=== PATIENT | male | born 1960 | race Caucasian/White ===

== ENCOUNTER 2022-07-26 19:44 | Inpatient (IN) | payer BC, SELFPAY ==
[2022-07-26 19:58] VITALS: BP 134/86; PULSE 89; RESP 22; TEMP 36.6; O2SAT 95; BMI 26.0
--- NOTE | 2022-07-26 20:28 | XR_ITS ---
The [address] [address] Patient Name: BOBBY GRAJEDA MRN: [id number] date: 1960 Sex: M Assigned Patient Location: ER Current Patient Location: ER Accession/Order Number: [id number] Exam Date: 07/26/2022 20:29 Report Date: 07/26/2022 21:38 At the request of: BRENNON MOBLEY Procedure: XR chest 1V EXAM: XR chest 1V HISTORY: Altered mental status COMPARISON: 06/19/2021 TECHNIQUE: Frontal view of the chest. FINDINGS: There is a left upper lobe opacity measuring approximately 2.6 cm. This appears larger since the prior study where it measured approximately 1.8 cm. No pleural effusions. Cardiac mediastinal silhouette is unremarkable. Visualized osseous structures are unremarkable. IMPRESSION: Left upper lobe opacity which has increased in size since the prior study and may represent a pulmonary mass. Further evaluation with chest CT is recommended. Electronically authenticated by: ABEL LUU Date: 07/26/2022 21:38
--- NOTE | 2022-07-26 20:28 | ECG_ITS ---
The [facility] Test Date: 2022-07-26 Pat Name: BOBBY GRAJEDA Department: Room: - Gender: Male [place]: : 1960 Requested By: BELINDA JONES Order Number: [id number] Reading MD: NAYA COYLE Measurements Intervals [place] Rate: 90 P: 245 MT: 120 QRS: 67 QRSD: 92 T: -80 QT: 350 QTc: 398 Interpretive Statements 1002 Marked rhythm irregularity, possible non-conducted PAC, SA block, AV block, or sinus pause 1220 Rapid atrial rhythm 1570 with occasional ventricular premature complexes [address] depression 4564 Twave abnormality, possible lateral ischemia 4664 Twave abnormality, possible inferior ischemia 9150 abnormal ECG No previous ECG available for comparison Electronically Signed On 07-26-2022 22:54:19 EDT by NAYA COYLE
--- NOTE | 2022-07-26 20:28 | CT_ITS ---
The [address] [address] Patient Name: BOBBY GRAJEDA MRN: [id number] date: 1960 Sex: M Assigned Patient Location: ER Current Patient Location: ER Accession/Order Number: [id number] Exam Date: 07/26/2022 20:29 Report Date: 07/26/2022 21:45 At the request of: BRENNON MOBLEY Procedure: CT stroke head/brain wo con EXAMINATION: CT stroke head/brain wo con, 07/26/2022 8:29 PM EDT HISTORY: slurred speech COMPARISON: CT brain 06/19/2021. TECHNIQUE: CT scan of the head was performed without IV contrast. CT dose reduction technique was used, including Automated Exposure Control. FINDINGS: BRAIN PARENCHYMA/CSF SPACES: The ventricles and sulci appear moderately to severely prominent consistent with atrophy which appears advanced for age. There is no hemorrhage, mass effect or midline shift. Moderate atherosclerotic carotid artery calcification. Mild low-attenuation in the white matter consistent with chronic microvascular ischemia. Small hypodensities in bilateral basal ganglia suggestive of dilated perivascular spaces and/or chronic lacunar infarcts, stable. PARANASAL SINUSES: Mild fluid in the right ethmoid air cells consistent with sinusitis. SKULL BASE AND CALVARIUM: Normal. EXTRACRANIAL SOFT TISSUES: Normal. IMPRESSION: 1. No acute intracranial abnormality. 2. Moderate to severe age advanced atrophy. 3. Atherosclerotic calcification and chronic microvascular ischemia. 4. Stable small bilateral basal ganglia dilated perivascular spaces and/or chronic lacunar infarcts. 5. Mild ethmoid sinusitis. Electronically authenticated by: LEIGH CHAMPION Date: 07/26/2022 21:45
--- NOTE | 2022-07-26 20:30 | ED.WEAKNESS1 ---
HPI - Weakness General Chief complaint: Weakness Stated complaint: weakness, not eating Time Seen by Provider: 07/26/22 20:03 Source: patient and family Mode of arrival: walk-in Limitations: no limitations History of Present Illness HPI Narrative: Patient is a 62-year-old male who presents to the emergency department for the evaluation of generalized weakness over the last several weeks with decreasing oral intake, and slurred speech noted by family in the last several days. Patient has a history of daily alcohol consumption. He denies any falls or injuries. He denies any chest pain, shortness breath, fevers, chills, congestion. He has had decreased oral intake and states nothing tastes good . He has also had a film in the roof of his mouth for some time. He denies any urinary symptoms although family reports he does not eat or drink well. He denies headache, visual changes. Patient does not believe that his speech is slurred. He has had no unilateral weakness but states his extremities feel generally weak and he is having trouble walking, family states he is unsteady. Related Data Home Medications Medication Instructions Recorded Confirmed metoprolol succinate 50 mg 50 mg PO BID 07/26/22 07/26/22 tablet,extended release 24 hr Allergies Allergy/AdvReac Type Severity Reaction Status Date / Time No Known Drug Allergies Allergy Verified 07/26/22 20:07 Review of Systems ROS Constitutional Denies: fever or chills Eyes Denies: change in vision Ears, nose, mouth, and throat Reports: dry mouth and bad breath Cardiovascular Denies: chest pain Respiratory Reports: cough; Denies: shortness of breath Gastrointestinal Denies: abdominal pain, nausea or vomiting Genitourinary Reports: decreased urine ouput Integumentary/Breast Reports: rash Neurological Denies: headache PFSH PFSH Social History Smoking status: Current every day smoker Exam Narrative Exam Narrative: Gen.: Awake, alert, in no distress Head: Normocephalic, atraumatic ENT: Moist mucous membranes Respiratory: No respiratory distress, lungs clear bilaterally Cardio: Regular rate and rhythm Gastrointestinal: Abdomen is soft, nondistended and nontender to palpation Extremities: Moves extremities equally, no injuries noted Psych: Normal mood and affect Neuro: No focal neuro deficit, generally weak but no pronator drift noted. Left eyelid drooping noted that is chronic for the patient and not new or worse Skin: Warm, dry, intact Constitutional Vital Signs - 24 hr 07/26/22 19:58 07/26/22 21:04 Temperature 97.8 F Pulse Rate [Monitor] 89 78 Respiratory Rate 22 22 Blood Pressure [Left Arm] 134/86 H 135/80 H Pulse Oximetry 95 94 L Oxygen Delivery Method Room Air Room Air Course Vital Signs Vital signs: Vital Signs Temperature 97.8 F 07/26/22 19:58 Pulse Rate 89 07/26/22 19:58 Respiratory Rate 22 07/26/22 19:58 Blood Pressure 134/86 H 07/26/22 19:58 Pulse Oximetry 95 07/26/22 19:58 Oxygen Delivery Method Room Air 07/26/22 19:58 Temperature 97.9 F 07/26/22 23:59 Pulse Rate 92 H 07/27/22 00:00 Respiratory Rate 14 07/26/22 23:59 Blood Pressure 129/82 H 07/26/22 23:59 Pulse Oximetry 92 L 07/26/22 23:59 Oxygen Delivery Method Room Air 07/26/22 23:59 MDM - Weakness MDM Narrative Medical decision making narrative: Patient was treated with IV fluids in the Emergency Room, he was ordered to have a CT of the brain, chest x-ray as well as lab and urine studies. EKG shows artifact with no obvious acute process. As labs were resulting, patient was noted to have several significant electrolyte abnormalities with a potassium of 1.3, calcium 5.7 and chloride eighty-one. The potassium was repeated to verify and is accurate. Patient was treated with oral potassium, K-Lyte. He was also given IV potassium, IV calcium and IV magnesium. CT of the brain is unremarkable, chest x-ray shows an opacity in the left upper lobe of the lung consistent with a possible malignancy which is increased from previous imaging. This will require additional CT imaging. Patient is resting comfortably in the Emergency Room with stable vital signs. He will be admitted for electrolyte abnormalities, we are awaiting the hospitalist for admission. Case is turned over to attending physician for admission. Medical Records Attestation: I reviewed the patient's medical records. Lab Data Attestation: I reviewed the patient's lab results. Labs: Lab Results 06/19/23 06/19/23 06/19/23 Range/Units 20:20 21:20 21:24 WBC 14.2 H (4.0-11.0) 10^3/uL RBC 3.10 L (4.70-6.10) 10^6/uL Hgb 10.0 L (14.0-18.0) g/dL Hct 27.9 L (42.0-54.0) % MCV 90.0 (80.0-94.0) fL MCH 32.3 (25.9-34.0) pg MCHC 35.8 H (29.9-35.2) g/dL RDW 13.9 (11.0-15.0) % Plt Count 475 H (150-450) 10^3/uL MPV 9.6 (9.5-13.5) fL Neut % (Auto) 89.0 H (43.0-75.0) % Lymph % (Auto) 4.9 L (20.5-60.0) % [place] % (Auto) 4.2 (1.7-12.0) % Eos % (Auto) 0.4 L (0.9-7.0) % Baso % (Auto) 0.3 (0.2-2.0) % Neut # (Auto) 12.7 H (1.4-6.5) 10^3/uL Lymph # (Auto) 0.7 L (1.2-3.8) 10^3/uL [place] # (Auto) 0.6 (0.3-0.8) 10^3/uL Eos # (Auto) 0.1 (0.0-0.7) 10^3/uL Baso # (Auto) 0.0 (0.0-0.1) 10^3/uL Abs Immat Gran (auto) 0.17 H (0.00-0.03) 10^3/uL Imm/Tot Granulo (auto) 1.2 H (0.0-0.5) % Sodium 128 L (136-145) mmol/L Potassium 1.3 L* 1.3 L* (3.5-5.1) mmol/L Chloride 81 L* (98-107) mmol/L Carbon Dioxide 32.9 H (21.0-32.0) mmol/L Anion Gap 15.4 BUN 24.0 H (7.0-18.0) mg/dL Creatinine 1.34 H (0.70-1.30) mg/dL Est GFR ( Amer) >60 (>=60) Est GFR (Non-Af Amer) 54 L (>=60) BUN/Creatinine Ratio 17.9 Glucose 122 H (74-106) mg/dL Lactate 2.8 H* (0.4-2.0) mmol/L Calcium 5.7 L* (8.5-10.1) mg/dL Magnesium 0.5 L* (1.8-2.4) mg/dL Total Bilirubin 2.0 H (0.2-1.0) mg/dL AST 154 H (15-37) U/L ALT 85 H (16-63) U/L Alkaline Phosphatase 75 (46-116) U/L Ammonia 31 (11-32) umol/L Troponin I High Sens 51.7 (4.0-76.1) pg/mL Total Protein 6.7 (6.4-8.2) g/dL Albumin 2.3 L (3.4-5.0) g/dL Globulin 4.4 g/dL Albumin/Globulin Ratio 0.5 TSH 0.788 (0.358-3.740) uIU/mL Ethanol Quant <3 mg/dL Imaging Data CT scan - head: Radiologist's impression: [place] [address] CT Scan Report Draft Patient: BOBBY GRAJEDA MR#: [id number] : 1960 Acct:[id number] Age/Sex: 62 / M ADM Date: 07/26/22 Loc: ER Attending Dr: Ordering Physician: Lisa Mobley Date of Service: 07/26/22 Procedure(s): CT stroke head/brain wo con Accession Number(s): [id number] cc: ~ ? The [facility] ?? ? [address] [place] [address] ?? ? [place] [address] ? Patient Name: BOBBY GRAJEDA ? MRN: [id number]? ? date: 1960? ? Sex: M Assigned Patient Location: ER Current Patient Location: ER Accession/Order Number: [id number] Exam Date: 07/26/2022? 20:29? ? Report Date: 07/26/2022? 21:33 ? At the request of: NATALIIA MOBLEY? ? Procedure:? CT stroke head/brain wo con ? Initial impression only. ? IMPRESSION: ? 1. No acute intracranial abnormality. 2. Moderate to severe age advanced atrophy. 3. Atherosclerotic calcification and chronic microvascular ischemia. 4. Stable small bilateral basal ganglia dilated perivascular spaces and/or chronic lacunar infarcts. 5. Mild ethmoid sinusitis. ? ? Electronically authenticated by: YAN CHAMPION ? Date: 07/26/2022? 21:33 ? Chest x-ray: Attestation: I have reviewed the pertinent imaging results. Radiologist's impression: Procedure: XR chest 1V EXAM: XR chest 1V HISTORY: Altered mental status COMPARISON: 06/19/2021 TECHNIQUE: Frontal view of the chest. FINDINGS: There is a left upper lobe opacity measuring approximately 2.6 cm. This appears larger since the prior study where it measured approximately 1.8 cm. No pleural effusions. Cardiac mediastinal silhouette is unremarkable. Visualized osseous structures are unremarkable. IMPRESSION: Left upper lobe opacity which has increased in size since the prior study and may represent a pulmonary mass. Further evaluation with chest CT is recommended. Electronically authenticated by: ABEL LUU Date: 07/26/2022 21:38 ECG Data Attestation: ?I have reviewed the pertinent ECG results. (Normal sinus rhythm at a rate of ninety, artifact noted with no acute ST elevation. Occasional PVC. First-degree AV block noted. EKG reviewed by attending physician.) ECG interpretation date: 07/26/22 ECG interpretation time: 21:37 Discharge Plan Discharge Chief Complaint: Weakness Clinical Impression: Generalized weakness, Lung mass, Acute hypokalemia, Hypomagnesemia, Hypocalcemia Patient Disposition: Admitted As Inpatient Time of Disposition Decision: 22:10 Condition: Serious Discharge Date/Time: 07/26/22 23:00
[2022-07-26 20:37] LABS: Basophils Percent Auto 0.3 % (0.2-2.0); Eosinophils Absolute Auto 0.1 10^3/uL (0.0-0.7); Eosinophils Percent Auto 0.4 % (0.9-7.0); Hematocrit 27.9 % (42.0-54.0); Immature Granulocytes Abs Auto 0.17 10^3/uL (0.00-0.03); Immature Granulocytes Pct Auto 1.2 % (0.0-0.5); Lymphocytes Absolute Auto 0.7 10^3/uL (1.2-3.8); Lymphocytes Percent Auto 4.9 % (20.5-60.0); Mean Corpuscular HGB Conc 35.8 g/dL (29.9-35.2); Mean Corpuscular Hemoglobin 32.3 pg (25.9-34.0); Mean Platelet Volume 9.6 fL (9.5-13.5); Monocytes Absolute Auto 0.6 10^3/uL (0.3-0.8); Monocytes Percent Auto 4.2 % (1.7-12.0); Neutrophils Absolute Auto 12.7 10^3/uL (1.4-6.5); Platelet Count 475 10^3/uL (150-450); Red Cell Distribution Width 13.9 % (11.0-15.0); White Blood Count 14.2 10^3/uL (4.0-11.0)
[2022-07-26 20:50] LABS: Ammonia 31 umol/L (11-32)
[2022-07-26] MEDS: 0.9 % SODIUM CHLORIDE 1,000 ML 999 ML IV (21:00)
[2022-07-26 21:03] LABS: Alanine Aminotransferase 85 U/L (16-63); Albumin Globulin Ratio 0.5; Albumin Level 2.3 g/dL (3.4-5.0); Alkaline Phosphatase 75 U/L (46-116); Anion Gap 15.4; Aspartate Amino Transferase 154 U/L (15-37); BUN Creatinine Ratio 17.9; Carbon Dioxide 32.9 mmol/L (21.0-32.0); Estimated GFR (African America >60 (>=60); Estimated GFR (Non-African Ame 54 (>=60); Ethanol <3 mg/dL; Globulin 4.4 g/dL; Glucose 122 mg/dL (74-106); Sodium 128 mmol/L (136-145); Thyroid Stimulating Hormone 0.788 uIU/mL (0.358-3.740); Total Protein 6.7 g/dL (6.4-8.2); Troponin I High Sensitivity 51.7 pg/mL (4.0-76.1)
[2022-07-26 21:04] VITALS: BP 135/80; PULSE 78; RESP 22; O2SAT 94
[2022-07-26 21:05] LABS: Calcium 5.7 mg/dL (8.5-10.1); Chloride 81 mmol/L (98-107); Lactate/Lactic Acid 2.8 mmol/L (0.4-2.0); Potassium 1.3 mmol/L (3.5-5.1)
[2022-07-26 21:42] LABS: Potassium 1.3 mmol/L (3.5-5.1)
[2022-07-26 22:01] LABS: Magnesium 0.5 mg/dL (1.8-2.4)
[2022-07-26] MEDS: POTASSIUM BICARBONATE/CIT 25 MEQ TABLET EFF 50 MEQ PO (22:07)
[2022-07-26] MEDS: POTASSIUM CHLORIDE IN 0.9%NACL 1,000 ML 250 MEQ IV (22:07)
[2022-07-26] MEDS: CALCIUM GLUC IN NACL ISO OSM IV (22:09)
[2022-07-26] MEDS: MAGNESIUM SULFATE IN WATER 50 ML IV (22:45)
[2022-07-26 23:59] VITALS: BP 129/82; PULSE 84; RESP 14; TEMP 36.6; O2SAT 92; BMI 21.1
[2022-07-27] VITALS (25 sets, daily range): BP systolic 147–170; BP diastolic 75–95; PULSE 72–96; RESP 16–18; TEMP 36.3–36.9; O2SAT 77–95; BMI 22.8
--- NOTE | 2022-07-27 01:52 | P.PN_ITS ---
Progress Note: Subjective Subjective Interval history: weakness, difficulty walking HPI:this is a 62-year-old male who presents to the emergency department for the evaluation of generalized weakness over the last several weeks. Patient endorses decreasing oral intake. Additionally slurred speech noted by family in the last several days. Patient has a history of daily alcohol consumption. He denies any falls or injuries. He denies any chest pain, shortness breath, fevers, chills, congestion. He has had decreased oral intake and states nothing tastes good . He has also had a film in the roof of his mouth for some time. He denies any urinary symptoms although family reports he does not eat or drink well. He denies headache, visual changes. Patient does not believe that his speech is slurred. He has had no unilateral weakness but states his extremities feel generally weak and he is having trouble walking, family states he is unsteady. Evaluation in ED significant for profound electrolite derangements as well as presence of the TRISTEN mass (chronic). Exam Constitutional Vital Signs - 24 hr 07/26/22 19:58 07/26/22 21:04 07/26/22 23:59 Temperature 97.8 F 97.9 F Pulse Rate 84 Pulse Rate [Monitor] 89 78 Respiratory Rate 22 22 14 Blood Pressure [Left Arm] 134/86 H 135/80 H Blood Pressure [Right Arm] 129/82 H Pulse Oximetry 95 94 L 92 L Oxygen Delivery Method Room Air Room Air 07/27/22 00:00 07/26/22 23:59 07/26/22 23:59 Temperature Pulse Rate 92 H Pulse Rate [Monitor] Respiratory Rate 14 14 Blood Pressure [Left Arm] Blood Pressure [Right Arm] Pulse Oximetry 92 L Oxygen Delivery Method Room Air Common normals: no apparent distress, oriented x3 and healthy appearing (thin stature, frail) General appearance: cooperative, comfortable, frail appearing and appears older than stated age Nutritional appearance: thin Orientation/consciousness: Yes awake, Yes oriented to person and Yes oriented to place [facility] Common normals: normocephalic and head/scalp atraumatic Head and scalp: normal to inspection and normocephalic Face and sinus: normal facial exam Nose: external nose normal External ear: external ears normal Tympanic membrane: TMs normal bilaterally Mouth: oral and palatal mucosa normal (whitish/graish film, possibly trush) and tongue normal Neck & C-Spine Common normals: full ROM and no lymphadenopathy Chest Common normals: inspection of chest normal Respiratory Common normals: normal respiratory effort and no retractions Effort & inspection: able to speak in complete sentences Cardio Common normals: no JVD, regular rate and regular rhythm GI Common normals: Normal to inspection, nondistended, normoactive bowel sounds present Inspection: visible pulsation Auscultation: normoactive bowel sounds Extremity Common normals: normal to inspection, full ROM and no pedal edema (b/l ++ edema) Progress Note: Objective Labs Labs: Short CBC 07/26/22 Range/Units 20:20 WBC 14.2 H (4.0-11.0) 10^3/uL Hgb 10.0 L (14.0-18.0) g/dL Hct 27.9 L (42.0-54.0) % Plt Count 475 H (150-450) 10^3/uL BMP 07/26/22 07/26/22 20:20 21:24 Sodium 128 L Potassium 1.3 L* 1.3 L* Chloride 81 L* Carbon Dioxide 32.9 H BUN 24.0 H Creatinine 1.34 H Glucose 122 H Calcium 5.7 L* Liver Function 07/26/22 Range/Units 20:20 Total Bilirubin 2.0 H (0.2-1.0) mg/dL AST 154 H (15-37) U/L ALT 85 H (16-63) U/L Alkaline Phosphatase 75 (46-116) U/L Albumin 2.3 L (3.4-5.0) g/dL Progress Note: A&P Assessment and Plan (1) Adult failure to thrive: Assessment and Plan: multifactorial - treat underlying causes (2) Generalized weakness: Assessment and Plan: as above, malnutrition due to ETOHism, 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 No EKG changes. Replaece, monitor on tele (5) Hypomagnesemia: Assessment and Plan: as above, replacing (6) Hypocalcemia: Assessment and Plan: as above, calculated based on ALbumin/Ptrotein levels Plan ETOHism with impending WD - started o WA protocol utilizing Lorazepam administration based on scoring Telemedicine Attestation Telemedicine Attestation I conducted this encounter from [[place]] via secure live, [id number] video conference with the patient, CHARGE TEST-CHARGES located at [facility] with [Hyponatremia]. Prior to the interview, the risks and benefits of telemedicine were discussed with the patient and verbal consent was obtained.
[2022-07-27 02:03] LABS: C Reactive Protein 11.6 mg/dL (<=1.0)
[2022-07-27 02:04] LABS: Triglycerides 126 mg/dL (<=150)
[2022-07-27] MEDS: POTASSIUM CHLORIDE IN 0.9%NACL 1,000 ML 250 MEQ IV ×2 (02:33→06:21)
[2022-07-27] MEDS: NYSTATIN 500,000 UNIT/5 ML ORAL.SUSP 500000 UNIT PO ×4 (06:11→21:24)
[2022-07-27 07:12] LABS: Alanine Aminotransferase 62 U/L (16-63); Albumin Globulin Ratio 0.5; Albumin Level 1.8 g/dL (3.4-5.0); Alkaline Phosphatase 62 U/L (46-116); Anion Gap 14.5; Aspartate Amino Transferase 105 U/L (15-37); BUN Creatinine Ratio 20.9; Bilirubin Total 1.3 mg/dL (0.2-1.0); Carbon Dioxide 30.1 mmol/L (21.0-32.0); Chloride 90 mmol/L (98-107); Estimated GFR (African America >60 (>=60); Estimated GFR (Non-African Ame >60 (>=60); Globulin 3.8 g/dL; Glucose 96 mg/dL (74-106); Sodium 133 mmol/L (136-145); Total Protein 5.6 g/dL (6.4-8.2)
[2022-07-27 07:14] LABS: Basophils Percent Auto 0.2 % (0.2-2.0); Eosinophils Absolute Auto 0.1 10^3/uL (0.0-0.7); Eosinophils Percent Auto 0.4 % (0.9-7.0); Hemoglobin 8.3 g/dL (14.0-18.0); Immature Granulocytes Abs Auto 0.08 10^3/uL (0.00-0.03); Immature Granulocytes Pct Auto 0.7 % (0.0-0.5); Lymphocytes Absolute Auto 0.9 10^3/uL (1.2-3.8); Lymphocytes Percent Auto 7.5 % (20.5-60.0); Mean Corpuscular HGB Conc 35.6 g/dL (29.9-35.2); Mean Corpuscular Hemoglobin 32.7 pg (25.9-34.0); Mean Corpuscular Volume 91.7 fL (80.0-94.0); Mean Platelet Volume 9.7 fL (9.5-13.5); Monocytes Absolute Auto 0.6 10^3/uL (0.3-0.8); Monocytes Percent Auto 4.9 % (1.7-12.0); Neutrophils Absolute Auto 10.2 10^3/uL (1.4-6.5); Neutrophils Percent Auto 86.3 % (43.0-75.0); Platelet Count 368 10^3/uL (150-450); Red Blood Count 2.54 10^6/uL (4.70-6.10); White Blood Count 11.8 10^3/uL (4.0-11.0)
[2022-07-27 07:15] LABS: Lactate/Lactic Acid 1.1 mmol/L (0.4-2.0)
[2022-07-27 07:19] LABS: Calcium 5.4 mg/dL (8.5-10.1); Potassium 1.6 mmol/L (3.5-5.1)
[2022-07-27 07:23] LABS: Hematocrit 23.3 % (42.0-54.0)
--- NOTE | 2022-07-27 08:42 | CT_ITS ---
[address] [address] Patient Name: BOBBY GRAJEDA MRN: [id number] date: 1960 Sex: M Assigned Patient Location: MS Current Patient Location: MS Accession/Order Number: [id number] Exam Date: 07/27/2022 09:58 Report Date: 07/27/2022 14:18 At the request of: ERIKA MAYER Procedure: CT chest wo con EXAMINATION: CT chest wo con HISTORY: TRISTEN mass seen on chest x-ray COMPARISON: XR chest 07/26/2022 TECHNIQUE: Multi-planar CT images were obtained without and/or with IV contrast as indicated by examination type. Axial, Coronal, and Sagittal images. Dose reduction techniques were achieved by using automated exposure control and/or adjustment of mA and/or kV according to patient size and/or use of iterative reconstruction technique. FINDINGS: LUNGS: Within lateral left lung apex is a 3.1 x 2.1 x 2.6 cm partially cavitary spiculated mass. Multiple blebs and bulla within lung apices. Mild atelectasis or infiltrates within lateral left lung base. PLEURA: No mass, effusion, or pneumothorax. VASCULATURE: No abnormality. KIRA: No mass or adenopathy. MEDIASTINUM: No mass or adenopathy. CARDIAC: No enlargement, pericardial thickening, or significant calcification. AORTA: Slight aneurysmal dilation of the distal arch/proximal ascending aorta, 3.9 cm in diameter. CHEST WALL: No mass or axillary adenopathy. BONES: Slight vertebral body height reduction of T4 compared to T3 and T5 without fracture or increased trabecular density. LIMITED ABDOMEN: Fatty infiltration of the liver. Limited images of the upper abdomen. OTHER: Negative. IMPRESSION: 1. Spiculated 3.1 cm mass within left lung apex is 4 malignancy. No additional mass/nodules or lymphadenopathy. 2. Mild aneurysmal dilation of the distal aortic arch and proximal ascending aorta, 3.9 cm. 3. T4 vertebral body is shorter than adjacent segments; remote compression fracture versus developmental. 4. Fatty infiltration of liver. Electronically authenticated by: LEIGH PUCKETT Date: 07/27/2022 14:18
--- NOTE | 2022-07-27 08:45 | PM.HP ---
H&P: HPI History of Present Illness Chief complaint: weakness, not eating, hypokalemia Narrative: patient is a 62-year-old gentleman who presented to the Emergency Room last night after family specifically daughter was concerned about patient's decline. Patient has become very weak, poor appetite has been having a cough and states that's been going on for about a year has experienced some weight loss and cachexia, and poor appetite. He said he has been experiencing some night sweats as well. His ex- who lived with him recently within the last month and she also helps care for him. He currently lives alone with two dogs and reports that he has been a daily drinker for several years he admits to six or more beers a day or more than a 5th of vodka a day. He has never tried to quit in the past but denies having any history of delirium tremens or seizure alcohol withdrawal history. He does admit to drinking prior to admission last night. A blood alcohol level was less than three. on Chest x-ray there was a finding of a left upper lung mass patient reports he doesn't follow much with any doctors he has seen Dr. Crowder in the past. He has also been a smoker for many years. He has been experiencing some sore throat and mouth irritation to the point where he has picked off some discharge in his throat. He denies having any liver cirrhosis, any bleeding from vomiting or stool. He was also found to be severely hypokalemic hypo-magnesium at and hypocalcemia. Low albumin that shows significant cachexia and failure to thrive. He also denies any previous history of hepatitis or HIV. Denies any history of IV drug use Review of Systems ROS Narrative ROS: a complete review of systems were reviewed with patient and are positive as below or listed in History of Chief Complaint. General: no fever, chills,but yes night sweats Head: no headache, trauma, visual changes, nausea or vomiting Skin: no reported rashes, itching or sores Eyes: no blurriness of vision Ears: no reported hearing loss, vertigo, earache, or tinnitus Throat: sore throat with some hoarseness, no swelling of neck, but some tongue pain Heart: no chest pain Lungs: no shortness of breath but cough x 1 year GI: no diarrhea or vomiting/nausea Urinary: no urinary urgency, frequency or pain Neuro: no numbness or tingling HEM: no bleeding issues or bruising ENDO: no thyroid problems Psych: no anxiety or depression PFSH PFSH Social History Smoking status: Current every day smoker Meds Home Medications and Allergies Home Medications Medication Instructions Recorded Confirmed Type metoprolol succinate 50 mg 50 mg PO BID 07/26/22 07/26/22 History tablet,extended release 24 hr Allergies Allergy/AdvReac Type Severity Reaction Status Date / Time No Known Drug Allergies Allergy Verified 07/26/22 20:07 Exam Narrative Exam Narrative: General: Patient is alert, and oriented to person, place and time with severe cachexia Skin: skin pallor Head: atraumatic, acephalic Eyes: PERRLA, no nystagmus present, conjunctiva clear, no scleral icterus Ears: normal gross auditory acuity Nose: symmetric, no discharge, no maxillary or frontal sinus tenderness Mouth/Throat: diffuse erythema, with white exudate Neck: no masses palpated, normal thyroid, no JVD or audible carotid bruits Heart: Normal rate and rhythm, no murmurs/rubs/gallops Lungs: no audible wheezes, crackles and normal breath sounds all lung hi Abdomen: Normal audible bowel sounds, no distension, No palpable masses, no organomegaly, no rebound/guarding/ or rigidity Musculoskeletal: muscle atrophy noted, no swelling bilateral lower extremities Neuro: CN II-X grossly intact, normal sensation upper and lower extremities Constitutional Vital Signs - 24 hr 07/26/22 19:58 07/26/22 21:04 07/26/22 23:59 Temperature 97.8 F 97.9 F Pulse Rate 84 Pulse Rate [Monitor] 89 78 Respiratory Rate 22 22 14 Blood Pressure Blood Pressure [Left Arm] 134/86 H 135/80 H Blood Pressure [Right Arm] 129/82 H Pulse Oximetry 95 94 L 92 L Oxygen Delivery Method Room Air Room Air 07/27/22 00:00 07/26/22 23:59 07/26/22 23:59 Temperature Pulse Rate 92 H Pulse Rate [Monitor] Respiratory Rate 14 14 Blood Pressure Blood Pressure [Left Arm] Blood Pressure [Right Arm] Pulse Oximetry 92 L Oxygen Delivery Method Room Air 07/27/22 02:00 07/27/22 04:00 07/27/22 05:41 Temperature 97.4 F L Pulse Rate 76 72 77 Pulse Rate [Monitor] Respiratory Rate 18 Blood Pressure Blood Pressure [Left Arm] Blood Pressure [Right Arm] 151/87 H Pulse Oximetry 95 Oxygen Delivery Method Room Air 07/27/22 06:00 07/27/22 06:08 07/27/22 07:35 Temperature Pulse Rate 77 Pulse Rate [Monitor] 81 Respiratory Rate 16 Blood Pressure 168/85 H Blood Pressure [Left Arm] Blood Pressure [Right Arm] Pulse Oximetry Oxygen Delivery Method 07/27/22 07:35 07/27/22 07:41 07/27/22 08:10 Temperature 97.7 F Pulse Rate 81 77 Pulse Rate [Monitor] Respiratory Rate 16 Blood Pressure 158/85 H Blood Pressure [Left Arm] Blood Pressure [Right Arm] 158/85 H Pulse Oximetry 92 L Oxygen Delivery Method Room Air 07/27/22 08:12 Temperature Pulse Rate Pulse Rate [Monitor] Respiratory Rate 16 Blood Pressure Blood Pressure [Left Arm] Blood Pressure [Right Arm] Pulse Oximetry Oxygen Delivery Method Results Labs Labs: Short CBC 07/26/22 07/27/22 Range/Units 20:20 06:45 WBC 14.2 H 11.8 H (4.0-11.0) 10^3/uL Hgb 10.0 L 8.3 L (14.0-18.0) g/dL Hct 27.9 L 23.3 L* (42.0-54.0) % Plt Count 475 H 368 (150-450) 10^3/uL BMP 07/26/22 07/26/22 07/27/22 20:20 21:24 06:45 Sodium 128 L 133 L Potassium 1.3 L* 1.3 L* 1.6 L* Chloride 81 L* 90 L Carbon Dioxide 32.9 H 30.1 BUN 24.0 H 18.0 Creatinine 1.34 H 0.86 Glucose 122 H 96 Calcium 5.7 L* 5.4 L* Liver Function 07/26/22 07/27/22 Range/Units 20:20 06:45 Total Bilirubin 2.0 H 1.3 H (0.2-1.0) mg/dL AST 154 H 105 H (15-37) U/L ALT 85 H 62 (16-63) U/L Alkaline Phosphatase 75 62 (46-116) U/L Albumin 2.3 L 1.8 L (3.4-5.0) g/dL Assessment and Plan Assessment and Plan (1) Adult failure to thrive: Assessment and Plan: patient with a low albumin, signifying significant malnourishment as well as several electrolyte abnormalities, will get a dietary nutrition consult. Could be from possible lung cancer or significant history of alcoholism (2) Generalized weakness: Assessment and Plan: related to his malnourishment and multiple vitamin deficiencies (3) Mass of upper lobe of left lung: Assessment and Plan: CT scan is concerning for malignancy, will consult oncology for further plan of care (4) Acute hypokalemia: Assessment and Plan: and tinea to replace IV and oral potassium, recheck potassium level every six hours (5) Hypomagnesemia: Assessment and Plan: continue to replace IV and oral magnesium (6) Hypocalcemia: Assessment and Plan: continue to replace IV and oral calcium (7) Alcoholic: Assessment and Plan: wanted her for any signs of withdrawal or seizure activity. Patient has no prior history of DTs or seizures. Plan patient is a full code Patient will be admitted to inpatient status and is expected to stay more than to midnight will be placed on Protonix for gastrointestinal prophylaxis
[2022-07-27] MEDS: PANTOPRAZOLE SODIUM 40 MG VIAL IV (09:27)
[2022-07-27] MEDS: MULTIVITAMIN TABLET 400 TAB PO (09:28)
[2022-07-27] MEDS: MAGNESIUM OXIDE 400 MG TABLET PO ×2 (09:28→21:25)
[2022-07-27] MEDS: FOLIC ACID 1 MG TABLET PO (09:28)
[2022-07-27] MEDS: THIAMINE MONONITRATE (VIT B1) 100 MG TABLET PO (09:28)
[2022-07-27] MEDS: METOPROLOL SUCCINATE 50 MG TAB.ER.24H PO ×2 (09:28→21:25)
[2022-07-27 12:33] LABS: HIV Antigen NON-REACTIVE (NONREACTIVE)
[2022-07-27] MEDS: POTASSIUM CHLORIDE 40 MEQ in 0.9 % SODIUM CHLORIDE 1,000 ML 250 MEQ IV ×3 (12:39→21:54)
--- NOTE | 2022-07-27 12:39 | CM.NOTE ---
Rounds made with Dr. Mari. Dr. Mari explained tests results and further tests to be ordered. Mr. Velazco verbalizes understanding.
--- NOTE | 2022-07-27 13:03 | NUTR.NU ---
Spoke with Vic to verify Potassium IV dose. Ordered 250ml /hr that runs 100MEQ/hr per pump. She stated there is only 40MEQ per bag and it needs to be ran at 250ml/hr. Vic advised that the pump should read 10meq per hour not 100. Infusion is running at 250ml/hr of potassium 40meq in 1000ml bag.
--- NOTE | 2022-07-27 14:04 | SWNOTE1 ---
SW met with pt to discuss dc needs. Pt lives at home by himself. His daughter does come check on him at times, she is the one who made him go to the hospital, according to patient. Pt had a cane beside him in the chair, SW asked if he used his cane at home? Pt stated he does not always use it, it was his 's who . Pt then spoke about his passing away and then hurting his back, he stated just had a rough few months. SW then spoke with pt about therapy working with him here and him possibly needing HH. SW explained to pt what Home health was, pt then stated he does not feel he needs that and also stated he has dogs in the home as well. SW encouraged pt to try HH as it would help get him stronger and once he met his goals then HH services would be done. At this time pt is refusing Home Health and does not feel he will need it. LANDON then addressed pt's drinking at home. Pt stated he is not sure how much he drinks daily, but he knows he has been drinking more and that he needs to cut back. LANDON asked again about his support system and he stated his daughter. LANDON asked if daughter was aware he drinks and he stated yes that is also why she made him come to hospital. LANDON asked if pt would like to go to any kind of rehab for alcohol, at this time pt is refusing. LANDON asked if pt would like to any information/resources for AA meetings or outpt counseling. At this time pt is refusing. LANDON let pt know SW will be back tomorrow to see if he would like any resources or HH. At this time pt is refusing home health, alcohol rehab, and alcohol resources,
[2022-07-27] MEDS: POTASSIUM CHLORIDE 10 MEQ ER TABLET 20 MEQ PO ×2 (14:09→21:25)
--- NOTE | 2022-07-27 16:26 | PM.CN ---
Consult Note: HPI Data of Consult Requesting Physician: Olivia Mari DO Primary Care Provider: BELINDA JONES Consult Narrative cc:: CC: Olivia Mari DO PFSH PFSH Social History Smoking status: Current every day smoker Meds Home Medications and Allergies Home Medications Medication Instructions Recorded Confirmed Type metoprolol succinate 50 mg 50 mg PO BID 07/26/22 07/26/22 History tablet,extended release 24 hr Allergies Allergy/AdvReac Type Severity Reaction Status Date / Time No Known Drug Allergies Allergy Verified 07/26/22 20:07 Exam Constitutional Vital Signs - 24 hr 07/26/22 19:58 07/26/22 21:04 07/26/22 23:59 Temperature 97.8 F 97.9 F Pulse Rate 84 Pulse Rate [Monitor] 89 78 Respiratory Rate 22 22 14 Blood Pressure Blood Pressure [Left Arm] 134/86 H 135/80 H Blood Pressure [Right Arm] 129/82 H Pulse Oximetry 95 94 L 92 L Oxygen Delivery Method Room Air Room Air 07/27/22 00:00 07/26/22 23:59 07/26/22 23:59 Temperature Pulse Rate 92 H Pulse Rate [Monitor] Respiratory Rate 14 14 Blood Pressure Blood Pressure [Left Arm] Blood Pressure [Right Arm] Pulse Oximetry 92 L Oxygen Delivery Method Room Air 07/27/22 02:00 07/27/22 04:00 07/27/22 05:41 Temperature 97.4 F L Pulse Rate 76 72 77 Pulse Rate [Monitor] Respiratory Rate 18 Blood Pressure Blood Pressure [Left Arm] Blood Pressure [Right Arm] 151/87 H Pulse Oximetry 95 Oxygen Delivery Method Room Air 07/27/22 06:00 07/27/22 06:08 07/27/22 07:35 Temperature Pulse Rate 77 Pulse Rate [Monitor] 81 Respiratory Rate 16 Blood Pressure 168/85 H Blood Pressure [Left Arm] Blood Pressure [Right Arm] Pulse Oximetry Oxygen Delivery Method 07/27/22 07:35 07/27/22 07:41 07/27/22 08:10 Temperature 97.7 F Pulse Rate 81 77 Pulse Rate [Monitor] Respiratory Rate 16 Blood Pressure 158/85 H Blood Pressure [Left Arm] Blood Pressure [Right Arm] 158/85 H Pulse Oximetry 92 L Oxygen Delivery Method Room Air 07/27/22 08:12 06/20/23 09:38 07/27/22 09:57 Temperature Pulse Rate 81 81 Pulse Rate [Monitor] Respiratory Rate 16 Blood Pressure Blood Pressure [Left Arm] Blood Pressure [Right Arm] 154/80 H Pulse Oximetry 90 L Oxygen Delivery Method Room Air 07/27/22 11:05 07/27/22 12:15 07/27/22 13:42 Temperature 98.4 F Pulse Rate 78 85 79 Pulse Rate [Monitor] Respiratory Rate 18 Blood Pressure Blood Pressure [Left Arm] Blood Pressure [Right Arm] 160/75 H Pulse Oximetry 90 L Oxygen Delivery Method Room Air 07/27/22 13:54 07/27/22 15:30 07/27/22 15:56 Temperature Pulse Rate 88 80 Pulse Rate [Monitor] Respiratory Rate Blood Pressure 158/85 H Blood Pressure [Left Arm] Blood Pressure [Right Arm] Pulse Oximetry Oxygen Delivery Method Results Labs Labs: Short CBC 07/26/22 07/27/22 Range/Units 20:20 06:45 WBC 14.2 H 11.8 H (4.0-11.0) 10^3/uL Hgb 10.0 L 8.3 L (14.0-18.0) g/dL Hct 27.9 L 23.3 L* (42.0-54.0) % Plt Count 475 H 368 (150-450) 10^3/uL BMP 07/26/22 07/26/22 07/27/22 20:20 21:24 06:45 Sodium 128 L 133 L Potassium 1.3 L* 1.3 L* 1.6 L* Chloride 81 L* 90 L Carbon Dioxide 32.9 H 30.1 BUN 24.0 H 18.0 Creatinine 1.34 H 0.86 Glucose 122 H 96 Calcium 5.7 L* 5.4 L* Liver Function 07/26/22 07/27/22 Range/Units 20:20 06:45 Total Bilirubin 2.0 H 1.3 H (0.2-1.0) mg/dL AST 154 H 105 H (15-37) U/L ALT 85 H 62 (16-63) U/L Alkaline Phosphatase 75 62 (46-116) U/L Albumin 2.3 L 1.8 L (3.4-5.0) g/dL Assessment and Plan Assessment and Plan (1) Adult failure to thrive: Assessment and Plan: patient with a low albumin, signifying significant malnourishment as well as several electrolyte abnormalities, will get a dietary nutrition consult. Could be from possible lung cancer or significant history of alcoholism (2) Generalized weakness: Assessment and Plan: related to his malnourishment and multiple vitamin deficiencies (3) Mass of upper lobe of left lung: Assessment and Plan: CT scan is concerning for malignancy, will consult oncology for further plan of care (4) Acute hypokalemia: Assessment and Plan: and tinea to replace IV and oral potassium, recheck potassium level every six hours (5) Hypomagnesemia: Assessment and Plan: continue to replace IV and oral magnesium (6) Hypocalcemia: Assessment and Plan: continue to replace IV and oral calcium (7) Alcoholic: Assessment and Plan: wanted her for any signs of withdrawal or seizure activity. Patient has no prior history of DTs or seizures. Plan patient is a full code Patient will be admitted to inpatient status and is expected to stay more than to midnight will be placed on Protonix for gastrointestinal prophylaxis
--- NOTE | 2022-07-27 16:28 | DIETREC ---
Add Ensure High Protein, starting with once/day. Will follow up and reassess intake of advanced diet and adjust supplementation as needed
[2022-07-27 16:32] LABS: Alanine Aminotransferase 62 U/L (16-63); Albumin Globulin Ratio 0.5; Albumin Level 1.9 g/dL (3.4-5.0); Alkaline Phosphatase 61 U/L (46-116); Anion Gap 9.7; Aspartate Amino Transferase 95 U/L (15-37); BUN Creatinine Ratio 16.9; Bilirubin Total 1.1 mg/dL (0.2-1.0); Carbon Dioxide 32.2 mmol/L (21.0-32.0); Chloride 94 mmol/L (98-107); Estimated GFR (African America >60 (>=60); Estimated GFR (Non-African Ame >60 (>=60); Globulin 3.8 g/dL; Glucose 93 mg/dL (74-106); Sodium 134 mmol/L (136-145); Total Protein 5.7 g/dL (6.4-8.2)
[2022-07-27 16:40] LABS: Calcium 5.6 mg/dL (8.5-10.1); Magnesium 0.8 mg/dL (1.8-2.4); Potassium 1.9 mmol/L (3.5-5.1)
--- NOTE | 2022-07-27 18:46 | PM.CN ---
Consult Note: HPI Data of Consult Patient: new to practice (Jaret Velazco) Consult date: 07/27/22 Requesting Physician: Olivia Mari DO Primary Care Provider: BELINDA JONES Consult Narrative Reason for consult: R lung mass Narrative: 62 y/o male with hx of tobacco use and ETOH use, admitted with failure to thrive. He has had considerable cachexia and multiple vitamin deficiencies detected on blood work. As above, he has +tobacco history for several years, with associated cough x years, and weight loss. He has also reported night sweats, low appetite, and was noted to have oropharyngeal thrush on exam. He has no known cirrhosis. He had imaging, and subsequent CT chest noting a 3 cm spiculated mass in the RUL. Importantly, he has no overt hilar or mediastinal adenopathy. CT also raises concern / question of thoracic compression fracture. He has daughter who lives nearby and is very involved in his care. He notes some depression at home, after passing of his ex-. Otherwise, he has not required supplemental oxygen while admitted. We are consulted for further diagnostic work-up and management of spiculated RUL lung mass. ECOG PS 2. cc:: CC: Olivia Mari DO Review of Systems ROS Status of ROS 10 or more systems reviewed and unremarkable except as noted in history and below PFSH PFSH Social History Smoking status: Current every day smoker Meds Home Medications and Allergies Home Medications Medication Instructions Recorded Confirmed Type metoprolol succinate 50 mg 50 mg PO BID 07/26/22 07/26/22 History tablet,extended release 24 hr Allergies Allergy/AdvReac Type Severity Reaction Status Date / Time No Known Drug Allergies Allergy Verified 07/26/22 20:07 Exam Narrative Exam Narrative: General - mildly disheveled, with somewhat poor oropharyngeal hygiene. Thin male, mild cachexia. Respiratory - scatted rhonchi bilaterally Constitutional Vital Signs - 24 hr 07/26/22 19:58 07/26/22 21:04 07/26/22 23:59 Temperature 97.8 F 97.9 F Pulse Rate 84 Pulse Rate [Monitor] 89 78 Respiratory Rate 22 22 14 Blood Pressure Blood Pressure [Left Arm] 134/86 H 135/80 H Blood Pressure [Right Arm] 129/82 H Pulse Oximetry 95 94 L 92 L Oxygen Delivery Method Room Air Room Air 07/27/22 00:00 07/26/22 23:59 07/26/22 23:59 Temperature Pulse Rate 92 H Pulse Rate [Monitor] Respiratory Rate 14 14 Blood Pressure Blood Pressure [Left Arm] Blood Pressure [Right Arm] Pulse Oximetry 92 L Oxygen Delivery Method Room Air 07/27/22 02:00 07/27/22 04:00 07/27/22 05:41 Temperature 97.4 F L Pulse Rate 76 72 77 Pulse Rate [Monitor] Respiratory Rate 18 Blood Pressure Blood Pressure [Left Arm] Blood Pressure [Right Arm] 151/87 H Pulse Oximetry 95 Oxygen Delivery Method Room Air 07/27/22 06:00 07/27/22 06:08 07/27/22 07:35 Temperature Pulse Rate 77 Pulse Rate [Monitor] 81 Respiratory Rate 16 Blood Pressure 168/85 H Blood Pressure [Left Arm] Blood Pressure [Right Arm] Pulse Oximetry Oxygen Delivery Method 07/27/22 07:35 07/27/22 07:41 07/27/22 08:10 Temperature 97.7 F Pulse Rate 81 77 Pulse Rate [Monitor] Respiratory Rate 16 Blood Pressure 158/85 H Blood Pressure [Left Arm] Blood Pressure [Right Arm] 158/85 H Pulse Oximetry 92 L Oxygen Delivery Method Room Air 07/27/22 08:12 07/27/22 09:38 07/27/22 09:57 Temperature Pulse Rate 81 81 Pulse Rate [Monitor] Respiratory Rate 16 Blood Pressure Blood Pressure [Left Arm] Blood Pressure [Right Arm] 154/80 H Pulse Oximetry 90 L Oxygen Delivery Method Room Air 07/27/22 11:05 07/27/22 12:15 07/27/22 13:42 Temperature 98.4 F Pulse Rate 78 85 79 Pulse Rate [Monitor] Respiratory Rate 18 Blood Pressure Blood Pressure [Left Arm] Blood Pressure [Right Arm] 160/75 H Pulse Oximetry 90 L Oxygen Delivery Method Room Air 07/27/22 13:54 07/27/22 15:30 07/27/22 15:56 Temperature Pulse Rate 88 80 Pulse Rate [Monitor] Respiratory Rate Blood Pressure 158/85 H Blood Pressure [Left Arm] Blood Pressure [Right Arm] Pulse Oximetry Oxygen Delivery Method 07/27/22 18:09 Temperature Pulse Rate 96 H Pulse Rate [Monitor] Respiratory Rate Blood Pressure Blood Pressure [Left Arm] Blood Pressure [Right Arm] Pulse Oximetry Oxygen Delivery Method Results Labs Labs: Short CBC 07/26/22 07/27/22 Range/Units 20:20 06:45 WBC 14.2 H 11.8 H (4.0-11.0) 10^3/uL Hgb 10.0 L 8.3 L (14.0-18.0) g/dL Hct 27.9 L 23.3 L* (42.0-54.0) % Plt Count 475 H 368 (150-450) 10^3/uL BMP 07/26/22 07/26/22 07/27/22 20:20 21:24 06:45 Sodium 128 L 133 L Potassium 1.3 L* 1.3 L* 1.6 L* Chloride 81 L* 90 L Carbon Dioxide 32.9 H 30.1 BUN 24.0 H 18.0 Creatinine 1.34 H 0.86 Glucose 122 H 96 Calcium 5.7 L* 5.4 L* 07/27/22 16:00 Sodium 134 L Potassium 1.9 L* Chloride 94 L Carbon Dioxide 32.2 H BUN 12.0 Creatinine 0.71 Glucose 93 Calcium 5.6 L* Liver Function 07/26/22 07/27/22 07/27/22 Range/Units 20:20 06:45 16:00 Total Bilirubin 2.0 H 1.3 H 1.1 H (0.2-1.0) mg/dL AST 154 H 105 H 95 H (15-37) U/L ALT 85 H 62 62 (16-63) U/L Alkaline Phosphatase 75 62 61 (46-116) U/L Albumin 2.3 L 1.8 L 1.9 L (3.4-5.0) g/dL Assessment and Plan Assessment and Plan (1) Adult failure to thrive: Assessment and Plan: patient with a low albumin, signifying significant malnourishment as well as several electrolyte abnormalities, will get a dietary nutrition consult. Could be from possible lung cancer or significant history of alcoholism (2) Generalized weakness: Assessment and Plan: related to his malnourishment and multiple vitamin deficiencies (3) Mass of upper lobe of left lung: Assessment and Plan: CT scan is concerning for malignancy, will consult oncology for further plan of care (4) Acute hypokalemia: Assessment and Plan: and tinea to replace IV and oral potassium, recheck potassium level every six hours (5) Hypomagnesemia: Assessment and Plan: continue to replace IV and oral magnesium (6) Hypocalcemia: Assessment and Plan: continue to replace IV and oral calcium (7) Alcoholic: Assessment and Plan: wanted her for any signs of withdrawal or seizure activity. Patient has no prior history of DTs or seizures. Plan 62 y/o male with tobacco and ETOH history admitted with failure to thrive, weakness, and severe electrolyte abnormalities. His work-up has revealed a spiculated 3 cm RUL lung mass, suspicious for primary lung malignancy. Impression: 1. Spiculated RUL lung mass, 3 cm, suspicious for malignancy. Importantly, no overt hilar or mediastinal disease. As such, he may have early lung cancer. 2. Tobacco use 3. ETOH use 4. Probable COPD / emphysema, per review of CT chest 5. Severe hypokalemia 6. Leukocytosis, suspect reactive 7. Anemia 8. Thrombocytosis 9. EMIL, improved 10. Elevated bilirubin, improved 11. Elevated LFTs 12. Protein calorie malnutrition and low albumin PLAN: - I had an extensive discussion with pt, and daughter Marleni, re: patient's CT scan and potential implications - I discussed my high suspicion for malignancy, per my review of his images. Fortunately, he may have early lung cancer, based on our current images, as he does not have overt hilar or mediastinal disease - I discussed that a biopsy would be recommended for definitive diagnosis. Based on location of this mass, I suspect IR lung biopsy would be more likely to obtain tissue diagnosis than bronchoscopy. However, IR biopsy would have fairly high risk of pneumothorax. I will need to discuss case with Dr Mcclure / Dr Ness from radiology, to see if they are comfortable with IR biopsy. If pursued, we would need Dr Brink on standby for likely chest tube placement, given high risk of PTX. - Pt and daughter are comfortable with procedure, if the IR team is willing and able to perform biopsy. If biopsy unable to be performed due to excess risk, then we would coordinate with alternate facility such as [facility]. - Of note, pt notes some concern re: his insurance / approval for tests as an outpatient. I would recommend that he and daughter Marleni work with Social work, to help with these concerns. - I did provide list of high calorie shakes and protein supplements that patient can try for weight gain. I would recommend trial of CBD gummies for appetite, as an outpatient. - I discussed importance of tobacco and ETOH cessation. He is at the contemplative stage for quitting. - Hospitalist team is already skillfully managing his other medical issues, including severe hypokalemia. - As an outpt, he will likely benefit from full evaluation of his lung function, including PFTs, optimal inhaler therapy, etc. We can have him see Dr Davis as inpatient or outpatient. - He may also benefit from liver US / evaluation for cirrhosis. I defer this to hospitalist team. - I suspect his elevated WBC and platelets to be reactive. Please add anemia work-up consisting of iron, TIBC, ferritin, B12, folic acid if not yet done, to see if there is a reversible cause of his anemia. I will follow along. We will need to follow-up on risks / benefits of inpatient biopsy tomorrow. Thank you for the consult. Jennifer Garber MD Hematology Oncology
--- NOTE | 2022-07-27 20:21 | P.CN_ITS ---
Consult Note: HPI Data of Consult Patient: new to practice (Jaret Velazco) Requesting Physician: Olivia Mari DO Primary Care Provider: BELINDA JONES Consult Narrative Reason for consult: R lung mass Narrative: 62 y/o male with hx of tobacco use and ETOH use, admitted with failure to thrive. He has had considerable cachexia and multiple vitamin deficiencies detected on blood work. As above, he has +tobacco history for several years, with associated cough x years, and weight loss. He has also reported night sweats, low appetite, and was noted to have oropharyngeal thrush on exam. He has no known cirrhosis. He had imaging, and subsequent CT chest noting a 3 cm spiculated mass in the RUL. Importantly, he has no overt hilar or mediastinal adenopathy. CT also raises concern / question of thoracic compression fracture. He has daughter who lives nearby and is very involved in his care. He notes some depression at home, after passing of his ex-. Otherwise, he has not required supplemental oxygen while admitted. We are consulted for further diagnostic work-up and management of spiculated RUL lung mass. ECOG PS 2. cc:: CC: Olivia Mari DO Review of Systems ROS Status of ROS 10 or more systems reviewed and unremarkable except as noted in history and below PFSH PFS Social History Smoking status: Current every day smoker Meds Home Medications and Allergies Home Medications Medication Instructions Recorded Confirmed Type metoprolol succinate 50 mg 50 mg PO BID 07/26/22 07/26/22 History tablet,extended release 24 hr Allergies Allergy/AdvReac Type Severity Reaction Status Date / Time No Known Drug Allergies Allergy Verified 07/26/22 20:07 Exam Narrative Exam Narrative: General - thin, cachectic male HEENT - poor oropharyngeal hygiene Respiratory - rhonchi bilaterally Extremities - no edema Constitutional Vital Signs - 24 hr 07/26/22 21:04 07/26/22 23:59 07/27/22 00:00 Temperature 97.9 F Pulse Rate 84 92 H Pulse Rate [Monitor] 78 Respiratory Rate 22 14 Blood Pressure Blood Pressure [Left Arm] 135/80 H Blood Pressure [Right Arm] 129/82 H Pulse Oximetry 94 L 92 L Oxygen Delivery Method Room Air 07/26/22 23:59 07/26/22 23:59 07/27/22 02:00 Temperature Pulse Rate 76 Pulse Rate [Monitor] Respiratory Rate 14 14 Blood Pressure Blood Pressure [Left Arm] Blood Pressure [Right Arm] Pulse Oximetry 92 L Oxygen Delivery Method Room Air 07/27/22 04:00 07/27/22 05:41 07/27/22 06:00 Temperature 97.4 F L Pulse Rate 72 77 77 Pulse Rate [Monitor] Respiratory Rate 18 Blood Pressure Blood Pressure [Left Arm] Blood Pressure [Right Arm] 151/87 H Pulse Oximetry 95 Oxygen Delivery Method Room Air 07/27/22 06:08 07/27/22 07:35 07/27/22 07:35 Temperature Pulse Rate Pulse Rate [Monitor] 81 Respiratory Rate 16 Blood Pressure 168/85 H 158/85 H Blood Pressure [Left Arm] Blood Pressure [Right Arm] Pulse Oximetry Oxygen Delivery Method 07/27/22 07:41 07/27/22 08:10 07/27/22 08:12 Temperature 97.7 F Pulse Rate 81 77 Pulse Rate [Monitor] Respiratory Rate 16 16 Blood Pressure Blood Pressure [Left Arm] Blood Pressure [Right Arm] 158/85 H Pulse Oximetry 92 L Oxygen Delivery Method Room Air 07/27/22 09:38 07/27/22 09:57 07/27/22 11:05 Temperature Pulse Rate 81 81 78 Pulse Rate [Monitor] Respiratory Rate Blood Pressure Blood Pressure [Left Arm] Blood Pressure [Right Arm] 154/80 H Pulse Oximetry 90 L Oxygen Delivery Method Room Air 07/27/22 12:15 07/27/22 13:42 07/27/22 13:54 Temperature 98.4 F Pulse Rate 85 79 88 Pulse Rate [Monitor] Respiratory Rate 18 Blood Pressure Blood Pressure [Left Arm] Blood Pressure [Right Arm] 160/75 H Pulse Oximetry 90 L Oxygen Delivery Method Room Air 07/27/22 15:30 07/27/22 15:56 07/27/22 18:09 Temperature Pulse Rate 80 96 H Pulse Rate [Monitor] Respiratory Rate Blood Pressure 158/85 H Blood Pressure [Left Arm] Blood Pressure [Right Arm] Pulse Oximetry Oxygen Delivery Method 07/27/22 19:00 07/27/22 20:20 Temperature Pulse Rate 89 Pulse Rate [Monitor] Respiratory Rate Blood Pressure 170/92 H Blood Pressure [Left Arm] Blood Pressure [Right Arm] Pulse Oximetry Oxygen Delivery Method Results Labs Labs: Short CBC 07/26/22 07/27/22 Range/Units 20:20 06:45 WBC 14.2 H 11.8 H (4.0-11.0) 10^3/uL Hgb 10.0 L 8.3 L (14.0-18.0) g/dL Hct 27.9 L 23.3 L* (42.0-54.0) % Plt Count 475 H 368 (150-450) 10^3/uL BMP 07/26/22 07/26/22 07/27/22 20:20 21:24 06:45 Sodium 128 L 133 L Potassium 1.3 L* 1.3 L* 1.6 L* Chloride 81 L* 90 L Carbon Dioxide 32.9 H 30.1 BUN 24.0 H 18.0 Creatinine 1.34 H 0.86 Glucose 122 H 96 Calcium 5.7 L* 5.4 L* 07/27/22 16:00 Sodium 134 L Potassium 1.9 L* Chloride 94 L Carbon Dioxide 32.2 H BUN 12.0 Creatinine 0.71 Glucose 93 Calcium 5.6 L* Liver Function 07/26/22 07/27/22 07/27/22 Range/Units 20:20 06:45 16:00 Total Bilirubin 2.0 H 1.3 H 1.1 H (0.2-1.0) mg/dL AST 154 H 105 H 95 H (15-37) U/L ALT 85 H 62 62 (16-63) U/L Alkaline Phosphatase 75 62 61 (46-116) U/L Albumin 2.3 L 1.8 L 1.9 L (3.4-5.0) g/dL Imaging CT scan - chest: My impression: Images personally reviewed and shows a 3 cm spiculated mass, RUL Assessment and Plan Assessment and Plan (1) Adult failure to thrive: Assessment and Plan: patient with a low albumin, signifying significant malnourishment as well as several electrolyte abnormalities, will get a dietary nutrition consult. Could be from possible lung cancer or significant history of alcoholism (2) Generalized weakness: Assessment and Plan: related to his malnourishment and multiple vitamin deficiencies (3) Mass of upper lobe of left lung: Assessment and Plan: CT scan is concerning for malignancy, will consult oncology for further plan of care (4) Acute hypokalemia: Assessment and Plan: and tinea to replace IV and oral potassium, recheck potassium level every six hours (5) Hypomagnesemia: Assessment and Plan: continue to replace IV and oral magnesium (6) Hypocalcemia: Assessment and Plan: continue to replace IV and oral calcium (7) Alcoholic: Assessment and Plan: wanted her for any signs of withdrawal or seizure activity. Patient has no prior history of DTs or seizures. Plan 62 y/o male with tobacco and ETOH history admitted with failure to thrive, weakness, and severe electrolyte abnormalities. His work-up has revealed a spiculated 3 cm RUL lung mass, suspicious for primary lung malignancy. Impression: 1. Spiculated RUL lung mass, 3 cm, suspicious for malignancy. Importantly, no overt hilar or mediastinal disease. As such, he may have early lung cancer. 2. Tobacco use 3. ETOH use 4. Probable COPD / emphysema, per review of CT chest 5. Severe hypokalemia 6. Leukocytosis, suspect reactive 7. Anemia 8. Thrombocytosis 9. EMIL, improved 10. Elevated bilirubin, improved 11. Elevated LFTs 12. Protein calorie malnutrition and low albumin PLAN: - I had an extensive discussion with pt, and daughter Marleni, re: patient's CT scan and potential implications - I discussed my high suspicion for malignancy, per my review of his images. Fortunately, he may have early lung cancer, based on our current images, as he does not have overt hilar or mediastinal disease - I discussed that a biopsy would be recommended for definitive diagnosis. Based on location of this mass, I suspect IR lung biopsy would be more likely to obtain tissue diagnosis than bronchoscopy. However, IR biopsy would have fairly high risk of pneumothorax. I will need to discuss case with Dr Mcclure / Dr Ness from radiology, to see if they are comfortable with IR biopsy. If pursued, we would need Dr Brink on standby for likely chest tube placement, given high risk of PTX. - Pt and daughter are comfortable with procedure, if the IR team is willing and able to perform biopsy. If biopsy unable to be performed due to excess risk, then we would coordinate with alternate facility such as [facility]. - Of note, pt notes some concern re: his insurance / approval for tests as an outpatient. I would recommend that he and daughter Marleni work with Social work, to help with these concerns. - I did provide list of high calorie shakes and protein supplements that patient can try for weight gain. I would recommend trial of CBD gummies for appetite, as an outpatient. - I discussed importance of tobacco and ETOH cessation. He is at the contemplative stage for quitting. - Hospitalist team is already skillfully managing his other medical issues, including severe hypokalemia. - As an outpt, he will likely benefit from full evaluation of his lung function, including PFTs, optimal inhaler therapy, etc. We can have him see Dr Davis as inpatient or outpatient. - He may also benefit from liver US / evaluation for cirrhosis. I defer this to hospitalist team. - I suspect his elevated WBC and platelets to be reactive. Please add anemia work-up consisting of iron, TIBC, ferritin, B12, folic acid if not yet done, to see if there is a reversible cause of his anemia. I will follow along. We will need to follow-up on risks / benefits of inpatient biopsy tomorrow. Thank you for the consult. Jennifer Garber MD Hematology Oncology
[2022-07-27 22:25] LABS: Alanine Aminotransferase 59 U/L (16-63); Albumin Globulin Ratio 0.5; Albumin Level 1.9 g/dL (3.4-5.0); Alkaline Phosphatase 59 U/L (46-116); Anion Gap 9.7; Aspartate Amino Transferase 88 U/L (15-37); BUN Creatinine Ratio 13.5; Bilirubin Total 0.9 mg/dL (0.2-1.0); Carbon Dioxide 31.3 mmol/L (21.0-32.0); Chloride 93 mmol/L (98-107); Estimated GFR (African America >60 (>=60); Estimated GFR (Non-African Ame >60 (>=60); Globulin 3.7 g/dL; Glucose 105 mg/dL (74-106); Sodium 132 mmol/L (136-145); Total Protein 5.6 g/dL (6.4-8.2)
[2022-07-27 22:29] LABS: Calcium 5.4 mg/dL (8.5-10.1); Magnesium 0.7 mg/dL (1.8-2.4)
[2022-07-28] VITALS (24 sets, daily range): BP systolic 126–159; BP diastolic 79–91; PULSE 71–102; RESP 14–18; TEMP 36.4–36.8; O2SAT 71–102
[2022-07-28] MEDS: POTASSIUM CHLORIDE 40 MEQ in 0.9 % SODIUM CHLORIDE 1,000 ML 250 MEQ IV (01:56)
[2022-07-28] MEDS: NYSTATIN 500,000 UNIT/5 ML ORAL.SUSP 500000 UNIT PO ×4 (05:01→21:13)
[2022-07-28] MEDS: POTASSIUM CHLORIDE 10 MEQ ER TABLET 20 MEQ PO (05:01)
[2022-07-28 05:07] LABS: HBsAg Screen Negative (Negative); HCV Ab Non Reactive (Non Reactive); Hep A Ab, IgM Negative (Negative); Hep B Core Ab, IgM Negative (Negative)
[2022-07-28 05:20] LABS: Alanine Aminotransferase 54 U/L (16-63); Albumin Globulin Ratio 0.5; Albumin Level 1.8 g/dL (3.4-5.0); Alkaline Phosphatase 54 U/L (46-116); Anion Gap 7.9; Aspartate Amino Transferase 76 U/L (15-37); BUN Creatinine Ratio 9.2; Bilirubin Total 0.8 mg/dL (0.2-1.0); Carbon Dioxide 32.2 mmol/L (21.0-32.0); Chloride 95 mmol/L (98-107); Estimated GFR (African America >60 (>=60); Estimated GFR (Non-African Ame >60 (>=60); Globulin 3.6 g/dL; Glucose 96 mg/dL (74-106); Sodium 133 mmol/L (136-145); Total Protein 5.4 g/dL (6.4-8.2)
[2022-07-28 05:36] LABS: Calcium 5.5 mg/dL (8.5-10.1); Potassium 2.1 mmol/L (3.5-5.1)
[2022-07-28 05:37] LABS: Magnesium 0.7 mg/dL (1.8-2.4)
[2022-07-28] MEDS: FUROSEMIDE 40 MG/4 ML VIAL IVP (06:18)
--- NOTE | 2022-07-28 06:44 | PC.NURSE ---
Patient's O2 fell off while doing IVP. Double Corner Cutter placed patient on POX to see results. Patient was at 82-87% advertising copywriter placed patient back on the O2 at 2L patient is now holding 94%
[2022-07-28] MEDS: MAGNESIUM OXIDE 400 MG TABLET 800 MG PO ×2 (09:34→20:19)
[2022-07-28] MEDS: THIAMINE MONONITRATE (VIT B1) 100 MG TABLET PO (09:34)
[2022-07-28] MEDS: ENSURE HP 237 ML LIQUID PO ×2 (09:35→20:19)
[2022-07-28] MEDS: FOLIC ACID 1 MG TABLET PO (09:35)
[2022-07-28] MEDS: PANTOPRAZOLE SODIUM 40 MG VIAL IV (09:35)
[2022-07-28] MEDS: MULTIVITAMIN TABLET 400 TAB PO (09:35)
[2022-07-28] MEDS: METOPROLOL SUCCINATE 50 MG TAB.ER.24H PO ×2 (09:35→20:19)
[2022-07-28] MEDS: POTASSIUM CHLORIDE 10 MEQ ER TABLET 40 MEQ PO ×2 (09:35→16:59)
[2022-07-28 10:00] LABS: Basophils Percent Auto 0.3 % (0.2-2.0); Eosinophils Absolute Auto 0.2 10^3/uL (0.0-0.7); Eosinophils Percent Auto 1.5 % (0.9-7.0); Hematocrit 25.2 % (42.0-54.0); Immature Granulocytes Pct Auto 0.9 % (0.0-0.5); Lymphocytes Absolute Auto 1.1 10^3/uL (1.2-3.8); Lymphocytes Percent Auto 9.6 % (20.5-60.0); Mean Corpuscular HGB Conc 35.7 g/dL (29.9-35.2); Mean Corpuscular Hemoglobin 32.4 pg (25.9-34.0); Mean Corpuscular Volume 90.6 fL (80.0-94.0); Mean Platelet Volume 9.5 fL (9.5-13.5); Monocytes Absolute Auto 0.7 10^3/uL (0.3-0.8); Monocytes Percent Auto 5.8 % (1.7-12.0); Neutrophils Absolute Auto 9.4 10^3/uL (1.4-6.5); Neutrophils Percent Auto 81.9 % (43.0-75.0); Platelet Count 409 10^3/uL (150-450); Red Blood Count 2.78 10^6/uL (4.70-6.10); White Blood Count 11.5 10^3/uL (4.0-11.0)
[2022-07-28] MEDS: CALCIUM GLUC IN NACL ISO OSM IV (10:00)
--- NOTE | 2022-07-28 10:33 | CM.NOTE ---
Rounding with Dr. Mari, pt. will not be discharging today. Pt. refuses meals on wheels. States I cook my own food or my daughter brings in food for me. Continue to monitor for needs. Dr. Mari and RN aware pt. refused home health and any ETOH resources.
[2022-07-28 10:42] LABS: Alanine Aminotransferase 62 U/L (16-63); Albumin Globulin Ratio 0.5; Albumin Level 2.1 g/dL (3.4-5.0); Alkaline Phosphatase 62 U/L (46-116); Anion Gap 7.9; Aspartate Amino Transferase 91 U/L (15-37); BUN Creatinine Ratio 8.1; Bilirubin Total 0.9 mg/dL (0.2-1.0); Carbon Dioxide 34.4 mmol/L (21.0-32.0); Chloride 94 mmol/L (98-107); Estimated GFR (African America >60 (>=60); Estimated GFR (Non-African Ame >60 (>=60); Globulin 4.2 g/dL; Glucose 111 mg/dL (74-106); Sodium 134 mmol/L (136-145); Total Protein 6.3 g/dL (6.4-8.2)
[2022-07-28 10:45] LABS: Potassium 2.3 mmol/L (3.5-5.1)
[2022-07-28 10:46] LABS: Magnesium 0.7 mg/dL (1.8-2.4)
--- NOTE | 2022-07-28 10:49 | SWNOTE1 ---
SW stopped in to talk with pt about any concerns with insurance. Pt did let SW know that he has not worked in awhile as they have not had any work. He was worried his insurance would be ending in the next month or so. SW talked with him about medicaid and about medicare. SW taking him medicaid application and also medicare booklet. Pt's daughter is coming in later today, SW to stop back in then.
[2022-07-28] MEDS: MAGNESIUM SULFATE IN WATER 4 GM/100 ML PIGGYBACK IV (11:11)
[2022-07-28] MEDS: 0.9 % SODIUM CHLORIDE 250 ML 100 ML IV (11:11)
--- NOTE | 2022-07-28 11:33 | REH.PTDLY ---
Physical Therapy Daily Note PT Daily Note/Assess Start: 07/28/22 11:28 Freq: Status: Active Protocol: Document 07/28/22 11:28 SHAKILAAYDEE (Rec: 07/28/22 11:33 [id number] Physical Therapy Daily Note/Assessment Time In 10:12 Time Out 10:36 Subjective Pt agreeable to therapy, sitting up in chair. Therapeutic Exercise Minutes (minutes) 12 Therapeutic Exercise Units 1 Therapeutic Exercise Treatment Instructed in seated exs 10x ea for improved strength with cues and demo. Instructed in standing exs at sink 10x ea with B LE. Standing program handout used and left in room for pt to be able to take home at [place]. SpO2 at 91-92% post standing exs. Therapeutic Activity Minutes (minutes) 11 Therapeutic Activity Units 1 Chair Transfer Ability Standby Assistance Therapeutic Activity Comments Pt performs sit to stand transfers 3x throughout rx SBA . Gait training 20 feet x2 SBA with no AD. Gait training another 100 feet SBA/CGA for safety with no AD, pt taking 1 standing rest break for 30 seconds. Pt ambulates at safe pace. SpO2 at 91% after gait with no O2 on. Total Therapy Minutes 23 Total Physical Therapy Units 2 Daily Note Summary Progressed exs with pt denying any complaints of pain or discomfort. Some fatigue/ tightness in Rich calf muscles, pt reports this has been ongoing. Progressed gait distance today with some SOB noted, but no drop in O2 sats.
--- NOTE | 2022-07-28 11:38 | REH.PTDLY ---
Physical Therapy Daily Note PT Daily Note/Assess Start: 07/28/22 11:28 Freq: Status: Active Protocol: Document 07/28/22 11:28 SHAKILAAYDEE (Rec: 07/28/22 11:33 [id number] Physical Therapy Daily Note/Assessment Time In 10:12 Time Out 10:36 Subjective Pt agreeable to therapy, sitting up in chair. Therapeutic Exercise Minutes (minutes) 12 Therapeutic Exercise Units 1 Therapeutic Exercise Treatment Instructed in seated exs 10x ea for improved strength with cues and demo. Instructed in standing exs at sink 10x ea with B LE. Standing program handout used and left in room for pt to be able to take home at [place]. SpO2 at 91-92% post standing exs. Therapeutic Activity Minutes (minutes) 11 Therapeutic Activity Units 1 Chair Transfer Ability Standby Assistance Therapeutic Activity Comments Pt performs sit to stand transfers 3x throughout rx SBA . Gait training 20 feet x2 SBA with no AD. Gait training another 100 feet SBA/CGA for safety with no AD, pt taking 1 standing rest break for 30 seconds. Pt ambulates at safe pace. SpO2 at 91% after gait with no O2 on. Total Therapy Minutes 23 Total Physical Therapy Units 2 Daily Note Summary Progressed exs with pt denying any complaints of pain or discomfort. Some fatigue/ tightness in Rich calf muscles, pt reports this has been ongoing. Progressed gait distance today with some SOB noted, but no drop in O2 sats.
[2022-07-28] MEDS: POTASSIUM CHLORIDE 40 MEQ in 0.9 % SODIUM CHLORIDE 250 ML 67.5 MEQ IV (12:17)
--- NOTE | 2022-07-28 12:49 | CA_ITS ---
Patient: BOBBY GRAJEDA Exam Date: 07/28/2022 : 1960 Gender:M Ordering : ERIKA MAYER . Admission #: [id number] Family : Order #: [id number] CLICK HERE TO VIEW EXAM ECHOCARDIOGRAM REPORT PROCEDURE: CA ECHO DOPPLER COMPLETE INDICATIONS: elevated proBNP, new onset CHF COMPARISON: None. DESCRIPTION: COMPLETE ECHOCARDIOGRAM Real-time transthoracic echocardiography with 2D, M-mode, spectral and color flow Doppler performed. QUALITY: Technical quality was good. LEFT VENTRICLE: Normal chamber size. Thickened septal wall. LV EF: Normal left ventricular ejection fraction, (>55%). Unable to assess regional wall motion abnormalities. DIASTOLIC: Unable to assess diastolic function. ATRIAL SEPTUM: Visually appears intact. LEFT ATRIUM: Normal chamber size. RIGHT ATRIUM: Normal chamber size. RIGHT VENTRICLE: Normal chamber size. Normal right ventricular systolic function. TRICUSPID VALVE: Normal mobility and thickness. No stenosis with no regurgitation. Unable to assess right-sided pressures due to lack of measurable tricuspid regurgitation. MITRAL VALVE: Mildly thickened with normal mobility. No evidence of mitral valve stenosis. Mild mitral annular calcification. No mitral regurgitation. AORTIC VALVE: Normal trileaflet appearance. Thickened aortic valve. Normal leaflet mobility. No evidence of aortic valve stenosis. No aortic regurgitation. AORTIC ROOT: Normal diameter and appearance. PULMONIC VALVE: Not well visualized. No stenosis. No regurgitation. PERICARDIUM: Anterior free space; trivial effusion versus fat pad. IVC: Collapses with inspirations. CONCLUSION: Global left ventricular systolic function is difficult to assess but appears preserved; visually estimated ejection fraction is 55 to 60%. Unable to assess diastolic function. The right ventricle is normal in size and systolic function. The valves are poorly seen; no significant valvular abnormalities. Anterior free space; trivial effusion versus fat pad. Adult Echocardiography Procedure Report Left Ventricle LVEDD (3.7 - 5.6 cm): 4.97 cm, 4.49 cm LVESD (2.2 - 4.0 cm): 3.35 cm, 3.20 cm LVIVS thickness (0.6 - 1.2 cm): 1.24 cm LVPW thickness (0.5 - 1.0 cm): 0.78 cm e': 0.09 m/s E - e': 7.94 LVOT Max Gradient: 3.35 mm[Hg] LVOT Area (cm2): 0.91 m/s Peak Velocity (LVOT): 0.91 m/s LVOT Diameter 2.24 cm Left Atrium LA Volume Index (2D A2C): 34.75 ml/m2 Left Atrium Systolic Dimension: 2.73 cm Mitral Valve MV E to A Ratio: 0.56 Mitral Valve A-Wave Peak Velocity: 1.26 m/s Mitral Valve E-Wave Peak Velocity: 0.71 m/s Right Ventricle Aorta AO Root Diam: 3.30 cm Aortic Valve AoV Area (Peak Ronn): 2.96 cm2, 2.96 cm2 Peak Velocity(Antegrade Flow): 1.21 m/s Peak Gradient(Antegrade Flow): 5.90 mm[Hg] Tricuspid Valve Pulmonic Valve Peak Velocity: 0.87 m/s Peak Gradient: 3.27 mm[Hg], 2.77 mm[Hg] Right Atrium Right Atrium Systolic Pressure: 29.20 ml, 29.20 ml Dictated by: Adele Smith M.D. on 07/28/2022 at 17:00 Approved by: Adele Smith M.D. on 07/28/2022 at 17:03
--- NOTE | 2022-07-28 12:52 | PM.PN ---
Progress Note: Subjective Subjective Interval history: patient is a 62-year-old gentleman who presented to the Emergency Room last night after family specifically daughter was concerned about patient's decline. Patient has become very weak, poor appetite has been having a cough and states that's been going on for about a year has experienced some weight loss and cachexia, and poor appetite. He said he has been experiencing some night sweats as well. His ex- who lived with him recently within the last month and she also helps care for him. He currently lives alone with two dogs and reports that he has been a daily drinker for several years he admits to six or more beers a day or more than a 5th of vodka a day. He has never tried to quit in the past but denies having any history of delirium tremens or seizure alcohol withdrawal history. He does admit to drinking prior to admission last night. A blood alcohol level was less than three. on Chest x-ray there was a finding of a left upper lung mass patient reports he doesn't follow much with any doctors he has seen Dr. Freeman in the past. He has also been a smoker for many years. He has been experiencing some sore throat and mouth irritation to the point where he has picked off some discharge in his throat. He denies having any liver cirrhosis, any bleeding from vomiting or stool. He was also found to be severely hypokalemic hypo-magnesium at and hypocalcemia. Low albumin that shows significant cachexia and failure to thrive. He also denies any previous history of hepatitis or HIV. Denies any history of IV drug use. this morning patient notes overnight developed a really productive cough. He denies any fevers or chills, due to the finding of high suspicion for malignancy on the left upper lobe of the lung oncology did come and speak with patient yesterday about further plan of care. Overnight physician reported hypoxia so fluids were stopped and a dose of Lasix 40 mg IV times once was given. Exam Narrative Exam Narrative: General: Patient is alert, and oriented to person, place and time with severe cachexia Skin: skin pallor Head: atraumatic, acephalic Eyes: PERRLA, no nystagmus present, conjunctiva clear, no scleral icterus Ears: normal gross auditory acuity Nose: symmetric, no discharge, no maxillary or frontal sinus tenderness Mouth/Throat: diffuse erythema, with white exudate Neck: no masses palpated, normal thyroid, no JVD or audible carotid bruits Heart: Normal rate and rhythm, no murmurs/rubs/gallops Lungs: no audible wheezes, crackles and normal breath sounds all lung hi Abdomen: Normal audible bowel sounds, no distension, No palpable masses, no organomegaly, no rebound/guarding/ or rigidity Musculoskeletal: muscle atrophy noted, no swelling bilateral lower extremities Neuro: CN II-X grossly intact, normal sensation upper and lower extremities Constitutional Vital Signs - 24 hr 07/27/22 13:42 07/27/22 13:54 07/27/22 15:30 Temperature 98.4 F Pulse Rate 79 88 Pulse Rate [Monitor] Respiratory Rate 18 Blood Pressure 158/85 H Blood Pressure [Left Arm] Blood Pressure [Right Arm] 160/75 H Pulse Oximetry 90 L Oxygen Delivery Method Room Air Oxygen Delivery Flow Rate 07/27/22 15:56 07/27/22 18:09 07/27/22 19:00 Temperature Pulse Rate 80 96 H Pulse Rate [Monitor] Respiratory Rate Blood Pressure 170/92 H Blood Pressure [Left Arm] Blood Pressure [Right Arm] Pulse Oximetry Oxygen Delivery Method Oxygen Delivery Flow Rate 07/27/22 20:00 07/27/22 20:20 07/27/22 21:14 Temperature 98.2 F Pulse Rate 89 81 Pulse Rate [Monitor] 85 Respiratory Rate 18 18 Blood Pressure Blood Pressure [Left Arm] 167/95 H Blood Pressure [Right Arm] Pulse Oximetry 90 L Oxygen Delivery Method Room Air Oxygen Delivery Flow Rate 07/27/22 22:23 07/27/22 23:00 07/28/22 00:00 Temperature Pulse Rate 86 92 H Pulse Rate [Monitor] Respiratory Rate Blood Pressure Blood Pressure [Left Arm] 147/75 H Blood Pressure [Right Arm] Pulse Oximetry Oxygen Delivery Method Oxygen Delivery Flow Rate 07/27/22 23:00 07/28/22 02:00 07/28/22 04:01 Temperature Pulse Rate 82 Pulse Rate [Monitor] Respiratory Rate 18 Blood Pressure 162/88 H Blood Pressure [Left Arm] Blood Pressure [Right Arm] Pulse Oximetry Oxygen Delivery Method Oxygen Delivery Flow Rate 07/28/22 04:00 07/28/22 03:00 07/28/22 03:55 Temperature 97.5 F L Pulse Rate 78 71 Pulse Rate [Monitor] Respiratory Rate 14 Blood Pressure 159/79 H Blood Pressure [Left Arm] 159/79 H Blood Pressure [Right Arm] Pulse Oximetry 87 L Oxygen Delivery Method Room Air Oxygen Delivery Flow Rate 07/28/22 05:27 07/28/22 06:00 07/28/22 06:18 Temperature 97.6 F Pulse Rate 91 H 94 H Pulse Rate [Monitor] Respiratory Rate 18 Blood Pressure 146/90 H Blood Pressure [Left Arm] 148/85 H Blood Pressure [Right Arm] Pulse Oximetry 97 Oxygen Delivery Method Nasal Cannula Oxygen Delivery Flow Rate 2 07/28/22 08:05 07/28/22 10:04 07/28/22 11:55 Temperature Pulse Rate 102 H 101 H 99 H Pulse Rate [Monitor] Respiratory Rate Blood Pressure Blood Pressure [Left Arm] Blood Pressure [Right Arm] Pulse Oximetry Oxygen Delivery Method Oxygen Delivery Flow Rate 07/28/22 11:58 Temperature Pulse Rate Pulse Rate [Monitor] Respiratory Rate Blood Pressure Blood Pressure [Left Arm] Blood Pressure [Right Arm] Pulse Oximetry 91 L Oxygen Delivery Method Room Air Oxygen Delivery Flow Rate Progress Note: Objective Labs Labs: Short CBC 07/28/22 Range/Units 09:52 WBC 11.5 H (4.0-11.0) 10^3/uL Hgb 9.0 L (14.0-18.0) g/dL Hct 25.2 L (42.0-54.0) % Plt Count 409 (150-450) 10^3/uL BMP 07/27/22 07/27/22 07/28/22 16:00 21:56 04:27 Sodium 134 L 132 L 133 L Potassium 1.9 L* 2.0 L* 2.1 L* Chloride 94 L 93 L 95 L Carbon Dioxide 32.2 H 31.3 32.2 H BUN 12.0 10.0 7.0 Creatinine 0.71 0.74 0.76 Glucose 93 105 96 Calcium 5.6 L* 5.4 L* 5.5 L* 07/28/22 09:52 Sodium 134 L Potassium 2.3 L* Chloride 94 L Carbon Dioxide 34.4 H BUN 6.0 L Creatinine 0.74 Glucose 111 H Calcium 6.0 L Liver Function 07/27/22 07/27/22 07/28/22 Range/Units 16:00 21:56 04:27 Total Bilirubin 1.1 H 0.9 0.8 (0.2-1.0) mg/dL AST 95 H 88 H 76 H (15-37) U/L ALT 62 59 54 (16-63) U/L Alkaline Phosphatase 61 59 54 (46-116) U/L Albumin 1.9 L 1.9 L 1.8 L (3.4-5.0) g/dL // Range/Units 09:52 Total Bilirubin 0.9 (0.2-1.0) mg/dL AST 91 H (15-37) U/L ALT 62 (16-63) U/L Alkaline Phosphatase 62 (46-116) U/L Albumin 2.1 L (3.4-5.0) g/dL Progress Note: A&P Assessment and Plan (1) Adult failure to thrive: Assessment and Plan: patient with a low albumin, signifying significant malnourishment as well as several electrolyte abnormalities, will get a dietary nutrition consult who added ensure, Could be from possible lung cancer or significant history of alcoholism (2) New onset of congestive heart failure: Assessment and Plan: hypoxia noted last night and fluids were stopped, patient was given a dose of IV Lasix 40 mg once. This morning elevated proBNP at sixteen thousand ,get an echocardiogram, given this is new onset and new diagnosis for patient will also get a cardiology consult. Given patient's extreme electrolyte abnormalities diuresis is very risky. (3) Generalized weakness: Assessment and Plan: related to his malnourishment and multiple vitamin deficiencies, pt/ot (4) Mass of upper lobe of left lung: Assessment and Plan: CT scan is concerning for malignancy, will consult oncology for further plan of care; possible IR biopsy vs not, I will also check interferon gold for possible TB (5) Acute hypokalemia: Assessment and Plan: replace IV and oral potassium, recheck potassium level every six hours (6) Hypomagnesemia: Assessment and Plan: continue to replace IV and oral magnesium (7) Hypocalcemia: Assessment and Plan: continue to replace IV and oral calcium (8) Alcoholic: Assessment and Plan: wanted her for any signs of withdrawal or seizure activity. Patient has no prior history of DTs or seizures. elevated AST compared to a LT, will check a right upper quadrant abdominal ultrasound to see if we can characterize his liver disease as fatty liver, fibrosis, or cirrhosis. (9) Oral pharyngeal candidiasis: Assessment and Plan: continue oral nystatin (10) Anemia: Assessment and Plan: Will check iron studies and vitamin B12 Plan patient is a full code patient is an inpatient status and is expected stay more than two midnights
[2022-07-28 13:57] LABS: Percent Iron Saturation 102.9 %
--- NOTE | 2022-07-28 14:24 | P.CN_ITS ---
Discussed with [employer] Brian Teixeira, I agree with the assessment and plan. Consult Note: HPI Data of Consult Requesting Physician: Olivia Mari DO Primary Care Provider: BELINDA JONES Consult Narrative Narrative: [facility] Consult Note CC: Acute Heart failure, elevated BNP, Shortness of breath HPI- 62 yo male presented to ED with his daughter for increased shortness of b reath and weakness yesterday. Was noted to have lung mass on CT chest, electrolyte abnormalities- hyponatremia, hypokalemia, hypomagnesemia; BLE edema. Admits increased weight, leg swelling, shortness of breath with minimal exertion, + orthopnea, diarrhea without N/V. Denied chest pain, palpitations, bleeding tendencies or blood in his stools. Denied recent illness, fever, or chills. Admits increased weakness, fatigue, poor appetite. States this last week he has needed to sleep in a recliner r/t shortness of breath. Admits to smoking 1 ppd for at least 30 years, drinking at least of 6 pack of beer/day, and vodka- states he buys a new bottle every 3-4 days. Denied personal h/o heart disease, cardiac cath or stents, heart failure. States family h/o of cancer is quite prevalent but no early cardiac disease/NE or sudden . Denied any h/o heart surgery or procedures. cc:: CC: Olivia Mari DO Review of Systems ROS Status of ROS 10 or more systems reviewed and unremarkable except as noted in history and below Constitutional Reports: fatigue and malaise Cardiovascular Reports: edema, swelling of feet/ankles, shortness of breath with exertion and shortness of breath when lying down; Denies: chest pain, palpitations or lightheadedness Respiratory Reports: shortness of breath Musculoskeletal Reports: extremity swelling Neurological Reports: weakness in extremities Psychiatric Denies: irritability, visual hallucinations, auditory hallucin ations, tactile hallucinations, suicidal ideation or homicidal ideation PFSH PFSH Social History Smoking status: Current every day smoker Meds Home Medications and Allergies Home Medications Medication Instructions Recorded Confirmed Type metoprolol succinate 50 mg 50 mg PO BID 07/26/22 07/26/22 History tablet,extended release 24 hr Allergies Allergy/AdvReac Type Severity Reaction Status Date / Time No Known Drug Allergies Allergy Verified 07/26/22 20:07 Exam Constitutional Vital Signs - 24 hr 07/27/22 15:30 07/27/22 15:56 07/27/22 18:09 Temperature Pulse Rate 80 96 H Pulse Rate [Monitor] Respiratory Rate Blood Pressure 158/85 H Blood Pressure [Left Arm] Pulse Oximetry Oxygen Delivery Method Oxygen Delivery Flow Rate 07/27/22 19:00 07/27/22 20:00 07/27/22 20:20 Temperature Pulse Rate 89 Pulse Rate [Monitor] 85 Respiratory Rate 18 Blood Pressure 170/92 H Blood Pressure [Left Arm] Pulse Oximetry Oxygen Delivery Method Oxygen Delivery Flow Rate 07/27/22 21:14 07/27/22 22:23 07/27/22 23:00 Temperature 98.2 F Pulse Rate 81 86 Pulse Rate [Monitor] Respiratory Rate 18 Blood Pressure Blood Pressure [Left Arm] 167/95 H 147/75 H Pulse Oximetry 90 L Oxygen Delivery Method Room Air Oxygen Delivery Flow Rate 07/28/22 00:00 07/27/22 23:00 07/28/22 02:00 Temperature Pulse Rate 92 H 82 Pulse Rate [Monitor] Respiratory Rate Blood Pressure 162/88 H Blood Pressure [Left Arm] Pulse Oximetry Oxygen Delivery Method Oxygen Delivery Flow Rate 07/28/22 04:01 07/28/22 04:00 07/28/22 03:00 Temperature Pulse Rate 78 Pulse Rate [Monitor] Respiratory Rate 18 Blood Pressure 159/79 H Blood Pressure [Left Arm] Pulse Oximetry Oxygen Delivery Method Oxygen Delivery Flow Rate 07/28/22 03:55 07/28/22 05:27 07/28/22 06:00 Temperature 97.5 F L 97.6 F Pulse Rate 71 91 H 94 H Pulse Rate [Monitor] Respiratory Rate 14 18 Blood Pressure Blood Pressure [Left Arm] 159/79 H 148/85 H Pulse Oximetry 87 L 97 Oxygen Delivery Method Room Air Nasal Cannula Oxygen Delivery Flow Rate 2 07/28/22 06:18 07/28/22 08:05 07/28/22 10:04 Temperature Pulse Rate 102 H 101 H Pulse Rate [Monitor] Respiratory Rate Blood Pressure 146/90 H Blood Pressure [Left Arm] Pulse Oximetry Oxygen Delivery Method Oxygen Delivery Flow Rate 07/28/22 11:55 07/28/22 11:58 07/28/22 13:05 Temperature Pulse Rate 99 H Pulse Rate [Monitor] Respiratory Rate Blood Pressure 126/85 H Blood Pressure [Left Arm] Pulse Oximetry 91 L Oxygen Delivery Method Room Air Oxygen Delivery Flow Rate 07/28/22 13:06 07/28/22 14:06 Temperature 97.6 F Pulse Rate 102 H 98 H Pulse Rate [Monitor] Respiratory Rate 18 Blood Pressure Blood Pressure [Left Arm] 126/85 H Pulse Oximetry 90 L Oxygen Delivery Method Room Air Oxygen Delivery Flow Rate HENMT Mouth: oral and palatal mucosa normal Neck & C-Spine General: normal visual inspection and JVD Respiratory Effort & inspection: able to speak in complete sentences and symmetric chest movement; non tachypneic and no respiratory distress Auscultation: diminished lung sounds (B/L diminished bases) bilateral Cardio Common normals: regular rate, regular rhythm, S1 normal heart sound, S2 normal heart sound, no gallops, no murmurs, no rub and peripheral pulses 2+ throughout Jugular venous distention: JVD (+ JVD) Palpation: normal PMI Rate: regular rate Rhythm: regular rhythm Heart sounds: S1 normal and S2 normal; no gallops and no rubs GI Common normals: Normal to inspection, nondistended, normoactive bowel sounds present and soft to palpation Extremity Common normals: clubbing, cyanosis or edema Other: BLE 2= pitting edema Neuro Common normals: oriented x3, CN's II-XII intact bilaterally, moves all extremities and no focal motor deficits Psych Common normals: mental status grossly normal, thought process normal, cooperative and affect normal Results Labs Labs: Short CBC 07/28/22 Range/Units 09:52 WBC 11.5 H (4.0-11.0) 10^3/uL Hgb 9.0 L (14.0-18.0) g/dL Hct 25.2 L (42.0-54.0) % Plt Count 409 (150-450) 10^3/uL BMP 07/27/22 07/27/22 07/28/22 16:00 21:56 04:27 Sodium 134 L 132 L 133 L Potassium 1.9 L* 2.0 L* 2.1 L* Chloride 94 L 93 L 95 L Carbon Dioxide 32.2 H 31.3 32.2 H BUN 12.0 10.0 7.0 Creatinine 0.71 0.74 0.76 Glucose 93 105 96 Calcium 5.6 L* 5.4 L* 5.5 L* 07/28/22 09:52 Sodium 134 L Potassium 2.3 L* Chloride 94 L Carbon Dioxide 34.4 H BUN 6.0 L Creatinine 0.74 Glucose 111 H Calcium 6.0 L Liver Function 07/27/22 07/27/22 07/28/22 Range/Units 16:00 21:56 04:27 Total Bilirubin 1.1 H 0.9 0.8 (0.2-1.0) mg/dL AST 95 H 88 H 76 H (15-37) U/L ALT 62 59 54 (16-63) U/L Alkaline Phosphatase 61 59 54 (46-116) U/L Albumin 1.9 L 1.9 L 1.8 L (3.4-5.0) g/dL 07/28/22 Range/Units 09:52 Total Bilirubin 0.9 (0.2-1.0) mg/dL AST 91 H (15-37) U/L ALT 62 (16-63) U/L Alkaline Phosphatase 62 (46-116) U/L Albumin 2.1 L (3.4-5.0) g/dL ECG Interpretation: Telemetry- remains in sinus rhythm with PVCs Additional Findings Additional findings: Echocardiogram just completed and d/w data technical lead- preliminary results states normal LVSF, EF and RV function, normal rt sided pressures Assessment and Plan Assessment and Plan (1) Adult failure to thrive: Assessment and Plan: As per primary service (2) New onset of congestive heart failure: Assessment and Plan: [facility] III- Most likely Acute on chronic Diastolic heart failure. Currently appears fluid overloaded with elevated BNP, normal renal function, multiple electrolyte abnormalities- being replaced per primary service. Awaiting echocardiogram final results to determine if Systolic dysfunction is present, but most likely is Diastolic heart failure. Continue diuresis with lasix IV and replace electrolytes to maintain K+>4 and Mag> 2. Fluid restriction 1.5-2L/day, daily weights, monitor renal function and electrolytes daily. Currently Alcoholism is likely component to acute heart failure, electrolyte imbalance. May need nephrology referral for electrolyte imbalance. (3) Generalized weakness: Assessment and Plan: as per primary service (4) Mass of upper lobe of left lung: Assessment and Plan: as per primary service and Oncology- possible biopsy of lung mass pending (5) Acute hypokalemia: Assessment and Plan: Primary service is replacing electrolytes IV and PO (6) Hypomagnesemia: Assessment and Plan: primary service is replacing with IVPB and oral may be r/t diarrhea pt admits to today (7) Hypocalcemia: Assessment and Plan: as per primary service (8) Alcoholic: Assessment and Plan: as per primary service- CHF may be Alcohol related, electrolyte imbalance and diarrhea are most likely r/t ETOH abuse. (9) Oral pharyngeal candidiasis: Assessment and Plan: as per primary service (10) Anemia: Assessment and Plan: as per primary service Plan continue diuresis, electrolyte replacement Pending echocardiogoram results Oncology managing lung mass Brian Teixeira NP [facility] Reviewed with Dr Lemosn for further recommendations
[2022-07-29] VITALS (17 sets, daily range): BP systolic 133–148; BP diastolic 81–86; PULSE 68–180; RESP 18–20; TEMP 36.2–36.8; O2SAT 70–95
[2022-07-29 05:00] LABS: Basophils Percent Auto 0.3 % (0.2-2.0); Eosinophils Absolute Auto 0.1 10^3/uL (0.0-0.7); Eosinophils Percent Auto 1.4 % (0.9-7.0); Hemoglobin 7.5 g/dL (14.0-18.0); Immature Granulocytes Abs Auto 0.13 10^3/uL (0.00-0.03); Immature Granulocytes Pct Auto 1.3 % (0.0-0.5); Lymphocytes Absolute Auto 1.8 10^3/uL (1.2-3.8); Lymphocytes Percent Auto 18.6 % (20.5-60.0); Mean Corpuscular HGB Conc 36.4 g/dL (29.9-35.2); Mean Corpuscular Hemoglobin 32.9 pg (25.9-34.0); Mean Corpuscular Volume 90.4 fL (80.0-94.0); Mean Platelet Volume 10.1 fL (9.5-13.5); Monocytes Absolute Auto 0.7 10^3/uL (0.3-0.8); Monocytes Percent Auto 7.1 % (1.7-12.0); Neutrophils Absolute Auto 7.1 10^3/uL (1.4-6.5); Neutrophils Percent Auto 71.3 % (43.0-75.0); Platelet Count 379 10^3/uL (150-450); Red Blood Count 2.28 10^6/uL (4.70-6.10); Red Cell Distribution Width 14.3 % (11.0-15.0); White Blood Count 9.9 10^3/uL (4.0-11.0)
[2022-07-29] MEDS: NYSTATIN 500,000 UNIT/5 ML ORAL.SUSP 500000 UNIT PO ×4 (05:19→20:30)
[2022-07-29 05:21] LABS: Hematocrit 20.6 % (42.0-54.0)
[2022-07-29 05:36] LABS: Alanine Aminotransferase 53 U/L (16-63); Albumin Globulin Ratio 0.5; Albumin Level 1.8 g/dL (3.4-5.0); Alkaline Phosphatase 55 U/L (46-116); Aspartate Amino Transferase 75 U/L (15-37); BUN Creatinine Ratio 9.6; Bilirubin Total 0.7 mg/dL (0.2-1.0); Calcium 6.5 mg/dL (8.5-10.1); Carbon Dioxide 31.6 mmol/L (21.0-32.0); Chloride 93 mmol/L (98-107); Estimated GFR (African America >60 (>=60); Estimated GFR (Non-African Ame >60 (>=60); Globulin 3.6 g/dL; Glucose 94 mg/dL (74-106); Magnesium 1.2 mg/dL (1.8-2.4); Sodium 131 mmol/L (136-145); Total Protein 5.4 g/dL (6.4-8.2)
[2022-07-29 06:21] LABS: Potassium 2.6 mmol/L (3.5-5.1)
--- NOTE | 2022-07-29 07:00 | US_ITS ---
The [address] [address] Patient Name: BOBBY GRAJEDA MRN: [id number] date: 1960 Sex: M Assigned Patient Location: [place] Current Patient Location: [place] Accession/Order Number: [id number] Exam Date: 07/29/2022 07:40 Report Date: 07/29/2022 10:31 At the request of: ERIKA MAYER Procedure: US right upper quadrant EXAMINATION: US right upper quadrant HISTORY: fatty liver seen on CT, alcoholism, transaminitis COMPARISON: CT chest 07/27/2022, CT abdomen pelvis 06/26/2019 TECHNIQUE: Transabdominal evaluation of the right upper quadrant. FINDINGS: LIVER: Geographic shaped 1.6 cm hypoechoic area within inferior right hepatic lobe, nonspecific. Generalized increased echogenicity throughout the liver compatible with fatty infiltration. PORTAL VEIN: Duplex Doppler demonstrates normal hepatopetal flow pattern with flow velocity averaging 27 cm/s. GALLBLADDER: Completely contracted, likely accounting for the thickened escobar, 3.6 mm. No stones or free fluid. Negative sonographic Gomez's sign. BILIARY: No abnormal dilation or stones. Common bile duct diameter is within normal limits. PANCREASE: No visible mass, abnormal atrophy, or duct dilation. KIDNEY: No hydronephrosis. No visible mass or stones. Size: 12.0 x 7.4 x 7.7 cm IMPRESSION: 1. Increased hepatic echotexture suggestive of fatty infiltration. 2. Nonspecific geographic shaped hypoechoic lesion within inferior right hepatic lobe; suspect focal fatty sparing. This area was not included on the recent CT chest study. CT abdomen with IV contrast using multiphasic liver protocol could be performed if there is strong clinical concern for malignancy. Electronically authenticated by: LEIGH PUCKETT Date: 07/29/2022 10:31
[2022-07-29] MEDS: FOLIC ACID 1 MG TABLET PO (08:50)
[2022-07-29] MEDS: POTASSIUM CHLORIDE 10 MEQ ER TABLET 40 MEQ PO ×2 (08:50→17:37)
[2022-07-29] MEDS: MAGNESIUM OXIDE 400 MG TABLET 800 MG PO ×2 (08:50→20:29)
[2022-07-29] MEDS: THIAMINE MONONITRATE (VIT B1) 100 MG TABLET PO (08:50)
[2022-07-29] MEDS: MULTIVITAMIN TABLET 400 TAB PO (08:50)
[2022-07-29] MEDS: METOPROLOL SUCCINATE 50 MG TAB.ER.24H PO ×2 (08:50→20:29)
[2022-07-29] MEDS: SPIRONOLACTONE 25 MG TABLET PO (10:19)
--- NOTE | 2022-07-29 10:21 | REH.PTDLY ---
Physical Therapy Daily Note PT Daily Note/Assess Start: 07/28/22 11:28 Freq: Status: Active Protocol: Document 07/29/22 10:17 MARIOLA (Rec: 07/29/22 10:21 MARIOLA [id number]) Physical Therapy Daily Note/Assessment Time In 09:43 Time Out 09:58 Pain Level 0 Subjective Pt reports feeling better, but they want me to stay another day. Therapeutic Exercise Minutes (minutes) 9 Therapeutic Exercise Units 1 Therapeutic Exercise Treatment Instructed pt in B LE standing exs 10x ea with pt using HEP handout to perform exs, minimal cues needed from therapist as to how to perform the exercise. Pt uses 1-2 hand support on counter Therapeutic Activity Minutes (minutes) 6 Therapeutic Activity Units 1 Chair Transfer Ability Independent Therapeutic Activity Comments Gait training with SC 120 feet with fatigue in B LEs SBA. Denies any SOB. Total Therapy Minutes 15 Total Physical Therapy Units 2 Daily Note Summary Progressed gait distance today with pt using SC. Good mobility noted and safety. Pt fatigues in calf muscles with gait. Able to perform all standing exs asked of him as well. Pt will be safe to return home at [place] from PT stand point
--- NOTE | 2022-07-29 10:51 | CM.NOTE ---
Rounds made with Dr. Mari, no discharge for today. Discussed with pt about guided CT for lung mass biopsy tomorrow. Pt agrees to procedure.
[2022-07-29 10:59] LABS: INR 0.97; Prothrombin Time 10.3 sec (9.0-11.6)
[2022-07-29 11:00] LABS: Occult Blood Negative
[2022-07-29 11:02] LABS: Partial Thromboplastin Time 25.9 sec (22.3-36.2)
[2022-07-29] MEDS: FUROSEMIDE 20 MG/2 ML VIAL IVP (12:15)
[2022-07-29] MEDS: PANTOPRAZOLE SODIUM 40 MG VIAL IV (12:15)
--- NOTE | 2022-07-29 12:54 | PM.PN ---
Progress Note: Subjective Subjective Interval history: patient is a 62-year-old gentleman who presented to the Emergency Room after family specifically daughter was concerned about patient's decline. Patient has become very weak, poor appetite has been having a cough and states that's been going on for about a year has experienced some weight loss and cachexia, and poor appetite. He said he has been experiencing some night sweats as well. His ex- who lived with him recently within the last month and she also helps care for him. He currently lives alone with two dogs and reports that he has been a daily drinker for several years he admits to six or more beers a day or more than a 5th of vodka a day. He has never tried to quit in the past but denies having any history of delirium tremens or seizure alcohol withdrawal history. He does admit to drinking prior to admission last night. A blood alcohol level was less than three. on Chest x-ray there was a finding of a left upper lung mass patient reports he doesn't follow much with any doctors he has seen Dr. Freeman in the past. He has also been a smoker for many years. He has been experiencing some sore throat and mouth irritation to the point where he has picked off some discharge in his throat. He denies having any liver cirrhosis, any bleeding from vomiting or stool. He was also found to be severely hypokalemic hypo-magnesium at and hypocalcemia. Low albumin that shows significant malnourishment and failure to thrive. He also denies any previous history of hepatitis or HIV. Denies any history of IV drug use. this morning patient notes overnight developed a really productive cough. He denies any fevers or chills, due to the finding of high suspicion for malignancy on the left upper lobe of the lung oncology did come and speak with patient about further plan of care and possible IR biopsy. cardiology was also consulted for new onset heart failure. decrease in hemoglobin this morning this morning patient reports he is feeling much better and is wanting to go home. Exam Narrative Exam Narrative: General: Patient is alert, and oriented to person, place and time with severe cachexia Skin: skin pallor Head: atraumatic, acephalic Eyes: PERRLA, no nystagmus present, conjunctiva clear, no scleral icterus Ears: normal gross auditory acuity Nose: symmetric, no discharge, no maxillary or frontal sinus tenderness Mouth/Throat: diffuse erythema, with white exudate Neck: no masses palpated, normal thyroid, no JVD or audible carotid bruits Heart: Normal rate and rhythm, no murmurs/rubs/gallops Lungs: no audible wheezes, crackles and normal breath sounds all lung hi Abdomen: Normal audible bowel sounds, no distension, No palpable masses, no organomegaly, no rebound/guarding/ or rigidity Musculoskeletal: muscle atrophy noted, +1 swelling bilateral lower extremities Neuro: CN II-X grossly intact, normal sensation upper and lower extremities Constitutional Vital Signs - 24 hr 07/28/22 13:05 07/28/22 13:06 07/28/22 14:06 Temperature 97.6 F Pulse Rate 102 H 98 H Respiratory Rate 18 Blood Pressure 126/85 H Blood Pressure [Left Arm] 126/85 H Blood Pressure [Right Arm] Pulse Oximetry 90 L Oxygen Delivery Method Room Air Oxygen Delivery Flow Rate Fraction of Inspired Oxygen 07/28/22 15:57 07/28/22 18:22 07/28/22 21:00 Temperature Pulse Rate 94 H 96 H Respiratory Rate Blood Pressure 159/91 H Blood Pressure [Left Arm] Blood Pressure [Right Arm] Pulse Oximetry Oxygen Delivery Method Oxygen Delivery Flow Rate Fraction of Inspired Oxygen 07/28/22 22:00 07/28/22 19:37 07/28/22 20:34 Temperature 98.2 F Pulse Rate 87 84 Respiratory Rate 15 Blood Pressure Blood Pressure [Left Arm] Blood Pressure [Right Arm] 159/91 H Pulse Oximetry 95 98 Oxygen Delivery Method Nasal Cannula Room Air Oxygen Delivery Flow Rate 2 2 Fraction of Inspired Oxygen 07/28/22 21:37 07/28/22 23:33 07/29/22 01:25 Temperature Pulse Rate 82 76 76 Respiratory Rate Blood Pressure Blood Pressure [Left Arm] Blood Pressure [Right Arm] Pulse Oximetry Oxygen Delivery Method Oxygen Delivery Flow Rate Fraction of Inspired Oxygen 07/29/22 03:25 07/29/22 04:17 07/29/22 05:14 Temperature 98.2 F Pulse Rate 79 68 Respiratory Rate 20 Blood Pressure Blood Pressure [Left Arm] Blood Pressure [Right Arm] 148/81 H Pulse Oximetry 93 L 94 L Oxygen Delivery Method Room Air Room Air Oxygen Delivery Flow Rate Fraction of Inspired Oxygen 07/29/22 05:52 07/29/22 08:03 07/29/22 09:49 Temperature Pulse Rate 70 78 Respiratory Rate Blood Pressure Blood Pressure [Left Arm] Blood Pressure [Right Arm] Pulse Oximetry Oxygen Delivery Method Room Air Oxygen Delivery Flow Rate Fraction of Inspired Oxygen 93 07/29/22 10:10 07/29/22 12:03 Temperature Pulse Rate 90 86 Respiratory Rate Blood Pressure Blood Pressure [Left Arm] Blood Pressure [Right Arm] Pulse Oximetry Oxygen Delivery Method Oxygen Delivery Flow Rate Fraction of Inspired Oxygen Progress Note: Objective Labs Labs: Short CBC 07/29/22 Range/Units 04:35 WBC 9.9 (4.0-11.0) 10^3/uL Hgb 7.5 L (14.0-18.0) g/dL Hct 20.6 L* (42.0-54.0) % Plt Count 379 (150-450) 10^3/uL BMP 07/29/22 04:35 Sodium 131 L Potassium 2.6 L* Chloride 93 L Carbon Dioxide 31.6 BUN 7.0 Creatinine 0.73 Glucose 94 Calcium 6.5 L Liver Function 07/29/22 Range/Units 04:35 Total Bilirubin 0.7 (0.2-1.0) mg/dL AST 75 H (15-37) U/L ALT 53 (16-63) U/L Alkaline Phosphatase 55 (46-116) U/L Albumin 1.8 L (3.4-5.0) g/dL Progress Note: A&P Assessment and Plan (1) Acute hypokalemia: Assessment and Plan: replace IV and oral potassium (2) Hypomagnesemia: Assessment and Plan: continue to replace IV and oral magnesium (3) Hypocalcemia: Assessment and Plan: continue to replace IV and oral calcium (4) New onset of congestive heart failure: Assessment and Plan: hypoxia noted fluids were stopped, patient was given a dose of IV Lasix 40 mg once. This morning elevated proBNP? at sixteen thousand ,get an echocardiogram showed diastolic dysfunction with preserved EF, given this is new onset and new diagnosis for patient will also get a cardiology consult. Given patient's extreme electrolyte abnormalities diuresis is very risky and this is what cards recommended. I will place on lasix 20mg IV daily and spironolactone 25mg daily to spar some potassium. (5) Mass of upper lobe of left lung: Assessment and Plan: CT scan is concerning for malignancy, will consult oncology for further plan of care; possible IR biopsy tomorrow, I will also check interferon gold for possible TB, results pendingl; risks and benefits of biopsy discussed with patient he would like to precede with biopsy (6) Adult failure to thrive: Assessment and Plan: patient with a low albumin, signifying significant malnourishment as well as several electrolyte abnormalities, will get a dietary nutrition consult who added ensure, Could be from possible lung cancer or significant history of alcoholism (7) Generalized weakness: Assessment and Plan: related to his malnourishment and multiple vitamin deficiencies, pt/ot (8) Alcoholic: Assessment and Plan: watch for any signs of withdrawal or seizure activity. Patient has no prior history of DTs or seizures. elevated AST compared to a LT, right upper quadrant abdominal ultrasound showed fatty liver but hyodensity of the right lobe concerning recommended CT which we will get (9) Oral pharyngeal candidiasis: Assessment and Plan: continue oral nystatin (10) Anemia: Assessment and Plan: b12 level normal, iron normal, stool occult negative, type and screen today (11) Liver mass: Assessment and Plan: seen on ultrasound, check CT Plan patient is a full code patient is an inpatient status and is expected stay more than two midnights
--- NOTE | 2022-07-29 13:11 | CT_ITS ---
[address] [address] Patient Name: BOBBY GRAJEDA MRN: [id number] date: 1960 Sex: M Assigned Patient Location: [place] Current Patient Location: Accession/Order Number: [id number] Exam Date: 07/29/2022 15:55 Report Date: 07/29/2022 18:50 At the request of: ERIKA MAYER Procedure: CT abdomen wo/w con EXAM: CT abdomen wo/w con HISTORY: mass in liver seen on ultrasound, tri phasic Liver protocol COMPARISON: None. TECHNIQUE: Axial CT imaging was performed with and without contrast through the abdomen . Multiplanar reformats were performed. Dose reduction techniques were achieved by using automated exposure control and/or adjustment of mA and/or kV according to patient size and/or use of iterative reconstruction technique. FINDINGS: Lung bases: Small left pleural effusion with left basilar linear atelectasis and/or scarring. GI upper: Small hiatal hernia. Liver: Hepatic steatosis. Normal size and contour. There is a 1.3 cm lesion in segment 6 (series 10, image 44 and series 11, image 46) with discontinuous peripheral nodular enhancement and centripetal filling on subsequent phases, representing hemangioma. The lesion is also seen on the prior study from 06/26/2019 and is unchanged in size. Gallbladder: No significant abnormality. No cholelithiasis. Biliary system: No intra or extrahepatic biliary ductal dilatation. Spleen: Normal size. Pancreas: Unremarkable. Adrenal glands: Normal adrenal glands. Kidneys/ureters: There is bilateral perirenal fat stranding. Finding is nonspecific and can be due to infection/inflammation. Correlation with urinalysis is recommended. Normal contours. No hydronephrosis. No nephrolithiasis or ureterolithiasis. Vessels: No aneurysm. Lymph Nodes: No lymphadenopathy. Lower GI: Unremarkable Peritoneal cavity: No free fluid or pneumoperitoneum. Bones: No acute bony abnormality. Soft tissues: No acute finding. Additional findings: None. IMPRESSION: Hepatic steatosis. 1.3 cm segment 6 hemangioma, stable since 06/26/2019. Bilateral perirenal fat stranding. Finding is nonspecific and can be due to infection/inflammation. Correlation with urinalysis is recommended. Electronically authenticated by: MACIE GONZALES Date: 07/29/2022 18:50
[2022-07-29 21:40] LABS: Bilirubin Urine NEGATIVE (NEGATIVE); Blood Urine TRACE-I (NEGATIVE); Clarity Urine CLEAR (CLEAR); Color Urine LT. YELLOW (YELLOW); Glucose Urine UA NEGATIVE (NEGATIVE); Ketones Urine NEGATIVE (NEGATIVE); Leukocyte Esterase Urine NEGATIVE (NEGATIVE); Nitrite Urine NEGATIVE (NEGATIVE); Protein Urine NEGATIVE (NEG/TRACE); Specific Gravity Urine <=1.005 (1.005-1.025); Urobilinogen Urine 0.2 EU/dL (0.2-1.0)
[2022-07-29 21:41] LABS: Urine Microscopic Indicated NO
[2022-07-29 21:52] LABS: Amphetamine Screen Urine NEGATIVE (NEGATIVE); Cannabinoid Screen Urine NEGATIVE (NEGATIVE); Cocaine Screen Urine NEGATIVE (NEGATIVE); Methamphetamines Screen Urine NEGATIVE (NEGATIVE); Opiate Screen Urine NEGATIVE (NEGATIVE); Phencyclidine Screen Urine NEGATIVE (NEGATIVE)
[2022-07-29 21:53] LABS: Barbiturates Screen Urine NEGATIVE (NEGATIVE); Benzodiazepines Screen Urine NEGATIVE (NEGATIVE); Buprenorphine Screen Urine NEGATIVE (NEGATIVE); Methadone Screen Urine NEGATIVE (NEGATIVE); Oxycodone Screen Urine NEGATIVE (NEGATIVE); Tricyclic Antidepressant Urine NEGATIVE (NEGATIVE)
[2022-07-30] VITALS (25 sets, daily range): BP systolic 102–150; BP diastolic 62–83; PULSE 71–97; RESP 16–19; TEMP 36.3–36.8; O2SAT 79–97
[2022-07-30] MEDS: NYSTATIN 500,000 UNIT/5 ML ORAL.SUSP 500000 UNIT PO ×4 (05:00→21:36)
[2022-07-30 05:05] LABS: Basophils Percent Auto 0.3 % (0.2-2.0); Eosinophils Absolute Auto 0.1 10^3/uL (0.0-0.7); Immature Granulocytes Abs Auto 0.11 10^3/uL (0.00-0.03); Immature Granulocytes Pct Auto 1.1 % (0.0-0.5); Lymphocytes Absolute Auto 1.9 10^3/uL (1.2-3.8); Lymphocytes Percent Auto 18.3 % (20.5-60.0); Mean Corpuscular HGB Conc 36.6 g/dL (29.9-35.2); Mean Corpuscular Hemoglobin 33.2 pg (25.9-34.0); Mean Corpuscular Volume 90.5 fL (80.0-94.0); Mean Platelet Volume 9.5 fL (9.5-13.5); Monocytes Absolute Auto 0.8 10^3/uL (0.3-0.8); Monocytes Percent Auto 7.8 % (1.7-12.0); Neutrophils Absolute Auto 7.3 10^3/uL (1.4-6.5); Neutrophils Percent Auto 71.5 % (43.0-75.0); Platelet Count 387 10^3/uL (150-450); Red Blood Count 2.11 10^6/uL (4.70-6.10); White Blood Count 10.1 10^3/uL (4.0-11.0)
[2022-07-30 05:11] LABS: Hematocrit 19.1 % (42.0-54.0)
[2022-07-30 05:20] LABS: Alanine Aminotransferase 52 U/L (16-63); Albumin Globulin Ratio 0.5; Albumin Level 1.7 g/dL (3.4-5.0); Alkaline Phosphatase 54 U/L (46-116); Anion Gap 5.9; Aspartate Amino Transferase 75 U/L (15-37); BUN Creatinine Ratio 10.5; Bilirubin Total 0.4 mg/dL (0.2-1.0); Calcium 6.3 mg/dL (8.5-10.1); Carbon Dioxide 34.6 mmol/L (21.0-32.0); Chloride 95 mmol/L (98-107); Estimated GFR (African America >60 (>=60); Estimated GFR (Non-African Ame >60 (>=60); Globulin 3.5 g/dL; Glucose 102 mg/dL (74-106); Sodium 133 mmol/L (136-145); Total Protein 5.2 g/dL (6.4-8.2)
[2022-07-30 05:53] LABS: Magnesium 0.9 mg/dL (1.8-2.4); Potassium 2.5 mmol/L (3.5-5.1)
[2022-07-30] MEDS: PANTOPRAZOLE SODIUM 40 MG VIAL IV (08:57)
[2022-07-30] MEDS: POTASSIUM CHLORIDE 40 MEQ in 0.9 % SODIUM CHLORIDE 250 ML 67.5 MEQ IV (08:57)
[2022-07-30] MEDS: FUROSEMIDE 20 MG/2 ML VIAL IVP (08:57)
[2022-07-30] MEDS: FOLIC ACID 1 MG TABLET PO (08:58)
[2022-07-30] MEDS: SPIRONOLACTONE 25 MG TABLET PO (08:58)
[2022-07-30] MEDS: THIAMINE MONONITRATE (VIT B1) 100 MG TABLET PO (08:58)
[2022-07-30] MEDS: MULTIVITAMIN TABLET 400 TAB PO (08:58)
[2022-07-30] MEDS: POTASSIUM CHLORIDE 10 MEQ ER TABLET 40 MEQ PO ×2 (08:58→17:01)
[2022-07-30] MEDS: METOPROLOL SUCCINATE 50 MG TAB.ER.24H PO ×2 (08:58→21:35)
[2022-07-30] MEDS: MAGNESIUM OXIDE 400 MG TABLET 800 MG PO ×2 (08:58→21:34)
--- NOTE | 2022-07-30 11:50 | CM.NOTE ---
Rounds made with Dr. Mari, no discharge for today. Discussed with pt about blood transfusion today, labs and ultrasound results.
--- NOTE | 2022-07-30 11:55 | PT.DAILY ---
Physical Therapy Daily Note PT Daily Note/Assess Start: 07/28/22 11:28 Freq: Status: Active Protocol: Document 07/30/22 10:30 INESSA (Rec: 07/30/22 11:55 INESSA [id number]) Physical Therapy Daily Note/Assessment Time In/Time Out Time In 10:30 Time Out 10:49 Pain In Pain N/A Pain Out Pain N/A Subjective Subjective Pt sitting in BS chair upon arrival. Agrees to PT. Denies pain currently just stiffness from sitting around. Therapeutic Exercise Time Therapeutic Exercise Minutes (minutes) 5 Therapeutic Exercise Units 0 Therapeutic Exercise Treatment Therapeutic Exercise Treatment Reviewed standing HEP with pt. Pt performs 8x standing ex 10x ea to improve strength and endurance with activity. No rest breaks needed today. Therapeutic Activity Time Therapeutic Activity Minutes (minutes) 10 Therapeutic Activity Units 1 Therapeutic Activity Treatment Chair Transfer Ability Modified Independent Therapeutic Activity Comments Sit>stand from BS chair Mod I with IV pole. Pt amb 200' with IV pole with decreased sammi which in return increased time with gait. Total Physical Therapy Time Total Therapy Minutes 15 Total Physical Therapy Units 1 Summary Daily Note Summary IMproved gait duration/ distance today using IV pole vs SC. NO pain. reduced stiffness post rx.
--- NOTE | 2022-07-30 12:23 | CM.NOTE ---
Important Message From Medicare discussed with pt, pt verbalizes understanding and signs paper. Original given to pt and copy placed on pt's chart.
--- NOTE | 2022-07-30 12:58 | P.PN_ITS ---
Progress Note: Subjective Subjective Interval history: patient is a 62-year-old gentleman who presented to the Emergency Room after family specifically daughter was concerned about patient's decline. Patient has become very weak, poor appetite has been having a cough and states that's been going on for about a year has experienced some weight loss and cachexia, and poor appetite. He said he has been experiencing some night sweats as well. His ex- who lived with him recently within the last month and she also helps care for him. He currently lives alone with two dogs and reports that he has been a daily drinker for several years he admits to six or more beers a day or more than a 5th of vodka a day. He has never tried to quit in the past but denies having any history of delirium tremens or seizure alcohol withdrawal history. He does admit to drinking prior to admission last night. A blood alcohol level was less than three. on Chest x-ray there was a finding of a left upper lung mass patient reports he doesn't follow much with any doctors he has seen Dr. Freeman in the past. He has also been a smoker for many years. He has been experiencing some sore throat and mouth irritation to the point where he has picked off some discharge in his throat. He denies having any liver cirrhosis, any bleeding from vomiting or stool. He was also found to be severely hypokalemic hypo-magnesium at and hypocalcemia. Low albumin that shows significant malnourishment and failure to thrive. He also denies any previous history of hepatitis or HIV. Denies any history of IV drug use. this morning patient notes overnight developed a really productive cough. He denies any fevers or chills, due to the finding of high suspicion for malignancy on the left upper lobe of the lung oncology did come and speak with patient about further plan of care and possible IR biopsy. cardiology was also consulted for new onset heart failure. decrease in hemoglobin caused patient to not get his IR guided lung biopsy but he is amendable to doing this outpatient, will transfuse 2 units today, continue to replace electrolytes. Urinating frequently due to lasix, breathing improved today. Patient asks everyday if he can go home. Exam Narrative Exam Narrative: General: Patient is alert, and oriented to person, place and time with severe cachexia Skin: skin pallor Head: atraumatic, acephalic Eyes: PERRLA, no nystagmus present, conjunctiva clear, no scleral icterus Ears: normal gross auditory acuity Nose: symmetric, no discharge, no maxillary or frontal sinus tenderness Mouth/Throat: diffuse erythema, with white exudate Neck: no masses palpated, normal thyroid, no JVD or audible carotid bruits Heart: Normal rate and rhythm, no murmurs/rubs/gallops Lungs: no audible wheezes, crackles and normal breath sounds all lung hi Abdomen: Normal audible bowel sounds, no distension, No palpable masses, no organomegaly, no rebound/guarding/ or rigidity Musculoskeletal: muscle atrophy noted, +1 swelling bilateral lower extremities Neuro: CN II-X grossly intact, normal sensation upper and lower extremities Constitutional Vital Signs - 24 hr 07/29/22 14:10 07/29/22 14:10 07/29/22 14:26 Temperature 97.1 F L Pulse Rate 70 102 H Respiratory Rate 18 Blood Pressure 137/86 H Blood Pressure [Left Arm] 137/86 H Pulse Oximetry 92 L Oxygen Delivery Method Room Air 07/29/22 16:31 07/29/22 19:31 07/29/22 19:47 Temperature Pulse Rate 89 Respiratory Rate 18 Blood Pressure Blood Pressure [Left Arm] Pulse Oximetry 95 Oxygen Delivery Method Room Air 07/29/22 19:54 07/29/22 21:25 07/29/22 21:53 Temperature 97.7 F Pulse Rate 81 180 H 77 Respiratory Rate 18 Blood Pressure Blood Pressure [Left Arm] 133/84 H Pulse Oximetry 91 L Oxygen Delivery Method Room Air 07/29/22 23:50 07/30/22 02:51 07/30/22 04:28 Temperature Pulse Rate 83 73 Respiratory Rate Blood Pressure Blood Pressure [Left Arm] Pulse Oximetry 95 Oxygen Delivery Method Room Air 07/30/22 04:39 07/30/22 04:59 07/30/22 06:10 Temperature 97.9 F Pulse Rate 72 71 79 Respiratory Rate 18 Blood Pressure Blood Pressure [Left Arm] 123/75 H Pulse Oximetry 90 L Oxygen Delivery Method Room Air 07/30/22 08:31 07/30/22 10:39 07/30/22 10:39 Temperature Pulse Rate 97 H 82 Respiratory Rate Blood Pressure Blood Pressure [Left Arm] Pulse Oximetry 96 Oxygen Delivery Method Room Air 07/30/22 12:09 Temperature Pulse Rate 84 Respiratory Rate Blood Pressure Blood Pressure [Left Arm] Pulse Oximetry Oxygen Delivery Method Progress Note: Objective Labs Labs: Short CBC 07/30/22 Range/Units 04:37 WBC 10.1 (4.0-11.0) 10^3/uL Hgb 7.0 L (14.0-18.0) g/dL Hct 19.1 L* (42.0-54.0) % Plt Count 387 (150-450) 10^3/uL BMP 07/30/22 04:37 Sodium 133 L Potassium 2.5 L* Chloride 95 L Carbon Dioxide 34.6 H BUN 9.0 Creatinine 0.86 Glucose 102 Calcium 6.3 L Liver Function 07/30/22 Range/Units 04:37 Total Bilirubin 0.4 (0.2-1.0) mg/dL AST 75 H (15-37) U/L ALT 52 (16-63) U/L Alkaline Phosphatase 54 (46-116) U/L Albumin 1.7 L (3.4-5.0) g/dL Urine 07/29/22 Range/Units 18:40 Urine Color Lt. yellow (YELLOW) Urine Clarity Clear (CLEAR) Urine pH 6.0 (5.0-9.0) Ur Specific [place] <=1.005 A (1.005-1.025) Urine Protein Negative (NEG/TRACE) mg/dL Urine Glucose (UA) Negative (NEGATIVE) mg/dL Progress Note: A&P Assessment and Plan (1) Acute hypokalemia: Assessment and Plan: replace IV and oral potassium (2) Hypomagnesemia: Assessment and Plan: continue to replace IV and oral magnesium (3) Hypocalcemia: Assessment and Plan: continue to replace IV and oral calcium (4) New onset of congestive heart failure: Assessment and Plan: hypoxia noted fluids were stopped, patient was given a dose of IV Lasix 40 mg once. elevated proBNP? at sixteen thousand ,get an echocardiogram showed diastolic dysfunction with preserved EF, given this is new onset and new diagnosis for patient will also get a cardiology consult. Given patient's extreme electrolyte abnormalities diuresis is very risky and this is what cards recommended. I will place on lasix 20mg IV daily and spironolactone 25mg daily to help with sparing potassium. edema improved today and symptoms. (5) Mass of upper lobe of left lung: Assessment and Plan: CT scan is concerning for malignancy, will consult oncology for further plan of care; possible IR biopsy as outpatient, I will also check interferon gold for possible TB, results pending (6) Adult failure to thrive: Assessment and Plan: patient with a low albumin, signifying significant malnourishment as well as several electrolyte abnormalities, will get a dietary nutrition consult who added ensure, Could be from possible lung cancer or significant history of alcoholism (7) Generalized weakness: Assessment and Plan: related to his malnourishment and multiple vitamin deficiencies, pt/ot (8) Alcoholic: Assessment and Plan: watch for any signs of withdrawal or seizure activity. Patient has no prior history of DTs or seizures. elevated AST compared to a ALT,? right upper quadrant abdominal ultrasound showed fatty liver but hyodensity of the right lobe concerning recommended CT which then showed a stable hemangioma; patient has no desire to quit once he is discharged and does plan to drink (9) Oral pharyngeal candidiasis: Assessment and Plan: continue oral nystatin (10) Anemia: Assessment and Plan: b12 level normal, iron normal, stool occult negative, type and screen today and transfuse 2 units (11) Liver mass: Assessment and Plan: hemangioma findings discussed with patient Plan patient is a full code patient is an inpatient status and is expected stay more than two midnights
[2022-07-30] MEDS: 0.9 % SODIUM CHLORIDE 250 ML IV (19:40)
[2022-07-30] MEDS: ENSURE HP 237 ML LIQUID PO (21:34)
[2022-07-31] VITALS (18 sets, daily range): BP systolic 136–150; BP diastolic 82–84; PULSE 67–82; RESP 16–18; TEMP 36.7–36.8; O2SAT 91–95
[2022-07-31 05:16] LABS: Basophils Percent Auto 0.4 % (0.2-2.0); Eosinophils Absolute Auto 0.1 10^3/uL (0.0-0.7); Eosinophils Percent Auto 0.8 % (0.9-7.0); Hematocrit 24.6 % (42.0-54.0); Hemoglobin 8.8 g/dL (14.0-18.0); Immature Granulocytes Abs Auto 0.22 10^3/uL (0.00-0.03); Immature Granulocytes Pct Auto 2.1 % (0.0-0.5); Lymphocytes Absolute Auto 1.8 10^3/uL (1.2-3.8); Lymphocytes Percent Auto 16.9 % (20.5-60.0); Mean Corpuscular HGB Conc 35.8 g/dL (29.9-35.2); Mean Corpuscular Hemoglobin 32.4 pg (25.9-34.0); Mean Corpuscular Volume 90.4 fL (80.0-94.0); Mean Platelet Volume 9.9 fL (9.5-13.5); Monocytes Absolute Auto 0.8 10^3/uL (0.3-0.8); Monocytes Percent Auto 7.6 % (1.7-12.0); Neutrophils Absolute Auto 7.7 10^3/uL (1.4-6.5); Neutrophils Percent Auto 72.2 % (43.0-75.0); Platelet Count 375 10^3/uL (150-450); Red Blood Count 2.72 10^6/uL (4.70-6.10); Red Cell Distribution Width 14.6 % (11.0-15.0); White Blood Count 10.7 10^3/uL (4.0-11.0)
[2022-07-31 05:22] LABS: C Reactive Protein 4.7 mg/dL (<=1.0); Lactate Dehydrogenase 321 U/L (85-227)
[2022-07-31 05:25] LABS: Alanine Aminotransferase 57 U/L (16-63); Albumin Globulin Ratio 0.5; Albumin Level 1.8 g/dL (3.4-5.0); Alkaline Phosphatase 59 U/L (46-116); Anion Gap 5.5; Aspartate Amino Transferase 85 U/L (15-37); BUN Creatinine Ratio 17.2; Bilirubin Total 0.6 mg/dL (0.2-1.0); Calcium 6.6 mg/dL (8.5-10.1); Carbon Dioxide 29.6 mmol/L (21.0-32.0); Chloride 96 mmol/L (98-107); Estimated GFR (African America >60 (>=60); Estimated GFR (Non-African Ame >60 (>=60); Globulin 3.7 g/dL; Glucose 99 mg/dL (74-106); Magnesium 1.2 mg/dL (1.8-2.4); Potassium 3.1 mmol/L (3.5-5.1); Sodium 128 mmol/L (136-145); Total Protein 5.5 g/dL (6.4-8.2)
[2022-07-31 05:26] LABS: Erythrocyte Sedimentation Rate 40 mm/hr (<=20)
--- NOTE | 2022-07-31 09:12 | REH.PTDLY ---
Physical Therapy Daily Note PT Daily Note/Assess Start: 07/28/22 11:28 Freq: Status: Complete Protocol: Document 07/31/22 09:04 ELHAM (Rec: 07/31/22 09:08 ELHAM [id number]) Physical Therapy Daily Note/Assessment Time In 08:28 Time Out 08:46 Pain Level 0 Pain Level 0 Subjective Pt. up in chair and ready for PT. I just want to go home so I can get some more exercise and get my legs stronger. Therapeutic Exercise Minutes (minutes) 8 Therapeutic Exercise Units 0 Therapeutic Exercise Treatment Pt. instructed in jake LE standing ther ex this date with an increase in reps to 15 x ea. Pt. conts to use 1-2 UE support to complete all exercises. Therapeutic Activity Minutes (minutes) 10 Therapeutic Activity Units 1 Chair Transfer Ability Independent Therapeutic Activity Comments Pt. ind with sit to stand transfers. Amb 200 feet with sc, SBA. VC to use sc vs. trying to carry it with him when hand rail was available. Total Therapy Minutes 18 Total Physical Therapy Units 1 Daily Note Summary Able to progress reps this date without any complaints of pain or fatigue.
[2022-07-31] MEDS: POTASSIUM CHLORIDE 10 MEQ ER TABLET 40 MEQ PO ×2 (09:56→14:03)
[2022-07-31] MEDS: FUROSEMIDE 20 MG/2 ML VIAL IVP (09:56)
[2022-07-31] MEDS: PANTOPRAZOLE SODIUM 40 MG VIAL IV (09:56)
[2022-07-31] MEDS: MULTIVITAMIN TABLET 400 TAB PO (09:57)
[2022-07-31] MEDS: FOLIC ACID 1 MG TABLET PO (09:57)
[2022-07-31] MEDS: THIAMINE MONONITRATE (VIT B1) 100 MG TABLET PO (09:57)
[2022-07-31] MEDS: MAGNESIUM OXIDE 400 MG TABLET 800 MG PO ×2 (09:57→21:05)
[2022-07-31] MEDS: METOPROLOL SUCCINATE 50 MG TAB.ER.24H PO ×2 (09:57→21:05)
[2022-07-31] MEDS: SPIRONOLACTONE 25 MG TABLET PO (09:57)
[2022-07-31] MEDS: NYSTATIN 500,000 UNIT/5 ML ORAL.SUSP 500000 UNIT PO ×3 (13:54→21:05)
[2022-07-31] MEDS: POTASSIUM CHLORIDE 40 MEQ in 0.9 % SODIUM CHLORIDE 250 ML 67.5 MEQ IV (13:54)
--- NOTE | 2022-07-31 15:08 | PM.IMPN1 ---
Progress Note: A&P Assessment and Plan (1) Adult failure to thrive: Assessment and Plan: Likely from chronic Alcoholism and possibly Lung Cancer too. On Ensure. Vp Care Management on board. (2) New onset of congestive heart failure: Assessment and Plan: ECHO - shows normal EF. Diastolic function could not be assessed. Patient has sig LE edema but I suspect this is from severe hypoproteinemia and not from Congestive HF. On clue towards this his normal IVC that collapses with inspiration on ECHO suggesting there is no intravascular volume overload. Cardiology had recommended IV Lasix for Volume overload but an ECHO had not been performed by that time. Receive IV lasix in am. On aldactone. D/c IV lasix for now. Might still need for third spacing. C/w aldactone for now. (3) Generalized weakness: Assessment and Plan: Related to malnourishment, chronic alcoholism. PT/OT on board. (4) Mass of upper lobe of left lung: Assessment and Plan: CT concerning and highly suspicious for Lung cancer. Oncology consulted. Appears to be localized. Was scheduled for IR guided biopsy but it was canceled due to anemia requiring transfusion. Will need outpatient f/u (5) Acute hypokalemia: Assessment and Plan: replace with IV and oral potassium (6) Hypomagnesemia: Assessment and Plan: continue to replace IV and oral magnesium (7) Hypocalcemia: Assessment and Plan: Check PTH and ionized calcium. Calcium is normal when corrected for albumin (8) Alcoholic: Assessment and Plan: Not in withdrawal. Monitor. No prior hx of DT, seizures. (9) Oral pharyngeal candidiasis: Assessment and Plan: continue oral nystatin (10) Anemia: Assessment and Plan: Likely anemia of chronic disease. Hb stable after transfusion. (11) Liver mass: Assessment and Plan: hemangioma findings discussed with patient Internal Medicine - PN: Subj Subjective Interval history: Seen and examined. No overnight events. Reports mild KILLIAN but comfortable at rest. Exam Constitutional Vital Signs - 24 hr 07/30/22 15:09 07/30/22 16:12 07/30/22 16:26 Temperature 97.9 F 97.7 F Pulse Rate 88 80 79 Respiratory Rate 19 18 Blood Pressure 118/68 124/80 H Blood Pressure [Left Arm] Blood Pressure [Right Arm] Pulse Oximetry 95 Oxygen Delivery Method Nasal Cannula Oxygen Delivery Flow Rate 2 07/30/22 16:31 07/30/22 16:34 07/30/22 17:31 Temperature 97.9 F 97.9 F 97.8 F Pulse Rate 82 82 88 Respiratory Rate 19 18 18 Blood Pressure 118/75 118/75 127/70 H Blood Pressure [Left Arm] Blood Pressure [Right Arm] Pulse Oximetry 97 97 96 Oxygen Delivery Method Room Air Room Air Oxygen Delivery Flow Rate 07/30/22 18:31 07/30/22 19:23 07/30/22 20:20 Temperature 98.2 F Pulse Rate 88 Respiratory Rate 18 16 Blood Pressure 125/62 H Blood Pressure [Left Arm] Blood Pressure [Right Arm] Pulse Oximetry 95 95 Oxygen Delivery Method Room Air Room Air Oxygen Delivery Flow Rate 07/30/22 20:00 07/30/22 20:00 07/30/22 22:00 Temperature 98.3 F Pulse Rate 82 82 78 Respiratory Rate 16 Blood Pressure Blood Pressure [Left Arm] 150/83 H Blood Pressure [Right Arm] Pulse Oximetry 94 L Oxygen Delivery Method Room Air Oxygen Delivery Flow Rate 07/31/22 00:00 07/31/22 02:00 07/31/22 04:00 Temperature Pulse Rate 67 77 70 Respiratory Rate Blood Pressure Blood Pressure [Left Arm] Blood Pressure [Right Arm] Pulse Oximetry Oxygen Delivery Method Oxygen Delivery Flow Rate 07/31/22 04:11 07/31/22 05:25 07/31/22 06:00 Temperature 98.0 F Pulse Rate 75 79 Respiratory Rate 16 Blood Pressure Blood Pressure [Left Arm] 150/82 H Blood Pressure [Right Arm] Pulse Oximetry 95 91 L Oxygen Delivery Method Room Air Room Air Oxygen Delivery Flow Rate 07/31/22 08:00 07/31/22 10:00 07/31/22 11:35 Temperature Pulse Rate 74 81 Respiratory Rate Blood Pressure Blood Pressure [Left Arm] Blood Pressure [Right Arm] Pulse Oximetry 95 Oxygen Delivery Method Room Air Oxygen Delivery Flow Rate 07/31/22 12:00 07/31/22 13:35 07/31/22 14:20 Temperature 98.0 F Pulse Rate 79 74 82 Respiratory Rate 18 Blood Pressure Blood Pressure [Left Arm] Blood Pressure [Right Arm] 136/82 H Pulse Oximetry 95 Oxygen Delivery Method Room Air Oxygen Delivery Flow Rate Documenting provider has reviewed patient's vital signs: yes Common normals: oriented x3 Exam limitations: altered mental status General appearance: cooperative HENMT Common normals: normocephalic and head/scalp atraumatic Respiratory Common normals: normal respiratory effort, no use of accessory muscles and clear to auscultation bilaterally Cardio Common normals: regular rate, regular rhythm, S1 normal heart sound and S2 normal heart sound GI Common normals: Normal to inspection, nondistended, normoactive bowel sounds present, soft to palpation, non-tender and no hepatosplenomegaly Extremity Common normals: normal to inspection and full ROM General: edema (+3 b/l LE) Neuro Common normals: oriented x3, moves all extremities and no focal motor deficits Psych Common normals: mental status grossly normal, thought process normal, denies homicidal ideation and denies suicidal ideation Internal Medicine - PN: Obj Da Labs Labs: Laboratory Results - last 24 hr 07/29/22 07/31/22 09:18 04:00 WBC 10.7 RBC 2.72 L Hgb 8.8 L Hct 24.6 L MCV 90.4 MCH 32.4 MCHC 35.8 H RDW 14.6 Plt Count 375 MPV 9.9 Neut % (Auto) 72.2 Lymph % (Auto) 16.9 L [place] % (Auto) 7.6 Eos % (Auto) 0.8 L Baso % (Auto) 0.4 Neut # (Auto) 7.7 H Lymph # (Auto) 1.8 [place] # (Auto) 0.8 Eos # (Auto) 0.1 Baso # (Auto) 0.0 Abs Immat Gran (auto) 0.22 H Imm/Tot Granulo (auto) 2.1 H ESR 40 H Retic Count 0.03 L Sodium 128 L Potassium 3.1 L Chloride 96 L Carbon Dioxide 29.6 Anion Gap 5.5 BUN 15.0 Creatinine 0.87 Est GFR ( Amer) >60 Est GFR (Non-Af Amer) >60 BUN/Creatinine Ratio 17.2 Glucose 99 Calcium 6.6 L Magnesium 1.2 L Total Bilirubin 0.6 AST 85 H ALT 57 Alkaline Phosphatase 59 Lactate Dehydrogenase 321 H C-Reactive Protein 4.7 H Total Protein 5.5 L Albumin 1.8 L Globulin 3.7 Albumin/Globulin Ratio 0.5 Folate 7.00 L Blood Type A Positive Antibody Screen Negative Crossmatch See Detail
[2022-07-31 20:11] LABS: Anion Gap 7.6; BUN Creatinine Ratio 15.4; Calcium 6.6 mg/dL (8.5-10.1); Carbon Dioxide 28.6 mmol/L (21.0-32.0); Chloride 97 mmol/L (98-107); Estimated GFR (African America >60 (>=60); Estimated GFR (Non-African Ame >60 (>=60); Glucose 122 mg/dL (74-106); Magnesium 1.4 mg/dL (1.8-2.4); Potassium 4.2 mmol/L (3.5-5.1); Sodium 129 mmol/L (136-145)
[2022-07-31] MEDS: ENSURE HP 237 ML LIQUID PO (21:04)
[2022-08-01] VITALS (8 sets, daily range): BP systolic 150–154; BP diastolic 84–85; PULSE 70–85; RESP 18–20; TEMP 36.5–36.6; O2SAT 93–95
[2022-08-01 04:48] LABS: Basophils Percent Auto 0.3 % (0.2-2.0); Eosinophils Absolute Auto 0.1 10^3/uL (0.0-0.7); Eosinophils Percent Auto 0.6 % (0.9-7.0); Hematocrit 25.5 % (42.0-54.0); Immature Granulocytes Abs Auto 0.09 10^3/uL (0.00-0.03); Immature Granulocytes Pct Auto 0.8 % (0.0-0.5); Lymphocytes Absolute Auto 1.4 10^3/uL (1.2-3.8); Lymphocytes Percent Auto 12.2 % (20.5-60.0); Mean Corpuscular HGB Conc 35.3 g/dL (29.9-35.2); Mean Corpuscular Hemoglobin 31.8 pg (25.9-34.0); Mean Corpuscular Volume 90.1 fL (80.0-94.0); Mean Platelet Volume 9.5 fL (9.5-13.5); Monocytes Absolute Auto 0.6 10^3/uL (0.3-0.8); Monocytes Percent Auto 5.2 % (1.7-12.0); Neutrophils Absolute Auto 9.3 10^3/uL (1.4-6.5); Neutrophils Percent Auto 80.9 % (43.0-75.0); Platelet Count 375 10^3/uL (150-450); Red Blood Count 2.83 10^6/uL (4.70-6.10); Red Cell Distribution Width 14.6 % (11.0-15.0); White Blood Count 11.4 10^3/uL (4.0-11.0)
[2022-08-01 05:07] LABS: Alanine Aminotransferase 55 U/L (16-63); Albumin Globulin Ratio 0.5; Albumin Level 1.9 g/dL (3.4-5.0); Alkaline Phosphatase 62 U/L (46-116); Anion Gap 9.1; Aspartate Amino Transferase 71 U/L (15-37); BUN Creatinine Ratio 15.4; Bilirubin Total 0.6 mg/dL (0.2-1.0); Calcium 6.9 mg/dL (8.5-10.1); Carbon Dioxide 27.9 mmol/L (21.0-32.0); Chloride 95 mmol/L (98-107); Estimated GFR (African America >60 (>=60); Estimated GFR (Non-African Ame >60 (>=60); Globulin 3.9 g/dL; Glucose 95 mg/dL (74-106); Sodium 128 mmol/L (136-145); Total Protein 5.8 g/dL (6.4-8.2)
[2022-08-01] MEDS: NYSTATIN 500,000 UNIT/5 ML ORAL.SUSP 500000 UNIT PO ×2 (05:16→11:02)
[2022-08-01] MEDS: ENSURE HP 237 ML LIQUID PO (08:00)
[2022-08-01] MEDS: MAGNESIUM OXIDE 400 MG TABLET 800 MG PO (08:00)
[2022-08-01] MEDS: SPIRONOLACTONE 25 MG TABLET PO (08:01)
[2022-08-01] MEDS: THIAMINE MONONITRATE (VIT B1) 100 MG TABLET PO (08:01)
[2022-08-01] MEDS: FOLIC ACID 1 MG TABLET PO (08:01)
[2022-08-01] MEDS: MULTIVITAMIN TABLET 400 TAB PO (08:01)
[2022-08-01] MEDS: METOPROLOL SUCCINATE 50 MG TAB.ER.24H PO (08:01)
--- NOTE | 2022-08-01 11:45 | P.DS_ITS ---
DS: Providers Provider Date of admission: 07/26/22 23:00 Primary care physician: BELINDA JONES Consults: 07/27/22 Consult to Dietitian Routine Reason For Exam: 07/27/22 01:37 Consult to Dietitian Routine Reason For Exam: Consult to Pharmacy District Manager Routine 07/27/22 08:44 Occupational Therapy Eval and Treat Routine Physical Therapy Eval and Treat Routine 07/27/22 15:51 Consult to Oncology Routine Consulting Provider: Jennifer Garber 07/28/22 12:50 Consult to Cardiology Routine Consulting Provider: Jase 07/31/22 12:53 Occupational Therapy Eval and Treat Routine Physical Therapy Eval and Treat Routine Attending physician on discharge: Shaikh Ja Discharging clinician: Shaikh Ja Anticipated date of discharge: 08/01/22 DS: Diagnosis Discharge Diagnosis (1) Adult failure to thrive: Assessment and plan: From chronic alcoholism. Patient claims that he will stay sober and will not go back to drinking. (2) New onset of congestive heart failure: Assessment and plan: 2D ECHO no sig WMA, normal valvular structure. Not entirely sure if he truly has CHF - will need to f/u with Cardiology as outpatient. (3) Generalized weakness: Assessment and plan: From alcoholism. (4) Mass of upper lobe of left lung: Assessment and plan: Will need IR guided biopsy. Patient scheduled as outpatien with [facility] (5) Acute hypokalemia: Assessment and plan: resolved (6) Hypomagnesemia: Assessment and plan: C/w oral magnesium (7) Hypocalcemia: Assessment and plan: Normal calcium when corrected for albumin (8) Alcoholic: Assessment and plan: Not in withdrawal. Educated on alcohol use. (9) Oral pharyngeal candidiasis: Assessment and plan: Resolved (10) Anemia: Assessment and plan: Likely anemia of chronic disease. Outpatient EGD/Colonoscopy if deemed necessary by PCP (11) Liver mass: Assessment and plan: Likely hemangioma. Will follow [facility] as outpatient (12) Hyponatremia: Assessment and plan: Stable. Suspect due to hypervolemia. Will be going home on oral lasix and aldactone. Will need outpatient BMP in one week DS: Summary Hospital Course Hospital Course: Patient brought in for generalized weakness, chronic cough, cachexia and was admitted for failure to thrive, multiple electrolyte abnormalities and was found to have RUL mass highly suspicious for lung malignancy. Patient was hydration, his electrolytes repleted while in patient. He also required transfusion for anemia - w/u anemia concerning anemia of chronic disease. No overt signs of bleeding. Patient also was evaluated for possible Congestive HF - due to LE edema, elevated BNP but 2D ECHO shows normal EF, no sig cardiac structural abnormality. He was evaluated by Cardiolgoy who recommended diuresis but this was prior to him getting his ECHO - I suspect his Edema is likely from third spacing/extravascular volume expansion from hypoproteinemia and diuresing him might adversely affect his renal function and electrolytes. He denies PND,orthopnea and SOB and is comfortable and denies active complaints to offer except for mild chronic cough. While inpatient, he was also closely monitored for alcohol withdrawal symptoms and with his last drink over 6-7 days now, he is safe from that pov. Will need outpatient f/u with Cardiology. Patient already has an appt with [facility] as outpatient. He will need IR guided biopsy for his lung mass. Will also need BMP in one week Time spent discussing smoking cessation with patient: 3 to 10 minutes Status at Discharge Functional status at discharge: independent ambulation Overall status at discharge: patient is back to baseline Time Spent with Patient Time attestation: Total time spent providing and/or coordinating discharge services: Time spent: greater than 30 minutes Exam Constitutional Vital Signs - 24 hr 07/31/22 12:00 07/31/22 13:35 07/31/22 14:20 Temperature 98.0 F Pulse Rate 79 74 82 Respiratory Rate 18 Blood Pressure [Left Arm] Blood Pressure [Right Arm] 136/82 H Pulse Oximetry 95 Oxygen Delivery Method Room Air 07/31/22 15:46 07/31/22 17:52 07/31/22 19:00 Temperature Pulse Rate 75 74 Respiratory Rate 18 Blood Pressure [Left Arm] Blood Pressure [Right Arm] Pulse Oximetry Oxygen Delivery Method 07/31/22 20:03 07/31/22 20:05 07/31/22 21:02 Temperature 98.3 F Pulse Rate 81 77 Respiratory Rate 18 Blood Pressure [Left Arm] 150/84 H Blood Pressure [Right Arm] Pulse Oximetry 94 L 95 Oxygen Delivery Method Room Air Room Air 08/01/22 00:00 08/01/22 02:00 08/01/22 04:26 Temperature 97.8 F Pulse Rate 74 72 73 Respiratory Rate 18 Blood Pressure [Left Arm] 150/84 H Blood Pressure [Right Arm] Pulse Oximetry 93 L Oxygen Delivery Method Room Air 08/01/22 04:25 08/01/22 06:03 08/01/22 07:36 Temperature 97.7 F Pulse Rate 71 72 70 Respiratory Rate 20 Blood Pressure [Left Arm] Blood Pressure [Right Arm] 154/85 H Pulse Oximetry 95 Oxygen Delivery Method Room Air 08/01/22 08:24 08/01/22 10:07 Temperature Pulse Rate 85 77 Respiratory Rate Blood Pressure [Left Arm] Blood Pressure [Right Arm] Pulse Oximetry Oxygen Delivery Method Documenting provider has reviewed patient's vital signs: yes Common normals: oriented x3 Exam limitations: altered mental status General appearance: cooperative HENMT Common normals: normocephalic and head/scalp atraumatic Respiratory Common normals: normal respiratory effort and no use of accessory muscles Auscultation: other (Coarse breath sounds. No rales, crackles. ) Cardio Common normals: regular rate, regular rhythm, S1 normal heart sound and S2 normal heart sound GI Common normals: Normal to inspection, nondistended, normoactive bowel sounds present, soft to palpation, non-tender and no hepatosplenomegaly Extremity Common normals: normal to inspection and full ROM General: edema (+3 b/l LE) Neuro Common normals: oriented x3, moves all extremities and no focal motor deficits Psych Common normals: mental status grossly normal, thought process normal, denies homicidal ideation and denies suicidal ideation DS: Data Data Completed and Pending Labs on day of discharge: Labs from last 24 hours 08/01/22 07/31/22 04:20 19:53 WBC 11.4 H RBC 2.83 L Hgb 9.0 L Hct 25.5 L MCV 90.1 MCH 31.8 MCHC 35.3 H RDW 14.6 Plt Count 375 MPV 9.5 Neut % (Auto) 80.9 H Lymph % (Auto) 12.2 L [place] % (Auto) 5.2 Eos % (Auto) 0.6 L Baso % (Auto) 0.3 Neut # (Auto) 9.3 H Lymph # (Auto) 1.4 [place] # (Auto) 0.6 Eos # (Auto) 0.1 Baso # (Auto) 0.0 Abs Immat Gran (auto) 0.09 H Imm/Tot Granulo (auto) 0.8 H Sodium 128 L 129 L Potassium 4.0 4.2 Chloride 95 L 97 L Carbon Dioxide 27.9 28.6 Anion Gap 9.1 7.6 BUN 14.0 16.0 Creatinine 0.91 1.04 Est GFR ( Amer) >60 >60 Est GFR (Non-Af Amer) >60 >60 BUN/Creatinine Ratio 15.4 15.4 Glucose 95 122 H Calcium 6.9 L 6.6 L Magnesium 1.4 L Total Bilirubin 0.6 AST 71 H ALT 55 Alkaline Phosphatase 62 Total Protein 5.8 L Albumin 1.9 L Globulin 3.9 Albumin/Globulin Ratio 0.5 Discharge Plan Discharge Disposition: Home, Self-Care Condition: Serious Discharge Medications: New folic acid 1 mg tablet 1 mg PO DAILY Qty: 30 0RF spironolactone [Aldactone] 50 mg tablet 50 mg PO DAILY Qty: 30 0RF furosemide [Lasix] 40 mg tablet 40 mg PO DAILY Qty: 30 0RF potassium chloride 20 mEq tablet extended release 20 meq PO DAILY Qty: 30 0RF magnesium oxide 400 mg magnesium tablet 400 mg PO BID Qty: 60 0RF Continued metoprolol succinate 50 mg tablet extended release 24 hr 50 mg PO BID Activity: increase activity as tolerated Patient Instructions: Heart Failure (DC), Failure to Thrive (DC), Hypocalcemia (GEN), Hypomagnesemia (DC) Forms: Portal Instructions Follow Up Appointments: Dr. Garber (oncology) Thursday 08/03 1pm-bring all meds in original bottles. ext [phone], please choose a primary care physician and schedule a follow up within one week. A list of PCPs has been provided that are affiliated with [facility]. You are able to choose any PCP of your preference though. Dr. Jones (PCP) call for follow up
--- NOTE | 2022-08-02 15:35 | CM.DCFOLLOWU ---
Person spoke with: Jaret How are you feeling? Much better How is your pain? No pain Did you understand your discharge instructions? yes Do you have any questions about your discharge instructions? no Were you given any prescriptions at discharge? yes Were you able to get your prescriptions filled? yes Do you understand how to take your medications as ordered? yes Do you have any questions about your follow up appointment and do you plan to keep your follow up appointment? No I see oncology tomorrow Is there anything else that you would like to discuss? No Questions/Comments/Concerns/Other:
[2022-08-03 11:08] LABS: PTH, Intact 81 pg/mL (15-65)
[2022-08-03 15:11] LABS: Calcium, Ionized, Serum 4.2 mg/dL (4.5-5.6)
[2022-12-16 14:58] LABS: QuantiFERON-TB Gold Plus NEGATIVE
== END 2022-08-01 12:55 | disposition home or self-care (01) | DRG 896 ==
LOC: ER 22:50 → MS 23:24
PROVIDERS: Family Medicine; Physician Assistant; Admitting Provider Internal Medicine; Emergency Provider Emergency Medicine; PCP Family Medicine; Visit Provider Internal Medicine
DX: F10.20 Alcohol dependence, uncomplicated (principal); I50.33 Acute on chronic diastolic (congestive) heart failure; E46 Unspecified protein-calorie malnutrition; B37.0 Candidal stomatitis; N17.9 Acute kidney failure, unspecified; R62.7 Adult failure to thrive; E87.6 Hypokalemia; E83.42 Hypomagnesemia; E83.51 Hypocalcemia; R53.1 Weakness; R91.8 Other nonspecific abnormal finding of lung field; D63.8 Anemia in other chronic diseases classified elsewhere; D18.09 Hemangioma of other sites; D72.829 Elevated white blood cell count, unspecified; D75.839 Thrombocytosis, unspecified; R79.89 Other specified abnormal findings of blood chemistry; E88.09 Other disorders of plasma-protein metabolism, not elsewhere classified; Z79.899 Other long term (current) drug therapy; E80.7 Disorder of bilirubin metabolism, unspecified; Z68.26 Body mass index [BMI] 26.0-26.9, adult; F17.210 Nicotine dependence, cigarettes, uncomplicated
CPT/HCPCS: 36415; 36430; 36592; 70450; 71045; 71250; 74170; 76705; 80048; 80053; 80074; 80307; 80320; 81003; 82140; 82330; 82607; 82728; 82746; 83540; 83550; 83605; 83615; 83735; 83880; 83970; 84132; 84134; 84443; 84478; 84484; 85025; 85045; 85610; 85652; 85730; 86140; 86480; 86850; 86900; 86901; 87045; 87389; 93005; 93306; 94667; 94668; 94761; 96365; 96366; 96367; 96368; 96375; 96376; 97110; 97161; 97165; 97530; 97535; 99285; C1887; G0328; J3480; P9016; Q3014; Q9967

== ENCOUNTER 2022-08-03 07:43 | Outpatient (OUT) | payer BC, SELFPAY | END 2022-08-03 07:44 | disposition home or self-care (01) | LOC: INF 07:43 | PROVIDERS: PCP Family Medicine; Visit Provider Internal Medicine Hematology & Oncology | DX: C34.12 Malignant neoplasm of upper lobe, left bronchus or lung (principal); F17.210 Nicotine dependence, cigarettes, uncomplicated; F10.90 Alcohol use, unspecified, uncomplicated; E46 Unspecified protein-calorie malnutrition; E83.51 Hypocalcemia; E83.42 Hypomagnesemia; E87.6 Hypokalemia; D18.03 Hemangioma of intra-abdominal structures; G31.89 Other specified degenerative diseases of nervous system; D64.9 Anemia, unspecified; E88.09 Other disorders of plasma-protein metabolism, not elsewhere classified | CPT/HCPCS: G0463 ==

== ENCOUNTER 2022-08-03 14:23 | Day surgery (SDC) | payer BC, SELFPAY ==
[2022-08-03] VITALS (11 sets, daily range): BP systolic 153–178; BP diastolic 84–111; PULSE 70–89; RESP 18; TEMP 36.4; O2SAT 92–99
[2022-08-03 11:15] LABS: Basophils Absolute Auto 0.1 10^3/uL (0.0-0.1); Basophils Percent Auto 0.5 % (0.2-2.0); Eosinophils Absolute Auto 0.1 10^3/uL (0.0-0.7); Eosinophils Percent Auto 0.9 % (0.9-7.0); Hematocrit 29.1 % (42.0-54.0); Hemoglobin 9.9 g/dL (14.0-18.0); Immature Granulocytes Abs Auto 0.05 10^3/uL (0.00-0.03); Immature Granulocytes Pct Auto 0.5 % (0.0-0.5); Lymphocytes Absolute Auto 1.6 10^3/uL (1.2-3.8); Lymphocytes Percent Auto 15.3 % (20.5-60.0); Mean Corpuscular Hemoglobin 31.5 pg (25.9-34.0); Mean Corpuscular Volume 92.7 fL (80.0-94.0); Mean Platelet Volume 8.9 fL (9.5-13.5); Monocytes Absolute Auto 0.7 10^3/uL (0.3-0.8); Monocytes Percent Auto 7.1 % (1.7-12.0); Neutrophils Absolute Auto 7.8 10^3/uL (1.4-6.5); Neutrophils Percent Auto 75.7 % (43.0-75.0); Platelet Count 450 10^3/uL (150-450); Red Blood Count 3.14 10^6/uL (4.70-6.10); Red Cell Distribution Width 14.6 % (11.0-15.0); White Blood Count 10.3 10^3/uL (4.0-11.0)
[2022-08-03] MEDS: LIDOCAINE HCL 10 ML, SODIUM BICARBONATE 1 MEQ INJ (13:02)
--- NOTE | 2022-08-03 13:20 | CT_ITS ---
[address] [address] Patient Name: BOBBY GRAJEDA MRN: [id number] date: 1960 Sex: M Assigned Patient Location: CT Current Patient Location: CT Accession/Order Number: [id number] Exam Date: 08/03/2022 12:40 Report Date: 08/03/2022 14:13 At the request of: ROZINA PONCE Procedure: CT biopsy lung EXAMINATION: CT biopsy lung HISTORY: Solitary pulmonary nodule COMPARISON: No relevant comparison available. MODERATE SEDATION TIME: TECHNIQUE: After obtaining informed consent, a CT-guided aspiration was performed in the usual sterile manner. Dose reduction techniques were achieved by using automated exposure control and/or adjustment of mA and/or kV according to patient size and/or use of iterative reconstruction technique. FINDINGS: IMAGING: CT guided biopsy of left upper lobe pulmonary mass. BIOPSY NEEDLE: 10 cm 18-gauge Temno guide, a 15 cm 20-gauge Temno spring loaded biopsy needle SPECIMEN TYPE, #, LOCATION: 3 core samples, left upper lobe mass MEDICATION: 6 cc 1% buffered lidocaine for local anesthesia. COMPLICATIONS: None. LABORATORY: Pathology results are pending. OTHER: No postprocedure pneumothorax observed by CT. IMPRESSION: 1. Technically successful CT-guided lung biopsy as described above. 2. Pathology results are pending. The patient was instructed to obtain follow up care and biopsy results from the referring physician. Electronically authenticated by: ANNE GUADALUPE Date: 08/03/2022 14:13
--- NOTE | 2022-08-03 14:16 | XR_ITS ---
The [address] [address] Patient Name: BOBBY GRAJEDA MRN: [id number] date: 1960 Sex: M Assigned Patient Location: CT Current Patient Location: CT Accession/Order Number: [id number] Exam Date: 08/03/2022 14:13 Report Date: 08/03/2022 14:50 At the request of: ROZINA PONCE Procedure: XR chest insp exp EXAMINATION: XR chest insp exp HISTORY: Left lung mass COMPARISON: No relevant comparison available. TECHNIQUE: Inspiration and expiration FINDINGS: LUNGS: Left apical density/mass, slightly increased likely related to lung biopsy. Minimal left basilar infiltrate on expiration, atelectasis. VASCULATURE: No increased pulmonary vasculature. PLEURA: No pneumothorax, effusion, or pleural thickening. CARDIAC: No cardiomegaly or cardiac silhouette abnormality. MEDIASTINUM: No visible mass or adenopathy. BONES: No fracture or visible bone lesion. OTHER: Negative. IMPRESSION: No pneumothorax Electronically authenticated by: ANNE GUADALUPE Date: 08/03/2022 14:50
--- NOTE | 2022-08-03 15:49 | PC.NURSE ---
Noted bilateral arms with mottling from fingers to upper arms. Pt gait steady and able to walk alone but it is slow and deliberate.
--- NOTE | 2022-08-03 15:56 | PC.NURSE ---
1318 vaseline gauze and large tegaderm placed over biopsy site. 1323 Pt transferred to cart with assist and taken to holding area. Pt alert oriented skin warm, dusky pink, arms remain mottled. Skin color unchanged from pre procedure assessment. Pt denies any c/o chest pain or SOB. Dressing dry and intact. SR up x 2. Call light in reach. 1335 No complaints voiced Dressing dry and intact. 1345 Dr owen in to visit with pt in department. Pt denies any chest pain or problems. Pt assisted up to chair. 1410 for CXR by w/c. Pt up to bathroom to void with CGA 1450 Dr Ness approved of d/c to home after viewing CXR. 1510 Pt taken out by w/c to hospital exit. Dtr to drive pt home.
== END 2022-08-03 16:06 | disposition home or self-care (01) ==
LOC: CT 14:24
PROVIDERS: Radiology Diagnostic Radiology; PCP Internal Medicine Hematology & Oncology; Visit Provider Internal Medicine Hematology & Oncology
DX: C34.12 Malignant neoplasm of upper lobe, left bronchus or lung (principal); F17.210 Nicotine dependence, cigarettes, uncomplicated; F10.90 Alcohol use, unspecified, uncomplicated; E46 Unspecified protein-calorie malnutrition; E83.51 Hypocalcemia; E83.42 Hypomagnesemia; E87.6 Hypokalemia; D18.03 Hemangioma of intra-abdominal structures; G31.89 Other specified degenerative diseases of nervous system; D64.9 Anemia, unspecified; E88.09 Other disorders of plasma-protein metabolism, not elsewhere classified
CPT/HCPCS: 32408; 36415; 71046; 85025; 88305; 88341; 88342; G0463

== ENCOUNTER 2022-08-17 07:32 | Outpatient (OUT) | payer BC, SELFPAY | END 2022-08-17 07:33 | disposition home or self-care (01) | LOC: INF 07:32 | PROVIDERS: PCP Internal Medicine Hematology & Oncology; Visit Provider Internal Medicine Hematology & Oncology | DX: C34.12 Malignant neoplasm of upper lobe, left bronchus or lung (principal); D64.9 Anemia, unspecified | CPT/HCPCS: G0463 ==

== ENCOUNTER 2022-08-24 10:02 | Outpatient (OUT) | payer BC, SELFPAY ==
[2022-08-24 11:35] LABS: Basophils Absolute Auto 0.1 10^3/uL (0.0-0.1); Basophils Percent Auto 0.6 % (0.2-2.0); Eosinophils Percent Auto 0.5 % (0.9-7.0); Hematocrit 35.8 % (42.0-54.0); Immature Granulocytes Abs Auto 0.03 10^3/uL (0.00-0.03); Immature Granulocytes Pct Auto 0.4 % (0.0-0.5); Lymphocytes Absolute Auto 2.1 10^3/uL (1.2-3.8); Lymphocytes Percent Auto 24.3 % (20.5-60.0); Mean Corpuscular HGB Conc 33.5 g/dL (29.9-35.2); Mean Corpuscular Hemoglobin 31.9 pg (25.9-34.0); Mean Corpuscular Volume 95.2 fL (80.0-94.0); Mean Platelet Volume 8.8 fL (9.5-13.5); Monocytes Absolute Auto 0.7 10^3/uL (0.3-0.8); Monocytes Percent Auto 8.7 % (1.7-12.0); Neutrophils Absolute Auto 5.5 10^3/uL (1.4-6.5); Neutrophils Percent Auto 65.5 % (43.0-75.0); Platelet Count 449 10^3/uL (150-450); Red Blood Count 3.76 10^6/uL (4.70-6.10); Red Cell Distribution Width 14.7 % (11.0-15.0); White Blood Count 8.4 10^3/uL (4.0-11.0)
[2022-08-24 11:51] LABS: Alanine Aminotransferase 36 U/L (16-63); Albumin Globulin Ratio 0.8; Albumin Level 3.5 g/dL (3.4-5.0); Alkaline Phosphatase 88 U/L (46-116); Anion Gap 14.4; Aspartate Amino Transferase 31 U/L (15-37); BUN Creatinine Ratio 12.9; Bilirubin Total 0.4 mg/dL (0.2-1.0); Calcium 9.8 mg/dL (8.5-10.1); Carbon Dioxide 28.8 mmol/L (21.0-32.0); Chloride 96 mmol/L (98-107); Estimated GFR (African America >60 (>=60); Estimated GFR (Non-African Ame 55 (>=60); Globulin 4.4 g/dL; Glucose 117 mg/dL (74-106); Lactate Dehydrogenase 164 U/L (85-227); Potassium 5.2 mmol/L (3.5-5.1); Sodium 134 mmol/L (136-145); Total Protein 7.9 g/dL (6.4-8.2)
[2022-08-24 11:54] LABS: C Reactive Protein <0.2 mg/dL (<=1.0)
[2022-08-24 12:09] LABS: Erythrocyte Sedimentation Rate 89 mm/hr (<=20)
[2022-08-24 12:52] LABS: Percent Iron Saturation 49.7 %
[2023-03-28 13:24] LABS: Reticulocyte Count 2.93 % (0.60-3.10)
== END 2022-08-24 10:03 | disposition home or self-care (01) ==
LOC: HEMC 10:13
PROVIDERS: PCP Internal Medicine Hematology & Oncology; Visit Provider Internal Medicine Hematology & Oncology
DX: C34.90 Malignant neoplasm of unspecified part of unspecified bronchus or lung (principal); C34.12 Malignant neoplasm of upper lobe, left bronchus or lung; D75.839 Thrombocytosis, unspecified; R91.1 Solitary pulmonary nodule; D64.9 Anemia, unspecified
CPT/HCPCS: 36415; 80053; 82728; 83540; 83550; 83615; 85025; 85045; 85652; 86140; G0463

== ENCOUNTER 2022-08-27 14:27 | Outpatient (OUT) | payer BC, SELFPAY ==
--- NOTE | 2022-08-27 14:29 | PE_ITS ---
[address] [address] Patient Name: BOBBY GRAJEDA MRN: [id number] date: 1960 Sex: M Assigned Patient Location: PETCT Current Patient Location: PETCT Accession/Order Number: [id number] Exam Date: 08/27/2022 15:00 Report Date: 09/01/2022 13:30 At the request of: ROZINA PONCE Procedure: PET skull to mid thigh EXAMINATION: PET skull to mid thigh HISTORY: Solitary pulmonary nodule R91.1, Malignant neoplasm C34.90 COMPARISON: 08/03/22, 07/29/22. TECHNIQUE: After obtaining the patient's consent, 11.88 mCi F-18 FDG was administered intravenously. Whole body PET/CT imaging was performed of the entire body, skull to feet, with multi-planar imaging without oral or intravenous contrast material, using a dedicated integrated PET/CT scanner. FINDINGS: HEAD/NECK: Normal. No pathological FDG activity. LUNGS: 2.8 x 2.2 cm left upper lobe mass on ct with markedly elevated FDG activity, SUV measuring up to 16.8. MEDIASTINUM/KIRA: Normal. No pathological FDG activity. CHEST WALL/AXILLA: Normal. No pathological FDG activity. ABDOMEN: Normal. No pathological FDG activity. PELVIS: Normal. No pathological FDG activity. BONES: Two areas of increased FDG activity left anterior 9th and 10th ribs with SUV values of 5.4 and 5.5 with corresponding bone formation on CT exam. Area of increased FDG activity left L4-L5 facet joint with SUV value of 4.4 with associated facet osteoarthropathy on ct LOWER EXTREMITIES: Normal. No pathological FDG activity. No suspicious lesions on CT imaging. OTHER: Negative. PET/PET skull to mid thigh IMPRESSION: Increased activity left upper lobe 2.8 cm mass, consistent with biopsy proven malignancy Increased activity left anterior 9th and 10th ribs with sclerosis. Subacute rib fractures favored over metastatic disease Increased activity left L4-L5 facet, degenerative changes favored Electronically authenticated by: ANNE GUADALUPE Date: 09/01/2022 13:30
== END 2022-08-27 14:28 | disposition home or self-care (01) ==
LOC: PETCT 14:27
PROVIDERS: PCP Internal Medicine Hematology & Oncology; Visit Provider Internal Medicine Hematology & Oncology
DX: R91.1 Solitary pulmonary nodule (principal); D64.9 Anemia, unspecified; C34.90 Malignant neoplasm of unspecified part of unspecified bronchus or lung; C34.12 Malignant neoplasm of upper lobe, left bronchus or lung
CPT/HCPCS: 78815; A9552

== ENCOUNTER 2022-09-02 14:35 | Outpatient (OUT) | payer BC, SELFPAY ==
--- NOTE | 2022-08-26 | RT_ITS ---
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 Findings were considered accurate and reproducible. No bronchodilator or lung volumes were ordered. No prior studies available for comparison. Spirometry: -FEV1/FVC: Reduced @ 68% -FEV1: Moderately reduced @ 68% -FVC: Normal @ 80% Diffusion capacity: -DLCO: Moderate reduction @ 57% when corrected for Hb 12g/dL Flow-volume loop: -Moderate obstructive pattern Impressions: -Moderate obstruction on spirometry with moderate diffusion impairment. This could represent COPD or other obstructive process - bronchodilator would be helpful to differentiate. Clinical correlation required. Electronically Signed On 08-30-2022 12:44:59 EDT by Nacho Davis
== END 2022-09-02 14:36 | disposition home or self-care (01) ==
LOC: CARD 14:35
PROVIDERS: PCP Internal Medicine Hematology & Oncology; Visit Provider Internal Medicine Hematology & Oncology
DX: C34.90 Malignant neoplasm of unspecified part of unspecified bronchus or lung (principal); R94.2 Abnormal results of pulmonary function studies
CPT/HCPCS: 94010; 94729; 99406

== ENCOUNTER 2022-09-21 10:47 | Outpatient (OUT) | payer BC, SELFPAY | END 2022-09-21 10:48 | disposition home or self-care (01) | LOC: INF 10:47 | PROVIDERS: PCP Internal Medicine Hematology & Oncology; Visit Provider Internal Medicine Hematology & Oncology | DX: C34.12 Malignant neoplasm of upper lobe, left bronchus or lung (principal); D75.839 Thrombocytosis, unspecified; F17.210 Nicotine dependence, cigarettes, uncomplicated | CPT/HCPCS: G0463 ==

== ENCOUNTER 2022-12-01 12:33 | Observation (INO) | payer BC, SELFPAY ==
[2022-12-01] VITALS (40 sets, daily range): BP systolic 109–141; BP diastolic 67–100; PULSE 60–108; RESP 14–27; TEMP 34.9–36.8; O2SAT 60–100; BMI 24.1; BMI 21.9
[2022-12-01 12:52] LABS: Glucometer 131 mg/dL (74-106)
--- NOTE | 2022-12-01 13:05 | XR_ITS ---
The [place] [id number] Patient Name: BOBBY GRAJEDA MRN: [id number] date: 1960 Sex: M Assigned Patient Location: ER Current Patient Location: ER Accession/Order Number: [id number] Exam Date: 12/01/2022 13:05 Report Date: 12/01/2022 14:06 At the request of: MANOJ SIEGEL Procedure: XR chest 1V TITLE: XR chest 1V COMPARISON: July 2022 chest x-ray CLINICAL HISTORY: weakness TECHNIQUE: One view. FINDINGS: There is a normal cardiac and mediastinal contour. The pulmonary vascular pattern is normal. Stable 3 cm nodular airspace density left lung apex. There is no pleural effusion. There are no significant skeletal abnormalities. XR/XR chest 1V IMPRESSION: STABLE 3 CM NODULAR DENSITY LEFT UPPER LUNG NO ACUTE RADIOGRAPHIC FINDINGS Electronically authenticated by: BELLA HAMPTON Date: 12/01/2022 14:06
--- NOTE | 2022-12-01 13:07 | ED_ITS ---
HPI - General Adult General Chief complaint: Weakness Stated complaint: GENERAL WEAKNESS Time Seen by Provider: 12/01/22 13:01 Source: patient Mode of arrival: walk-in History of Present Illness HPI narrative: 62 year old male presents to the ED for generalized weakness, fatigue. Onset was 2-3 days ago. Reports a cough, SOB that is chronic, unchanged. Denies fever, chills, MCD[place], dizziness. Denies CP, abd pain, N/V/D. Denies urinary sx. Denies recent fall. He has hx COPD, lung CA. He is a smoker. He was a daily alcohol drinker until one week ago. He has hx anemia, electrolyte abnormalities which he has been admitted to the hospital for in the past. He has not been to oncology since September,; he does have an appointment next week per his daughter. He is not receiving any treatment at this time for his lung CA. Rates his pain 10 due to body aches. Related Data Home Medications Medication Instructions Recorded Confirmed metoprolol succinate 50 mg 50 mg PO BID 07/26/22 12/01/22 tablet,extended release 24 hr Previous Rx's Medication Instructions Recorded folic acid 1 mg tablet 1 mg PO DAILY #30 tabs 08/01/22 furosemide 40 mg tablet (Lasix) 40 mg PO DAILY #30 tabs 08/01/22 magnesium oxide 400 mg PO BID #60 tabs 08/01/22 potassium chloride 20 mEq 20 meq PO DAILY #30 tabs 08/01/22 tablet,extended release spironolactone 50 mg tablet 50 mg PO DAILY #30 tabs 08/01/22 (Aldactone) Allergies Allergy/AdvReac Type Severity Reaction Status Date / Time No Known Drug Allergies Allergy Verified 12/01/22 12:45 Review of Systems ROS Constitutional Reports: fatigue; Denies: fever or chills Ears, nose, mouth, and throat Denies: throat pain or neck pain Cardiovascular Denies: chest pain, edema or lightheadedness Respiratory Reports: shortness of breath and cough Gastrointestinal Denies: abdominal pain, nausea, vomiting or diarrhea Genitourinary Denies: painful urination, urinary frequency or urinary urgency Musculoskeletal Reports: joint pain (Bilateral hips); Denies: back pain or neck pain Integumentary/Breast Denies: rash Neurological Denies: headache, numbness in extremities, weakness in extremities, lack of coordination, dizziness, confusion or slurred speech PFSH PFS Medical History (Updated 12/01/22 @ 15:39 by Benita Fontana) Adult failure to thrive ?R62.7 - Adult failure to thrive (ICD-10) Alcoholic ?F10.20 - Alcohol dependence, uncomplicated (ICD-10) Anemia ?D64.9 - Anemia, unspecified (ICD-10) Generalized weakness ?R53.1 - Weakness (ICD-10) Liver mass ?R16.0 - Hepatomegaly, not elsewhere classified (ICD-10) Lung mass ?R91.8 - Other nonspecific abnormal finding of lung field (ICD-10) Mass of upper lobe of left lung ?R91.8 - Other nonspecific abnormal finding of lung field (ICD-10) New onset of congestive heart failure ?I50.9 - Heart failure, unspecified (ICD-10) Surgical History (Updated 08/03/22 @ 15:40 by Kayli Licea) History of appendectomy ?Z90.49 - Acquired absence of other specified parts of digestive tract (ICD- 10) History of tonsillectomy ?Z90.89 - Acquired absence of other organs (ICD-10) Social History Smoking status: Current every day smoker Exam Constitutional Vital Signs, click to edit/add: Last Vital Signs Temp 94.8 F L 12/01/22 12:39 Pulse 62 12/01/22 15:10 Resp 18 12/01/22 15:52 BP 118/69 12/01/22 15:00 Pulse Ox 99 12/01/22 15:10 O2 Del Method Room Air 12/01/22 12:39 Common normals: no apparent distress and oriented x3 Exam limitations: no altered mental status General appearance: cooperative Nutritional appearance: underweight Orientation/consciousness: Yes awake HENMT Common normals: normocephalic Nose: external nose normal External ear: external ears normal Mouth: other (MM dry. Tongue midline); no drooling Throat: posterior oropharynx normal, tonsils normal and uvula midline Eye Common normals: PERRL, EOMs intact bilaterally, conjunctivae normal and no scleral icterus Neck & C-Spine Common normals: supple Chest Common normals: inspection of chest normal Chest: symmetrical chest wall rise Respiratory Common normals: normal respiratory effort Effort & inspection: able to speak in complete sentences and symmetric chest movement Auscultation: diminished lung sounds Cardio Common normals: regular rate GI Common normals: soft to palpation and non-tender Inspection: normal to inspection Back & Pelvis Thoracic spine/upper back: normal to inspection Extremity Common normals: normal to inspection and normal capillary refill Neuro Common normals: oriented x3, CN's II-XII intact bilaterally and moves all extremities Sensorium/orientation: awake and alert Coordination/balance: other (Generalized weakness) Speech: speech normal Motor exam: no pronator drift Course Vital Signs Vital signs: Vital Signs Temperature 94.8 F L 12/01/22 12:39 Pulse Rate 94 H 12/01/22 12:39 Respiratory Rate 18 12/01/22 12:39 Blood Pressure 136/100 H 12/01/22 12:39 Pulse Oximetry 98 12/01/22 12:39 Oxygen Delivery Method Room Air 12/01/22 12:39 Temperature 94.8 F L 12/01/22 12:39 Pulse Rate 62 12/01/22 15:10 Respiratory Rate 18 12/01/22 15:52 Blood Pressure 118/69 12/01/22 15:00 Pulse Oximetry 99 12/01/22 15:10 Oxygen Delivery Method Room Air 12/01/22 12:39 Medical Decision Making MDM Narrative Medical decision making narrative: The patient presented for generalized weakness, fatigue that has been increasing over the past few days. His sodium level was 125, magnesium 1.1, and potassium 2.0. Hgb was 9.2; he has hx anemia. BNP was 1860. Potassium and magnesium replacements were ordered. Findings were discussed with the patient. The patient will be admitted for further evaluation and treatment. I spoke with Dr. De Leon who accepted the patient for admission. Medical Records Medical records reviewed: Yes I reviewed the patient's medical records Lab Data Lab results reviewed: Yes I reviewed the patient's lab results Labs: Lab Results 12/01/22 12/01/22 12/01/22 Range/Units 12:50 12:52 13:15 WBC 11.2 H (4.0-11.0) 10^3/uL RBC 2.85 L (4.70-6.10) 10^6/uL Hgb 9.2 L (14.0-18.0) g/dL Hct 26.2 L (42.0-54.0) % MCV 91.9 (80.0-94.0) fL MCH 32.3 (25.9-34.0) pg MCHC 35.1 (29.9-35.2) g/dL RDW 13.3 (11.0-15.0) % Plt Count 264 (150-450) 10^3/uL MPV 9.7 (9.5-13.5) fL Neut % (Auto) 80.4 H (43.0-75.0) % Lymph % (Auto) 12.1 L (20.5-60.0) % [place] % (Auto) 6.3 (1.7-12.0) % Eos % (Auto) 0.1 L (0.9-7.0) % Baso % (Auto) 0.4 (0.2-2.0) % Neut # (Auto) 9.0 H (1.4-6.5) 10^3/uL Lymph # (Auto) 1.4 (1.2-3.8) 10^3/uL [place] # (Auto) 0.7 (0.3-0.8) 10^3/uL Eos # (Auto) 0.0 (0.0-0.7) 10^3/uL Baso # (Auto) 0.0 (0.0-0.1) 10^3/uL Abs Immat Gran (auto) 0.08 H (0.00-0.03) 10^3/uL Imm/Tot Granulo (auto) 0.7 H (0.0-0.5) % Sodium 125 L (136-145) mmol/L Potassium 2.0 L* (3.5-5.1) mmol/L Chloride 83 L* (98-107) mmol/L Carbon Dioxide 27.7 (21.0-32.0) mmol/L Anion Gap 16.3 BUN 12.0 (7.0-18.0) mg/dL Creatinine 1.11 (0.70-1.30) mg/dL Est GFR ( Amer) >60 (>=60) Est GFR (Non-Af Amer) >60 (>=60) BUN/Creatinine Ratio 10.8 Glucose 120 H (74-106) mg/dL Calcium 7.7 L (8.5-10.1) mg/dL Magnesium 1.1 L (1.8-2.4) mg/dL Total Bilirubin 1.4 H (0.2-1.0) mg/dL AST 82 H (15-37) U/L ALT 53 (16-63) U/L Alkaline Phosphatase 77 (46-116) U/L Total Creatine Kinase 76 (39-308) U/L Troponin I High Sens 14.6 (4.0-76.1) pg/mL NT-Pro-B Natriuret Pep 1860.0 H* (<=900.0) pg/mL Total Protein 7.0 (6.4-8.2) g/dL Albumin 2.8 L (3.4-5.0) g/dL Globulin 4.2 g/dL Albumin/Globulin Ratio 0.7 Urine Color Dk. orange (YELLOW) Urine Clarity Clear (CLEAR) Urine pH 6.5 (5.0-9.0) Ur Specific [place] 1.020 (1.005-1.025) Urine Protein 100 A (NEG/TRACE) mg/dL Urine Glucose (UA) Negative (NEGATIVE) mg/dL Urine Ketones >=80 A (NEGATIVE) mg/dL Urine Occult Blood Negative (NEGATIVE) Urine Nitrite Negative (NEGATIVE) Urine Bilirubin Large A (NEGATIVE) Urine Urobilinogen >=8.0 (0.2-1.0) EU/dL Ur Leukocyte Esterase Negative (NEGATIVE) Urine RBC 0-2 (0-2) #/HPF Urine WBC 2-5 A (NONE SEEN) #/HPF Ur Squamous Epith Cells Few A (NONE/RARE) #/LPF Urine Crystals None seen (None Seen) #/HPF Urine Bacteria Trace A (NONE SEEN) #/HPF Urine Casts Seen A (NONE SEEN) #/LPF Hyaline Casts Few Urine Mucus Trace A (NONE SEEN) Ur Culture Indicated? No POC Glucose 131 H (74-106) mg/dL Imaging Data Chest x-ray: Attestation: I have reviewed the pertinent imaging results. Radiologist's impression: XR chest 1V COMPARISON: July 2022 chest x-ray CLINICAL HISTORY: weakness TECHNIQUE: One view. FINDINGS: There is a normal cardiac and mediastinal contour. The pulmonary vascular pattern is normal. Stable 3 cm nodular airspace density left lung apex. There is no pleural effusion. There are no significant skeletal abnormalities. XR/XR chest 1V IMPRESSION: STABLE 3 CM NODULAR DENSITY LEFT UPPER LUNG NO ACUTE RADIOGRAPHIC FINDINGS Electronically authenticated by: BELLA HAMPTON Date: 12/01/2022 14:06 ECG Data Attestation: ?I have reviewed the pertinent ECG results. (EKG was reviewed by the attending physician. It showed sinus rhythm at a rate of 69 bpm. Long QTc interval at 469 ms.) Interpretation: Measurements Intervals [place] Rate: 69 P: 64 TX: 146 QRS: 55 QRSD: 106 T: 56 QT: 450 QTc: 469 Interpretive Statements 1100 Sinus rhythm [address] depression 8304 Long QTc interval 9150 abnormal ECG No previous ECG available for comparison Discharge Plan Discharge Chief Complaint: Weakness Clinical Impression: Generalized weakness, Hyponatremia, Hypokalemia, Hypomagnesemia Patient Disposition: Admitted as Observation Time of Disposition Decision: 15:55 Condition: Good Additional Instructions: Admitted to Dr. [facility] with telemetry
[2022-12-01 13:13] LABS: Basophils Percent Auto 0.4 % (0.2-2.0); Eosinophils Percent Auto 0.1 % (0.9-7.0); Hematocrit 26.2 % (42.0-54.0); Hemoglobin 9.2 g/dL (14.0-18.0); Immature Granulocytes Abs Auto 0.08 10^3/uL (0.00-0.03); Immature Granulocytes Pct Auto 0.7 % (0.0-0.5); Lymphocytes Absolute Auto 1.4 10^3/uL (1.2-3.8); Lymphocytes Percent Auto 12.1 % (20.5-60.0); Mean Corpuscular HGB Conc 35.1 g/dL (29.9-35.2); Mean Corpuscular Hemoglobin 32.3 pg (25.9-34.0); Mean Corpuscular Volume 91.9 fL (80.0-94.0); Mean Platelet Volume 9.7 fL (9.5-13.5); Monocytes Absolute Auto 0.7 10^3/uL (0.3-0.8); Monocytes Percent Auto 6.3 % (1.7-12.0); Neutrophils Percent Auto 80.4 % (43.0-75.0); Platelet Count 264 10^3/uL (150-450); Red Blood Count 2.85 10^6/uL (4.70-6.10); Red Cell Distribution Width 13.3 % (11.0-15.0); White Blood Count 11.2 10^3/uL (4.0-11.0)
[2022-12-01 13:36] LABS: Alanine Aminotransferase 53 U/L (16-63); Albumin Globulin Ratio 0.7; Albumin Level 2.8 g/dL (3.4-5.0); Alkaline Phosphatase 77 U/L (46-116); Anion Gap 16.3; Aspartate Amino Transferase 82 U/L (15-37); BUN Creatinine Ratio 10.8; Bilirubin Total 1.4 mg/dL (0.2-1.0); Calcium 7.7 mg/dL (8.5-10.1); Carbon Dioxide 27.7 mmol/L (21.0-32.0); Creatine Kinase 76 U/L (39-308); Estimated GFR (African America >60 (>=60); Estimated GFR (Non-African Ame >60 (>=60); Globulin 4.2 g/dL; Glucose 120 mg/dL (74-106); Sodium 125 mmol/L (136-145); Troponin I High Sensitivity 14.6 pg/mL (4.0-76.1)
[2022-12-01 13:49] LABS: Chloride 83 mmol/L (98-107)
[2022-12-01 14:01] LABS: Bilirubin Urine LARGE (NEGATIVE); Blood Urine NEGATIVE (NEGATIVE); Clarity Urine CLEAR (CLEAR); Color Urine DK. ORANGE (YELLOW); Glucose Urine UA NEGATIVE (NEGATIVE); Ketones Urine >=80 mg/dL (NEGATIVE); Leukocyte Esterase Urine NEGATIVE (NEGATIVE); Nitrite Urine NEGATIVE (NEGATIVE); Protein Urine 100 mg/dL (NEG/TRACE); Urobilinogen Urine >=8.0 EU/dL (0.2-1.0); pH Urine 6.5 (5.0-9.0)
[2022-12-01 14:05] LABS: Magnesium 1.1 mg/dL (1.8-2.4)
[2022-12-01 14:06] LABS: Urine Microscopic Indicated YES
[2022-12-01 14:15] LABS: Mucus Urine TRACE (NONE SEEN); RBC Urine 0-2 #/HPF (0-2); Squamous Epithelial Cell Urine FEW #/LPF (NONE/RARE)
[2022-12-01 14:16] LABS: Bacteria Urine TRACE #/HPF (NONE SEEN); Cast Seen? SEEN #/LPF (NONE SEEN); Crystals Seen? None Seen #/HPF (None Seen); Hyaline Casts Urine FEW; Urine Culture Indicated NO
--- NOTE | 2022-12-01 14:33 | ECG_ITS ---
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
[2022-12-01] MEDS: POTASSIUM CHLORIDE 10 MEQ ER TABLET 40 MEQ PO ×2 (14:57→18:29)
[2022-12-01] MEDS: MAGNESIUM SULFATE/D5W 1 GM/100 ML PIGGYBACK IV (14:57)
[2022-12-01] MEDS: POTASSIUM CHLORIDE IN 0.9%NACL 1,000 ML 200 MEQ IV (14:58)
--- NOTE | 2022-12-01 17:16 | P.HP_ITS ---
Pt seen and evaluated on 12/01 0710 Agree with inoput and dx provided by [facility]ATER No change in assessment Hypokalemia complicated by the sever hyomagnesemia, that correction will aid Hyopkalemia Hypocalcemia - Supplement Baseline for anemia - but pt does appear dry - getting fluids back to baseline likely drop in Hgb H&P: HPI History of Present Illness Chief complaint: Severe Weakness Narrative: Date/time of exam: 12/01/22 1630 This is a 62-year-old male patient with a complicated past medical history as outlined below including hypertension, CHF with recent admission for CHF exacerbation, COPD, left upper lobe lung cancer currently following with [facility] oncology, extensive tobacco abuse and EtOH abuse history; who presented to the ED complaining of increasing weakness over the last 5 days, worse in the last 2 days. When the patient felt that he was just too weak to continue managing at home he presented to the ED for further evaluation. He denies any CP, SOB (beyond his baseline), dizziness, palpitations, N/V/D, or abdominal pain. He reports a long history of daily EtOH intake but reports complete alcohol cessation one week ago. He also admits to a 47 PYH of smoking and is attempting to achieve complete tobacco cessation in setting of newly diagnosed lung CA. He follows with [facility] and has an appointment next week to discuss the future plan of care. Work-up in the ED revealed significant electrolyte disturbances (potassium 2.0, magnesium 1.1, sodium 125), and anemia (9.2 g/dL) which is at the pt's baseline. An EKG was sinus rhythm with moderate ST depression and long QTc interval. Chest x-ray was unremarkable with no acute cardiopulmonary disease but stable at 3 cm nodular density in the TRISTEN. He is being admitted to the hospitalist service in observation for electrolyte repletion and cardiac monitoring. Review of Systems ROS Status of ROS 10 or more systems reviewed and unremarkable except as noted in history and below [facility] Medical History (Updated 12/02/22 @ 12:23 by Sophie Mcclure NP) (HFpEF) heart failure with preserved ejection fraction ?I50.30 - Unspecified diastolic (congestive) heart failure (ICD-10) Adult failure to thrive ?R62.7 - Adult failure to thrive (ICD-10) Alcohol abuse ?F10.10 - Alcohol abuse, uncomplicated (ICD-10) Alcoholic ?F10.20 - Alcohol dependence, uncomplicated (ICD-10) Anemia ?D64.9 - Anemia, unspecified (ICD-10) COPD (chronic obstructive pulmonary disease) ?J44.9 - Chronic obstructive pulmonary disease, unspecified (ICD-10) Generalized weakness ?R53.1 - Weakness (ICD-10) Liver mass ?R16.0 - Hepatomegaly, not elsewhere classified (ICD-10) Lung mass ?R91.8 - Other nonspecific abnormal finding of lung field (ICD-10) Mass of upper lobe of left lung ?R91.8 - Other nonspecific abnormal finding of lung field (ICD-10) New onset of congestive heart failure ?I50.9 - Heart failure, unspecified (ICD-10) Tobacco dependence ?F17.200 - Nicotine dependence, unspecified, uncomplicated (ICD-10) Surgical History (Updated 08/03/22 @ 15:40 by Kayli Licea) History of appendectomy ?Z90.49 - Acquired absence of other specified parts of digestive tract (ICD- 10) History of tonsillectomy ?Z90.89 - Acquired absence of other organs (ICD-10) Social History Smoking status: Current every day smoker Gender Identity: male Meds Home Medications and Allergies Home Medications Medication Instructions Recorded Confirmed Type metoprolol succinate 50 mg 50 mg PO BID 07/26/22 12/01/22 History tablet,extended release 24 hr folic acid 1 mg tablet 1 mg PO DAILY #30 tabs 08/01/22 12/01/22 Rx furosemide 40 mg tablet (Lasix) 40 mg PO DAILY #30 tabs 08/01/22 12/01/22 Rx magnesium oxide 400 mg PO BID #60 tabs 08/01/22 12/01/22 Rx potassium chloride 20 mEq 20 meq PO DAILY #30 tabs 08/01/22 12/01/22 Rx tablet,extended release spironolactone 50 mg tablet 50 mg PO DAILY #30 tabs 08/01/22 12/01/22 Rx (Aldactone) Allergies Allergy/AdvReac Type Severity Reaction Status Date / Time No Known Drug Allergies Allergy Verified 12/01/22 12:45 Exam Constitutional Vital Signs, click to edit/add: Last Vital Signs Temp 98.0 F 12/01/22 16:54 Pulse 64 12/01/22 16:54 Resp 18 12/01/22 16:54 BP 117/75 12/01/22 16:54 Pulse Ox 97 12/01/22 16:54 O2 Del Method Room Air 12/01/22 16:54 Common normals: no apparent distress, oriented x3 and alert General appearance: cooperative Nutritional appearance: underweight Orientation/consciousness: Yes awake HENMT Common normals: normocephalic, head/scalp atraumatic, hearing grossly normal bilaterally, external ears normal, external nose normal and moist oral mucous membranes Head and scalp: normocephalic and atraumatic Face and sinus: normal facial exam Nose: external nose normal External ear: external ears normal Eye Common normals: PERRL, EOMs intact bilaterally, conjunctivae normal and no scleral icterus General eye: normal appearance of both eyes Alignment: alignment normal Conjunctiva: conjunctiva(e) normal Pupil: PERRL Neck & C-Spine Common normals: full ROM, supple and no JVD Chest Common normals: inspection of chest normal Chest: symmetrical chest wall rise Respiratory Common normals: normal respiratory effort, no retractions and no use of accessory muscles Effort & inspection: able to speak in complete sentences Auscultation: rhonchi (BLL, R>L) and wheezes (Faint anterior TRISTEN) Cardio Common normals: no JVD, regular rate, regular rhythm, S1 normal heart sound, S2 normal heart sound, no gallops, no clicks, no murmurs, no rub and peripheral pulses 2+ throughout Rate: regular rate Rhythm: regular rhythm Heart sounds: S1 normal and S2 normal Peripheral pulses: pulses 2+ throughout GI Common normals: Normal to inspection, nondistended, normoactive bowel sounds present, soft to palpation, non-tender, no hepatosplenomegaly, no masses and no bruits Palpation: soft and no hepatosplenomegaly Bladder/kidney exam: bladder normal to palpation Back & Pelvis Common normals: thoracic and lumbar spine normal to inspection Extremity Common normals: normal capillary refill and no pedal edema General: normal exam except as noted; no clubbing and no cyanosis Neuro [place] Coma Scale: GCS not evaluated Common normals: oriented x3, CN's II-XII intact bilaterally, moves all extremities, no focal motor deficits and no sensory deficits noted Sensorium/orientation: awake and alert Speech: speech normal Motor exam: strength 5/5 throughout Psych Common normals: mental status grossly normal, thought process normal, affect normal and activity/motor behavior normal Thought process: normal thought process Results Labs Labs: Short CBC 12/01/22 Range/Units 12:52 WBC 11.2 H (4.0-11.0) 10^3/uL Hgb 9.2 L (14.0-18.0) g/dL Hct 26.2 L (42.0-54.0) % Plt Count 264 (150-450) 10^3/uL BMP 12/01/22 12:52 Sodium 125 L Potassium 2.0 L* Chloride 83 L* Carbon Dioxide 27.7 BUN 12.0 Creatinine 1.11 Glucose 120 H Calcium 7.7 L Cardiac Enzymes 12/01/22 Range/Units 12:52 Total Creatine Kinase 76 (39-308) U/L Liver Function 12/01/22 Range/Units 12:52 Total Bilirubin 1.4 H (0.2-1.0) mg/dL AST 82 H (15-37) U/L ALT 53 (16-63) U/L Alkaline Phosphatase 77 (46-116) U/L Albumin 2.8 L (3.4-5.0) g/dL Urine 12/01/22 Range/Units 13:15 Urine Color Dk. orange (YELLOW) Urine Clarity Clear (CLEAR) Urine pH 6.5 (5.0-9.0) Ur Specific [place] 1.020 (1.005-1.025) Urine Protein 100 A (NEG/TRACE) mg/dL Urine Glucose (UA) Negative (NEGATIVE) mg/dL Pulse Oximetry Attestation: I have reviewed the pertinent pulse oximetry results. ECG Attestation: ?I have reviewed the pertinent ECG results. Interpretation: Interpretive Statements 1100 Sinus rhythm [address] depression 8304 Long QTc interval 9150 abnormal ECG No previous ECG available for comparison Imaging Chest x-ray: Attestation: I have reviewed the pertinent imaging results. Radiologist's impression: FINDINGS: There is a normal cardiac and mediastinal contour. The pulmonary vascular pattern is normal. Stable 3 cm nodular airspace density left lung apex. There is no pleural effusion. There are no significant skeletal abnormalities. Assessment and Plan Assessment and Plan (1) Disorder of electrolytes: Assessment and Plan: ACUTE Laboratory Tests 12/01/22 12:52 Sodium 125 L Potassium 2.0 L* Magnesium 1.1 L * Adm observation * Tele monitoring * Multifactorial etiology - Lung CA, EtOH abuse, diuretics, poor PO intake * EKG w/o significant abnormalities - repeat in AM * Moderate hyponatremia - acute on chronic * Chronic baseline 128-134 * Suspect dehydration despite elevated BNP - pt appears dry * Lung CA and EtOH abuse likely contributing to hyponatremia * Gentle IVF for slow correction to avoid ODS sequelae - Goal 4-6 mEq/L/w24h. NS at 75/hr to avoid rapid correction and recurrent CHF exacerbation * Severe hypomagnesemia * 1 gm mag sulfate given in ED * Give additional 4 gm mag sulfate IVPB now per facility protocol * Severe hypokalemia * 40 mEq KCL PO given in ED plus IVF w/ KCL initiated in ED at rapid rate * D/C IVF (avoid sodium over correction) * Give additional 40 MEQ IVPB rider q6h x 2 * Give additional 40 MEQ PO at 1900 * Total repletion 160 mEq * Add Phosphorus and replete if indicated * Repeat CMP, Mag, PHos in AM (2) Generalized weakness: Assessment and Plan: ACUTE * 2/2 significant electrolyte disturbances and overall depleted state in setting of lung CA * See electrolytes above * PT consult for strengthening * General diet - encourage PO Intake (3) Mass of upper lobe of left lung: Assessment and Plan: CHRONIC * Follow outpatient with Dr Garber, Oncologist * Defer to outpatient management (4) Anemia: Assessment and Plan: CHRONIC * No evidence of active bleeding * Stable at baseline * Repeat CBC in am * Transfuse PRBCs if Hgb < 7 (5) Tobacco dependence: Assessment and Plan: CHRONIC * Encourage complete tobacco cessation * 21 mg Nicoderm patch daily (6) Alcohol abuse: Assessment and Plan: CHRONIC * Pt admits significant daily EtOH abuse history but reports not Etoh intake x 1 week * CIWA protocol * PRN Ativan * Continued complete cessation advised (7) COPD (chronic obstructive pulmonary disease): Assessment and Plan: CHRONIC * PRN albuterol HFA inhaler for SOB or wheezing (8) (HFpEF) heart failure with preserved ejection fraction: Assessment and Plan: CHRONIC * Admitted in July for CHF exacerbation * 2D echo w/ preserved LVEF and indeterminate diastolic dysfunction * Pt appears clinically dry despite elevated Pro BNP * repeat BNP in AM * Daily weight, strict I&O * Gentle IVF to prevent fluid overload - low threshold to d/c IVF and add diuretic therapy. Home lasix & spironolactone on hold for now
[2022-12-01] MEDS: NICOTINE 21 MG PATCH TD (18:28)
[2022-12-01 19:48] LABS: Anion Gap 17.5; BUN Creatinine Ratio 12.2; Calcium 7.2 mg/dL (8.5-10.1); Carbon Dioxide 23.9 mmol/L (21.0-32.0); Chloride 87 mmol/L (98-107); Estimated GFR (African America >60 (>=60); Estimated GFR (Non-African Ame >60 (>=60); Glucose 107 mg/dL (74-106); Sodium 126 mmol/L (136-145)
[2022-12-01 19:50] LABS: Potassium 2.4 mmol/L (3.5-5.1)
[2022-12-01] MEDS: METOPROLOL SUCCINATE 50 MG TAB.ER.24H PO (20:46)
[2022-12-01] MEDS: ENOXAPARIN SODIUM 40 MG/0.4 ML SYRINGE SUBQ (20:46)
[2022-12-01] MEDS: 0.9 % SODIUM CHLORIDE 1,000 ML 75 ML IV (20:52)
[2022-12-01] MEDS: MAGNESIUM SULFATE IN WATER 4 GM/100 ML PIGGYBACK IV (20:52)
--- NOTE | 2022-12-01 20:57 | RESP.RT ---
Patient states that he does not take this medication any more. States he does not take any respiratory medications
[2022-12-02] VITALS (19 sets, daily range): BP systolic 119–154; BP diastolic 61–90; PULSE 65–90; RESP 18–20; TEMP 36.3–37; O2SAT 90–99
[2022-12-02 00:57] LABS: Anion Gap 11.7; BUN Creatinine Ratio 13.3; Calcium 7.3 mg/dL (8.5-10.1); Carbon Dioxide 27.7 mmol/L (21.0-32.0); Chloride 91 mmol/L (98-107); Estimated GFR (African America >60 (>=60); Estimated GFR (Non-African Ame >60 (>=60); Glucose 102 mg/dL (74-106); Sodium 128 mmol/L (136-145)
[2022-12-02 01:03] LABS: Potassium 2.4 mmol/L (3.5-5.1)
[2022-12-02] MEDS: POTASSIUM CHLORIDE 10 MEQ ER TABLET 40 MEQ PO (01:48)
--- NOTE | 2022-12-02 05:00 | ECG_ITS ---
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
[2022-12-02 05:27] LABS: Basophils Absolute Auto 0.1 10^3/uL (0.0-0.1); Basophils Percent Auto 0.5 % (0.2-2.0); Eosinophils Percent Auto 0.3 % (0.9-7.0); Hemoglobin 7.1 g/dL (14.0-18.0); Immature Granulocytes Abs Auto 0.09 10^3/uL (0.00-0.03); Immature Granulocytes Pct Auto 0.9 % (0.0-0.5); Lymphocytes Absolute Auto 1.3 10^3/uL (1.2-3.8); Lymphocytes Percent Auto 13.5 % (20.5-60.0); Mean Corpuscular HGB Conc 35.3 g/dL (29.9-35.2); Mean Corpuscular Hemoglobin 32.1 pg (25.9-34.0); Mean Platelet Volume 9.9 fL (9.5-13.5); Monocytes Absolute Auto 0.6 10^3/uL (0.3-0.8); Monocytes Percent Auto 5.9 % (1.7-12.0); Neutrophils Absolute Auto 7.6 10^3/uL (1.4-6.5); Neutrophils Percent Auto 78.9 % (43.0-75.0); Platelet Count 187 10^3/uL (150-450); Red Blood Count 2.21 10^6/uL (4.70-6.10); Red Cell Distribution Width 13.3 % (11.0-15.0); White Blood Count 9.6 10^3/uL (4.0-11.0)
[2022-12-02 05:42] LABS: Hematocrit 20.1 % (42.0-54.0)
[2022-12-02 05:55] LABS: Alanine Aminotransferase 39 U/L (16-63); Albumin Globulin Ratio 0.7; Albumin Level 2.2 g/dL (3.4-5.0); Alkaline Phosphatase 62 U/L (46-116); Anion Gap 11.5; Aspartate Amino Transferase 58 U/L (15-37); BUN Creatinine Ratio 13.5; Bilirubin Total 0.8 mg/dL (0.2-1.0); Calcium 7.5 mg/dL (8.5-10.1); Carbon Dioxide 27.2 mmol/L (21.0-32.0); Chloride 91 mmol/L (98-107); Estimated GFR (African America >60 (>=60); Estimated GFR (Non-African Ame >60 (>=60); Globulin 3.3 g/dL; Glucose 100 mg/dL (74-106); Magnesium 2.2 mg/dL (1.8-2.4); Phosphorus 1.7 mg/dL (2.6-4.7); Sodium 127 mmol/L (136-145); Total Protein 5.5 g/dL (6.4-8.2)
[2022-12-02 05:57] LABS: Potassium 2.7 mmol/L (3.5-5.1)
[2022-12-02] MEDS: POTASSIUM CHLORIDE 10 MEQ IN WATER 100 ML PIGGYBACK IV (06:46)
[2022-12-02] MEDS: METOPROLOL SUCCINATE 50 MG TAB.ER.24H PO ×2 (08:07→21:35)
[2022-12-02] MEDS: POTASSIUM PHOS,M-BASIC-D-BASIC 30 MMOL in 0.9 % SODIUM CHLORIDE 250 ML 43.333 MMOL IV (08:07)
[2022-12-02] MEDS: FOLIC ACID 1 MG TABLET PO (08:07)
--- NOTE | 2022-12-02 08:23 | CM.NOTE ---
Rounding with Dr. De Leon. Dr. De Leon discussed potassium level with patient and continued to encourage patient to stop smoking. Discussed Hgb of 7.1 and that the Nurse Practitioner would evaluate him as well. PT eval pending. Continue to follow for any anticipated discharge needs.
--- NOTE | 2022-12-02 10:53 | P.PN_ITS ---
Pt seen at 0700 Feels some better - but not moving sig Agree with input and plan from [employer]IL[employer] PROFESSOR Progress Note: Subjective Subjective Interval history: Date/Time of exam: 12/02/22 0840 The patient is resting in bed watching television at the time of my exam. He is awake and alert and oriented x3. He denies any chest pain, abdominal pain, N/V/D, or worsening shortness of breath beyond his baseline. He continues to feel weak but states he feels slightly better than on admission. His electrolyte dyscrasias persist and we will continue repletion and monitor his labs closely. We will also pursue further work-up for his chronic hyponatremia. Exam Constitutional Vital Signs, click to edit/add: Last Vital Signs Temp 97.7 F 12/02/22 05:15 Pulse 71 12/02/22 10:27 Resp 18 12/02/22 05:15 BP 154/84 H 12/02/22 05:15 Pulse Ox 93 L 12/02/22 05:15 O2 Del Method Room Air 12/02/22 05:15 Common normals: no apparent distress, oriented x3 and alert Exam limitations: no altered mental status Nutritional appearance: underweight Orientation/consciousness: Yes awake HENMA Common normals: normocephalic, head/scalp atraumatic, hearing grossly normal bilaterally, external ears normal and external nose normal Head and scalp: normocephalic and atraumatic Face and sinus: normal facial exam Nose: external nose normal External ear: external ears normal Mouth: other (MM dry. Tongue midline); no drooling Throat: posterior oropharynx normal, tonsils normal and uvula midline Eye Common normals: PERRL, EOMs intact bilaterally, conjunctivae normal and no scleral icterus General eye: normal appearance of both eyes Alignment: alignment normal Eyelid: eyelid abnormal left upper eyelid (ptosis) Conjunctiva: conjunctiva(e) normal Pupil: PERRL Chest Common normals: inspection of chest normal Chest: symmetrical chest wall rise Respiratory Common normals: normal respiratory effort, no retractions and no use of accessory muscles Effort & inspection: able to speak in complete sentences and symmetric chest movement Auscultation: wheezes (I/E BLL, TRISTEN) Cardio Common normals: no JVD, regular rate, regular rhythm, S1 normal heart sound, S2 normal heart sound, no gallops, no clicks, no murmurs, no rub and peripheral pulses 2+ throughout Rate: regular rate Rhythm: regular rhythm Heart sounds: S1 normal and S2 normal Peripheral pulses: pulses 2+ throughout GI Common normals: Normal to inspection, nondistended, normoactive bowel sounds present, soft to palpation, non-tender, no hepatosplenomegaly, no masses and no bruits Palpation: soft and no hepatosplenomegaly Bladder/kidney exam: bladder normal to palpation Back & Pelvis Common normals: thoracic and lumbar spine normal to inspection Thoracic spine/upper back: normal to inspection Extremity Common normals: normal to inspection, normal capillary refill and no pedal edema General: normal exam except as noted; no clubbing and no cyanosis Neuro [place] Coma Scale: GCS not evaluated Common normals: oriented x3, CN's II-XII intact bilaterally, moves all extremities, no focal motor deficits and no sensory deficits noted Sensorium/orientation: awake and alert Speech: speech normal Motor exam: strength 5/5 throughout and no pronator drift Psych Common normals: mental status grossly normal, thought process normal, affect normal and activity/motor behavior normal Thought process: normal thought process Progress Note: Objective Labs Labs: Short CBC 12/01/22 12/02/22 Range/Units 12:52 04:18 WBC 11.2 H 9.6 (4.0-11.0) 10^3/uL Hgb 9.2 L 7.1 L (14.0-18.0) g/dL Hct 26.2 L 20.1 L* (42.0-54.0) % Plt Count 264 187 (150-450) 10^3/uL BMP 12/01/22 12/01/22 12/02/22 12:52 19:25 00:28 Sodium 125 L 126 L 128 L Potassium 2.0 L* 2.4 L* 2.4 L* Chloride 83 L* 87 L 91 L Carbon Dioxide 27.7 23.9 27.7 BUN 12.0 11.0 11.0 Creatinine 1.11 0.90 0.83 Glucose 120 H 107 H 102 Calcium 7.7 L 7.2 L 7.3 L 12/02/22 04:18 Sodium 127 L Potassium 2.7 L* Chloride 91 L Carbon Dioxide 27.2 BUN 10.0 Creatinine 0.74 Glucose 100 Calcium 7.5 L Cardiac Enzymes 12/01/22 Range/Units 12:52 Total Creatine Kinase 76 (39-308) U/L Liver Function 12/01/22 12/02/22 Range/Units 12:52 04:18 Total Bilirubin 1.4 H 0.8 (0.2-1.0) mg/dL AST 82 H 58 H (15-37) U/L ALT 53 39 (16-63) U/L Alkaline Phosphatase 77 62 (46-116) U/L Albumin 2.8 L 2.2 L (3.4-5.0) g/dL Urine 12/01/22 Range/Units 13:15 Urine Color Dk. orange (YELLOW) Urine Clarity Clear (CLEAR) Urine pH 6.5 (5.0-9.0) Ur Specific [place] 1.020 (1.005-1.025) Urine Protein 100 A (NEG/TRACE) mg/dL Urine Glucose (UA) Negative (NEGATIVE) mg/dL Progress Note: A&P Assessment and Plan (1) Disorder of electrolytes: Assessment and Plan: ACUTE Laboratory Tests 12/01/22 12/01/22 12/01/22 12:52 12:52 12:52 Sodium 125 L Potassium Calcium 7.7 L Phosphorus Magnesium 1.1 L 12/01/22 12/01/22 12/01/22 12:52 13:10 19:25 Sodium 126 L Potassium 2.0 L* Calcium Phosphorus 3.0 Magnesium 12/02/22 12/02/22 12/02/22 00:28 00:28 04:18 Sodium 127 L Potassium 2.4 L* 2.7 L* Calcium 7.3 L 7.5 L Phosphorus Magnesium 12/02/22 12/02/22 04:18 04:18 Sodium Potassium Calcium Phosphorus 1.7 L Magnesium 2.2 * Electrolyte dyscrasias persist but improving * Continue Tele monitoring * Multifactorial etiology - Lung CA, EtOH abuse, poor PO intake. * Pt reports not taking diuretics or KCL supplementation since August when his prescriptions ran out. Unlikely contributor to electrolyte disturbances * Moderate hyponatremia (acute on chronic) - Improving * Na 127 today - Chronic baseline 128-134 * Suspect dehydration despite elevated BNP - pt appears dry * Lung CA and EtOH abuse likely contributing to hyponatremia * Continue gentle IVF for slow correction to avoid ODS sequelae - Goal 4-6 mEq/L/w24h. NS at 75/hr to avoid rapid correction and recurrent CHF exacerbation * Add Random Ur Na, serum and urine osmolality to further evaluate source of hyponatremia * Severe hypomagnesemia - resolved * Mag 2.2 today * Recheck in AM * Severe hypokalemia - Improving but persistent * K+ 2.7 today * KCL 10 mEq given IVPB this AM - hold remaining portion of 40 mEq order * Give K-Phos now (44 mEq) * repeat K+ level this afternoon and give further repletion w/ 40 mEq PO * Moderate hypophosphatemia * Phos 1.7 today * Give 30 mmol K-phos IVPB * Recheck phos in AM * Hypocalcemia * 7.5, but 8.94 when corrected for hypoalbuminemia * Tums ordered * Repeat CMP, Mag, PHos in AM (2) Generalized weakness: Assessment and Plan: ACUTE * 2/2 significant electrolyte disturbances and overall depleted state in setting of lung CA * See electrolytes above * PT consult for strengthening * General diet - encourage PO Intake * see protein calorie malnutrition (3) Mass of upper lobe of left lung: Assessment and Plan: CHRONIC * Follow outpatient with Dr Garber, Oncologist * Defer to outpatient management (4) Anemia: Assessment and Plan: ACUTE ON CHRONIC Laboratory Tests 12/01/22 12/02/22 12:52 04:18 Hgb 9.2 L 7.1 L * Acute 2gm drop in hgb overnight * No evidence of active bleeding - denies hematochezia/melena * May reflect hemodilution after IVF administration, but acute bleeding should be ruled out * Obtain FOB guaiac sample * Repeat HH at 1430 * Low threshold to transfuse PRBCs if Hgb remains near 7 * Start PPI IVP daily for gastric protection * Repeat CBC in am (5) Tobacco dependence: Assessment and Plan: CHRONIC * Encourage complete tobacco cessation * 21 mg Nicoderm patch daily (6) Alcohol abuse: Assessment and Plan: CHRONIC * Pt admits significant daily EtOH abuse history but reports not Etoh intake x 1 week * CIWA protocol * PRN Ativan * Continued complete cessation advised (7) COPD (chronic obstructive pulmonary disease): Assessment and Plan: CHRONIC * PRN albuterol HFA inhaler for SOB or wheezing (8) (HFpEF) heart failure with preserved ejection fraction: Assessment and Plan: CHRONIC Laboratory Tests 12/01/22 12/02/22 12:52 04:18 NT-Pro-B Natriuret Pep 1860.0 H* 1598.0 H* * Improved BNP overnight despite IVF administration * Admitted in July for CHF exacerbation * 2D echo w/ preserved LVEF and indeterminate diastolic dysfunction in July * Pt appears clinically dry despite elevated Pro BNP - improving dehydration * Pt admits NOT TAKING furosemide, KCL, spironolactone, Mag oxide since August when discharge prescriptions ran out * repeat Pro BNP in AM * Daily weight, strict I&O * Gentle IVF to prevent fluid overload - low threshold to d/c IVF and add diuretic therapy. Home lasix & spironolactone on hold for now (9) Protein-calorie malnutrition, moderate: Assessment and Plan: CHRONIC * Likely 2/2 chronic EtOH abuse and now lung CA * Encourage PO Intake * Consult airport guide
[2022-12-02] MEDS: 0.9 % SODIUM CHLORIDE 1,000 ML 75 ML IV (11:26)
[2022-12-02] MEDS: PANTOPRAZOLE SODIUM 40 MG VIAL IV (11:33)
--- NOTE | 2022-12-02 13:11 | SWNOTE1 ---
SW met with pt to discuss dc needs. Pt does live at home by himself. His daughter is about 5 mintues away and assists as needed. Pt does have walker and canes at home, but does not always use them. Pt did work with therapy earlier and he stated it went well. SW did review therapy note and they recommended home health. SW spoke with pt about HH services coming in. Pt does not feel he needs this at this time. Pt stated once he is feeling better he will look in to outpt therapy or getting a membership at the facility across the street. SW asked pt about his drinking. Pt stated he has been sober for 8 days and he is feeling good, no withdrawals. Pt stated he was ready to quit and in the right mindset. Pt refused any alcohol resources at this time and refused HH. SW to check on pt tomorrow.
[2022-12-02] MEDS: POTASSIUM CHLORIDE 10 MEQ ER TABLET PO ×2 (13:25→21:35)
[2022-12-02] MEDS: NICOTINE 21 MG PATCH TD (13:25)
[2022-12-02 14:37] LABS: Hemoglobin 7.4 g/dL (14.0-18.0)
[2022-12-02 14:40] LABS: Sodium Urine Random 8 mmol/L (30-90)
[2022-12-02 14:57] LABS: Potassium 3.2 mmol/L (3.5-5.1)
[2022-12-02] MEDS: POTASSIUM CHLORIDE 40 MEQ in 0.9 % SODIUM CHLORIDE 250 ML 67.5 MEQ IV (15:21)
[2022-12-02] MEDS: CALCIUM CARBONATE 500 MG (200MG ELEMENTAL) TAB CHEW 1000 MG PO (15:30)
[2022-12-02] MEDS: ACETAMINOPHEN 500 MG TABLET 1000 MG PO (17:32)
[2022-12-02 18:56] LABS: Occult Blood Negative
[2022-12-02] MEDS: LACTOSE -REDUCED (ENSURE ORIGINAL 237 ML LIQUID) PO (21:35)
[2022-12-03] VITALS (15 sets, daily range): BP systolic 131–158; BP diastolic 78–88; PULSE 67–94; RESP 18–20; TEMP 36.6–36.7; O2SAT 90–97; BMI 22.2
[2022-12-03] MEDS: POTASSIUM CHLORIDE 10 MEQ ER TABLET PO ×3 (05:02→21:08)
[2022-12-03] MEDS: 0.9 % SODIUM CHLORIDE 1,000 ML 75 ML IV (05:03)
[2022-12-03 05:14] LABS: Hemoglobin 8.4 g/dL (14.0-18.0); Mean Corpuscular Hemoglobin 32.1 pg (25.9-34.0); Mean Corpuscular Volume 91.6 fL (80.0-94.0); Mean Platelet Volume 9.3 fL (9.5-13.5); Platelet Count 178 10^3/uL (150-450); Red Blood Count 2.62 10^6/uL (4.70-6.10); White Blood Count 9.3 10^3/uL (4.0-11.0)
[2022-12-03 05:42] LABS: Alanine Aminotransferase 36 U/L (16-63); Albumin Globulin Ratio 0.7; Albumin Level 2.2 g/dL (3.4-5.0); Alkaline Phosphatase 58 U/L (46-116); Anion Gap 8.7; Aspartate Amino Transferase 52 U/L (15-37); BUN Creatinine Ratio 11.8; Bilirubin Total 0.8 mg/dL (0.2-1.0); Calcium 7.5 mg/dL (8.5-10.1); Carbon Dioxide 27.3 mmol/L (21.0-32.0); Chloride 97 mmol/L (98-107); Estimated GFR (African America >60 (>=60); Estimated GFR (Non-African Ame >60 (>=60); Globulin 3.1 g/dL; Glucose 94 mg/dL (74-106); Magnesium 1.4 mg/dL (1.8-2.4); Phosphorus 2.1 mg/dL (2.6-4.7); Sodium 130 mmol/L (136-145); Total Protein 5.3 g/dL (6.4-8.2)
[2022-12-03] MEDS: POTASSIUM CHLORIDE 40 MEQ in 0.9 % SODIUM CHLORIDE 250 ML 67.5 MEQ IV (07:47)
[2022-12-03 08:35] LABS: Red Cell Distribution Width 13.1 % (11.0-15.0)
--- NOTE | 2022-12-03 08:43 | CM.NOTE ---
Rounds made with Dr. De Leon, possible discharge today awaiting morning labs. Pt up ad nagi in room. No discharge needs identified.
[2022-12-03] MEDS: PANTOPRAZOLE SODIUM 40 MG VIAL IV (09:52)
[2022-12-03] MEDS: CALCIUM CARBONATE 500 MG (200MG ELEMENTAL) TAB CHEW 1000 MG PO ×3 (09:52→18:39)
[2022-12-03] MEDS: MAGNESIUM OXIDE 400 MG TABLET PO ×2 (09:52→20:50)
[2022-12-03] MEDS: LACTOSE -REDUCED (ENSURE ORIGINAL 237 ML LIQUID) PO ×2 (09:52→20:51)
[2022-12-03] MEDS: METOPROLOL SUCCINATE 50 MG TAB.ER.24H PO ×2 (09:52→20:50)
[2022-12-03] MEDS: FUROSEMIDE 40 MG/4 ML VIAL IVP (09:52)
[2022-12-03] MEDS: FOLIC ACID 1 MG TABLET PO (09:52)
[2022-12-03 10:55] LABS: Band Neutrophils Absolute 0.2 10^3/uL (0.0-0.3); Lymphocytes Absolute Manual 1.76 10^3/uL (1.20-3.80); Monocytes Absolute Manual 0.55 10^3/uL (0.30-0.80); Segmented Neut Absolute Manual 6.78 10^3/uL (1.4-6.5)
--- NOTE | 2022-12-03 11:30 | PT.DAILY ---
Physical Therapy Daily Note PT Daily Note/Assess Start: 12/03/22 11:26 Freq: Status: Active Protocol: Document 12/03/22 11:27 INESSA (Rec: 12/03/22 11:30 INESSA [id number]) Physical Therapy Daily Note/Assessment Time In/Time Out Time In 11:10 Time Out 11:25 Pain In Pain N/A Pain Out Pain N/A Subjective Subjective Pt sitting EOB upon arrival. Agrees to PT. Denies pain currently. Has been up to restroom himself multiple times as he was given Lasix. Therapeutic Exercise Time Therapeutic Exercise Minutes (minutes) 5 Therapeutic Exercise Units 0 Therapeutic Exercise Treatment Therapeutic Exercise Treatment Standing ex complete at sink with 1-2 UE support to maintain balance. Pt instructed to complete HR, marches, HS curls, hip flexion and hip abduction 10x bilat. Minimal fatigue with this. Therapeutic Activity Time Therapeutic Activity Minutes (minutes) 8 Therapeutic Activity Units 1 Therapeutic Activity Treatment Chair Transfer Ability Modified Independent Therapeutic Activity Comments Pt sit>stand from EOB Wilma due to IV lines. Pt amb in almazan with IV pole SUP only for 150' without LOB. Pt has even step length and good sammi noticed. Pt returned to room for standing ex as noted and returned to sitting at EOB with call light in reach and needs met. Total Physical Therapy Time Total Therapy Minutes 13 Total Physical Therapy Units 1 Summary Daily Note Summary Improved gait endurance with IV pole. Very minimal fatigue upon completion. No complaints of pain.
[2022-12-03] MEDS: POTASSIUM PHOSPHATE,MONOBASIC 500 MG TABLET 1000 MG PO ×2 (11:34→18:39)
--- NOTE | 2022-12-03 12:31 | CM.NOTE ---
Discussed with pt about COPD, chronic conditions and preventative care. Information given to pt regarding Pulmonary Rehab, pt does also have lung CA but would like to discuss with physician if it would be beneficial.
--- NOTE | 2022-12-03 13:13 | P.PN_ITS ---
Patient seen and evaluated on 12/03/2022 at 0710 in the AM Charting and documentation from nurse practitioner reviewed and agree with input and assessments as outlined above Physical examination is unchanged from what she has documented. Progress Note: Subjective Subjective Interval history: Date/Time of exam: 12/03/22 1045 The patient is resting in bed watching television at the time of my exam. He is awake and alert and oriented x3. He denies any chest pain, abdominal pain, N/V/D, or worsening shortness of breath beyond his baseline. He reports improved generalized strength since admission and has worked well w/ PT. He was initiated on BID Boost to increase his calorie and protein intake. His electrolyte dyscrasias persist but are improving. Chronic hyponatremia likely beer potomania. Likely d/c in the next 24 hrs pending clinical course Exam Constitutional Vital Signs, click to edit/add: Last Vital Signs Temp 97.8 F 12/03/22 05:46 Pulse 80 12/03/22 11:59 Resp 18 12/03/22 05:46 BP 158/88 H 12/03/22 05:46 Pulse Ox 90 L 12/03/22 05:46 O2 Del Method Room Air 12/03/22 05:46 Common normals: no apparent distress, oriented x3 and alert Exam limitations: no altered mental status Nutritional appearance: underweight Orientation/consciousness: Yes awake HENMD Common normals: normocephalic, head/scalp atraumatic, hearing grossly normal bilaterally, external ears normal and external nose normal Head and scalp: normocephalic and atraumatic Face and sinus: normal facial exam Nose: external nose normal External ear: external ears normal Eye Common normals: PERRL, EOMs intact bilaterally, conjunctivae normal and no scleral icterus General eye: normal appearance of both eyes Alignment: alignment normal Eyelid: eyelid abnormal left upper eyelid (ptosis) Conjunctiva: conjunctiva(e) normal Pupil: PERRL Chest Common normals: inspection of chest normal Chest: symmetrical chest wall rise Respiratory Common normals: normal respiratory effort, no retractions and no use of accessory muscles Effort & inspection: able to speak in complete sentences and symmetric chest movement Auscultation: wheezes (I/E BLL, TRISTEN) Cardio Common normals: no JVD, regular rate, regular rhythm, S1 normal heart sound, S2 normal heart sound, no gallops, no clicks, no murmurs, no rub and peripheral pulses 2+ throughout Rate: regular rate Rhythm: regular rhythm Heart sounds: S1 normal and S2 normal Peripheral pulses: pulses 2+ throughout GI Common normals: Normal to inspection, nondistended, normoactive bowel sounds present, soft to palpation, non-tender, no hepatosplenomegaly, no masses and no bruits Palpation: soft and no hepatosplenomegaly Bladder/kidney exam: bladder normal to palpation Back & Pelvis Common normals: thoracic and lumbar spine normal to inspection Thoracic spine/upper back: normal to inspection Extremity Common normals: normal to inspection, normal capillary refill and no pedal edema General: normal exam except as noted; no clubbing and no cyanosis Neuro [place] Coma Scale: GCS not evaluated Common normals: oriented x3, CN's II-XII intact bilaterally, moves all extremities, no focal motor deficits and no sensory deficits noted Sensorium/orientation: awake and alert Speech: speech normal Motor exam: strength 5/5 throughout and no pronator drift Psych Common normals: mental status grossly normal, thought process normal, affect normal and activity/motor behavior normal Thought process: normal thought process Progress Note: Objective Labs Labs: Short CBC 12/02/22 12/03/22 Range/Units 14:28 03:50 WBC 9.3 (4.0-11.0) 10^3/uL Hgb 7.4 L 8.4 L (14.0-18.0) g/dL Hct 21.0 L* 24.0 L (42.0-54.0) % Plt Count 178 (150-450) 10^3/uL BMP 12/02/22 12/03/22 14:28 03:50 Sodium 130 L Potassium 3.2 L 3.0 L Chloride 97 L Carbon Dioxide 27.3 BUN 8.0 Creatinine 0.68 L Glucose 94 Calcium 7.5 L Liver Function 12/03/22 Range/Units 03:50 Total Bilirubin 0.8 (0.2-1.0) mg/dL AST 52 H (15-37) U/L ALT 36 (16-63) U/L Alkaline Phosphatase 58 (46-116) U/L Albumin 2.2 L (3.4-5.0) g/dL Laboratory Tests 12/03/22 03:50 Phosphorus 2.1 L Magnesium 1.4 L Progress Note: A&P Assessment and Plan (1) Disorder of electrolytes: Assessment and Plan: ACUTE * Pt intended to be inpatient from 12/02/22 d/t persistent, severe electrolyte disturbances * Electrolyte dyscrasias persist but improving * Continue Tele monitoring * Multifactorial etiology - Lung CA, EtOH abuse, poor PO intake. * Pt reports not taking diuretics or KCL supplementation since August when his prescriptions ran out. Unlikely contributor to electrolyte disturbances * Moderate hyponatremia (acute on chronic) - Resolving * Na 130 today - Chronic baseline 128-134 * Suspect hypovolemic hyponatremia vs beer potomania. Random Ur Na low. Serum/urine osmolality still pending * Lung CA and EtOH abuse likely contributing to hyponatremia * IVF saline locked today - Concern for fluid overload w/ elevated BNP today * Severe hypomagnesemia - recurrent today, may reflect hemodilution in setting of fluid overload * Mag 1.4 today * Mag oxide initiated today * Recheck in AM * Severe hypokalemia - Improving but persistent * K+ 3.0 today * KCL 10 mEq PO TID scheduled started yesterday * Give K-Phos neutral PO 2 tabs AC x 3 doses today (22 mEq additional KCL today) * repeat CMP in AM * Moderate hypophosphatemia * Phos 2.0 today despite k-phos IVPB doses yesterday * Give K-Phos neutral PO 2 tabs AC x 3 doses today, 684 mg of phosphorus total * Recheck phos in AM * Hypocalcemia * Normal when corrected for hypoalbuminemia * Tums ordered * Repeat CMP, Mag, PHos in AM (2) Generalized weakness: Assessment and Plan: ACUTE * Resolving * 2/2 significant electrolyte disturbances and overall depleted state in setting of lung CA * See electrolytes above * PT consult for strengthening * General diet - encourage PO Intake * see protein calorie malnutrition (3) Mass of upper lobe of left lung: Assessment and Plan: CHRONIC * Follow outpatient with Dr Garber, Oncologist * Defer to outpatient management (4) Anemia: Assessment and Plan: ACUTE ON CHRONIC * Hgb stable (8.4) after 1 un PRBCs transfused yesterday afternoon * No evidence of active bleeding - denies hematochezia/melena. * FOB neg * Continue PPI IVP daily for gastric protection * Repeat CBC in am (5) Tobacco dependence: Assessment and Plan: CHRONIC * Encourage complete tobacco cessation * 21 mg Nicoderm patch daily (6) Alcohol abuse: Assessment and Plan: CHRONIC * Pt admits significant daily EtOH abuse history but reports not Etoh intake x 1 week * CIWA protocol * PRN Ativan * Continued complete cessation advised (7) COPD (chronic obstructive pulmonary disease): Assessment and Plan: CHRONIC * PRN albuterol HFA inhaler for SOB or wheezing (8) (HFpEF) heart failure with preserved ejection fraction: Assessment and Plan: CHRONIC Laboratory Tests 12/01/22 12/02/22 12/03/22 12:52 04:18 03:50 NT-Pro-B Natriuret Pep 1860.0 H* 1598.0 H* 3265.0 H* * Worsened BNP overnight indicating likely fluid overload * No hypoxia, peripheral edema, increased SOB * Admitted in July for CHF exacerbation * 2D echo w/ preserved LVEF and indeterminate diastolic dysfunction in July * Pt appears euvolemic but borderline hypervolemic * Saline lock IVF now * Give one dose IVP Lasix 40 mg * Resume previously prescribed PO lasix dose in AM * repeat Pro BNP in AM * Daily weight, strict I&O (9) Protein-calorie malnutrition, moderate: Assessment and Plan: CHRONIC * Likely 2/2 chronic EtOH abuse and now lung CA * Encourage PO Intake * Consult venetian blind assembler - BID boost recommended and ordered
--- NOTE | 2022-12-03 13:13 | PM.PN ---
Progress Note: Subjective Subjective Interval history: Date/Time of exam: 12/03/22 1045 The patient is resting in bed watching television at the time of my exam. He is awake and alert and oriented x3. He denies any chest pain, abdominal pain, N/V/D, or worsening shortness of breath beyond his baseline. He reports improved generalized strength since admission and has worked well w/ PT. He was initiated on BID Boost to increase his calorie and protein intake. His electrolyte dyscrasias persist but are improving. Chronic hyponatremia likely beer potomania. Likely d/c in the next 24 hrs pending clinical course Exam Constitutional Vital Signs, click to edit/add: Last Vital Signs Temp 97.8 F 12/03/22 05:46 Pulse 80 12/03/22 11:59 Resp 18 12/03/22 05:46 BP 158/88 H 12/03/22 05:46 Pulse Ox 90 L 12/03/22 05:46 O2 Del Method Room Air 12/03/22 05:46 Common normals: no apparent distress, oriented x3 and alert Exam limitations: no altered mental status Nutritional appearance: underweight Orientation/consciousness: Yes awake HENIA Common normals: normocephalic, head/scalp atraumatic, hearing grossly normal bilaterally, external ears normal and external nose normal Head and scalp: normocephalic and atraumatic Face and sinus: normal facial exam Nose: external nose normal External ear: external ears normal Eye Common normals: PERRL, EOMs intact bilaterally, conjunctivae normal and no scleral icterus General eye: normal appearance of both eyes Alignment: alignment normal Eyelid: eyelid abnormal left upper eyelid (ptosis) Conjunctiva: conjunctiva(e) normal Pupil: PERRL Chest Common normals: inspection of chest normal Chest: symmetrical chest wall rise Respiratory Common normals: normal respiratory effort, no retractions and no use of accessory muscles Effort & inspection: able to speak in complete sentences and symmetric chest movement Auscultation: wheezes (I/E BLL, TRISTEN) Cardio Common normals: no JVD, regular rate, regular rhythm, S1 normal heart sound, S2 normal heart sound, no gallops, no clicks, no murmurs, no rub and peripheral pulses 2+ throughout Rate: regular rate Rhythm: regular rhythm Heart sounds: S1 normal and S2 normal Peripheral pulses: pulses 2+ throughout GI Common normals: Normal to inspection, nondistended, normoactive bowel sounds present, soft to palpation, non-tender, no hepatosplenomegaly, no masses and no bruits Palpation: soft and no hepatosplenomegaly Bladder/kidney exam: bladder normal to palpation Back & Pelvis Common normals: thoracic and lumbar spine normal to inspection Thoracic spine/upper back: normal to inspection Extremity Common normals: normal to inspection, normal capillary refill and no pedal edema General: normal exam except as noted; no clubbing and no cyanosis Neuro [place] Coma Scale: GCS not evaluated Common normals: oriented x3, CN's II-XII intact bilaterally, moves all extremities, no focal motor deficits and no sensory deficits noted Sensorium/orientation: awake and alert Speech: speech normal Motor exam: strength 5/5 throughout and no pronator drift Psych Common normals: mental status grossly normal, thought process normal, affect normal and activity/motor behavior normal Thought process: normal thought process Progress Note: Objective Labs Labs: Short CBC 12/02/22 12/03/22 Range/Units 14:28 03:50 WBC 9.3 (4.0-11.0) 10^3/uL Hgb 7.4 L 8.4 L (14.0-18.0) g/dL Hct 21.0 L* 24.0 L (42.0-54.0) % Plt Count 178 (150-450) 10^3/uL BMP 12/02/22 12/03/22 14:28 03:50 Sodium 130 L Potassium 3.2 L 3.0 L Chloride 97 L Carbon Dioxide 27.3 BUN 8.0 Creatinine 0.68 L Glucose 94 Calcium 7.5 L Liver Function 12/03/22 Range/Units 03:50 Total Bilirubin 0.8 (0.2-1.0) mg/dL AST 52 H (15-37) U/L ALT 36 (16-63) U/L Alkaline Phosphatase 58 (46-116) U/L Albumin 2.2 L (3.4-5.0) g/dL Laboratory Tests 12/03/22 03:50 Phosphorus 2.1 L Magnesium 1.4 L Progress Note: A&P Assessment and Plan (1) Disorder of electrolytes: Assessment and Plan: ACUTE Pt intended to be inpatient from 12/02/22 d/t persistent, severe electrolyte disturbances Electrolyte dyscrasias persist but improving Continue Tele monitoring Multifactorial etiology - Lung CA, EtOH abuse, poor PO intake. Pt reports not taking diuretics or KCL supplementation since August when his prescriptions ran out. Unlikely contributor to electrolyte disturbances Moderate hyponatremia (acute on chronic) - Resolving Na 130 today - Chronic baseline 128-134 Suspect hypovolemic hyponatremia vs beer potomania. Random Ur Na low. Serum/urine osmolality still pending Lung CA and EtOH abuse likely contributing to hyponatremia IVF saline locked today - Concern for fluid overload w/ elevated BNP today Severe hypomagnesemia - recurrent today, may reflect hemodilution in setting of fluid overload Mag 1.4 today Mag oxide initiated today Recheck in AM Severe hypokalemia - Improving but persistent K+ 3.0 today KCL 10 mEq PO TID scheduled started yesterday Give K-Phos neutral PO 2 tabs AC x 3 doses today (22 mEq additional KCL today) repeat CMP in AM Moderate hypophosphatemia Phos 2.0 today despite k-phos IVPB doses yesterday Give K-Phos neutral PO 2 tabs AC x 3 doses today, 684 mg of phosphorus total Recheck phos in AM Hypocalcemia Normal when corrected for hypoalbuminemia Tums ordered Repeat CMP, Mag, PHos in AM (2) Generalized weakness: Assessment and Plan: ACUTE Resolving 2/2 significant electrolyte disturbances and overall depleted state in setting of lung CA See electrolytes above PT consult for strengthening General diet - encourage PO Intake see protein calorie malnutrition (3) Mass of upper lobe of left lung: Assessment and Plan: CHRONIC Follow outpatient with Dr Garber, Oncologist Defer to outpatient management (4) Anemia: Assessment and Plan: ACUTE ON CHRONIC Hgb stable (8.4) after 1 un PRBCs transfused yesterday afternoon No evidence of active bleeding - denies hematochezia/melena. FOB neg Continue PPI IVP daily for gastric protection Repeat CBC in am (5) Tobacco dependence: Assessment and Plan: CHRONIC Encourage complete tobacco cessation 21 mg Nicoderm patch daily (6) Alcohol abuse: Assessment and Plan: CHRONIC Pt admits significant daily EtOH abuse history but reports not Etoh intake x 1 week CIWA protocol PRN Ativan Continued complete cessation advised (7) COPD (chronic obstructive pulmonary disease): Assessment and Plan: CHRONIC PRN albuterol HFA inhaler for SOB or wheezing (8) (HFpEF) heart failure with preserved ejection fraction: Assessment and Plan: CHRONIC Laboratory Tests 12/01/22 12/02/22 12/03/22 12:52 04:18 03:50 NT-Pro-B Natriuret Pep 1860.0 H* 1598.0 H* 3265.0 H* Worsened BNP overnight indicating likely fluid overload No hypoxia, peripheral edema, increased SOB Admitted in July for CHF exacerbation 2D echo w/ preserved LVEF and indeterminate diastolic dysfunction in July Pt appears euvolemic but borderline hypervolemic Saline lock IVF now Give one dose IVP Lasix 40 mg Resume previously prescribed PO lasix dose in AM repeat Pro BNP in AM Daily weight, strict I&O (9) Protein-calorie malnutrition, moderate: Assessment and Plan: CHRONIC Likely 2/2 chronic EtOH abuse and now lung CA Encourage PO Intake Consult mounter saxophones - BID boost recommended and ordered
--- NOTE | 2022-12-03 13:49 | CM.NOTE ---
Pt given list of primary care physicians accepting new pt's at this time, pt would like to f/u with Brittany Jackson. Information given to litigation secretary (Serenity) on Med-surg and she will make f/u appt for pt.
[2022-12-04] VITALS (9 sets, daily range): BP systolic 120–136; BP diastolic 78–79; PULSE 74–93; RESP 18; TEMP 36.7; O2SAT 95
[2022-12-04 05:27] LABS: Basophils Absolute Auto 0.1 10^3/uL (0.0-0.1); Basophils Percent Auto 0.5 % (0.2-2.0); Eosinophils Percent Auto 0.4 % (0.9-7.0); Hemoglobin 7.7 g/dL (14.0-18.0); Immature Granulocytes Abs Auto 0.09 10^3/uL (0.00-0.03); Immature Granulocytes Pct Auto 0.8 % (0.0-0.5); Lymphocytes Absolute Auto 2.2 10^3/uL (1.2-3.8); Lymphocytes Percent Auto 20.2 % (20.5-60.0); Mean Corpuscular HGB Conc 35.3 g/dL (29.9-35.2); Mean Corpuscular Hemoglobin 33.2 pg (25.9-34.0); Mean Platelet Volume 9.9 fL (9.5-13.5); Monocytes Absolute Auto 0.6 10^3/uL (0.3-0.8); Monocytes Percent Auto 5.3 % (1.7-12.0); Neutrophils Absolute Auto 8.1 10^3/uL (1.4-6.5); Neutrophils Percent Auto 72.8 % (43.0-75.0); Platelet Count 204 10^3/uL (150-450); Red Blood Count 2.32 10^6/uL (4.70-6.10); White Blood Count 11.1 10^3/uL (4.0-11.0)
[2022-12-04 05:42] LABS: Hematocrit 21.8 % (42.0-54.0)
[2022-12-04 05:55] LABS: Alanine Aminotransferase 37 U/L (16-63); Albumin Globulin Ratio 0.7; Albumin Level 2.1 g/dL (3.4-5.0); Alkaline Phosphatase 56 U/L (46-116); Anion Gap 8.6; Aspartate Amino Transferase 45 U/L (15-37); BUN Creatinine Ratio 12.3; Bilirubin Total 0.5 mg/dL (0.2-1.0); Calcium 7.8 mg/dL (8.5-10.1); Carbon Dioxide 28.3 mmol/L (21.0-32.0); Chloride 94 mmol/L (98-107); Estimated GFR (African America >60 (>=60); Estimated GFR (Non-African Ame >60 (>=60); Globulin 3.2 g/dL; Glucose 98 mg/dL (74-106); Magnesium 1.1 mg/dL (1.8-2.4); Phosphorus 2.5 mg/dL (2.6-4.7); Potassium 3.9 mmol/L (3.5-5.1); Sodium 127 mmol/L (136-145); Total Protein 5.3 g/dL (6.4-8.2)
[2022-12-04] MEDS: POTASSIUM CHLORIDE 10 MEQ ER TABLET PO (06:16)
[2022-12-04] MEDS: CALCIUM CARBONATE 500 MG (200MG ELEMENTAL) TAB CHEW 1000 MG PO (07:55)
[2022-12-04] MEDS: LACTOSE -REDUCED (ENSURE ORIGINAL 237 ML LIQUID) PO (10:07)
[2022-12-04] MEDS: MAGNESIUM OXIDE 400 MG TABLET PO (10:07)
[2022-12-04] MEDS: PANTOPRAZOLE SODIUM 40 MG VIAL IV (10:07)
[2022-12-04] MEDS: FOLIC ACID 1 MG TABLET PO (10:08)
[2022-12-04] MEDS: METOPROLOL SUCCINATE 50 MG TAB.ER.24H PO (10:08)
[2022-12-04] MEDS: FUROSEMIDE 40 MG TABLET PO (10:08)
--- NOTE | 2022-12-04 11:02 | PT.DAILY ---
Physical Therapy Daily Note PT Daily Note/Assess Start: 12/03/22 11:26 Freq: Status: Active Protocol: Document 12/04/22 11:00 VIGNESH (Rec: 12/04/22 11:02 VIGNESH [id number]) Visit Not Completed Visit Not Completed Visit Not Completed Due to: Other Other Reason Visit Not Completed Patient declined, being DC in 45 minutes waiting for ride. Denies needs. Reports was up walking halls all day yesterday, and feels that PT is not necessary. Physical Therapy Daily Note/Assessment Time In/Time Out Time In 10:55 Time Out 11:00 GG. Functional Abilities and Goals-Complete for Swing Bed Patients Only [id number]. Self-Care [id number]. Mobility
--- NOTE | 2022-12-04 11:12 | PM.DS1 ---
DS: Providers Provider Date of admission: 12/02/22 13:19 Primary care physician: Jennifer Garber MD Consults: 12/01/22 Consult to Dietitian Routine Reason For Exam: weight loss Reason for consultation: no appetitite/ weight loss Has provider been notified: No 12/01/22 17:36 Physical Therapy Eval and Treat Routine Reason for consultation: Generalized weakness 12/02/22 12:22 Consult to Dietitian Routine Reason For Exam: Malnutrition Reason for consultation: malnutrition in setting of lung CA Has provider been notified: No DS: Diagnosis Discharge Diagnosis (1) Disorder of electrolytes: (2) Generalized weakness: (3) Mass of upper lobe of left lung: (4) Anemia: (5) Tobacco dependence: (6) Alcohol abuse: (7) COPD (chronic obstructive pulmonary disease): (8) (HFpEF) heart failure with preserved ejection fraction: (9) Protein-calorie malnutrition, moderate: DS: Summary Hospital Course Hospital Course: Patient presented to the emergency with increasing weakness. Found to have significant hypomagnesemia, hyponatremia, hypokalemia, Hypocalcemia. Patient was initially supplemented in the emergency room but unable to improve his overall weakness. Patient was admitted for work-up and treatment of same. Also found to have significant anemia. This anemia deteriorated throughout the hospital stay. Patient was given multiple supplements IV and orally to improve all of the above electrolyte disturbances. His magnesium is still somewhat low but much improved. His potassium is improved to normal. He is still iron deficiency anemia. This can be followed up as an outpatient. Hyponatremia down somewhat today as well. But overall patient feels improved to the point that he can ambulate safely. Will be discharged home in improving condition. Medications see list. Follow-up with PCP within the next week. Status at Discharge Overall status at discharge: patient is not back to baseline Time Spent with Patient Time attestation: Total time spent providing and/or coordinating discharge services: Exam Constitutional Vital Signs, click to edit/add: Last Vital Signs Temp 98.0 F 12/04/22 04:22 Pulse 74 12/04/22 10:24 Resp 18 12/04/22 04:22 BP 120/79 12/04/22 10:17 Pulse Ox 95 12/04/22 04:22 O2 Del Method Room Air 12/04/22 04:22 Common normals: no apparent distress, oriented x3 and alert Exam limitations: no altered mental status Nutritional appearance: underweight Orientation/consciousness: Yes awake HENMT Common normals: normocephalic, head/scalp atraumatic, hearing grossly normal bilaterally, external ears normal and external nose normal Head and scalp: normocephalic and atraumatic Face and sinus: normal facial exam Nose: external nose normal External ear: external ears normal Eye Common normals: PERRL, EOMs intact bilaterally, conjunctivae normal and no scleral icterus General eye: normal appearance of both eyes Alignment: alignment normal Eyelid: eyelid abnormal left upper eyelid (ptosis) Conjunctiva: conjunctiva(e) normal Pupil: PERRL Chest Common normals: inspection of chest normal Chest: symmetrical chest wall rise Respiratory Common normals: normal respiratory effort, no retractions and no use of accessory muscles Effort & inspection: able to speak in complete sentences and symmetric chest movement Auscultation: wheezes (I/E BLL, TRISTEN) Cardio Common normals: no JVD, regular rate, regular rhythm, S1 normal heart sound, S2 normal heart sound, no gallops, no clicks, no murmurs, no rub and peripheral pulses 2+ throughout Rate: regular rate Rhythm: regular rhythm Heart sounds: S1 normal and S2 normal Peripheral pulses: pulses 2+ throughout GI Common normals: Normal to inspection, nondistended, normoactive bowel sounds present, soft to palpation, non-tender, no hepatosplenomegaly, no masses and no bruits Palpation: soft and no hepatosplenomegaly Bladder/kidney exam: bladder normal to palpation Back & Pelvis Common normals: thoracic and lumbar spine normal to inspection Thoracic spine/upper back: normal to inspection Extremity Common normals: normal to inspection, normal capillary refill and no pedal edema General: normal exam except as noted; no clubbing and no cyanosis Neuro [place] Coma Scale: GCS not evaluated Common normals: oriented x3, CN's II-XII intact bilaterally, moves all extremities, no focal motor deficits and no sensory deficits noted Sensorium/orientation: awake and alert Speech: speech normal Motor exam: strength 5/5 throughout and no pronator drift Psych Common normals: mental status grossly normal, thought process normal, affect normal and activity/motor behavior normal Thought process: normal thought process DS: Data Data Completed and Pending Labs on day of discharge: Labs from last 24 hours 12/04/22 04:28 WBC 11.1 H RBC 2.32 L Hgb 7.7 L Hct 21.8 L* MCV 94.0 MCH 33.2 MCHC 35.3 H RDW 14.0 Plt Count 204 MPV 9.9 Neut % (Auto) 72.8 Lymph % (Auto) 20.2 L [place] % (Auto) 5.3 Eos % (Auto) 0.4 L Baso % (Auto) 0.5 Neut # (Auto) 8.1 H Lymph # (Auto) 2.2 [place] # (Auto) 0.6 Eos # (Auto) 0.0 Baso # (Auto) 0.1 Abs Immat Gran (auto) 0.09 H Imm/Tot Granulo (auto) 0.8 H Sodium 127 L Potassium 3.9 Chloride 94 L Carbon Dioxide 28.3 Anion Gap 8.6 BUN 9.0 Creatinine 0.73 Est GFR ( Amer) >60 Est GFR (Non-Af Amer) >60 BUN/Creatinine Ratio 12.3 Glucose 98 Calcium 7.8 L Phosphorus 2.5 L Magnesium 1.1 L Total Bilirubin 0.5 AST 45 H ALT 37 Alkaline Phosphatase 56 NT-Pro-B Natriuret Pep 4867.0 H* Total Protein 5.3 L Albumin 2.1 L Globulin 3.2 Albumin/Globulin Ratio 0.7 Discharge Plan Discharge Disposition: Home, Self-Care Condition: Good Discharge Medications: New calcium carbonate 200 mg calcium (500 mg) Tablet,Chewable 600 mg PO AC Qty: 180 11RF potassium chloride [Klor-Con M10] 10 mEq Tablet,Er Particles/Crystals 10 meq PO TID Qty: 90 11RF pantoprazole [Protonix] 40 mg tablet,delayed release (DR/EC) 40 mg PO DAILY 28 Days Qty: 28 0RF magnesium oxide 400 mg magnesium capsule 400 mg PO TID Qty: 90 11RF Continued metoprolol succinate 50 mg tablet extended release 24 hr 50 mg PO BID folic acid 1 mg tablet 1 mg PO DAILY Qty: 30 0RF spironolactone [Aldactone] 50 mg tablet 50 mg PO DAILY Qty: 30 0RF furosemide [Lasix] 40 mg tablet 40 mg PO DAILY Qty: 30 0RF Discontinued potassium chloride 20 mEq tablet extended release 20 meq PO DAILY Qty: 30 0RF magnesium oxide 400 mg magnesium tablet 400 mg PO BID Qty: 60 0RF Activity: resume usual activities as tolerated Diet: advance to your usual diet Patient Instructions: Potassium Chloride (By mouth), Antacid, Calcium Containing (By mouth), Pantoprazole (By mouth), Magnesium (By mouth), Weakness (DC) Forms: Portal Instructions Follow Up Appointments: Follow up appt. with Faye Modi NP on Dec.09 @ 8:30am Office #: [phone] Discharge Date/Time: 12/04/22 12:15
--- NOTE | 2022-12-06 13:49 | CM.DCFOLLOWU ---
Person spoke with: Jaret How are you feeling? Much better How is your pain? No pain Did you understand your discharge instructions? Yes Do you have any questions about your discharge instructions? No Were you given any prescriptions at discharge? Yes Were you able to get your prescriptions filled? Yes Do you understand how to take your medications as ordered? Yes Do you have any questions about your follow up appointment and do you plan to keep your follow up appointment? I rescheduled appt today Is there anything else that you would like to discuss? No Questions/Comments/Concerns/Other:
== END 2022-12-04 12:15 | disposition home or self-care (01) ==
LOC: ER 15:56 → MS 17:25
PROVIDERS: Nurse Practitioner Family; Admitting Provider Family Medicine; Emergency Provider Emergency Medicine; PCP Internal Medicine Hematology & Oncology; Visit Provider Nurse Practitioner
DX: E83.42 Hypomagnesemia (principal); E87.6 Hypokalemia; E87.1 Hypo-osmolality and hyponatremia; E83.51 Hypocalcemia; E83.39 Other disorders of phosphorus metabolism; R53.1 Weakness; F10.20 Alcohol dependence, uncomplicated; D64.9 Anemia, unspecified; E44.0 Moderate protein-calorie malnutrition; C34.90 Malignant neoplasm of unspecified part of unspecified bronchus or lung; J44.9 Chronic obstructive pulmonary disease, unspecified; I50.32 Chronic diastolic (congestive) heart failure; Z68.22 Body mass index [BMI] 22.0-22.9, adult; F17.210 Nicotine dependence, cigarettes, uncomplicated; Z79.899 Other long term (current) drug therapy; Z90.49 Acquired absence of other specified parts of digestive tract; Z90.89 Acquired absence of other organs
CPT/HCPCS: 36415; 71045; 80048; 80053; 81001; 82550; 82948; 83735; 83880; 83930; 83935; 84100; 84132; 84300; 84484; 85014; 85018; 85025; 85027; 86850; 86900; 86901; 87086; 93005; 96365; 96366; 96367; 96368; 96372; 96375; 96376; 97161; 97530; 99285; G0328; G0378; J3480; P9016

== ENCOUNTER 2023-01-04 07:41 | Outpatient (RCR) | payer BC, SELFPAY | END 2023-01-06 23:59 | disposition home or self-care (01) | LOC: INF 07:41 | PROVIDERS: PCP Internal Medicine Hematology & Oncology; Visit Provider Internal Medicine Hematology & Oncology | DX: C34.90 Malignant neoplasm of unspecified part of unspecified bronchus or lung (principal); D64.9 Anemia, unspecified; R91.1 Solitary pulmonary nodule; C34.12 Malignant neoplasm of upper lobe, left bronchus or lung; D75.839 Thrombocytosis, unspecified; D72.829 Elevated white blood cell count, unspecified; F17.210 Nicotine dependence, cigarettes, uncomplicated | CPT/HCPCS: G0463 ==

== ENCOUNTER 2023-01-25 07:33 | Outpatient (RCR) | payer BC, SELFPAY ==
[2023-01-25 12:13] LABS: Basophils Absolute Auto 0.1 10^3/uL (0.0-0.1); Basophils Percent Auto 0.7 % (0.2-2.0); Eosinophils Percent Auto 0.3 % (0.9-7.0); Hematocrit 39.3 % (42.0-54.0); Immature Granulocytes Abs Auto 0.03 10^3/uL (0.00-0.03); Immature Granulocytes Pct Auto 0.4 % (0.0-0.5); Lymphocytes Absolute Auto 1.6 10^3/uL (1.2-3.8); Lymphocytes Percent Auto 21.3 % (20.5-60.0); Mean Corpuscular HGB Conc 33.1 g/dL (29.9-35.2); Mean Corpuscular Hemoglobin 32.4 pg (25.9-34.0); Mean Platelet Volume 9.1 fL (9.5-13.5); Monocytes Absolute Auto 0.5 10^3/uL (0.3-0.8); Monocytes Percent Auto 7.4 % (1.7-12.0); Neutrophils Absolute Auto 5.1 10^3/uL (1.4-6.5); Neutrophils Percent Auto 69.9 % (43.0-75.0); Platelet Count 179 10^3/uL (150-450); Red Blood Count 4.01 10^6/uL (4.70-6.10); Red Cell Distribution Width 15.9 % (11.0-15.0); White Blood Count 7.3 10^3/uL (4.0-11.0)
[2023-01-25 12:15] LABS: Erythrocyte Sedimentation Rate 44 mm/hr (<=20)
[2023-01-25 12:30] LABS: Alanine Aminotransferase 35 U/L (16-63); Albumin Globulin Ratio 0.8; Albumin Level 3.5 g/dL (3.4-5.0); Alkaline Phosphatase 146 U/L (46-116); Anion Gap 15.7; Aspartate Amino Transferase 90 U/L (15-37); BUN Creatinine Ratio 7.8; Bilirubin Total 0.6 mg/dL (0.2-1.0); Calcium 9.5 mg/dL (8.5-10.1); Carbon Dioxide 26.9 mmol/L (21.0-32.0); Chloride 93 mmol/L (98-107); Estimated GFR (African America >60 (>=60); Estimated GFR (Non-African Ame >60 (>=60); Globulin 4.6 g/dL; Glucose 109 mg/dL (74-106); Potassium 4.6 mmol/L (3.5-5.1); Sodium 131 mmol/L (136-145); Total Protein 8.1 g/dL (6.4-8.2)
[2023-01-25 12:31] LABS: C Reactive Protein <0.50 mg/dL (<=0.50)
[2023-01-25 12:39] LABS: Percent Iron Saturation 65.3 %
== END 2023-01-25 13:00 | disposition home or self-care (01) ==
LOC: INF 07:33
PROVIDERS: PCP Internal Medicine Hematology & Oncology; Visit Provider Internal Medicine Hematology & Oncology
DX: R91.1 Solitary pulmonary nodule (principal); D64.9 Anemia, unspecified; C34.12 Malignant neoplasm of upper lobe, left bronchus or lung; D75.839 Thrombocytosis, unspecified; D72.829 Elevated white blood cell count, unspecified; F17.210 Nicotine dependence, cigarettes, uncomplicated
CPT/HCPCS: 36415; 80053; 82607; 82728; 82746; 83540; 83550; 85025; 85652; 86140; G0463

== ENCOUNTER 2023-07-18 16:16 | Inpatient (IN) | payer MEDICARE, OTHER, SELFPAY ==
[2023-07-18] VITALS (55 sets, daily range): BP systolic 83–149; BP diastolic 52–108; PULSE 77–151; TEMP 35.9–36.1; O2SAT 86–100; BMI 22.2; BMI 22.7
--- OUTSIDE RECORDS SUMMARY | 2023-07-18 16:33 | XMS_ITS | CCD ---
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 Name Role Phone EDWIN ., SEN Attending Unavailable EDWIN ., SEN Admitting Unavailable KAREN, DR TREVINO Primary Care Unavailable COLLINS, DR ANNE Cornejo Consulting Unavailable YAMILA HUNTER Consulting Unavailable EDWIN ., SEN Consulting Unavailable CECILIO ., NICHOLE Attending Unavailable CECILIO ., NICHOLE Admitting Unavailable KAREN, DR TREVINO Primary Care Unavailable COLLINS, DR ANNE Cornejo Consulting Unavailable CECILIO ., NICHOLE Consulting Unavailable KAREN, DR TREVINO Attending Unavailable HOUSE, DR WADE Vivaritting Unavailable HOUSE, DR TREVINO Primary Care Unavailable HOUSE, DR TREVINO Primary Care Unavailable HOUSE, DR TREVINO Consulting Unavailable HOUSE, DR TREVINO Attending Unavailable HOUSE, DR TREVINO Admitting Unavailable WEST, DR ANNE Cornejo Consulting Unavailable HOUSE, DR TREVINO Primary Care Unavailable HARSH, LAISHA Otto Attending Unavailable HARSH, LAISHA Otto Admitting Unavailable HIGHLANDER, LAISHA Otto Consulting Unavailable HIGHLANDER, LAISHA Otto Admitting Unavailable HOUSE, DR TREVINO Primary Care Unavailable HIGHLANDER, LAISHA Otto Attending Unavailable ITALO, DR LEIGH Mitchell Consulting Unavailable HARSH, LAISHA Otto Consulting Unavailable CASIEANDER, LAISHA Otto Admitting Unavailable ZIEBER, DR LEIGH Mitchell Consulting Unavailable HOUSE, DR TREVINO Primary Care Unavailable HIGHLANDER, LAISHA Otto Attending Unavailable HIGHLANDER, LAISHA Otto Consulting Unavailable MARLENI GARBER Referring Unavailable CHINYERE CANDELARIA Attending Unavailable CHARLIE RODARTE Referring Unavaila ble CAYDEN, CAHRLIE Referring Unavaila ble CHINYERE CANDELARIA Referring Unavailable CHINYERE CANDELARIA Attending Unavailable CHIYNERE CANDELARIA Referring Unavailable House , Wade Wolf Primary Care Provider Chinyere Candelaria Unavailable Jennifer Garber MD Unavailable Chinyere Candelaria MD Unavailable MARTIN, SUDISH Referring Unavailable HOUSE SR, WADE WOLF Primary Care Unavai lable MARTIN, SUDISH Referring Unavailable HOUSE SR, WADE WOLF Primary Care Unavai lable HOUSE SR, WADE WOLF Primary Care Unavai lable MARTIN, SUDISH Referring Unavailable House Sr., Wade BULL Primary Care Prov ider House Sr., Wade BULL Primary Care Provider MARTIN, SUDISH Referring Unavailable MARTIN, SUDISH Attending Unavailable HOUSE SR, WADE P Primary Care Unavailable ROBERTO, DON Referring Unavailable HOUSE SR, WADE P Primary Care Unavailable ROBERTO, DON Referring Unavailable HOUSE SR, WADE P Primary Care Unavailable HOUSE SR, WADE P Primary Care Unavailable ROBERTO, DON Attending Unavailable HOUSE SR, WADE P Primary Care Unavailable ROBERTO, DON Attending Unavailable HOUSE SR, WADE P Primary Care Unavailable ROBERTO, DON Attending Unavailable ROBERTO, DON Referring Unavailable HOUSE SR, WADE P Primary Care Unavailable ROBERTO, DON Attending Unavailable HOUSE SR, WADE P Primary Care Unavailable HOUSE SR, WADE P Primary Care Unavailable HOUSE SR, WADE P Primary Care Unavailable ROBERTO, DON Referring Unavailable ROBERTO, DON Attending Unavailable ROSARIO, JENNIFER Referring Unavailable HOUSE SR, WADE P Primary Care Unavailable MARTIN, SUDISH Referring Unavailable HOUSE SR, WADE P Primary Care Unavailable MARTIN, SUDISH Attending Unavailable HOUSE SR, WADE P Primary Care Unavailable HOUSE SR, WADE P Referring Unavailable MARTIN, SUDISH Referring Unavailable HOUSE SR, WADE P Primary Care Unavailable ROBERTO, DON Attending Unavailable SELF Referring Unavailable HOUSE SR, WADE P Primary Care Unavailable HOUSE SR, WADE P Primary Care Unavailable ROBERTO, DON Referring Unavailable HOUSE SR, WADE P Primary Care Unavailable HOUSE SR, WADE P Primary Care Unavailable ROBERTO, DON Attending Unavailable HOUSE SR, WADE P Primary Care Unavailable ROBERTO, DON Referring Unavailable HOUSE SR, WADE P Primary Care Unavailable ROBERTO, DON Attending Unavailable HOUSE SR, WADE P Primary Care Unavailable Allergies Allergy Classification Reported Allergen(s) Allergy Type Date of Onset Reaction(s) Facility (1 source) ALLERGIES NOT ON FILE; Translations: [ALLERGIES NOT ON FILE] Propensity to adverse reactions (disorder) [facility] Repository Medications Current Medications Medication Drug Class(es) Dates Sig (Normalized) Sig (Original) Calcium Carbonate (2 sources) calcium carbonat e (CALCIUM 500 ORAL) Take by mouth. 0 Active Comment on above: Take by mouth. folic acid 1 mg oral tablet (2 sources) Start: 08-01-2022 take 1 tablet by mouth once daily folic acid 1 mg tablet Take 1 mg by mouth once daily. 0 08/01/2022 Active Comment on above: Take 1 mg by mouth o nce daily. magnesium oxide 400 mg oral tablet (2 sources) Start: 01-01-2023 take 1 tablet by mouth three times daily magnesium oxide (MAG-OX) 400 mg (241.3 mg magnesium) tablet Take 1 tablet by mouth three times a day. 0 01/01/2023 Active Comment on above: Take 1 tablet by haresh th three times a day. 24 hr metoprolol succinate 50 mg extended release oral tablet (16 sources) beta-Adrenergic Cesar Start: 09-04-2022 take 1 tablet by mouth every twelve hours metoprolol succinate ER (TOPROL XL) 50 mg 24 hr tablet Take 1 tablet by mouth every 12 hours. 0 09/04/2022 Active Comment on above: Take 1 tablet by haresh th every 12 hours. 24 hr nicotine 0.875 mg/hr transdermal system (2 sources) Cholinergic Nicotinic Agonist Start: 02-23-2023 nicotine (NICODERM) 21 mg/24 hr pantoprazole 40 mg delayed release oral tablet (2 sources) Proton Pump Inhibitor Start: 12-04-2022 take 1 tablet by mouth once daily pantoprazole DR (PROTONIX) 40 mg tablet Take 40 mg by mouth once daily. 0 12/04/2022 Active Comment on above: Take 40 mg by mouth once daily. potassium chloride 10 meq oral tablet (2 sources) Start: 12-04-2022 take 10 mEq by mouth once daily potassium chloride (KLOR-CON M10 ORAL) Take 10 mEq by mouth once daily. 0 12/04/2022 Active Comment on above: Take 10 mEq by mouth once daily. THIAMINE HCL, VITAMIN B1, ORAL (2 sources) Start: 05-24-2019 THIAMINE HCL, VITAMIN B1, ORAL Daily 0 05/24/2019 Active Comment on above: Daily Completed/Discontinued Medications Medication Drug Class(es) Dates Sig (Normalized) Sig (Original) B-complex with vitamin C (VITAMIN B COMPLEX-C ORAL) (1 source) End: 04-18-2023 B-complex with vitamin C (VITAMIN B COMPLEX-C ORAL) Take by mouth. 0 04/18/2023 Discontinued (Other) Comment on above: Take by mouth. iv contrast (will be provided with radiology test) (2 sources) Start: 03-11-2023 End: 03-12-2023 iv contrast (will be provided with radiology test) Indications: Neoplasm of lung CT Chest W -Inject, intravenously, once for 1 dose.No IV access, insert saline lock prior to the beginning of sedation, infusion, injection of imaging exam. Discontinue saline lock post exam. If Pt. has a central line or IVAD, may access for administration according to line specific nursing protocol. Once exam is complete flush line and de-access according to line specific nursing protocol in the CT contrast administration guidelines link. 1 Each 0 03/11/2023 03/12/2023 Start: 01-05-2023 End: 01-06-2023 iv contrast (will be provide d with radiology test) CT Chest W -Inject, intravenously, once for 1 dose.No IV access, insert saline lock prior to the beginning of sedation, infusion, injection of imaging exam. Discontinue saline lock post exam. If Pt. has a central line or IVAD, may access for administration according to line specific nursing protocol. Once exam is complete flush line and de-access according to line specific nursing protocol in the CT contrast administration guidelines link. 1 Each 0 01/05/2023 01/06/2023 Active Comment on above: CT Chest W -Inject, intravenously, once for 1 dose.No IV access, insert saline lock prior to the beginning of sedation, infusion, injection of imaging exam. Discontinue saline lock post exam. If Pt. has a central line or IVAD, may access for administration according to line specific nursing protocol. Once exam is complete flush line and de-access according to line specific nursing protocol in the CT contrast administration guidelines link. Problems Active Problems Problem Classification Problem Date Documented Da te Episodic/Chronic Alcohol-related disorders (1 source) Alcohol dependence, uncomplicated; Translations: [ALCOHOL DEPENDENCE UNCOMPLICATED] Onset: 06-23-2021 Chronic Cancer of bronchus; lung (10 sources) Malignant neoplasm of unspecified part of left bronchus or lung; Translations: [Malignant tumor of lung] Onset: 08-19-2022 Chronic Cancer of bronchus; lung (1 source) History of malignant neoplasm of thoracic cavity structure; Translations: [Personal history of other malignant neoplasm of bronchus and lung] 12-23-2022 Episodic E Codes: Natural/environment (1 source) Other and unspecified overexertion or strenuous movements or postures, initial encounter; Translations: [OTH AND UNS OVREXRT/STRN MVMT/POS INT] Onset: 03-24-2022 Episodic Essential hypertension (4 sources) Essential (primary) hypertension; Translations: [ESSENTIAL PRIMARY HYPERTENSION] Onset: 06-18-2021 Chronic Fracture of lower limb (8 sources) Displaced fracture of second metatarsal bone, right foot, subsequent encounter for fracture with routine healing; Translations: [Displaced fracture of third metatarsal bone, right foot, subsequent encounter for fracture with routine healing] Onset: 03-24-2022 Episodic Neoplasms of unspecified nature or uncertain behavior (1 source) Neoplasm of lung ; Translations: [Neoplasm of unspecified behavior of respiratory system] 03-11-2023 Episodic Other aftercare (1 source) Other intermodal customer service (current) drug therapy; Translations: [OTH AMUSEMENT [employer] ENTERTAINER CURRENT DRUG THERAPY] Onset: 03-24-2022 Episodic Other connective tissue disease (4 sources) Pain in right foot; Translations: [PAIN IN RIGHT FOOT] Onset: 05-26-2022 Episodic Other lower respiratory disease (2 sources) Solitary pulmonary nodule; Translations: [Solitary pulmonary nodule] Onset: 08-18-2022 Episodic Residual codes; unclassified (2 sources) Tobacco use; Translations: [Tobacco use] Onset: 08-19-2022 Episodic Substance-related disorders (1 source) Nicotine dependence, cigarettes, uncomplicated; Translations: [NICOTINE DEPEND CIGARETTES UNCOMP] Onset: 03-24-2022 Chronic Past or Other Problems Problem Classification Problem Date Documented Da te Episodic/Chronic Fluid and electrolyte disorders (1 source) Hypo-osmolality and hyponatremia; Translations: [HYPO-OSMOLALITY AND HYPONATREMIA] Onset: 06-23-2021 Episodic Malaise and fatigue (3 sources) Weakness; Translations: [WEAKNESS] Onset: 06-19-2021 Episodic Other lower respiratory disease (1 source) Shortness of breath; Translations: [SOB (shortness of breath)] Onset: 12-09-2022 Episodic Other nervous system disorders (1 source) Tremor, unspecified; Translations: [TREMOR UNSPECIFIED] Onset: 06-23-2021 Episodic Results Test Name Value Interpretation Reference Range Facility [facility] 06-16-2023 CNPN Telephone (RADTSA) JARET GRAJEDA ([id number]) 1960 M Date Time Provider Department 06/16/23 DON MEJIA During your visit today, we recorded the following information about you: Cathy Jovel RN 06/16/2023 11:48 AM Signed Call placed to patient due to him cancelling CT that was to be done prior to follow up for Tuesday. CAlled to check status and LM requesting pt CB to reschedule all appts. CE Charles Tiffany 06/17/2023 9:53 AM Signed I also called patient no answer to check on appointments. Purnima Hayes 06/20/2023 8:27 AM Signed Patient is r/s for both appts Allergies As of Date: 06/16/2023 (Not on File) Date Reviewed: 02/28/2023 Reviewed by: Cathy Jovel RN - Fully Assessed Reason for Visit: Future Appointment [256] Prescriptions as of 06/23/2023 - calcium carbonate (CALCIUM 500 ORAL) Take by mouth. - pantoprazole DR (PROTONIX) 40 mg tablet Take 40 mg by mouth once daily. - potassium chloride (KLOR-CON M10 ORAL) Take 10 mEq by mouth once daily. - THIAMINE HCL, VITAMIN B1, ORAL Daily - folic acid 1 mg tablet Take 1 mg by mouth once daily. - magnesium oxide (MAG-OX) 400 mg (241.3 mg magnesium) tablet Take 1 tablet by mouth three times a day. - nicotine (NICODERM) 21 mg/24 hr - metoprolol succinate ER (TOPROL XL) 50 mg 24 hr tablet Take 1 tablet by mouth every 12 hours. Problem List As Of Date: 06/16/2023 (None) Encounter Status:Closed by CATHY JOVEL on 06/23/23 Normal [facility] CNOVon 04-08-2023 CNOV Office Visit (RADTSA ) JARET GRAJEDA ([id number]) 1960 M Date Time Provider Department 04/08/23 10:30 AM DON MEJIA During your visit today, we recorded the following information about you: Temperature Pulse Respiration Blood pressure 97.2 degrees 69/minute 18/minute 164/93 Weight 71.8 kg Don Mejia MD 04/19/2023 6:01 AM Addendum Radiation Oncology - Follow Up Note PATIENT NAME: Jaret Grajeda PATIENT DIAGNOSIS/PATIENT IDENTIFICATION: Mr. Grajeda is a 62-year-old gentleman diagnosed with a Stage IB, [id number], non-small cell lung cancer (adenocarcinoma) arising from the left upper lobe of the lung status post biopsy on 08/03/2022 and under the care of Dr. Garber. Staging work-up has included PET/CT from 08/27/2022 confirming hypermetabolic activity in the left upper lobe lung mass with no other concerns for regional or distant disease. He also had pathologic staging of the mediastinum on 09/06/2022 which was negative at stations 2L and 7. He was initially seen in consultation on 09/27/2022 to discuss SBRT as definitive nonoperative management of his early stage lung cancer but was then lost to follow-up after meeting with thoracic surgery and being worked up for potential surgical resection. He returned to the radiation medicine clinic wishing to pursue SBRT for his early stage lung cancer. Repeat PET/CT from 01/24/2023 confirms hypermetabolic activity in the 3.1 cm left upper lobe lung mass with no other definite evidence of regional or distant disease. He completed a course of SBRT to the left upper lobe lung lesion on 03/07/2023 (5000 cGy delivered in 4 fractions). Mr. Grajeda returns to clinic today for routine follow-up approximately one month after the completion of his radiation treatments. In the interim, he reports no significant changes in his breathing as he continues to note dyspnea on exertion which is unchanged and feels that his cough is improved. Denies any hemoptysis or chest pain or difficulty swallowing or skin irritation of the treatment area. He has started using nicotine patches which she feels is helping him reduce his tobacco use where he is now down to half a pack per day. He does endorse fatigue which is stable with good appetite and hydration and stable weight. Mr. Grajeda is stable clinically approximately month out from the completion of his SBRT treatments to the left chest with no significant toxicity at this time. I will plan to see him back after his initial posttreatment imaging with CT chest in approximately 2 months. He will follow with Dr. Garber as scheduled. The patient is aware to contact the clinic in the interim should any questions or concerns arise. Thank you for allowing us to participate in the care of this patient. Signed by: Don Mejia MD This document has been created with the use of voice recognition technology. It may contain inaccuracies, misspellings, inaccurate syntax or inappropriate word context that are a result of the inadequacies/shortcom ings of said technology/software. Referring Provider: SELF [[id number]] Allergies As of Date: 04/08/2023 (Not on File) Date Reviewed: 02/28/2023 Reviewed by: Cathy Jovel RN - Fully Assessed Reason for Visit: Lung Cancer [562] Primary Visit Diagnosis: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) [C34.12] Prescriptions as of 04/19/2023 - calcium carbonate (CALCIUM 500 ORAL) Take by mouth. - pantoprazole DR (PROTONIX) 40 mg tablet Take 40 mg by mouth once daily. - potassium chloride (KLOR-CON M10 ORAL) Take 10 mEq by mouth once daily. - THIAMINE HCL, VITAMIN B1, ORAL Daily - folic acid 1 mg tablet Take 1 mg by mouth once daily. - magnesium oxide (MAG-OX) 400 mg (241.3 mg magnesium) tablet Take 1 tablet by mouth three times a day. - nicotine (NICODERM) 21 mg/24 hr - metoprolol succinate ER (TOPROL XL) 50 mg 24 hr tablet Take 1 tablet by mouth every 12 hours. Problem List As Of Date: 04/08/2023 (None) Medications Discontinued During This Encounter Prescriptions - B-complex with vitamin C (VITAMIN B COMPLEX-C ORAL) (Discontinued) Reported on 04/08/2023 Encounter Status:Closed by DON MEJIA on 04/18/23 [facility] JARET GRAJEDA ([id number]) 1960 M Date Time Provider Department 03/24/23 DON MEJIA During your visit today, we recorded the following information about you: Cathy Jovel RN 03/24/2023 10:40 AM Signed Call placed to pt to check status. He states he is doing very well. His breathing has maintained it's baseline and he denies any new issues. His energy levels are at his normal. Pt is scheduled for follow up on 04/[address]/FU in June. Cathy Jovel RN Allergies As of Date: 03/24/2023 (No Known Allergies) Date Reviewed: 02/28/2023 Reviewed by: Cathy Jovel RN - Fully Assessed Reason for Visit: Patient Update [1234] Cmt: Post Radiation Treatment Nurse Call Prescriptions as of 03/28/2023 - metoprolol succinate ER (TOPROL XL) 50 mg 24 hr tablet Take 1 tablet by mouth every 12 hours. Problem List As Of Date: 03/24/2023 (None) Encounter Status:Closed by CATHY JOVEL on 03/28/23 [facility] 03-11-2023 [facility] Telephone ([employer]) JARET GRAJEDA ([id number]) 1960 M Date Time Provider Department 03/11/23 ROBERTODON During your visit today, we recorded the following information about you: Lili Martinez LPN 03/11/2023 9:[address] chest due in 3 months is pending your approval. CE Gao Tiffany 03/14/2023 7:45 AM Signed Patient is scheduled Allergies As of Date: 03/11/2023 (No Known Allergies) Date Reviewed: 02/28/2023 Reviewed by: Cathy Jovel RN - Fully Assessed Reason for Visit: Orders [681] Primary Visit Diagnosis:Neoplasm of lung [D49.1] Order(s):CT CHEST W IVCON [[id number]] Order #: [id number] FUTURE [] iv contrast (will be provided with radiology test)CT Chest W -Inject, intravenously, once for 1 dose.No IV access, insert saline lock prior to the beginning of sedation, infusion, injection of imaging exam. Discontinue saline lock post exam. If Pt. has a central line or IVAD, may access for administration according to line specific nursing protocol. Once exam is complete flush line and de-access according to line specific nursing protocol in the CT contrast administration guidelines link.Disp: 1 EachRfl: 0 CREATININE BLD [SQCRET] Order #: [id number] FUTURE Prescriptions as of 03/14/2023 - metoprolol succinate ER (TOPROL XL) 50 mg 24 hr tablet Take 1 tablet by mouth every 12 hours. Problem List As Of Date: 03/11/2023 (None) Prescriptions ordered this encounter Disp Refills Start End IV CONTRAST (RADIOLOGY PROCEDURE) 1 Ea* 0 03/11/2023 03/12/2023 Class: In Office Sig: CT Chest W -Inject, intravenously, once for 1 dose.No IV access, insert saline lock prior to the beginning of sedation, infusion, injection of imaging exam. Discontinue saline lock post exam. If Pt. has a central line or IVAD, may access for administration according to line specific nursing protocol. Once exam is complete flush line and de-access according to line specific nursing protocol in the CT contrast administration guidelines link. Encounter Status:Closed by LILI MARTINEZ on 03/14/23 [facility] CNOVon 02-28-2023 CNOV Office Visit (RADTSA ) JARET GRAJEDA ([id number]) 1960 M Date Time Provider Department 02/28/23 2:15 PM DON MEJIA During your visit today, we recorded the following information about you: Temperature Pulse Respiration Blood pressure 97.7 degrees 61/minute 22/minute 175/97 Weight 75.5 kg Don Mejia MD 03/03/2023 6:54 AM Signed Radiation Oncology - On Treatment Review (OTR) Note PATIENT NAME: Jaret Grajeda PATIENT DIAGNOSIS: Mr. Grajeda is a 62-year-old gentleman diagnosed with a Stage IB, [id number], non-small cell lung cancer (adenocarcinoma) arising from the left upper lobe of the lung status post biopsy on 08/03/2022 and under the care of Dr. Garber. Staging work-up has included PET/CT from 08/27/2022 confirming hypermetabolic activity in the left upper lobe lung mass with no other concerns for regional or distant disease. He also had pathologic staging of the mediastinum on 09/06/2022 which was negative at stations 2L and 7. He was initially seen in consultation on 09/27/2022 to discuss SBRT as definitive nonoperative management of his early stage lung cancer but was then lost to follow-up after meeting with thoracic surgery and being worked up for potential surgical resection. He returned to the radiation medicine clinic wishing to pursue SBRT for his early stage lung cancer. Repeat PET/CT from 01/24/2023 confirms hypermetabolic activity in the 3.1 cm left upper lobe lung mass with no other definite evidence of of regional or distant disease. PROTOCOL: no COURSE: definitive Current dose: 1250 cGy in 1 fx Planned dose: 5000 cGy in 4 fx SUBJECTIVE: Tolerated first fraction of XRT well and reports no significant changes in the time of simulation. He continues to have shortness of breath related to his COPD with cough which is unchanged. PHYSICAL EXAM: Area Assessed: Chest KPS: 70 General Appearance: Alert and oriented. No acute distress. Chest: No respiratory distress. IMAGING/LAB RESULTS: None TOXICITY ASSESSMENT (CTC v4.0): Fatigue: grade 1 - Fatigue relieved by rest Weight loss: grade 0 - No weight loss Nausea:Grade 0 - No Symptoms Radiation Dermatitis:grade 0 - No symptoms Dysphagia: grade 0 - No symptoms Esophageal Pain: Grade 0 - No symptoms Dyspnea: grade 1 (Shortness of breath with moderate exertion) Treatment chart checked: Yes Patient treatment site reviewed and verified:Yes Port films reviewed and current:Yes Medications started: None ASSESSMENT/PLAN: Clinically stable. No signs of toxicity. Continue radiation treatment as planned. We reviewed general precautions/instructi ons during SBRT treatment to the chest as well as the potential acute toxicities during treatment and their time course. Discussed the importance of a well-balanced diet, hydration, and exercise/activity as tolerated through the course of treatment. Don Mejia MD Allergies As of Date: 02/28/2023 (No Known Allergies) Date Reviewed: 02/28/2023 Reviewed by: Cathy Jovel, CE - Fully Assessed Reason for Visit: Radiotherapy On-treatment Visit [1722] Primary Visit Diagnosis: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) [C34.12] Prescriptions as of 03/03/2023 - metoprolol succinate ER (TOPROL XL) 50 mg 24 hr tablet Take 1 tablet by mouth every 12 hours. Problem List As Of Date: 02/28/2023 (None) Encounter Status:Closed by DON MEJIA on 03/03/23 [facility] CNOVon 02-11-2023 CNOV Office Visit (RADTSA ) JARET GRAJEDA ([id number]) 1960 M Date Time Provider Department 02/11/23 11:30 AM DON MEJIA During your visit today, we recorded the following information about you: Don Meija MD 02/22/2023 4:26 AM Addendum Radiation Oncology - Follow Up Note PATIENT NAME: Jaret Grajeda PATIENT DIAGNOSIS/PATIENT IDENTIFICATION: Mr. Grajeda is a 62-year-old gentleman diagnosed with Stage IB, [id number], non-small cell lung cancer (adenocarcinoma) arising from the left upper lobe of the lung status post biopsy on 08/03/2022 and under the care of Dr. Garber. Staging work-up has included PET/CT from 08/27/2022 confirming hypermetabolic activity in the left upper lobe lung mass with no other concerns for regional or distant disease. He also had pathologic staging of the mediastinum on 09/06/2022 which was negative at stations 2L and 7. He was referred to the radiation medicine clinic to have a discussion regarding the potential role of stereotactic body radiation therapy in the definitive and nonoperative management of his early stage lung cancer. INTERVAL HISTORY: Mr. Grajeda returns to clinic today for approximately four months after his consultation on 09/27/2022. At that time, he was to be thoracic surgery due to discusses surgical options prior to making a decision on definitive treatment for his lung cancer. He met with Dr. Blue at [facility] and was recommended a cardiac workup which he has been pursuing over the past few months and ultimately decided against surgery. He now returns to the radiation medicine clinic wishing to pursue stereotactic body radiation therapy. PET/CT was repeated on 01/24/2023 which again showed the FDG avid left upper lobe lung mass now measuring 3.1 cm with no apparent hilar or mediastinal hypermetabolic lymphadenopathy. A subcentimeter spiculated nodule was noted in the right apex. No signs of distant disease were identified. The patient continues to smoke and notes dyspnea on exertion with cough and is not currently using supplemental oxygen. ALLERGIES ALLERGIES No Known Allergies MEDICATIONS: Current Outpatient Medications: metoprolol succinate ER (TOPROL XL) 50 mg 24 hr tablet PHYSICAL EXAM: GENERAL: middle-aged gentleman sitting in chair in no acute distress. KPS: 70 HEENT: NC/AT, anicteric sclera HEART: S1S2 LUNGS: non-labored breathing ABDOMEN: soft MUSCULOSKELETAL: no peripheral edema, moves all extremities. NEURO: no focal deficit; AANDO X3. RADIOLOGIC DATA: PET/CT (01/24/2023) IMPRESSION: 1. HEAD and NECK: No evidence of focal uptake to suggest FDG avid neoplastic process.. 2. CHEST: Left upper lobe FDG avid lung mass decreased in metabolic activity as compared to prior outside PET/CT. Spiculated nodule in the right apex with mild activity slightly increased in size. 3. ABDOMEN/PELVIS: No evidence of focal uptake to suggest FDG avid neoplastic process.. 4. EXTREMITIES/SKELETON: No evidence of focal uptake to suggest FDG avid neoplastic process.. Chest: Left upper lobe FDG avid mass has slightly decreased in uptake as compared to prior outside PET now measuring 3.1 x 3.0 cm with SUV max 7.1 previously 3.2 x 2.4 cm with SUV max 16.9. Spiculated nodule in the right apex 0.7 cm with SUV max 1.1 previously 0.9 cm with SUV max 1.2 Coronary artery and major vessel atherosclerotic calcifications noted. No significant anatomical abnormality to the limits of low dose noncontrast CT scan IMPRESSION: Mr. Grajeda is a 62-year-old gentleman diagnosed with a Stage IB, [id number], non-small cell lung cancer (adenocarcinoma) arising from the left upper lobe of the lung status post biopsy on 08/03/2022 and under the care of Dr. Garber. Staging work-up has included PET/CT from 08/27/2022 confirming hypermetabolic activity in the left upper lobe lung mass with no other concerns for regional or distant disease. He also had pathologic staging of the mediastinum on 09/06/2022 which was negative at stations 2L and 7. He was initially seen in consultation on 09/27/2022 to discuss SBRT as definitive nonoperative management of his early stage lung cancer but was then lost to follow-up after meeting with thoracic surgery and being worked up for potential surgical resection. He now returns today to the radiation medicine clinic wishing to pursue SBRT for his early stage lung cancer. Repeat PET/CT from 01/24/2023 confirms hypermetabolic activity in the 3.1 cm left upper lobe lung mass with no other definite evidence of of regional or distant disease. I spent time with the patient in decision making and discussion regarding the indications for, logistics of, and toxicity of SBRT in this definitive setting. Multiple questions were answered as they arose including a discussion of the mechanism of action of radiation therapy as well as potent (more content not included)... Normal [facility] 01-25-2023 [facility] JARET GRAJEDA ([id number]) 1960 Date Time Provider Department 01/25/23 DON MEJIA During your visit today, we recorded the following information about you: Allergies As of Date: 01/25/2023 (No Known Allergies) Date Reviewed: 12/09/2022 Reviewed by: Shilpa Pop, Conference Services Manager - Fully Assessed Prescriptions as of 01/26/2023 - metoprolol succinate ER (TOPROL XL) 50 mg 24 hr tablet Take 1 tablet by mouth every 12 hours. Problem List As Of Date: 01/25/2023 (None) Encounter Status:Closed by PURNIMA HAYES on 01/26/23 [facility] JAR[facility] GRAJED[facility] ([id number]) 1960 Date Time Provider Department 01/25/23 ROBERTO, DON NCCAP During your visit today, we recorded the following information about you: Angela Hayesfany 01/25/2023 12:17 PM Signed Patient is called and scheduled for Followup and SIM next week, I told him I would also send him a reminder as he has a tough time keeping appointments, thank you. Allergies As of Date: 01/25/2023 (No Known Allergies) Date Reviewed: 12/09/2022 Reviewed by: Shilpa Pop, Conference Services Manager - Fully Assessed Reason for Visit: Appointment Confirmation [[id number]] Prescriptions as of 01/26/2023 - metoprolol succinate ER (TOPROL XL) 50 mg 24 hr tablet Take 1 tablet by mouth every 12 hours. Problem List As Of Date: 01/25/2023 (None) Encounter Status:Closed by PURNIMA HAYES on 01/26/23 Normal [facility] CREATININE BLDon 01-24-2023 Creatinine [Mass/Vol] 0.84 mg/dL Normal 0.73-1.22 [facility] Comment on above: Order Comment: Wesley starr Type: BLOOD SPECIMENOrdering Facility: [facility] Address: [address] [place] [address] Performed By: #### C RET1 ####[facility] LABIA [id number] [place] [address] Creatinine and Glomerular filtration rate.predicted panel (S/P/Bld) 97 mL/min/1.73m??? Normal >=60 [facility] Comment on above: Order Comment: Wesley starr Type: BLOOD SPECIMENOrdering Facility: [facility] Address: [address] [place] [address] Result Comment: Racquel mated Glomerular Filtration Rate (eGFR) is calculated using the 2020 CKD-EPI creatinine equation. This equation utilizes serum creatinine, sex, and age as parameters. The creatinine assay has traceable calibration to isotope dilution-mass spectrometry. Refer to KDIGO guidelines for clinical interpretation. In patients with unstable renal function, e.g. those with acute kidney injury, the eGFR may not accurately reflect actual GFR. Performed By: #### C RET1 ####[facility] LABCLIA [id number] [place] [address] CT CHEST W IVCONon 3 CT CHEST W IVCON * * *Final Report* * * DATE OF EXAM: Jan 24 2023 1:35PM [facility] 0539 - CT CHEST W IVCON / PROCEDURE REASON: 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) * * * * Physician Interpretation * * * * RESULT: EXAMINATION: CHEST CT WITH CONTRAST CLINICAL HISTORY: Malignant neoplasm of left upper lobe Technique: Spiral CT acquisition of the chest from the thoracic inlet to the upper abdomen following IV contrast. MQ: [id number]_6 Contrast: 50 mL Omnipaque [address] Radiation dose: Integrated Dose-length product (DLP) for this visit = 439 mGy*cm CT Dose Reduction Employed: Automated exposure control (AEC) Comparison: PET/CT performed 08/27/2022 RESULT: Limitations: None. Lines, tubes, and devices: None. Lung parenchyma and airways: There is mild to moderate centrilobular and paraseptal emphysema, most prominent in the upper lobes. A spiculated left upper lobe mass is again visualized (5:52) now measuring approximately 3.2 x 2.7 cm, previously approximately 2.8 x 2.4 cm. Areas of cavitation are noted inferiorly within the mass. There is also a spiculated right upper lobe nodule (5:33) measuring up to 0.8 cm, previously 0.6-0.7 cm. A stable 0.3 cm nodule is also noted along the periphery of the right middle lobe (5:113). No additional nodular opacities are seen. The central airways are widely patent. Pleural space: No pleural effusion. No pleural thickening. Lower neck, lymph nodes, and mediastinum: The imaged thyroid gland is normal. No lymphadenopathy in the supraclavicular, axillary, mediastinal, or hilar regions. Heart, pericardium, and thoracic vessels: There is ectasia of the descending thoracic aorta measuring up to 3.7 cm. The main pulmonary artery is normal in caliber. The cardiac chambers are normal in size. Coronary artery atherosclerotic calcification is noted. No pericardial effusion or thickening. Bones and soft tissues: No destructive osseous lesions are seen. Superficial soft tissues are unremarkable. Upper abdomen: The liver is diffusely decreased in attenuation, compatible with hepatic steatosis. There is a peripherally enhancing 1.1 cm lesion in the inferior right hepatic lobe (4:232) which is incompletely visualized on the current study. The upper abdomen is otherwise unremarkable. Banquet Supervisor (topogram) images: No additional findings. IMPRESSION: 1. Left upper lobe mass which has slightly increased in size when compared to prior study. 2. Additional spiculated right upper lobe nodule which has also slightly increased in size. 3. No evidence of bulky intrathoracic adenopathy. 4. Incompletely characterized 1.1 cm peripherally enhancing lesion in the inferior right hepatic lobe. Transcribe Date/Time: Jan 25 2023 11:30A Dictated by: NOE BARTLETT MD This examination was interpreted and the report reviewed and electronically signed by: NOE BARTLETT MD on Jan 25 2023 11:55AM EST Thank you for allowing us to participate in the care of your patient. Should there be any questions regarding this interpretation, please call [phone]. If you are unable to reach us at the number above, please feel free to contact [facility]iology at [phone]. [id number] N Normal [facility] NM PET/CT SKULL-THIGH SUBQon 01-24-2023 NM PET/CT SKULL-THIGH SUBQ * * *Final Report* * * DATE OF EXAM: Jan 24 2023 1:37PM NRN 0063 - NM PET/CT SKULL-THIGH SUBQ / PROCEDURE REASON: 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) * * * * Physician Interpretation * * * * RESULT: [REGIONAL] BODY PET-CT SCAN CLINICAL HISTORY: 62 years old Male with 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) . INDICATION: Initial treatment strategy. TECHNIQUE: PET-CT scan: Approximately 60 minutes following the IV administration of 9.0mCi of F-18 FDG), PET and non contrast CT images were acquired from the skull base through proximal thigh. PET images were reconstructed with and without attenuation correction using attenuation coefficients. The blood glucose level before FDG injection is 188 mg/dL CT Radiation dose: Integrated Dose-length product (DLP) for this visit = 439 mGy*cm. CT Dose Reduction Employed: Automatic exposure control used (AED) COMPARISON: FDG PET-CT: 08/27/2022 outside CORRELATION: CT chest 01/24/2023 RESULTS: Liver SUV max 3.7 Mediastinal blood pool SUV max 2.7 Topogram review: Unremarkable, no acute findings. No retained foreign body. Head and Neck: No evidence of focal uptake to suggest FDG avid neoplastic process in the limited scanned region. No FDG avid cervical lymphadenopathy.. No significant anatomical abnormality to the limits of low dose noncontrast CT scan. Chest: Left upper lobe FDG avid mass has slightly decreased in uptake as compared to prior outside PET now measuring 3.1 x 3.0 cm with SUV max 7.1 previously 3.2 x 2.4 cm with SUV max 16.9. Spiculated nodule in the right apex 0.7 cm with SUV max 1.1 previously 0.9 cm with SUV max 1.2 Coronary artery and major vessel atherosclerotic calcifications noted. No significant anatomical abnormality to the limits of low dose noncontrast CT scan. Abdomen and Pelvis: No evidence of focal uptake to suggest FDG avid neoplastic process. No FDG avid mesenteric, retroperitoneal, pelvic, or inguinal lymphadenopathy. No significant anatomical abnormality to the limits of low dose noncontrast CT scan. Extremities/Skeleton: No evidence of focal uptake to suggest FDG avid neoplastic process. No FDG avid osseous lesions. No significant anatomical abnormality to the limits of low dose noncontrast CT scan. IMPRESSION: 1. HEAD and NECK: No evidence of focal uptake to suggest FDG avid neoplastic process.. 2. CHEST: Left upper lobe FDG avid lung mass decreased in metabolic activity as compared to prior outside PET/CT. Spiculated nodule in the right apex with mild activity slightly increased in size. 3. ABDOMEN/PELVIS: No evidence of focal uptake to suggest FDG avid neoplastic process.. 4. EXTREMITIES/SKELETON: No evidence of focal uptake to suggest FDG avid neoplastic process.. Transcribe Date/Time: Jan 25 2023 2:05P Dictated by: SAFIA ALFRED MD This examination was interpreted and the report reviewed and electronically signed by: SAFIA LAFRED MD on Jan 25 2023 2:16PM EST Thank you for allowing us to participate in the care of your patient. Should there be any questions regarding this interpretation, please call [phone]. If you are unable to reach us at the number above, please feel free to contact [facility] at [phone]. [id number] N [facility] 01-13-2023 CNPN Telephone (THORMN) JARET GRAJEDA ([id number]) 1960 M Date Time Provider Department 01/13/23 DELFINA BLUE PARAMJIT During your visit today, we recorded the following information about you: Jeremiah Gibbs 01/13/2023 3:37 PM Signed Received OSH Hem/Onc office notes 01/04/23 fron [facility] Record scanned in Epic Jeremiah Gibbs, warehouse administrator Socrates Pastor RN 01/14/2023 2:29 PM Addendum pt to follow with rad onc, Dr Roberto cruz, see note from local oncology dr GARBER Allergies As of Date: 01/13/2023 (No Known Allergies) Date Reviewed: 12/09/2022 Reviewed by: Shilpa Pop, Conference Services Manager - Fully Assessed Reason for Visit: Received Outside Medical Records [[id number]] Prescriptions as of 01/14/2023 - metoprolol succinate ER (TOPROL XL) 50 mg 24 hr tablet Take 1 tablet by mouth every 12 hours. Problem List As Of Date: 01/13/2023 (None) Encounter Status:Closed by JEREMIAH GIBBS on 01/13/23 [facility] 01-05-2023 CNPN Telephone (NCCAP) JAERT GRAJEDA ([id number]) 1960 M Date Time Provider Department 01/05/23 DON MEJIA During your visit today, we recorded the following information about you: Purnima Hayes 01/05/2023 2:12 PM Signed Called patient to let him know about PET and CT and he also needs a followup with Dr Mejia, no answer left message for him to call me back Purnima Hayes 01/06/2023 10:11 AM Signed Called patient again left message to call me back with appt dates and times Purnima Hayes 01/06/2023 11:48 AM Signed Patient called back is aware of appt date and times Allergies As of Date: 01/05/2023 (No Known Allergies) Date Reviewed: 12/09/2022 Reviewed by: Shilpa Pop, Conference Services Manager - Fully Assessed Reason for Visit: Appointment Confirmation [[id number]] Prescriptions as of 01/06/2023 - iv contrast (will be provided with radiology test) CT Chest W -Inject, intravenously, once for 1 dose.No IV access, insert saline lock prior to the beginning of sedation, infusion, injection of imaging exam. Discontinue saline lock post exam. If Pt. has a central line or IVAD, may access for administration according to line specific nursing protocol. Once exam is complete flush line and de-access according to line specific nursing protocol in the CT contrast administration guidelines link. - metoprolol succinate ER (TOPROL XL) 50 mg 24 hr tablet Take 1 tablet by mouth every 12 hours. Problem List As Of Date: 01/05/2023 (None) Encounter Status:Closed by CATHY JOVEL on 01/06/23 [facility] 12-09-2022 DEYSIN Telephone (PARAMJIT) JARET GRAJEDA ([id number]) 1960 M Date Time Provider Department 12/09/22 DELFINA BLUE During your visit today, we recorded the following information about you: Soledad Dumont 12/09/2022 1:03 PM Signed Confirmed rescheduled date and time of apt w/ patient via phone. Sent via mail. PF Rescheduled from 12/09/2022 in person to 12/23/2022 Provider Phone Call w/ Dr. Blue at the patient's request. Allergies As of Date: 12/09/2022 (No Known Allergies) Date Reviewed: 12/09/2022 Reviewed by: Shilpa Pop, Conference Services Manager - Fully Assessed Reason for Visit: Appointment Rescheduled [1024] Prescriptions as of 12/09/2022 - metoprolol succinate ER (TOPROL XL) 50 mg 24 hr tablet Take 1 tablet by mouth every 12 hours. Problem List As Of Date: 12/09/2022 (None) Encounter Status:Closed by SOLEDAD DUMONT on 12/09/22 Normal [facility] CARDIAC PERF STRESS/PHARM on 12-09-2022 NM CARDIAC PERF STRESS/PHARM * * *Final Report* * * DATE OF EXAM: Dec 09 2022 11:57AM [facility] 0006 - [place] CARDIAC PERF STRESS/PHARM / PROCEDURE REASON: multiple diagnoses * * * * Physician Interpretation * * * * Stress Technical Service Engineer Report: [facility]- Date of service: 12/09/2022 10:08:36 AM Supervising physician: Eagle Patel MD PATIENT: Name: MR. JARET GRAJEDA Age: 62 years Gender: M The supervising physician was in the department and immediately available. * * * Final * * * -------- PATIENT: Name: MR. JARET GRAJEDA Age: 62 years Gender: M CONCLUSIONS: 1. SPECT Perfusion Study: Normal. 2. There is no scintigraphic evidence for inducible ischemia. 3. No evidence of scarred myocardium. 4. Left ventricle is normal in size. The left ventricle systolic function is normal. 5. Right ventricle is normal in size. The right ventricle systolic function is normal. 6. This is a low risk scan. Gated Stress FBP Gated Rest FBP LVEF % 58 52 Prior Study Comparison No prior nuclear cardiology exam available for comparison. Nuclear Med Report:1-Day Gated SPECT Myocardial Perfusion with Regadenoson Stress: Myocardial perfusion imaging was performed at rest 30 minutes following the IV injection of the radiotracer. The patient received 0.4 mg of regadenoson, via rapid IV push, immediately followed by radiotracer IV. Gated post stress tomographic imaging was performed 30 to 60 minutes later. See administered radiotracer and doses below. [place] Date of service: 12/09/2022 10:08:36 AM Ordering Physician: DELFINA BLUE. Requesting Physician: DELFINA BLUE Indication: Preop eval for noncard surg with high risk, poor exercise tolerance Interpreting physician: Eagle Patel MD Height: 173.00 cm BSA: 1.86 m? Weight: 71.67 kg BMI: 23.9 kg/m? Imaging Protocol Limitation Reason G.I. uptake. CT Dose-Length Product(DLP): 20.0 mGy * cm. CT Dose Reduction Employed: Yes. Exam Type: Rest Stress Radiopharm: Tc-99m Tetrofosmin Tc-99m Tetrofosmin Dosage(mCi): 13 31.8 Atten Correction: not performed performed Stress Agent: Regadenoson 0.4mg Supply provided from [facility] Resting Blood Press: 166/98 mmHg Image Quality The overall study imaging quality was deemed to be fair. The following technical issues were noted: G.I. uptake. FINDINGS: Left Ventricle Wall Motion: Stress IR:3D - All segments are normal. Rest IR:3D:SC - Gated Stress FBP - Reversibility - Gated Rest FBP - Stress IR:3D Gated Stress FBP Gated Rest FBP LVEF: 58 % 52 % ED Volume: 119 ml 111 ml ES Volume: 50 ml 53 ml Perfusion Findings Stress IR:3D - Summed Score=0 All segments demonstrate normal perfusion. Rest IR:3D:SC - Summed Score=0 All segments demonstrate normal perfusion. Stress IR:3D Rest IR:3D:SC Summed Score=0 Summed Score=0 LEFT VENTRICLE The left ventricle is normal in size. Left ventricular systolic function is normal. Right Ventricle The right ventricle is normal in size. Right ventricle systolic function is normal. Stress Test Findings: There is no scintigraphic evidence for inducible ischemia. There is no evidence of scarring. * * * Final * * * -------- NM CTAC Report: [facility] Date of service: 12/09/2022 10:08:36 AM CTAC interpreting physician: Eagle Patel MD PATIENT: Name: MR. JARET GRAJEDA Age: 62 years Gender: M 1. Incidental Findings from limited non-diagnostic CTAC: - Coronary calcifications visualized. * * * Final * * * -------- Stress ECG Report: [place] [id number] Date of service: 12/09/2022 10:08:36 AM Ordering physician: DELFINA BLUE funding specialist: Shilpa Pop Supervisor Feed House: Elida Mckeon Interpreting physician: Eagle Patel MD Patient name: MR. JARET GRAJEDA Age: 62 years Gender: M Height: 173.00 cm BSA: 1.86 m? Weight: 71.67 kg BMI: 23.9 kg/m? Indication: Dyspnea on exertion and Encounter for screening for cardiovascular disorders Stress ECG Conclusion: Conclusion: Normal Stress ECG Summary: The patient's resting heart rate was 63 bpm and blood pressure was 166/98 mmHg. The test was terminated due to end of protocol. No symptoms provoked during stress. The maximum heart rate was 78 bpm, which is 50% of the predicted heart rate for age. Peak blood pressure was 148/86 mmHg. The double product achieved was [address]. Medications: Last Used METOPROLOL 7 Hours Resting ECG: Normal Sinus Rhythm Symptoms at rest: No symptoms Pharamco (more content not included)... Normal [facility] CNPNon 10-18-2022 CNPN Telephone (RADTSA) JARET GRAJEDA ([id number]) 1960 M Date Time Provider Department 10/18/22 ODN MEJIA During your visit today, we recorded the following information about you: Cathy Jovel RN 10/18/2022 12:39 PM Signed Spoke to pt and he is waiting for appts to be set up locally for cardiac clearance by Dr Blue's office. Tiff- Sim can be cancelled for today. We will keep an eye on surgical plan and reschedule SIM when we know plan. Pt is aware and in agreement with waiting to reschedule. CE Charles Saju, MD 10/18/2022 12:40 PM Signed Thanks! Purnima García 10/18/2022 12:57 PM Signed Cxed appointment let me know when I need to r/s thanks Cathy Jovel RN 10/25/2022 1:50 PM Signed Call placed to pt to verify status. He states that stress test has not been scheduled yet. He needs to contact his Dr office to get this arranged. Pt states he plans to call tomorrow to get this scheduled. CE Charles Angela, CE 11/01/2022 2:46 PM Signed Call again placed to pt to get update. Voicemail was left requesting pt to call with update. Dr Blue/Team- is there any update from your team regarding the scheduling of patient's stress test/cardiac clearance? Thank you! CE Charles Angela, CE 11/24/2022 1:33 PM Signed Update- pt rescheduled stress test and is now scheduled for this and appt with Dr Blue on 12/09. CE Charles Saju, MD 11/24/2022 5:45 PM Signed Thanks for the update - please let Dr. Garber's office know as well. Don Allergies As of Date: 10/18/2022 (No Known Allergies) Date Reviewed: 10/14/2022 Reviewed by: Armando Fam MA - Fully Assessed Reason for Visit: Future Appointment [256] Prescriptions as of 12/28/2022 - metoprolol succinate ER (TOPROL XL) 50 mg 24 hr tablet Take 1 tablet by mouth every 12 hours. Problem List As Of Date: 10/18/2022 (None) Encounter Status:Closed by CATHY JOVEL on 12/28/22 Normal [facility] CNOVon 10-14-2022 CNOV Office Visit (THORMN ) JARET GRAJEDA ([id number]) 1960 M Date Time Provider Department 10/14/22 3:40 PM DELFINA BLUE During your visit today, we recorded the following information about you: Temperature Pulse Respiration Blood pressure 97.5 degrees 117/minute 14/minute 180/110 Weight Height 73.5 kg 1.73 m Delfina Blue MD, PhD 10/15/2022 8:39 AM Unsigned [employer] [place] [id number] [place] DEPARTMENT OF THORACIC AND CARDIOVASCULAR SURGERY NAME: NICCI, JARET CLINIC #: [id number] DATE: 10/14/2022 AGE: 62 PHYSICIAN: Delfina Blue M.D., Ph.D. I had the sincere pleasure of seeing the patient in my Thoracic Surgery Clinic. This very engaging 61-year-old man was seen today for an opinion regarding a newly diagnosed left upper lobe non-small cell lung cancer. He is still an active smoker, has an extensive tobacco use history, which is in excess of 50 pack year. The patient was recently hospitalized for dehydration and depression after family member . During this time, the patient recovered from this process, but a CT scan was performed and an incidental left upper lobe lesion was identified. Subsequent workup suggests non-small cell lung cancer. The patient has been referred to me for my thoughts regarding treatment options. The patient has also seen the Radiation Oncology team. The patient because of his long-time smoking status is fairly debilitated. He has a shuffling gait. When seen, he seems somewhat anxious. He walked only 850 feet at 1.6 miles an hour and had mild dyspnea. He did not desaturate. The patient had pulmonary function, which suggest mild obstructive physiology and moderately depressed gas exchange. The patient does have a tremor that is evident. The lesion itself is spiculated and a PET scan, which I have independently reviewed demonstrates profound FDG avidity within the lesion. The lesion is quite peripheral and up against the chest wall and what I suspect is rib 3 on the left side. It is in the upper division of the left upper lobe. IMPRESSION: Fairly good size lesion in the upper division of the left upper lobe, which is quite peripheral and housed within the upper division. There is no evidence of mediastinal spread and the lesion is on the border of being a clinical stage IA versus 1B as this may be a T1c or T2a primary lesion based on size and if there would be visceral pleural involvement. The patient is a marginal surgical candidate. He will try to separate from tobacco and I will move to a provocative heart study. Once these tasks are complete, I will have a better sense whether surgery could be offered and if so, then I would give the option to the patient of surgery or stereotactic radiation therapy. I could support both and the patient understands the risks and benefits of either. I look forward to participating in this gentleman's care and organizing a treatment plan for him in the very near future. Delfina Blue M.D., Ph.D. :[id number] /[id number] Fernando Noel MD 10/15/2022 4:54 PM Signed [facility] THORAC[facility] SURGERY OUTPATIENT CONSULT NOTE Jaret Grajeda [id number] Requesting Provider: Wade Jones Thoracic Physician: Delfina Blue MD Chief Complaint: lung cancer Impression: Jaret Grajeda is a 62 yoM current heavy 45PYS with newly diagnosed [id number] TRISTEN adenoCA. EBUS with negative level 7 and nonDx level 2 nodes. Saw rad onc who indicated that radiotherapy is an option; here for discussion of surgical options. PFTs likely adequate for lobectomy but 6 min walk test significantly less than predicted and functional limitations with KILLIAN. Plan: - Obtain stress echo - Surgery vs radiation pending results of echo and pt preference HPI: Jaret Grajeda is a 62 year old White male current heavy 45PYS with PMH HTN here for an opinion regarding management of newly diagnosed TRISTEN adenoCA. Presented to hospital with dehydration and found on imaging to have a TRISTEN nodule, PET-avid to SUV 17, measuring between 2.8 and 3.1cm without mediastinal LAD. Underwent EBUS, primary +adenoCA with negative level 7 and nonDx level 2 nodes. Saw rad onc who indicated that radiotherapy is an option; here for discussion of surgical options. Function testing today showing FEV1 72 DLCO (uncorr) 68. 6 min walk 850ft without desat, but does note only being able to walk 1 block without stopping to catch his breath. Continues to smoke 1 ppd. ECOG Score: 1 Living arrangement: Lives with family/friend Functional status: Independent Unintentional weight loss over last 3 months: No PAST MEDICAL HISTORY: PAST MEDICAL HISTORY Diagnosis Date HTN (hypertension) PAST SURGICAL HISTORY: PAST SURGICAL HISTORY Procedure Laterality Date A (more content not included)... Normal [facility] SIX MINUTE WALKon 10-14-2022 [facility] CNOVon 09-27-2022 CNOV Office Visit (RADTSA ) JARET GRAJEDA ([id number]) 1960 M Date Time Provider Department 09/27/22 9:00 AM DON MEJIA RADTSA During your visit today, we recorded the following information about you: Temperature Pulse Respiration Blood pressure 97.4 degrees 78/minute 18/minute 194/118 Weight Height 74.2 kg 1.753 m Don Mejia MD 10/06/2022 6:08 AM Addendum Radiation Oncology - New Patient/Consult Note PATIENT NAME: Jaret Grajeda PATIENT REQUESTING PHYSICIAN: Jennifer Garber MD DIAGNOSIS: Stage IB, [id number], non-small cell lung cancer (adenocarcinoma) arising from the left upper lobe of the lung. PATIENT IDENTIFICATION: This patient was seen in the Department of Radiation Oncology at the [facility] with Don Mejia MD. He was accompanied today by his family. Final recommendations will be communicated back to the requesting physician by way of the shared medical record, or letter to requesting physician via US mail. HISTORY OF PRESENT ILLNESS: Mr. Grajeda is a 62-year-old gentleman from [place], [place] and heavy tobacco user who was recently admitted at the hospital with generalized weakness and failure to thrive. Chest x-ray noted a left upper lobe lung mass and subsequent CT of the chest from 07/27/2022 described a 3.1 cm mass within the left upper lobe of the lung concerning for malignancy with no additional nodules or mediastinal/hilar lymphadenopathy appreciated. Was discharged and underwent an IR guided biopsy of the left upper lobe lung mass on 08/03/2022 which was consistent with moderately differentiated invasive adenocarcinoma consistent with lung primary. He met with Dr. Garber for further evaluation and treatment recommendations. This included PET/CT from 08/27/2022 which confirmed hypermetabolic activity in the left upper lobe lung mass with no FDG avidity in the mediastinum/hilum or distantly concerning for metastatic disease. He also underwent a bronchoscopy/EBUS on 09/06/2022 for pathologic staging of the mediastinum which was negative at station 2L and 7. He is referred today to the radiation medicine clinic to have a discussion regarding the potential role of stereotactic body radiation therapy in the definitive and nonoperative management of his early stage lung cancer. He is also scheduled to meet with Dr. Blue on 10/14/2022 to discuss his surgical treatment options. INTERVAL/HISTORY/REVI EW OF SYSTEMS: Patient denies any previous diagnosis of COPD or emphysema and reports dyspnea on exertion which has slightly worsened recently with a persistent cough which is unchanged. He denies any substantial change in his breathing recently. He denies any hemoptysis or chest pain or difficulty swallowing. He does note substantial weight loss and poor appetite over the past several months but feels that this has leveled off at this point. He continues to smoke 1 pack/day. He is chronic joint pains but otherwise denies any recent fevers/chills, new headaches, difficulty with speech/swallowing, chest pain/palpitations, abdominal pain, nausea/vomiting, change in bowel/urinary function, difficulty with gait/balance. The remainder of the review of systems was performed and was otherwise non-contributory except as described above. PAST MEDICAL HISTORY: PAST MEDICAL HISTORY Diagnosis Date HTN (hypertension) PAST SURGICAL HISTORY: PAST SURGICAL HISTORY Procedure Laterality Date APPENDECTOMY TONSILLECTOMY AND ADENOIDECTOMY FAMILY HISTORY: FAMILY HISTORY Problem Relation Age of Onset Breast Cancer Mother SOCIAL HISTORY: Mr. Grajeda is , has 1 child, and lives in the [place], [place] area. 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 He reports an approximate 82-[id number]-[id number] history of smoking and currently smokes a pack per day. He also reports consuming 5-6 beers a day. RADIATION HISTORY: The patient denies any history of therapeutic radiation. ALLERGIES: ALLERGIES No Known Allergies MEDICATIONS: Current Outpatient Medications: metoprolol succinate ER (TOPROL XL) 50 mg 24 hr tablet PHYSICAL EXAMINATION: GENERAL: Middle-aged gentleman sitting in chair, in no acute distress. VITALS: BP 194/118[repeat 197/108[ Pulse 78 Temp 97.4 Resp 18 Ht 5' 9 (1.75m) Wt 163 lb 9.6 oz (74.2kg) SpO2 98% BMI 24.15 kg/(m2). KPS: 80 HEENT: NC/AT, anicteric sclera HEART: S1S2 LUNGS: non-labored breathing ABDOMEN: soft MUSCULOSKELETAL: no peripheral edema, moves all extremities. NEURO: no focal deficit; AANDO X3. DIAGNOSTIC DATA: PFTs (08/26/2022) PATHOLOGIC DATA: 09/06/2022 Final Diagnosis A. Lymph node, 2L, fine needle aspiration: - Non-diagnostic due to scant cellularity - No cellular evidence of lymph node B. Lymph node, station 7, fine needle aspiration: - Negative for malignanc (more content not included)... [facility] 09-27-2022 CNPN Telephone (NCCAP) JARET GRAJEDA ([id number]) 1960 M Date Time Provider Department 09/27/22 [facility] During your visit today, we recorded the following information about you: Purnima Hayes 09/27/2022 12:30 PM Signed Philipp Villegas an appointment with Dr Blue on 10/05 he will not take appointment he stated that he has someone taking him on the and discussed with him daughter they would like to keep appt as scheduled. Don Mejia MD 09/27/2022 12:42 PM Signed Thanks for tristen - Don Allergies As of Date: 09/27/2022 (No Known Allergies) Date Reviewed: 09/27/2022 Reviewed by: Lili Martinez LPN - Fully Assessed Reason for Visit: FYI-No Action Needed [265] Prescriptions as of 09/27/2022 - metoprolol succinate ER (TOPROL XL) 50 mg 24 hr tablet Take 1 tablet by mouth every 12 hours. Problem List As Of Date: 09/27/2022 (None) Encounter Status:Closed by PURNIMA HAYES on 09/27/22 [facility] 09-17-2022 CNPN Telephone (RADTSA) JARET GRAJEDA ([id number]) 1960 M Date Time Provider Department 09/17/22 DON MEJIA During your visit today, we recorded the following information about you: Lili Martinez LPN 09/17/2022 9:29 AM Signed I attempted to call Jaret regarding his missed appt for consult today but there was no answer. Today is the / time he has no showed for his consult with Dr. Mejia. I notified Shilpa with Dr. Garber's office of the above. I also notified her that Jaret is scheduled for PFT's and a consult with Dr. Blue on 10/14/22 but I'm not sure who made the referral. The appt was scheduled 09/16/22. She said she attempted to call him the last time we notified her of his missed appt but there was no answer. She said Jaret has an appt with Dr. Garber next week. MAURI Gao Saju, MD 09/17/2022 9:35 AM Signed Referral was made by Dr. Garber and is important to keep. According to the chart he was also supposed to follow-up with Dr. Candelaria in [place] for bronchoscopy/EBUS for pathologic staging of his mediastinum which will be important for treatment decision-making. Thanks! Lili Brady LPN 09/17/2022 1:28 PM Signed 09/06/22 EBUS results are available in Care Everywhere. Thanks MAURI Gao Tiffany 09/21/2022 3:00 PM Signed Called patient again to schedule tiffany no answer Purnima Hayes 09/21/2022 3:12 PM Signed Patient called back he is scheduled for Tuesday per his request. Allergies As of Date: 09/17/2022 (Not on File) Date Reviewed: Never Reviewed Reason for Visit: Appointment [186] Problem List As Of Date: 09/17/2022 (None) Encounter Status:Closed by LILI MARTINEZ on 09/23/22 [facility]isa 09-16-2022 DEYSIN Telephone ([facility]) JARET GRAJEDA ([id number]) 1960 M Date Time Provider Department 09/16/22 DELFINA BLUE During your visit today, we recorded the following information about you: Soledad Dumont 09/16/2022 2:18 PM Signed Left date and time of apt for patient. Sent via [employer] - [id number]. Th, 10/14/2022 at [place] [facility] at 12:30pm/1pm/1:15pm Th, 10/14/2022 at [facility] Consult w/ Dr. Blue at 3:40pm Allergies As of Date: 09/16/2022 (Not on File) Date Reviewed: Never Reviewed Reason for Visit: Appointment Confirmation [[id number]] Problem List As Of Date: 09/16/2022 (None) Encounter Status:Closed by SOLEDAD DUMONT on 09/16/22 [facility] 09-09-2022 CNPN Telephone (RADTSA) JARET GRAJEDA ([id number]) 1960 M Date Time Provider Department 09/09/22 DON MEJIA During your visit today, we recorded the following information about you: Lili Martinez LPN 09/09/2022 9:51 AM Signed I left a message for Jaret to call the office conner regarding his missed appointment for consult with Dr. Mejia today. This is twice that he's no showed to the scheduled consult. I notified Shilpa with Dr. Garber's office of the above as well. Lili Martinez LPN Allergies As of Date: 09/09/2022 (Not on File) Date Reviewed: Never Reviewed Reason for Visit: Appointment [186] Problem List As Of Date: 09/09/2022 (None) Encounter Status:Closed by LILI MARTINEZ on 09/13/22 Normal [facility] HPon 09-06-2022 HP - Attestation signed by Chinyere Candelaria MD at 09/06/2022 12:24 PM Re-explained the procedure to the patient along with the associated risk of pneumothorax, bleeding, hypoxia, and respiratory failure. Patient is agreeable and will proceed with the scheduled bronchoscopy and EBUS TBNA Chinyere Candelaria MD Interventional Pulmonary Medicine Pulmonary and Critical Care Medicine [facility] H&P reviewed. The patient was examined and there are no changes to the H&P. Plan for EBUS-TBNA today. Risks and benefits of procedure explained to patient including bleeding, infection, pneumothorax, respiratory failure, etc. 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 - CELLULAR EXAMon 07-31-2023 LAB AP CASE REPORT Normal [facility] Comment on above: Result Comment: Non- gynecologic Cytology Case: [id number] Authorizing Provider: Chinyere Candelaria MD Collected: 09/06/2022 1316 Ordering Location: [facility] Main Operating Room Received: 09/06/2022 1355 Pathologist: Sari Coyne MD Specimens: A) - Lymph Node Station 2L, 2L B) - Lymph Node Station 7, station 7 Performed By: #### L AB13 #### [facility] (BEAKER) [address] [place] [address] LAB AP CLINICAL INFORMATION Order Diagnoses Normal [facility] Comment on above: Result Comment: C34. 92 - Primary adenocarcinoma of left lung (CMS/HCC) [ICD-10-CM] Performed By: #### L AB13 #### [facility] (BEAKER) [address] [place] [address] LAB AP GROSS DESCRIPTION [facility] Comment on above: Result Comment: A) 3 air-dried slides, 3 alcohol-fixed slides, 30 mL CytoLyt with clear colorless fluid B) 2 air-dried slides, 2 alcohol-fixed slides, 30 mL CytoLyt with pink cloudy fluid Performed By: #### L AB13 #### [facility] ([facility]) [address] [place] [address] LAB AP INTRAOPERATIVE CONSULTATION [facility] Comment on above: Result Comment: A. L ymph Node Station 2L. Rapid on-site evaluation was performed by Du Barkley MD; The material examined during rapid on-site evaluation was deemed Inadequate for diagnosis. Pass #1: Inadequate Pass #2: Inadequate Pass #3: Inadequate *Only select material is examined during the on-site evaluation. Final diagnosis is pending the review of all material submitted.* B. Lymph Node Station 7. Rapid on-site evaluation was performed by Du Barkley MD The material examined during rapid on-site evaluation was deemed Adequate for diagnosis. Pass #1: Adequate Pass #2: Adequate Pass #3: Defer to CB Pass #4: Defer to CB *Only select material is examined during the on-site evaluation. Final diagnosis is pending the review of all material submitted.* Performed By: #### L AB13 #### [facility] ([facility]) [address] [place] [address] LAB AP REPORT FINAL DIAGNOSIS NARRATIVE Normal [facility] Comment on above: Result Comment: A. L ymph node, 2L, fine needle aspiration: - Non-diagnostic due to scant cellularity - No cellular evidence of lymph node B. Lymph node, station 7, fine needle aspiration: - Negative for malignancy - Cellular evidence of lymph node Performed By: #### L AB13 #### [facility] ([facility]AK[facility]) [address] [place] [address] POCT GLUCOSE METER UNSOLICIT ED RESULTSon 09-06-2022 Glucose [Mass/Vol] 133 mg/dL High 70-105 [facility] Comment on above: Order Comment: Waive d Testing in the ED is performed under the ED CLIA certificate #[id number]. Result Comment: [email or web address] Performed By: #### L [id number] #### [facility] ([facility]AKER) [address] [place] [address] [id number] 08-30-2022 [id number] Nothing to Eat or Drink, including Candy, Gum, Mints, and Tobacco after Midnight the night before surgery. Take METOPROLOL with a sip of water the day of surgery. Hold all other meds the morning of surgery. IF YOU ARE GOING HOME AFTER YOUR SURGERY OR PROCEDURE, FOR YOUR SAFETY, YOUR SURGERY WILL BE CANCELLED IF BOTH OF THE FOLLOWING ARE NOT AVAILABLE: An adult trash truck driver over the age of 18, that can receive information about your care after surgery, and drive you home. A responsible adult to stay with you for 24 hours in case of an emergency. Can be same as above. The highest risk of complications is within the first 24 hours after sedation/anesthesia. Nothing to eat or drink after midnight the night before surgery. This includes gum, candy, mints, and lozenges. No alcohol, marijuana, or tobacco products including vaping for 24 hours. Please brush your teeth; don't swallow the toothpaste or water. If you use dentures, wear them but do not use paste. Please leave any other removable dental hardware at home. Do not put in contact lenses. Do not wear perfume, make-up, nail marshallese, or lotions on the day of your surgery or procedure. Follow skin-prep/wipe instructions as below if required. Bring with you: *Insurance card *Photo ID *Medication list *Co-pay for visit/prescriptions If applicable: *Rescue inhalers *Green bracelet from lab *CPAP or BiPAP machine, if staying overnight *Any braces, splints, or equipment ordered preoperatively *Remote controls for implanted devices Leave at home: *Purse/Wallet/Clemente- unless needed for co-pay *Cell phone (can leave with family/friend or place in locker if needed) *Jewelry (including piercings and wedding bands) *If not possible, ask the person who is waiting with you to keep them Children under the age of 12 will not be allowed into patient care areas. We will call you between 3pm and 4pm the day before your surgery to give you an arrival time. If you do not receive this call, have any questions, or need to make any changes, please call [phone]. Notify your surgeon if you develop any illness such as a cold, cough, fever, sore throat or vomiting between now and your surgery. Thank you for entrusting us with your care. [facility] Surgical Services Team Normal [facility] Prep for Procedureon 023 Prep for Procedure [id number] Brigette Grajeda 1960 M Date Provider Department Center 08/30/2022 CHINYERE AGUIRRE [facility] Family History Family history unknown: Yes Normal [facility]isa 08-26-2022 NOLVIA Telephone (PARAMJIT) JARET GRAJEDA ([id number]) 1960 M Date Time Provider Department 08/26/22 DELFINA BLUE During your visit today, we recorded the following information about you: Sai Jeremiah 09/01/2022 10:10 AM Addendum LOCAL PATIENT Received Fax from Dr. Wade Jones Jaret Grajeda is being referred to Delfina Blue MD, PhD or Zbigniew Wilkinson M.D. by Wade Jones Sr, MD [address] [facility] [address] Patient diagnosis/Reason for consult: Lung Cancer Referral triage process explained: Yes Patient will receive a call from Thoracic NPM after triage review with surgeon to discuss any additional testing and/or consults that will be scheduled. Pt will then receive a call from our scheduling office for scheduling. Please call pt at [phone]. Patient was informed consultation could be at [place] or [facility]: No Patient Registration: Registration complete/updated: Yes Insurance card(s) scanned in [facility] with in the past year: Yes: Date: 08/26/22 Pt's [employer] is Pending. Ok to communicate to pt via [employer] not asked Medical Records: Records in [facility] (internal CC records): No Imaging in [facility] (internal CC records): No Care Everywhere - queried yes, downloaded Yes Linked Outside Organizations (list):[facility] Records Requested: yes Date: August 26, 2022 Outside Hospital(s) requested records from: Dr. Wade Jones, Dr. Garber Received: Yes Uploaded: Yes. Waiting on additional records: No. Missing (list): n/a OS Pathology Slides Requested: no Date: N/A Outside Hospital(s) slides requested from: n/a OS Radiology Imaging Requested: yes Date: August 26, 2022 Outside Hospital(s) requested imaging from: [facility]. Imaging will be received via Electronic Transfer Received: Yes Imaging uploaded: Yes Waiting on additional: No. Missing (list): n/a Additional providers added to Care Teams: Yes Additional Notes/Comments: n/a Enct routed to: Thoracic NPM for Triage Jeremiah Gibbs, warehouse administrator Socrates Pastor RN 09/09/2022 3:55 PM Signed Thoracic Surgery Consultation - review of records for appointment scheduling Received medical records from the office of Wade Jones Sr, MD [address] [place] [address] Patient is being referred to Unspecified/First Available by Wade Jones Sr. for Lung Cancer Outside hospital records scanned /Care Everywhere Pathology: 09/06 ebus Final Diagnosis A. Lymph node, 2L, fine needle aspiration: - Non-diagnostic due to scant cellularity - No cellular evidence of lymph node B. Lymph node, station 7, fine needle aspiration: - Negative for malignancy - Cellular evidence of lymph node Procedures: 09/06 [facility] 08/13/22 ct guided bx Imaging . PET/CT: 08/27/22 CT (chest) 07/27/22 Cardiopulmonary Testing . PFT's/Six: Cardiac: 07/28/22 echo Office Notes/Consults 08/19 hem onc Assessment and Plan: Diagnoses and all orders for this visit: Primary adenocarcinoma of left lung (CMS/HCC) Tobacco use Plan: - Plan for EBUS, for staging based on mass size. Tentatively next week. - Follow up with oncology for NSCLC treatment. - Patient will need PFT to assess lung function once Bx is done. History of: No family history on file. No past medical history on file. No past surgical history on file. Request consult with dr blue pft/dlco/ six min walk Socrates Pastor RN Referring Provider: WADE JONES SR [[id number]] Allergies As of Date: 08/26/2022 (Not on File) Date Reviewed: Never Reviewed Reason for Visit: External Referrals/resources [909] Consult [173] Primary Visit Diagnosis:Malignant neoplasm of left lung, unspecified part of lung (HCC) [C34.92] Order(s):SPIROMETRY BASELINE ONLY [1727111] Order #: [id number]: 1 FUTURE LUNG DIFFUSION CAPACITY (DLCO) [7007731] Order #: [id number]: 1 FUTURE SIX MINUTE WALK [0546080] Order #: [id number]: 1 FUTURE Problem List As Of Date: 08/26/2022 (None) Encounter Status:Closed by SOCRATES PASTOR on 09/09/22 [facility] 08-25-2022 CNPN Telephone (NCCAP) JARET GRAJEDA ([id number]) 1960 M Date Time Provider Department 08/25/22 DON MEJIA During your visit today, we recorded the following information about you: Purnima Hayes 08/25/2022 8:24 AM Signed Called patient X 2 to schedule appointments for here, left messages both days Allergies As of Date: 08/25/2022 (Not on File) Date Reviewed: Never Reviewed Reason for Visit: Appointment Confirmation [[id number]] Problem List As Of Date: 08/25/2022 (None) Encounter Status:Closed by PURNIMA HAYES on 08/25/22 [facility] HPon 08-19-2022 - Attestation signed by Chinyere Candelaria MD at 08/20/2022 4:20 PM Total time spent on day of encounter: 25 minutes Attending attestation: GC: I personally spoke with this patient via telephone on the day of the encounter, performed the rosado portion(s) of the service and participated in the management and confirm the fellow's documentation. Physical examination was not performed and may limit some portions of the clinical encounter. Please note there may be an additional personal documentation from me. Pulmonary Clinic Telemedicine Visit Patient: Jaret Grajeda Age: 62 y.o. : 1960 Account No.: [id number] Referring physician: Chief complaint: Lung mass, newly diagnosed NSCLC HPI Jaret Grajeda is a 62 y.o. male with medical Hx of alcohol use disorder, tobacco use, recently admitted for generalized weakness, found to have left upper lobe mass, s/p IR guided Bx, which confirmed NSCLC, adenocarcinoma, genetic profile unavailable. He was referred to the clinic for EBUS staging. He reports chronic cough, occasional sputum production, clear/green in color. He has been having Wt loss and poor appetite. Patient has been long standing smoker, for years. No family Hx of Ca. CT scan showing 3 cm left upper lobe mass. No significant lymphadenopathy. Past Medical History: Diagnosis Date Anemia, unspecified Cancer of upper lobe of left lung (CMS/HCC) Past Surgical History: Procedure Laterality Date LUNG BIOPSY 07/2022 Allergies: Patient has no allergy information on record. Prior to Admission medications Medication Sig Start Date End Date Taking? Authorizing Provider folic acid (Folvite) 1 mg tablet Take 1,000 mcg by mouth in the morning. 08/01/22 Historical Provider, furosemide (Lasix) 40 mg tablet Take 40 mg by mouth in the morning. 08/01/22 Historical Provider, magnesium oxide (Mag-Ox) 400 mg (241.3 mg magnesium) tablet Take 1 tablet by mouth in the morning and at bedtime. 08/01/22 Historical Provider, metoprolol succinate XL (Toprol-XL) 50 mg 24 hr tablet Take 50 mg by mouth in the morning and at bedtime. 05/27/22 Historical Provider, potassium chloride CR (K-Tab) 20 mEq ER tablet Take 20 mEq by mouth in the morning. 08/01/22 Historical Provider, spironolactone (Aldactone) 50 mg tablet Take 50 mg by mouth in the morning. 08/01/22 Historical Provider, Vitamin B-1, mononitrate, 100 mg tablet Take 1 tablet by mouth in the morning. 09/22/21 Historical Provider, Social history: reports that he has been smoking cigarettes. He has a 40.00 pack-year smoking history. He does not have any smokeless tobacco history on file. He reports current alcohol use of about 42.0 standard drinks of alcohol per week. Drug use questions deferred to the physician. Family History Family history unknown: Yes Review of Systems: CONSTITUTIONAL: no weight loss, no fever, no chills HEENT: no vision changes, no ear pain, no runny nose, no sore throat RESPIRATORY: no dyspnea, no cough, no wheeze, no sputum production CV: no chest pain, no palpitations, no syncope GI: no abdominal pain, no nausea, no vomiting, no diarrhea. MSK: no myalgia, no joint pain. SKIN: no rash, no pruritus. NEUROLOGICAL: no weakness, no paresthesias PSYCHIATRIC: No mood changes. No anxiety, no depression. Physical examination: Vitals: There were no vitals taken for this visit. No exam, tele visit Labs Results: No results found for: HGB, HCT, WBC, BUN, BUN, CREATININE, CREATININE, NA, K, BICARB, CO2, CO2, PH, PH, PHART, PHVEN, QDQ5XRY, VXL8CKU, IRS1SXX, PO2POC, PO2ART, PO2VEN, DWI6NJI, YBA3LOO Radiology: No Chest X-ray results found for the past [address] results found for the past 12 months Assessment and Plan: Diagnoses and all orders for this visit: Primary adenocarcinoma of left lung (CMS/HCC) Tobacco use Plan: - Plan for EBUS, for staging based on mass size. Tentatively next week. - Follow up with oncology for NSCLC treatment. - Patient will need PFT to assess lung function once Bx is done. Total time spent was 25 minutes. The visit was initiated by the patient and conducted oin-uvlu-op-face with use of audio-only real time telephone communication between patient and provider for a virtual visit. Verbal consent to provide and bill for this service was obtained No signature was obtained due to the COVID-19 pandemic. 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 CT of chest done 07-27-22. Films in EPIC Normal [facility] Orders Onlyon 08-18-2022 Orders Only [id number] Brigette Grajeda 1960 M Date Provider Department Center 08/18/2022 [facility] ONC DCC Family History Family history unknown: Yes Normal [facility] CARDIAC ARIANE ADMITon 022 CK [Catalytic activity/Vol] 140 U/L Normal 39-308 [facility] Comment on above: Performed By: #### E TH, CMP, CMADM ####[facility] [address] [address]Dr. Dalton Uribe CK.MB [Mass/Vol] 2.29 ng/mL Normal <=3.60 [facility] Comment on above: Performed By: #### E TH, CMP, CMADM ####[facility] [address] [address]Dr. Dalton Uribe HSTROP 9.7 pg/mL Normal 4.0-76.1 [facility] Comment on above: Result Comment: CUT- OFF POINTS HAVE BEEN ESTABLISHED BASED ON THE FOURTH UNIVERSAL DEFINITIONS OF MYOCARDIAL INFARCTION. THE UPPER REFERENCE LIMIT (URL) OF TROPONIN, DEFINED THE 99TH PERCENTILE OF cTnI DISTRIBUTION IN A REFERENCE POPULATION, HAS BEEN CONFIRMED THE DECISION THRESHOLD FOR CO DIAGNOSIS. Performed By: #### E TH, CMP, CMADM ####[facility] [address] [place] [address] [id number]. Dalton Uribe ARASH 43 ng/mL Normal 16-96 [facility] Comment on above: Performed By: #### E TH, CMP, CMADM ####[facility] [address] [address]Dr. Dalton Uribe CBC AUTO DIFFon 06-19-2021 BASO # 0.0 103/ul Normal 0.0-0.1 [facility] Comment on above: Performed By: #### C BC #### [facility] [address] [place] [address] Dr. Dalton Uribe Basophils/100 WBC (Bld) 0.3 % Normal 0.2-2.0 [facility] Comment on above: Performed By: #### C BC #### [facility] [address] [place] [address] Dr. Dalton Uribe EO # 0.0 103/ul Normal 0.0-0.7 [facility] Comment on above: Performed By: #### C BC #### [facility] [address] [place] [address] Dr. Dalton Uribe Eosinophils/100 WBC (Bld) 0.1 % Critically low 0.9-7.0 [facility] Comment on above: Performed By: #### C BC #### [facility] [address] [place] [address] Dr. Dalton Uribe Erythrocyte distribution width (RBC) [Ratio] 12.5 % Normal 11.0-15.0 [facility] Comment on above: Performed By: #### C BC #### [facility] [address] [place] [address] Dr. Dalton Uribe Hematocrit (Bld) [Volume fraction] 39.5 % Critically low 42.0-54.0 [facility] Comment on above: Performed By: #### C BC #### [facility] [address] [place] [address] Dr. Dalton Uribe Hemoglobin (Bld) [Mass/Vol] 13.9 g/dL Critically low 14.0-18.0 [facility] Comment on above: Performed By: #### C BC #### [facility] [address] [place] [address] Dr. Dalton Uribe IG # 0.03 10e3/ul Normal 0.00-0.03 [facility] Comment on above: Performed By: #### C BC #### [facility] [address] [place] [address] Dr. Dalton Uribe IG % 0.3 % Normal 0.0-0.5 [facility] Comment on above: Performed By: #### C BC #### [facility] [address] [address] [address] Dalton Uribe LYMPH # 1.1 103/ul Critically low 1.2-3.8 [facility] Comment on above: Performed By: #### C BC #### [facility] [address] [address] [address] Dalton Uribe Lymphocytes/100 WBC (Bld) 10.1 % Critically low 20.5-60.0 [facility] Comment on above: Performed By: #### C BC #### [facility] [address] [address] [address] Dalton Uribe MANUAL DIFF REQ NO Normal [facility] Comment on above: Performed By: #### C BC #### [facility] [address] [place] [address] Dr. Dalton Uribe MCH (RBC) [Entitic mass] 33.3 pg Normal 25.9-34.0 [facility] Comment on above: Performed By: #### C BC #### [facility] [address] [place] [address] Dr. Dalton Uribe MCHC (RBC) [Mass/Vol] 35.2 g/dL Normal 29.9-35.2 [facility] Comment on above: Performed By: #### C BC #### [facility] [address] [place] [address] Dr. Dalton Uribe MCV (RBC) [Entitic vol] 94.7 fL Critically high 80.0-94.0 [facility] Comment on above: Performed By: #### C BC #### [facility] [address] [place] [address] Dr. Dalton Uribe MONO # 1.0 103/ul Critically high 0.3-0.8 [facility] Comment on above: Performed By: #### C BC #### [facility] [address] [place] [address] Dr. Dalton Uribe Monocytes/100 WBC (Bld) 9.1 % Normal 1.7-12.0 [facility] Comment on above: Performed By: #### C BC #### [facility] [address] [address] [address] Dalton Uribe NEUT # 8.7 103/ul Critically high 1.4-6.5 [facility] Comment on above: Performed By: #### C BC #### [facility] [address] [place] [address] Dr. Dalton Uribe Neutrophils/100 WBC (Bld) 80.1 % Critically high 43.0-75.0 [facility] Comment on above: Performed By: #### C BC #### [facility] [address] [place] [address] Dr. Dalton Uribe Platelet mean volume (Bld) [Entitic vol] 10.0 fL Normal 9.5-13.5 [facility] Comment on above: Performed By: #### C BC #### [facility] [address] [place] [address] Dr. Dalton Uribe PLT 133 103/ul Critically low 150-450 [facility] Comment on above: Result Comment: few giant plts and large plts seen Performed By: #### C BC #### [facility] [address] [place] [address] Dr. Dalton Uribe RBC 4.17 106/ul Critically low 4.70-6.10 [facility] Comment on above: Performed By: #### C BC #### [facility] [address] [place] [address] Dr. Dalton Uribe WBC 10.9 103/ul Normal 4.0-11.0 [facility] Comment on above: Performed By: #### C BC #### [facility] [address] [place] [address] HEAD WO CONon 06-19-2021 CT HEAD WO CON EXAMINATION: CT HEAD WO CON HISTORY: Asthenia shaky feeling, worsening COMPARISON: None. TECHNIQUE: CT examination of the head without IV contrast. Dose reduction techniques were achieved by using automated exposure control and/or adjustment of mA and/or kV according to patient size and/or use of iterative reconstruction technique. FINDINGS: Diffuse ventricular and sulcal prominence consistent with age-related involutional change. No herniation or hydrocephalus. The olsen matter/white matter differentiation is maintained throughout. No CT evidence of contemporary infarction. Periventricular and deep white matter foci of decreased attenuation. No acute intracranial hemorrhage or parenchymal mass. The calvarium and skull base are intact. Debris within the external auditory canals likely cerumen. The pneumatized portions of the skull are clear. IMPRESSION: 1. No acute intracranial abnormality. 2. Mild chronic microvascular ischemic white matter disease. Electronically authenticated by: HUBER STACY Date: 2021-06-19 12:16 Normal [facility] ETHANOL (BLD ALC)on 06-20-19 22 ALC NOTE NOTE: 80 mg/dl is th e legal limit for a blood alcohol level Normal [facility] Comment on above: Performed By: #### E THDEREK CMADM ####[facility] [address] [address]Dr. Dalton Uribe Ethanol [Mass/Vol] mg/dL Normal [facility] Comment on above: Performed By: #### E THDEREK CMADM ####[facility] [address] [place] [address]Dr. Dalton Uribe PROF 14(COMP METB)on 022 Albumin [Mass/Vol] 3.8 g/dL Normal 3.4-5.0 [facility] Comment on above: Performed By: #### E THDEREK, ORION ####[facility] [address] [address]Dr. Dalton Uribe Albumin/Globulin [Mass ratio] 1.0 {ratio} Normal [facility] Comment on above: Performed By: #### E TH, DEREK, CMADEEPTHI ####[facility] [address] [address]Dr. Dalton Uribe ALP [Catalytic activity/Vol] 88 U/L Normal 46-116 [facility] Comment on above: Performed By: #### E TH, DEREK, ORION ####[facility] [address] [place] [address]Dr. Dalton Uribe ALT [Catalytic activity/Vol] 64 U/L Critically high 16-63 [facility] Comment on above: Performed By: #### E TH, DEREK, CMADEEPTHI ####[facility] [address] [place] [address]Dr. Dalton Uribe Anion gap [Moles/Vol] 16.0 mmol/L Normal [facility] Comment on above: Performed By: #### E TH, CMP, CMADM ####[facility] [address] [address]Dr. Dalton Uribe AST [Catalytic activity/Vol] 65 U/L Critically high 15-37 [facility] Comment on above: Performed By: #### E TH, CMP, CMADM ####[facility] [address] [place] [address]Dr. Dalton Uribe Bilirubin [Mass/Vol] 1.3 mg/dL Critically high 0.2-1.0 [facility] Comment on above: Performed By: #### E , CMP, CMADM ####[facility] [address] [place], [place] [address]Dr. Dalton Uribe Calcium [Mass/Vol] 9.1 mg/dL Normal 8.5-10.1 [facility] Comment on above: Performed By: #### E , CMP, CMADM ####[facility] [address] [place], [place] [address]Dr. Dalton Uribe Chloride [Moles/Vol] 92 mmol/L Critically low 98-107 [facility] Comment on above: Performed By: #### E , CMP, CMADM ####[facility] [address] [place] [address]Dr. Dalton Uribe CO2 [Moles/Vol] 25.4 mmol/L Normal 21.0-32.0 [facility] Comment on above: Performed By: #### E , CMP, CMADM ####[facility] [address] [place] [address]Dr. Dalton Uribe Creatinine [Mass/Vol] 0.85 mg/dL Normal 0.70-1.30 [facility] Comment on above: Performed By: #### E TH, CMP, CMADM ####[facility] [address] [place] [address]Dr. Dalton Uribe EGFR-AF GEORGIAN >60 Normal >=60 [facility] Comment on above: Performed By: #### E , CMP, CMADM ####[facility] [address] [place] [address]Dr. Dalton Uribe EGFR-NON AF GEORGIAN >60 Normal >=60 [facility] Comment on above: Performed By: #### E , CMP, CMADM ####[facility] [address] [place] [id number]. Dalton Uribe Globulin (S) [Mass/Vol] 3.7 g/dL Normal [facility] Comment on above: Performed By: #### E , CMP, CMADM ####[facility] [address] [place] [address]Dr. Dalton Uribe Glucose [Mass/Vol] 106 mg/dL Normal 74-106 [facility] Comment on above: Performed By: #### E , CMP, CMADM ####[facility] [address] [place] [address]Dr. Dalton Uribe Potassium [Moles/Vol] 3.4 mmol/L Critically low 3.5-5.1 [facility] Comment on above: Performed By: #### E , CMP, CMADM ####[facility] [address] [place] [address]Dr. Dalton Uribe Protein [Mass/Vol] 7.5 g/dL Normal 6.4-8.2 [facility] Comment on above: Performed By: #### E , CMP, CMADM ####[facility] [address] [place] [address]Dr. Dalton Uribe Sodium [Moles/Vol] 130 mmol/L Critically low 136-[address] [facility] Comment on above: Performed By: #### E , CMP, CMADM ####[facility] [address] [place] [address]Dr. Dalton Uribe Urea nitrogen [Mass/Vol] 10.0 mg/dL Normal 7.0-18.0 [facility] Comment on above: Performed By: #### E TH, CMP, CMADM ####[facility] [address] [place] [id number]. Dalton Uribe Urea nitrogen/Creatinine [Mass ratio] 11.8 mg/mg Normal [facility] Comment on above: Performed By: #### E TH, CMP, CMADM ####[facility] [address] [place] [id number]. Dalton Uribe XR CHEST 1 Von 06-19-2021 XR CHEST 1 V EXAMINATION: XR CHES T 1 V HISTORY: Asthenia COMPARISON: No relevant comparison available. TECHNIQUE: AP portable erect FINDINGS: LUNGS: Ill-defined 2.6 cm density in the left upper lung zone. Right basilar nodule possibly a nipple shadow VASCULATURE: No increased pulmonary vasculature. PLEURA: No pneumothorax, effusion, or pleural thickening. CARDIAC: No cardiomegaly or cardiac silhouette abnormality. MEDIASTINUM: No visible mass or adenopathy. BONES: No fracture or visible bone lesion. OTHER: Negative. IMPRESSION: Left upper lobe ill-defined density, consider CT scan to exclude a mass Electronically authenticated by: ANNE GUADALUPE Date: 2021-06-19 12:27 Normal [facility] CBC AUTO DIFFon 06-18-2021 BASO # 0.0 103/ul Normal 0.0-0.1 [facility] Comment on above: Performed By: #### C BC ####[facility] [address] [place] [address]Dr. Dalton Uribe Basophils/100 WBC (Bld) 0.3 % Normal 0.2-2.0 [facility] Comment on above: Performed By: #### C BC ####[facility] [address] [place] [address]Dr. Dalton Uribe EO # 0.0 103/ul Normal 0.0-0.7 [facility] Comment on above: Performed By: #### C BC ####[facility] [address] [place] [address]Dr. Dalton Uribe Eosinophils/100 WBC (Bld) 0.1 % Critically low 0.9-7.0 [facility] Comment on above: Performed By: #### C BC ####[facility] [address] [place] [address]Dr. Dalton Uribe Erythrocyte distribution width (RBC) [Ratio] 12.7 % Normal 11.0-15.0 [facility] Comment on above: Performed By: #### C BC ####[facility] [address] [place] [id number]. Dalton Uribe Hematocrit (Bld) [Volume fraction] 42.5 % Normal 42.0-54.0 [facility] Comment on above: Performed By: #### C BC ####[facility] [address] [place] [id number]. Dalton Uribe Hemoglobin (Bld) [Mass/Vol] 14.6 g/dL Normal 14.0-18.0 [facility] Comment on above: Performed By: #### C BC ####[facility] [address] [place], [place] [address]Dr. Dalton Uribe IG # 0.04 10e3/ul Critically high 0.00-0.03 [facility] Comment on above: Performed By: #### C BC ####[facility] [address] [place], [place] [address]Dr. Dalton Rony IG % 0.4 % Normal 0.0-0.5 [facility] Comment on above: Performed By: #### C BC ####[facility] [address] [place] [id number]. Dalton Uribe LYMPH # 1.1 103/ul Critically low 1.2-3.8 [facility] Comment on above: Performed By: #### C BC ####[facility] [address] [place] [id number]. Emmamarbella Uribe Lymphocytes/100 WBC (Bld) 10.6 % Critically low 20.5-60.0 [facility] Comment on above: Performed By: #### C BC ####[facility] [address] [place] [address]Dr. Emmamarbella Uribe MANUAL DIFF REQ NO Normal [facility] Comment on above: Performed By: #### C BC ####[facility] [address] [place] [address]. Dalton Uribe MCH (RBC) [Entitic mass] 32.7 pg Normal 25.9-34.0 [facility] Comment on above: Performed By: #### C BC ####[facility] [address] [place] [address]Dr. Dalton Uribe MCHC (RBC) [Mass/Vol] 34.4 g/dL Normal 29.9-35.2 [facility] Comment on above: Performed By: #### C BC ####[facility] [address] [place], [place] [address]Dr. Dalton Uribe MCV (RBC) [Entitic vol] 95.3 fL Critically high 80.0-94.0 [facility] Comment on above: Performed By: #### C BC ####[facility] [address] [place], [place] [address]Dr. Dalton Uribe MONO # 1.0 103/ul Critically high 0.3-0.8 [facility] Comment on above: Performed By: #### C BC ####[facility] [address] [place], [place] [address]Dr. Dalton Uribe Monocytes/100 WBC (Bld) 9.9 % Normal 1.7-12.0 [facility] Comment on above: Performed By: #### C BC ####[facility] [address] [place], [place] [address]Dr. Dalton Uribe NEUT # 8.1 103/ul Critically high 1.4-6.5 [facility] Comment on above: Performed By: #### C BC ####[facility] [address] [place], [place] [address]Dr. Dalton Uribe Neutrophils/100 WBC (Bld) 78.7 % Critically high 43.0-75.0 [facility] Comment on above: Performed By: #### C BC ####[facility] [address] [place], [place] [address]Dr. Dalton Uribe Platelet mean volume (Bld) [Entitic vol] 9.6 fL Normal 9.5-13.5 [facility] Comment on above: Performed By: #### C BC ####[facility] [address] [place], [place] [address]Nq. Dalton Uribe PLT 152 103/ul Normal 150-450 [facility] Comment on above: Performed By: #### C BC ####[facility] [address] [place], [place] [address]Po. Dalton Uribe RBC 4.46 106/ul Critically low 4.70-6.10 [facility] Comment on above: Performed By: #### C BC ####[facility] [address] [place], [place] [address]Kb. Dalton Uribe WBC 10.2 103/ul Normal 4.0-11.0 [facility] Comment on above: Performed By: #### C BC ####[facility] [facility] [id number] [place], [place] [address]NmKeshawn Uribe PROF 14(COMP METB)on 022 Albumin [Mass/Vol] 4.0 g/dL Normal 3.4-5.0 [facility] Comment on above: Performed By: #### T SH, T4, CMP #### [facility] [address] [address] [address] Dalton Uribe Albumin/Globulin [Mass ratio] 1.1 {ratio} [facility] Comment on above: Performed By: #### T SH, T4, CMP #### [facility] [address] [address] [address] Dalton Uribe ALP [Catalytic activity/Vol] 88 U/L Normal 46-116 [facility] Comment on above: Performed By: #### T SH, T4, CMP #### [facility] [address] [address] [address] Dalton Uribe ALT [Catalytic activity/Vol] 74 U/L Critically high 16-63 [facility] Comment on above: Performed By: #### T SH, T4, CMP #### [facility] [address] [address] [address] Dalton Uribe Anion gap [Moles/Vol] 17.1 mmol/L Normal [facility] Comment on above: Performed By: #### T SH, T4, CMP #### [facility] [address] [place] [address] Dr. Dalton Uribe AST [Catalytic activity/Vol] 73 U/L Critically high 15-37 [facility] Comment on above: Performed By: #### T SH, T4, CMP #### [facility] [address] [place] [address] Dr. Dalton Uribe Bilirubin [Mass/Vol] 1.8 mg/dL Critically high 0.2-1.0 [facility] Comment on above: Performed By: #### T SH, T4, CMP #### [facility] [address] [place] [address] Dr. Dalton Uribe Calcium [Mass/Vol] 9.1 mg/dL Normal 8.5-10.1 [facility] Comment on above: Performed By: #### T SH, T4, CMP #### [facility] [address] [place] [address] Dr. Dalton Uribe Chloride [Moles/Vol] 95 mmol/L Critically low 98-107 [facility] Comment on above: Performed By: #### T SH, T4, CMP #### [facility] [address] [place] [address] Dr. Dalton Uribe CO2 [Moles/Vol] 26.5 mmol/L Normal 21.0-32.0 [facility] Comment on above: Performed By: #### T SH, T4, CMP #### [facility] [address] [place] [address] Dr. Dalton Uribe Creatinine [Mass/Vol] 0.88 mg/dL Normal 0.70-1.30 [facility] Comment on above: Performed By: #### T SH, T4, CMP #### [facility] [address] [place] [address] Dr. Dalton Uribe EGFR-AF GEORGIAN >60 Normal >=60 [facility] Comment on above: Performed By: #### T SH, T4, CMP #### [facility] [address] [place] [address] Dr. Dalton Uribe EGFR-NON AF GEORGIAN >60 Normal >=60 [facility] Comment on above: Performed By: #### T SH, T4, CMP #### [facility] [address] [address] [address] Dalton Uribe Globulin (S) [Mass/Vol] 3.8 g/dL Normal [facility] Comment on above: Performed By: #### T SH, T4, CMP #### [facility] [address] [address] [address] Dalton Uribe Glucose [Mass/Vol] 115 mg/dL Critically high 74-106 [facility] Comment on above: Performed By: #### T SH, T4, CMP #### [facility] [address] [place] [address] Dr. Dalton Uribe Potassium [Moles/Vol] 3.6 mmol/L Normal 3.5-5.1 [facility] Comment on above: Performed By: #### T SH, T4, CMP #### [facility] [address] [place] [address] Dr. Dalton Uribe Protein [Mass/Vol] 7.8 g/dL Normal 6.4-8.2 [facility] Comment on above: Performed By: #### T SH, T4, CMP #### [facility] [address] [place] [address] Dr. Dalton Uribe Sodium [Moles/Vol] 135 mmol/L Critically low 136-[address] [facility] Comment on above: Performed By: #### T SH, T4, CMP #### [facility] [address] [place] [address] Dr. Dalton Uribe Urea nitrogen [Mass/Vol] 8.0 mg/dL Normal 7.0-18.0 [facility] Comment on above: Performed By: #### T SH, T4, CMP #### [facility] [address] [place] [address] Dr. Dalton Uribe Urea nitrogen/Creatinine [Mass ratio] 9.1 mg/mg Normal [facility] Comment on above: Performed By: #### T SH, T4, CMP #### [facility] [address] [place] [address] Dr. Dalton Uribe T4on 06-18-2021 T4 [Mass/Vol] 8.10 ug/dL Normal 4.50-12.10 [facility] Comment on above: Performed By: #### T SH, T4, CMP #### [facility] [address] [place] [address] Dr. Dalton Uribe TSHon 06-18-2021 TSH 1.856 uIU/mL Normal 0.358-3.740 [facility] Comment on above: Performed By: #### T SH, T4, CMP #### [facility] [address] [address] [address] Dalton Uribe TSH RANGE SEE BELOW Normal [facility] Comment on above: Result Comment: <0.3 4 UIU/ml HYPERTHYROID 0.34-5.60 UIU/ml EUTHYROID >5.60 UIU/ml HYPOTHYROID Performed By: #### T SH, T4, CMP #### [facility] [address] [place] [address] Dr. Dalton Uribe Vital Signs Date Time Vital Sign Value Performing Clinician Faci lity 04-08-2023 10:28-0500 Body temperature 97.2 [degF] Don Mejia MD Work Phone: [facility] 04-08-2023 10:28-0500 Body weight 71.8 kg Don Mejia MD Work Phone: [facility] 04-08-2023 10:28-0500 Diastolic blood pressure 93 mm[Hg] Don Mejia MD Work Phone: [facility] 04-08-2023 10:28-0500 Heart rate 69 /min Don Mejia MD Work Phone: [facility] 04-08-2023 10:28-0500 Respiratory rate 18 /min Don Mejia MD Work Phone: [facility] 04-08-2023 10:28-0500 SaO2% (BldA) [Mass fraction] 99 % Don Mejia MD Work Phone: [facility] 04-08-2023 10:28-0500 Systolic blood pressure 164 mm[Hg] Don Mejia MD Work Phone: [facility] 10-14-2022 12:00-0400 Body height 173 cm [facility] [place] Work Phone: [facility] 10-14-2022 12:00-0400 Body weight 73.48 kg [facility] [place] Work Phone: [facility] 09-27-2022 09:00-0400 Body height 175.3 cm Don Mejia MD Work Phone: [facility] 09-27-2022 09:00-0400 Body temperature 97.39 [degF] Don Mejia MD Work Phone: [facility] 09-27-2022 09:00-0400 Body weight 74.21 kg Don Mejia MD Work Phone: [facility] 09-27-2022 09:00-0400 Diastolic blood pressure 118 mm[Hg] Don Mejia MD Work Phone: [facility] 09-27-2022 09:00-0400 Heart rate 78 /min Don Mejia MD Work Phone: [facility] 09-27-2022 09:00-0400 Respiratory rate 18 /min Don Mejia MD Work Phone: [facility] 09-27-2022 09:00-0400 SaO2% (BldA) [Mass fraction] 98 % Don Mejia MD Work Phone: [facility] 09-27-2022 09:00-0400 Systolic blood pressure 194 mm[Hg] Don Mejia MD Work Phone: [facility] Encounters Encounter Date Encounter Type Care Provider Facility Start: 06-29-2023 End: 06-29-2023 ambulatory WADE JONES SR Facility:[facility] Start: 06-16-2023 Telephone encounter Don Mejia MD Work Phone: Radiation Oncology Comment on above: Future Appointment Start: 04-08-2023 End: 04-08-2023 ambulatory DON MEJIA Facility:[facility] Start: 04-08-2023 End: 04-08-2023 Patient encounter procedure Don Mejia MD Work Phone: Radiation Oncology Comment on above: Malignant neoplasm o f upper lobe of left lung (HCC) (Primary Dx) Start: 03-31-2023 End: 03-31-2023 ambulatory WADE P HOUSE SR Facility:[facility] Start: 03-24-2023 Telephone encounter Don Mejia MD Work Phone: Radiation Oncology Comment on above: Patient Update (Post Radiation Treatment Nurse Call ) Start: 03-11-2023 Telephone encounter Don Mejia MD Work Phone: Radiation Oncology Comment on above: Orders Start: 03-07-2023 End: 03-07-2023 ambulatory AWDE P HOUSE SR Facility:[facility] Start: 03-07-2023 Patient encounter procedure Don Mejia MD Work Phone: [employer] Start: 03-07-2023 Radiation Oncology Note Don carter MD Work Phone: Radiation Oncology Comment on above: Completion Note Start: 03-04-2023 End: 03-04-2023 ambulatory DONTANNER MEJIA Facility:[facility] Start: 03-02-2023 End: 03-02-2023 ambulatory DON ROBERTO Facility:[facility] Start: 02-28-2023 End: 02-28-2023 ambulatory DON ROBERTO Facility:[facility] Start: 02-11-2023 Patient encounter procedure Don Mejia MD Work Phone: [employer] Start: 02-11-2023 Radiation Oncology Note Don carter MD Work Phone: Radiation Oncology Comment on above: Treatment Planning Start: 02-11-2023 End: 02-11-2023 ambulatory DON MEJIA Facility:[facility] Start: 01-24-2023 End: 01-24-2023 ambulatory WADE P HOUSE SR Facility:[facility] Start: 01-13-2023 Telephone encounter Delfina koehler MD, PhD Work Phone: [facility] Comment on above: Received Outside Med ical Records Start: 01-05-2023 Telephone encounter Don Mejia MD Work Phone: [facility] Comment on above: Appointment Confirma tion Start: 12-23-2022 End: 12-23-2022 ambulatory Delfina Blue MD, PhD Work Phone: [facility] Comment on above: Personal history of malignant neoplasm of bronchus and lung (Primary Dx) Start: 12-23-2022 End: 12-23-2022 Telemedicine consultation with patient Delfina Blue MD, PhD Work Phone: [facility] Start: 12-09-2022 End: 12-09-2022 ambulatory DELFINA BLUE Facility:[facility] Start: 12-09-2022 Encounter for other preprocedural examination DELFINA BLUE [facility] Start: 10-18-2022 Telephone encounter Don Mejia MD Work Phone: Radiation Oncology Comment on above: Future Appointment Start: 10-14-2022 End: 10-14-2022 ambulatory [facility] Pul[facility] Comment on above: Spirometry Start: 10-14-2022 End: 10-14-2022 Patient encounter procedure [facility] [place] Work Phone: [facility] Start: 09-27-2022 End: 09-27-2022 ambulatory Lili Martinez [facility] Comment on above: Patient Education Start: 09-27-2022 Telephone encounter Don Mejia MD Work Phone: [facility] Comment on above: FYI-No Action Needed Start: 09-27-2022 End: 09-27-2022 Patient encounter procedure Don Mejia MD Work Phone: Radiation Oncology Comment on above: Malignant neoplasm o f upper lobe of left lung (HCC) (Primary Dx) Start: 09-17-2022 Telephone encounter Don Mejia MD Work Phone: Radiation Oncology Comment on above: Appointment Start: 09-16-2022 Telephone encounter Delfina koehler MD, PhD Work Phone: [facility] Comment on above: Appointment Confirma tion Start: 09-09-2022 Telephone encounter Don Mejia MD Work Phone: Radiation Oncology Comment on above: Appointment Start: 09-06-2022 End: 09-07-2022 ambulatory [facility] Start: 09-03-2022 End: 09-04-2022 [facility] Start: 08-26-2022 Telephone encounter Delfina koehler MD, PhD Work Phone: [facility] Comment on above: External Referrals/r esources; Consult Start: 08-19-2022 ambulatory [facility] Start: 08-18-2022 End: 08-19-2022 ambulatory [facility] Start: 08-17-2022 End: 08-18-2022 ambulatory [facility] Start: 05-26-2022 End: 05-27-[address] ANNE GUADALUPE Facility:[facility] Start: 04-13-2022 End: 04-14-2022 ambulatory LAISHA HOUSE Facility:[facility] Start: 03-30-2022 End: 03-31-2022 [facility] Start: 03-23-2022 End: 03-23-2022 ambulatory NICHOLE HERNANDES . Facility:[facility] Start: 01-19-[address] WADE JONES Facili ty:[facility] Start: 06-19-2021 End: 06-19-2021 ambulatory SEN PINEDA . Facility:[facility] Start: 06-18-2021 End: 06-19-[address] WADE JONES Facility:[facility] Procedures Date Procedure Procedure Detail Performing Clinician Start: 10-14-2022 End: 10-14-2022 Co diffusing capacity Delfina Blue MD, PhD Work Phone: Plan of Treatment Date Care Activity Detail Author Start: 10-09-2023 Influenza vaccination Influenz a Vaccine (Season Ended) [facility] Start: 07-11-2023 End: 07-11-2023 Patient encounter procedure 07/11/2023 2:00 PM EDT Office Visit Radiation Oncology [address] [place] [address] Don Mejia MD [address] [place] [address] [facility] Comment on above: Followup after ct Start: 07-05-2023 End: 07-05-2023 Patient encounter procedure 07/05/2023 9:15 AM EDT Appointment Radiology [facility] [address] [place] [address] CT [address] [facility] [facility] Comment on above: CT chest Start: 06-09-2023 End: 09-08-2023 CREATININE BLD CREATININE BLD Lab Routine Neoplasm of lung Expected: 06/09/2023, Expires: 09/08/2023 [facility] Work Phone: Comment on above: Expected: 06/09/2023 , Expires: 09/08/2023 Start: 06-09-2023 End: 04-09-2024 CT CHEST W IVCON CT CHEST W IVCON Radiology Routine Neoplasm of lung Expected: 06/09/2023, Expires: 04/09/2024 [facility] Work Phone: Comment on above: Expected: 06/09/2023 , Expires: 04/09/2024 Start: 02-07-2023 Behavioral Health Screening Behavioral Health Screening [facility] Start: 02-07-2023 Depression Assessment Depression Ass essment [facility] Start: 10-08-2022 Covid-19 Vaccine ( season) Covid-19 Vaccine ( season) [facility] Start: 10-08-2022 Influenza vaccination [facility] Start: 02-07-2022 DEPRESSION ASSESSMENT DEPRESSION ASS ESSMENT [facility] Start: 12-22-2020 COVID-19 VACCINE (3 - Pfizer series) COVID-19 VACCINE (3 - Pfizer series) [facility] Start: 2018 RSV Vaccine (1 - 1-d ose 60+ series) RSV Vaccine (1 - 1-dose 60+ series) [facility] Start: 2013 PROSTATE CANCER SCREENING DISCUSSION PROSTATE CANCER SCREENING DISCUSSION [facility] Start: 2013 Prostate specific antigen measurement Prostate Cancer Screening Discussion [facility] Start: 2008 SHINGRIX VACCINE (1 of 2) SHINGRIX VACCINE (1 of 2) [facility] Start: 07-22-2003 COLOGUARD (FIT-DNA) COLOGUARD (FIT-D NA) [facility] Start: 07-22-2003 Colonoscopy COLONOSCOPY [facility] Start: 07-22-2003 COLORECTAL CANCER SCREENING COLORECTAL CANCER SCREENING [facility] Start: 07-22-[address] COLONOGRAPHY [facility] Start: 07-22-2003 DIABETES SCREEN DIABETES SCREEN [facility] Start: 07-22-2003 Diabetes Screening Diabetes Screenin g [facility] Start: 07-22-2003 FECAL OCCULT BLOOD FECAL OCCULT BLOO D [facility] Start: 07-22-2003 Screening for malign ant neoplasm of colon [facility] Start: 07-22-2003 SIGMOIDOSCOPY SIGMOIDOSCOPY [facility] Start: 1993 Lipid 1996 panel - S carol or Plasma Lipid Screening [facility] Start: 1993 Lipid panel Lipid Screening [facility] Start: 1993 LIPID SCREEN LIPID SCREEN [facility] Start: 1977 Urine microalbumin profile [facility] Start: 1976 HEPATITIS C SCREENING HEPATITIS C [facility] Start: 1976 Hepatitis C screening Hepatitis C [facility] Start: 1976 HIV SCREENING HIV SCREENING [facility] Start: 1976 HIV screening HIV Screening [facility] Start: 1964 PNEUMOCOCCAL (1 - PCV) PNEUMOCOCCAL (1 - PCV) [facility] Start: 1964 Pneumococcal vaccination [facility] Start: 01-20-1959 COVID-19 VACCINE (#1) COVID-19 VACCI NE (#1) [facility] End: 10-09-2023 LUNG DIFFUSION CAPACITY (DLCO) LUNG DIFFUSION CAPACITY (DLCO) PFT Routine Malignant neoplasm of left lung, unspecified part of lung (HCC) 1 Occurrences starting 09/09/2022 until 10/09/2023 [facility] Work Phone: Comment on above: 1 Occurrences starti ng 09/09/2022 until 10/09/2023 LUNG DIFFUSION CAPAC ITY (DLCO) LUNG DIFFUSION CAPACITY (DLCO) PFT Routine Malignant neoplasm of left lung, unspecified part of lung (HCC) 10/14/2022 12:37 PM EDT [facility] Work Phone: End: 10-09-2023 SIX MINUTE WALK SIX MINUTE WALK PFT Routine Malignant neoplasm of left lung, unspecified part of lung (HCC) 1 Occurrences starting 09/09/2022 until 10/09/2023 [facility] Work Phone: Comment on above: 1 Occurrences starti ng 09/09/2022 until 10/09/2023 End: 10-09-2023 SPIROMETRY BASELINE ONLY SPIROMETRY BASELINE ONLY PFT Routine Malignant neoplasm of left lung, unspecified part of lung (HCC) 1 Occurrences starting 09/09/2022 until 10/09/2023 [facility] Work Phone: Comment on above: 1 Occurrences starti ng 09/09/2022 until 10/09/2023 SPIROMETRY BASELINE ONLY SPIROME TRY BASELINE ONLY PFT Routine Malignant neoplasm of left lung, unspecified part of lung (HCC) 10/14/2022 12:37 PM EDT [facility] Work Phone: [facility] Payers Date Payer Category Payer Unknown [employer] [id number] 2022-Present [phone] [address] [place] [address] PPO [id number] 1959 Self-pay 1959 Unknown [id number] 1958 Unknown [id number] 1958 Unknown [id number] 1958 Unknown [id number] 1958 Unknown [id number] 1958 Unknown [id number] 1958 Unknown [id number] 1958 Unknown [id number] Social History Date Type Detail Facility Tobacco smoking stat [facility] Tobacco smoking consumption unknown [facility] Start: 1960 Sex Assigned At Not on file [facility] Start: 09-09-2022 End: 10-14-2022 Gender identity Not on file [facility] Start: 09-09-2022 End: 10-14-2022 History of Social function [facility] National Score (1-10 0), lower number is lower risk 59 [facility] Start: 09-27-2022 Tobacco smoking stat [facility] Smokes tobacco daily [facility] History of tobacco use Cigarette Smoker [facility] Start: 09-27-2022 Tobacco use and exposure Smokeless t obacco non-user [facility] Start: 09-27-2022 End: 04-08-2023 Alcohol intake Current drinker of alcohol (finding) [facility] Start: 09-27-2022 Alcohol Comment socially [facility] Clinical Notes 03-23-2022 to 06-20-2023 Telephone Encounter - Purnima Hayes - 06/20/2023 8:27 AM EDTTelephone Encounter - Purnima Hayes - 06/20/2023 8:27 AM EDTTelephone Encounter - Cathy Jovel RN - 06/16/2023 11:47 AM EDT Note Date & Type Note Facility 06-20-2023 Telephone encounter Note Patient is r/s for both appts [facility] 06-20-2023 Miscellaneous Notes Patient is r/s for both appts I also called patient no answer to check on appointments. Call placed to patient due to him cancelling CT that was to be done prior to follow up for Tuesday. CAlled to check status and LM requesting pt CB to reschedule all appts. Cathy Jovel RN documented in this encounter [facility] 06-17-2023 Telephone encounter Note I also called patient no answer to check on appointments. [facility] 06-16-2023 Telephone encounter Note Call placed to patient due to him cancelling CT that was to be done prior to follow up for Tuesday. CAlled to check status and LM requesting pt CB to reschedule all appts. Cathy Jovel RN [facility] 04-09-2023 Note HNO ID: [id number] Author: DON MEJIA MD Service: ? Author Type: Physician Type: Progress Notes Filed: 04/19/2023 06:01 Note Text: Radiation Oncology - Follow Up Note PATIENT NAME: Jaret Grajeda PATIENT DIAGNOSIS/PATIENT IDENTIFICATION: Mr. Grajeda is a 62-year-old gentleman diagnosed with a Stage IB, [id number], non-small cell lung cancer (adenocarcinoma) arising from the left upper lobe of the lung status post biopsy on 08/03/2022 and under the care of Dr. Garber. Staging work-up has included PET/CT from 08/27/2022 confirming hypermetabolic activity in the left upper lobe lung mass with no other concerns for regional or distant disease. He also had pathologic staging of the mediastinum on 09/06/2022 which was negative at stations 2L and 7. He was initially seen in consultation on 09/27/2022 to discuss SBRT as definitive nonoperative management of his early stage lung cancer but was then lost to follow-up after meeting with thoracic surgery and being worked up for potentialsurgical resection. He returned to the radiation medicine clinic wishing to pursue SBRT for his early stage lung cancer. Repeat PET/CT from 01/24/2023 confirms hypermetabolic activity in the 3.1 cm left upper lobe lung mass with no other definite evidence of regional or distant disease. He completed a course of SBRT to the left upper lobe lung lesion on 03/07/2023 (5000 cGy delivered in 4 fractions). Mr. Grajeda returns to clinic today for routine follow-up approximately one month after the completion of his radiation treatments. In the interim, he reports no significant changes in his breathing as he continues to note dyspnea on exertion which is unchanged and feels that his cough is improved. Denies any hemoptysis or chest pain or difficulty swallowing or skin irritation of the treatment area. He has started using nicotine patches which she feels is helping him reduce his tobacco use where he is now down to half a pack per day. He does endorse fatigue which is stable with good appetite and hydration and stable weight. Mr. Grajeda is stable clinically approximately month out from the completion of his SBRT treatments to the left chest with no significant toxicity at this time. I will plan to see him back after his initial posttreatment imaging with CT chest in approximately 2 months. He will follow with Dr. Garber as scheduled. The patient is aware to contact the clinic in the interim should any questions or concerns arise. Thank you for allowing us to participate in the care of this patient. Signed by: Don Mejia MD This document has been created with the use of voice recognition technology. It may contain inaccuracies, misspellings, inaccurate syntax or inappropriate word context that are a result of the inadequacies/shortcomings of said technology/software. [facility] 04-08-2023 History of Present illness Narrative Radiation Oncology - Follow Up Note PATIENT NAME: Jaret Grajeda PATIENT Signed by: Don Mejia MD This document has been created with the use of voice recognition technology. It may contain inaccuracies, misspellings, inaccurate syntax or inappropriate word context that are a result of the inadequacies/shortcomings of said technology/software. documented in this encounter [facility] 03-24-2023 Miscellaneous Notes Call placed to pt to check status. He states he is doing very well. His breathing has maintained it's baseline and he denies any new issues. His energy levels are at his normal. Pt is scheduled for follow up on 04/[address]/FU in June. Cathy Jovel RN documented in this encounter [facility] 03-14-2023 Miscellaneous Notes Patient is scheduled CT chest due in 3 months is pending your approval. Lili Martinez RN documented in this encounter [facility] 03-07-2023 Note HNO ID: [id number] Author: DON MEJIA MD Service: ? Author Type: Physician Type: Progress Notes Filed: 03/17/2023 04:27 Note Text: [facility] Radiation Oncology Department RADIATION ONCOLOGY - SBRT COMPLETION NOTE PATIENT: JADA GRAJEDAOB: 1960 DATES OF TREATMENT: 02/28/23-03/07/23 DIAGNOSIS: Mr. Grajeda is a 62-year-old gentleman diagnosed with a Stage IB, [id number], non-small cell lung cancer (adenocarcinoma) arising from the left upper lobe of the lung status post biopsy on 08/03/2022 and under the care of Dr. Garber. Staging work-up has included PET/CT from 08/27/2022 confirming hypermetabolic activity in the left upper lobe lung mass with no other concerns for regional or distant disease. He also had pathologic staging of the mediastinum on 09/06/2022 which was negative at stations 2L and 7. He was initially seen in consultation on 09/27/2022 to discuss SBRT as definitive nonoperative management of his early stage lung cancer but was then lost to follow-up after meeting with thoracic surgery and being worked up for potential surgical resection. He returned to the radiation medicine clinic wishing to pursue SBRT for his early stage lung cancer. Repeat PET/CT from 01/24/2023 confirms hypermetabolic activity in the 3.1 cm left upper lobe lung mass with no other definite evidence of regional or distant disease. AREA TREATED: Left upper lobe of lung DELIVERED DOSE: 5,000 cGy in 4 fractions, 2 Arcs, SBRT, 6FFF with daily CBCTAND triggered imaging TOTAL: 5,000 cGy in 4 fractions ELAPSED TIME: 7 days. CLINICAL SUMMARY: The patient tolerated course of SBRT to the left chest well with no significant issues. The patient was able to complete treatment as intended without break interruption or modification of prescription plan. The patient will be evaluated in 3-4 weeks for post-radiation follow-up with plans for initial post- treatment imaging with CT chest in approximately three months to assess treatment response. He will follow with Dr. Garber as scheduled. Staff Physician Don Mejia M.D. / KG 44:27 AM Electronically Signed cc: Jennifer Garber MD [address] [facility] [address] [address] [facility], [address] [facility] [address] [address] [facility] 03-07-2023 History of Present illness Narrative [facility] Radiation Oncology Department RADIATION ONCOLOGY - SBRT COMPLETION NOTE PATIENT: JADA GRAJEDAOB: 1960 DATES OF TREATMENT: 02/28/23-03/07/23 DIAGNOSIS: Mr. Grajeda is a 62-year-old gentleman diagnosed with a Stage IB, [id number], non-small cell lung cancer (adenocarcinoma) arising from the left upper lobe of the lung status post biopsy on 08/03/2022 and under the care of Dr. Garber. Staging work-up has included PET/CT from 08/27/2022 confirming hypermetabolic activity in the left upper lobe lung mass with no other concerns for regional or distant disease. He also had pathologic staging of the mediastinum on 09/06/2022 which was negative at stations 2L and 7. He was initially seen in consultation on 09/27/2022 to discuss SBRT as definitive nonoperative management of his early stage lung cancer but was then lost to follow-up after meeting with thoracic surgery and being worked up for potential surgical resection. He returned to the radiation medicine clinic wishing to pursue SBRT for his early stage lung cancer. Repeat PET/CT from 01/24/2023 confirms hypermetabolic activity in the 3.1 cm left upper lobe lung mass with no other definite evidence of regional or distant disease. AREA TREATED: Left upper lobe of lung DELIVERED DOSE: 5,000 cGy in 4 fractions, 2 Arcs, SBRT, 6FFF with daily CBCT& triggered imaging TOTAL: 5,000 cGy in 4 fractions ELAPSED TIME: 7 days. CLINICAL SUMMARY: The patient tolerated course of SBRT to the left chest well with no significant issues. The patient was able to complete treatment as intended without break interruption or modification of prescription plan. The patient will be evaluated in 3-4 weeks for post-radiation follow-up with plans for initial post- treatment imaging with CT chest in approximately three months to assess treatment response. He will follow with Dr. Garber as scheduled. Staff Physician Don Mejia M.D. / KG 44:27 AM Electronically Signed cc: Jennifer Garber MD [address] [facility] [address] [address] [facility], [address] [facility] [address] Via documented in this encounter [facility] 02-28-2023 Note HNO ID: [id number] Author: DON MEJIA MD Service: ? Author Type: Physician Type: Progress Notes Filed: 03/03/2023 06:54 Note Text: Radiation Oncology - On Treatment Review (OTR) Note PATIENT NAME: Jaret Grajeda PATIENT DIAGNOSIS: Mr. Grajeda is a 62-year-old gentleman diagnosed with a Stage IB, [id number], non-small cell lung cancer (adenocarcinoma) arising from the left upper lobe of the lung status post biopsy on 08/03/2022 and under the care of Dr. Garbre. Staging work-up has included PET/CT from 08/27/2022 confirming hypermetabolic activity in the left upper lobe lung mass with no other concerns for regional or distant disease. He also had pathologic staging of the mediastinum on 09/06/2022 which was negative at stations 2L and 7. He was initially seen in consultation on 09/27/2022 to discuss SBRT as definitive nonoperative management of his early stage lung cancer but was then lost to follow-up after meeting with thoracic surgery and being worked up for potential surgical resection. He returned to the radiation medicine clinic wishing to pursue SBRT for his early stage lung cancer. Repeat PET/CT from 01/24/2023 confirms hypermetabolic activity in the 3.1 cm left upper lobe lung mass with no other definite evidence of of regional or distant disease. PROTOCOL: no COURSE: definitive Current dose: 1250 cGy in 1 fx Planned dose: 5000 cGy in 4 fx SUBJECTIVE: Tolerated first fraction of XRT well and reports no significant changes in the time of simulation. He continues to have shortness of breath related to his COPD with cough which is unchanged. PHYSICAL EXAM: Area Assessed: Chest KPS: 70 General Appearance: Alert and oriented. No acute distress. Chest: No respiratory distress. IMAGING/LAB RESULTS: None TOXICITY ASSESSMENT (CTC v4.0): Fatigue: grade 1 - Fatigue relieved by rest Weight loss: grade 0 - No weight loss Nausea:Grade 0 - No Symptoms Radiation Dermatitis:grade 0 - No symptoms Dysphagia: grade 0 - No symptoms Esophageal Pain: Grade 0 - No symptoms Dyspnea: grade 1 (Shortness of breath with moderate exertion) Treatment chart checked: Yes Patient treatment site reviewed and verified:Yes Port films reviewed and current:Yes Medications started: None ASSESSMENT/PLAN: Clinically stable. No signs of toxicity. Continue radiation treatment as planned. We reviewed general precautions/instructions during SBRT treatment to the chest as well as the potential acute toxicities during treatment and their time course. Discussed the importance of a well-balanced diet, hydration, and exercise/activity as tolerated through the course of treatment. Don Mejia MD [facility] 02-12-2023 Note HNO ID: [id number] Author: DON MEJIA MD Service: ? Author Type: Physician Type: Progress Notes Filed: 02/22/2023 04:26 Note Text: Radiation Oncology - Follow Up Note PATIENT NAME: Jaret Grajeda PATIENT DIAGNOSIS/PATIENT IDENTIFICATION: Mr. Grajeda is a 62-year-old gentleman diagnosed with Stage IB, [id number], non-small cell lung cancer (adenocarcinoma) arising from the left upper lobe of the lung status post biopsy on 08/03/2022 and under the care of Dr. Garber. Staging work-up has included PET/CT from 08/27/2022 confirming hypermetabolic activity in the left upper lobe lung mass with no other concerns for regional or distant disease. He also had pathologic staging of the mediastinum on 09/06/2022 which was negative at stations 2L and 7. He was referred to the radiation medicine clinic to have a discussion regarding the potential role of stereotactic body radiation therapy in the definitive and nonoperative management of his early stage lung cancer. INTERVAL HISTORY: Mr. Grajeda returns to clinic today for approximately four months after his consultation on 09/27/2022. At that time, he was to be thoracic surgery due to discusses surgical options prior to making a decision on definitive treatment for his lung cancer. He met with Dr. Blue at [facility] and was recommended a cardiac workup which he has been pursuing over the past few months and ultimately decided against surgery. He now returns to the radiation medicine clinic wishing to pursue stereotactic body radiation therapy. PET/CT was repeated on 01/24/2023 which again showed the FDG avid left upper lobe lung mass now measuring 3.1 cm with no apparent hilar or mediastinal hypermetabolic lymphadenopathy. A subcentimeter spiculated nodule was noted in the right apex. No signs of distant disease were identified. The patient continues to smoke and notes dyspnea on exertion with cough and is not currently using supplemental oxygen. ALLERGIES ALLERGIES No Known Allergies MEDICATIONS: Current Outpatient Medications: metoprolol succinate ER (TOPROL XL) 50 mg 24 hr tablet PHYSICAL EXAM: GENERAL: middle-aged gentleman sitting in chair in no acute distress. KPS: 70 HEENT: NC/AT, anicteric sclera HEART: S1S2 LUNGS: non-labored breathing ABDOMEN: soft MUSCULOSKELETAL: no peripheral edema, moves all extremities. NEURO: no focal deficit; AANDO X3. RADIOLOGIC DATA: PET/CT (01/24/2023) IMPRESSION: 1. HEAD and NECK: No evidence of focal uptake to suggest FDG avid neoplastic process.. 2. CHEST: Left upper lobe FDG avid lung mass decreased in metabolic activity as compared to prior outside PET/CT. Spiculated nodule in the right apex with mild activity slightly increased in size. 3. ABDOMEN/PELVIS: No evidence of focal uptake to suggest FDG avid neoplastic process.. 4. EXTREMITIES/SKELETON: No evidence of focal uptake to suggest FDG avid neoplastic process.. Chest: Left upper lobe FDG avid mass has slightly decreased in uptake as compared to prior outside PET now measuring 3.1 x 3.0 cm with SUV max 7.1 previously 3.2 x 2.4 cm with SUV max 16.9. Spiculated nodule in the right apex 0.7 cm with SUV max 1.1 previously 0.9 cm with SUV max 1.2 Coronary artery and major vessel atherosclerotic calcifications noted. No significant anatomical abnormality to the limits of low dose noncontrast CT scan IMPRESSION: Mr. Grajeda is a 62-year-old gentleman diagnosed with a Stage IB, [id number], non-small cell lung cancer (adenocarcinoma) arising from the left upper lobe of the lung status post biopsy on 08/03/2022 and under the care of Dr. Garber. Staging work-up has included PET/CT from 08/27/2022 confirming hypermetabolic activity in the left upper lobe lung mass with no other concerns for regional or distant disease. He also had pathologic staging of the mediastinum on 09/06/2022 which was negative at stations 2L and 7. He was initially seen in consultation on 09/27/2022 to discuss SBRT as definitive nonoperative management of his early stage lung cancer but was then lost to follow-up after meeting with thoracic surgery and being worked up for potential surgical resection. He now returns today to the radiation medicine clinic wishing to pursue SBRT for his early stage lung cancer. Repeat PET/CT from 01/24/2023 confirms hypermetabolic activity in the 3.1 cm left upper lobe lung mass with no other definite evidence of of regional or distant disease. I spent time with the patient in decision making and discussion regarding the indications for, logistics of, and toxicity of SBRT in this definitive setting. Multiple questions were answered as they arose including a discussion of the mechanism of action of radiation therapy as well as potential causes for normal tissue toxicity. Based upon this discussion, informed consent was obtained, and we agreed to the following: RECOMMENDATIONS: 1. I would recommend a course of (more content not included)... [facility] 02-11-2023 Note HNO ID: [id number] Author: DON MEJIA MD Service: ? Author Type: Physician Type: Progress Notes Filed: 02/27/2023 15:22 Note Text: JARET GRAJEDA [id number] 02/11/2023 [facility] Department of Radiation Oncology Treatment Planning Note For reasons stated in the consult note, Jaret Grajeda is a candidate for radiation therapy. Based on review and interpretation of the relevant diagnostic studies together with the exam findings, Jaret Grajeda was simulated on 02/11/2023 at which time the target volume and/or requisite hi were delineated, as indicated in the simulation note, to be treated according to the prescription. An ITV was created from all the phases of respiratory motion captured by the 4DCT image sets. Motion management allowed for design of patient specific planning target volume and reduced the radiation exposure to normal tissues. The treatment target and organs at risk were contoured on the simulation scan using the fused PET. Special consideration to these and other structures was given in light of the potential for increased toxicities of stereotactic body radiation therapy (SBRT). Pulmonary function testing was reviewed. After reviewing multiple treatment plans with dosimetry, the best plan was approved to deliver the prescribed course of radiation to the target area using inverse planning to allow for the best isodose distribution, treating to the 70.1% isodose line with 6FFF MV and 2 hi. Custom MLC asym jaws for IMRT were the treatment devices used to shape/modify the beams. Limiting dose to normal tissue was confirmed upon review of the calculated dose volume histogram. IMRT planning was used because it best met the dose/volume constraints for the organs at risk for this patient, better than what could be achieved using conventional or 3D planning. The specific dose requirements for the PTV, organs at risk and dose-volume histograms are contained in this treatment plan and/or elsewhere in the medical record. A completed summary of this plan dated 02/25/2023 incorporated herein by reference includes dose, beam arrangements, energy, blocking, isodose distribution, and/or ports and DVH. Electronically Signed Don Mejia M.D. 43:22 PM [facility] 02-11-2023 Note HNO ID: [id number] Author: DON MEJIA MD Service: ? Author Type: Physician Type: Progress Notes Filed: 02/14/2023 22:39 Note Text: JRAET GRAJEDA [id number] 02/11/2023 [facility] Department of Radiation Oncology SBRT CT Simulation Diagnosis/Disease:Malignant neoplasm of upper lobe, left bronchus or lungC34.12 Therapist: Mouna Yeboah Consent: Yes Area: LUNG Procedure: A time-out was conducted and recorded by the therapist. Patient simulated at [facility] for SBRT. Compression device in place, and a 4D CT was conducted. Position: SUPINE Thigh Positioner: 0 With Riser 1 Without Riser 1 Abdominal Cuff: SecureVac Cushion Index to Base @ 58 0 T-Vac Cushion Rt. Side Adjust 221 Tri-Vac Cushion Lt. side Adjust 160 [id number] Pump 160 [id number] Wingboard: Head Pad (B or F) :F Index to Base @ (A-F):C Vertical Height (A-E):E Superior to Inferior: 6 Additional Notes: HANDS HOLDING BASE Immobilization: In order to achieve accurate and reproducible treatments, the patient is to be immobilized with a custom created full body Vacbag device. Contrast: IV Patient marked. Planning: PET CT fusion for target delineation and normal tissue avoidance. (change notes to document fusions as requested by the physician) Assessment/Plan: Patient tolerated simulation procedure well. Treatments will be initiated after treatment planning. Electronically Signed ODN MEJIA M.D. 0:39 PM [facility] 02-11-2023 History of Present illness Narrative JARET GRAJEDA [id number] 02/11/2023 [facility] Department of Radiation Oncology Treatment Planning Note For reasons stated in the consult note, Jaret Grajeda is a candidate for radiation therapy. Based on review and interpretation of the relevant diagnostic studies together with the exam findings, Jaret Grajeda was simulated on 02/11/2023 at which time the target volume and/or requisite hi were delineated, as indicated in the simulation note, to be treated according to the prescription. An ITV was created from all the phases of respiratory motion captured by the 4DCT image sets. Motion management allowed for design of patient specific planning target volume and reduced the radiation exposure to normal tissues. The treatment target and organs at risk were contoured on the simulation scan using the fused PET. Special consideration to these and other structures was given in light of the potential for increased toxicities of stereotactic body radiation therapy (SBRT). Pulmonary function testing was reviewed. After reviewing multiple treatment plans with dosimetry, the best plan was approved to deliver the prescribed course of radiation to the target area using inverse planning to allow for the best isodose distribution, treating to the 70.1% isodose line with 6FFF MV and 2 hi. Custom MLC asym jaws for IMRT were the treatment devices used to shape/modify the beams. Limiting dose to normal tissue was confirmed upon review of the calculated dose volume histogram. IMRT planning was used because it best met the dose/volume constraints for the organs at risk for this patient, better than what could be achieved using conventional or 3D planning. The specific dose requirements for the PTV, organs at risk and dose-volume histograms are contained in this treatment plan and/or elsewhere in the medical record. A completed summary of this plan dated 02/25/2023 incorporated herein by reference includes dose, beam arrangements, energy, blocking, isodose distribution, and/or ports and DVH. Electronically Signed Don Mejia M.D. 43:22 PM documented in this encounter [facility] 01-24-2023 Note HNO ID: [id number] Author: Socrates Mills, RT(R) Service: ? Author Type: Technologist Type: Progress Notes Filed: 01/24/2023 2:35 PM Note Text: Radiology Service Progress Note PATIENT NAME: Jaret Grajeda DATE OF SERVICE: January 24, 2023 TIME: 2:35 PM PATIENT IDENTITY VERIFICATION COMPLETED USING TWO (2) IDENTIFIERS: Name and Date of confirmed by patient verbally. FALL SCREENING: Has the patient had 2 falls in the last year or 1 fall with injury or currently using an Ambulatory Assistive Device (Walker, Cane, Wheelchair, Crutches, etc.)? No PATIENT GENDER DATA: Male PATIENT RELEVANT IMPLANT DATA REVIEWED: Not Applicable RADIOLOGY DEPARTMENT: CT; Exam(s) Completed: Chest PERIPHERAL IV DATA: Site assessment: Clean,Dry and Intact, Site disposition Discontinued SIGNED BY: RT Sharita(R) January 24, 2023 2:35 PM [facility] 01-24-2023 Note HNO ID: [id number] Author: Socrates Mills RT(Stephen) Service: ? Author Type: Technologist Type: Progress Notes Filed: 01/24/2023 2:35 PM Note Text: RADIOLOGY SERVICE PROGRESS NOTE SERVICE DATE: 01/24/2023 SERVICE TIME: 2:34 PM PATIENT IDENTITY VERIFICATION COMPLETED USING TWO (2) STANDARD IDENTIFIERS: Name and Date of confirmed by patient verbally POST EXAM PIV STATUS: Discontinued PROCEDURE TYPE: NM INJECT: PET/CT BODY SCAN. 9.0 mCi F18 FDG. No other medications given.. ADMINISTRATION TIME: 1035 PATIENT DISCHARGED TO: Ambulatory patient, left SD department area. A Diagnostic radioactive procedure has taken place, with no further precautions necessary other than routine body substance precautions. More information regarding radiation safety can be found using this link: [email or web address] SIGNATURE: RT Sharita(R) PATIENT NAME: Jaret Grajeda DATE: January 24, 2023 TIME: 2:34 PM PAGER/CONTACT #: [facility] 01-24-2023 Note HNO ID: [id number] Author: Aide Levy RN Service: ? Author Type: Registered Nurse Type: Progress Notes Filed: 01/24/2023 10:38 AM Note Text: Radiology Service Progress Note DATE OF SERVICE: January 24, 2023 TIME: 10:38 AM PATIENT IDENTITY VERIFICATION COMPLETED USING TWO (2) STANDARD IDENTIFIERS: Name and Date of confirmed by patient verbally. FALL SCREENING: Has the patient had 2 falls in the last year or 1 fall with injury or currently using an Ambulatory Assistive Device (Walker, Cane, Wheelchair, Crutches, etc.)? No EXAM: CT -CONTRAST INDUCED NEPHROPATHY RISK FACTORS: Not applicable CREATININE: No results found for: CREAT , EGFROTH , EGFRAA P.O.C.T. RESULTS: N/A January 24, 2023 TREATMENT: N/A IV SITE: Ambulatory: A peripheral IV was started in the Right antecubital site with a Angio cath: 20 gauge. IV SITE APPEARANCE: Clean,Dry and Intact SIGNATURE: Aide Levy RN PATIENT NAME: Jaret Grajeda DATE: January 24, 2023 TIME: 10:38 AM [facility] 01-13-2023 Miscellaneous Notes Received [facility] Hem[facility]Onc office notes 01/04/23 fron The [facility] Cancer [facility] Record scanned in alycia Zayas asst documented in this encounter [facility] 01-06-2023 Miscellaneous Notes Patient called back is aware of appt date and times Called patient again left message to call me back with appt dates and times Called patient to let him know about PET and CT and he also needs a followup with nicol Blackburn answer left message for him to call me back documented in this encounter [facility] 12-23-2022 Note HNO ID: [id number] Author: Delfina Blue MD, PhD Service: Thoracic Surgery Author Type: Physician Type: Progress Notes Filed: 12/29/2022 12:03 PM Note Text: [place] [id number] [place] [facility] NOTE NAME: JARET GRAJEDA [facility] #: [id number] DATE: 12/23/2022 AGE: 62 PHYSICIAN: Delfina Blue M.D., Ph.D. I attempted to reach out to the patient today through our telemedicine platform. He was recently admitted to the hospital for electrolyte imbalances. I saw him quite sometime ago and he was scheduled to see Radiation Oncology. I have some concern that his suspected left upper lobe tumor is largely going unchecked. He was scheduled for potential simulation in [place] with Dr. Mejia, but somehow has not kept those appointments in check. He did not answer my direct phone call today. It is possible he is being treated out of system for what I suspect it was a stage IB non-small cell lung cancer, but I find no record of that in our system. He does have a progress note from [facility], where he was seen after his recovery from his hospitalization and I think that given that he was compromised recently, radiotherapy should be his treatment. I will attempt to call Dr. Garber and let him know of my thoughts. Delfina Blue M.D., Ph.D. SM:[id number] / [facility] 12-23-2022 Note HNO ID: [id number] Author: Delfina Blue MD, PhD Service: ? Author Type: Physician Type: Progress Notes Filed: 12/23/2022 10:56 AM Note Text: I have read and reviewed the documentation and agree. I wish to add the following findings which have been dictated and will be communicated back to the requesting physician. Delfina Blue MD, PhD [facility] 12-23-2022 Note HNO ID: [id number] Author: Delfina Blue MD, PhD Service: ? Author Type: Physician Type: Progress Notes Filed: 12/23/2022 10:56 AM Note Text: Heart, Vascular AND Thoracic [place] Department of Thoracic Surgery TELEPHONE VISIT (audio only) PROGRESS NOTE This is a telephone encounter initiated for an established patient. The patient, parent or guardian is not originating from a related Evaluation AND Management service provided within the previous 7 days nor leading to an Evaluation AND Management service or procedure within the next 24 hours or soonest available appointment. I have communicated my name and active licensure. The patient's identity and physical location were verified at the time of this visit. Either the patient or their legal employer relations representative has been informed of the risks and benefits of -- and alternatives to -- treatment through a remote evaluation and consents to proceed with the evaluation remotely. Jaret Grajeda has consented to this telephone encounter. 10/14/2022 Office visit - Dr.Sudish Blue IMPRESSION: Fairly good size lesion in the upper division of the left upper lobe, which is quite peripheral and housed within the upper division. There is no evidence of mediastinal spread and the lesion is on the border of being a clinical stage IA versus 1B as this may be a T1c or T2a primary lesion based on size and if there would be visceral pleural involvement. The patient is a marginal surgical candidate. He will try to separate from tobacco and I will move to a provocative heart study. Once these tasks are complete, I will have a better sense whether surgery could be offered and if so, then I would give the option to the patient of surgery or stereotactic radiation therapy. I could support both and the patient understands the risks and benefits of either. I look forward to participating in this gentleman's care and organizing a treatment plan for him in the very near future 12/09/2022 Stress test CONCLUSIONS: 1. SPECT Perfusion Study: Normal. 2. There is no scintigraphic evidence for inducible ischemia. 3. No evidence of scarred myocardium. 4. Left ventricle is normal in size. The left ventricle systolic function is normal. 5. Right ventricle is normal in size. The right ventricle systolic function is normal. 6. This is a low risk scan. Gated Stress FBP Gated Rest FBP LVEF % 58 52 Patient NO SHOW I have reached out to Dr Garber directly and updated him. His office will manage going forward Delfina Blue MD, PhD [facility] 12-23-2022 History of Present illness Narrative I have read and reviewed the documentation and agree. I wish to add the following findings which have been dictated and will be communicated back to the requesting physician. Delfina Blue MD, PhD Heart, Vascular & Thoracic [place] Department of Thoracic Surgery TELEPHONE VISIT (audio only) PROGRESS NOTE This is a telephone encounter initiated for an established patient. The patient, parent or guardian is not originating from a related Evaluation & Management service provided within the previous 7 days nor leading to an Evaluation & Management service or procedure within the next 24 hours or soonest available appointment. I have communicated my name and active licensure. The patient's identity and physical location were verified at the time of this visit. Either the patient or their legal employer relations representative has been informed of the risks and benefits of -- and alternatives to -- treatment through a remote evaluation and consents to proceed with the evaluation remotely. Jaret Grajeda has consented to this telephone encounter. 10/14/2022 Office visit - Dr.Sudish Blue IMPRESSION: Fairly good size lesion in the upper division of the left upper lobe, which is quite peripheral and housed within the upper division. There is no evidence of mediastinal spread and the lesion is on the border of being a clinical stage IA versus 1B as this may be a T1c or T2a primary lesion based on size and if there would be visceral pleural involvement. The patient is a marginal surgical candidate. He will try to separate from tobacco and I will move to a provocative heart study. Once these tasks are complete, I will have a better sense whether surgery could be offered and if so, then I would give the option to the patient of surgery or stereotactic radiation therapy. I could support both and the patient understands the risks and benefits of either. I look forward to participating in this gentleman's care and organizing a treatment plan for him in the very near future 12/09/2022 Stress test CONCLUSIONS: 1. SPECT Perfusion Study: Normal. 2. There is no scintigraphic evidence for inducible ischemia. 3. No evidence of scarred myocardium. 4. Left ventricle is normal in size. The left ventricle systolic function is normal. 5. Right ventricle is normal in size. The right ventricle systolic function is normal. 6. This is a low risk scan. Gated Stress FBP Gated Rest FBP LVEF % 58 52 Patient NO SHOW I have reached out to Dr Garber directly and updated him. His office will manage going forward Delfina Blue MD, PhD documented in this encounter [facility] 12-09-2022 Note HNO ID: [id number] Author: Britany Lynch RN Service: Radiology Author Type: Registered Nurse Type: Progress Notes Filed: 12/09/2022 11:08 AM Note Text: RADIOLOGY SERVICE PROGRESS NOTE SERVICE DATE: 12/09/2022 SERVICE TIME: 10:51 AM PATIENT IDENTITY VERIFICATION COMPLETED USING TWO (2) STANDARD IDENTIFIERS: Name and Date of confirmed by patient verbally and Name and Date of confirmed by identification band PATIENT GENDER DATA: male ALLERGIES: Reviewed and unchanged MEDICATIONS REVIEWED BY: Conference Services Manager and Britany Lynch RN PROCEDURE TYPE: NM STRESS: 0.4 mg of Lexiscan was administered IV at 1106 by Britany Lynch RN. Reversal agent used: None. Expiration date: 06/2024 Lot#: [id number] IV SITE: Ambulatory: A Saline lock was inserted per protocol POST EXAM PIV STATUS: Discontinued PATIENT DISCHARGED TO: Ambulatory patient, left [place] department area. A Diagnostic radioactive procedure has taken place, with no further precautions necessary other than routine body substance precautions. More information regarding radiation safety can be found using this link: [email or web address]%[email or web address] [email or web address] SIGNATURE: Britany Lynch RN PATIENT NAME: Jaret Grajeda DATE: December 09, 2022 TIME: 10:51 AM PAGER/CONTACT #: [facility] 12-09-2022 Note HNO ID: [id number] Author: Demetrice Sumner RT(R) Service: Nuclear Medicine Author Type: Technologist Type: Progress Notes Filed: 12/09/2022 11:07 AM Note Text: RADIOLOGY SERVICE PROGRESS NOTE SERVICE DATE: 12/09/2022 SERVICE TIME: 9:57 AM PATIENT IDENTITY VERIFICATION COMPLETED USING TWO (2) STANDARD IDENTIFIERS: Name and Date of confirmed by patient verbally FALL SCREENING: Has the patient had 2 falls in the last year or 1 fall with injury or currently using an Ambulatory Assistive Device (Walker, Cane, Wheelchair, Crutches, etc.)? Yes, Patient High Risk for Falls What interventions were put in place to prevent falls during this visit? [place] Risk Wristband Applied, Instructed Patient to Call for Help if Needed, Offered Assistance with Transfers/Clothing, Instructed Patient to Remain Seated (Not on Exam Table) Until Exam, and Escorted to/from Restroom PATIENT GENDER DATA: .male ALLERGIES: Reviewed and unchanged MEDICATIONS REVIEWED: Yes PATIENT RELEVANT IMPLANT DATA REVIEWED: Not Applicable CREATININE: No results found for: CREAT , EGFROTH , EGFRAA P.O.C.T. RESULTS: N/A December 09, [address] PERFORMED: No IV SITE: Ambulatory: A peripheral IV was started in the Right wrist with a Angio cath: 22 gauge. POST EXAM PIV STATUS: Discontinued PROCEDURE TYPE: SD Stress: 13.0mCi Fs50h-Wvievvg was administered IV for Rest Imaging at 0955 by RT Stanislav(R). 31.8 mCi Zn27z-Kulefbn was administered IV for Stress Imaging at 1106 by demetrice sumner [facility]. ADMINISTRATION TIME: PATIENT DISCHARGED TO: Ambulatory patient, left [place] department area. A Diagnostic radioactive procedure has taken place, with no further precautions necessary other than routine body substance precautions. More information regarding radiation safety can be found using this link: [email or web address]%20Med [email or web address] SIGNATURE: RT Stanislav(R) PATIENT NAME: Jaret Grajeda DATE: December 09, 2022 TIME: 9:57 AM PAGER/CONTACT #: [facility] 11-24-2022 Miscellaneous Notes Thanks for the update - please let Dr. Garber's office know as well. Don Update- pt rescheduled stress test and is now scheduled for this and appt with Dr Blue on 12/09. Cathy Jovel RN Call again placed to pt to get update. Voicemail was left requesting pt to call with update. Dr Blue/Team- is there any update from your team regarding the scheduling of patient's stress test/cardiac clearance? Thank you! Cathy Jovel RN Call placed to pt to verify status. He states that stress test has not been scheduled yet. He needs to contact his Dr office to get this arranged. Pt states he plans to call tomorrow to get this scheduled. Cathy Jovel RN Cxed appointment let me know when I need to r/s thanks Thanks! Don Spoke to pt and he is waiting for appts to be set up locally for cardiac clearance by Dr Blue's office. Tiff- Sim can be cancelled for today. We will keep an eye on surgical plan and reschedule SIM when we know plan. Pt is aware and in agreement with waiting to reschedule. Cathy Jovel RN documented in this encounter [facility] 10-15-2022 Note HNO ID: [id number] Author: Delfina Blue MD, PhD Service: ? Author Type: Physician Type: Progress Notes Filed: 10/15/2022 4:54 PM Note Text: [facility] STAFF PHYSICIAN NOTE OF PERSONAL INVOLVEMENT IN CARE I have reviewed the documentation obtained and documented by the Resident and I have personally performed a face to face assessment of the patient and have personally participated in the rosado components of the visit which includes medical decision making.. I have discussed the case and management of the patient's care. I wish to add the following findings which have been dictated and will be communicated back to the requesting physician. STAFF PHYSICIAN: Delfina Blue MD, PhD DATE OF SERVICE: October 14, 2022 [facility] 10-14-2022 Note HNO ID: [id number] Author: Fernando Noel MD Service: ? Author Type: Fellow Type: Progress Notes Filed: 10/15/2022 4:54 PM Note Text: [facility] THORACIC SURGERY OUTPATIENT CONSULT NOTE Jaret Grajeda [id number] Requesting Provider: [facility] [place] Thoracic Physician: Delfina Blue MD Chief Complaint: lung cancer Impression: Jaret Grajeda is a 62 yoM current heavy 45PYS with newly diagnosed [id number] TRISTEN adenoCA. EBUS with negative level 7 and nonDx level 2 nodes. Saw rad onc who indicated that radiotherapy is an option; here for discussion of surgical options. PFTs likely adequate for lobectomy but 6 min walk test significantly less than predicted and functional limitations with KILLIAN. Plan: - Obtain stress echo - Surgery vs radiation pending results of echo and pt preference HPI: Jaret Grajeda is a 62 year old White male current heavy 45PYS with PMH HTN here for an opinion regarding management of newly diagnosed TRISTEN adenoCA. Presented to hospital with dehydration and found on imaging to have a TRISTEN nodule, PET-avid to SUV 17, measuring between 2.8 and 3.1cm without mediastinal LAD. Underwent EBUS, primary +adenoCA with negative level 7 and nonDx level 2 nodes. Saw rad onc who indicated that radiotherapy is an option; here for discussion of surgical options. Function testing today showing FEV1 72 DLCO (uncorr) 68. 6 min walk 850ft without desat, but does note only being able to walk 1 block without stopping to catch his breath. Continues to smoke 1 ppd. ECOG Score: 1 Living arrangement: Lives with family/friend Functional status: Independent Unintentional weight loss over last 3 months: No PAST MEDICAL HISTORY: PAST MEDICAL HISTORY Diagnosis Date HTN (hypertension) PAST SURGICAL HISTORY: PAST SURGICAL HISTORY Procedure Laterality Date APPENDECTOMY TONSILLECTOMY AND ADENOIDECTOMY FAMILY HISTORY: FAMILY HISTORY Problem Relation Age of Onset Breast Cancer Mother SOCIAL HISTORY: Social History Tobacco Use Smoking status: Every Day Packs/day: 1.00 Years: 47.00 Additional pack years: 0.00 Total pack years: 47.00 Types: Cigarettes Smokeless tobacco: Never Substance Use Topics Alcohol use: Yes Comment: socially Drug use: Not Currently MEDICATIONS: Prior to Admission Medications: metoprolol succinate ER (TOPROL XL) 50 mg 24 hr tablet Take 1 tablet by mouth every 12 hours. ALLERGIES: ALLERGIES No Known Allergies Chemical Exposure: No Asbestos Exposure No COMPLETE REVIEW OF SYSTEMS Constitutional: No weight loss, malaise or fevers. HEENT: Negative for frequent or significant headaches Resp: Positive for shortness of breath on exertion Cardiovascular: Negative for chest pain, leg swelling or palpitations GI: Negative for abdominal discomfort, blood in stools or black stools or change in bowel habits : No history of dysuria, frequency, or incontinence Endo: Negative for cold or heat intolerance, polyuria, polydipsia and goiter Heme/Lymph: Negative for prolonged bleeding, bruising easily or swollen nodes Neurologic: No history or headaches, syncope, paralysis, seizures or tremors Integumentary: Negative for lesions, rash, and itching. Additional systems reviewed: No additional systems reviewed PHYSICAL EXAM BP 180/110[pt is not symptomatic; manual bp[ Pulse 117[manual[ Temp (Src) 97.5 (Oral) Resp 14 Ht 5' 8.114 (1.73m) Wt 162 lb (73.5kg) SpO2 96% BMI 24.55 kg/(m2). Constitutional: Thin HEENT: EOM's intact Resp: Clear Cardiovascular: Regular rate AND rhythm GI: Soft Integumentary: Warm Musculoskeletal: No deformities Neurological/Psychiatric: Oriented to time, place AND person Additional systems reviewed: No additional systems reviewed DATA: Radiology: see scanned images I have personally reviewed the following images/data: CT scan, Pathology, and PFT/screening alisha Outside Paper Medical Records Review personally performed by: Martin Noel SIGNATURE: Fernando Noel MD DATE of SERVICE: 10/14/2022 TIME of SERVICE: 3:57 PM [facility] 10-14-2022 Note HNO ID: [id number] Author: Ana Steward RRT Service: ? Author Type: Registered Resp Therapist Type: Procedures Filed: 10/14/2022 1:26 PM Note Text: Attestation signed by Neel Moseley MD at 10/14/2022 9:29 PM The patient completed the six minute walk test with 3 stops. Total Duration Of The Stops (seconds): 13. The patient required Room Air to complete the test. The distance the patient walked in six minutes is extremely reduced. This is the first time patient takes the six minute walk test. The patient perceived their dyspnea during the six minute walk test to be 3-Moderate on the modified Moustapha scale. The patient perceived their fatigue during the six minute walk test to be 3-Moderate on the modified Moustapha scale. I have reviewed the findings and made appropriate revisions as needed. SIGNATURE: Neel Moseley MD PATIENT NAME: Jaret Grajeda DATE: October 14, 2022 TIME: 9:29 PM RESPIRATORY THERAPY SIX MINUTE WALK TEST OXIMETRY REPORT Six Minute Walk Test for This Encounter Oxygen Device Liters FIO2 SpO2% HR Activity Feet Speed (MPH) Flag R/A 98 98 Resting R/A 99 118 Six Minute Walk 850 1.6 R/A 99 103 Recovery 1 minute post R/A 99 99 Recovery 2 minute post R/A 98 96 Recovery 3 minute post General Information Height Weight Smoking Status Pulse Oximetry Site Oximeter Pre Blood Pressure Post Blood Pressure Total Time Spent (min) 173 cm (5' 8.11 ) 73.5 kg (162 lb) Current Smoker Forehead Jennyimo 180/98 208/112 30 _ Distance Walked (meters) Distance Walked (feet) Male Predicted Walk Distance (feet) Male Lower Limit of Normal (feet) Male % Predicted Total Duration Of The Stops (seconds) 259.08 850 1804.46 1302.46 47.1 13 _ Lowest SpO2 During 6 Minute Walk Pre-Moustapha Dyspnea Rating Pre-Moustapha Fatigue Rating Post Moustapha Dyspnea Rating Post Moustapha Fatigue Rating O2 Supply Carrier Walking Assistance/Device 98 % 2 2 3 3 -- None Six Minute Walk Trend (Previous Encounters) None SIGNATURE: Ana Steward RRT PATIENT NAME: Jaret Grajeda DATE: October 14, 2022 TIME: 1:26 PM _ Comments: B/P 5min post 185/98 [facility] 10-14-2022 Note HNO ID: [id number] Author: Delfina Blue MD, PhD Service: Thoracic Surgery Author Type: Physician Type: Progress Notes Filed: 10/18/2022 7:56 PM Note Text: [place] [address] [place] DEPARTMENT OF THORACIC AND CARDIOVASCULAR SURGERY NAME: JARET GRAJEDA [facility] #: [id number] DATE: 10/14/2022 AGE: 62 PHYSICIAN: Delfina Blue M.D., Ph.D. I had the sincere pleasure of seeing the patient in my Thoracic Surgery Clinic. This very engaging 61-year-old man was seen today for an opinion regarding a newly diagnosed left upper lobe non-small cell lung cancer. He is still an active smoker, has an extensive tobacco use history, which is in excess of 50 pack year. The patient was recently hospitalized for dehydration and depression after family member . During this time, the patient recovered from this process, but a CT scan was performed and an incidental left upper lobe lesion was identified. Subsequent workup suggests non-small cell lung cancer. The patient has been referred to me for my thoughts regarding treatment options. The patient has also seen the Radiation Oncology team. The patient because of his long-time smoking status is fairly debilitated. He has a shuffling gait. When seen, he seems somewhat anxious. He walked only 850 feet at 1.6 miles an hour and had mild dyspnea. He did not desaturate. The patient had pulmonary function, which suggest mild obstructive physiology and moderately depressed gas exchange. The patient does have a tremor that is evident. The lesion itself is spiculated and a PET scan, which I have independently reviewed demonstrates profound FDG avidity within the lesion. The lesion is quite peripheral and up against the chest wall and what I suspect is rib 3 on the left side. It is in the upper division of the left upper lobe. IMPRESSION: Fairly good size lesion in the upper division of the left upper lobe, which is quite peripheral and housed within the upper division. There is no evidence of mediastinal spread and the lesion is on the border of being a clinical stage IA versus 1B as this may be a T1c or T2a primary lesion based on size and if there would be visceral pleural involvement. The patient is a marginal surgical candidate. He will try to separate from tobacco and I will move to a provocative heart study. Once these tasks are complete, I will have a better sense whether surgery could be offered and if so, then I would give the option to the patient of surgery or stereotactic radiation therapy. I could support both and the patient understands the risks and benefits of either. I look forward to participating in this gentleman's care and organizing a treatment plan for him in the very near future. Delfina Blue M.D., Ph.D. :[id number] /[id number] [facility] 10-14-2022 Procedure note Associated Ord er(s): SIX MINUTE WALK RESPIRATORY THERAPY SIX MINUTE WALK TEST OXIMETRY REPORT Six Minute Walk Test for This Encounter Oxygen Device Liters FIO2 SpO2% HR Activity Feet Speed (MPH) Flag R/A 98 98 Resting R/A 99 118 Six Minute Walk 850 1.6 R/A 99 103 Recovery 1 minute post R/A 99 99 Recovery 2 minute post R/A 98 96 Recovery 3 minute post General Information Height Weight Smoking Status Pulse Oximetry Site Oximeter Pre Blood Pressure Post Blood Pressure Total Time Spent (min) 173 cm (5' 8.11 ) 73.5 kg (162 lb) Current Smoker Forehead Masimo 180/98 208/112 30 _ Distance Walked (meters) Distance Walked (feet) Male Predicted Walk Distance (feet) Male Lower Limit of Normal (feet) Male % Predicted Total Duration Of The Stops (seconds) 259.08 850 1804.46 1302.46 47.1 13 _ Lowest SpO2 During 6 Minute Walk Pre-Moustapha Dyspnea Rating Pre-Moustapha Fatigue Rating Post Moustapha Dyspnea Rating Post Moustapha Fatigue Rating O2 Supply Carrier Walking Assistance/Device 98 % 2 2 3 3 -- None Six Minute Walk Trend (Previous Encounters) None SIGNATURE: Ana Steward RRT PATIENT NAME: Jaret Grajeda DATE: October 14, 2022 TIME: 1:26 PM _ Comments: B/P 5min post 185/98 Associated attestation - Neel Moseley MD - 10/14/2022 9:29 PM EDT The patient completed the six minute walk test with 3 stops. Total Duration Of The Stops (seconds): 13. The patient required Room Air to complete the test. The distance the patient walked in six minutes is extremely reduced. This is the first time patient takes the six minute walk test. The patient perceived their dyspnea during the six minute walk test to be 3-Moderate on the modified Moustapha scale. The patient perceived their fatigue during the six minute walk test to be 3-Moderate on the modified Moustapha scale. I have reviewed the findings and made appropriate revisions as needed. SIGNATURE: Neel Moseley MD PATIENT NAME: Jaret Grajeda DATE: October 14, 2022 TIME: 9:29 PM documented in this encounter [facility] 09-28-2022 Note HNO ID: [id number] Author: Don Mejia MD Service: ? Author Type: Physician Type: Progress Notes Filed: 10/06/2022 6:08 AM Note Text: Radiation Oncology - New Patient/Consult Note PATIENT NAME: Jaret Grajeda PATIENT REQUESTING PHYSICIAN: Jennifer Garber MD DIAGNOSIS: Stage IB, [id number], non-small cell lung cancer (adenocarcinoma) arising from the left upper lobe of the lung. PATIENT IDENTIFICATION: This patient was seen in the Department of Radiation Oncology at the [facility] with Dno Mejia MD. He was accompanied today by his family. Final recommendations will be communicated back to the requesting physician by way of the shared medical record, or letter to requesting physician via [place] mail. HISTORY OF PRESENT ILLNESS: Mr. Grajeda is a 62-year-old gentleman from [place], [place] and heavy tobacco user who was recently admitted at the hospital with generalized weakness and failure to thrive. Chest x-ray noted a left upper lobe lung mass and subsequent CT of the chest from 07/27/2022 described a 3.1 cm mass within the left upper lobe of the lung concerning for malignancy with no additional nodules or mediastinal/hilar lymphadenopathy appreciated. Was discharged and underwent an IR guided biopsy of the left upper lobe lung mass on 08/03/2022 which was consistent with moderately differentiated invasive adenocarcinoma consistent with lung primary. He met with Dr. Garber for further evaluation and treatment recommendations. This included PET/CT from 08/27/2022 which confirmed hypermetabolic activity in the left upper lobe lung mass with no FDG avidity in the mediastinum/hilum or distantly concerning for metastatic disease. He also underwent a bronchoscopy/EBUS on 09/06/2022 for pathologic staging of the mediastinum which was negative at station 2L and 7. He is referred today to the radiation medicine clinic to have a discussion regarding the potential role of stereotactic body radiation therapy in the definitive and nonoperative management of his early stage lung cancer. He is also scheduled to meet with Dr. Blue on 10/14/2022 to discuss his surgical treatment options. INTERVAL/HISTORY/REVIEW OF SYSTEMS: Patient denies any previous diagnosis of COPD or emphysema and reports dyspnea on exertion which has slightly worsened recently with a persistent cough which is unchanged. He denies any substantial change in his breathing recently. He denies any hemoptysis or chest pain or difficulty swallowing. He does note substantial weight loss and poor appetite over the past several months but feels that this has leveled off at this point. He continues to smoke 1 pack/day. He is chronic joint pains but otherwise denies any recent fevers/chills, new headaches, difficulty with speech/swallowing, chest pain/palpitations, abdominal pain, nausea/vomiting, change in bowel/urinary function, difficulty with gait/balance. The remainder of the review of systems was performed and was otherwise non-contributory except as described above. PAST MEDICAL HISTORY: PAST MEDICAL HISTORY Diagnosis Date HTN (hypertension) PAST SURGICAL HISTORY: PAST SURGICAL HISTORY Procedure Laterality Date APPENDECTOMY TONSILLECTOMY AND ADENOIDECTOMY FAMILY HISTORY: FAMILY HISTORY Problem Relation Age of Onset Breast Cancer Mother SOCIAL HISTORY: Mr. Grajeda is , has 1 child, and lives in the [place], [place] area. 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 He reports an approximate [id number] history of smoking and currently smokes a pack per day. He also reports consuming 5-6 beers a day. RADIATION HISTORY: The patient denies any history of therapeutic radiation. ALLERGIES: ALLERGIES No Known Allergies MEDICATIONS: Current Outpatient Medications: metoprolol succinate ER (TOPROL XL) 50 mg 24 hr tablet PHYSICAL EXAMINATION: GENERAL: Middle-aged gentleman sitting in chair, in no acute distress. VITALS: BP 194/118[repeat 197/108[ Pulse 78 Temp 97.4 Resp 18 Ht 5' 9 (1.75m) Wt 163 lb 9.6 oz (74.2kg) SpO2 98% BMI 24.15 kg/(m2). KPS: 80 HEENT: NC/AT, anicteric sclera HEART: S1S2 LUNGS: non-labored breathing ABDOMEN: soft MUSCULOSKELETAL: no peripheral edema, moves all extremities. NEURO: no focal deficit; AANDO X3. DIAGNOSTIC DATA: PFTs (08/26/2022) PATHOLOGIC DATA: 09/06/2022 Final Diagnosis A. Lymph node, 2L, fine needle aspiration: - Non-diagnostic due to scant cellularity - No cellular evidence of lymph node B. Lymph node, station 7, fine needle aspiration: - Negative for malignancy - Cellular evidence of lymph node 08/03/2022 RADIOLOGIC DATA: CT Chest (07/27/2022) PET/CT (08/27/2022) IMPRESSION: Mr. Grajeda is a 62-year-old gentleman recently diagnosed with Stage IB, [id number], non-small cell lung cancer (adenocarcinoma) arising from the left upper lobe of the jelena (more content not included)... [facility] 09-27-2022 History of Present illness Narrative Images from the original note were not included. Radiation Oncology - New Patient/Consult Note PATIENT NAME: Jaret Grajeda PATIENT Signed: Don Mejia MD I spent a total of 60 minutes on the date of the service which included preparing to see the patient, [id number] patient care, and counseling and educating the patient/family/caregiver. This document has been created with the use of voice recognition technology. It may contain inaccuracies, misspellings, inaccurate syntax or inappropriate word context that are a result of the inadequacies/shortcomings of said technology/software. documented in this encounter [facility] 09-27-2022 Note Education (DARRYL) JARET GRAJEDA ([id number]) 1960 M Date Time Provider Department 09/27/22 LIIL MARTINEZ Reason for Visit: Patient Education [91] Visit Notes: >> Lili Martinez LPN Mon Sep 27, 2022 12:26 PM Status: Signed Radiation Therapy - Patient Education Note PATIENT NAME: Jaret Grajeda PATIENT September 27, 2022 [facility] FACILITY/LOCATION: [facility] READINESS TO LEARN Cognitive Ability: Alert and oriented Motivation to learn: Interested Family Support: High - Very involved in pt care Instruction provide to: Patient and Daughter Patient learns best by: Multiple Methods Factors effecting learning: None Physical limitations effecting learning: None LEARNING RESPONSE Diagnosis: Pt scheduled for simulation for radiation therapy to left lung. Education Topic/Teaching Points: Radiation therapy, Side effects, and OTV: Method of instruction: Verbal instruction Patient /Family response: Patient and family verbalized understanding of radiation treatments, side effects, OTV, and transportation. Follow-up plan: Recommend - Recommend continued instruction and follow up as directed Supplemental material: Informational handouts on discussion on SBRT to the lung. Referral (recommendation): None, Pt denied need for social work, van service, and polarity tester. Was approved? No Signed by: Lili Martinez LPN During your visit today, we recorded the following information about you: Allergies As of Date: 09/27/2022 (No Known Allergies) Date Reviewed: 09/27/2022 Reviewed by: Lili Martinez LPN - Fully Assessed Prescriptions as of 09/27/2022 - metoprolol succinate ER (TOPROL XL) 50 mg 24 hr tablet Take 1 tablet by mouth every 12 hours. Encounter Status:Closed by LILI MARTINEZ on 09/27/22 [facility] 09-27-2022 Miscellaneous Notes Thanks for tristen Ochoa Offered Bakari an appointment with Dr Blue on 10/05 he will not take appointment he stated that he has someone taking him on the and discussed with him daughter they would like to keep appt as scheduled. documented in this encounter [facility] 09-27-2022 Nurse Note Radiation Therapy - Patient Education Note PATIENT NAME: Jaret Grajeda PATIENT September 27, 2022 [facility] FACILITY/LOCATION: [facility] READINESS TO LEARN Cognitive Ability: Alert and oriented Motivation to learn: Interested Family Support: High - Very involved in pt care Instruction provide to: Patient and Daughter Patient learns best by: Multiple Methods Factors effecting learning: None Physical limitations effecting learning: None LEARNING RESPONSE Diagnosis: Pt scheduled for simulation for radiation therapy to left lung. Education Topic/Teaching Points: Radiation therapy, Side effects, and OTV: Method of instruction: Verbal instruction Patient /Family response: Patient and family verbalized understanding of radiation treatments, side effects, OTV, and transportation. Follow-up plan: Recommend - Recommend continued instruction and follow up as directed Supplemental material: Informational handouts on discussion on SBRT to the lung. Referral (recommendation): None, Pt denied need for social work, van service, and polarity tester. Was approved? No Signed by: Lili Martinez LPN documented in this encounter [facility] 09-21-2022 Miscellaneous Notes Patient called back he is scheduled for Tuesday per his request. Called patient again to schedule tiffany no answer 09/06/22 EBUS results are available in Care Everywhere. Thanks Lili Martinez LPN Referral was made by Dr. Garber and is important to keep. According to the chart he was also supposed to follow-up with Dr. Candelaria in [place] for bronchoscopy/EBUS for pathologic staging of his mediastinum which will be important for treatment decision-making. Thanks! Don I attempted to call Jaret regarding his missed appt for consult today but there was no answer. Today is the /4th time he has no showed for his consult with Dr. Mejia. I notified Shilpa with Dr. Garber's office of the above. I also notified her that Jaret is scheduled for PFT's and a consult with Dr. Blue on 10/14/22 but I'm not sure who made the referral. The appt was scheduled 09/16/22. She said she attempted to call him the last time we notified her of his missed appt but there was no answer. She said Jaret has an appt with Dr. Garber next week. Lili Martinez LPN documented in this encounter [facility] 09-16-2022 Miscellaneous Notes Left date and time of apt for patient. Sent via [employer] - [id number]. Th, 10/14/2022 at [place] PFTs at 12:30pm/1pm/1:15pm Th, 10/14/2022 at [facility] Consult w/ Dr. Blue at 3:40pm documented in this encounter [facility] 09-09-2022 Miscellaneous Notes Images from the original note were not included. Thoracic Surgery Consultation - review of records for appointment scheduling Received medical records from the office of Wade Jones Sr, MD [address] [facility] [address] Patient is being referred to Unspecified/First Available by Wade Jones Sr. for Lung Cancer Outside hospital records scanned /Care Everywhere Pathology: 09/06 ebus Final Diagnosis A. Lymph node, 2L, fine needle aspiration: - Non-diagnostic due to scant cellularity - No cellular evidence of lymph node B. Lymph node, station 7, fine needle aspiration: - Negative for malignancy - Cellular evidence of lymph node Procedures: 09/06 [facility] 08/13/22 ct guided bx Imaging . PET/CT: 08/27/22 CT (chest) 07/27/22 Cardiopulmonary Testing . PFT's/Six: Cardiac: 07/28/22 echo Office Notes/Consults 08/19 hem onc Assessment and Plan: Diagnoses and all orders for this visit: Primary adenocarcinoma of left lung (CMS/HCC) Tobacco use Plan: - Plan for EBUS, for staging based on mass size. Tentatively next week. - Follow up with oncology for NSCLC treatment. - Patient will need PFT to assess lung function once Bx is done. History of: No family history on file. No past medical history on file. No past surgical history on file. Request consult with dr blue pft/dlco/ six min walk Socrates Pastor, RN LOCAL PATIENT Received Fax from Dr. Wade Jones Jaret Grajeda is being referred to Delfina Blue MD, PhD or Zbigniew Wilkinson M.D. by Wade Jones Sr, MD [address] [place] [place] [address] Patient diagnosis/Reason for consult: Lung Cancer Referral triage process explained: Yes Patient will receive a call from Thoracic NPM after triage review with surgeon to discuss any additional testing and/or consults that will be scheduled. Pt will then receive a call from our scheduling office for scheduling. Please call pt at [phone]. Patient was informed consultation could be at [place] or [facility] [place]: No Patient Registration: Registration complete/updated: Yes Insurance card(s) scanned in [facility] with in the past year: Yes: Date: 08/26/22 Pt's MyChart is Pending. Ok to communicate to pt via [employer] not asked Medical Records: Records in [facility] (internal CC records): No Imaging in [facility] (internal CC records): No Care Everywhere - queried yes, downloaded Yes Linked Outside Organizations (list):[facility] Records Requested: yes Date: August 26, 2022 Outside Hospital(s) requested records from: Dr. Wade Jones, Dr. Garber Received: Yes Uploaded: Yes. Waiting on additional records: No. Missing (list): n/a OS Pathology Slides Requested: no Date: N/A Outside Hospital(s) slides requested from: n/a OS Radiology Imaging Requested: yes Date: August 26, 2022 Outside Hospital(s) requested imaging from: [facility]. Imaging will be received via Electronic Transfer Received: Yes Imaging uploaded: Yes Waiting on additional: No. Missing (list): n/a Additional providers added to Care Teams: Yes Additional Notes/Comments: n/a Enct routed to: Thoracic NPM for Triage Jeremiah Gibbs, warehouse administrator documented in this encounter [facility] 09-09-2022 Miscellaneous Notes I left a message for Jaret to call the office conner regarding his missed appointment for consult with Dr. Mejia today. This is twice that he's no showed to the scheduled consult. I notified Shilpa with Dr. Garber's office of the above as well. Lili Martinez LPN documented in this encounter [facility] 09-06-2022 Note Patient: Jaret Grajeda Procedure Summary Date: 09/06/22 Room / Location: [facility] Main Operating Room Anesthesia Start: 1244 Anesthesia Stop: 1357 Procedure: BRONCHOSCOPY Diagnosis: Primary adenocarcinoma of left lung (CMS/HCC) Scheduled Providers: Chinyere Candelaria MD; James Johnson MD; ARETHA Yang Responsible Provider: James Johnson MD Anesthesia Type: general ASA Status: 3 Anesthesia Type: general Vitals Value Taken Time BP 152/91 09/06/22 1440 Temp 36.5 ???C (97.7 ???F) 09/06/22 1355 Pulse 61 09/06/22 1441 Resp 16 09/06/22 1440 SpO2 86 % 09/06/22 1441 Vitals shown include unvalidated device data. Anesthesia Post Evaluation Patient location during evaluation: PACU Patient participation: complete - patient participated Level of consciousness: awake and alert Pain score: 0 Pain management: adequate Airway patency: patent Cardiovascular status: hemodynamically stable Respiratory status: room air and nonlabored ventilation Hydration status: euvolemic Patient is hemodynamically stable and is able to be discharged from PACU per anesthesia protocol. There were no known notable events for this encounter. [facility] 09-06-2022 Note Airway Date/Time: 09/06/2022 12:57 PM Urgency: elective General Information and Staff Patient location during procedure: OR Anesthesiologist: James Johnson MD Performed: anesthesiologist Indications and Patient Condition Indications for airway management: anesthesia Spontaneous Ventilation: absent Sedation level: deep Preoxygenated: yes Mask difficulty assessment: 1 - vent by mask Final Airway Details Final airway type: endotracheal airway Successful airway: ETT Cuffed: yes Successful intubation technique: video laryngoscopy Facilitating devices/methods: intubating stylet Endotracheal tube insertion site: oral Blade: [place] Blade size: #3 ETT size (mm): 8.0 Cormack-Lehane Classification: grade I - full view of glottis Placement verified by: chest auscultation and capnometry Measured from: lips ETT to lips (cm): 22 Number of attempts at approach: 1 Number of other approaches attempted: 0 [facility] 09-06-2022 Note Patient: Jaret Grajeda Procedure Summary Date: 09/06/22 Room / Location: [facility] Main Operating Room Anesthesia Start: 1244 Anesthesia Stop: Procedure: BRONCHOSCOPY Diagnosis: Primary adenocarcinoma of left lung (CMS/HCC) Scheduled Providers: Chinyere Candelaria MD; James Johnson MD; ARETHA Yang Responsible Provider: James Johnson MD Anesthesia Type: general ASA Status: 3 Anesthesia Post Transport Note Transport to: PACU O2 Route: nasal cannula Oxygen Flow (L/min): 3 Patient Monitor: direct observation Transport: uneventful Patient condition is: stable [facility] 09-06-2022 Note Patient: Jaret Grajeda Procedure Information Date/Time: 09/06/22 1200 Scheduled providers: Chinyere Candelaria MD; James Johnson MD; ARETHA Yang Procedure: BRONCHOSCOPY Location: [facility] Main Operating Room Relevant Problems No relevant active problems Clinical information reviewed: Tobacco Allergies Meds Problems Med Hx Surg Hx Fam Hx Physical Exam Airway Mallampati: II TM distance: >3 FB Neck ROM: full Cardiovascular - normal exam Dental - normal exam Pulmonary Abdominal - normal exam Other findings: Current smoker; outside echo EF 55-60%, diastolic function not evaluated. Anesthesia Plan ASA 3 general The patient is a current smoker. Patient was previously instructed to abstain from smoking on day of procedure. Patient did not smoke on day of procedure. intravenous induction Anesthetic plan and risks discussed with patient. Plan discussed with 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 Additional Equipment Requests [facility] 08-19-2022 Note Attestation signed by Chinyere Candelaria MD at 08/20/2022 4:20 PM Total time spent on day of encounter: 25 minutes Attending attestation: GC: I personally spoke with this patient via telephone on the day of the encounter, performed the rosado portion(s) of the service and participated in the management and confirm the fellow's documentation. Physical examination was not performed and may limit some portions of the clinical encounter. Please note there may be an additional personal documentation from me. Pulmonary Clinic Telemedicine Visit Patient: Jaret Grajeda Age: 62 y.o. : 1960 Account No.: [id number] Referring physician: Chief complaint: Lung mass, newly diagnosed NSCLC HPI Jaret Grajeda is a 62 y.o. male with medical Hx of alcohol use disorder, tobacco use, recently admitted for generalized weakness, found to have left upper lobe mass, s/p IR guided Bx, which confirmed NSCLC, adenocarcinoma, genetic profile unavailable. He was referred to the clinic for EBUS staging. He reports chronic cough, occasional sputum production, clear/green in color. He has been having Wt loss and poor appetite. Patient has been long standing smoker, for years. No family Hx of Ca. CT scan showing 3 cm left upper lobe mass. No significant lymphadenopathy. Past Medical History: Diagnosis Date Anemia, unspecified Cancer of upper lobe of left lung (CMS/HCC) Past Surgical History: Procedure Laterality Date LUNG BIOPSY 07/2022 Allergies: Patient has no allergy information on record. Prior to Admission medications Medication Sig Start Date End Date Taking? Authorizing Provider folic acid (Folvite) 1 mg tablet Take 1,000 mcg by mouth in the morning. 08/01/22 Historical Provider, furosemide (Lasix) 40 mg tablet Take 40 mg by mouth in the morning. 08/01/22 Historical Provider, magnesium oxide (Mag-Ox) 400 mg (241.3 mg magnesium) tablet Take 1 tablet by mouth in the morning and at bedtime. 08/01/22 Historical Provider, metoprolol succinate XL (Toprol-XL) 50 mg 24 hr tablet Take 50 mg by mouth in the morning and at bedtime. 05/27/22 Historical Provider, potassium chloride CR (K-Tab) 20 mEq ER tablet Take 20 mEq by mouth in the morning. 08/01/22 Historical Provider, spironolactone (Aldactone) 50 mg tablet Take 50 mg by mouth in the morning. 08/01/22 Historical Provider, Vitamin B-1, mononitrate, 100 mg tablet Take 1 tablet by mouth in the morning. 09/22/21 Historical Provider, Social history: reports that he has been smoking cigarettes. He has a 40.00 pack-year smoking history. He does not have any smokeless tobacco history on file. He reports current alcohol use of about 42.0 standard drinks of alcohol per week. Drug use questions deferred to the physician. Family History Family history unknown: Yes Review of Systems: CONSTITUTIONAL: no weight loss, no fever, no chills HEENT: no vision changes, no ear pain, no runny nose, no sore throat RESPIRATORY: no dyspnea, no cough, no wheeze, no sputum production CV: no chest pain, no palpitations, no syncope GI: no abdominal pain, no nausea, no vomiting, no diarrhea. MSK: no myalgia, no joint pain. SKIN: no rash, no pruritus. NEUROLOGICAL: no weakness, no paresthesias PSYCHIATRIC: No mood changes. No anxiety, no depression. Physical examination: Vitals: There were no vitals taken for this visit. No exam, tele visit Labs Results: No results found for: HGB, HCT, WBC, BUN, BUN, CREATININE, CREATININE, NA, K, BICARB, CO2, CO2, PH, PH, PHART, PHVEN, EEM6NLX, LEJ6LAD, DGP3AFH, PO2POC, PO2ART, PO2VEN, APR0ITX, CGY3EGU Radiology: No Chest X-ray results found for the past [address] results found for the past 12 months Assessment and Plan: Diagnoses and all orders for this visit: Primary adenocarcinoma of left lung (CMS/HCC) Tobacco use Plan: - Plan for EBUS, for staging based on mass size. Tentatively next week. - Follow up with oncology for NSCLC treatment. - Patient will need PFT to assess lung function once Bx is done. Total time spent was 25 minutes. The visit was initiated by the patient and conducted [id number] with use of audio-only real time telephone communication between patient and provider for a virtual visit. Verbal consent to provide and bill for this service was obtained No signature was obtained due to the COVID-19 pandemic. Micheal Feliz MD PCCM Fellow [facility] 08-18-2022 Note . [facility] 05-26-2022 Note PROCEDURE: XR FOOT R T MIN 3 VIEWS COMPARISON: 04/13/2022 HISTORY: Pain in right foot FINDINGS: BONES:Stable healing fractures head of the second, third, fourth and fifth metatarsals. No new fracture. No dislocation. Mild stable degenerative changes. SOFT TISSUES:Negative. No visible soft tissue swelling. EFFUSION:None visible. OTHER: Negative. IMPRESSION: Stable healing fractures head of the second through fifth metatarsals Electronically authenticated by: ANNE GUADALUPE Date: 2022-05-26 19:40 [facility] 04-14-2022 Note PROCEDURE: XR FOOT R T MIN 3 VIEWS HISTORY: Pain in right foot COMPARISON: XR foot right 03/30/2022 FINDINGS: BONES:Stable, slightly abnormal alignment with ongoing bone healing of the distal metatarsal neck fractures of the second through fifth metatarsals. Increasing callus formation along the margins. Mild degenerative changes the first metatarsophalangeal joint. SOFT TISSUES:No visible soft tissue swelling. EFFUSION:None visible. OTHER: Negative. IMPRESSION: 1. Stable alignment and ongoing bone healing of the second through fifth metatarsal fractures. Electronically authenticated by: LEIGH PUCKETT Date: 2022-04-14 09:05 [facility] 03-31-2022 Note PROCEDURE: XR FOOT R T MIN 3 VIEWS HISTORY: Pain in right foot COMPARISON: XR foot right 03/23/2022 FINDINGS: BONES:Transverse, slightly comminuted fracture involving the neck of the second through fifth metatarsals with mild displacement. SOFT TISSUES:Distal dorsal soft tissue swelling. EFFUSION:None visible. OTHER: Negative. IMPRESSION: 1. Mildly displaced fractures involving the neck of the second through fifth metatarsals without appreciable intra-articular extension. Orthopedic consultation recommended. Electronically authenticated by: LEIGH PUCKETT Date: 2022-03-31 08:08 [facility] 03-23-2022 Note PROCEDURE: XR FOOT R T MIN 3 VIEWS COMPARISON: None. HISTORY: C/O: a pain FINDINGS: BONES:Acute complex fractures involving the neck of the second, third, fourth and fifth metatarsals with bony overlap. Degenerative changes most significant at the first metatarsal-phalangeal joint. Mild enthesopathic spurring plantar calcaneus SOFT TISSUES:Negative. No visible soft tissue swelling. EFFUSION:None visible. OTHER: Negative. IMPRESSION: Acute complex fractures head of the second through fifth metatarsals Electronically authenticated by: ANNE GUADALUPE Date: 2022-03-23 12:49 [facility] Evaluation note Diagnosis Malignant neoplasm of left lung, unspecified part of lung (HCC)- [facility] Diagnosis 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)- Primary [facility] Diagnosis Malignant neoplasm of left lung, unspecified part of lung (HCC) [facility] Diagnosis Malignant neoplasm of left lung, unspecified part of lung (HCC) [facility] Diagnosis Personal history of malignant neoplasm of bronchus and lung- Primary [facility] Diagnosis Neoplasm of lung- Primary Neoplasm of unspecified nature of respiratory system [facility] Diagnosis 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)- Primary documented in this encounter [facility] for referral (narrative)* Outpatient Procedure (Routine) - Pending Review Specialty Diagnoses / Procedures Referred By Javy singer Referred To Contact [facility] Diagnoses Malignant neoplasm of left lung, unspecified part of lung (HCC) Procedures SIX MINUTE WALK CARDIOPULMONARY EXERCISE STRESS Delfina Blue MD, PhD [id number] [place] [address] [facility] [place] [address] Referral ID Status Reason Start Date Expiration Date Visits Requested Visits Authorized [id number] Pending Review Auto-Generat ed Referral 09/09/2022 10/09/2023 1 1 * Outpatient Procedure (Routine) - Pending Review Specialty Diagnoses / Procedures Referred By Contac t Referred To Contact [facility] [place] Diagnoses Malignant neoplasm of left lung, unspecified part of lung (HCC) Procedures LUNG DIFFUSION CAPACITY (DLCO) DIFFUSING CAPACITY Delfina Blue MD, PhD [id number] [facility] [address] [place], [place] [address] [place] [address] Referral ID Status Reason Start Date Expiration Date Visits Requested Visits Authorized [id number] Pending Review Auto-Generat ed Referral 09/09/2022 10/09/2023 1 1 * Outpatient Procedure (Routine) - Pending Review Specialty Diagnoses / Procedures Referred By Contac t Referred To Contact [facility] [place] Diagnoses Malignant neoplasm of left lung, unspecified part of lung (HCC) Procedures SPIROMETRY BASELINE ONLY SPMTRY W/VC EXPIRATORY RU W/WO MXML VOL VNTJ Delfina Blue MD, PhD [address]ST[address] [facility] [place] [id number] [place] [address] [address] [place] [id number] Referral ID Status Reason Start Date Expiration Date Visits Requested Visits Authorized [id number] Pending Review Auto-Generat ed Referral 09/09/2022 10/09/2023 1 1 [facility] Summary Purpose Family History No Family History Records FoundNo Family History Records FoundNo Family History Records FoundNo Family History Records Found Advance Directives No Advanced Directives Records FoundNo Advanced Directives Records FoundNo Advanced Directives Records FoundNo Advanced Directives Records Found Reason for Referral Specialty Diagnoses / Procedures Referred By Contac t Referred To Contact CT IMAGING Diagnoses Neoplasm of lung Procedures CT CHEST W IVCON DIAGNOSTIC COMPUTED TOMOGRAPHY THORAX W/CONTRAST Don Mejia MD [address] [place] [address] [place] [address] [facility] [place] [address] Referral ID Status Reason Start Date Expiration Date Visits Requested Visits Authorized [id number] Authorized Auto-Generat ed Referral 06/09/2023 04/09/2024 1 1 Additional Source Comments (unrecognized sect ion and content) No Status Records FoundNo Status Records FoundNo Status Records FoundNo Status Records Found INFORMATION SOURCE (unrecogn ized section and content) DATE CREATED AUTHOR 05/30/2022 [facility] DATE CREATED AUTHOR AUTHOR'S ORGANIZ ATION 09/09/2022 [facility] DATE CREATED AUTHOR AUTHOR'S ORGANIZ ATION 10/15/2022 [facility] DATE CREATED AUTHOR AUTHOR'S ORGANIZ ATION 07/01/2023 [facility] Source Comments (unrecognize d section and content) In the event this informatio n is protected by the Federal Confidentiality of Alcohol and Drug Abuse Patient Records regulations: The Federal rules restrict any use of the information to criminally investigate or prosecute any alcohol or drug abuse patient.[facility] the event this information is protected by the Federal Confidentiality of Alcohol and Drug Abuse Patient Records regulations: The Federal rules restrict any use of the information to criminally investigate or prosecute any alcohol or drug abuse patient.[facility] the event this information is protected by the Federal Confidentiality of Alcohol and Drug Abuse Patient Records regulations: The Federal rules restrict any use of the information to criminally investigate or prosecute any alcohol or drug abuse patient.[facility] the event this information is protected by the Federal Confidentiality of Alcohol and Drug Abuse Patient Records regulations: The Federal rules restrict any use of the information to criminally investigate or prosecute any alcohol or drug abuse patient.[facility] the event this information is protected by the Federal Confidentiality of Alcohol and Drug Abuse Patient Records regulations: The Federal rules restrict any use of the information to criminally investigate or prosecute any alcohol or drug abuse patient.[facility] the event this information is protected by the Federal Confidentiality of Alcohol and Drug Abuse Patient Records regulations: The Federal rules restrict any use of the information to criminally investigate or prosecute any alcohol or drug abuse patient.[facility] the event this information is protected by the Federal Confidentiality of Alcohol and Drug Abuse Patient Records regulations: The Federal rules restrict any use of the information to criminally investigate or prosecute any alcohol or drug abuse patient.[facility] Campus[facility] the event this information is protected by the Federal Confidentiality of Alcohol and Drug Abuse Patient Records regulations: The Federal rules restrict any use of the information to criminally investigate or prosecute any alcohol or drug abuse patient.[facility] Campus[facility] the event this information is protected by the Federal Confidentiality of Alcohol and Drug Abuse Patient Records regulations: The Federal rules restrict any use of the information to criminally investigate or prosecute any alcohol or drug abuse patient.[facility] the event this information is protected by the Federal Confidentiality of Alcohol and Drug Abuse Patient Records regulations: The Federal rules restrict any use of the information to criminally investigate or prosecute any alcohol or drug abuse patient.[facility] the event this information is protected by the Federal Confidentiality of Alcohol and Drug Abuse Patient Records regulations: The Federal rules restrict any use of the information to criminally investigate or prosecute any alcohol or drug abuse patient.[facility] Campus[facility] the event this information is protected by the Federal Confidentiality of Alcohol and Drug Abuse Patient Records regulations: The Federal rules restrict any use of the information to criminally investigate or prosecute any alcohol or drug abuse patient.[facility] Campus[facility] the event this information is protected by the Federal Confidentiality of Alcohol and Drug Abuse Patient Records regulations: The Federal rules restrict any use of the information to criminally investigate or prosecute any alcohol or drug abuse patient.[facility] Campus[facility] the event this information is protected by the Federal Confidentiality of Alcohol and Drug Abuse Patient Records regulations: The Federal rules restrict any use of the information to criminally investigate or prosecute any alcohol or drug abuse patient.[facility] Campus[facility] the event this information is protected by the Federal Confidentiality of Alcohol and Drug Abuse Patient Records regulations: The Federal rules restrict any use of the information to criminally investigate or prosecute any alcohol or drug abuse patient.[facility] Campus[facility] the event this information is protected by the Federal Confidentiality of Alcohol and Drug Abuse Patient Records regulations: The Federal rules restrict any use of the information to criminally investigate or prosecute any alcohol or drug abuse patient.[facility] Campus[facility] the event this information is protected by the Federal Confidentiality of Alcohol and Drug Abuse Patient Records regulations: The Federal rules restrict any use of the information to criminally investigate or prosecute any alcohol or drug abuse patient.[facility] CampusIn the event this information is protected by the Federal Confidentiality of Alcohol and Drug Abuse Patient Records regulations: The Federal rules restrict any use of the information to criminally investigate or prosecute any alcohol or drug abuse patient.[facility] Campus[facility] the event this information is protected by the Federal Confidentiality of Alcohol and Drug Abuse Patient Records regulations: The Federal rules restrict any use of the information to criminally investigate or prosecute any alcohol or drug abuse patient.[facility] CampusIn the event this information is protected by the Federal Confidentiality of Alcohol and Drug Abuse Patient Records regulations: The Federal rules restrict any use of the information to criminally investigate or prosecute any alcohol or drug abuse patient.[facility] Reason for Visit (unrecogniz ed section and content) Reason Comments External Referrals/resources Consult Reason Comments Appointment Reason Comments Appointment Confirmation Reason Comments Patient Education Reason Comments FYI-No Action Needed Reason Comments Consult Reason Comments Spirometry Specialty Diagnoses / Procedures Referred By Contac t Referred To Contact [facility] Diagnoses Malignant neoplasm of left lung, unspecified part of lung (HCC) Procedures LUNG DIFFUSION CAPACITY (DLCO) DIFFUSING CAPACITY Delfina Blue MD, PhD [address] [place] [address] [facility] [place] [address] [place] [address] Referral ID Status Reason Start Date Expiration Date V isits Requested Visits Authorized [id number] Closed Auto-Generate d Referral 09/09/2022 10/09/2023 1 1 Specialty Diagnoses / Procedures Referred By Contac t Referred To [facility] [place] Diagnoses Malignant neoplasm of left lung, unspecified part of lung (HCC) Procedures SPIROMETRY BASELINE ONLY SPMTRY W/VC EXPIRATORY RU W/WO MXML VOL VNTJ Delfina Blue MD, PhD [address] [place] [address] [facility] [place] [address] [place] [address] Referral ID Status Reason Start Date Expiration Date V isits Requested Visits Authorized [id number] Closed Auto-Generate d Referral 09/09/2022 10/09/2023 1 1 Specialty Diagnoses / Procedures Referred By Contac t Referred To Contact [facility] Diagnoses Malignant neoplasm of left lung, unspecified part of lung (HCC) Procedures SIX MINUTE WALK CARDIOPULMONARY EXERCISE STRESS PULMONARY STRESS TESTING Delfina Blue MD, PhD [address] [facility] [address] [place] [address] [facility] [place] [address] [place] [id number] Referral ID Status Reason Start Date Expiration Date V isits Requested Visits Authorized [id number] Closed Auto-Generate d Referral 10/01/2022 02/06/2023 1 1 Reason Comments Mass Reason Comments Future Appointment Reason Comments Received Outside Medical Records Reason Comments Orders Reason Comments Patient Update Post Radiation Treat ment Nurse Call Reason Comments Lung Cancer Specialty Diagnoses / Procedures Referred By Contac t Referred To Contact [facility] Diagnoses . Procedures . Self [facility] [place] [address] Referral ID Status Reason Start Date Expiration Date Visits Requested Visits Authorized [id number] Authorized Financial Clearance Required - Self Pay Patient Cleared - Qualified HCAP/501/FA 03/31/2023 06/29/2023 99 99 Care Teams (unrecognized sec tion and content) Zinc Plate Grainer Relationship Specialty Start Date End Date Wade Jones Sr. [address] [place] [address] PCP - General Family Medicine 08/26/22 Chinyere Candelaria [address] [place] [address] Critical Care 08/26/22 Jennifer Garber MD [address] [place] [address] Hematology/Oncology 08/26/22 [employer]inc Plate Grainer Relationship Specialty Start Date End Date Wade Jones Sr. [address] [place] [address] PCP - General Family Medicine 08/26/22 Chinyere Candelaria [address] [place] [address] Critical Care 08/26/22 Jennifer Garber MD [address] [place] [address] Hematology/Oncology 08/26/22 Zinc Plate Grainer Relationship Specialty Start Date End Date Wade Jones Sr. [address] [place] [address] PCP - General Family Medicine 08/26/22 Chinyere Candelaria [address] [place] [address] Critical Care 08/26/22 Jennifer Garber MD [address] [place] [address] Hematology/Oncology 08/26/22 Zinc Plate Grainer Relationship Specialty Start Date End Date Wade Jones Sr. [address] [place] [address] PCP - General Family Medicine 08/26/22 Chinyere Candelaria [address] [place] [address] Critical Care 08/26/22 Jennifer Garber MD [address] [place] [facility] [place] [address] Hematology/Oncology 08/26/22 Zinc Plate Grainer Relationship Specialty Start Date End Date Wade Jones Sr. [address] [place] [facility] [place] [address] PCP - General Family Medicine 08/26/22 Chinyere Candelaria [address] [facility] [place] [address] Critical Care 08/26/22 Jennifer Garber MD [address] [place] [facility] [place] [address] Hematology/Oncology 08/26/22 Zinc Plate Grainer Relationship Specialty Start Date End Date Wade Jones Sr. [address] [place] [facility] [place] [address] PCP - General Family Medicine 08/26/22 Chinyere Candelaria [address] [place] [address] Critical Care 08/26/22 Jenniefr Garber MD [address] [place] [facility] [place] [place] [address] Hematology/Oncology 08/26/22 Zinc Plate Grainer Relationship Specialty Start Date End Date Wade Jones Sr. [address] [place] [facility] [place] [address] PCP - General Family Medicine 08/26/22 Chinyere Candelaria [address] [place] [address] Critical Care 08/26/22 Jennifer Garber MD [address] [place] [address] Hematology/Oncology 08/26/22 Zinc Plate Grainer Relationship Specialty Start Date End Date Wade Jones Sr. [address] [place] [address] PCP - General Family Medicine 08/26/22 Chinyere Candelaria MD [address] [place] [address] Critical Care 08/26/22 Jennifer Garber MD [address] [place] [address] Hematology/Oncology 08/26/22 Zinc Plate Grainer Relationship Specialty Start Date End Date Wade Jones Sr. [address] [place] [address] PCP - General Family Medicine 08/26/22 Chinyere Candelaria MD [address] [facility] [place] [address] Critical Care 08/26/22 Jennifer Garber MD [address] [place] [facility] [place] [address] Hematology/Oncology 08/26/22 Zinc Plate Grainer Relationship Specialty Start Date End Date Wade Jones Sr., [address] [place] [address] PCP - General Family Medicine 08/26/22 Chinyere Candelaria MD [address] [place] [address] Critical Care 08/26/22 Jennifer Garber MD [address] [place] [address] Hematology/Oncology 08/26/22 Zinc Plate Grainer Relationship Specialty Start Date End Date Wade Jones Sr., DO [address] [place] [address] PCP - General Family Medicine 08/26/22 Chinyere Candelaria MD [address] [place] [address] Critical Care 08/26/22 Jennifer Garber MD [facility] [place] [address] Hematology/Oncology 08/26/22 Zinc Plate Grainer Relationship Specialty Start Date End Date Wade Jones Sr., DO [address] [place] [address] PCP - General Family Medicine 08/26/22 Chinyere Candelaria MD [address] [place] [address] Critical Care 08/26/22 Jennifer Garber MD [address] [place] [address] Hematology/Oncology 08/26/22 Zinc Plate Grainer Relationship Specialty Start Date End Date Wade Jones Sr., DO [address] [place] [address] PCP - General Family Medicine 08/26/22 Chinyere Candelaria MD [address] [place] [address] Critical Care 08/26/22 Jennifer Garber MD [address] [place] [address] Hematology/Oncology 08/26/22 Zinc Plate Grainer Relationship Specialty Start Date End Date Wade Jones Sr., DO [address] [place] [address] PCP - General Family Medicine 08/26/22 Chinyere Candelaria MD [address] [place] [address] Critical Care 08/26/22 Jennifer Garber MD [address] [place] [address] Hematology/Oncology 08/26/22 Zinc Plate Grainer Relationship Specialty Start Date End Date Wade Jones Sr., DO [address] [place] [address] PCP - General Family Medicine 08/26/22 Chinyere Candelaria MD [address] [place] [address] Critical Care 08/26/22 Jennifer Garber MD [address] [place] [address] Hematology/Oncology 08/26/22 Zinc Plate Grainer Relationship Specialty Start Date End Date Wade Jones Sr., DO [address] [place] [address] PCP - General Family Medicine 08/26/22 Chinyere Candelaria MD [address] [place] [address] Critical Care 08/26/22 Jennifer Garber MD [address] [place] [address] Hematology/Oncology 08/26/22 Zinc Plate Grainer Relationship Specialty Start Date End Date Wade Jones Sr., DO [address] [place] [address] PCP - General Family Medicine 08/26/22 Chinyere Candelaria MD [address] [place] [address] Critical Care 08/26/22 Jennifer Garber MD [address] [place] [address] Hematology/Oncology 08/26/22 Zinc Plate Grainer Relationship Specialty Start Date End Date Wade Jones Sr., DO PCP - General Family Medicine 08/26/22 Chinyere Candelaria MD [address] [place] [facility] [place] [address] Critical Care 08/26/22 Jennifer Garber MD [address] [place] [address] Hematology/Oncology 08/26/22 FOR RECORDS PERTAINING TO PATIENTS WHO ARE OR HAVE BEEN ENROLLED IN A CHEMICAL DEPENDENCY/SUBSTANCEABUSE PROGRAM, SOME INFORMATION MAY BE OMITTED. This clinical summary was aggregated from multiple sources. Caution should be exercised in using it in the provision of clinical care. This summary normalizes information from multiple sources, and as a consequence, information in this document may materially change the coding, format and clinical context of patient data. In addition, data may be omitted in some cases. CLINICAL DECISIONS SHOULD BE BASED ON THE PRIMARY CLINICAL RECORDS. [facility]. provides no warranty or guarantee of the accuracy or completeness of information in this document.
--- NOTE | 2023-07-18 16:45 | ECG_ITS ---
The [facility] Test Date: 2023-07-18 Pat Name: BOBBY GRAJEDA Department: Room: - Gender: Male Crisis Counselor: : 1960 Requested By: Jennifer Garber Order Number: [id number] Reading MD: NAYA COYLE Measurements Intervals Alfred Rate: 79 P: 90 DC: 162 QRS: 68 QRSD: 90 T: 76 QT: 402 QTc: 436 Interpretive Statements 1100 Sinus rhythm [address] depression 9130 borderline ECG Electronically Signed On 07-18-2023 22:54:02 EDT by NAYA COYLE
--- NOTE | 2023-07-18 16:45 | XR_ITS ---
The [address] [address] Patient Name: BOBBY GRAJEDA MRN: [id number] date: 1960 Sex: M Assigned Patient Location: ER Current Patient Location: ED.MAIN Accession/Order Number: [id number] Exam Date: 07/18/2023 17:40 Report Date: 07/18/2023 18:14 At the request of: MANOJ SIEGEL Procedure: XR chest 1V EXAM: XR chest 1V at 1738 hours HISTORY: SOB, edema COMPARISON: 12/01/2022 TECHNIQUE: AP upright portable chest x-ray FINDINGS: A small amount of pleural and parenchymal scarring is seen at the apices. There is an oval nodular structure is seen in the left upper lung laterally, which is larger than seen in the prior study. No acute infiltrate, effusion or pneumothorax is identified. Nipple shadows are noted. The heart is not enlarged and the vasculature is not distended. XR/XR chest 1V IMPRESSION: No apparent acute infiltrate or evidence of cardiac decompensation. Some chronic changes are seen at the apices. Interval increase in the size of the nodular structure at the left apex laterally. A follow-up CT scan of the chest may be helpful. Electronically authenticated by: LAISHA WINTERS Date: 07/18/2023 18:14
--- NOTE | 2023-07-18 16:47 | ED_ITS ---
Documented by User: Benita Fontana 07/18/23 22:02 HPI HPI - General Adult General Chief complaint: Weakness Stated complaint: diff breathing, diff ambulating, back pain Time Seen by Provider: 07/18/23 16:39 Source: patient Mode of arrival: Wheelchair Limitations: no limitations History of Present Illness HPI narrative: 62 year old male presents to the ED for SOB, generalized weakness. Onset was one week ago. His dyspnea is worse with exertion. Denies fever, N/V. Denies dizziness, CP, Abd pain. Reports diarrhea. He has a chronic cough that is unchanged. He is a smoker. He has hx lung CA, COPD, CHF. He is a heavy daily alcohol drinker. Related Data Home Medications ?Medication ?Instructions ?Recorded ?Confirmed metoprolol succinate 50 mg 50 mg PO DAILY 07/26/22 07/19/23 tablet,extended release 24 hr calcium carbonate 600 mg PO .TIDAC 07/19/23 07/19/23 magnesium oxide 400 mg (241.3 mg 400 mg PO TID 07/19/23 07/19/23 magnesium) tablet Previous Rx's ?Medication ?Instructions ?Recorded pantoprazole 40 mg tablet,delayed 40 mg PO DAILY 4 weeks #28 tabs 12/04/22 release (Protonix) potassium chloride 10 mEq 10 meq PO TID #90 tabs 12/04/22 tablet,extended release(part/cryst) (Klor-Con M) Allergies Allergy/AdvReac Type Severity Reaction Status Date / Time No Known Drug Allergies Allergy Verified 07/18/23 16:34 Opioid HPI Opioid Management Most Recent Opioid Data: Last Pain Scale 3 07/19/23 00:00 Last Pain Intensity 0 12/02/22 10:31 Last Pain Assessment 07/19/23 18:00 Last ORT Total Score 3 07/18/23 23:25 Last ORT Risk Category Low Risk 07/18/23 23:25 Ur Phencyclidine Scrn Negative (NEGATIVE) 07/29/22 18:40 Review of Systems ROS Constitutional Reports: chills; Denies: fever Ears, nose, mouth, and throat Denies: throat pain or neck pain Cardiovascular Reports: edema and swelling of feet/ankles; Denies: chest pain or lightheadedness Respiratory Reports: shortness of breath and cough Gastrointestinal Reports: diarrhea; Denies: abdominal pain, nausea or vomiting Genitourinary Denies: painful urination or urinary frequency Musculoskeletal Denies: back pain or neck pain Integumentary/Breast Denies: rash Neurological Denies: headache or dizziness [facility] Medical History (Updated 07/19/23 @ 11:44 by Shankar Ruiz MD) Sepsis ?A41.9 - Sepsis, unspecified organism (ICD-10) Dyspnea ?R06.00 - Dyspnea, unspecified (ICD-10) Disorder of electrolytes ?E87.8 - Other disorders of electrolyte and fluid balance, not elsewhere classified (ICD-10) Generalized weakness ?R53.1 - Weakness (ICD-10) Hypokalemia ?E87.6 - Hypokalemia (ICD-10) Elevated brain natriuretic peptide (BNP) level ?R79.89 - Other specified abnormal findings of blood chemistry (ICD-10) (HFpEF) heart failure with preserved ejection fraction ?I50.30 - Unspecified diastolic (congestive) heart failure (ICD-10) Generalized weakness ?R53.1 - Weakness (ICD-10) Liver mass ?R16.0 - Hepatomegaly, not elsewhere classified (ICD-10) Anemia ?D64.9 - Anemia, unspecified (ICD-10) New onset of congestive heart failure ?I50.9 - Heart failure, unspecified (ICD-10) Alcoholic ?F10.20 - Alcohol dependence, uncomplicated (ICD-10) Mass of upper lobe of left lung ?R91.8 - Other nonspecific abnormal finding of lung field (ICD-10) Adult failure to thrive ?R62.7 - Adult failure to thrive (ICD-10) Lung mass ?R91.8 - Other nonspecific abnormal finding of lung field (ICD-10) Generalized weakness ?R53.1 - Weakness (ICD-10) Surgical History (Updated 08/03/22 @ 15:40 by Kayli Licea) History of tonsillectomy ?Z90.89 - Acquired absence of other organs (ICD-10) History of appendectomy ?Z90.49 - Acquired absence of other specified parts of digestive tract (ICD- 10) Social History Smoking status: Current every day smoker Highest level of school completed/degree received: 9th grade Gender Identity: male Exam Constitutional Vital Signs, click to edit/add: Last Vital Signs Temp 96.8 F L 07/19/23 15:55 Pulse 82 07/19/23 18:00 Resp 23 H 07/19/23 16:01 BP 90/72 07/19/23 16:01 Pulse Ox 97 07/19/23 12:00 O2 Del Method Room Air 07/18/23 23:25 Common normals: no apparent distress and oriented x3 General appearance: cooperative and ill appearing Other: Skin mottled, cool to touch. HENMT Common normals: external ears normal; oral mucous membranes not moist Nose: external nose normal Mouth: oral and palatal mucosa normal and lip normal Eye Common normals: conjunctivae normal and no scleral icterus Neck & C-Spine Common normals: supple Chest Chest: symmetrical chest wall rise Respiratory Auscultation: diminished lung sounds Cardio Common normals: regular rate and regular rhythm GI Common normals: Normal to inspection, nondistended, normoactive bowel sounds present, soft to palpation and non-tender Extremity Other: 2+ edema bilateral feet/ankles. Course Vital Signs Vital signs: Vital Signs Pulse Rate 77 07/18/23 16:28 Respiratory Rate 22 H 07/18/23 16:28 Blood Pressure 135/94 H 07/18/23 16:28 Pulse Oximetry 98 07/18/23 16:28 Oxygen Delivery Method Room Air 07/18/23 16:28 Temperature 96.8 F L 07/19/23 15:55 Pulse Rate 82 07/19/23 18:00 Respiratory Rate 23 H 07/19/23 16:01 Blood Pressure 90/72 07/19/23 16:01 Pulse Oximetry 97 07/19/23 12:00 Oxygen Delivery Method Room Air 07/18/23 23:25 Medical Decision Making MDM Narrative Medical decision making narrative: WBC count was 17.4, lactic acid 8.7, BNP 5215, potassium 5.7. The potassium was treated. The patient was started on IV antibiotics due to concerns for sepsis. He was initially reluctant to be admitted to the hospital. CT scan of the chest was pending. I did speak with Rosy JO for admission; awaiting CT scan of the chest for acceptance. Care was resumed to Dr. Canchola. See his dictation fo further evaluation and treatment. The patient has hx lung CA, CHF, COPD. He reported he is scheduled for an outpatient CT scan of his chest in [address] LE NOTES BELOW: Patient was given a prescription for a walker/rollader with seat to have at home if needed if patient cannot get a walker from the [facility]. I evaluated patient's back and buttocks with Carol ENCINAS as a witness. Patient has mild tenderness palpation to the bilateral Parathoracic soft tissue; No midline pain. Patient has no pilonidal cyst, no signs of any type of perianal or rectal abscess. Patient does have excoriation to the inner buttocks secondary to chronic diarrhea which could be secondary to alcoholism. Patient states his buttocks has been sore for weeks. No break through the skin, no signs of stage II ulceration. Daughter was at bedside during examination as well. Patient's lactic acid was 8, patient was given a second liter of fluid of lactated Ringer's. Patient will need to be admitted to the hospital for evaluation. I, Dr Le, have reviewed the above progress note and course of action in the ER; agree with the above. I have personally seen and evaluated this patient, gone over history and physical, and discussed disposition and treatment plan with the patient. Medical Records Medical records reviewed: Yes I reviewed the patient's medical records Lab Data Lab results reviewed: Yes I reviewed the patient's lab results Labs: Lab Results 07/18/23 07/18/23 07/18/23 Range/Units 17:17 18:38 19:15 WBC 17.4 H (4.0-11.0) 10^3/uL RBC 2.85 L (4.70-6.10) 10^6/uL Hgb 9.7 L (14.0-18.0) g/dL Hct 28.3 L (42.0-54.0) % MCV 99.3 H (80.0-94.0) fL MCH 34.0 (25.9-34.0) pg MCHC 34.3 (29.9-35.2) g/dL RDW 13.0 (11.0-15.0) % Plt Count 185 (150-450) 10^3/uL MPV 10.2 (9.5-13.5) fL Seg Neuts % (Manual) 94.0 Band Neutrophils % 1.0 (0-5) % Lymphocytes % (Manual) 1.0 L (20.5-60.0) % Monocytes % (Manual) 4.0 (1.7-12.0) % Eosinophils % (Manual) 0.0 L (0.9-7.0) % Basophils % (Manual) 0.0 L (0.2-2.0) % Neutrophils # (Manual) 16.35 H (1.4-6.5) 10^3/uL Band Neutrophils # 0.2 (0.0-0.3) 10^3/uL Lymphocytes # (Manual) 0.17 L (1.20-3.80) 10^3/uL Monocytes # (Manual) 0.69 (0.30-0.80) 10^3/uL Eosinophils # (Manual) 0.00 (0.00-0.70) 10^3/uL Basophils # (Manual) 0.00 (0.00-0.10) 10^3/uL PT 10.6 (9.0-11.6) sec INR 1.00 Sodium 124 L* (136-145) mmol/L Potassium 5.7 H (3.5-5.1) mmol/L Chloride 94 L (98-107) mmol/L Carbon Dioxide 19.1 L (21.0-32.0) mmol/L Anion Gap 16.6 BUN 9.0 (7.0-18.0) mg/dL Creatinine 1.47 H (0.70-1.30) mg/dL Est GFR ( Amer) 59 L (>=60) Est GFR (Non-Af Amer) 48 L (>=60) BUN/Creatinine Ratio 6.1 Glucose 132 H (74-106) mg/dL Lactate 8.7 H* (0.4-2.0) mmol/L Calcium 7.7 L (8.5-10.1) mg/dL Magnesium 1.8 (1.8-2.4) mg/dL Total Bilirubin 0.8 (0.2-1.0) mg/dL AST 82 H (15-37) U/L ALT 62 (16-63) U/L Alkaline Phosphatase 219 H (46-116) U/L Total Creatine Kinase 33 L (39-308) U/L CK-MB (CK-2) 1.76 (<=3.60) ng/mL Myoglobin 47 (16-96) ng/mL Troponin I High Sens 8.7 (4.0-76.1) pg/mL NT-Pro-B Natriuret Pep 5215.0 H* (<=900.0) pg/mL Total Protein 5.4 L (6.4-8.2) g/dL Albumin 1.9 L (3.4-5.0) g/dL Globulin 3.5 g/dL Albumin/Globulin Ratio 0.5 Prealbumin (20.9-45.5) mg/dL Procalcitonin (0.00-0.50) ng/mL Ethanol Quant 13 mg/dL 07/18/23 Range/Units 20:42 WBC (4.0-11.0) 10^3/uL RBC (4.70-6.10) 10^6/uL Hgb (14.0-18.0) g/dL Hct (42.0-54.0) % MCV (80.0-94.0) fL MCH (25.9-34.0) pg MCHC (29.9-35.2) g/dL RDW (11.0-15.0) % Plt Count (150-450) 10^3/uL MPV (9.5-13.5) fL Seg Neuts % (Manual) Band Neutrophils % (0-5) % Lymphocytes % (Manual) (20.5-60.0) % Monocytes % (Manual) (1.7-12.0) % Eosinophils % (Manual) (0.9-7.0) % Basophils % (Manual) (0.2-2.0) % Neutrophils # (Manual) (1.4-6.5) 10^3/uL Band Neutrophils # (0.0-0.3) 10^3/uL Lymphocytes # (Manual) (1.20-3.80) 10^3/uL Monocytes # (Manual) (0.30-0.80) 10^3/uL Eosinophils # (Manual) (0.00-0.70) 10^3/uL Basophils # (Manual) (0.00-0.10) 10^3/uL PT (9.0-11.6) sec INR Sodium (136-145) mmol/L Potassium (3.5-5.1) mmol/L Chloride (98-107) mmol/L Carbon Dioxide (21.0-32.0) mmol/L Anion Gap BUN (7.0-18.0) mg/dL Creatinine (0.70-1.30) mg/dL Est GFR ( Amer) (>=60) Est GFR (Non-Af Amer) (>=60) BUN/Creatinine Ratio Glucose (74-106) mg/dL Lactate 5.3 H* (0.4-2.0) mmol/L Calcium (8.5-10.1) mg/dL Magnesium (1.8-2.4) mg/dL Total Bilirubin (0.2-1.0) mg/dL AST (15-37) U/L ALT (16-63) U/L Alkaline Phosphatase (46-116) U/L Total Creatine Kinase (39-308) U/L CK-MB (CK-2) (<=3.60) ng/mL Myoglobin (16-96) ng/mL Troponin I High Sens (4.0-76.1) pg/mL NT-Pro-B Natriuret Pep (<=900.0) pg/mL Total Protein (6.4-8.2) g/dL Albumin (3.4-5.0) g/dL Globulin g/dL Albumin/Globulin Ratio Prealbumin 15.4 L (20.9-45.5) mg/dL Procalcitonin 0.16 (0.00-0.50) ng/mL Ethanol Quant mg/dL Imaging Data Chest x-ray: Attestation: I have reviewed the pertinent imaging results. Radiologist's impression: ITS Impressions Chest X-Ray 07/18/23 16:45 IMPRESSION: No apparent acute infiltrate or evidence of cardiac decompensation. Some chronic changes are seen at the apices. Interval increase in the size of the nodular structure at the left apex laterally. A follow-up CT scan of the chest may be helpful. Electronically authenticated by: LAISHA WINTERS Date: 07/18/2023 18:14 Chest CTA 07/18/23 20:39 IMPRESSION: 1. No evidence of pulmonary thromboembolism. 2. Aneurysmal proximal descending thoracic aorta measuring 4 cm. Aneurysmal proximal left subclavian artery measuring 3 cm. 3. Left upper lobe lung 2.5 cm mass, decreased in size compared to prior scan. 4. Moderate COPD. Electronically authenticated by: ELIUD KHOURY Date: 07/18/2023 22:03 Discharge Plan Discharge Chief Complaint: Weakness Clinical Impression: Generalized weakness, Dyspnea, Acute hyperkalemia, Elevated brain natriuretic peptide (BNP) level Patient Disposition: Admitted As Inpatient Time of Disposition Decision: 22:22 Condition: Fair Discharge Date/Time: 07/18/23 22:56 Documented by User: Jack Le MD 07/19/23 19:37 HPI HPI - General Adult General Chief complaint: Weakness Stated complaint: diff breathing, diff ambulating, back pain Time Seen by Provider: 07/18/23 16:39 Related Data Home Medications ?Medication ?Instructions ?Recorded ?Confirmed metoprolol succinate 50 mg 50 mg PO DAILY 07/26/22 07/19/23 tablet,extended release 24 hr calcium carbonate 600 mg PO .TIDAC 07/19/23 07/19/23 magnesium oxide 400 mg (241.3 mg 400 mg PO TID 07/19/23 07/19/23 magnesium) tablet Previous Rx's ?Medication ?Instructions ?Recorded pantoprazole 40 mg tablet,delayed 40 mg PO DAILY 4 weeks #28 tabs 12/04/22 release (Protonix) potassium chloride 10 mEq 10 meq PO TID #90 tabs 12/04/22 tablet,extended release(part/cryst) (Klor-Con M) Allergies Allergy/AdvReac Type Severity Reaction Status Date / Time No Known Drug Allergies Allergy Verified 07/18/23 16:34 Opioid HPI Opioid Management Most Recent Opioid Data: Last Pain Scale 3 07/19/23 00:00 Last Pain Intensity 0 12/02/22 10:31 Last Pain Assessment 07/19/23 18:00 Last ORT Total Score 3 07/18/23 23:25 Last ORT Risk Category Low Risk 07/18/23 23:25 Ur Phencyclidine Scrn Negative (NEGATIVE) 07/29/22 18:40 PFSH PFSH Medical History (Updated 07/19/23 @ 11:44 by Shankar Ruiz MD) Sepsis ?A41.9 - Sepsis, unspecified organism (ICD-10) Dyspnea ?R06.00 - Dyspnea, unspecified (ICD-10) Disorder of electrolytes ?E87.8 - Other disorders of electrolyte and fluid balance, not elsewhere classified (ICD-10) Generalized weakness ?R53.1 - Weakness (ICD-10) Hypokalemia ?E87.6 - Hypokalemia (ICD-10) Elevated brain natriuretic peptide (BNP) level ?R79.89 - Other specified abnormal findings of blood chemistry (ICD-10) (HFpEF) heart failure with preserved ejection fraction ?I50.30 - Unspecified diastolic (congestive) heart failure (ICD-10) Generalized weakness ?R53.1 - Weakness (ICD-10) Liver mass ?R16.0 - Hepatomegaly, not elsewhere classified (ICD-10) Anemia ?D64.9 - Anemia, unspecified (ICD-10) New onset of congestive heart failure ?I50.9 - Heart failure, unspecified (ICD-10) Alcoholic ?F10.20 - Alcohol dependence, uncomplicated (ICD-10) Mass of upper lobe of left lung ?R91.8 - Other nonspecific abnormal finding of lung field (ICD-10) Adult failure to thrive ?R62.7 - Adult failure to thrive (ICD-10) Lung mass ?R91.8 - Other nonspecific abnormal finding of lung field (ICD-10) Generalized weakness ?R53.1 - Weakness (ICD-10) Surgical History (Updated 08/03/22 @ 15:40 by Kayli Licea) History of tonsillectomy ?Z90.89 - Acquired absence of other organs (ICD-10) History of appendectomy ?Z90.49 - Acquired absence of other specified parts of digestive tract (ICD- 10) Social History Smoking status: Current every day smoker Highest level of school completed/degree received: 9th grade Gender Identity: male Exam Constitutional Vital Signs, click to edit/add: Last Vital Signs Temp 96.8 F L 07/19/23 15:55 Pulse 82 07/19/23 18:00 Resp 23 H 07/19/23 16:01 BP 90/72 07/19/23 16:01 Pulse Ox 97 07/19/23 12:00 O2 Del Method Room Air 07/18/23 23:25 Course Vital Signs Vital signs: Vital Signs Pulse Rate 77 07/18/23 16:28 Respiratory Rate 22 H 07/18/23 16:28 Blood Pressure 135/94 H 07/18/23 16:28 Pulse Oximetry 98 07/18/23 16:28 Oxygen Delivery Method Room Air 07/18/23 16:28 Temperature 96.8 F L 07/19/23 15:55 Pulse Rate 82 07/19/23 18:00 Respiratory Rate 23 H 07/19/23 16:01 Blood Pressure 90/72 07/19/23 16:01 Pulse Oximetry 97 07/19/23 12:00 Oxygen Delivery Method Room Air 07/18/23 23:25 Medical Decision Making MDM Narrative Medical decision making narrative: DR LE NOTES BELOW: Patient was given a prescription for a walker/rollader with seat to have at home if needed if patient cannot get a walker from the [facility]. I evaluated patient's back and buttocks with Carol RN as a witness. Patient has mild tenderness palpation to the bilateral Parathoracic soft tissue; No midline pain. Patient has no pilonidal cyst, no signs of any type of perianal or rectal abscess. Patient does have excoriation to the inner buttocks secondary to chronic diarrhea which could be secondary to alcoholism. Patient states his buttocks has been sore for weeks. No break through the skin, no signs of stage II ulceration. Daughter was at bedside during examination as well. Patient's lactic acid was 8, patient was given a second liter of fluid of lactated Ringer's. Patient will need to be admitted to the hospital for evaluation. I, Dr Le, have reviewed the above progress note and course of action in the ER; agree with the above. I have personally seen and evaluated this patient, gone over history and physical, and discussed disposition and treatment plan with the patient. Lab Data Labs: Lab Results 07/18/23 07/18/23 07/18/23 Range/Units 17:17 18:38 19:15 WBC 17.4 H (4.0-11.0) 10^3/uL RBC 2.85 L (4.70-6.10) 10^6/uL Hgb 9.7 L (14.0-18.0) g/dL Hct 28.3 L (42.0-54.0) % MCV 99.3 H (80.0-94.0) fL MCH 34.0 (25.9-34.0) pg MCHC 34.3 (29.9-35.2) g/dL RDW 13.0 (11.0-15.0) % Plt Count 185 (150-450) 10^3/uL MPV 10.2 (9.5-13.5) fL Seg Neuts % (Manual) 94.0 Band Neutrophils % 1.0 (0-5) % Lymphocytes % (Manual) 1.0 L (20.5-60.0) % Monocytes % (Manual) 4.0 (1.7-12.0) % Eosinophils % (Manual) 0.0 L (0.9-7.0) % Basophils % (Manual) 0.0 L (0.2-2.0) % Neutrophils # (Manual) 16.35 H (1.4-6.5) 10^3/uL Band Neutrophils # 0.2 (0.0-0.3) 10^3/uL Lymphocytes # (Manual) 0.17 L (1.20-3.80) 10^3/uL Monocytes # (Manual) 0.69 (0.30-0.80) 10^3/uL Eosinophils # (Manual) 0.00 (0.00-0.70) 10^3/uL Basophils # (Manual) 0.00 (0.00-0.10) 10^3/uL PT 10.6 (9.0-11.6) sec INR 1.00 Sodium 124 L* (136-145) mmol/L Potassium 5.7 H (3.5-5.1) mmol/L Chloride 94 L (98-107) mmol/L Carbon Dioxide 19.1 L (21.0-32.0) mmol/L Anion Gap 16.6 BUN 9.0 (7.0-18.0) mg/dL Creatinine 1.47 H (0.70-1.30) mg/dL Est GFR ( Amer) 59 L (>=60) Est GFR (Non-Af Amer) 48 L (>=60) BUN/Creatinine Ratio 6.1 Glucose 132 H (74-106) mg/dL Lactate 8.7 H* (0.4-2.0) mmol/L Calcium 7.7 L (8.5-10.1) mg/dL Magnesium 1.8 (1.8-2.4) mg/dL Total Bilirubin 0.8 (0.2-1.0) mg/dL AST 82 H (15-37) U/L ALT 62 (16-63) U/L Alkaline Phosphatase 219 H (46-116) U/L Total Creatine Kinase 33 L (39-308) U/L CK-MB (CK-2) 1.76 (<=3.60) ng/mL Myoglobin 47 (16-96) ng/mL Troponin I High Sens 8.7 (4.0-76.1) pg/mL NT-Pro-B Natriuret Pep 5215.0 H* (<=900.0) pg/mL Total Protein 5.4 L (6.4-8.2) g/dL Albumin 1.9 L (3.4-5.0) g/dL Globulin 3.5 g/dL Albumin/Globulin Ratio 0.5 Prealbumin (20.9-45.5) mg/dL Procalcitonin (0.00-0.50) ng/mL Ethanol Quant 13 mg/dL 07/18/23 Range/Units 20:42 WBC (4.0-11.0) 10^3/uL RBC (4.70-6.10) 10^6/uL Hgb (14.0-18.0) g/dL Hct (42.0-54.0) % MCV (80.0-94.0) fL MCH (25.9-34.0) pg MCHC (29.9-35.2) g/dL RDW (11.0-15.0) % Plt Count (150-450) 10^3/uL MPV (9.5-13.5) fL Seg Neuts % (Manual) Band Neutrophils % (0-5) % Lymphocytes % (Manual) (20.5-60.0) % Monocytes % (Manual) (1.7-12.0) % Eosinophils % (Manual) (0.9-7.0) % Basophils % (Manual) (0.2-2.0) % Neutrophils # (Manual) (1.4-6.5) 10^3/uL Band Neutrophils # (0.0-0.3) 10^3/uL Lymphocytes # (Manual) (1.20-3.80) 10^3/uL Monocytes # (Manual) (0.30-0.80) 10^3/uL Eosinophils # (Manual) (0.00-0.70) 10^3/uL Basophils # (Manual) (0.00-0.10) 10^3/uL PT (9.0-11.6) sec INR Sodium (136-145) mmol/L Potassium (3.5-5.1) mmol/L Chloride (98-107) mmol/L Carbon Dioxide (21.0-32.0) mmol/L Anion Gap BUN (7.0-18.0) mg/dL Creatinine (0.70-1.30) mg/dL Est GFR ( Amer) (>=60) Est GFR (Non-Af Amer) (>=60) BUN/Creatinine Ratio Glucose (74-106) mg/dL Lactate 5.3 H* (0.4-2.0) mmol/L Calcium (8.5-10.1) mg/dL Magnesium (1.8-2.4) mg/dL Total Bilirubin (0.2-1.0) mg/dL AST (15-37) U/L ALT (16-63) U/L Alkaline Phosphatase (46-116) U/L Total Creatine Kinase (39-308) U/L CK-MB (CK-2) (<=3.60) ng/mL Myoglobin (16-96) ng/mL Troponin I High Sens (4.0-76.1) pg/mL NT-Pro-B Natriuret Pep (<=900.0) pg/mL Total Protein (6.4-8.2) g/dL Albumin (3.4-5.0) g/dL Globulin g/dL Albumin/Globulin Ratio Prealbumin 15.4 L (20.9-45.5) mg/dL Procalcitonin 0.16 (0.00-0.50) ng/mL Ethanol Quant mg/dL Imaging Data Chest x-ray: Radiologist's impression: ITS Impressions Chest X-Ray 07/18/23 16:45 IMPRESSION: No apparent acute infiltrate or evidence of cardiac decompensation. Some chronic changes are seen at the apices. Interval increase in the size of the nodular structure at the left apex laterally. A follow-up CT scan of the chest may be helpful. Electronically authenticated by: LAISHA WINTERS Date: 07/18/2023 18:14 Chest CTA 07/18/23 20:39 IMPRESSION: 1. No evidence of pulmonary thromboembolism. 2. Aneurysmal proximal descending thoracic aorta measuring 4 cm. Aneurysmal proximal left subclavian artery measuring 3 cm. 3. Left upper lobe lung 2.5 cm mass, decreased in size compared to prior scan. 4. Moderate COPD. Electronically authenticated by: ELIUD KHOURY Date: 07/18/2023 22:03 Discharge Plan Discharge Chief Complaint: Weakness Clinical Impression: Generalized weakness, Dyspnea, Acute hyperkalemia, Elevated brain natriuretic peptide (BNP) level Patient Disposition: Admitted As Inpatient Time of Disposition Decision: :22 Condition: Fair Discharge Date/Time: 07/18/23 22:56
--- NOTE | 2023-07-18 17:15 | PC.NURSE ---
patient here with increased weakness and shortness of breath. patient noted to be mottled from head to toe and is trembling. patient's rectal temperature checked and noted to be 97.0f. patient's visitor endorses patient drinks a half gallon of vodka every day. patient smells strongly of alcohol. patient states he has only had one drink today and can not remember the last time he ate. Patient known to have lung cancer but has not had any treatment in a while.
[2023-07-18] MEDS: PIPERACILLIN SODIUM/TAZOBACTAM 4.5 GM in 0.9 % SODIUM CHLORIDE 50 ML IV (17:25)
[2023-07-18 17:52] LABS: Ethanol 13 mg/dL
[2023-07-18] MEDS: FOLIC ACID 50 MG/10 ML VIAL IVP (17:59)
[2023-07-18] MEDS: THIAMINE HCL 200 MG/2 ML VIAL 100 MG IVP (18:00)
[2023-07-18] MEDS: 0.9 % SODIUM CHLORIDE 250 ML IV (18:06)
[2023-07-18 18:23] LABS: Creatine Kinase 33 U/L (39-308); Creatine Kinase MB 1.76 ng/mL (<=3.60); Myoglobin 47 ng/mL (16-96); Troponin I High Sensitivity 8.7 pg/mL (4.0-76.1)
[2023-07-18 18:45] LABS: Lactate/Lactic Acid 8.7 mmol/L (0.4-2.0)
[2023-07-18 18:49] LABS: Hematocrit 28.3 % (42.0-54.0); Hemoglobin 9.7 g/dL (14.0-18.0); Mean Corpuscular HGB Conc 34.3 g/dL (29.9-35.2); Mean Corpuscular Volume 99.3 fL (80.0-94.0); Mean Platelet Volume 10.2 fL (9.5-13.5); Platelet Count 185 10^3/uL (150-450); Red Blood Count 2.85 10^6/uL (4.70-6.10); White Blood Count 17.4 10^3/uL (4.0-11.0)
[2023-07-18 19:02] LABS: Prothrombin Time 10.6 sec (9.0-11.6)
[2023-07-18 19:22] LABS: Band Neutrophils Absolute 0.2 10^3/uL (0.0-0.3); Lymphocytes Absolute Manual 0.17 10^3/uL (1.20-3.80); Monocytes Absolute Manual 0.69 10^3/uL (0.30-0.80); Segmented Neut Absolute Manual 16.35 10^3/uL (1.4-6.5)
[2023-07-18] MEDS: LACTATED RINGER'S SOLUTION 1,000 ML 1000 ML IV (19:36)
[2023-07-18 19:43] LABS: Alanine Aminotransferase 62 U/L (16-63); Albumin Globulin Ratio 0.5; Albumin Level 1.9 g/dL (3.4-5.0); Alkaline Phosphatase 219 U/L (46-116); Anion Gap 16.6; Aspartate Amino Transferase 82 U/L (15-37); BUN Creatinine Ratio 6.1; Bilirubin Total 0.8 mg/dL (0.2-1.0); Calcium 7.7 mg/dL (8.5-10.1); Carbon Dioxide 19.1 mmol/L (21.0-32.0); Chloride 94 mmol/L (98-107); Estimated GFR (African America 59 (>=60); Estimated GFR (Non-African Ame 48 (>=60); Globulin 3.5 g/dL; Glucose 132 mg/dL (74-106); Magnesium 1.8 mg/dL (1.8-2.4); Potassium 5.7 mmol/L (3.5-5.1); Total Protein 5.4 g/dL (6.4-8.2)
[2023-07-18 19:45] LABS: Sodium 124 mmol/L (136-145)
--- NOTE | 2023-07-18 20:39 | CT_ITS ---
[address] [address] Patient Name: BOBBY GRAJEDA MRN: [id number] date: 1960 Sex: M Assigned Patient Location: ER Current Patient Location: Accession/Order Number: [id number] Exam Date: 07/18/2023 20:45 Report Date: 07/18/2023 22:03 At the request of: MANOJ SIEGEL Procedure: CT angio chest EXAM: CT angio chest , 07/18/2023 HISTORY: Shortness of breath COMPARISON: Prior CT scan from 01/24/2023 TECHNIQUE: CT scan of the chest performed following 98 mL of Omnipaque 350 intravenous iodine contrast with angiogram protocol. Coronal, sagittal and 3-D reconstructions were performed. Dose reduction techniques were achieved by using automated exposure control and/or adjustment of mA and/or kV according to patient size and/or use of iterative reconstruction technique. FINDINGS: The main pulmonary artery, right and left pulmonary arteries, lobar and segmental pulmonary arteries are patent and show no filling defect to suggest pulmonary thromboembolism. The lung windows redemonstrate a left upper lobe mass persists decrease in size compared to the prior scan. There is underlying moderate COPD with apical cystic changes. Mild scarring in the right lung apex. No acute infiltrate or focal consolidation. Minimal scarring in the lingula and right middle lobe. Central tracheobronchial airways are patent. The mediastinal windows demonstrate mild atherosclerotic calcific of the thoracic aorta. Aneurysmal origin of the left subclavian artery measuring 3 cm. Aneurysmal proximal descending thoracic aorta measuring 4 cm. No mediastinal or hilar lymph node enlargement. No pleural or pericardial effusion. The esophagus is nondilated. Unremarkable adrenal glands. The bone windows demonstrate mild osteopenia and dextroscoliosis spine. No focal aggressive bone lesion. Scans through the upper abdomen show mild hepatic steatosis. CT/CT angio chest IMPRESSION: 1. No evidence of pulmonary thromboembolism. 2. Aneurysmal proximal descending thoracic aorta measuring 4 cm. Aneurysmal proximal left subclavian artery measuring 3 cm. 3. Left upper lobe lung 2.5 cm mass, decreased in size compared to prior scan. 4. Moderate COPD. Electronically authenticated by: ELIUD KHOURY Date: 07/18/2023 22:03
[2023-07-18] MEDS: INSULIN REGULAR 300 UNITS/3 ML 10 UNIT IV (20:56)
[2023-07-18 21:07] LABS: Lactate/Lactic Acid 5.3 mmol/L (0.4-2.0)
[2023-07-18] MEDS: DEXTROSE 50 %-WATER 25 GM/50 ML SYRINGE IV (21:09)
[2023-07-18] MEDS: VANCOMYCIN HCL 1,500 MG in 0.9 % SODIUM CHLORIDE 500 ML 250 MG IV (21:53)
[2023-07-18 22:49] LABS: PROCALCITONIN 0.16 ng/mL (0.00-0.50)
[2023-07-18 22:57] LABS: Prealbumin 15.4 mg/dL (20.9-45.5)
[2023-07-19] VITALS (52 sets, daily range): BP systolic 67–106; BP diastolic 37–72; PULSE 79–120; TEMP 36–36.5; O2SAT 63–100
[2023-07-19] MEDS: PANTOPRAZOLE SODIUM 40 MG VIAL IV (00:58)
[2023-07-19 02:29] LABS: Lactate/Lactic Acid 2.8 mmol/L (0.4-2.0)
[2023-07-19] MEDS: 0.9 % SODIUM CHLORIDE 1,000 ML 100 ML IV ×3 (02:57→23:33)
[2023-07-19] MEDS: PIPERACILLIN SODIUM/TAZOBACTAM 3.375 GM in 0.9 % SODIUM CHLORIDE 50 ML IV ×3 (02:58→20:06)
[2023-07-19 04:47] LABS: Basophils Percent Auto 0.1 % (0.2-2.0); Eosinophils Percent Auto 0.1 % (0.9-7.0); Hematocrit 25.7 % (42.0-54.0); Hemoglobin 8.7 g/dL (14.0-18.0); Immature Granulocytes Pct Auto 0.6 % (0.0-0.5); Lymphocytes Absolute Auto 0.9 10^3/uL (1.2-3.8); Mean Corpuscular HGB Conc 33.9 g/dL (29.9-35.2); Mean Corpuscular Hemoglobin 34.7 pg (25.9-34.0); Mean Corpuscular Volume 102.4 fL (80.0-94.0); Mean Platelet Volume 9.9 fL (9.5-13.5); Monocytes Absolute Auto 0.9 10^3/uL (0.3-0.8); Monocytes Percent Auto 5.7 % (1.7-12.0); Neutrophils Absolute Auto 13.6 10^3/uL (1.4-6.5); Neutrophils Percent Auto 87.5 % (43.0-75.0); Platelet Count 179 10^3/uL (150-450); Red Blood Count 2.51 10^6/uL (4.70-6.10); Red Cell Distribution Width 13.2 % (11.0-15.0); White Blood Count 15.6 10^3/uL (4.0-11.0)
[2023-07-19 05:30] LABS: Alanine Aminotransferase 47 U/L (16-63); Albumin Globulin Ratio 0.5; Albumin Level 1.4 g/dL (3.4-5.0); Alkaline Phosphatase 170 U/L (46-116); Anion Gap 15.4; Aspartate Amino Transferase 60 U/L (15-37); Calcium 6.9 mg/dL (8.5-10.1); Carbon Dioxide 17.8 mmol/L (21.0-32.0); Chloride 97 mmol/L (98-107); Estimated GFR (African America >60 (>=60); Estimated GFR (Non-African Ame 58 (>=60); Glucose 83 mg/dL (74-106); Magnesium 1.6 mg/dL (1.8-2.4); Phosphorus 3.3 mg/dL (2.6-4.7); Potassium 4.2 mmol/L (3.5-5.1); Sodium 126 mmol/L (136-145); Total Protein 4.4 g/dL (6.4-8.2); Troponin I High Sensitivity 16.7 pg/mL (4.0-76.1)
--- NOTE | 2023-07-19 06:48 | PC.NURSE ---
0125 No distress noted while sleeping, easily arousable. Hypotension monitored.
[2023-07-19] MEDS: VANCOMYCIN HCL 1,000 MG in 0.9 % SODIUM CHLORIDE 250 ML 250 MG IV (09:42)
[2023-07-19] MEDS: METOPROLOL SUCCINATE 50 MG TAB.ER.24H PO (09:43)
[2023-07-19] MEDS: MULTIVITAMIN TABLET 1 TAB PO (09:43)
[2023-07-19] MEDS: THIAMINE MONONITRATE (VIT B1) 100 MG TABLET PO (09:43)
[2023-07-19] MEDS: FOLIC ACID 1 MG TABLET PO (09:43)
[2023-07-19] MEDS: ENOXAPARIN SODIUM 40 MG/0.4 ML SYRINGE SUBQ (09:43)
[2023-07-19] MEDS: MAGNESIUM SULFATE IN WATER 2 GM/50 ML PREMIX IV (10:23)
[2023-07-19] MEDS: CALCIUM GLUCONATE 2,000 MG in 0.9 % SODIUM CHLORIDE 100 ML 120 MG IV (10:23)
--- NOTE | 2023-07-19 11:30 | CM.NOTE ---
Rounds made with Dr. Ruiz. No plan for discharge today.
--- NOTE | 2023-07-19 11:44 | P.HP_ITS ---
HPI H&P: HPI History of Present Illness Chief complaint: Generalized Weakness, Dyspnea, Acute Hyperkalemia Narrative: 62 y/o male to ER with weakness and SOB. History of COPD and lung cancer treated with radiation. Drinks alcohol daily and reported to be a heavy drinker. C/o increased weakness and SOB with exertion. To ER and afebrile. Noted to have low BP and WBC elevated. Lactate elevated at 8 and BNP elevated. Chest x-ray without acute change. No source of infection but concerned of sepsis and started antibiotics. Admitted for treatment. Continues to c/o weakness. Reports recent diarrhea and several BM daily over past few days. Decreased oral intake. Denies every Opioid HPI Opioid Management Most Recent Opioid Data: Last Pain Scale 3 07/19/23 00:00 Last Pain Intensity 0 12/02/22 10:31 Last Pain Assessment 07/19/23 11:00 Last ORT Total Score 3 07/18/23 23:25 Last ORT Risk Category Low Risk 07/18/23 23:25 Ur Phencyclidine Scrn Negative (NEGATIVE) 07/29/22 18:40 PFSH PFS Medical History (Updated 07/19/23 @ 11:44 by Shankar Ruiz MD) Sepsis ?A41.9 - Sepsis, unspecified organism (ICD-10) Dyspnea ?R06.00 - Dyspnea, unspecified (ICD-10) Disorder of electrolytes ?E87.8 - Other disorders of electrolyte and fluid balance, not elsewhere classified (ICD-10) Generalized weakness ?R53.1 - Weakness (ICD-10) Hypokalemia ?E87.6 - Hypokalemia (ICD-10) Elevated brain natriuretic peptide (BNP) level ?R79.89 - Other specified abnormal findings of blood chemistry (ICD-10) (HFpEF) heart failure with preserved ejection fraction ?I50.30 - Unspecified diastolic (congestive) heart failure (ICD-10) Generalized weakness ?R53.1 - Weakness (ICD-10) Liver mass ?R16.0 - Hepatomegaly, not elsewhere classified (ICD-10) Anemia ?D64.9 - Anemia, unspecified (ICD-10) New onset of congestive heart failure ?I50.9 - Heart failure, unspecified (ICD-10) Alcoholic ?F10.20 - Alcohol dependence, uncomplicated (ICD-10) Mass of upper lobe of left lung ?R91.8 - Other nonspecific abnormal finding of lung field (ICD-10) Adult failure to thrive ?R62.7 - Adult failure to thrive (ICD-10) Lung mass ?R91.8 - Other nonspecific abnormal finding of lung field (ICD-10) Generalized weakness ?R53.1 - Weakness (ICD-10) Surgical History (Updated 08/03/22 @ 15:40 by Kayli Licea) History of tonsillectomy ?Z90.89 - Acquired absence of other organs (ICD-10) History of appendectomy ?Z90.49 - Acquired absence of other specified parts of digestive tract (ICD- 10) Social History Smoking status: Current every day smoker Highest level of school completed/degree received: 9th grade Gender Identity: male Meds Home Medications and Allergies Home Medications ?Medication ?Instructions ?Recorded ?Confirmed ?Type metoprolol succinate 50 mg 50 mg PO DAILY 07/26/22 07/19/23 History tablet,extended release 24 hr pantoprazole 40 mg tablet,delayed 40 mg PO DAILY 4 weeks #28 tabs 12/04/22 0 07/19/23 Rx release (Protonix) potassium chloride 10 mEq 10 meq PO TID #90 tabs 12/04/22 07/19/23 Rx tablet,extended release(part/cryst) (Klor-Con M) calcium carbonate 600 mg PO .TIDAC 07/19/23 07/19/23 History magnesium oxide 400 mg (241.3 mg 400 mg PO TID 07/19/23 07/19/23 History magnesium) tablet Allergies Allergy/AdvReac Type Severity Reaction Status Date / Time No Known Drug Allergies Allergy Verified 07/18/23 16:34 Exam Constitutional Vital Signs, click to edit/add: Last Vital Signs Temp 96.7 F L 07/18/23 23:18 Pulse 86 07/19/23 10:00 Resp 15 07/19/23 06:00 BP 71/53 L 07/19/23 04:00 Pulse Ox 97 07/19/23 02:30 O2 Del Method Room Air 07/18/23 23:25 Results Labs Labs: Short CBC 07/18/23 07/19/23 Range/Units 18:38 04:36 WBC 17.4 H 15.6 H (4.0-11.0) 10^3/uL Hgb 9.7 L 8.7 L (14.0-18.0) g/dL Hct 28.3 L 25.7 L (42.0-54.0) % Plt Count 185 179 (150-450) 10^3/uL BMP 07/18/23 07/19/23 19:15 04:36 Sodium 124 L* 126 L Potassium 5.7 H 4.2 Chloride 94 L 97 L Carbon Dioxide 19.1 L 17.8 L BUN 9.0 10.0 Creatinine 1.47 H 1.25 Glucose 132 H 83 Calcium 7.7 L 6.9 L Cardiac Enzymes 07/18/23 Range/Units 17:17 Total Creatine Kinase 33 L (39-308) U/L CK-MB (CK-2) 1.76 (<=3.60) ng/mL Liver Function 07/18/23 07/19/23 Range/Units 19:15 04:36 Total Bilirubin 0.8 1.0 (0.2-1.0) mg/dL AST 82 H 60 H (15-37) U/L ALT 62 47 (16-63) U/L Alkaline Phosphatase 219 H 170 H (46-116) U/L Albumin 1.9 L 1.4 L (3.4-5.0) g/dL
[2023-07-19 12:05] LABS: Bilirubin Urine NEGATIVE (NEGATIVE); Blood Urine NEGATIVE (NEGATIVE); Clarity Urine CLEAR (CLEAR); Color Urine YELLOW (YELLOW); Glucose Urine UA NEGATIVE (NEGATIVE); Ketones Urine NEGATIVE (NEGATIVE); Leukocyte Esterase Urine NEGATIVE (NEGATIVE); Nitrite Urine NEGATIVE (NEGATIVE); Protein Urine NEGATIVE (NEG/TRACE); Specific Gravity Urine 1.015 (1.005-1.025); Urobilinogen Urine 0.2 EU/dL (0.2-1.0); pH Urine 5.5 (5.0-9.0)
--- NOTE | 2023-07-19 12:05 | P.HP_ITS ---
HPI H&P: HPI History of Present Illness Chief complaint: Generalized Weakness, Dyspnea, Acute Hyperkalemia Narrative: 62 y/o male to ER with weakness and SOB. History of COPD and lung cancer treated with radiation. Drinks alcohol daily and reported to be a heavy drinker. C/o increased weakness and SOB with exertion. To ER and afebrile. Noted to have low BP and WBC elevated. Lactate elevated at 8 and BNP elevated. Chest x-ray without acute change. No source of infection but concerned of sepsis and started antibiotics. Admitted for treatment. Continues to c/o weakness. Reports recent diarrhea and several BM daily over past few days. Decreased oral intake. Denies every having withdrawal for alcohol. Opioid HPI Opioid Management Most Recent Opioid Data: Last Pain Scale 3 07/19/23 00:00 Last Pain Intensity 0 12/02/22 10:31 Last Pain Assessment 07/19/23 11:00 Last ORT Total Score 3 07/18/23 23:25 Last ORT Risk Category Low Risk 07/18/23 23:25 Ur Phencyclidine Scrn Negative (NEGATIVE) 07/29/22 18:40 Review of Systems ROS Constitutional Denies: fever, chills or fatigue Cardiovascular Denies: chest pain, palpitations or edema Respiratory Reports: shortness of breath; Denies: cough or wheezing Gastrointestinal Reports: diarrhea; Denies: abdominal pain, nausea or vomiting Genitourinary Denies: painful urination [facility] Medical History (Updated 07/19/23 @ 11:44 by Shankar Ruiz MD) Sepsis ?A41.9 - Sepsis, unspecified organism (ICD-10) Dyspnea ?R06.00 - Dyspnea, unspecified (ICD-10) Disorder of electrolytes ?E87.8 - Other disorders of electrolyte and fluid balance, not elsewhere classified (ICD-10) Generalized weakness ?R53.1 - Weakness (ICD-10) Hypokalemia ?E87.6 - Hypokalemia (ICD-10) Elevated brain natriuretic peptide (BNP) level ?R79.89 - Other specified abnormal findings of blood chemistry (ICD-10) (HFpEF) heart failure with preserved ejection fraction ?I50.30 - Unspecified diastolic (congestive) heart failure (ICD-10) Generalized weakness ?R53.1 - Weakness (ICD-10) Liver mass ?R16.0 - Hepatomegaly, not elsewhere classified (ICD-10) Anemia ?D64.9 - Anemia, unspecified (ICD-10) New onset of congestive heart failure ?I50.9 - Heart failure, unspecified (ICD-10) Alcoholic ?F10.20 - Alcohol dependence, uncomplicated (ICD-10) Mass of upper lobe of left lung ?R91.8 - Other nonspecific abnormal finding of lung field (ICD-10) Adult failure to thrive ?R62.7 - Adult failure to thrive (ICD-10) Lung mass ?R91.8 - Other nonspecific abnormal finding of lung field (ICD-10) Generalized weakness ?R53.1 - Weakness (ICD-10) Surgical History (Updated 08/03/22 @ 15:40 by Kayli Licea) History of tonsillectomy ?Z90.89 - Acquired absence of other organs (ICD-10) History of appendectomy ?Z90.49 - Acquired absence of other specified parts of digestive tract (ICD- 10) Social History Smoking status: Current every day smoker Highest level of school completed/degree received: 9th grade Gender Identity: male Meds Home Medications and Allergies Home Medications ?Medication ?Instructions ?Recorded ?Confirmed ?Type metoprolol succinate 50 mg 50 mg PO DAILY 07/26/22 07/19/23 History tablet,extended release 24 hr pantoprazole 40 mg tablet,delayed 40 mg PO DAILY 4 weeks #28 tabs 12/04/22 07/19/23 Rx release (Protonix) potassium chloride 10 mEq 10 meq PO TID #90 tabs 12/04/22 07/19/23 Rx tablet,extended release(part/cryst) (Klor-Con M) calcium carbonate 600 mg PO .TIDAC 07/19/23 07/19/23 History magnesium oxide 400 mg (241.3 mg 400 mg PO TID 07/19/23 07/19/23 History magnesium) tablet Allergies Allergy/AdvReac Type Severity Reaction Status Date / Time No Known Drug Allergies Allergy Verified 07/18/23 16:34 Exam Constitutional Vital Signs, click to edit/add: Last Vital Signs Temp 96.7 F L 07/18/23 23:18 Pulse 86 07/19/23 10:00 Resp 15 07/19/23 06:00 BP 71/53 L 07/19/23 04:00 Pulse Ox 97 07/19/23 02:30 O2 Del Method Room Air 07/18/23 23:25 Documenting provider has reviewed patient's vital signs: yes Common normals: no apparent distress and oriented x3 HENMT Common normals: normocephalic Eye Common normals: PERRL and EOMs intact bilaterally Respiratory Common normals: normal respiratory effort and clear to auscultation bilaterally Cardio Common normals: regular rate, regular rhythm, no gallops, no murmurs and no rub GI Common normals: Normal to inspection, nondistended, normoactive bowel sounds present and non-tender Extremity Common normals: no pedal edema Results Labs Labs: Short CBC 07/18/23 07/19/23 Range/Units 18:38 04:36 WBC 17.4 H 15.6 H (4.0-11.0) 10^3/uL Hgb 9.7 L 8.7 L (14.0-18.0) g/dL Hct 28.3 L 25.7 L (42.0-54.0) % Plt Count 185 179 (150-450) 10^3/uL BMP 07/18/23 07/19/23 19:15 04:36 Sodium 124 L* 126 L Potassium 5.7 H 4.2 Chloride 94 L 97 L Carbon Dioxide 19.1 L 17.8 L BUN 9.0 10.0 Creatinine 1.47 H 1.25 Glucose 132 H 83 Calcium 7.7 L 6.9 L Cardiac Enzymes 07/18/23 Range/Units 17:17 Total Creatine Kinase 33 L (39-308) U/L CK-MB (CK-2) 1.76 (<=3.60) ng/mL Liver Function 07/18/23 07/19/23 Range/Units 19:15 04:36 Total Bilirubin 0.8 1.0 (0.2-1.0) mg/dL AST 82 H 60 H (15-37) U/L ALT 62 47 (16-63) U/L Alkaline Phosphatase 219 H 170 H (46-116) U/L Albumin 1.9 L 1.4 L (3.4-5.0) g/dL Assessment and Plan Assessment and Plan (1) Dehydration: (2) Diarrhea: (3) Alcohol abuse: (4) Leukocytosis: (5) Adenocarcinoma of left lung: (6) Chronic heart failure with preserved ejection fraction (HFpEF): (7) COPD (chronic obstructive pulmonary disease): (8) Hyponatremia: (9) Hypomagnesemia: (10) Hypocalcemia: (11) Acute hyperkalemia: (12) Tobacco dependence: (13) Protein-calorie malnutrition, moderate: Plan Presented with weakness and SOB due to dehydration. Lactate elevated and BP low due to diarrhea. Sepsis ruled out. On antibiotics and will continue for now but likely no infection. Check urine. Continue IV fluids and will monitor vitals and fluid status. Replace electrolytes. Monitor labs. Monitor for signs of alcohol withdrawal. Start PT/OT for weakness. Plan at least 2 midnights for inpatient medically necessary services.
[2023-07-19 12:06] LABS: Urine Microscopic Indicated NO
[2023-07-19] MEDS: MAGNESIUM OXIDE 400 MG TABLET PO ×2 (13:23→22:21)
[2023-07-19] MEDS: LORAZEPAM 1 MG TABLET PO (15:49)
[2023-07-19] MEDS: CALCIUM CARBONATE 600 MG TABLET PO (15:50)
--- NOTE | 2023-07-19 17:02 | PM.CN ---
Consult Note: HPI Data of Consult Requesting Physician: Shankar Ruiz MD Primary Care Provider: Jennifer Garber MD Consult Narrative Reason for consult: lung cancer, treated with radiation Narrative: 62?y/o?male?with?extensive?tobacco?and?ETOH?history,?whom I initially met when he wad admitted with?weakness,?poor?appetite,?failure?to?thrive.? At that time, he?had?wt?loss and?cachexia?for?over?the?past?year.?His?ex?-?who?lived?with?him?had recently?passed?away.? He?noted?that?his?daughter?does?live across?the?street,?and?checks?up?on?him.?He?has?been?a?daily?drinker?for?several?years.?He?admitted?to?6+?beers?per?day.? On?admission,?he?had?CXR?noting?left?upper?lung?mass.?CT?imaging?noted?spiculated?mass,?left?lung?apex,?approx?3?cm?in?size. There?was?no?obvious?hilar?or?mediastinal?adenopathy.?He?has?been?a?smoker?for?many?years.? He?had?CT?abdomen?showing?hepatic steatosis,?liver?hemangioma?stable.? He?had?echo?showing?normal?appearing?LVEF?55?-60%.?CT?brain?without?contrast?showed?no acute?process.?He?did?have?moderate?to?severe?age?advanced?atrophy.? He?was?found?to?be?severely?hypokalemic,?with?low?Mg?and?low?calcium.? He?had?low?albumin?1.7,?significant?malnourishment.? He?was?noted?to?be?anemic?with?Hgb?decline?to?7?g/dL.?He?received?PRBC?while?admitted.?Iron?studies?showed?ferritin?2215,?iron?sat?102.9%.? Bilirubin?noted?to?be?0.4.?Ammonia?level?wnl.?B12?and?TSH?normal. Stool?occult?blood?negative.? He?underwent?core?biopsy?on?08/03/2022.? Path?confirmed?moderately?differentiated?NSCLC?/?adenocarcinoma. He?underwent?EBUS?with?[facility],?negative?for?malignancy. He?was?subsequently?lost?to?follow?up?and?missed?several?appts. He?re?established?care.?He?met?with?[facility]?and?was?not?a?candidate?for?surgery. He?continues?smoking,?1?ppd. He ultimately underwent?SBRT?with Dr Ortiz at [facility]. There?is?a?non?specific?nodule,?R?apex,?0.7?cm,?SUV?1.1?1.2,?which?is?being?monitored. He is now admitted with weakness, dyspnea, acute hyperkalemia. He presented with weakness and SOB. He has hx of COPD, lung cancer treated with RT as above. Continues to drink ETOH daily, states it's less than before. He was noted to have low BP and wbc elevated. Lactate was 8 and BNP elevated. Due to SIRS / concern for sepsis, Abx were started. He has also had diarrhea and several BM over past few days. Notes reduced oral intake. Denies ETOH withdrawal in past. Labs show leukocytosis with left shift (likely reactive), macrocytic anemia, normal plt count. His CTA chest shows no PE, left upper lobe mass 2.5 cm (reduced after SBRT), no new or enlarging masses, no LN. I discussed ongoing care for sepsis / SIRS, per hospitalist team. I would recommend addition of liver US given his wt loss and chronic ETOH use. I will add work-up for anemia, including nutritional levels. He will continue CT chest surveillance q3-4 months. He does not require additional therapy at this time for responding lung cancer. ECOG PS 3. cc:: CC: Shankar Ruiz MD Review of Systems ROS Narrative A comprehensive 12 point review of systems was conducted and is negative other than that reported in the history of present illness. [facility] Medical History (Updated 07/19/23 @ 11:44 by Shankar Ruiz MD) Sepsis ?A41.9 - Sepsis, unspecified organism (ICD-10) Dyspnea ?R06.00 - Dyspnea, unspecified (ICD-10) Disorder of electrolytes ?E87.8 - Other disorders of electrolyte and fluid balance, not elsewhere classified (ICD-10) Generalized weakness ?R53.1 - Weakness (ICD-10) Hypokalemia ?E87.6 - Hypokalemia (ICD-10) Elevated brain natriuretic peptide (BNP) level ?R79.89 - Other specified abnormal findings of blood chemistry (ICD-10) (HFpEF) heart failure with preserved ejection fraction ?I50.30 - Unspecified diastolic (congestive) heart failure (ICD-10) Generalized weakness ?R53.1 - Weakness (ICD-10) Liver mass ?R16.0 - Hepatomegaly, not elsewhere classified (ICD-10) Anemia ?D64.9 - Anemia, unspecified (ICD-10) New onset of congestive heart failure ?I50.9 - Heart failure, unspecified (ICD-10) Alcoholic ?F10.20 - Alcohol dependence, uncomplicated (ICD-10) Mass of upper lobe of left lung ?R91.8 - Other nonspecific abnormal finding of lung field (ICD-10) Adult failure to thrive ?R62.7 - Adult failure to thrive (ICD-10) Lung mass ?R91.8 - Other nonspecific abnormal finding of lung field (ICD-10) Generalized weakness ?R53.1 - Weakness (ICD-10) Surgical History (Updated 08/03/22 @ 15:40 by Kayli Licea) History of tonsillectomy ?Z90.89 - Acquired absence of other organs (ICD-10) History of appendectomy ?Z90.49 - Acquired absence of other specified parts of digestive tract (ICD-10) Social History Smoking status: Current every day smoker Highest level of school completed/degree received: 9th grade Gender Identity: male Meds Home Medications and Allergies Home Medications ?Medication ?Instructions ?Recorded ?Confirmed ?Type metoprolol succinate 50 mg 50 mg PO DAILY 07/26/22 07/19/23 History tablet,extended release 24 hr pantoprazole 40 mg tablet,delayed 40 mg PO DAILY 4 weeks #28 tabs 12/04/22 07/19/23 Rx release (Protonix) potassium chloride 10 mEq 10 meq PO TID #90 tabs 12/04/22 07/19/23 Rx tablet,extended release(part/cryst) (Klor-Con M) calcium carbonate 600 mg PO .TIDAC 07/19/23 07/19/23 History magnesium oxide 400 mg (241.3 mg 400 mg PO TID 07/19/23 07/19/23 History magnesium) tablet Allergies Allergy/AdvReac Type Severity Reaction Status Date / Time No Known Drug Allergies Allergy Verified 07/18/23 16:34 Exam Narrative Exam Narrative: Documenting provider has reviewed patient's vital signs: yes Common normals: no apparent distress and oriented x3 HENMT Common normals: normocephalic Eye Common normals: PERRL and EOMs intact bilaterally Respiratory Common normals: normal respiratory effort and clear to auscultation bilaterally Cardio Common normals: regular rate, regular rhythm, no gallops, no murmurs and no rub GI Common normals: Normal to inspection, nondistended, normoactive bowel sounds present and non-tender Extremity Common normals: no pedal edema Constitutional Vital Signs, click to edit/add: Last Vital Signs Temp 96.8 F L 07/19/23 15:55 Pulse 106 H 07/19/23 16:01 Resp 23 H 07/19/23 16:01 BP 90/72 07/19/23 16:01 Pulse Ox 97 07/19/23 12:00 O2 Del Method Room Air 07/18/23 23:25 Results Labs Labs: Short CBC 07/18/23 07/19/23 Range/Units 18:38 04:36 WBC 17.4 H 15.6 H (4.0-11.0) 10^3/uL Hgb 9.7 L 8.7 L (14.0-18.0) g/dL Hct 28.3 L 25.7 L (42.0-54.0) % Plt Count 185 179 (150-450) 10^3/uL BMP 07/18/23 07/19/23 19:15 04:36 Sodium 124 L* 126 L Potassium 5.7 H 4.2 Chloride 94 L 97 L Carbon Dioxide 19.1 L 17.8 L BUN 9.0 10.0 Creatinine 1.47 H 1.25 Glucose 132 H 83 Calcium 7.7 L 6.9 L Cardiac Enzymes 07/18/23 Range/Units 17:17 Total Creatine Kinase 33 L (39-308) U/L CK-MB (CK-2) 1.76 (<=3.60) ng/mL Liver Function 07/18/23 07/19/23 Range/Units 19:15 04:36 Total Bilirubin 0.8 1.0 (0.2-1.0) mg/dL AST 82 H 60 H (15-37) U/L ALT 62 47 (16-63) U/L Alkaline Phosphatase 219 H 170 H (46-116) U/L Albumin 1.9 L 1.4 L (3.4-5.0) g/dL Urine 07/19/23 Range/Units 10:55 Urine Color Yellow (YELLOW) Urine Clarity Clear (CLEAR) Urine pH 5.5 (5.0-9.0) Ur Specific [place] 1.015 (1.005-1.025) Urine Protein Negative (NEG/TRACE) mg/dL Urine Glucose (UA) Negative (NEGATIVE) mg/dL Additional Findings Additional findings: 07/18/2023 CT/CT angio chest IMPRESSION: 1. No evidence of pulmonary thromboembolism. 2. Aneurysmal proximal descending thoracic aorta measuring 4 cm. Aneurysmal proximal left subclavian artery measuring 3 cm. 3. Left upper lobe lung 2.5 cm mass, decreased in size compared to prior scan. 4. Moderate COPD. Electronically authenticated by: ELIUD KHOURY Date: 07/18/2023 22:03 Assessment and Plan Assessment and Plan (1) Dehydration: (2) Diarrhea: (3) Alcohol abuse: (4) Leukocytosis: (5) Adenocarcinoma of left lung: (6) Chronic heart failure with preserved ejection fraction (HFpEF): (7) COPD (chronic obstructive pulmonary disease): (8) Hyponatremia: (9) Hypomagnesemia: (10) Hypocalcemia: (11) Acute hyperkalemia: (12) Tobacco dependence: (13) Protein-calorie malnutrition, moderate: Plan Impression: # Early stage left sided lung cancer / adenocarcinoma treated with SBRT # Extensive tobacco use # Extensive ETOH history # Weakness, poor appetite, low albumin # Hx of hepatic steatosis and liver hemangioma # Hx of non-specific R lung nodule, 0.7 cm, being monitored # SIRS / sepsis # Acute hyperkalemia # SOB / COPD # Macrocytic anemia # Leukocytosis with left shift PLAN: - would recommend iron studies, b12, folic acid - would recommend liver US given his poor appetite, wt loss, low albumin, ongoing ETOH - reviewed CTA chest this admission. Lung cancer is responding to recent SBRT. He has no new or enlarging masses. No enlarged LN. No signs of relapsing disease. - continue care for SIRS / sepsis - he will need repeat CT chest for lung cancer surveillance in 3-4 months. This can be coordinated from our [place] [facility] and [facility]. - he does not require additional therapy for his lung cancer at this time Jennifer Garber MD Hematology Oncology
[2023-07-19] MEDS: ALBUMIN HUMAN 25 GM/100 ML PREMIX IV ×2 (17:09→18:19)
--- NOTE | 2023-07-19 22:35 | PC.NURSE ---
Patient asymptomatic, Sleeping soundly and aroused with verbal stimuli.
[2023-07-20] VITALS (54 sets, daily range): BP systolic 105–151; BP diastolic 70–95; PULSE 76–124; TEMP 36.4–36.9; O2SAT 91–101; BMI 23.3
[2023-07-20] MEDS: VANCOMYCIN HCL 1,000 MG in 0.9 % SODIUM CHLORIDE 250 ML 250 MG IV ×2 (00:39→08:33)
[2023-07-20] MEDS: PIPERACILLIN SODIUM/TAZOBACTAM 3.375 GM in 0.9 % SODIUM CHLORIDE 50 ML IV ×3 (01:51→17:00)
--- NOTE | 2023-07-20 02:15 | PC.NURSE ---
Large loose brown stool noted when up to bedside commode.
[2023-07-20 04:12] LABS: Basophils Percent Auto 0.3 % (0.2-2.0); Eosinophils Absolute Auto 0.1 10^3/uL (0.0-0.7); Eosinophils Percent Auto 0.8 % (0.9-7.0); Immature Granulocytes Abs Auto 0.04 10^3/uL (0.00-0.03); Immature Granulocytes Pct Auto 0.4 % (0.0-0.5); Lymphocytes Percent Auto 9.8 % (20.5-60.0); Mean Corpuscular HGB Conc 33.8 g/dL (29.9-35.2); Mean Corpuscular Hemoglobin 33.7 pg (25.9-34.0); Mean Corpuscular Volume 99.5 fL (80.0-94.0); Mean Platelet Volume 9.8 fL (9.5-13.5); Monocytes Absolute Auto 0.6 10^3/uL (0.3-0.8); Monocytes Percent Auto 6.1 % (1.7-12.0); Neutrophils Absolute Auto 8.3 10^3/uL (1.4-6.5); Neutrophils Percent Auto 82.6 % (43.0-75.0); Platelet Count 155 10^3/uL (150-450); Red Blood Count 1.96 10^6/uL (4.70-6.10); Red Cell Distribution Width 13.2 % (11.0-15.0); White Blood Count 10.1 10^3/uL (4.0-11.0)
[2023-07-20 04:25] LABS: Ammonia 14 umol/L (11-32)
[2023-07-20 04:29] LABS: Alanine Aminotransferase 31 U/L (16-63); Albumin Globulin Ratio 0.9; Albumin Level 2.1 g/dL (3.4-5.0); Alkaline Phosphatase 113 U/L (46-116); Anion Gap 12.7; Aspartate Amino Transferase 32 U/L (15-37); BUN Creatinine Ratio 8.5; Bilirubin Total 0.9 mg/dL (0.2-1.0); Calcium 7.5 mg/dL (8.5-10.1); Carbon Dioxide 18.4 mmol/L (21.0-32.0); Chloride 102 mmol/L (98-107); Estimated GFR (African America >60 (>=60); Estimated GFR (Non-African Ame >60 (>=60); Globulin 2.3 g/dL; Glucose 89 mg/dL (74-106); Magnesium 1.8 mg/dL (1.8-2.4); Potassium 3.1 mmol/L (3.5-5.1); Sodium 130 mmol/L (136-145); Total Protein 4.4 g/dL (6.4-8.2)
[2023-07-20 04:42] LABS: Hematocrit 19.5 % (42.0-54.0); Hemoglobin 6.6 g/dL (14.0-18.0)
--- NOTE | 2023-07-20 07:00 | US_ITS ---
The [address] [address] Patient Name: BOBBY GRAJEDA MRN: [id number] date: 1960 Sex: M Assigned Patient Location: ICU Current Patient Location: ICU Accession/Order Number: [id number] Exam Date: 07/20/2023 07:20 Report Date: 07/20/2023 08:12 At the request of: ALVIN JASSO Procedure: US right upper quadrant EXAM: US right upper quadrant HISTORY: Alcohol abuse, elevated LFTs COMPARISON: 07/29/2022 TECHNIQUE: Grayscale, color and Doppler FINDINGS: The liver is normal in size and contour. Diffuse increase in hepatic echotexture with no focal mass. Normal hepatopedal flow in the main portal vein with velocity of 25 cm/s. The gallbladder wall is mildly thickened measuring 3.1 mm. No pericholecystic fluid. No cholelithiasis. The common bile duct measures 5.4 mm. The pancreas is poorly visualized due to bowel gas. The right kidney is normal measuring 10.9 x 5.3 x 5.4 cm US/US right upper quadrant IMPRESSION: Gallbladder wall thickening, cholecystitis versus nondistention Echogenic liver suggesting hepatic steatosis Electronically authenticated by: ANNE GUADALUPE Date: 07/20/2023 08:12
[2023-07-20] MEDS: MULTIVITAMIN TABLET 1 TAB PO (08:03)
[2023-07-20] MEDS: CALCIUM CARBONATE 600 MG TABLET PO ×3 (08:03→16:57)
[2023-07-20] MEDS: OMEPRAZOLE 40 MG CAPSULE.DR PO (08:03)
[2023-07-20] MEDS: ENOXAPARIN SODIUM 40 MG/0.4 ML SYRINGE SUBQ (08:03)
[2023-07-20] MEDS: METOPROLOL SUCCINATE 50 MG TAB.ER.24H PO ×2 (08:03→20:58)
[2023-07-20] MEDS: FOLIC ACID 1 MG TABLET PO (08:03)
[2023-07-20] MEDS: MAGNESIUM OXIDE 400 MG TABLET PO ×3 (08:03→20:58)
[2023-07-20] MEDS: THIAMINE MONONITRATE (VIT B1) 100 MG TABLET PO (08:03)
[2023-07-20] MEDS: CALCIUM GLUCONATE 2,000 MG in 0.9 % SODIUM CHLORIDE 100 ML 120 MG IV (10:17)
[2023-07-20] MEDS: 0.9 % SODIUM CHLORIDE 1,000 ML 100 ML IV ×2 (10:17→20:58)
--- NOTE | 2023-07-20 10:46 | REH.PTDLY ---
Physical Therapy Daily Note PT Daily Note/Assess Start: 07/20/23 10:44 Freq: Status: Active Protocol: Document 07/20/23 10:44 MARIOLA (Rec: 07/20/23 10:46 MARIOLA [id number]) Visit Not Completed Visit Not Completed Due to: Other Other Reason Visit Not Completed Pt receiving PICC line this morning, unavailable at this time. Physical Therapy Daily Note/Assessment Time In 10:30 Time Out 10:32
--- NOTE | 2023-07-20 11:29 | SWNOTE1 ---
SW met with pt to discuss dc needs. Pt lives at home by himself. His daughter lives about 5 minutes away if he needs anything. He does still drive. His daughter helps with grocery shopping at times. Pt does have a walker and cane at home. His walker is his ex-'s. He voiced therapy recommended to use a walker, he will use it for a short time until stronger. LANDON advised pt that home health is recommended. LANDON explained to pt what HH is. Pt voiced he has a big dog at home and his home is not the most clean. SW let pt know that home health is there to get him stronger and he can put dog outside or in a separate room. At this time pt is refusing home health. LANDON advised pt to think about it for his own safety and SW will check back tomorrow.
--- NOTE | 2023-07-20 11:31 | PM.PN ---
Progress Note: Subjective Subjective Interval history: Patient feels better this am. Less SOB and not as fatigued. No abdominal pain or discomfort. BP improved. Denies feeling shaky or jittery. Continues to have diarrhea and frequent loose stools. Labs improved this am. WBC normal and afebrile. UA normal. RUQ US showed fatty liver and questionable GB wall thickness but no pain. Hgb decreased overnight. Exam Constitutional Vital Signs, click to edit/add: Last Vital Signs Temp 97.6 F 07/20/23 11:28 Pulse 91 H 07/20/23 11:28 Resp 20 07/20/23 11:28 BP 111/75 07/20/23 11:28 Pulse Ox 99 07/20/23 11:28 O2 Del Method Room Air 07/20/23 11:28 Documenting provider has reviewed patient's vital signs: yes Common normals: no apparent distress, oriented x3 and alert HENMT Common normals: normocephalic Eye Common normals: PERRL and EOMs intact bilaterally Respiratory Common normals: normal respiratory effort and clear to auscultation bilaterally Cardio Common normals: regular rate, regular rhythm, no gallops, no murmurs and no rub GI Common normals: Normal to inspection, nondistended, normoactive bowel sounds present and non-tender Palpation: no guarding Extremity Common normals: no pedal edema Progress Note: Objective Labs Labs: Short CBC 07/20/23 Range/Units 04:01 WBC 10.1 (4.0-11.0) 10^3/uL Hgb 6.6 L* D (14.0-18.0) g/dL Hct 19.5 L* (42.0-54.0) % Plt Count 155 (150-450) 10^3/uL BMP 07/20/23 04:01 Sodium 130 L Potassium 3.1 L Chloride 102 Carbon Dioxide 18.4 L BUN 9.0 Creatinine 1.06 Glucose 89 Calcium 7.5 L Liver Function 07/20/23 Range/Units 04:01 Total Bilirubin 0.9 (0.2-1.0) mg/dL AST 32 (15-37) U/L ALT 31 (16-63) U/L Alkaline Phosphatase 113 (46-116) U/L Albumin 2.1 L (3.4-5.0) g/dL Urine 07/19/23 Range/Units 10:55 Urine Color Yellow (YELLOW) Urine Clarity Clear (CLEAR) Urine pH 5.5 (5.0-9.0) Ur Specific [place] 1.015 (1.005-1.025) Urine Protein Negative (NEG/TRACE) mg/dL Urine Glucose (UA) Negative (NEGATIVE) mg/dL Progress Note: A&P Assessment and Plan (1) Dehydration: (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 Developed worsening anemia and give PRBC. Continued diarrhea and check GI panel. WBC normal and no evidence of infection. Stop zosyn. Await cultures. Replace calcium and monitor labs. Continue PT/OT for weakness. Continue to monitor for alcohol withdrawal.
--- NOTE | 2023-07-20 11:43 | CM.NOTE ---
Rounds made with Dr. Ruiz. Dr. Ruiz reviews potential need for PRBCs today due to low H/H. Dr. Ruiz also discusses other labs and testing. Mr. Velazco verbalizes understanding.
--- NOTE | 2023-07-20 12:10 | PT.DAILY ---
Physical Therapy Daily Note PT Daily Note/Assess Start: 07/20/23 10:44 Freq: Status: Active Protocol: Document 07/20/23 12:02 BEKAHSHELLIEESPERANZA (Rec: 07/20/23 12:10 [facility] [id number][facility] Physical Therapy Daily Note/Assessment Time In/Time Out Time In 11:40 Time Out 11:53 Pain In Pain N/A Pain Out Pain N/A Subjective Subjective Pt supine upon arrival. Receiving blood but nursing OK 'd session. Therapeutic Exercise Time Therapeutic Exercise Minutes (minutes) 8 Therapeutic Exercise Units 1 Therapeutic Exercise Treatment Therapeutic Exercise Treatment Seated unsupported at EOB Ap, LAQ, marches and abd step outs 10x ea. Standing at RW HR, marches, hip flexion and hip abd 10xea with close SBA. Therapeutic Activity Time Therapeutic Activity Minutes (minutes) 5 Therapeutic Activity Units 0 Therapeutic Activity Treatment Bed Mobility Ability Standby Assistance Chair Transfer Ability Standby Assistance Therapeutic Activity Comments Supine>sit SBA with increased time needed. Sits EOB unsupported 5 min without LOB. Sit>stand SBA. Standing ex complete at RW with bilat UE support and close SBA. Pt then amb in room 60' total with RW , SBA with assist for IV pole. Denies wanting in chair for lunch. Sit>supine SBA. remains supine with call light in reach and needs met. Nursing notified he was offered chair but pt declines. Total Physical Therapy Time Total Therapy Minutes 13 Total Physical Therapy Units 1 Summary Daily Note Summary Improved gait endurance. Min fatigue. Fair standing balance with ex - needing UE support on RW to maintain balance.
[2023-07-20 14:45] LABS: Basophils Percent Auto 0.2 % (0.2-2.0); Eosinophils Absolute Auto 0.1 10^3/uL (0.0-0.7); Eosinophils Percent Auto 0.7 % (0.9-7.0); Hemoglobin 7.7 g/dL (14.0-18.0); Immature Granulocytes Abs Auto 0.05 10^3/uL (0.00-0.03); Immature Granulocytes Pct Auto 0.5 % (0.0-0.5); Lymphocytes Absolute Auto 0.9 10^3/uL (1.2-3.8); Mean Corpuscular HGB Conc 34.8 g/dL (29.9-35.2); Mean Corpuscular Hemoglobin 33.8 pg (25.9-34.0); Mean Corpuscular Volume 96.9 fL (80.0-94.0); Mean Platelet Volume 9.7 fL (9.5-13.5); Monocytes Absolute Auto 0.6 10^3/uL (0.3-0.8); Monocytes Percent Auto 5.7 % (1.7-12.0); Neutrophils Absolute Auto 8.6 10^3/uL (1.4-6.5); Neutrophils Percent Auto 83.9 % (43.0-75.0); Platelet Count 144 10^3/uL (150-450); Red Blood Count 2.28 10^6/uL (4.70-6.10); Red Cell Distribution Width 13.9 % (11.0-15.0); White Blood Count 10.3 10^3/uL (4.0-11.0)
[2023-07-20 14:47] LABS: Hematocrit 22.1 % (42.0-54.0)
[2023-07-20 16:11] LABS: Calcium, Ionized, Serum 4.8 mg/dL (4.5-5.6)
--- NOTE | 2023-07-20 16:19 | DIETREC ---
Recommend 237 mL Ensure Clear BID, 30 mL PRO-stat BID, MVI w/minerals 1x daily. [place] Text to Dr. Ruiz.
[2023-07-20 19:07] LABS: Basophils Percent Auto 0.2 % (0.2-2.0); Eosinophils Percent Auto 0.3 % (0.9-7.0); Hematocrit 24.4 % (42.0-54.0); Hemoglobin 8.6 g/dL (14.0-18.0); Immature Granulocytes Abs Auto 0.05 10^3/uL (0.00-0.03); Immature Granulocytes Pct Auto 0.5 % (0.0-0.5); Lymphocytes Absolute Auto 0.8 10^3/uL (1.2-3.8); Lymphocytes Percent Auto 8.5 % (20.5-60.0); Mean Corpuscular HGB Conc 35.2 g/dL (29.9-35.2); Mean Corpuscular Hemoglobin 33.3 pg (25.9-34.0); Mean Corpuscular Volume 94.6 fL (80.0-94.0); Mean Platelet Volume 9.6 fL (9.5-13.5); Monocytes Absolute Auto 0.6 10^3/uL (0.3-0.8); Monocytes Percent Auto 6.4 % (1.7-12.0); Neutrophils Absolute Auto 7.8 10^3/uL (1.4-6.5); Neutrophils Percent Auto 84.1 % (43.0-75.0); Platelet Count 132 10^3/uL (150-450); Red Blood Count 2.58 10^6/uL (4.70-6.10); Red Cell Distribution Width 14.4 % (11.0-15.0); White Blood Count 9.3 10^3/uL (4.0-11.0)
[2023-07-21] VITALS (28 sets, daily range): BP systolic 126–157; BP diastolic 78–110; PULSE 74–208; TEMP 36.8–36.9; O2SAT 91–99
[2023-07-21] MEDS: PIPERACILLIN SODIUM/TAZOBACTAM 3.375 GM in 0.9 % SODIUM CHLORIDE 50 ML IV (01:38)
[2023-07-21] MEDS: LORAZEPAM 1 MG TABLET PO (01:38)
[2023-07-21 04:01] LABS: Basophils Percent Auto 0.3 % (0.2-2.0); Eosinophils Absolute Auto 0.1 10^3/uL (0.0-0.7); Eosinophils Percent Auto 0.7 % (0.9-7.0); Hematocrit 26.9 % (42.0-54.0); Hemoglobin 9.4 g/dL (14.0-18.0); Immature Granulocytes Abs Auto 0.06 10^3/uL (0.00-0.03); Immature Granulocytes Pct Auto 0.6 % (0.0-0.5); Lymphocytes Absolute Auto 1.1 10^3/uL (1.2-3.8); Lymphocytes Percent Auto 10.8 % (20.5-60.0); Mean Corpuscular HGB Conc 34.9 g/dL (29.9-35.2); Mean Corpuscular Hemoglobin 32.6 pg (25.9-34.0); Mean Corpuscular Volume 93.4 fL (80.0-94.0); Mean Platelet Volume 9.4 fL (9.5-13.5); Monocytes Absolute Auto 0.8 10^3/uL (0.3-0.8); Monocytes Percent Auto 7.4 % (1.7-12.0); Neutrophils Absolute Auto 8.5 10^3/uL (1.4-6.5); Neutrophils Percent Auto 80.2 % (43.0-75.0); Platelet Count 149 10^3/uL (150-450); Red Blood Count 2.88 10^6/uL (4.70-6.10); White Blood Count 10.6 10^3/uL (4.0-11.0)
[2023-07-21 04:18] LABS: Ammonia 23 umol/L (11-32)
[2023-07-21 04:19] LABS: Alanine Aminotransferase 30 U/L (16-63); Albumin Globulin Ratio 0.8; Albumin Level 2.1 g/dL (3.4-5.0); Alkaline Phosphatase 107 U/L (46-116); Aspartate Amino Transferase 30 U/L (15-37); Bilirubin Total 1.8 mg/dL (0.2-1.0); Calcium 7.6 mg/dL (8.5-10.1); Carbon Dioxide 19.8 mmol/L (21.0-32.0); Chloride 104 mmol/L (98-107); Estimated GFR (African America >60 (>=60); Estimated GFR (Non-African Ame >60 (>=60); Globulin 2.5 g/dL; Glucose 84 mg/dL (74-106); Magnesium 1.4 mg/dL (1.8-2.4); Sodium 131 mmol/L (136-145); Total Protein 4.6 g/dL (6.4-8.2)
[2023-07-21] MEDS: NICOTINE 14 MG PATCH.TD24 TD (04:26)
[2023-07-21] MEDS: MAGNESIUM OXIDE 400 MG TABLET PO ×2 (04:27→13:11)
[2023-07-21 04:43] LABS: Potassium 2.8 mmol/L (3.5-5.1)
[2023-07-21] MEDS: POTASSIUM CHLORIDE 10 MEQ ER TABLET 40 MEQ PO ×2 (08:28→13:11)
[2023-07-21] MEDS: CALCIUM CARBONATE 600 MG TABLET PO ×2 (08:28→13:12)
[2023-07-21] MEDS: MULTIVITAMIN TABLET 1 TAB PO (08:28)
[2023-07-21] MEDS: OMEPRAZOLE 40 MG CAPSULE.DR PO (08:28)
[2023-07-21] MEDS: MAGNESIUM SULFATE IN WATER 2 GM/50 ML PREMIX IV (08:29)
[2023-07-21] MEDS: FOLIC ACID 1 MG TABLET PO (08:29)
[2023-07-21] MEDS: METOPROLOL SUCCINATE 50 MG TAB.ER.24H PO (08:29)
[2023-07-21] MEDS: THIAMINE MONONITRATE (VIT B1) 100 MG TABLET PO (08:29)
[2023-07-21] MEDS: ENOXAPARIN SODIUM 40 MG/0.4 ML SYRINGE SUBQ (08:30)
--- NOTE | 2023-07-21 10:22 | REH.PTDLY ---
Physical Therapy Daily Note PT Daily Note/Assess Start: 07/20/23 10:44 Freq: Status: Active Protocol: Document 07/21/23 10:17 MARIOLA (Rec: 07/21/23 10:22 MARIOLA [id number]) Physical Therapy Daily Note/Assessment Time In 09:58 Time Out 10:08 Subjective Pt reports he thinks he gets to leave today. No other complaints currently. Therapeutic Exercise Minutes (minutes) 6 Therapeutic Exercise Units 1 Therapeutic Exercise Treatment Instructed in B LE seated exs 15x ea for improved strength with demo given. Exs included HR, LAQ, hip abd, hip add squeeze and marching Therapeutic Activity Minutes (minutes) 4 Therapeutic Activity Units 0 Therapeutic Activity Comments Sit to stand transfers CGA. Gait training with RW 50 feet SBA for safety. Pt fatigues with gait in legs. Cues for pt to reach back for chair upon sitting and to feel it behind both legs. Pt attempts to sit too soon. Total Therapy Minutes 10 Total Physical Therapy Units 1 Daily Note Summary Progressed gait distance today and reps with exs. Pt has jake LE fatigue post rx. Pt requires SBA for safety. Pt would benefit from rehab stay to gain strength prior to returning home.
--- NOTE | 2023-07-21 11:29 | PM.PN ---
Progress Note: Subjective Subjective Interval history: Patient continues to improve. Received 2 units PRBC yesterday and strength improved. Still overall weakness and problems ambulating. Mild SOB and cough. No sputum. Afebrile. No abdominal pain or discomfort. BP normal. Denies feeling shaky or jittery. Continues to have diarrhea and frequent loose stools. Labs improved this am. WBC normal and afebrile. No chest pain or palpitations. Exam Constitutional Vital Signs, click to edit/add: Last Vital Signs Temp 98.5 F 07/21/23 04:39 Pulse 90 07/21/23 11:00 Resp 18 07/21/23 11:00 BP 126/84 07/21/23 04:39 Pulse Ox 95 07/21/23 04:39 O2 Del Method Room Air 07/21/23 04:39 Documenting provider has reviewed patient's vital signs: yes Common normals: no apparent distress, oriented x3 and alert HENMT Common normals: normocephalic Eye Common normals: PERRL and EOMs intact bilaterally Respiratory Common normals: normal respiratory effort and clear to auscultation bilaterally Cardio Common normals: regular rate, regular rhythm, no gallops, no murmurs and no rub GI Common normals: Normal to inspection, nondistended, normoactive bowel sounds present and non-tender Extremity Common normals: no pedal edema Progress Note: Objective Labs Labs: Short CBC 07/20/23 07/20/23 07/21/23 Range/Units 14:38 19:00 03:50 WBC 10.3 9.3 10.6 (4.0-11.0) 10^3/uL Hgb 7.7 L 8.6 L 9.4 L (14.0-18.0) g/dL Hct 22.1 L* 24.4 L 26.9 L (42.0-54.0) % Plt Count 144 L 132 L 149 L (150-450) 10^3/uL BMP 07/21/23 03:50 Sodium 131 L Potassium 2.8 L* Chloride 104 Carbon Dioxide 19.8 L BUN 7.0 Creatinine 0.88 Glucose 84 Calcium 7.6 L Liver Function 07/21/23 Range/Units 03:50 Total Bilirubin 1.8 H (0.2-1.0) mg/dL AST 30 (15-37) U/L ALT 30 (16-63) U/L Alkaline Phosphatase 107 (46-116) U/L Albumin 2.1 L (3.4-5.0) g/dL Progress Note: A&P Assessment and Plan (1) Dehydration: (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 Hgb improved after 2 units and strength improved. PT notes weakness and recommends SNF. Afebrile. Stop zosyn and no evidence of infection. Give potassium and magnseium. Monitor labs and vitals. Will sent information to SNF for placement.
--- NOTE | 2023-07-21 11:31 | CM.NOTE ---
Rounds made with Dr. Ruiz. Dr. Ruiz reviews abnormal labs and plan of care. Mr. Velazco is now agreeable to SNF at either facility in [place].
--- NOTE | 2023-07-21 12:03 | SWNOTE1 ---
SW spoke to case management and pt is now agreeable to go to SNF for rehab. He would like [facility] as first choice and [facility] as second. Referral sent to [facility]. Referral included face sheet, ED note, H&P, provider notes, case management report, wound consult, nursing notes, diagnostic imaging, med list, and PT/OT notes.
[2023-07-21] MEDS: PROSTAT 15 GM PROTEIN/100 CAL 30 ML LIQUID PACKET PO (13:11)
--- NOTE | 2023-07-21 15:39 | SWNOTE1 ---
[facility] is able to accept today. LANDON sent over dc med to Kylie at [facility]. LANDON spoke to daughter and [facility] is not able to take him and the other option is ambulance. Daughter voiced she will transport. Pt is going to [facility] skilled. LANDON notified [facility] of time. LANDON completed HENS.
--- NOTE | 2023-07-21 21:02 | P.DS_ITS ---
DS: Providers Provider Date of admission: 07/18/23 22:56 Primary care physician: Jennifer Garber MD Consults: 07/18/23 Consult to Dietitian Routine Reason for consultation: unintentional weight loss, cancer patient Consult to Shirt Maker Routine Reason for consult:: Advanced Directives 07/19/23 Occupational Therapy Eval and Treat Routine Reason for consultation: Weakness Physical Therapy Eval and Treat Routine Reason for consultation: Weakness Has provider been notified: Yes DS: Diagnosis Discharge Diagnosis (1) Dehydration: (2) Megaloblastic anemia due to alcoholism: (3) Alcohol abuse: (4) Alcoholic fatty liver: (5) Diarrhea: (6) Leukocytosis: (7) Adenocarcinoma of left lung: (8) Chronic heart failure with preserved ejection fraction (HFpEF): (9) COPD (chronic obstructive pulmonary disease): (10) Hyponatremia: (11) Hypomagnesemia: (12) Hypocalcemia: (13) Acute hyperkalemia: (14) Tobacco dependence: (15) Severe protein-calorie malnutrition: DS: Summary Hospital Course Hospital Course: Reason for admission: See ER note and H&P for details. 62 y/o male to ER with weakness and SOB. History of COPD and lung cancer treated with radiation. Drinks alcohol daily and reported to be a heavy drinker. C/o increased weakness and SOB with exertion. To ER and afebrile. Noted to have low BP and WBC elevated. Lactate elevated at 8 and BNP elevated. Chest x-ray without acute change. No source of infection but concerned of sepsis and started antibiotics. Admitted for treatment. Hospital course: Started zosyn and vancomycin for possible sepsis. Continued to c/o weakness. Reports recent diarrhea and several BM daily over past few days. Decreased oral intake. Denies every having withdrawal for alcohol. Found to have severe dehydration and given IV fluids. BP improved with treatment. Replaced electrolytes. Labs improved. Afebrile. Urine negative. Stopped vancomycin. PT evaluated and severe weakness. RUQ US performed and showed fatty liver. Oncology evaluated patient. Hgb decreased and gave 2 units PRBC. [place] better and strength improved. Cultures negative. Vitals stable and WBC normal. Afebrile. Continued to replace electrolytes. Dietary noted severe PCM and started prostat. PT recommended SNF for strengthening. Information sent to SNF and accepted. Transferred to SNF in stable condition for rehab. Continue medication as directed. Time Spent with Patient Time attestation: Total time spent providing and/or coordinating discharge services: Time spent: greater than 30 minutes Exam Constitutional Vital Signs, click to edit/add: Last Vital Signs Temp 98.5 F 07/21/23 04:39 Pulse 129 H 07/21/23 15:44 Resp 24 H 07/21/23 15:44 BP 133/78 07/21/23 15:44 Pulse Ox 99 07/21/23 07:25 O2 Del Method Room Air 07/21/23 04:39 Documenting provider has reviewed patient's vital signs: yes Common normals: no apparent distress, oriented x3 and alert HENMT Common normals: normocephalic Eye Common normals: PERRL and EOMs intact bilaterally Respiratory Common normals: normal respiratory effort and clear to auscultation bilaterally Cardio Common normals: regular rate, regular rhythm, no gallops, no murmurs and no rub GI Common normals: Normal to inspection, nondistended, normoactive bowel sounds present and non-tender Extremity Common normals: no pedal edema DS: Data Data Completed and Pending Labs on day of discharge: Labs from last 24 hours 07/21/23 03:50 WBC 10.6 RBC 2.88 L Hgb 9.4 L Hct 26.9 L MCV 93.4 MCH 32.6 MCHC 34.9 RDW 15.0 Plt Count 149 L MPV 9.4 L Neut % (Auto) 80.2 H Lymph % (Auto) 10.8 L [place] % (Auto) 7.4 Eos % (Auto) 0.7 L Baso % (Auto) 0.3 Neut # (Auto) 8.5 H Lymph # (Auto) 1.1 L [place] # (Auto) 0.8 Eos # (Auto) 0.1 Baso # (Auto) 0.0 Abs Immat Gran (auto) 0.06 H Imm/Tot Granulo (auto) 0.6 H Sodium 131 L Potassium 2.8 L* Chloride 104 Carbon Dioxide 19.8 L Anion Gap 10.0 BUN 7.0 Creatinine 0.88 Est GFR ( Amer) >60 Est GFR (Non-Af Amer) >60 BUN/Creatinine Ratio 8.0 Glucose 84 Calcium 7.6 L Magnesium 1.4 L Total Bilirubin 1.8 H AST 30 ALT 30 Alkaline Phosphatase 107 Ammonia 23 Total Protein 4.6 L Albumin 2.1 L Globulin 2.5 Albumin/Globulin Ratio 0.8 Preliminary micro results at discharge 07/18/23 17:29 - Preliminary Blood NO GROWTH AT 36-48 HOURS. FINAL TO FOLLOW. 07/18/23 17:17 Blood Culture Result 1 - Preliminary Blood NO GROWTH AT 36-48 HOURS. FINAL TO FOLLOW. Discharge Plan Discharge Disposition: Xfer SNF Condition: Fair Discharge Medications: New folic acid 1 mg Tablet 1 mg PO QD Qty: 1 0RF thiamine mononitrate (vit B1) 100 mg Tablet 100 mg PO QD Qty: 1 0RF Continued calcium carbonate 600 mg calcium (1,500 mg) tablet 600 mg PO .TIDAC magnesium oxide 400 mg (241.3 mg magnesium) tablet 400 mg PO TID metoprolol succinate 50 mg tablet extended release 24 hr 50 mg PO DAILY potassium chloride [Klor-Con M10] 10 mEq Tablet,Er Particles/Crystals 10 meq PO TID Qty: 90 11RF pantoprazole [Protonix] 40 mg tablet,delayed release (DR/EC) 40 mg PO DAILY 28 Days Qty: 28 0RF Print Language: [place] 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
[2023-07-25 00:08] LABS: Vitamin B1 (Thiamine), Blood 94.5 nmol/L (66.5-200.0)
== END 2023-07-21 16:20 | DRG 640 ==
LOC: ER 22:23 → ICU 23:00
PROVIDERS: Nurse Practitioner Family; Registered Nurse; Admitting Provider Family Medicine; Emergency Provider Emergency Medicine; PCP Internal Medicine Hematology & Oncology; Visit Provider Family Medicine
DX: E86.0 Dehydration (principal); E43 Unspecified severe protein-calorie malnutrition; I50.32 Chronic diastolic (congestive) heart failure; R19.7 Diarrhea, unspecified; D72.829 Elevated white blood cell count, unspecified; J44.9 Chronic obstructive pulmonary disease, unspecified; E87.1 Hypo-osmolality and hyponatremia; E83.42 Hypomagnesemia; E83.51 Hypocalcemia; E87.5 Hyperkalemia; D53.1 Other megaloblastic anemias, not elsewhere classified; F10.20 Alcohol dependence, uncomplicated; R06.00 Dyspnea, unspecified; F17.200 Nicotine dependence, unspecified, uncomplicated; R53.1 Weakness; K70.0 Alcoholic fatty liver; Z85.118 Personal history of other malignant neoplasm of bronchus and lung; Z90.89 Acquired absence of other organs; Z90.49 Acquired absence of other specified parts of digestive tract; Z79.899 Other long term (current) drug therapy; Z68.23 Body mass index [BMI] 23.0-23.9, adult
CPT/HCPCS: 36415; 36430; 36569; 36592; 71045; 71275; 76705; 80053; 80320; 81003; 82140; 82330; 82550; 82553; 82607; 82746; 83605; 83735; 83874; 83880; 84100; 84134; 84145; 84425; 84484; 85007; 85025; 85027; 85610; 86850; 86900; 86901; 87040; 87081; 87507; 93005; 96361; 96365; 96366; 96367; 96368; 96372; 96375; 97110; 97162; 97165; 97535; 99285; C1887; J0612; J1650; J2543; J3370; J3411; J3475; P9016; P9046; Q9967

== ENCOUNTER 2023-07-27 02:14 | Outpatient (REF) | payer MEDICARE, OTHER, SELFPAY ==
--- OUTSIDE RECORDS SUMMARY | 2023-07-27 02:29 | XMS_ITS | CCD ---
Author Organization [facility] Care Team Providers Care Technical Support Analyst Name Role Phone EDWIN Liao, SEN Attending Unavailable EDWIN ., SEN Admitting [...] Unavailable WEST, DR ANNE Cornejo Consulting Unavailable KAREN, DR TREVINO Primary Care Unavailable HARSH, LAISHA Otto Attending Unavailable HARSH, LAISHA Otto Admitting Unavailable HIGHLANDER, LAISHA Otto Consulting Unavailable HIGHLANDER, LAISHA Otto Admitting Unavailable HOUSE, DR TREVINO Primary Care Unavailable HIGHLANDER, LAISHA Otto Attending Unavailable ITALO, DR LEIGH Mitchell Consulting Unavailable HARSH, LAISHA Otto Consulting Unavailable HARSH, LAISHA Otto Admitting Unavailable ZIEBER, DR LEIGH Mitchell Consulting Unavailable HOUSE, DR TREVINO Primary Care Unavailable HIGHLANDER, LAISHA Otto Attending Unavailable HIGHLANDER, LAISHA Otto Consulting Unavailable MARLENI GARBER Referring Unavailable CHINYERE CANDELARIA Attending Unavailable CHARLIE RODARTE Referring Unavaila ble CAYDEN, CHARLIE Referring Unavaila CHINYERE Carey Referring Unavailable CHINYERE CANDELARIA Attending Unavailable CHINYERE CANDELARIA Referring Unavailable House , Wade Wolf Primary Care Provider Chinyere Candelaria Unavailable Jennifer Garber MD Unavailable [phone] Chinyere Candelaria MD Unavailable [phone] MARTIN, SUDISH Referring Unavailable HOUSE SR, WADE [...] Unavailable ROBERTO, DON Referring Unavailable HOUSE SR, WDAE P Primary Care Unavailable ROBERTO, DON Attending [...] ON FILE] Propensity to adverse reactions (disorder) [facility] Repository Medications Current Medications Medication Drug Class(es) [...] 03-11-2023 Episodic Other aftercare (1 source) 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; Translations: [OTH SKILLED NURSING CURRENT DRUG THERAPY] Onset: 03-24-2022 Episodic Other [...] Test Name Value Interpretation Reference Range Facility [facility] 06-16-2023 CNPN Telephone (RADTSA) JARET GRAJEDA ([id number]) 1960 M Date Time Provider Department 06/16/23 [...] Status:Closed by CATHY JOVEL on 06/23/23 Normal [facility] CNOVon 04-08-2023 CNOV Office Visit (RADTSA ) JARET GRAJEDA ([id number]) 1960 M Date Time Provider Department 04/08/23 [...] 62-year-old gentleman diagnosed with a Stage IB, qO4H6A3, non-small cell lung cancer (adenocarcinoma) arising from [...] Encounter Status:Closed by DON MEJIA on 04/18/23 [facility]Mir[facility] JAR[facility] GRA[facility] ([id number]) 1960 M Date Time Provider Department 03/24/23 [...] Encounter Status:Closed by CATHY JOVEL on 03/28/23 [facility] 03[facility]11-2023 [facility] ([employer]) JARET GRAJEDA ([id number]) 1960 M Date Time Provider Department 03/11/23 [...] of lung [D49.1] Order(s):CT CHEST W IVCON [1095810] Order #: [id number] FUTURE [] iv contrast (will be provided [...] EachRfl: 0 CREATININE BLD [SQCRET] Order #: [id number] FUTURE Prescriptions as of 03/14/2023 - metoprolol [...] Encounter Status:Closed by LILI MARTINEZ on 03/14/23 Normal [facility] CNOVon 02-28-2023 CNOV Office Visit (RADTSA ) JARET GRAJEDA ([id number]) 1960 M Date Time Provider Department 02/28/23 [...] 62-year-old gentleman diagnosed with a Stage IB, yR9X0E3, non-small cell lung cancer (adenocarcinoma) arising from [...] Encounter Status:Closed by DON MEJIA on 03/03/23 Normal [facility] CNOVon 02-11-2023 CNOV Office Visit (RADTSA ) JARET GRAJEDA ([id number]) 1960 M Date Time Provider Department 02/11/23 11:30 AM DON MEJIA During your visit today, we recorded the following information about you: Don Mejia MD 02/22/2023 4:26 AM Addendum Radiation Oncology - Follow Up Note PATIENT NAME: Jaret Grajeda PATIENT DIAGNOSIS/PATIENT IDENTIFICATION: Mr. Grajeda is a 62-year-old gentleman diagnosed with Stage IB, hP5O9Z1, non-small cell lung cancer (adenocarcinoma) arising from [...] cancer. He met with Dr. Blue at [facility] and was recommended a cardiac workup [...] 62-year-old gentleman diagnosed with a Stage IB, xC6K3W7, non-small cell lung cancer (adenocarcinoma) arising from [...] as potent (more content not included)... Normal [facility] 01-25-2023 [facility] JARET GRAJEDA ([id number]) 1960 Date Time Provider Department 01/25/23 DON MEJIA During your visit today, we recorded the following information about you: Allergies As of Date: 01/25/2023 (No Known Allergies) Date Reviewed: 12/09/2022 Reviewed by: Shilpa Pop, Food Safety Specialist - Fully Assessed Prescriptions as of 01/26/2023 - metoprolol succinate ER (TOPROL XL) 50 mg 24 hr tablet Take 1 tablet by mouth every 12 hours. Problem List As Of Date: 01/25/2023 (None) Encounter Status:Closed by PURNIMA HAYES on 01/26/23 [facility] JARET GRAJEDA ([id number]) 1960 Date Time Provider Department 01/25/23 ROBERTO, [...] Date Reviewed: 12/09/2022 Reviewed by: Shilpa Pop, Food Safety Specialist - Fully Assessed Reason for Visit: Appointment Confirmation [3505] Prescriptions as of 01/26/2023 - metoprolol succinate ER (TOPROL XL) 50 mg 24 hr tablet Take 1 tablet by mouth every 12 hours. Problem List As Of Date: 01/25/2023 (None) Encounter Status:Closed by PURNIMA HAYES on 01/26/23 Normal [facility] CREATININE BLDon 01-24-2023 Creatinine [Mass/Vol] 0.84 mg/dL Normal 0.73-1.22 [facility] Comment on above: Order Comment: Wesley starr Type: BLOOD SPECIMENOrdering Facility: [facility] Address: [address] [place] [address] Performed By: #### C RET1 ####[facility] LABIA [id number] [place] [address] Creatinine and Glomerular filtration rate.predicted panel (S/P/Bld) 97 mL/min/1.73m??? Normal >=60 [facility] Comment on above: Order Comment: Wesley starr Type: BLOOD SPECIMENOrdering Facility: [facility] Address: [address] [place] [address] Result Comment: Racquel mated Glomerular Filtration Rate [...] actual GFR. Performed By: #### C RET1 ####[facility] LABCLIA [id number] [place] [address] CT CHEST W IVCONon 3 CT CHEST W IVCON * * *Final Report* * * DATE OF EXAM: Jan 24 2023 1:35PM [facility] 0539 - CT CHEST W IVCON / [...] study. The upper abdomen is otherwise unremarkable. Antenna Installer (topogram) images: No additional findings. IMPRESSION: 1. [...] Jan 25 2023 11:30A Dictated by: NOE BATRLETT MD This examination was interpreted and the report reviewed and electronically signed by: NOE BARTLETT MD on Jan 25 2023 11:55AM EST Thank you for allowing us to participate in the care of your patient. Should there be any questions regarding this interpretation, please call [phone]. If you are unable to reach us at the number above, please feel free to contact [facility] eRadiology at [phone]. [id number] N Normal [facility] NM PET/CT SKULL-THIGH SUBQon 01-24-2023 NM [...] report reviewed and electronically signed by: SAFIA ALFRED MD on Jan 25 2023 2:16PM EST Thank you for allowing us to participate in the care of your patient. Should there be any questions regarding this interpretation, please call [phone]. If you are unable to reach us at the number above, please feel free to contact [facility] at [phone]. [id number] N [facility] 01-13-2023 CNPN Telephone (THORMN) JARET GRAJEDA ([id number]) 1960 M Date Time Provider Department 01/13/23 DELFINA BLUE PARAMJIT During your visit today, we recorded the following information about you: Jeremiah Gibbs 01/13/2023 3:37 PM Signed Received OSH Hem/Onc office notes 01/04/23 fron [facility] Record scanned in Epic Jeremiah Gibbs, administrative assistant data entry Socrates Pastor RN 01/14/2023 2:29 PM Addendum pt to follow with rad onc, Dr Mejia [facility], see note from local oncology dr GARBER Allergies As of Date: 01/13/2023 (No Known Allergies) Date Reviewed: 12/09/2022 Reviewed by: Shilpa Pop, Food Safety Specialist - Fully Assessed Reason for Visit: Received Outside Medical Records [3576] Prescriptions as of 01/14/2023 - metoprolol succinate ER (TOPROL XL) 50 mg 24 hr tablet Take 1 tablet by mouth every 12 hours. Problem List As Of Date: 01/13/2023 (None) Encounter Status:Closed by JEREMIAH GIBBS on 01/13/23 [facility] 01-05-2023 CNPN Telephone (NCCAP) JARET GRAJEDA ([id number]) 1960 M Date Time Provider Department 01/05/23 [...] Date Reviewed: 12/09/2022 Reviewed by: Shilpa Pop, Food Safety Specialist - Fully Assessed Reason for Visit: Appointment Confirmation [2566] Prescriptions as of 01/06/2023 - iv contrast [...] Encounter Status:Closed by CATHY JOVEL on 01/06/23 [facility] 12-09-2022 [facility] Telephone (PARAMJIT) JARET GRAJEDA ([id number]) 1960 M Date Time Provider Department 12/09/22 MARTIN, SUDISH THORMN During your visit today, we recorded the [...] Date Reviewed: 12/09/2022 Reviewed by: Shilpa Pop, Food Safety Specialist - Fully Assessed Reason for Visit: Appointment Rescheduled [1024] Prescriptions as of 12/09/2022 - metoprolol succinate ER (TOPROL XL) 50 mg 24 hr tablet Take 1 tablet by mouth every 12 hours. Problem List As Of Date: 12/09/2022 (None) Encounter Status:Closed by SOLEDAD DUMONT on 12/09/[address] [facility] CARDIAC PERF STRESS/PHARM on 12-09-2022 NM CARDIAC PERF STRESS/PHARM * * *Final Report* * * DATE OF EXAM: Dec 09 2022 11:57AM [facility] 0006 - [place] CARDIAC PERF STRESS/PHARM / PROCEDURE REASON: multiple diagnoses * * * * Physician Interpretation * * * * Stress News Videographer Report: [facility] Date of service: 12/09/2022 10:08:36 AM Supervising [...] See administered radiotracer and doses below. Main [place] Date of service: 12/09/2022 10:08:36 AM Ordering [...] * * * -------- NM CTAC Report: [facility] Date of service: 12/09/2022 10:08:36 AM CTAC interpreting physician: Eagle Patel MD PATIENT: Name: MR. JARET GRAJEDA Age: 62 years Gender: M 1. Incidental Findings from limited non-diagnostic CTAC: - Coronary calcifications visualized. * * * Final * * * -------- Stress ECG Report: [place] [address] Date of service: 12/09/2022 10:08:36 AM Ordering physician: DELFINA BLUE medical insurance claims specialist: Shilpa Pop Principal Embedded Software Engineer: Elida Mckeon Interpreting physician: Eagle Patel MD [...] 148/86 mmHg. The double product achieved was [address]. Medications: Last Used METOPROLOL 7 Hours Resting ECG: Normal Sinus Rhythm Symptoms at rest: No symptoms Pharamco (more content not included)... Normal [facility] CNPNon 10-18-2022 CNPN Telephone (RADTSA) JARET GRAJEDA ([id number]) 1960 M Date Time Provider Department 10/18/22 DON MEJIA During your visit today, we [...] Of Date: 10/18/2022 (None) Encounter Status:Closed by ACTHY JOVEL on 12/28/22 Normal [facility] CNOVon 10-14-2022 CNOV Office Visit (THORMN ) JARET GRAJEDA ([id number]) 1960 M Date Time Provider Department 10/14/22 3:40 PM DELFINA BLUE During your visit today, we recorded the following information about you: Temperature Pulse Respiration Blood pressure 97.5 degrees 117/minute 14/minute 180/110 Weight Height 73.5 kg 1.73 m Delfina Blue MD, PhD 10/15/2022 8:39 AM Unsigned Pension Administrator [place] [address] [place] DEPARTMENT OF THORACIC AND CARDIOVASCULAR SURGERY NAME: NICCI, JARET CLINIC #: [id number] DATE: 10/14/2022 AGE: 62 PHYSICIAN: Delfina Blue [...] very near future. Delfina Blue M.D., Ph.D. :[id number] /[id number] Fernando Noel MD 10/15/2022 4:54 PM Signed [facility] THORACIC SURGERY OUTPATIENT CONSULT NOTE Jaret Grajeda [id number] Requesting Provider: Wade Jones Thoracic Physician: Delfina Blue MD Chief Complaint: lung cancer Impression: Jaret Grajeda is a 62 yoM current heavy 45PYS with newly diagnosed mO4dR7U9 TRISTEN adenoCA. EBUS with negative level 7 [...] Date A (more content not included)... Normal [facility] SIX MINUTE WALKon 10-14-2022 [facility] CNOVon 09-27-2022 CNOV Office Visit (RADTSA ) JARET GRAJEDA ([id number]) 1960 M Date Time Provider Department 09/27/22 [...] PHYSICIAN: Jennifer Garber MD DIAGNOSIS: Stage IB, [id number], non-small cell lung cancer (adenocarcinoma) arising from the left upper lobe of the lung. PATIENT IDENTIFICATION: This patient was seen in the Department of Radiation Oncology at the [facility] with Don Mejia MD. He was accompanied today by his family. Final recommendations will be communicated back to the requesting physician by way of the shared medical record, or letter to requesting physician via US mail. HISTORY OF PRESENT ILLNESS: Mr. Grajeda is a 62-year-old gentleman from [place], [place] and heavy tobacco user who was [...] has 1 child, and lives in the [place], [place] area. 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 He reports an approximate 49-msek-sjso history of smoking and currently smokes a [...] Negative for malignanc (more content not included)... [facility] 09-27-2022 CNPN Telephone (NCCAP) JARET GRAJEDA ([id number]) 1960 M Date Time Provider Department 09/27/22 [facility] your visit today, we recorded the [...] 09/27/2022 12:42 PM Signed Thanks for tristen Ochoa Allergies As of Date: 09/27/2022 (No Known Allergies) Date Reviewed: 09/27/2022 Reviewed by: Lili Maritnez LPN - Fully Assessed Reason for Visit: FYI-No Action Needed [265] Prescriptions as of 09/27/2022 - metoprolol succinate ER (TOPROL XL) 50 mg 24 hr tablet Take 1 tablet by mouth every 12 hours. Problem List As Of Date: 09/27/2022 (None) Encounter Status:Closed by PURNIMA HAYES on 09/27/22 [facility]RAD[facility]SA[facility] JARET GRAJEDA ([id number]) 1960 M Date Time Provider Department 09/17/22 [...] supposed to follow-up with Dr. Candelaria in [place] for bronchoscopy/EBUS for pathologic staging of his [...] Of Date: 09/17/2022 (None) Encounter Status:Closed by LIIL MARTINEZ on 09/23/22 [facility] 09-16-2022 CNPN Telephone ([facility]) JARET GRAJEDA ([id number]) 1960 M Date Time Provider Department 09/16/22 DELFINA BLUE During your visit today, we recorded the following information about you: Soledad Dumont 09/16/2022 2:18 PM Signed Left date and time of apt for patient. Sent via DigitalMR - [id number]. Th, 10/14/2022 at [employer] [facility] at 12:30pm/1pm/1:15pm Th, 10/14/2022 at [facility] Consult w/ Dr. Blue at 3:40pm Allergies As of Date: 09/16/2022 (Not on File) Date Reviewed: Never Reviewed Reason for Visit: Appointment Confirmation [9523] Problem List As Of Date: 09/16/2022 (None) Encounter Status:Closed by SOLEDAD DUMONT on 09/16/22 [facility] 09-09-2022 CNPN Telephone (RADTSA) JARET GRAJEDA ([id number]) 1960 M Date Time Provider Department 09/09/22 [...] Status:Closed by LILI MARTINEZ on 09/13/22 Normal [facility] HPon 09-06-2022 HP - Attestation signed by Chinyere Candelaria MD at 09/06/2022 12:24 PM Re-explained the procedure to the patient along with the associated risk of pneumothorax, bleeding, hypoxia, and respiratory failure. Patient is agreeable and will proceed with the scheduled bronchoscopy and EBUS TBNA Chinyere Candelaria MD Interventional Pulmonary Medicine Pulmonary and Critical Care Medicine [facility] H&P reviewed. The patient was examined [...] deficits Skin: Warm, dry, no rashes Normal [facility] NON-WAISTBAND SETTER CYTOLOGY - CELLULAR EXAMon 09-06-2022 LAB AP CASE REPORT Normal [facility] Comment on above: Result Comment: Non- gynecologic Cytology Case: [id number] Authorizing Provider: Chinyere Candelaria MD Collected: 09/06/2022 1316 Ordering Location: [facility] Main Operating Room Received: 09/06/2022 135 Pathologist: Sari Coyne MD Specimens: A) - Lymph Node Station 2L, 2L B) - Lymph Node Station 7, station 7 Performed By: #### L AB13 #### [facility] (BEAKER) [address] [place] [address] LAB AP CLINICAL INFORMATION Order Diagnoses Normal [facility] Comment on above: Result Comment: C34. 92 - Primary adenocarcinoma of left lung (CMS/HCC) [ICD-10-CM] Performed By: #### L AB13 #### [facility] ([facility]) [address] [place] [address] LAB AP GROSS DESCRIPTION [facility] Comment on above: Result Comment: A) 3 air-dried slides, 3 alcohol-fixed slides, 30 mL CytoLyt with clear colorless fluid B) 2 air-dried slides, 2 alcohol-fixed slides, 30 mL CytoLyt with pink cloudy fluid Performed By: #### L AB13 #### [facility] ([facility]) [address] [place] [address] LAB AP INTRAOPERATIVE CONSULTATION [facility] Comment on above: Result Comment: A. L [...] submitted.* Performed By: #### L AB13 #### [facility] ([facility]) [address] [place] [address] LAB AP REPORT FINAL DIAGNOSIS NARRATIVE Normal [facility] Comment on above: Result Comment: A. L ymph node, 2L, fine needle aspiration: - Non-diagnostic due to scant cellularity - No cellular evidence of lymph node B. Lymph node, station 7, fine needle aspiration: - Negative for malignancy - Cellular evidence of lymph node Performed By: #### L AB13 #### [facility] ([facility]) [address] [place] [address] POCT GLUCOSE METER UNSOLICIT ED RESULTSon 09-06-2022 Glucose [Mass/Vol] 133 mg/dL High 70-105 [facility] Comment on above: Order Comment: Waive d Testing in the ED is performed under the ED CLIA certificate #[id number]. Result Comment: [email or web address] [id number] Performed By: #### L [id number] #### [facility] ([facility]) [address] [place] [address] [id number] 08-30-2022 [id number] Nothing to Eat or Drink, including Candy, [...] THE FOLLOWING ARE NOT AVAILABLE: An adult regional driver over the age of 18, that [...] lenses. Do not wear perfume, make-up, nail cuban, or lotions on the day of your [...] need to make any changes, please call [phone]. Notify your surgeon if you develop any illness such as a cold, cough, fever, sore throat or vomiting between now and your surgery. Thank you for entrusting us with your care. [facility] Surgical Services Team Normal [facility] Prep for Procedureon 023 Prep for Procedure [id number] Brigette Grajeda 1960 M Date Provider Department Center 08/30/2022 [facility] Family History Family history unknown: Yes Normal [facility] Annalisa 08-26-2022 [facility] Telephone (PARAMJIT) JARET GRAJEDA ([id number]) 1960 M Date Time Provider Department 08/26/22 DELFINA BLUE During your visit today, we recorded the following information about you: Sai Jeremiah 09/01/2022 10:10 AM Addendum LOCAL PATIENT Received Fax from Dr. Wade Jones Jaret Grajeda is being referred to Delfina Blue MD, PhD or Zbigniew Wilkinson M.D. by Wade Jones Sr, MD [address] [facility] [address] Patient diagnosis/Reason for consult: Lung Cancer Referral triage process explained: Yes Patient will receive a call from Thoracic NPM after triage review with surgeon to discuss any additional testing and/or consults that will be scheduled. Pt will then receive a call from our scheduling office for scheduling. Please call pt at [phone]. Patient was informed consultation could be at [place] or [facility]: No Patient Registration: Registration complete/updated: Yes Insurance card(s) scanned in [facility] with in the past year: Yes: Date: 08/26/22 Pt's [employer] is Pending. Ok to communicate to pt via [employer] not asked Medical Records: Records in [facility] (internal CC records): No Imaging in [facility] (internal CC records): No Care Everywhere [...] 26, 2022 Outside Hospital(s) requested imaging from: [facility]. Imaging will be received via Electronic Transfer Received: Yes Imaging uploaded: Yes Waiting on additional: No. Missing (list): n/a Additional providers added to Care Teams: Yes Additional Notes/Comments: n/a Enct routed to: Thoracic NPM for Triage Jeremiah Gibbs, administrative assistant data entry Socrates Pastor RN 09/09/2022 3:55 PM Signed Thoracic Surgery Consultation - review of records for appointment scheduling Received medical records from the office of Wade Jones Sr, MD [address] [place] [address] Patient is being referred to Unspecified/First Available [...] Cellular evidence of lymph node Procedures: 09/06 [facility] 08/13/22 ct guided bx Imaging . [...] Pastor RN Referring Provider: WADE JONES SR [[id number]] Allergies As of Date: 08/26/2022 (Not on File) Date Reviewed: Never Reviewed Reason for Visit: External Referrals/resources [909] Consult [173] Primary Visit Diagnosis:Malignant neoplasm of left lung, unspecified part of lung (HCC) [C34.92] Order(s):SPIROMETRY BASELINE ONLY [6992611] Order #: [id number]: 1 FUTURE LUNG DIFFUSION CAPACITY (DLCO) [7588905] Order #: [id number]: 1 FUTURE SIX MINUTE WALK [1697778] Order #: [id number]: 1 FUTURE Problem List As Of Date: 08/26/2022 (None) Encounter Status:Closed by SOCRATES PASTOR on 09/09/[address] [facility] C[facility]N Telephone (NCCAP) JARET GRAJEDA ([id number]) 1960 M Date Time Provider Department 08/25/22 DON MEJIA During your visit today, we recorded the following information about you: Purnima Hayes 08/25/2022 8:24 AM Signed Called patient X 2 to schedule appointments for here, left messages both days Allergies As of Date: 08/25/2022 (Not on File) Date Reviewed: Never Reviewed Reason for Visit: Appointment Confirmation [4833] Problem List As Of Date: 08/25/2022 (None) Encounter Status:Closed by PURNIMA HAYES on 08/25/22 [facility] HPon 08-19-2022 - Attestation signed by Chinyere [...] Age: 62 y.o. : 1960 Account No.: [id number] Referring physician: Chief complaint: Lung mass, newly [...] BICARB, CO2, CO2, PH, PH, PHART, PHVEN, AJB1EZD, TQC0JBZ, TDZ1NPY, PO2POC, PO2ART, PO2VEN, EVZ9JDF, PPS1OAZ Radiology: No Chest X-ray results found for [...] was initiated by the patient and conducted kjw-vcnm-ro-face with use of audio-only real time telephone communication between patient and provider for a virtual visit. Verbal consent to provide and bill for this service was obtained No signature was obtained due to the COVID-19 pandemic. 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 CT of chest done 07-27-22. Films in EPIC Normal [facility] Orders Onlyon 08-18-2022 Orders Only [id number] Brigette Grajeda 1960 M Date Provider Department Center 08/18/2022 [facility] ONC DCC Family History Family history unknown: Yes Normal [facility] CARDIAC ARIANE ADMITon 022 CK [Catalytic activity/Vol] 140 U/L Normal 39-308 [facility] Comment on above: Performed By: #### E TH, CMP, CMADM ####[facility] [id number] [place] [address]Dr. Dalton Uribe CK.MB [Mass/Vol] 2.29 ng/mL Normal <=3.60 [facility] Comment on above: Performed By: #### E TH, CMP, CMADM ####[facility] [id number] [place] [id number]. Dalton Uribe HSTROP 9.7 pg/mL Normal 4.0-76.1 [facility] Comment on above: Result Comment: CUT- OFF POINTS HAVE BEEN ESTABLISHED BASED ON THE FOURTH UNIVERSAL DEFINITIONS OF MYOCARDIAL INFARCTION. THE UPPER REFERENCE LIMIT (URL) OF TROPONIN, DEFINED THE 99TH PERCENTILE OF cTnI DISTRIBUTION IN A REFERENCE POPULATION, HAS BEEN CONFIRMED THE DECISION THRESHOLD FOR IA DIAGNOSIS. Performed By: #### E TH, CMP, CMADM ####[facility] [address] [id number]. Dalton Uribe ARASH 43 ng/mL Normal 16-96 [facility] Comment on above: Performed By: #### E TH, CMP, CMADM ####[facility] [address] [id number]. Dalton Uribe CBC AUTO DIFFon 06-19-2021 BASO # 0.0 103/ul Normal 0.0-0.1 [facility] Comment on above: Performed By: #### C BC #### [facility] [address] [place] [address] Dr. Dalton Uribe Basophils/100 WBC (Bld) 0.3 % Normal 0.2-2.0 [facility] Comment on above: Performed By: #### C BC #### [facility] [address] [place] [address] Dr. Dalton Uribe EO # 0.0 103/ul Normal 0.0-0.7 [facility] Comment on above: Performed By: #### C BC #### [facility] [address] [place] [address] Dr. Dalton Uribe Eosinophils/100 WBC (Bld) 0.1 % Critically low 0.9-7.0 [facility] Comment on above: Performed By: #### C BC #### [facility] [address] [place] [address] Dr. Dalton Uribe Erythrocyte distribution width (RBC) [Ratio] 12.5 % Normal 11.0-15.0 [facility] Comment on above: Performed By: #### C BC #### [facility] [address] [place] [address] Dr. Dalton Uribe Hematocrit (Bld) [Volume fraction] 39.5 % Critically low 42.0-54.0 [facility] Comment on above: Performed By: #### C BC #### [facility] [address] [place] [address] Dr. Dalton Uribe Hemoglobin (Bld) [Mass/Vol] 13.9 g/dL Critically low 14.0-18.0 [facility] Comment on above: Performed By: #### C BC #### [facility] [address] [place] [address] Dr. Dalton Uribe IG # 0.03 10e3/ul Normal 0.00-0.03 [facility] Comment on above: Performed By: #### C BC #### [facility] [address] [place] [address] Dr. Dalton Uribe IG % 0.3 % Normal 0.0-0.5 [facility] Comment on above: Performed By: #### C BC #### [facility] [address] [address] [address] Dalton Uribe LYMPH # 1.1 103/ul Critically low 1.2-3.8 [facility] Comment on above: Performed By: #### C BC #### [facility] [address] [address] [address] Dalton Uribe Lymphocytes/100 WBC (Bld) 10.1 % Critically low 20.5-60.0 [facility] Comment on above: Performed By: #### C BC #### [facility] [address] [place] [address] Dr. Dalton Uribe MANUAL DIFF REQ NO Normal [facility] Comment on above: Performed By: #### C BC #### [facility] [address] [place] [address] Dr. Dalton Uribe MCH (RBC) [Entitic mass] 33.3 pg Normal 25.9-34.0 [facility] Comment on above: Performed By: #### C BC #### [facility] [address] [place] [address] Dr. Dalton Uribe MCHC (RBC) [Mass/Vol] 35.2 g/dL Normal 29.9-35.2 [facility] Comment on above: Performed By: #### C BC #### [facility] [address] [place] [address] Dr. Dalton Uribe MCV (RBC) [Entitic vol] 94.7 fL Critically high 80.0-94.0 [facility] Comment on above: Performed By: #### C BC #### [facility] [address] [place] [address] Dr. Dalton Uribe MONO # 1.0 103/ul Critically high 0.3-0.8 [facility] Comment on above: Performed By: #### C BC #### [facility] [address] [place] [address] Dr. Dalton Uribe Monocytes/100 WBC (Bld) 9.1 % Normal 1.7-12.0 [facility] Comment on above: Performed By: #### C BC #### [facility] [address] [address] [address] Dalton Uribe NEUT # 8.7 103/ul Critically high 1.4-6.5 [facility] Comment on above: Performed By: #### C BC #### [facility] [address] [address] [address] Dalton Uribe Neutrophils/100 WBC (Bld) 80.1 % Critically high 43.0-75.0 [facility] Comment on above: Performed By: #### C BC #### [facility] [address] [place] [address] Dr. Dalton Uribe Platelet mean volume (Bld) [Entitic vol] 10.0 fL Normal 9.5-13.5 [facility] Comment on above: Performed By: #### C BC #### [facility] [address] [place] [address] Dr. Dalton Uribe PLT 133 103/ul Critically low 150-450 [facility] Comment on above: Result Comment: few giant plts and large plts seen Performed By: #### C BC #### [facility] [address] [place] [address] Dr. Dalton Uribe RBC 4.17 106/ul Critically low 4.70-6.10 [facility] Comment on above: Performed By: #### C BC #### [facility] [address] [place] [address] Dr. Dalton Uribe WBC 10.9 103/ul Normal 4.0-11.0 [facility] Comment on above: Performed By: #### C BC #### [facility] [address] [place] [address] HEAD WO CONon [...] HUBER STACY Date: 2021-06-19 12:16 Normal [facility] ETHANOL (BLD ALC)on 06-20-19 22 ALC NOTE NOTE: 80 mg/dl is th e legal limit for a blood alcohol level Normal [facility] Comment on above: Performed By: #### E THDEREK CMADM ####[facility] [address] [address]Dr. Dalton Uribe Ethanol [Mass/Vol] mg/dL Normal [facility] Comment on above: Performed By: #### E THDEREK CMADM ####[facility] [address] [address]Dr. Dalton Uribe PROF 14(COMP METB)on 022 Albumin [Mass/Vol] 3.8 g/dL Normal 3.4-5.0 [facility] Comment on above: Performed By: #### E THDEREK, ORION ####[facility] [address] [address]Dr. Dalton Uribe Albumin/Globulin [Mass ratio] 1.0 {ratio} Normal [facility] Comment on above: Performed By: #### E TH, DEREK, CMADM ####[facility] [address] [address]Dr. Dalton Uribe ALP [Catalytic activity/Vol] 88 U/L Normal 46-116 [facility] Comment on above: Performed By: #### E TH, DEREK, CARENDM ####[facility] [address] [address]Dr. Dalton Uribe ALT [Catalytic activity/Vol] 64 U/L Critically high 16-63 [facility] Comment on above: Performed By: #### E TH, DEREK, CMADM ####[facility] [address] [address]Dr. Dalton Uribe Anion gap [Moles/Vol] 16.0 mmol/L Normal [facility] Comment on above: Performed By: #### E , CMP, CMADM ####[facility] [address] [address]Dr. Dalton Uribe AST [Catalytic activity/Vol] 65 U/L Critically high 15-37 [facility] Comment on above: Performed By: #### E , CMP, CMADM ####[facility] [address] [address]Dr. Dalton Uribe Bilirubin [Mass/Vol] 1.3 mg/dL Critically high 0.2-1.0 [facility] Comment on above: Performed By: #### E , CMP, CMADM ####[facility] [address] [place], [place] [address]Dr. Dalton Uribe Calcium [Mass/Vol] 9.1 mg/dL Normal 8.5-10.1 [facility] Comment on above: Performed By: #### E , CMP, CMADM ####[facility] [address] [place], [place] [address]Dr. Emmamarbella Uribe Chloride [Moles/Vol] 92 mmol/L Critically low 98-107 [facility] Comment on above: Performed By: #### E , CMP, CMADM ####[facility] [address] [place], [place] [address]Dr. Dalton Uribe CO2 [Moles/Vol] 25.4 mmol/L Normal 21.0-32.0 [facility] Comment on above: Performed By: #### E , CMP, CMADM ####[facility] [address] [place], [place] [address]Dr. Dalton Uribe Creatinine [Mass/Vol] 0.85 mg/dL Normal 0.70-1.30 [facility] Comment on above: Performed By: #### E , CMP, CMADM ####[facility] [address] [place], [place] [address]Dr. Dalton Uribe EGFR-AF UGANDAN >60 Normal >=60 [facility] Comment on above: Performed By: #### E , CMP, CMADM ####[facility] [address] [id number]. Dalton Uribe EGFR-NON AF UGANDAN >60 Normal >=60 [facility] Comment on above: Performed By: #### E , CMP, CMADM ####[facility] [address] [id number]. Dalton Uribe Globulin (S) [Mass/Vol] 3.7 g/dL Normal [facility] Comment on above: Performed By: #### E , CMP, CMADM ####[facility] [address] [address]Dr. Dalton Uribe Glucose [Mass/Vol] 106 mg/dL Normal 74-106 [facility] Comment on above: Performed By: #### E , CMP, CMADM ####[facility] [address] [address]Dr. Dalton Uribe Potassium [Moles/Vol] 3.4 mmol/L Critically low 3.5-5.1 [facility] Comment on above: Performed By: #### E , CMP, CMADM ####[facility] [address] [place], [place] [address]Dr. Dalton Uribe Protein [Mass/Vol] 7.5 g/dL Normal 6.4-8.2 [facility] Comment on above: Performed By: #### E , CMP, CMADM ####[facility] [address] [address]Dr. Dalton Uribe Sodium [Moles/Vol] 130 mmol/L Critically low 136-145 [facility] Comment on above: Performed By: #### E , CMP, CMADM ####[facility] [address] [place], [place] [address]Dr. Dalton Uribe Urea nitrogen [Mass/Vol] 10.0 mg/dL Normal 7.0-18.0 [facility] Comment on above: Performed By: #### E , CMP, CMADM ####[facility] [address] [id number]. Dalton Uribe Urea nitrogen/Creatinine [Mass ratio] 11.8 mg/mg Normal [facility] Comment on above: Performed By: #### E TH, CMP, CMADM ####[facility] [address] [id number]. Dalotn Uribe XR CHEST 1 Von 06-19-2021 XR [...] ANNE GUADALUPE Date: 2021-06-19 12:27 Normal [facility] CBC AUTO DIFFon 06-18-2021 BASO # 0.0 103/ul Normal 0.0-0.1 [facility] Comment on above: Performed By: #### C BC ####[facility] [address] [address]Dr. Dalton Uribe Basophils/100 WBC (Bld) 0.3 % Normal 0.2-2.0 [facility] Comment on above: Performed By: #### C BC ####[facility] [address] [address]Dr. Dalton Uribe EO # 0.0 103/ul Normal 0.0-0.7 [facility] Comment on above: Performed By: #### C BC ####[facility] [address] [address]Dr. Dalton Uribe Eosinophils/100 WBC (Bld) 0.1 % Critically low 0.9-7.0 [facility] Comment on above: Performed By: #### C BC ####[facility] [address] [address]Dr. Dalton Uribe Erythrocyte distribution width (RBC) [Ratio] 12.7 % Normal 11.0-15.0 [facility] Comment on above: Performed By: #### C BC ####[facility] [address] [id number]. Dalton Uribe Hematocrit (Bld) [Volume fraction] 42.5 % Normal 42.0-54.0 [facility] Comment on above: Performed By: #### C BC ####[facility] [address] [address]Dr. Dalton Uribe Hemoglobin (Bld) [Mass/Vol] 14.6 g/dL Normal 14.0-18.0 [facility] Comment on above: Performed By: #### C BC ####[facility] [address] [place], [place] [address]Dr. Dalton Uribe IG # 0.04 10e3/ul Critically high 0.00-0.03 [facility] Comment on above: Performed By: #### C BC ####[facility] [address] [place], [place] [address]Dr. Dalton Rony IG % 0.4 % Normal 0.0-0.5 [facility] Comment on above: Performed By: #### C BC ####[facility] [address] [address]Dr. Dalton Rony LYMPH # 1.1 103/ul Critically low 1.2-3.8 [facility] Comment on above: Performed By: #### C BC ####[facility] [address] [id number]. Dalton Rony Lymphocytes/100 WBC (Bld) 10.6 % Critically low 20.5-60.0 [facility] Comment on above: Performed By: #### C BC ####[facility] [address] [address]Dr. Emmamarbella Uribe MANUAL DIFF REQ NO Normal [facility] Comment on above: Performed By: #### C BC ####[facility] [address] [place], [place] [address]Dr. Dalton Uribe MCH (RBC) [Entitic mass] 32.7 pg Normal 25.9-34.0 [facility] Comment on above: Performed By: #### C BC ####[facility] [address] [id number]. Dalton Uribe MCHC (RBC) [Mass/Vol] 34.4 g/dL Normal 29.9-35.2 [facility] Comment on above: Performed By: #### C BC ####[facility] [address] [address]Dr. Dalton Uribe MCV (RBC) [Entitic vol] 95.3 fL Critically high 80.0-94.0 [facility] Comment on above: Performed By: #### C BC ####[facility] [address] [place], [place] [address]Dr. Dalton Uribe MONO # 1.0 103/ul Critically high 0.3-0.8 [facility] Comment on above: Performed By: #### C BC ####[facility] [address] [place], [place] [address]Dr. Dalton Uribe Monocytes/100 WBC (Bld) 9.9 % Normal 1.7-12.0 [facility] Comment on above: Performed By: #### C BC ####[facility] [address] [id number]. Dalton Uribe NEUT # 8.1 103/ul Critically high 1.4-6.5 [facility] Comment on above: Performed By: #### C BC ####[facility] [address] [place], [place] [address]Dr. Dalton Uribe Neutrophils/100 WBC (Bld) 78.7 % Critically high 43.0-75.0 [facility] Comment on above: Performed By: #### C BC ####[facility] [address] [place], [place] [address]Dr. Dalton Uribe Platelet mean volume (Bld) [Entitic vol] 9.6 fL Normal 9.5-13.5 [facility] Comment on above: Performed By: #### C BC ####[facility] [address] [place], [place] [address]Tw. Dalton Uribe PLT 152 103/ul Normal 150-450 [facility] Comment on above: Performed By: #### C BC ####[facility] [address] [place], [place] [address]Fz. Dalton Uribe RBC 4.46 106/ul Critically low 4.70-6.10 [facility] Comment on above: Performed By: #### C BC ####[facility] [address] [place], [place] [address]Og. Dalton Uribe WBC 10.2 103/ul Normal 4.0-11.0 [facility] Comment on above: Performed By: #### C BC ####[facility] [address] [place], [place] [address]KtKeshawn Uribe PROF 14(COMP METB)on 022 Albumin [Mass/Vol] 4.0 g/dL Normal 3.4-5.0 [facility] Comment on above: Performed By: #### T SH, T4, CMP #### [facility] [address] [address] [address] Dalton Uribe Albumin/Globulin [Mass ratio] 1.1 {ratio} Normal [facility] Comment on above: Performed By: #### T SH, T4, CMP #### [facility] [address] [address] [address] Dalton Uribe ALP [Catalytic activity/Vol] 88 U/L Normal 46-116 [facility] Comment on above: Performed By: #### T SH, T4, CMP #### [facility] [address] [address] [address] Dalton Uribe ALT [Catalytic activity/Vol] 74 U/L Critically high 16-63 [facility] Comment on above: Performed By: #### T SH, T4, CMP #### [facility] [address] [address] [address] Dalton Uribe Anion gap [Moles/Vol] 17.1 mmol/L Normal [facility] Comment on above: Performed By: #### T SH, T4, CMP #### [facility] [address] [address] [address] Dalton Uribe AST [Catalytic activity/Vol] 73 U/L Critically high 15-37 [facility] Comment on above: Performed By: #### T SH, T4, CMP #### [facility] [address] [place] [address] Dr. Dalton Uribe Bilirubin [Mass/Vol] 1.8 mg/dL Critically high 0.2-1.0 [facility] Comment on above: Performed By: #### T SH, T4, CMP #### [facility] [address] [place] [address] Dr. Dalton Uribe Calcium [Mass/Vol] 9.1 mg/dL Normal 8.5-10.1 [facility] Comment on above: Performed By: #### T SH, T4, CMP #### [facility] [address] [place] [address] Dr. Dalton Uribe Chloride [Moles/Vol] 95 mmol/L Critically low 98-107 [facility] Comment on above: Performed By: #### T SH, T4, CMP #### [facility] [address] [place] [address] Dr. Dalton Uribe CO2 [Moles/Vol] 26.5 mmol/L Normal 21.0-32.0 [facility] Comment on above: Performed By: #### T SH, T4, CMP #### [facility] [address] [place] [address] Dr. Dalton Uribe Creatinine [Mass/Vol] 0.88 mg/dL Normal 0.70-1.30 [facility] Comment on above: Performed By: #### T SH, T4, CMP #### [facility] [address] [place] [address] Dr. Dalton Uribe EGFR-AF UGANDAN >60 Normal >=60 [facility] Comment on above: Performed By: #### T SH, T4, CMP #### [facility] [address] [place] [address] Dr. Dalton Uribe EGFR-NON AF UGANDAN >60 Normal >=60 [facility] Comment on above: Performed By: #### T SH, T4, CMP #### [facility] [address] [address] [address] Dalton Uribe Globulin (S) [Mass/Vol] 3.8 g/dL Normal [facility] Comment on above: Performed By: #### T SH, T4, CMP #### [facility] [address] [address] [address] Dalton Uribe Glucose [Mass/Vol] 115 mg/dL Critically high 74-106 [facility] Comment on above: Performed By: #### T SH, T4, CMP #### [facility] [address] [place] [address] Dr. Dalton Uribe Potassium [Moles/Vol] 3.6 mmol/L Normal 3.5-5.1 [facility] Comment on above: Performed By: #### T SH, T4, CMP #### [facility] [address] [place] [address] Dr. Dalton Uribe Protein [Mass/Vol] 7.8 g/dL Normal 6.4-8.2 [facility] Comment on above: Performed By: #### T SH, T4, CMP #### [facility] [address] [place] [address] Dr. Dalton Uribe Sodium [Moles/Vol] 135 mmol/L Critically low 136-145 [facility] Comment on above: Performed By: #### T SH, T4, CMP #### [facility] [address] [place] [address] Dr. Dalton Uribe Urea nitrogen [Mass/Vol] 8.0 mg/dL Normal 7.0-18.0 [facility] Comment on above: Performed By: #### T SH, T4, CMP #### [facility] [address] [place] [address] Dr. Dalton Uribe Urea nitrogen/Creatinine [Mass ratio] 9.1 mg/mg Normal [facility] Comment on above: Performed By: #### T SH, T4, CMP #### [facility] [address] [place] [address] Dr. Dalton Uribe T4on 06-18-2021 T4 [Mass/Vol] 8.10 ug/dL Normal 4.50-12.10 [facility] Comment on above: Performed By: #### T SH, T4, CMP #### [facility] [address] [place] [address] Dalton Uribe TSHon 06-18-2021 TSH 1.856 uIU/mL Normal 0.358-3.740 [facility] Comment on above: Performed By: #### T SH, T4, CMP #### [facility] [address] [place], [place] [address] Dr. Dalton Uribe TSH RANGE SEE BELOW Normal [facility] Comment on above: Result Comment: <0.3 4 UIU/ml HYPERTHYROID 0.34-5.60 UIU/ml EUTHYROID >5.60 UIU/ml HYPOTHYROID Performed By: #### T SH, T4, CMP #### [facility] [address] [place] [address] [address] Dalton Uribe Vital Signs Date Time Vital Sign Value Performing Clinician Faci lity 04-08-2023 10:28-0500 Body temperature 97.2 [degF] Don Mejia MD Work Phone: [facility] 04-08-2023 10:28-0500 Body weight 71.8 kg Don Mejia MD Work Phone: [facility] 04-08-2023 10:28-0500 Diastolic blood pressure 93 mm[Hg] Don Mejia MD Work Phone: [facility] 04-08-2023 10:28-0500 Heart rate 69 /min Don Mejia MD Work Phone: [facility] 04-08-2023 10:28-0500 Respiratory rate 18 /min Don Mejia MD Work Phone: [facility] 04-08-2023 10:28-0500 SaO2% (BldA) [Mass fraction] 99 % Don Mejia MD Work Phone: [facility] 04-08-2023 10:28-0500 Systolic blood pressure 164 mm[Hg] Don Mejia MD Work Phone: [facility] 10-14-2022 12:00-0400 Body height 173 cm [employer] Work Phone: [facility] 10-14-2022 12:00-0400 Body weight 73.48 kg [employer] Work Phone: [facility] 09-27-2022 09:00-0400 Body height 175.3 cm Don Mejia MD Work Phone: [facility] 09-27-2022 09:00-0400 Body temperature 97.39 [degF] Don Mejia MD Work Phone: [facility] 09-27-2022 09:00-0400 Body weight 74.21 kg Don Mejia MD Work Phone: [facility] 09-27-2022 09:00-0400 Diastolic blood pressure 118 mm[Hg] Don Mejia MD Work Phone: [facility] 09-27-2022 09:00-0400 Heart rate 78 /min Don Mejia MD Work Phone: [facility] 09-27-2022 09:00-0400 Respiratory rate 18 /min Don Mejia MD Work Phone: [facility] 09-27-2022 09:00-0400 SaO2% (BldA) [Mass fraction] 98 % Don Mejia MD Work Phone: [facility] 09-27-2022 09:00-0400 Systolic blood pressure 194 mm[Hg] Don Mejia MD Work Phone: [facility] Encounters Encounter Date Encounter Type Care Provider Facility Start: 06-29-2023 End: 06-29-2023 ambulatory WADE JONES SR Facility:[facility] Start: 06-16-2023 Telephone encounter Don Mejia MD Work Phone: [facility] Comment on above: Future Appointment Start: 04-08-2023 End: 04-08-2023 ambulatory DON MEJIA Facility:[facility] Start: 04-08-2023 End: 04-08-2023 Patient encounter procedure Don Mejia MD Work Phone: [facility] Comment on above: Malignant neoplasm o f upper lobe of left lung (HCC) (Primary Dx) Start: 03-31-2023 End: 03-31-2023 ambulatory WADE P HOUSE SR Facility:[facility] Start: 03-24-2023 Telephone encounter Don Mejia MD Work Phone: [facility]cology Comment on above: Patient Update (Post Radiation Treatment Nurse Call ) Start: 03-11-2023 Telephone encounter Don Mejia MD Work Phone: [facility]iation Oncology Comment on above: Orders Start: 03-07-2023 End: 03-07-2023 ambulatory WADE P HOUSE SR Facility:[facility] Start: 03-07-2023 Patient encounter procedure Don Mejia MD Work Phone: [facility] Start: 03-07-2023 Radiation Oncology Note Don carter MD Work Phone: [facility] Comment on above: Completion Note Start: 03-04-2023 End: 03-04-2023 ambulatory DONTANNER MEJIA Facility:[facility] Start: 03-02-2023 End: 03-02-2023 ambulatory DON ROBERTO Facility:[facility] Start: 02-28-2023 End: 02-28-2023 ambulatory DON ROBERTO Facility:[facility] Start: 02-11-2023 Patient encounter procedure Don Mejia MD Work Phone: [facility] Start: 02-11-2023 Radiation Oncology Note Don carter MD Work Phone: Radiation Oncology Comment on above: Treatment Planning Start: 02-11-2023 End: 02-11-2023 ambulatory DON MEJIA Facility:[facility] Start: 01-24-2023 End: 01-24-2023 ambulatory WADE P HOUSE SR Facility:[facility] Start: 01-13-2023 Telephone encounter Delfina koehler MD, PhD Work Phone: Thoracic [facility] Comment on above: Received Outside Med ical Records Start: 01-05-2023 Telephone encounter Don Mejia MD Work Phone: Cancer [facility] Comment on above: Appointment Confirma tion Start: 12-23-2022 End: 12-23-2022 ambulatory Delfina Blue MD, PhD Work Phone: Thoracic Clinic Comment on above: Personal history of malignant neoplasm of bronchus and lung (Primary Dx) Start: 12-23-2022 End: 12-23-2022 Telemedicine consultation with patient Delfina Blue MD, PhD Work Phone: [facility] Start: 12-09-2022 End: 12-09-2022 ambulatory DELFINA BLUE Facility:[facility] Start: 12-09-2022 Encounter for other preprocedural examination DELFINA BLUE [facility] Start: 10-18-2022 Telephone encounter Don Mejia MD Work Phone: Radiation Oncology Comment on above: Future Appointment Start: 10-14-2022 End: 10-14-2022 ambulatory [facility] Pulmonology Comment on above: Spirometry Start: 10-14-2022 End: 10-14-2022 Patient encounter procedure Pulm [facility] [employer] Work Phone: [facility] Start: 09-27-2022 End: 09-27-2022 ambulatory Lili Martinez [employer]PECT[employer] Radiation Oncology Comment on above: Patient Education Start: 09-27-2022 Telephone encounter Don Mejia MD Work Phone: Cancer [facility] Comment on above: FYI-No Action Needed Start: [...] above: Appointment Start: 09-06-2022 End: 09-07-2022 ambulatory [facility] Start: 09-03-2022 End: 09-04-2022 ambulatory [facility] Start: 08-26-2022 Telephone encounter Delfina koehler MD, PhD Work Phone: Thoracic Clinic Comment on above: External Referrals/r esources; Consult Start: 08-19-[address] [facility] Start: 08-18-2022 End: 08-19-2022 ambulatory [facility] Start: 08-17-2022 End: 08-18-2022 ambulatory [facility] Start: 05-26-2022 End: 05-27-[address] ANNE GUADALUPE Facility:[facility] Start: 04-13-2022 End: 04-14-2022 ambulatory LAISHA HOUSE Facility:[facility] Start: 03-30-2022 End: 03-31-2022 ambulatory LAISHA HOUSE Facility:[facility] Start: 03-23-2022 End: 03-23-2022 ambulatory NICHOLE HERNANDES . Facility:[facility] Start: 01-19-[address] WADE JONES Facili ty:[facility] Start: 06-19-2021 End: 06-19-2021 ambulatory SEN PINEDA . Facility:[facility] Start: 06-18-2021 End: 06-19-[address] WAED JONES Facility:[facility] Procedures Date Procedure Procedure Detail Performing Clinician Start: 10-14-2022 End: 10-14-2022 Co diffusing capacity Delfina Blue MD, PhD Work Phone: Plan of Treatment Date Care Activity Detail Author Start: 10-09-2023 Influenza vaccination Influenz a Vaccine (Season Ended) [facility] Start: 07-11-2023 End: 07-11-2023 Patient encounter procedure 07/11/2023 2:00 PM EDT Office Visit Radiation Oncology [address] [place] [address] Don Mejia MD [address] [place] [address] Radiation Oncology Comment on above: Followup after ct Start: 07-05-2023 End: 07-05-2023 Patient encounter procedure 07/05/2023 9:15 AM EDT Appointment Radiology Pet CT [address] [place] [address] [address] Comment on above: CT chest Start: 06-09-2023 End: 09-08-2023 CREATININE BLD CREATININE BLD Lab Routine Neoplasm of lung Expected: 06/09/2023, Expires: 09/08/2023 [facility] Work Phone: Comment on above: Expected: 06/09/2023 , Expires: 09/08/2023 Start: 06-09-2023 End: 04-09-2024 CT CHEST W IVCON CT CHEST W IVCON Radiology Routine Neoplasm of lung Expected: 06/09/2023, Expires: 04/09/2024 [facility] Work Phone: Comment on above: Expected: 06/09/2023 , Expires: 04/09/2024 Start: 02-07-2023 Behavioral Health Screening Behavioral Health Screening [facility] Start: 02-07-2023 Depression Assessment Depression Ass essment [facility] Start: 10-08-2022 Covid-19 Vaccine ( season) Covid-19 Vaccine ( season) [facility] Start: 10-08-2022 Influenza vaccination [facility] Start: 02-07-2022 DEPRESSION ASSESSMENT DEPRESSION ASS ESSMENT [facility] Start: 12-22-2020 COVID-19 VACCINE (3 - Pfizer series) COVID-19 VACCINE (3 - Pfizer series) [facility] Start: 2018 RSV Vaccine (1 - 1-d ose 60+ series) RSV Vaccine (1 - 1-dose 60+ series) [facility] Start: 2013 PROSTATE CANCER SCREENING DISCUSSION PROSTATE CANCER SCREENING DISCUSSION [facility] Start: 2013 Prostate specific antigen measurement Prostate Cancer Screening Discussion [facility] Start: 2008 SHINGRIX VACCINE (1 of 2) SHINGRIX VACCINE (1 of 2) [facility] Start: 07-22-2003 COLOGUARD (FIT-DNA) COLOGUARD (FIT-D NA) [facility] Start: 07-22-[address] [facility] Start: 07-22-2003 COLORECTAL CANCER SCREENING COLORECTAL CANCER SCREENING [facility] Start: 07-22-[address] COLONOGRAPHY [facility] Start: 07-22-2003 DIABETES SCREEN DIABETES SCREEN [facility] Start: 07-22-2003 Diabetes Screening Diabetes Screenin g [facility] Start: 07-22-2003 FECAL OCCULT BLOOD FECAL OCCULT BLOO D [facility] Start: 07-22-2003 Screening for malign ant neoplasm of colon [facility] Start: 07-22-2003 SIGMOIDOSCOPY SIGMOIDOSCOPY [facility] Start: 1993 Lipid 1996 panel - S carol or Plasma Lipid Screening [facility] Start: 1993 Lipid panel Lipid Screening [facility] Start: 1993 LIPID SCREEN LIPID SCREEN [facility] Start: [address] [facility] Start: 1976 HEPATITIS C SCREENING HEPATITIS C [facility] Start: 1976 Hepatitis C screening Hepatitis C [facility] Start: 1976 HIV SCREENING HIV SCREENING [facility] Start: 1976 HIV screening HIV Screening [facility] Start: 1964 PNEUMOCOCCAL (1 - PCV) PNEUMOCOCCAL (1 - PCV) [facility] Start: [address] [facility] Start: 01-20-1959 COVID-19 VACCINE (#1) COVID-19 VACCI NE (#1) [facility] End: 10-09-2023 LUNG DIFFUSION CAPACITY (DLCO) LUNG DIFFUSION CAPACITY (DLCO) PFT Routine Malignant neoplasm of left lung, unspecified part of lung (HCC) 1 Occurrences starting 09/09/2022 until 10/09/2023 [facility] Work Phone: Comment on above: 1 Occurrences starti ng 09/09/2022 until 10/09/2023 LUNG DIFFUSION CAPAC ITY (DLCO) LUNG DIFFUSION CAPACITY (DLCO) PFT Routine Malignant neoplasm of left lung, unspecified part of lung (HCC) 10/14/2022 12:37 PM EDT [facility] Work Phone: End: 10-09-2023 SIX MINUTE WALK SIX MINUTE WALK PFT Routine Malignant neoplasm of left lung, unspecified part of lung (HCC) 1 Occurrences starting 09/09/2022 until 10/09/2023 [facility] Work Phone: Comment on above: 1 Occurrences starti ng 09/09/2022 until 10/09/2023 End: 10-09-2023 SPIROMETRY BASELINE ONLY SPIROMETRY BASELINE ONLY PFT Routine Malignant neoplasm of left lung, unspecified part of lung (HCC) 1 Occurrences starting 09/09/2022 until 10/09/2023 [facility] Work Phone: Comment on above: 1 Occurrences starti ng 09/09/2022 until 10/09/2023 SPIROMETRY BASELINE ONLY SPIROME TRY BASELINE ONLY PFT Routine Malignant neoplasm of left lung, unspecified part of lung (HCC) 10/14/2022 12:37 PM EDT [facility] Work Phone: [facility] Payers Date Payer Category Payer Unknown [employer] P[employer] [id number] 2022-Present [phone] [address] [place] [address] PPO [id number] 1959 Self-pay 1959 Unknown [id number] 1958 Unknown [id number] 1958 Unknown [id number] 1958 Unknown [id number] 1958 Unknown [id number] 1958 Unknown [id number] 1958 Unknown [id number] 1958 Unknown [id number] Social History Date Type Detail Facility Tobacco smoking stat [facility] Tobacco smoking consumption unknown [facility] Start: 1960 Sex Assigned At Not on file [facility] Start: 09-09-2022 End: 10-14-2022 Gender identity Not on file [facility] Start: 09-09-2022 End: 10-14-2022 History of [address] [facility] National Score (1-10 0), lower number is lower risk 57 [facility] Start: 09-27-2022 Tobacco smoking stat [facility] Smokes tobacco daily [facility] History of tobacco use Cigarette Smoker [facility] Start: 09-27-2022 Tobacco use and exposure Smokeless t obacco non-user [facility] Start: 09-27-2022 End: 04-08-2023 Alcohol intake Current drinker of alcohol (finding) [facility] Start: 09-27-2022 Alcohol Comment socially [facility] Clinical Notes 03-23-2022 to 06-20-2023 Telephone Encounter - Purnima Hayes - 06/20/2023 8:27 AM EDTTelephone Encounter - Purnima Hayes - 06/20/2023 8:27 AM EDTTelephone Encounter - Cathy Jovel RN - 06/16/2023 11:47 AM EDT Note Date & Type Note Facility 06-20-2023 Telephone encounter Note Patient is r/s for both appts [facility] 06-20-2023 Miscellaneous Notes Patient is r/s for both appts I also called patient no answer to check on appointments. Call placed to patient due to him cancelling CT that was to be done prior to follow up for Tuesday. CAlled to check status and LM requesting pt CB to reschedule all appts. Cathy Jovel RN documented in this encounter [facility] 06-17-2023 Telephone encounter Note I also called patient no answer to check on appointments. [facility] 06-16-2023 Telephone encounter Note Call placed to patient due to him cancelling CT that was to be done prior to follow up for Tuesday. CAlled to check status and LM requesting pt CB to reschedule all appts. Cathy Jovel RN [facility] 04-09-2023 Note HNO ID: [id number] Author: DON MEJIA MD Service: ? Author Type: Physician Type: Progress Notes Filed: 04/19/2023 06:01 Note Text: Radiation Oncology - Follow Up Note PATIENT NAME: Jaret Grajeda PATIENT DIAGNOSIS/PATIENT IDENTIFICATION: Mr. Grajeda is a 62-year-old gentleman diagnosed with a Stage IB, [id number], non-small cell lung cancer (adenocarcinoma) arising from [...] result of the inadequacies/shortcomings of said technology/software. [facility] 04-08-2023 History of Present illness Narrative Radiation Oncology - Follow Up Note PATIENT NAME: Jaret Grajeda PATIENT Signed by: Don Mejia MD This document has been created with the use of voice recognition technology. It may contain inaccuracies, misspellings, inaccurate syntax or inappropriate word context that are a result of the inadequacies/shortcomings of said technology/software. documented in this encounter [facility] 03-24-2023 Miscellaneous Notes Call placed to pt to check status. He states he is doing very well. His breathing has maintained it's baseline and he denies any new issues. His energy levels are at his normal. Pt is scheduled for follow up on 04/[address]/FU in June. Cathy Jovel RN documented in this encounter [facility] 03-14-2023 Miscellaneous Notes Patient is scheduled CT chest due in 3 months is pending your approval. Lili Martinez RN documented in this encounter [facility] 03-07-2023 Note HNO ID: [id number] Author: DON MEJIA MD Service: ? Author Type: Physician Type: Progress Notes Filed: 03/17/2023 04:27 Note Text: [facility] Radiation Oncology Department RADIATION ONCOLOGY - SBRT COMPLETION NOTE PATIENT: JADA GRAJEDAOB: 1960 DATES OF TREATMENT: 02/28/23-03/07/23 DIAGNOSIS: Mr. Grajeda is a 62-year-old gentleman diagnosed with a Stage IB, [id number], non-small cell lung cancer (adenocarcinoma) arising from [...] cc: Jennifer Garber MD [address] [facility] [address] [address] [facility], [address] [facility] [address] [address] [facility] 03-07-2023 History of Present illness Narrative [facility] Radiation Oncology Department RADIATION ONCOLOGY - SBRT COMPLETION NOTE PATIENT: JADA GRAJEDAOB: 1960 DATES OF TREATMENT: 02/28/23-03/07/23 DIAGNOSIS: Mr. Grajeda is a 62-year-old gentleman diagnosed with a Stage IB, qV6V9T7, non-small cell lung cancer (adenocarcinoma) arising from [...] Signed cc: Jennifer Garber MD [address] [facility] [place] [address] [address] [facility], [address] [facility] [address] Via documented in this encounter [facility] 02-28-2023 Note HNO ID: [id number] Author: DON MEJIA MD Service: ? Author Type: Physician Type: Progress Notes Filed: 03/03/2023 06:54 Note Text: Radiation Oncology - On Treatment Review (OTR) Note PATIENT NAME: Jaret Grajeda PATIENT DIAGNOSIS: Mr. Grajeda is a 62-year-old gentleman diagnosed with a Stage IB, qB2W6T2, non-small cell lung cancer (adenocarcinoma) arising from [...] the course of treatment. Don Mejia MD [facility] 02-12-2023 Note HNO ID: [id number] Author: DON MEJIA MD Service: ? Author Type: Physician Type: Progress Notes Filed: 02/22/2023 04:26 Note Text: Radiation Oncology - Follow Up Note PATIENT NAME: Jaret Grajeda PATIENT DIAGNOSIS/PATIENT IDENTIFICATION: Mr. Grajeda is a 62-year-old gentleman diagnosed with Stage IB, rS2W1D6, non-small cell lung cancer (adenocarcinoma) arising from [...] cancer. He met with Dr. Blue at [facility] and was recommended a cardiac workup [...] 62-year-old gentleman diagnosed with a Stage IB, sD8R4G3, non-small cell lung cancer (adenocarcinoma) arising from [...] a course of (more content not included)... [facility] 02-11-2023 Note HNO ID: [id number] Author: DON MEJIA MD Service: ? Author Type: Physician Type: Progress Notes Filed: 02/27/2023 15:22 Note Text: JARET GRAJEDA [id number] 02/11/2023 [facility] Department of Radiation Oncology Treatment Planning Note [...] Electronically Signed Don Mejia M.D. 43:22 PM [facility] 02-11-2023 Note HNO ID: [id number] Author: DON MEJIA MD Service: ? Author Type: Physician Type: Progress Notes Filed: 02/14/2023 22:39 Note Text: JARET GRAJEDA [id number] 02/11/2023 [facility] Department of Radiation Oncology SBRT CT Simulation Diagnosis/Disease:Malignant neoplasm of upper lobe, left bronchus or lungC34.12 Therapist: Mouna Yeboah Consent: Yes Area: LUNG Procedure: A time-out was conducted and recorded by the therapist. Patient simulated at [facility] for SBRT. Compression device in place, and a 4D CT was conducted. Position: SUPINE Thigh Positioner: 0 With Riser 1 Without Riser 1 Abdominal Cuff: SecureVac Cushion Index to Base @ 58 0 T-Vac Cushion Rt. Side Adjust 221 Tri-Vac Cushion Lt. side Adjust 160 [id number] Pump 160 [id number] Wingboard: Head Pad (B or F) :F [...] be initiated after treatment planning. Electronically Signed DON MEJIA M.D. 0:39 PM [facility] 02-11-2023 History of Present illness Narrative JARET GRAJEDA [id number] 02/11/2023 [facility] Department of Radiation Oncology Treatment Planning Note [...] M.D. 43:22 PM documented in this encounter [facility] 01-24-2023 Note HNO ID: [id number] Author: Socrates Mills, RT(R) Service: ? Author [...] RT Sharita(R) January 24, 2023 2:35 PM [facility] 01-24-2023 Note HNO ID: [id number] Author: Socrates Mills RT(R) Service: ? Author Type: Technologist Type: [...] 1035 PATIENT DISCHARGED TO: Ambulatory patient, left [place] department area. A Diagnostic radioactive procedure has taken place, with no further precautions necessary other than routine body substance precautions. More information regarding radiation safety can be found using this link: [email or web address]%20Nuclear%20Med [email or web address] SIGNATURE: RT Sharita(R) PATIENT NAME: Jaret Grajeda DATE: January 24, 2023 TIME: 2:34 PM PAGER/CONTACT #: [facility] 01-24-2023 Note HNO ID: [id number] Author: Aide Levy RN Service: ? Author [...] DATE: January 24, 2023 TIME: 10:38 AM [facility] 01-13-2023 Miscellaneous Notes Received [facility] Hem/Onc office notes 01/04/23 fron [facility] Cancer [facility] Record scanned in alycia Zayas asst documented in this encounter [facility] 01-06-2023 Miscellaneous Notes Patient called back is aware of appt date and times Called patient again left message to call me back with appt dates and times Called patient to let him know about PET and CT and he also needs a followup with nicol Blackburn answer left message for him to call me back documented in this encounter [facility] 12-23-2022 Note HNO ID: [id number] Author: Delfina Blue MD, PhD Service: Thoracic Surgery Author Type: Physician Type: Progress Notes Filed: 12/29/2022 12:03 PM Note Text: [place] [address] [place] [facility] NOTE NAME: JARET GRAJEDA [facility] #: [id number] DATE: 12/23/2022 AGE: 62 PHYSICIAN: Delfina Blue [...] He was scheduled for potential simulation in [place] with Dr. Mejia, but somehow has not kept those appointments in check. He did not answer my direct phone call today. It is possible he is being treated out of system for what I suspect it was a stage IB non-small cell lung cancer, but I find no record of that in our system. He does have a progress note from [facility], where he was seen after his recovery from his hospitalization and I think that given that he was compromised recently, radiotherapy should be his treatment. I will attempt to call Dr. Garber and let him know of my thoughts. Delfina Blue M.D., Ph.D. SM:[id number] / [facility] 12-23-2022 Note HNO ID: [id number] Author: Delfina Blue MD, PhD Service: ? Author Type: Physician Type: Progress Notes Filed: 12/23/2022 10:56 AM Note Text: I have read and reviewed the documentation and agree. I wish to add the following findings which have been dictated and will be communicated back to the requesting physician. Delfina Blue MD, PhD [facility] 12-23-2022 Note HNO ID: [id number] Author: Delfina Blue MD, PhD Service: ? Author Type: Physician Type: Progress Notes Filed: 12/23/2022 10:56 AM Note Text: Heart, Vascular AND Thoracic [place] Department of Thoracic Surgery TELEPHONE VISIT (audio [...] visit. Either the patient or their legal surgical device sales representative has been informed of the risks [...] manage going forward Delfina Blue MD, PhD [facility] 12-23-2022 History of Present illness Narrative I have read and reviewed the documentation and agree. I wish to add the following findings which have been dictated and will be communicated back to the requesting physician. Delfina Blue MD, PhD Heart, Vascular & Thoracic [place] Department of Thoracic Surgery TELEPHONE VISIT (audio [...] visit. Either the patient or their legal surgical device sales representative has been informed of the risks [...] Blue MD, PhD documented in this encounter [facility] 12-09-2022 Note HNO ID: [id number] Author: Britany Lynch RN Service: Radiology Author [...] ALLERGIES: Reviewed and unchanged MEDICATIONS REVIEWED BY: Food Safety Specialist and Britany Lynch RN PROCEDURE TYPE: [place] STRESS: 0.4 mg of Lexiscan was administered IV at 1106 by Britany Lynch RN. Reversal agent used: None. Expiration date: 06/2024 Lot#: [id number] IV SITE: Ambulatory: A Saline lock was [...] 09, 2022 TIME: 10:51 AM PAGER/CONTACT #: [facility] 12-09-2022 Note HNO ID: [id number] Author: Demetrice Sumner RT(R) Service: Nuclear Medicine [...] POST EXAM PIV STATUS: Discontinued PROCEDURE TYPE: [place] Stress: 13.0mCi [id number] was administered IV for Rest Imaging at 0955 by RT Stanislav(R). 31.8 mCi Ni91r-Wrssggj was administered IV for Stress Imaging at 1106 by demetrice sumner [facility]. ADMINISTRATION TIME: PATIENT DISCHARGED TO: Ambulatory patient, left [place] department area. A Diagnostic radioactive procedure has taken place, with no further precautions necessary other than routine body substance precautions. More information regarding radiation safety can be found using this link: [email or web address]%20Med [email or web address] SIGNATURE: RT Stanislav(R) PATIENT NAME: Jaret Grajeda DATE: December 09, 2022 TIME: 9:57 AM PAGER/CONTACT #: [facility] 11-24-2022 Miscellaneous Notes Thanks for the [...] Cathy Jovel RN documented in this encounter [facility] 10-15-2022 Note HNO ID: [id number] Author: Delfina Blue MD, PhD Service: ? Author Type: Physician Type: Progress Notes Filed: 10/15/2022 4:54 PM Note Text: [facility] STAFF PHYSICIAN NOTE OF PERSONAL [...] PhD DATE OF SERVICE: October 14, 2022 [facility] 10-14-2022 Note HNO ID: [id number] Author: Fernando Noel MD Service: ? Author Type: Fellow Type: Progress Notes Filed: 10/15/2022 4:54 PM Note Text: [facility] THORACIC SURGERY OUTPATIENT CONSULT NOTE Jaret Grajeda [id number] Requesting Provider: Wade Jones Thoracic Physician: Delfina Blue MD Chief Complaint: lung cancer Impression: Jaret Grajeda is a 62 yoM current heavy 45PYS with newly diagnosed [id number] TRISTEN adenoCA. EBUS with negative level 7 [...] SERVICE: 10/14/2022 TIME of SERVICE: 3:57 PM [facility] 10-14-2022 Note HNO ID: [id number] Author: Ana Steward RRT Service: ? Author [...] 73.5 kg (162 lb) Current Smoker Forehead Bennyo 180/98 208/112 30 _ Distance Walked (meters) [...] PM _ Comments: B/P 5min post 185/98 [facility] 10-14-2022 Note HNO ID: [id number] Author: Delfina Blue MD, PhD Service: Thoracic Surgery Author Type: Physician Type: Progress Notes Filed: 10/18/2022 7:56 PM Note Text: [place] [address] [place] DEPARTMENT OF THORACIC AND CARDIOVASCULAR SURGERY NAME: JARET GRAJEDA [facility] #: [id number] DATE: 10/14/2022 AGE: 62 PHYSICIAN: Delfina Blue [...] very near future. Delfina Blue M.D., Ph.D. :[id number] [facility] 10-14-2022 Procedure note Associated Ord er(s): [...] TIME: 9:29 PM documented in this encounter [facility] 09-28-2022 Note HNO ID: [id number] Author: Don Mejia MD Service: ? Author Type: Physician Type: Progress Notes Filed: 10/06/2022 6:08 AM Note Text: Radiation Oncology - New Patient/Consult Note PATIENT NAME: Jaret Grajeda PATIENT REQUESTING PHYSICIAN: Jennifer Garber MD DIAGNOSIS: Stage IB, eP7N3C0, non-small cell lung cancer (adenocarcinoma) arising from the left upper lobe of the lung. PATIENT IDENTIFICATION: This patient was seen in the Department of Radiation Oncology at the [facility] with Don Mejia MD. He was accompanied today by his family. Final recommendations will be communicated back to the requesting physician by way of the shared medical record, or letter to requesting physician via US mail. HISTORY OF PRESENT ILLNESS: Mr. Grajeda is a 62-year-old gentleman from [place], [place] and heavy tobacco user who was [...] has 1 child, and lives in the [place], [place] area. 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 He reports an approximate 86-qzja-yeln history of smoking and currently smokes a [...] 62-year-old gentleman recently diagnosed with Stage IB, [id number], non-small cell lung cancer (adenocarcinoma) arising from the left upper lobe of the jelena (more content not included)... [facility] 09-27-2022 History of Present illness Narrative Images from the original note were not included. Radiation Oncology - New Patient/Consult Note PATIENT NAME: Jaret Grajeda PATIENT Signed: Don Mejia MD I spent a total of 60 minutes on the date of the service which included preparing to see the patient, wqfu-hp-ytes patient care, and counseling and educating the patient/family/caregiver. This document has been created with the use of voice recognition technology. It may contain inaccuracies, misspellings, inaccurate syntax or inappropriate word context that are a result of the inadequacies/shortcomings of said technology/software. documented in this encounter [facility] 09-27-2022 Note Education (DARRYL) JARET GRAJEDA ([id number]) 1960 M Date Time Provider Department 09/27/22 LILI MARTINEZ Reason for Visit: Patient Education [91] Visit Notes: >> Lili Martinez LPN Mon Sep 27, 2022 12:26 PM Status: Signed Radiation Therapy - Patient Education Note PATIENT NAME: Jaret Grajeda PATIENT September 27, 2022 [facility] FACILITY/LOCATION: [facility] READINESS TO LEARN Cognitive Ability: Alert and [...] need for social work, van service, and retail zone specialist. Was approved? No Signed by: Lili Martinez [...] Encounter Status:Closed by LILI MARTINEZ on 09/27/22 [facility] 09-27-2022 Miscellaneous Notes Thanks for tristen Ochoa Offered Bakari an appointment with Dr Blue on 10/05 he will not take appointment he stated that he has someone taking him on the and discussed with him daughter they would like to keep appt as scheduled. documented in this encounter [facility] 09-27-2022 Nurse Note Radiation Therapy - Patient Education Note PATIENT NAME: Jaret Grajeda PATIENT September 27, 2022 [facility] FACILITY/LOCATION: [facility] READINESS TO LEARN Cognitive Ability: Alert and [...] need for social work, van service, and retail zone specialist. Was approved? No Signed by: Lili Martinez LPN documented in this encounter [facility] 09-21-2022 Miscellaneous Notes Patient called back he is scheduled for Tuesday per his request. Called patient again to schedule tiffany no answer 09/06/22 EBUS results are available in Care Everywhere. Thanks Lili Martinez LPN Referral was made by Dr. Garber and is important to keep. According to the chart he was also supposed to follow-up with Dr. Candelaria in [place] for bronchoscopy/EBUS for pathologic staging of his [...] Lili Martinez LPN documented in this encounter [facility] 09-16-2022 Miscellaneous Notes Left date and time of apt for patient. Sent via DigitalMR - [id number]. Th, 10/14/2022 at [employer] PFTs at 12:30pm/1pm/1:15pm Th, 10/14/2022 at [facility] Consult w/ Dr. Blue at 3:40pm documented in this encounter [facility] 09-09-2022 Miscellaneous Notes Images from the original note were not included. Thoracic Surgery Consultation - review of records for appointment scheduling Received medical records from the office of Wade Jones Sr, MD [address] [facility] [address] Patient is being referred to Unspecified/First Available [...] Cellular evidence of lymph node Procedures: 09/06 [facility] 08/13/22 ct guided bx Imaging . [...] blue pft/dlco/ six min walk Socrates Pastor, CE LOCAL PATIENT Received Fax from Dr. Wade Jones Jaret Grjaeda is being referred to Delfina Blue MD, PhD or Zbigniew Wilkinson M.D. by Wade Jones Sr, MD [address] [place] [address] Patient diagnosis/Reason for consult: Lung Cancer Referral triage process explained: Yes Patient will receive a call from Thoracic NPM after triage review with surgeon to discuss any additional testing and/or consults that will be scheduled. Pt will then receive a call from our scheduling office for scheduling. Please call pt at [phone]. Patient was informed consultation could be at [place] or Main [place]: No Patient Registration: Registration complete/updated: Yes Insurance card(s) scanned in [facility] with in the past year: Yes: Date: 08/26/22 Pt's MyChart is Pending. Ok to communicate to pt via [employer] not asked Medical Records: Records in [facility] (internal CC records): No Imaging in [facility] (internal CC records): No Care Everywhere [...] 26, 2022 Outside Hospital(s) requested imaging from: [facility]. Imaging will be received via Electronic Transfer Received: Yes Imaging uploaded: Yes Waiting on additional: No. Missing (list): n/a Additional providers added to Care Teams: Yes Additional Notes/Comments: n/a Enct routed to: Thoracic NPM for Triage Jeremiah Gibbs, administrative assistant data entry documented in this encounter [facility] 09-09-2022 Miscellaneous Notes I left a message for Jaret to call the office conner regarding his missed appointment for consult with Dr. Mejia today. This is twice that he's no showed to the scheduled consult. I notified Shilpa with Dr. Garber's office of the above as well. Lili Martinez LPN documented in this encounter [facility] 09-06-2022 Note Patient: Jaret Grajeda Procedure Summary Date: 09/06/22 Room / Location: [facility] Main Operating Room Anesthesia Start: 1244 Anesthesia [...] no known notable events for this encounter. [facility] 09-06-2022 Note Airway Date/Time: 09/06/2022 12:57 PM [...] 1 Number of other approaches attempted: 0 [facility] 09-06-2022 Note Patient: Jaret Grajeda Procedure Summary Date: 09/06/22 Room / Location: [facility] Main Operating Room Anesthesia Start: 1244 Anesthesia Stop: Procedure: BRONCHOSCOPY Diagnosis: Primary adenocarcinoma of left lung (CMS/HCC) Scheduled Providers: Chinyere Candelaria MD; James Johnson MD; ARETHA Yang Responsible Provider: James Johnson MD Anesthesia Type: general ASA Status: 3 Anesthesia Post Transport Note Transport to: PACU O2 Route: nasal cannula Oxygen Flow (L/min): 3 Patient Monitor: direct observation Transport: uneventful Patient condition is: stable [facility] 09-06-2022 Note Patient: Jaret Grajeda Procedure Information Date/Time: 09/06/22 1200 Scheduled providers: Chinyere Candelaria MD; James Johnson MD; ARETHA Yang Procedure: BRONCHOSCOPY Location: [facility] Main Operating Room Relevant Problems No relevant [...] 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 Additional Equipment Requests [facility] 08-19-2022 Note Attestation signed by Chinyere Candelaria [...] Age: 62 y.o. : 1960 Account No.: [id number] Referring physician: Chief complaint: Lung mass, newly [...] BICARB, CO2, CO2, PH, PH, PHART, PHVEN, BSZ3KGL, BPB6COD, XYF2MXE, PO2POC, PO2ART, PO2VEN, RAE1MQY, BEP2IXG Radiology: No Chest X-ray results found for [...] was initiated by the patient and conducted sno-sfmf-zm-face with use of audio-only real time telephone communication between patient and provider for a virtual visit. Verbal consent to provide and bill for this service was obtained No signature was obtained due to the COVID-19 pandemic. Micheal Feliz MD PCCM Fellow [facility] 08-18-2022 Note . [facility] 05-26-2022 Note PROCEDURE: XR FOOT R T [...] authenticated by: ANNE GUADALUPE Date: 2022-05-26 19:40 [facility] 04-14-2022 Note PROCEDURE: XR FOOT R T [...] authenticated by: LEIGH PUCKETT Date: 2022-04-14 09:05 [facility] 03-31-2022 Note PROCEDURE: XR FOOT R T [...] authenticated by: LEIGH PUCKETT Date: 2022-03-31 08:08 [facility] 03-23-2022 Note PROCEDURE: XR FOOT R T [...] authenticated by: ANNE GUADALUPE Date: 2022-03-23 12:49 [facility] Evaluation note Diagnosis Malignant neoplasm of left lung, unspecified part of lung (HCC)- [facility] Diagnosis 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)- Primary [facility] Diagnosis Malignant neoplasm of left lung, unspecified part of lung (HCC) [facility] Diagnosis Malignant neoplasm of left lung, unspecified part of lung (HCC) documented in this encounter [facility] note* Diagnosis Personal history of malignant neoplasm of bronchus and lung- Primary [facility] Diagnosis Neoplasm of lung- Primary Neoplasm of unspecified nature of respiratory system [facility] Diagnosis 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)- Primary documented in this encounter [facility] for referral (narrative)* Outpatient Procedure (Routine) - Pending Review Specialty Diagnoses / Procedures Referred By Javy t Referred To Contact [facility] Diagnoses Malignant neoplasm of left lung, unspecified part of lung (HCC) Procedures SIX MINUTE WALK CARDIOPULMONARY EXERCISE STRESS Delfina Blue MD, PhD [address] [place] [address] Res[facility] [place] [facility] [place] [address] Referral ID Status Reason Start Date Expiration Date Visits Requested Visits Authorized [id number] Pending Review Auto-Generat ed Referral 09/09/2022 10/09/2023 1 1 * Outpatient Procedure (Routine) - Pending Review Specialty Diagnoses / Procedures Referred By Contac t Referred To Contact [facility] Diagnoses Malignant neoplasm of left lung, unspecified part of lung (HCC) Procedures LUNG DIFFUSION CAPACITY (DLCO) DIFFUSING CAPACITY Delfina Blue MD, PhD [address] [facility] [address] [place] [address] [place] [address] Referral ID Status Reason Start Date Expiration Date Visits Requested Visits Authorized [id number] Pending Review Auto-Generat ed Referral 09/09/2022 10/09/2023 1 1 * Outpatient Procedure (Routine) - Pending Review Specialty Diagnoses / Procedures Referred By Contac t Referred To Contact [facility] Diagnoses Malignant neoplasm of left lung, unspecified part of lung (HCC) Procedures SPIROMETRY BASELINE ONLY SPMTRY W/VC EXPIRATORY RU W/WO MXML VOL VNTJ Delfina Blue MD, PhD [address] [facility] [address] [place] [id number] [place] [address] [address] [id number] Referral ID Status Reason Start Date Expiration Date Visits Requested Visits Authorized [id number] Pending Review Auto-Generat ed Referral 09/09/2022 10/09/[address] [facility] Summary Purpose Family History No Family History [...] COMPUTED TOMOGRAPHY THORAX W/CONTRAST Don Mejia MD [address] [place] [address] [place] [address] Ct [address] [place] [address] Referral ID Status Reason Start Date Expiration Date Visits Requested Visits Authorized [id number] Authorized Auto-Generat ed Referral 06/09/2023 04/09/2024 1 1 Additional Source Comments (unrecognized sect ion and content) No Status Records FoundNo Status Records FoundNo Status Records FoundNo Status Records Found INFORMATION SOURCE (unrecogn ized section and content) DATE CREATED AUTHOR 05/30/2022 [facility] DATE CREATED AUTHOR AUTHOR'S ORGANIZ ATION 09/09/2022 [facility] DATE CREATED AUTHOR AUTHOR'S ORGANIZ ATION 10/15/2022 [facility] DATE CREATED AUTHOR AUTHOR'S ORGANIZ ATION 07/01/2023 [facility] Source Comments (unrecognize d section and content) In the event this informatio n is protected by the Federal Confidentiality of Alcohol and Drug Abuse Patient Records regulations: The Federal rules restrict any use of the information to criminally investigate or prosecute any alcohol or drug abuse patient.[facility] the event this information is protected by the Federal Confidentiality of Alcohol and Drug Abuse Patient Records regulations: The Federal rules restrict any use of the information to criminally investigate or prosecute any alcohol or drug abuse patient.[facility] the event this information is protected by the Federal Confidentiality of Alcohol and Drug Abuse Patient Records regulations: The Federal rules restrict any use of the information to criminally investigate or prosecute any alcohol or drug abuse patient.[facility] the event this information is protected by the Federal Confidentiality of Alcohol and Drug Abuse Patient Records regulations: The Federal rules restrict any use of the information to criminally investigate or prosecute any alcohol or drug abuse patient.[facility] the event this information is protected by the Federal Confidentiality of Alcohol and Drug Abuse Patient Records regulations: The Federal rules restrict any use of the information to criminally investigate or prosecute any alcohol or drug abuse patient.[facility] the event this information is protected by the Federal Confidentiality of Alcohol and Drug Abuse Patient Records regulations: The Federal rules restrict any use of the information to criminally investigate or prosecute any alcohol or drug abuse patient.[facility] the event this information is protected by the Federal Confidentiality of Alcohol and Drug Abuse Patient Records regulations: The Federal rules restrict any use of the information to criminally investigate or prosecute any alcohol or drug abuse patient.[facility] the event this information is protected by the Federal Confidentiality of Alcohol and Drug Abuse Patient Records regulations: The Federal rules restrict any use of the information to criminally investigate or prosecute any alcohol or drug abuse patient.[facility] the event this information is protected by the Federal Confidentiality of Alcohol and Drug Abuse Patient Records regulations: The Federal rules restrict any use of the information to criminally investigate or prosecute any alcohol or drug abuse patient.[facility] the event this information is protected by the Federal Confidentiality of Alcohol and Drug Abuse Patient Records regulations: The Federal rules restrict any use of the information to criminally investigate or prosecute any alcohol or drug abuse patient.[facility] the event this information is protected by the Federal Confidentiality of Alcohol and Drug Abuse Patient Records regulations: The Federal rules restrict any use of the information to criminally investigate or prosecute any alcohol or drug abuse patient.[facility] the event this information is protected by the Federal Confidentiality of Alcohol and Drug Abuse Patient Records regulations: The Federal rules restrict any use of the information to criminally investigate or prosecute any alcohol or drug abuse patient.[facility] the event this information is protected by the Federal Confidentiality of Alcohol and Drug Abuse Patient Records regulations: The Federal rules restrict any use of the information to criminally investigate or prosecute any alcohol or drug abuse patient.[facility] the event this information is protected by the Federal Confidentiality of Alcohol and Drug Abuse Patient Records regulations: The Federal rules restrict any use of the information to criminally investigate or prosecute any alcohol or drug abuse patient.[facility] the event this information is protected by the Federal Confidentiality of Alcohol and Drug Abuse Patient Records regulations: The Federal rules restrict any use of the information to criminally investigate or prosecute any alcohol or drug abuse patient.[facility] the event this information is protected by the Federal Confidentiality of Alcohol and Drug Abuse Patient Records regulations: The Federal rules restrict any use of the information to criminally investigate or prosecute any alcohol or drug abuse patient.[facility] the event this information is protected by the Federal Confidentiality of Alcohol and Drug Abuse Patient Records regulations: The Federal rules restrict any use of the information to criminally investigate or prosecute any alcohol or drug abuse patient.[facility] the event this information is protected by the Federal Confidentiality of Alcohol and Drug Abuse Patient Records regulations: The Federal rules restrict any use of the information to criminally investigate or prosecute any alcohol or drug abuse patient.[facility] the event this information is protected by the Federal Confidentiality of Alcohol and Drug Abuse Patient Records regulations: The Federal rules restrict any use of the information to criminally investigate or prosecute any alcohol or drug abuse patient.[facility] the event this information is protected by the Federal Confidentiality of Alcohol and Drug Abuse Patient Records regulations: The Federal rules restrict any use of the information to criminally investigate or prosecute any alcohol or drug abuse patient.[facility] Reason for Visit (unrecogniz ed section and [...] (DLCO) DIFFUSING CAPACITY Delfina Blue MD, PhD [address] LibraryThingCarrie [address]annaBuild [address] [place] [address] Respiratory [place] [address] [place] [address] Referral ID Status Reason Start Date Expiration Date V isits Requested Visits Authorized [id number] Closed Auto-Generate d Referral 09/09/2022 10/09/2023 1 1 Specialty Diagnoses / Procedures Referred By Contac t Referred To [facility] Diagnoses Malignant neoplasm of left lung, unspecified part of lung (HCC) Procedures SPIROMETRY BASELINE ONLY SPMTRY W/VC EXPIRATORY RU W/WO MXML VOL VNTJ Delfina Blue MD, PhD [address] digitalboxHENRY MAYO NEWHALL MEMORIAL HOSPITALRobert [address] [place] [address] Respiratory [place] [address] [place] [address] Referral ID Status Reason Start Date Expiration Date V isits Requested Visits Authorized [id number] Closed Auto-Generate d Referral 09/09/2022 10/09/2023 1 1 Specialty Diagnoses / Procedures Referred By Contac t Referred To Contact [facility] Diagnoses Malignant neoplasm of left lung, unspecified part of lung (HCC) Procedures SIX MINUTE WALK CARDIOPULMONARY EXERCISE STRESS PULMONARY STRESS TESTING Delfina Blue MD, PhD [address] [facility] [address] [place] [address] Respiratory [place] [address] [place] [address] Referral ID Status Reason Start Date Expiration Date V isits Requested Visits Authorized [id number] Closed Auto-Generate d Referral 10/01/2022 02/06/2023 1 1 Reason Comments Mass Reason Comments Future Appointment Reason Comments Received Outside Medical Records Reason Comments Orders Reason Comments Patient Update Post Radiation Treat ment Nurse Call Reason Comments Lung Cancer Specialty Diagnoses / Procedures Referred By Contac t Referred To Contact [facility] Diagnoses . Procedures . [place] [address] Referral ID Status Reason Start Date Expiration Date Visits Requested Visits Authorized [id number] Authorized Financial Clearance Required - Self Pay Patient Cleared - Qualified HCAP/501/FA 03/31/2023 06/29/2023 99 99 Care Teams (unrecognized sec tion and content) Technical Support Analyst Relationship Specialty Start Date End Date Wade Jones Sr. [address] [place] [address] PCP - General Family Medicine 08/26/22 Chinyere Candelaria [address] [place] [phone] Critical Care 08/26/22 Jennifer Garber MD [address] [place] [address] Hematology/Oncology 08/26/22 Technical Support Analyst Relationship Specialty Start Date End Date Wade Jones Sr. [address] [place] [address] PCP - General Family Medicine 08/26/22 Chinyere Candelaria [address] [place] [phone] Critical Care 08/26/22 Jennifer Garber MD [address] [place] [address] Hematology/Oncology 08/26/22 Technical Support Analyst Relationship Specialty Start Date End Date Wade Jones Sr. [address] [place] [address] PCP - General Family Medicine 08/26/22 Chinyere Candelaria [address] [place] [phone] Critical Care 08/26/22 Jennifer Garber MD [address] [place] [address] Hematology/Oncology 08/26/22 Technical Support Analyst Relationship Specialty Start Date End Date Wade Jones Sr. [address] [place] [address] PCP - General Family Medicine 08/26/22 Chinyere Candelaria [address] [place] [phone] Critical Care 08/26/22 Jennifer Garber MD [address] [facility] [place] [address] Hematology/Oncology 08/26/22 Technical Support Analyst Relationship Specialty Start Date End Date Wade Jones Sr. [address] [facility] [place] [place] [address] PCP - General Family Medicine 08/26/22 Chinyere Candelaria [address] [place] [phone] Critical Care 08/26/22 Jennifer Garber MD [address] [facility] [place] [address] Hematology/Oncology 08/26/22 Technical Support Analyst Relationship Specialty Start Date End Date Wade Jones Sr. [address] [facility] [place] [place] [address] PCP - General Family Medicine 08/26/22 Chinyere Candelaria [address] [place] [phone] Critical Care 08/26/22 Jennifer Garber MD [address] [facility] [place] [address] Hematology/Oncology 08/26/22 Technical Support Analyst Relationship Specialty Start Date End Date Wade Jones Sr. [address] [facility] [place] [address] PCP - General Family Medicine 08/26/22 Chinyere Candelaria [address] [facility] [phone] Critical Care 08/26/22 Jennifer Garber MD [address] [facility] [place] [address] Hematology/Oncology 08/26/22 Technical Support Analyst Relationship Specialty Start Date End Date Wade Jones Sr. [address] [facility] [place] [place] [address] PCP - General Family Medicine 08/26/22 Chinyere Candelaria MD [address] [facility] [place] [phone] Critical Care 08/26/22 Jennifer Garber MD [address] [facility] [place] [address] Hematology/Oncology 08/26/22 Technical Support Analyst Relationship Specialty Start Date End Date Wade Jones Sr. [address] [place] [address] PCP - General Family Medicine 08/26/22 Chinyere Candelaria MD [address] [facility] [place] [phone] Critical Care 08/26/22 Jennifer Garber MD [address] [facility] [place] [address] Hematology/Oncology 08/26/22 Technical Support Analyst Relationship Specialty Start Date End Date Wade Jones Sr., [address] [place] [address] PCP - General Family Medicine 08/26/22 Chinyere Candelaria MD [address] [place] [address] Critical Care 08/26/22 Jennifer Garber MD [address] [place] [address] Hematology/Oncology 08/26/22 Technical Support Analyst Relationship Specialty Start Date End Date Wade Jones Sr., DO [address] [place] [address] PCP - General Family Medicine 08/26/22 Chinyere Candelaria MD [address] [place] [phone] Critical Care 08/26/22 Jennifer Garber MD [facility] [place] [address] Hematology/Oncology 08/26/22 Technical Support Analyst Relationship Specialty Start Date End Date Wade Jones Sr., DO [address] [place] [address] PCP - General Family Medicine 08/26/22 Chinyere Candelaria MD [address] [place] [id number] Critical Care 08/26/22 Jennifer Garber MD [address] [place] [address] Hematology/Oncology 08/26/22 Technical Support Analyst Relationship Specialty Start Date End Date Wade Jones Sr., DO [address] [place] [address] PCP - General Family Medicine 08/26/22 Chinyere Candelaria MD [address] [place] [phone] Critical Care 08/26/22 Jennifer Garber MD [address] [place] [address] Hematology/Oncology 08/26/22 Technical Support Analyst Relationship Specialty Start Date End Date Wade Jones Sr., DO [address] [place] [address] PCP - General Family Medicine 08/26/22 Chinyere Candelaria MD [address] [place] [phone] Critical Care 08/26/22 Jennifer Garber MD [address] [place] [address] Hematology/Oncology 08/26/22 Technical Support Analyst Relationship Specialty Start Date End Date Wade Jones Sr., DO [address] [place] [address] PCP - General Family Medicine 08/26/22 Chinyere Candelaria MD [address] [place] [phone] Critical Care 08/26/22 Jennifer Garber MD [address] [place] [address] Hematology/Oncology 08/26/22 Technical Support Analyst Relationship Specialty Start Date End Date Wade Jones Sr., DO [address] [place] [address] PCP - General Family Medicine 08/26/22 Chinyere Candelaria MD [address] [place] [phone] Critical Care 08/26/22 Jennifer Garber MD [address] [place] [address] Hematology/Oncology 08/26/22 Technical Support Analyst Relationship Specialty Start Date End Date Wade Jones Sr., DO [address] [place] [address] PCP - General Family Medicine 08/26/22 Chinyere Candelaria MD [address] [facility] [address] Critical Care 08/26/22 Jennifer Garber MD [address] [place] [address] Hematology/Oncology 08/26/22 Technical Support Analyst Relationship Specialty Start Date End Date Wade Jones Sr., DO PCP - General Family Medicine 08/26/22 Chinyere Candelaria MD [address] [place] [address] Critical Care 08/26/22 Jennifer Garber MD [address] [place] [address] Hematology/Oncology 08/26/22 FOR RECORDS PERTAINING TO PATIENTS [...] BE BASED ON THE PRIMARY CLINICAL RECORDS. [employer] [facility] provides no warranty or guarantee of the accuracy or completeness of information in this document.
[2023-07-27 09:29] LABS: Anion Gap 11.5; BUN Creatinine Ratio 10.6; Calcium 8.2 mg/dL (8.5-10.1); Carbon Dioxide 26.3 mmol/L (21.0-32.0); Chloride 98 mmol/L (98-107); Estimated GFR (African America >60 (>=60); Estimated GFR (Non-African Ame >60 (>=60); Glucose 92 mg/dL (74-106); Potassium 3.8 mmol/L (3.5-5.1); Sodium 132 mmol/L (136-145)
== END 2023-07-27 02:15 | disposition home or self-care (01) ==
LOC: LAB 02:14
PROVIDERS: PCP Internal Medicine Hematology & Oncology; Visit Provider Family Medicine
DX: R60.9 Edema, unspecified (principal)
CPT/HCPCS: 36415; 80048; 83880

== ENCOUNTER 2023-07-29 02:59 | Outpatient (REF) | payer MEDICARE, OTHER, SELFPAY ==
--- OUTSIDE RECORDS SUMMARY | 2023-07-29 03:01 | XMS_ITS ---
Patient Summarization (C-CDA 2.1 CCD) Created on: July 29, 2023 MR. 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 Name Role Phone EDWIN ., SEN Attending Unavailable EDWIN ., SEN Admitting Unavailable KAREN, DR TREVINO Primary Care Unavailable COLLINS, DR ANNE Cornejo Consulting Unavailable DALE, YAMILA Consulting Unavailable EDWIN ., SEN Consulting Unavailable CECILIO ., NICHOLE Attending Unavailable CECILIO ., NICHOLE Admitting Unavailable HOUSE, DR TREVINO Primary Care Unavailable WEST, DR ANNE Cornejo Consulting Unavailable CECILIO ., NICHOLE Consulting Unavailable HOUSE, DR TREVINO Attending Unavailable HOUSE, DR TREVINO Admitting Unavailable HOUSE, DR TREVINO Primary Care Unavailable HOUSE, DR TREVINO Primary Care Unavailable HOUSE, DR TREVINO Consulting Unavailable HOUSE, DR TREVINO Attending Unavailable HOUSE, DR TREVINO Admitting Unavailable WEST, DR ANNE Cornejo Consulting Unavailable HOUSE, DR TREVINO Primary Care Unavailable HIGHLANDER, LAISHA Otto Attending Unavailable HIGHLANDER, LAISHA Otto Admitting Unavailable HIGHLANDER, LAISHA Otto Consulting Unavailable HIGHLANDER, LAISHA Otto Admitting Unavailable HOUSE, DR TREVINO Primary Care Unavailable HIGHLANDER, LAISHA Otto Attending Unavailable ZIEBER, DR LEIGH Mitchell Consulting Unavailable HIGHLANDER, LAISHA Otto Consulting Unavailable HIGHLANDER, LAISHA Otto Admitting Unavailable ZIEBER, DR LEIGH Mitchell Consulting Unavailable HOUSE, DR TREVINO Primary Care Unavailable HIGHLANDER, LAISHA Otto Attending Unavailable HIGHLANDER, LAISHA Otto Consulting Unavailable MARLENI GARBER Referring Unavailable CHINYERE CANDELARIA Attending Unavailable HADZIKENMETSERGIO, CHARLIE Referring Unavaila ble HADZIAHMETSERGIO, MERSJUAN FA Referring Unavaila ble CHINYERE CANDEALRIA Referring Unavailable CHINYERE CANDELARIA Attending Unavailable CHINYERE CANDELARIA Referring Unavailable House .Wade Primary Care Provider Chinyere Candelaria Unavailable [phone] Jennifer Garber MD Unavailable [phone] Chinyere Candelaria MD Unavailable [phone] MARTIN, SUDISH Referring Unavailable HOUSE SR, WADE WOLF Primary Care Unavai lable MARTIN, SUDISH Referring Unavailable HOUSE SR, WADE WOLF Primary Care Unavai lable HOUSE SR, WADE WOLF Primary Care Unavai lable MARTIN, SUDISH Referring Unavailable House Sr., DO, Wade Luciano Primary Care [facility] ider House Sr., Wade BULL Primary Care [...] ON FILE] Propensity to adverse reactions (disorder) [facility] Repository Encounters Encounter Date Encounter Type Care Provider Facility Start: 06-29-2023 End: 06-29-2023 ambulatory WADE P HOUSE SR Facility:[facility] Start: 06-16-2023 Telephone encounter Don Mejia MD Work Phone: Radiation Oncology Comment on above: Future Appointment Start: 04-08-2023 End: 04-08-2023 ambulatory DON MEJIA Facility:[facility] Start: 04-08-2023 End: 04-08-2023 Patient encounter procedure Don Mejia MD Work Phone: Radiation Oncology Comment on above: Malignant neoplasm o f upper lobe of left lung (HCC) (Primary Dx) Start: 03-31-2023 End: 03-31-2023 ambulatory WADE JONES Facility:[facility] Start: 03-24-2023 Telephone encounter Don Mejia MD Work Phone: Radiation Oncology Comment on above: Patient Update (Post Radiation Treatment Nurse Call ) Start: 03-11-2023 Telephone encounter Don Mejia MD Work Phone: Radiation Oncology Comment on above: Orders Start: 03-07-2023 End: 03-07-2023 ambulatory WADE Cole [facility] Facility:[facility] Start: 03-07-2023 Patient encounter procedure Don Mejia MD Work Phone: [employer] Start: 03-07-2023 Radiation Oncology Note Don carter MD Work Phone: Radiation Oncology Comment on above: Completion Note Start: 03-04-2023 End: 03-04-2023 ambulatory DON MEJIA Facility:[facility] Start: 03-02-2023 End: 03-02-2023 ambulatory DON MEJIA Facility:[facility] Start: 02-28-2023 End: 02-28-2023 ambulatory DON MEJIA Facility:[facility] Start: 02-11-2023 Patient encounter procedure Don Mejia MD Work Phone: [employer] Start: 02-11-2023 Radiation Oncology Note Don carter MD Work Phone: Radiation Oncology Comment on above: Treatment Planning Start: 02-11-2023 End: 02-11-2023 ambulatory DON MEJIA Facility:[facility] Start: 01-24-2023 End: 01-24-2023 ambulatory WADE JONES SR Facility:[facility] Start: 01-13-2023 Telephone encounter Delfina koehler MD, PhD Work Phone: [facility] Comment on above: Received Outside Med ical Records Start: 01-05-2023 Telephone encounter Don Mejia MD [facility] Comment on above: Appointment Confirma tion Start: 12-23-2022 End: 12-23-2022 ambulatory Delfina Blue MD, PhD Work Phone: [facility] Comment on above: Personal history of malignant neoplasm of bronchus and lung (Primary Dx) Start: 12-23-2022 End: 12-23-2022 Telemedicine consultation with patient Delfina Blue MD, PhD Work Phone: [facility] Start: 12-09-2022 End: 12-09-2022 ambulatory DELFINA BLUE Facility:[facility] Start: 12-09-2022 Encounter for other preprocedural examination DELFINA BLUE [facility] Start: 10-18-2022 Telephone encounter Don Mejia MD Work Phone: Radiation Oncology Comment on above: Future Appointment Start: 10-14-2022 End: 10-14-2022 ambulatory WADE JONES SR Pulmonology Comment on above: Spirometry Start: 10-14-2022 End: 10-14-2022 Patient encounter procedure [facility] [place] Work Phone: [facility] Start: 09-27-2022 End: 09-27-2022 ambulatory Lili Martinez LPN Radiation Oncology Comment on above: Patient Education Start: 09-27-2022 Telephone encounter Don Mejia MD Work Phone: [facility] Comment on above: FYI-No Action [...] above: Appointment Start: 09-06-2022 End: 09-07-2022 ambulatory [facility] Start: 09-03-2022 End: 09-04-2022 ambulatory [facility] Start: 08-26-2022 Telephone encounter Delfina koehler MD, PhD Work Phone: Thoracic Clinic Comment on above: External Referrals/r esources; Consult Start: 08-19-2022 ambulatory [facility] Start: 08-18-2022 End: 08-19-2022 ambulatory [facility] Start: 08-17-2022 End: 08-18-[facility] Start: 05-26-2022 End: 05-27-[address] ANNE GUADALUPE Facility:[facility] Start: 04-13-2022 End: 04-14-2022 ambulatory LAISHA HOUSE Facility:[facility] Start: 03-30-2022 End: 03-31-2022 ambulatory LAISHA HOUSE Facility:[facility] Start: 03-23-2022 End: 03-23-2022 ambulatory NICHOLE HERNANDES . Facility:[facility] Start: 01-19-[address] WADE JONES Facili ty:[facility] Start: 06-19-2021 End: 06-19-2021 ambulatory SEN PINEDA . Facility:[facility] Start: 06-18-2021 End: 06-19-[address] WADE JONES Facility:[facility] Medications Current Medications Medication Drug Class(es) Dates [...] in the CT contrast administration guidelines link. Payers Date Payer Category Payer Unknown MURTAZA LOPEZ PPO [id number] 2022-Present [phone] [address] [place] [address] PPO [id number] 1961 Self-pay 1961 Unknown [id number] 1960 Unknown [id number] 1960 Unknown [id number] 1960 Unknown [id number] 1960 Unknown [id number] 1960 Unknown [id number] 1960 Unknown [id number] 1960 Unknown [id number] Plan of Treatment Date Care Activity Detail Author Start: 10-09-2023 Influenza vaccination Influenz a Vaccine (Season Ended) [facility] Start: 07-11-2023 End: 07-11-2023 Patient encounter procedure 07/11/2023 2:00 PM EDT Office Visit Radiation Oncology [address] [address] Don Mejia MD [address] [place] [address] Radiation Oncology Comment on above: Followup after ct Start: 07-05-2023 End: 07-05-2023 Patient encounter procedure 07/05/2023 9:15 AM EDT Appointment Radiology [facility] [address] [place] [place] [address] CT [address] Comment on above: CT chest Start: 06-09-2023 End: 09-08-2023 CREATININE BLD CREATININE BLD Lab Routine Neoplasm of lung Expected: 06/09/2023, Expires: 09/08/2023 [facility] Work Phone: Comment on above: Expected: 06/09/2023 , Expires: 09/08/2023 Start: 06-09-2023 End: 04-09-2024 CT CHEST W IVCON CT CHEST W IVCON Radiology Routine Neoplasm of lung Expected: 06/09/2023, Expires: 04/09/2024 [facility] Work Phone: Comment on above: Expected: 06/09/2023 , Expires: 04/09/2024 Start: 02-07-2023 Behavioral Health Screening Behavioral Health Screening [facility] Start: 02-07-[address] [facility] Start: 10-08-2022 Covid-19 Vaccine () Covid-19 Vaccine () [facility] Start: 10-08-2022 Influenza vaccination [facility] Start: 02-07-2022 [facility] Start: 12-22-2020 COVID-19 VACCINE (3 - Pfizer series) COVID-19 VACCINE (3 - Pfizer series) [facility] Start: 2018 RSV Vaccine (1 - 1-d ose 60+ series) RSV Vaccine (1 - 1-dose 60+ series) [facility] Start: 2013 PROSTATE CANCER SCREENING DISCUSSION PROSTATE CANCER SCREENING DISCUSSION [facility] Start: 2013 Prostate specific antigen measurement Prostate Cancer Screening Discussion [facility] Start: 2008 SHINGRIX VACCINE (1 of 2) SHINGRIX VACCINE (1 of 2) [facility] Start: 07-22-2003 COLOGUARD (FIT-DNA) COLOGUARD (FIT-D NA) [facility] Start: 07-22-2003 Colonoscopy COLONOSCOPY [facility] Start: 07-22-2003 COLORECTAL CANCER SCREENING COLORECTAL CANCER SCREENING [facility] Start: 07-22-[address] COLONOGRAPHY [facility] Start: 07-22-2003 DIABETES SCREEN DIABETES SCREEN [facility] Start: 07-22-2003 Diabetes Screening Diabetes Screenin g [facility] Start: 07-22-2003 FECAL OCCULT BLOOD FECAL OCCULT BLOO D [facility] Start: 07-22-2003 Screening for malign ant neoplasm of colon [facility] Start: 07-22-2003 [facility] Start: 1993 Lipid 1996 panel - S carol or Plasma Lipid Screening [facility] Start: 1993 Lipid panel Lipid Screening [facility] Start: 1993 LIPID SCREEN LIPID SCREEN [facility] Start: 1977 Urine microalbumin profile [facility] Start: 1976 HEPATITIS C SCREENING HEPATITIS C [facility] Start: 1976 Hepatitis C screening Hepatitis C [facility] Start: 1976 HIV SCREENING HIV SCREENING [facility] Start: 1976 HIV screening HIV Screening [facility] Start: 1964 PNEUMOCOCCAL (1 - PCV) PNEUMOCOCCAL (1 - PCV) [facility] Start: 1964 Pneumococcal vaccination [facility] Start: 01-20-1959 COVID-19 VACCINE (#1) COVID-19 VACCI NE (#1) [facility] End: 10-09-2023 LUNG DIFFUSION CAPACITY (DLCO) LUNG DIFFUSION CAPACITY (DLCO) PFT Routine Malignant neoplasm of left lung, unspecified part of lung (HCC) 1 Occurrences starting 09/09/2022 until 10/09/2023 [facility] Work Phone: Comment on above: 1 Occurrences starti ng 09/09/2022 until 10/09/2023 LUNG DIFFUSION CAPAC ITY (DLCO) LUNG DIFFUSION CAPACITY (DLCO) PFT Routine Malignant neoplasm of left lung, unspecified part of lung (HCC) 10/14/2022 12:37 PM EDT [facility] Work Phone: End: 10-09-2023 SIX MINUTE WALK SIX MINUTE WALK PFT Routine Malignant neoplasm of left lung, unspecified part of lung (HCC) 1 Occurrences starting 09/09/2022 until 10/09/2023 [facility] Work Phone: Comment on above: 1 Occurrences starti ng 09/09/2022 until 10/09/2023 End: 10-09-2023 SPIROMETRY BASELINE ONLY SPIROMETRY BASELINE ONLY PFT Routine Malignant neoplasm of left lung, unspecified part of lung (HCC) 1 Occurrences starting 09/09/2022 until 10/09/2023 [facility] Work Phone: Comment on above: 1 Occurrences starti ng 09/09/2022 until 10/09/2023 SPIROMETRY BASELINE ONLY SPIROME TRY BASELINE ONLY PFT Routine Malignant neoplasm of left lung, unspecified part of lung (HCC) 10/14/2022 12:37 PM EDT [facility] Work Phone: [facility] Problems Active Problems Problem Classification Problem Date [...] 03-11-2023 Episodic Other aftercare (1 source) Other emt intermediate (current) drug therapy; Translations: [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 Angela Hayesfany 06/20/2023 8:27 AM Signed Patient is r/s [...] Encounter Status:Closed by CATHY JOVEL on 06/23/23 [facility] 04-08-2023 CNOV Office Visit (RADTSA ) JARET GRAJEDA ([id number]) 1960 M Date Time Provider Department 04/08/23 [...] 62-year-old gentleman diagnosed with a Stage IB, [id number], non-small cell lung cancer (adenocarcinoma) arising from [...] Encounter Status:Closed by DON MEJIA on 04/18/23 [facility] 03-24-2023 [facility] (RODDYA) JARET GRAJEDA ([id number]) 1960 M Date Time Provider Department 03/24/23 [...] Encounter Status:Closed by CATHY JOVEL on 03/28/23 [facility] 03-11-2023 CNPN Telephone (RADTSA) JARET GRAJEDA ([id number]) 1960 M Date Time Provider Department 03/11/23 DON MEJIA During your visit today, we [...] of lung [D49.1] Order(s):CT CHEST W IVCON [[id number]] Order #: [id number] FUTURE [] iv contrast (will be provided [...] EachRfl: 0 CREATININE BLD [SQCRET] Order #: [id number] FUTURE Prescriptions as of 03/14/2023 - metoprolol [...] Encounter Status:Closed by LILI MARTINEZ on 03/14/23 [facility] 02-28-2023 CNOV Office Visit (RADTSA ) JARET GRAJEDA ([id number]) 1960 M Date Time Provider Department 02/28/23 [...] 62-year-old gentleman diagnosed with a Stage IB, [id number], non-small cell lung cancer (adenocarcinoma) arising from [...] Date Reviewed: 02/28/2023 Reviewed by: Cathy Jovel, RN - Fully Assessed Reason for Visit: Radiotherapy On-treatment Visit [1722] Primary Visit Diagnosis: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) [C34.12] Prescriptions as of 03/03/2023 - metoprolol succinate ER (TOPROL XL) 50 mg 24 hr tablet Take 1 tablet by mouth every 12 hours. Problem List As Of Date: 02/28/2023 (None) Encounter Status:Closed by DON MEJIA on 03/03/23 [facility]OV[facility] 02-11-2023 CNOV Office Visit (RADTSA ) JARET GRAJEDA ([id number]) 1960 M Date Time Provider Department 02/11/23 11:30 AM DON MEJIA During your visit today, we recorded the following information about you: Don Mejia MD 02/22/2023 4:26 AM Addendum Radiation Oncology - Follow Up Note PATIENT NAME: Jaret Grajeda PATIENT DIAGNOSIS/PATIENT IDENTIFICATION: Mr. Grajeda is a 62-year-old gentleman diagnosed with Stage IB, [id number], non-small cell lung cancer (adenocarcinoma) arising from [...] cancer. He met with Dr. Blue at [facility] and was recommended a cardiac workup which [...] 62-year-old gentleman diagnosed with a Stage IB, [id number], non-small cell lung cancer (adenocarcinoma) arising from [...] as potent (more content not included)... Normal [facility] Annalisa 01-25-2023 [facility] Tele[facility] (NCCAP) JARET GRAJEDA ([id number]) 1960 Date Time Provider Department 01/25/23 DON MEJIA During your visit today, we recorded the following information about you: Allergies As of Date: 01/25/2023 (No Known Allergies) Date Reviewed: 12/09/2022 Reviewed by: Shilpa Pop Ethyl Blender - Fully Assessed Prescriptions as of 01/26/2023 - metoprolol succinate ER (TOPROL XL) 50 mg 24 hr tablet Take 1 tablet by mouth every 12 hours. Problem List As Of Date: 01/25/2023 (None) Encounter Status:Closed by PURNIMA HAYES on 01/26/23 Normal [facility] CNPN Telephone (NCCAP) JARET GRAJEDA ([id number]) 1960 M Date Time Provider Department 01/25/23 DON MEJIA NCCAP During your visit today, we recorded the following information about you: Purnima Hayes 01/25/2023 12:17 PM Signed Patient is called and scheduled for Followup and SIM next week, I told him I would also send him a reminder as he has a tough time keeping appointments, thank you. Allergies As of Date: 01/25/2023 (No Known Allergies) Date Reviewed: 12/09/2022 Reviewed by: Shilpa Pop Ethyl Blender - Fully Assessed Reason for Visit: Appointment Confirmation [[id number]] Prescriptions as of 01/26/2023 - metoprolol succinate ER (TOPROL XL) 50 mg 24 hr tablet Take 1 tablet by mouth every 12 hours. Problem List As Of Date: 01/25/2023 (None) Encounter Status:Closed by PURNIMA HAYES on 01/26/23 Normal [facility] CREATININE BLDon 01-24-2023 Creatinine [Mass/Vol] 0.84 mg/dL Normal 0.73-1.22 [facility] Comment on above: Order Comment: Speci men Type: BLOOD SPECIMENOrdering Facility: [facility] Address: [address] [place], [place] [id number] Performed By: #### C RET1 ####[facility] LABCLIA [id number] [place] [address] Creatinine and Glomerular filtration rate.predicted panel (S/P/Bld) 97 mL/min/1.73m??? Normal >=60 [facility] Comment on above: Order Comment: Speci men Type: BLOOD SPECIMENOrdering Facility: [facility] Address: [place] [id number] Result Comment: Racquel mated Glomerular Filtration Rate [...] actual GFR. Performed By: #### C RET1 ####[facility] LABCLIA [id number] [place] [address] CT CHEST W IVCONon 3 CT CHEST W IVCON * * *Final Report* * * DATE OF EXAM: Jan 24 2023 1:35PM [facility] 0539 - CT CHEST W IVCON [...] study. The upper abdomen is otherwise unremarkable. Batch Operator (topogram) images: No additional findings. IMPRESSION: 1. [...] any questions regarding this interpretation, please call [phone]. If you are unable to reach us at the number above, please feel free to contact [facility] at [phone]. [id number] N Normal [facility] PET/CT SKULL-THIGH SUBQon 01-24-2023 NM PET/CT SKULL-THIGH [...] any questions regarding this interpretation, please call [phone]. If you are unable to reach us at the number above, please feel free to contact [facility] eRadiology at [phone]. [id number] N Normal [facility] CNPNon 01-13-2023 CNPN Telephone (THORMN) JARET GRAJEDA ([id number]) 1960 M Date Time Provider Department 01/13/23 DELFINA BLUE During your visit today, we recorded the following information about you: Jeremiah Gibbs 01/13/2023 3:37 PM Signed Received OSH Hem/Onc office notes 01/04/23 fron [facility] Cancer [facility] Record scanned in Epic Jeremiah Gibbs, citrix administrator Socrates Pastor, CE 01/14/2023 2:29 PM Addendum pt to follow with rad onc, Dr Roberto cruz, see note from local oncology dr ROSARIO Mckay As of Date: 01/13/2023 (No Known Allergies) Date Reviewed: 12/09/2022 Reviewed by: Shilpa Pop Ethyl Blender - Fully Assessed Reason for Visit: Received Outside Medical Records [[id number]] Prescriptions as of 01/14/2023 - metoprolol succinate ER (TOPROL XL) 50 mg 24 hr tablet Take 1 tablet by mouth every 12 hours. Problem List As Of Date: 01/13/2023 (None) Encounter Status:Closed by JEREMIAH GIBBS [facility]23 [facility] Tele[facility] (NCCAP) JARET GRAJEDA ([id number]) 1960 M Date Time Provider Department 01/05/23 DON MEJIA NCCJANE During your visit today, we recorded the [...] Allergies) Date Reviewed: 12/09/2022 Reviewed by: Shilpa Pop Ethyl Blender - Fully Assessed Reason for Visit: Appointment Confirmation [[id number]] Prescriptions as of 01/06/2023 - iv contrast [...] Encounter Status:Closed by CATHY JOVEL on 01/06/23 [facility] Annalisa 12-09-2022 CNPN Telephone (THORMN) JARET GRAJEDA ([id number]) 1960 M Date Time Provider Department 12/09/22 [...] Date Reviewed: 12/09/2022 Reviewed by: Shilpa Pop, Ethyl Blender - Fully Assessed Reason for Visit: Appointment Rescheduled [1024] Prescriptions as of 12/09/2022 - metoprolol succinate ER (TOPROL XL) 50 mg 24 hr tablet Take 1 tablet by mouth every 12 hours. Problem List As Of Date: 12/09/2022 (None) Encounter Status:Closed by SOLEDAD DUMONT on 12/09/22 [facility] NM CARDIAC PERF STRESS/PHARM on 12-09-2022 NM CARDIAC PERF STRESS/PHARM * * *Final Report* * * DATE OF EXAM: Dec 09 2022 11:57AM Vashti 0006 - NM CARDIAC PERF STRESS/PHARM / PROCEDURE REASON: multiple diagnoses * * * * Physician Interpretation * * * * Stress Loan Officer Report: [facility] ALEXANDRO-2 Date of service: 12/09/2022 10:08:36 AM Supervising [...] later. See administered radiotracer and doses below. [facility] Date of service: 12/09/2022 10:08:36 AM Ordering [...] * * Final * * * -------- DC CTAC Report: [facility] Date of service: 12/09/2022 10:08:36 AM CTAC interpreting physician: Eagle Patel MD PATIENT: Name: MR. JARET GRAJEDA Age: 62 years Gender: M 1. Incidental Findings from limited non-diagnostic CTAC: - Coronary calcifications visualized. * * * Final * * * -------- Stress ECG Report: [facility] Date of service: 12/09/2022 10:08:36 AM Ordering physician: DELFINA BLUE cardiology clinical nurse specialist: Shilpa Pop Bisque Grader: Elida Mckeon Interpreting physician: Eagle Patel MD [...] 148/86 mmHg. The double product achieved was [id number]. Medications: Last Used METOPROLOL 7 Hours Resting ECG: Normal Sinus Rhythm Symptoms at rest: No symptoms Pharamco (more content not included)... Normal [facility] CNPNon 10-18-2022 CNPN Telephone (RADTSA) JARET GRAJEDA ([id number]) 1960 M Date Time Provider Department 10/18/22 DON MEJIA RADTSA During your visit today, [...] agreement with waiting to reschedule. CE Charles Saju MD 10/18/2022 12:40 PM Signed Thanks! Don Ferguson Purnima Orellana 10/18/2022 12:57 PM Signed Cxed appointment let [...] to get this scheduled. CE Charles Angela, RN 11/01/2022 2:46 PM Signed Call again placed to pt to get update. Voicemail was left requesting pt to call with update. Dr Blue/Team- is there any update from your team regarding the scheduling of patient's stress test/cardiac clearance? Thank you! 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 DEPARTMENT OF THORACIC AND CARDIOVASCULAR SURGERY NAME: JARET GRAJEDA CLINIC #: [id number] DATE: 10/14/2022 AGE: 62 PHYSICIAN: Delfina Blue [...] very near future. Delfina Blue M.D., Ph.D. SM:[id number] /[id number] Fernando Noel MD 10/15/2022 4:54 PM Signed [facility] THORAC[facility] SURGERY OUTPATIENT CONSULT NOTE Jaret Grajeda [id number] Requesting Provider: Wade Jones Thoracic Physician: Delfina Blue MD Chief Complaint: lung cancer Impression: Jaret Grajeda is a 62 yoM current heavy 45PYS with newly diagnosed [id number] TRISTEN adenoCA. EBUS with negative level 7 [...] Date A (more content not included)... Normal [facility] SIX MINUTE WALKon 10-14-2022 [facility] CNOVon 09-27-2022 CNOV Office Visit (RADTSA ) JARET GRAJEDA ([id number]) 1960 M Date Time Provider Department 09/27/22 9:00 AM DON MEJIA During your visit today, we recorded the following information about you: Temperature Pulse Respiration Blood pressure 97.4 degrees 78/minute 18/minute 194/118 Weight Height 74.2 kg 1.753 m Don Mejia MD 10/06/2022 6:08 AM Addendum Radiation Oncology - New Patient/Consult Note PATIENT NAME: Jaret Grajeda PATIENT REQUESTING PHYSICIAN: Jennifer Garber MD DIAGNOSIS: Stage IB, [id number], non-small cell lung cancer (adenocarcinoma) arising from the left upper lobe of the lung. PATIENT IDENTIFICATION: This patient was seen in the Department of Radiation Oncology at the [facility] with Don Mejia MD. He was accompanied today by his family. Final recommendations will be communicated back to the requesting physician by way of the shared medical record, or letter to requesting physician via US mail. HISTORY OF PRESENT ILLNESS: Mr. Grajeda is a 62-year-old gentleman from [place], [place] and heavy tobacco user who was [...] has 1 child, and lives in the [place], [place] area. 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 He reports an approximate 83-ktuz-vady history of smoking and currently smokes a [...] Negative for malignanc (more content not included)... Normal [facility] CNPNon 09-27-2022 CNPN Telephone (NCCAP) JARET GRAJEDA ([id number]) 1960 M Date Time Provider Department 09/27/22 [facility] During your visit today, we recorded the [...] Encounter Status:Closed by PURNIMA HAYES on 09/27/22 [facility] CNPN Telephone (RADTSA) JARET GRAJEDA ([id number]) 1960 Date Time Provider Department 09/17/22 DON MEJIA [...] supposed to follow-up with Dr. Candelaria in [place] for bronchoscopy/EBUS for pathologic staging of his mediastinum which will be important for treatment decision-making. Thanks! Lili Brady LPN 09/17/2022 1:28 PM Signed 09/06/22 EBUS results are available in Care Everywhere. Thanks MAURI Gao Tiffany 09/21/2022 3:00 PM Signed Called patient again to schedule tiffany no answer Fergusonaixa Orellana Purnima 09/21/2022 3:12 PM Signed Patient called back he is scheduled for Tuesday per his request. Allergies As of Date: 09/17/2022 (Not on File) Date Reviewed: Never Reviewed Reason for Visit: Appointment [186] Problem List As Of Date: 09/17/2022 (None) Encounter Status:Closed by LILI MARTINEZ on 09/23/22 [facility] JAR[facility]RA[facility] ([id number]) 1960 M Date Time Provider Department 09/16/22 DELFINA BLUE During your visit today, we recorded the following information about you: Soledad Dumont 09/16/2022 2:18 PM Signed Left date and time of apt for patient. Sent via [employer] - [phone]. Th, 10/14/2022 at [place] PF at 12:30pm/1pm/1:15pm , 10/14/2022 at [facility] Consult w/ Dr. Blue at 3:40pm Allergies As of Date: 09/16/2022 (Not on File) Date Reviewed: Never Reviewed Reason for Visit: Appointment Confirmation [[id number]] Problem List As Of Date: 09/16/2022 (None) Encounter Status:Closed by SOLEDAD DUMONT on 09/16/22 [facility] 09-09-2022 CNPN Telephone (RADCarevature Medical North AmericaA) JARET GRAJEDA ([id number]) 1960 M Date Time Provider Department 09/09/22 [...] Encounter Status:Closed by LILI MARTINEZ on 09/13/22 [facility] Attestation signed by Chinyere Candelaria MD at 09/06/2022 12:24 PM Re-explained the procedure to the patient along with the associated risk of pneumothorax, bleeding, hypoxia, and respiratory failure. Patient is agreeable and will proceed with the scheduled bronchoscopy and EBUS TBNA Chinyere Candelaria MD Interventional Pulmonary Medicine Pulmonary and Critical Care Medicine [facility] Physicians H&P reviewed. The patient was [...] deficits Skin: Warm, dry, no rashes Normal [facility] NON-BAR TACKER CYTOLOGY - CELLULAR EXAMon 09-06-2022 LAB AP CASE REPORT Normal [facility] Comment on above: Result Comment: Non- gynecologic Cytology Case: [id number] Authorizing Provider: Chinyere Candelaria MD Collected: 09/06/2022 1316 Ordering Location: [facility] Main Operating Room Received: 09/06/2022 1358 Pathologist: Sari Coyne MD Specimens: A) - Lymph Node Station 2L, 2L B) - Lymph Node Station 7, station 7 Performed By: #### L AB13 #### [facility] ([facility]) [address] [place] [address] LAB AP CLINICAL INFORMATION Order Diagnoses Normal [facility] Comment on above: Result Comment: C34. 92 - Primary adenocarcinoma of left lung (CMS/HCC) [ICD-10-CM] Performed By: #### L AB13 #### [facility] ([facility]) [address] [place] [address] LAB AP GROSS DESCRIPTION [facility] Comment on above: Result Comment: A) 3 air-dried slides, 3 alcohol-fixed slides, 30 mL CytoLyt with clear colorless fluid B) 2 air-dried slides, 2 alcohol-fixed slides, 30 mL CytoLyt with pink cloudy fluid Performed By: #### L AB13 #### [facility] ([facility]) [address] [place] [address] LAB AP INTRAOPERATIVE CONSULTATION [facility] Comment on above: Result Comment: A. [...] #### [facility] ([facility]) [address] [place] [address] LAB AP REPORT FINAL DIAGNOSIS NARRATIVE Normal [facility] Comment on above: Result Comment: A. L ymph node, 2L, fine needle aspiration: - Non-diagnostic due to scant cellularity - No cellular evidence of lymph node B. Lymph node, station 7, fine needle aspiration: - Negative for malignancy - Cellular evidence of lymph node Performed By: #### L AB13 #### [facility] ([facility]) [address] [place] [address] POCT GLUCOSE METER UNSOLICIT ED RESULTSon 09-06-2022 Glucose [Mass/Vol] 133 mg/dL High 70-105 [facility] Comment on above: Order Comment: Waive d Testing in the ED is performed under the ED CLIA certificate #[id number]. Result Comment: [email or web address] Performed By: #### L [id number] #### [facility] ([facility]) [address] [facility] [place] [address] [id number] 08-30-2022 [id number] Nothing to Eat or Drink, including Candy, [...] THE FOLLOWING ARE NOT AVAILABLE: An adult wheelchair driver over the age of 18, that [...] lenses. Do not wear perfume, make-up, nail taiwanese, or lotions on the day of your [...] need to make any changes, please call [phone]. Notify your surgeon if you develop any illness such as a cold, cough, fever, sore throat or vomiting between now and your surgery. Thank you for entrusting us with your care. [facility] Surgical Services Team Normal [facility] Prep for Procedureon 023 Prep for Procedure [id number] Brigette Grajeda 1960 M Date Provider Department Center 08/30/2022 CHINYERE AGUIRRE [facility] GEORGEStephani Family History Family history unknown: Yes Normal [facility] CNPNon 08-26-2022 CNPN Telephone (THORMN) NICCIJARET ([id number]) 1960 M Date Time Provider Department 08/26/22 DELFINA BLUE During your visit today, we recorded the following information about you: Jeremiah Gibbs 09/01/2022 10:10 AM Addendum LOCAL PATIENT Received Fax from Dr. Wade Raygoza Nicci is being referred to Delfina Blue MD, PhD or Zbigniew Wilkinson M.D. by Wade Jones Sr, MD [facility] [address] Patient diagnosis/Reason for consult: Lung Cancer Referral triage process explained: Yes Patient will receive a call from Thoracic NPM after triage review with surgeon to discuss any additional testing and/or consults that will be scheduled. Pt will then receive a call from our scheduling office for scheduling. Please call pt at [phone]. Patient was informed consultation could be at [place] or Main [place]: No Patient Registration: Registration complete/updated: Yes Insurance card(s) scanned in [facility] with in the past year: Yes: Date: 08/26/22 Pt's MyChart is Pending. Ok to communicate to pt via Conversocialhart not asked Medical Records: Records in [facility] (internal CC records): No Imaging in Epic (internal CC records): No Care Everywhere - queried yes, downloaded Yes Linked Outside Organizations (list):[facility] Records Requested: yes Date: August 26, 2022 Outside Hospital(s) requested records from: Dr. Wade Jones, Dr. Garber Received: Yes Uploaded: Yes. Waiting on additional records: No. Missing (list): n/a OSH Pathology Slides Requested: no Date: N/A Outside Hospital(s) slides requested from: n/a OS Radiology Imaging Requested: yes Date: August 26, 2022 Outside Hospital(s) requested imaging from: [facility]. Imaging will be received via Electronic Transfer Received: Yes Imaging uploaded: Yes Waiting on additional: No. Missing (list): n/a Additional providers added to Care Teams: Yes Additional Notes/Comments: n/a Enct routed to: Thoracic NPM for Triage Jeremiah Gibbs, citrix administrator Socrates Pastor RN 09/09/2022 3:55 PM Signed Thoracic Surgery Consultation - review of records for appointment scheduling Received medical records from the office of Wade Jones Sr, MD [address] [facility] [address] Patient is being referred to Unspecified/First Available [...] Cellular evidence of lymph node Procedures: 09/06 [facility] 08/13/22 ct guided bx Imaging . PET/CT: [...] min walk Socrates Pastor RN Referring Provider: OCCOQUAN , WADE WOLF [[id number]] Allergies As of Date: 08/26/2022 (Not on File) Date Reviewed: Never Reviewed Reason for Visit: External Referrals/resources [909] Consult [173] Primary Visit Diagnosis:Malignant neoplasm of left lung, unspecified part of lung (HCC) [C34.92] Order(s):SPIROMETRY BASELINE ONLY [9322169] Order #: [id number]: 1 FUTURE LUNG DIFFUSION CAPACITY (DLCO) [2135128] Order #: [id number]: 1 FUTURE SIX MINUTE WALK [5435212] Order #: [id number]: 1 FUTURE Problem List As Of Date: 08/26/2022 (None) Encounter Status:Closed by SOCRATES PASTOR on 09/09/22 [facility] CNPPatti 08-25-2022 CNPN Telephone (NCCAP) JARET GRAJEDA ([id number]) 1960 M Date Time Provider Department 08/25/22 DON MEJIA NCCAP During your visit today, we recorded the following information about you: Purnima Hayes 08/25/2022 8:24 AM Signed Called patient X 2 to schedule appointments for here, left messages both days Allergies As of Date: 08/25/2022 (Not on File) Date Reviewed: Never Reviewed Reason for Visit: Appointment Confirmation [[id number]] Problem List As Of Date: 08/25/2022 (None) Encounter Status:Closed by PURNIMA HAYES on 08/25/22 [facility] HPon 08-19-2022 HP - Attestation signed by Chinyere Candelaria [...] Age: 62 y.o. : 1960 Account No.: [id number] Referring physician: Chief complaint: Lung mass, newly [...] by mouth in the morning. 08/01/22 Historical ProviderMD magnesium oxide (Mag-Ox) 400 mg (241.3 mg [...] by mouth in the morning. 09/22/21 Historical ProviderMD Social history: reports that he has been [...] BICARB, CO2, CO2, PH, PH, PHART, PHVEN, TMO9HNX, ERB1EDP, RKT3EVV, PO2POC, PO2ART, PO2VEN, KRT4MIJ, QQO8TTT Radiology: No Chest X-ray results found for [...] was initiated by the patient and conducted hqi-[id number]-face with use of audio-only real time telephone communication between patient and provider for a virtual visit. Verbal consent to provide and bill for this service was obtained No signature was obtained due to the COVID-19 pandemic. Micheal Feliz MD PCCM Fellow [facility] Office Visiton 08-19-2022 Follow-up visit [id number] Brigette Grajeda 1960 M [facility] Provider Department Center 08/19/2022 383-CHINYERE CANDELARIA ONC 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 CT of chest done 07-27-22. Films in EPIC Normal [facility] Orders Onlyon 08-18-2022 Orders Only [id number] Erma Grajedapatrick alcazar 1960 Date Provider Department Center 08/18/2022 Britany1-FRANCA STONE ONC [facility] Family History Family history unknown: Yes [facility] CARDIAC ARIANE ADMITon 022 CK [Catalytic activity/Vol] 140 U/L Normal 39-308 [facility] Comment on above: Performed By: #### E TH, CMP, CMADM ####[facility] [address] [place], [place] [address]ZzKeshawn Uribe CK.MB [Mass/Vol] 2.29 ng/mL Normal <=3.60 [facility] Comment on above: Performed By: #### E TH, CMP, CMADM ####[facility] [address] [place] [address]DrKeshawn Uribe HSTROP 9.7 pg/mL Normal 4.0-76.1 [facility] Comment on above: Result Comment: CUT- OFF POINTS HAVE BEEN ESTABLISHED BASED ON THE FOURTH UNIVERSAL DEFINITIONS OF MYOCARDIAL INFARCTION. THE UPPER REFERENCE LIMIT (URL) OF TROPONIN, DEFINED THE 99TH PERCENTILE OF cTnI DISTRIBUTION IN A REFERENCE POPULATION, HAS BEEN CONFIRMED THE DECISION THRESHOLD FOR VA DIAGNOSIS. Performed By: #### E TH, CMP, CMADM ####[facility] [address] [place] [address]Dr. Dalton Uribe ARASH 43 ng/mL Normal 16-96 [facility] Comment on above: Performed By: #### E TH, CMP, CMADM ####[facility] [address] [place] [address]Dr. Dalton Uribe CBC AUTO DIFFon 06-19-2021 BASO # 0.0 103/ul Normal 0.0-0.1 [facility] Comment on above: Performed By: #### C BC #### [facility] Laboratory [address] [place] [address] Dr. Dalton Uribe Basophils/100 WBC (Bld) 0.3 % Normal 0.2-2.0 [facility] Comment on above: Performed By: #### C BC #### [facility] [address] [place] [address] Dr. Dalton Uribe EO # 0.0 103/ul Normal 0.0-0.7 [facility] Comment on above: Performed By: #### C BC #### [facility] [address] [place] [address] [address] Dalton Uribe Eosinophils/100 WBC (Bld) 0.1 % Critically low 0.9-7.0 [facility] Comment on above: Performed By: #### C BC #### [facility] [address] [place] [address] Dr. Dalton Uribe Erythrocyte distribution width (RBC) [Ratio] 12.5 % Normal 11.0-15.0 [facility] Comment on above: Performed By: #### C BC #### [facility] [address] [place] [address] Dr. Dalton Uribe Hematocrit (Bld) [Volume fraction] 39.5 % Critically low 42.0-54.0 [facility] Comment on above: Performed By: #### C BC #### [facility] [address] [place] [address] Dr. Dalton Uribe Hemoglobin (Bld) [Mass/Vol] 13.9 g/dL Critically low 14.0-18.0 [facility] Comment on above: Performed By: #### C BC #### [facility] [address] [place] [address] Dr. Dalton Uribe IG # 0.03 10e3/ul Normal 0.00-0.03 [facility] Comment on above: Performed By: #### C BC #### [facility] [address] [place] [address] Dr. Dalton Uribe IG % 0.3 % Normal 0.0-0.5 [facility] Comment on above: Performed By: #### C BC #### [facility] [address] [place] [address] Dr. Dalton Uribe LYMPH # 1.1 103/ul Critically low 1.2-3.8 [facility] Comment on above: Performed By: #### C BC #### [facility] [address] [place] [address] Dr. Dalton Uribe Lymphocytes/100 WBC (Bld) 10.1 % Critically low 20.5-60.0 [facility] Comment on above: Performed By: #### C BC #### [facility] [address] [place] [address] Dr. Dalton Uribe MANUAL DIFF REQ NO Normal [facility] Comment on above: Performed By: #### C BC #### [facility] [address] [place] [address] Dr. Dalton Uribe MCH (RBC) [Entitic mass] 33.3 pg Normal 25.9-34.0 [facility] Comment on above: Performed By: #### C BC #### [facility] [address] [place] [address] Dr. Dalton Uribe MCHC (RBC) [Mass/Vol] 35.2 g/dL Normal 29.9-35.2 [facility] Comment on above: Performed By: #### C BC #### [facility] [address] [place] [address] [address] Dalton Uribe MCV (RBC) [Entitic vol] 94.7 fL Critically high 80.0-94.0 [facility] Comment on above: Performed By: #### C BC #### [facility] [address] [place] [address] [address] Dalton Uribe MONO # 1.0 103/ul Critically high 0.3-0.8 [facility] Comment on above: Performed By: #### C BC #### [facility] [address] [place] [address] [address] Dalton Uribe Monocytes/100 WBC (Bld) 9.1 % Normal 1.7-12.0 [facility] Comment on above: Performed By: #### C BC #### [facility] [address] [place] [address] [address] Dalton Uribe NEUT # 8.7 103/ul Critically high 1.4-6.5 [facility] Comment on above: Performed By: #### C BC #### [facility] [address] [place] [address] Dr. Dalton Uribe Neutrophils/100 WBC (Bld) 80.1 % Critically high 43.0-75.0 [facility] Comment on above: Performed By: #### C BC #### [facility] [address] [place] [address] [address] Dalton Uribe Platelet mean volume (Bld) [Entitic vol] 10.0 fL Normal 9.5-13.5 [facility] Comment on above: Performed By: #### C BC #### [facility] [address] [place] [address] [address] Dalton Uribe PLT 133 103/ul Critically low 150-[address] [facility] Comment on above: Result Comment: few giant plts and large plts seen Performed By: #### C BC #### [facility] [address] [place], [place] [address] Dr. Dalton Uribe RBC 4.17 106/ul Critically low 4.70-6.10 [facility] Comment on above: Performed By: #### C BC #### [facility] [address] [place], [place] [address] Dr. Dalton Uribe WBC 10.9 103/ul Normal 4.0-11.0 [facility] Comment on above: Performed By: #### C BC #### [facility] [address] [place], [place] [address] HEAD WO CONon [...] HUBER STACY Date: 2021-06-19 12:16 Normal [facility] ETHANOL (BLD ALC)on 06-20-19 22 ALC NOTE NOTE: 80 mg/dl is th e legal limit for a blood alcohol level Normal [facility] Comment on above: Performed By: #### E TH, DEREK, CARENDM ####[facility] [address] [place] [address]Dr. Dalton Uribe Ethanol [Mass/Vol] mg/dL Normal [facility] Comment on above: Performed By: #### E TH, CMP, CMADM ####[facility] [address] [place], [place] [address]Dr. Dalton Uribe PROF 14(COMP METB)on 022 Albumin [Mass/Vol] 3.8 g/dL Normal 3.4-5.0 [facility] Comment on above: Performed By: #### E TH, CMP, CMADM ####[facility] [address] [place] [address]Dr. Dalton Uribe Albumin/Globulin [Mass ratio] 1.0 {ratio} Normal [facility] Comment on above: Performed By: #### E TH, CMP, CMADM ####[facility] [address] [place] [address]Dr. Dalton Uribe ALP [Catalytic activity/Vol] 88 U/L Normal 46-116 [facility] Comment on above: Performed By: #### E TH, CMP, CMADM ####[facility] [address] [place] [address]Dr. Dalton Uribe ALT [Catalytic activity/Vol] 64 U/L Critically high 16-63 [facility] Comment on above: Performed By: #### E TH, CMP, CMADM ####[facility] [address] [place] [address]Dr. Dalton Uribe Anion gap [Moles/Vol] 16.0 mmol/L Normal [facility] Comment on above: Performed By: #### E TH, CMP, CMADM ####[facility] [address] [place] [address]Dr. Dalton Uribe AST [Catalytic activity/Vol] 65 U/L Critically high 15-37 [facility] Comment on above: Performed By: #### E TH, CMP, CMADM ####[facility] [address] [place] [address]Dr. Dalton Uribe Bilirubin [Mass/Vol] 1.3 mg/dL Critically high 0.2-1.0 The [facility] Comment on above: Performed By: #### E TH, CMP, CMADM ####[facility] [address] [place] [address]Dr. Dalton Uribe Calcium [Mass/Vol] 9.1 mg/dL Normal 8.5-10.1 [facility] Comment on above: Performed By: #### E TH, CMP, CMADM ####[facility] [address] [place] [address]Dr. Dalton Uribe Chloride [Moles/Vol] 92 mmol/L Critically low 98-107 [facility] Comment on above: Performed By: #### E TH, CMP, CMADM ####[facility] [address] [place] [address]Dr. Dalton Uribe CO2 [Moles/Vol] 25.4 mmol/L Normal 21.0-32.0 [facility] Comment on above: Performed By: #### E , CMP, CMADM ####[facility] [address] [place] [address]Dr. Dalton Uribe Creatinine [Mass/Vol] 0.85 mg/dL Normal 0.70-1.30 [facility] Comment on above: Performed By: #### E , CMP, CMADM ####[facility] [address] [place], [place] [address]Dr. Dalton Uribe EGFR-AF ECUADOREAN >60 Normal >=60 [facility] Comment on above: Performed By: #### E , CMP, CMADM ####[facility] [address] [place], [place] [address]Dr. Dalton Uribe EGFR-NON AF ECUADOREAN >60 Normal >=60 [facility] Comment on above: Performed By: #### E , CMP, CMADM ####[facility] [address] [place] [address]Dr. Dalton Uribe Globulin (S) [Mass/Vol] 3.7 g/dL Normal [facility] Comment on above: Performed By: #### E , CMP, CMADM ####[facility] [address] [place] [address]Dr. Dalton Uribe Glucose [Mass/Vol] 106 mg/dL Normal 74-106 [facility] Comment on above: Performed By: #### E TH, CMP, CMADM ####[facility] [address] [place] [id number]. Dalton Uribe Potassium [Moles/Vol] 3.4 mmol/L Critically low 3.5-5.1 [facility] Comment on above: Performed By: #### E TH, CMP, CMADM ####[facility] [address] [place] [address]Dr. Dalton Uribe Protein [Mass/Vol] 7.5 g/dL Normal 6.4-8.2 [facility] Comment on above: Performed By: #### E TH, CMP, CMADM ####[facility] [address] [place] [address]Dr. Dalton Uribe Sodium [Moles/Vol] 130 mmol/L Critically low 136-145 [facility] Comment on above: Performed By: #### E TH, CMP, CMADM ####[facility] [address]up[address] [place] [address]Dr. Dalton Uribe Urea nitrogen [Mass/Vol] 10.0 mg/dL Normal 7.0-18.0 [facility] Comment on above: Performed By: #### E TH, CMP, CMADM ####[facility] [address] [place] [address]Dr. Dalton Uribe Urea nitrogen/Creatinine [Mass ratio] 11.8 mg/mg Normal [facility] Comment on above: Performed By: #### E TH, CMP, CMADM ####[facility] [address] [place] [address]Dr. Dalton Uribe XR CHEST 1 Von 06-19-2021 [...] by: ANNE GUADALUPE Date: 2021-06-19 12:27 Normal [facility] CBC AUTO DIFFon 06-18-2021 BASO # 0.0 103/ul Normal 0.0-0.1 [facility] Comment on above: Performed By: #### C BC ####[facility] [address]qbx[address] [place] [address]Dr. Dalton Uribe Basophils/100 WBC (Bld) 0.3 % Normal 0.2-2.0 [facility] Comment on above: Performed By: #### C BC ####[facility] [address] [place], [place] [address]Dr. Dalton Uribe EO # 0.0 103/ul Normal 0.0-0.7 [facility] Comment on above: Performed By: #### C BC ####[facility] [address] [place], [place] [address]Dr. Dalton Uribe Eosinophils/100 WBC (Bld) 0.1 % Critically low 0.9-7.0 The [facility] Comment on above: Performed By: #### C BC ####[facility] [address] [place], [place] [address]Dr. Dalton Uribe Erythrocyte distribution width (RBC) [Ratio] 12.7 % Normal 11.0-15.0 [facility] Comment on above: Performed By: #### C BC ####[facility] [address] [place], [place] [address]Dr. Dalton Uribe Hematocrit (Bld) [Volume fraction] 42.5 % Normal 42.0-54.0 [facility] Comment on above: Performed By: #### C BC ####[facility] Y[address] [place], [place] [address]Dr. Dalton Uribe Hemoglobin (Bld) [Mass/Vol] 14.6 g/dL Normal 14.0-18.0 [facility] Comment on above: Performed By: #### C BC ####[facility] [address] [place], [place] [address]Dr. Dalton Uribe IG # 0.04 10e3/ul Critically high 0.00-0.03 [facility] Comment on above: Performed By: #### C BC ####[facility] [address] [place] [address]Dr. Dalton Uribe IG % 0.4 % Normal 0.0-0.5 [facility] Comment on above: Performed By: #### C BC ####[facility] [address]ufcxomx[address] [place] [address]Dr. Dalton Uribe LYMPH # 1.1 103/ul Critically low 1.2-3.[address] [facility] Comment on above: Performed By: #### C BC ####[facility] [address]qcwt[address] [place] [address]Dr. Dalton Uribe Lymphocytes/100 WBC (Bld) 10.6 % Critically low 20.5-60.0 [facility] Comment on above: Performed By: #### C BC ####[facility] [address] [place] [address]Dr. Dalton Uribe MANUAL DIFF REQ NO Normal [facility] Comment on above: Performed By: #### C BC ####[facility] [address] [place] [address]Dr. Dalton Uribe MCH (RBC) [Entitic mass] 32.7 pg Normal 25.9-34.0 [facility] Comment on above: Performed By: #### C BC ####[facility] [address] [place], [place] [address]Dr. Dalton Uribe MCHC (RBC) [Mass/Vol] 34.4 g/dL Normal 29.9-35.2 [facility] Comment on above: Performed By: #### C BC ####[facility] [address] [place] [address]Dr. Dalton Urbie MCV (RBC) [Entitic vol] 95.3 fL Critically high 80.0-94.0 [facility] Comment on above: Performed By: #### C BC ####[facility] [address]cp[address] [place], [place] [address]Dr. Dalton Uribe MONO # 1.0 103/ul Critically high 0.3-0.8 [facility] Comment on above: Performed By: #### C BC ####[facility] [address] [place], [place] [address]Dr. Dalton Uribe Monocytes/100 WBC (Bld) 9.9 % Normal 1.7-12.0 [facility] Comment on above: Performed By: #### C BC ####[facility] [address] [place] [address]Dr. Dalton Uribe NEUT # 8.1 103/ul Critically high 1.4-6.5 [facility] Comment on above: Performed By: #### C BC ####[facility] [address] [place] [address]Dr. Dalton Uribe Neutrophils/100 WBC (Bld) 78.7 % Critically high 43.0-75.0 [facility] Comment on above: Performed By: #### C BC ####[facility] [address]up[address] [place] [address]Dr. Dalton Uribe Platelet mean volume (Bld) [Entitic vol] 9.6 fL Normal 9.5-13.5 [facility] Comment on above: Performed By: #### C BC ####[facility] [address] [place] [address]Dr. Dalton Uribe PLT 152 103/ul Normal 150-450 [facility] Comment on above: Performed By: #### C BC ####[facility] Gjt[address]xzw[address] [place] [address]Dr. Dalton Uribe RBC 4.46 106/ul Critically low 4.70-6.10 [facility] Comment on above: Performed By: #### C BC ####[facility] [address] [place] [address]Dr. Dalton Uribe WBC 10.2 103/ul Normal 4.0-11.0 [facility] Comment on above: Performed By: #### C BC ####[facility] H[address]qkm[address]uc[address] [place], [place] [address]Dr. Dalton Rony PROF 14(COMP METB)on 022 Albumin [Mass/Vol] 4.0 g/dL Normal 3.4-5.0 [facility] Comment on above: Performed By: #### T SH, T4, CMP #### [facility] [address] [address] [address] Dalton Uribe Albumin/Globulin [Mass ratio] 1.1 {ratio} Normal [facility] Comment on above: Performed By: #### T SH, T4, CMP #### [facility] [address] [address] [address] Dalton Uribe ALP [Catalytic activity/Vol] 88 U/L Normal 46-116 [facility] Comment on above: Performed By: #### T SH, T4, CMP #### [facility] [address] [address] [address] Dalton Uribe ALT [Catalytic activity/Vol] 74 U/L Critically high 16-63 [facility] Comment on above: Performed By: #### T SH, T4, CMP #### [facility] [address] [address] [address] Dalton Uribe Anion gap [Moles/Vol] 17.1 mmol/L Normal [facility] Comment on above: Performed By: #### T SH, T4, CMP #### [facility] [address] [address] [address] Dalton Uribe AST [Catalytic activity/Vol] 73 U/L Critically high 15-37 [facility] Comment on above: Performed By: #### T SH, T4, CMP #### [facility] [address] [address] [address] Dalton Uribe Bilirubin [Mass/Vol] 1.8 mg/dL Critically high 0.2-1.0 [facility] Comment on above: Performed By: #### T SH, T4, CMP #### [facility] [address] [address] [address] Dalton Uribe Calcium [Mass/Vol] 9.1 mg/dL Normal 8.5-10.1 [facility] Comment on above: Performed By: #### T SH, T4, CMP #### [facility] [address] [address] [address] Dalton Uribe Chloride [Moles/Vol] 95 mmol/L Critically low 98-107 [facility] Comment on above: Performed By: #### T SH, T4, CMP #### [facility] [address] [address] [address] Dalton Uribe CO2 [Moles/Vol] 26.5 mmol/L Normal 21.0-32.0 [facility] Comment on above: Performed By: #### T SH, T4, CMP #### [facility] [address] [address] [address] Dalton Uribe Creatinine [Mass/Vol] 0.88 mg/dL Normal 0.70-1.30 [facility] Comment on above: Performed By: #### T SH, T4, CMP #### [facility] [address] [address] [address] Dalton Uribe EGFR-AF ECUADOREAN >60 Normal >=60 [facility] Comment on above: Performed By: #### T SH, T4, CMP #### [facility] [address] [address] [address] Dalton Uribe EGFR-NON AF ECUADOREAN >60 Normal >=60 [facility] Comment on above: Performed By: #### T SH, T4, CMP #### [facility] [address] [address] [address] Dalton Uribe Globulin (S) [Mass/Vol] 3.8 g/dL Normal [facility] Comment on above: Performed By: #### T SH, T4, CMP #### [facility] [address] [address] [address] Dalton Uribe Glucose [Mass/Vol] 115 mg/dL Critically high 74-106 [facility] Comment on above: Performed By: #### T SH, T4, CMP #### [facility] [address] [address] [address] Dalton Uribe Potassium [Moles/Vol] 3.6 mmol/L Normal 3.5-5.1 [facility] Comment on above: Performed By: #### T SH, T4, CMP #### [facility] [address] [address] [address] Dalton Uribe Protein [Mass/Vol] 7.8 g/dL Normal 6.4-8.2 [facility] Comment on above: Performed By: #### T SH, T4, CMP #### [facility] [address] [address] [address] Dalton Uribe Sodium [Moles/Vol] 135 mmol/L Critically low 136-145 [facility] Comment on above: Performed By: #### T SH, T4, CMP #### [facility] [address] [address] [address] Dalton Uribe Urea nitrogen [Mass/Vol] 8.0 mg/dL Normal 7.0-18.0 [facility] Comment on above: Performed By: #### T SH, T4, CMP #### [facility] [address] [place] [address] Dr. Dalton Uribe Urea nitrogen/Creatinine [Mass ratio] 9.1 mg/mg Normal [facility] Comment on above: Performed By: #### T SH, T4, CMP #### [facility] [address] [place] [address] Dr. Dalton Uribe T4on 06-18-2021 T4 [Mass/Vol] 8.10 ug/dL Normal 4.50-12.10 [facility] Comment on above: Performed By: #### T SH, T4, CMP #### [facility] [address] [place] [address] Dr. Dalton Uribe TSHon 06-18-2021 TSH 1.856 uIU/mL Normal 0.358-3.740 [facility] Comment on above: Performed By: #### T SH, T4, CMP #### [facility] [address] [place] [address] Dr. Dalton Uribe TSH RANGE SEE BELOW Normal [facility] Comment on above: Result Comment: <0.3 4 UIU/ml HYPERTHYROID 0.34-5.60 UIU/ml EUTHYROID >5.60 UIU/ml HYPOTHYROID Performed By: #### T SH, T4, CMP #### [facility] [address] [place] [address] Dr. Dalton Uribe Social History Date Type Detail Facility Start: 09-27-2022 Tobacco smoking stat us [facility] Smokes tobacco daily [facility] Start: 09-27-2022 Tobacco use and exposure Smokeless t obacco non-user [facility] Start: 09-27-2022 End: 04-08-2023 Alcohol intake Current drinker of alcohol (finding) [facility] Start: 09-27-2022 Alcohol Comment socially [facility] Start: 09-09-2022 End: 10-14-2022 Gender identity Not on file [facility] Start: 09-09-2022 End: 10-14-2022 History of Social function [facility] Start: 1960 Sex Assigned At Not on file [facility] Tobacco smoking stat [facility] Tobacco smoking consumption unknown [facility] National Score (1-10 0), lower number is lower risk 59 [facility] History of tobacco use Cigarette Smoker [facility] Vital Signs Date Time Vital Sign Value Performing Clinician Faci lity 04-08-2023 10:28-0500 Body temperature 97.2 [degF] Don Mejia MD Work Phone: [facility] 04-08-2023 10:28-0500 Body weight 71.8 kg Don Mjeia MD Work Phone: [facility] 04-08-2023 10:28-0500 Diastolic blood pressure 93 mm[Hg] Don Mejia MD Work Phone: [facility] 04-08-2023 10:28-0500 Heart rate 69 /min Don Mejia MD Work Phone: [facility] 04-08-2023 10:28-0500 Respiratory rate 18 /min Don Mejia MD Work Phone: [facility] 04-08-2023 10:28-0500 SaO2% (BldA) [Mass fraction] 99 % Don Mejia MD Work Phone: [facility] 04-08-2023 10:28-0500 Systolic blood pressure 164 mm[Hg] Don Mejia MD Work Phone: [facility] 10-14-2022 12:00-0400 Body height 173 cm [facility] Work Phone: [facility] 10-14-2022 12:00-0400 Body weight 73.48 kg Pultremayne Scott Work Phone: [facility] 09-27-2022 09:00-0400 Body height 175.3 cm Don Mejia MD Work Phone: [facility] 09-27-2022 09:00-0400 Body temperature 97.39 [degF] Don Mejia MD Work Phone: [facility] 09-27-2022 09:00-0400 Body weight 74.21 kg Don Mejia MD Work Phone: [facility] 09-27-2022 09:00-0400 Diastolic blood pressure 118 mm[Hg] Don Mejia MD Work Phone: [facility] 09-27-2022 09:00-0400 Heart rate 78 /min Don Mejia MD Work Phone: [facility] 09-27-2022 09:00-0400 Respiratory rate 18 /min Don Mejia MD Work Phone: [facility] 09-27-2022 09:00-0400 SaO2% (BldA) [Mass fraction] 98 % Don Mejia MD Work Phone: [facility] 09-27-2022 09:00-0400 Systolic blood pressure 194 mm[Hg] Don Mejia MD Work Phone: [facility] Clinical Notes 03-23-2022 to 06-20-2023 Telephone Encounter - Purnima Hayes - 06/20/2023 8:27 AM EDTTelephone Encounter - Purnima Hayes - 06/20/2023 8:27 AM EDTTelephone Encounter - Cathy Jovel RN - 06/16/2023 11:47 AM EDT Note Date & Type Note Facility 06-20-2023 Telephone encounter Note Patient is r/s for both appts [facility] 06-20-2023 Miscellaneous Notes Patient is r/s for both appts I also called patient no answer to check on appointments. Call placed to patient due to him cancelling CT that was to be done prior to follow up for Tuesday. CAlled to check status and LM requesting pt CB to reschedule all appts. Cathy Jovel RN documented in this encounter [facility] 06-17-2023 Telephone encounter Note I also called patient no answer to check on appointments. [facility] 06-16-2023 Telephone encounter Note Call placed to patient due to him cancelling CT that was to be done prior to follow up for Tuesday. CAlled to check status and LM requesting pt CB to reschedule all appts. Cathy Jovel RN [facility] 04-09-2023 Note HNO ID: [id number] Author: DON MEJIA MD Service: ? Author Type: Physician Type: Progress Notes Filed: 04/19/2023 06:01 Note Text: Radiation Oncology - Follow Up Note PATIENT NAME: Jaret Grajeda PATIENT DIAGNOSIS/PATIENT IDENTIFICATION: Mr. Grajeda is a 62-year-old gentleman diagnosed with a Stage IB, [id number], non-small cell lung cancer (adenocarcinoma) arising from [...] result of the inadequacies/shortcomings of said technology/software. [facility] 04-08-2023 History of Present illness Narrative Radiation Oncology - Follow Up Note PATIENT NAME: Jaret Grajeda PATIENT Signed by: Don Mejia MD This document has been created with the use of voice recognition technology. It may contain inaccuracies, misspellings, inaccurate syntax or inappropriate word context that are a result of the inadequacies/shortcomings of said technology/software. documented in this encounter [facility] 03-24-2023 Miscellaneous Notes Call placed to pt to check status. He states he is doing very well. His breathing has maintained it's baseline and he denies any new issues. His energy levels are at his normal. Pt is scheduled for follow up on 04/[address]/FU in June. Cathy Jovel RN documented in this encounter [facility] 03-14-2023 Miscellaneous Notes Patient is scheduled CT chest due in 3 months is pending your approval. Lili Martinez RN documented in this encounter [facility] 03-07-2023 Note HNO ID: [id number] Author: DON MEJIA MD Service: ? Author Type: Physician Type: Progress Notes Filed: 03/17/2023 04:27 Note Text: [facility] Radiation Oncology Department RADIATION ONCOLOGY - SBRT COMPLETION NOTE PATIENT: JADA GRAJEDAOB: 1960 DATES OF TREATMENT: 02/28/23-03/07/23 DIAGNOSIS: Mr. Grajeda is a 62-year-old gentleman diagnosed with a Stage IB, [id number], non-small cell lung cancer (adenocarcinoma) arising from [...] Signed cc: Jennifer Garber MD [address] [address] [address] [facility], [address] [address] [address] [facility] 03-07-2023 History of Present illness Narrative [facility] Radiation Oncology Department RADIATION ONCOLOGY - SBRT COMPLETION NOTE PATIENT: JADA GRAJEDAOB: 1960 DATES OF TREATMENT: 02/28/23-03/07/23 DIAGNOSIS: Mr. Grajeda is a 62-year-old gentleman diagnosed with a Stage IB, [id number], non-small cell lung cancer (adenocarcinoma) arising from [...] Signed cc: Jennifer Garber MD [address] [address] [address] [facility], [address] [address] [address] documented in this encounter [facility] 02-28-2023 Note HNO ID: [id number] Author: DON MEJIA MD Service: ? Author Type: Physician Type: Progress Notes Filed: 03/03/2023 06:54 Note Text: Radiation Oncology - On Treatment Review (OTR) Note PATIENT NAME: Jaret Grajeda PATIENT DIAGNOSIS: Mr. Grajeda is a 62-year-old gentleman diagnosed with a Stage IB, [id number], non-small cell lung cancer (adenocarcinoma) arising from [...] the course of treatment. Don Mejia MD [facility] 02-12-2023 Note HNO ID: [id number] Author: DON MEJIA MD Service: ? Author Type: Physician Type: Progress Notes Filed: 02/22/2023 04:26 Note Text: Radiation Oncology - Follow Up Note PATIENT NAME: Jaret Grajeda PATIENT DIAGNOSIS/PATIENT IDENTIFICATION: Mr. Grajeda is a 62-year-old gentleman diagnosed with Stage IB, [id number], non-small cell lung cancer (adenocarcinoma) arising from [...] cancer. He met with Dr. Blue at [facility] and was recommended a cardiac workup which [...] 62-year-old gentleman diagnosed with a Stage IB, [id number], non-small cell lung cancer (adenocarcinoma) arising from [...] a course of (more content not included)... [facility] 02-11-2023 Note HNO ID: [id number] Author: DON MEJIA MD Service: ? Author Type: Physician Type: Progress Notes Filed: 02/27/2023 15:22 Note Text: JARET GRAJEDA [id number] 02/11/2023 [facility] Department of Radiation Oncology Treatment Planning [...] Electronically Signed Don Mejia M.D. 43:22 PM [facility] 02-11-2023 Note HNO ID: [id number] Author: DON MEJIA MD Service: ? Author Type: Physician Type: Progress Notes Filed: 02/14/2023 22:39 Note Text: JARET GRAJEDA [id number] 02/11/2023 [facility] Department of Radiation Oncology SBRT CT Simulation Diagnosis/Disease:Malignant neoplasm of upper lobe, left bronchus or lungC34.12 Therapist: Mouna Yeboah Consent: Yes Area: LUNG Procedure: A time-out was conducted and recorded by the therapist. Patient simulated at [facility] for SBRT. Compression device in place, and a 4D CT was conducted. Position: SUPINE Thigh Positioner: 0 With Riser 1 Without Riser 1 Abdominal Cuff: SecureVac Cushion Index to Base @ 58 0 T-Vac Cushion Rt. Side Adjust 221 Tri-Vac Cushion Lt. side Adjust 160 [id number] Pump 160 [id number] Wingboard: Head Pad (B or F) :F [...] Electronically Signed DON MEJIA M.D. 0:39 PM [facility] 02-11-2023 History of Present illness Narrative JARET GRAJEDA [id number] 02/11/2023 [facility] Department of Radiation Oncology Treatment Planning [...] M.D. 43:22 PM documented in this encounter [facility] 01-24-2023 Note HNO ID: [id number] Author: Socrates Mills, RT(R) Service: ? Author [...] Intact, Site disposition Discontinued SIGNED BY: RT Sharita(Stephen) January 24, 2023 2:35 PM [facility] 01-24-2023 Note HNO ID: [id number] Author: Socrates Mills RT(R) Service: ? Author [...] 1035 PATIENT DISCHARGED TO: Ambulatory patient, left DC department area. A Diagnostic radioactive procedure has taken place, with no further precautions necessary other than routine body substance precautions. More information regarding radiation safety can be found using this link: [email or web address] SIGNATURE: RT Sharita(R) PATIENT NAME: Jaret Grajeda DATE: January 24, 2023 TIME: 2:34 PM PAGER/CONTACT #: [facility] 01-24-2023 Note HNO ID: [id number] Author: Aide Levy RN Service: ? Author [...] DATE: January 24, 2023 TIME: 10:38 AM [facility] 01-13-2023 Miscellaneous Notes Received OS Hem/Onc office notes 01/04/23 fron [facility] Record scanned in alycia Zayas asst documented in this encounter [facility] 01-06-2023 Miscellaneous Notes Patient called back is aware of appt date and times Called patient again left message to call me back with appt dates and times Called patient to let him know about PET and CT and he also needs a followup with Dr Mejia, nicol answer left message for him to call me back documented in this encounter [facility] 12-23-2022 Note HNO ID: [id number] Author: Delfina Blue MD, PhD Service: Thoracic Surgery Author Type: Physician Type: Progress Notes Filed: 12/29/2022 12:03 PM Note Text: [place] [id number] [place] [facility] NOTE NAME: JARET GRAJEDA [facility] #: [id number] DATE: 12/23/2022 AGE: 62 PHYSICIAN: Delfina Blue [...] He was scheduled for potential simulation in [place] with Dr. Mejia, but somehow has not kept those appointments in check. He did not answer my direct phone call today. It is possible he is being treated out of system for what I suspect it was a stage IB non-small cell lung cancer, but I find no record of that in our system. He does have a progress note from [facility], where he was seen after his recovery from his hospitalization and I think that given that he was compromised recently, radiotherapy should be his treatment. I will attempt to call Dr. Garber and let him know of my thoughts. Delfina Blue M.D., Ph.D. [id number] / [facility] 12-23-2022 Note HNO ID: [id number] Author: Delfina Blue MD, PhD Service: ? Author Type: Physician Type: Progress Notes Filed: 12/23/2022 10:56 AM Note Text: I have read and reviewed the documentation and agree. I wish to add the following findings which have been dictated and will be communicated back to the requesting physician. Delfina Blue MD, PhD [facility] 12-23-2022 Note HNO ID: [id number] Author: Delfina Blue MD, PhD Service: ? Author Type: Physician Type: Progress Notes Filed: 12/23/2022 10:56 AM Note Text: Heart, Vascular AND Thoracic [place] Department of Thoracic Surgery TELEPHONE VISIT (audio [...] visit. Either the patient or their legal technical sales representative has been informed of the [...] manage going forward Delfina Blue MD, PhD [facility] 12-23-2022 History of Present illness Narrative I have read and reviewed the documentation and agree. I wish to add the following findings which have been dictated and will be communicated back to the requesting physician. Delfina Blue MD, PhD Heart, Vascular & Thoracic [place] Department of Thoracic Surgery TELEPHONE VISIT (audio [...] visit. Either the patient or their legal technical sales representative has been informed of the [...] Blue MD, PhD documented in this encounter [facility] 12-09-2022 Note HNO ID: [id number] Author: Britany Lynch RN Service: Radiology Author [...] ALLERGIES: Reviewed and unchanged MEDICATIONS REVIEWED BY: Ethyl Blender and Britany Lynch RN PROCEDURE TYPE: NM STRESS: 0.4 mg of Lexiscan was administered IV at 1106 by Britany Lynch RN. Reversal agent used: None. Expiration date: 06/2024 Lot#: [id number] IV SITE: Ambulatory: A Saline lock was [...] 09, 2022 TIME: 10:51 AM PAGER/CONTACT #: [facility] 12-09-2022 Note HNO ID: [id number] Author: Demetrice Sumner, RT(R) Service: Nuclear Medicine Author Type: Technologist [...] POST EXAM PIV STATUS: Discontinued PROCEDURE TYPE: DC Stress: 13.0mCi Oy88y-Fzpmxch was administered IV for Rest Imaging at 0955 by RT Stanislav(R). 31.8 mCi Ps78q-Cjhwucg was administered IV for Stress Imaging at 1106 by demetrice sumner [facility]. ADMINISTRATION TIME: PATIENT DISCHARGED TO: Ambulatory patient, left [place] department area. A Diagnostic radioactive procedure has taken place, with no further precautions necessary other than routine body substance precautions. More information regarding radiation safety can be found using this link: [email or web address] [email or web address] SIGNATURE: RT Stanislav(R) PATIENT NAME: Jaret Grajeda DATE: December 09, 2022 TIME: 9:57 AM PAGER/CONTACT #: [facility] 11-24-2022 Miscellaneous Notes Thanks for the update [...] Cathy Jovel RN documented in this encounter [facility] 10-15-2022 Note HNO ID: [id number] Author: Delfina Blue MD, PhD Service: ? Author Type: Physician Type: Progress Notes Filed: 10/15/2022 4:54 PM Note Text: [facility] STAFF PHYSICIAN NOTE OF PERSONAL INVOLVEMENT IN [...] PhD DATE OF SERVICE: October 14, 2022 [facility] 10-14-2022 Note HNO ID: [id number] Author: Fernando Noel MD Service: ? Author Type: Fellow Type: Progress Notes Filed: 10/15/2022 4:54 PM Note Text: [facility] THORACIC SURGERY OUTPATIENT CONSULT NOTE Jaret Grajeda [id number] Requesting Provider: Wade Jones Thoracic Physician: Delfina Blue MD Chief Complaint: lung cancer Impression: Jaret Grajeda is a 62 yoM current heavy 45PYS with newly diagnosed [id number] TRISTEN adenoCA. EBUS with negative level 7 [...] SERVICE: 10/14/2022 TIME of SERVICE: 3:57 PM [facility] 10-14-2022 Note HNO ID: [id number] Author: Ana Steward RRT Service: ? Author [...] PM _ Comments: B/P 5min post 185/98 [facility] 10-14-2022 Note HNO ID: [id number] Author: Delfina Blue MD, PhD Service: Thoracic Surgery Author Type: Physician Type: Progress Notes Filed: 10/18/2022 7:56 PM Note Text: [place] [address] [place] DEPARTMENT OF THORACIC AND CARDIOVASCULAR SURGERY NAME: JARET GRAJEDA [facility] #: [id number] DATE: 10/14/2022 AGE: 62 PHYSICIAN: Delfina Blue [...] very near future. Delfina Blue M.D., Ph.D. :[id number] [facility] 10-14-2022 Procedure note Associated Ord er(s): SIX [...] TIME: 9:29 PM documented in this encounter [facility] 09-28-2022 Note HNO ID: [id number] Author: Don Mejia MD Service: ? Author Type: Physician Type: Progress Notes Filed: 10/06/2022 6:08 AM Note Text: Radiation Oncology - New Patient/Consult Note PATIENT NAME: Jaret Grajeda PATIENT REQUESTING PHYSICIAN: Jennifer Garber MD DIAGNOSIS: Stage IB, uO5V1B0, non-small cell lung cancer (adenocarcinoma) arising from the left upper lobe of the lung. PATIENT IDENTIFICATION: This patient was seen in the Department of Radiation Oncology at the [facility] with Don Mejia MD. He was accompanied today by his family. Final recommendations will be communicated back to the requesting physician by way of the shared medical record, or letter to requesting physician via US mail. HISTORY OF PRESENT ILLNESS: Mr. Grajeda is a 62-year-old gentleman from [place], [place] and heavy tobacco user who was [...] has 1 child, and lives in the [place], [place] area. 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 He reports an approximate 66-ozni-gnyt history of smoking and currently smokes a [...] 62-year-old gentleman recently diagnosed with Stage IB, [id number], non-small cell lung cancer (adenocarcinoma) arising from the left upper lobe of the jelena (more content not included)... [facility] 09-27-2022 History of Present illness Narrative Images from the original note were not included. Radiation Oncology - New Patient/Consult Note PATIENT NAME: Jaret Grajeda PATIENT Signed: Don Mejia MD I spent a total of 60 minutes on the date of the service which included preparing to see the patient, dzvy-fg-[id number] patient care, and counseling and educating the patient/family/caregiver. This document has been created with the use of voice recognition technology. It may contain inaccuracies, misspellings, inaccurate syntax or inappropriate word context that are a result of the inadequacies/shortcomings of said technology/software. 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 Was approved? No Signed by: Lili Martinez [...] Encounter Status:Closed by LILI MARTINEZ on 09/27/22 [facility] 09-27-2022 Miscellaneous Notes Thanks for tristen Ochoa Offered Bakari an appointment with Dr Blue on 10/05 he will not take appointment he stated that he has someone taking him on the and discussed with him daughter they would like to keep appt as scheduled. documented in this encounter [facility] 09-27-2022 Nurse Note Radiation Therapy - Patient Education Note PATIENT NAME: Jaret Grajeda PATIENT September 27, 2022 [facility] FACILITY/LOCATION: [place] [facility] Cognitive Ability: Alert and [...] need for social work, van service, and fleet sales manager. Was approved? No Signed by: Lili Martinez LPN documented in this encounter [facility] 09-21-2022 Miscellaneous Notes Patient called back he is scheduled for Tuesday per his request. Called patient again to schedule tiffany no answer 09/06/22 EBUS results are available in Care Everywhere. Thanks Lili Martinez LPN Referral was made by Dr. Garber and is important to keep. According to the chart he was also supposed to follow-up with Dr. Candelaria in [place] for bronchoscopy/EBUS for pathologic staging of his mediastinum which will be important for treatment decision-making. Thanks! Don I attempted to call Jaret regarding his missed appt for consult today but there was no answer. Today is the 3rd/4th time he has no showed for his [...] Lili Martinez LPN documented in this encounter [facility] 08-10-2023 Miscellaneous Notes Left date and time of apt for patient. Sent via [employer] - [id number]. Th, 10/14/2022 at [place] PFTs at 12:30pm/1pm/1:15pm Th, 10/14/2022 at [facility] Consult w/ Dr. Blue at 3:40pm documented in this encounter [facility] 09-09-2022 Miscellaneous Notes Images from the original note were not included. Thoracic Surgery Consultation - review of records for appointment scheduling Received medical records from the office of Wade Jones Sr, MD [address] [facility] [address] Patient is being referred to Unspecified/First Available [...] Cellular evidence of lymph node Procedures: 09/06 [facility] 08/13/22 ct guided bx Imaging . PET/CT: [...] by Wade Jones Sr, MD [address] [facility] [address] Patient diagnosis/Reason for consult: Lung Cancer Referral triage process explained: Yes Patient will receive a call from Thoracic NPM after triage review with surgeon to discuss any additional testing and/or consults that will be scheduled. Pt will then receive a call from our scheduling office for scheduling. Please call pt at [phone]. Patient was informed consultation could be at [place] or [facility]: No Patient Registration: Registration complete/updated: Yes Insurance card(s) scanned in [facility] with in the past year: Yes: Date: 08/26/22 Pt's MyChart is Pending. Ok to communicate to pt via Conversocialhart not asked Medical Records: Records in [facility] (internal [facility] records): No Imaging in [facility] (internal [facility] records): No Care Everywhere - queried yes, downloaded Yes Linked Outside Organizations (list):[facility] Records Requested: yes Date: August 26, 2022 Outside Hospital(s) requested records from: Dr. Wade Jones, Dr. Garber Received: Yes Uploaded: Yes. Waiting on additional records: No. Missing (list): n/a OS Pathology Slides Requested: no Date: N/A Outside Hospital(s) slides requested from: n/a OS Radiology Imaging Requested: yes Date: August 26, 2022 Outside Hospital(s) requested imaging from: [facility]. Imaging will be received via Electronic Transfer Received: Yes Imaging uploaded: Yes Waiting on additional: No. Missing (list): n/a Additional providers added to Care Teams: Yes Additional Notes/Comments: n/a Enct routed to: Thoracic NPM for Triage Jeremiah Gibbs, [employer] administrator documented in this encounter [facility] 09-09-2022 Miscellaneous Notes I left a message for Jaret to call the office conner regarding his missed appointment for consult with Dr. Mejia today. This is twice that he's no showed to the scheduled consult. I notified Shilpa with Dr. Garber's office of the above as well. Lili Martinez LPN documented in this encounter [facility] 09-06-2022 Note Patient: Jaret Grajeda Procedure Summary Date: 09/06/22 Room / Location: [facility] Main Operating Room Anesthesia Start: 1244 Anesthesia Stop: 1357 Procedure: BRONCHOSCOPY Diagnosis: Primary adenocarcinoma of left lung (CMS/HCC) Scheduled Providers: Chinyere Candelaria MD; James Johnson MD; ARETHA Yagn Responsible Provider: James Johnson MD Anesthesia Type: [...] no known notable events for this encounter. [facility] 09-06-2022 Note Airway Date/Time: 09/06/2022 12:57 [...] 1 Number of other approaches attempted: 0 [facility] 09-06-2022 Note Patient: Jaret Grajeda Procedure Summary Date: 09/06/22 Room / Location: [facility] Main Operating Room Anesthesia Start: 1244 [...] observation Transport: uneventful Patient condition is: stable [facility] 09-06-2022 Note Patient: Jaret Grajeda Procedure Information Date/Time: 09/06/22 1200 Scheduled providers: Chinyere Candelaria MD; James Johnson MD; ARETHA Yang Procedure: BRONCHOSCOPY Location: [facility] Main Operating Room Relevant Problems No [...] 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 Additional Equipment Requests [facility] 08-19-2022 Note Attestation signed by Chinyere [...] Age: 62 y.o. : 1960 Account No.: [id number] Referring physician: Chief complaint: Lung mass, newly [...] BICARB, CO2, CO2, PH, PH, PHART, PHVEN, SCJ0DAA, VLX2OEC, [id number], PO2POC, PO2ART, PO2VEN, WBQ3TRD, EON1YLN Radiology: No Chest X-ray results found for [...] was initiated by the patient and conducted vki-wkyi-pz-face with use of audio-only real time telephone communication between patient and provider for a virtual visit. Verbal consent to provide and bill for this service was obtained No signature was obtained due to the COVID-19 pandemic. Micheal Feliz MD PCCM Fellow [facility] 08-18-2022 Note . [facility] 05-26-2022 Note PROCEDURE: XR FOOT R T [...] authenticated by: ANNE GUADALUPE Date: 2022-05-26 19:40 [facility] 04-14-2022 Note PROCEDURE: XR FOOT R [...] authenticated by: LEIGH PUCKETT Date: 2022-04-14 09:05 [facility] 03-31-2022 Note PROCEDURE: XR FOOT R [...] authenticated by: LEIGH PUCKETT Date: 2022-03-31 08:08 [facility] 03-23-2022 Note PROCEDURE: XR FOOT R [...] authenticated by: ANNE GUADALUPE Date: 2022-03-23 12:49 [facility] Evaluation note Diagnosis Malignant neoplasm of left lung, unspecified part of lung (HCC)- Primary [facility] Diagnosis 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)- Primary [facility] Diagnosis Malignant neoplasm of left lung, unspecified part of lung (HCC) [facility] Diagnosis Malignant neoplasm of left lung, unspecified part of lung (HCC) [facility] Diagnosis Personal history of malignant neoplasm of bronchus and lung- Primary [facility] Diagnosis Neoplasm of lung- Primary Neoplasm of unspecified nature of respiratory system [facility] Diagnosis 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)- Primary documented in this encounter [facility] for referral (narrative)* Outpatient Procedure (Routine) - Pending Review Specialty Diagnoses / Procedures Referred By Javy singer Referred To [facility] Diagnoses Malignant neoplasm of left lung, unspecified part of lung (HCC) Procedures SIX MINUTE WALK CARDIOPULMONARY EXERCISE STRESS Delfina Blue MD, PhD [address] [place] [address] [facility] [place] [facility] [address] [address] Referral ID Status Reason Start Date Expiration Date Visits Requested Visits Authorized [id number] Pending Review Auto-Generat ed Referral 09/09/2022 10/09/2023 1 1 * Outpatient Procedure (Routine) - Pending Review Specialty Diagnoses / Procedures Referred By Javy singer Referred To Contact [facility] [place] Diagnoses Malignant neoplasm of left lung, unspecified part of lung (HCC) Procedures LUNG DIFFUSION CAPACITY (DLCO) DIFFUSING CAPACITY Delfina Blue MD, PhD [address] [place] [address] [place] [address] [place] [address] Referral ID Status Reason Start Date Expiration Date Visits Requested Visits Authorized [id number] Pending Review Auto-Generat ed Referral 09/09/2022 10/09/2023 1 1 * Outpatient Procedure (Routine) - Pending Review Specialty Diagnoses / Procedures Referred By Contac t Referred To Contact [facility] [place] Diagnoses Malignant neoplasm of left lung, unspecified part of lung (HCC) Procedures SPIROMETRY BASELINE ONLY SPMTRY W/VC EXPIRATORY RU W/WO MXML VOL VNTJ Delfina Blue MD, PhD [address] [place] [address] [facility] [address] [place] [address] Referral ID Status Reason Start Date Expiration Date Visits Requested Visits Authorized [id number] Pending Review Auto-Generat ed Referral 09/09/2022 10/09/2023 1 1 [facility] Summary Purpose Family History No Family History [...] COMPUTED TOMOGRAPHY THORAX W/CONTRAST Don Mejia MD [address] [place] [address] [place] [address] Ct Imaging [facility] Referral ID Status Reason Start Date Expiration Date Visits Requested Visits Authorized [id number] Authorized Auto-Generat ed Referral 06/09/2023 04/09/2024 1 1 Additional Source Comments (unrecognized sect ion and content) No Status Records FoundNo Status Records FoundNo Status Records FoundNo Status Records Found INFORMATION SOURCE (unrecogn ized section and content) DATE CREATED AUTHOR 05/30/2022 [facility] DATE CREATED AUTHOR AUTHOR'S ORGANIZ ATION 09/09/2022 [facility] DATE CREATED AUTHOR AUTHOR'S ORGANIZ ATION 10/15/2022 [facility] DATE CREATED AUTHOR AUTHOR'S ORGANIZ ATION 07/01/2023 [facility] Source Comments (unrecognize d section and content) In the event this informatio n is protected by the Federal Confidentiality of Alcohol and Drug Abuse Patient Records regulations: The Federal rules restrict any use of the information to criminally investigate or prosecute any alcohol or drug abuse patient.[facility] the event this information is protected by the Federal Confidentiality of Alcohol and Drug Abuse Patient Records regulations: The Federal rules restrict any use of the information to criminally investigate or prosecute any alcohol or drug abuse patient.[facility] the event this information is protected by the Federal Confidentiality of Alcohol and Drug Abuse Patient Records regulations: The Federal rules restrict any use of the information to criminally investigate or prosecute any alcohol or drug abuse patient.[facility] the event this information is protected by the Federal Confidentiality of Alcohol and Drug Abuse Patient Records regulations: The Federal rules restrict any use of the information to criminally investigate or prosecute any alcohol or drug abuse patient.[facility] the event this information is protected by the Federal Confidentiality of Alcohol and Drug Abuse Patient Records regulations: The Federal rules restrict any use of the information to criminally investigate or prosecute any alcohol or drug abuse patient.[facility] the event this information is protected by the Federal Confidentiality of Alcohol and Drug Abuse Patient Records regulations: The Federal rules restrict any use of the information to criminally investigate or prosecute any alcohol or drug abuse patient.[facility] the event this information is protected by the Federal Confidentiality of Alcohol and Drug Abuse Patient Records regulations: The Federal rules restrict any use of the information to criminally investigate or prosecute any alcohol or drug abuse patient.[facility] the event this information is protected by the Federal Confidentiality of Alcohol and Drug Abuse Patient Records regulations: The Federal rules restrict any use of the information to criminally investigate or prosecute any alcohol or drug abuse patient.[facility] the event this information is protected by the Federal Confidentiality of Alcohol and Drug Abuse Patient Records regulations: The Federal rules restrict any use of the information to criminally investigate or prosecute any alcohol or drug abuse patient.[facility] the event this information is protected by the Federal Confidentiality of Alcohol and Drug Abuse Patient Records regulations: The Federal rules restrict any use of the information to criminally investigate or prosecute any alcohol or drug abuse patient.[facility] the event this information is protected by the Federal Confidentiality of Alcohol and Drug Abuse Patient Records regulations: The Federal rules restrict any use of the information to criminally investigate or prosecute any alcohol or drug abuse patient.[facility] the event this information is protected by the Federal Confidentiality of Alcohol and Drug Abuse Patient Records regulations: The Federal rules restrict any use of the information to criminally investigate or prosecute any alcohol or drug abuse patient.[facility] the event this information is protected by the Federal Confidentiality of Alcohol and Drug Abuse Patient Records regulations: The Federal rules restrict any use of the information to criminally investigate or prosecute any alcohol or drug abuse patient.[facility] the event this information is protected by the Federal Confidentiality of Alcohol and Drug Abuse Patient Records regulations: The Federal rules restrict any use of the information to criminally investigate or prosecute any alcohol or drug abuse patient.[facility] the event this information is protected by the Federal Confidentiality of Alcohol and Drug Abuse Patient Records regulations: The Federal rules restrict any use of the information to criminally investigate or prosecute any alcohol or drug abuse patient.[facility] the event this information is protected by the Federal Confidentiality of Alcohol and Drug Abuse Patient Records regulations: The Federal rules restrict any use of the information to criminally investigate or prosecute any alcohol or drug abuse patient.[facility] the event this information is protected by the Federal Confidentiality of Alcohol and Drug Abuse Patient Records regulations: The Federal rules restrict any use of the information to criminally investigate or prosecute any alcohol or drug abuse patient.[facility] the event this information is protected by the Federal Confidentiality of Alcohol and Drug Abuse Patient Records regulations: The Federal rules restrict any use of the information to criminally investigate or prosecute any alcohol or drug abuse patient.[facility] the event this information is protected by the Federal Confidentiality of Alcohol and Drug Abuse Patient Records regulations: The Federal rules restrict any use of the information to criminally investigate or prosecute any alcohol or drug abuse patient.[facility] the event this information is protected by the Federal Confidentiality of Alcohol and Drug Abuse Patient Records regulations: The Federal rules restrict any use of the information to criminally investigate or prosecute any alcohol or drug abuse patient.[facility] Reason for Visit (unrecogniz ed section and content) Reason Comments External Referrals/resources Consult Reason Comments Appointment Reason Comments Appointment Confirmation Reason Comments Patient Education Reason Comments FYI-No Action Needed Reason Comments Consult Reason Comments Spirometry Specialty Diagnoses / Procedures Referred By Javy t Referred To [facility] [place] Diagnoses Malignant neoplasm of left lung, unspecified part of lung (HCC) Procedures LUNG DIFFUSION CAPACITY (DLCO) DIFFUSING CAPACITY Delfina Blue MD, PhD [address] [place] [address] Respiratory [place] [address] [place] [id number] Referral ID Status Reason Start Date Expiration Date V isits Requested Visits Authorized [id number] Closed Auto-Generate d Referral 09/09/2022 10/09/2023 1 1 Specialty Diagnoses / Procedures Referred By Javy t Referred To [facility] [place] Diagnoses Malignant neoplasm of left lung, unspecified part of lung (HCC) Procedures SPIROMETRY BASELINE ONLY SPMTRY W/VC EXPIRATORY RU W/WO MXML VOL VNTJ Delfina Blue MD, PhD [address] [place] [address] Respiratory [place] [address] [place] [address] Referral ID Status Reason Start Date Expiration Date V isits Requested Visits Authorized [id number] Closed Auto-Generate d Referral 09/09/2022 10/09/2023 1 1 Specialty Diagnoses / Procedures Referred By Contac t Referred To Contact [facility] Diagnoses Malignant neoplasm of left lung, unspecified part of lung (HCC) Procedures SIX MINUTE WALK CARDIOPULMONARY EXERCISE STRESS PULMONARY STRESS TESTING Delfina Blue MD, PhD [address] [facility] [address] [place] [address] Respiratory [place] [address] [place] [address] Referral ID Status Reason Start Date Expiration Date V isits Requested Visits Authorized [id number] Closed Auto-Generate d Referral 10/01/2022 02/06/2023 1 1 Reason Comments Mass Reason Comments Future Appointment Reason Comments Received Outside Medical Records Reason Comments Orders Reason Comments Patient Update Post Radiation Treat ment Nurse Call Reason Comments Lung Cancer Specialty Diagnoses / Procedures Referred By Contac t Referred To Contact [facility] DEPARTMENT Diagnoses . Procedures . 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 [address] [facility] [place] [address] PCP - General Family Medicine 08/26/22 Chinyere Candelaria [address] [place] [address] Critical Care 08/26/22 Jennifer Garber MD [address] [place] [address] Hematology/Oncology 08/26/22 Coal Miner Relationship Specialty Start Date End Date Wade Jones Sr. 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 Miner Relationship Specialty Start Date End Date Wade Jones Sr., [address] [place] [address] PCP - General Family Medicine 08/26/22 Chinyere Candelaria MD [address] [place] [address] Critical Care 08/26/22 Jennifer Garber MD [address] [place] [address] Hematology/Oncology 08/26/22 Coal Miner Relationship Specialty Start Date End Date Wade Jones Sr., DO [address] [place] [address] PCP - General Family Medicine 08/26/22 Chinyere Candelaria MD [address] [place] [address] Critical Care 08/26/22 Jennifer Garber MD [address] [place] [address] Hematology/Oncology 08/26/22 Coal 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 Relationship Specialty Start Date End Date Wade Jones Sr., DO [address] [place] [address] PCP - General Family Medicine 08/26/22 Chinyere Candelaria MD [address] [place] [address] Critical Care 08/26/22 Jennifer Garber MD [address] [place] [address] Hematology/Oncology 08/26/22 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 Relationship Specialty Start Date End Date Wade Jones Sr., DO [address] [place] [address] PCP - General Family Medicine 08/26/22 Chinyere Candelaria MD [address] [place] [address] Critical Care 08/26/22 Jennifer Garber MD [address] [place] [address] Hematology/Oncology 08/26/22 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 Miner Relationship Specialty Start Date End Date Wade Jones Sr., DO [address] [place] [address] PCP - General Family Medicine 08/26/22 Chinyere Candelaria MD [address] [place] [address] Critical Care 08/26/22 Jennifer Graber MD [address] [place] [address] Hematology/Oncology 08/26/22 Coal 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 Relationship Specialty Start Date End Date Wade Jones Sr., DO [address] [place] [address] PCP - General Family Medicine 08/26/22 Chinyere Candelaria MD [address] [place] [address] Critical Care 08/26/22 Jennifer Garber MD [address] [place] [address] Hematology/Oncology 08/26/22 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 Relationship Specialty Start Date End Date Wade Jones Sr., DO [address] [place] [address] PCP - General Family Medicine 08/26/22 Chinyere Candelaria MD [address] [place] [address] Critical Care 08/26/22 Jennifer Garber MD [address] [place] [address] Hematology/Oncology 08/26/22 Coal Miner Relationship Specialty Start Date End Date Wade Jones Sr., DO [address] [place] [address] PCP - General Family Medicine 08/26/22 Chinyere Candelaria MD [address] [place] [address] Critical Care 08/26/22 Jennifer Garber MD [address] [place] [address] Hematology/Oncology 08/26/22 Coal Miner Relationship Specialty Start Date End Date Wade Jones Sr., DO PCP - General Family Medicine 08/26/22 Chinyere Candelaria MD [address] [place] [address] Critical Care 08/26/22 Jennifer Garber MD [address] [place] [address] Hematology/Oncology 08/26/22 FOR RECORDS PERTAINING TO PATIENTS [...] BE BASED ON THE PRIMARY CLINICAL RECORDS. [employer] provides no warranty or guarantee of the accuracy or completeness of information in this document.
[2023-07-29 08:46] LABS: Alanine Aminotransferase 18 U/L (16-63); Albumin Globulin Ratio 0.5; Albumin Level 1.9 g/dL (3.4-5.0); Alkaline Phosphatase 90 U/L (46-116); Anion Gap 10.4; Aspartate Amino Transferase 22 U/L (15-37); BUN Creatinine Ratio 9.3; Bilirubin Total 0.7 mg/dL (0.2-1.0); Calcium 8.1 mg/dL (8.5-10.1); Chloride 99 mmol/L (98-107); Estimated GFR (African America >60 (>=60); Estimated GFR (Non-African Ame >60 (>=60); Globulin 3.5 g/dL; Glucose 93 mg/dL (74-106); Potassium 3.4 mmol/L (3.5-5.1); Sodium 134 mmol/L (136-145); Total Protein 5.4 g/dL (6.4-8.2)
== END 2023-07-29 03:00 | disposition home or self-care (01) ==
LOC: LAB 02:59
PROVIDERS: PCP Internal Medicine Hematology & Oncology; Visit Provider Family Medicine
DX: I50.32 Chronic diastolic (congestive) heart failure (principal); E83.42 Hypomagnesemia; E86.0 Dehydration; R19.7 Diarrhea, unspecified; E87.5 Hyperkalemia; R62.7 Adult failure to thrive
CPT/HCPCS: 36415; 80053; 83880

== ENCOUNTER 2024-03-12 17:31 | Inpatient (IN) | payer MEDICARE, OTHER, SELFPAY ==
[2024-03-12] VITALS (34 sets, daily range): BP systolic 85–141; BP diastolic 55–95; PULSE 82–120; TEMP 35.4–36.6; O2SAT 92–100; BMI 26.4; BMI 20.1
--- NOTE | 2024-03-12 17:35 | PC.NURSE ---
warming blanket applied
--- NOTE | 2024-03-12 17:39 | XR_ITS ---
The [address] [address] Patient Name: BOBBY GRAJEDA MRN: [id number] date: 1960 Sex: M Assigned Patient Location: ER Current Patient Location: ER Accession/Order Number: [id number] Exam Date: 03/12/2024 17:30 Report Date: 03/12/2024 20:12 At the request of: MARILYN RIVERO Procedure: XR chest 1V Portable chest x-ray, 03/12/2004. HISTORY: Weakness. Chest pain. COMPARISON: Chest x-ray, 07/18/2023. FINDINGS: Single view of the chest was obtained. Heart size and mediastinal contours are normal. No pleural effusion. No pneumothorax. There is some chronic scarring at the left lung apex which is stable. There is some new airspace opacification at the left lung base. Right lung is clear. No pulmonary edema. XR/XR chest 1V IMPRESSION: 1. There is new airspace opacification at the left lung base which could be infectious or inflammatory pneumonia. 2. There is some chronic scarring at the left lung apex that is stable. 3. Right lung is clear. Electronically authenticated by: JOSE J SHEPARD Date: 03/12/2024 20:12
--- NOTE | 2024-03-12 17:39 | CT_ITS ---
The [address] [address] Patient Name: BOBBY GRAJEDA MRN: [id number] date: 1960 Sex: M Assigned Patient Location: ER Current Patient Location: Accession/Order Number: [id number] Exam Date: 03/12/2024 18:30 Report Date: 03/12/2024 20:38 At the request of: MARILYN RIVERO Procedure: CT angio chest EXAM: CT angiogram of the chest, abdomen and pelvis using 100 mL of IV iodinated contrast. 3D images were generated on an independent workstation for better evaluation of the vasculature. Dose reduction technique used: Automated exposure control and/or adjustment of the mA and/or kV according to patient size and/or use of iterative reconstruction technique. REASON FOR EXAM: Rule out PE, history of lung mass COMPARISON: CT scan dated 07/18/2023 FINDINGS: CHEST: Small burden of acute predominantly left-sided pulmonary emboli including multiple left segmental and subsegmental pulmonary artery branches. No definite CT evidence right heart strain. Small amount of airspace opacities scattered in both lungs, most evident in the left lower lobe and right upper lobe. No aortic dissection, penetrating atheromatous ulcer or intramural hematoma. No pneumothorax. No acute airspace opacities. No acute fractures. No concerning pulmonary nodules. No lymphadenopathy in the chest. Fusiform aneurysmal dilation at the origin of the left subclavian artery measuring up to 3.0 cm. Mild ectasia of the proximal descending thoracic aorta measuring up to 3.8 cm. Small bilateral pleural effusions. Centrilobular emphysema in both lungs. Left apical scarring is not substantially changed. Right apical groundglass pulmonary nodule is less evident than on the prior exam. Coronary atherosclerotic calcifications are present. Bilateral gynecomastia. Chronic T4 compression fracture with mild height loss. ABDOMEN/PELVIS: No aortic dissection, aneurysm, penetrating atheromatous ulcer or intramural hematoma. Mild ectasia at the bifurcation of the right renal artery near the right renal hilum. Celiac, superior mesenteric and bilateral renal arteries are patent without significant stenosis. Inferior mesenteric artery may have stenosis at its origin but is otherwise patent. Moderate densely calcified stenosis at the origin and proximal segment of the left common iliac artery. Moderate calcified stenosis of the left common femoral artery. Moderate to severe densely calcified stenosis at the origin of the right common iliac artery. Mild to moderate right extrarenal iliac artery stenosis. Moderate to severe right common femoral artery stenosis distally. Left adrenal mass measures 5.4 x 4.1 cm, this is new compared to 01/24/2023. Diaz catheter in the bladder. Chronic L1 compression fracture with mild height loss. Mild lumbar scoliosis. Trace free fluid in the pelvis. No evidence of appendicitis. No free intraperitoneal air. No dilated or thickened loops of small bowel or colon. No hydronephrosis or obstructing renal or ureteral calculi. Liver, pancreas, spleen, bilateral kidneys, and bilateral adrenal glands are otherwise unremarkable. Remainder unremarkable. CT/CT angio chest IMPRESSION: 1. Small burden of acute predominantly left-sided pulmonary emboli. 2. Small amount of airspace opacities in the right upper and left lower lobes that could represent developing pulmonary infarct, hemorrhage or infection/inflammation, correlate clinically. 3. New 5.4 cm left adrenal mass compatible with malignancy. 4. Moderate to severe right common iliac and right common femoral artery stenoses. 5. Moderate left common iliac and left common femoral artery stenoses. 6. 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 Electronically authenticated by: BRAEDEN MOE Date: 03/12/2024 20:38
--- NOTE | 2024-03-12 17:39 | ECG_ITS ---
The [facility] Test Date: 2024-03-12 Pat Name: BOBBY GRAJEDA Department: Room: - Gender: Male [employer]ooter: : 1960 Requested By: Jennifer Garber Order Number: [id number] Reading MD: NAYA COYLE Measurements Intervals Sunset Rate: 104 P: 72 NE: 152 QRS: 61 QRSD: 96 T: 270 QT: 386 QTc: 447 Interpretive Statements 1120 Sinus tachycardia 1570 with occasional ventricular premature complexes [address] & [place] abnormality 9150 abnormal ECG Electronically Signed On 03-12-2024 20:50:49 EST by NAYA COYLE
--- NOTE | 2024-03-12 17:39 | CT_ITS ---
[address] [address] Patient Name: BOBBY GRAJEDA MRN: [id number] date: 1960 Sex: M Assigned Patient Location: ER Current Patient Location: Accession/Order Number: [id number] Exam Date: 03/12/2024 18:30 Report Date: 03/12/2024 20:38 At the request of: MARILYN RIVERO Procedure: CT angio abdomen pelvis EXAM: CT angiogram of the chest, abdomen and pelvis using 100 mL of IV iodinated contrast. 3D images were generated on an independent workstation for better evaluation of the vasculature. Dose reduction technique used: Automated exposure control and/or adjustment of the mA and/or kV according to patient size and/or use of iterative reconstruction technique. REASON FOR EXAM: Rule out PE, history of lung mass COMPARISON: CT scan dated 07/18/2023 FINDINGS: CHEST: Small burden of acute predominantly left-sided pulmonary emboli including multiple left segmental and subsegmental pulmonary artery branches. No definite CT evidence right heart strain. Small amount of airspace opacities scattered in both lungs, most evident in the left lower lobe and right upper lobe. No aortic dissection, penetrating atheromatous ulcer or intramural hematoma. No pneumothorax. No acute airspace opacities. No acute fractures. No concerning pulmonary nodules. No lymphadenopathy in the chest. Fusiform aneurysmal dilation at the origin of the left subclavian artery measuring up to 3.0 cm. Mild ectasia of the proximal descending thoracic aorta measuring up to 3.8 cm. Small bilateral pleural effusions. Centrilobular emphysema in both lungs. Left apical scarring is not substantially changed. Right apical groundglass pulmonary nodule is less evident than on the prior exam. Coronary atherosclerotic calcifications are present. Bilateral gynecomastia. Chronic T4 compression fracture with mild height loss. ABDOMEN/PELVIS: No aortic dissection, aneurysm, penetrating atheromatous ulcer or intramural hematoma. Mild ectasia at the bifurcation of the right renal artery near the right renal hilum. Celiac, superior mesenteric and bilateral renal arteries are patent without significant stenosis. Inferior mesenteric artery may have stenosis at its origin but is otherwise patent. Moderate densely calcified stenosis at the origin and proximal segment of the left common iliac artery. Moderate calcified stenosis of the left common femoral artery. Moderate to severe densely calcified stenosis at the origin of the right common iliac artery. Mild to moderate right extrarenal iliac artery stenosis. Moderate to severe right common femoral artery stenosis distally. Left adrenal mass measures 5.4 x 4.1 cm, this is new compared to 01/24/2023. Diaz catheter in the bladder. Chronic L1 compression fracture with mild height loss. Mild lumbar scoliosis. Trace free fluid in the pelvis. No evidence of appendicitis. No free intraperitoneal air. No dilated or thickened loops of small bowel or colon. No hydronephrosis or obstructing renal or ureteral calculi. Liver, pancreas, spleen, bilateral kidneys, and bilateral adrenal glands are otherwise unremarkable. Remainder unremarkable. CT/CT angio abdomen pelvis IMPRESSION: 1. Small burden of acute predominantly left-sided pulmonary emboli. 2. Small amount of airspace opacities in the right upper and left lower lobes that could represent developing pulmonary infarct, hemorrhage or infection/inflammation, correlate clinically. 3. New 5.4 cm left adrenal mass compatible with malignancy. 4. Moderate to severe right common iliac and right common femoral artery stenoses. 5. Moderate left common iliac and left common femoral artery stenoses. 6. 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 Electronically authenticated by: BRAEDEN MOE Date: 03/12/2024 20:38
--- OUTSIDE RECORDS SUMMARY | 2024-03-12 17:40 | XMS_ITS | CCD ---
Author Organization [facility] Care Team Providers Care Instructional Aide Name Role Phone EDWIN Liao, SEN Attending Unavailable EDWIN ., SEN Admitting Unavailable KAREN, DR TREVINO Primary Care Unavailable COLLINS, DR ANNE Cornejo Consulting Unavailable YAMILA HUNTER Consulting Unavailable EDWIN ., SEN Consulting Unavailable CECILIO ., NICHOLE Attending Unavailable CECILIO ., NICHOLE Admitting Unavailable HOUSE, DR TREVINO Primary Care Unavailable COLLINS, DR ANNE Cornejo Consulting Unavailable CECILIO ., NICHOLE Consulting Unavailable KAREN, DR TREVINO Attending Unavailable HOUSE, DR TREVINO [...] CANDELARIA Attending Unavailable CHINYERE CANDELARIA Referring Unavailable Karen Hannon, Wade Wolf Primary Care Provider Chinyere Candelaria Unavailable Jennifer Garber MD Unavailable [phone] Chinyere Candelaria MD Unavailable [phone] MARTIN, SUDISH Referring Unavailable HOUSE SR, WADE [...] Attending Unavailable SELF Referring Unavailable HOUSE SR, AWDE P Primary Care Unavailable HOUSE SR, WADE P Primary Care Unavailable ROBERTO, DON Referring Unavailable HOUSE SR, WADE P Primary Care Unavailable HOUSE SR, WADE P Primary Care Unavailable ROBERTO, DON Attending Unavailable HOUSE SR, WADE P Primary Care Unavailable ROBERTO, DON Referring Unavailable HOUSE SR, WADE P Primary Care Unavailable ROBERTO, DON Attending Unavailable HOUSE SR, WADE P Primary Care Unavailable KOSTAS MORALES Attending Unavailable Allergies Allergy Classification Reported Allergen(s) Allergy Type Date of Onset Reaction(s) Facility (1 source) ALLERGIES NOT ON FILE; Translations: [ALLERGIES NOT ON FILE] Propensity to adverse reactions (disorder) [facility] Repository Medications Current Medications Medication Drug [...] succinate 50 mg extended release oral tablet (19 sources) beta-Adrenergic Cesar Start: 09-04-2022 take 1 tablet by mouth every twelve hours metoprolol succinate ER (TOPROL XL) 50 mg 24 hr tablet Take 1 tablet by mouth every 12 hours. 09/04/2022 Active Comment on above: Take 1 [...] Onset: 06-23-2021 Chronic Cancer of bronchus; lung (12 sources) Malignant neoplasm of unspecified part of [...] 03-11-2023 Episodic Other aftercare (1 source) Other residential (current) drug therapy; Translations: [OTH PRISON CURRENT DRUG THERAPY] Onset: 03-24-2022 Episodic Other [...] Test Name Value Interpretation Reference Range Facility Annalisa 06-16-2023 CNPN Telephone (RADTSA) JARET GRAJEDA ([id number]) 1960 M Date Time Provider Department 06/16/23 [...] Status:Closed by CATHY JOVEL on 06/23/23 Normal [facility] CNOVon 04-08-2023 CNOV Office Visit (RADTSA ) JARET GRAJEDA ([id number]) 1960 M Date Time Provider Department 04/08/23 [...] 62-year-old gentleman diagnosed with a Stage IB, [id number], non-small cell lung cancer (adenocarcinoma) arising from [...] Encounter Status:Closed by DON MEJIA on 04/18/23 [facility] 03-24-2023 [facility] Telephone (Zebtab) JARET GRAJEDA ([id number]) 1960 M Date Time Provider Department 03/24/23 DON MEJIA [facility] During your visit today, we recorded the [...] Encounter Status:Closed by CATHY JOVEL on 03/28/23 [facility] 03-11-2023 [facility] Telephone (Zebtab) JARET GRAJEDA ([id number]) 1960 M Date Time Provider Department 03/11/23 ROBERTO DON ANDREWS During your visit today, we recorded the [...] of lung [D49.1] Order(s):CT CHEST W IVCON [[id number]] Order #: [id number] FUTURE [] iv contrast (will be provided [...] EachRfl: 0 CREATININE BLD [SQCRET] Order #: [id number] FUTURE Prescriptions as of 03/14/2023 - metoprolol [...] Encounter Status:Closed by LILI MARTINEZ on 03/14/23 [facility] CNOVon 02-28-2023 CNOV Office Visit (RADTSA ) JARET GRAJEDA ([id number]) 1960 M Date Time Provider Department 02/28/23 2:15 PM DON MEJIA RADTSA During your visit today, we recorded the following information about you: Temperature Pulse Respiration Blood pressure 97.7 degrees 61/minute 22/minute 175/97 Weight 75.5 kg Don Mejia MD 03/03/2023 6:54 AM Signed Radiation Oncology - On Treatment Review (OTR) Note PATIENT NAME: Jaret Grajeda PATIENT DIAGNOSIS: Mr. Grajeda is a 62-year-old gentleman diagnosed with a Stage IB, [id number], non-small cell lung cancer (adenocarcinoma) arising from [...] Encounter Status:Closed by DON MEJIA on 03/03/23 [facility] CNOVon 02-11-2023 CNOV Office Visit (RADTSA ) JARET GRAJEDA ([id number]) 1960 M Date Time Provider Department 02/11/23 11:30 AM DON MEJIA During your visit today, we recorded the following information about you: Don Mejia MD 02/22/2023 4:26 AM Addendum Radiation Oncology - Follow Up Note PATIENT NAME: Jaret Grajeda PATIENT DIAGNOSIS/PATIENT IDENTIFICATION: Mr. Grajeda is a 62-year-old gentleman diagnosed with Stage IB, [id number], non-small cell lung cancer (adenocarcinoma) arising from [...] cancer. He met with Dr. Blue at [facility] and was recommended a cardiac workup [...] 62-year-old gentleman diagnosed with a Stage IB, [id number], non-small cell lung cancer (adenocarcinoma) arising from [...] as potent (more content not included)... Normal [facility]AR[facility] GRAJED[facility] ([id number]) 1960 Date Time Provider Department 01/25/23 DON MEJIA During your visit today, we recorded the following information about you: Allergies As of Date: 01/25/2023 (No Known Allergies) Date Reviewed: 12/09/2022 Reviewed by: Shilpa Pop, Signal Tower Operator - Fully Assessed Prescriptions as of 01/26/2023 - metoprolol succinate ER (TOPROL XL) 50 mg 24 hr tablet Take 1 tablet by mouth every 12 hours. Problem List As Of Date: 01/25/2023 (None) Encounter Status:Closed by PURNIMA HAYES on [facility] JARET GRAJEDA ([id number]) 1960 Date Time Provider Department 01/25/23 DON MEJIA During your visit today, we recorded the following information about you: Zackary Hayesy 01/25/2023 12:17 PM Signed Patient is called and scheduled for Followup and SIM next week, I told him I would also send him a reminder as he has a tough time keeping appointments, thank you. Allergies As of Date: 01/25/2023 (No Known Allergies) Date Reviewed: 12/09/2022 Reviewed by: Shilpa Pop, Signal Tower Operator - Fully Assessed Reason for Visit: Appointment Confirmation [[id number]] Prescriptions as of 01/26/2023 - metoprolol succinate ER (TOPROL XL) 50 mg 24 hr tablet Take 1 tablet by mouth every 12 hours. Problem List As Of Date: 01/25/2023 (None) Encounter Status:Closed by PURNIMA HAYES on 01/26/23 Normal [facility] CT Chest W contrast Maci IMPRESSION: 1. Left upper lobe mass which [...] any questions regarding this interpretation, please call [phone]. If you are unable to reach us at the number above, please feel free to contact [facility] eRadiology at [phone]. DIVISION OF RADIOLOGY * * *Final Report* * * DATE OF EXAM: Jan 24 2023 1:35PM [facility] 0539 - CT CHEST W [...] study. The upper abdomen is otherwise unremarkable. Network Contract Manager (topogram) images: No additional findings. DIVISION OF RADIOLOGY Provider, [facility] - 01/25/2023 * * *Final Report* * * DATE OF EXAM: Jan 24 2023 1:35PM [facility] 0539 - CT CHEST W [...] study. The upper abdomen is otherwise unremarkable. Network Contract Manager (topogram) images: No additional findings. IMPRESSION IMPRESSION: 1. Left upper lobe mass which [...] any questions regarding this interpretation, please call [phone]. If you are unable to reach us at the number above, please feel free to contact [facility] eRadiology at [phone]. [facility] CT Chest W contrast IVOrdere d By: Ccf Provider on 01-25-2023 [facility] PET+CT Guidance for localiza tion of tumor of Skull base to mid-thigh-- W 18F-FDG Maci 01-25-2023 IMPRESSION: 1. HEAD and NECK: No evidence [...] any questions regarding this interpretation, please call [phone]. If you are unable to reach us at the number above, please feel free to contact [facility] eRadiology at [phone]. DIVISION OF RADIOLOGY * * *Final Report* * * DATE [...] limits of low dose noncontrast CT scan. DIVISION OF RADIOLOGY Provider, [facility] - 01/25/2023 * * *Final Report* * * DATE [...] limits of low dose noncontrast CT scan. IMPRESSION IMPRESSION: 1. HEAD and NECK: No evidence [...] any questions regarding this interpretation, please call [phone]. If you are unable to reach us at the number above, please feel free to contact [facility] eRadiology at [phone]. [facility] PET+CT Guidance for localiza tion of tumor of Skull base to mid-thigh-- W 18F-FDG IVOrdered By: Ccf Provider on 01-25-2023 [facility] CREATININE BLDon 01-24-2023 Creatinine [Mass/Vol] 0.84 mg/dL Normal 0.73-1.22 [facility] Comment on above: Order Comment: Wesley starr Type: BLOOD SPECIMENOrdering Facility: [facility] Address: [address] [id number] Performed By: #### C RET1 ####[facility] LABCLIA [id number] [place] [address] Creatinine and Glomerular filtration rate.predicted panel (S/P/Bld) 97 mL/min/1.73m??? Normal >=60 [facility] Comment on above: Order Comment: Wesley starr Type: BLOOD SPECIMENOrdering Facility: [facility] Address: [address] [place], [place] [id number] Result Comment: Racquel mated Glomerular Filtration Rate [...] actual GFR. Performed By: #### C RET1 ####[facility] LABCLIA [id number] [place] [address] CREATININE BLDOrdered By: Arabella Willard on 01-24-2023 Creatinine [Mass/Vol] 0.84 mg/dL 0.73 - 1.22 mg/dL [facility] GFR/1.73 sq M.predicted among non-blacks MDRD (S/P/Bld) [Vol rate/Area] 97 mL/min/{1.73_m2} - PINF [facility] Comment on above: Estimated Glomerular Filtration Rate (eGFR) is calculated using the 2020 CKD-EPI creatinine equation. This equation utilizes serum creatinine, sex, and age as parameters. The creatinine assay has traceable calibration to isotope dilution-mass spectrometry. Refer to KDIGO guidelines for clinical interpretation. In patients with unstable renal function, e.g. those with acute kidney injury, the eGFR may not accurately reflect actual GFR. Interpretation and review of laboratory results Normal [facility] CT CHEST W IVCONon 3 CT CHEST W IVCON * * *Final Report* * * DATE OF EXAM: Jan 24 2023 1:35PM [facility] 0539 - CT CHEST W [...] study. The upper abdomen is otherwise unremarkable. Network Contract Manager (topogram) images: No additional findings. IMPRESSION: 1. [...] any questions regarding this interpretation, please call [phone]. If you are unable to reach us at the number above, please feel free to contact [facility] eRadiology at [phone]. [id number] N Normal [facility] GLUCOSE, BLOOD (POC)on 01-24 Glucose [Mass/Vol] 188 mg/dL Abnormal 74 - 99 mg/dL [facility] Comment on above: Location:[facility], [address] [place] [address] , [place], [place], [address] The Accu-Chek Inform II glucose meter has not been approved for testing on patients receiving intensive medical intervention or therapy and results from this point of care glucose test should not be used for patient management decisions in these cases. Inaccurate results may also occur from other interfering factors, such as N-acetylcysteine (blood concentrations of greater than 5mg/dL), galactose, extremes of hematocrit (<10 or >65), or high doses of ascorbic acid (vitamin C) greater than 3mg/dL. Consider alternate testing mechanisms (e.g. core lab, blood gas instrument) in the above situations. Interpretation and review of laboratory results Abnormal [facility] NM PET/CT SKULL-THIGH SUBQon 01-24-2023 NM PET/CT SKULL-THIGH SUBQ * * *Final Report* * * DATE OF EXAM: Jan 24 2023 1:37PM NRN 0063 - [place] PET/CT SKULL-THIGH SUBQ / PROCEDURE REASON: Malignant [...] any questions regarding this interpretation, please call [phone]. If you are unable to reach us at the number above, please feel free to contact [facility] eRadiology at [phone]. [id number] N Normal [facility] No Panel Informationon 01-24 Radiology Study observation (narrative) [facility] Annalisa 01-13-2023 CNPN Telephone (THORMN) JARET GRAJEDA ([id number]) 1960 M Date Time Provider Department 01/13/23 DELFINA BLUE During your visit today, we recorded the following information about you: Jeremiah Gibbs 01/13/2023 3:37 PM Signed Received OSH Hem/Onc office notes 01/04/23 fron [facility] Record scanned in Epic Jeremiah Gibbs, credit administration officerSocrates Walton RN 01/14/2023 2:29 PM Addendum pt to follow with rad onc, Dr Roberto cruz, see note from local oncology dr GARBER Allergies As of Date: 01/13/2023 (No Known Allergies) Date Reviewed: 12/09/2022 Reviewed by: Shilpa Pop, Signal Tower Operator - Fully Assessed Reason for Visit: Received Outside Medical Records [[id number]] Prescriptions as of 01/14/2023 - metoprolol succinate ER (TOPROL XL) 50 mg 24 hr tablet Take 1 tablet by mouth every 12 hours. Problem List As Of Date: 01/13/2023 (None) Encounter Status:Closed by JEREMIAH GIBBS on 01/13/23 [facility] (NCCAP) JARET GRAJEDA ([id number]) 1960 M Date Time Provider Department 01/05/23 [...] Date Reviewed: 12/09/2022 Reviewed by: Shilpa Pop, Signal Tower Operator - Fully Assessed Reason for Visit: Appointment Confirmation [[id number]] Prescriptions as of 01/06/2023 - iv contrast [...] Encounter Status:Closed by CATHY JOVEL on 01/06/23 [facility] Annalisa 12-09-2022 NOL[facility]IA Telephone (PARAMJIT) JARET GRAJEDA ([id number]) 1960 M Date Time Provider Department 12/09/22 [...] Date Reviewed: 12/09/2022 Reviewed by: Shilpa Pop, Signal Tower Operator - Fully Assessed Reason for Visit: Appointment Rescheduled [1024] Prescriptions as of 12/09/2022 - metoprolol succinate ER (TOPROL XL) 50 mg 24 hr tablet Take 1 tablet by mouth every 12 hours. Problem List As Of Date: 12/09/2022 (None) Encounter Status:Closed by SOLEDAD DUMONT on 12/09/22 [facility] CARDIAC PERF STRESS/PHARM on 12-09-2022 NM CARDIAC PERF STRESS/PHARM * * *Final Report* * * DATE OF EXAM: Dec 09 2022 11:57AM [facility] 0006 - [place] CARDIAC PERF STRESS/PHARM / PROCEDURE REASON: multiple diagnoses * * * * Physician Interpretation * * * * Stress Mutuel Cashier Report: [facility] ALEXANDRO-2 Date of service: 12/09/2022 10:08:36 AM [...] See administered radiotracer and doses below. Main [place] Date of service: 12/09/2022 10:08:36 AM Ordering [...] * * * -------- NM CTAC Report: [facility] Date of service: 12/09/2022 10:08:36 AM CTAC interpreting physician: Eagle Patel MD PATIENT: Name: MR. JARET GRAJEDA Age: 62 years Gender: M 1. Incidental Findings from limited non-diagnostic CTAC: - Coronary calcifications visualized. * * * Final * * * -------- Stress ECG Report: [address] [address] Date of service: 12/09/2022 10:08:36 AM Ordering physician: DELFINA BLUE biologics specialist: Shilpa Pop Insurance Sales Professional: Elida Mckeon Interpreting physician: Eagle Patel MD [...] 148/86 mmHg. The double product achieved was [address]. Medications: Last Used METOPROLOL 7 Hours Resting ECG: Normal Sinus Rhythm Symptoms at rest: No symptoms Pharamco (more content not included)... [facility] Telephone (HyperQuestA) JARET GRAJEDA ([id number]) 1960 M Date Time Provider Department 10/18/22 DON MEJIA During your visit today, we recorded the following information about you: Cathy Jovel, CE 10/18/2022 12:39 PM Signed Spoke to pt [...] Status:Closed by CATHY JOVEL on 12/28/22 Normal [facility] CNOVon 10-14-2022 CNOV Office Visit (THORMN ) NICCI,JARET ([id number]) 1960 Date Time Provider Department 10/14/22 3:40 PM DELFINA BLUE During your visit today, we recorded the following information about you: Temperature Pulse Respiration Blood pressure 97.5 degrees 117/minute 14/minute 180/110 Weight Height 73.5 kg 1.73 m Delfina Blue MD, PhD 10/15/2022 8:39 AM Unsigned Rail Car Unloader [address] [address] [place] DEPARTMENT OF THORACIC AND CARDIOVASCULAR SURGERY NAME: JARET GRAJEDA [facility] #: [id number] DATE: 10/14/2022 AGE: 62 PHYSICIAN: Delfina Blue [...] very near future. Delfina Blue M.D., Ph.D. :[id number] /[id number] Fernando Noel MD 10/15/2022 4:54 PM Signed [facility] THORACIC SURGERY OUTPATIENT CONSULT NOTE Jaret Grajeda [id number] Requesting Provider: Wade Jones Thoracic Physician: Delfina Blue MD Chief Complaint: lung cancer Impression: Jaret Grajeda is a 62 yoM current heavy 45PYS with newly diagnosed [id number] TRISTEN adenoCA. EBUS with negative level 7 [...] Date A (more content not included)... Normal [facility] SIX MINUTE WALKon 10-14-2022 [facility] CNOVon 09-27-2022 CNOV Office Visit (RADTSA ) JARET GRAJEDA ([id number]) 1960 M Date Time Provider Department 09/27/22 [...] PHYSICIAN: Jennifer Garber MD DIAGNOSIS: Stage IB, [id number], non-small cell lung cancer (adenocarcinoma) arising from the left upper lobe of the lung. PATIENT IDENTIFICATION: This patient was seen in the Department of Radiation Oncology at the [facility] with Don Mejia MD. He was accompanied today by his family. Final recommendations will be communicated back to the requesting physician by way of the shared medical record, or letter to requesting physician via US mail. HISTORY OF PRESENT ILLNESS: Mr. Grajeda is a 62-year-old gentleman from [place], [place] and heavy tobacco user who was [...] has 1 child, and lives in the [place], [place] area. 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 He reports an approximate 03-lvjg-uffs history of smoking and currently smokes a [...] for malignanc (more content not included)... Normal [facility] CNPPatti 09-27-2022 [facility] Telephone ([facility]) JARET GRAJEDA ([id number]) 1960 M Date Time Provider Department 09/27/22 DON MEJIA During your visit today, we recorded the following information about you: Purnima Hayes 09/27/2022 12:30 PM Signed Offered Bakari an appointment with Dr Blue on 10/05 he will not take appointment he stated that he has someone taking him on the and discussed with him daughter they would like to keep appt as scheduled. Don Mejia MD 09/27/2022 12:42 PM Signed Thanks for trying - Don Allergies As of Date: 09/27/2022 [...] Encounter Status:Closed by PURNIMA HAYES on 09/27/22 [facility] (RODDYA) JARET GRAJEDA ([id number]) 1960 M Date Time Provider Department 09/17/22 [...] supposed to follow-up with Dr. Candelaria in [place] for bronchoscopy/EBUS for pathologic staging of his [...] Encounter Status:Closed by LILI MARTINEZ on 09/23/22 [facility] Annalisa 09-16-2022 [facility] Telephone (ALFREDOLA) JARET GRAJEDA ([id number]) 1960 M Date Time Provider Department 09/16/22 DELFINA BLUE During your visit today, we recorded the following information about you: DumontSoledad 09/16/2022 2:18 PM Signed Left date and time of apt for patient. Sent via [employer] - [phone]. 10/14/2022 at [facility] at 12:30pm/1pm/1:15pm Th, 10/14/2022 at [facility] Consult w/ Dr. Blue at 3:40pm Allergies As of Date: 09/16/2022 (Not on File) Date Reviewed: Never Reviewed Reason for Visit: Appointment Confirmation [3505] Problem List As Of Date: 09/16/2022 (None) Encounter Status:Closed by DUMONTSOLEDAD on 09/16/22 [facility] CNPNon 09-09-2022 CNPN Telephone (RADTSA) JARET GRAJEDA ([id number]) 1960 M Date Time Provider Department 09/09/22 [...] Status:Closed by LILI MARTINEZ on 09/13/22 Normal [facility] HPon 09-06-2022 HP - Attestation signed by Chinyere Candelaria MD at 09/06/2022 12:24 PM Re-explained the procedure to the patient along with the associated risk of pneumothorax, bleeding, hypoxia, and respiratory failure. Patient is agreeable and will proceed with the scheduled bronchoscopy and EBUS TBNA Chinyere Candelaria MD Interventional Pulmonary Medicine Pulmonary and Critical Care Medicine [facility] Physicians H&P reviewed. The patient was [...] deficits Skin: Warm, dry, no rashes Normal [facility] NON-ELECTRO PLATER CYTOLOGY - CELLULAR EXAMon 09-06-2022 LAB AP CASE REPORT Normal [facility] Comment on above: Result Comment: Non- gynecologic Cytology Case: [id number] Authorizing Provider: Chinyere Candelaria MD Collected: 09/06/2022 1316 Ordering Location: [facility] Main Operating Room Received: 09/06/2022 1352 Pathologist: Sari Coyne MD Specimens: A) - Lymph Node Station 2L, 2L B) - Lymph Node Station 7, station 7 Performed By: #### L AB13 #### [facility] [address] [place] [place] [address] LAB AP CLINICAL INFORMATION Order Diagnoses [facility] Comment on above: Result Comment: C34. 92 - Primary adenocarcinoma of left lung (CMS/HCC) [ICD-10-CM] Performed By: #### L AB13 #### [facility] [address] [place] [address] LAB AP GROSS DESCRIPTION [facility] Comment on above: Result Comment: A) 3 air-dried slides, 3 alcohol-fixed slides, 30 mL CytoLyt with clear colorless fluid B) 2 air-dried slides, 2 alcohol-fixed slides, 30 mL CytoLyt with pink cloudy fluid Performed By: #### L AB13 #### [facility] [address] [place] [place] [address] LAB AP INTRAOPERATIVE CONSULTATION [facility] Comment on above: Result Comment: [...] submitted.* Performed By: #### L AB13 #### [facility] [address] [place] [address] LAB AP REPORT FINAL DIAGNOSIS NARRATIVE [facility] Comment on above: Result Comment: A. L ymph node, 2L, fine needle aspiration: - Non-diagnostic due to scant cellularity - No cellular evidence of lymph node B. Lymph node, station 7, fine needle aspiration: - Negative for malignancy - Cellular evidence of lymph node Performed By: #### L AB13 #### [facility] [address] [place] [address] POCT GLUCOSE METER UNSOLICIT ED RESULTSon 09-06-2022 Glucose [Mass/Vol] 133 mg/dL High 70-105 [facility] Comment on above: Order Comment: Waive d Testing in the ED is performed under the ED CLIA certificate #[id number]. Result Comment: [email or web address] Performed By: #### L [id number] #### [facility]) [address] [place] [address] [id number] 08-30-2022 [id number] Nothing to Eat or Drink, including Candy, [...] THE FOLLOWING ARE NOT AVAILABLE: An adult dedicated driver over the age of 18, that [...] lenses. Do not wear perfume, make-up, nail somali, or lotions on the day of your [...] need to make any changes, please call [phone]. Notify your surgeon if you develop any illness such as a cold, cough, fever, sore throat or vomiting between now and your surgery. Thank you for entrusting us with your care. [facility] Surgical Services Team Normal [facility] Prep for Procedureon 023 Prep for Procedure [id number] Brigette Grajeda 1960 M Date Provider Department Center 08/30/2022 [facility]INYERE [facility] Family History Family history unknown: Yes Normal [facility] Annalisa 08-26-2022 NOLVIA Telephone (PARAMJIT) JARET GRAJEDA ([id number]) 1960 M Date Time Provider Department 08/26/22 DELFINA BLUE During your visit today, we recorded the following information about you: Jeremiah Gibbs 09/01/2022 10:10 AM Addendum LOCAL PATIENT Received Fax from Dr. Wade Grajeda is being referred to Delfina Blue MD, PhD or Zbigniew Wilkinson M.D. by Wade Jones Sr, MD [address] [facility] [place] [address] Patient diagnosis/Reason for consult: Lung Cancer Referral triage process explained: Yes Patient will receive a call from Thoracic NPM after triage review with surgeon to discuss any additional testing and/or consults that will be scheduled. Pt will then receive a call from our scheduling office for scheduling. Please call pt at [phone]. Patient was informed consultation could be at [place] or [facility] [place]: No Patient Registration: Registration complete/updated: Yes Insurance card(s) scanned in [facility] with in the past year: Yes: Date: 08/26/22 Pt's MyChart is Pending. Ok to communicate to pt via Syn[employer] Oy not asked Medical Records: Records in [facility] (internal CC records): No Imaging in [facility] (internal CC records): No Care Everywhere - queried yes, downloaded Yes Linked Outside Organizations (list):[facility] Records Requested: yes Date: August 26, 2022 Outside Hospital(s) requested records from: Dr. Wade Jones, Dr. Garber Received: Yes Uploaded: Yes. Waiting on additional records: No. Missing (list): n/a OS Pathology Slides Requested: no Date: N/A Outside Hospital(s) slides requested from: n/a OS Radiology Imaging Requested: yes Date: August 26, 2022 Outside Hospital(s) requested imaging from: [facility]. Imaging will be received via Electronic Transfer Received: Yes Imaging uploaded: Yes Waiting on additional: No. Missing (list): n/a Additional providers added to Care Teams: Yes Additional Notes/Comments: n/a Enct routed to: Thoracic NPM for Triage Jeremiah Gibbs, credit administration officer Socrates Pastor RN 09/09/2022 3:55 PM Signed Thoracic Surgery Consultation - review of records for appointment scheduling Received medical records from the office of Wade Jones Sr, MD [address] [facility] [place] [address] Patient is being referred to Unspecified/First Available by Wade Luciano House Sr. for Lung Cancer Outside hospital records scanned /Care Everywhere Pathology: 09/06 ebus Final Diagnosis A. Lymph node, 2L, fine needle aspiration: - Non-diagnostic due to scant cellularity - No cellular evidence of lymph node B. Lymph node, station 7, fine needle aspiration: - Negative for malignancy - Cellular evidence of lymph node Procedures: 09/06 [facility] 08/13/22 ct guided bx Imaging . PET/CT: [...] min walk Socrates Pastor RN Referring Provider: KAREN CHUNG, WADE WOLF [[id number]] Allergies As of Date: 08/26/2022 (Not on File) Date Reviewed: Never Reviewed Reason for Visit: External Referrals/resources [909] Consult [173] Primary Visit Diagnosis:Malignant neoplasm of left lung, unspecified part of lung (HCC) [C34.92] Order(s):SPIROMETRY BASELINE ONLY [7127797] Order #: [id number]: 1 FUTURE LUNG DIFFUSION CAPACITY (DLCO) [[id number]] Order #: [id number]: 1 FUTURE SIX MINUTE WALK [[id number]] Order #: [id number]: 1 FUTURE Problem List As Of Date: 08/26/2022 (None) Encounter Status:Closed by SOCRATES PASTOR on 09/09/22 [facility] Annalisa 08-25-2022 CNPN Telephone (NCCAP) JARET GRAJEDA ([id number]) 1960 M Date Time Provider Department 08/25/22 DON MEJIA During your visit today, we recorded the following information about you: Purnima Hayes 08/25/2022 8:24 AM Signed Called patient X 2 to schedule appointments for here, left messages both days Allergies As of Date: 08/25/2022 (Not on File) Date Reviewed: Never Reviewed Reason for Visit: Appointment Confirmation [[id number]] Problem List As Of Date: 08/25/2022 (None) Encounter Status:Closed by PURNIMA HAYES on 08/25/22 [facility] HPon 08-19-2022 HP - Attestation signed by [...] Age: 62 y.o. : 1960 Account No.: [id number] Referring physician: Chief complaint: Lung mass, newly [...] BICARB, CO2, CO2, PH, PH, PHART, PHVEN, ULV9OEO, FLI8DEN, PNY6SXE, PO2POC, PO2ART, PO2VEN, RDS5XFN, XMF9SNC Radiology: No Chest X-ray results found for [...] was initiated by the patient and conducted ico-ijsj-ut-face with use of audio-only real time telephone communication between patient and provider for a virtual visit. Verbal consent to provide and bill for this service was obtained No signature was obtained due to the COVID-19 pandemic. 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 CT of chest done 07-27-22. Films in EPIC Normal [facility] Orders Onlyon 08-18-2022 Orders Only [id number] Brigette Grajeda 1960 M Date Provider Department Center 08/18/2022 FRANCA HOWARD [facility] ONC DCC Family History Family history unknown: Yes Normal [facility] CARDIAC ARIANE ADMITon 022 CK [Catalytic activity/Vol] 140 U/L Normal 39-308 [facility] Comment on above: Performed By: #### E TH, CMP, CMADM ####[facility] [address] [place], [place] [address]RsKeshawn Uribe CK.MB [Mass/Vol] 2.29 ng/mL Normal <=3.60 [facility] Comment on above: Performed By: #### E TH, CMP, CMADM ####[facility] [address] [place], [place] [address]KaDr. Dalton Uribe HSTROP 9.7 pg/mL Normal 4.0-76.1 [facility] Comment on above: Result Comment: CUT- OFF POINTS HAVE BEEN ESTABLISHED BASED ON THE FOURTH UNIVERSAL DEFINITIONS OF MYOCARDIAL INFARCTION. THE UPPER REFERENCE LIMIT (URL) OF TROPONIN, DEFINED THE 99TH PERCENTILE OF cTnI DISTRIBUTION IN A REFERENCE POPULATION, HAS BEEN CONFIRMED THE DECISION THRESHOLD FOR RI DIAGNOSIS. Performed By: #### E TH, CMP, CMADM ####[facility] [address] [place], [place] [address]HpKeshawn Uribe ARASH 43 ng/mL Normal 16-96 [facility] Comment on above: Performed By: #### E TH, CMP, CMADM ####[facility] [address] [place], [place] [address]RlDr. Dalton Uribe CBC AUTO DIFFon 06-19-2021 BASO # 0.0 103/ul Normal 0.0-0.1 [facility] Comment on above: Performed By: #### C BC #### [facility] [address] [place], [place] [address] Dr. Dalton Uribe Basophils/100 WBC (Bld) 0.3 % Normal 0.2-2.0 [facility] Comment on above: Performed By: #### C BC #### [facility] [address] [place] [address] Dr. Dalton Uribe EO # 0.0 103/ul Normal 0.0-0.7 [facility] Comment on above: Performed By: #### C BC #### [facility] [address] [place] [address] Dr. Dalton Uribe Eosinophils/100 WBC (Bld) 0.1 % Critically low 0.9-7.0 [facility] Comment on above: Performed By: #### C BC #### [facility] [address] [place] [address] Dr. Dalton Uribe Erythrocyte distribution width (RBC) [Ratio] 12.5 % Normal 11.0-15.0 [facility] Comment on above: Performed By: #### C BC #### [facility] [address] [place] [address] Dr. Dalton Uribe Hematocrit (Bld) [Volume fraction] 39.5 % Critically low 42.0-54.0 [facility] Comment on above: Performed By: #### C BC #### [facility] [address] [place] [address] Dr. Dalton Uribe Hemoglobin (Bld) [Mass/Vol] 13.9 g/dL Critically low 14.0-18.0 [facility] Comment on above: Performed By: #### C BC #### [facility] [address] [place] [address] Dr. Dalton Uribe IG # 0.03 10e3/ul Normal 0.00-0.03 [facility] Comment on above: Performed By: #### C BC #### [facility] [address] [place] [address] Dr. Dalton Uribe IG % 0.3 % Normal 0.0-0.5 [facility] Comment on above: Performed By: #### C BC #### [facility] [address] [place] [address] Dr. Dalton Uribe LYMPH # 1.1 103/ul Critically low 1.2-3.8 [facility] Comment on above: Performed By: #### C BC #### [facility] [address] [place] [address] [address] Dalton Uribe Lymphocytes/100 WBC (Bld) 10.1 % Critically low 20.5-60.0 [facility] Comment on above: Performed By: #### C BC #### [facility] [address] [place] [address] [address] Dalton Uribe MANUAL DIFF REQ NO Normal [facility] Comment on above: Performed By: #### C BC #### [facility] [address] [place] [address] [address] Dalton Uribe MCH (RBC) [Entitic mass] 33.3 pg Normal 25.9-34.0 [facility] Comment on above: Performed By: #### C BC #### [facility] [address] [place] [address] Dr. Dalton Uribe MCHC (RBC) [Mass/Vol] 35.2 g/dL Normal 29.9-35.2 [facility] Comment on above: Performed By: #### C BC #### [facility] [address] [place] [address] Dr. Dalton Uribe MCV (RBC) [Entitic vol] 94.7 fL Critically high 80.0-94.0 [facility] Comment on above: Performed By: #### C BC #### [facility] [address] [place] [address] Dr. Dalton Uribe MONO # 1.0 103/ul Critically high 0.3-0.8 [facility] Comment on above: Performed By: #### C BC #### [facility] [address] [place] [address] Dr. Dalton Uribe Monocytes/100 WBC (Bld) 9.1 % Normal 1.7-12.0 [facility] Comment on above: Performed By: #### C BC #### [facility] [address] [place] [address] Dr. Dalton Uribe NEUT # 8.7 103/ul Critically high 1.4-6.5 [facility] Comment on above: Performed By: #### C BC #### [facility] [address] [place] [address] [address] Dalton Uribe Neutrophils/100 WBC (Bld) 80.1 % Critically high 43.0-75.0 [facility] Comment on above: Performed By: #### C BC #### [facility] [address] [place] [address] [address] Dalton Uribe Platelet mean volume (Bld) [Entitic vol] 10.0 fL Normal 9.5-13.5 [facility] Comment on above: Performed By: #### C BC #### [facility] [address] [place] [address] [address] Dalton Uribe PLT 133 103/ul Critically low 150-450 [facility] Comment on above: Result Comment: few giant plts and large plts seen Performed By: #### C BC #### [facility] [address] [place] [address] Dr. Dalton Uribe RBC 4.17 106/ul Critically low 4.70-6.10 [facility] Comment on above: Performed By: #### C BC #### [facility] [address] [place] [address] [address] Dalton Uribe WBC 10.9 103/ul Normal 4.0-11.0 [facility] Comment on above: Performed By: #### C BC #### [facility] [address] [place] [address] HEAD WO CONon [...] HUBER STACY Date: 2021-06-19 12:16 Normal [facility] ETHANOL (BLD ALC)on 06-20-19 22 ALC NOTE NOTE: 80 mg/dl is th e legal limit for a blood alcohol level Normal [facility] Comment on above: Performed By: #### E TH, CMP, CMADM ####[facility] [address] [place] [address]Dr. Dalton Uribe Ethanol [Mass/Vol] mg/dL Normal [facility] Comment on above: Performed By: #### E TH, DEREK, CMADM ####[facility] [address] [place] [address]Dr. Dalton Uribe PROF 14(COMP METB)on 022 Albumin [Mass/Vol] 3.8 g/dL Normal 3.4-5.0 [facility] Comment on above: Performed By: #### E TH, DEREK, CMADM ####[facility] [address] [place] [address]Dr. Dalton Uribe Albumin/Globulin [Mass ratio] 1.0 {ratio} Normal [facility] Comment on above: Performed By: #### E TH, CMP, CMADM ####[facility] [address] [place] [address]Dr. Dalton Uribe ALP [Catalytic activity/Vol] 88 U/L Normal 46-116 [facility] Comment on above: Performed By: #### E TH, CMP, CMADM ####[facility] [address] [place] [address]Dr. Dalton Uribe ALT [Catalytic activity/Vol] 64 U/L Critically high 16-63 [facility] Comment on above: Performed By: #### E TH, CMP, CMADM ####[facility] [address] [place] [address]Dr. Dalton Uribe Anion gap [Moles/Vol] 16.0 mmol/L Normal [facility] Comment on above: Performed By: #### E , CMP, CMADM ####[facility] [address] [place] [address]Dr. Dalton Uribe AST [Catalytic activity/Vol] 65 U/L Critically high 15-37 [facility] Comment on above: Performed By: #### E TH, CMP, CMADM ####[facility] [address] [place] [address]Dr. Dalton Uribe Bilirubin [Mass/Vol] 1.3 mg/dL Critically high 0.2-1.0 [facility] Comment on above: Performed By: #### E , CMP, CMADM ####[facility] [address] [place], [place] [address]Dr. Dalton Uribe Calcium [Mass/Vol] 9.1 mg/dL Normal 8.5-10.1 [facility] Comment on above: Performed By: #### E , CMP, CMADM ####[facility] [address] [place], [place] [address]Dr. Dalton Uribe Chloride [Moles/Vol] 92 mmol/L Critically low 98-107 [facility] Comment on above: Performed By: #### E , CMP, CMADM ####[facility] [address] [place], [place] [address]Dr. Dalton Uribe CO2 [Moles/Vol] 25.4 mmol/L Normal 21.0-32.0 [facility] Comment on above: Performed By: #### E , CMP, CMADM ####[facility] [address] [place], [place] [address]Dr. Dalton Uribe Creatinine [Mass/Vol] 0.85 mg/dL Normal 0.70-1.30 [facility] Comment on above: Performed By: #### E , CMP, CMADM ####[facility] [address] [place], [place] [address]Dr. Dalton Uribe EGFR-AF FIJIAN >60 Normal >=60 [facility] Comment on above: Performed By: #### E , CMP, CMADM ####[facility] [address] [place] [address]Dr. Dalton Uribe EGFR-NON AF FIJIAN >60 Normal >=60 [facility] Comment on above: Performed By: #### E , CMP, CMADM ####[facility] [address] [place] [address]Dr. Dalton Uribe Globulin (S) [Mass/Vol] 3.7 g/dL Normal [facility] Comment on above: Performed By: #### E , CMP, CMADM ####[facility] [address] [place] [address]Dr. Dalton Uribe Glucose [Mass/Vol] 106 mg/dL Normal 74-106 [facility] Comment on above: Performed By: #### E , CMP, CMADM ####[facility] [address] [place] [address]Dr. Emmamarbella Uribe Potassium [Moles/Vol] 3.4 mmol/L Critically low 3.5-5.1 [facility] Comment on above: Performed By: #### E , CMP, CMADM ####[facility] [address] [place] [address]Dr. Dalton Uribe Protein [Mass/Vol] 7.5 g/dL Normal 6.4-8.2 [facility] Comment on above: Performed By: #### E , CMP, CMADM ####[facility] [address] [place] [address]Dr. Dalton Uribe Sodium [Moles/Vol] 130 mmol/L Critically low 136-145 [facility] Comment on above: Performed By: #### E , CMP, CMADM ####[facility] [address] [place] [address]Dr. Dalton Uribe Urea nitrogen [Mass/Vol] 10.0 mg/dL Normal 7.0-18.0 [facility] Comment on above: Performed By: #### E , CMP, CMADM ####[facility] [address] [place] [address]Dr. Dalton Uribe Urea nitrogen/Creatinine [Mass ratio] 11.8 mg/mg Normal [facility] Comment on above: Performed By: #### E TH, CMP, CMADM ####[facility] [address] [place] [id number]. Dalton Uribe XR CHEST 1 Von 06-19-2021 [...] exclude a mass Electronically authenticated by: ANNE GAUDALUPE Date: 2021-06-19 12:27 Normal [facility] CBC AUTO DIFFon 06-18-2021 BASO # 0.0 103/ul Normal 0.0-0.1 [facility] Comment on above: Performed By: #### C BC ####[facility] [address] [place] [address]Dr. Dalton Uribe Basophils/100 WBC (Bld) 0.3 % Normal 0.2-2.0 [facility] Comment on above: Performed By: #### C BC ####[facility] [address] [place] [address]Dr. Dalton Uribe EO # 0.0 103/ul Normal 0.0-0.7 [facility] Comment on above: Performed By: #### C BC ####[facility] [address] [place] [address]Dr. Dalton Uribe Eosinophils/100 WBC (Bld) 0.1 % Critically low 0.9-7.0 [facility] Comment on above: Performed By: #### C BC ####[facility] [address] [place] [address]Dr. Dalton Uribe Erythrocyte distribution width (RBC) [Ratio] 12.7 % Normal 11.0-15.0 [facility] Comment on above: Performed By: #### C BC ####[facility] [address] [place] [address]Dr. Dalton Uribe Hematocrit (Bld) [Volume fraction] 42.5 % Normal 42.0-54.0 [facility] Comment on above: Performed By: #### C BC ####[facility] [address] [place] [address]Dr. Dalton Rony Hemoglobin (Bld) [Mass/Vol] 14.6 g/dL Normal 14.0-18.0 [facility] Comment on above: Performed By: #### C BC ####[facility] [address] [place] [address]DrKeshawn Dalton Rony IG # 0.04 10e3/ul Critically high 0.00-0.03 [facility] Comment on above: Performed By: #### C BC ####[facility] [address] [place], [place] [address]Dr. Dalton Uribe IG % 0.4 % Normal 0.0-0.5 [facility] Comment on above: Performed By: #### C BC ####[facility] [address] [place] [address]DrKeshawn Dalton Rony LYMPH # 1.1 103/ul Critically low 1.2-3.8 [facility] Comment on above: Performed By: #### C BC ####[facility] [address] [place] [address]DrKeshawn Uribe Lymphocytes/100 WBC (Bld) 10.6 % Critically low 20.5-60.0 [facility] Comment on above: Performed By: #### C BC ####[facility] [address] [place] [address]DrKeshawn Emmamarbella Uribe MANUAL DIFF REQ NO Normal [facility] Comment on above: Performed By: #### C BC ####[facility] [address] [place] [address]DrKeshawn Uribe MCH (RBC) [Entitic mass] 32.7 pg Normal 25.9-34.0 [facility] Comment on above: Performed By: #### C BC ####[facility] [address] [place] [id number]. Dalton Rony MCHC (RBC) [Mass/Vol] 34.4 g/dL Normal 29.9-35.2 [facility] Comment on above: Performed By: #### C BC ####[facility] [address] [place] [address]Dr. Dalton Uribe MCV (RBC) [Entitic vol] 95.3 fL Critically high 80.0-94.0 [facility] Comment on above: Performed By: #### C BC ####[facility] [address] [place] [address]Dr. Dalton Uribe MONO # 1.0 103/ul Critically high 0.3-0.8 [facility] Comment on above: Performed By: #### C BC ####[facility] [address] [place], [place] [address]Dr. Dalton Uribe Monocytes/100 WBC (Bld) 9.9 % Normal 1.7-12.0 [facility] Comment on above: Performed By: #### C BC ####[facility] [address] [place], [place] [address]Dr. Dalton Uribe NEUT # 8.1 103/ul Critically high 1.4-6.5 [facility] Comment on above: Performed By: #### C BC ####[facility] [address] [place], [place] [address]Dr. Dalton Uribe Neutrophils/100 WBC (Bld) 78.7 % Critically high 43.0-75.0 [facility] Comment on above: Performed By: #### C BC ####[facility] [address] [place] [address]DrKeshawn Uribe Platelet mean volume (Bld) [Entitic vol] 9.6 fL Normal 9.5-13.5 [facility] Comment on above: Performed By: #### C BC ####[facility] [address] [place] [address]DrKeshawn Uribe PLT 152 103/ul Normal 150-450 [facility] Comment on above: Performed By: #### C BC ####[facility] [address] [place], [place] [address]HaDr. Dalton Uribe RBC 4.46 106/ul Critically low 4.70-6.10 [facility] Comment on above: Performed By: #### C BC ####[facility] [address] [place], [place] [address]JfDr. Dalton Uribe WBC 10.2 103/ul Normal 4.0-11.0 [facility] Comment on above: Performed By: #### C BC ####[facility] [address] [place], [place] [address]ZrDr. Dalton Uribe PROF 14(COMP METB)on 022 Albumin [Mass/Vol] 4.0 g/dL Normal 3.4-5.0 [facility] Comment on above: Performed By: #### T SH, T4, CMP #### [facility] [address] [place] [address] [address] Dalton Uribe Albumin/Globulin [Mass ratio] 1.1 {ratio} Normal [facility] Comment on above: Performed By: #### T SH, T4, CMP #### [facility] [address] [place] [address] [address] Dalton Uribe ALP [Catalytic activity/Vol] 88 U/L Normal 46-116 [facility] Comment on above: Performed By: #### T SH, T4, CMP #### [facility] [address] [place] [address] [address] Dalton Uribe ALT [Catalytic activity/Vol] 74 U/L Critically high 16-63 [facility] Comment on above: Performed By: #### T SH, T4, CMP #### [facility] [address] [place] [address] [address] Dalton Uribe Anion gap [Moles/Vol] 17.1 mmol/L Normal [facility] Comment on above: Performed By: #### T SH, T4, CMP #### [facility] [address] [place] [address] [address] Dalton Uribe AST [Catalytic activity/Vol] 73 U/L Critically high 15-37 [facility] Comment on above: Performed By: #### T SH, T4, CMP #### [facility] [address] [place] [address] Dr. Dalton Uribe Bilirubin [Mass/Vol] 1.8 mg/dL Critically high 0.2-1.0 [facility] Comment on above: Performed By: #### T SH, T4, CMP #### [facility] [address] [place] [address] Dr. Dalton Uribe Calcium [Mass/Vol] 9.1 mg/dL Normal 8.5-10.1 [facility] Comment on above: Performed By: #### T SH, T4, CMP #### [facility] [address] [place] [address] Dr. Dalton Uribe Chloride [Moles/Vol] 95 mmol/L Critically low 98-107 [facility] Comment on above: Performed By: #### T SH, T4, CMP #### [facility] [address] [place] [address] Dr. Dalton Uribe CO2 [Moles/Vol] 26.5 mmol/L Normal 21.0-32.0 [facility] [place] [facility] Comment on above: Performed By: #### T SH, T4, CMP #### [facility] [address] [place] [address] Dr. Dalton Uribe Creatinine [Mass/Vol] 0.88 mg/dL Normal 0.70-1.30 [facility] Comment on above: Performed By: #### T SH, T4, CMP #### [facility] [address] [place] [address] Dr. Dalton Uribe EGFR-AF FIJIAN >60 Normal >=60 [facility] Comment on above: Performed By: #### T SH, T4, CMP #### [facility] [address] [place] [address] Dr. Dalton Uribe EGFR-NON AF FIJIAN >60 Normal >=60 [facility] Comment on above: Performed By: #### T SH, T4, CMP #### [facility] [address] [place] [address] Dr. Dalton Uribe Globulin (S) [Mass/Vol] 3.8 g/dL Normal [facility] Comment on above: Performed By: #### T SH, T4, CMP #### [facility] [address] [place] [address] Dr. Dalton Uribe Glucose [Mass/Vol] 115 mg/dL Critically high 74-106 [facility] Comment on above: Performed By: #### T SH, T4, CMP #### [facility] [address] [place] [address] Dr. Dalton Uribe Potassium [Moles/Vol] 3.6 mmol/L Normal 3.5-5.1 [facility] Comment on above: Performed By: #### T SH, T4, CMP #### [facility] [address] [place] [address] Dr. Daltno Uribe Protein [Mass/Vol] 7.8 g/dL Normal 6.4-8.2 [facility] Comment on above: Performed By: #### T SH, T4, CMP #### [facility] [address] [place] [address] Dr. Dalton Uribe Sodium [Moles/Vol] 135 mmol/L Critically low 136-145 [facility] Comment on above: Performed By: #### T SH, T4, CMP #### [facility] [address] [place] [address] Dr. Dalton Uribe Urea nitrogen [Mass/Vol] 8.0 mg/dL Normal 7.0-18.0 [facility] Comment on above: Performed By: #### T SH, T4, CMP #### [facility] [address] [place] [address] Dr. Dalton Uribe Urea nitrogen/Creatinine [Mass ratio] 9.1 mg/mg Normal [facility] Comment on above: Performed By: #### T SH, T4, CMP #### [facility] [address] [place] [address] Dr. Dalton Uribe T4on 06-18-2021 T4 [Mass/Vol] 8.10 ug/dL Normal 4.50-12.[address] [facility] Comment on above: Performed By: #### T SH, T4, CMP #### [facility] [address] [address] [address] Dalton Uribe TSHon 06-18-2021 TSH 1.856 uIU/mL Normal 0.358-3.[address] [facility] Comment on above: Performed By: #### T SH, T4, CMP #### [facility] [address] [address] [address] Dalton Uribe TSH RANGE SEE BELOW Normal [facility] Comment on above: Result Comment: <0.3 4 UIU/ml HYPERTHYROID 0.34-5.60 UIU/ml EUTHYROID >5.60 UIU/ml HYPOTHYROID Performed By: #### T SH, T4, CMP #### [facility] [address] [place] [address] Dr. Dalton Uribe Vital Signs Date Time Vital Sign Value Performing Clinician Faci lity 04-08-2023 10:28-0500 Body temperature 97.2 [degF] Don Mejia MD Work Phone: [facility] 04-08-2023 10:28-0500 Body weight 71.8 kg Don Mejia MD Work Phone: [facility] 04-08-2023 10:28-0500 Diastolic blood pressure 93 mm[Hg] Don Mejia MD Work Phone: [facility] 04-08-2023 10:28-0500 Heart rate 69 /min Don Mejia MD Work Phone: [facility] 04-08-2023 10:28-0500 Respiratory rate 18 /min Don Mejia MD Work Phone: [facility] 04-08-2023 10:28-0500 SaO2% (BldA) [Mass fraction] 99 % Don Mejia MD Work Phone: [facility] 04-08-2023 10:28-0500 Systolic blood pressure 164 mm[Hg] Don Mejia MD Work Phone: [facility] 10-14-2022 12:00-0400 Body height 173 cm Pultremayne Scott Work Phone: [facility] 10-14-2022 12:00-0400 Body weight 73.48 kg Pultremayne Scott Work Phone: [facility] 09-27-2022 09:00-0400 Body height 175.3 cm Don Mejia MD Work Phone: [facility] 09-27-2022 09:00-0400 Body temperature 97.39 [degF] Don Mejia MD Work Phone: [facility] 09-27-2022 09:00-0400 Body weight 74.21 kg Don Mejia MD Work Phone: [facility] 09-27-2022 09:00-0400 Diastolic blood pressure 118 mm[Hg] Don Mejia MD Work Phone: [facility] 09-27-2022 09:00-0400 Heart rate 78 /min Don Mejia MD Work Phone: [facility] 09-27-2022 09:00-0400 Respiratory rate 18 /min Don Mejia MD Work Phone: [facility] 09-27-2022 09:00-0400 SaO2% (BldA) [Mass fraction] 98 % Don Mejia MD Work Phone: [facility] 09-27-2022 09:00-0400 Systolic blood pressure 194 mm[Hg] Don Mejia MD Work Phone: [facility] Encounters Encounter Date Encounter Type Care Provider Facility Start: 08-18-2023 End: 08-18-2023 ambulatory KOSTAS MORALES Not Available Start: 06-29-2023 End: 06-29-2023 ambulatory WADE JONES SR Facility:[facility] Start: 06-16-2023 Telephone encounter Don Mejia MD Work Phone: Radiation Oncology Comment on above: Future Appointment Start: 04-08-2023 End: 04-08-2023 ambulatory DON MEJIA Facility:[facility] Start: 04-08-2023 End: 04-08-2023 Patient encounter procedure Don Mejia MD Work Phone: Radiation Oncology Comment on above: Malignant neoplasm o f upper lobe of left lung (HCC) (Primary Dx) Start: 03-31-2023 End: 03-31-2023 ambulatory WADE JONES SR Facility:[facility] Start: 03-24-2023 Telephone encounter Don Mejia MD Work Phone: Radiation Oncology Comment on above: Patient Update (Post Radiation Treatment Nurse Call ) Start: 03-11-2023 Telephone encounter Don Mejia MD Work Phone: Radiation Oncology Comment on above: Orders Start: 03-07-2023 End: 03-07-2023 ambulatory WADE JONES SR Facility:[facility] Start: 03-07-2023 Patient encounter procedure Don Mejia MD Work Phone: [facility] Start: 03-07-2023 Radiation Oncology Note Don carter MD Work Phone: Radiation Oncology Comment on above: Completion Note Start: 03-04-2023 End: 03-04-2023 ambulatory DON MEJIA Facility:[facility] Start: 03-02-2023 End: 03-02-2023 ambulatory DON MEJIA Facility:[facility] Start: 02-28-2023 End: 02-28-2023 ambulatory DON MEJIA Facility:[facility] Start: 02-11-2023 Patient encounter procedure Don Mejia MD Work Phone: [employer] Start: 02-11-2023 Radiation Oncology Note Don carter MD Work Phone: Radiation Oncology Comment on above: Treatment Planning Start: 02-11-2023 End: 02-11-2023 ambulatory DON MEJIA Facility:[facility] Start: 02-11-2023 End: 02-11-2023 Subsequent hospital visit by physician Don Mejia MD Work Phone: Radiology [facility] Start: 01-24-2023 End: 01-24-2023 ambulatory WADE JONES SR Facility:[facility] Start: 01-24-2023 End: 01-24-2023 Subsequent hospital visit by physician Arrival Time Radiology Work Phone: Radiology [facility] CT Comment on above: Malignant neoplasm o f upper lobe of left lung (HCC) [C34.12] Start: 01-13-2023 Telephone encounter Delfina koehler MD, PhD Work Phone: [facility] Comment on above: Received Outside Med ical Records Start: 01-05-2023 Telephone encounter [facility] Comment on above: Appointment Confirma tion Start: 12-23-2022 End: 12-23-2022 ambulatory Delfina Blue MD, PhD Work Phone: [facility] Comment on above: Personal history of malignant neoplasm of bronchus and lung (Primary Dx) Start: 12-23-2022 End: 12-23-2022 Telemedicine consultation with patient Delfina Blue MD, PhD Work Phone: [facility] Start: 12-09-2022 End: 12-09-2022 ambulatory DELFINA BLUE Facility:[facility] Start: 12-09-2022 Encounter for other preprocedural examination DELFINA BLUE [facility] Start: 10-18-2022 Telephone encounter Don Mejia MD Work Phone: Radiation Oncology Comment on above: Future Appointment Start: 10-14-2022 End: 10-14-2022 ambulatory WADE JONES Pulmonology Comment on above: Spirometry Start: 10-14-2022 End: 10-14-2022 Patient encounter procedure [facility] Work Phone: [facility] Start: 09-27-2022 End: 09-27-2022 ambulatory Lili Martinez LPN Radiation Oncology Comment on above: Patient Education Start: 09-27-2022 Telephone encounter Don Mejia MD [facility] Comment on above: FYI-No Action [...] above: Appointment Start: 09-06-2022 End: 09-07-2022 ambulatory [facility] Start: 09-03-2022 End: 09-04-2022 ambulatory [facility] Start: 08-26-2022 Telephone encounter Delfina koehler MD, PhD Work Phone: [facility] Comment on above: External Referrals/r esources; Consult Start: 08-19-2022 ambulatory [facility] Start: 08-18-2022 End: 08-19-2022 ambulatory [facility] Start: 08-17-2022 End: 08-18-2022 ambulatory [facility] Start: 05-26-2022 End: 05-27-[address] ANNE GUADALUPE Facility:[facility] Start: 04-13-2022 End: 04-14-2022 ambulatory LAISHA HOUSE Facility:[facility] Start: 03-30-2022 End: 03-31-2022 ambulatory LAISHA HOUSE Facility:[facility] Start: 03-23-2022 End: 03-23-2022 ambulatory NICHOLE HERNANDES . Facility:[facility] Start: 01-19-[address] WADE JONES Facili ty:[facility] Start: 06-19-2021 End: 06-19-2021 ambulatory SEN PINEDA . Facility:[facility] Start: 06-18-2021 End: 06-19-[address] AWDE JONES Facility:[facility] Procedures Date Procedure Procedure Detail Performing Clinician Start: 01-24-[address] atten uation skull base mid-thigh Don Mejia MD Work Phone: Start: 01-24-2023 Ct thorax w/contrast material Don Mejia MD Work Phone: Start: 01-24-2023 Gluc bld gluc mntr d ev cleared fda spec home use [facility] Provider Start: 01-24-2023 CREATININE BLD Don segovia MD Work Phone: Start: 10-14-2022 End: 10-14-2022 Co diffusing capacity Delfina Blue MD, PhD Work Phone: Plan of Treatment Date Care Activity Detail Author Start: 10-09-2023 Covid-19 Vaccine () Covid-19 Vaccine () [facility] Start: 10-09-2023 Influenza vaccination C [facility] Start: 07-22-2023 Advance Directive Discussion Advance Directive Discussion [facility] Start: 07-11-2023 End: 07-11-2023 Patient encounter procedure 07/11/2023 2:00 PM EDT Office Visit Radiation Oncology [address] [place] [address] Don Mejia MD [address] [place] [address] [facility] Comment on above: Followup after ct Start: 07-05-2023 End: 07-05-2023 Patient encounter procedure 07/05/2023 9:15 AM EDT Appointment [facility]iology [facility] [address] [place] [address] [address] Comment on above: CT chest Start: 06-09-2023 End: 09-08-2023 CREATININE BLD CREATININE BLD Lab Routine Neoplasm of lung Expected: 06/09/2023, Expires: 09/08/2023 [facility] Work Phone: Comment on above: Expected: 06/09/2023 , Expires: 09/08/2023 Start: 06-09-2023 End: 04-09-2024 CT CHEST W IVCON CT CHEST W IVCON Radiology Routine Neoplasm of lung Expected: 06/09/2023, Expires: 04/09/2024 [facility] Work Phone: Comment on above: Expected: 06/09/2023 , Expires: 04/09/2024 Start: 02-07-2023 Behavioral Health Screening Behavioral Health Screening [facility] Start: 02-07-2023 Depression Assessment [facility] Start: 10-08-2022 Covid-19 Vaccine () Covid-19 Vaccine () [facility] Start: 10-08-2022 Influenza vaccination C [facility] Start: 02-07-2022 [facility] Start: 12-22-2020 COVID-19 VACCINE (3 - Pfizer series) COVID-19 VACCINE (3 - Pfizer series) [facility] Start: 2018 RSV Vaccine (1 - 1-d ose 60+ series) RSV Vaccine (1 - 1-dose 60+ series) [facility] Start: 2013 PROSTATE CANCER SCREENING DISCUSSION PROSTATE CANCER SCREENING DISCUSSION [facility] Start: 2013 Prostate specific antigen measurement Prostate Cancer Screening Discussion [facility] Start: 2008 SHINGRIX VACCINE (1 of 2) SHINGRIX VACCINE (1 of 2) [facility] Start: 07-22-2003 COLOGUARD (FIT-DNA) COLOGUARD (FIT-D NA) [facility] Start: 07-22-2003 Colonoscopy COLONOSCOPY [facility] Start: 07-22-2003 COLORECTAL CANCER SCREENING COLORECTAL CANCER SCREENING [facility] Start: 07-22-[address] COLONOGRAPHY [facility] Start: 07-22-2003 DIABETES SCREEN DIABETES SCREEN [facility] Start: 07-22-2003 Diabetes Screening Diabetes Screenin g [facility] Start: 07-22-2003 FECAL OCCULT BLOOD FECAL OCCULT BLOO D [facility] Start: 07-22-2003 Screening for malign ant neoplasm of colon [facility] Start: 07-22-2003 [facility] Start: 1993 Lipid 1996 panel - S carol or Plasma Lipid Screening [facility] Start: 1993 Lipid panel Lipid Screening [facility] Start: 1993 LIPID SCREEN LIPID SCREEN [facility] Start: 1977 Urine microalbumin profile [facility] Start: 1976 Anxiety Screening Anxiety Screening [facility] Start: 1976 Depression Screening Depression Scre ening [facility] Start: 1976 HEPATITIS C SCREENING HEPATITIS C [facility] Start: 1976 Hepatitis C screening Hepatitis C [facility] Start: 1976 HIV SCREENING HIV SCREENING [facility] Start: 1976 HIV screening HIV Screening [facility] Start: 1964 PNEUMOCOCCAL (1 - PCV) PNEUMOCOCCAL (1 - PCV) [facility] Start: 1964 Pneumococcal vaccination [facility] Start: 1964 Pneumococcal Vaccine : 65+ (1 of 2 - PCV) Pneumococcal Vaccine: 65+ (1 of 2 - PCV) [facility] Start: 01-20-1959 COVID-19 VACCINE (#1) COVID-19 VACCI NE (#1) [facility] Start: 1958 Abdominal aortic aneurysm screening Abdominal Aortic Aneurysm Screening [facility] End: 10-09-2023 LUNG DIFFUSION CAPACITY (DLCO) LUNG DIFFUSION CAPACITY (DLCO) PFT Routine Malignant neoplasm of left lung, unspecified part of lung (HCC) 1 Occurrences starting 09/09/2022 until 10/09/2023 [facility] Work Phone: Comment on above: 1 Occurrences starti ng 09/09/2022 until 10/09/2023 LUNG DIFFUSION CAPAC ITY (DLCO) LUNG DIFFUSION CAPACITY (DLCO) PFT Routine Malignant neoplasm of left lung, unspecified part of lung (HCC) 10/14/2022 12:37 PM EDT [facility] Work Phone: End: 10-09-2023 SIX MINUTE WALK SIX MINUTE WALK PFT Routine Malignant neoplasm of left lung, unspecified part of lung (HCC) 1 Occurrences starting 09/09/2022 until 10/09/2023 [facility] Work Phone: Comment on above: 1 Occurrences starti ng 09/09/2022 until 10/09/2023 End: 10-09-2023 SPIROMETRY BASELINE ONLY SPIROMETRY BASELINE ONLY PFT Routine Malignant neoplasm of left lung, unspecified part of lung (HCC) 1 Occurrences starting 09/09/2022 until 10/09/2023 [facility] Work Phone: Comment on above: 1 Occurrences starti ng 09/09/2022 until 10/09/2023 SPIROMETRY BASELINE ONLY SPIROME TRY BASELINE ONLY PFT Routine Malignant neoplasm of left lung, unspecified part of lung (HCC) 10/14/2022 12:37 PM EDT [facility] Work Phone: [facility] Payers Date Payer Category Payer Medicare [id number] 2023 Unknown [id number] 2022 Unknown [id number] 1959 Self-pay 1959 Unknown [id number] 1958 Unknown [id number] 2.16.84 [id number] 1958 Unknown [id number] 2.16.84 [id number] 1958 Unknown [id number] 2.16.84 [id number] 1958 Unknown [id number] 2.16.84 [id number] 1958 Unknown [id number] 2.16.84 [id number] 1958 Unknown [id number] 2.16.84 [id number] 1958 Unknown [id number] 2.16.84 [id number] 1958 Unknown [id number] 2.16.84 [id number] Social History Date Type Detail Facility Tobacco smoking stat [facility] Tobacco smoking consumption unknown [facility] Start: 1960 Sex Assigned At Not on file C [facility] Start: 09-09-2022 End: 10-14-2022 Gender identity Not on file [facility] Start: 09-09-2022 End: 10-14-2022 History of Social function [facility] National Score (1-10 0), lower number is lower risk 59 [facility] Start: 09-27-2022 Tobacco smoking stat [facility] Smokes tobacco daily [facility] History of tobacco use Cigarette Smoker C [facility] Start: 09-27-2022 Tobacco use and exposure Smokeless t obacco non-user [facility] Start: 09-27-2022 End: 10-14-2022 Alcohol intake Current drinker of alcohol (finding) [facility] Start: 09-27-2022 Alcohol Comment [facility] Clinical Notes 03-23-2022 to 06-20-2023 Telephone Encounter - Purnima Hayes - 06/20/2023 8:27 AM EDTTelephone Encounter - Purnima Hayes - 06/20/2023 8:27 AM EDTTelephone Encounter - Cathy Jovel RN - 06/16/2023 11:47 AM EDT Note Date & Type Note Facility 06-20-2023 Telephone encounter Note Patient is r/s for both appts [facility] 06-20-2023 Miscellaneous Notes Patient is r/s for both appts I also called patient no answer to check on appointments. Call placed to patient due to him cancelling CT that was to be done prior to follow up for Tuesday. CAlled to check status and LM requesting pt CB to reschedule all appts. Cathy Jovel RN documented in this encounter [facility] 06-17-2023 Telephone encounter Note I also called patient no answer to check on appointments. [facility] 06-16-2023 Telephone encounter Note Call placed to patient due to him cancelling CT that was to be done prior to follow up for Tuesday. CAlled to check status and LM requesting pt CB to reschedule all appts. Cathy Jovel RN [facility] 04-09-2023 Note HNO ID: [id number] Author: DON MEJIA MD Service: ? Author Type: Physician Type: Progress Notes Filed: 04/19/2023 06:01 Note Text: Radiation Oncology - Follow Up Note PATIENT NAME: Jaret Grajeda PATIENT DIAGNOSIS/PATIENT IDENTIFICATION: Mr. Grajeda is a 62-year-old gentleman diagnosed with a Stage IB, [id number], non-small cell lung cancer (adenocarcinoma) arising from [...] result of the inadequacies/shortcomings of said technology/software. [facility] 04-08-2023 History of Present illness Narrative Radiation Oncology - Follow Up Note PATIENT NAME: Jaret Grajeda PATIENT Signed by: Don Mejia MD This document has been created with the use of voice recognition technology. It may contain inaccuracies, misspellings, inaccurate syntax or inappropriate word context that are a result of the inadequacies/shortcomings of said technology/software. documented in this encounter [facility] 03-24-2023 Miscellaneous Notes Call placed to pt to check status. He states he is doing very well. His breathing has maintained it's baseline and he denies any new issues. His energy levels are at his normal. Pt is scheduled for follow up on 04/[address]/FU in June. Cathy Jovel RN documented in this encounter [facility] 03-14-2023 Miscellaneous Notes Patient is scheduled CT chest due in 3 months is pending your approval. Lili Martinez RN documented in this encounter [facility] 03-07-2023 Note HNO ID: [id number] Author: DON MEJIA MD Service: ? Author Type: Physician Type: Progress Notes Filed: 03/17/2023 04:27 Note Text: [facility] Radiation Oncology Department RADIATION ONCOLOGY - SBRT COMPLETION NOTE PATIENT: JADA GRAJEDAOB: 1960 DATES OF TREATMENT: 02/28/23-03/07/23 DIAGNOSIS: Mr. Grajeda is a 62-year-old gentleman diagnosed with a Stage IB, [id number], non-small cell lung cancer (adenocarcinoma) arising from [...] scheduled. Staff Physician Don Mejia M.D. / DAI 44:27 AM Electronically Signed cc: Jennifer Garber MD [address] [facility] [place] [address] [address] [facility], DO [address] [facility] [address] [address] [facility] 03-07-2023 History of Present illness Narrative [facility] Radiation Oncology Department RADIATION ONCOLOGY - SBRT COMPLETION NOTE PATIENT: JADA GRAJEDAOB: 1960 DATES OF TREATMENT: 02/28/23-03/07/23 DIAGNOSIS: Mr. Grajeda is a 62-year-old gentleman diagnosed with a Stage IB, [id number], non-small cell lung cancer (adenocarcinoma) arising from [...] scheduled. Staff Physician Don Mejia M.D. / 44:27 AM Electronically Signed cc: Jennifer Garber MD [address] [facility] [address] [address] [facility], DO [address] [facility] [address] Via documented in this encounter [facility] 02-28-2023 Note HNO ID: [id number] Author: DON MEJIA MD Service: ? Author Type: Physician Type: Progress Notes Filed: 03/03/2023 06:54 Note Text: Radiation Oncology - On Treatment Review (OTR) Note PATIENT NAME: Jaret Grajeda PATIENT DIAGNOSIS: Mr. Grajeda is a 62-year-old gentleman diagnosed with a Stage IB, [id number], non-small cell lung cancer (adenocarcinoma) arising from [...] the course of treatment. Don Mejia MD [facility] 02-12-2023 Note HNO ID: [id number] Author: DON MEJIA MD Service: ? Author Type: Physician Type: Progress Notes Filed: 02/22/2023 04:26 Note Text: Radiation Oncology - Follow Up Note PATIENT NAME: Jaret Grajeda PATIENT DIAGNOSIS/PATIENT IDENTIFICATION: Mr. Grajeda is a 62-year-old gentleman diagnosed with Stage IB, [id number], non-small cell lung cancer (adenocarcinoma) arising from [...] cancer. He met with Dr. Blue at [facility] and was recommended a cardiac workup [...] low dose noncontrast CT scan IMPRESSION: Mr. Grajdea is a 62-year-old gentleman diagnosed with a Stage IB, [id number], non-small cell lung cancer (adenocarcinoma) arising from [...] a course of (more content not included)... [facility] 02-11-2023 Note HNO ID: [id number] Author: DON MEJIA MD Service: ? Author Type: Physician Type: Progress Notes Filed: 02/27/2023 15:22 Note Text: JARET GRAJEDA [id number] 02/11/2023 [facility] Department of Radiation Oncology Treatment Planning Note [...] Electronically Signed Don Mejia M.D. 43:22 PM [facility] 02-11-2023 Note HNO ID: [id number] Author: DON MEJIA MD Service: ? Author Type: Physician Type: Progress Notes Filed: 02/14/2023 22:39 Note Text: JARET GRAJEDA [id number] 02/11/2023 [facility] Department of Radiation Oncology SBRT CT Simulation Diagnosis/Disease:Malignant neoplasm of upper lobe, left bronchus or lungC34.12 Therapist: Mouna Yeboah Consent: Yes Area: LUNG Procedure: A time-out was conducted and recorded by the therapist. Patient simulated at [facility] for SBRT. Compression device in place, and a 4D CT was conducted. Position: SUPINE Thigh Positioner: 0 With Riser 1 Without Riser 1 Abdominal Cuff: SecureVac Cushion Index to Base @ 58 0 T-Vac Cushion Rt. Side Adjust 221 Tri-Vac Cushion Lt. side Adjust 160 [id number] Pump 160 [id number] Wingboard: Head Pad (B or F) :F [...] treatment planning. Electronically Signed DON MEJIA M.D. 410:39 PM [facility] 02-11-2023 History of Present illness Narrative JARET GRAJEDA [id number] 02/11/2023 [facility] Department of Radiation Oncology Treatment Planning Note [...] M.D. 43:22 PM documented in this encounter [facility] 01-24-2023 Note HNO ID: [id number] Author: Socrates Mills RT(R) Service: ? Author [...] RT Sharita(R) January 24, 2023 2:35 PM [facility] 01-24-2023 Note HNO ID: [id number] Author: Socrates Mills RT(R) Service: ? Author [...] 1035 PATIENT DISCHARGED TO: Ambulatory patient, left [place] department area. A Diagnostic radioactive procedure has taken place, with no further precautions necessary other than routine body substance precautions. More information regarding radiation safety can be found using this link: [email or web address] SIGNATURE: RT Sharita(R) PATIENT NAME: Jaret Grajeda DATE: January 24, 2023 TIME: 2:34 PM PAGER/CONTACT #: [facility] 01-24-2023 Note HNO ID: [id number] Author: Aide Levy RN Service: ? Author [...] DATE: January 24, 2023 TIME: 10:38 AM [place] [facility] 01-24-2023 History of Present illness Narrative Radiology Service Progress Note PATIENT NAME: Jaret [...] RT Sharita(R) January 24, 2023 2:35 PM documented in this encounter [facility] 01-24-2023 History of Present illness Narrative Radiology Service Progress Note DATE OF SERVICE: [...] DATE: January 24, 2023 TIME: 10:38 AM RADIOLOGY SERVICE PROGRESS NOTE SERVICE DATE: 01/24/2023 SERVICE TIME: 2:34 PM PATIENT IDENTITY VERIFICATION COMPLETED USING TWO (2) STANDARD IDENTIFIERS: Name and Date of confirmed by patient verbally POST EXAM PIV STATUS: Discontinued PROCEDURE TYPE: NM INJECT: PET/CT BODY SCAN. 9.0 mCi F18 FDG. No other medications given.. ADMINISTRATION TIME: 1035 PATIENT DISCHARGED TO: Ambulatory patient, left NM department area. A Diagnostic radioactive procedure has taken place, with no further precautions necessary other than routine body substance precautions. More information regarding radiation safety can be found using this link: [email or web address] [email or web address]-%20Diagnostic%20Nucl ear%20Medicine%20Procedures.pdf SIGNATURE: RT Sharita(R) PATIENT NAME: Jaret Grajeda DATE: January 24, 2023 TIME: 2:34 PM PAGER/CONTACT #: documented in this encounter [facility] 01-13-2023 Miscellaneous Notes Received [facility] Hem/Onc office notes 01/04/23 fron [facility] Record scanned in Epic alycia Byrd asst documented in this encounter [facility] 01-06-2023 Miscellaneous Notes Patient called back is aware of appt date and times Called patient again left message to call me back with appt dates and times Called patient to let him know about PET and CT and he also needs a followup with Dr Mejia, no answer left message for him to call me back documented in this encounter [facility] 12-23-2022 Note HNO ID: [id number] Author: Delfina Blue MD, PhD Service: Thoracic Surgery Author Type: Physician Type: Progress Notes Filed: 12/29/2022 12:03 PM Note Text: [place] [address] [place] CLINIC NOTE NAME: JARET GRAJEDA [facility] #: [id number] DATE: 12/23/2022 AGE: 62 PHYSICIAN: Delfina Blue [...] He was scheduled for potential simulation in [place] with Dr. Mejia, but somehow has not kept those appointments in check. He did not answer my direct phone call today. It is possible he is being treated out of system for what I suspect it was a stage IB non-small cell lung cancer, but I find no record of that in our system. He does have a progress note from [facility], where he was seen after his recovery from his hospitalization and I think that given that he was compromised recently, radiotherapy should be his treatment. I will attempt to call Dr. Garber and let him know of my thoughts. Delfina Blue M.D., Ph.D. SM:[id number] / [facility] 12-23-2022 Note HNO ID: [id number] Author: Delfina Blue MD, PhD Service: ? Author Type: Physician Type: Progress Notes Filed: 12/23/2022 10:56 AM Note Text: I have read and reviewed the documentation and agree. I wish to add the following findings which have been dictated and will be communicated back to the requesting physician. Delfina Blue MD, PhD [facility] 12-23-2022 Note HNO ID: [id number] Author: Delfina Blue MD, PhD Service: ? Author Type: Physician Type: Progress Notes Filed: 12/23/2022 10:56 AM Note Text: Heart, Vascular AND Thoracic [place] Department of Thoracic Surgery TELEPHONE VISIT (audio [...] visit. Either the patient or their legal sales representative raw fibers has been informed of the risks and [...] manage going forward Delfina Blue MD, PhD [facility] 12-23-2022 History of Present illness Narrative I have read and reviewed the documentation and agree. I wish to add the following findings which have been dictated and will be communicated back to the requesting physician. Delfina Blue MD, PhD Heart, Vascular & Thoracic [place] Department of Thoracic Surgery TELEPHONE VISIT (audio [...] visit. Either the patient or their legal sales representative raw fibers has been informed of the risks and [...] Blue MD, PhD documented in this encounter [facility] 12-09-2022 Note HNO ID: [id number] Author: Britany Lynch RN Service: Radiology Author [...] ALLERGIES: Reviewed and unchanged MEDICATIONS REVIEWED BY: Signal Tower Operator and Britany Lynch RN PROCEDURE TYPE: NM STRESS: 0.4 mg of Lexiscan was administered IV at 1106 by Britany Lynch RN. Reversal agent used: None. Expiration date: 06/2024 Lot#: [id number] IV SITE: Ambulatory: A Saline lock was inserted per protocol POST EXAM PIV STATUS: Discontinued PATIENT DISCHARGED TO: Ambulatory patient, left NM department area. A Diagnostic radioactive procedure has taken place, with no further precautions necessary other than routine body substance precautions. More information regarding radiation safety can be found using this link: [email or web address] rotection %20-%20Diagnostic%20Nuclear%20Med icine%20Procedures.pdf SIGNATURE: Britany Lynch RN PATIENT NAME: Jaret Grajeda DATE: December 09, 2022 TIME: 10:51 AM PAGER/CONTACT #: [facility] 12-09-2022 Note HNO ID: [id number] Author: Demetrice Sumner RT(Stephen) Service: Nuclear Medicine Author Type: Technologist Type: [...] EXAM PIV STATUS: Discontinued PROCEDURE TYPE: NM Stress: 13.0mCi Na48u-Ydsnizf was administered IV for Rest Imaging at 0955 by RULA [place]). 31.8 mCi Zj26r-Slomomb was administered IV for Stress Imaging at 1106 by demetrice sumner [facility]. ADMINISTRATION TIME: PATIENT DISCHARGED TO: Ambulatory patient, left NM department area. A Diagnostic radioactive procedure has taken place, with no further precautions necessary other than routine body substance precautions. More information regarding radiation safety can be found using this link: [email or web address] rotection %20-%20Diagnostic%20Nuclear%20Med icine%20Procedures.pdf SIGNATURE: RT Stanislav(R) PATIENT NAME: Jaret Grajeda DATE: December 09, 2022 TIME: 9:57 AM PAGER/CONTACT #: [facility] 11-24-2022 Miscellaneous Notes Thanks for the update [...] patient's stress test/cardiac clearance? Thank you! Cathy Jovel, RN Call placed to pt to verify status. He states that stress test has not been scheduled yet. He needs to contact his Dr office to get this arranged. Pt states he plans to call tomorrow to get this scheduled. Cathy Jovel, RN Cxed appointment let me know when I need to r/s adonay Thanks! Don Spoke to pt and he is waiting for appts to be set up locally for cardiac clearance by Dr Blue's office. Tiff- Sim can be cancelled for today. We will keep an eye on surgical plan and reschedule SIM when we know plan. Pt is aware and in agreement with waiting to reschedule. Cathy Jovel, RN documented in this encounter [facility] 10-15-2022 Note HNO ID: [id number] Author: Delfina Blue MD, PhD Service: ? Author Type: Physician Type: Progress Notes Filed: 10/15/2022 4:54 PM Note Text: [facility] STAFF PHYSICIAN NOTE OF PERSONAL INVOLVEMENT IN [...] PhD DATE OF SERVICE: October 14, 2022 [facility] 10-14-2022 Note HNO ID: [id number] Author: Fernando Noel MD Service: ? Author Type: Fellow Type: Progress Notes Filed: 10/15/2022 4:54 PM Note Text: [facility] THORACIC SURGERY OUTPATIENT CONSULT NOTE Jaret Grajeda [id number] Requesting Provider: Wade Jones Thoracic Physician: Delfina Blue MD Chief Complaint: lung cancer Impression: Jaret Grajeda is a 62 yoM current heavy 45PYS with newly diagnosed [id number] TRISTEN adenoCA. EBUS with negative level 7 [...] SERVICE: 10/14/2022 TIME of SERVICE: 3:57 PM [facility] 10-14-2022 Note HNO ID: [id number] Author: Ana Steward RRT Service: ? Author [...] PM _ Comments: B/P 5min post 185/98 [facility] 10-14-2022 Note HNO ID: [id number] Author: Delfina Blue MD, PhD Service: Thoracic Surgery Author Type: Physician Type: Progress Notes Filed: 10/18/2022 7:56 PM Note Text: [place] [address] [place] DEPARTMENT OF THORACIC AND CARDIOVASCULAR SURGERY NAME: JARET GRAJEDA [facility] #: [id number] DATE: 10/14/2022 AGE: 62 PHYSICIAN: Delfina Blue [...] very near future. Delfina Blue M.D., Ph.D. :[id number] /[id number] [facility] 10-14-2022 Procedure note Associated Ord er(s): SIX [...] TIME: 9:29 PM documented in this encounter [facility] 09-28-2022 Note HNO ID: [id number] Author: Don Mejia MD Service: ? Author Type: Physician Type: Progress Notes Filed: 10/06/2022 6:08 AM Note Text: Radiation Oncology - New Patient/Consult Note PATIENT NAME: Jaret Grajeda PATIENT REQUESTING PHYSICIAN: Jennifer Garber MD DIAGNOSIS: Stage IB, [id number], non-small cell lung cancer (adenocarcinoma) arising from the left upper lobe of the lung. PATIENT IDENTIFICATION: This patient was seen in the Department of Radiation Oncology at the [facility] with Don Mejia MD. He was accompanied today by his family. Final recommendations will be communicated back to the requesting physician by way of the shared medical record, or letter to requesting physician via US mail. HISTORY OF PRESENT ILLNESS: Mr. Grajeda is a 62-year-old gentleman from [place], [place] and heavy tobacco user who was [...] has 1 child, and lives in the [place], [place] area. 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 He reports an approximate 37-rodc-qusn history of smoking and currently smokes a [...] 62-year-old gentleman recently diagnosed with Stage IB, [id number], non-small cell lung cancer (adenocarcinoma) arising from the left upper lobe of the jelena (more content not included)... [facility] 09-27-2022 History of Present illness Narrative Images from the original note were not included. Radiation Oncology - New Patient/Consult Note PATIENT NAME: Jaret Grajeda PATIENT Signed: Don Mejia MD I spent a total of 60 minutes on the date of the service which included preparing to see the patient, ymnf-dn-efto patient care, and counseling and educating the patient/family/caregiver. This document has been created with the use of voice recognition technology. It may contain inaccuracies, misspellings, inaccurate syntax or inappropriate word context that are a result of the inadequacies/shortcomings of said technology/software. documented in this encounter [facility] 09-27-2022 Note Education (RODDYA) JARET GRAJEDA ([id number]) 1960 M Date Time Provider Department 09/27/22 LILI MARTINEZ Reason for Visit: Patient Education [91] Visit Notes: >> Lili Martinez LPN Mon Sep 27, 2022 12:26 PM Status: Signed Radiation Therapy - Patient Education Note PATIENT NAME: Jaret Grajeda PATIENT September 27, 2022 [facility] FACILITY/LOCATION: [email or web address] READINESS TO LEARN Cognitive Ability: Alert and [...] need for social work, van service, and buoy tender. Was approved? No Signed by: Lili Martinez [...] Encounter Status:Closed by LILI MARTINEZ on 09/27/22 [facility] 09-27-2022 Miscellaneous Notes Thanks for tristen Ochoa Offered Bakari an appointment with Dr Blue on 10/05 he will not take appointment he stated that he has someone taking him on the and discussed with him daughter they would like to keep appt as scheduled. documented in this encounter [facility] 09-27-2022 Nurse Note Radiation Therapy - Patient Education Note PATIENT NAME: Jaret Grajeda PATIENT September 27, 2022 [facility] FACILITY/LOCATION: [facility] [[email or web address]] READINESS TO LEARN Cognitive Ability: Alert and [...] need for social work, van service, and buoy tender. Was approved? No Signed by: Lili Martinez LPN documented in this encounter [facility] 09-21-2022 Miscellaneous Notes Patient called back he is scheduled for Tuesday per his request. Called patient again to schedule tiffany no answer 09/06/22 EBUS results are available in Care Everywhere. Thanks Lili Martinez LPN Referral was made by Dr. Garber and is important to keep. According to the chart he was also supposed to follow-up with Dr. Candelaria in [place] for bronchoscopy/EBUS for pathologic staging of his [...] made the referral. The appt was scheduled 8/10/23. She said she attempted to call him the last time we notified her of his missed appt but there was no answer. She said Jaret has an appt with Dr. Garber next week. Lili Martinez LPN documented in this encounter [facility] 09-16-2022 Miscellaneous Notes Left date and time of apt for patient. Sent via [employer] - [id number]. Th, 10/14/2022 at [facility]FT[facility] at 12:30pm/1pm/1:15pm , 10/14/2022 at [facility] Consult w/ Dr. Blue at 3:40pm documented in this encounter [facility] 09-09-2022 Miscellaneous Notes Images from the original note were not included. Thoracic Surgery Consultation - review of records for appointment scheduling Received medical records from the office of Wade Jones Sr, MD [address] [place] [address] Patient is being referred to Unspecified/First Available [...] evidence of lymph node Procedures: 09/06 [facility] 08/13/22 ct guided bx Imaging . PET/CT: [...] pft/dlco/ six min walk Socrates Pastor RN LOCAL PATIENT Received Fax from Dr. Wade Jones Jaret Grajeda is being referred to Delfina Blue MD, PhD or Zbigniew Wilkinson M.D. by Wade Jones Sr, MD [address] [facility] [address] Patient diagnosis/Reason for consult: Lung Cancer Referral triage process explained: Yes Patient will receive a call from Thoracic NPM after triage review with surgeon to discuss any additional testing and/or consults that will be scheduled. Pt will then receive a call from our scheduling office for scheduling. Please call pt at [phone]. Patient was informed consultation could be at [place] or [facility]: No Patient Registration: Registration complete/updated: Yes Insurance card(s) scanned in [facility] with in the past year: Yes: Date: 08/26/22 Pt's [employer] is Pending. Ok to communicate to pt via [employer] O[employer] not asked Medical Records: Records in [facility] (internal CC records): No Imaging in [facility] (internal CC records): No Care Everywhere - queried yes, downloaded Yes Linked Outside Organizations (list):[facility] Records Requested: yes Date: August 26, 2022 Outside Hospital(s) requested records from: Dr. Wade Jones, Dr. Garber Received: Yes Uploaded: Yes. Waiting on additional records: No. Missing (list): n/a OSH Pathology Slides Requested: no Date: N/A Outside Hospital(s) slides requested from: n/a OSH Radiology Imaging Requested: yes Date: August 26, 2022 Outside Hospital(s) requested imaging from: [facility]. Imaging will be received via Electronic Transfer Received: Yes Imaging uploaded: Yes Waiting on additional: No. Missing (list): n/a Additional providers added to Care Teams: Yes Additional Notes/Comments: n/a Enct routed to: Thoracic NPM for Triage Jeremiah Gibbs, credit administration officer documented in this encounter [facility] 09-09-2022 Miscellaneous Notes I left a message for Jaret to call the office conner regarding his missed appointment for consult with Dr. Mejia today. This is twice that he's no showed to the scheduled consult. I notified Shilpa with Dr. Garber's office of the above as well. Lili Martinez LPN documented in this encounter [facility] 09-06-2022 Note Patient: Jaret Grajeda Procedure [...] no known notable events for this encounter. [facility] 09-06-2022 Note Airway Date/Time: 09/06/2022 12:57 [...] 1 Number of other approaches attempted: 0 [facility] 09-06-2022 Note Patient: Jaret Grajeda Procedure [...] observation Transport: uneventful Patient condition is: stable [facility] 09-06-2022 Note Patient: Jaret Grajeda Procedure [...] risks discussed with patient. Plan discussed with 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 Additional Equipment Requests [facility] 08-19-2022 Note Attestation signed by Chinyere [...] Age: 62 y.o. : 1960 Account No.: [id number] Referring physician: Chief complaint: Lung mass, newly [...] BICARB, CO2, CO2, PH, PH, PHART, PHVEN, [id number], [id number], REO4QTL, PO2POC, PO2ART, PO2VEN, SNE0KQI, VIB0FYG Radiology: No Chest X-ray results found for [...] was initiated by the patient and conducted qqt-bhpr-sv-face with use of audio-only real time telephone communication between patient and provider for a virtual visit. Verbal consent to provide and bill for this service was obtained No signature was obtained due to the COVID-19 pandemic. Micheal Feliz MD PCCM Fellow [facility] 08-18-[address] [facility] 05-26-2022 Note PROCEDURE: XR FOOT R [...] authenticated by: ANNE GUADALUPE Date: 2022-05-26 19:40 [facility] 04-14-2022 Note PROCEDURE: XR FOOT R [...] authenticated by: LEIGH PUCKETT Date: 2022-04-14 09:05 [facility] 03-31-2022 Note PROCEDURE: XR FOOT R [...] authenticated by: LEIGH PUCKETT Date: 2022-03-31 08:08 [facility] 03-23-2022 Note PROCEDURE: XR FOOT R [...] authenticated by: ANNE GUADALUPE Date: 2022-03-23 12:49 [facility] Evaluation note Diagnosis Malignant neoplasm of left lung, unspecified part of lung (HCC)- Primary [facility] Diagnosis 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)- Primary documented in this encounter [facility]* Diagnosis Malignant neoplasm of left lung, unspecified part of lung (HCC) [facility] Malignant neoplasm of left lung, unspecified part of lung (HCC) documented [facility] Diagnosis Personal history of malignant neoplasm of bronchus and lung- Primary documented [facility] Diagnosis Neoplasm of lung- Primary Neoplasm of unspecified nature of respiratory system documented [facility] Diagnosis 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)- Primary [facility] Diagnosis 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) documented [facility] Diagnosis 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) [facility] Outpatient Procedure (Routine) - Pending Review Specialty Diagnoses / Procedures Referred By Javy singer Referred To [facility] Diagnoses Malignant neoplasm of left lung, unspecified part of lung (HCC) Procedures SIX MINUTE WALK CARDIOPULMONARY EXERCISE STRESS Delfina Blue MD, PhD [address] [facility] [address] [place] [address] [facility] [address] [place] [address] Referral ID Status Reason Start Date Expiration Date Visits Requested Visits Authorized [id number] Pending Review Auto-Generat ed Referral 09/09/2022 10/09/2023 1 1 * Outpatient Procedure (Routine) - Pending Review Specialty Diagnoses / Procedures Referred By Contac t Referred To [facility] Diagnoses Malignant neoplasm of left lung, unspecified part of lung (HCC) Procedures LUNG DIFFUSION CAPACITY (DLCO) DIFFUSING CAPACITY Delfina Blue MD, PhD [address] [facility] [place] [address] [address] Referral ID Status Reason Start Date Expiration Date Visits Requested Visits Authorized [id number] Pending Review Auto-Generat ed Referral 09/09/2022 10/09/2023 1 1 * Outpatient Procedure (Routine) - Pending Review Specialty Diagnoses / Procedures Referred By Contac t Referred To [facility] Diagnoses Malignant neoplasm of left lung, unspecified part of lung (HCC) Procedures SPIROMETRY BASELINE ONLY SPMTRY W/VC EXPIRATORY RU W/WO MXML VOL VNTJ Delfina Blue MD, PhD [address] [facility] [address] [place] [address] [facility] [address] [place] [address] Referral ID Status Reason Start Date Expiration Date Visits Requested Visits Authorized [id number] Pending Review Auto-Generat ed Referral 09/09/2022 10/09/2023 1 1 [facility] (narrative)* Diagnostic Procedure Only (Routine) - Closed Specialty Diagnoses / Procedures Referred By [facility] Referred To Contact MOLECULAR & FUNCTIONAL IMAGING Diagnoses 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) Procedures NM PET/CT SKULL-THIGH SUBSEQUENT PET IMAGING CT ATTENUATION SKULL BASE MID-THIGH Don Mejia MD [address] [place] [address] [place] [address] Molecular & Functional Imaging [address] [place] [address] Referral ID Status Reason Start Date Expiration Date V isits Requested Visits Authorized [id number] Closed Auto-Generate d Referral 01/10/2023 02/08/2023 1 1 [facility] Summary Purpose Family History No Family History Records FoundNo Family History Records FoundNo Family History Records FoundNo Family History Records FoundNo Family History Records Found Advance Directives No Advanced Directives Records FoundNo Advanced Directives Records FoundNo Advanced Directives Records FoundNo Advanced Directives Records FoundNo Advanced Directives Records Found Reason for Referral Specialty Diagnoses / Procedures Referred By [facility] Referred To Contact CT IMAGING Diagnoses Neoplasm of lung Procedures CT CHEST W IVCON DIAGNOSTIC COMPUTED TOMOGRAPHY THORAX W/CONTRAST Don Mejia MD [address] [place] [address] [place] [address] Ct Imaging [id number] Referral ID Status Reason Start Date Expiration Date Visits Requested Visits Authorized [id number] Authorized Auto-Generat ed Referral 06/09/2023 04/09/2024 1 1 Specialty Diagnoses / Procedures Referred By [facility] Referred To Contact CT IMAGING Diagnoses 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) Procedures CT CHEST W IVCON DIAGNOSTIC COMPUTED TOMOGRAPHY THORAX W/CONTRAST Don Mejia MD [address] [place] [address] [place] [address] [place] [address] Referral ID Status Reason Start Date Expiration Date V isits Requested Visits Authorized [id number] Closed Auto-Generate d Referral 01/05/2023 02/04/2024 1 1 Additional Source Comments (unrecognized sect ion and content) No Status Records FoundNo Status Records FoundNo Status Records FoundNo Status Records FoundNo Status Records Found INFORMATION SOURCE (unrecogn ized section and content) DATE CREATED AUTHOR 05/30/2022 [facility] DATE CREATED AUTHOR AUTHOR'S ORGANIZ ATION 09/09/2022 [facility] DATE CREATED AUTHOR AUTHOR'S ORGANIZ ATION 10/15/2022 [facility] DATE CREATED AUTHOR AUTHOR'S ORGANIZ ATION 07/01/2023 [facility] DATE CREATED AUTHOR AUTHOR'S ORGANIZ ATION 08/24/2023 [facility] dical Specialists EPIC Source Comments (unrecognize d section and content) In the event this informatio n is protected by the Federal Confidentiality of Alcohol and Drug Abuse Patient Records regulations: The Federal rules restrict any use of the information to criminally investigate or prosecute any alcohol or drug abuse patient.[facility] HospitalIn the event this information is protected by the Federal Confidentiality of Alcohol and Drug Abuse Patient Records regulations: The Federal rules restrict any use of the information to criminally investigate or prosecute any alcohol or drug abuse patient.[facility] HospitalIn the event this information is protected by the Federal Confidentiality of Alcohol and Drug Abuse Patient Records regulations: The Federal rules restrict any use of the information to criminally investigate or prosecute any alcohol or drug abuse patient.[facility] HospitalIn the event this information is protected by the Federal Confidentiality of Alcohol and Drug Abuse Patient Records regulations: The Federal rules restrict any use of the information to criminally investigate or prosecute any alcohol or drug abuse patient.[facility] HospitalIn the event this information is protected by the Federal Confidentiality of Alcohol and Drug Abuse Patient Records regulations: The Federal rules restrict any use of the information to criminally investigate or prosecute any alcohol or drug abuse patient.[facility] HospitalIn the event this information is protected by the Federal Confidentiality of Alcohol and Drug Abuse Patient Records regulations: The Federal rules restrict any use of the information to criminally investigate or prosecute any alcohol or drug abuse patient.[facility] HospitalIn the event this information is protected by the Federal Confidentiality of Alcohol and Drug Abuse Patient Records regulations: The Federal rules restrict any use of the information to criminally investigate or prosecute any alcohol or drug abuse patient.[facility] HospitalIn the event this information is protected by the Federal Confidentiality of Alcohol and Drug Abuse Patient Records regulations: The Federal rules restrict any use of the information to criminally investigate or prosecute any alcohol or drug abuse patient.[facility] HospitalIn the event this information is protected by the Federal Confidentiality of Alcohol and Drug Abuse Patient Records regulations: The Federal rules restrict any use of the information to criminally investigate or prosecute any alcohol or drug abuse patient.[facility] HospitalIn the event this information is protected by the Federal Confidentiality of Alcohol and Drug Abuse Patient Records regulations: The Federal rules restrict any use of the information to criminally investigate or prosecute any alcohol or drug abuse patient.[facility] HospitalIn the event this information is protected by the Federal Confidentiality of Alcohol and Drug Abuse Patient Records regulations: The Federal rules restrict any use of the information to criminally investigate or prosecute any alcohol or drug abuse patient.[facility] HospitalIn the event this information is protected by the Federal Confidentiality of Alcohol and Drug Abuse Patient Records regulations: The Federal rules restrict any use of the information to criminally investigate or prosecute any alcohol or drug abuse patient.[facility] HospitalIn the event this information is protected by the Federal Confidentiality of Alcohol and Drug Abuse Patient Records regulations: The Federal rules restrict any use of the information to criminally investigate or prosecute any alcohol or drug abuse patient.[facility] HospitalIn the event this information is protected by the Federal Confidentiality of Alcohol and Drug Abuse Patient Records regulations: The Federal rules restrict any use of the information to criminally investigate or prosecute any alcohol or drug abuse patient.[facility] HospitalIn the event this information is protected by the Federal Confidentiality of Alcohol and Drug Abuse Patient Records regulations: The Federal rules restrict any use of the information to criminally investigate or prosecute any alcohol or drug abuse patient.[facility] HospitalIn the event this information is protected by the Federal Confidentiality of Alcohol and Drug Abuse Patient Records regulations: The Federal rules restrict any use of the information to criminally investigate or prosecute any alcohol or drug abuse patient.[facility] HospitalIn the event this information is protected by the Federal Confidentiality of Alcohol and Drug Abuse Patient Records regulations: The Federal rules restrict any use of the information to criminally investigate or prosecute any alcohol or drug abuse patient.[facility] HospitalIn the event this information is protected by the Federal Confidentiality of Alcohol and Drug Abuse Patient Records regulations: The Federal rules restrict any use of the information to criminally investigate or prosecute any alcohol or drug abuse patient.[facility] HospitalIn the event this information is protected by the Federal Confidentiality of Alcohol and Drug Abuse Patient Records regulations: The Federal rules restrict any use of the information to criminally investigate or prosecute any alcohol or drug abuse patient.[facility] HospitalIn the event this information is protected by the Federal Confidentiality of Alcohol and Drug Abuse Patient Records regulations: The Federal rules restrict any use of the information to criminally investigate or prosecute any alcohol or drug abuse patient.[facility] HospitalIn the event this information is protected by the Federal Confidentiality of Alcohol and Drug Abuse Patient Records regulations: The Federal rules restrict any use of the information to criminally investigate or prosecute any alcohol or drug abuse patient.[facility] HospitalIn the event this information is protected by the Federal Confidentiality of Alcohol and Drug Abuse Patient Records regulations: The Federal rules restrict any use of the information to criminally investigate or prosecute any alcohol or drug abuse patient.[facility] HospitalIn the event this information is protected by the Federal Confidentiality of Alcohol and Drug Abuse Patient Records regulations: The Federal rules restrict any use of the information to criminally investigate or prosecute any alcohol or drug abuse patient.[facility] Reason for Visit (unrecogniz ed section and content) Reason Comments External Referrals/resources Consult Reason Comments Appointment Reason Comments Appointment Confirmation Reason Comments Patient Education Reason Comments FYI-No Action Needed Reason Comments Consult Reason Comments Spirometry Specialty Diagnoses / Procedures Referred By Contac t Referred To [facility] Diagnoses Malignant neoplasm of left lung, unspecified part of lung (HCC) Procedures LUNG DIFFUSION CAPACITY (DLCO) DIFFUSING CAPACITY Delfina Blue MD, PhD [address] [place] [id number] [place] [id number] [place] [address] Referral ID Status Reason Start Date Expiration Date V isits Requested Visits Authorized [id number] Closed Auto-Generate d Referral 09/09/2022 10/09/2023 1 1 Specialty Diagnoses / Procedures Referred By Contac t Referred To [facility] Diagnoses Malignant neoplasm of left lung, unspecified part of lung (HCC) Procedures SPIROMETRY BASELINE ONLY SPMTRY W/VC EXPIRATORY RU W/WO MXML VOL VNTJ Delfina Blue MD, PhD [address] [place] [address] [place] [phone] [place] [address] Referral ID Status Reason Start Date Expiration Date V isits Requested Visits Authorized [id number] Closed Auto-Generate d Referral 09/09/2022 10/09/2023 1 1 Specialty Diagnoses / Procedures Referred By Contac t Referred To [facility] Diagnoses Malignant neoplasm of left lung, unspecified part of lung (HCC) Procedures SIX MINUTE WALK CARDIOPULMONARY EXERCISE STRESS PULMONARY STRESS TESTING Delfina Blue MD, PhD [address] [place] [address] [facility] [place] [address] [place] [address] Referral ID Status Reason Start Date Expiration Date V isits Requested Visits Authorized [id number] Closed Auto-Generate d Referral 10/01/2022 02/06/2023 1 1 Reason Comments Mass Reason Comments Future Appointment Reason Comments Received Outside Medical Records Reason Comments Orders Reason Comments Patient Update Post Radiation Treat ment Nurse Call Reason Comments Lung Cancer Specialty Diagnoses / Procedures Referred By Contac t Referred To Contact [facility]PARTMENT Diagnoses . Procedures . [place] [facility] [place] [address] Referral ID Status Reason Start Date Expiration Date Visits Requested Visits Authorized [id number] Authorized Financial Clearance Required - Self Pay Patient Cleared - Qualified [id number]/[id number] 03/31/2023 06/29/2023 99 99 Specialty Diagnoses / Procedures Referred By Contac t Referred To Contact Radiation Oncology / RADIATION ONCOLOGY Diagnoses Malignant neoplasm of upper lobe, left bronchus or lung Followup and SIM treating lung? SBRT 4FX PLUS SIM Procedures SIMULATION [place] SBRT 4FX PLUS SIM Don Mejia MD [address] [place] [address] Don Mejia MD [address] [place] [address] [place] [address] Referral ID Status Reason Start Date Expiration Date Visits Re quested Visits Authorized [id number] Closed 02/04/2023 05/04/2023 5 5 Reason Comments Radiology NM Specialty Diagnoses / Procedures Referred By Contac t Referred To Contact MOLECULAR & FUNCTIONAL IMAGING Diagnoses 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) Procedures NM PET/CT SKULL-THIGH SUBSEQUENT PET IMAGING CT ATTENUATION SKULL BASE MID-THIGH Don Mejia MD [address] [place] [address] Molecular & Functional Imaging [address] [phone] Referral ID Status Reason Start Date Expiration Date V isits Requested Visits Authorized [id number] Closed Auto-Generate d Referral 01/10/2023 02/08/2023 [address] Specialty Diagnoses / Procedures Referred By Contac t Referred To Contact CT IMAGING Diagnoses 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) Procedures CT CHEST W IVCON DIAGNOSTIC COMPUTED TOMOGRAPHY THORAX W/CONTRAST Don Mejia MD [address] [place] [address] [place] [address] [place] [address] Referral ID Status Reason Start Date Expiration Date V isits Requested Visits Authorized [id number] Closed Auto-Generate d Referral 01/05/2023 02/04/2024 1 1 Care Teams (unrecognized sec tion and content) Instructional Aide Relationship Specialty Start Date End Date Wade Jones Sr. [address] [place] [address] PCP - General Family Medicine 08/26/22 Chinyere Candelaria [address] [place] [phone] Critical Care 08/26/22 Jennifer Garber MD [address] [place] [address] Hematology/Oncology 08/26/22 Instructional Aide Relationship Specialty Start Date End Date Wade Jones Sr. [address] [place] [address] PCP - General Family Medicine 08/26/22 Chinyere Candelaria [address] [place] [address] Critical Care 08/26/22 Jennifer Garber MD [address] [place] [address] Hematology/Oncology 08/26/22 Instructional Aide Relationship Specialty Start Date End Date Wade Jones Sr. [address] [place] [address] PCP - General Family Medicine 08/26/22 Chinyere Candelaria [address] [place] [address] Critical Care 08/26/22 Jennifer Garber MD [address] [place] [address] Hematology/Oncology 08/26/22 Instructional Aide Relationship Specialty Start Date End Date Wade Jones Sr. [address] [place] [address] PCP - General Family Medicine 08/26/22 Chinyere Candelaria [address] [place] [phone] Critical Care 08/26/22 Jennifer Garber MD [address] [place] [address] Hematology/Oncology 08/26/22 Instructional Aide Relationship Specialty Start Date End Date Wade Jones Sr. [address] [place], [place] [id number] PCP - General Family Medicine 08/26/22 Chinyere Candelaria [address] [place] [address] Critical Care 08/26/22 Jennifer Garber MD [address] [place] [facility] [place] [address] Hematology/Oncology 08/26/22 Instructional Aide Relationship Specialty Start Date End Date Wade Jones Sr. [address] [facility] [place] [address] PCP - General Family Medicine 08/26/22 Chinyere Candelaria [address] [place] [phone] Critical Care 08/26/22 Jennifer Garber MD [address] [place] [facility] [place] [address] Hematology/Oncology 08/26/22 Instructional Aide Relationship Specialty Start Date End Date Wade Jones Sr. [address] [facility] [place] [address] PCP - General Family Medicine 08/26/22 Chinyere Candelaria [address] [place] [address] Critical Care 08/26/22 Jennifer Garber MD [address] [place] [facility] [place] [place] [address] Hematology/Oncology 08/26/22 Instructional Aide Relationship Specialty Start Date End Date Wade Jones Sr. [address] [facility] [place] [address] PCP - General Family Medicine 08/26/22 Chinyere Candelaria MD [address] [place] [address] Critical Care 08/26/22 Jennifer Garber MD [address] [place] [address] Hematology/Oncology 08/26/22 Instructional Aide Relationship Specialty Start Date End Date Wade Jones Sr. [address] [place] [address] PCP - General Family Medicine 08/26/22 Chinyere Candelaria MD [address] [place] [address] Critical Care 08/26/22 Jennifer Garber MD [address] [place] [address] Hematology/Oncology 08/26/22 Instructional Aide Relationship Specialty Start Date End Date Wade Jones Sr., DO [address] [place] [address] PCP - General Family Medicine 08/26/22 Chinyere Candelaria MD [address] [place] [address] Critical Care 08/26/22 Jennifer Garber MD [address] [place] [address] Hematology/Oncology 08/26/22 Instructional Aide Relationship Specialty Start Date End Date Wade Jones Sr., DO [address] [place] [address] PCP - General Family Medicine 08/26/22 Chinyere Candelaria MD [address] [place] [address] Critical Care 08/26/22 Jennifer Garber MD [address] [place] [address] Hematology/Oncology 08/26/22 Instructional Aide Relationship Specialty Start Date End Date Wade Jones Sr., DO [address] [place] [address] PCP - General Family Medicine 08/26/22 Chinyere Candelaria MD [address] [place] [address] Critical Care 08/26/22 Jennifer Garber MD [address] [place] [address] Hematology/Oncology 08/26/22 Instructional Aide Relationship Specialty Start Date End Date Wade Jones Sr., DO [address] [place] [address] PCP - General Family Medicine 08/26/22 Chinyere Candelaria MD [address] [place] [address] Critical Care 08/26/22 Jennifer Garber MD [address] [place] [address] Hematology/Oncology 08/26/22 Instructional Aide Relationship Specialty Start Date End Date Wade Jones Sr., DO [address] [place] [address] PCP - General Family Medicine 08/26/22 Chinyere Candelaria MD [address] [place] [address] Critical Care 08/26/22 Jennifer Garber MD [address] [place] [address] Hematology/Oncology 08/26/22 Instructional Aide Relationship Specialty Start Date End Date Wade Jones Sr., DO [address] [place] [address] PCP - General Family Medicine 08/26/22 Chinyere Candelaria MD [address] [place] [address] Critical Care 08/26/22 Jennifer Garber MD [address] [place] [address] Hematology/Oncology 08/26/22 Instructional Aide Relationship Specialty Start Date End Date Wade Jones Sr., DO [address] [place] [address] PCP - General Family Medicine 08/26/22 Chinyere Candelaria MD [address] [place] [phone] Critical Care 08/26/22 Jennifer Garber MD [address] [place] [address] Hematology/Oncology 08/26/22 Instructional Aide Relationship Specialty Start Date End Date Wade Jones Sr., DO [address] [place] [address] PCP - General Family Medicine 08/26/22 Chinyere Candelaria MD [address] [place] [phone] Critical Care 08/26/22 Jennifer Garber MD [address] [place] [address] Hematology/Oncology 08/26/22 Instructional Aide Relationship Specialty Start Date End Date Wade Jones Sr., DO PCP - General Family Medicine 08/26/22 Chinyere Candelaria MD [address] [place] [phone] Critical Care 08/26/22 Jennifer Garber MD [address] [place] [address] Hematology/Oncology 08/26/22 Instructional Aide Relationship Specialty Start Date End Date Wade Jones Sr., DO PCP - General Family Medicine 08/26/22 Chinyere Candelaria MD [address] [place] [address] Critical Care 08/26/22 Jennifer Garber MD [address] [place] [address] Hematology/Oncology 08/26/22 Instructional Aide Relationship Specialty Start Date End Date Wade Jones Sr., DO PCP - General Family Medicine 08/26/22 Chinyere Candelaria MD [address] [place] [phone] Critical Care 08/26/22 Jennifer Garber MD [address] [place] [address] Hematology/Oncology 08/26/22 Instructional Aide Relationship Specialty Start Date End Date Wade Jones Sr., DO PCP - General Family Medicine 08/26/22 Chinyere Candelaria MD [address] [place] [address] Critical Care 08/26/22 Jennifer Garber MD [address] [place] [address] Hematology/Oncology 08/26/22 FOR RECORDS PERTAINING TO PATIENTS [...] BE BASED ON THE PRIMARY CLINICAL RECORDS. [facility] [employer] [facility]. provides no warranty or guarantee of the accuracy or completeness of information in this document.
--- NOTE | 2024-03-12 17:45 | PC.NURSE ---
danyell area cleansed, he was covered in stool
[2024-03-12 17:47] LABS: Hematocrit 29.8 % (42.0-54.0); Hemoglobin 8.9 g/dL (14.0-18.0); Mean Corpuscular HGB Conc 29.9 g/dL (29.9-35.2); Mean Corpuscular Hemoglobin 29.8 pg (25.9-34.0); Mean Corpuscular Volume 99.7 fL (80.0-94.0); Mean Platelet Volume 9.9 fL (9.5-13.5); Platelet Count 331 10^3/uL (150-450); Red Blood Count 2.99 10^6/uL (4.70-6.10); Red Cell Distribution Width 18.7 % (11.0-15.0); White Blood Count 11.5 10^3/uL (4.0-11.0)
[2024-03-12 17:53] LABS: Internal Control Within Normal Limits; Occult Blood Negative
--- NOTE | 2024-03-12 18:02 | ED_ITS ---
HPI HPI - General Adult General Chief complaint: Fall Stated complaint: fall Time Seen by Provider: 03/12/24 17:38 Source: other Source information: ems Mode of arrival: ambulance History of Present Illness HPI narrative: 63-year-old male presents by squad for back pain and weakness. He tells me his back has been hurting for the last week or so and there was no injury. He was at a store and was trying to get back into his truck and he was feeling weak and he could not make it and he ended up going down onto the ground and laid there for just a few minutes. He did not sustain any sort of the fall, he was just too weak to get himself up. Paramedics arrived and he seemed to be having trouble breathing but he does not complain of chest pain or shortness of breath now. He has a history of CHF but he denies history of COPD. He does not complain of abdominal pain but complains of lower back pain and it seems to get worse in certain positions. Last year he was treated for a lung mass with radiation and he tells me that he does not need any more radiation. He did not receive surgery other than the biopsy and did not receive chemotherapy. Related Data Home Medications ?Medication ?Instructions ?Recorded ?Confirmed metoprolol succinate 50 mg 50 mg PO DAILY 07/26/22 03/12/24 tablet,extended release 24 hr calcium carbonate 600 mg PO .TIDAC 07/19/23 03/12/24 magnesium oxide 400 mg (241.3 mg 400 mg PO TID 07/19/23 03/12/24 magnesium) tablet ibuprofen 200 mg tablet 200 mg PO Q8H PRN pain 03/12/24 03/12/24 omeprazole 20 mg capsule,delayed 20 mg PO .acb 03/12/24 03/12/24 release spironolactone 25 mg tablet 25 mg PO DAILY 03/12/24 03/12/24 Previous Rx's ?Medication ?Instructions ?Recorded potassium chloride 10 mEq 10 meq PO TID #90 tabs 12/04/22 tablet,extended release(part/cryst) (Klor-Con M) Allergies Allergy/AdvReac Type Severity Reaction Status Date / Time No Known Drug Allergies Allergy Verified 03/12/24 18:01 Opioid HPI Opioid Management Most Recent Opioid Data: Last Pain Scale 3 07/19/23 00:00 07/19/23 Last Pain Intensity 0 12/02/22 10:31 12/02/22 Last Pain Assessment 03/13/24 20:00 Last ORT Total Score 9 03/12/24 23:30 03/12/24 Last ORT Risk Category High Risk 03/12/24 23:30 03/12/24 Ur Phencyclidine Scrn Negative (NEGATIVE) 07/29/22 18:40 07/09 04/01 Review of Systems ROS Narrative A ten point review of systems is negative except as noted above. [facility] Medical History (Updated 03/14/24 @ 03:34 by Ruma Levine MD) Severe protein-calorie malnutrition ?E43 - Unspecified severe protein-calorie malnutrition (ICD-10) Megaloblastic anemia due to alcoholism ?D53.1 - Other megaloblastic anemias, not elsewhere classified (ICD-10) Alcoholic fatty liver ?K70.0 - Alcoholic fatty liver (ICD-10) Adenocarcinoma of left lung ?C34.92 - Malignant neoplasm of unspecified part of left bronchus or lung (ICD-10) Chronic heart failure with preserved ejection fraction (HFpEF) ?I50.32 - Chronic diastolic (congestive) heart failure (ICD-10) COPD (chronic obstructive pulmonary disease) ?J44.9 - Chronic obstructive pulmonary disease, unspecified (ICD-10) Alcohol abuse ?F10.10 - Alcohol abuse, uncomplicated (ICD-10) Tobacco dependence ?F17.200 - Nicotine dependence, unspecified, uncomplicated (ICD-10) Protein-calorie malnutrition, moderate ?E44.0 - Moderate protein-calorie malnutrition (ICD-10) Sepsis ?A41.9 - Sepsis, unspecified organism (ICD-10) Dyspnea ?R06.00 - Dyspnea, unspecified (ICD-10) Disorder of electrolytes ?E87.8 - Other disorders of electrolyte and fluid balance, not elsewhere classified (ICD-10) Generalized weakness ?R53.1 - Weakness (ICD-10) Elevated brain natriuretic peptide (BNP) level ?R79.89 - Other specified abnormal findings of blood chemistry (ICD-10) (HFpEF) heart failure with preserved ejection fraction ?I50.30 - Unspecified diastolic (congestive) heart failure (ICD-10) Generalized weakness ?R53.1 - Weakness (ICD-10) Liver mass ?R16.0 - Hepatomegaly, not elsewhere classified (ICD-10) Anemia ?D64.9 - Anemia, unspecified (ICD-10) New onset of congestive heart failure ?I50.9 - Heart failure, unspecified (ICD-10) Alcoholic ?F10.20 - Alcohol dependence, uncomplicated (ICD-10) Mass of upper lobe of left lung ?R91.8 - Other nonspecific abnormal finding of lung field (ICD-10) Adult failure to thrive ?R62.7 - Adult failure to thrive (ICD-10) Lung mass ?R91.8 - Other nonspecific abnormal finding of lung field (ICD-10) Generalized weakness ?R53.1 - Weakness (ICD-10) Surgical History History of tonsillectomy ?Z90.89 - Acquired absence of other organs (ICD-10) History of appendectomy ?Z90.49 - Acquired absence of other specified parts of digestive tract (ICD- 10) Family History Mother Family history of cancer Family history of diabetes mellitus Father Family history of diabetes mellitus Social History Smoking status: Current every day smoker Highest level of school completed/degree received: 9th grade Little interest or pleasure in doing things: not at all Feeling down, depressed, or hopeless: not at all Gender Identity: male Exam Narrative Exam Narrative: Nurses note and vital signs reviewed and patient is not hypoxic. General: The patient appears uncomfortable and his skin is mottled. Skin: Cool and mottled. Head: Normocephalic, atraumatic Eye: Normal conjunctiva, no drainage Ears, Nose, Mouth, and Throat: oral mucosa is somewhat dry. Nares patent. Cardiovascular: Regular Rate and Rhythm, borderline tachycardic Respiratory: Patient is in no distress, no accessory muscle use, lungs are clear to auscultation, no wheezing, rales or rhonchi Back: No bruise or deformity GI: Soft and no masses. No distention Musculoskeletal: No tenderness to his extremities. His skin is mottled in his extremities and his abdomen Neurological: A&O x4, normal speech Psychiatric: Cooperative Constitutional Vital Signs, click to edit/add: Last Vital Signs Temp 98.1 F 03/13/24 20:00 Pulse 88 03/13/24 20:00 Resp 16 03/13/24 16:00 BP 132/80 03/13/24 20:00 Pulse Ox 94 L 03/13/24 20:00 O2 Del Method Room Air 03/13/24 20:00 O2 Flow Rate 4 03/12/24 17:31 Course Course Hospital Course: Patient remained on Heparin drip, Vancomycin and Zosyn. Vitals at the time of discharge are stable. He will be transferred to [facility] for higher level of Care under care of Dr. Arroyo as accepting physician. Vital Signs Vital signs: Vital Signs Temperature 95.7 F L 03/12/24 17:31 Pulse Rate 120 H 03/12/24 17:31 Respiratory Rate 32 H 03/12/24 17:31 Blood Pressure 136/93 H 03/12/24 17:31 Pulse Oximetry 100 03/12/24 17:31 Oxygen Delivery Method Nasal Cannula 03/12/24 17:31 Oxygen Delivery Flow Rate 4 03/12/24 17:31 Temperature 98.1 F 03/13/24 20:00 Pulse Rate 88 03/13/24 20:00 Respiratory Rate 16 03/13/24 16:00 Blood Pressure 132/80 03/13/24 20:00 Pulse Oximetry 94 L 03/13/24 20:00 Oxygen Delivery Method Room Air 03/13/24 20:00 Oxygen Delivery Flow Rate 4 03/12/24 17:31 Medical Decision Making MDM Narrative Medical decision making narrative: The patient was hypothermic upon arrival and Yuli hugger was applied. Blood work is nonspecific though his ABG shows a pH of 7.21. Stool was negative for occult blood. CT of chest and CT of the abdomen and pelvis is ordered and the patient is signed out to Dr. Levine at change of shift. He has shown progressive improvement here in the emergency department particularly while being warmed. Differential Diagnosis Differential Diagnosis: Sepsis, PE, AAA, UTI, COVID, influenza, dehydration, anemia Lab Data Lab results reviewed: Yes I reviewed the patient's lab results Labs: Lab Results 03/12/24 03/12/24 03/12/24 Range/Units 17:20 17:30 17:35 WBC 11.5 H (4.0-11.0) 10^3/uL RBC 2.99 L (4.70-6.10) 10^6/uL Hgb 8.9 L (14.0-18.0) g/dL Hct 29.8 L (42.0-54.0) % MCV 99.7 H (80.0-94.0) fL MCH 29.8 (25.9-34.0) pg MCHC 29.9 (29.9-35.2) g/dL RDW 18.7 H (11.0-15.0) % Plt Count 331 (150-450) 10^3/uL MPV 9.9 (9.5-13.5) fL Seg Neuts % (Manual) 32.0 L (43.0-75.0) Band Neutrophils % 1.0 (0-5) % Lymphocytes % (Manual) 66.0 H (20.5-60.0) % Monocytes % (Manual) 1.0 L (1.7-12.0) % Eosinophils % (Manual) 0.0 L (0.9-7.0) % Basophils % (Manual) 0.0 L (0.2-2.0) % Neutrophils # (Manual) 3.68 (1.4-6.5) 10^3/uL Band Neutrophils # 0.1 (0.0-0.3) 10^3/uL Lymphocytes # (Manual) 7.59 H (1.20-3.80) 10^3/uL Monocytes # (Manual) 0.11 L (0.30-0.80) 10^3/uL Eosinophils # (Manual) 0.00 (0.00-0.70) 10^3/uL Basophils # (Manual) 0.00 (0.00-0.10) 10^3/uL Plt Clumps, EDTA Rare Anisocytosis 2+ Macrocytosis 1+ PT 10.5 (9.0-11.6) sec INR 0.99 APTT 26.0 (22.3-36.2) sec Puncture Site R rad ABG pH 7.212 L* (7.350-7.450) ABG pCO2 15.6 L (35.0-45.0) mmHg ABG pO2 282.0 H (80.0-100.0) mmHg ABG HCO3 6.3 L (22.0-26.0) mmol/L ABG O2 Saturation >100.0 % ABG Base Excess -21.6 L (-2.0-2.0) mmol/L Juan Test Positive (POSITIVE) Sodium 134 L (136-145) mmol/L Potassium 3.5 (3.5-5.1) mmol/L Chloride 96 L (98-107) mmol/L Carbon Dioxide 12.5 L (21.0-32.0) mmol/L Anion Gap 29.0 BUN 8.0 (7.0-18.0) mg/dL Creatinine 1.56 H (0.70-1.30) mg/dL Est GFR ( Amer) 54 L (>=60 mL/min/1.73m^2) Est GFR (Non-Af Amer) 45 L (>=60 mL/min/1.73m^2) BUN/Creatinine Ratio 5.1 Glucose 158 H (74-106) mg/dL Lactate 19.7 H* (0.4-2.0) mmol/L Calcium 9.1 (8.5-10.1) mg/dL Total Bilirubin 0.8 (0.2-1.0) mg/dL Direct Bilirubin 0.5 H (0.0-0.2) mg/dL AST 66 H (15-37) U/L ALT 36 (16-63) U/L Alkaline Phosphatase 140 H (46-116) U/L Troponin I High Sens 10.1 (4.0-76.1) pg/mL Total Protein 7.2 (6.4-8.2) g/dL Albumin 2.2 L (3.4-5.0) g/dL Globulin 5.0 g/dL Albumin/Globulin Ratio 0.4 Amylase 52 (25-115) U/L Lipase 59.0 (16.0-77.0) U/L Urine Color (YELLOW) Urine Clarity (CLEAR) Urine pH (5.0-9.0) Ur Specific [place] (1.005-1.025) Urine Protein (NEG/TRACE) mg/dL Urine Glucose (UA) (NEGATIVE) mg/dL Urine Ketones (NEGATIVE) mg/dL Urine Occult Blood (NEGATIVE) Urine Nitrite (NEGATIVE) Urine Bilirubin (NEGATIVE) Urine Urobilinogen (0.2-1.0) EU/dL Ur Leukocyte Esterase (NEGATIVE) Urine RBC (0-2) #/HPF Urine WBC (NONE SEEN) #/HPF Ur Squamous Epith Cells (NONE/RARE) #/LPF Urine Crystals (None Seen) #/HPF Urine Bacteria (NONE SEEN) #/HPF Urine Casts (NONE SEEN) #/LPF Fine Granular Casts WBC Casts Urine Mucus (NONE SEEN) Ur Culture Indicated? Stool Occult Blood Negative Ethanol Quant <3 mg/dL Influenza Type A Ag Influenza Type B Ag SARS-CoV-2 Ag (CV2AG) (NEGATIVE) 03/12/24 03/12/24 03/12/24 Range/Units 17:55 19:14 20:26 WBC (4.0-11.0) 10^3/uL RBC (4.70-6.10) 10^6/uL Hgb (14.0-18.0) g/dL Hct (42.0-54.0) % MCV (80.0-94.0) fL MCH (25.9-34.0) pg MCHC (29.9-35.2) g/dL RDW (11.0-15.0) % Plt Count (150-450) 10^3/uL MPV (9.5-13.5) fL Seg Neuts % (Manual) (43.0-75.0) Band Neutrophils % (0-5) % Lymphocytes % (Manual) (20.5-60.0) % Monocytes % (Manual) (1.7-12.0) % Eosinophils % (Manual) (0.9-7.0) % Basophils % (Manual) (0.2-2.0) % Neutrophils # (Manual) (1.4-6.5) 10^3/uL Band Neutrophils # (0.0-0.3) 10^3/uL Lymphocytes # (Manual) (1.20-3.80) 10^3/uL Monocytes # (Manual) (0.30-0.80) 10^3/uL Eosinophils # (Manual) (0.00-0.70) 10^3/uL Basophils # (Manual) (0.00-0.10) 10^3/uL Plt Clumps, EDTA Anisocytosis Macrocytosis PT (9.0-11.6) sec INR APTT (22.3-36.2) sec Puncture Site ABG pH (7.350-7.450) ABG pCO2 (35.0-45.0) mmHg ABG pO2 (80.0-100.0) mmHg ABG HCO3 (22.0-26.0) mmol/L ABG O2 Saturation % ABG Base Excess (-2.0-2.0) mmol/L Juan Test (POSITIVE) Sodium (136-145) mmol/L Potassium (3.5-5.1) mmol/L Chloride (98-107) mmol/L Carbon Dioxide (21.0-32.0) mmol/L Anion Gap BUN (7.0-18.0) mg/dL Creatinine (0.70-1.30) mg/dL Est GFR ( Amer) (>=60 mL/min/1.73m^2) Est GFR (Non-Af Amer) (>=60 mL/min/1.73m^2) BUN/Creatinine Ratio Glucose (74-106) mg/dL Lactate 3.7 H* (0.4-2.0) mmol/L Calcium (8.5-10.1) mg/dL Total Bilirubin (0.2-1.0) mg/dL Direct Bilirubin (0.0-0.2) mg/dL AST (15-37) U/L ALT (16-63) U/L Alkaline Phosphatase (46-116) U/L Troponin I High Sens (4.0-76.1) pg/mL Total Protein (6.4-8.2) g/dL Albumin (3.4-5.0) g/dL Globulin g/dL Albumin/Globulin Ratio Amylase (25-115) U/L Lipase (16.0-77.0) U/L Urine Color Yellow (YELLOW) Urine Clarity Clear (CLEAR) Urine pH 6.0 (5.0-9.0) Ur Specific [place] 1.015 (1.005-1.025) Urine Protein 100 A (NEG/TRACE) mg/dL Urine Glucose (UA) 100 A (NEGATIVE) mg/dL Urine Ketones Trace A (NEGATIVE) mg/dL Urine Occult Blood Small A (NEGATIVE) Urine Nitrite Negative (NEGATIVE) Urine Bilirubin Negative (NEGATIVE) Urine Urobilinogen 0.2 (0.2-1.0) EU/dL Ur Leukocyte Esterase Negative (NEGATIVE) Urine RBC 0-2 (0-2) #/HPF Urine WBC 5-10 A (NONE SEEN) #/HPF Ur Squamous Epith Cells Rare (NONE/RARE) #/LPF Urine Crystals None seen (None Seen) #/HPF Urine Bacteria Small A (NONE SEEN) #/HPF Urine Casts Seen A (NONE SEEN) #/LPF Fine Granular Casts Few WBC Casts Rare Urine Mucus None seen (NONE SEEN) Ur Culture Indicated? Yes Stool Occult Blood Ethanol Quant mg/dL Influenza Type A Ag Negative Influenza Type B Ag Negative SARS-CoV-2 Ag (CV2AG) Negative (NEGATIVE) ECG Data Attestation: I personally reviewed and interpreted this ECG as follows: (EKG my interpretation shows sinus tachycardia with rate of 114 and a great deal of artifact.) Discharge Plan Discharge Chief Complaint: Fall Clinical Impression: General weakness, Pulmonary embolism, Primary lung cancer Patient Disposition: Admitted As Inpatient Discharge Date/Time: 03/12/24 23:06
[2024-03-12 18:05] LABS: INR 0.99; Prothrombin Time 10.5 sec (9.0-11.6)
[2024-03-12 18:06] LABS: Anisocytosis 2+; Band Neutrophils Absolute 0.1 10^3/uL (0.0-0.3); Lymphocytes Absolute Manual 7.59 10^3/uL (1.20-3.80); Macrocytosis 1+; Monocytes Absolute Manual 0.11 10^3/uL (0.30-0.80); Platelet Clumps RARE; Segmented Neut Absolute Manual 3.68 10^3/uL (1.4-6.5)
[2024-03-12 18:10] LABS: ABG PCO2 15.6 mmHg (35.0-45.0); Base Excess ABG -21.6 mmol/L (-2.0-2.0); HCO3 ABG 6.3 mmol/L (22.0-26.0)
[2024-03-12 18:11] LABS: Allen Test POSITIVE (POSITIVE); Oxygen Saturation ABG >100.0 %
[2024-03-12 18:11] LABS: Alanine Aminotransferase 36 U/L (16-63); Albumin Globulin Ratio 0.4; Albumin Level 2.2 g/dL (3.4-5.0); Alkaline Phosphatase 140 U/L (46-116); Amylase 52 U/L (25-115); Aspartate Amino Transferase 66 U/L (15-37); BUN Creatinine Ratio 5.1; Bilirubin Direct 0.5 mg/dL (0.0-0.2); Bilirubin Total 0.8 mg/dL (0.2-1.0); Calcium 9.1 mg/dL (8.5-10.1); Carbon Dioxide 12.5 mmol/L (21.0-32.0); Chloride 96 mmol/L (98-107); Estimated GFR (African America 54 (>=60 mL/min/1.73m^2); Estimated GFR (Non-African Ame 45 (>=60 mL/min/1.73m^2); Ethanol <3 mg/dL; Glucose 158 mg/dL (74-106); Potassium 3.5 mmol/L (3.5-5.1); Sodium 134 mmol/L (136-145); Total Protein 7.2 g/dL (6.4-8.2); Troponin I High Sensitivity 10.1 pg/mL (4.0-76.1)
[2024-03-12 18:18] LABS: Puncture Site R RAD; pH ABG 7.212 (7.350-7.450)
[2024-03-12 18:20] LABS: O2 Mode NRB
[2024-03-12 18:31] LABS: Lactate/Lactic Acid 19.7 mmol/L (0.4-2.0)
[2024-03-12 18:34] LABS: Influenza Virus A Antigen Negative; Influenza Virus B Antigen Negative; Internal Control Within Normal Limits; SARS-CoV-2 Ag NEGATIVE (NEGATIVE)
--- NOTE | 2024-03-12 18:52 | PC.NURSE ---
spoke with pt daughter, she will be here as soon as she can.
[2024-03-12 19:21] LABS: Bilirubin Urine NEGATIVE (NEGATIVE); Blood Urine SMALL (NEGATIVE); Clarity Urine CLEAR (CLEAR); Color Urine YELLOW (YELLOW); Glucose Urine UA 100 mg/dL (NEGATIVE); Ketones Urine TRACE mg/dL (NEGATIVE); Leukocyte Esterase Urine NEGATIVE (NEGATIVE); Nitrite Urine NEGATIVE (NEGATIVE); Protein Urine 100 mg/dL (NEG/TRACE); Specific Gravity Urine 1.015 (1.005-1.025); Urobilinogen Urine 0.2 EU/dL (0.2-1.0)
[2024-03-12 19:30] LABS: Bacteria Urine SMALL #/HPF (NONE SEEN); Cast Seen? SEEN #/LPF (NONE SEEN); Crystals Seen? None Seen #/HPF (None Seen); Mucus Urine NONE SEEN (NONE SEEN); RBC Urine 0-2 #/HPF (0-2); Squamous Epithelial Cell Urine RARE #/LPF (NONE/RARE)
[2024-03-12 19:31] LABS: Fine Granular Casts Urine FEW; Urine Culture Indicated YES; White Blood Cell Casts Urine RARE
--- NOTE | 2024-03-12 20:09 | ED_ITS ---
HPI HPI - General Adult General Chief complaint: Fall Stated complaint: fall Time Seen by Provider: 03/12/24 17:38 Source: other Source information: ems Mode of arrival: ambulance History of Present Illness HPI narrative: This 63-year-old male who was recently treated for lung cancer was signed out to me at shift change. The patient presents via EMS for generalized weakness. According to Jesika he was extremely mottled upon arrival and hypothermic. An IV was placed and he was placed on a Yuli hugger. Reviewed his EKG which is a sinus tachycardia at 104 bpm with a normal axis. Labs are reviewed. He does have a elevated white count at 11 with a stable but mildly low hemoglobin 8.9. Lactic acid was markedly elevated at 19.4. Creatinine was elevated compared to his baseline at 1.56. Troponin is normal. Urine is positive for mild infection and chest x-ray was read by radiology with findings concerning for an infiltrate. He was given IV Zosyn and additional liter of IV fluid. The patient was evaluated. He states he has been becoming more and more weak over the course of the past several days and today just could not get his leg up to get into his truck. He denies that he has been having any vomiting or diarrhea. He states his appetite has not been good for the past several days. He denies any chest pain or shortness of breath at this time. He denies any abdominal pain. A Diaz catheter was placed upon arrival and he has had very little urine output. I ordered IV Zosyn for the questionable pneumonia on his chest x-ray and additional liter of normal saline. At this time I am waiting for CT scans of the chest abdomen and pelvis. He denies any need for any pain medication at this time. Related Data Home Medications ?Medication ?Instructions ?Recorded ?Confirmed metoprolol succinate 50 mg 50 mg PO DAILY 07/26/22 03/12/24 tablet,extended release 24 hr calcium carbonate 600 mg PO .TIDAC 07/19/23 03/12/24 magnesium oxide 400 mg (241.3 mg 400 mg PO TID 07/19/23 03/12/24 magnesium) tablet ibuprofen 200 mg tablet 200 mg PO Q8H PRN pain 03/12/24 03/12/24 omeprazole 20 mg capsule,delayed 20 mg PO .acb 03/12/24 03/12/24 release spironolactone 25 mg tablet 25 mg PO DAILY 03/12/24 03/12/24 Previous Rx's ?Medication ?Instructions ?Recorded potassium chloride 10 mEq 10 meq PO TID #90 tabs 12/04/22 tablet,extended release(part/cryst) (Klor-Con M) Allergies Allergy/AdvReac Type Severity Reaction Status Date / Time No Known Drug Allergies Allergy Verified 03/12/24 18:01 Opioid HPI Opioid Management Most Recent Opioid Data: Last Pain Scale 3 07/19/23 00:00 07/19/23 Last Pain Intensity 0 12/02/22 10:31 12/02/22 Last Pain Assessment 03/13/24 20:00 Last ORT Total Score 9 03/12/24 23:30 03/12/24 Last ORT Risk Category High Risk 03/12/24 23:30 03/12/24 Ur Phencyclidine Scrn Negative (NEGATIVE) 07/29/22 18:40 0604/01 [facility] Medical History (Updated 03/14/24 @ 03:34 by Ruma Levine MD) Severe protein-calorie malnutrition ?E43 - Unspecified severe protein-calorie malnutrition (ICD-10) Megaloblastic anemia due to alcoholism ?D53.1 - Other megaloblastic anemias, not elsewhere classified (ICD-10) Alcoholic fatty liver ?K70.0 - Alcoholic fatty liver (ICD-10) Adenocarcinoma of left lung ?C34.92 - Malignant neoplasm of unspecified part of left bronchus or lung (ICD-10) Chronic heart failure with preserved ejection fraction (HFpEF) ?I50.32 - Chronic diastolic (congestive) heart failure (ICD-10) COPD (chronic obstructive pulmonary disease) ?J44.9 - Chronic obstructive pulmonary disease, unspecified (ICD-10) Alcohol abuse ?F10.10 - Alcohol abuse, uncomplicated (ICD-10) Tobacco dependence ?F17.200 - Nicotine dependence, unspecified, uncomplicated (ICD-10) Protein-calorie malnutrition, moderate ?E44.0 - Moderate protein-calorie malnutrition (ICD-10) Sepsis ?A41.9 - Sepsis, unspecified organism (ICD-10) Dyspnea ?R06.00 - Dyspnea, unspecified (ICD-10) Disorder of electrolytes ?E87.8 - Other disorders of electrolyte and fluid balance, not elsewhere classified (ICD-10) Generalized weakness ?R53.1 - Weakness (ICD-10) Elevated brain natriuretic peptide (BNP) level ?R79.89 - Other specified abnormal findings of blood chemistry (ICD-10) (HFpEF) heart failure with preserved ejection fraction ?I50.30 - Unspecified diastolic (congestive) heart failure (ICD-10) Generalized weakness ?R53.1 - Weakness (ICD-10) Liver mass ?R16.0 - Hepatomegaly, not elsewhere classified (ICD-10) Anemia ?D64.9 - Anemia, unspecified (ICD-10) New onset of congestive heart failure ?I50.9 - Heart failure, unspecified (ICD-10) Alcoholic ?F10.20 - Alcohol dependence, uncomplicated (ICD-10) Mass of upper lobe of left lung ?R91.8 - Other nonspecific abnormal finding of lung field (ICD-10) Adult failure to thrive ?R62.7 - Adult failure to thrive (ICD-10) Lung mass ?R91.8 - Other nonspecific abnormal finding of lung field (ICD-10) Generalized weakness ?R53.1 - Weakness (ICD-10) Surgical History History of tonsillectomy ?Z90.89 - Acquired absence of other organs (ICD-10) History of appendectomy ?Z90.49 - Acquired absence of other specified parts of digestive tract (ICD- 10) Family History Mother Family history of cancer Family history of diabetes mellitus Father Family history of diabetes mellitus Social History Smoking status: Current every day smoker Highest level of school completed/degree received: 9th grade Little interest or pleasure in doing things: not at all Feeling down, depressed, or hopeless: not at all Gender Identity: male Exam Constitutional Vital Signs, click to edit/add: Last Vital Signs Temp 98.1 F 03/13/24 20:00 Pulse 88 03/13/24 20:00 Resp 16 03/13/24 16:00 BP 132/80 03/13/24 20:00 Pulse Ox 94 L 03/13/24 20:00 O2 Del Method Room Air 03/13/24 20:00 O2 Flow Rate 4 03/12/24 17:31 Course Course Hospital Course: Patient remained on Heparin drip, Vancomycin and Zosyn. Vitals at the time of discharge are stable. He will be transferred to [facility] for higher level of Care under care of Dr. Arroyo as accepting physician. Vital Signs Vital signs: Vital Signs Temperature 95.7 F L 03/12/24 17:31 Pulse Rate 120 H 03/12/24 17:31 Respiratory Rate 32 H 03/12/24 17:31 Blood Pressure 136/93 H 03/12/24 17:31 Pulse Oximetry 100 03/12/24 17:31 Oxygen Delivery Method Nasal Cannula 03/12/24 17:31 Oxygen Delivery Flow Rate 4 03/12/24 17:31 Temperature 98.1 F 03/13/24 20:00 Pulse Rate 88 03/13/24 20:00 Respiratory Rate 16 03/13/24 16:00 Blood Pressure 132/80 03/13/24 20:00 Pulse Oximetry 94 L 03/13/24 20:00 Oxygen Delivery Method Room Air 03/13/24 20:00 Oxygen Delivery Flow Rate 4 03/12/24 17:31 Medical Decision Making Lab Data Labs: Lab Results 03/12/24 03/12/24 03/12/24 Range/Units 17:20 17:30 17:35 WBC 11.5 H (4.0-11.0) 10^3/uL RBC 2.99 L (4.70-6.10) 10^6/uL Hgb 8.9 L (14.0-18.0) g/dL Hct 29.8 L (42.0-54.0) % MCV 99.7 H (80.0-94.0) fL MCH 29.8 (25.9-34.0) pg MCHC 29.9 (29.9-35.2) g/dL RDW 18.7 H (11.0-15.0) % Plt Count 331 (150-450) 10^3/uL MPV 9.9 (9.5-13.5) fL Seg Neuts % (Manual) 32.0 L (43.0-75.0) Band Neutrophils % 1.0 (0-5) % Lymphocytes % (Manual) 66.0 H (20.5-60.0) % Monocytes % (Manual) 1.0 L (1.7-12.0) % Eosinophils % (Manual) 0.0 L (0.9-7.0) % Basophils % (Manual) 0.0 L (0.2-2.0) % Neutrophils # (Manual) 3.68 (1.4-6.5) 10^3/uL Band Neutrophils # 0.1 (0.0-0.3) 10^3/uL Lymphocytes # (Manual) 7.59 H (1.20-3.80) 10^3/uL Monocytes # (Manual) 0.11 L (0.30-0.80) 10^3/uL Eosinophils # (Manual) 0.00 (0.00-0.70) 10^3/uL Basophils # (Manual) 0.00 (0.00-0.10) 10^3/uL Plt Clumps, EDTA Rare Anisocytosis 2+ Macrocytosis 1+ PT 10.5 (9.0-11.6) sec INR 0.99 APTT 26.0 (22.3-36.2) sec Puncture Site R rad ABG pH 7.212 L* (7.350-7.450) ABG pCO2 15.6 L (35.0-45.0) mmHg ABG pO2 282.0 H (80.0-100.0) mmHg ABG HCO3 6.3 L (22.0-26.0) mmol/L ABG O2 Saturation >100.0 % ABG Base Excess -21.6 L (-2.0-2.0) mmol/L Juan Test Positive (POSITIVE) Sodium 134 L (136-145) mmol/L Potassium 3.5 (3.5-5.1) mmol/L Chloride 96 L (98-107) mmol/L Carbon Dioxide 12.5 L (21.0-32.0) mmol/L Anion Gap 29.0 BUN 8.0 (7.0-18.0) mg/dL Creatinine 1.56 H (0.70-1.30) mg/dL Est GFR ( Amer) 54 L (>=60 mL/min/1.73m^2) Est GFR (Non-Af Amer) 45 L (>=60 mL/min/1.73m^2) BUN/Creatinine Ratio 5.1 Glucose 158 H (74-106) mg/dL Lactate 19.7 H* (0.4-2.0) mmol/L Calcium 9.1 (8.5-10.1) mg/dL Total Bilirubin 0.8 (0.2-1.0) mg/dL Direct Bilirubin 0.5 H (0.0-0.2) mg/dL AST 66 H (15-37) U/L ALT 36 (16-63) U/L Alkaline Phosphatase 140 H (46-116) U/L Troponin I High Sens 10.1 (4.0-76.1) pg/mL Total Protein 7.2 (6.4-8.2) g/dL Albumin 2.2 L (3.4-5.0) g/dL Globulin 5.0 g/dL Albumin/Globulin Ratio 0.4 Amylase 52 (25-115) U/L Lipase 59.0 (16.0-77.0) U/L Urine Color (YELLOW) Urine Clarity (CLEAR) Urine pH (5.0-9.0) Ur Specific [place] (1.005-1.025) Urine Protein (NEG/TRACE) mg/dL Urine Glucose (UA) (NEGATIVE) mg/dL Urine Ketones (NEGATIVE) mg/dL Urine Occult Blood (NEGATIVE) Urine Nitrite (NEGATIVE) Urine Bilirubin (NEGATIVE) Urine Urobilinogen (0.2-1.0) EU/dL Ur Leukocyte Esterase (NEGATIVE) Urine RBC (0-2) #/HPF Urine WBC (NONE SEEN) #/HPF Ur Squamous Epith Cells (NONE/RARE) #/LPF Urine Crystals (None Seen) #/HPF Urine Bacteria (NONE SEEN) #/HPF Urine Casts (NONE SEEN) #/LPF Fine Granular Casts WBC Casts Urine Mucus (NONE SEEN) Ur Culture Indicated? Stool Occult Blood Negative Ethanol Quant <3 mg/dL Influenza Type A Ag Influenza Type B Ag SARS-CoV-2 Ag (CV2AG) (NEGATIVE) 03/12/24 03/12/24 03/12/24 Range/Units 17:55 19:14 20:26 WBC (4.0-11.0) 10^3/uL RBC (4.70-6.10) 10^6/uL Hgb (14.0-18.0) g/dL Hct (42.0-54.0) % MCV (80.0-94.0) fL MCH (25.9-34.0) pg MCHC (29.9-35.2) g/dL RDW (11.0-15.0) % Plt Count (150-450) 10^3/uL MPV (9.5-13.5) fL Seg Neuts % (Manual) (43.0-75.0) Band Neutrophils % (0-5) % Lymphocytes % (Manual) (20.5-60.0) % Monocytes % (Manual) (1.7-12.0) % Eosinophils % (Manual) (0.9-7.0) % Basophils % (Manual) (0.2-2.0) % Neutrophils # (Manual) (1.4-6.5) 10^3/uL Band Neutrophils # (0.0-0.3) 10^3/uL Lymphocytes # (Manual) (1.20-3.80) 10^3/uL Monocytes # (Manual) (0.30-0.80) 10^3/uL Eosinophils # (Manual) (0.00-0.70) 10^3/uL Basophils # (Manual) (0.00-0.10) 10^3/uL Plt Clumps, EDTA Anisocytosis Macrocytosis PT (9.0-11.6) sec INR APTT (22.3-36.2) sec Puncture Site ABG pH (7.350-7.450) ABG pCO2 (35.0-45.0) mmHg ABG pO2 (80.0-100.0) mmHg ABG HCO3 (22.0-26.0) mmol/L ABG O2 Saturation % ABG Base Excess (-2.0-2.0) mmol/L Juan Test (POSITIVE) Sodium (136-145) mmol/L Potassium (3.5-5.1) mmol/L Chloride (98-107) mmol/L Carbon Dioxide (21.0-32.0) mmol/L Anion Gap BUN (7.0-18.0) mg/dL Creatinine (0.70-1.30) mg/dL Est GFR ( Amer) (>=60 mL/min/1.73m^2) Est GFR (Non-Af Amer) (>=60 mL/min/1.73m^2) BUN/Creatinine Ratio Glucose (74-106) mg/dL Lactate 3.7 H* (0.4-2.0) mmol/L Calcium (8.5-10.1) mg/dL Total Bilirubin (0.2-1.0) mg/dL Direct Bilirubin (0.0-0.2) mg/dL AST (15-37) U/L ALT (16-63) U/L Alkaline Phosphatase (46-116) U/L Troponin I High Sens (4.0-76.1) pg/mL Total Protein (6.4-8.2) g/dL Albumin (3.4-5.0) g/dL Globulin g/dL Albumin/Globulin Ratio Amylase (25-115) U/L Lipase (16.0-77.0) U/L Urine Color Yellow (YELLOW) Urine Clarity Clear (CLEAR) Urine pH 6.0 (5.0-9.0) Ur Specific [place] 1.015 (1.005-1.025) Urine Protein 100 A (NEG/TRACE) mg/dL Urine Glucose (UA) 100 A (NEGATIVE) mg/dL Urine Ketones Trace A (NEGATIVE) mg/dL Urine Occult Blood Small A (NEGATIVE) Urine Nitrite Negative (NEGATIVE) Urine Bilirubin Negative (NEGATIVE) Urine Urobilinogen 0.2 (0.2-1.0) EU/dL Ur Leukocyte Esterase Negative (NEGATIVE) Urine RBC 0-2 (0-2) #/HPF Urine WBC 5-10 A (NONE SEEN) #/HPF Ur Squamous Epith Cells Rare (NONE/RARE) #/LPF Urine Crystals None seen (None Seen) #/HPF Urine Bacteria Small A (NONE SEEN) #/HPF Urine Casts Seen A (NONE SEEN) #/LPF Fine Granular Casts Few WBC Casts Rare Urine Mucus None seen (NONE SEEN) Ur Culture Indicated? Yes Stool Occult Blood Ethanol Quant mg/dL Influenza Type A Ag Negative Influenza Type B Ag Negative SARS-CoV-2 Ag (CV2AG) Negative (NEGATIVE) Discharge Plan Discharge Chief Complaint: Fall Clinical Impression: General weakness, Pulmonary embolism, Primary lung cancer Patient Disposition: Admitted As Inpatient Discharge Date/Time: 03/12/24 23:06
[2024-03-12] MEDS: 0.9 % SODIUM CHLORIDE 1,000 ML 1000 ML IV (20:19)
[2024-03-12] MEDS: PIPERACILLIN SODIUM/TAZOBACTAM 3.375 GM in 0.9 % SODIUM CHLORIDE 50 ML IV (20:19)
--- NOTE | 2024-03-12 20:50 | CT_ITS ---
The [address] [address] Patient Name: BOBBY GRAJEDA MRN: [id number] date: 1960 Sex: M Assigned Patient Location: ER Current Patient Location: ER Accession/Order Number: [id number] Exam Date: 03/12/2024 21:07 Report Date: 03/12/2024 21:42 At the request of: BRIAN MARKER Procedure: CT head/brain wo con EXAM: CT head/brain wo con HISTORY: AMS, weakness COMPARISON: CT brain 07/26/2022 TECHNIQUE: Axial CT scans through the head were obtained without IV contrast administration. Dose reduction techniques were achieved by using: automated exposure control and/or adjustment of mA and /or kV according to patient size and/or use of iterative reconstruction technique. FINDINGS: There is no evidence of acute intracranial hemorrhage or abnormal extra-axial fluid collection. No mass effect or midline shift is seen. There is no evidence of large acute territorial infarction. There is no hydrocephalus. There is age advanced moderate cerebral atrophy. Mild decreased attenuation of the supratentorial white matter, likely represents chronic microvascular ischemia. There are prominent perivascular spaces are remote lacunar infarcts in bilateral inferior basal ganglia. To the limit of CT, the posterior fossa appears unremarkable. There are atherosclerotic calcifications of cavernous segments of bilateral internal carotid arteries. No definite acute fracture is identified. Soft tissues are unremarkable. The visualized orbits show no abnormality. The visualized paranasal sinuses show no air-fluid level. Mastoid air cells are clear. CT/CT head/brain wo con IMPRESSION: No CT evidence of acute intracranial abnormality. If there is sufficient clinical concern for acute infarct, consider MRI for further evaluation. Stable chronic findings, as described above. Electronically authenticated by: GRAHAM UNLU Date: 03/12/2024 21:42
[2024-03-12 20:57] LABS: Lactate/Lactic Acid 3.7 mmol/L (0.4-2.0)
[2024-03-12] MEDS: HEPARIN SODIUM (PORCINE) 5,000 UNIT/ML VIAL 7300 UNIT IV (22:35)
[2024-03-12] MEDS: HEPARIN SODIUM,PORCINE/D5W 25,000 UNIT/500 ML IV.SOLN 32.658 UNIT IV (22:36)
--- OUTSIDE RECORDS SUMMARY | 2024-03-12 23:25 | XMS_ITS | CCD ---
Author Organization [facility] Care Team Providers Care Accounting Machine Operator Name Role Phone EDWIN Liao, SEN Attending Unavailable EDWIN ., SEN Admitting Unavailable KAREN, DR TREVINO Primary Care Unavailable COLLINS, DR ANNE Cornejo Consulting Unavailable YAMILA HUNTER Consulting Unavailable EDWIN ., SEN Consulting Unavailable CECILIO ., NICHOLE Attending Unavailable CECILIO ., NICHOEL Admitting Unavailable HOUSE, DR TREVINO Primary Care [...] Unavailable HARSH, LAISHA Otto Attending Unavailable HARSH, ALISHA Otto Admitting Unavailable HIGHLANDER, LAISHA Otto Consulting [...] ON FILE] Propensity to adverse reactions (disorder) [facility] Repository Medications Current Medications Medication Drug [...] 03-11-2023 Episodic Other aftercare (1 source) Other alf (current) drug therapy; Translations: [OTH CUSTODIAL CURRENT DRUG THERAPY] Onset: 03-24-2022 Episodic Other [...] Annalisa 06-16-2023 CNPN Telephone (RADTSA) JARET GRAJEDA ([id number]) 1960 M Date Time Provider Department 06/16/23 [...] Status:Closed by CATHY JOVEL on 06/23/23 Normal [facility] CNOVon 04-08-2023 CNOV Office Visit (RADTSA ) JARET GRAJEDA ([id number]) 1960 M Date Time Provider Department 04/08/23 [...] 62-year-old gentleman diagnosed with a Stage IB, [id number], non-small cell lung cancer (adenocarcinoma) arising from [...] Encounter Status:Closed by DON MEJIA on 04/18/23 [facility] 03-24-2023 [facility] Telephone (AiCuris) JARET GRAJEDA ([id number]) 1960 M Date Time Provider Department 03/24/23 DON MEJIA [employer] EntertainmentCHINMAY During your visit today, we recorded the [...] Encounter Status:Closed by CATHY JOVEL on 03/28/23 [facility] 03-11-2023 [facility] Telephone (AiCuris) JARET GRAJEDA ([id number]) 1960 M Date Time Provider Department 03/11/23 [...] of lung [D49.1] Order(s):CT CHEST W IVCON [[id number]] Order #: [id number] FUTURE [] iv contrast (will be provided [...] EachRfl: 0 CREATININE BLD [SQCRET] Order #: [id number] FUTURE Prescriptions as of 03/14/2023 - metoprolol [...] Encounter Status:Closed by LILI MARTINEZ on 03/14/23 [facility] CNOVon 02-28-2023 CNOV Office Visit (RADTSA ) JARET GRAJEDA ([id number]) 1960 M Date Time Provider Department 02/28/23 [...] 62-year-old gentleman diagnosed with a Stage IB, [id number], non-small cell lung cancer (adenocarcinoma) arising from [...] Encounter Status:Closed by DON MEJIA on 03/03/23 [facility] CNOVon 02-11-2023 CNOV Office Visit (RADTSA ) JARET GRAJEDA ([id number]) 1960 M Date Time Provider Department 02/11/23 11:30 AM DON MEJIA During your visit today, we recorded the following information about you: Don Mejia MD 02/22/2023 4:26 AM Addendum Radiation Oncology - Follow Up Note PATIENT NAME: Jaret Grajeda PATIENT DIAGNOSIS/PATIENT IDENTIFICATION: Mr. Grajeda is a 62-year-old gentleman diagnosed with Stage IB, [id number], non-small cell lung cancer (adenocarcinoma) arising from [...] cancer. [facility] a cardiac workup which [...] 62-year-old gentleman diagnosed with a Stage IB, [id number], non-small cell lung cancer (adenocarcinoma) arising from [...] as potent (more content not included)... Normal [facility]20[facility] JARET GRAJEDA ([id number]) 1960 Date Time Provider Department 01/25/23 DON MEJIA During your visit today, we recorded the following information about you: Allergies As of Date: 01/25/2023 (No Known Allergies) Date Reviewed: 12/09/2022 Reviewed by: Shilpa Pop, Optician - Fully Assessed Prescriptions as of 01/26/2023 - metoprolol succinate ER (TOPROL XL) 50 mg 24 hr tablet Take 1 tablet by mouth every 12 hours. Problem List As Of Date: 01/25/2023 (None) Encounter Status:Closed by PURNIMA HAYES on 01/26/23 [facility] JARET GRAJEDA ([id number]) 1960 Date Time Provider Department 01/25/23 DON [...] Date Reviewed: 12/09/2022 Reviewed by: Shilpa Pop, Optician - Fully Assessed Reason for Visit: Appointment Confirmation [3505] Prescriptions as of 01/26/2023 - metoprolol succinate ER (TOPROL XL) 50 mg 24 hr tablet Take 1 tablet by mouth every 12 hours. Problem List As Of Date: 01/25/2023 (None) Encounter Status:Closed by PURNIMA HAYES on 01/26/23 Normal [facility] CT Chest W contrast Maci IMPRESSION: 1. [...] any questions regarding this interpretation, please call [phone]. If you are unable to reach us at the number above, please feel free to contact [facility] eRadiology at [phone]. DIVISION OF RADIOLOGY * * *Final Report* * * DATE OF EXAM: Jan 24 2023 1:35PM [facility] 0539 - CT CHEST W [...] study. The upper abdomen is otherwise unremarkable. Squeak Rattle And Leak Repairer (topogram) images: No additional findings. DIVISION OF RADIOLOGY Provider, [facility] - 01/25/2023 * * *Final Report* * * DATE OF EXAM: Jan 24 2023 1:35PM [facility] 0539 - CT CHEST W [...] study. The upper abdomen is otherwise unremarkable. Squeak Rattle And Leak Repairer (topogram) images: No additional findings. IMPRESSION IMPRESSION: [...] any questions regarding this interpretation, please call [phone]. If you are unable to reach us at the number above, please feel free to contact [facility] eRadiology at [phone]. [facility] CT Chest W contrast IVOrdere d By: Ccf Provider on 01-25-2023 [facility] PET+CT Guidance for localiza tion of [...] any questions regarding this interpretation, please call [phone]. If you are unable to reach us at the number above, please feel free to contact [facility] eRadiology at [phone]. DIVISION OF RADIOLOGY * * *Final Report* [...] noncontrast CT scan. DIVISION OF RADIOLOGY Provider, [facility] - 01/25/2023 * * *Final Report* * [...] any questions regarding this interpretation, please call [phone]. If you are unable to reach us at the number above, please feel free to contact [facility]iology at [phone]. [facility] PET+CT Guidance for localiza tion of tumor of Skull base to mid-thigh-- W 18F-FDG IVOrdered By: Ccf Provider on 01-25-2023 [facility] CREATININE BLDon 01-24-2023 Creatinine [Mass/Vol] 0.84 mg/dL Normal 0.73-1.22 [facility] Comment on above: Order Comment: Wesley starr Type: BLOOD SPECIMENOrdering Facility: [facility] Address: [address] [id number] Performed By: #### C RET1 ####[facility] LABCLIA [id number] [place] [address] Creatinine and Glomerular filtration rate.predicted panel (S/P/Bld) 97 mL/min/1.73m??? Normal >=60 [facility] Comment on above: Order Comment: Wesley starr Type: BLOOD SPECIMENOrdering Facility: [facility] Address: [address] [place], [place] [id number] Result Comment: Racquel mated Glomerular Filtration Rate [...] GFR. Performed By: #### C RET1 ####[facility] LABCLIA [id number] [place] [address] CREATININE BLDOrdered By: Arabella Willard on 01-24-2023 Creatinine [Mass/Vol] 0.84 mg/dL 0.73 - 1.22 mg/dL [facility] GFR/1.73 sq M.predicted among non-blacks MDRD (S/P/Bld) [Vol rate/Area] 97 mL/min/{1.73_m2} - PINF [facility] Comment on above: Estimated Glomerular Filtration [...] Interpretation and review of laboratory results Normal [facility] CT CHEST W IVCONon 3 CT CHEST W IVCON * * *Final Report* * * DATE OF EXAM: Jan 24 2023 1:35PM [facility] 0539 - CT CHEST W [...] study. The upper abdomen is otherwise unremarkable. Squeak Rattle And Leak Repairer (topogram) images: No additional findings. IMPRESSION: 1. [...] any questions regarding this interpretation, please call [phone]. If you are unable to reach us at the number above, please feel free to contact [facility] eRadiology at [phone]. [id number] N Normal [facility] GLUCOSE, BLOOD (POC)on 01-24 Glucose [Mass/Vol] 188 mg/dL Abnormal 74 - 99 mg/dL [facility] Comment on above: Location:[facility], [address] [place] [address] , [place], [place], [address] The Accu-Chek Inform II glucose meter has [...] Interpretation and review of laboratory results Abnormal [facility] NM PET/CT SKULL-THIGH SUBQon 01-24-2023 NM PET/CT SKULL-THIGH SUBQ * * *Final Report* * * DATE OF EXAM: Jan 24 2023 1:37PM NRN 0063 - [place] PET/CT SKULL-THIGH SUBQ / PROCEDURE REASON: Malignant [...] any questions regarding this interpretation, please call [phone]. If you are unable to reach us at the number above, please feel free to contact [facility] eRadiology at [phone]. [id number] N Normal [facility] No Panel Informationon 01-24 Radiology Study observation (narrative) [facility] Annalisa 01-13-2023 CNPN Telephone (THORMN) JARET GRAJEDA ([id number]) 1960 M Date Time Provider Department 01/13/23 DELFINA BLUE During your visit today, we recorded the following information about you: Jeremiah Gibbs 01/13/2023 3:37 PM Signed Received OSH Hem/Onc office notes 01/04/23 fron [facility] Record scanned in Epic Jeremiah Gibbs, network adminSocrates Walton RN 01/14/2023 2:29 PM Addendum pt to follow with rad onc, Dr Roberto cruz, see note from local oncology dr GARBER Allergies As of Date: 01/13/2023 (No Known Allergies) Date Reviewed: 12/09/2022 Reviewed by: Shilpa Pop, Optician - Fully Assessed Reason for Visit: Received Outside Medical Records [3576] Prescriptions as of 01/14/2023 - metoprolol succinate ER (TOPROL XL) 50 mg 24 hr tablet Take 1 tablet by mouth every 12 hours. Problem List As Of Date: 01/13/2023 (None) Encounter Status:Closed by JEREMIAH GIBBS on 01/13/23 [facility] CNPN Telephone (NCCAP) JARET GRAJEDA ([id number]) 1960 M Date Time Provider Department 01/05/23 [...] Date Reviewed: 12/09/2022 Reviewed by: Shilpa Pop, Optician - Fully Assessed Reason for Visit: Appointment Confirmation [0483] Prescriptions as of 01/06/2023 - iv contrast [...] Encounter Status:Closed by CATHY JOVEL on 01/06/23 [facility] Annalisa 12-09-2022 [facility] Telephone (PARAMJIT) JARET GRAJEDA ([id number]) 1960 M Date Time Provider Department 12/09/22 [...] Date Reviewed: 12/09/2022 Reviewed by: Shilpa Pop, Optician - Fully Assessed Reason for Visit: Appointment Rescheduled [1024] Prescriptions as of 12/09/2022 - metoprolol succinate ER (TOPROL XL) 50 mg 24 hr tablet Take 1 tablet by mouth every 12 hours. Problem List As Of Date: 12/09/2022 (None) Encounter Status:Closed by SOLEDAD DUMONT on 12/09/22 Normal [facility] CARDIAC PERF STRESS/PHARM on 12-09-2022 NM CARDIAC PERF STRESS/PHARM * * *Final Report* * * DATE OF EXAM: Dec 09 2022 11:57AM [facility] 0006 - [place] CARDIAC PERF STRESS/PHARM / PROCEDURE REASON: multiple diagnoses * * * * Physician Interpretation * * * * Stress Laminating Machine Offbearer Report: [facility] ALEXANDRO-2 Date of service: 12/09/2022 [...] See administered radiotracer and doses below. [facility] [place] Date of service: 12/09/2022 10:08:36 AM Ordering [...] * * * -------- NM CTAC Report: [facility] Date of service: 12/09/2022 10:08:36 AM CTAC interpreting physician: Eagle Patel MD PATIENT: Name: MR. JARET GRAJEDA Age: 62 years Gender: M 1. Incidental Findings from limited non-diagnostic CTAC: - Coronary calcifications visualized. * * * Final * * * -------- Stress ECG Report: [place] [address] Date of service: 12/09/2022 10:08:36 AM Ordering physician: DELFINA BLUE tax services specialist: Shilpa Pop Pelt Inspector: Elida Mckeon Interpreting physician: Eagle Patel MD [...] 148/86 mmHg. The double product achieved was 05485. Medications: Last Used METOPROLOL 7 Hours Resting ECG: Normal Sinus Rhythm Symptoms at rest: No symptoms Pharamco (more content not included)... [facility] Telephone (Kevstel GroupA) JARET GRAJEDA ([id number]) 1960 M Date Time Provider Department 10/18/22 [...] Status:Closed by CATHY JOVEL on 12/28/22 Normal [facility] CNOVon 10-14-2022 CNOV Office Visit (THORMN ) NICCI,JARET ([id number]) 1960 Date Time Provider Department 10/14/22 3:40 PM DELFINA BLUE During your visit today, we recorded the following information about you: Temperature Pulse Respiration Blood pressure 97.5 degrees 117/minute 14/minute 180/110 Weight Height 73.5 kg 1.73 m Delfina Blue MD, PhD 10/15/2022 8:39 AM Unsigned Durable Medical Equipment Technician [place] [address] [place] DEPARTMENT OF THORACIC AND CARDIOVASCULAR SURGERY NAME: JARET GRAJEDA [facility] #: [id number] DATE: 10/14/2022 AGE: 62 PHYSICIAN: Delfina Blue [...] very near future. Delfina Blue M.D., Ph.D. :[id number] /[id number] Fernando Noel MD 10/15/2022 4:54 PM Signed [facility] THORACIC SURGERY OUTPATIENT CONSULT NOTE Jaret Grajeda [id number] Requesting Provider: Wade Jones Thoracic Physician: Delfina Blue MD Chief Complaint: lung cancer Impression: Jaret Grajeda is a 62 yoM current heavy 45PYS with newly diagnosed hS2wC3W8 TRISTEN adenoCA. EBUS with negative level 7 [...] Date A (more content not included)... Normal [facility] SIX MINUTE WALKon 10-14-2022 [facility] CNOVon 09-27-2022 CNOV Office Visit (RADTSA ) JARET GRAJEDA ([id number]) 1960 M Date Time Provider Department 09/27/22 [...] PHYSICIAN: Jennifer Garber MD DIAGNOSIS: Stage IB, [id number], non-small cell lung cancer (adenocarcinoma) arising from the left upper lobe of the lung. PATIENT IDENTIFICATION: This patient was seen in the Department of Radiation Oncology at the [facility] with Don Mejia MD. He was accompanied today by his family. Final recommendations will be communicated back to the requesting physician by way of the shared medical record, or letter to requesting physician via US mail. HISTORY OF PRESENT ILLNESS: Mr. Grajeda is a 62-year-old gentleman from [place], [place] and heavy tobacco user who was [...] has 1 child, and lives in the [place], [place] area. 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 He reports an approximate 40-kznk-ycji history of smoking and currently smokes a [...] for malignanc (more content not included)... Normal [facility] CNPPatti 09-27-2022 [facility] Telephone ([facility]) JARET GRAJEDA ([id number]) 1960 M Date Time Provider Department 09/27/22 [...] Encounter Status:Closed by PURNIMA HAYES on 09/27/22 [facility] CNPN Telephone (RODDYA) JARET GRAJEDA ([id number]) 1960 M Date Time Provider Department 09/17/22 [...] supposed to follow-up with Dr. Candelaria in [place] for bronchoscopy/EBUS for pathologic staging of his [...] Encounter Status:Closed by LILI MARTINEZ on 09/23/22 [facility] Annalisa 09-16-2022 [facility] Telephone (ALFREDOMS) JARET GRAJEDA ([id number]) 1960 M Date Time Provider Department 09/16/22 DELFINA BLUE During your visit today, we recorded the following information about you: DumontSoledad 09/16/2022 2:18 PM Signed Left date and time of apt for patient. Sent via [employer] - [id number]. 10/14/2022 at [facility] PFTs at 12:30pm/1pm/1:15pm Th, 10/14/2022 at [facility] Consult w/ Dr. Blue at 3:40pm Allergies As of Date: 09/16/2022 (Not on File) Date Reviewed: Never Reviewed Reason for Visit: Appointment Confirmation [3505] Problem List As Of Date: 09/16/2022 (None) Encounter Status:Closed by DUMONTSOLEDAD on 09/16/22 [facility] CNPNon 09-09-2022 CNPN Telephone (RADTSA) JARET GRAJEDA ([id number]) 1960 M Date Time Provider Department 09/09/22 [...] Status:Closed by LILI MARTINEZ on 09/13/22 Normal [facility] HPon 09-06-2022 HP - Attestation signed by Chinyere Candelaria MD at 09/06/2022 12:24 PM Re-explained the procedure to the patient along with the associated risk of pneumothorax, bleeding, hypoxia, and respiratory failure. Patient is agreeable and will proceed with the scheduled bronchoscopy and EBUS TBNA Chinyere Candelaria MD Interventional Pulmonary Medicine Pulmonary and Critical Care Medicine [facility] Physicians H&P reviewed. The patient was examined [...] deficits Skin: Warm, dry, no rashes Normal [facility] NON-TELEPHONER CYTOLOGY - CELLULAR EXAMon 09-06-2022 LAB AP CASE REPORT Normal [facility] Comment on above: Result Comment: Non- gynecologic Cytology Case: [id number] Authorizing Provider: Chinyere Candelaria MD Collected: 09/06/2022 1316 Ordering Location: [facility] Main Operating Room Received: 09/06/2022 1352 Pathologist: Sari Coyne MD Specimens: A) - Lymph Node Station 2L, 2L B) - Lymph Node Station 7, station 7 Performed By: #### L AB13 #### [facility] (BEAKER) [address] [place] [address] LAB AP CLINICAL INFORMATION Order Diagnoses [facility] Comment on above: Result Comment: C34. 92 - Primary adenocarcinoma of left lung (CMS/HCC) [ICD-10-CM] Performed By: #### L AB13 #### [facility] (BEAKER) [address] [place] [address] LAB AP GROSS DESCRIPTION [facility] Comment on above: Result Comment: A) 3 air-dried slides, 3 alcohol-fixed slides, 30 mL CytoLyt with clear colorless fluid B) 2 air-dried slides, 2 alcohol-fixed slides, 30 mL CytoLyt with pink cloudy fluid Performed By: #### L AB13 #### [facility] (BEAKER) [address] [place] [address] LAB AP INTRAOPERATIVE CONSULTATION [facility] Comment on above: Result Comment: A. L [...] submitted.* Performed By: #### L AB13 #### [facility] (BEAKER) [address] [place] [address] LAB AP REPORT FINAL DIAGNOSIS NARRATIVE [facility] Comment on above: Result Comment: A. L ymph node, 2L, fine needle aspiration: - Non-diagnostic due to scant cellularity - No cellular evidence of lymph node B. Lymph node, station 7, fine needle aspiration: - Negative for malignancy - Cellular evidence of lymph node Performed By: #### L AB13 #### [facility] (BEAKER) [address] [place] [address] POCT GLUCOSE METER UNSOLICIT ED RESULTSon 09-06-2022 Glucose [Mass/Vol] 133 mg/dL High 70-105 [facility] Comment on above: Order Comment: Waive d Testing in the ED is performed under the ED CLIA certificate #[id number]. Result Comment: [email or web address] Performed By: #### L [id number] #### [facility] (BEAKER) [address] [place] [address] [id number] 08-30-2022 [id number] Nothing to Eat or Drink, including Candy, [...] THE FOLLOWING ARE NOT AVAILABLE: An adult carrier driver over the age of 18, that [...] lenses. Do not wear perfume, make-up, nail guinean, or lotions on the day of your [...] need to make any changes, please call [phone]. Notify your surgeon if you develop any illness such as a cold, cough, fever, sore throat or vomiting between now and your surgery. Thank you for entrusting us with your care. [facility] Surgical Services Team Normal [facility] Prep for Procedureon 023 Prep for Procedure [id number] Brigette Grajeda 1960 M Date Provider Department Center 08/30/2022 CHINYERE AGUIRRE [facility] Family History Family history unknown: Yes Normal [facility] Annalisa 08-26-2022 [facility] Telephone (PARAMJIT) JARET GRAJEDA ([id number]) 1960 M Date Time Provider Department 08/26/22 DELFINA BLUE During your visit today, we recorded the following information about you: Jeremiah Gibbs 09/01/2022 10:10 AM Addendum LOCAL PATIENT Received Fax from Dr. Wade Grajeda is being referred to Delfina Blue MD, PhD or Zbigniew Wilkinson M.D. by Wade Jones Sr, MD [address] [place] [address] Patient diagnosis/Reason for consult: Lung Cancer Referral triage process explained: Yes Patient will receive a call from Thoracic NPM after triage review with surgeon to discuss any additional testing and/or consults that will be scheduled. Pt will then receive a call from our scheduling office for scheduling. Please call pt at [phone]. Patient was informed consultation could be at [place] or [facility] [place]: No Patient Registration: Registration complete/updated: Yes Insurance card(s) scanned in [facility] with in the past year: Yes: Date: 08/26/22 Pt's MyChart is Pending. Ok to communicate to pt via [employer] not asked Medical Records: Records in [facility] (internal CC records): No Imaging in [facility] (internal CC records): No Care Everywhere - queried yes, downloaded Yes Linked Outside Organizations (list):[facility] Records Requested: yes Date: August 26, 2022 Outside Hospital(s) requested records from: Dr. Wade Jones, Dr. Garber Received: Yes Uploaded: Yes. Waiting on additional records: No. Missing (list): n/a OS Pathology Slides Requested: no Date: N/A Outside Hospital(s) slides requested from: n/a OS Radiology Imaging Requested: yes Date: August 26, 2022 Outside Hospital(s) requested imaging from: [facility]. Imaging will be received via Electronic Transfer Received: Yes Imaging uploaded: Yes Waiting on additional: No. Missing (list): n/a Additional providers added to Care Teams: Yes Additional Notes/Comments: n/a Enct routed to: Thoracic NPM for Triage Jeremiah Gibbs, network admin Socrates Pastor RN 09/09/2022 3:55 PM Signed Thoracic Surgery Consultation - review of records for appointment scheduling Received medical records from the office of Wade Jones Sr, MD [address] [place] [address] Patient is being referred to Unspecified/First Available [...] Cellular evidence of lymph node Procedures: 09/06 [facility] 08/13/22 ct guided bx Imaging . [...] RN Referring Provider: KAREN CHUNG, WADE WOLF [[id number]] Allergies As of Date: 08/26/2022 (Not on File) Date Reviewed: Never Reviewed Reason for Visit: External Referrals/resources [909] Consult [173] Primary Visit Diagnosis:Malignant neoplasm of left lung, unspecified part of lung (HCC) [C34.92] Order(s):SPIROMETRY BASELINE ONLY [[id number]] Order #: [id number]: 1 FUTURE LUNG DIFFUSION CAPACITY (DLCO) [[id number]] Order #: [id number]: 1 FUTURE SIX MINUTE WALK [[id number]] Order #: [id number]: 1 FUTURE Problem List As Of Date: 08/26/2022 (None) Encounter Status:Closed by SOCRATES PASTOR on 09/09/22 [facility] Annalisa 08-25-2022 CNPN Telephone (NCCAP) JARET GRAJEDA ([id number]) 1960 M Date Time Provider Department 08/25/22 DON MEJIA During your visit today, we recorded the following information about you: Purnima Hayes 08/25/2022 8:24 AM Signed Called patient X 2 to schedule appointments for here, left messages both days Allergies As of Date: 08/25/2022 (Not on File) Date Reviewed: Never Reviewed Reason for Visit: Appointment Confirmation [9214] Problem List As Of Date: 08/25/2022 (None) Encounter Status:Closed by PURNIMA HAYES on 08/25/22 [facility] HPon 08-19-2022 HP - Attestation [...] Age: 62 y.o. : 1960 Account No.: [id number] Referring physician: Chief complaint: Lung mass, newly [...] BICARB, CO2, CO2, PH, PH, PHART, PHVEN, [id number], [id number], [id number], PO2POC, PO2ART, PO2VEN, [id number], [id number] Radiology: No Chest X-ray results found for [...] was initiated by the patient and conducted [id number] with use of audio-only real time telephone communication between patient and provider for a virtual visit. Verbal consent to provide and bill for this service was obtained No signature was obtained due to the COVID-19 pandemic. 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 CT of chest done 07-27-22. Films in EPIC Normal [facility] Orders Onlyon 08-18-2022 Orders Only [id number] Brigette Grajeda 1960 M Date Provider Department Center 08/18/2022 FRANCA HOWARD [facility] DCC Family History Family history unknown: Yes Normal [facility] CARDIAC ARIANE ADMITon 022 CK [Catalytic activity/Vol] 140 U/L Normal 39-308 [facility] Comment on above: Performed By: #### E TH, CMP, CMADM ####[facility] [address] [place], [place] [address]OjKeshawn Uribe CK.MB [Mass/Vol] 2.29 ng/mL Normal <=3.60 [facility] Comment on above: Performed By: #### E TH, CMP, CMADM ####[facility] [address] [place], [place] [address]AgDr. Dalton Uribe HSTROP 9.7 pg/mL Normal 4.0-76.1 [facility] Comment on above: Result Comment: CUT- OFF POINTS HAVE BEEN ESTABLISHED BASED ON THE FOURTH UNIVERSAL DEFINITIONS OF MYOCARDIAL INFARCTION. THE UPPER REFERENCE LIMIT (URL) OF TROPONIN, DEFINED THE 99TH PERCENTILE OF cTnI DISTRIBUTION IN A REFERENCE POPULATION, HAS BEEN CONFIRMED THE DECISION THRESHOLD FOR VT DIAGNOSIS. Performed By: #### E TH, CMP, CMADM ####[facility] [address] [place], [place] [address]HkKeshawn Uribe ARASH 43 ng/mL Normal 16-96 [facility] Comment on above: Performed By: #### E TH, CMP, CMADM ####[facility] [address] [place], [place] [address]NlDr. Dalton Uribe CBC AUTO DIFFon 06-19-2021 BASO # 0.0 103/ul Normal 0.0-0.1 [facility] Comment on above: Performed By: #### C BC #### [facility] [address] [place], [place] [address] Dr. Dalton Uribe Basophils/100 WBC (Bld) 0.3 % Normal 0.2-2.0 [facility] Comment on above: Performed By: #### C BC #### [facility] [address] [place] [address] Dr. Dalton Uribe EO # 0.0 103/ul Normal 0.0-0.7 [facility] Comment on above: Performed By: #### C BC #### [facility] [address] [place] [address] Dr. Dalton Uribe Eosinophils/100 WBC (Bld) 0.1 % Critically low 0.9-7.0 [facility] Comment on above: Performed By: #### C BC #### [facility] [address] [place] [address] Dr. Dalton Uribe Erythrocyte distribution width (RBC) [Ratio] 12.5 % Normal 11.0-15.0 [facility] Comment on above: Performed By: #### C BC #### [facility] [address] [place] [address] Dr. Dalton Uribe Hematocrit (Bld) [Volume fraction] 39.5 % Critically low 42.0-54.0 [facility] Comment on above: Performed By: #### C BC #### [facility] [address] [place] [address] Dr. Dalton Uribe Hemoglobin (Bld) [Mass/Vol] 13.9 g/dL Critically low 14.0-18.0 [facility] Comment on above: Performed By: #### C BC #### [facility] [address] [place] [address] Dr. Dalton Uribe IG # 0.03 10e3/ul Normal 0.00-0.03 [facility] Comment on above: Performed By: #### C BC #### [facility] [address] [place] [address] Dr. Dalton Uribe IG % 0.3 % Normal 0.0-0.5 [facility] Comment on above: Performed By: #### C BC #### [facility] [address] [place] [address] Dr. Dalton Uribe LYMPH # 1.1 103/ul Critically low 1.2-3.8 [facility] Comment on above: Performed By: #### C BC #### [facility] [address] [place] [address] [address] Dalton Uribe Lymphocytes/100 WBC (Bld) 10.1 % Critically low 20.5-60.0 [facility] Comment on above: Performed By: #### C BC #### [facility] [address] [place] [address] [address] Dalton Uribe MANUAL DIFF REQ NO Normal [facility] Comment on above: Performed By: #### C BC #### [facility] [address] [place] [address] [address] Dalton Uribe MCH (RBC) [Entitic mass] 33.3 pg Normal 25.9-34.0 [facility] Comment on above: Performed By: #### C BC #### [facility] [address] [place] [address] Dr. Dalton Uribe MCHC (RBC) [Mass/Vol] 35.2 g/dL Normal 29.9-35.2 [facility] Comment on above: Performed By: #### C BC #### [facility] [address] [place] [address] Dr. Dalton Uribe MCV (RBC) [Entitic vol] 94.7 fL Critically high 80.0-94.0 [facility] Comment on above: Performed By: #### C BC #### [facility] [address] [place] [address] Dr. Dalton Uribe MONO # 1.0 103/ul Critically high 0.3-0.8 [facility] Comment on above: Performed By: #### C BC #### [facility] [address] [place] [address] Dr. Dalton Uribe Monocytes/100 WBC (Bld) 9.1 % Normal 1.7-12.0 [facility] Comment on above: Performed By: #### C BC #### [facility] [address] [place] [address] Dr. Dalton Uribe NEUT # 8.7 103/ul Critically high 1.4-6.5 [facility] Comment on above: Performed By: #### C BC #### [facility] [address] [place] [address] [address] Dalton Uribe Neutrophils/100 WBC (Bld) 80.1 % Critically high 43.0-75.0 [facility] Comment on above: Performed By: #### C BC #### [facility] [address] [place] [address] [address] Dalton Uribe Platelet mean volume (Bld) [Entitic vol] 10.0 fL Normal 9.5-13.5 [facility] Comment on above: Performed By: #### C BC #### [facility] [address] [place] [address] [address] Dalton Uribe PLT 133 103/ul Critically low 150-450 [facility] Comment on above: Result Comment: few giant plts and large plts seen Performed By: #### C BC #### [facility] [address] [place] [address] Dr. Dalton Uribe RBC 4.17 106/ul Critically low 4.70-6.10 [facility] Comment on above: Performed By: #### C BC #### [facility] [address] [place] [address] [address] Dalton Uribe WBC 10.9 103/ul Normal 4.0-11.0 [facility] Comment on above: Performed By: #### C BC #### [facility] [address] [place] [address] HEAD WO CONon [...] white matter disease. Electronically authenticated by: HUBER TSACY Date: 2021-06-19 12:16 Normal [facility] ETHANOL (BLD ALC)on 06-20-19 22 ALC NOTE NOTE: 80 mg/dl is th e legal limit for a blood alcohol level Normal [facility] Comment on above: Performed By: #### E TH, CMP, CMADM ####[facility] [address] [place] [address]Dr. Dalton Uribe Ethanol [Mass/Vol] mg/dL Normal [facility] Comment on above: Performed By: #### E TH, DEREK, CMADM ####[facility] [address] [place] [address]Dr. Dalton Uribe PROF 14(COMP METB)on 022 Albumin [Mass/Vol] 3.8 g/dL Normal 3.4-5.0 [facility] Comment on above: Performed By: #### E TH, DEREK, CMADM ####[facility] [address] [place] [address]Dr. Dalton Uribe Albumin/Globulin [Mass ratio] 1.0 {ratio} Normal [facility] Comment on above: Performed By: #### E TH, CMP, CMADM ####[facility] [address] [place] [address]Dr. Dalton Uribe ALP [Catalytic activity/Vol] 88 U/L Normal 46-116 [facility] Comment on above: Performed By: #### E TH, CMP, CMADM ####[facility] [address] [place] [address]Dr. Dalton Uribe ALT [Catalytic activity/Vol] 64 U/L Critically high 16-63 [facility] Comment on above: Performed By: #### E TH, CMP, CMADM ####[facility] [address] [place] [address]Dr. Dalton Uribe Anion gap [Moles/Vol] 16.0 mmol/L Normal [facility] Comment on above: Performed By: #### E , CMP, CMADM ####[facility] [address] [place] [address]Dr. Dalton Uribe AST [Catalytic activity/Vol] 65 U/L Critically high 15-37 [facility] Comment on above: Performed By: #### E TH, CMP, CMADM ####[facility] [address] [place] [address]Dr. Dalton Uribe Bilirubin [Mass/Vol] 1.3 mg/dL Critically high 0.2-1.0 [facility] Comment on above: Performed By: #### E , CMP, CMADM ####[facility] [address] [place], [place] [address]Dr. Dalton Uribe Calcium [Mass/Vol] 9.1 mg/dL Normal 8.5-10.1 [facility] Comment on above: Performed By: #### E , CMP, CMADM ####[facility] [address] [place], [place] [address]Dr. Dalton Uribe Chloride [Moles/Vol] 92 mmol/L Critically low 98-107 [facility] Comment on above: Performed By: #### E , CMP, CMADM ####[facility] [address] [place], [place] [address]Dr. Dalton Uribe CO2 [Moles/Vol] 25.4 mmol/L Normal 21.0-32.0 [facility] Comment on above: Performed By: #### E , CMP, CMADM ####[facility] [address] [place], [place] [address]Dr. Dalton Uribe Creatinine [Mass/Vol] 0.85 mg/dL Normal 0.70-1.30 [facility] Comment on above: Performed By: #### E , CMP, CMADM ####[facility] [address] [place], [place] [address]Dr. Dalton Uribe EGFR-AF IVORIAN >60 Normal >=60 [facility] Comment on above: Performed By: #### E , CMP, CMADM ####[facility] [address] [place] [address]Dr. Dalton Uribe EGFR-NON AF IVORIAN >60 Normal >=60 [facility] Comment on above: Performed By: #### E , CMP, CMADM ####[facility] [address] [place] [address]Dr. Dalton Uribe Globulin (S) [Mass/Vol] 3.7 g/dL Normal [facility] Comment on above: Performed By: #### E , CMP, CMADM ####[facility] [address] [place] [address]Dr. Dalton Uribe Glucose [Mass/Vol] 106 mg/dL Normal 74-106 [facility] Comment on above: Performed By: #### E , CMP, CMADM ####[facility] [address] [place] [address]Dr. Emmamarbella Uribe Potassium [Moles/Vol] 3.4 mmol/L Critically low 3.5-5.1 [facility] Comment on above: Performed By: #### E , CMP, CMADM ####[facility] [address] [place] [address]Dr. Dalton Uribe Protein [Mass/Vol] 7.5 g/dL Normal 6.4-8.2 [facility] Comment on above: Performed By: #### E , CMP, CMADM ####[facility] [address] [place] [address]Dr. Dalton Uribe Sodium [Moles/Vol] 130 mmol/L Critically low 136-145 [facility] Comment on above: Performed By: #### E , CMP, CMADM ####[facility] [address] [place] [address]Dr. Dalton Uribe Urea nitrogen [Mass/Vol] 10.0 mg/dL Normal 7.0-18.0 [facility] Comment on above: Performed By: #### E , CMP, CMADM ####[facility] [address] [place] [address]Dr. Dalton Uribe Urea nitrogen/Creatinine [Mass ratio] 11.8 mg/mg Normal [facility] Comment on above: Performed By: #### E TH, CMP, CMADM ####[facility] [address] [place] [address]Dr. Dalton Uribe XR CHEST 1 Von 06-19-2021 [...] ANNE GUADALUPE Date: 2021-06-19 12:27 Normal [facility] CBC AUTO DIFFon 06-18-2021 BASO # 0.0 103/ul Normal 0.0-0.1 [facility] Comment on above: Performed By: #### C BC ####[facility] [address] [place] [address]Dr. Dalton Uribe Basophils/100 WBC (Bld) 0.3 % Normal 0.2-2.0 [facility] Comment on above: Performed By: #### C BC ####[facility] [address] [place] [address]Dr. Dalton Uribe EO # 0.0 103/ul Normal 0.0-0.7 [facility] Comment on above: Performed By: #### C BC ####[facility] [address] [place] [address]Dr. Dalton Uribe Eosinophils/100 WBC (Bld) 0.1 % Critically low 0.9-7.0 [facility] Comment on above: Performed By: #### C BC ####[facility] [address] [place] [address]Dr. Dalton Uribe Erythrocyte distribution width (RBC) [Ratio] 12.7 % Normal 11.0-15.0 [facility] Comment on above: Performed By: #### C BC ####[facility] [address] [place] [address]Dr. Dalton Uribe Hematocrit (Bld) [Volume fraction] 42.5 % Normal 42.0-54.0 [facility] Comment on above: Performed By: #### C BC ####[facility] [address] [place] [address]Dr. Dalton Rony Hemoglobin (Bld) [Mass/Vol] 14.6 g/dL Normal 14.0-18.0 [facility] Comment on above: Performed By: #### C BC ####[facility] [address] [place] [address]DrKeshawn Dalton Rony IG # 0.04 10e3/ul Critically high 0.00-0.03 [facility] Comment on above: Performed By: #### C BC ####[facility] [address] [place], [place] [address]Dr. Dalton Uribe IG % 0.4 % Normal 0.0-0.5 [facility] Comment on above: Performed By: #### C BC ####[facility] [address] [place] [address]DrKeshawn Dalton Rony LYMPH # 1.1 103/ul Critically low 1.2-3.8 [facility] Comment on above: Performed By: #### C BC ####[facility] [address] [place] [address]DrKeshawn Uribe Lymphocytes/100 WBC (Bld) 10.6 % Critically low 20.5-60.0 [facility] Comment on above: Performed By: #### C BC ####[facility] [address] [place] [address]DrKeshawn Emmamarbella Uribe MANUAL DIFF REQ NO Normal [facility] Comment on above: Performed By: #### C BC ####[facility] [address] [place] [address]DrKeshawn Uribe MCH (RBC) [Entitic mass] 32.7 pg Normal 25.9-34.0 [facility] Comment on above: Performed By: #### C BC ####[facility] [address] [place] [address]Dr. Dalton Rony MCHC (RBC) [Mass/Vol] 34.4 g/dL Normal 29.9-35.2 [facility] Comment on above: Performed By: #### C BC ####[facility] [address] [place] [address]Dr. Dalton Uribe MCV (RBC) [Entitic vol] 95.3 fL Critically high 80.0-94.0 [facility] Comment on above: Performed By: #### C BC ####[facility] [address] [place] [address]Dr. Dalton Uribe MONO # 1.0 103/ul Critically high 0.3-0.8 [facility] Comment on above: Performed By: #### C BC ####[facility] [address] [place], [place] [address]Dr. Dalton Uribe Monocytes/100 WBC (Bld) 9.9 % Normal 1.7-12.0 [facility] Comment on above: Performed By: #### C BC ####[facility] [address] [place], [place] [address]Dr. Dalton Uribe NEUT # 8.1 103/ul Critically high 1.4-6.5 [facility] Comment on above: Performed By: #### C BC ####[facility] [address] [place], [place] [address]Dr. Dalton Uribe Neutrophils/100 WBC (Bld) 78.7 % Critically high 43.0-75.0 [facility] Comment on above: Performed By: #### C BC ####[facility] [address] [place] [address]DrKeshawn Uribe Platelet mean volume (Bld) [Entitic vol] 9.6 fL Normal 9.5-13.5 [facility] Comment on above: Performed By: #### C BC ####[facility] [address] [place] [address]DrKeshawn Uribe PLT 152 103/ul Normal 150-450 [facility] Comment on above: Performed By: #### C BC ####[facility] [address] [place], [place] [address]XcDr. Dlaton Uribe RBC 4.46 106/ul Critically low 4.70-6.10 [facility] Comment on above: Performed By: #### C BC ####[facility] [address] [place], [place] [address]MdDr. Dalton Uribe WBC 10.2 103/ul Normal 4.0-11.0 [facility] Comment on above: Performed By: #### C BC ####[facility] [address] [place], [place] [address]MhDr. Dalton Uribe PROF 14(COMP METB)on 022 Albumin [Mass/Vol] 4.0 g/dL Normal 3.4-5.0 [facility] Comment on above: Performed By: #### T SH, T4, CMP #### [facility] [address] [place] [address] [address] Dalton Uribe Albumin/Globulin [Mass ratio] 1.1 {ratio} Normal [facility] Comment on above: Performed By: #### T SH, T4, CMP #### [facility] [address] [place] [address] [address] Dalton Uribe ALP [Catalytic activity/Vol] 88 U/L Normal 46-116 [facility] Comment on above: Performed By: #### T SH, T4, CMP #### [facility] [address] [place] [address] [address] Dalton Uribe ALT [Catalytic activity/Vol] 74 U/L Critically high 16-63 [facility] Comment on above: Performed By: #### T SH, T4, CMP #### [facility] [address] [place] [address] [address] Dalton Uribe Anion gap [Moles/Vol] 17.1 mmol/L Normal [facility] Comment on above: Performed By: #### T SH, T4, CMP #### [facility] [address] [place] [address] [address] Dalton Uribe AST [Catalytic activity/Vol] 73 U/L Critically high 15-37 [facility] Comment on above: Performed By: #### T SH, T4, CMP #### [facility] [address] [place] [address] Dr. Dalton Uribe Bilirubin [Mass/Vol] 1.8 mg/dL Critically high 0.2-1.0 [facility] Comment on above: Performed By: #### T SH, T4, CMP #### [facility] [address] [place] [address] Dr. Dalton Uribe Calcium [Mass/Vol] 9.1 mg/dL Normal 8.5-10.1 [facility] Comment on above: Performed By: #### T SH, T4, CMP #### [facility] [address] [place] [address] Dr. Dalton Uribe Chloride [Moles/Vol] 95 mmol/L Critically low 98-107 [facility] Comment on above: Performed By: #### T SH, T4, CMP #### [facility] [address] [place] [address] Dr. Dalton Uribe CO2 [Moles/Vol] 26.5 mmol/L Normal 21.0-32.0 [facility] Comment on above: Performed By: #### T SH, T4, CMP #### [facility] [address] [place] [address] Dr. Dalton Uribe Creatinine [Mass/Vol] 0.88 mg/dL Normal 0.70-1.30 [facility] Comment on above: Performed By: #### T SH, T4, CMP #### [facility] [address] [place] [address] Dr. Dalton Uribe EGFR-AF IVORIAN >60 Normal >=60 [facility] Comment on above: Performed By: #### T SH, T4, CMP #### [facility] [address] [place] [address] Dr. Dalton Uribe EGFR-NON AF IVORIAN >60 Normal >=60 [facility] Comment on above: Performed By: #### T SH, T4, CMP #### [facility] [address] [place] [address] Dr. Dalton Uribe Globulin (S) [Mass/Vol] 3.8 g/dL Normal [facility] Comment on above: Performed By: #### T SH, T4, CMP #### [facility] [address] [place] [address] Dr. Dalton Uribe Glucose [Mass/Vol] 115 mg/dL Critically high 74-106 [facility] Comment on above: Performed By: #### T SH, T4, CMP #### [facility] [address] [place] [address] Dr. Dalton Uribe Potassium [Moles/Vol] 3.6 mmol/L Normal 3.5-5.1 [facility] Comment on above: Performed By: #### T SH, T4, CMP #### [facility] [address] [place] [address] Dr. Dalton Uribe Protein [Mass/Vol] 7.8 g/dL Normal 6.4-8.2 [facility] Comment on above: Performed By: #### T SH, T4, CMP #### [facility] [address] [place] [address] Dr. Dalton Uribe Sodium [Moles/Vol] 135 mmol/L Critically low 136-145 [facility] Comment on above: Performed By: #### T SH, T4, CMP #### [facility] [address] [place] [address] Dr. Dalton Uribe Urea nitrogen [Mass/Vol] 8.0 mg/dL Normal 7.0-18.0 [facility] Comment on above: Performed By: #### T SH, T4, CMP #### [facility] [address] [place] [address] Dr. Dalton Uribe Urea nitrogen/Creatinine [Mass ratio] 9.1 mg/mg Normal [facility] Comment on above: Performed By: #### T SH, T4, CMP #### [facility] [address] [place] [address] Dr. Dalton Uribe T4on 06-18-2021 T4 [Mass/Vol] 8.10 ug/dL Normal 4.50-12.10 [facility] Comment on above: Performed By: #### T SH, T4, CMP #### [facility] [address] [place] [address] [address] Dalton Uribe TSHon 06-18-2021 TSH 1.856 uIU/mL Normal 0.358-3.740 [facility] Comment on above: Performed By: #### T SH, T4, CMP #### [facility] [address] [place] [address] [address] Dalton Uribe TSH RANGE SEE BELOW Normal [facility] Comment on above: Result Comment: <0.3 4 UIU/ml HYPERTHYROID 0.34-5.60 UIU/ml EUTHYROID >5.60 UIU/ml HYPOTHYROID Performed By: #### T SH, T4, CMP #### [facility] [address] [place] [address] Dr. Dalton Uribe Vital Signs Date Time Vital Sign Value Performing Clinician Faci lity 04-08-2023 10:28-0500 Body temperature 97.2 [degF] Don Mejia MD Work Phone: [facility] 04-08-2023 10:28-0500 Body weight 71.8 kg Don Mejia MD Work Phone: [facility] 04-08-2023 10:28-0500 Diastolic blood pressure 93 mm[Hg] Don Mejia MD Work Phone: [facility] 04-08-2023 10:28-0500 Heart rate 69 /min Don Mejia MD Work Phone: [facility] 04-08-2023 10:28-0500 Respiratory rate 18 /min Don Mejia MD Work Phone: [facility] 04-08-2023 10:28-0500 SaO2% (BldA) [Mass fraction] 99 % Don Mejia MD Work Phone: [facility] 04-08-2023 10:28-0500 Systolic blood pressure 164 mm[Hg] Don Mejia MD Work Phone: [facility] 10-14-2022 12:00-0400 Body height 173 cm Pultremayne Scott Work Phone: [facility] 10-14-2022 12:00-0400 Body weight 73.48 kg Pultremayne Scott Work Phone: [facility] 09-27-2022 09:00-0400 Body height 175.3 cm Don Mejia MD Work Phone: [facility] 09-27-2022 09:00-0400 Body temperature 97.39 [degF] Don Mejia MD Work Phone: [facility] 09-27-2022 09:00-0400 Body weight 74.21 kg Don Mejia MD Work Phone: [facility] 09-27-2022 09:00-0400 Diastolic blood pressure 118 mm[Hg] Don Mejia MD Work Phone: [facility] 09-27-2022 09:00-0400 Heart rate 78 /min Don Mejia MD Work Phone: [facility] 09-27-2022 09:00-0400 Respiratory rate 18 /min Don Mejia MD Work Phone: [facility] 09-27-2022 09:00-0400 SaO2% (BldA) [Mass fraction] 98 % Don Mejia MD Work Phone: [facility] 09-27-2022 09:00-0400 Systolic blood pressure 194 mm[Hg] Don Mejia MD Work Phone: [facility] Encounters Encounter Date Encounter Type Care Provider Facility Start: 08-18-2023 End: 08-18-2023 ambulatory KOSTAS MORALES Not Available Start: 06-29-2023 End: 06-29-2023 ambulatory WADE OJNES SR Facility:[facility] Start: 06-16-2023 Telephone encounter Don Mejia MD Work Phone: [facility] Comment on above: Future Appointment Start: 04-08-2023 End: 04-08-2023 ambulatory DON MEJIA Facility:[facility] Start: 04-08-2023 End: 04-08-2023 Patient encounter procedure Don Mejia MD Work Phone: [facility] Comment on above: Malignant neoplasm o f upper lobe of left lung (HCC) (Primary Dx) Start: 03-31-2023 End: 03-31-2023 ambulatory WADE JONES SR Facility:[facility] Start: 03-24-2023 Telephone encounter Don Mejia MD Work Phone: [facility] Comment on above: Patient Update (Post Radiation Treatment Nurse Call ) Start: 03-11-2023 Telephone encounter Don Mejia MD Work Phone: Radiation Oncology Comment on above: Orders Start: 03-07-2023 End: 03-07-2023 ambulatory WADE JONES SR Facility:[facility] Start: 03-07-2023 Patient encounter procedure Don Mejia MD Work Phone: [facility] Start: 03-07-2023 Radiation Oncology Note Don carter MD Work Phone: Radiation Oncology Comment on above: Completion Note Start: 03-04-2023 End: 03-04-2023 ambulatory DON MEJIA Facility:[facility] Start: 03-02-2023 End: 03-02-2023 ambulatory DON MEJIA Facility:[facility] Start: 02-28-2023 End: 02-28-2023 ambulatory DON MEJIA Facility:[facility] Start: 02-11-2023 Patient encounter procedure Don Mejia MD Work Phone: [facility] Start: 02-11-2023 Radiation Oncology Note Don carter MD Work Phone: Radiation Oncology Comment on above: Treatment Planning Start: 02-11-2023 End: 02-11-2023 ambulatory DON MEJIA Facility:[facility] Start: 02-11-2023 End: 02-11-2023 Subsequent hospital visit by physician Don Mejia MD Work Phone: Radiology Pet CT Start: 01-24-2023 End: 01-24-2023 ambulatory WADE JONES SR Facility:[facility] Start: 01-24-2023 End: 01-24-2023 Subsequent hospital visit by physician Arrival Time Radiology Work Phone: Radiology Pet CT Comment on above: Malignant neoplasm o f upper lobe of left lung (HCC) [C34.12] Start: 01-13-2023 Telephone encounter Delfina koehler MD, PhD Work Phone: Thoracic Clinic Comment on above: Received Outside Med ical Records Start: 01-05-2023 Telephone encounter [facility] Comment on above: Appointment Confirma tion Start: 12-23-2022 End: 12-23-2022 ambulatory Delfina Blue MD, PhD Work Phone: Thoracic Clinic Comment on above: Personal history of malignant neoplasm of bronchus and lung (Primary Dx) Start: 12-23-2022 End: 12-23-2022 Telemedicine consultation with patient Delfina Blue MD, PhD Work Phone: [facility] Start: 12-09-2022 End: 12-09-2022 ambulatory DELFINA BLUE Facility:[facility] Start: 12-09-2022 Encounter for other preprocedural examination DELFINA BLUE [facility] Start: 10-18-2022 Telephone encounter Don Mejia MD Work Phone: Radiation Oncology Comment on above: Future Appointment Start: 10-14-2022 End: 10-14-2022 ambulatory WADE JONES Pulmonology Comment on above: Spirometry Start: 10-14-2022 End: 10-14-2022 Patient encounter procedure [facility] Work Phone: [facility] Start: 09-27-2022 End: 09-27-2022 ambulatory Lili Martinez LPN Radiation Oncology Comment on above: Patient Education Start: 09-27-2022 Telephone encounter Don Mejia MD [facility] Comment on above: FYI-No Action [...] above: Appointment Start: 09-06-2022 End: 09-07-2022 ambulatory [facility] Start: 09-03-2022 End: 09-04-2022 ambulatory [facility] Start: 08-26-2022 Telephone encounter Delfina koehler MD, PhD Work Phone: Thoracic Clinic Comment on above: External Referrals/r esources; Consult Start: 08-19-2022 ambulatory [facility] Start: 08-18-2022 End: 08-19-2022 ambulatory [facility] Start: 08-17-2022 End: 08-18-2022 ambulatory [facility] Start: 05-26-2022 End: 05-27-2022 ambulatory [...] 10-09-2023 Covid-19 Vaccine () Covid-19 Vaccine () [facility] Start: 10-09-2023 Influenza vaccination [facility] Start: 07-22-2023 Advance Directive Discussion Advance Directive Discussion [facility] Start: 07-11-2023 End: 07-11-2023 Patient encounter procedure 07/11/2023 2:00 PM EDT Office Visit Radiation Oncology [address] [place] [address] Don Mejia MD [address] [place] [address] Radiation Oncology Comment on above: Followup after ct Start: 07-05-2023 End: 07-05-2023 Patient encounter procedure 07/05/2023 9:15 AM EDT Appointment Radiology Pet [facility] [address] [place] [address] CT chest [address]iology Pet CT Comment on above: CT chest Start: 06-09-2023 End: 09-08-2023 CREATININE BLD CREATININE BLD Lab Routine Neoplasm of lung Expected: 06/09/2023, Expires: 09/08/2023 [facility] Work Phone: Comment on above: Expected: 06/09/2023 , Expires: 09/08/2023 Start: 06-09-2023 End: 04-09-2024 CT CHEST W IVCON CT CHEST W IVCON Radiology Routine Neoplasm of lung Expected: 06/09/2023, Expires: 04/09/2024 [facility] Work Phone: Comment on above: Expected: 06/09/2023 , Expires: 04/09/2024 Start: 02-07-2023 Behavioral Health Screening Behavioral Health Screening [facility] Start: 02-07-2023 [facility] Start: 10-08-2022 Covid-19 Vaccine () Covid-19 Vaccine () [facility] Start: 10-08-2022 Influenza vaccination [facility] Start: 02-07-2022 [facility] Start: 12-22-2020 COVID-19 VACCINE (3 - Pfizer series) COVID-19 VACCINE (3 - Pfizer series) [facility] Start: 2018 RSV Vaccine (1 - 1-d ose 60+ series) RSV Vaccine (1 - 1-dose 60+ series) [facility] Start: 2013 PROSTATE CANCER SCREENING DISCUSSION PROSTATE CANCER SCREENING DISCUSSION [facility] Start: 2013 Prostate specific antigen measurement Prostate Cancer Screening Discussion [facility] Start: 2008 SHINGRIX VACCINE (1 of 2) SHINGRIX VACCINE (1 of 2) [facility] Start: 07-22-2003 COLOGUARD (FIT-DNA) COLOGUARD (FIT-D NA) [facility] Start: 07-22-2003 Colonoscopy COLONOSCOPY [facility] Start: 07-22-2003 COLORECTAL CANCER SCREENING COLORECTAL CANCER SCREENING [facility] Start: 07-22-[address] COLONOGRAPHY [facility] Start: 07-22-2003 DIABETES SCREEN DIABETES SCREEN [facility] Start: 07-22-2003 Diabetes Screening Diabetes Screenin g [facility] Start: 07-22-2003 FECAL OCCULT BLOOD FECAL OCCULT BLOO D [facility] Start: 07-22-2003 Screening for malign ant neoplasm of colon [facility] Start: 07-22-2003 [facility]OSCOPY [facility] Start: 1993 Lipid 1996 panel - S carol or Plasma Lipid Screening [facility] Start: 1993 Lipid panel Lipid Screening [facility] Start: 1993 LIPID SCREEN LIPID SCREEN [facility] Start: 1977 Urine microalbumin profile [facility] Start: 1976 Anxiety Screening Anxiety Screening [facility] Start: 1976 Depression Screening Depression Scre ening [facility] Start: 1976 HEPATITIS C SCREENING HEPATITIS C [facility] Start: 1976 Hepatitis C screening Hepatitis C [facility] Start: 1976 HIV SCREENING HIV SCREENING [facility] Start: 1976 HIV screening HIV Screening [facility] Start: 1964 PNEUMOCOCCAL (1 - PCV) PNEUMOCOCCAL (1 - PCV) [facility] Start: 1964 Pneumococcal vaccination [facility] Start: 1964 Pneumococcal Vaccine : 65+ (1 of 2 - PCV) Pneumococcal Vaccine: 65+ (1 of 2 - PCV) [facility] Start: 01-20-1959 COVID-19 VACCINE (#1) COVID-19 VACCI NE (#1) [facility] Start: 1958 Abdominal aortic aneurysm screening Abdominal Aortic Aneurysm Screening [facility] End: 10-09-2023 LUNG DIFFUSION CAPACITY (DLCO) LUNG DIFFUSION CAPACITY (DLCO) PFT Routine Malignant neoplasm of left lung, unspecified part of lung (HCC) 1 Occurrences starting 09/09/2022 until 10/09/2023 [facility] Work Phone: Comment on above: 1 Occurrences starti ng 09/09/2022 until 10/09/2023 LUNG DIFFUSION CAPAC ITY (DLCO) LUNG DIFFUSION CAPACITY (DLCO) PFT Routine Malignant neoplasm of left lung, unspecified part of lung (HCC) 10/14/2022 12:37 PM EDT [facility] Work Phone: End: 10-09-2023 SIX MINUTE WALK SIX MINUTE WALK PFT Routine Malignant neoplasm of left lung, unspecified part of lung (HCC) 1 Occurrences starting 09/09/2022 until 10/09/2023 [facility] Work Phone: Comment on above: 1 Occurrences starti ng 09/09/2022 until 10/09/2023 End: 10-09-2023 SPIROMETRY BASELINE ONLY SPIROMETRY BASELINE ONLY PFT Routine Malignant neoplasm of left lung, unspecified part of lung (HCC) 1 Occurrences starting 09/09/2022 until 10/09/2023 [facility] Work Phone: Comment on above: 1 Occurrences starti ng 09/09/2022 until 10/09/2023 SPIROMETRY BASELINE ONLY SPIROME TRY BASELINE ONLY PFT Routine Malignant neoplasm of left lung, unspecified part of lung (HCC) 10/14/2022 12:37 PM EDT [facility] Work Phone: [facility] Payers Date Payer Category Payer Medicare [id number] 2023 Unknown [id number] 2022 Unknown [id number] 1959 Self-pay 1959 Unknown [id number] 1958 Unknown [id number] 2.16.84 [id number] 1958 Unknown [id number] 2.16.84 [id number] 1958 Unknown [id number] 2.16.84 [id number] 1958 Unknown [id number] 2.16.84 [id number] 1958 Unknown [id number] 2.16.84 [id number] 1958 Unknown [id number] 2.16.84 [id number] 1958 Unknown [id number] 2.16.84 [id number] 1958 Unknown [id number] 2.16.84 [id number] Social History Date Type Detail Facility Tobacco smoking stat [facility] Tobacco smoking consumption unknown [facility] Start: 1960 Sex Assigned At Not on file [facility] Start: 09-09-2022 End: 10-14-2022 Gender identity Not on file [facility] Start: 09-09-2022 End: 10-14-2022 History of Social function [facility] National Score (1-10 0), lower number is lower risk 59 [facility] Start: 09-27-2022 Tobacco smoking stat [facility] Smokes tobacco daily [facility] History of tobacco use Cigarette Smoker [facility] Start: 09-27-2022 Tobacco use and exposure Smokeless t obacco non-user [facility] Start: 09-27-2022 End: 10-14-2022 Alcohol intake Current drinker of alcohol (finding) [facility] Start: 09-27-2022 Alcohol [facility] Clinical Notes 03-23-2022 to 06-20-2023 Telephone Encounter - Purnima Hayes - 06/20/2023 8:27 AM EDTTelephone Encounter - Purnima Hayes - 06/20/2023 8:27 AM EDTTelephone Encounter - Cathy Jovel RN - 06/16/2023 11:47 AM EDT Note Date & Type Note Facility 06-20-2023 Telephone encounter Note Patient is r/s for both appts [facility] 06-20-2023 Miscellaneous Notes Patient is r/s for both appts I also called patient no answer to check on appointments. Call placed to patient due to him cancelling CT that was to be done prior to follow up for Tuesday. CAlled to check status and LM requesting pt CB to reschedule all appts. Cathy Jovel RN documented in this encounter [facility] 06-17-2023 Telephone encounter Note I also called patient no answer to check on appointments. [facility] 06-16-2023 Telephone encounter Note Call placed to patient due to him cancelling CT that was to be done prior to follow up for Tuesday. CAlled to check status and LM requesting pt CB to reschedule all appts. Cathy Jovel RN [facility] 04-09-2023 Note HNO ID: [id number] Author: DON MEJIA MD Service: ? Author Type: Physician Type: Progress Notes Filed: 04/19/2023 06:01 Note Text: Radiation Oncology - Follow Up Note PATIENT NAME: Jaret Grajeda PATIENT DIAGNOSIS/PATIENT IDENTIFICATION: Mr. Grajeda is a 62-year-old gentleman diagnosed with a Stage IB, [id number], non-small cell lung cancer (adenocarcinoma) arising from [...] result of the inadequacies/shortcomings of said technology/software. [facility] 04-08-2023 History of Present illness Narrative Radiation Oncology - Follow Up Note PATIENT NAME: Jaret Grajeda PATIENT Signed by: Don Mejia MD This document has been created with the use of voice recognition technology. It may contain inaccuracies, misspellings, inaccurate syntax or inappropriate word context that are a result of the inadequacies/shortcomings of said technology/software. documented in this encounter [facility] 03-24-2023 Miscellaneous Notes Call placed to pt to check status. He states he is doing very well. His breathing has maintained it's baseline and he denies any new issues. His energy levels are at his normal. Pt is scheduled for follow up on 04/[address]/FU in June. Cathy Jovel RN documented in this encounter [facility] 03-14-2023 Miscellaneous Notes Patient is scheduled CT chest due in 3 months is pending your approval. Lili Martinez RN documented in this encounter [facility] 03-07-2023 Note HNO ID: [id number] Author: DON MEJIA MD Service: ? Author Type: Physician Type: Progress Notes Filed: 03/17/2023 04:27 Note Text: [facility] Radiation Oncology Department RADIATION ONCOLOGY - SBRT COMPLETION NOTE PATIENT: JADA GRAJEDAOB: 1960 DATES OF TREATMENT: 02/28/23-03/07/23 DIAGNOSIS: Mr. Grajeda is a 62-year-old gentleman diagnosed with a Stage IB, [id number], non-small cell lung cancer (adenocarcinoma) arising from [...] Dr. Garber as scheduled. Staff Physician Don Mjeia M.D. / DAI 44:27 AM Electronically Signed cc: Jennifer Garber MD [address], [place] [address] [address] [facility], DO [address] [address] [address] [facility] 03-07-2023 History of Present illness Narrative [facility] Radiation Oncology Department RADIATION ONCOLOGY - SBRT COMPLETION NOTE PATIENT: JADA GRAJEDAOB: 1960 DATES OF TREATMENT: 02/28/23-03/07/23 DIAGNOSIS: Mr. Grajeda is a 62-year-old gentleman diagnosed with a Stage IB, [id number], non-small cell lung cancer (adenocarcinoma) arising from [...] Signed cc: Jennifer Garber MD [address] [facility] [address] [address] [facility], DO [address] [facility] [address] [address] documented in this encounter [facility] 02-28-2023 Note HNO ID: [id number] Author: DON MEJIA MD Service: ? Author Type: Physician Type: Progress Notes Filed: 03/03/2023 06:54 Note Text: Radiation Oncology - On Treatment Review (OTR) Note PATIENT NAME: Jaret Grajeda PATIENT DIAGNOSIS: Mr. Grajeda is a 62-year-old gentleman diagnosed with a Stage IB, [id number], non-small cell lung cancer (adenocarcinoma) arising from [...] the course of treatment. Don Mejia MD [facility] 02-12-2023 Note HNO ID: [id number] Author: DON MEJIA MD Service: ? Author Type: Physician Type: Progress Notes Filed: 02/22/2023 04:26 Note Text: Radiation Oncology - Follow Up Note PATIENT NAME: Jaret Grajeda PATIENT DIAGNOSIS/PATIENT IDENTIFICATION: Mr. Grajeda is a 62-year-old gentleman diagnosed with Stage IB, dH3V7V2, non-small cell lung cancer (adenocarcinoma) arising from [...] cancer. [facility] and was recommended a cardiac workup which [...] 62-year-old gentleman diagnosed with a Stage IB, qS0C0A1, non-small cell lung cancer (adenocarcinoma) arising from [...] a course of (more content not included)... [facility] 02-11-2023 Note HNO ID: [id number] Author: DON MEJIA MD Service: ? Author Type: Physician Type: Progress Notes Filed: 02/27/2023 15:22 Note Text: JARET GRAJEDA [id number] 02/11/2023 [facility] Department of Radiation Oncology Treatment Planning [...] Electronically Signed Don Mejia M.D. 43:22 PM [facility] 02-11-2023 Note HNO ID: [id number] Author: DON MEJIA MD Service: ? Author Type: Physician Type: Progress Notes Filed: 02/14/2023 22:39 Note Text: JARET GRAJEDA [id number] 02/11/2023 [facility] Department of Radiation Oncology SBRT CT Simulation Diagnosis/Disease:Malignant neoplasm of upper lobe, left bronchus or lungC34.12 Therapist: Mouna Yeboah Consent: Yes Area: LUNG Procedure: A time-out was conducted and recorded by the therapist. Patient simulated at [facility] for SBRT. Compression device in place, and a 4D CT was conducted. Position: SUPINE Thigh Positioner: 0 With Riser 1 Without Riser 1 Abdominal Cuff: SecureVac Cushion Index to Base @ 58 0 T-Vac Cushion Rt. Side Adjust 221 Tri-Vac Cushion Lt. side Adjust 160 [id number] Pump 160 [id number] Wingboard: Head Pad (B or F) :F [...] Electronically Signed DON MEJIA M.D. 410:39 PM [facility] 02-11-2023 History of Present illness Narrative JARET GRAJEDA [id number] 02/11/2023 [facility] Department of Radiation Oncology Treatment Planning [...] M.D. 43:22 PM documented in this encounter [facility] 01-24-2023 Note HNO ID: [id number] Author: Socrates Mills RT(R) Service: ? Author [...] RT Sharita(R) January 24, 2023 2:35 PM [facility] 01-24-2023 Note HNO ID: [id number] Author: Socrates Mills RT(R) Service: ? Author [...] safety can be found using this link: [email or web address] rotection [email or web address]%20Nuclear%20Med icine%[email or web address] SIGNATURE: RT Sharita(R) PATIENT NAME: Jaret Grajeda DATE: January 24, 2023 TIME: 2:34 PM PAGER/CONTACT #: [facility] 01-24-2023 Note HNO ID: [id number] Author: Aide Levy RN Service: ? Author [...] DATE: January 24, 2023 TIME: 10:38 AM [facility] 01-24-2023 History of Present illness Narrative Radiology [...] 2023 2:35 PM documented in this encounter [facility] 01-24-2023 History of Present illness Narrative [...] safety can be found using this link: [email or web address] [email or web address] ear%[email or web address].[email or web address] SIGNATURE: RT hSarita(R) PATIENT NAME: Jaret Grajeda DATE: January 24, 2023 TIME: 2:34 PM PAGER/CONTACT #: documented in this encounter [facility] 01-13-2023 Miscellaneous Notes Received [facility] Hem/Onc office notes 01/04/23 fron [facility] Record scanned in Epic alycia Byrd asst documented in this encounter [facility] 01-06-2023 Miscellaneous Notes Patient called back is aware of appt date and times Called patient again left message to call me back with appt dates and times Called patient to let him know about PET and CT and he also needs a followup with Dr Mejia, no answer left message for him to call me back documented in this encounter [facility] 12-23-2022 Note HNO ID: [id number] Author: Delfina Blue MD, PhD Service: Thoracic Surgery Author Type: Physician Type: Progress Notes Filed: 12/29/2022 12:03 PM Note Text: [place] [id number] [place] CLINIC NOTE NAME: JARET GRAJEDA [facility] #: [id number] DATE: 12/23/2022 AGE: 62 PHYSICIAN: Delfina Blue [...] He was scheduled for potential simulation in [place] with Dr. Mejia, but somehow has not kept those appointments in check. He did not answer my direct phone call today. It is possible he is being treated out of system for what I suspect it was a stage IB non-small cell lung cancer, but I find no record of that in our system. He does have a progress note from [facility], where he was seen after his recovery from his hospitalization and I think that given that he was compromised recently, radiotherapy should be his treatment. I will attempt to call Dr. Garber and let him know of my thoughts. Delfina Blue M.D., Ph.D. SM:[id number] / [facility] 12-23-2022 Note HNO ID: [id number] Author: Delfina Blue MD, PhD Service: ? Author Type: Physician Type: Progress Notes Filed: 12/23/2022 10:56 AM Note Text: I have read and reviewed the documentation and agree. I wish to add the following findings which have been dictated and will be communicated back to the requesting physician. Delfina Blue MD, PhD [facility] 12-23-2022 Note HNO ID: [id number] Author: Delfina Blue MD, PhD Service: ? Author Type: Physician Type: Progress Notes Filed: 12/23/2022 10:56 AM Note Text: Heart, Vascular AND Thoracic [place] Department of Thoracic Surgery TELEPHONE VISIT (audio [...] visit. Either the patient or their legal community representative has been informed of the risks [...] manage going forward Delfina Blue MD, PhD [facility] 12-23-2022 History of Present illness Narrative I have read and reviewed the documentation and agree. I wish to add the following findings which have been dictated and will be communicated back to the requesting physician. Delfina Blue MD, PhD Heart, Vascular & Thoracic [place] Department of Thoracic Surgery TELEPHONE VISIT (audio [...] visit. Either the patient or their legal community representative has been informed of the risks [...] Blue MD, PhD documented in this encounter [facility] 12-09-2022 Note HNO ID: [id number] Author: Britany Lynch RN Service: Radiology Author [...] ALLERGIES: Reviewed and unchanged MEDICATIONS REVIEWED BY: Optician and Britany Lynch RN PROCEDURE TYPE: NM STRESS: 0.4 mg of Lexiscan was administered IV at 1106 by Britany Lynch RN. Reversal agent used: None. Expiration date: 06/2024 Lot#: [id number] IV SITE: Ambulatory: A Saline lock was [...] 09, 2022 TIME: 10:51 AM PAGER/CONTACT #: [facility] 12-09-2022 Note HNO ID: [id number] Author: Demetrice Sumner RT(Stephen) Service: Nuclear Medicine [...] STATUS: Discontinued PROCEDURE TYPE: NM Stress: 13.0mCi [id number] was administered IV for Rest Imaging at 0955 by RULA [place]). 31.8 mCi [id number] was administered IV for Stress Imaging at 1106 by demetrice sumner [place]. ADMINISTRATION TIME: PATIENT DISCHARGED TO: Ambulatory patient, left NM department area. A Diagnostic radioactive procedure has taken place, with no further precautions necessary other than routine body substance precautions. More information regarding radiation safety can be found using this link: [email or web address] [email or web address] [email or web address]%20Nuclear%20Med icine%[email or web address] SIGNATURE: RT Stanislav(R) PATIENT NAME: Jaret Grajeda DATE: December 09, 2022 TIME: 9:57 AM PAGER/CONTACT #: [facility] 11-24-2022 Miscellaneous Notes Thanks for the update [...] Cathy Jovel, RN documented in this encounter [facility] 10-15-2022 Note HNO ID: [id number] Author: Delfina Blue MD, PhD Service: ? Author Type: Physician Type: Progress Notes Filed: 10/15/2022 4:54 PM Note Text: [facility] STAFF PHYSICIAN NOTE OF PERSONAL INVOLVEMENT IN [...] PhD DATE OF SERVICE: October 14, 2022 [facility] 10-14-2022 Note HNO ID: [id number] Author: Fernando Noel MD Service: ? Author Type: Fellow Type: Progress Notes Filed: 10/15/2022 4:54 PM Note Text: [facility] THORACIC SURGERY OUTPATIENT CONSULT NOTE Jaret Grajeda [id number] Requesting Provider: Wade Jones Thoracic Physician: Delfina Blue MD Chief Complaint: lung cancer Impression: Jaret Grajeda is a 62 yoM current heavy 45PYS with newly diagnosed [id number] TRISTEN adenoCA. EBUS with negative level 7 [...] SERVICE: 10/14/2022 TIME of SERVICE: 3:57 PM [facility] 10-14-2022 Note HNO ID: [id number] Author: Ana Steward RRT Service: ? Author [...] PM _ Comments: B/P 5min post 185/98 [facility] 10-14-2022 Note HNO ID: [id number] Author: Delfina Blue MD, PhD Service: Thoracic Surgery Author Type: Physician Type: Progress Notes Filed: 10/18/2022 7:56 PM Note Text: [place] [id number] [place] DEPARTMENT OF THORACIC AND CARDIOVASCULAR SURGERY NAME: JARET GRAJEDA [facility] #: [id number] DATE: 10/14/2022 AGE: 62 PHYSICIAN: Delfina Blue [...] very near future. Delfina Blue M.D., Ph.D. :[id number] [facility] 10-14-2022 Procedure note Associated Ord er(s): SIX [...] TIME: 9:29 PM documented in this encounter [facility] 09-28-2022 Note HNO ID: [id number] Author: Don Mejia MD Service: ? Author Type: Physician Type: Progress Notes Filed: 10/06/2022 6:08 AM Note Text: Radiation Oncology - New Patient/Consult Note PATIENT NAME: Jaret Grajeda PATIENT REQUESTING PHYSICIAN: Jennifer Garber MD DIAGNOSIS: Stage IB, [id number], non-small cell lung cancer (adenocarcinoma) arising from the left upper lobe of the lung. PATIENT IDENTIFICATION: This patient was seen in the Department of Radiation Oncology at the [facility] with Don Mejia MD. He was accompanied today by his family. Final recommendations will be communicated back to the requesting physician by way of the shared medical record, or letter to requesting physician via US mail. HISTORY OF PRESENT ILLNESS: Mr. Grajeda is a 62-year-old gentleman from [place], [place] and heavy tobacco user who was [...] has 1 child, and lives in the [place], [place] area. 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 He reports an approximate 33-tykw-jhoi history of smoking and currently smokes a [...] 62-year-old gentleman recently diagnosed with Stage IB, [id number], non-small cell lung cancer (adenocarcinoma) arising from the left upper lobe of the jelena (more content not included)... [facility] 09-27-2022 History of Present illness Narrative Images from the original note were not included. Radiation Oncology - New Patient/Consult Note PATIENT NAME: Jaret Grajeda PATIENT Signed: Don Mejia MD I spent a total of 60 minutes on the date of the service which included preparing to see the patient, yanb-tk-jggd patient care, and counseling and educating the patient/family/caregiver. This document has been created with the use of voice recognition technology. It may contain inaccuracies, misspellings, inaccurate syntax or inappropriate word context that are a result of the inadequacies/shortcomings of said technology/software. documented in this encounter [facility] 09-27-2022 Note Education (RODDYA) JARET GRAJEDA ([id number]) 1960 M Date Time Provider Department 09/27/22 LILI MARTINEZ Reason for Visit: Patient Education [91] Visit Notes: >> Lili Martinez LPN Mon Sep 27, 2022 12:26 PM Status: Signed Radiation Therapy - Patient Education Note PATIENT NAME: Jaret Grajeda PATIENT September 27, 2022 [facility]/LOCATION: [facility] READINESS TO LEARN Cognitive Ability: Alert [...] need for social work, van service, and media strategist. Was approved? No Signed by: Lili Martinez [...] Encounter Status:Closed by LILI MARTINEZ on 09/27/22 [facility] 09-27-2022 Miscellaneous Notes Thanks for tristen Ochoa Offered Bakari an appointment with Dr Blue on 10/05 he will not take appointment he stated that he has someone taking him on the and discussed with him daughter they would like to keep appt as scheduled. documented in this encounter [facility] 09-27-2022 Nurse Note Radiation Therapy - Patient Education Note PATIENT NAME: Jaret Grajeda PATIENT September 27, 2022 [facility]/LOCATION: [facility] READINESS TO LEARN Cognitive Ability: Alert [...] need for social work, van service, and media strategist. Was approved? No Signed by: Lili Martinez LPN documented in this encounter [facility] 09-21-2022 Miscellaneous Notes Patient called back he is scheduled for Tuesday per his request. Called patient again to schedule tiffany no answer 09/06/22 EBUS results are available in Care Everywhere. Thanks Lili Martinez LPN Referral was made by Dr. Garber and is important to keep. According to the chart he was also supposed to follow-up with Dr. Candelaria in [place] for bronchoscopy/EBUS for pathologic staging of his [...] Lili Martinez LPN documented in this encounter [facility] 09-16-2022 Miscellaneous Notes Left date and time of apt for patient. Sent via [employer] - [id number]. Th, 10/14/2022 at [facility] at 12:30pm/1pm/1:15pm , 10/14/2022 at [facility] Consult w/ Dr. Blue at 3:40pm documented in this encounter [facility] 09-09-2022 Miscellaneous Notes Images from the original note were not included. Thoracic Surgery Consultation - review of records for appointment scheduling Received medical records from the office of Wade Jones Sr, MD [address] [address] Patient is being referred to Unspecified/First Available [...] Cellular evidence of lymph node Procedures: 09/06 [facility] 08/13/22 ct guided bx Imaging . [...] by Wade Jones Sr, MD [address] [facility] [address] Patient diagnosis/Reason for consult: Lung Cancer Referral triage process explained: Yes Patient will receive a call from Thoracic NPM after triage review with surgeon to discuss any additional testing and/or consults that will be scheduled. Pt will then receive a call from our scheduling office for scheduling. Please call pt at [phone]. Patient was informed consultation could be at [place] or [facility]: No Patient Registration: Registration complete/updated: Yes Insurance card(s) scanned in [facility] with in the past year: Yes: Date: 08/26/22 Pt's [employer] is Pending. Ok to communicate to pt via [employer] not asked Medical Records: Records in [facility] (internal CC records): No Imaging in [facility] (internal [facility] records): No Care Everywhere - queried yes, downloaded Yes Linked Outside Organizations (list):[facility] Records Requested: yes Date: August 26, 2022 Outside Hospital(s) requested records from: Dr. Wade Jones, Dr. Garber Received: Yes Uploaded: Yes. Waiting on additional records: No. Missing (list): n/a OSH Pathology Slides Requested: no Date: N/A Outside Hospital(s) slides requested from: n/a OSH Radiology Imaging Requested: yes Date: August 26, 2022 Outside Hospital(s) requested imaging from: [facility]. Imaging will be received via Electronic Transfer Received: Yes Imaging uploaded: Yes Waiting on additional: No. Missing (list): n/a Additional providers added to Care Teams: Yes Additional Notes/Comments: n/a Enct routed to: Thoracic NPM for Triage Jeremiah Gibbs, network admin documented in this encounter [facility] 09-09-2022 Miscellaneous Notes I left a message for Jaret to call the office conner regarding his missed appointment for consult with Dr. Mejia today. This is twice that he's no showed to the scheduled consult. I notified Shilpa with Dr. Garber's office of the above as well. Lili Martinez LPN documented in this encounter [facility] 09-06-2022 Note Patient: Jaret Grajeda Procedure Summary Date: 09/06/22 Room / Location: [facility] Main Operating Room Anesthesia Start: [...] no known notable events for this encounter. [facility] 09-06-2022 Note Airway Date/Time: 09/06/2022 12:57 [...] 1 Number of other approaches attempted: 0 [facility] 09-06-2022 Note Patient: Jaret Grajeda Procedure Summary Date: 09/06/22 Room / Location: [facility] Main Operating Room Anesthesia Start: [...] observation Transport: uneventful Patient condition is: stable [facility] 09-06-2022 Note Patient: Jaret Grajeda Procedure Information Date/Time: 09/06/22 1200 Scheduled providers: Chinyere Candelaria MD; James Johnson MD; ARETHA Yang Procedure: BRONCHOSCOPY Location: [facility] Main Operating Room Relevant Problems [...] 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 Additional Equipment Requests [facility] 08-19-2022 Note Attestation signed by Chinyere [...] Age: 62 y.o. : 1960 Account No.: [id number] Referring physician: Chief complaint: Lung mass, newly [...] BICARB, CO2, CO2, PH, PH, PHART, PHVEN, [id number], [id number], [id number], PO2POC, PO2ART, PO2VEN, QPY2DEL, [id number] Radiology: No Chest X-ray results found for [...] was initiated by the patient and conducted oum-hfdk-ia-face with use of audio-only real time telephone communication between patient and provider for a virtual visit. Verbal consent to provide and bill for this service was obtained No signature was obtained due to the COVID-19 pandemic. Micheal Feliz MD PCCM Fellow [facility] 08-18-2022 Note . [facility] 05-26-2022 Note PROCEDURE: XR FOOT R [...] authenticated by: ANNE GUADALUPE Date: 2022-05-26 19:40 [facility] 04-14-2022 Note PROCEDURE: XR FOOT [...] authenticated by: LEIGH PUCKETT Date: 2022-04-14 09:05 [facility] 03-31-2022 Note PROCEDURE: XR FOOT [...] authenticated by: LEIGH PUCKETT Date: 2022-03-31 08:08 [facility] 03-23-2022 Note PROCEDURE: XR FOOT [...] by: ANNE GUADALUPE Date: 2022-03-23 12:49 [facility] Evaluation note Diagnosis Malignant neoplasm of left lung, unspecified part of lung (HCC)- Primary documented in this encounter [facility] Diagnosis 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)- Primary documented in this encounter [facility]* Diagnosis Malignant neoplasm of left lung, unspecified part of lung (HCC) [facility] Malignant neoplasm of left [...] left lung (HCC) [facility] Outpatient Procedure (Routine) - Pending Review Specialty Diagnoses / Procedures Referred By Javy singer Referred To [facility] Diagnoses Malignant neoplasm of left lung, unspecified part of lung (HCC) Procedures SIX MINUTE WALK CARDIOPULMONARY EXERCISE STRESS Delfina Blue MD, PhD [address] [facility] [address] [place] [address] [facility] [address] [place] [address] Referral ID Status Reason Start Date Expiration Date Visits Requested Visits Authorized [id number] Pending Review Auto-Generat ed Referral 09/09/2022 10/09/2023 1 1 * Outpatient Procedure (Routine) - Pending Review Specialty Diagnoses / Procedures Referred By Contac t Referred To [facility] [place] Diagnoses Malignant neoplasm of left lung, unspecified part of lung (HCC) Procedures LUNG DIFFUSION CAPACITY (DLCO) DIFFUSING CAPACITY Delfina Blue MD, PhD [address] [facility] [place] [address] [address] Referral ID Status Reason Start Date Expiration Date Visits Requested Visits Authorized [id number] Pending Review Auto-Generat ed Referral 09/09/2022 10/09/2023 1 1 * Outpatient Procedure (Routine) - Pending Review Specialty Diagnoses / Procedures Referred By Contac t Referred To [facility] [place] Diagnoses Malignant neoplasm of left lung, unspecified part of lung (HCC) Procedures SPIROMETRY BASELINE ONLY SPMTRY W/VC EXPIRATORY RU W/WO MXML VOL VNTJ Delfina Blue MD, PhD [address] [facility] [address] [place] [address] [facility] [address] [place] [address] Referral ID Status Reason Start Date Expiration Date Visits Requested Visits Authorized [id number] Pending Review Auto-Generat ed Referral 09/09/2022 10/09/2023 1 1 Post ClinicReason for referral (narrative)* Diagnostic Procedure Only (Routine) - Closed Specialty Diagnoses / Procedures Referred By [facility] Referred To Contact MOLECULAR & FUNCTIONAL IMAGING Diagnoses 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) Procedures NM PET/CT SKULL-THIGH SUBSEQUENT PET IMAGING CT ATTENUATION SKULL BASE MID-THIGH Don Mejia MD [address] [place] [address] [place] [address] Molecular & Functional Imaging [address] [place] [address] Referral ID Status Reason Start Date Expiration Date V isits Requested Visits Authorized [id number] Closed Auto-Generate d Referral 01/10/2023 02/08/2023 [address] [facility] Summary Purpose Family History No Family History Records FoundNo Family History Records FoundNo Family History Records FoundNo Family History Records FoundNo Family History Records Found Advance Directives No Advanced Directives Records FoundNo Advanced Directives Records FoundNo Advanced Directives Records FoundNo Advanced Directives Records FoundNo Advanced Directives Records Found Reason for Referral Specialty Diagnoses / Procedures Referred By [facility] Referred To Contact CT IMAGING Diagnoses Neoplasm of lung Procedures CT CHEST W IVCON DIAGNOSTIC COMPUTED TOMOGRAPHY THORAX W/CONTRAST Don Mejia MD [address] [place] [address] [place] [address] Ct Imaging [facility] Referral ID Status Reason Start Date Expiration Date Visits Requested Visits Authorized [id number] Authorized Auto-Generat ed Referral 06/09/2023 04/09/2024 1 1 Specialty Diagnoses / Procedures Referred By [facility] Referred To Contact CT IMAGING Diagnoses 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) Procedures CT CHEST W IVCON DIAGNOSTIC COMPUTED TOMOGRAPHY THORAX W/CONTRAST Don Mejia MD [address] [place] [address] [place] [address] [place] [id number] Referral ID Status Reason Start Date Expiration Date V isits Requested Visits Authorized [id number] Closed Auto-Generate d Referral 01/05/2023 02/04/2024 1 1 Additional Source Comments (unrecognized sect ion and content) No Status Records FoundNo Status Records FoundNo Status Records FoundNo Status Records FoundNo Status Records Found INFORMATION SOURCE (unrecogn ized section and content) DATE CREATED AUTHOR 05/30/2022 [facility] DATE CREATED AUTHOR AUTHOR'S ORGANIZ ATION 09/09/2022 [facility] DATE CREATED AUTHOR AUTHOR'S ORGANIZ ATION 10/15/2022 [facility] DATE CREATED AUTHOR AUTHOR'S ORGANIZ ATION 07/01/2023 [facility] DATE CREATED AUTHOR AUTHOR'S ORGANIZ ATION 08/24/2023 [facility] EPIC Source Comments (unrecognize d section and content) In the event this informatio n is protected by the Federal Confidentiality of Alcohol and Drug Abuse Patient Records regulations: The Federal rules restrict any use of the information to criminally investigate or prosecute any alcohol or drug abuse patient.[facility] the event this information is protected by the Federal Confidentiality of Alcohol and Drug Abuse Patient Records regulations: The Federal rules restrict any use of the information to criminally investigate or prosecute any alcohol or drug abuse patient.[facility] Hospital[facility] the event this information is protected by the Federal Confidentiality of Alcohol and Drug Abuse Patient Records regulations: The Federal rules restrict any use of the information to criminally investigate or prosecute any alcohol or drug abuse patient.[facility] the event this information is protected by the Federal Confidentiality of Alcohol and Drug Abuse Patient Records regulations: The Federal rules restrict any use of the information to criminally investigate or prosecute any alcohol or drug abuse patient.[facility] the event this information is protected by the Federal Confidentiality of Alcohol and Drug Abuse Patient Records regulations: The Federal rules restrict any use of the information to criminally investigate or prosecute any alcohol or drug abuse patient.[facility] Hospital[facility] the event this information is protected by the Federal Confidentiality of Alcohol and Drug Abuse Patient Records regulations: The Federal rules restrict any use of the information to criminally investigate or prosecute any alcohol or drug abuse patient.[facility] Hospital[facility] the event this information is protected by the Federal Confidentiality of Alcohol and Drug Abuse Patient Records regulations: The Federal rules restrict any use of the information to criminally investigate or prosecute any alcohol or drug abuse patient.[facility] Hospital[facility] the event this information is protected by the Federal Confidentiality of Alcohol and Drug Abuse Patient Records regulations: The Federal rules restrict any use of the information to criminally investigate or prosecute any alcohol or drug abuse patient.[facility] Hospital[facility] the event this information is protected by the Federal Confidentiality of Alcohol and Drug Abuse Patient Records regulations: The Federal rules restrict any use of the information to criminally investigate or prosecute any alcohol or drug abuse patient.[facility] Hospital[facility] the event this information is protected by the Federal Confidentiality of Alcohol and Drug Abuse Patient Records regulations: The Federal rules restrict any use of the information to criminally investigate or prosecute any alcohol or drug abuse patient.[facility] Hospital[facility] the event this information is protected by the Federal Confidentiality of Alcohol and Drug Abuse Patient Records regulations: The Federal rules restrict any use of the information to criminally investigate or prosecute any alcohol or drug abuse patient.[facility] Hospital[facility] the event this information is protected by the Federal Confidentiality of Alcohol and Drug Abuse Patient Records regulations: The Federal rules restrict any use of the information to criminally investigate or prosecute any alcohol or drug abuse patient.[facility] HospitalIn the event this information is protected by the Federal Confidentiality of Alcohol and Drug Abuse Patient Records regulations: The Federal rules restrict any use of the information to criminally investigate or prosecute any alcohol or drug abuse patient.[facility] HospitalIn the event this information is protected by the Federal Confidentiality of Alcohol and Drug Abuse Patient Records regulations: The Federal rules restrict any use of the information to criminally investigate or prosecute any alcohol or drug abuse patient.[facility] HospitalIn the event this information is protected by the Federal Confidentiality of Alcohol and Drug Abuse Patient Records regulations: The Federal rules restrict any use of the information to criminally investigate or prosecute any alcohol or drug abuse patient.[facility] HospitalIn the event this information is protected by the Federal Confidentiality of Alcohol and Drug Abuse Patient Records regulations: The Federal rules restrict any use of the information to criminally investigate or prosecute any alcohol or drug abuse patient.[facility] HospitalIn the event this information is protected by the Federal Confidentiality of Alcohol and Drug Abuse Patient Records regulations: The Federal rules restrict any use of the information to criminally investigate or prosecute any alcohol or drug abuse patient.[facility] HospitalIn the event this information is protected by the Federal Confidentiality of Alcohol and Drug Abuse Patient Records regulations: The Federal rules restrict any use of the information to criminally investigate or prosecute any alcohol or drug abuse patient.[facility] HospitalIn the event this information is protected by the Federal Confidentiality of Alcohol and Drug Abuse Patient Records regulations: The Federal rules restrict any use of the information to criminally investigate or prosecute any alcohol or drug abuse patient.[facility] HospitalIn the event this information is protected by the Federal Confidentiality of Alcohol and Drug Abuse Patient Records regulations: The Federal rules restrict any use of the information to criminally investigate or prosecute any alcohol or drug abuse patient.[facility] HospitalIn the event this information is protected by the Federal Confidentiality of Alcohol and Drug Abuse Patient Records regulations: The Federal rules restrict any use of the information to criminally investigate or prosecute any alcohol or drug abuse patient.[facility] HospitalIn the event this information is protected by the Federal Confidentiality of Alcohol and Drug Abuse Patient Records regulations: The Federal rules restrict any use of the information to criminally investigate or prosecute any alcohol or drug abuse patient.[facility] HospitalIn the event this information is protected by the Federal Confidentiality of Alcohol and Drug Abuse Patient Records regulations: The Federal rules restrict any use of the information to criminally investigate or prosecute any alcohol or drug abuse patient.[facility] Reason for Visit (unrecogniz ed section and content) Reason Comments External Referrals/resources Consult Reason Comments Appointment Reason Comments Appointment Confirmation Reason Comments Patient Education Reason Comments FYI-No Action Needed Reason Comments Consult Reason Comments Spirometry Specialty Diagnoses / Procedures Referred By Contac t Referred To [facility] [place] Diagnoses Malignant neoplasm of left lung, unspecified part of lung (HCC) Procedures LUNG DIFFUSION CAPACITY (DLCO) DIFFUSING CAPACITY Delfina Blue MD, PhD [id number] [address] [place] [address] Referral ID Status Reason Start Date Expiration Date V isits Requested Visits Authorized [id number] Closed Auto-Generate d Referral 09/09/2022 10/09/2023 1 1 Specialty Diagnoses / Procedures Referred By Contac t Referred To [facility] Diagnoses Malignant neoplasm of left lung, unspecified part of lung (HCC) Procedures SPIROMETRY BASELINE ONLY SPMTRY W/VC EXPIRATORY RU W/WO MXML VOL VNTJ Delfina Blue MD, PhD [address] [place] [address] [address] [address] [place] [address] Referral ID Status Reason Start Date Expiration Date V isits Requested Visits Authorized [id number] Closed Auto-Generate d Referral 09/09/2022 10/09/2023 1 1 Specialty Diagnoses / Procedures Referred By Contac t Referred To [facility] [place] Diagnoses Malignant neoplasm of left lung, unspecified part of lung (HCC) Procedures SIX MINUTE WALK CARDIOPULMONARY EXERCISE STRESS PULMONARY STRESS TESTING Delfina Blue MD, PhD [address] [place] [address] [facility] [address] [place] [address] Referral ID Status Reason Start Date Expiration Date V isits Requested Visits Authorized [id number] Closed Auto-Generate d Referral 10/01/2022 02/06/2023 1 1 Reason Comments Mass Reason Comments Future Appointment Reason Comments Received Outside Medical Records Reason Comments Orders Reason Comments Patient Update Post Radiation Treat ment Nurse Call Reason Comments Lung Cancer Specialty Diagnoses / Procedures Referred By Contac t Referred To Contact [facility] DEPARTMENT Diagnoses . Procedures [place] [facility] [address] Referral ID Status Reason Start Date Expiration Date Visits Requested Visits Authorized [id number] Authorized Financial Clearance Required - Self Pay Patient Cleared - Qualified [id number] 03/31/2023 06/29/2023 99 99 Specialty Diagnoses / Procedures Referred By Contac t Referred To Contact Radiation Oncology / RADIATION ONCOLOGY Diagnoses Malignant neoplasm of upper lobe, left bronchus or lung Followup and SIM treating lung? SBRT 4FX PLUS SIM Procedures SIMULATION MARBLE SBRT 4FX PLUS SIM Don Mejia MD [address] [place] [address] Don Mejia MD [address] [place] [address] [place] [address] Referral ID Status Reason Start Date Expiration Date Visits Re quested Visits Authorized [id number] Closed 02/04/2023 05/04/2023 5 5 Reason Comments Radiology NM Specialty Diagnoses / Procedures Referred By Contac t Referred To Contact MOLECULAR & FUNCTIONAL IMAGING Diagnoses 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) Procedures NM PET/CT SKULL-THIGH SUBSEQUENT PET IMAGING CT ATTENUATION SKULL BASE MID-THIGH Don Mejia MD [address] [facility] [place] [address] Molecular & Functional Imaging [id number] Referral ID Status Reason Start Date Expiration Date V isits Requested Visits Authorized [id number] Closed Auto-Generate d Referral 01/10/2023 02/08/2023 [address] Specialty Diagnoses / Procedures Referred By Contac t Referred To Contact CT IMAGING Diagnoses 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) Procedures CT CHEST W IVCON DIAGNOSTIC COMPUTED TOMOGRAPHY THORAX W/CONTRAST Don Mejia MD [address] [place] [address] [place] [address] [place] [address] Referral ID Status Reason Start Date Expiration Date V isits Requested Visits Authorized [id number] Closed Auto-Generate d Referral 01/05/2023 02/04/2024 1 1 Care Teams (unrecognized sec tion and content) Accounting Machine Operator Relationship Specialty Start Date End Date Wade Jones Sr. [address] [place] [address] PCP - General Family Medicine 08/26/22 Chinyere Candelaria [address] [place] [phone] Critical Care 08/26/22 Jennifer Garber MD [address] [place] [address] Hematology/Oncology 08/26/22 Accounting Machine Operator Relationship Specialty Start Date End Date Wade Jones Sr. [address] [place] [address] PCP - General Family Medicine 08/26/22 Chinyere Candelaria [address] [place] [phone] Critical Care 08/26/22 Jennifer Garber MD [address] [place] [address] Hematology/Oncology 08/26/22 Accounting Machine Operator Relationship Specialty Start Date End Date Wade Jones Sr. 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 [address] [place] [address] PCP - General Family Medicine 08/26/22 Chinyere Candelaria [address] [place] [phone] Critical Care 08/26/22 Jennifer Garber MD [address] [place] [address] Hematology/Oncology 08/26/22 Accounting Machine Operator Relationship Specialty Start Date End Date Wade Jones Sr. 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 [address] [facility] [place] [address] PCP - General Family Medicine 08/26/22 Chinyere Candelaria MD [address] [place] [address] Critical Care 08/26/22 Jennifer Garber MD [address] [place] [address] Hematology/Oncology 08/26/22 Accounting Machine Operator Relationship Specialty Start Date End Date Wade Jones Sr. 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 Machine Operator Relationship Specialty Start Date End Date Wade Jones Sr., DO [address] [place] [address] PCP - General Family Medicine 08/26/22 Chinyere Candelaria MD [address] [place] [address] Critical Care 08/26/22 Jennifer Garber MD [address] [place] [address] Hematology/Oncology 08/26/22 Accounting Machine Operator Relationship Specialty Start Date End Date Wade Jones Sr., DO [address] [place] [address] PCP - General Family Medicine 08/26/22 Chinyere Candelaria MD [address] [place] [address] Critical Care 08/26/22 Jennifer Garber MD [address] [place] [address] Hematology/Oncology 08/26/22 Accounting Machine Operator Relationship Specialty Start Date End Date Wade Jones Sr., DO [address] [place] [address] PCP - General Family Medicine 08/26/22 Chinyere Candelaria MD [address] [place] [phone] Critical Care 08/26/22 Jennifer Garber MD [address] [place] [address] Hematology/Oncology 08/26/22 Accounting Machine Operator Relationship Specialty Start Date End Date Wade Jones Sr., DO [address] [place] [address] PCP - General Family Medicine 08/26/22 Chinyere Candelaria MD [address] [place] [phone] Critical Care 08/26/22 Jennifer Garber MD [address] [place] [address] Hematology/Oncology 08/26/22 Accounting Machine Operator Relationship Specialty Start Date End Date Wade Jones Sr., DO [address] [place] [address] PCP - General Family Medicine 08/26/22 Chinyere Candelaria MD [address] [place] [phone] Critical Care 08/26/22 Jennifer Garber MD [address] [place] [address] Hematology/Oncology 08/26/22 Accounting Machine Operator Relationship Specialty Start Date End Date Wade Jones Sr., DO [address] [place] [address] PCP - General Family Medicine 08/26/22 Chinyere Candelaria MD [address] [place] [phone] Critical Care 08/26/22 Jennifer Garber MD [address] [place] [address] Hematology/Oncology 08/26/22 Accounting Machine Operator Relationship Specialty Start Date End Date Wade Jones Sr., DO [address] [place] [address] PCP - General Family Medicine 08/26/22 Chinyere Candelaria MD [address] [place] [phone] Critical Care 08/26/22 Jennifer Garber MD [address] [place] [address] Hematology/Oncology 08/26/22 Accounting Machine Operator Relationship Specialty Start Date End Date Wade Jones Sr., DO [address] [place] [address] PCP - General Family Medicine 08/26/22 Chinyere Candelaria MD [address] [place] [phone] Critical Care 08/26/22 Jennifer Garber MD [address] [place] [address] Hematology/Oncology 08/26/22 Accounting Machine Operator Relationship Specialty Start Date End Date Wade Jones Sr., DO PCP - General Family Medicine 08/26/22 Chinyere Candelaria MD [address] [place] [phone] Critical Care 08/26/22 Jennifer Garber MD [address] [place] [address] Hematology/Oncology 08/26/22 Accounting Machine Operator Relationship Specialty Start Date End Date Wade Jones Sr., DO PCP - General Family Medicine 08/26/22 Chinyere Candelaria MD [address] [place] [phone] Critical Care 08/26/22 Jennifer Garber MD [address] [place] [address] Hematology/Oncology 08/26/22 Accounting Machine Operator Relationship Specialty Start Date End Date Wade Jones Sr., DO PCP - General Family Medicine 08/26/22 Chinyere Candelaria MD [address] [place] [phone] Critical Care 08/26/22 Jennifer Garber MD [address] [place] [address] Hematology/Oncology 08/26/22 Accounting Machine Operator Relationship Specialty Start Date End Date Wade Jones Sr., DO PCP - General Family Medicine 08/26/22 Chinyere Candelaria MD [address] [place] [phone] Critical Care 08/26/22 Jennifer Garber MD [address] [place] [address] Hematology/Oncology 08/26/22 FOR RECORDS PERTAINING TO PATIENTS [...] BE BASED ON THE PRIMARY CLINICAL RECORDS. [facility] [employer] [facility]. provides no warranty or guarantee of the accuracy or completeness of information in this document.
[2024-03-13] VITALS (17 sets, daily range): BP systolic 117–150; BP diastolic 72–89; PULSE 76–93; TEMP 36.6–36.7; O2SAT 93–97; BMI 20.5
[2024-03-13] MEDS: 0.9 % SODIUM CHLORIDE 1,000 ML 125 ML IV ×2 (00:33→05:55)
[2024-03-13 01:17] LABS: Basophils Percent Auto 0.4 % (0.2-2.0); Eosinophils Absolute Auto 0.1 10^3/uL (0.0-0.7); Eosinophils Percent Auto 0.6 % (0.9-7.0); Hemoglobin 7.4 g/dL (14.0-18.0); Immature Granulocytes Abs Auto 0.04 10^3/uL (0.00-0.03); Immature Granulocytes Pct Auto 0.4 % (0.0-0.5); Lymphocytes Absolute Auto 2.4 10^3/uL (1.2-3.8); Lymphocytes Percent Auto 26.3 % (20.5-60.0); Mean Corpuscular Hemoglobin 29.4 pg (25.9-34.0); Mean Corpuscular Volume 94.8 fL (80.0-94.0); Mean Platelet Volume 9.3 fL (9.5-13.5); Monocytes Absolute Auto 0.5 10^3/uL (0.3-0.8); Monocytes Percent Auto 5.5 % (1.7-12.0); Neutrophils Percent Auto 66.8 % (43.0-75.0); Platelet Count 189 10^3/uL (150-450); Red Blood Count 2.52 10^6/uL (4.70-6.10); Red Cell Distribution Width 18.6 % (11.0-15.0)
[2024-03-13 01:18] LABS: PCO2 VBG 27.5 mmHg (40.0-52.0); pH VBG 7.449 (7.330-7.430)
[2024-03-13 01:38] LABS: Lactate/Lactic Acid 1.7 mmol/L (0.4-2.0)
[2024-03-13 01:54] LABS: Anion Gap 16.9; Carbon Dioxide 18.1 mmol/L (21.0-32.0); Chloride 101 mmol/L (98-107); Glucose 98 mg/dL (74-106); Sodium 133 mmol/L (136-145)
[2024-03-13 01:55] LABS: Alanine Aminotransferase 28 U/L (16-63); Albumin Globulin Ratio 0.4; Albumin Level 1.6 g/dL (3.4-5.0); Alkaline Phosphatase 106 U/L (46-116); Aspartate Amino Transferase 58 U/L (15-37); BUN Creatinine Ratio 6.4; Bilirubin Total 0.6 mg/dL (0.2-1.0); Calcium 7.6 mg/dL (8.5-10.1); Estimated GFR (African America >60 (>=60 mL/min/1.73m^2); Estimated GFR (Non-African Ame >60 (>=60 mL/min/1.73m^2); Globulin 3.9 g/dL; Magnesium 1.6 mg/dL (1.8-2.4); Total Protein 5.5 g/dL (6.4-8.2); Troponin I High Sensitivity 29.3 pg/mL (4.0-76.1)
[2024-03-13 01:57] LABS: Hematocrit 23.9 % (42.0-54.0)
[2024-03-13] MEDS: PIPERACILLIN SODIUM/TAZOBACTAM 3.375 GM in 0.9 % SODIUM CHLORIDE 50 ML IV ×3 (02:40→18:44)
[2024-03-13 04:53] LABS: PTT Heparin Monitor >139.0 sec (43.5-61.5)
[2024-03-13] MEDS: MAGNESIUM OXIDE 400 MG TABLET PO ×2 (05:52→13:32)
[2024-03-13] MEDS: OMEPRAZOLE 20 MG CAPSULE.DR PO (05:55)
[2024-03-13] MEDS: METOPROLOL SUCCINATE 50 MG TAB.ER.24H PO (08:23)
[2024-03-13] MEDS: CALCIUM CARBONATE 600 MG TABLET PO ×3 (08:23→17:38)
--- NOTE | 2024-03-13 09:54 | CA_ITS ---
Patient Name: BOBBY GRAJEDA MR#: [id number] : 1960 Exam Date: 03/13/2024 Ordering Doctor: ERIKA MAYER . ECHOCARDIOGRAM REPORT PROCEDURE: CA ECHO DOPPLER COMPLETE INDICATIONS: acute PE COMPARISON: None. DESCRIPTION: COMPLETE ECHOCARDIOGRAM Real-time transthoracic echocardiography with 2D, M-mode, spectral and color flow Doppler performed. QUALITY: Technical quality was good. LEFT VENTRICLE: Normal chamber size. Mild concentric hypertrophy. Global left ventricular systolic function is normal. LV EF: Estimated left ventricular ejection fraction is 60%. DIASTOLIC: Grade I diastolic dysfunction. ATRIAL SEPTUM: LEFT ATRIUM: Normal chamber size. RIGHT ATRIUM: Mild dilatation. RIGHT VENTRICLE: Normal chamber size. Normal right ventricular systolic function. TRICUSPID VALVE: Normal mobility and thickness. No stenosis with mild regurgitation. Moderate pulmonary hypertension. RVSP 50 mmHg MITRAL VALVE: Normal mobility and thickness. No evidence of mitral valve stenosis. There is no mitral annular calcification. Trivial mitral regurgitation. AORTIC VALVE: The valve is likely trileaflet. Mildly calcified aortic valve. Normal leaflet mobility. No evidence of aortic valve stenosis. No aortic regurgitation. AORTIC ROOT: Normal diameter and appearance, measuring 3.5 cm. Normal size ascending aorta measuring 2.5 cm. PULMONIC VALVE: Normal thickness and mobility. No stenosis. No regurgitation. PERICARDIUM: No evidence of pericardial effusion. IVC: Collapses partially with inspirations. Normal size PLEURA: CONCLUSION: 1. Mild concentric left ventricular hypertrophy with normal systolic function. LVEF is estimated at 60%. 2. Normal right ventricular size and systolic function. 3. Grade 1 mild diastolic dysfunction. 4. Likely trileaflet aortic valve, calcified with no stenosis or regurgitation. 5. Mild tricuspid regurgitation. 6. Moderately elevated right-sided pressures. RVSP is 50 mmHg. Adult Echocardiography Procedure Report Left Ventricle LVEDD (3.7 - 5.6 cm): 4.00 cm LVESD (2.2 - 4.0 cm): 2.55 cm LVIVS thickness (0.6 - 1.2 cm): 1.27 cm LVPW thickness (0.5 - 1.0 cm): 1.14 cm e': 0.06 m/s E - e': 13.43 LVOT Max Gradient: 4.12 mm[Hg] LVOT Area (cm2): 1.01 m/s Peak Velocity (LVOT): 1.01 m/s Mean Velocity (LVOT): 0.56 m/s LVOT Diameter 2.25 cm Left Ventricular Ejection Fraction: 60 % Left Atrium LA Volume Index (2D A2C): 23.32 ml/m2 Left Atrium Systolic Dimension: 2.93 cm Mitral Valve MV E to A Ratio: 0.70 Mitral Valve A-Wave Peak Velocity: 1.06 m/s Mitral Valve E-Wave Peak Velocity: 0.74 m/s Right Ventricle RV Internal Diastolic Dimension: 3.72 cm Aorta AO Root Diam: 3.50 cm Ascending Ao Diam: 2.53 cm Aortic Valve AoV Area (Peak Ronn): 3.51 cm2, 3.51 cm2 AoV Area (VTI): 4.97 cm2, 4.97 cm2 Peak Velocity(Antegrade Flow): 1.15 m/s Peak Gradient(Antegrade Flow): 5.31 mm[Hg] Mean Velocity(Antegrade Flow): 0.69 m/s Mean Gradient(Antegrade Flow): 2.34 mm[Hg] Velocity Time Integral: 18.95 cm Tricuspid Valve Peak Velocity (Regurgitant Flow): 3.23 m/s, 2.92 m/s, 2.80 m/s Pulmonic Valve Mean Gradient: 1.42 mm[Hg], 1.71 mm[Hg], 1.74 mm[Hg] Mean Velocity: 0.56 m/s, 0.61 m/s, 0.65 m/s Peak Velocity: 0.80 m/s Peak Gradient: 2.43 mm[Hg], 2.90 mm[Hg], 2.43 mm[Hg] Right Atrium Right Atrium Systolic Pressure: 71.06 ml, 71.06 ml Dictated by: Andrzej Lemons M.D. on 03/13/2024 at 17:36 Approved by: Andrzej Lemons M.D. on 03/13/2024 at 17:41
[2024-03-13 10:48] LABS: Hemoglobin 6.4 g/dL (14.0-18.0)
[2024-03-13 10:49] LABS: Hematocrit 19.8 % (42.0-54.0)
--- NOTE | 2024-03-13 11:00 | CM.NOTE ---
Rounds made with Dr. Mari, discussed with pt findings scans and labs. Discussed with pt about his condition and need for higher level of care. Pt verbalizes understanding and in agreement to transfer to [facility]. Dr. Mari will reach out to [facility] for transfer.
[2024-03-13 11:05] LABS: PTT Heparin Monitor 27.9 sec (43.5-61.5)
--- NOTE | 2024-03-13 11:50 | P.HP_ITS ---
HPI H&P: HPI History of Present Illness Chief complaint: WEAKNESS,PE,LLL PNEUMONIA Narrative: Patient is a 63 y.o white male with past medical history of adenocarcinoma Lung cancer, alcoholism, smoker, GERD, HTN, and failure to thrive, alcoholic fatty liver who presented to the ER last night with weakness and hypothermia. Patient states he ran to the store to grab dryer sheets when he was not able to get into his truck. His legs became very weak and he dropped to the ground. He called 9-1-1. On arrival temp was 95.7, patient was placed in bear hugger in the ER. Lactate was 19.4, WBC's 11.5 Hb 8.9, Trop 29, Patient received Large fluid volume, warmed resuscitation. His temp was 97.2 and he was taken off the bear hugger. ER findings of CXR: LLL infiltrate, CTA of chest and abd/pelvis showed Left sided pulm emboli with opacities of the RUL and LLL possibly pulmonary infarct or infection. new 5.4 cm adrenal mass (probable metastatic), severe right and left common iliac stenosis, and a Left subclavian artery aneurysm. Patient was placed on a heparin drip. He has been having some lower back pain and leg weakness. He has not drank alcohol for 2 months. He still smokes. He has been following with Oncology in [facility] and just finished radiation. I have discussed all findings with him. I have discussed transferring him for higher level of care, to have cardiology team, Vascular team and oncology team. He is agreement to transfer to [facility], that was initiated at 11: 49am. Patient's Hb has dropped to 6.4. The heparin drip continues. Potassium was 3.0, that was replaced orally, Mag was 1.6, IV 4grams given. Echocardiogram pending. ProBNP elevated 2962. Patient denies chest pain, but some shortness of breath. Opioid HPI Opioid Management Most Recent Pain and Opioid Data: Last Pain Scale 3 07/19/23 00:00 07/19/23 Last Pain Intensity 0 12/02/22 10:31 12/02/22 Last Pain Assessment 03/13/24 08:00 Last ORT Total Score 9 03/12/24 23:30 03/12/24 Last ORT Risk Category High Risk 03/12/24 23:30 03/12/24 Ur Phencyclidine Scrn Negative (NEGATIVE) 07/29/22 18:40 07/09 04/01 Review of Systems ROS Narrative ROS: a complete review of systems were reviewed with patient and are positive as below or listed in History of Chief Complaint. General: no fever, chills, night sweats Head: no headache, trauma, visual changes, nausea or vomiting Skin: no reported rashes, itching or sores Eyes: no blurriness of vision Ears: no reported hearing loss, vertigo, earache, or tinnitus Throat: no sore throat, hoarseness, swelling of neck, or tongue pain Heart: no chest pain Lungs: shortness of breath no cough GI: no diarrhea or vomiting/nausea Urinary: no urinary urgency, frequency or pain Neuro: no numbness or tingling HEM: no bleeding issues or bruising ENDO: no thyroid problems Psych: no anxiety or depression [facility] Medical History (Updated 03/13/24 @ 12:16 by Olivia Mari DO) Severe protein-calorie malnutrition ?E43 - Unspecified severe protein-calorie malnutrition (ICD-10) Megaloblastic anemia due to alcoholism ?D53.1 - Other megaloblastic anemias, not elsewhere classified (ICD-10) Alcoholic fatty liver ?K70.0 - Alcoholic fatty liver (ICD-10) Adenocarcinoma of left lung ?C34.92 - Malignant neoplasm of unspecified part of left bronchus or lung (ICD-10) Chronic heart failure with preserved ejection fraction (HFpEF) ?I50.32 - Chronic diastolic (congestive) heart failure (ICD-10) COPD (chronic obstructive pulmonary disease) ?J44.9 - Chronic obstructive pulmonary disease, unspecified (ICD-10) Alcohol abuse ?F10.10 - Alcohol abuse, uncomplicated (ICD-10) Tobacco dependence ?F17.200 - Nicotine dependence, unspecified, uncomplicated (ICD-10) Protein-calorie malnutrition, moderate ?E44.0 - Moderate protein-calorie malnutrition (ICD-10) Sepsis ?A41.9 - Sepsis, unspecified organism (ICD-10) Dyspnea ?R06.00 - Dyspnea, unspecified (ICD-10) Disorder of electrolytes ?E87.8 - Other disorders of electrolyte and fluid balance, not elsewhere classified (ICD-10) Generalized weakness ?R53.1 - Weakness (ICD-10) Elevated brain natriuretic peptide (BNP) level ?R79.89 - Other specified abnormal findings of blood chemistry (ICD-10) (HFpEF) heart failure with preserved ejection fraction ?I50.30 - Unspecified diastolic (congestive) heart failure (ICD-10) Generalized weakness ?R53.1 - Weakness (ICD-10) Liver mass ?R16.0 - Hepatomegaly, not elsewhere classified (ICD-10) Anemia ?D64.9 - Anemia, unspecified (ICD-10) New onset of congestive heart failure ?I50.9 - Heart failure, unspecified (ICD-10) Alcoholic ?F10.20 - Alcohol dependence, uncomplicated (ICD-10) Mass of upper lobe of left lung ?R91.8 - Other nonspecific abnormal finding of lung field (ICD-10) Adult failure to thrive ?R62.7 - Adult failure to thrive (ICD-10) Lung mass ?R91.8 - Other nonspecific abnormal finding of lung field (ICD-10) Generalized weakness ?R53.1 - Weakness (ICD-10) Surgical History History of tonsillectomy ?Z90.89 - Acquired absence of other organs (ICD-10) History of appendectomy ?Z90.49 - Acquired absence of other specified parts of digestive tract (ICD- 10) Family History Mother Family history of cancer Family history of diabetes mellitus Father Family history of diabetes mellitus Social History Smoking status: Current every day smoker Highest level of school completed/degree received: 9th grade Little interest or pleasure in doing things: not at all Feeling down, depressed, or hopeless: not at all Gender Identity: male Meds Home Medications and Allergies Home Medications ?Medication ?Instructions ?Recorded ?Confirmed ?Type metoprolol succinate 50 mg 50 mg PO DAILY 07/26/22 03/12/24 History tablet,extended release 24 hr potassium chloride 10 mEq 10 meq PO TID #90 tabs 12/04/22 03/12/24 Rx tablet,extended release(part/cryst) (Klor-Con M) calcium carbonate 600 mg PO .TIDAC 07/19/23 03/12/24 History magnesium oxide 400 mg (241.3 mg 400 mg PO TID 07/19/23 03/12/24 History magnesium) tablet ibuprofen 200 mg tablet 200 mg PO Q8H PRN pain 03/12/24 03/12/24 History omeprazole 20 mg capsule,delayed 20 mg PO .acb 03/12/24 03/12/24 History release spironolactone 25 mg tablet 25 mg PO DAILY 03/12/24 03/12/24 History Allergies Allergy/AdvReac Type Severity Reaction Status Date / Time No Known Drug Allergies Allergy Verified 03/12/24 18:01 Exam Narrative Exam Narrative: General: Patient is alert, and oriented to person, place and time with normal affect, cachexia present Skin: no visible rashes, or ulcers Head: atraumatic, acephalic Eyes: PERRLA, no nystagmus present, conjunctiva clear, no scleral icterus Ears: normal gross auditory acuity Nose: symmetric, no discharge, no maxillary or frontal sinus tenderness Mouth/Throat: no erythema, exudate, or tonsillar enlargement, normal dentition Neck: no masses palpated, normal thyroid, no JVD or audible carotid bruits Heart: Normal rate and rhythm, no murmurs/rubs/gallops Lungs: no audible wheezes, crackles and normal breath sounds all lung hi Abdomen: Normal audible bowel sounds, no distension, No palpable masses, no organomegaly, no rebound/guarding/ or rigidity Musculoskeletal: no swelling bilateral lower extremities Neuro: CN II-X grossly intact Constitutional Vital Signs, click to edit/add: Last Vital Signs Temp 97.9 F 03/13/24 08:00 Pulse 84 03/13/24 11:43 Resp 18 03/13/24 08:00 BP 119/74 03/13/24 08:00 Pulse Ox 93 L 03/13/24 08:00 O2 Del Method Room Air 03/13/24 08:00 O2 Flow Rate 4 03/12/24 17:31 Results Labs Labs: Short CBC 03/12/24 03/13/24 03/13/24 Range/Units 17:20 01:11 10:33 WBC 11.5 H 9.0 (4.0-11.0) 10^3/uL Hgb 8.9 L 7.4 L 6.4 L* (14.0-18.0) g/dL Hct 29.8 L 23.9 L* 19.8 L* (42.0-54.0) % Plt Count 331 189 (150-450) 10^3/uL BMP 03/12/24 03/13/24 17:20 01:11 Sodium 134 L 133 L Potassium 3.5 3.0 L Chloride 96 L 101 Carbon Dioxide 12.5 L 18.1 L BUN 8.0 7.0 Creatinine 1.56 H 1.10 Glucose 158 H 98 Calcium 9.1 7.6 L Liver Function 03/12/24 03/13/24 Range/Units 17:20 01:11 Total Bilirubin 0.8 0.6 (0.2-1.0) mg/dL Direct Bilirubin 0.5 H (0.0-0.2) mg/dL AST 66 H 58 H (15-37) U/L ALT 36 28 (16-63) U/L Alkaline Phosphatase 140 H 106 (46-116) U/L Albumin 2.2 L 1.6 L (3.4-5.0) g/dL Urine 03/12/24 Range/Units 19:14 Urine Color Yellow (YELLOW) Urine Clarity Clear (CLEAR) Urine pH 6.0 (5.0-9.0) Ur Specific [place] 1.015 (1.005-1.025) Urine Protein 100 A (NEG/TRACE) mg/dL Urine Glucose (UA) 100 A (NEGATIVE) mg/dL ABG ABG results: 03/12/24 03/13/24 17:30 01:11 ABG pH 7.212 L* ABG pCO2 15.6 L ABG pO2 282.0 H ABG HCO3 6.3 L ABG O2 Saturation >100.0 ABG Base Excess -21.6 L VBG pH 7.449 H VBG pCO2 27.5 L Assessment and Plan Assessment and Plan (1) Severe sepsis: Assessment and Plan: presenting lactate was 19.4. Patient received IVF bolus. Was placed on Zosyn but I added Vancomycin today. Possible CAP vs UTI or both. Blood and urine culture pending. Lactate down to 1.7 this morning. (2) Hypothermia: Assessment and Plan: most likely from acute sepsis, recovered with bear hugger, now at 97.4. Qualifiers: Encounter type: initial encounter Qualified Code(s): T68.XXXA - Hypothermia, initial encounter (3) Left pulmonary embolus: Assessment and Plan: prior cancer history vs possibly adrenal metastasis. Monitor oxygen saturations closely for high risk of decompensation. Currently on a heparin drip. Echo pending. Hopeful transfer to higher level of care today for Pulmonary/vascular consults. (4) Community acquired bilateral lower lobe pneumonia: Assessment and Plan: As seen on CTA and CXR. Continue Zosyn and Vancomycin. (5) UTI (urinary tract infection): Assessment and Plan: Urine culture pending, continue zosyn Qualifiers: Urinary tract infection type: acute cystitis Hematuria presence: without hematuria Qualified Code(s): N30.00 - Acute cystitis without hematuria (6) Subclavian artery aneurysm: Assessment and Plan: 3.0 cm. New finding. Check Echo, transfer for Vascular surgery suggestions (7) Adrenal mass, left: Assessment and Plan: New finding per patient since adenocarcinoma of the lung treatment. Transfer for Oncology. (8) Acute blood loss anemia: Assessment and Plan: Patient has been type and screened. currently 6.4, no acute blood loss, possibly dilutional. Continue heparin drip, will consider stopping heparin, starting eliquis and giving blood transfusion if drops on recheck. (9) Hypomagnesemia: Assessment and Plan: 1.6, replace with 4grams IV x 1 (10) Acute on chronic heart failure: Assessment and Plan: Elevated proBNP possible heart strain from PE? vs Anemia? patient does not appear fluid overloaded. Echo pending Qualifiers: Heart failure type: unspecified Qualified Code(s): I50.9 - Heart failure, unspecified (11) Severe protein-calorie malnutrition: Assessment and Plan: continue ENsure (12) Adenocarcinoma of left lung: Assessment and Plan: Had radiation within the last year, per patient was in remission (13) Alcoholic fatty liver: Assessment and Plan: LFT s ok, Coags initial were normal. Plan Patient is a DNRCCA Patient is currenly on Heparin drip Patient is inpatient status and expected to stay 3-4 days, but hopeful transfer to [facility] today for higher level of care. Urinary Catheter Management Urinary Catheter Management Urethral: Cath placed during this visit: yes Urethral indwelling: Yes Reason for continuing: measure accurate output Insertion date: 03/12/24 Insertion time: 17:00
[2024-03-13] MEDS: HEPARIN SODIUM (PORCINE) 5,000 UNIT/ML VIAL 5000 UNIT IV (12:18)
[2024-03-13] MEDS: HEPARIN SODIUM,PORCINE/D5W 25,000 UNIT/500 ML IV.SOLN 22 UNIT IV (12:18)
[2024-03-13] MEDS: VANCOMYCIN HCL 1,000 MG in 0.9 % SODIUM CHLORIDE 250 ML 250 MG IV (13:32)
[2024-03-13] MEDS: MAGNESIUM SULFATE IN WATER 4 GM/100 ML PIGGYBACK IV (13:32)
--- NOTE | 2024-03-13 13:32 | SWNOTE1 ---
Pt likely being transferred to higher level of care.
--- NOTE | 2024-03-13 13:36 | CM.NOTE ---
Important Message From Medicare discussed with pt, pt verbalizes understanding and signs paper. Original given to pt and copy placed in pt's chart.
--- NOTE | 2024-03-13 16:40 | PM.DS1 ---
DS: Providers Provider Date of admission: 03/12/24 23:06 Primary care physician: Jennifer Garber MD Attending physician on admission: Olivia Mari Consults: 03/12/24 Consult to Dietitian Routine Reason for consultation: Poor appeptite Has provider been notified: No 03/13/24 07:00 Occupational Therapy Eval and Treat Routine Reason for consultation: Weakness Has provider been notified: No Physical Therapy Eval and Treat Routine Reason for consultation: Weakness Has provider been notified: No Discharging clinician: Olivia Mari DS: Diagnosis Discharge Diagnosis (1) Severe sepsis: (2) Hypothermia: Qualifiers: Encounter type: initial encounter Qualified Code(s): T68.XXXA - Hypothermia, initial encounter (3) Left pulmonary embolus: (4) Community acquired bilateral lower lobe pneumonia: (5) UTI (urinary tract infection): Qualifiers: Urinary tract infection type: acute cystitis Hematuria presence: without hematuria Qualified Code(s): N30.00 - Acute cystitis without hematuria (6) Subclavian artery aneurysm: (7) Adrenal mass, left: (8) Acute blood loss anemia: (9) Hypomagnesemia: (10) Acute on chronic heart failure: Qualifiers: Heart failure type: unspecified Qualified Code(s): I50.9 - Heart failure, unspecified (11) Severe protein-calorie malnutrition: (12) Adenocarcinoma of left lung: (13) Alcoholic fatty liver: DS: Summary Hospital Course Hospital Course: Patient remained on Heparin drip, Vancomycin and Zosyn. Vitals at the time of discharge are stable. He [facility] be [facility] for higher level [facility] Care under care of Dr. Arroyo as accepting physician. Status at Discharge Functional status at discharge: bed bound Overall status at discharge: patient is not back to baseline Time Spent with Patient Time attestation: Total time spent providing and/or coordinating discharge services: Time spent: greater than 30 minutes Exam Narrative Exam Narrative: no change at the time of transfer from admitting H&P Constitutional Vital Signs, click to edit/add: Last Vital Signs Temp 97.9 F 03/13/24 08:00 Pulse 80 03/13/24 15:43 Resp 18 03/13/24 08:00 BP 119/74 03/13/24 08:00 Pulse Ox 97 03/13/24 11:36 O2 Del Method Room Air 03/13/24 11:36 O2 Flow Rate 4 03/12/24 17:31 DS: Data Data Completed and Pending Labs on day of discharge: Labs from last 24 hours 03/13/24 03/13/24 03/13/24 10:33 05:57 04:00 WBC RBC Hgb 6.4 L* Hct 19.8 L* MCV MCH MCHC RDW Plt Count MPV Neut % (Auto) Lymph % (Auto) Terrell % (Auto) Eos % (Auto) Baso % (Auto) Neut # (Auto) Lymph # (Auto) Terrell # (Auto) Eos # (Auto) Baso # (Auto) Abs Immat Gran (auto) Seg Neuts % (Manual) Band Neutrophils % Lymphocytes % (Manual) Monocytes % (Manual) Eosinophils % (Manual) Basophils % (Manual) Imm/Tot Granulo (auto) Neutrophils # (Manual) Band Neutrophils # Lymphocytes # (Manual) Monocytes # (Manual) Eosinophils # (Manual) Basophils # (Manual) Plt Clumps, EDTA Anisocytosis Macrocytosis PT INR APTT PTT (Heparin Absorb) 27.9 L* >139.0 H* Puncture Site ABG pH ABG pCO2 ABG pO2 ABG HCO3 ABG O2 Saturation ABG Base Excess Juan Test VBG pH VBG pCO2 Sodium Potassium Chloride Carbon Dioxide Anion Gap BUN Creatinine Est GFR ( Amer) Est GFR (Non-Af Amer) BUN/Creatinine Ratio Glucose Lactate Calcium Magnesium Total Bilirubin Direct Bilirubin AST ALT Alkaline Phosphatase Troponin I High Sens NT-Pro-B Natriuret Pep Total Protein Albumin Globulin Albumin/Globulin Ratio Amylase Lipase Urine Color Urine Clarity Urine pH Ur Specific [place] Urine Protein Urine Glucose (UA) Urine Ketones Urine Occult Blood Urine Nitrite Urine Bilirubin Urine Urobilinogen Ur Leukocyte Esterase Urine RBC Urine WBC Ur Squamous Epith Cells Urine Crystals Urine Bacteria Urine Casts Fine Granular Casts WBC Casts Urine Mucus Ur Culture Indicated? Stool Occult Blood Ethanol Quant Influenza Type A Ag Influenza Type B Ag SARS-CoV-2 Ag (CV2AG) Blood Type A Positive Antibody Screen Negative 03/13/24 03/12/24 03/12/24 01:11 20:26 19:14 WBC 9.0 RBC 2.52 L Hgb 7.4 L Hct 23.9 L* MCV 94.8 H MCH 29.4 MCHC 31.0 RDW 18.6 H Plt Count 189 MPV 9.3 L Neut % (Auto) 66.8 Lymph % (Auto) 26.3 Terrell % (Auto) 5.5 Eos % (Auto) 0.6 L Baso % (Auto) 0.4 Neut # (Auto) 6.0 Lymph # (Auto) 2.4 Terrell # (Auto) 0.5 Eos # (Auto) 0.1 Baso # (Auto) 0.0 Abs Immat Gran (auto) 0.04 H Seg Neuts % (Manual) Band Neutrophils % Lymphocytes % (Manual) Monocytes % (Manual) Eosinophils % (Manual) Basophils % (Manual) Imm/Tot Granulo (auto) 0.4 Neutrophils # (Manual) Band Neutrophils # Lymphocytes # (Manual) Monocytes # (Manual) Eosinophils # (Manual) Basophils # (Manual) Plt Clumps, EDTA Anisocytosis Macrocytosis PT INR APTT PTT (Heparin Absorb) Puncture Site ABG pH ABG pCO2 ABG pO2 ABG HCO3 ABG O2 Saturation ABG Base Excess Juan Test VBG pH 7.449 H VBG pCO2 27.5 L Sodium 133 L Potassium 3.0 L Chloride 101 Carbon Dioxide 18.1 L Anion Gap 16.9 BUN 7.0 Creatinine 1.10 Est GFR ( Amer) >60 Est GFR (Non-Af Amer) >60 BUN/Creatinine Ratio 6.4 Glucose 98 Lactate 1.7 3.7 H* Calcium 7.6 L Magnesium 1.6 L Total Bilirubin 0.6 Direct Bilirubin AST 58 H ALT 28 Alkaline Phosphatase 106 Troponin I High Sens 29.3 NT-Pro-B Natriuret Pep 2962.0 H* Total Protein 5.5 L Albumin 1.6 L Globulin 3.9 Albumin/Globulin Ratio 0.4 Amylase Lipase Urine Color Yellow Urine Clarity Clear Urine pH 6.0 Ur Specific [place] 1.015 Urine Protein 100 A Urine Glucose (UA) 100 A Urine Ketones Trace A Urine Occult Blood Small A Urine Nitrite Negative Urine Bilirubin Negative Urine Urobilinogen 0.2 Ur Leukocyte Esterase Negative Urine RBC 0-2 Urine WBC 5-10 A Ur Squamous Epith Cells Rare Urine Crystals None seen Urine Bacteria Small A Urine Casts Seen A Fine Granular Casts Few WBC Casts Rare Urine Mucus None seen Ur Culture Indicated? Yes Stool Occult Blood Ethanol Quant Influenza Type A Ag Influenza Type B Ag SARS-CoV-2 Ag (CV2AG) Blood Type Antibody Screen 03/12/24 03/12/24 03/12/24 17:55 17:35 17:30 WBC RBC Hgb Hct MCV MCH MCHC RDW Plt Count MPV Neut % (Auto) Lymph % (Auto) Terrell % (Auto) Eos % (Auto) Baso % (Auto) Neut # (Auto) Lymph # (Auto) Terrell # (Auto) Eos # (Auto) Baso # (Auto) Abs Immat Gran (auto) Seg Neuts % (Manual) Band Neutrophils % Lymphocytes % (Manual) Monocytes % (Manual) Eosinophils % (Manual) Basophils % (Manual) Imm/Tot Granulo (auto) Neutrophils # (Manual) Band Neutrophils # Lymphocytes # (Manual) Monocytes # (Manual) Eosinophils # (Manual) Basophils # (Manual) Plt Clumps, EDTA Anisocytosis Macrocytosis PT INR APTT PTT (Heparin Absorb) Puncture Site R rad ABG pH 7.212 L* ABG pCO2 15.6 L ABG pO2 282.0 H ABG HCO3 6.3 L ABG O2 Saturation >100.0 ABG Base Excess -21.6 L Juan Test Positive VBG pH VBG pCO2 Sodium Potassium Chloride Carbon Dioxide Anion Gap BUN Creatinine Est GFR ( Amer) Est GFR (Non-Af Amer) BUN/Creatinine Ratio Glucose Lactate Calcium Magnesium Total Bilirubin Direct Bilirubin AST ALT Alkaline Phosphatase Troponin I High Sens NT-Pro-B Natriuret Pep Total Protein Albumin Globulin Albumin/Globulin Ratio Amylase Lipase Urine Color Urine Clarity Urine pH Ur Specific [place] Urine Protein Urine Glucose (UA) Urine Ketones Urine Occult Blood Urine Nitrite Urine Bilirubin Urine Urobilinogen Ur Leukocyte Esterase Urine RBC Urine WBC Ur Squamous Epith Cells Urine Crystals Urine Bacteria Urine Casts Fine Granular Casts WBC Casts Urine Mucus Ur Culture Indicated? Stool Occult Blood Negative Ethanol Quant Influenza Type A Ag Negative Influenza Type B Ag Negative SARS-CoV-2 Ag (CV2AG) Negative Blood Type Antibody Screen 03/12/24 17:20 WBC 11.5 H RBC 2.99 L Hgb 8.9 L Hct 29.8 L MCV 99.7 H MCH 29.8 MCHC 29.9 RDW 18.7 H Plt Count 331 MPV 9.9 Neut % (Auto) Lymph % (Auto) Terrell % (Auto) Eos % (Auto) Baso % (Auto) Neut # (Auto) Lymph # (Auto) Terrell # (Auto) Eos # (Auto) Baso # (Auto) Abs Immat Gran (auto) Seg Neuts % (Manual) 32.0 L Band Neutrophils % 1.0 Lymphocytes % (Manual) 66.0 H Monocytes % (Manual) 1.0 L Eosinophils % (Manual) 0.0 L Basophils % (Manual) 0.0 L Imm/Tot Granulo (auto) Neutrophils # (Manual) 3.68 Band Neutrophils # 0.1 Lymphocytes # (Manual) 7.59 H Monocytes # (Manual) 0.11 L Eosinophils # (Manual) 0.00 Basophils # (Manual) 0.00 Plt Clumps, EDTA Rare Anisocytosis 2+ Macrocytosis 1+ PT 10.5 INR 0.99 APTT 26.0 PTT (Heparin Absorb) Puncture Site ABG pH ABG pCO2 ABG pO2 ABG HCO3 ABG O2 Saturation ABG Base Excess Juan Test VBG pH VBG pCO2 Sodium 134 L Potassium 3.5 Chloride 96 L Carbon Dioxide 12.5 L Anion Gap 29.0 BUN 8.0 Creatinine 1.56 H Est GFR ( Amer) 54 L Est GFR (Non-Af Amer) 45 L BUN/Creatinine Ratio 5.1 Glucose 158 H Lactate 19.7 H* Calcium 9.1 Magnesium Total Bilirubin 0.8 Direct Bilirubin 0.5 H AST 66 H ALT 36 Alkaline Phosphatase 140 H Troponin I High Sens 10.1 NT-Pro-B Natriuret Pep Total Protein 7.2 Albumin 2.2 L Globulin 5.0 Albumin/Globulin Ratio 0.4 Amylase 52 Lipase 59.0 Urine Color Urine Clarity Urine pH Ur Specific [place] Urine Protein Urine Glucose (UA) Urine Ketones Urine Occult Blood Urine Nitrite Urine Bilirubin Urine Urobilinogen Ur Leukocyte Esterase Urine RBC Urine WBC Ur Squamous Epith Cells Urine Crystals Urine Bacteria Urine Casts Fine Granular Casts WBC Casts Urine Mucus Ur Culture Indicated? Stool Occult Blood Ethanol Quant <3 Influenza Type A Ag Influenza Type B Ag SARS-CoV-2 Ag (CV2AG) Blood Type Antibody Screen Discharge Plan Discharge Disposition: [facility] Discharge location: Transfer to [facility], Dr. Arroyo accepting physician
[2024-03-13] MEDS: POTASSIUM CHLORIDE 40 MEQ in 0.9 % SODIUM CHLORIDE 250 ML 67.5 MEQ IV (17:38)
[2024-03-13 19:08] LABS: PTT Heparin Monitor 114.8 sec (43.5-61.5)
--- NOTE | 2024-03-13 21:13 | PC.NURSE ---
Transport arrived at 2033. Report called to Reena ENCINAS at [facility] at 2058. Pt left at 2107 with transport.
== END 2024-03-13 21:15 | disposition short-term general hospital (02) | DRG 871 ==
LOC: ER 21:03 → MS 23:23
PROVIDERS: Emergency Medicine; Internal Medicine; Registered Nurse; Admitting Provider Family Medicine; Emergency Provider Emergency Medicine; PCP Internal Medicine Hematology & Oncology; Visit Provider Family Medicine
DX: A41.9 Sepsis, unspecified organism (principal); E43 Unspecified severe protein-calorie malnutrition; I26.99 Other pulmonary embolism without acute cor pulmonale; J18.9 Pneumonia, unspecified organism; I50.33 Acute on chronic diastolic (congestive) heart failure; C34.92 Malignant neoplasm of unspecified part of left bronchus or lung; R64 Cachexia; N39.0 Urinary tract infection, site not specified; D62 Acute posthemorrhagic anemia; R68.0 Hypothermia, not associated with low environmental temperature; R65.20 Severe sepsis without septic shock; F17.200 Nicotine dependence, unspecified, uncomplicated; K21.9 Gastro-esophageal reflux disease without esophagitis; I11.0 Hypertensive heart disease with heart failure; R62.7 Adult failure to thrive; K70.0 Alcoholic fatty liver; I72.8 Aneurysm of other specified arteries; M54.50 Low back pain, unspecified; Z90.49 Acquired absence of other specified parts of digestive tract; E27.8 Other specified disorders of adrenal gland; E83.42 Hypomagnesemia; Z66 Do not resuscitate; Z68.20 Body mass index [BMI] 20.0-20.9, adult; F10.20 Alcohol dependence, uncomplicated
CPT/HCPCS: 36415; 36600; 51702; 70450; 71045; 71275; 74174; 80048; 80053; 80076; 80320; 81001; 82150; 82800; 82805; 83605; 83690; 83735; 83880; 84484; 85007; 85014; 85018; 85025; 85027; 85610; 85730; 86850; 86900; 86901; 87086; 87804; 87811; 93005; 93306; 94761; 96365; 96375; 97165; 99285; G0328; J1644; J2543; J3370; J3475; J3480; Q9966

== ENCOUNTER 2024-03-20 15:43 | Outpatient (RCR) | payer MEDICARE, OTHER, SELFPAY | END 2024-04-06 10:52 | disposition home or self-care (01) | LOC: MM 15:43 | PROVIDERS: PCP Internal Medicine Hematology & Oncology; Visit Provider Internal Medicine | DX: Z51.81 Encounter for therapeutic drug level monitoring (principal); Z79.01 Long term (current) use of anticoagulants; I26.99 Other pulmonary embolism without acute cor pulmonale | CPT/HCPCS: 85610; G0463 ==

== ENCOUNTER 2024-04-03 07:38 | Outpatient (RCR) | payer MEDICARE, OTHER, SELFPAY ==
[2024-03-27 16:09] LABS: Basophils Absolute Auto 0.1 10^3/uL (0.0-0.1); Basophils Percent Auto 0.5 % (0.2-2.0); Eosinophils Absolute Auto 0.1 10^3/uL (0.0-0.7); Eosinophils Percent Auto 0.6 % (0.9-7.0); Hematocrit 31.8 % (42.0-54.0); Hemoglobin 10.5 g/dL (14.0-18.0); Immature Granulocytes Abs Auto 0.03 10^3/uL (0.00-0.03); Immature Granulocytes Pct Auto 0.3 % (0.0-0.5); Lymphocytes Absolute Auto 1.8 10^3/uL (1.2-3.8); Lymphocytes Percent Auto 19.7 % (20.5-60.0); Mean Corpuscular Hemoglobin 29.7 pg (25.9-34.0); Mean Corpuscular Volume 90.1 fL (80.0-94.0); Mean Platelet Volume 8.5 fL (9.5-13.5); Monocytes Absolute Auto 0.6 10^3/uL (0.3-0.8); Monocytes Percent Auto 5.9 % (1.7-12.0); Neutrophils Absolute Auto 6.8 10^3/uL (1.4-6.5); Platelet Count 324 10^3/uL (150-450); Red Blood Count 3.53 10^6/uL (4.70-6.10); Red Cell Distribution Width 16.6 % (11.0-15.0); White Blood Count 9.3 10^3/uL (4.0-11.0)
[2024-03-27 16:27] LABS: Erythrocyte Sedimentation Rate >130 mm/hr (<=20)
[2024-03-27 16:32] LABS: Carbon Dioxide 24.6 mmol/L (21.0-32.0); Chloride 98 mmol/L (98-107); Potassium 4.5 mmol/L (3.5-5.1); Sodium 129 mmol/L (136-145)
[2024-03-27 16:33] LABS: Alanine Aminotransferase 24 U/L (16-63); Albumin Globulin Ratio 0.4; Albumin Level 2.1 g/dL (3.4-5.0); Alkaline Phosphatase 157 U/L (46-116); Anion Gap 10.9; Aspartate Amino Transferase 41 U/L (15-37); BUN Creatinine Ratio 4.9; Bilirubin Total 0.5 mg/dL (0.2-1.0); C Reactive Protein 2.13 mg/dL (<=0.50); Calcium 8.8 mg/dL (8.5-10.1); Estimated GFR (African America >60 (>=60 mL/min/1.73m^2); Estimated GFR (Non-African Ame 59 (>=60 mL/min/1.73m^2); Globulin 5.3 g/dL; Glucose 108 mg/dL (74-106); Percent Iron Saturation 20.9 %; Total Protein 7.4 g/dL (6.4-8.2)
[2024-03-29 04:07] LABS: Vitamin B12 513 pg/mL (232-1245)
[2024-03-29 14:08] LABS: Erythropoietin (EPO), Serum 12.2 mIU/mL (2.6-18.5)
[2024-04-03 13:00] VITALS: BP 121/87; PULSE 84; TEMP 36.2; O2SAT 92
[2024-04-03 13:23] LABS: Basophils Absolute Auto 0.1 10^3/uL (0.0-0.1); Basophils Percent Auto 0.7 % (0.2-2.0); Eosinophils Absolute Auto 0.1 10^3/uL (0.0-0.7); Eosinophils Percent Auto 0.8 % (0.9-7.0); Hematocrit 38.9 % (42.0-54.0); Hemoglobin 12.4 g/dL (14.0-18.0); Immature Granulocytes Abs Auto 0.06 10^3/uL (0.00-0.03); Immature Granulocytes Pct Auto 0.5 % (0.0-0.5); Lymphocytes Absolute Auto 2.6 10^3/uL (1.2-3.8); Lymphocytes Percent Auto 23.8 % (20.5-60.0); Mean Corpuscular HGB Conc 31.9 g/dL (29.9-35.2); Mean Corpuscular Hemoglobin 28.9 pg (25.9-34.0); Mean Corpuscular Volume 90.7 fL (80.0-94.0); Monocytes Absolute Auto 0.8 10^3/uL (0.3-0.8); Monocytes Percent Auto 6.8 % (1.7-12.0); Neutrophils Absolute Auto 7.4 10^3/uL (1.4-6.5); Neutrophils Percent Auto 67.4 % (43.0-75.0); Platelet Count 474 10^3/uL (150-450); Red Blood Count 4.29 10^6/uL (4.70-6.10); Red Cell Distribution Width 15.8 % (11.0-15.0)
[2024-04-03 13:35] LABS: Percent Iron Saturation 28.8 %
[2024-04-03 13:38] LABS: Alanine Aminotransferase 23 U/L (16-63); Albumin Globulin Ratio 0.4; Albumin Level 2.5 g/dL (3.4-5.0); Alkaline Phosphatase 165 U/L (46-116); Anion Gap 16.9; Aspartate Amino Transferase 43 U/L (15-37); BUN Creatinine Ratio 6.9; Bilirubin Total 0.4 mg/dL (0.2-1.0); Calcium 9.7 mg/dL (8.5-10.1); Carbon Dioxide 23.6 mmol/L (21.0-32.0); Chloride 98 mmol/L (98-107); Estimated GFR (African America 59 (>=60 mL/min/1.73m^2); Estimated GFR (Non-African Ame 49 (>=60 mL/min/1.73m^2); Globulin 5.6 g/dL; Glucose 101 mg/dL (74-106); Potassium 4.5 mmol/L (3.5-5.1); Sodium 134 mmol/L (136-145); Total Protein 8.1 g/dL (6.4-8.2)
== END 2024-04-04 08:31 | disposition home or self-care (01) ==
LOC: HEMC 07:38
PROVIDERS: PCP Internal Medicine Hematology & Oncology; Visit Provider Internal Medicine Hematology & Oncology
DX: C34.12 Malignant neoplasm of upper lobe, left bronchus or lung (principal); Z51.81 Encounter for therapeutic drug level monitoring; Z79.01 Long term (current) use of anticoagulants; I26.99 Other pulmonary embolism without acute cor pulmonale; C74.02 Malignant neoplasm of cortex of left adrenal gland; R91.1 Solitary pulmonary nodule; D64.9 Anemia, unspecified; D75.839 Thrombocytosis, unspecified; D72.829 Elevated white blood cell count, unspecified; D63.8 Anemia in other chronic diseases classified elsewhere
CPT/HCPCS: 36415; 80053; 82607; 82668; 82728; 82746; 83540; 83550; 85025; 85045; 85610; 85652; 86140; G0463

== ENCOUNTER 2024-04-07 09:39 | Outpatient (RCR) | payer MEDICARE, OTHER, SELFPAY | END 2024-05-04 10:16 | disposition home or self-care (01) | LOC: MM 09:39 | PROVIDERS: PCP Internal Medicine Hematology & Oncology; Visit Provider Internal Medicine | DX: Z51.81 Encounter for therapeutic drug level monitoring (principal); Z79.01 Long term (current) use of anticoagulants; I26.99 Other pulmonary embolism without acute cor pulmonale | CPT/HCPCS: 85610; G0463 ==

== ENCOUNTER 2024-04-24 07:37 | Outpatient (RCR) | payer MEDICARE, OTHER, SELFPAY ==
[2024-04-17 13:14] LABS: Basophils Absolute Auto 0.1 10^3/uL (0.0-0.1); Basophils Percent Auto 0.9 % (0.2-2.0); Eosinophils Absolute Auto 0.3 10^3/uL (0.0-0.7); Eosinophils Percent Auto 2.6 % (0.9-7.0); Hematocrit 36.5 % (42.0-54.0); Hemoglobin 11.9 g/dL (14.0-18.0); Immature Granulocytes Abs Auto 0.04 10^3/uL (0.00-0.03); Immature Granulocytes Pct Auto 0.4 % (0.0-0.5); Lymphocytes Absolute Auto 2.8 10^3/uL (1.2-3.8); Lymphocytes Percent Auto 28.9 % (20.5-60.0); Mean Corpuscular HGB Conc 32.6 g/dL (29.9-35.2); Mean Corpuscular Hemoglobin 28.7 pg (25.9-34.0); Mean Platelet Volume 8.6 fL (9.5-13.5); Monocytes Absolute Auto 0.7 10^3/uL (0.3-0.8); Monocytes Percent Auto 6.8 % (1.7-12.0); Neutrophils Absolute Auto 5.7 10^3/uL (1.4-6.5); Neutrophils Percent Auto 60.4 % (43.0-75.0); Platelet Count 321 10^3/uL (150-450); Red Blood Count 4.15 10^6/uL (4.70-6.10); Red Cell Distribution Width 14.6 % (11.0-15.0); White Blood Count 9.5 10^3/uL (4.0-11.0)
[2024-04-24 13:00] VITALS: BP 102/71; PULSE 82; TEMP 37.1; O2SAT 95
--- NOTE | 2024-04-24 13:55 | PC.NURSE ---
1355: Dr. Garber to chairside to speak with pt.
[2024-04-24 14:00] LABS: Basophils Percent Auto 0.4 % (0.2-2.0); Eosinophils Absolute Auto 0.3 10^3/uL (0.0-0.7); Eosinophils Percent Auto 2.9 % (0.9-7.0); Hematocrit 36.3 % (42.0-54.0); Hemoglobin 11.7 g/dL (14.0-18.0); Immature Granulocytes Abs Auto 0.03 10^3/uL (0.00-0.03); Immature Granulocytes Pct Auto 0.3 % (0.0-0.5); Lymphocytes Absolute Auto 2.3 10^3/uL (1.2-3.8); Lymphocytes Percent Auto 23.8 % (20.5-60.0); Mean Corpuscular HGB Conc 32.2 g/dL (29.9-35.2); Mean Corpuscular Hemoglobin 28.6 pg (25.9-34.0); Mean Corpuscular Volume 88.8 fL (80.0-94.0); Mean Platelet Volume 9.1 fL (9.5-13.5); Monocytes Absolute Auto 0.8 10^3/uL (0.3-0.8); Monocytes Percent Auto 8.2 % (1.7-12.0); Neutrophils Absolute Auto 6.1 10^3/uL (1.4-6.5); Neutrophils Percent Auto 64.4 % (43.0-75.0); Platelet Count 310 10^3/uL (150-450); Red Blood Count 4.09 10^6/uL (4.70-6.10); Red Cell Distribution Width 14.5 % (11.0-15.0); White Blood Count 9.5 10^3/uL (4.0-11.0)
[2024-04-24 14:11] LABS: Alanine Aminotransferase 28 U/L (16-63); Albumin Globulin Ratio 0.6; Albumin Level 2.7 g/dL (3.4-5.0); Alkaline Phosphatase 169 U/L (46-116); Anion Gap 12.8; Aspartate Amino Transferase 39 U/L (15-37); BUN Creatinine Ratio 18.9; Bilirubin Total 0.3 mg/dL (0.2-1.0); Calcium 9.7 mg/dL (8.5-10.1); Carbon Dioxide 25.7 mmol/L (21.0-32.0); Chloride 99 mmol/L (98-107); Estimated GFR (African America >60 (>=60 mL/min/1.73m^2); Estimated GFR (Non-African Ame >60 (>=60 mL/min/1.73m^2); Globulin 4.6 g/dL; Glucose 120 mg/dL (74-106); Potassium 4.5 mmol/L (3.5-5.1); Sodium 133 mmol/L (136-145); Total Protein 7.3 g/dL (6.4-8.2)
[2024-04-24 14:15] LABS: Magnesium 1.6 mg/dL (1.8-2.4); TSH W/ REFLEX FT4 1.289 uIU/mL (0.358-3.740)
[2024-04-24] MEDS: 0.9 % SODIUM CHLORIDE 250 ML 10 ML IV (14:16)
[2024-04-24] MEDS: PEMBROLIZUMAB 200 MG in 0.9 % SODIUM CHLORIDE 100 ML 216 MG IV (14:37)
--- NOTE | 2024-04-24 15:02 | PC.NURSE ---
1437: IV Jesus initiated at this time. Pt. without c/o.
== END 2024-05-07 23:59 | disposition home or self-care (01) ==
LOC: HEMC 07:37
PROVIDERS: PCP Internal Medicine Hematology & Oncology; Visit Provider Internal Medicine Hematology & Oncology
DX: Z51.11 Encounter for antineoplastic chemotherapy (principal); C34.12 Malignant neoplasm of upper lobe, left bronchus or lung; C74.02 Malignant neoplasm of cortex of left adrenal gland; D63.8 Anemia in other chronic diseases classified elsewhere; D64.9 Anemia, unspecified; D75.839 Thrombocytosis, unspecified; I11.0 Hypertensive heart disease with heart failure; I50.20 Unspecified systolic (congestive) heart failure; Z79.01 Long term (current) use of anticoagulants; R91.1 Solitary pulmonary nodule; F17.210 Nicotine dependence, cigarettes, uncomplicated; Z86.711 Personal history of pulmonary embolism; F10.90 Alcohol use, unspecified, uncomplicated; D18.09 Hemangioma of other sites
CPT/HCPCS: 36415; 80053; 83735; 84443; 85025; 85610; 96413; 99211; G0463; J9271

== ENCOUNTER 2024-05-08 01:57 | Outpatient (RCR) | payer MEDICARE, OTHER, SELFPAY | END 2024-06-06 13:49 | disposition home or self-care (01) | LOC: MM 01:57 | PROVIDERS: PCP Internal Medicine Hematology & Oncology; Visit Provider Internal Medicine | DX: Z51.81 Encounter for therapeutic drug level monitoring (principal); Z79.01 Long term (current) use of anticoagulants; I26.99 Other pulmonary embolism without acute cor pulmonale | CPT/HCPCS: 85610; G0463 ==

== ENCOUNTER 2024-06-05 07:31 | Outpatient (RCR) | payer MEDICARE, OTHER, SELFPAY ==
[2024-05-15 10:00] VITALS: BP 115/80; PULSE 67; TEMP 36.4; O2SAT 93
[2024-05-15 10:32] LABS: Basophils Absolute Auto 0.1 10^3/uL (0.0-0.1); Basophils Percent Auto 0.7 % (0.2-2.0); Eosinophils Absolute Auto 0.2 10^3/uL (0.0-0.7); Eosinophils Percent Auto 1.8 % (0.9-7.0); Hematocrit 39.2 % (42.0-54.0); Immature Granulocytes Abs Auto 0.04 10^3/uL (0.00-0.03); Immature Granulocytes Pct Auto 0.4 % (0.0-0.5); Lymphocytes Percent Auto 27.2 % (20.5-60.0); Mean Corpuscular HGB Conc 33.2 g/dL (29.9-35.2); Mean Corpuscular Hemoglobin 28.5 pg (25.9-34.0); Mean Platelet Volume 8.7 fL (9.5-13.5); Monocytes Percent Auto 8.6 % (1.7-12.0); Neutrophils Absolute Auto 6.8 10^3/uL (1.4-6.5); Neutrophils Percent Auto 61.3 % (43.0-75.0); Platelet Count 440 10^3/uL (150-450); Red Blood Count 4.56 10^6/uL (4.70-6.10); Red Cell Distribution Width 13.7 % (11.0-15.0); White Blood Count 11.1 10^3/uL (4.0-11.0)
[2024-05-15 10:42] LABS: Erythrocyte Sedimentation Rate 115 mm/hr (<=20)
[2024-05-15 10:43] LABS: Percent Iron Saturation 29.9 %
[2024-05-15 10:48] LABS: Alanine Aminotransferase 41 U/L (16-63); Albumin Globulin Ratio 0.6; Albumin Level 2.9 g/dL (3.4-5.0); Alkaline Phosphatase 164 U/L (46-116); Anion Gap 11.1; Aspartate Amino Transferase 33 U/L (15-37); BUN Creatinine Ratio 15.3; Bilirubin Total 0.2 mg/dL (0.2-1.0); C Reactive Protein 1.41 mg/dL (<=0.50); Calcium 9.8 mg/dL (8.5-10.1); Carbon Dioxide 26.1 mmol/L (21.0-32.0); Chloride 98 mmol/L (98-107); Estimated GFR (African America >60 (>=60 mL/min/1.73m^2); Estimated GFR (Non-African Ame >60 (>=60 mL/min/1.73m^2); Glucose 101 mg/dL (74-106); Potassium 5.2 mmol/L (3.5-5.1); Sodium 130 mmol/L (136-145); Total Protein 7.9 g/dL (6.4-8.2)
--- NOTE | 2024-05-15 11:07 | PC.NURSE ---
1000:Pt. to [facility] amb accompanied by daughter. Weight obtained. Seated in recliner. VSS. IV initiated at this time without difficulty. Labs drawn as ordered. Pt. tolerates all without c/o. Assessment complete. Denies c/o pain, n/v or dyspnea at rest. Warm blanket provided.
[2024-05-15] MEDS: PEMBROLIZUMAB 200 MG in 0.9 % SODIUM CHLORIDE 100 ML 216 MG IV (11:44)
[2024-05-16 02:16] LABS: Vitamin B12 267 pg/mL (232-1245)
[2024-06-05 10:08] VITALS: BP 129/79; PULSE 81; TEMP 36.4; O2SAT 95
[2024-06-05 10:29] LABS: Basophils Absolute Auto 0.1 10^3/uL (0.0-0.1); Basophils Percent Auto 0.6 % (0.2-2.0); Eosinophils Absolute Auto 0.2 10^3/uL (0.0-0.7); Eosinophils Percent Auto 1.8 % (0.9-7.0); Hematocrit 39.6 % (42.0-54.0); Hemoglobin 13.4 g/dL (14.0-18.0); Immature Granulocytes Abs Auto 0.11 10^3/uL (0.00-0.03); Immature Granulocytes Pct Auto 0.9 % (0.0-0.5); Lymphocytes Absolute Auto 2.6 10^3/uL (1.2-3.8); Lymphocytes Percent Auto 20.8 % (20.5-60.0); Mean Corpuscular HGB Conc 33.8 g/dL (29.9-35.2); Mean Corpuscular Volume 82.7 fL (80.0-94.0); Mean Platelet Volume 8.7 fL (9.5-13.5); Monocytes Absolute Auto 1.4 10^3/uL (0.3-0.8); Monocytes Percent Auto 11.3 % (1.7-12.0); Neutrophils Absolute Auto 8.2 10^3/uL (1.4-6.5); Neutrophils Percent Auto 64.6 % (43.0-75.0); Platelet Count 408 10^3/uL (150-450); Red Blood Count 4.79 10^6/uL (4.70-6.10); Red Cell Distribution Width 13.9 % (11.0-15.0); White Blood Count 12.6 10^3/uL (4.0-11.0)
[2024-06-05 10:59] LABS: Alanine Aminotransferase 35 U/L (16-63); Albumin Globulin Ratio 0.6; Albumin Level 3.1 g/dL (3.4-5.0); Alkaline Phosphatase 153 U/L (46-116); Anion Gap 15.1; Aspartate Amino Transferase 33 U/L (15-37); BUN Creatinine Ratio 14.3; Bilirubin Total 0.3 mg/dL (0.2-1.0); Carbon Dioxide 24.7 mmol/L (21.0-32.0); Chloride 94 mmol/L (98-107); Estimated GFR (African America >60 (>=60 mL/min/1.73m^2); Estimated GFR (Non-African Ame 57 (>=60 mL/min/1.73m^2); Globulin 4.8 g/dL; Glucose 85 mg/dL (74-106); Magnesium 1.8 mg/dL (1.8-2.4); Potassium 4.8 mmol/L (3.5-5.1); Sodium 129 mmol/L (136-145); TSH W/ REFLEX FT4 1.583 uIU/mL (0.358-3.740); Total Protein 7.9 g/dL (6.4-8.2)
[2024-06-05] MEDS: 0.9 % SODIUM CHLORIDE 250 ML 10 ML IV (11:20)
[2024-06-05] MEDS: PEMBROLIZUMAB 200 MG in 0.9 % SODIUM CHLORIDE 100 ML 216 MG IV (11:25)
--- NOTE | 2024-06-05 11:51 | PC.NURSE ---
1125: IV Radhadon initiated at this time. Pt. without c/o. Denies needs.
--- NOTE | 2024-06-05 12:08 | PC.NURSE ---
1200: Keytruda infusion completed without s&s of adverse reaction. Pt. without c/o. IV d/c'd pressure to site. Pt. tolerated without c/o pain. Awaiting to speak with Dr. Garber.
== END 2024-06-06 23:59 | disposition home or self-care (01) ==
LOC: HEMC 07:31
PROVIDERS: PCP Internal Medicine Hematology & Oncology; Visit Provider Internal Medicine Hematology & Oncology
DX: Z51.11 Encounter for antineoplastic chemotherapy (principal); C34.12 Malignant neoplasm of upper lobe, left bronchus or lung; C79.72 Secondary malignant neoplasm of left adrenal gland; Z51.81 Encounter for therapeutic drug level monitoring; Z79.01 Long term (current) use of anticoagulants; I26.99 Other pulmonary embolism without acute cor pulmonale; F17.210 Nicotine dependence, cigarettes, uncomplicated; D75.839 Thrombocytosis, unspecified; D63.8 Anemia in other chronic diseases classified elsewhere; I11.0 Hypertensive heart disease with heart failure; I50.20 Unspecified systolic (congestive) heart failure; D64.9 Anemia, unspecified
CPT/HCPCS: 36415; 80053; 82607; 82728; 82746; 83540; 83550; 83735; 84443; 85025; 85610; 85652; 86140; 96413; G0463; J9271

== ENCOUNTER 2024-06-07 04:43 | Outpatient (RCR) | payer MEDICARE, OTHER, SELFPAY | END 2024-07-07 07:11 | disposition home or self-care (01) | LOC: MM 04:43 | PROVIDERS: PCP Internal Medicine Hematology & Oncology; Visit Provider Internal Medicine | DX: Z51.81 Encounter for therapeutic drug level monitoring (principal); Z79.01 Long term (current) use of anticoagulants; I26.99 Other pulmonary embolism without acute cor pulmonale | CPT/HCPCS: 85610; G0463 ==

== ENCOUNTER 2024-06-26 07:51 | Outpatient (RCR) | payer MEDICARE, OTHER, SELFPAY ==
[2024-06-19 13:10] VITALS: BP 107/72; PULSE 58; TEMP 36.1; O2SAT 98
[2024-06-19 13:27] LABS: Basophils Percent Auto 0.3 % (0.2-2.0); Eosinophils Absolute Auto 0.1 10^3/uL (0.0-0.7); Eosinophils Percent Auto 1.5 % (0.9-7.0); Hematocrit 37.8 % (42.0-54.0); Hemoglobin 12.8 g/dL (14.0-18.0); Immature Granulocytes Abs Auto 0.05 10^3/uL (0.00-0.03); Immature Granulocytes Pct Auto 0.5 % (0.0-0.5); Lymphocytes Absolute Auto 3.5 10^3/uL (1.2-3.8); Lymphocytes Percent Auto 37.6 % (20.5-60.0); Mean Corpuscular HGB Conc 33.9 g/dL (29.9-35.2); Mean Corpuscular Hemoglobin 27.8 pg (25.9-34.0); Mean Corpuscular Volume 82.2 fL (80.0-94.0); Mean Platelet Volume 8.7 fL (9.5-13.5); Monocytes Absolute Auto 1.2 10^3/uL (0.3-0.8); Monocytes Percent Auto 12.5 % (1.7-12.0); Neutrophils Absolute Auto 4.4 10^3/uL (1.4-6.5); Neutrophils Percent Auto 47.6 % (43.0-75.0); Platelet Count 319 10^3/uL (150-450); Red Cell Distribution Width 14.5 % (11.0-15.0); White Blood Count 9.3 10^3/uL (4.0-11.0)
[2024-06-26 11:30] VITALS: BP 102/66; PULSE 58; TEMP 36.2; O2SAT 96
[2024-06-26 12:00] LABS: Basophils Absolute Auto 0.1 10^3/uL (0.0-0.1); Basophils Percent Auto 0.7 % (0.2-2.0); Eosinophils Absolute Auto 0.3 10^3/uL (0.0-0.7); Eosinophils Percent Auto 2.1 % (0.9-7.0); Hematocrit 38.7 % (42.0-54.0); Hemoglobin 13.2 g/dL (14.0-18.0); Immature Granulocytes Abs Auto 0.07 10^3/uL (0.00-0.03); Immature Granulocytes Pct Auto 0.5 % (0.0-0.5); Lymphocytes Absolute Auto 2.9 10^3/uL (1.2-3.8); Lymphocytes Percent Auto 21.9 % (20.5-60.0); Mean Corpuscular HGB Conc 34.1 g/dL (29.9-35.2); Mean Corpuscular Hemoglobin 27.7 pg (25.9-34.0); Mean Corpuscular Volume 81.1 fL (80.0-94.0); Mean Platelet Volume 8.4 fL (9.5-13.5); Monocytes Absolute Auto 1.3 10^3/uL (0.3-0.8); Monocytes Percent Auto 9.6 % (1.7-12.0); Neutrophils Absolute Auto 8.7 10^3/uL (1.4-6.5); Neutrophils Percent Auto 65.2 % (43.0-75.0); Platelet Count 387 10^3/uL (150-450); Red Blood Count 4.77 10^6/uL (4.70-6.10); Red Cell Distribution Width 14.4 % (11.0-15.0); White Blood Count 13.3 10^3/uL (4.0-11.0)
[2024-06-26 12:30] LABS: Alanine Aminotransferase 41 U/L (16-63); Albumin Globulin Ratio 0.7; Alkaline Phosphatase 177 U/L (46-116); Anion Gap 12.9; Aspartate Amino Transferase 34 U/L (15-37); BUN Creatinine Ratio 16.7; Bilirubin Total 0.2 mg/dL (0.2-1.0); Calcium 9.5 mg/dL (8.5-10.1); Carbon Dioxide 26.4 mmol/L (21.0-32.0); Chloride 95 mmol/L (98-107); Estimated GFR (African America >60 (>=60 mL/min/1.73m^2); Estimated GFR (Non-African Ame >60 (>=60 mL/min/1.73m^2); Globulin 4.5 g/dL; Glucose 87 mg/dL (74-106); Magnesium 1.9 mg/dL (1.8-2.4); Potassium 5.3 mmol/L (3.5-5.1); Sodium 129 mmol/L (136-145); TSH W/ REFLEX FT4 2.371 uIU/mL (0.358-3.740); Total Protein 7.5 g/dL (6.4-8.2)
[2024-06-26] MEDS: PEMBROLIZUMAB 200 MG in 0.9 % SODIUM CHLORIDE 100 ML 216 MG IV (13:27)
--- NOTE | 2024-06-26 13:29 | PC.NURSE ---
IV Keytruda infusing at this time.
== END 2024-06-27 08:05 | disposition home or self-care (01) ==
LOC: HEMC 07:51
PROVIDERS: PCP Internal Medicine Hematology & Oncology; Visit Provider Internal Medicine Hematology & Oncology
DX: Z51.11 Encounter for antineoplastic chemotherapy (principal); C34.12 Malignant neoplasm of upper lobe, left bronchus or lung; C79.72 Secondary malignant neoplasm of left adrenal gland; R91.1 Solitary pulmonary nodule; D64.9 Anemia, unspecified; D75.839 Thrombocytosis, unspecified; D72.829 Elevated white blood cell count, unspecified; D63.8 Anemia in other chronic diseases classified elsewhere; Z79.01 Long term (current) use of anticoagulants; Z86.711 Personal history of pulmonary embolism; I11.0 Hypertensive heart disease with heart failure; I50.20 Unspecified systolic (congestive) heart failure; F17.210 Nicotine dependence, cigarettes, uncomplicated; I26.99 Other pulmonary embolism without acute cor pulmonale
CPT/HCPCS: 36415; 80053; 83735; 84443; 85025; 96413; G0463; J9271

== ENCOUNTER 2024-07-08 08:19 | Outpatient (RCR) | payer MEDICARE, OTHER, SELFPAY | END 2024-08-02 15:04 | disposition home or self-care (01) | LOC: MM 08:19 | PROVIDERS: PCP Internal Medicine Hematology & Oncology; Visit Provider Internal Medicine | DX: Z51.81 Encounter for therapeutic drug level monitoring (principal); Z79.01 Long term (current) use of anticoagulants; I26.99 Other pulmonary embolism without acute cor pulmonale | CPT/HCPCS: 85610; G0463 ==

== ENCOUNTER 2024-07-09 13:41 | Outpatient (OUT) | payer MEDICARE, OTHER, SELFPAY ==
--- OUTSIDE RECORDS SUMMARY | 2024-07-09 13:45 | XMS_ITS | Encounter Summary ---
Author Organization [facility] Address [address] [place] [address] Care Team Providers Care Sheet Writer Name Role Phone Tiny Steinberg MD Unavailable Encounter Details Date Type Department Care Team (Late st Contact Info) Description 09/12/2023 Abstract [facility] [address] [place] [address] Unallocated, [facility] Provider, [address] [place], [place] [id number] Social History Tobacco Use Types Packs/Day Years Used Date Smoking Tobacco: Every Day Cigarettes Started: 02/08/1976 Alcohol Use Standard Drinks/Week Comments Not Currently 0 (1 standard drink = 0.6 oz pur e alcohol) Sex and Gender Information Value Date Recorded Sex Assigned at Not on file Legal Sex Male 6:47 PM EDT Gender Identity Not on file Sexual Orientation Not on file documented as of this encounter Plan of Treatment Not on file documented as of this encounter Visit Diagnoses Not on filedocumented in this encounter Care Teams Sheet Writer Relationship Specialty Start Date End Date Tiny Steinberg MD [address] [place] [address] PCP - ACO Reach 03/16/24 documented as of this encounter
--- OUTSIDE RECORDS SUMMARY | 2024-07-09 13:45 | XMS_ITS | Referral Summary ---
Author Organization [facility] Address [address] [place] [address] Care Team Providers Care Transportation Inspector Name Role Phone Chinyere Carr MD Unavailable Rita Plunkett Unavailable Delfina Salazar MD Unavailable [phone] Jennifer Garber MD Unavailable [phone] Tiny Steinberg MD Primary Care Provider [phone] Encounters Date Type Department Care Team Description 04/09/2024 2:40 PM EST Office Visit [facility] [address] [place] [address] Brenda Skinner MD Chronic heart failure with preserved ejection fraction (CMS/HCC) (Primary Dx); Other chronic pulmonary embolism without acute cor pulmonale (CMS/HCC); Pulmonary hypertension (CMS/HCC); Hyperlipidemia, unspecified hyperlipidemia type; Malignant neoplasm of left lung, unspecified part of lung (CMS/HCC); Benign hypertensive heart disease without congestive heart failure; Tobacco abuse; Alcohol abuse from Last 3 Months Allergies No known active allergies Medications Medication Sig Dispensed Refills Start Date End Date Status metoprolol succinate XL (Toprol-XL) 50 mg 24 hr tablet Take 50 mg by mouth in the morning. 05/27/2022 Active Klor-Con M10 10 mEq ER tablet Take 10 mEq by mouth three times daily. Active omeprazole (PriLOSEC) [address] capsule Take 20 mg by mouth before breakfast. Active magnesium oxide (Mag-Ox) 400 mg (241.3 mg magnesium) tablet Take 400 mg by mouth three times daily. Active calcium carbonate 600 mg calcium (1,500 mg) tablet Take 600 mg by mouth before breakfast, before lunch, and before evening meal. Active spironolactone (Aldactone) 25 mg tabletIndications:Pulmo nary embolism without acute cor pulmonale, unspecified chronicity, unspecified pulmonary embolism type (CMS/HCC),Pneumonia of left lower lobe due to infectious organism,Adrenal mass,Alcohol abuse,Tobacco use,Primary adenocarcinoma of left lung (CMS/HCC) Take 0.5 tablets (12.5 mg) by mouth in the morning. 15 tablet 3 03/21/2024 Active amLODIPine (Norvasc) 5 mg tabletIndications:Prima ry hypertension Take 1 tablet (5 mg) by mouth in the morning. 30 tablet 3 03/21/2024 Active nicotine (Nicoderm CQ) 14 mg/24 hr patchIndications:Alcoho l abuse Place 1 patch on the skin if needed each day (smoking). 14 patch 2 03/21/2024 Active warfarin (Coumadin) 5 mg tabletIndications:Pulmo nary embolism without acute cor pulmonale, unspecified chronicity, unspecified pulmonary embolism type (CMS/HCC) 5mg by mouth once daily. 14 tablet 03/21/2024 Active Active Problems Problem Noted Date Diagnosed Date Adult failure to thrive syndrome 04/09/2024 Hypocalcemia 04/09/2024 Lung cancer 04/09/2024 Multiple closed fractures of metatarsal bone of right foot with routine healing 04/09/2024 Other disorders of electroly te and fluid balance, not elsewhere classified 04/09/2024 Right foot pain 04/09/2024 Subclavian artery aneurysm 04/09/2024 Systolic heart failure 04/09/2024 Chronic heart failure with preserved ejection fr action 04/09/2024 Pulmonary hypertension 04/09/2024 Hyperlipidemia 04/09/2024 Benign hypertensive heart di sease without congestive heart failure 04/09/2024 Chronic pulmonary embolism without acute cor pul monale 03/13/2024 Assessment & Plan (03/13/2024 11:57 PM EST): Will continue heparin drip. Echo was done at [facility] and results are pending. Pneumonia of left lower lobe due to infectious o rganism 03/13/2024 Assessment & Plan (03/13/2024 11:57 PM EST): Will start patient on IV Rocephin and azithromycin. DuoNeb as needed Mucinex as needed Adrenal mass 03/13/2024 Assessment & Plan (03/13/2024 11:57 PM EST): Will need follow-up and workup as an outpatient by oncology. Alcohol abuse 03/13/2024 Assessment & Plan (03/13/2024 11:57 PM EST): CIWA protocol Alcohol withdrawal syndrome 09/01/2023 Elevated liver enzymes 09/01/2023 Hyperosmolar hyponatremia 09/01/2023 Hypokalemia due to loss of potassium 09/01/2023 Syncope due to sick sinus syndrome 09/01/2023 Elevated blood pressure read ing in office with diagnosis of hypertension 09/01/2023 Metabolic acidosis in 09/01/2023 Primary adenocarcinoma of left lung 08/19/2022 Tobacco abuse 08/19/2022 Lung nodule 08/18/2022 Social History Tobacco Use Types Packs/Day Years Used Date Smoking Tobacco: Every Day Cigarettes 1 40 Smokeless Tobacco: Never Tobacco Cessation:Ready to Q uit: Not Asked; Counseling Given: Not Answered Alcohol Use Standard Drinks/Week Comments Not Currently 42 (1 standard drink = 0.6 oz pu re alcohol) [facility] Utilities Answer Date Recorded In the past 12 months has th e [employer], gas, oil, or water [employer] threatened to shut off services in your home? No 03/13/2024 Humiliation, Afraid, Rape, and Kick questionnair e Answer Date Recorded Within the last year, have y ou been afraid of your partner or ex-partner? No 03/13/2024 Emotionally Abused Not on file 03/13/2024 Physically Abused Not on file 03/13/2024 Sexually Abused Not on file 03/13/2024 Overall Financial Resource Strain (CARDIA) Answe r Date Recorded How hard is it for you to pa y for the very basics like food, housing, medical care, and heating? Not hard at all 03/13/2024 PHQ-2 Answer Date Recorded Patient Health Questionnaire-2 Score 0 08/19/2022 Transportation Answer Date Recorded In the past 12 months, has l ack of transportation kept you from medical appointments or from getting medications? No 03/13/2024 Lack of Transportation (Non-Medical) Not on file 03/13/2024 Housing Stability Vital Sign Answer Edwin e Recorded In the last 12 months, was t here a time when you were not able to pay the mortgage or rent on time? No 03/13/2024 In the past 12 months, how m any times have you moved where you were living? 0 03/13/2024 At any time in the [facility], were you homeless or living in a prison (including now)? No 03/13/2024 Hunger Vital Sign Answer Date Recorded Within the past 12 months, y ou worried that your food would run out before you got the money to buy more. Never true 03/13/19 25 Ran Out of Food in the Last Year Not on file 03/13/2024 Sex and Gender Information Value Date Recorded Sex Assigned at Male 09/06/2022 10:18 AM EDT Gender Identity Male 09/06/2022 10:18 AM EDT Sexual Orientation Heterosexual or Straight 08/09 10:18 AM EDT Last Filed Vital Signs Vital Sign Reading Time Taken Comments Blood Pressure 106/80 04/09/2024 2:58 PM EST Pulse 88 04/09/2024 2:58 PM EST Temperature 36.4 C (97.5 F) 03/21/2024 10:04 AM EST Respiratory Rate 19 03/21/2024 10:04 AM EST Oxygen Saturation 97% 04/09/2024 2:58 PM EST Inhaled Oxygen Concentration - - Weight 59 kg (130 lb) 04/09/2024 2:58 PM EST Height 175.3 cm (5' 9 ) 04/09/2024 2:58 PM EST Body Mass Index 19.2 04/09/2024 2:58 PM EST Plan of Treatment Upcoming Encounters Date Type Department Care Team (Late st Contact Info) Description 08/31/2024 10:00 AM EDT Office Visit [facility] [address] [place] [address] Brenda Skinner MD [address] [place] [address] Procedures Procedure Name Priority Date/Time Associated Diagnosis Comments OCCULT BLOOD X 1, STOOL Routine 03/16/2024 12:22 AM EST from Last 3 Months or Most Recently Relevant to Health Maintenance Results * Occult blood x 1, stool (03/16/2024 12:22 AM EST) Fecal Occult Bld Negative Negative, None Detected 03/16/2024 6:47 AM EST [facility] Stool Rectal contents / Unknown Non-blood Collection / Unknown 03/16/2024 12:22 AM EST 03/16/2024 12:37 AM EST Eduardo Cantu MD LAB BODY FLUIDS AND STOOLS ORDERABLES [facility] [address] [place] [address] from Last 3 Months or Most Recently Relevant to Health Maintenance Advance Directives * DNR CC-A (Latest Code Status on File) Date Activated Date Inactivated Comments 03/14/2024 4:17 AM 03/21/2024 6:00 PM Question Answer Comments Select If Any Apply: No Intubation * Full Code Date Activated Date Inactivated Comments 03/13/2024 11:12 PM 03/14/2024 4:17 AM Care Teams Transportation Inspector Relationship Specialty Start Date End Date Tiny Steinberg MD [address] [place] [address] PCP - General Internal Medicine 04/09/24 Chinyere Carr MD [address] [place] [address] Surgeon Pulmonary Disease 08/18/22 Rita Plunkett [address] [place] [address] Radiation Oncology 08/18/22 Dlefina Salazar MD [address] [facility] [address] [place] [address] Thoracic Diseases 08/31/22 Jennifer Garber MD [address] [place] [address] Oncology 03/21/24
--- OUTSIDE RECORDS SUMMARY | 2024-07-09 13:45 | XMS_ITS ---
Author Organization [facility] Address [address] [place] [address] Care Team Providers Care Formula Technician Name Role Phone Chinyere Carr MD Unavailable [phone] Rita Plunkett Unavailable Delfina Salazar MD Unavailable [phone] Jennifer Garber MD Unavailable [phone] Tiny Steinberg MD Primary Care Provider [phone] Active Problems Problem Noted Date Diagnosed Date [...] continue heparin drip. Echo was done at [facility] and results are pending. Pneumonia of [...] 08/19/2022 Tobacco abuse 08/19/2022 Lung nodule 08/18/2022 Current Oncology Plans No current plan information found. Past Plans No past plan information found. Radiation Treatments * No radiation treatments are documented for this patient in [facility]. Treatments may have been administered in another system. Lifetime Dose Tracking * Chemical Lifetime Dose Automatic Entry Manual Entr y Radiation 15.4 mSv 15.4 mSv 0 mSv
--- OUTSIDE RECORDS SUMMARY | 2024-07-09 13:45 | XMS_ITS | Encounter Summary ---
Author Organization [facility] Address [address] [place] [address] Care Team Providers Care Engine Tester Name Role Phone Tiny Steinberg MD Unavailable Encounter Details Date Type Department Care Team (Late st Contact Info) Description 05/24/2024 Abstract [facility] [address] [facility] [address] [place] [address] Unallocated, [facility] Provider, [address] [place], [place] [id number] Social History Tobacco Use Types Packs/Day Years Used Date Smoking Tobacco: Every Day Cigarettes Started: 02/08/1976 Alcohol Use Standard Drinks/Week Comments Not Currently 0 (1 standard drink = 0.6 oz pur e alcohol) PHQ-2 Answer Date Recorded Patient Health Questionnaire-2 Score 0 05/03/2024 Sex and Gender Information Value Date Recorded Sex Assigned at Not on file Legal Sex Male 6:47 PM EDT Gender Identity Not on file Sexual Orientation Not on file documented as of this encounter Plan of Treatment Not on file documented as of this encounter Visit Diagnoses Not on filedocumented in this encounter Care Teams Engine Tester Relationship Specialty Start Date End Date Tiny Steinberg MD [address] [facility] [address] [place] [address] PCP - ACO Reach 03/16/24 documented as of this encounter
--- OUTSIDE RECORDS SUMMARY | 2024-07-09 13:45 | XMS_ITS | Encounter Summary ---
Author Organization [facility] Address [address] [place] [address] Care Team Providers Care Last Code Striper Name Role Phone House Sr., Wade BULL Kelsey Primary Care Provider + Chinyere Carr MD Unavailable [phone] Jennifer Garber MD Unavailable [phone] Unavailable [phone] Source Comments In the event this information is protected by the Federal Confidentiality of Alcohol and Drug AbusePatient Records regulations: The Federal rules restrict any use of the information to criminally investigate or prosecute any alcohol or drug abuse patient.[facility] Encounter Details Date Type Department Care Team (Late st Contact Info) Description 04/12/2024 Lab Requisition [facility] [address] [place] [id number] Mary Quinn MD, PhD [address] [place] [address] Person encountering health services to consult on behalf of another person Social History Tobacco Use Types Packs/Day Years Used Date Smoking Tobacco: Every Day Cigarettes 1 47 Smokeless Tobacco: Never Alcohol Use Standard Drinks/Week Comments Yes 0 (1 standard drink = 0.6 oz pur e alcohol) socially Area Deprivation Index Answer Date Fransico rded National Score (1-100), lower number is lower ri sk 59 10/14/2022 State Score (1-10), lower number is lower risk 4 10/14/2022 Data from: https://www.neighborhoodatlas.[facility].edu/. Last address used for calculation [address] 10/14/2022 Sex and Gender Information Value Date Recorded Sex Assigned at Not on file Legal Sex Male 12:48 PM EDT Gender Identity Not on file Sexual Orientation Not on file documented as of this encounter Plan of Treatment Not on file documented as of this encounter Procedures Procedure Name Priority Date/Time Associated Diagnosis Comments SURGICAL PATHOLOGY REFERENCE LAB CONSULT Routine 04/12/2024 9:01 AM EST Person encountering health services to consult on behalf of another person documented in this encounter Results * SURGICAL PATHOLOGY REFERENCE LAB CONSULT (04/12/2024 9:01 AM EST) Case Report Surgical Pathology Report Case: [id number] Authorizing Provider: Mary Quinn MD, Collected: 04/12/2024 09:01 AM PhD Ordering Location: [facility] Received: 04/12/2024 09:00 AM [facility] Pathologist: Shante Ramos MD Specimen: Block(s) and/or Slide(s), 17 SLIDES / 2 BLOCKS [id number];4,5 04/16/2024 3:51 PM EDT [facility] FINAL DIAGNOSIS [facility], [place], [place] ([id number], 03/16/2024): A. Adrenal gland, biopsy: -SMARCA2 deficient carcinoma, consistent with patient's lung primary. 04/16/2024 3:51 PM EDT [facility] at 1551 EDT Diagnosis Comment Thank you very much for allowing me to review this adrenal gland biopsy in a 63-year-old man. 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 I entirely agree with the overall diagnostic impression of a poorly differentiated carcinoma. Histologic sections demonstrate a high-grade neoplasm with abundant nuclear atypia, mitoses, apoptoses and tumor cell necrosis. Additionally noted in association with the tumor is and admixed inflammatory infiltrate. Immunohistochemical stains provided by the contributing institution are reviewed here and demonstrates the following within the tumor: P40: Positive, focal Inhibin: Negative CK20: Negative Synaptophysin: Negative CK7: Positive P63: Rare positive Napsin A: Negative TTF-1: Negative Calretinin: Negative [place] 1: Negative PAX8: Negative GATA3 equivocal Given these morphologic features, additional immunohistochemical stains performed at the [facility] to aid in the classification of the tumor and demonstrates the following: SF1: Negative CAM5.2: Positive SMARCA2: Loss of expression SMARCA4: Retained expression INI1: Retained expression GATA3: Negative This immunophenotype, in conjunction with morphology and the patient's clinical history of lung adenocarcinoma, I would regard this tumor to be best classified as a SMARCA2 deficient carcinoma, consistent with the patient's lung primary. Due to the challenging nature of this case, this case was reviewed with my colleagues at the genitourinary pathology consensus conference and Drs. Roula Bhatt, Yumiko Varela, Jay Thorne, Roula Schwartz and Clover Carpenter agree with the above interpretation. Thank you for allowing me to provide an opinion on this case. 04/16/2024 3:51 PM EDT [facility] Clinical History CONSULT REQUSTED 04/16/2024 3:51 PM EDT [facility] Performing Lab Diagnostic interpretation performed at: [facility], [address] [place] [address] CLIA# [id number] Immunology Specialist: Jose Fung MD 04/16/2024 3:51 PM EDT [facility] Disclaimer Laboratory Developed Test (LDT) Disclaimer: Performance characteristics of immunohistochemical, immunofluorescent, and chromogenic in-situ hybridization tests have been determined by the performing laboratory within [facility] ([facility], [facility], [facility], [facility], [facility], [facility], or [facility]) in a manner consistent with CLIA requirements. One or more of these tests may not have been cleared or approved by the FDA. [facility] is regulated under CLIA as qualified to perform high-complexity testing. These tests are used for clinical purposes. These should not be regarded as investigational or for research. Positive and negative controls stain appropriately. 04/16/2024 3:51 PM EDT [facility] Blocks or Slides PARAFFIN EMBEDDED TISSUE BLOCK SPECIMEN / Unknown 04/12/2024 9:01 AM EST 04/12/2024 9:00 AM EST us Mary Quinn MD, PhD SURGICAL PATHOLOGY Fi nal Result [facility] [address] [facility] [address] [place] [address], documented in this encounter Visit Diagnoses Diagnosis Person encountering health services to consult on behalf of another person Other person consulting on behalf of another person documented in this encounter Care Teams Last Code Striper Relationship Specialty Start Date End Date Wade Fereman Sr., PCP - General Family Medicine 08/26/22 Chinyere Carr MD [address] [place] [address] Critical Care 08/26/22 Jennifer Garber MD [address] [place] [address] Hematology/Oncology 08/26/[address] [place] [address] [place] [address] Registered Dietitian Nutrition 04/18/24 documented as of this encounter
--- OUTSIDE RECORDS SUMMARY | 2024-07-09 13:45 | XMS_ITS | Encounter Summary ---
Author Organization [facility] Address [address] [place] [address] Care Team Providers Care Lacing String Cutter Name Role Phone Tiny Steinberg MD Unavailable Encounter Details Date Type Department Care Team (Late st Contact Info) Description 08/31/2023 Abstract [facility] [address] [place] [address] Unallocated, [facility]oms Provider, [address] [place], [place] [id number] Social History Tobacco Use Types Packs/Day Years [...] on filedocumented in this encounter Care Teams Lacing String Cutter Relationship Specialty Start Date End Date Tiny Steinberg MD [address] [place] [address] PCP - ACO Reach 03/16/24 documented as of this encounter
--- OUTSIDE RECORDS SUMMARY | 2024-07-09 13:45 | XMS_ITS | Encounter Summary ---
Author Organization [facility] Address [address] [place] [address] Care Team Providers Care Shirt Ironer Name Role Phone Tiny Steinberg MD Unavailable Reason for Visit * Reason Onset Date Comments Med Refill 07/03/2024 Encounter Details Date Type Department Care Team (Late st Contact Info) Description 07/03/2024 Refill [facility] [address] [facility] [address] [place] [id number] Diana German LPN [address] [place] [address] Vitamin D deficiency Social History Tobacco Use Types Packs/Day Years [...] documented as of this encounter Visit Diagnoses Diagnosis Vitamin D deficiency documented in this encounter Care Teams Shirt Ironer Relationship Specialty Start Date End Date Tiny Steinberg MD [address] [facility] [address] [place] [address] PCP - ACO Reach 03/16/24 documented as of this encounter
--- OUTSIDE RECORDS SUMMARY | 2024-07-09 13:45 | XMS_ITS | Encounter Summary ---
Author Organization [facility] Address [address] [place] [address] Care Team Providers Care Medical Center Director Name Role Phone Tiny Steinberg MD Unavailable Encounter Details Date Type Department Care Team (Late st Contact Info) Description 06/27/2024 Abstract [facility] [address] [facility] [address] [place] [address] Unallocated, [facility]oms Provider, [address] [place], [place] [id number] Social History Tobacco Use Types Packs/Day Years [...] on filedocumented in this encounter Care Teams Medical Center Director Relationship Specialty Start Date End Date Tiny Steinberg MD [address] [facility] [address] [place] [address] PCP - ACO Reach 03/16/24 documented as of this encounter
--- OUTSIDE RECORDS SUMMARY | 2024-07-09 13:45 | XMS_ITS | Encounter Summary ---
Author Organization [facility] Address [address] [place] [address] Care Team Providers Care Administrative Intern Name Role Phone Tiny Steinberg MD Unavailable Encounter Details Date Type Department Care Team (Late st Contact Info) Description 06/11/2024 Abstract [facility] [address] [facility] [address] [place] [address] Unallocated, [facility] Provider, [address] [place], [place] [id number] Social History Tobacco Use Types Packs/Day Years [...] on filedocumented in this encounter Care Teams Administrative Intern Relationship Specialty Start Date End Date Tiny Steinberg MD [address] [facility] [address] [place] [address] PCP - ACO Reach 03/16/24 documented as of this encounter
--- OUTSIDE RECORDS SUMMARY | 2024-07-09 13:45 | XMS_ITS | Encounter Summary ---
Author Organization [facility] Address [facility] [place] [address] Care Team Providers Care Ultrasound Tech Name Role Phone House Sr., Wade BULL Primary Care Provider + Chinyere Carr MD Unavailable [phone] Jennifer Garber MD Unavailable [phone] Unavailable [phone] Source Comments In the event this information is protected by the Federal Confidentiality of Alcohol and Drug AbusePatient Records regulations: The Federal rules restrict any use of the information to criminally investigate or prosecute any alcohol or drug abuse patient.[facility] Encounter Details Date Type Department Care Team (Latest Contact Info) Description 03/29/2024 H&P External-NonCCF Provider, External, JIGNESH Do not enter address information under generic External Provider. Social History Tobacco Use Types Packs/Day Years [...] is lower risk 4 10/14/2022 Data from: https://www.neighborhoodatlas.medicine.[facility].edu/. Last address used for calculation [address] 10/14/2022 Sex and Gender Information Value Date Recorded Sex Assigned at Not on file Legal Sex Male 12:48 PM EDT Gender Identity Not on file Sexual Orientation Not on file documented as of this encounter Plan of Treatment Not on file documented as of this encounter Visit Diagnoses Not on filedocumented in this encounter Care Teams Ultrasound Tech Relationship Specialty Start Date End Date Wade Freeman Sr., DO PCP - General Family Medicine 08/26/22 Chinyere Carr MD [address] [place] [address] Critical Care 08/26/22 Jennifer Garber MD [address] [place] [address] Hematology/Oncology 08/26/[address] [place] [address] [place] [address] Registered Dietitian Nutrition 04/18/24 documented as of this encounter
--- OUTSIDE RECORDS SUMMARY | 2024-07-09 13:45 | XMS_ITS | Clinical Summary ---
Author Organization [facility] Address [facility] [place] [address] Care Team Providers Care Furnace Door Tender Name Role Phone House Sr., Wade BULL Kelsey Primary Care Provider + Chinyere Carr MD Unavailable [phone] Jennifer Garber MD Unavailable [phone] Unavailable [phone] Allergies No known active allergies Medications metoprolol succinate ER (TOPROL XL) 50 mg 24 hr tablet Take 1 tablet by mouth every 12 hours. 09/04/2022 Active calcium carbonate (CALCIUM 500 ORAL) Take by mouth. Active potassium chloride (KLOR-CON M10 ORAL) Take 10 mEq by mouth once daily. 12/04/2022 Active magnesium oxide (MAG-OX) 400 mg (241.3 mg magnesium) tablet Take 1 tablet by mouth three times a day. 01/01/2023 Active nicotine (NICODERM) 21 mg/24 hr 02/23/2023 Active amLODIPine (NORVASC) 5 mg tablet Take 5 mg by mouth. 03/21/2024 Active omeprazole (PRILOSEC) 20 mg capsule Take 20 mg by mouth. 09/01/2023 Active spironolactone (ALDACTONE) 25 mg tablet Take 12.5 mg by mouth. 09/01/2023 Active warfarin (COUMADIN) 5 mg tablet 5mg by mouth once daily. 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) 04/19/2024 12:33 PM EDT - 04/19/2024 11:59 PM EDT Hospital Encounter Radiology Pet CT [address] [place] [address] 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) [C34.12] Discharge Disposition: Home 04/18/2024 12:45 PM EDT Education Nutrition Therapy [address] [place] [address] Nutrition Telephone 04/18/2024 Travel 04/12/2024 Lab Requisition [facility] [address] [place] [address] Mary Quinn MD, PhD Person encountering health services to consult on behalf of another person from Last 3 Months Family History Medical History Relation Comments Breast Cancer Mother Relation Status Comments Mother Social History Tobacco Use Types Packs/Day Years Used Date Smoking Tobacco: Every Day Cigarettes 1 47 Smokeless Tobacco: Never Tobacco Cessation:Ready to Q uit: Not Asked; Counseling Given: Not Answered Alcohol Use Standard Drinks/Week Comments Yes 0 (1 standard drink = 0.6 oz pur e alcohol) socially Area Deprivation Index Answer Date Fransico rded National Score (1-100), lowe r number is lower risk 60 04/18/2024 State Score (1-10), lower number is lower risk 4 04/18/2024 Data from: https://www.neighborhoodatlas.[facility].edu/. Last address used for calculation [address] [place] [address] [address] 04/18/2024 Sex and Gender Information Value Date Recorded Sex Assigned at Not on file Legal Sex Male 12:48 PM EDT Gender Identity Not on file Sexual Orientation Not on file Last Filed Vital Signs Vital Sign Reading Time Taken Comments Blood Pressure 117/77 04/26/2024 11:42 AM EDT Pulse 91 04/06/2024 1:04 PM EST Temperature 35.9 C (96.7 F) 04/26/2024 11:42 AM EDT Respiratory Rate 18 04/26/2024 11:42 AM EDT Oxygen Saturation 97% 04/26/2024 11:42 AM EDT Inhaled Oxygen Concentration - - Weight 60.9 kg (134 lb 4.2 oz) 04/26/2024 11:42 AM EDT Height 173 cm (5' 8.11 ) 10/14/2022 3:50 PM EDT Body Mass Index 20.35 10/14/2022 3:50 PM EDT Plan of Treatment Health Maintenance Due Date Last Done Comments Abdominal Aortic Aneurysm Screening 1960 Anxiety Screening 1976 Depression Screening 1976 HIV Screening 1976 Hepatitis C Screening 1976 DTaP,Tdap,Td Vaccine (1 - Tdap) 1977 Pneumococcal Vaccine: 50+ (1 of 2 - PCV) [address] Colonography 07/22/2003 Cologuard (FIT-DNA) 07/22/2003 Colonoscopy 07/22/2003 Prostate Cancer Screening Discussion 07/22/2003 Sigmoidoscopy 07/22/2003 Shingrix Vaccine (1 of 2) 2008 Covid-19 Vaccine (3 - 2023-2 5 season) 2023 10/27/2020, 09/24/2020 Advance Directive Discussion 02/08/2024 Influenza Vaccine (Season Ended) 2024 Colorectal Cancer Screening 03/16/2025 Fecal Occult Blood 03/16/2025 03/16/2024 Diabetes Screening 03/21/2027 03/21/2024, 0 03/20/2024, 03/19/2024, Additional history exists RSV Vaccine (1 - 1-dose 75+ series) 2033 Procedures Procedure Name Priority Date/Time Associated Diagnosis Comments NM PET/CT SKULL-THIGH SUBSEQUENT Routine 04/19/2024 2:44 PM EDT 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) Left adrenal mass (HCC) GLUCOSE, BLOOD (POC) Routine 04/19/2024 12:46 PM EDT SURGICAL PATHOLOGY REFERENCE LAB CONSULT Routine 04/12/2024 9:01 AM EST Person encountering health services to consult on behalf of another person from Last 3 Months Results * NM PET/CT SKULL-THIGH SUBSEQUENT (04/19/2024 2:44 PM EDT) Anatomical Region Laterality Modality Nuclear Medicine , Nuclear Medicine 04/19/2024 2:43 PM EDT Narrative 04/20/2024 9:28 AM EDT * * *Final Report* * * DATE OF EXAM: Apr 19 2024 2:43PM NRN [id number] - NM PET/CT SKULL-THIGH SUBQ / PROCEDURE REASON: multiple diagnoses * * * * Physician Interpretation * * * * RESULT: EXAMINATION: BODY FDG PET-CT CLINICAL HISTORY: 63-year-old male with history of left upper lobe lung cancer status post radiation therapy. EXAM CATEGORY: Subsequent treatment strategy. TECHNIQUE: Radiopharmaceutical was administered intravenously followed by PET imaging from the eyes to thighs. Free breathing, low dose CT of the same body region was acquired without IV contrast for attenuation correction and anatomic localization. Unenhanced imaging is limited for the evaluation of some pathology and the acquired CT was not designed to produce diagnostic CT scan quality. Physiologic/non-pathologic uptake in some body regions could confound or obscure some pathology. * CT Dose-Length Product (DLP): 158 mGy*cm * CT Dose Reduction Employed: Yes * Blood glucose: 95 mg/dL * Injection site: Left Forearm-Antecubital * Injected activity: 6.8 mCi * Uptake Time: 44 minutes * Radiopharmaceutical: T94-Nnfgeltcxqnpenouct (FDG) COMPARISON: 01/24/2023 CORRELATION: Outside CT scan 03/14/2024 RESULT: REFERENCES: FDG uptake is used as a surrogate marker for glucose metabolism. All reported standardized uptake values represent maximum SUV (SUVmax) per body weight, unless otherwise specified. SUV reference values, as follows: * Blood Pool (Descending Aorta): SUVmax 2.4 previously 2.5 * Background Liver: SUVmax 3.6 previously 3.7; SUVmean 2.5 previously 2.5 Localizer Images: No additional findings HEAD AND NECK: Head: No radiotracer avid lesion or mass effect in the imaged intracranial compartment. Aerodigestive Tract: No radiotracer avid lesion. Lymph Nodes: No radiotracer avid lymphadenopathy. Neck Soft Tissues: No radiotracer avid thyroid nodule. CHEST: Lungs & Pleura: Interval resolution of left upper lobe FDG avid mass seen on prior with posttreatment changes. Groundglass nodularity in the right apex 1.1 cm with SUV max 2.3 previously 1.1. New FDG avid left lower lobe perihilar nodule 0.6 cm with SUV max 6.0 (4:112). Airspace opacity in the lateral left lower lobe with mild uptake likely infectious/inflammatory. Lymph Nodes: No radiotracer avid lymphadenopathy. Mediastinum: No radiotracer avid mass. Cardiovascular: Blood pool activity. No pericardial effusion. Normal heart size. Coronary artery calcifications. Chest Wall: No radiotracer avid soft tissue lesion. ABDOMEN AND PELVIS: Hepatobiliary: No radiotracer avid lesion. No measurable mass. Spleen: No radiotracer avid lesion. No splenomegaly. Pancreas: No radiotracer avid lesion. Adrenals: Left adrenal FDG avid mass 4.5 x 6.2 cm with SUV max 22.9, new from prior PET/CT. Urinary Tract: Physiologic radiotracer excretion in the renal collecting systems and urinary bladder. No hydronephrosis. GI Tract: No radiotracer avid lesion. No bowel dilation. Peritoneum: No radiotracer avid lesion. No ascites. Lymph Nodes: No radiotracer avid lymphadenopathy. Vasculature: Blood pool activity. Pelvic Organs: FDG avid right pelvic sidewall mass 3.2 x 3.0 cm with SUV max 22.8. MUSCULOSKELETAL: Bones: No radiotracer avid lesion. No lytic or sclerotic lesion. Soft Tissues: No radiotracer avid lesion. IMPRESSION Since 01/24/2023, PRIMARY DISEASE SITE: * Interval resolution of left upper lobe FDG avid mass seen on prior with posttreatment changes. * New FDG avid left lower lobe perihilar nodule likely metastatic. * Mild uptake in waxing and waning right apical groundglass nodularity, favor infectious/inflammatory, for follow-up. KALIA DISEASE: * No metabolically active regional lymphadenopathy. METASTATIC DISEASE: * FDG avid right adrenal mass, new from prior PET/CT. * FDG avid right pelvic wall mass, new. Transcribe Date/Time: Apr 20 2024 9:04A Dictated by: SAFIA ALFRED MD This examination was interpreted and the report reviewed and electronically signed by: SAFIA ALFRED MD on Apr 20 2024 9:26AM EST Thank you for allowing us to participate in the care of your patient. Should there be any questions regarding this interpretation, please call [phone]. If you are unable to reach us at the number above, please feel free to contact [facility] at [phone]. Procedure Note Provider, [facility] [place] - 04/20/2024 * * *Final Report* * * DATE OF EXAM: Apr 19 2024 2:43PM NRN [id number] - NM PET/CT SKULL-THIGH SUBQ / PROCEDURE REASON: multiple diagnoses * * * * Physician Interpretation * * * * RESULT: EXAMINATION: BODY FDG PET-CT CLINICAL HISTORY: 63-year-old male with history of left upper lobe lung cancer status post radiation therapy. EXAM CATEGORY: Subsequent treatment strategy. TECHNIQUE: Radiopharmaceutical was administered intravenously followed by PET imaging from the eyes to thighs. Free breathing, low dose CT of the same body region was acquired without IV contrast for attenuation correction and anatomic localization. Unenhanced imaging is limited for the evaluation of some pathology and the acquired CT was not designed to produce diagnostic CT scan quality. Physiologic/non-pathologic uptake in some body regions could confound or obscure some pathology. * CT Dose-Length Product (DLP): 158 mGy*cm * CT Dose Reduction Employed: Yes * Blood glucose: 95 mg/dL * Injection site: Left Forearm-Antecubital * Injected activity: 6.8 mCi * Uptake Time: 44 minutes * Radiopharmaceutical: I31-Rukcjbaafxxdnzhbkq (FDG) COMPARISON: 01/24/2023 CORRELATION: Outside CT scan 03/14/2024 RESULT: REFERENCES: FDG uptake is used as a surrogate marker for glucose metabolism. All reported standardized uptake values represent maximum SUV (SUVmax) per body weight, unless otherwise specified. SUV reference values, as follows: * Blood Pool (Descending Aorta): SUVmax 2.4 previously 2.5 * Background Liver: SUVmax 3.6 previously 3.7; SUVmean 2.5 previously2.5 Localizer Images: No additional findings HEAD AND NECK: Head: No radiotracer avid lesion or mass effect in the imaged intracranial compartment. Aerodigestive Tract: No radiotracer avid lesion. Lymph Nodes: No radiotracer avid lymphadenopathy. Neck Soft Tissues: No radiotracer avid thyroid nodule. CHEST: Lungs & Pleura: Interval resolution of left upper lobe FDG avid mass seen on prior with posttreatment changes. Groundglass nodularity in the right apex 1.1 cm with SUV max 2.3 previously 1.1. New FDG avid left lower lobe perihilar nodule 0.6 cm with SUV max 6.0 (4:112). Airspace opacity in the lateral left lower lobe with mild uptake likely infectious/inflammatory. Lymph Nodes: No radiotracer avid lymphadenopathy. Mediastinum: No radiotracer avid mass. Cardiovascular: Blood pool activity. No pericardial effusion. Normal heart size. Coronary artery calcifications. Chest Wall: No radiotracer avid soft tissue lesion. ABDOMEN AND PELVIS: Hepatobiliary: No radiotracer avid lesion. No measurable mass. Spleen: No radiotracer avid lesion. No splenomegaly. Pancreas: No radiotracer avid lesion. Adrenals: Left adrenal FDG avid mass 4.5 x 6.2 cm with SUV max 22.9, new from prior PET/CT. Urinary Tract: Physiologic radiotracer excretion in the renal collecting systems and urinary bladder. No hydronephrosis. GI Tract: No radiotracer avid lesion. No bowel dilation. Peritoneum: No radiotracer avid lesion. No ascites. Lymph Nodes: No radiotracer avid lymphadenopathy. Vasculature: Blood pool activity. Pelvic Organs: FDG avid right pelvic sidewall mass 3.2 x 3.0 cm with SUV max 22.8. MUSCULOSKELETAL: Bones: No radiotracer avid lesion. No lytic or sclerotic lesion. Soft Tissues: No radiotracer avid lesion. IMPRESSION Since 01/24/2023, PRIMARY DISEASE SITE: * Interval resolution of left upper lobe FDG avid mass seen on prior with posttreatment changes. * New FDG avid left lower lobe perihilar nodule likely metastatic. * Mild uptake in waxing and waning right apical groundglass nodularity, favor infectious/inflammatory, for follow-up. KALIA DISEASE: * No metabolically active regional lymphadenopathy. METASTATIC DISEASE: * FDG avid right adrenal mass, new from prior PET/CT. * FDG avid right pelvic wall mass, new. Transcribe Date/Time: Apr 20 2024 9:04A Dictated by: SAFIA ALFRED MD This examination was interpreted and the report reviewed and electronically signed by: SAFIA ALFRED MD on Apr 20 2024 9:26AM EST Thank you for allowing us to participate in the care of your patient. Should there be any questions regarding this interpretation, please call [phone]. If you are unable to reach us at the number above, please feel free to contact [facility] at [phone]. Don Ortiz MD NM-PAMA Final Result * GLUCOSE, BLOOD (POC) (04/19/2024 12:46 PM EDT) Pathologist [facility] [place] Glucose, Point of Care 95 74 - 99 mg/dL [facility] Comment: Location:[facility], [address] [place] [address] , [place], [place], [address] The Accu-Chek Inform II glucose meter has [...] blood gas instrument) in the above situations. 04/19/2024 12:4 6 PM EDT [facility] Provider POC TESTING Final Result [facility] POINT OF CARE [address] [place], [place] * SURGICAL PATHOLOGY REFERENCE LAB CONSULT (04/12/2024 9:01 AM EST) Case Report Surgical Pathology Report Case: [id number] Authorizing Provider: Mary Quinn MD, Collected: 04/12/2024 09:01 AM PhD Ordering Location: [facility] Received: 04/12/2024 09:00 AM [facility] Pathologist: Shante Ramos MD Specimen: Block(s) and/or Slide(s), 17 SLIDES / 2 BLOCKS [id number];4,5 04/16/2024 3:51 PM EDT [facility] FINAL DIAGNOSIS [facility], [place], [place] ([id number], 03/16/2024): A. Adrenal gland, biopsy: -SMARCA2 deficient carcinoma, consistent with patient's lung primary. 04/16/2024 3:51 PM EDT [facility] at 1551 EDT Diagnosis Comment Thank [...] Napsin A: Negative TTF-1: Negative Calretinin: Negative Severance 1: Negative PAX8: Negative GATA3 equivocal Given these morphologic features, additional immunohistochemical stains performed at the [facility] to aid in the classification of the [...] at the genitourinary pathology consensus conference and Yumiko Garcia C. Kao, S. Williamson, Roula Schwartz and Clover Carpenter agree with the above interpretation. Thank you for allowing me to provide an opinion on this case. 04/16/2024 3:51 PM EDT [facility] Clinical History CONSULT REQUSTED 04/16/2024 3:51 PM EDT [facility] Performing Lab Diagnostic interpretation performed at: [facility], [address] [place] [address], [place] [address] CLIA# [id number] Internist: Jose Fung MD 04/16/2024 3:51 PM EDT [facility] Disclaimer Laboratory Developed Test (LDT) Disclaimer: Performance characteristics of immunohistochemical, immunofluorescent, and chromogenic in-situ hybridization tests have been determined by the performing laboratory within [facility]'s [facility] Pathology and Laboratory Medicine Department ([facility], [facility], [facility], [facility], [facility], [facility], or [facility]) in a manner consistent with CLIA requirements. One or more of these tests may not have been cleared or approved by the FDA. [facility] is regulated under CLIA as qualified to perform high-complexity testing. These tests are used for clinical purposes. These should not be regarded as investigational or for research. Positive and negative controls stain appropriately. 04/16/2024 3:51 PM EDT [facility] Blocks or Slides PARAFFIN EMBEDDED TISSUE BLOCK SPECIMEN / Unknown 04/12/2024 9:01 AM EST 04/12/2024 9:00 AM EST us Mary Quinn MD, PhD SURGICAL PATHOLOGY Fi nal Result [facility] [address] [address], from Last 3 Months Insurance MEDICARE Member Subscriber Plan / Payer (Ef fective 2023-Present) Name:Jaret Velazco Member ID:[id number] Relation to Subscriber:Self Name:Jaret Velazco Subscriber ID:[id number] Payer ID:Not on file Group ID:Not on file Type:Medicare Address: [facility] [address] Care Teams Furnace Door Tender Relationship Specialty Start Date End Date Wade Freeman Sr., DO PCP - General Family Medicine 08/26/22 Chinyere Carr MD [address] [place] [address] Critical Care 08/26/22 Jennifer Garber MD [address] [place] [address] Hematology/Oncology 08/26/[address] [place] [address] [place] [address] Registered Dietitian Nutrition 04/18/24
--- OUTSIDE RECORDS SUMMARY | 2024-07-09 13:45 | XMS_ITS | Encounter Summary ---
Author Organization [facility] Address [address] [place] [address] Care Team Providers Care Field Map Technician Name Role Phone Tiny Steinberg MD Unavailable Encounter Details Date Type Department Care Team (Late st Contact Info) Description 09/12/2023 Abstract [facility] [address] [place] [address] Unallocated, [facility] Provider, [address] [place], [place] [id number] Social History Tobacco Use Types Packs/Day Years [...] on filedocumented in this encounter Care Teams Field Map Technician Relationship Specialty Start Date End Date Tiny Steinberg MD [address] [place] [address] PCP - ACO Reach 03/16/24 documented as of this encounter
--- OUTSIDE RECORDS SUMMARY | 2024-07-09 13:45 | XMS_ITS | Encounter Summary ---
Author Organization [facility] Address [address] [place] [address] Care Team Providers Care Section Chief Name Role Phone Tiny Steinberg MD Unavailable Encounter Details Date Type Department Care Team (Late st Contact Info) Description 03/27/2024 Abstract [facility] [address] [place] [address] Unallocated, [facility] Provider, [address] [place], [place] [id number] Social History Tobacco Use Types Packs/Day Years [...] on filedocumented in this encounter Care Teams Section Chief Relationship Specialty Start Date End Date Tiny Steinberg MD [address] [place], [place] [id number] PCP - ACO Reach 03/16/24 documented as of this encounter
--- OUTSIDE RECORDS SUMMARY | 2024-07-09 13:45 | XMS_ITS | Encounter Summary ---
Author Organization [facility] Address [address] [place] [address] Care Team Providers Care Device Engineer Name Role Phone Tiny Steinberg MD Unavailable Encounter Details Date Type Department Care Team (Late st Contact Info) Description 08/31/2023 Abstract [facility] [address] [place] [address] Unallocated, [facility] Provider, [address] [place], [place] [id number] Social History Tobacco Use Types Packs/Day Years [...] on filedocumented in this encounter Care Teams Device Engineer Relationship Specialty Start Date End Date Tiny Steinberg MD [address] [place] [address] PCP - ACO Reach 03/16/24 documented as of this encounter
--- OUTSIDE RECORDS SUMMARY | 2024-07-09 13:45 | XMS_ITS | Clinical Summary ---
Author Organization [facility] Healthcare Address [address] [place] [address] Care Team Providers Care Sponge Press Operator Name Role Phone Tiny Steinberg MD Unavailable Allergies No known active allergies Medications metoprolol succinate XL (Toprol-XL) 50 MG 24 hr tablet Take 50 mg by mouth Daily Active spironolactone (Aldactone) 25 MG tabletIndication s:Lung nodule Take 1 tablet (25 mg) by mouth Daily 100 tablet 3 4 Active omeprazole (PriLOSEC) [address] capsuleIndicatio ns:Elevated liver enzymes Take 1 capsule (20 mg) by mouth Daily 100 capsule 3 4 Active furosemide (Lasix) 40 MG tabletIndication s:Hyperosmolar hyponatremia Take 1 tablet (40 mg) by mouth Daily 90 tablet 2 4 Active potassium chloride CR (Klor-Con M10) 10 MEQ ER tabletIndication s:Hypokalemia Take 1 tablet (10 mEq) by mouth in the morning and 1 tablet (10 mEq) in the evening and 1 tablet (10 mEq) before bedtime. Do not crush or chew.. 270 tablet 3 4 09/20/19 25 Active magnesium oxide (Mag-Ox) 400 (240 Mg) MG tabletIndication s:Heart failure, unspecified HF chronicity, unspecified heart failure type (CMS/HCC) Take 1 tablet (400 mg) by mouth in the morning and 1 tablet (400 mg) in the evening and 1 tablet (400 mg) before bedtime. 90 tablet 11 4 Active amLODIPine (Norvasc) 5 MG tablet Take 5 mg by mouth 5 Active warfarin (Coumadin) 5 MG tablet Take 5 mg by mouth 1 (one) time each day Take as directed per After Visit Summary. Active calcium carbonate ([facility]S Calcium) 600 MG tabletIndication s:Vitamin D deficiency Take 1 tablet (600 mg) by mouth in the morning and 1 tablet (600 mg) at noon and 1 tablet (600 mg) in the evening. Take with meals. 300 tablet 2 Active calcium carbonate (CVS Calcium) 600 MG tabletIndication s:Vitamin D deficiency Take 1 tablet (600 mg) by mouth in the morning and 1 tablet (600 mg) at noon and 1 tablet (600 mg) in the evening. Take with meals. 300 tablet 2 4 07/04/19 Discontinu ed(Reorder ) Active Problems Problem Noted Date Diagnosed Date Alcohol withdrawal syndrome 09/01/2023 Elevated blood pressure read ing in office with diagnosis of hypertension 09/01/2023 Elevated liver enzymes 09/01/2023 Hyperosmolar hyponatremia 09/01/2023 Hypokalemia due to loss of potassium 09/01/2023 Metabolic acidosis in 09/01/2023 Syncope due to sick sinus syndrome 09/01/2023 Primary adenocarcinoma of left lung 08/19/2022 Tobacco use 08/19/2022 Lung nodule 08/18/2022 Encounters Date Type Department Care Team Description 07/03/2024 Refill [facility] [address] [place] [address] Diana German LPN Vitamin D deficiency 06/27/2024 Abstract [facility] [address] [place] [address] Unallocated, [facility] MD Tunde 06/11/2024 Abstract [facility] [address] [place] [address] Unallocated, [facility] ProviderMD 05/24/2024 Abstract [facility] [address] [place] [address] Unallocated, N[facility] ProviderMD 05/10/2024 Telephone [facility] [address] [place] [address] Kylie Rogers, ASSEMBLYMAN OR WOMAN 05/10/2024 Telephone [facility] [address] [place] [address] Kylie Rogers NP 05/03/2024 11:30 AM EDT Office Visit [facility] [address] [facility] [address] [place] [id number] Kylie Rogers, JOAN Hypokalemia (Primary Dx); 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; Hypomagnesemia; Thyroid disorder screening; Emphysema, unspecified (CMS/HCC); Heart failure, unspecified (CMS/HCC) ; Alcohol use, unspecified with withdrawal, uncomplicated (CMS/HCC) 05/03/2024 Bamboo flowsheet [facility] [address] [facility] [address] [place] [id number] Kylie Rogers NP 05/03/2024 Travel from Last 3 Months Family History Medical History Relation Name Comments Diabetes Father Lung cancer Mother Relation Name Status Comments Father Mother Sister Alive Social History Tobacco Use Types Packs/Day Years Used Date Smoking Tobacco: Every Day Cigarettes Started: 02/08/1976 Tobacco Cessation:Ready to Q uit: No; Counseling Given: Yes Alcohol Use Standard Drinks/Week Comments Not Currently [...] Sign Reading Time Taken Comments Blood Pressure 126/82 05/03/2024 11:33 AM EDT Pulse 107 05/03/2024 11:33 AM EDT Temperature - - Respiratory Rate 17 05/03/2024 11:33 AM EDT Oxygen Saturation 95% 05/03/2024 11:33 AM EDT Inhaled Oxygen Concentration - - Weight 61.4 kg (135 lb 6.4 oz) 05/03/2024 11:33 AM EDT Height 175.3 cm (5' 9 ) 05/03/2024 11:33 AM EDT Body Mass Index 20 05/03/2024 11:33 AM EDT Plan of Treatment Health Maintenance Due Date Last Done Comments CT Colonography 1960 Colonoscopy 1960 FIT-DNA 1960 FIT 1960 Medicare Annual Wellness (AWV) 1960 Sigmoidoscopy 1960 Pneumococcal Vaccine: 65+ Years (1 of 2 - PCV) 978 Influenza Vaccine (Season Ended) 2024 Colorectal Cancer Screening 03/16/2025 FOBT 03/16/2025 03/16/2024 Procedures Procedure Name Priority Date/Time Associated Diagnosis Comments MAGNESIUM Routine 05/04/2024 10:12 AM EDT Hypomagnesemia COMPREHENSIVE METABOLIC PANEL Routine 05/04/2024 10:12 AM EDT Hypokalemia CBC Routine 05/04/2024 10:12 AM EDT 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 from Last 3 Months Results * (ABNORMAL) CBC (05/04/2024 10:12 AM EDT) WHITE BLOOD CELL COUNT 9.2 3.8 - 10.8 Thousand/u L [facility] RED BLOOD CELL COUNT 4.62 4.20 - 5.80 Million/uL [facility] HEMOGLOBIN 13.0(L) 13.2 - 17.1 g/dL [facility] HEMATOCRIT 40.1 38.5 - 50.0 % [facility] MCV 86.8 80.0 - 100.0 fL [facility] MCH 28.1 27.0 - 33.0 pg [facility] MCHC 32.4 32.0 - 36.0 g/dL [facility] Comment: For adults, a slight decrease in the calculated MCHC value (in the range of 30 to 32 g/dL) is most likely not clinically significant; however, it should be interpreted with caution in correlation with other red cell parameters and the patient's clinical condition. RDW 13.2 11.0 - 15.0 % [facility] PLATELET COUNT 484(H) 140 - 400 Thousand/u L [facility] MPV 9.5 7.5 - 12.5 fL [facility] Blood Venous blood specimen / Unknown 05/04/2024 10:12 AM EDT 05/04/2024 10:13 AM EDT Narrative [facility] - 05/05/2024 6:32 AM EDT FASTING:YES PRIOR AUTH REQUIRED, PATIENT ADVISED TO CONTACT PHYSICIAN. FASTING: YES Resulting Agency Comment Performing Organization Information Site ID: QPT Name: [facility] Address: [address] [place] [address], [address] [place] [phone] Director: Luis Gongora MD us Kylie Rogers NP LAB BLOOD ORDERABLES Final Resul t Performing Organization Address [facility] de Phone Number [facility] * Magnesium (05/04/2024 10:12 AM EDT) [facility] MAGNESIUM 1.9 1.5 - 2.5 mg/dL [facility] Blood Venous blood specimen / Unknown 05/04/2024 10:12 AM EDT 05/04/2024 10:13 AM EDT Narrative [facility] - 05/05/2024 6:32 AM EDT FASTING:YES PRIOR AUTH REQUIRED, PATIENT ADVISED TO CONTACT PHYSICIAN. FASTING: YES Resulting Agency Comment Performing Organization Information Site ID: QPT Name: [facility] Address: [address] [place] [address], [address] [place] [phone] Director: Luis Gongora MD us Kylie Rogers NP LAB BLOOD ORDERABLES Final Resul t Performing Organization Address [facility] de Phone Number [facility] * (ABNORMAL) Comprehensive metabolic panel (05/04/2024 10:12 AM EDT) Pathologist [facility] Glucose 105(H) 65 - 99 mg/dL [facility] Comment: Fasting reference interval For someone without known diabetes, a glucose value between 100 and 125 mg/dL is consistent with prediabetes and should be confirmed with a follow-up test. BUN 19 7 - 25 mg/dL [facility] Creatinine 1.08 0.70 - 1.35 mg/dL [facility] EGFR 76 > OR = 60 mL/min/1. 73m2 [facility] BUN/CREATININE RATIO SEE NOTE: 6 - 22 (calc) [facility] Comment: Not Reported: BUN and Creatinine are within reference range. Sodium 132(L) 135 - 146 mmol/L [facility] Potassium, Bld 5.4(H) 3.5 - 5.3 mmol/L [facility] Chloride 96(L) 98 - 110 mmol/L [facility] Carbon Dioxide 26 20 - 32 mmol/L [facility] Calcium 10.3 8.6 - 10.3 mg/dL [facility] PROTEIN, TOTAL 7.7 6.1 - 8.1 g/dL [facility] ALBUMIN 3.9 3.6 - 5.1 g/dL [facility] GLOBULIN 3.8(H) 1.9 - 3.7 g/dL (calc) [facility] ALBUMIN/GLOBULIN RATIO 1.0 1.0 - 2.5 (calc) [facility] BILIRUBIN, TOTAL 0.4 0.2 - 1.2 mg/dL [facility] ALKALINE PHOSPHATASE 141 35 - 144 U/L [facility] AST 28 10 - 35 U/L [facility] ALT 22 9 - 46 U/L [facility] Blood Venous blood specimen / Unknown 05/04/2024 10:12 AM EDT 05/04/2024 10:13 AM EDT Narrative [facility] - 05/05/2024 6:32 AM EDT FASTING:YES PRIOR AUTH REQUIRED, PATIENT ADVISED TO CONTACT PHYSICIAN. FASTING: YES Resulting Agency Comment Performing Organization Information Site ID: QPT Name: [facility] Address: [address] [place] [address], [address] [place] [phone] Director: Luis Gongora MD us Kylie Rogers NP LAB BLOOD ORDERABLES Final Resul t [facility] from Last 3 Months Insurance [facility] MEDICARE Care Teams Sponge Press Operator Relationship Specialty Start Date End Date Tiny Steinberg MD [address] [address] PCP - ACO Reach 03/16/24
--- OUTSIDE RECORDS SUMMARY | 2024-07-09 13:46 | XMS_ITS | Clinical Summary ---
Author Organization [facility] Address [address] [place] [address] Care Team Providers Care Hr Manager Name Role Phone Chinyere Carr MD Unavailable Rita Plunkett Unavailable [phone] Delfina Salazar MD Unavailable [phone] Jennifer Garber MD Unavailable [phone] Tiny Steinberg MD Primary Care Provider [phone] Allergies No known active allergies Medications Medication [...] continue heparin drip. Echo was done at [facility] and results are pending. Pneumonia of left [...] Assessment & Plan (03/13/2024 11:57 PM EST): [facility] protocol Alcohol withdrawal syndrome 09/01/2023 Elevated liver enzymes 09/01/2023 Hyperosmolar hyponatremia 09/01/2023 Hypokalemia due to loss of potassium 09/01/2023 Syncope due to sick sinus syndrome 09/01/2023 Elevated blood pressure read ing in office with diagnosis of hypertension 09/01/2023 Metabolic acidosis in 09/01/2023 Primary adenocarcinoma of left lung 08/19/2022 Tobacco abuse 08/19/2022 Lung nodule 08/18/2022 Encounters Date Type Department Care Team Description 04/09/2024 2:40 PM EST Office Visit [facility] [address] [place] [address] Brenda Skinner MD Chronic heart failure with preserved ejection fraction (CMS/HCC) (Primary Dx); Other chronic pulmonary embolism without acute cor pulmonale (CMS/HCC); Pulmonary hypertension (CMS/HCC); Hyperlipidemia, unspecified hyperlipidemia type; Malignant neoplasm of left lung, unspecified part of lung (CMS/HCC); Benign hypertensive heart disease without congestive heart failure; Tobacco abuse; Alcohol abuse from Last 3 Months Social History Tobacco Use Types Packs/Day Years Used Date Smoking Tobacco: Every Day Cigarettes 1 40 Smokeless Tobacco: Never Tobacco Cessation:Ready to Q uit: Not Asked; Counseling Given: Not Answered Alcohol Use Standard Drinks/Week Comments Not Currently 42 (1 standard drink = 0.6 oz pu re alcohol) [facility] Utilities Answer Date Recorded In the past 12 months has th e [employer], gas, oil, or water [employer] threatened to shut off services in your [...] any time in the past 12 m [facility], were you homeless or living in a custodial (including now)? No 03/13/2024 Hunger Vital Sign [...] Description 08/31/2024 10:00 AM EDT Office Visit [facility] [address] [place] [address] Brenda Skinner MD [address] [place] [address] Health Maintenance Due Date Last Done Comments CT Colonography 1960 Colonoscopy 1960 FIT-DNA 1960 FIT 1960 Medicare Annual Wellness (AWV) 1960 Sigmoidoscopy 1960 Pneumococcal Vaccine: 65+ Years (1 of 2 - PCV) 1964 Depression Screening 1970 Adult Tetanus 1980 Zoster Vaccines (1 of 2) 2008 COVID-19 Vaccine (3 - 2023-2 5 season) 2023 10/27/2020, 09/24/2020 Influenza Vaccine (Season Ended) 2024 Colorectal Cancer Screening 03/16/2025 FOBT 03/16/2025 03/16/2024 Fall Risk Screening 03/21/2025 03/21/2024 HIB Vaccines Aged Out No longer eligi ble based on patient's age to complete this topic HPV Vaccines Aged Out No longer eligi ble based on patient's age to complete this topic IPV Vaccines Aged Out No longer eligi ble based on patient's age to complete this topic Meningococcal B Vaccine Aged Out No l onger eligible based on patient's age to complete this topic Meningococcal Vaccine Aged Out No bessy karen eligible based on patient's age to complete this topic Rotavirus Vaccines Aged Out No longer eligible based on patient's age to complete this topic Procedures Procedure Name Priority Date/Time Associated Diagnosis Comments OCCULT BLOOD X 1, STOOL Routine 03/16/2024 12:22 AM EST from Last 3 Months or Most Recently Relevant to Health Maintenance Results * Occult blood x 1, stool (03/16/2024 12:22 AM EST) Fecal Occult Bld Negative Negative, None Detected 03/16/2024 6:47 AM EST [facility] ([facility]) Stool Rectal contents / Unknown Non-blood Collection / Unknown 03/16/2024 12:22 AM EST 03/16/2024 12:37 AM EST Eduardo Cantu MD LAB BODY FLUIDS AND STOOLS ORDERABLES [facility] ([facility]) [address] [place] [address] from Last 3 Months or Most Recently Relevant to Health Maintenance Advance Directives * DNR CC-A (Latest Code Status on File) Date Activated Date Inactivated Comments 03/14/2024 4:17 AM 03/21/2024 6:00 PM Question Answer Comments Select If Any Apply: No Intubation * Full Code Date Activated Date Inactivated Comments 03/13/2024 11:12 PM 03/14/2024 4:17 AM Care Teams Hr Manager Relationship Specialty Start Date End Date Tiny Steinberg MD [address] [facility] [address] [place] [address] PCP - General Internal Medicine 04/09/24 Chinyere Carr MD [address] [place] [address] Surgeon Pulmonary Disease 08/18/22 Rita Plunkett [address] [place] [address] Radiation Oncology 08/18/22 Delfina Salazar MD [address] [facility] [place] [address] Thoracic Diseases 08/31/22 Jennifer Garber MD [address] [place] [address] Oncology 03/21/24
--- OUTSIDE RECORDS SUMMARY | 2024-07-09 13:46 | XMS_ITS | Encounter Summary ---
Author Organization [facility] Address [address] [place] [address] Care Team Providers Care Medical Technician Assistant Name Role Phone Tiny Steinberg MD Unavailable Encounter Details Date Type Department Care Team (Late st Contact Info) Description 08/10/2023 Abstract [facility] [address] [facility] [address] [place] [address] Tiny Steinberg MD [address] [facility] [address] [place], [place] [id number] Social History Tobacco Use Types Packs/Day Years Used Date Smoking Tobacco: Never Assessed Sex and Gender Information Value Date Recorded Sex Assigned at Not on file Legal Sex Male 6:47 PM EDT Gender Identity Not on file Sexual Orientation Not on file documented as of this encounter Plan of Treatment Not on file documented as of this encounter Visit Diagnoses Not on filedocumented in this encounter Care Teams Medical Technician Assistant Relationship Specialty Start Date End Date Tiny Steinberg MD [address] [facility] [address] [place] [address] PCP - ACO Reach 03/16/24 documented as of this encounter
--- OUTSIDE RECORDS SUMMARY | 2024-07-09 13:46 | XMS_ITS | Encounter Summary ---
Author Organization [facility] Address [facility] [place] [address] Care Team Providers Care Alligator Trapper Name Role Phone House Sr., Wade BULL Primary Care Provider + Chinyere Carr MD Unavailable [phone] Jennifer Garber MD Unavailable [phone] Unavailable [phone] Source Comments In the event this information is protected by the Federal Confidentiality of Alcohol and Drug AbusePatient Records regulations: The Federal rules restrict any use of the information to criminally investigate or prosecute any alcohol or drug abuse patient.[facility] Encounter Details Date Type Department Care Team (Latest Contact Info) Description 01/05/2023 H&P External-NonCCF Provider, External, JIGNESH Do not [...] is lower risk 4 10/14/2022 Data from: https://www.neighborhoodatlas.medicine.[facility].edu/. Last address used for calculation [address] [facility] [address] 10/14/2022 Sex and Gender Information Value Date Recorded Sex Assigned at Not on file Legal Sex Male 12:48 PM EDT Gender Identity Not on file Sexual Orientation Not on file documented as of this encounter Plan of Treatment Not on file documented as of this encounter Visit Diagnoses Not on filedocumented in this encounter Care Teams Alligator Trapper Relationship Specialty Start Date End Date Wade Freeman Sr., DO PCP - General Family Medicine 08/26/22 Chinyere Carr MD [address] [place] [address] Critical Care 08/26/22 Jennifer Garber MD [address] [place] [address] Hematology/Oncology 08/26/[address] [place] [address] [place] [address] Registered Dietitian Nutrition 04/18/24 documented as of this encounter
--- OUTSIDE RECORDS SUMMARY | 2024-07-09 13:46 | XMS_ITS | Encounter Summary ---
Author Organization [facility] Address [address] [place] [address] Care Team Providers Care Head Scorer Name Role Phone Tiny Steinberg MD Unavailable Encounter Details Date Type Department Care Team (Late st Contact Info) Description 08/10/2023 Abstract [facility] [address] [email or web address] [address] [place] [address] Kylie Rogers, WAREHOUSE TRAFFIC SUPERVISOR [address] [facility] [address] [place] [address] Social History Tobacco Use Types Packs/Day Years [...] on filedocumented in this encounter Care Teams Head Scorer Relationship Specialty Start Date End Date Tiny Steinberg MD [address] [facility] [address] [place] [address] PCP - ACO Reach 03/16/24 documented as of this encounter
--- NOTE | 2024-07-09 16:32 | PE_ITS ---
The [address] [address] Patient Name: BOBBY GRAJEDA MRN: [id number] date: 1960 Sex: M Assigned Patient Location: PETCT Current Patient Location: Accession/Order Number: [id number] Exam Date: 07/10/2024 11:32 Report Date: 07/10/2024 12:02 At the request of: ROZINA PONCE MD Procedure: PET skull to mid thigh PET CT WITH FUSION COMPARISON: 04/19/2024 CLINICAL DATA: Follow-up of left upper lobe lung cancer Following the intravenous administration of 14.32 mCi of FDG, SPECT imaging in 3 planes was performed from the level the orbits through the brain. The patient's blood glucose level at the time of injection was 86 mg/dL. Spiral unenhanced CT was also performed for anatomic localization. The PET and CT images were fused. This CT exam was performed using one or more following dose reduction techniques: Automated exposure control, adjustment of the mA and/or kV according to patient size, or use of iterative reconstruction technique. NECK: No enlarged or hypermetabolic cervical lymph nodes are seen. There are still increased FDG uptake at the nose, undetermined etiology and significance. Carotid artery plaque is noted. CHEST: There is obstructive lung disease with scarring or atelectasis. Suspected scarring with associated calcifications at the left upper lobe is unchanged and not hypermetabolic. There is still a hypermetabolic left hilar focus that might be a lymph node with SUV of 16.2 increase in size in uptake since the prior. There is parenchymal change at the posterior lateral left lower lobe which has improved since the prior though there is no new more nodular 2.8 cm component extending into the costophrenic angle. This is not hypermetabolic. The thoracic aorta is ectatic, particularly the descending segment. There is coronary artery disease. Bilateral gynecomastia is seen, left greater than right. ABDOMEN/PELVIS: There are no hypermetabolic hepatic lesions. There is an enlarging, lobulated left adrenal mass with peripheral FDG uptake which appears slightly larger however the FDG uptake values have decreased. Current max SUV is between 12 and 13 and previously the highest measurement was 20. There is a mass with peripheral FDG uptake and maximum SUV of almost 18 at the iliac fossa on the right. Previous SUV measured just over 20. This has enlarged from 2.4 cm to 5.3 cm. The central portion may be necrotic. There are periportal lymph nodes which are slightly larger though not hypermetabolic. There is no other hypermetabolic adenopathy within the abdomen or pelvis. There is physiologic activity involving the urinary tract and bowel. Prominent atherosclerotic disease is noted. There is mild prostate hypertrophy. The urinary bladder is poorly distended and the wall appears thickened. PET/PET skull to mid thigh IMPRESSION: INCREASED SIZE AND FDG UPTAKE INVOLVING A SUSPECTED LEFT HILAR LYMPH NODE. LEFT-SIDED PARENCHYMAL CHANGES WHICH ARE NOT HYPERMETABOLIC. ENLARGING LEFT ADRENAL LESION WHICH SHOWS INTERVAL DECREASE IN FDG UPTAKE. ENLARGING RIGHT ILIAC FOSSA MASS/ADENOPATHY WITH CENTRAL NECROSIS, ALSO WITH SLIGHT DECREASE IN FDG UPTAKE. Impression dictated by: Kasie Hayes M.D. 07/10/2024 12:02 PM Dictation Location: [place] [address] Electronically authenticated by: [id number] Y Date: 07/10/2024 12:02
== END 2024-07-09 13:42 | disposition home or self-care (01) ==
LOC: PETCT 13:42
PROVIDERS: PCP Internal Medicine Hematology & Oncology; Visit Provider Internal Medicine Hematology & Oncology
DX: R91.1 Solitary pulmonary nodule (principal); D64.9 Anemia, unspecified; C34.12 Malignant neoplasm of upper lobe, left bronchus or lung; D75.839 Thrombocytosis, unspecified; D72.829 Elevated white blood cell count, unspecified; D63.8 Anemia in other chronic diseases classified elsewhere; Z79.01 Long term (current) use of anticoagulants; C79.72 Secondary malignant neoplasm of left adrenal gland; Z86.711 Personal history of pulmonary embolism; I50.20 Unspecified systolic (congestive) heart failure; I11.0 Hypertensive heart disease with heart failure
CPT/HCPCS: 78815; A9552

== ENCOUNTER 2024-07-17 09:16 | Outpatient (RCR) | payer MEDICARE, OTHER, SELFPAY ==
[2024-07-17 10:43] VITALS: BP 105/71; PULSE 96; TEMP 36.3; O2SAT 97
[2024-07-17 10:53] LABS: Basophils Absolute Auto 0.1 10^3/uL (0.0-0.1); Basophils Percent Auto 0.8 % (0.2-2.0); Eosinophils Absolute Auto 0.4 10^3/uL (0.0-0.7); Eosinophils Percent Auto 3.5 % (0.9-7.0); Hematocrit 36.1 % (42.0-54.0); Hemoglobin 12.5 g/dL (14.0-18.0); Immature Granulocytes Abs Auto 0.04 10^3/uL (0.00-0.03); Immature Granulocytes Pct Auto 0.3 % (0.0-0.5); Lymphocytes Absolute Auto 2.6 10^3/uL (1.2-3.8); Lymphocytes Percent Auto 20.7 % (20.5-60.0); Mean Corpuscular HGB Conc 34.6 g/dL (29.9-35.2); Mean Corpuscular Hemoglobin 28.4 pg (25.9-34.0); Monocytes Absolute Auto 1.2 10^3/uL (0.3-0.8); Monocytes Percent Auto 9.1 % (1.7-12.0); Neutrophils Absolute Auto 8.3 10^3/uL (1.4-6.5); Neutrophils Percent Auto 65.6 % (43.0-75.0); Platelet Count 391 10^3/uL (150-450); Red Cell Distribution Width 15.9 % (11.0-15.0); White Blood Count 12.7 10^3/uL (4.0-11.0)
[2024-07-17 11:09] LABS: Alanine Aminotransferase 29 U/L (16-63); Albumin Globulin Ratio 0.7; Albumin Level 3.1 g/dL (3.4-5.0); Alkaline Phosphatase 150 U/L (46-116); Anion Gap 15.8; Aspartate Amino Transferase 28 U/L (15-37); BUN Creatinine Ratio 24.5; Bilirubin Total 0.4 mg/dL (0.2-1.0); Calcium 9.8 mg/dL (8.5-10.1); Carbon Dioxide 23.8 mmol/L (21.0-32.0); Chloride 94 mmol/L (98-107); Estimated GFR (African America >60 (>=60 mL/min/1.73m^2); Estimated GFR (Non-African Ame >60 (>=60 mL/min/1.73m^2); Globulin 4.5 g/dL; Glucose 101 mg/dL (74-106); Potassium 4.6 mmol/L (3.5-5.1); Sodium 129 mmol/L (136-145); Total Protein 7.6 g/dL (6.4-8.2)
[2024-07-17 11:17] LABS: Magnesium 1.7 mg/dL (1.8-2.4); TSH W/ REFLEX FT4 1.725 uIU/mL (0.358-3.740)
[2024-07-17] MEDS: PEMBROLIZUMAB 200 MG in 0.9 % SODIUM CHLORIDE 100 ML IV (11:48)
== END 2024-07-18 08:09 | disposition home or self-care (01) ==
LOC: HEMC 09:16
PROVIDERS: PCP Internal Medicine Hematology & Oncology; Visit Provider Internal Medicine Hematology & Oncology
DX: Z51.11 Encounter for antineoplastic chemotherapy (principal); C34.12 Malignant neoplasm of upper lobe, left bronchus or lung; C79.72 Secondary malignant neoplasm of left adrenal gland; D75.839 Thrombocytosis, unspecified; D63.8 Anemia in other chronic diseases classified elsewhere; Z79.01 Long term (current) use of anticoagulants; I11.0 Hypertensive heart disease with heart failure; I50.20 Unspecified systolic (congestive) heart failure; Z86.711 Personal history of pulmonary embolism; F17.210 Nicotine dependence, cigarettes, uncomplicated; F10.90 Alcohol use, unspecified, uncomplicated; Z51.81 Encounter for therapeutic drug level monitoring; I26.99 Other pulmonary embolism without acute cor pulmonale
CPT/HCPCS: 36415; 80053; 83735; 84443; 85025; 85610; 96413; G0463; J9271

== ENCOUNTER 2024-08-07 02:34 | Outpatient (RCR) | payer MEDICARE, OTHER, SELFPAY | END 2024-09-06 16:43 | disposition home or self-care (01) | LOC: MM 02:34 | PROVIDERS: PCP Internal Medicine Hematology & Oncology; Visit Provider Internal Medicine | DX: Z51.81 Encounter for therapeutic drug level monitoring (principal); Z79.01 Long term (current) use of anticoagulants; I26.99 Other pulmonary embolism without acute cor pulmonale | CPT/HCPCS: 85610; G0463 ==

== ENCOUNTER 2024-08-09 07:47 | Outpatient (RCR) | payer MEDICARE, OTHER, SELFPAY ==
[2024-08-09 10:12] VITALS: BP 124/78; PULSE 94; TEMP 36.4; O2SAT 95
[2024-08-09 10:30] LABS: Hematocrit 37.5 % (42.0-54.0); Hemoglobin 12.8 g/dL (14.0-18.0); Immature Granulocytes Abs Auto 0.03 10^3/uL (0.00-0.03); Immature Granulocytes Pct Auto 0.3 % (0.0-0.5); Lymphocytes Absolute Auto 1.9 10^3/uL (1.2-3.8); Mean Corpuscular HGB Conc 34.1 g/dL (29.9-35.2); Mean Corpuscular Hemoglobin 28.3 pg (25.9-34.0); Mean Corpuscular Volume 83.0 fL (80.0-94.0); Platelet Count 379 10^3/uL (150-450); Red Blood Count 4.52 10^6/uL (4.70-6.10); White Blood Count 12.0 10^3/uL (4.0-11.0)
[2024-08-09 10:46] LABS: Anion Gap 14.8
[2024-08-09 10:54] LABS: Alanine Aminotransferase 24 U/L (16-63); Albumin Globulin Ratio 0.8; Albumin Level 3.3 g/dL (3.4-5.0); Alkaline Phosphatase 137 U/L (46-116); Aspartate Amino Transferase 34 U/L (15-37); Blood Urea Nitrogen 17.0 mg/dL (7.0-18.0); Calcium 9.5 mg/dL (8.5-10.1); Carbon Dioxide 26.5 mmol/L (21.0-32.0); Chloride 92 mmol/L (98-107); Estimated GFR (African America >60 (>=60 mL/min/1.73m^2); Estimated GFR (Non-African Ame >60 (>=60 mL/min/1.73m^2); Globulin 4.3 g/dL; Glucose 99 mg/dL (74-106); Magnesium 1.9 mg/dL (1.8-2.4); Potassium 5.3 mmol/L (3.5-5.1); Sodium 128 mmol/L (136-145); TSH W/ REFLEX FT4 2.667 uIU/mL (0.358-3.740); Total Protein 7.6 g/dL (6.4-8.2)
== END 2024-09-06 23:59 | disposition home or self-care (01) ==
LOC: HEMC 07:47
PROVIDERS: PCP Internal Medicine Hematology & Oncology; Visit Provider Internal Medicine Hematology & Oncology
DX: Z51.11 Encounter for antineoplastic chemotherapy (principal); C34.12 Malignant neoplasm of upper lobe, left bronchus or lung; C79.72 Secondary malignant neoplasm of left adrenal gland; D64.9 Anemia, unspecified; D75.839 Thrombocytosis, unspecified; D63.8 Anemia in other chronic diseases classified elsewhere; D72.829 Elevated white blood cell count, unspecified; Z79.01 Long term (current) use of anticoagulants; I11.0 Hypertensive heart disease with heart failure; I50.20 Unspecified systolic (congestive) heart failure; Z86.711 Personal history of pulmonary embolism
CPT/HCPCS: 36415; 80053; 83735; 84443; 85025; 96413; J9271

== ENCOUNTER 2024-09-07 00:18 | Outpatient (RCR) | payer MEDICARE, OTHER, SELFPAY | END 2024-10-04 12:59 | disposition home or self-care (01) | LOC: MM 00:18 | PROVIDERS: PCP Internal Medicine Hematology & Oncology; Visit Provider Internal Medicine | DX: Z51.81 Encounter for therapeutic drug level monitoring (principal); Z79.01 Long term (current) use of anticoagulants; I26.99 Other pulmonary embolism without acute cor pulmonale | CPT/HCPCS: 85610; G0463 ==

== ENCOUNTER 2024-09-07 12:22 | Outpatient (OUT) | payer MEDICARE, OTHER, SELFPAY ==
--- OUTSIDE RECORDS SUMMARY | 2024-08-07 06:45 | XMS_ITS ---
Author Organization [facility] [place] Address [address] [place] [address] Care Team Providers Care Assistant Accounting Manager Name Role Phone Tiny Steinberg MD Primary Care Provider Unavailabl Jennifer Walden Unavailable [phone] REASON FOR VISIT Pembrolizumab (Keytruda) Encounters Encounter Location Date Provider Diagnosis [facility] Oncology [address] [place] [phone] 08/07/2024 Jennifer Garber Plan Of Treatment Next Appt Details Provider Name:Jennifer Garber , 09/18/2024 10:30:00 AM, [address] [place] [address], [phone], Provider Name:Jennifer Garber , 09/18/2024 10:45:00 AM, [address] [place] [address], [phone], Progress Notes * Jaret VELAZCO CDOB:1960 (64 yo M)Acc No.[id number]:08/07/2024 UNLOCKED PROGRESS NOTE Progress Note Patient: Carrie Jaret CHATTERJEE Provider: Patrick Garber M.D. :1960 A ge:64 Y S ex:Male Date:08/07/2024 Address:[address] [place] [address] [address], [place], [place] Pcp:Tiny Steinberg MD Subjective: * Chief Complaints: * 1 . Pembrolizumab (Keytruda). * Medical History: Objective: * Vitals: Assessment: Plan: * Treatment: * * Electronic signature of Kayla Garber MD, [phone] on 09/07/2024 at 12:28 PM EDT Sign off status: Pending Visit Status: C ANC (Cancelled) * Provider: Patrick Garber M.D. Date: 08/07/2024 Generated for Papo villavicencio/Richy/Yoliitting on: 09/07/2024 12:28 PM EDT
--- OUTSIDE RECORDS SUMMARY | 2024-08-20 05:35 | XMS_ITS ---
Author Organization [facility] in [place] Address [address] [place] [address] Care Team Providers Care Catalyst Operator Name Role Phone Tiny Steinberg MD Primary Care Provider Nacho Espinosa [phone] REASON FOR VISIT Appointment/Letter Encounters Encounter Location Date Provider Diagnosis Pulmonary Medicine [place] [address] [place] [address] 08/20/2024 Nacho Davis Plan Of Treatment Next Appt Details Provider Name:Jennifer Garber , 09/18/2024 10:30:00 AM, [address] [place] [address], [phone], Provider Name:Jennifer Garber , 09/18/2024 10:45:00 AM, [address] [place] [address], [phone], Progress Notes * Jaret VELAZCO CDOB:1960 (64 yo M)Acc No.[id number]:08/20/2024 Patient: Carrie Jaret CHATTERJEE :1960 A ge:64 Y S ex:Male Address:[address], [place] [address] * true * Date: Generated for Printi ng/Faxing/eTransmitting on: 0 09/07/2024 12:28 PM EDT
--- OUTSIDE RECORDS SUMMARY | 2024-08-22 06:00 | XMS_ITS ---
Author Organization [facility] in [place] Address [address] [place] [address] Care Team Providers Care Electronic Field Service Engineer Name Role Phone Tiny Steinberg MD Primary Care Provider UnavailNacho Escobedo Unavailable [phone] REASON FOR VISIT 3m F/U - COPD Encounters Encounter Location Date Provider Diagnosis Pulmonary Medicine [place] [address] [place] [address] 08/22/2024 Nacho Davis Plan Of Treatment Next Appt Details Provider Name:Jennifer Garber , 09/18/2024 10:30:00 AM, [address] [place] [address], [phone], Provider Name:Jennifer Stacywla , 09/18/2024 10:45:00 AM, [address] [place] [address], [phone], Progress Notes * Jaret VELAZCO CDOB:1960 (64 yo M)Acc No.[id number]:08/22/2024 UNLOCKED PROGRESS NOTE Follow Up Patient: Carrie SEN Jaret Aguilar Provider: Vashti Davis DO :1960 A ge:64 Y S ex:Male Date:08/22/2024 Address:[address], [place] Pcp:Tiny Steinberg MD Subjective: * Chief Complaints: * 1 . 3m F/U - COPD. * Medical History: Objective: * Vitals: Assessment: Plan: * Treatment: * * Electronic signature of Danica Davis DO on 09/07/2024 at 12:27 PM EDT Sign off status: Pending Visit Status: C ANC (Cancelled) * Provider: Vashti Davis DO Date: 0 08/22/2024 Generated for Papo villavicencio/Richy/Araseli on: 0 09/07/2024 12:27 PM EDT
--- OUTSIDE RECORDS SUMMARY | 2024-08-29 13:00 | XMS_ITS | Encounter Summary ---
Author Organization [facility] Address [address] [place] [address] Care Team Providers Care House Carpenter Helper Name Role Phone Chinyere Carr MD Unavailable [phone] Jennifer Garber MD Unavailable [phone] Unavailable [phone] Tiny Steinberg MD Primary Care Provider [phone] Source Comments In the event this information is protected by the Federal Confidentiality of Alcohol and Drug AbusePatient Records regulations: The Federal rules restrict any use of the information to criminally investigate or prosecute any alcohol or drug abuse patient.[facility] Reason for Visit * Reason Comments Radiotherapy On-treatment Visit Encounter Details Date Type Department Care Team (Late st Contact Info) Description 08/29/2024 1:00 PM EDT Office Visit Radiation Oncology [address] [place] [address] Cande Villagomez MD [address] [place] [address] [place] [address] 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 Last address used for calculation [address] [place] [address] [address] 04/18/2024 Sex and Gender Information Value Date Recorded Sex Assigned at Not on file Legal Sex Male 12:48 PM EDT Gender Identity Not on file Sexual Orientation Not on file documented as of this encounter Last Filed Vital Signs Vital Sign Reading Time Taken Comments Blood Pressure 134/81 08/29/2024 1:33 PM EDT Pulse 94 08/29/2024 1:33 PM EDT Temperature 36.7 C (98 F) 08/29/2024 1:33 PM EDT Respiratory Rate 18 08/29/2024 1:33 PM EDT Oxygen Saturation 99% 08/29/2024 1:33 PM EDT Inhaled Oxygen Concentration - - Weight 62.6 kg (138 lb 0.1 oz) 08/29/2024 1:33 P M EDT Height - - Body Mass Index 20.91 10/14/2022 3:50 PM EDT documented in this encounter Progress Notes * Cande Villagomez MD - 08/29/2024 3:43 PM EDT Radiation Oncology - On Treatment Review (OTR) Note PATIENT NAME: Jaret Velazco PATIENT DIAGNOSIS: Stage IB, [id number], non-small cell lung cancer (adenocarcinoma) arising from the left upper lobe of the lung with recurrence of metastatic disease. COURSE: palliative AREA TREATED: Left Hilar Lung CURRENT DOSE: 1800 cGy in 6 fx PLANNED DOSE: 3000 cGy in 10 fx AREA TREATED: Left Adrenal CURRENT DOSE: 1800 cGy in 6 fx PLANNED DOSE: 3000 cGy in 10 fx AREA TREATED: Right Pelvic Mass CURRENT DOSE: 1800 cGy in 6 fx PLANNED DOSE: 3000 cGy in 10 fx SUBJECTIVE: Denies new problems. EXAM: 08/29/24 1333 BP: 134/81 Pulse: 94 Resp: 18 Temp: 36.7 ??C (98 ??F) SpO2: 99% Weight: 62.6 kg (138 lb 0.1 oz) KPS: 90 General Appearance: Alert and oriented. No acute distress. Radiation dermatitis: No IMAGING/LAB RESULTS: None Treatment chart checked: Yes Patient treatment site reviewed and verified:Yes Port films reviewed and current:Yes Medications started: None ASSESSMENT/PLAN: Patient doing well. Chart and imaging reviewed. Continue radiation as outlined. Cande Villagomez MD documented in this encounter Plan of Treatment Upcoming Encounters Date Type Department Care Team (Late st Contact Info) Description 10/01/2024 10:00 AM EDT Office Visit Radiation Oncology [address] [place] [address] Don Ortiz MD [address] [place] [address] Final radiation follow up documented as of this encounter Visit Diagnoses Diagnosis Secondary malignancy of left adrenal gland (HCC)- Primary documented in this encounter Care Teams House Carpenter Helper Relationship Specialty Start Date End Date Tiny Steinberg MD [address] [address] PCP - General Family Medicine 07/27/24 Chinyere Carr MD [address] [place] [id number] Critical Care 08/26/22 Jennifer Garber MD [address] [place] [address] Hematology/Oncology 08/26/[address] [place] [address] Registered Dietitian Nutrition 04/18/24 documented as of this encounter
--- OUTSIDE RECORDS SUMMARY | 2024-09-07 12:27 | XMS_ITS | Encounter Summary ---
Author Organization [facility] Address [address] [place] [address] Care Team Providers Care Mini Lab Operator Name Role Phone Tiny Steinberg MD Unavailable Encounter Details Date Type Department Care Team (Late st Contact Info) Description 07/23/2024 [facility] [address] [place] [address] Unallocated, Noms Provider, [address] [place] [address] Social History Tobacco Use Types Packs/Day Years [...] on filedocumented in this encounter Care Teams Mini Lab Operator Relationship Specialty Start Date End Date Tiny Steinberg MD [address] [place], [place] [id number] PCP - ACO Reach 03/16/24 documented as of this encounter
--- OUTSIDE RECORDS SUMMARY | 2024-09-07 12:28 | XMS_ITS | Encounter Summary ---
Author Organization [facility] Address [address] [place] [address] Care Team Providers Care Room Cleaner Name Role Phone Tiny Steinberg MD Unavailable Reason for Visit * Reason Comments Med Refill Encounter Details Date Type Department Care Team (Late st Contact Info) Description 09/02/2024 Refill [facility] [address] [place] [address] Kylie Rogers, POUCH MAKING MACHINE OPERATOR [address] [place] [address] Heart failure, unspecified HF chronicity, unspecified heart failure type (HCC) Social History Tobacco Use Types Packs/Day Years [...] as of this encounter Visit Diagnoses Diagnosis Heart failure, unspecified HF chronicity, unspecified heart failure type (HCC) documented in this encounter Care Teams Room Cleaner Relationship Specialty Start Date End Date Tiny Steinberg MD [address] [place] [address] PCP - ACO Reach 03/16/24 documented as of this encounter
--- OUTSIDE RECORDS SUMMARY | 2024-09-07 12:28 | XMS_ITS ---
Author Organization [facility] Address [address] [place] [address] Care Team Providers Care Reshipping Clerk Name Role Phone Chinyere Carr MD Unavailable [phone] Unavailable [phone] Delfina Salazar MD Unavailable [phone] Jennifer Garber MD Unavailable [phone] Tiny Steinberg MD Primary Care Provider [phone] Active Problems Problem Noted Date Diagnosed Date [...] continue heparin drip. Echo was done at [facility] and results are pending. Pneumonia [...] Tobacco abuse 08/19/2022 Lung nodule 08/18/2022 Current Treatment and Therapy Plans No current plan information found. Past Treatment and Therapy Plans No past plan information found. Lifetime Dose Tracking * Chemical Lifetime Dose Automatic Entry Manual Entr y Radiation 15.4 mSv 15.4 mSv 0 mSv
--- OUTSIDE RECORDS SUMMARY | 2024-09-07 12:28 | XMS_ITS | Encounter Summary ---
Author Organization [facility] Address [address] [place] [address] Care Team Providers Care Hvac Project Engineer Name Role Phone House Sr., Wade Cole Primary Care Provider + Chinyere Carr MD Unavailable [phone] Jennifer Garber MD Unavailable Sarah [address] RD Unavailable [phone] Tiny Steinberg MD Primary Care Provider [phone] Source Comments In the event this information is protected by the Federal Confidentiality of Alcohol and Drug AbusePatient Records regulations: The Federal rules restrict any use of the information to criminally investigate or prosecute any alcohol or drug abuse patient.[facility] Encounter Details Date Type Department Care Team (Late st Contact Info) Description 04/12/2024 Lab Requisition [facility] [address] [place] [address] Mary Quinn MD, PhD [address] [place] [address] [address] [place] [address] Person encountering health services to consult on behalf of another person Social History Tobacco Use Types Packs/Day Years Used Date Smoking Tobacco: Every Day Cigarettes 1 47 Smokeless Tobacco: Never Alcohol Use Standard Drinks/Week Comments Yes 0 (1 standard drink = 0.6 oz pur e alcohol) [facility] Area Deprivation Index Answer Date Fransico rded National Score (1-100), lower number is lower ri sk 59 10/14/2022 State Score (1-10), lower number is lower risk 4 10/14/2022 Data from: https://www.neighborhoodatlas.med[facility]/. Last address used for calculation [address] 10/14/2022 Sex and Gender Information Value Date Recorded Sex Assigned at Not on file Legal Sex Male 12:48 PM EDT Gender Identity Not on file Sexual Orientation Not on file documented as of this encounter Plan of Treatment Upcoming Encounters Date Type Department Care Team (Late st Contact Info) Description 10/01/2024 10:00 AM EDT Office Visit Radiation Oncology [address] [place] [address] Don Ortiz MD [address] [place] [address] Final radiation follow up documented as of this encounter Procedures Procedure Name Priority Date/Time Associated Diagnosis Comments SURGICAL PATHOLOGY REFERENCE LAB CONSULT Routine 04/12/2024 9:01 AM EST Person encountering health services to consult on behalf of another person documented in this encounter Results * SURGICAL PATHOLOGY REFERENCE LAB CONSULT (04/12/2024 9:01 AM EST) Case Report Surgical Pathology Report Case: [id number] Authorizing Provider: Mary Quinn MD, Collected: 04/12/2024 09:01 AM PhD Ordering Location: [facility] Received: 04/12/2024 09:00 AM [facility] Pathologist: Shante Ramos MD Specimen: Block(s) and/or Slide(s), 17 SLIDES / 2 BLOCKS [id number];4,5 04/16/2024 3:51 PM EDT [facility] FINAL DIAGNOSIS [facility], [place], [place] ([id number], 03/16/2024): A. Adrenal gland, biopsy: -SMARCA2 deficient carcinoma, consistent with patient's lung primary. 04/16/2024 3:51 PM EDT [facility] at 1551 EDT Diagnosis Comment Thank [...] Napsin A: Negative TTF-1: Negative Calretinin: Negative Murdo 1: Negative PAX8: Negative GATA3 equivocal Given these morphologic features, additional immunohistochemical stains performed at the [facility] to aid in the classification of the [...] the genitourinary pathology consensus conference and Yumiko Garcia, Jay Thorne, Roula Schwartz and Clover Carpenter agree with the above interpretation. Thank you for allowing me to provide an opinion on this case. 04/16/2024 3:51 PM EDT [facility] Clinical History CONSULT REQUSTED 04/16/2024 3:51 PM EDT [facility] Performing Lab Diagnostic interpretation performed at: [facility], [address] [place] [address], [place] [address] CLIA# [id number] Eyelet Riveter: Jose Fung MD 04/16/2024 3:51 PM EDT [facility] Disclaimer Laboratory Developed Test (LDT) Disclaimer: Performance characteristics of immunohistochemical, immunofluorescent, and chromogenic in-situ hybridization tests have been determined by the performing laboratory within [facility]'s Chad Cain Pathology and Laboratory Medicine Department ([facility], [facility], [facility], [facility], [facility], [facility], or [facility]) in a manner consistent with CLIA requirements. One or more of these tests may not have been cleared or approved by the FDA. [facility] is regulated under CLIA as qualified to perform high-complexity testing. These tests are used for clinical purposes. These should not be regarded as investigational or for research. Positive and negative controls stain appropriately. 04/16/2024 3:51 PM EDT [facility] Blocks or Slides PARAFFIN EMBEDDED TISSUE BLOCK SPECIMEN / Unknown 04/12/2024 9:01 AM EST 04/12/2024 9:00 AM EST us Mary Quinn MD, PhD SURGICAL PATHOLOGY Fi nal Result Performing Organization Address City/State/[facility] Co de Phone Number [facility] [address] [place] [address], documented in this encounter Visit Diagnoses Diagnosis Person encountering health services to consult on behalf of another person Other person consulting on behalf of another person documented in this encounter Care Teams Hvac Project Engineer Relationship Specialty Start Date End Date Wade Freeman Sr., DO PCP - General Family Medicine 08/26/22 07/26/24 Tiny Steinberg MD 112 [facility] [address] [place] [address] PCP - General Family Medicine 07/27/24 Chinyere Carr MD [address] [place] [id number] Critical Care 08/26/22 Jennifer Garber MD [address] [place] [address] Hematology/Oncology 08/26/[address] [place] [address] [place] [address] Registered Dietitian Nutrition 04/18/24 documented as of this encounter
--- OUTSIDE RECORDS SUMMARY | 2024-09-07 12:28 | XMS_ITS | Encounter Summary ---
Author Organization [facility] Address [address] [place] [address] Care Team Providers Care Investigator Narcotics Name Role Phone Tiny Steinberg MD Unavailable Encounter Details Date Type Department Care Team (Late st Contact Info) Description 03/27/2024 [facility] [address] [place] [address] Unallocated, Noms Provider, [address] [place] [address] Social History Tobacco Use Types Packs/Day Years [...] on filedocumented in this encounter Care Teams Investigator Narcotics Relationship Specialty Start Date End Date Tiny Steinberg MD [address] [place] [address] PCP - ACO Reach 03/16/24 documented as of this encounter
--- OUTSIDE RECORDS SUMMARY | 2024-09-07 12:28 | XMS_ITS | Encounter Summary ---
Author Organization [facility] Address [address] [place] [address] Care Team Providers Care Filter Operator Name Role Phone Tiny Steinberg MD Unavailable Encounter Details Date Type Department Care Team (Late st Contact Info) Description 09/12/2023 Abstract [facility] [address] [facility] [address] [place] [address] Unallocated, Noms Provider, [address] [place] [address] Social History Tobacco Use Types Packs/Day Years [...] on filedocumented in this encounter Care Teams Filter Operator Relationship Specialty Start Date End Date Tiny Steinberg MD [address] [facility] [address] [place] [address] PCP - ACO Reach 03/16/24 documented as of this encounter
--- OUTSIDE RECORDS SUMMARY | 2024-09-07 12:28 | XMS_ITS | Clinical Summary ---
Author Organization [facility] Address [address] [place] [address] Care Team Providers Care Technical Maintenance Technician Name Role Phone Chinyere Carr MD Unavailable Rita Plunkett Unavailable [phone] Delfina Salazar MD Unavailable [phone] Jennifer Garber MD Unavailable [phone] Tiny Steinberg MD Primary Care Provider [phone] Allergies No known active allergies Medications metoprolol succinate XL (Toprol-XL) 50 mg 24 hr tablet Take 50 mg by mouth in the morning. 3 Active Klor-Con M10 10 mEq ER tablet [...] evening meal. Active spironolactone (Aldactone) 25 mg tabletIndications:P ulmonary embolism without acute cor pulmonale, unspecified chronicity, unspecified pulmonary embolism type (CMS/HCC),Pneumonia of left lower lobe due to infectious organism,Adrenal mass,Alcohol abuse,Tobacco use,Primary adenocarcinoma of left lung (CMS/HCC) Take 0.5 tablets (12.5 mg) by mouth in the morning. 15 tablet 3 5 Active amLODIPine (Norvasc) 5 mg tabletIndications:P rimary hypertension Take 1 tablet (5 mg) by mouth in the morning. 30 tablet 3 5 Active nicotine (Nicoderm CQ) 14 mg/24 hr patchIndications:Al cohol abuse Place 1 patch on the skin if needed each day (smoking). 14 patch 2 5 Active warfarin (Coumadin) 5 mg tabletIndications:P ulmonary embolism without acute cor pulmonale, unspecified chronicity, unspecified pulmonary embolism type (CMS/HCC) 5mg by mouth once daily. 14 tablet 5 Active Active Problems Problem Noted Date Diagnosed [...] continue heparin drip. Echo was done at [facility] and results are pending. Pneumonia of left [...] Assessment & Plan (03/13/2024 11:57 PM EST): [facility] protocol Alcohol withdrawal syndrome 09/01/2023 Elevated liver enzymes 09/01/2023 Hyperosmolar hyponatremia 09/01/2023 Hypokalemia due to loss of potassium 09/01/2023 Syncope due to sick sinus syndrome 09/01/2023 Elevated blood pressure read ing in office with diagnosis of hypertension 09/01/2023 Metabolic acidosis in 09/01/2023 Primary adenocarcinoma of left lung 08/19/2022 Tobacco abuse 08/19/2022 Lung nodule 08/18/2022 Encounters Date Type Department Care Team Description 07/23/2024 Abstract [facility] [address] [place] [address] Chinyere Carr MD from Last 3 Months Social History Tobacco Use Types Packs/Day Years Used Date Smoking Tobacco: Every Day Cigarettes 1 40 Smokeless Tobacco: Never Tobacco Cessation:Ready to Q uit: Not Asked; Counseling Given: Not Answered Alcohol Use Standard Drinks/Week Comments Not Currently 42 (1 standard drink = 0.6 oz pu re alcohol) [facility] Utilities Answer Date Recorded In the past 12 months has th e [employer], gas, oil, or water [employer] threatened to shut off services in your [...] any time in the past [address] [facility], were you homeless or living in a halfway (including now)? No 03/13/2024 Hunger Vital Sign Answer Date Recorded Within the past 12 months, y ou worried that your food would run out before you got the money to buy more. Never true 03/13/19 25 Ran Out of Food in the Last Year Not on file 03/13/2024 Sex and Gender Information Value Date Recorded Sex Assigned at Male 09/06/2022 10:18 AM EDT Legal Sex Male 1:25 PM EDT Gender Identity Male 09/06/2022 10:18 AM [...] Care Team (Late st Contact Info) Description 09/07/2024 1:20 PM EDT Office Visit [facility] [address] [place] [address] Ollie Marcelo, CARD GRINDER HELPER [address] [place] [address] Health Maintenance Due Date Last Done Comments CT Colonography 1960 Colonoscopy 1960 FIT-DNA 1960 FIT 1960 Medicare Annual Wellness (AWV) 1960 Sigmoidoscopy 1960 Depression Screening 1970 Pneumococcal Vaccine: 50+ Years (1 of 2 - PCV) 1977 Adult Tetanus 1980 Zoster Vaccines (1 of 2) 2008 COVID-19 Vaccine (3 - 2023-2 5 season) 2023 10/27/2020, 09/24/2020 Influenza Vaccine (#1) 2024 Colorectal Cancer Screening 03/16/2025 FOBT 03/16/2025 [...] Negative, None Detected 03/16/2024 6:47 AM EST [facility] ([facility]) Stool Rectal contents / Unknown Non-blood Collection / Unknown 03/16/2024 12:22 AM EST 03/16/2024 12:37 AM EST us Eduardo Cantu MD LAB BODY FLUIDS AND STOOLS OR DERABLES Final Result [facility] ([facility]) [address] [place] [address] from Last 3 Months or Most Recently Relevant to Health Maintenance Insurance MEDICARE [employer] [facility] Advance Directives * DNR CC-A (Latest Code Status on File) Date Activated Date Inactivated Comments 03/14/2024 4:17 AM 03/21/2024 6:00 PM Question Answer Comments Select If Any Apply: No Intubation * Full Code Date Activated Date Inactivated Comments 03/13/2024 11:12 PM 03/14/2024 4:17 AM Care Teams Technical Maintenance Technician Relationship Specialty Start Date End Date Tiny Steinberg MD [address] [facility] [address] [place] [address] PCP - General Internal Medicine 04/09/24 Chinyere Carr MD [address] [place] [address] Surgeon Pulmonary Disease 08/18/22 Rita Plunkett [address] [place] [address] Radiation Oncology 08/18/22 Delfina Salazar MD [address] [facility] [place] [address] Thoracic Diseases 08/31/22 Jennifer Garber MD [address] [place] [address] Oncology 03/21/24
--- OUTSIDE RECORDS SUMMARY | 2024-09-07 12:28 | XMS_ITS | Clinical Summary ---
Author Organization [facility] Healthcare Address [address] [place] [address] Care Team Providers Care White Sugar Syrup Operator Name Role Phone Tiny Steinberg MD Unavailable Allergies No known active allergies Medications spironolactone (Aldactone) 25 MG tabletIndication s:Lung nodule Take 1 tablet (25 mg) by mouth Daily 100 tablet 3 09/01/19 24 Active omeprazole (PriLOSEC) [address] capsuleIndicatio ns:Elevated liver enzymes Take 1 capsule (20 mg) by mouth Daily 100 capsule 3 09/01/19 24 Active furosemide (Lasix) 40 MG tabletIndication s:Hyperosmolar hyponatremia Take 1 tablet (40 mg) by mouth Daily 90 tablet 2 09/07/19 24 Active potassium chloride CR (Klor-Con M10) 10 MEQ ER tabletIndication s:Hypokalemia Take 1 tablet (10 mEq) by mouth in the morning and 1 tablet (10 mEq) in the evening and 1 tablet (10 mEq) before bedtime. Do not crush or chew.. 270 tablet 3 09/20/19 24 025 Active warfarin (Coumadin) 5 MG tablet Take [...] evening. Take with meals. 300 tablet 2 07/04/19 25 Active magnesium oxide (Mag-Ox) 400 (240 Mg) MG tabletIndication s:Heart failure, unspecified HF chronicity, unspecified heart failure type (HCC) TAKE 1 TABLET BY MOUTH IN THE MORNING, EVENING, AND BEFORE BEDTIME 270 tablet 3 09/04/19 25 Active amLODIPine (Norvasc) 5 MG tabletIndication s:Heart failure, unspecified HF chronicity, unspecified heart failure type (HCC),Elevated blood pressure reading in office with diagnosis of hypertension Take 1 tablet (5 mg) by mouth Daily 100 tablet 3 09/08/19 25 Active metoprolol succinate XL (Toprol-XL) 50 MG 24 hr tabletIndication s:Heart failure, unspecified HF chronicity, unspecified heart failure type (HCC),Elevated blood pressure reading in office with diagnosis of hypertension Take 1 tablet (50 mg) by mouth Daily 100 tablet 3 09/08/19 25 Active metoprolol succinate XL (Toprol-XL) 50 MG 24 hr tablet Take 50 mg by mouth Daily 025 Discontinued(Re order) magnesium oxide (Mag-Ox) 400 (240 Mg) MG tabletIndication s:Heart failure, unspecified HF chronicity, unspecified heart failure type (HCC) Take 1 tablet (400 mg) by mouth in the morning and 1 tablet (400 mg) in the evening and 1 tablet (400 mg) before bedtime. 90 tablet 11 11/16/19 24 025 Discontinued amLODIPine (Norvasc) 5 MG tablet Take 5 mg by mouth 03/21/19 25 025 Discontinued(Re order) Active Problems Problem Noted Date Diagnosed Date [...] Encounters Date Type Department Care Team Description 09/07/2024 Refill [facility] [address] [place] [address] Kylie Rogers, SEISMOLOGY TECHNICAL OFFICER Heart failure, unspecified HF chronicity, unspecified heart failure type (HCC); Elevated blood pressure reading in office with diagnosis of hypertension 09/02/2024 Refill [facility] [address] [place] [address] Kylie Rogers, SEISMOLOGY TECHNICAL OFFICER Heart failure, unspecified HF chronicity, unspecified heart failure type (HCC) 07/30/2024 Telephone [facility] [address] [facility] 110 [place] [address] Unallocated, Amandas MD Tunde 07/23/2024 Abstract [facility] [address] [facility] [address] [place] [address] Unallocated, Noms ProviderMD 07/03/2024 Refill [facility] [address] [facility] [address] [place] [address] Diana Greman LPN Vitamin D deficiency 06/27/2024 Abstract [facility] [address] [facility] [address] [place] [address] Unallocated, Amandas MD Tunde 06/11/2024 Abstract [facility] [address] [facility] [address] [place] [address] Unallocated, Noms MD Tunde from Last 3 Months Family History Medical [...] of 2 - PCV) 978 Influenza Vaccine (#1) 2024 Colorectal Cancer Screening 03/16/2025 FOBT 03/16/2025 03/16/2024 Insurance [facility] MEDIC[facility] Care Teams White Sugar Syrup Operator Relationship Specialty Start Date End Date Tiny Steinberg MD [address] [facility] 110 [place] [address] PCP - ACO Reach 03/16/24
--- OUTSIDE RECORDS SUMMARY | 2024-09-07 12:28 | XMS_ITS | Encounter Summary ---
Author Organization [facility] Address [address] [facility] [place] [address] Care Team Providers Care Compensation Agent Name Role Phone Tiny Steinberg MD Unavailable Encounter Details Date Type Department Care Team (Late st Contact Info) Description 05/24/2024 Abstract [facility] [address] [place] [place] [address] Unallocated, Noms Provider, [address] [place] [address] Social History Tobacco Use Types Packs/Day Years [...] on filedocumented in this encounter Care Teams Compensation Agent Relationship Specialty Start Date End Date Tiny Steinberg MD [address] [place], [place] [id number] PCP - ACO Reach 03/16/24 documented as of this encounter
--- OUTSIDE RECORDS SUMMARY | 2024-09-07 12:28 | XMS_ITS | Encounter Summary ---
Author Organization [facility] Address [address] [place] [address] Care Team Providers Care Gas Leak Tester Name Role Phone Tiny Steinberg MD Unavailable Encounter Details Date Type Department Care Team (Late st Contact Info) Description 09/12/2023 Abstract [facility] [address] [facility] 110 [place] [address] Unallocated, Noms Provider, [address] [place] [address] Social History Tobacco Use Types Packs/Day Years [...] on filedocumented in this encounter Care Teams Gas Leak Tester Relationship Specialty Start Date End Date Tiny Steinberg MD [address] [facility] 110 [place] [address] PCP - ACO Reach 03/16/24 documented as of this encounter
--- OUTSIDE RECORDS SUMMARY | 2024-09-07 12:28 | XMS_ITS | Encounter Summary ---
Author Organization [facility] Address [address] [facility] [place] [address] Care Team Providers Care Recruitment Consultant Name Role Phone Tiny Steinberg MD Unavailable Encounter Details Date Type Department Care Team (Late st Contact Info) Description 06/27/2024 Abstract [facility] [address] [place] [address] Unallocated, Noms Provider, [address] [place] [address] Social History Tobacco Use Types Packs/Day Years [...] on filedocumented in this encounter Care Teams Recruitment Consultant Relationship Specialty Start Date End Date Tiny Steinberg MD [address] [place], [place] [id number] PCP - ACO Reach 03/16/24 documented as of this encounter
--- OUTSIDE RECORDS SUMMARY | 2024-09-07 12:28 | XMS_ITS | Encounter Summary ---
Author Organization [facility] Address [facility] [place] [address] Care Team Providers Care Paper Reeler Name Role Phone House Sr., Wade BULL Primary Care Provider + Chinyere Carr MD Unavailable [phone] Jennifer Garber MD Unavailable [phone] Unavailable [phone] Tiny Steinberg MD Primary Care Provider [phone] Source Comments In the event this information is protected by the Federal Confidentiality of Alcohol and Drug AbusePatient Records regulations: The Federal rules restrict any use of the information to criminally investigate or prosecute any alcohol or drug abuse patient.[facility] Encounter Details Date Type Department Care Team [...] risk 4 10/14/2022 Data from: https://www.neighborhoodatlas.[facility]/. Last address used for calculation [address] [facility] [address] 10/14/2022 Sex and Gender Information Value Date Recorded Sex Assigned at Not on file Legal Sex Male 12:48 PM EDT Gender Identity Not on file Sexual Orientation Not on file documented as of this encounter Plan of Treatment Upcoming Encounters Date Type Department Care Team (Late st Contact Info) Description 10/01/2024 10:00 AM EDT Office Visit Radiation Oncology [address] [facility] [place] [address] Don Ortiz MD [address] [place] [address] Final radiation follow up documented as of this encounter Visit Diagnoses Not on filedocumented in this encounter Care Teams Paper Reeler Relationship Specialty Start Date End Date Wade Freeman Sr., DO PCP - General Family Medicine 08/26/22 07/26/24 Tiny Steinberg MD [address] [facility] 110 [place] [address] PCP - General Family Medicine 07/27/24 Chinyere Carr MD [address] [place] [address] Critical Care 08/26/22 Jennifer Garber MD [address] [place] [address] Hematology/Oncology 08/26/[address] [facility] [place] [address] Registered Dietitian Nutrition 04/18/24 documented as of this encounter
--- OUTSIDE RECORDS SUMMARY | 2024-09-07 12:28 | XMS_ITS | Encounter Summary ---
Author Organization [facility] Address [address] [place] [address] Care Team Providers Care Customer Training Specialist Name Role Phone Tiny Steinberg MD Unavailable Encounter Details Date Type Department Care Team (Late st Contact Info) Description 08/31/2023 Abstract [facility] [address] [facility] 110 [place] [address] Unallocated, Noms Provider, [address] [place] [address] Social History Tobacco Use Types Packs/Day Years [...] on filedocumented in this encounter Care Teams Customer Training Specialist Relationship Specialty Start Date End Date Tiny Steinberg MD [address] [facility] 110 [place] [address] PCP - ACO Reach 03/16/24 documented as of this encounter
--- OUTSIDE RECORDS SUMMARY | 2024-09-07 12:28 | XMS_ITS | Encounter Summary ---
Author Organization [facility] Address [address] [place] [address] Care Team Providers Care Pipefitter Helper Name Role Phone Tiny Steinberg MD Unavailable Encounter Details Date Type Department Care Team (Late st Contact Info) Description 08/31/2023 Abstract [facility] [address] [facility] 110 [place] [address] Unallocated, Noms Provider, [address] [place] [address] Social History Tobacco Use Types Packs/Day Years [...] on filedocumented in this encounter Care Teams Pipefitter Helper Relationship Specialty Start Date End Date Tiny Steinberg MD [address] [facility] 110 [place] [address] PCP - ACO Reach 03/16/24 documented as of this encounter
--- OUTSIDE RECORDS SUMMARY | 2024-09-07 12:28 | XMS_ITS | Clinical Summary ---
Author Organization [facility] Address 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) 08/22/2024 11:00 AM EDT Office Visit Radiation Oncology [address] [facility] [place] [address] Cande Villagomez MD 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); 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) 08/22/2024 Travel 08/08/2024 Clinical [place] [address] Provider, Ccf 08/07/2024 10:45 AM EDT Nurse Visit Radiation Oncology [address] [facility] [place] [address] Nurse Antonia Radt 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); 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) 08/07/2024 Radiation Oncology Note Radiation Oncology [address] [facility] [place] [address] Cande Villagomez MD Treatment Planning 08/07/2024 Radiation Oncology Note Radiation Oncology [address] [place] [address] [place] [address] Don Ortiz MD Simulation Note 08/06/2024 Telephone Radiation Oncology [address] [place] [address] [place] [address] Don Ortiz MD Patient Update; Appointment 07/27/2024 1:00 PM EDT Office Visit Radiation Oncology [address] [place] [address] [place] [address] Don Ortiz MD 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); Neoplasm of lung; 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) 07/27/2024 Education Radiation Oncology [address] [place] [address] [place] [address] Cathy Cantu, CE Patient Education 07/27/2024 Telephone Radiation Oncology [address] [place] [address] [place] [address] Don Ortiz MD Future Appointment 07/27/2024 Travel 07/18/2024 Telephone Radiation Oncology [address] [place] [address] [place] [address] Don Ortiz MD Appointment from Last 3 Months Family History Medical [...] is lower risk 4 04/18/2024 Data from: https://www.neighborhoodatlas.medicine.[facility]/. Last address used for calculation [address] [place] [address] [address] 04/18/2024 Sex and Gender Information [...] oz) 08/29/2024 1:33 P M EDT Height 173 cm (5' 8.11 ) 10/14/2022 3:50 PM EDT Body Mass Index 20.91 10/14/2022 3:50 PM EDT Plan of Treatment Upcoming Encounters Date Type Department Care Team (Late st Contact Info) Description 10/01/2024 10:00 AM EDT Office Visit Radiation Oncology [address] [facility] [place] [address] Don Ortiz MD [address] [facility] [place] [address] Final radiation follow up Health Maintenance Due Date Last Done Comments Abdominal Aortic Aneurysm Screening 1958 Anxiety Screening 1976 Depression Screening 1976 Hepatitis C Screening 1976 DTaP,Tdap,Td Vaccine (1 - Tdap) 1977 Pneumococcal Vaccine: 50+ (1 of 2 - PCV) [address] Colonography 07/22/2003 Cologuard (FIT-DNA) 07/22/2003 Colonoscopy 07/22/2003 Prostate Cancer Screening Discussion 07/22/2003 Sigmoidoscopy 07/22/2003 Shingrix Vaccine (1 of 2) 2008 Medicare Annual Wellness Visit 07/09/2023 Advance Directive Discussion 02/08/2024 Influenza Vaccine (#1) 2024 Colorectal Cancer Screening 03/16/2025 Fecal Occult Blood 03/16/2025 03/16/2024 Diabetes Screening 03/21/2027 03/21/2024, 0 03/20/2024, 03/19/2024, Additional history exists RSV Vaccine (1 - 1-dose 75+ series) 2033 Procedures Procedure Name Priority Date/Time Associated Diagnosis Comments EXTERNAL IMAGING 07/17/2024 2:45 PM EDT EXTERNAL LAB 07/17/2024 2:45 PM EDT EXTERNAL LAB 07/17/2024 2:[address] OUTSIDE CD DICOM IMPORT 07/09/2024 from Last 3 Months Results * EXTERNAL IMAGING (07/17/2024 2:45 PM EDT) Anatomical Region Laterality Modality Other us External Provider PA-C RADIOLOGY Final Res ult * EXTERNAL LAB (07/17/2024 2:45 PM EDT) Only the most recent of2 resultswithin the time period is included. us External Provider PA-C LABORATORY Final Res ult * OT-PET SKULL TO MID THIGH IMPORT (07/09/2024) Anatomical Region Laterality Modality Other 07/09/2024 Narrative 07/18/2024 8:35 AM EDT Images were obtained outside of [facility] Procedure Note Provider, [facility] [place] - 06/11/2025 Images were obtained outside of [facility]cf Provider RADIOLOGY Final Result from Last 3 Months Insurance MEDICARE [facility] Care Teams Director Of Rooms Relationship Specialty Start Date End Date Tiny Steinberg MD [address] [facility] 110 [place] [address] PCP - General Family Medicine 07/27/24 Chinyere Carr MD [address] [place] [address] Critical Care 08/26/22 Jennifer Garber MD [address] [place] [address] Hematology/Oncology 08/26/[address] [place] [address] [place] [address] Registered Dietitian Nutrition 04/18/24
--- OUTSIDE RECORDS SUMMARY | 2024-09-07 12:28 | XMS_ITS | Encounter Summary ---
Author Organization [facility] Address [address] [facility] [place] [address] Care Team Providers Care Commercial Manager Name Role Phone Tiny Steinberg MD Unavailable Encounter Details Date Type Department Care Team (Late st Contact Info) Description 06/11/2024 Abstract [facility] [address] [place] [address] Unallocated, Noms Provider, [address] [place] [address] Social History Tobacco Use Types Packs/Day Years [...] on filedocumented in this encounter Care Teams Commercial Manager Relationship Specialty Start Date End Date Tiny Steinberg MD [address] [place], [place] [id number] PCP - ACO Reach 03/16/24 documented as of this encounter
--- OUTSIDE RECORDS SUMMARY | 2024-09-07 12:29 | XMS_ITS | Encounter Summary ---
Author Organization [facility] Address [address] [facility] [place] [address] Care Team Providers Care Supervisor Rice Milling Name Role Phone Tiny Steinberg MD Unavailable Encounter Details Date Type Department Care Team (Late st Contact Info) Description 08/10/2023 Abstract [facility] [address] [place] [address] Tiny Steinberg MD [address] [place], [place] [id number] Social History Tobacco Use Types Packs/Day Years [...] on filedocumented in this encounter Care Teams Supervisor Rice Milling Relationship Specialty Start Date End Date Tiny Steinberg MD [address] [facility] 110 [place] [address] PCP - ACO Reach 03/16/24 documented as of this encounter
--- OUTSIDE RECORDS SUMMARY | 2024-09-07 12:29 | XMS_ITS | Encounter Summary ---
Author Organization [facility] Address [facility] [place] [address] Care Team Providers Care Supervisor Color Making Name Role Phone House Sr., Wade BULL Primary Care Provider + Chinyere Carr MD Unavailable [phone] Jennifer Garber MD Unavailable [phone] Unavailable [phone] Tiny Steinberg MD Primary Care Provider [phone] Source Comments In the event this information is protected by the Federal Confidentiality of Alcohol and Drug AbusePatient Records regulations: The Federal rules restrict any use of the information to criminally investigate or prosecute any alcohol or drug abuse patient.[facility] Encounter Details Date Type Department Care [...] is lower risk 4 10/14/2022 Data from: https://www.neighborhoodatlas.[facility]/. Last address used for calculation [address] [facility] [address] 10/14/2022 Sex and Gender Information Value Date Recorded Sex Assigned at Not on file Legal Sex Male 12:48 PM EDT Gender Identity Not on file Sexual Orientation Not on file documented as of this encounter Plan of Treatment Upcoming Encounters Date Type Department Care Team (Late st Contact Info) Description 10/01/2024 10:00 AM EDT Office Visit Radiation Oncology [address] [place] [address] Don Ortzi MD [address] [facility] [place] [address] Final radiation follow up documented as of this encounter Visit Diagnoses Not on filedocumented in this encounter Care Teams Supervisor Color Making Relationship Specialty Start Date End Date Wade Freeman Sr., DO PCP - General Family Medicine 08/26/22 07/26/24 Tiny Steinberg MD [address] [facility] 110 [place] [address] PCP - General Family Medicine 07/27/24 Chinyere Carr MD [address] [place] [address] Critical Care 08/26/22 Jennifer Garber MD [address] [place] [address] Hematology/Oncology 08/26/[address] [facility] [place] [address] Registered Dietitian Nutrition 04/18/24 documented as of this encounter
--- OUTSIDE RECORDS SUMMARY | 2024-09-07 12:29 | XMS_ITS | Patient Health Record ---
Author Organization [facility] [place] Address [address] [place] [address] Care Team Providers Care Terrazzo Installer Name Role Phone Tiny Steinberg MD Primary Care Provider Rozina Munoz Unavailable [phone] Nacho Davis Unavailable [phone] Allergies No Known Allergies Results Component Value Reference Range Notes CRP (Not yet reviewed by pro vider) Interpretation: Performing Lab: Notes/Report: [facility] , C Reactive Protein 2.13 <=0.50 mg/dL Performing Lab: see note ML - [facility] LB IRON AND TIBC (Not yet revie wed by provider) Interpretation: Performing Lab: Notes/Report: [facility] , Iron 32.0 65.0-175.0 ug/dL Total Iron Binding Capacity 153.0 250.0-450.0 ug/dL Percent Iron Saturation 20.9 Performing Lab: see note ML - [facility] LB PROF 14(COMP METB) (Not yet reviewed by provider) Interpretation: Performing Lab: Notes/Report: [facility] , Sodium 129 136-145 mmol/L Potassium 4.5 3.5-5.1 mmol/L Chloride 98 98-107 mmol/L Carbon Dioxide 24.6 21.0-32.0 mmol/L Anion Gap 10.9 Glucose 108 74-106 mg/dL Blood Urea Nitrogen 6.0 7.0-18.0 mg/dL Creatinine 1.23 0.70-1.30 mg/dL Estimated GFR ( Agatha >60 >=60 mL/min/1.73m 2 Estimated GFR (Non- Carmen 59 >=60 mL/min/1.73m 2 BUN Creatinine Ratio 4.9 Calcium 8.8 8.5-10.1 mg/dL Bilirubin Total 0.5 0.2-1.0 mg/dL Aspartate Amino Transferase 41 15-37 U/L Alanine Aminotransferase 24 16-63 U/L Alkaline Phosphatase 157 46-116 U/L Total Protein 7.4 6.4-8.2 g/dL Albumin Level 2.1 3.4-5.0 g/dL Globulin 5.3 Albumin Globulin Ratio 0.4 Performing Lab: see note - [facility] LB Vitamin B12 (Not yet reviewe d by provider) Interpretation: Performing Lab: Notes/Report: [facility] , Vitamin B12 [phone] pg/mL Performed at: [facility] Hot Top Liner: Orlin Cunningham PhD, Phone: [phone] [address] [place], [place] [phone] Performing Lab: see note - [facility] LB CBC AUTO DIFF (Not yet revie wed by provider) Interpretation: Performing Lab: Notes/Report: [facility] , White Blood Count 11.0 4.0-11.0 10 3/uL Red Blood Count 4.29 4.70-6.10 10 6/uL Hemoglobin 12.4 14.0-18.0 g/dL Hematocrit 38.9 42.0-54.0 % Mean Corpuscular Volume 90.7 80.0-94.0 fL Mean Corpuscular Hemoglobin 28.9 25.9-34.0 pg Mean Corpuscular HGB Conc 31.9 29.9-35.2 g/dL Red Cell Distribution Width 15.8 11.0-15.0 % Platelet Count 474 150-450 10 3/uL Mean Platelet Volume 9.0 9.5-13.5 fL Neutrophils Percent Auto 67.4 43.0-75.0 % Lymphocytes Percent Auto 23.8 20.5-60.0 % Monocytes Percent Auto 6.8 1.7-12.0 % Eosinophils Percent Auto 0.8 0.9-7.0 % Basophils Percent Auto 0.7 0.2-2.0 % Immature Granulocytes Pct Auto 0.5 0.0-0.5 % Neutrophils Absolute Auto 7.4 1.4-6.5 10 3/uL Lymphocytes Absolute Auto 2.6 1.2-3.8 10 3/uL Monocytes Absolute Auto 0.8 0.3-0.8 10 3/uL Eosinophils Absolute Auto 0.1 0.0-0.7 10 3/uL Basophils Absolute Auto 0.1 0.0-0.1 10 3/uL Immature Granulocytes Abs Auto 0.06 0.00-0.03 10 3/uL Performing Lab: see note ML - [facility] LB IRON AND TIBC (Not yet revie wed by provider) Interpretation: Performing Lab: Notes/Report: [facility] , Iron 46.0 65.0-175.0 ug/dL Total Iron Binding Capacity 160.0 250.0-450.0 ug/dL Percent Iron Saturation 28.8 Performing Lab: see note ML - [facility] LB CBC AUTO DIFF (Not yet revie wed by provider) Interpretation: Performing Lab: Notes/Report: [facility] , White Blood Count 9.5 4.0-11.0 10 3/uL Red Blood Count 4.09 4.70-6.10 10 6/uL Hemoglobin 11.7 14.0-18.0 g/dL Hematocrit 36.3 42.0-54.0 % Mean Corpuscular Volume 88.8 80.0-94.0 fL Mean Corpuscular Hemoglobin 28.6 25.9-34.0 pg Mean Corpuscular HGB Conc 32.2 29.9-35.2 g/dL Red Cell Distribution Width 14.5 11.0-15.0 % Platelet Count 310 150-450 10 3/uL Mean Platelet Volume 9.1 9.5-13.5 fL Neutrophils Percent Auto 64.4 43.0-75.0 % Lymphocytes Percent Auto 23.8 20.5-60.0 % Monocytes Percent Auto 8.2 1.7-12.0 % Eosinophils Percent Auto 2.9 0.9-7.0 % Basophils Percent Auto 0.4 0.2-2.0 % Immature Granulocytes Pct Auto 0.3 0.0-0.5 % Neutrophils Absolute Auto 6.1 1.4-6.5 10 3/uL Lymphocytes Absolute Auto 2.3 1.2-3.8 10 3/uL Monocytes Absolute Auto 0.8 0.3-0.8 10 3/uL Eosinophils Absolute Auto 0.3 0.0-0.7 10 3/uL Basophils Absolute Auto 0.0 0.0-0.1 10 3/uL Immature Granulocytes Abs Auto 0.03 0.00-0.03 10 3/uL Performing Lab: see note ML - [facility] LB CRP (Not yet reviewed by pro vider) Interpretation: Performing Lab: Notes/Report: [facility] , C Reactive Protein 1.41 <=0.50 mg/dL Performing Lab: see note ML - [facility] LB CBC AUTO DIFF (Not yet revie wed by provider) Interpretation: Performing Lab: Notes/Report: [facility] , White Blood Count 12.6 4.0-11.0 10 3/uL Red Blood Count 4.79 4.70-6.10 10 6/uL Hemoglobin 13.4 14.0-18.0 g/dL Hematocrit 39.6 42.0-54.0 % Mean Corpuscular Volume 82.7 80.0-94.0 fL Mean Corpuscular Hemoglobin 28.0 25.9-34.0 pg Mean Corpuscular HGB Conc 33.8 29.9-35.2 g/dL Red Cell Distribution Width 13.9 11.0-15.0 % Platelet Count 408 150-450 10 3/uL Mean Platelet Volume 8.7 9.5-13.5 fL Neutrophils Percent Auto 64.6 43.0-75.0 % Lymphocytes Percent Auto 20.8 20.5-60.0 % Monocytes Percent Auto 11.3 1.7-12.0 % Eosinophils Percent Auto 1.8 0.9-7.0 % Basophils Percent Auto 0.6 0.2-2.0 % Immature Granulocytes Pct Auto 0.9 0.0-0.5 % Neutrophils Absolute Auto 8.2 1.4-6.5 10 3/uL Lymphocytes Absolute Auto 2.6 1.2-3.8 10 3/uL Monocytes Absolute Auto 1.4 0.3-0.8 10 3/uL Eosinophils Absolute Auto 0.2 0.0-0.7 10 3/uL Basophils Absolute Auto 0.1 0.0-0.1 10 3/uL Immature Granulocytes Abs Auto 0.11 0.00-0.03 10 3/uL Performing Lab: see note ML - [facility] LB MAGNESIUM (Not yet reviewed by provider) Interpretation: Performing Lab: Notes/Report: [facility] , Magnesium 1.8 1.8-2.4 mg/dL Performing Lab: see note ML - [facility] LB PROF 14(COMP METB) (Not yet reviewed by provider) Interpretation: Performing Lab: Notes/Report: [facility] , Sodium 129 136-145 mmol/L Potassium 4.8 3.5-5.1 mmol/L Chloride 94 98-107 mmol/L Carbon Dioxide 24.7 21.0-32.0 mmol/L Anion Gap 15.1 Glucose 85 74-106 mg/dL Blood Urea Nitrogen 18.0 7.0-18.0 mg/dL Creatinine 1.26 0.70-1.30 mg/dL Estimated GFR ( Agatha >60 >=60 mL/min/1.73m 2 Estimated GFR (Non- Carmen 57 >=60 mL/min/1.73m 2 BUN Creatinine Ratio 14.3 Calcium 10.0 8.5-10.1 mg/dL Bilirubin Total 0.3 0.2-1.0 mg/dL Aspartate Amino Transferase 33 15-37 U/L Alanine Aminotransferase 35 16-63 U/L Alkaline Phosphatase 153 46-116 U/L Total Protein 7.9 6.4-8.2 g/dL Albumin Level 3.1 3.4-5.0 g/dL Globulin 4.8 Albumin Globulin Ratio 0.6 Performing Lab: see note ML - [facility] LB TSH W/ REFLEX FT4 (Not yet r eviewed by provider) Interpretation: Performing Lab: Notes/Report: [facility] , TSH W/ REFLEX FT4 1.583 0.358-3.740 uIU/mL Performing Lab: see note ML - [facility] LB MAGNESIUM (Not yet reviewed by provider) Interpretation: Performing Lab: Notes/Report: [facility] , Magnesium 1.7 1.8-2.4 mg/dL Performing Lab: see note ML - [facility] LB PROF 14(COMP METB) (Not yet reviewed by provider) Interpretation: Performing Lab: Notes/Report: [facility] , Sodium 129 136-145 mmol/L Potassium 4.6 3.5-5.1 mmol/L Chloride 94 98-107 mmol/L Carbon Dioxide 23.8 21.0-32.0 mmol/L Anion Gap 15.8 Glucose 101 74-106 mg/dL Blood Urea Nitrogen 25.0 7.0-18.0 mg/dL Creatinine 1.02 0.70-1.30 mg/dL Estimated GFR ( Agatha >60 >=60 mL/min/1.73m 2 Estimated GFR (Non- Carmen >60 >=60 mL/min/1.73m 2 BUN Creatinine Ratio 24.5 Calcium 9.8 8.5-10.1 mg/dL Bilirubin Total 0.4 0.2-1.0 mg/dL Aspartate Amino Transferase 28 15-37 U/L Alanine Aminotransferase 29 16-63 U/L Alkaline Phosphatase 150 46-116 U/L Total Protein 7.6 6.4-8.2 g/dL Albumin Level 3.1 3.4-5.0 g/dL Globulin 4.5 Albumin Globulin Ratio 0.7 Performing Lab: see note ML - [facility] LB TSH W/ REFLEX FT4 (Not yet r eviewed by provider) Interpretation: Performing Lab: Notes/Report: [facility] , TSH W/ REFLEX FT4 1.725 0.358-3.740 uIU/mL Performing Lab: see note ML - [facility] LB CBC AUTO DIFF (Not yet revie wed by provider) Interpretation: Performing Lab: Notes/Report: [facility] , White Blood Count 12.0 4.0-11.0 10 3/uL Red Blood Count 4.52 4.70-6.10 10 6/uL Hemoglobin 12.8 14.0-18.0 g/dL Hematocrit 37.5 42.0-54.0 % Mean Corpuscular Volume 83.0 80.0-94.0 fL Mean Corpuscular Hemoglobin 28.3 25.9-34.0 pg Mean Corpuscular HGB Conc 34.1 29.9-35.2 g/dL Red Cell Distribution Width 16.5 11.0-15.0 % Platelet Count 379 150-450 10 3/uL Mean Platelet Volume 8.1 9.5-13.5 fL Neutrophils Percent Auto 72.0 43.0-75.0 % Lymphocytes Percent Auto 16.1 20.5-60.0 % Monocytes Percent Auto 9.4 1.7-12.0 % Eosinophils Percent Auto 1.8 0.9-7.0 % Basophils Percent Auto 0.4 0.2-2.0 % Immature Granulocytes Pct Auto 0.3 0.0-0.5 % Neutrophils Absolute Auto 8.6 1.4-6.5 10 3/uL Lymphocytes Absolute Auto 1.9 1.2-3.8 10 3/uL Monocytes Absolute Auto 1.1 0.3-0.8 10 3/uL Eosinophils Absolute Auto 0.2 0.0-0.7 10 3/uL Basophils Absolute Auto 0.1 0.0-0.1 10 3/uL Immature Granulocytes Abs Auto 0.03 0.00-0.03 10 3/uL Performing Lab: see note ML - [facility] LB PROF 14(COMP METB) (Not yet reviewed by provider) Interpretation: Performing Lab: Notes/Report: [facility] , Sodium 128 136-145 mmol/L Potassium 5.3 3.5-5.1 mmol/L Chloride 92 98-107 mmol/L Carbon Dioxide 26.5 21.0-32.0 mmol/L Anion Gap 14.8 Glucose 99 74-106 mg/dL Blood Urea Nitrogen 17.0 7.0-18.0 mg/dL Creatinine 1.12 0.70-1.30 mg/dL Estimated GFR ( Agatha >60 >=60 mL/min/1.73m 2 Estimated GFR (Non- Carmen >60 >=60 mL/min/1.73m 2 BUN Creatinine Ratio 15.2 Calcium 9.5 8.5-10.1 mg/dL Bilirubin Total 0.6 0.2-1.0 mg/dL Aspartate Amino Transferase 34 15-37 U/L Alanine Aminotransferase 24 16-63 U/L Alkaline Phosphatase 137 46-116 U/L Total Protein 7.6 6.4-8.2 g/dL Albumin Level 3.3 3.4-5.0 g/dL Globulin 4.3 Albumin Globulin Ratio 0.8 Performing Lab: see note ML - [facility] LB TSH W/ REFLEX FT4 (Not yet r eviewed by provider) Interpretation: Performing Lab: Notes/Report: [facility] , TSH W/ REFLEX FT4 2.667 0.358-3.740 uIU/mL Performing Lab: see note ML - [facility] LB MAGNESIUM (Not yet reviewed by provider) Interpretation: Performing Lab: Notes/Report: [facility] , Magnesium 1.9 1.8-2.4 mg/dL Performing Lab: see note ML - [facility] LB CBC AUTO DIFF (Not yet revie wed by provider) Interpretation: Performing Lab: Notes/Report: [facility] , White Blood Count 12.7 4.0-11.0 10 3/uL Red Blood Count 4.40 4.70-6.10 10 6/uL Hemoglobin 12.5 14.0-18.0 g/dL Hematocrit 36.1 42.0-54.0 % Mean Corpuscular Volume 82.0 80.0-94.0 fL Mean Corpuscular Hemoglobin 28.4 25.9-34.0 pg Mean Corpuscular HGB Conc 34.6 29.9-35.2 g/dL Red Cell Distribution Width 15.9 11.0-15.0 % Platelet Count 391 150-450 10 3/uL Mean Platelet Volume 8.0 9.5-13.5 fL Neutrophils Percent Auto 65.6 43.0-75.0 % Lymphocytes Percent Auto 20.7 20.5-60.0 % Monocytes Percent Auto 9.1 1.7-12.0 % Eosinophils Percent Auto 3.5 0.9-7.0 % Basophils Percent Auto 0.8 0.2-2.0 % Immature Granulocytes Pct Auto 0.3 0.0-0.5 % Neutrophils Absolute Auto 8.3 1.4-6.5 10 3/uL Lymphocytes Absolute Auto 2.6 1.2-3.8 10 3/uL Monocytes Absolute Auto 1.2 0.3-0.8 10 3/uL Eosinophils Absolute Auto 0.4 0.0-0.7 10 3/uL Basophils Absolute Auto 0.1 0.0-0.1 10 3/uL Immature Granulocytes Abs Auto 0.04 0.00-0.03 10 3/uL Performing Lab: see note ML - [facility] LB PET skull to mid thigh (Not yet reviewed by provider) Interpretation: Performing Lab: Notes/Report: Source Facility: [facility]-[address] [place] [address] [address] PET Report Signed Patient: BOBBY VELAZCO MR#: [id number] : 1960 Acct:[id number] Age/Sex: 63 / M ADM Date: 07/09/24 Loc: PETCT Attending Dr: Rozina Garber M.D. Ordering Physician: Rozina Garber M.D. Date of Service: 07/09/24 Procedure(s): PET skull to mid thigh Accession Number(s): [id number] cc: Rozina Garber M.D. [place] [id number] Patient Name: BOBBY VELAZCO MRN: [id number] date: 1960 Sex: M Assigned Patient Location: PETCT Current Patient Location: Accession/Order Number: [id number] Exam Date: 07/10/2024 11:32 Report Date: 07/10/2024 12:02 At the request of: ROZINA GARBER MD Procedure: PET skull to mid thigh PET CT WITH FUSION COMPARISON: 04/19/2024 CLINICAL DATA: Follow-up of left upper lobe lung cancer Following the intravenous administration of 14.32 mCi of FDG, SPECT imaging in 3 planes was performed from the level the orbits through the brain. The patient's blood glucose level at the time of injection was 86 mg/dL. Spiral unenhanced CT was also performed for anatomic localization. The PET and CT images were fused. This CT exam was performed using one or more following dose reduction techniques: Automated exposure control, adjustment of the mA and/or kV according to patient size, or use of iterative reconstruction technique. NECK: No enlarged or hypermetabolic cervical lymph nodes are seen. There are still increased FDG uptake at the nose, undetermined etiology and significance. Carotid artery plaque is noted. CHEST: There is obstructive lung disease with scarring or atelectasis. Suspected scarring with associated calcifications at the left upper lobe is unchanged and not hypermetabolic. There is still a hypermetabolic left hilar focus that might be a lymph node with SUV of 16.2 increase in size in uptake since the prior. There is parenchymal change at the posterior lateral left lower lobe which has improved since the prior though there is no new more nodular 2.8 cm component extending into the costophrenic angle. This is not hypermetabolic. The thoracic aorta is ectatic, particularly the descending segment. There is coronary artery disease. Bilateral gynecomastia is seen, left greater than right. ABDOMEN/PELVIS: There are no hypermetabolic hepatic lesions. There is an enlarging, lobulated left adrenal mass with peripheral FDG uptake which appears slightly larger however the FDG uptake values have decreased. Current max SUV is between 12 and 13 and previously the highest measurement was 20. There is a mass with peripheral FDG uptake and maximum SUV of almost 18 at the iliac fossa on the right. Previous SUV measured just over 20. This has enlarged from 2.4 cm to 5.3 cm. The central portion may be necrotic. There are periportal lymph nodes which are slightly larger though not hypermetabolic. There is no other hypermetabolic adenopathy within the abdomen or pelvis. There is physiologic activity involving the urinary tract and bowel. Prominent atherosclerotic disease is noted. There is mild prostate hypertrophy. The urinary bladder is poorly distended and the wall appears thickened. PET/PET skull to mid thigh IMPRESSION: INCREASED SIZE AND FDG UPTAKE INVOLVING A SUSPECTED LEFT HILAR LYMPH NODE. LEFT-SIDED PARENCHYMAL CHANGES WHICH ARE NOT HYPERMETABOLIC. ENLARGING LEFT ADRENAL LESION WHICH SHOWS INTERVAL DECREASE IN FDG UPTAKE. ENLARGING RIGHT ILIAC FOSSA MASS/ADENOPATHY WITH CENTRAL NECROSIS, ALSO WITH SLIGHT DECREASE IN FDG UPTAKE. Impression dictated by: Kasie Hayes M.D. 07/10/2024 12:02 PM Dictation Location: [place] [address] Electronically authenticated by: [id number] Y Date: 07/10/2024 12:02 Dictated By: Kasie Hayes M.D. Signed By: 07/10/24 1205 DD/ 1202 TD/TT: Design Agent: [place] [address] PET Report Signed Patient: BOBBY VELAZCO MR#: [id number] : 1960 Acct:[id number] Age/Sex: 63 / M ADM Date: 07/09/24 Loc: PETCT Attending Dr: Dano Garber M.D. Ordering Physician: Rozina Garber M.D. Date of Service: 07/09/24 Procedure(s): PET sk ull to mid thigh Accession Number(s): [id number] cc: Rozina Garber M.D. The [place] [id number] Patient Name: BOBBY VELAZCO MRN: [id number] date: 1960 Sex: M Assigned Patient Location: PETCT Current Patient Location: Accession/Order Numb er: [id number] Exam Date: 07/10/2024 11:32 Report Date: 07/10/2024 12:02 At the request of: ROZINA GARBER MD Procedure: PET skull to mid thigh PET CT WITH FUSION COMPARISON: 04/19/2024 CLINICAL DATA: Follo w-up of left upper lobe lung cancer Following the intravenous administration of 14.32 mCi of FDG, SPECT imaging in 3 planes was perform ed from the level the orbits through the brain. The patient's blood gluc ose level at the time of injection was 86 mg/dL. Spiral unenhanced CT was al so performed for anatomic localization. The PET and CT images were fused. T his CT exam was performed using one or more following dose reduction techniques: Automated exposure control, adjustment of the mA and/or kV according to patient size, or use of iterative reconstruction technique. NECK: No enlarged or hypermetabolic cervical lymph nodes are seen. There are still increased FDG uptake at the nose, undetermined etiology and significance. Caroti d artery plaque is noted. CHEST: There is obstructive lung disease with scarring or atelectasis. Suspected scarring w ith associated calcifications at the left upper lobe is unchanged and not hypermetabolic. There is still a hypermetabolic left hilar focus that might be a lymph node with SUV of 16.2 increase in size in uptake since the prior. The re is parenchymal change at the posterior lateral left lower lobe which has improved since the prior though there is no new more nodular 2.8 cm compo nent extending into the costophrenic angle. This is not hypermetabolic. The thoracic aorta is ectatic, particularly the descending segment. There is coronary artery disease. Bilateral gynecomastia is seen, left greater than right. ABDOMEN/PELVIS: Ther e are no hypermetabolic hepatic lesions. There is an enlarging, lobulated left adrenal mass with peripheral FDG uptake which appears slightly lar karen however the FDG uptake values have decreased. Current max SUV is between 1 2 and 13 and previously the highest measurement was 20. There is a mass with peripheral FDG uptake and maximum SUV of almost 18 at the iliac fossa on the right. Previous SUV measured just over 20. This has enlarged from 2.4 cm to 5.3 cm. The central portion may be necrotic. There are periportal lymph nodes which are slightly larger though not hypermetabolic. Ther e is no other hypermetabolic adenopathy within the abdomen or pelvis. T here is physiologic activity involving the urinary tract and bowel. Prominent atherosclerotic disease is noted. There is mild prostate hypertrophy . The urinary bladder is poorly distended and the wall appears thickened. PET/PET skull to mid thigh IMPRESSION: INCREASED SIZE AND F DG UPTAKE INVOLVING A SUSPECTED LEFT HILAR LYMPH NODE. LEFT-SIDED PARENCHYM AL CHANGES WHICH ARE NOT HYPERMETABOLIC. ENLARGING LEFT ADREN AL LESION WHICH SHOWS INTERVAL DECREASE IN FDG UPTAKE. ENLARGING RIGHT TIARRA C FOSSA MASS/ADENOPATHY WITH CENTRAL NECROSIS, ALSO WITH SLIGHT DECREASE IN F DG UPTAKE. Impression dictated by: Kasie Hayes M.D. 07/10/2024 12:02 PM Dictation Location: [place] [address] Electronically authenticated by: [id number] Y Date: 07/10/2024 12:02 Dictated By: Kasie Hayes M.D. Signed By: 07/10/24 1205 DD/ 1202 TD/TT: Design Agent: TSH W/ REFLEX FT4 (Not yet r eviewed by provider) Interpretation: Performing Lab: Notes/Report: [facility] , TSH W/ REFLEX FT4 2.371 0.358-3.740 uIU/mL Performing Lab: see note ML - [facility] LB PROF 14(COMP METB) (Not yet reviewed by provider) Interpretation: Performing Lab: Notes/Report: [facility] , Sodium 129 136-145 mmol/L Potassium 5.3 3.5-5.1 mmol/L Chloride 95 98-107 mmol/L Carbon Dioxide 26.4 21.0-32.0 mmol/L Anion Gap 12.9 Glucose 87 74-106 mg/dL Blood Urea Nitrogen 20.0 7.0-18.0 mg/dL Creatinine 1.20 0.70-1.30 mg/dL Estimated GFR ( Agatha >60 >=60 mL/min/1.73m 2 Estimated GFR (Non- Carmen >60 >=60 mL/min/1.73m 2 BUN Creatinine Ratio 16.7 Calcium 9.5 8.5-10.1 mg/dL Bilirubin Total 0.2 0.2-1.0 mg/dL Aspartate Amino Transferase 34 15-37 U/L Alanine Aminotransferase 41 16-63 U/L Alkaline Phosphatase 177 46-116 U/L Total Protein 7.5 6.4-8.2 g/dL Albumin Level 3.0 3.4-5.0 g/dL Globulin 4.5 Albumin Globulin Ratio 0.7 Performing Lab: see note ML - [facility] LB MAGNESIUM (Not yet reviewed by provider) Interpretation: Performing Lab: Notes/Report: [facility] , Magnesium 1.9 1.8-2.4 mg/dL Performing Lab: see note - [facility] LB CBC AUTO DIFF (Not yet revie wed by provider) Interpretation: Performing Lab: Notes/Report: [facility] , White Blood Count 13.3 4.0-11.0 10 3/uL Red Blood Count 4.77 4.70-6.10 10 6/uL Hemoglobin 13.2 14.0-18.0 g/dL Hematocrit 38.7 42.0-54.0 % Mean Corpuscular Volume 81.1 80.0-94.0 fL Mean Corpuscular Hemoglobin 27.7 25.9-34.0 pg Mean Corpuscular HGB Conc 34.1 29.9-35.2 g/dL Red Cell Distribution Width 14.4 11.0-15.0 % Platelet Count 387 150-450 10 3/uL Mean Platelet Volume 8.4 9.5-13.5 fL Neutrophils Percent Auto 65.2 43.0-75.0 % Lymphocytes Percent Auto 21.9 20.5-60.0 % Monocytes Percent Auto 9.6 1.7-12.0 % Eosinophils Percent Auto 2.1 0.9-7.0 % Basophils Percent Auto 0.7 0.2-2.0 % Immature Granulocytes Pct Auto 0.5 0.0-0.5 % Neutrophils Absolute Auto 8.7 1.4-6.5 10 3/uL Lymphocytes Absolute Auto 2.9 1.2-3.8 10 3/uL Monocytes Absolute Auto 1.3 0.3-0.8 10 3/uL Eosinophils Absolute Auto 0.3 0.0-0.7 10 3/uL Basophils Absolute Auto 0.1 0.0-0.1 10 3/uL Immature Granulocytes Abs Auto 0.07 0.00-0.03 10 3/uL Performing Lab: see note ML - [facility] LB CBC AUTO DIFF (Not yet revie wed by provider) Interpretation: Performing Lab: Notes/Report: [facility] , White Blood Count 9.3 4.0-11.0 10 3/uL Red Blood Count 4.60 4.70-6.10 10 6/uL Hemoglobin 12.8 14.0-18.0 g/dL Hematocrit 37.8 42.0-54.0 % Mean Corpuscular Volume 82.2 80.0-94.0 fL Mean Corpuscular Hemoglobin 27.8 25.9-34.0 pg Mean Corpuscular HGB Conc 33.9 29.9-35.2 g/dL Red Cell Distribution Width 14.5 11.0-15.0 % Platelet Count 319 150-450 10 3/uL Mean Platelet Volume 8.7 9.5-13.5 fL Neutrophils Percent Auto 47.6 43.0-75.0 % Lymphocytes Percent Auto 37.6 20.5-60.0 % Monocytes Percent Auto 12.5 1.7-12.0 % Eosinophils Percent Auto 1.5 0.9-7.0 % Basophils Percent Auto 0.3 0.2-2.0 % Immature Granulocytes Pct Auto 0.5 0.0-0.5 % Neutrophils Absolute Auto 4.4 1.4-6.5 10 3/uL Lymphocytes Absolute Auto 3.5 1.2-3.8 10 3/uL Monocytes Absolute Auto 1.2 0.3-0.8 10 3/uL Eosinophils Absolute Auto 0.1 0.0-0.7 10 3/uL Basophils Absolute Auto 0.0 0.0-0.1 10 3/uL Immature Granulocytes Abs Auto 0.05 0.00-0.03 10 3/uL Performing Lab: see note ML - [facility] LB Vitamin B12 (Not yet reviewe d by provider) Interpretation: Performing Lab: Notes/Report: [facility] , Vitamin B12 [phone] pg/mL Hot Top Liner: Orlin Cunningham PhD, Phone: [phone] [address] [place], [place] [id number] Performed at: - [facility] Performing Lab: see note LC - [facility] LB Erythrocyte Sedimentation Ra te (Not yet reviewed by provider) Interpretation: Performing Lab: Notes/Report: [facility] , Erythrocyte Sedimentation Rate 115 <=20 mm/hr Performing Lab: see note ML - [facility] LB PROF 14(COMP METB) (Not yet reviewed by provider) Interpretation: Performing Lab: Notes/Report: [facility] , Sodium 130 136-145 mmol/L Potassium 5.2 3.5-5.1 mmol/L Chloride 98 98-107 mmol/L Carbon Dioxide 26.1 21.0-32.0 mmol/L Anion Gap 11.1 Glucose 101 74-106 mg/dL Blood Urea Nitrogen 18.0 7.0-18.0 mg/dL Creatinine 1.18 0.70-1.30 mg/dL Estimated GFR ( Agatha >60 >=60 mL/min/1.73m 2 Estimated GFR (Non- Carmen >60 >=60 mL/min/1.73m 2 BUN Creatinine Ratio 15.3 Calcium 9.8 8.5-10.1 mg/dL Bilirubin Total 0.2 0.2-1.0 mg/dL Aspartate Amino Transferase 33 15-37 U/L Alanine Aminotransferase 41 16-63 U/L Alkaline Phosphatase 164 46-116 U/L Total Protein 7.9 6.4-8.2 g/dL Albumin Level 2.9 3.4-5.0 g/dL Globulin 5.0 Albumin Globulin Ratio 0.6 Performing Lab: see note ML - [facility] LB IRON AND TIBC (Not yet revie wed by provider) Interpretation: Performing Lab: Notes/Report: [facility] , Iron 50.0 65.0-175.0 ug/dL Total Iron Binding Capacity 167.0 250.0-450.0 ug/dL Percent Iron Saturation 29.9 Performing Lab: see note ML - [facility] LB FOLATE (Not yet reviewed by provider) Interpretation: Performing Lab: Notes/Report: [facility] , Folate 8.50 8.60-58.90 ng/mL Performing Lab: see note ML - [facility] LB FERRITIN (Not yet reviewed b y provider) Interpretation: Performing Lab: Notes/Report: [facility] , Ferritin 2046.0 26.0-388.0 ng/mL Performing Lab: see note ML - [facility] LB CBC AUTO DIFF (Not yet revie wed by provider) Interpretation: Performing Lab: Notes/Report: [facility] , White Blood Count 11.1 4.0-11.0 10 3/uL Red Blood Count 4.56 4.70-6.10 10 6/uL Hemoglobin 13.0 14.0-18.0 g/dL Hematocrit 39.2 42.0-54.0 % Mean Corpuscular Volume 86.0 80.0-94.0 fL Mean Corpuscular Hemoglobin 28.5 25.9-34.0 pg Mean Corpuscular HGB Conc 33.2 29.9-35.2 g/dL Red Cell Distribution Width 13.7 11.0-15.0 % Platelet Count 440 150-450 10 3/uL Mean Platelet Volume 8.7 9.5-13.5 fL Neutrophils Percent Auto 61.3 43.0-75.0 % Lymphocytes Percent Auto 27.2 20.5-60.0 % Monocytes Percent Auto 8.6 1.7-12.0 % Eosinophils Percent Auto 1.8 0.9-7.0 % Basophils Percent Auto 0.7 0.2-2.0 % Immature Granulocytes Pct Auto 0.4 0.0-0.5 % Neutrophils Absolute Auto 6.8 1.4-6.5 10 3/uL Lymphocytes Absolute Auto 3.0 1.2-3.8 10 3/uL Monocytes Absolute Auto 1.0 0.3-0.8 10 3/uL Eosinophils Absolute Auto 0.2 0.0-0.7 10 3/uL Basophils Absolute Auto 0.1 0.0-0.1 10 3/uL Immature Granulocytes Abs Auto 0.04 0.00-0.03 10 3/uL Performing Lab: see note ML - [facility] LB TSH W/ REFLEX FT4 (Not yet r eviewed by provider) Interpretation: Performing Lab: Notes/Report: [facility] , TSH W/ REFLEX FT4 1.289 0.358-3.740 uIU/mL Performing Lab: see note ML - [facility] LB PROF 14(COMP METB) (Not yet reviewed by provider) Interpretation: Performing Lab: Notes/Report: [facility] , Sodium 133 136-145 mmol/L Potassium 4.5 3.5-5.1 mmol/L Chloride 99 98-107 mmol/L Carbon Dioxide 25.7 21.0-32.0 mmol/L Anion Gap 12.8 Glucose 120 74-106 mg/dL Blood Urea Nitrogen 20.0 7.0-18.0 mg/dL Creatinine 1.06 0.70-1.30 mg/dL Estimated GFR ( Agatha >60 >=60 mL/min/1.73m 2 Estimated GFR (Non- Carmen >60 >=60 mL/min/1.73m 2 BUN Creatinine Ratio 18.9 Calcium 9.7 8.5-10.1 mg/dL Bilirubin Total 0.3 0.2-1.0 mg/dL Aspartate Amino Transferase 39 15-37 U/L Alanine Aminotransferase 28 16-63 U/L Alkaline Phosphatase 169 46-116 U/L Total Protein 7.3 6.4-8.2 g/dL Albumin Level 2.7 3.4-5.0 g/dL Globulin 4.6 Albumin Globulin Ratio 0.6 Performing Lab: see note ML - [facility] LB MAGNESIUM (Not yet reviewed by provider) Interpretation: Performing Lab: Notes/Report: [facility] , Magnesium 1.6 1.8-2.4 mg/dL Performing Lab: see note ML - [facility] LB CBC AUTO DIFF (Not yet revie wed by provider) Interpretation: Performing Lab: Notes/Report: [facility] , White Blood Count 9.5 4.0-11.0 10 3/uL Red Blood Count 4.15 4.70-6.10 10 6/uL Hemoglobin 11.9 14.0-18.0 g/dL Hematocrit 36.5 42.0-54.0 % Mean Corpuscular Volume 88.0 80.0-94.0 fL Mean Corpuscular Hemoglobin 28.7 25.9-34.0 pg Mean Corpuscular HGB Conc 32.6 29.9-35.2 g/dL Red Cell Distribution Width 14.6 11.0-15.0 % Platelet Count 321 150-450 10 3/uL Mean Platelet Volume 8.6 9.5-13.5 fL Neutrophils Percent Auto 60.4 43.0-75.0 % Lymphocytes Percent Auto 28.9 20.5-60.0 % Monocytes Percent Auto 6.8 1.7-12.0 % Eosinophils Percent Auto 2.6 0.9-7.0 % Basophils Percent Auto 0.9 0.2-2.0 % Immature Granulocytes Pct Auto 0.4 0.0-0.5 % Neutrophils Absolute Auto 5.7 1.4-6.5 10 3/uL Lymphocytes Absolute Auto 2.8 1.2-3.8 10 3/uL Monocytes Absolute Auto 0.7 0.3-0.8 10 3/uL Eosinophils Absolute Auto 0.3 0.0-0.7 10 3/uL Basophils Absolute Auto 0.1 0.0-0.1 10 3/uL Immature Granulocytes Abs Auto 0.04 0.00-0.03 10 3/uL Performing Lab: see note ML - [facility] LB PROF 14(COMP METB) (Not yet reviewed by provider) Interpretation: Performing Lab: Notes/Report: [facility] , Sodium 134 136-145 mmol/L Potassium 4.5 3.5-5.1 mmol/L Chloride 98 98-107 mmol/L Carbon Dioxide 23.6 21.0-32.0 mmol/L Anion Gap 16.9 Glucose 101 74-106 mg/dL Blood Urea Nitrogen 10.0 7.0-18.0 mg/dL Creatinine 1.45 0.70-1.30 mg/dL Estimated GFR ( Agatha 59 >=60 mL/min/1.73m 2 Estimated GFR (Non- Carmen 49 >=60 mL/min/1.73m 2 BUN Creatinine Ratio 6.9 Calcium 9.7 8.5-10.1 mg/dL Bilirubin Total 0.4 0.2-1.0 mg/dL Aspartate Amino Transferase 43 15-37 U/L Alanine Aminotransferase 23 16-63 U/L Alkaline Phosphatase 165 46-116 U/L Total Protein 8.1 6.4-8.2 g/dL Albumin Level 2.5 3.4-5.0 g/dL Globulin 5.6 Albumin Globulin Ratio 0.4 Performing Lab: see note ML - [facility] LB FERRITIN (Not yet reviewed b y provider) Interpretation: Performing Lab: Notes/Report: [facility] , Ferritin 2563.0 26.0-388.0 ng/mL Performing Lab: see note ML - [facility] LB Erythropoietin (EPO), Serum (Not yet reviewed by provider) Interpretation: Performing Lab: Notes/Report: [facility] , Erythropoietin (EPO), Serum 12.2 2.6-18.5 mIU/mL Values obtained with different assay methods or kits cannot [address] [place] [id number] Performed at: [facility]. absolute evidence of the presence or absence of malignant Hot Top Liner: Orlin Cunningham PhD, Phone: [phone] be used interchangeably. Results cannot be interpreted as [employer] DxI 800 Immunoassay System Performing Lab: see note - [facility] LB Reticulocyte Pct Auto (Not y et reviewed by provider) Interpretation: Performing Lab: Notes/Report: [facility] , Reticulocyte Pct Auto 1.60 0.60-3.10 % Performing Lab: see note ML - [facility] LB Erythrocyte Sedimentation Ra te (Not yet reviewed by provider) Interpretation: Performing Lab: Notes/Report: [facility] , Erythrocyte Sedimentation Rate >130 <=20 mm/hr Performing Lab: see note ML - [facility] LB FOLATE (Not yet reviewed by provider) Interpretation: Performing Lab: Notes/Report: [facility] , Folate 3.50 8.60-58.90 ng/mL Performing Lab: see note ML - [facility] LB FERRITIN (Not yet reviewed b y provider) Interpretation: Performing Lab: Notes/Report: [facility] , Ferritin 1797.0 26.0-388.0 ng/mL Performing Lab: see note ML - [facility] LB CBC AUTO DIFF (Not yet revie wed by provider) Interpretation: Performing Lab: Notes/Report: [facility] , White Blood Count 9.3 4.0-11.0 10 3/uL Red Blood Count 3.53 4.70-6.10 10 6/uL Hemoglobin 10.5 14.0-18.0 g/dL Hematocrit 31.8 42.0-54.0 % Mean Corpuscular Volume 90.1 80.0-94.0 fL Mean Corpuscular Hemoglobin 29.7 25.9-34.0 pg Mean Corpuscular HGB Conc 33.0 29.9-35.2 g/dL Red Cell Distribution Width 16.6 11.0-15.0 % Platelet Count 324 150-450 10 3/uL Mean Platelet Volume 8.5 9.5-13.5 fL Neutrophils Percent Auto 73.0 43.0-75.0 % Lymphocytes Percent Auto 19.7 20.5-60.0 % Monocytes Percent Auto 5.9 1.7-12.0 % Eosinophils Percent Auto 0.6 0.9-7.0 % Basophils Percent Auto 0.5 0.2-2.0 % Immature Granulocytes Pct Auto 0.3 0.0-0.5 % Neutrophils Absolute Auto 6.8 1.4-6.5 10 3/uL Lymphocytes Absolute Auto 1.8 1.2-3.8 10 3/uL Monocytes Absolute Auto 0.6 0.3-0.8 10 3/uL Eosinophils Absolute Auto 0.1 0.0-0.7 10 3/uL Basophils Absolute Auto 0.1 0.0-0.1 10 3/uL Immature Granulocytes Abs Auto 0.03 0.00-0.03 10 3/uL Performing Lab: see note ML - [facility] LB Reason For Referral No Information Medications Medication SIG (Take, Route, Frequency, Duration) Notes Start Date End Date Status Anoro Ellipta 62.5-25 MCG/ACT 1 puff Inhalation Once a day for 30 days 05/22/2024 Active Albuterol Sulfate HFA 108 (90 Base) MCG/ACT 2 puffs as needed for SOB Inhalation Q4H for 30 days 05/22/2024 Active buPROPion HCl ER (XL) 150 MG 1 tablet Orally Once a day for 30 days 05/22/2024 Active Omeprazole 20 MG Oral for 90 Days Active Spironolactone 25 MG Oral for 90 Days Active Magnesium 400 MG as directed Orally three times daily Active Metoprolol Succinate ER 50 MG TAKE 1 TABLET BY MOUTH EVERY DAY Oral for 90 Days Active Calcium Carbonate 1500 (600 Ca) MG TAKE 1 TABLET BY MOUTH IN THE MORNING,AT NOON,AND IN THE EVENING WITH MEALS Oral for 90 Days Active Klor-Con 10 10 MEQ 1 tablet with food Orally three times daily Active amLODIPine Besylate 5 MG Oral for 30 Days Active Keytruda 100 MG/4ML 8 mL Intravenous Active Warfarin Sodium 5 MG Oral for 90 Days Active Nicotine 14 MG/24HR APPLY 1 PATCH TOPICALLY EVERYDAY NEEDED (SMOKING) Transdermal for 14 Days Not-Taking Immunizations Vaccine Route Administration Date Status Comme nts SARS-COV-2 (COVID 19 Pfizer 30mcg/0.3mL) Unknown 10/27/2020 Administered Social History Tobacco Use: Social History Observation Description Date Details (start date - stop date) Current Smoker NA - NA Tobacco Control (Standard) Question Answer Notes Tobacco use: Current every day smoker Additional Findings: Tobacco user Moderate cigar ette smoker (10-19 cigs/day) Problems Problem Type SNOMED Code ICD Code Onset Dates Problem Status W/U Status Risk Notes Problem Centrilobular emphysema (22993400) Centrilobular emphysema (J43.2) Active confirmed Problem 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) Cigarette nicotine dependence with nicotine-induced disorder (F17.219) Active confirmed Problem Pulmonary embolism (62439910) Pulmonary emboli (I26.99) Active confirmed Problem Anemia of chronic disease (898229906) Anemia of chronic disease (D63.8) Active confirmed Problem Adenocarcinoma of left lung (6059894838297189 5) Adenocarcinoma of left lung (C34.92) Active confirmed Problem Secondary pulmonary hypertension (24305357) Other secondary pulmonary hypertension (I27.29) Active confirmed Problem Secondary malignant neoplastic disease (187290857) Metastatic adenocarcinoma to intra-abdominal site (C79.89) Active confirmed Problem Chronic diastolic heart failure (518693324) Chronic heart failure with preserved ejection fraction (HFpEF) (I50.32) Active confirmed Vital Signs Heart Rate 80 /min 05/22/2024 Temperature 96.6 degrees Fahrenheit 05/22/2024 Respiratory Rate 16 /min 05/22/2024 Oximetry 97 % 05/22/2024 Blood pressure diastolic 76 mm Hg 05/22/2024 Height 69 in 05/22/2024 Blood pressure systolic 107 mm Hg 05/22/2024 Weight 137.8 lbs 05/22/2024 BMI 20.35 kg/m2 05/22/2024 Procedures Procedure Date Ordered Date Performed Result Body Sit e Smoking/Tobacco Counseling 3 min up to 10-performed 05/22/2024 05/22/2024 N/A Inhaler Teaching/Aerosol-performed 05/22/2024 05/22/2024 N /A Encounters Encounter Location Date Provider Diagnosis [facility] [place] [address] [place] [facility] [address] 05/22/2024 Nacho Davis Centrilobular emphys cherelle J43.2 ; Cigarette nicotine dependence with nicotine-induced disorder F17.219 ; Pulmonary emboli I26.99 ; Adenocarcinoma of left lung C34.92 and Other secondary pulmonary hypertension I27.29 [facility] On[facility] [address] [place] [facility] [address] 06/05/2024 Rozina Jcarlos [facility] Oncology [address] [place] [facility] [address] 07/17/2024 Rozina Jcarlos [facility] Oncology [address] [place] [facility] [address] 04/24/2024 Rozina Jcarlos [facility] Oncology [address] [place] [facility] [address] 06/19/2024 Rozina Jcarlos [facility] Oncology [address] [place] [facility] [address] 06/26[facility]20[facility] [address] [place] [facility] [address] 06/26/2024 Rozina Jcarlos [facility] Oncology [address] [place] [facility] [address] 07/17/2024 [facility] [address] [place] [facility] [address] 04/24/2024 Rozina Jcarlos [facility] Oncology [address] [place] [facility] [place] [address] 06/05/2024 [facility] [address] [place] [facility] [address] 03/27/2024 Rozina Jcarlos [facility] Oncology [address] [place] [facility] [address] 04/17/2024 Rozina Jcarlos [facility] [address] [place] [facility] [address] 05/01/2024 Nacho Davis [facility] [address] [place] [address] 05/22/2024 [facility] [place] [address] [place] [address] 08/20/2024 [facility] Assessments Encounter Date Diagnosis (ICD Code) Assessment Notes Treatment Notes Treatment Clinical Notes Section Notes 05/22/2024 Centrilobular emphysema (ICD-10 - J43.2) Emphysematous findings on past chest CT imaging, long history of smoking, and moderate obstruction based on prior PFT with FEV1 68%. Patient originally dismissive of symptoms, but upon further discussion, he admits that he is short of breath with coughing and wheezing. He voiced he wants to quit smoking, which could help tremendously. Regarding treatment, I feel he would benefit most from a maintenance inhaler. Recommending starting with a LAMA/LABA. Appears that only Anoro is covered (Bevespi and Stiolto do not appear to be covered). Will start Anoro, 1 puff QD - Rx sent. Inhaler demonstration of the Ellipta device was performed with the patient. Appropriate technique was demonstrated. Proper timing for administration was reviewed. Discussed common adverse effects associated with LABA and LAMA medications. Additionally, sent in Rx for albuterol to use PRN SOB. Discussed repeating PFT in the future. F/U visit will be ~2 years since last done. Pulmonary rehabilitation may be an option for him. F/U 3 months, or sooner PRN. 05/22/2024 Cigarette nicotine dependence with nicotine-induced disorder (ICD-10 - F17.219) Discussed smoking cessation for 4 minutes. Patient was counseled on the benefits of smoking cessation including decreased risk of lung cancer and development of respiratory illnesses (e.g. COPD). He has tried the gum and did not like it. Patches do not seem to help. Discussed bupropion (Wellbutrin/Zyban) and varenicline (Chantix). After discussing benefits and risks of these two options, he voiced he wanted to try bupropion. He has no seizure/epilepsy history. Will start bupropion XL 150mg and reassess after 3 months. Depending on response and smoking cessation progress, can increase to 300mg if needed. 05/22/2024 Pulmonary emboli (ICD-10 - I26.99) Diagnosed 03/12/2024. Echocardiogram 03/13/2024 suggested eleveated RVSP @ 50mmHg, but no other evidence of right heart strain. Given underlying malignancy history[facility]. 05[facility]22[facility]24 Adenocarcinoma of left lung (ICD-10 - C34.92) Diagnosed 08/03/2022, TRISTEN. ? Metastatic to adrenal gland now? Only had radiation to left lung (no chemo, not a surgical candidate), currently on Keytruda. Deferring further chest CT monitoring to Dr. Garber. 05/22/2024 Other secondary pulmonary hypertension (ICD-10 - I27.29) Echocardiogram 03/13/2024 noted increased RVSP @ 50mmHg. Unclear if secondary to acute pulmonary emboli vs. other (group 2 associated with HFpEF +/- group 3 associated with COPD/hypoxia). No right heart strain was noted on echo. He follows with [facility] Cardiology. If patient remains dyspneic, may need to consider V/Q in the future to evaluate for chronic thromboembolic pulmonary hypertension (CTEPH - group 4 pulmonary hypertension). Plan Of Treatment Pending Test Test Name Order Date CBC AUTO DIFF 03/27/2024 CBC AUTO DIFF 04/03/2024 CBC AUTO DIFF 04/17/2024 CBC AUTO DIFF 04/24/2024 CBC AUTO DIFF 05/15/2024 CBC AUTO DIFF 06/05/2024 CBC AUTO DIFF 06/19/2024 CBC AUTO DIFF 06/26/2024 CBC AUTO DIFF 07/17/2024 CBC AUTO DIFF 08/09/2024 CRP 05/15/2024 CRP 03/27/2024 FERRITIN 03/27/2024 FERRITIN 05/15/2024 FERRITIN 04/03/2024 FOLATE 05/15/2024 FOLATE 03/27/2024 IRON AND TIBC 03/27/2024 IRON AND TIBC 04/03/2024 IRON AND TIBC 05/15/2024 MAGNESIUM 06/26/2024 MAGNESIUM 06/05/2024 MAGNESIUM 04/24/2024 MAGNESIUM 07/17/2024 MAGNESIUM 08/09/2024 PROF 14(COMP METB) 08/09/2024 PROF 14(COMP METB) 07/17/2024 PROF 14(COMP METB) 04/24/2024 PROF 14(COMP METB) 04/03/2024 PROF 14(COMP METB) 03/27/2024 PROF 14(COMP METB) 06/05/2024 PROF 14(COMP METB) 06/26/2024 PROF 14(COMP METB) 05/15/2024 Erythrocyte Sedimentation Rate Erythrocyte Sedimentation Rate PET skull to mid thigh 07/10/2024 TSH W/ REFLEX FT4 07/17/2024 TSH W/ REFLEX FT4 08/09/2024 TSH W/ REFLEX FT4 04/24/2024 TSH W/ REFLEX FT4 06/26/2024 TSH W/ REFLEX FT4 06/05/2024 Reticulocyte Pct Auto 03/27/2024 Erythropoietin (EPO), Serum 03/27/2024 Vitamin B12 03/27/2024 Vitamin B12 05/15/2024 CT biopsy lung 08/03/2022 Next Appt Details Provider Name:Rozina Garber , 09/18/2024 10:30:00 AM, [facility] [place], [address], Provider Name:Rozina Garber , 09/18/2024 10:45:00 AM, [address] [place], [address], Insurance Providers Payer Name Payer Address Payer Phone Subscriber Number Group Number Insured Name Patient Relationship to Insured Coverage Start Date Coverage End Date [place]IC[place] [address] [place] [address] [phone] [id number] Juan A Bobby Self - patient is the insured 4 [employer] [address] MEDICARE SUPP CLMS DEPT [place] [id number] Juan A Bobby Self - patient is the insured Medical (General) History Medical History History ICD Code Fracture of unspecified meta tarsal bone(s), right foot, initial encounter for closed fracture S92.301A 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 Metastatic adenocarcinoma to intra-abdom inal site C79.89 Adenocarcinoma of left lung C34.92 Pulmonary emboli I26.99 Centrilobular emphysema J43.2 Cigarette nicotine dependence with nicot ine-induced disorder F17.219 History of alcohol abuse Z87.898 Other secondary pulmonary hypertension I 27.29 Chronic heart failure with preserved eje ction fraction (HFpEF) I50.32 HTN (hypertension) I10 HLD (hyperlipidemia) E78.5 Anemia of chronic disease D63.8 Alcoholic fatty liver K70.0 Surgical History Surgery Date(Month/Year) Appendectomy Tonsillectomy [facility] 09/06/2022 adrenal biopsy Hospitalization History Reason Date(Month/Year) [facility] 11/2022
--- OUTSIDE RECORDS SUMMARY | 2024-09-07 12:29 | XMS_ITS | Encounter Summary ---
Author Organization [facility] Address [address] [place] [address] Care Team Providers Care Auto Research Engineer Name Role Phone Tiny Steinberg MD Unavailable Encounter Details Date Type Department Care Team (Late st Contact Info) Description 08/10/2023 Abstract [facility] [address] [place] [address] Kylie Rogers, DRAFTER CARTOGRAPHIC [address] [place], [place] [phone] Social History Tobacco Use Types Packs/Day Years [...] on filedocumented in this encounter Care Teams Auto Research Engineer Relationship Specialty Start Date End Date Tiny Steinberg MD [address] [facility] [address] [place], [place] [id number] PCP - [facility] 03/16/24 documented as of this encounter
[2024-09-07 12:55] LABS: Cholesterol 232 mg/dL (<=200); HDL Cholesterol 58 mg/dL (40-60); Triglycerides 63 mg/dL (<=150); VLDL CHOLESTEROL 12.6 mg/dL
== END 2024-09-07 12:23 | disposition home or self-care (01) ==
LOC: LAB 12:26
PROVIDERS: PCP Nurse Practitioner Family; Visit Provider Internal Medicine Cardiovascular Disease
DX: E78.5 Hyperlipidemia, unspecified (principal)
CPT/HCPCS: 36415; 80061

== ENCOUNTER 2024-09-25 07:05 | Outpatient (RCR) | payer MEDICARE, OTHER, SELFPAY ==
[2024-09-18 11:04] LABS: Hematocrit 33.7 % (42.0-54.0); Hemoglobin 11.7 g/dL (14.0-18.0); Mean Corpuscular HGB Conc 34.7 g/dL (29.9-35.2); Mean Corpuscular Hemoglobin 29.8 pg (25.9-34.0); Mean Corpuscular Volume 85.8 fL (80.0-94.0); Platelet Count 185 10^3/uL (150-450); Red Blood Count 3.93 10^6/uL (4.70-6.10); White Blood Count 5.5 10^3/uL (4.0-11.0)
[2024-09-18 11:28] LABS: Band Neutrophils Absolute 0.1 10^3/uL (0.0-0.3); Basophils Abs Manual 0.11 10^3/uL (0.00-0.10); Basophils Percent Manual 2.0 % (0.2-2.0); Eosinophils Absolute Manual 0.11 10^3/uL (0.00-0.70); Eosinophils Percent Manual 2.0 % (0.9-7.0); Lymphocytes Absolute Manual 0.49 10^3/uL (1.20-3.80); Lymphocytes Percent Manual 9.0 % (20.5-60.0); Monocytes Absolute Manual 0.71 10^3/uL (0.30-0.80); Monocytes Percent Manual 13.0 % (1.7-12.0); Segmented Neut Absolute Manual 4.01 10^3/uL (1.4-6.5); Segmented Neutrophils % Manual 73.0 (43.0-75.0)
[2024-09-18] MEDS: 0.9 % SODIUM CHLORIDE 250 ML 10 ML IV (11:30)
[2024-09-18 11:31] LABS: Alanine Aminotransferase 25 U/L (16-63); Albumin Globulin Ratio 0.8; Albumin Level 3.2 g/dL (3.4-5.0); Alkaline Phosphatase 130 U/L (46-116); Anion Gap 8.2; Aspartate Amino Transferase 25 U/L (15-37); Blood Urea Nitrogen 13.0 mg/dL (7.0-18.0); Calcium 9.0 mg/dL (8.5-10.1); Carbon Dioxide 25.9 mmol/L (21.0-32.0); Chloride 89 mmol/L (98-107); Estimated GFR (African America >60 (>=60 mL/min/1.73m^2); Estimated GFR (Non-African Ame >60 (>=60 mL/min/1.73m^2); Globulin 4.2 g/dL; Glucose 98 mg/dL (74-106); Magnesium 1.8 mg/dL (1.8-2.4); Potassium 5.1 mmol/L (3.5-5.1); TSH W/ REFLEX FT4 1.160 uIU/mL (0.358-3.740); Total Protein 7.4 g/dL (6.4-8.2)
[2024-09-18 11:35] LABS: Sodium 118 mmol/L (136-145)
[2024-09-18 13:01] VITALS: BP 103/66; PULSE 59; TEMP 36.8; O2SAT 98
--- NOTE | 2024-09-18 15:17 | PC.NURSE ---
[id number] Dr. Garber in and examines speaks with patient. Patient denies anyfood or drink at this time.
[2024-09-18 15:33] VITALS: BP 113/64; PULSE 63; TEMP 37.1; O2SAT 95
[2024-09-25 09:40] LABS: Hematocrit 34.0 % (42.0-54.0); Hemoglobin 12.0 g/dL (14.0-18.0); Immature Granulocytes Abs Auto 0.01 10^3/uL (0.00-0.03); Immature Granulocytes Pct Auto 0.2 % (0.0-0.5); Lymphocytes Absolute Auto 0.4 10^3/uL (1.2-3.8); Mean Corpuscular HGB Conc 35.3 g/dL (29.9-35.2); Mean Corpuscular Hemoglobin 30.7 pg (25.9-34.0); Mean Corpuscular Volume 87.0 fL (80.0-94.0); Platelet Count 177 10^3/uL (150-450); Red Blood Count 3.91 10^6/uL (4.70-6.10); White Blood Count 4.9 10^3/uL (4.0-11.0)
[2024-09-25 10:25] LABS: Anion Gap 15.2; Blood Urea Nitrogen 14.0 mg/dL (7.0-18.0); Calcium 9.2 mg/dL (8.5-10.1); Carbon Dioxide 21.9 mmol/L (21.0-32.0); Chloride 92 mmol/L (98-107); Estimated GFR (African America >60 (>=60 mL/min/1.73m^2); Estimated GFR (Non-African Ame >60 (>=60 mL/min/1.73m^2); Glucose 109 mg/dL (74-106); Potassium 5.1 mmol/L (3.5-5.1)
[2024-09-25 10:27] LABS: Sodium 124 mmol/L (136-145)
== END 2024-10-07 23:59 | disposition home or self-care (01) ==
LOC: HEMC 07:05
PROVIDERS: PCP Nurse Practitioner Family; Visit Provider Internal Medicine Hematology & Oncology
DX: Z51.12 Encounter for antineoplastic immunotherapy (principal); C34.12 Malignant neoplasm of upper lobe, left bronchus or lung; D64.9 Anemia, unspecified; D75.839 Thrombocytosis, unspecified; D72.829 Elevated white blood cell count, unspecified; D63.8 Anemia in other chronic diseases classified elsewhere; Z79.01 Long term (current) use of anticoagulants; C79.72 Secondary malignant neoplasm of left adrenal gland; I11.0 Hypertensive heart disease with heart failure; I50.20 Unspecified systolic (congestive) heart failure; Z86.711 Personal history of pulmonary embolism; F17.210 Nicotine dependence, cigarettes, uncomplicated; I26.99 Other pulmonary embolism without acute cor pulmonale; F10.90 Alcohol use, unspecified, uncomplicated; E87.8 Other disorders of electrolyte and fluid balance, not elsewhere classified; D18.09 Hemangioma of other sites
CPT/HCPCS: 36415; 80048; 80053; 82533; 83735; 84443; 85007; 85025; 85027; 96413; G0463; J9271

== ENCOUNTER 2024-10-08 00:44 | Outpatient (RCR) | payer MEDICARE, OTHER, SELFPAY | END 2024-11-06 15:44 | disposition home or self-care (01) | LOC: MM 00:44 | PROVIDERS: PCP Nurse Practitioner Family; Visit Provider Internal Medicine | DX: Z51.81 Encounter for therapeutic drug level monitoring (principal); Z79.01 Long term (current) use of anticoagulants; I26.99 Other pulmonary embolism without acute cor pulmonale ==

== ENCOUNTER 2024-10-15 14:25 | Outpatient (OUT) | payer MEDICARE, OTHER, SELFPAY ==
--- NOTE | 2024-10-15 15:30 | PE_ITS ---
The [address] [address] Patient Name: BOBBY GRAJEDA MRN: [id number] date: 1960 Sex: M Assigned Patient Location: PETCT Current Patient Location: Accession/Order Number: [id number] Exam Date: 10/15/2024 14:35 Report Date: 10/16/2024 09:23 At the request of: ROZINA PONCE MD Procedure: PET skull to mid thigh PET/CT WITH FUSION COMPARISON: 07/09/2024 CLINICAL DATA: Follow-up lung cancer Following the intravenous administration of 12.58 mCi of FDG, SPECT imaging in 3 planes was performed from the level the orbits through the brain. The patient's blood glucose level at the time of injection was 90 mg/dL. Spiral unenhanced CT was also performed for anatomic localization. The PET and CT images were fused. This CT exam was performed using one or more following dose reduction techniques: Automated exposure control, adjustment of the mA and/or kV according to patient size, or use of iterative reconstruction technique. NECK: No enlarged or hypermetabolic cervical lymph nodes are present. Paranasal sinus disease is noted. There is carotid artery plaque. CHEST: The hypermetabolic left hilar lymph node on the prior is no longer noted. No new enlarged or hypermetabolic mediastinal or hilar lymph nodes are currently visualized. There are some areas of mildly increased FDG uptake associated with the esophagus. Obstructive lung disease and scarring are noted at the lung apices. There is also a more masslike area with associated calcification at the left upper lobe. There is minor FDG uptake which is below threshold. There is still a 2.3 cm nodule at the posterior lateral left costophrenic angle which does not show associated increased FDG uptake. No developing nodularity or pulmonary hypermetabolism is noted. The thoracic aorta is ectatic. Bilateral gynecomastia is seen and there is slight increased FDG uptake associated with the nipples. ABDOMEN/PELVIS: No hypermetabolic hepatic lesions are identified. There is still a left adrenal mass measuring almost 5 cm in size, previously 7.6 cm. There is some residual patchy peripheral increased FDG uptake with maximum SUV 13.5. This is significantly improved. No enlarged or hypermetabolic abdominal lymph nodes are seen. There is still a mass or adenopathy at the right iliac fossa measuring approximately 5.2 cm in size. The thickened wall is decreasing in prominence and the central cystic/necrotic component is slightly larger. There is residual patchy peripheral increased FDG uptake which is improving since the comparison. Current residual maximum SUV is 15.7, previously 24.5. There is physiologic activity within urinary tract, stomach and bowel. There is prominent atherosclerotic disease. PET/PET skull to mid thigh IMPRESSION: RESOLUTION OF HYPERMETABOLIC LEFT HILAR LYMPH NODE. DECREASING SIZE AND FDG UPTAKE ASSOCIATED WITH A LEFT ADRENAL METASTASIS. IMPROVING HYPERMETABOLISM ASSOCIATED WITH A MASS AND/OR ADENOPATHY CANNOT THE RIGHT ILIAC FOSSA. Impression dictated by: Kasie Hayes M.D. 10/16/2024 9:23 AM Dictation Location: [place] [address] Electronically authenticated by: [id number] Y Date: 10/16/2024 09:23
--- OUTSIDE RECORDS SUMMARY | 2024-10-15 16:56 | XMS_ITS | CCD ---
Author Organization [facility] CliniSymd Care Team Providers Care Distribution Systems Superintendent Name Role Phone EDWIN ., SEN Attending Unavailable EDWIN ., SEN Admitting Unavailable KAREN, DR TREVINO Primary Care Unavailable COLLINS, DR ANNE Cornejo Consulting Unavailable YAMILA HUNTER Consulting Unavailable EDWIN ., SEN Consulting Unavailable CECILIO ., NICHOLE Attending Unavailable CECILIO ., NICHOLE Admana Unavailable HOUSE, DR TREVINO Primary Care Unavailable WEST, DR ANNE Cornejo Consulting Unavailable CECILIO ., NICHOLE Consulting Unavailable HOUSE, DR TREVINO Attending Unavailable HOUSE, DR WADE [...] Attending Unavailable HIGHLANDER, LAISHA Otto Consulting Unavailable House Sr., Wade Wolf Primary Care Provider Chinyere Candelaria Unavailable Jcarlos KISER, Jennifer Unavailable Chinyere Candelaria MD Unavailable ABBE, SUDISH Referring Unavailable HOUSE SR, WADE WOLF [facility] Unavai lable ABBE, SUDISH Referring Unavailable HOUSE SR, WADE WOLF [facility] Unavai lable HOUSE SR, WADE WOLF [facility] Care Unavai lable ABBE, SUDISH Referring Unavailable House Sr., Wade BULL Primary Care Prov ider House Sr., DO Wade P Primary Care Provider Jack Canchola DO Attending Provider Unavailab Jack Galvan Attending Unavailable Jack Canchola Admitting Unavailable Sarah Marte RD Unavailable [phone] Yadira Winslow MD Unavailable KOSTAS MORALES Attending Unavailable KOSTAS MORALES Attending Unavailable Nayla KISER, [facility]adira [facility] BENITEZ COLLADO Attending Unavailable MAURISIO MAX Attending Unavailable JOSE, EDUARDO T Referring Unavailable MEDINA SOLANO Referring Unavailabl e JOSE, EDUARDO T Referring Unavailable LEYLA OLIVIA Referring Unavailable ZORAIDA VIRAMONTESAR Admitting Unavailable QASIM VIRAMONTES Attending Unavailable JOSE, EDUARDO T Referring Unavailable JOSE, EDUARDO T Referring Unavailable JOSE, EDUARDO T Referring Unavailable JOSE, EDUARDO T Referring Unavailable DON MEJIA Attending Unavailable NAYLA, RUGEN MABALAY Primary Care Unavailable NAYLA, RUGEN MABALAY Primary Care Unavailable Cande SMITH Attending Unavailable Cande SMITH Referring Unavailable NAYLA, RUGEN MABALAY Primary Care Unavailable NAYLA, RUGEN MABALAY Primary Care Unavailable NAYLA, RUGEN MABALAY Primary Care Unavailable Cande SMITH Attending Unavailable NAYLA, RUGEN MABALAY Primary Care Unavailable DON MEJIA Attending Unavailable DON MEJIA Referring Unavailable HOUSE SR, WADE P Primary Care Unavailable NAYLA, RUGEN MABALAY Primary Care Unavailable Cande SMITH Attending Unavailable NAYLA, RUGEN MABALAY Primary Care Unavailable NAYLA, RUGEN MABALAY Primary Care Unavailable NAYLA, RUGEN MABALAY Primary Care Unavailable NAYLA, RUGEN MABALAY Primary Care Unavailable NAYLA, RUGEN MABALAY Primary Care Unavailable NAYLA, RUGEN MABALAY Primary Care Unavailable NAYLA, RUGEN MABALAY Primary Care Unavailable SARAH MARTE Attending Unavailabl e HOUSE SR, WADE P Primary Care Unavailable DON MEJIA Referring Unavailable HOUSE SR, WADE P Primary Care Unavailable DON MEJIA Attending Unavailable HOUSE SR, WADE P Primary Care Unavailable DON MEJIA Attending Unavailable DON MEJIA Referring Unavailable YADIRA WINSLOW Primary Care Unavailable DON MEJIA Attending Unavailable DON MEJIA Referring Unavailable YADIRA WINSLOW Primary Care Unavailable Medications Current Medications Medication Drug Class(es) Dates Sig (Normalized) Sig (Original) amLODIPine 5 mg oral tablet (19 sources) Dihydropyridine Calcium Channel Cesar Start: 03-21-2024 amLODIPine (NORVASC) 5 mg tablet Take 5 mg by mouth. 03/21/2024 Active calcium carbonate 600 mg oral capsule (20 sources) Start: 07-03-2024 calcium carbonate ([facility] Calcium) 600 MG tablet Indications: Vitamin D deficiency Take 1 tablet (600 mg) by mouth in the morning and 1 tablet (600 mg) at noon and 1 tablet (600 mg) in the evening. Take with meals. 300 tablet 2 07/03/2024 Active Start: 09-01-2023 calcium carbon ate ([facility] Calcium) 600 MG tablet Indications: Vitamin D deficiency Take 1 tablet (600 mg) by mouth in the morning and 1 tablet (600 mg) at noon and 1 tablet (600 mg) in the evening. Take with meals. 300 tablet 2 09/01/2023 Active calcium carbonat e (CALCIUM 500 ORAL) Take by mouth. Active calcium carbonat e (CALCIUM 500 ORAL) Take by mouth. 0 Active Comment on above: Take by mouth. dexamethasone 1 mg/ml / neomycin 3.5 mg/ml / polymyxin b 05600 unt/ml ophthalmic suspension (1 source) Aminoglycoside Antibacterial, Polymyxin-class Antibacterial, Corticosteroid Start: 07-31-19 25 End: 08-07-19 25 neomycin-polymyxin- dexAMETHasone (Maxitrol) 0.1 % ophthalmic suspension Indications: Hordeolum externum, unspecified laterality Administer 1 drop into both eyes in the morning and 1 drop at noon and 1 drop in the evening and 1 drop before bedtime. Do all this for 7 days. Apply to affected eye. 5 mL 07/30/2024 08/06/2024 Active furosemide 40 mg oral tablet (4 sources) Loop Diuretic Start: 09-07-19 24 take 1 tablet by mouth once daily furosemide (Lasix) 40 MG tablet Indications: Hyperosmolar hyponatremia Take 1 tablet (40 mg) by mouth Daily 90 tablet 2 09/07/2023 Active lisinopril 10 mg oral tablet (1 source) Angiotensin Converting Enzyme Inhibitor Start: 05-24-19 take 1 tablet by mouth once daily Lisinopril 10 mg Tablet Active 10 MG PO Daily May 23, 2019 11:00pm magnesium oxide 400 mg oral tablet (20 sources) Start: 11-16-19 take 1 tablet by mouth in the morning, then take 1 tablet by mouth in the evening, then take 1 tablet by mouth at bedtime magnesium oxide (Mag-Ox) 400 (240 Mg) MG tablet Indications: Heart failure, unspecified HF chronicity, unspecified heart failure type (HCC) Take 1 tablet (400 mg) by mouth in the morning and 1 tablet (400 mg) in the evening and 1 tablet (400 mg) before bedtime. 90 tablet 11 11/16/2023 Active Start: 01-01-2023 take 1 tablet by haresh th three times daily magnesium oxide (MAG-OX) 400 mg (241.3 mg magnesium) tablet Take 1 tablet by mouth three times a day. 01/01/2023 Active Comment on above: Take 1 tablet by haresh three times a day. 24 hr metoprolol succinate 50 mg extended release oral tablet (20 sources) beta-Adrenergic Cesar Start: 09-04-2022 take 1 tablet by mouth every twelve hours metoprolol succinate ER (TOPROL XL) 50 mg 24 hr tablet Take 1 tablet by mouth every 12 hours. 09/04/2022 Active take 1 tablet by mouth once floyd y metoprolol succinate XL (Toprol-XL) 50 MG 24 hr tablet Take 50 mg by mouth Daily Active Comment on above: Take 1 tablet by haresh every 12 hours. 24 hr nicotine 0.875 mg/hr transdermal system (19 sources) Cholinergic Nicotinic Agonist Start: 02-23-19 nicotine (NICODERM) 21 mg/24 hr 02/23/2023 Active omeprazole 20 mg delayed release oral capsule (20 sources) Proton Pump Inhibitor Start: 09-01-19 omeprazole (PRILOSEC) 20 mg capsule Take 20 mg by mouth. 09/01/2023 Active microencapsulated potassium chloride 10 meq extended release oral tablet (20 sources) Start: 09-20-19 End: 09-20-19 take 1 tablet by mouth in the morning, then take 1 tablet by mouth in the evening, then take 1 tablet by mouth at bedtime potassium chloride CR (Klor-Con M10) 10 MEQ ER tablet Indications: Hypokalemia Take 1 tablet (10 mEq) by mouth in the morning and 1 tablet (10 mEq) in the evening and 1 tablet (10 mEq) before bedtime. Do not crush or chew.. 270 tablet 3 09/20/2023 09/19/2024 Active Start: 12-04-2022 take 10 mEq by mouth once floyd y potassium chloride (KLOR-CON M10 ORAL) Take 10 mEq by mouth once daily. 12/04/2022 Active Comment on above: Take 10 mEq by mouth once daily. spironolactone 25 mg oral tablet (20 sources) Aldosterone Antagonist Start: 09-01-2023 spironolactone (ALDACTONE) 25 mg tablet Take 12.5 mg by mouth. 09/01/2023 Active Start: 09-01-2023 take 1 tablet by haresh th once daily spironolactone (Aldactone) 25 MG tablet Indications: Lung nodule Take 1 tablet (25 mg) by mouth Daily 100 tablet 3 09/01/2023 Active warfarin sodium 5 mg oral tablet (19 sources) Vitamin K Antagonist Start: 03-21-2024 take 1 tablet by mouth once daily warfarin (COUMADIN) 5 mg tablet 5mg by mouth once daily. 03/21/2024 Active Completed/Discontinued Medications Medication Drug Class(es) Dates Sig (Normalized) Sig (Original) B-complex with vitamin C (VITAMIN B COMPLEX-C ORAL) (1 source) End: 04-18-2023 B-complex with vitamin C (VITAMIN B COMPLEX-C ORAL) Take by mouth. 0 04/18/2023 Discontinued (Other) Comment on above: Take by mouth. folic acid 1 mg oral tablet (10 sources) Start: 08-01-2022 End: 05-03-2024 take 1 tablet by mouth once daily folic acid 1 mg tablet Take 1 mg by mouth once daily. 08/01/2022 04/30/2024 Discontinued (Discontinued by another Health Care Provider) Comment on above: Take 1 mg by mouth o nce daily. hydroCHLOROthiazide 25 mg / lisinopril 20 mg oral tablet (4 sources) Thiazide Diuretic, Angiotensin Converting Enzyme Inhibitor Start: 05-22-2019 End: 05-03-2024 take 1 tablet by mouth once daily Lisinopril-Hydroch lorothiazide 20-25 mg Tablet Discontinued 1 TAB PO Daily May 21, 2019 11:00pm May 24, 2019 1:43pm ibuprofen 200 mg oral tablet (3 sources) Nonsteroidal Anti-inflammatory Drug Start: 02-15-2024 End: 05-03-2024 take 1 tablet by mouth every eight hours for pain ibuprofen 200 MG tablet Indications: Primary adenocarcinoma of left lung (CMS/HCC) Take 1 tablet (200 mg) by mouth every 8 (eight) hours if needed for mild pain 300 tablet 3 02/15/2024 05/03/2024 Discontinued (Therapy completed) iv contrast (will be provided with radiology [...] in the CT contrast administration guidelines link. pantoprazole 40 mg delayed release oral tablet (7 sources) Proton Pump Inhibitor Start: 12-05-19 End: 05-01-19 take 1 tablet by mouth once daily pantoprazole DR (PROTONIX) 40 mg tablet Take 40 mg by mouth once daily. 12/04/2022 04/30/2024 Discontinued (Discontinued by Patient) Comment on above: Take 40 mg by mouth once daily. thiamine 100 mg oral tablet (4 sources) Start: 05-24-19 End: 05-04-19 take 1 tablet by mouth once daily thiamine (Vitamin B-1) 100 MG tablet Indications: Alcohol withdrawal syndrome without complication (CMS/HCC) Take 1 tablet (100 mg) by mouth Daily 90 tablet 3 09/08/2023 05/03/2024 Discontinued (Therapy completed) THIAMINE HCL, VITAMIN B1, ORAL (7 sources) Start: 05-24-19 End: 05-01-19 THIAMINE HCL, VITAMIN B1, ORAL Daily 05/24/2019 04/30/2024 Discontinued (Discontinued by Patient) Start: 05-24-2019 THIAMINE HCL, VITAMIN B1, ORAL Daily 05/24/2019 Active Start: 05-24-2019 THIAMINE HCL, VITAMIN B1, ORAL Daily 0 05/24/2019 Active Comment on above: Daily Problems Active Problems Problem Classification Problem Date Documented Da te Episodic/Chronic Alcohol-related disorders (10 sources) Alcohol dependence, uncomplicated; Translations: [Alcohol withdrawal syndrome] Onset: 06-23-2021 01-19-2023 Chronic Comment on above: Problem List clean-u p per request of Phys. EHR Cmte Cancer of bronchus; lung (20 sources) Malignant tumor of lung; Translations: [Malignant neoplasm of unspecified part of left bronchus or lung] Onset: 08-19-2022 09-09-2022 Chronic Cancer of bronchus; lung (1 source) History of malignant neoplasm of thoracic cavity structure; Translations: [Personal history of other malignant neoplasm of bronchus and lung] 12-23-2022 Episodic Chronic obstructive pulmonary disease and bronchiectasis (2 sources) Pulmonary emphysema; Translations: [Emphysema, unspecified] 05-03-2024 Chronic Congestive heart failure; nonhypertensive (4 sources) Heart failure; Translations: [Heart failure, unspecified] Onset: 04-09-2024 05-03-2024 Chronic Deficiency and other anemia (2 sources) 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; Translations: [Protein deficiency anemia] 05-03-2024 Episodic Disorders of lipid metabolism (4 sources) Mixed hyperlipidemia; Translations: [Hyperlipidemia, unspecified] Onset: 04-09-2024 Chronic E Codes: Natural/environment (1 source) Other and unspecified overexertion or strenuous movements or postures, initial encounter; Translations: [OTH AND UNS OVREXRT/STRN MVMT/POS INT] Onset: 03-24-2022 Episodic Essential hypertension (10 sources) Essential (primary) hypertension; Translations: [Elevated blood pressure] Onset: 06-18-2021 Chronic Fracture of lower limb (8 sources) Displaced fracture of second metatarsal bone, right foot, subsequent encounter for fracture with routine healing; Translations: [Displaced fracture of third metatarsal bone, right foot, subsequent encounter for fracture with routine healing] Onset: 03-24-2022 Episodic Hypertension with complications and secondary hypertension (2 sources) Hypertensive heart disease without heart failure; Translations: [Hypertensive heart disease without heart failure] Onset: 04-09-2024 Chronic Inflammation; infection of eye (except that caused by tuberculosis or sexually transmitteddisease) (1 source) External hordeolum; Translations: [Hordeolum externum unspecified eye, unspecified eyelid] 07-30-2024 Episodic Neoplasms of unspecified nature or uncertain behavior (3 sources) Neoplasm of lung ; Translations: [Neoplasm of unspecified behavior of respiratory system] Onset: 07-27-2024 03-11-2023 Episodic Other aftercare (1 source) Other [place] [facility] (current) drug therapy; Translations: [OTH 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 CURRENT DRUG THERAPY] Onset: 03-24-2022 Episodic Other connective tissue disease (4 sources) Pain in right foot; Translations: [PAIN IN RIGHT FOOT] Onset: 05-26-2022 Episodic Other endocrine disorders (1 source) Mass of left adrenal gland; Translations: [Other specified disorders of adrenal gland] 04-19-2024 Chronic Other endocrine disorders (3 sources) Other specified disorders of adrenal gland; Translations: [Other specified disorders of adrenal gland] Onset: 03-13-2024 Chronic Other nutritional; endocrine; and metabolic disorders (2 sources) Hypomagnesemia; Translations: [Hypomagnesemia] 05-03-2024 Chronic Other screening for suspected conditions (not mental disorders or infectious disease) (2 sources) Patient encounter status; Translations: [Encounter for screening for other suspected endocrine disorder] 05-03-2024 Episodic Pulmonary heart disease (4 sources) Chronic pulmonary embolism; Translations: [Pulmonary hypertension, unspecified] Onset: 04-09-2024 Chronic Pulmonary heart disease (4 sources) Personal history of pulmonary embolism; Translations: [Other pulmonary embolism without acute cor pulmonale] Onset: 03-13-2024 Episodic Secondary malignancies (8 sources) Secondary malignant neoplasm of left adrenal gland; Translations: [Secondary malignant neoplasm of adrenal gland] Onset: 08-07-2024 04-30-2024 Chronic Substance-related disorders (1 source) Nicotine dependence, cigarettes, uncomplicated; Translations: [NICOTINE DEPEND CIGARETTES UNCOMP] Onset: 03-24-2022 Chronic Unclassified (1 source) Secondary malignancy of left adrenal gland Onset: 08-22-2024 Past or Other Problems Problem Classification Problem Date Documented Da te Episodic/Chronic Fluid and electrolyte disorders (14 sources) Hypo-osmolality and hyponatremia; Translations: [Hyponatremia] Onset: 06-23-2021 01-19-2023 Episodic Comment on above: Problem List clean-u p per request of Phys. EHR Cmte Intrauterine hypoxia and asphyxia (4 sources) Metabolic acidosis; Translations: [Metabolic acidemia, unspecified] Onset: 09-01-2023 09-01-2023 Episodic Malaise and fatigue (3 sources) Weakness; Translations: [WEAKNESS] Onset: 06-19-2021 Episodic Other liver diseases (5 sources) Elevated liver enzymes level; Translations: [Abnormal levels of other serum enzymes] Onset: 09-01-2023 01-19-2023 Episodic Comment on above: Problem List clean-u p per request of Phys. EHR Cmte Other lower respiratory disease (4 sources) Nodule of lung; Translations: [Solitary pulmonary nodule] Onset: 08-18-2022 09-01-2023 Episodic Other lower respiratory disease (2 sources) Solitary pulmonary nodule; Translations: [Solitary pulmonary nodule] Onset: 08-18-2022 Episodic Other nervous system disorders (1 source) Tremor, unspecified; Translations: [TREMOR UNSPECIFIED] Onset: 06-23-2021 Episodic Pneumonia (except that caused by tuberculosis or sexually transmitted disease) (2 sources) Pneumonia, unspecified organism; Translations: [Pneumonia, unspecified organism] Onset: 03-13-2024 Episodic Residual codes; unclassified (5 sources) Tobacco use and exposure - finding; Translations: [Tobacco use] Onset: 08-19-2022 09-01-2023 Episodic Residual codes; unclassified (1 source) Tobacco use; Translations: [Tobacco use] Onset: 04-09-2024 Episodic Syncope (5 sources) Syncope; Translations: [Syncope and collapse] Onset: 09-01-2023 01-19-2023 Episodic Comment on above: Problem List clean-u p per request of Phys. EHR Cmte Results Test Name Value Interpretation Reference Range Facility Orders Onlyon 09-10-2024 Orders Only [id number] Brigette Grajeda 1960 M Date Provider Department Center 09/10/2024 [id number], KASIA Gibson Family History Family history unknown: Yes Normal [facility] Office Visiton 09-07-2024 Follow-up visit [id number] Brigette Grajeda 1960 M Date Provider Department Center 09/07/2024 [id number] Family History Family history unknown: Yes Level of Service:95983 [place] OFFICE/OUTPATIENT ESTABLISHED MOD MDM 30 MIN Reason for Visit and Comments: Follow-up [[id number]] [facility] CNOVon 08-29-2024 CNOV Office Visit (RADTSA ) -------- JARET GRAJEDA ([id number]) 1960 M Date Time Provider Department 08/29/24 1:00 PM Cande SMITH During your visit today, we recorded the following information about you: Temperature Pulse Respiration Blood pressure 98 degrees 94/minute 18/minute 134/81 Weight 62.6 kg Cande Smith MD 08/29/2024 3:45 PM Signed Radiation Oncology - On Treatment Review (OTR) Note PATIENT NAME: Jaret Grajeda PATIENT DIAGNOSIS: Stage IB, [id number], non-small cell lung cancer (adenocarcinoma) arising from [...] 134/81 Pulse: 94 Resp: 18 Temp: 36.7 ?C (98 ?F) SpO2: 99% Weight: 62.6 kg (138 lb 0.1 oz) KPS: 90 General Appearance: Alert and oriented. No acute distress. Radiation dermatitis: No IMAGING/LAB RESULTS: None Treatment chart checked: Yes Patient treatment site reviewed and verified:Yes Port films reviewed and current:Yes Medications started: None ASSESSMENT/PLAN: Patient doing well. Chart and imaging reviewed. Continue radiation as outlined. Cande Smith MD Allergies As of Date: 08/29/2024 (No Known Allergies) Date Reviewed: 08/29/2024 Reviewed by: Lili Martinez, RN - Fully Assessed Reason for Visit: Radiotherapy On-treatment Visit [1722] Primary Visit Diagnosis:Secondary malignancy of left adrenal gland (HCC) [C79.72] Prescriptions as of 08/29/2024 - amLODIPine (NORVASC) 5 mg tablet Take 5 mg by mouth. - omeprazole (PRILOSEC) 20 mg capsule Take 20 mg by mouth. - spironolactone (ALDACTONE) 25 mg tablet Take 12.5 mg by mouth. - warfarin (COUMADIN) 5 mg tablet 5mg by mouth once daily. - calcium carbonate (CALCIUM 500 ORAL) Take by mouth. - potassium chloride (KLOR-CON M10 ORAL) Take 10 mEq by mouth once daily. - magnesium oxide (MAG-OX) 400 mg (241.3 mg magnesium) tablet Take 1 tablet by mouth three times a day. - nicotine (NICODERM) 21 mg/24 hr - metoprolol succinate ER (TOPROL XL) 50 mg 24 hr tablet Take 1 tablet by mouth every 12 hours. Problem List As Of Date: 08/29/2024 (None) Encounter Status:Closed by Cande SMITH on 08/29/24 [facility] CNOVon 08-22-2024 CNOV Office Visit (RADTSA ) -------- JARET GRAJEDA ([id number]) 1960 M Date Time Provider Department 08/22/24 11:00 AM Cande SMITH RADCHINMAY During your visit today, we recorded the following information about you: Temperature Pulse Respiration Blood pressure 97.5 degrees 88/minute 16/minute 134/86 Cande Smith MD 08/22/2024 1:49 PM Signed Radiation Oncology - On Treatment Review (OTR) Note PATIENT NAME: Jaret Grajeda PATIENT DIAGNOSIS: Stage IB, [id number], non-small cell lung cancer (adenocarcinoma) arising from the left upper lobe of the lung with recurrence of metastatic disease. COURSE: palliative AREA TREATED: Left Hilar Lung CURRENT DOSE: 300 cGy in 1 fx PLANNED DOSE: 3000 cGy in 10 fx AREA TREATED: Left Adrenal CURRENT DOSE: 300 cGy in 1 fx PLANNED DOSE: 3000 cGy in 10 fx AREA TREATED: Right Pelvic Mass CURRENT DOSE: 300 cGy in 1 fx PLANNED DOSE: 3000 cGy in 10 fx SUBJECTIVE: No new issues, here to start radiation. EXAM: 08/22/24 1112 BP: 134/86 BP Site: Left Arm BP Position: Sitting BP Cuff Size: Regular Adult Pulse: 88 Resp: 16 Temp: 36.4 ?C (97.5 ?F) TempSrc: Temporal SpO2: 100% KPS: 90 General Appearance: Alert and oriented. No acute distress. Radiation dermatitis: No IMAGING/LAB RESULTS: None Treatment chart checked: Yes Patient treatment site reviewed and verified:Yes Port films reviewed and current:Yes Medications started: None ASSESSMENT/PLAN: Patient starting radiation today. Plan of care and expectations again reviewed. Plan, MU calculations and qa report reviewed for each treatment site. Initial imaging including cone beam ct and verification reviewed and approved for each treated site. First treatment given. Continue radiation as prescribed. 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 - omeprazole (PRILOSEC) 20 mg capsule Take 20 mg by mouth. - spironolactone (ALDACTONE) 25 mg tablet Take 12.5 mg by mouth. - warfarin (COUMADIN) 5 mg tablet 5mg by mouth once daily. - calcium carbonate (CALCIUM 500 ORAL) Take by mouth. - potassium chloride (KLOR-CON M10 ORAL) Take 10 mEq by mouth once daily. - magnesium oxide (MAG-OX) 400 mg (241.3 mg magnesium) tablet Take 1 tablet by mouth three times a day. - nicotine (NICODERM) 21 mg/24 hr - metoprolol succinate ER (TOPROL XL) 50 mg 24 hr tablet Take 1 tablet by mouth every 12 hours. Problem List As Of Date: 08/22/2024 (None) Encounter Status:Closed by Cande SMITH on 08/22/24 [facility] JARET GRAJEDA ([id number]) 1960 M Date Time Provider Department 08/07/24 10:45 AM NURSE DURAN ANDREWS During your visit today, we recorded the following information about you: Allergies As of Date: 08/07/2024 (No Known Allergies) Date Reviewed: 07/27/2024 Reviewed by: Cathy Jovel RN - Fully Assessed Primary Visit Diagnosis:Secondary malignancy of left adrenal gland (HCC) [C79.72] Other Visit Diagnosis: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) [C34.12] Prescriptions as of 08/07/2024 - amLODIPine (NORVASC) 5 mg tablet Take 5 mg by mouth. - omeprazole (PRILOSEC) 20 mg capsule Take 20 mg by mouth. - spironolactone (ALDACTONE) 25 mg tablet Take 12.5 mg by mouth. - warfarin (COUMADIN) 5 mg tablet 5mg by mouth once daily. - calcium carbonate (CALCIUM 500 ORAL) Take by mouth. - potassium chloride (KLOR-CON M10 ORAL) Take 10 mEq by mouth once daily. - magnesium oxide (MAG-OX) 400 mg (241.3 mg magnesium) tablet Take 1 tablet by mouth three times a day. - nicotine (NICODERM) 21 mg/24 hr - metoprolol succinate ER (TOPROL XL) 50 mg 24 hr tablet Take 1 tablet by mouth every 12 hours. Problem List As Of Date: 08/07/2024 (None) Encounter Status:Closed by LILI MARTINEZ on 08/07/24 [facility] Annalisa 08-06-2024 CNPN Telephone (RADTSA) -------- JARET GRAJEDA ([id number]) 1960 M Date Time Provider Department 08/06/24 DON MEJIA During your visit today, we recorded the following information about you: Lili Martinez RN 08/06/2024 12:19 PM Signed Erick with Dr. Garber's office called requesting Dr. Mejia's most recent office note. He also said Bakari is scheduled for Keytruda tomorrow. Bakari called as well stating he is scheduled for both SIM with Dr. Mejia and Keytruda at [facility] tomorrow. He states he is not doing both and would like to reschedule one or the other. I called and spoke with Erick at Dr. Garber's office and he will send a message to Dr. Garber asking when to reschedule Bakari's follow up and Keytruda. Bakari notified of the above and to keep his SIM appt 08/07/24 at 1045. He denies questions at this time. Lili Martinez RN Allergies As of Date: 08/06/2024 (No Known Allergies) Date Reviewed: 07/27/2024 Reviewed by: Cathy Jovel, CE - Fully Assessed Reason for Visit: Patient Update [1234] Appointment [186] Prescriptions as of 08/06/2024 - amLODIPine (NORVASC) 5 mg tablet Take 5 mg by mouth. - omeprazole (PRILOSEC) 20 mg capsule Take 20 mg by mouth. - spironolactone (ALDACTONE) 25 mg tablet Take 12.5 mg by mouth. - warfarin (COUMADIN) 5 mg tablet 5mg by mouth once daily. - calcium carbonate (CALCIUM 500 ORAL) Take by mouth. - potassium chloride (KLOR-CON M10 ORAL) Take 10 mEq by mouth once daily. - magnesium oxide (MAG-OX) 400 mg (241.3 mg magnesium) tablet Take 1 tablet by mouth three times a day. - nicotine (NICODERM) 21 mg/24 hr - metoprolol succinate ER (TOPROL XL) 50 mg 24 hr tablet Take 1 tablet by mouth every 12 hours. Problem List As Of Date: 08/06/2024 (None) Encounter Status:Closed by LILI MARTINEZ on 08/06/24 [facility] CNOVon 07-27-2024 CNOV Office Visit (RADTSA ) -------- JARET GRAJEDA ([id number]) 1960 M Date Time Provider Department 07/27/24 1:00 PM DON MEJIA During your visit today, we recorded the following information about you: Temperature Pulse Respiration Blood pressure 97.9 degrees 98/minute 16/minute 118/76 Weight 60.4 kg Don Mejia MD 08/13/2024 11:38 PM Signed Radiation Oncology - Follow Up Note PATIENT NAME: Jaret Grajeda PATIENT DIAGNOSIS/PATIENT IDENTIFICATION: Mr. Grajeda is a 64-year-old gentleman diagnosed with a Stage IB, [id number], non-small cell lung cancer (adenocarcinoma) arising from [...] negative at stations 2L and 7. He completed a course of SBRT to the left upper lobe lung lesion on 03/07/2023 (5000 cGy delivered in 4 fractions). Repeat PET/CT from 04/19/2024 noted uptake in a left adrenal mass as well as a right pelvic sidewall mass and he proceeded to immunotherapy (Keytruda) with Dr. Garber. INTERVAL HISTORY: Since his last visit, he had repeat imaging with PET/CT on 07/09/2024 which noted response in the left adrenal lesion however increased size of a suspected left hilar lymph node as well as a right pelvic sidewall mass and no new areas concerning for disease. He is referred back today to the radiation medicine clinic for consideration of additional radiation therapy to his areas of persistent disease. ALLERGIES ALLERGIES No Known Allergies MEDICATIONS: Current Outpatient Medications: amLODIPine (NORVASC) 5 mg tablet omeprazole (PRILOSEC) 20 mg capsule spironolactone (ALDACTONE) 25 mg tablet warfarin (COUMADIN) 5 mg tablet calcium carbonate (CALCIUM 500 ORAL) potassium chloride (KLOR-CON M10 ORAL) magnesium oxide (MAG-OX) 400 mg (241.3 mg magnesium) tablet nicotine (NICODERM) 21 mg/24 hr metoprolol succinate ER (TOPROL XL) 50 mg 24 hr tablet PHYSICAL EXAM: GENERAL: Middle-age gentleman sitting in chair in no acute distress. VITALS: BP 118/76 Pulse 98 Temp 97.9 Resp 16 Wt 133 lb 2.5 oz (60.4kg) SpO2 100% KPS: 80 HEENT: NC/AT, anicteric sclera HEART: S1S2 LUNGS: non-labored breathing ABDOMEN: soft MUSCULOSKELETAL: no peripheral edema, moves all extremities. NEURO: no focal deficit; AANDO X3. RADIOLOGIC DATA: PET/CT (07/09/2024) IMPRESSION: Mr. Grajeda is a 64-year-old gentleman diagnosed with a Stage IB, [id number], non-small cell lung cancer (adenocarcinoma) arising from [...] negative at stations 2L and 7. He completed a course of SBRT to the left upper lobe lung lesion on 03/07/2023 (5000 cGy delivered in 4 fractions). Repeat PET/CT from 04/19/2024 noted uptake in a left adrenal mass as well as a right pelvic sidewall mass and he proceeded to immunotherapy (Keytruda) with Dr. Garber. He has had mixed response on immunotherapy seen on updated PET/CT from 07/09/2024 showing persistent disease in the left hilum, left adrenal gland and right pelvic sidewall with no new areas of concern. The patient has declined chemotherapy wishes to remain on immunotherapy which she has been tolerating well. He is referred today to the radiation medicine clinic for consideration of radiation therapy to the areas of persistent disease for local control. I spent time with the patient and his family in decision making and discussion regarding the indications for, logistics of, and toxicity of radiation therapy in this oligometastatic setting. Multiple questions were answered as they arose including a discussion of the mechanism of action of radiation therapy as well as potential causes for normal tissue toxicity. Based upon this discussion, informed consent was obtained, and we agreed to the following: RECOMMENDATIONS: 1. Given the patient's wishes to remain on immunotherapy and the lack of new areas of disease, it would be reasonable to offer a course of palliative radiation therapy to the areas of persistent disease in the left chest, left adrenal gland, right pelvic sidewall for local control. 2. He will be scheduled to return to clinic for CT simulation to begin treatment planning. 3. He will follow-up with Dr. Garber as scheduled for continued evaluation and systemic therapy recommendations. The p (more content not included)... Normal [facility] 07-27-2024 CNPN Telephone (RADTSA) -------- JARET GRAJEDA ([id number]) 1960 M Date Time Provider Department 07/27/24 DNO MEJIA During your visit today, we recorded the following information about you: Cathy Jovel RN 07/27/2024 1:58 PM Addendum Please schedule for pt: Rad Ed Today Return for Sim Treating L Adrenal Gland Right Pelvis Left Chest Plan 10-15Fx IV Contrast and Pancrease Protocol Oral Contrast Consent is signed. Will need nurse visit for IV Start CE Charles Deidre 07/30/2024 12:59 PM Signed Rad Ed added for Tuesday. ALBA Gonzales Courtney, RT(R) 07/31/2024 2:04 PM Signed Sim scheduled for 08/07/24 at 11:00am PSS-please schedule nurse visit for 10:45 same day for IV start Notify patient of appointment and to arrive at 10:30 Feliciajazmin YeboahRT(R)(Ebony Luque 07/31/2024 2:24 PM Signed Nurse visit for IV start has been added. I called and spoke to Bakari and confirmed his SIM appt on 08/07/24 with an arrival of 10:30 AM Ebony Patrick PSS Allergies As of Date: 07/27/2024 (No Known Allergies) Date Reviewed: 07/27/2024 Reviewed by: Cathy Jovel, RN - Fully Assessed Reason for Visit: Future Appointment [256] Prescriptions as of 07/31/2024 - amLODIPine (NORVASC) 5 mg tablet Take 5 mg by mouth. - omeprazole (PRILOSEC) 20 mg capsule Take 20 mg by mouth. - spironolactone (ALDACTONE) 25 mg tablet Take 12.5 mg by mouth. - warfarin (COUMADIN) 5 mg tablet 5mg by mouth once daily. - calcium carbonate (CALCIUM 500 ORAL) Take by mouth. - potassium chloride (KLOR-CON M10 ORAL) Take 10 mEq by mouth once daily. - magnesium oxide (MAG-OX) 400 mg (241.3 mg magnesium) tablet Take 1 tablet by mouth three times a day. - nicotine (NICODERM) 21 mg/24 hr - metoprolol succinate ER (TOPROL XL) 50 mg 24 hr tablet Take 1 tablet by mouth every 12 hours. Problem List As Of Date: 07/27/2024 (None) Encounter Status:Closed by CATHY JOVEL on 07/31/24 [facility] Abstracton 07-23-2024 Abstract [id number] Brigette Grajeda 1960 Date Provider Department Center 07/23/2024 [facility] Family History Family history unknown: Yes Normal [facility] Annalisa 07-18-2024 DEYSIN Telephone (RADTSA) -------- NICCIJARET ([id number]) 1960 M Date Time Provider Department 07/18/24 DON MEJIA During your visit today, we recorded the following information about you: Lili Martinez RN 07/18/2024 11:05 AM Signed PSS: Please schedule est patient new problem appt with Dr. Mejia-metastatic lung cancer. thanks CE Martins Jodi 07/18/2024 12:54 PM Signed LM for patient to call back and schedule Jazlyn Moore 07/19/2024 3:17 PM Signed Spoke with Bakari, he is scheduled for Tuesday07/27/24. ALBA Gonzales Allergies As of Date: 07/18/2024 (No Known Allergies) Date Reviewed: 04/26/2024 Reviewed by: Cathy Jovel RN - Fully Assessed Reason for Visit: Appointment [186] Prescriptions as of 07/20/2024 - amLODIPine (NORVASC) 5 mg tablet Take 5 mg by mouth. - omeprazole (PRILOSEC) 20 mg capsule Take 20 mg by mouth. - spironolactone (ALDACTONE) 25 mg tablet Take 12.5 mg by mouth. - warfarin (COUMADIN) 5 mg tablet 5mg by mouth once daily. - calcium carbonate (CALCIUM 500 ORAL) Take by mouth. - potassium chloride (KLOR-CON M10 ORAL) Take 10 mEq by mouth once daily. - magnesium oxide (MAG-OX) 400 mg (241.3 mg magnesium) tablet Take 1 tablet by mouth three times a day. - nicotine (NICODERM) 21 mg/24 hr - metoprolol succinate ER (TOPROL XL) 50 mg 24 hr tablet Take 1 tablet by mouth every 12 hours. Problem List As Of Date: 07/18/2024 (None) Encounter Status:Closed by LILI MARTINEZ on 07/20/24 Normal [facility] CBC (H/H, RBC, INDICES, WBC, PLT)on 05-05-2024 Erythrocyte distribution width (RBC) [Ratio] 13.2 % Normal 11.0-15.0 [facility] Comment on above: Performed By: #### 6 62, 4043, 56093 #### [facility] of [address], [address] [place] [address] Dry Transfer Man: Luis Gongora MD Hematocrit (Bld) [Volume fraction] 40.1 % Normal 38.5-50.0 [facility] Comment on above: Performed By: #### 6 1758, 10970 #### [facility] of [address], [address] [place] [address] Dry Transfer Man: Luis Gongora MD Hemoglobin (Bld) [Mass/Vol] 13.0 g/dL Low 13.2-17.1 [facility] Comment on above: Performed By: #### 1758, #### [facility] of [place] [address] Dry Transfer Man: Luis Gongora MD MCH (RBC) [Entitic mass] 28.1 pg Normal 27.0-33.0 [facility] Comment on above: Performed By: #### 6 1758, #### [facility] of [address], [address] [place] [address] Dry Transfer Man: Luis Gongora MD MCHC (RBC) [Mass/Vol] 32.4 g/dL Normal 32.0-36.[address] [facility] Comment on above: Result Comment: For adults, a slight decrease in the calculated MCHC value (in the range of 30 to 32 g/dL) is most likely not clinically significant; however, it should be interpreted with caution in correlation with other red cell parameters and the patient's clinical condition. Performed By: #### 6 1758, 79050 #### [facility] of [address], [address] [place] [address] Dry Transfer Man: Luis Gongora MD MCV (RBC) [Entitic vol] 86.8 fL Normal 80.0-100.0 [facility] Comment on above: Performed By: #### 1758, 80972 #### [facility] [address], [address] [place] [address] Dry Transfer Man: Luis Gongora MD Platelet mean volume (Bld) [Entitic vol] 9.5 fL Normal 7.5-12.5 [facility] Comment on above: Performed By: #### 6 , 1758, 16268 #### [facility] of [address], [address] [place] [address] Dry Transfer Man: Luis Gongora MD Platelets (Bld) [#/Vol] 484 10*3/uL High 140-400 [facility] Comment on above: Performed By: #### 6 , 1758, 75200 #### [facility] of [address], [address] [place] [address] Dry Transfer Man: Luis Gongora MD RBC (Bld) [#/Vol] 4.62 10*6/uL Normal 4.20-5.80 [facility] Comment on above: Performed By: #### 6 , 1758, 60839 #### [facility] of [address], [address] [place] [address] Dry Transfer Man: Luis Gongora MD WBC (Bld) [#/Vol] 9.2 10*3/uL Normal 3.8-10.8 [facility] Comment on above: Performed By: #### 6 , 1758, 24646 #### [facility] of [place] [address] Dry Transfer Man: Luis Gongora MD [facility] 05-05-2024 Albumin [Mass/Vol] 3.9 g/dL Normal 3.6-5.1 [facility] Comment on above: Performed By: #### 6 , 1758, 86650 #### [facility] of [place] [address] Dry Transfer Man: Luis Gongora MD Albumin/Globulin [Mass ratio] 1.0 {ratio} Normal 1.0-2.5 [facility] Comment on above: Performed By: #### 6 , 1758, 42407 #### [facility] of [place] [address] Dry Transfer Man: Luis Gongora MD ALP [Catalytic activity/Vol] 141 U/L Normal 35-144 [facility] Comment on above: Performed By: #### 6 , 1758, 94213 #### [facility] [place] [address] Dry Transfer Man: Luis Gongora MD ALT [Catalytic activity/Vol] 22 U/L Normal 9-46 [facility] Comment on above: Performed By: #### 6 , 1758, 49303 #### [facility] of [address], [address] [place] [address] Dry Transfer Man: Luis Gongora MD AST [Catalytic activity/Vol] 28 U/L Normal 10-35 [facility] Comment on above: Performed By: #### 6 , 1758, 68971 #### [facility] [address], [address] [place] [address] Dry Transfer Man: Luis Gongora MD Bilirubin [Mass/Vol] 0.4 mg/dL Normal 0.2-1.2 [facility] Comment on above: Performed By: #### 6 , 1758, 58779 #### [facility] [place] [address] Dry Transfer Man: Luis Gongora MD BUN/CREATININE RATIO SEE NOTE: Normal 6-22 [facility] Comment on above: Result Comment: Not Reported: BUN and Creatinine are within reference range. Performed By: #### 6 , 1758, 33274 #### [facility] [address], [address] [place] [address] Dry Transfer Man: Luis Gongora MD Calcium [Mass/Vol] 10.3 mg/dL Normal 8.6-10.3 [facility] Comment on above: Performed By: #### 6 , 1758, 23786 #### [facility] [place] [address] Dry Transfer Man: Luis Gongora MD Chloride [Moles/Vol] 96 mmol/L Low 98-110 [facility] Comment on above: Performed By: #### 6 , 1758, 32126 #### [facility] [address], [address] [place] [address] Dry Transfer Man: Luis Gongora MD CO2 [Moles/Vol] 26 mmol/L Normal 20-32 [facility] Comment on above: Performed By: #### 6 , 1758, 70340 #### [facility] [address], [address] [place] [address] Dry Transfer Man: Luis Gongora MD Creatinine [Mass/Vol] 1.08 mg/dL Normal 0.70-1.[address] [facility] Comment on above: Performed By: #### 6 , 1758, 43845 #### [facility] [place] [address] Dry Transfer Man: Luis Gongora MD GFR/1.73 sq M.predicted among non-blacks MDRD (S/P/Bld) [Vol rate/Area] 76 mL/min/{1.73_m2} Normal > OR = 60 [facility] Comment on above: Performed By: #### 6 , 1758, 00810 #### [facility] [place] [address] Dry Transfer Man: Luis Gongora MD Globulin (S) [Mass/Vol] 3.8 g/dL High 1.9-3.7 [facility] Comment on above: Performed By: #### 6 , 1758, 18439 #### [facility] [place] [address] Dry Transfer Man: Luis Gongora MD Glucose [Mass/Vol] 105 mg/dL High 65-99 [facility] Comment on above: Result Comment: Fasting reference interval For someone without known diabetes, a glucose value between 100 and 125 mg/dL is consistent with prediabetes and should be confirmed with a follow-up test. Performed By: #### 6 , 1758, 33850 #### [facility] [place] [address] Dry Transfer Man: Luis Gongora MD Potassium [Moles/Vol] 5.4 mmol/L High 3.5-5.[address] [facility] Comment on above: Performed By: #### 6 , 1758, 44684 #### [facility] of [address], [address] [place] [address] Dry Transfer Man: Luis Gongora MD Protein [Mass/Vol] 7.7 g/dL Normal 6.1-8.1 [facility] Comment on above: Performed By: #### 6 , 1758, 15515 #### [facility] of [address], [address] [place] [address] Dry Transfer Man: Luis Gongora MD Sodium [Moles/Vol] 132 mmol/L Low 135-146 [facility] Comment on above: Performed By: #### 6 , 1758, 62410 #### [facility] [place] [address] Dry Transfer Man: Luis Gongora MD Urea nitrogen [Mass/Vol] 19 mg/dL Normal 7-25 [facility] Comment on above: Performed By: #### 6 , 1758, 47228 #### [facility] of [place] [address] Dry Transfer Man: Luis Gongora MD MAGNESIUMon 05-05-2024 Magnesium [Mass/Vol] 1.9 mg/dL Normal 1.5-2.5 [facility] Comment on above: Order Comment: FASTI NG:YES PRIOR AUTH REQUIRED, PATIENT ADVISED TO CONTACT PHYSICIAN. FASTING: YES Performed By: #### 6 , 1758, 98762 #### [facility] of [address], [address] [place] [address] Dry Transfer Man: Luis Gongora MD CNOVon 04-26-2024 CNOV Office Visit (RADTSA ) -------- JARET GRAJEDA ([id number]) 1960 M Date Time Provider Department 04/26/24 11:30 AM DON MEJIA During your visit today, we recorded the following information about you: Temperature Respiration Blood pressure Weight 96.7 degrees 18/minute 117/77 60.9 kg Don Mejia MD 05/08/2024 8:45 AM Addendum Radiation Oncology - Follow Up Note PATIENT NAME: Jaret Grajeda PATIENT DIAGNOSIS/PATIENT IDENTIFICATION: Mr. Grajeda is a 63-year-old gentleman diagnosed with a Stage IB, [id number], non-small cell lung cancer (adenocarcinoma) arising from [...] negative at stations 2L and 7. He completed a course of SBRT to the left upper lobe lung lesion on 03/07/2023 (5000 cGy delivered in 4 fractions). Since completion of his SBRT treatments to the left chest, he has been on surveillance with Dr. Garber and recent CT of the abdomen pelvis from 03/14/2024 noted the interval development of an approximate 6 cm heterogenously enhancing centrally necrotic left adrenal mass highly suggestive of adrenal malignancy/metastatic lesion. 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 He was referred to the radiation medicine clinic for consideration of additional SBRT treatment to the area of new disease in the left adrenal gland. Mr. Grajeda returns to clinic today for follow-up as previously discussed during consultation on 04/06/2024. In the interim, he had PET/CT on 04/19/2024 for restaging which noted resolution of the left upper lobe lung mass that was previously treated with SBRT in 2023. It also confirmed hypermetabolic activity in the enlarged left adrenal mass but also noted activity in a new right pelvic wall mass as well as the left hilum both concerning for metastatic disease. He started systemic therapy with immunotherapy yesterday with Dr. Garber in [place]. As there are multiple areas of metastatic disease noted on his recent PET/CT, it would make sense to continue with immunotherapy at this time and consider local therapy with radiation in a more consolidative setting down the road should repeat imaging note limited disease burden. He will continue his follow-up, systemic therapy, and surveillance with Dr. Garber and have an open follow-up with us here in the radiation medicine clinic for the time being. The patient is aware to contact the clinic should any questions or concerns arise. Thank you for allowing us to participate in the care of this patient. RADIOLOGIC DATA: PET/CT (04/19/2024) IMPRESSION Since 01/24/2023, PRIMARY DISEASE SITE: * [...] FDG avid right pelvic wall mass, new. Signed by: Don Mejia MD I spent a total of 15 minutes on the date of the service which included preparing to see the patient, [id number] patient care, and counseling and educating the patient/family/caregiver . This document has been created with the use of voice recognition technology. It may contain inaccuracies, misspellings, inaccurate syntax or inappropriate word context that are a result of the inadequacies/shortcoming s of said technology/software. 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 - omeprazole (PRILOSEC) 20 mg capsule Take 20 mg by mouth. - spironolactone (ALDACTONE) 25 mg tablet Take 12.5 mg by mouth. - warfarin (COUMADIN) 5 mg tablet 5mg by mouth once daily. - calcium carbonate (CALCIUM 500 ORAL) Take by mouth. - potassium chloride (KLOR-CON M10 ORAL) Take 10 mEq by mouth once daily. - magnesium oxide (MAG-OX) 400 mg (241.3 mg magnesium) tablet Take 1 tablet by mouth three times a day. - nicotine (NICODERM) 21 mg/24 hr - metoprolol succinate ER (TOPROL XL) 50 mg 24 hr tablet Take 1 tablet by mouth e (more content not included)... Normal [facility] GLUCOSE, BLOOD (POC)on 04-19 Glucose [Mass/Vol] 95 mg/dL 74 - 99 mg/dL [facility] Comment on above: Location:[facility], [address] [place] [address] , [place], [place], [facility] The Accu-Chek Inform II glucose meter has [...] blood gas instrument) in the above situations. [facility] PET/CT SKULL-THIGH SUBQon 04-19-2024 [place] PET/CT SKULL-THIGH SUBQ * * *Final Report* * * DATE OF EXAM: Apr 19 2024 2:43PM NRN [id number] - IA PET/CT SKULL-THIGH SUBQ / PROCEDURE REASON: multiple [...] designed to produce diagnostic CT scan quality. Physiologic/non-patholog ic uptake in some body regions could confound or obscure some pathology. * CT Dose-Length Product (DLP): 158 mGy*cm * CT Dose Reduction Employed: Yes * Blood glucose: 95 mg/dL * Injection site: Left Forearm-Antecubital * Injected activity: 6.8 mCi * Uptake Time: 44 minutes * Radiopharmaceutical: H26-Ivnvzqwuytoepgvmag (FDG) COMPARISON: 01/24/2023 CORRELATION: Outside CT scan [...] No radiotracer avid thyroid nodule. CHEST: Lungs and Pleura: Interval resolution of left upper lobe [...] any questions regarding this interpretation, please call [phone]. If you are unable to reach us at the number above, please feel free to contact [facility] at [phone]. [id number] Normal [facility] SURGICAL PATHOLOGY REFERENCE LAB CONSULTon 04-12-2024 AP DISCLAIMER Normal [facility] Comment on above: Order Comment: Speci men Type: FORMALIN-FIXED PARAFFIN-EMBEDDED TISSUE SPECIMENOrdering Facility: [facility] Address: DEPARTMENT OF PATHOLOGY, [place] [address] Result Comment: Whitney Reilly Test (LDT) Disclaimer: Performance characteristics of immunohistochemical, immunofluorescent, and chromogenic in-situ hybridization tests have been determined by the performing laboratory within [facility]'s [facility]es Pathology and Laboratory Medicine Department ([facility], [facility], [facility], [facility], [facility], [facility], or [facility]) in a manner consistent with CLIA requirements. One or more of these tests may not have been cleared or approved by the FDA. [facility] is regulated under CLIA as qualified to perform high-complexity testing. These tests are used for clinical purposes. These should not be regarded as investigational or for research. Positive and negative controls stain appropriately. Performed By: #### L [id number] ####[facility] [id number] [address] [place] CASE REPORT Normal [facility] Comment on above: Order Comment: Speci men Type: FORMALIN-FIXED PARAFFIN-EMBEDDED TISSUE SPECIMENOrdering Facility: [facility] Address: DEPARTMENT OF PATHOLOGY, [place] [address] Result Comment: [facility] Pathology Report Case: [id number] Authorizing Provider: Mary Quinn MD, Collected: 04/12/2024 09:01 AM PhD Ordering Location: [facility] Received: 04/12/2024 09:00 AM [facility] Laboratory Pathologist: Shante Ramos MD Specimen: Block(s) and/or Slide(s), 17 SLIDES / 2 BLOCKS [id number];4,5 Performed By: #### L [id number] ####[facility] [id number] [place] [address] [place] CLINICAL HISTORY CONSULT REQUSTED Normal [facility] Comment on above: Order Comment: Speci men Type: FORMALIN-FIXED PARAFFIN-EMBEDDED TISSUE SPECIMENOrdering Facility: [facility] Address: DEPARTMENT OF PATHOLOGY, [place] [address] Performed By: #### L [id number] ####[facility] [id number] [address] [place] DIAGNOSIS COMMENT Normal [facility] Comment on above: Order Comment: Speci men Type: FORMALIN-FIXED PARAFFIN-EMBEDDED TISSUE SPECIMENOrdering Facility: [facility] Address: DEPARTMENT OF PATHOLOGY, [place] [address] Result Comment: Than k you very much for allowing me to [...] Napsin A: Negative TTF-1: Negative Calretinin: Negative [place] 1: Negative PAX8: Negative GATA3 equivocal Given these morphologic features, additional immunohistochemical stains performed at the [facility] to aid in the classification of [...] and Yumiko Garcia C. Kao, S. Williamson, J. Myles and Clover Carpenter agree with the above interpretation. Thank you for allowing me to provide an opinion on this case. Performed By: #### L [id number] ####[facility] LABIA [id number] [address] [place] FINAL DIAGNOSIS Normal [facility] Comment on above: Order Comment: Speci men Type: FORMALIN-FIXED PARAFFIN-EMBEDDED TISSUE SPECIMENOrdering Facility: [facility] Address: DEPARTMENT OF PATHOLOGY, [place] [address] Result Comment: [facility], [place], [place] ([id number], 03/16/2024): A. Adrenal gland, biopsy: -SMARCA2 deficient carcinoma, consistent with patient's lung primary. at 1551 EDT Performed By: #### L [id number] ####[facility] LABCLIA [id number] [address] FINAL PERFORMING LAB Normal [facility] Comment on above: Order Comment: Speci men Type: FORMALIN-FIXED PARAFFIN-EMBEDDED TISSUE SPECIMENOrdering Facility: [facility] Address: DEPARTMENT OF PATHOLOGY, [place] [address] Result Comment: Diag nostic interpretation performed at: [facility], [address], [facility] [place] [address] CLIA# [id number] [employer] Operator: Jose Fung MD Performed By: #### L [id number] ####[facility] LABCLIA [id number] [address] Office Visiton 04-09-2024 Follow-up visit [id number] Brigette Grajeda 1960 M Date Provider Department Center 04/09/2024 [id number]-NFNIZIBENITEZ COLLADO BRANDI Gibson Family History Family history unknown: Yes Level of Service:15787 [place] OFFICE/OUTPATIENT NEW MODERATE MDM 45 MINUTES Reason for Visit and Comments: pulmonary embolism [Other] - Follow up [facility] for PE. Denies chest pain and bleeding on warfarin. Smoker [Other] - Smokes 1/2 PPD, but is currently trying to quit. Says he's going to hot die picker nicotine patches today. Normal [facility] CNOVon 04-06-2024 CNOV Office Visit (RADTSA ) -------- JARET GRAJEDA ([id number]) 1960 M Date Time Provider Department 04/06/24 1:00 PM DON MEJIA During your visit today, we recorded the following information about you: Temperature Pulse Respiration Blood pressure 96.9 degrees 91/minute 18/minute 106/76 Weight 57.6 kg Lili Martinez RN 04/30/2024 11:51 PM Signed Pacemaker/Defibrillator? N Previous Cancer(s)?Lung cancer Previous Radiation?[facility] Lupus/Scleroderma?N On body monitoring device?N CE Martins Saju, MD 05/01/2024 4:42 AM Addendum Radiation Oncology - Follow Up Note PATIENT NAME: Jaret Grajeda PATIENT DIAGNOSIS/PATIENT IDENTIFICATION: Mr. Grajeda is a 63-year-old gentleman diagnosed with a Stage IB, [id number], non-small cell lung cancer (adenocarcinoma) arising from [...] 03/07/2023 (5000 cGy delivered in 4 fractions). INTERVAL HISTORY: Since completion of his SBRT treatments to the left chest, he has been on surveillance with Dr. Garber and recent CT of the abdomen pelvis from 03/14/2024 noted the interval development of an approximate 6 cm heterogenously enhancing centrally necrotic left adrenal mass highly suggestive of adrenal malignancy/metastatic lesion. 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 He is referred today to the radiation medicine clinic for consideration of additional SBRT treatment to the area of new disease in the left adrenal gland. ALLERGIES ALLERGIES No Known Allergies MEDICATIONS: Current Outpatient Medications: amLODIPine (NORVASC) 5 mg tablet omeprazole (PRILOSEC) 20 mg capsule spironolactone (ALDACTONE) 25 mg tablet warfarin (COUMADIN) 5 mg tablet calcium carbonate (CALCIUM 500 ORAL) potassium chloride (KLOR-CON M10 ORAL) magnesium oxide (MAG-OX) 400 mg (241.3 mg magnesium) tablet nicotine (NICODERM) 21 mg/24 hr metoprolol succinate ER (TOPROL XL) 50 mg 24 hr tablet PHYSICAL EXAM: GENERAL: Middle-age gentleman sitting in chair in no acute distress. VITALS: BP 106/76 Pulse 91 Temp 96.9 Resp 18 Wt 126 lb 15.8 oz (57.6kg) SpO2 99% KPS: 80 HEENT: NC/AT, anicteric sclera HEART: S1S2 LUNGS: non-labored breathing ABDOMEN: soft MUSCULOSKELETAL: no peripheral edema, moves all extremities. NEURO: no focal deficit; AANDO X3. PATHOLOGIC DATA: 03/16/2024 FINAL DIAGNOSIS [facility], [place], [place] ([id number], 03/16/2024) A. Adrenal gland, biopsy: -SMARCA2 deficient carcinoma, consistent with patient's lung primary. Diagnosis Comment Thank you very much for [...] Napsin A: Negative TTF-1: Negative Calretinin: Negative [place] 1: Negative PAX8: Negative GATA3 equivocal Given these morphologic features, additional immunohistochemical stains performed at the [facility] to aid in the classification of the tumor and demonstrates the following: SF1: Negative CAM5.2: Positive SMARCA2: Loss of expression SMARCA4: Retained expression INI1: Retained expression GATA3: Negative This immunop (more content not included)... Normal [facility] CNPNon 04-04-2024 CNPN Telephone (RADTSA) -------- JARET GRAJEDA ([id number]) 1960 M Date Time Provider Department 04/04/24 DON MEJIA During your visit today, we recorded the following information about you: Cathy Jovel RN 04/04/2024 8:[address] Mejia note, 04/04. Thanks for getting Dr Garber's note ? I see that the adrenal gland was biopsied on 03/16 (results in care everywhere) - can we have it reviewed thru [facility] as well. And his note also mentions discussing a PET - would see if it has been scheduled and would cancel ours if he's already had it or is before ours. Cathy Jovel, CE 04/04/2024 8:[address] Mejia- please sign order for pathology read. PSS- please arrange second opinion pathology as requested. Please also find out if pt had PET and if so, cancel ours. If pet has been done, will need report and images. Thank you CE Charles Ariana E, RN 04/04/2024 10:10 AM Signed GENARO--Brandon with Dr. Garber's states he did not order a PET scan. She will fax the most recent office note that is available and fax 04/03/24 office note once it's dictated. EC Martins Trisha 04/06/2024 10:29 AM Signed All paperwork has been faxed to [facility] for 2nd opinion. Ebony Patrick PSS Allergies As of Date: 04/04/2024 (Not on File) Date Reviewed: 02/28/2023 Reviewed by: Cathy Jovel RN - Fully Assessed Reason for Visit: Patient Update [1234] Primary Visit Diagnosis: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) [C34.12] Order(s):OUTSIDE SURG PATH SLIDE REVIEW [[id number]] Order #: [id number] Prescriptions as of 04/18/2024 - amLODIPine (NORVASC) 5 mg tablet Take 5 mg by mouth. - omeprazole (PRILOSEC) 20 mg capsule Take 20 mg by mouth. - spironolactone (ALDACTONE) 25 mg tablet Take 12.5 mg by mouth. - warfarin (COUMADIN) 5 mg tablet 5mg by mouth once daily. - calcium carbonate (CALCIUM 500 ORAL) Take [...] 12 hours. Problem List As Of Date: 04/04/2024 (None) Encounter Status:Closed by CATHY JOVEL on 04/18/24 Normal [facility] Telephoneon 03-27-2024 Telephone [id number] Brigette Grajeda 1960 M Date Provider Department Center 03/27/2024 [id number]-PENXJARAD HARPER HVCANTICOAG RI HeartVAS Family History Family history unknown: Yes Normal [facility] 36on 03-26-2024 36 VM msg left for pt t o return call to schedule follow up and also for dosing Normal [facility] Documentationon 03-23-2024 Documentation [id number] Brigette Grajeda 1960 M Date Provider Department Center 03/23/202451850-CBJZONDI, KARA HVCANTICOAG RI [facility]AS Family History Family history unknown: Yes Reason for Visit and Comments: Anticoagulation [Other] [facility] 30on 03-21-2024 30 Daily Case Managemen t Update Multidisciplinary rounds have been completed. Barriers to Discharge: Called Anticoagulation clinic at [place] [phone] and left a message for a return phone call regarding if everything was in place for an INR blood draw tomorrow-Await response. Scripts and order for [facility] Medication clinic given to patient per request. 14:38 Received notification form May at the [facility] ands she can schedule am appointment for pt to be seen for an INR check tomorrow. Called the bedside Rn to update,. May plans to call the patient to schedule. Diet: Dietary Orders (From admission, onward) Start Ordered 03/19/24 1150 Regular Diet 240ml/tray Diet effective now Question Answer Comment Room Service? Yes Fluid restriction total / 24h: 240ml/tray 03/19/24 1150 03/14/24 1645 Dietary nutrition supplements Lunch; Magic Cup; Vanilla; 4 oz; Oral Until discontinued Question Answer Comment Deliver with Lunch Select supplement: Magic Cup Flavors: Vanilla Strength: 4 oz Route Oral 03/14/24 1644 03/14/24 1645 Dietary nutrition supplements Dinner; Magic Cup; Butter Pecan; 4 oz; Oral Until discontinued Question Answer Comment Deliver with Dinner Select supplement: Magic Cup Flavors: Butter Pecan Strength: 4 oz Route Oral 03/14/24 1644 Physician Expected Discharge Date: 03/21/2024 Discharge Delays: PT Six Click Score: 20 OT Six Click Score: 24 PT Recommendations: Home, With assist OT Recommendations: Home New Consults: Therapy Orders (From admission, onward) Start Ordered 03/14/24 1115 PT eval and treat Until therapy completed Question: Reason for PT? Answer: weakness 03/14/24 1114 03/14/24 1115 OT eval and treat Until therapy completed Question: Reason for OT? Answer: weakness 03/14/24 1114 [facility] 30 The patient is Moderately Stable - Low risk of patient condition declining or worsening The patient's goals for the shift include comfort and rest The clinical goals for the shift include VSS Normal [facility] ANTI-XA (HEPARIN LEVEL)on HEPARIN UNFRACTIONATED (U/ML) IN PPP BY CHROMOGENIC METHOD 0.37 IU/mL Normal 0.3-0.7 [facility] Comment on above: Result Comment: Liza roxaban and Apixaban will interfere with the anti Xa assay used to monitor UFH and LMWH. Performed By: #### L [id number] #### [facility] ([facility]) [address] [place] [address] HEPARIN UNFRACTIONATED (U/ML) IN PPP BY CHROMOGENIC METHOD 0.50 IU/mL Normal 0.3-0.7 [facility] Comment on above: Result Comment: Liza roxaban and Apixaban will interfere with the anti Xa assay used to monitor UFH and LMWH. Performed By: #### L [id number] #### [facility] ([facility]) [address] [place] [address] CBC WITH AUTO DIFFERENTIALon 03-21-2024 Basophils (Bld) [#/Vol] 0.05 10*3/uL Normal 0.00-0.20 [facility] Comment on above: Performed By: #### L [id number] #### [facility] ([facility]) [address] [place] [address] Basophils/100 WBC (Bld) 0.9 % Normal 0.0-1.0 [facility] Comment on above: Performed By: #### L [id number] #### [facility] ([facility]) [address] [place] [address] Eosinophils (Bld) [#/Vol] 0.08 10*3/uL Normal 0.00-0.50 [facility] Comment on above: Performed By: #### L [id number] #### [facility] ([facility]) [address] [place] [address] Eosinophils/100 WBC (Bld) 1.4 % Normal 0.0-6.0 [facility] Comment on above: Performed By: #### L [id number] #### [facility] ([facility]) [address] [place] [address] Erythrocyte distribution width (RBC) [Ratio] 18.2 % High 11.5-15.0 [facility] Comment on above: Performed By: #### L [id number] #### [facility] ([facility]) [address] [place] [address] ERYTHROCYTE MEAN CORPUSCULAR HEMOGLOBIN CONCENTRATION (G/DL) BY AUTOMATED 32.7 g/dL Normal 32.0-35.0 [facility] Comment on above: Performed By: #### L [id number] #### [facility] ([facility]) [address] [place] [address] Hematocrit (Bld) [Volume fraction] 25.1 % Low 39.0-55.0 [facility] Comment on above: Performed By: #### L [id number] #### [facility] ([facility]) [address] [place] [address] Hemoglobin (Bld) [Mass/Vol] 8.2 g/dL Low 13.0-17.0 [facility] Comment on above: Performed By: #### L [id number] #### [facility] ([facility]) [address] [place] [address] Immature granulocytes (Bld) [#/Vol] 0.03 10*3/uL Normal 0.00-0.20 [facility] Comment on above: Performed By: #### L [id number] #### [facility] ([facility]) [address] [place] [address] Immature granulocytes/100 WBC (Bld) 0.5 % Normal 0.0-1.0 [facility] Comment on above: Performed By: #### L [id number] #### [facility] ([facility]) [address] [place] [address] Lymphocytes (Bld) [#/Vol] 1.60 10*3/uL Normal 1.20-4.00 [facility] Comment on above: Performed By: #### L [id number] #### [facility] ([facility]) [address] [place] [address] Lymphocytes/100 WBC (Bld) 27.4 % Normal 20.0-45.0 [facility] Comment on above: Performed By: #### L [id number] #### [facility] [address] [place] [address] MCH (RBC) [Entitic mass] 28.9 pg Normal 27.0-33.0 [facility] Comment on above: Performed By: #### L [id number] #### [facility] [address] [place] [address] MCV (RBC) [Entitic vol] 88.4 fL Normal 82.0-98.0 [facility] Comment on above: Performed By: #### L [id number] #### [facility] ([facility]) [address] [place] [address] Monocytes (Bld) [#/Vol] 0.53 10*3/uL Normal 0.10-1.00 [facility] Comment on above: Performed By: #### L [id number] #### [facility] ([facility]) [address] [place] [address] Monocytes/100 WBC (Bld) 9.1 % Normal 5.0-12.0 [facility] Comment on above: Performed By: #### L [id number] #### [facility] [address] [place] [address] Neutrophils (Bld) [#/Vol] 3.55 10*3/uL Normal 1.60-7.60 [facility] Comment on above: Performed By: #### L [id number] #### [facility] ([facility]) [address] [place] [address] Neutrophils/100 WBC (Bld) 60.7 % Normal 40.0-72.0 [facility] Comment on above: Performed By: #### L [id number] #### [facility] ([facility]) [address] [place] [address] NRBC (PER 100 WBCS) BY AUTOMATED COUNT 0.0 % Normal 0 [facility] Comment on above: Performed By: #### L [id number] #### [facility] ([facility]) [address] [place] [address] PLATELETS (10*3/UL) IN BLOOD AUTOMATED COUNT 276 10*3/uL Normal 150-400 [facility] Comment on above: Performed By: #### L [id number] #### [facility] ([facility]) [address] [place] [address] RBC (Bld) [#/Vol] 2.84 10*6/uL Low 4.20-5.70 [facility] Comment on above: Performed By: #### L [id number] #### [facility] ([facility]) [address] [place] [address] WBC (Bld) [#/Vol] 5.84 10*3/uL Normal 4.00-10.60 [facility] Comment on above: Performed By: #### L [id number] #### [facility] ([facility]) [address] [place] [address] COMPREHENSIVE METABOLIC PANE Ankur 03-21-2024 Albumin [Mass/Vol] 2.2 g/dL Low 3.5-5.7 [facility] Comment on above: Performed By: #### L [id number] ####[facility] ([facility])[address] [place] [address] ALP [Catalytic activity/Vol] 94 U/L Normal 34-104 [facility] Comment on above: Performed By: #### L [id number] ####[facility] ([facility])[address] [place] [address] ALT [Catalytic activity/Vol] 13 U/L Normal 7-52 [facility] Comment on above: Performed By: #### L [id number] ####[facility] ([facility])[address] [place] [address] Anion gap [Moles/Vol] 11 mmol/L Normal 7-20 [facility] Comment on above: Performed By: #### L [id number] ####[facility] ([facility])[address] [place] [address] AST [Catalytic activity/Vol] 23 U/L Normal 13-39 [facility] Comment on above: Performed By: #### L [id number] ####[facility] ([facility])[address] [place] [address] Bilirubin [Mass/Vol] 0.5 mg/dL Normal 0.3-1.0 [facility] Comment on above: Performed By: #### L [id number] ####[facility] ([facility])[address] [place] [address] Calcium [Mass/Vol] 8.0 mg/dL Low 8.6-10.3 [facility] Comment on above: Performed By: #### L [id number] ####[facility] ([facility])[address] [place] [address] Chloride [Moles/Vol] 99 mmol/L Normal 98-107 [facility] Comment on above: Performed By: #### L [id number] ####[facility] ([facility])[address] [place] [address] CO2 [Moles/Vol] 26 mmol/L Normal 21-31 [facility] Comment on above: Performed By: #### L [id number] ####[facility] ([facility])[address] [place] [address] Creatinine [Mass/Vol] 0.69 mg/dL Low 0.70-1.30 [facility] Comment on above: Performed By: #### L [id number] ####[facility] ([facility])[address] [place] [address] GLOMERULAR FILTRATION RATE ML/MIN/1.73 SQ M.PREDICTED 102.7 mL/min/1.73m*2 Normal >60.0 [facility] Comment on above: Result Comment: The [facility]???s estimated glomerular filtration rate (eGFR) will no longer include consideration of race in its calculation. The National Kidney Foundation???s eGFR Task Force developed new recommendations for the estimation of the glomerular filtration rate in the [place] They recommend immediate implementation of the new equation refit without the race variable in all laboratories because the calculation does not include race. In addition to not including race in the calculation and reporting, it included diversity in its development, and has acceptable performance characteristics and potential consequences that do not disproportionately affect any one group of individuals. Performed By: #### L [id number] ####[facility] ([facility])[address] [place] [address] Glucose [Mass/Vol] 84 mg/dL Normal 70-100 [facility] Comment on above: Performed By: #### L [id number] ####[facility] ([facility])[address] [place] [address] Potassium [Moles/Vol] 3.5 mmol/L Normal 3.5-5.1 [facility] Comment on above: Performed By: #### L [id number] ####[facility] [place] [address] Protein [Mass/Vol] 5.1 g/dL Low 6.0-8.3 [facility] Comment on above: Performed By: #### L [id number] ####[facility] [place] [address] Sodium [Moles/Vol] 132 mmol/L Low 136-145 [facility] Comment on above: Performed By: #### L [id number] ####[facility] ([facility])[address] [place] [address] Urea nitrogen [Mass/Vol] 4 mg/dL Low 7-25 [facility] Comment on above: Performed By: #### L [id number] ####[facility] ([facility])[address] [place] [address] UREA NITROGEN/CREATININE (MASS RATIO) IN SER/PLAS 5.8 Normal [facility] Comment on above: Performed By: #### L [id number] ####[facility] ([facility])[address] [place] [address] PROTIME-INRon 03-21-2024 INR IN PPP BY COAGULATION ASSAY 2.11 High 0.90-1.10 [facility] Comment on above: Result Comment: [facility] RECOMMENDED INR FOR WARFARIN THERAPY CONDITION INR PROPHYLAXIS OF VENOUS THROMBOSIS 2-3 (HIGH-RISK SURGERY) TREATMENT OF VENOUS THROMBOSIS 2-3 TREATMENT OF PULMONARY EMBOLISM 2-3 PREVENTION OF SYSTEMIC EMBOLISM: 2-3 ACUTE MYOCARDIAL INFARCTION TISSUE HEART VALVES VALVULAR HEART DISEASE ATRIAL FIBRILLATION RECURRENT SYSTEMIC EMBOLISM MECHANICAL HEART VALVE 2.5-3.5 FROM: ORAL ANTICOAGULANTS. MECHANISM OF ACTION, CLINICAL EFFECTIVENESS, AND OPTIMAL THERAPEUTIC RANGE. CHEST 1995;108:231S-246S. Performed By: #### L [id number] #### [facility] ([facility]) [address] [place] [address] PROTHROMBIN TIME (PT) IN PPP BY COAGULATION ASSAY 23.3 Seconds High 12.3-14.8 [facility] Comment on above: Performed By: #### L [id number] #### [facility] ([facility]) [address] [place] [address] 30on 03-20-2024 30 The patient is Moderately Stable - Low risk of patient condition declining or worsening The patient's goals for the shift include comfort/rest The clinical goals for the shift include VSS Problem: Pain - Adult Goal: Verbalizes/displays adequate comfort level or baseline comfort level Outcome: Progressing Flowsheets (Taken 03/20/2024 0758 by Bob Stewart RN) Verbalizes/displays adequate comfort level or baseline comfort level: Encourage patient to monitor pain and request assistance Assess pain using appropriate pain scale Administer analgesics based on type and severity of pain and evaluate response Implement non-pharmacological measures as appropriate and evaluate response Problem: Safety - Adult Goal: Free from fall injury Outcome: Progressing Flowsheets (Taken 03/19/2024 0730 by Bob Stewart RN) Free from fall injury: Assess patient frequently for physical needs Identify cognitive and physical deficits and behaviors that affect risk of falls [place] fall precautions as indicated by assessment Educate patient/family on patient safety, including physical limitations Instruct patient to call for assistance with activity based on assessment Problem: Discharge Planning Goal: Discharge to home or other facility with appropriate resources Outcome: Progressing Flowsheets (Taken 03/18/20242142 by Rosa Saavedra RN) Discharge to home or other facility with appropriate resources: Identify barriers to discharge with patient and caregiver Arrange for needed discharge resources and transportation as appropriate Identify discharge learning needs (meds, wound care, etc) Problem: Chronic Conditions and Co-morbidities Goal: Patient's chronic conditions and co-morbidity symptoms are monitored and maintained or improved Outcome: Progressing Flowsheets (Taken 03/18/20242142 by Rosa Saavedra RN) Care Plan - Patient's Chronic Conditions and Co-Morbidity Symptoms are Monitored and Maintained or Improved: Monitor and assess patient's chronic conditions and comorbid symptoms for stability, deterioration, or improvement Collaborate with multidisciplinary team to address chronic and comorbid conditions and prevent exacerbation or deterioration Update acute care plan with appropriate goals if chronic or comorbid symptoms are exacerbated and prevent overall improvement and discharge Normal [facility] 30 The patient is Moderately Stable - Low risk of patient condition declining or worsening The patient's goals for the shift include comfort and rest The clinical goals for the shift include VSS Normal [facility] ANTI-XA (HEPARIN LEVEL)on HEPARIN UNFRACTIONATED (U/ML) IN PPP BY CHROMOGENIC METHOD 0.40 IU/mL Normal 0.3-0.7 [facility] Comment on above: Result Comment: Dorothy roxaban and Apixaban will interfere with the anti Xa assay used to monitor UFH and LMWH. Performed By: #### L [id number] #### [facility] ([facility]) [address] [place] [address] HEPARIN UNFRACTIONATED (U/ML) IN PPP BY CHROMOGENIC METHOD 0.34 IU/mL Normal 0.3-0.7 [facility] Comment on above: Result Comment: Dorothy roxaban and Apixaban will interfere with the anti Xa assay used to monitor UFH and LMWH. Performed By: #### L [id number] ####[facility] ([facility])[address] [place] [address] HEPARIN UNFRACTIONATED (U/ML) IN PPP BY CHROMOGENIC METHOD 0.27 IU/mL Low 0.3-0.7 [facility] Comment on above: Result Comment: Liza roxaban and Apixaban will interfere with the anti Xa assay used to monitor UFH and LMWH. Performed By: #### L [id number] #### [facility] ([facility]) [address] [place] [address] HEPARIN UNFRACTIONATED (U/ML) IN PPP BY CHROMOGENIC METHOD 0.33 IU/mL Normal 0.3-0.7 [facility] Comment on above: Result Comment: Dorothy roxaban and Apixaban will interfere with the anti Xa assay used to monitor UFH and LMWH. Performed By: #### L [id number] #### [facility] ([facility]) [address] [place] [address] CBC WITH AUTO DIFFERENTIALon 03-20-2024 Basophils (Bld) [#/Vol] 0.05 10*3/uL Normal 0.00-0.20 [facility] Comment on above: Performed By: #### L [id number] #### [facility] ([facility]) [address] [place] [address] Basophils/100 WBC (Bld) 0.7 % Normal 0.0-1.0 [facility] Comment on above: Performed By: #### L [id number] #### [facility] ([facility]) [address] [place] [address] Eosinophils (Bld) [#/Vol] 0.09 10*3/uL Normal 0.00-0.50 [facility] Comment on above: Performed By: #### L [id number] #### [facility] ([facility]ER) [address] [place] [address] Eosinophils/100 WBC (Bld) 1.2 % Normal 0.0-6.0 [facility] Comment on above: Performed By: #### L [id number] #### [facility] [address] [place] [address] Erythrocyte distribution width (RBC) [Ratio] 18.3 % High 11.5-15.0 [facility] Comment on above: Performed By: #### L [id number] #### [facility] ([facility]) [address] [place] [address] ERYTHROCYTE MEAN CORPUSCULAR HEMOGLOBIN CONCENTRATION (G/DL) BY AUTOMATED 31.7 g/dL Low 32.0-35.0 [facility] Comment on above: Performed By: #### L [id number] #### [facility] ([facility]) [address] [place] [address] Hematocrit (Bld) [Volume fraction] 24.9 % Low 39.0-55.0 [facility] Comment on above: Performed By: #### L [id number] #### [facility] ([facility]) [address] [place] [address] Hemoglobin (Bld) [Mass/Vol] 7.9 g/dL Low 13.0-17.0 [facility] Comment on above: Performed By: #### L [id number] #### [facility] ([facility]) [address] [place] [address] Immature granulocytes (Bld) [#/Vol] 0.02 10*3/uL Normal 0.00-0.20 [facility] Comment on above: Performed By: #### L [id number] #### [facility] ([facility] [address] [place] [address] Immature granulocytes/100 WBC (Bld) 0.3 % Normal 0.0-1.0 [facility] Comment on above: Performed By: #### L [id number] #### [facility] [address] [place] [address] Lymphocytes (Bld) [#/Vol] 1.38 10*3/uL Normal 1.20-4.00 [facility] Comment on above: Performed By: #### L [id number] #### [facility] ([facility] [address] [place] [address] Lymphocytes/100 WBC (Bld) 19.0 % Low 20.0-45.0 [facility] Comment on above: Performed By: #### L [id number] #### [facility] ([facility]) [address] [place] [address] MCH (RBC) [Entitic mass] 28.5 pg Normal 27.0-33.0 [facility] Comment on above: Performed By: #### L [id number] #### [facility] ([facility]) [address] [place] [address] MCV (RBC) [Entitic vol] 89.9 fL Normal 82.0-98.0 [facility] Comment on above: Performed By: #### L [id number] #### [facility] ([facility]) [address] [place] [address] Monocytes (Bld) [#/Vol] 0.68 10*3/uL Normal 0.10-1.00 [facility] Comment on above: Performed By: #### L [id number] #### [facility] ([facility]) [address] [place] [address] Monocytes/100 WBC (Bld) 9.4 % Normal 5.0-12.0 [facility] Comment on above: Performed By: #### L [id number] #### [facility] ([facility] [address] [place] [address] Neutrophils (Bld) [#/Vol] 5.04 10*3/uL Normal 1.60-7.60 [facility] Comment on above: Performed By: #### L [id number] #### [facility] ([facility] [address] [place] [address] Neutrophils/100 WBC (Bld) 69.4 % Normal 40.0-72.0 [facility] Comment on above: Performed By: #### L [id number] #### [facility] ([facility]) [address] [place] [address] NRBC (PER 100 WBCS) BY AUTOMATED COUNT 0.0 % Normal 0 [facility] Comment on above: Performed By: #### L [id number] #### [facility] ([facility]) [address] [place] [address] PLATELETS (10*3/UL) IN BLOOD AUTOMATED COUNT 246 10*3/uL Normal 150-400 [facility] Comment on above: Performed By: #### L [id number] #### [facility] ([facility]) [address] [place] [address] RBC (Bld) [#/Vol] 2.77 10*6/uL Low 4.20-5.70 [facility] Comment on above: Performed By: #### L [id number] #### [facility] ([facility]) [address] [place] [address] WBC (Bld) [#/Vol] 7.26 10*3/uL Normal 4.00-10.60 [facility] Comment on above: Performed By: #### L [id number] #### [facility] ([facility]) [address] [place] [address] COMPREHENSIVE METABOLIC PANE Ankur 03-20-2024 Albumin [Mass/Vol] 2.2 g/dL Low 3.5-5.7 [facility] Comment on above: Performed By: #### L [id number] #### [facility] ([facility]) [address] [place] [address] ALP [Catalytic activity/Vol] 96 U/L Normal 34-104 [facility] Comment on above: Performed By: #### L [id number] #### [facility] ([facility]) [address] [place] [address] ALT [Catalytic activity/Vol] 11 U/L Normal 7-52 [facility] Comment on above: Performed By: #### L [id number] #### [facility] ([facility]) [address] [place] [address] Anion gap [Moles/Vol] 11 mmol/L Normal 7-20 [facility] Comment on above: Performed By: #### L [id number] #### [facility] ([facility]) [address] [place] [address] AST [Catalytic activity/Vol] 25 U/L Normal 13-39 [facility] Comment on above: Performed By: #### L [id number] #### [facility] ([facility]) [address] [place] [address] Bilirubin [Mass/Vol] 0.6 mg/dL Normal 0.3-1.0 [facility] Comment on above: Performed By: #### L [id number] #### [facility] ([facility]) [address] [place] [address] Calcium [Mass/Vol] 8.1 mg/dL Low 8.6-10.3 [facility] Comment on above: Performed By: #### L [id number] #### [facility] ([facility]) [address] [place] [address] Chloride [Moles/Vol] 98 mmol/L Normal 98-107 [facility] Comment on above: Performed By: #### L [id number] #### [facility] ([facility] [address] [place] [address] CO2 [Moles/Vol] 24 mmol/L Normal 21-31 [facility] Comment on above: Performed By: #### L [id number] #### [facility] ([facility]) [address] [place] [address] Creatinine [Mass/Vol] 0.68 mg/dL Low 0.70-1.30 [facility] Comment on above: Performed By: #### L [id number] #### [facility] ([facility]) [address] [place] [address] GLOMERULAR FILTRATION RATE ML/MIN/1.73 SQ M.PREDICTED 103.2 mL/min/1.73m*2 Normal >60.0 [facility] Comment on above: Result Comment: The [facility]???s estimated glomerular filtration rate (eGFR) will no longer include consideration of race in its calculation. The National Kidney Foundation???s eGFR Task Force developed new recommendations for the estimation of the glomerular filtration rate in the [place] They recommend immediate implementation of the new equation refit without the race variable in all laboratories because the calculation does not include race. In addition to not including race in the calculation and reporting, it included diversity in its development, and has acceptable performance characteristics and potential consequences that do not disproportionately affect any one group of individuals. Performed By: #### L [id number] #### [facility] ([facility]) [address] [place] [address] Glucose [Mass/Vol] 76 mg/dL Normal 70-100 [facility] Comment on above: Performed By: #### L [id number] #### [facility] ([facility]) [address] [place] [address] Potassium [Moles/Vol] 3.3 mmol/L Low 3.5-5.1 [facility] Comment on above: Performed By: #### L [id number] #### [facility] ([facility]) [address] [place] [address] Protein [Mass/Vol] 5.1 g/dL Low 6.0-8.3 [facility] Comment on above: Performed By: #### L [id number] #### [facility] ([facility]) [address] [place] [address] Sodium [Moles/Vol] 130 mmol/L Low 136-145 [facility] Comment on above: Performed By: #### L [id number] #### [facility] ([facility]) [address] [place] [address] Urea nitrogen [Mass/Vol] 6 mg/dL Low 7-25 [facility] Comment on above: Performed By: #### L [id number] #### [facility] ([facility]) [address] [place] [address] UREA NITROGEN/CREATININE (MASS RATIO) IN SER/PLAS 8.8 Normal [facility] Comment on above: Performed By: #### L [id number] #### [facility] ([facility] [address] [place] [address] CONSULTon 03-20-2024 CONSULT discharge planning: to Home Patient came to this admission 03/13/2024; H&P stating came from [facility]...presented to [facility] as a transfer because of requiring higher level of care. Patient initially presented to the outside hospital with weakness and hypothermia. Per report, patient was found after a fall in the parking lot - Occupational Therapy recommending discharge to Home - Physical Therapy recommending discharge to Home - LDAs tab not listing wounds at this time - I/O w/Vitals flowsheet listing Patient on Room Air at this time - follow up with [facility] Medication Management listed on AVS Normal [facility] MAGNESIUMon 03-20-2024 Magnesium [Mass/Vol] 1.1 mg/dL Low 1.9-2.7 [facility] Comment on above: Performed By: #### L [id number] ####[facility] ([facility])[address] [place] [address] PROTIME-INRon 03-20-2024 INR IN PPP BY COAGULATION ASSAY 1.43 High 0.90-1.10 [facility] Comment on above: Result Comment: ACCC P RECOMMENDED INR FOR WARFARIN THERAPY CONDITION INR PROPHYLAXIS OF VENOUS THROMBOSIS 2-3 (HIGH-RISK SURGERY) TREATMENT OF VENOUS THROMBOSIS 2-3 TREATMENT OF PULMONARY EMBOLISM 2-3 PREVENTION OF SYSTEMIC EMBOLISM: 2-3 ACUTE MYOCARDIAL INFARCTION TISSUE HEART VALVES VALVULAR HEART DISEASE ATRIAL FIBRILLATION RECURRENT SYSTEMIC EMBOLISM MECHANICAL HEART VALVE 2.5-3.5 FROM: ORAL ANTICOAGULANTS. MECHANISM OF ACTION, CLINICAL EFFECTIVENESS, AND OPTIMAL THERAPEUTIC RANGE. CHEST 1995;108:[id number]. Performed By: #### L [id number] #### [facility] ([facility]ER) [address] [place] [address] PROTHROMBIN TIME (PT) IN PPP BY COAGULATION ASSAY 17.3 Seconds High 12.3-14.8 [facility] Comment on above: Performed By: #### L [id number] #### [facility] ([facility]ER) [address] [place] [address] 30on 03-19-2024 30 The patient is Moderately Stable - Low risk of patient condition declining or worsening The patient's goals for the shift include comfort/rest The clinical goals for the shift include VSS Problem: Pain - Adult Goal: Verbalizes/displays adequate comfort level or baseline comfort level Outcome: Progressing Flowsheets (Taken 03/19/2024 0729 by Bob Stewart RN) Verbalizes/displays adequate comfort level or baseline comfort level: Encourage patient to monitor pain and request assistance Assess pain using appropriate pain scale Administer analgesics based on type and severity of pain and evaluate response Implement non-pharmacological measures as appropriate and evaluate response Problem: Safety - Adult Goal: Free from fall injury Outcome: Progressing Flowsheets (Taken 03/19/2024 07 by Bob Stewart RN) Free from fall injury: Assess patient frequently for physical needs Identify cognitive and physical deficits and behaviors that affect risk of falls [place] fall precautions as indicated by assessment Educate patient/family on patient safety, including physical limitations Instruct patient to call for assistance with activity based on assessment Problem: Discharge Planning Goal: Discharge to home or other facility with appropriate resources Outcome: Progressing Flowsheets (Taken 03/18/20242142 by Rosa Saavedra RN) Discharge to home or other facility with appropriate resources: Identify barriers to discharge with patient and caregiver Arrange for needed discharge resources and transportation as appropriate Identify discharge learning needs (meds, wound care, etc) Problem: Chronic Conditions and Co-morbidities Goal: Patient's chronic conditions and co-morbidity symptoms are monitored and maintained or improved Outcome: Progressing Flowsheets (Taken 03/18/20242142 by Rosa Saavedra RN) Care Plan - Patient's Chronic Conditions and Co-Morbidity Symptoms are Monitored and Maintained or Improved: Monitor and assess patient's chronic conditions and comorbid symptoms for stability, deterioration, or improvement Collaborate with multidisciplinary team to address chronic and comorbid conditions and prevent exacerbation or deterioration Update acute care plan with appropriate goals if chronic or comorbid symptoms are exacerbated and prevent overall improvement and discharge [facility] 30 Daily Case Managemen t Update Multidisciplinary rounds have been completed. Barriers to Discharge: Pending clinical course and improvement in clinical condition. Bone Marrow Biopsy today-follow up on results. Management of Pulmonary embolism, pneumonia of left lower lobe, and adrenal mass. Bridging to Coumadin. Will need Pulmonary outpatient follow up. Discharge plan is to return home when medically ready. Diet: Dietary Orders (From admission, onward) Start Ordered 03/19/24 1150 Regular Diet 240ml/tray Diet effective now Question Answer Comment Room Service? Yes Fluid restriction total / 24h: 240ml/tray 03/19/24 1150 03/14/24 1645 Dietary nutrition supplements Lunch; Magic Cup; Vanilla; 4 oz; Oral Until discontinued Question Answer Comment Deliver with Lunch Select supplement: Magic Cup Flavors: Vanilla Strength: 4 oz Route Oral 03/14/24 1644 03/14/24 1645 Dietary nutrition supplements Dinner; Magic Cup; Butter Pecan; 4 oz; Oral Until discontinued Question Answer Comment Deliver with Dinner Select supplement: Magic Cup Flavors: Butter Pecan Strength: 4 oz Route Oral 03/14/24 1644 Physician Expected Discharge Date: 03/20/2024 Discharge Delays: PT Six Click Score: 20 OT Six Click Score: 21 PT Recommendations: Home, With assist OT Recommendations: Home New Consults: Therapy Orders (From admission, onward) Start Ordered 03/14/24 1115 PT eval and treat Until therapy completed Question: Reason for PT? Answer: weakness 03/14/24 1114 03/14/24 1115 OT eval and treat Until therapy completed Question: Reason for OT? Answer: weakness 03/14/24 1114 [facility] 30 The patient is Moderately Stable - Low risk of patient condition declining or worsening The patient's goals for the shift include comfort and rest The clinical goals for the shift include VSS Normal [facility] ANTI-XA (HEPARIN LEVEL)on HEPARIN UNFRACTIONATED (U/ML) IN PPP BY CHROMOGENIC METHOD 0.79 IU/mL High 0.3-0.7 [facility] Comment on above: Result Comment: Dorothy roxaban and Apixaban will interfere with the anti Xa assay used to monitor UFH and LMWH. Performed By: #### L [id number] #### [facility] ([facility]) [address] [place] [address] HEPARIN UNFRACTIONATED (U/ML) IN PPP BY CHROMOGENIC METHOD 0.45 IU/mL Normal 0.3-0.7 [facility] Comment on above: Result Comment: Liza roxaban and Apixaban will interfere with the anti Xa assay used to monitor UFH and LMWH. Performed By: #### L [id number] ####[facility] ([facility])[address] [place] [address] BONE MARROW CELL DIFFERENTIA Ankur 03-19-2024 BM TOTAL CELLS COUNTED Normal [facility] Comment on above: Order Comment: See B one Marrow Exam Report Performed By: #### L [id number] #### [facility] ([facility]) [address] [place] [address] BONE MARROW EXAMon LAB AP ANCILLARY RESULTS Normal [facility] Comment on above: Result Comment: Anci frankie studies were completed at [facility]: Chromosomes, hematologic, bone marrow: - 46,XY[20]. Performed By: #### L [id number] ####[facility] ([facility])[address] [place] [address] LAB AP ASPIRATE SMEAR Normal [facility] Comment on above: Result Comment: The aspirate smears are adequately spiculate. The wfywsci-gq-ohhqxfxyj ratio is mildly decreased. Cells of the myeloid lineage are relatively decreased in number with normal maturation. There is no increase in blasts or dysplasia identified. Cells of the erythroid lineage are relatively increased in number with normal maturation. There is no evidence of overt dysplasia identified. Megakaryocytes appear adequate in number with predominantly normal morphology. Plasma cells are not increased in number and show no atypical features. Cell count: Blasts, 0%; progranulocytes, 1%; myelocytes, 13%; metamyelocytes, 5%: bands/segmented neutrophils, 30%; eosinophils, 1%; basophils, 0%; monocytes, 4%; lymphocytes, 9%; plasma cells, 1%; nucleated erythroid precursors, 36% (500 cells counted). Performed By: #### L AB6 ####[facility] (BEAKER)[address] [place] [facility] [place] [address] LAB AP ASR DISCLAIMER The interpretation of this case included the use of immunohistochemistry or special stains. These tests have not been cleared or approved by the U.S. Food and Drug Administration. The FDA has determined that such clearance or approval is not necessary. These tests are used for clinical purposes and should not be regarded as investigational or for research. This laboratory is certified to perform high complexity testing under the Clinical Laboratory Improvement Amendments of 1998. Normal [facility] Comment on above: Performed By: #### L AB6 ####[facility] (BEAKER)[address] [facility] [place] [address] LAB AP CASE REPORT Normal [facility] Comment on above: Result Comment: Bone Marrow Case: [id number] Authorizing Provider: Eduardo Cantu MD Collected: 03/19/2024 0946 Ordering Location: [facility] Received: 03/19/2024 1230 Pathologist: Mary Quinn MD Specimens: A) - Bone Marrow Clot B) - Bone Marrow Biopsy C) - Bone Marrow Clot Performed By: #### L AB6 ####[facility] (BEAKER)[address] [facility] [place] [address] LAB AP CBC AND DIFFERENTIAL Normal [facility] Comment on above: Result Comment: Comp lete blood count (CBC) done on 03/19/24 shows the following: WBC, 9.11 x 10^3/???L; hemoglobin, 8.2 g/dL; hematocrit, 25.6%; MCV, 91.4 fL; and platelet count, 214 x10^3/???L. Absolute neutrophil count, 6.51 x 10^3/???L; absolute lymphocyte count, 1.64 x 10^3/???L; absolute monocyte count, 0.77 x 10^3/???L; absolute eosinophil count, 0.09 x 10^3/???L; and absolute basophil count, 0.05 x 10^3/???L. Review of the peripheral blood smear reveals normocytic, normochromic anemia with gary cell morphology. There are adequate granulocytes, lymphocytes and monocytes with unremarkable leukocyte morphology. Platelets are adequate with normal morphology. Performed By: #### L AB6 ####[facility] ([facility])[address] [place] [address] LAB AP CLINICAL INFORMATION Order Diagnoses Normal [facility] Comment on above: Result Comment: I26. 99 - Pulmonary embolism without acute cor pulmonale, unspecified chronicity, unspecified pulmonary embolism type (CMS/HCC) [ICD-10-CM] J18.9 - Pneumonia of left lower lobe due to infectious organism [ICD-10-CM] E27.8 - Adrenal mass (CMS/HCC) [ICD-10-CM] F10.10 - Alcohol abuse [ICD-10-CM] Z72.0 - Tobacco use [ICD-10-CM] C34.92 - Primary adenocarcinoma of left lung (CMS/HCC) [ICD-10-CM] Performed By: #### L AB6 ####[facility] ([facility])[address] [place] [address] LAB AP CLOT SECTION Normal [facility] Comment on above: Result Comment: The aspirate clot section reveals adequate marrow particles. Marrow cellularity is variable, ranging between 40% and 70%, overall hypercellular for age. Maturing trilineage hematopoiesis is well represented with decreased disuiop-to-puqbphsuf ratio. No atypical proliferation is identified. Pankeratin immunostain is negative. Performed By: #### L AB6 ####[facility] ([facility])[address] [place] [address] LAB AP CORE BIOPSY Normal [facility] Comment on above: Result Comment: The fragmented core biopsy reveals 1.0 cm of evaluable marrow with significant aspiration artifact. There is a small nonparatrabecular lymphoid aggregate identified. CD20 and CD3 immunostains reveal rare B-cells and scattered T-cells, respectively; the lymphoid aggregate of interest is lost on the additional immunostains. 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 Normal [facility] Comment on above: Performed By: #### L AB6 ####[facility] ([facility])[address] [place] [address] LAB AP FLOW CYTOMETRY SUMMARY [facility] Comment on above: Result Comment: Flow cytometry studies were completed at [facility]: Bone marrow, flow cytometric immunophenotyping: - No increased in blasts. - The findings are suspicious for for the presence of a kappa light chain restricted B-cell population that represents approximately 1% of the total analyzed events. The significance of this finding is uncertain; it does not necessarily indicate involvement by a lymphoproliferative disorder. B-cells: Suspicious for monotypic kappa Express: CD19, CD20, CD22, CD200 (partial). Do not express: CD5, CD10, CD23, CD38, CD11c, CD103. Estimated size: 5% gated lymphoid events; 1% total analyzed events. Performed By: #### L [id number] ####[facility] ([facility])[address] [place] [address] LAB AP GROSS DESCRIPTION [facility] Comment on above: Result Comment: A. B one Marrow Clot. Received in formalin is a reddish-brown blood clot measuring 3.2 x 2.5 x 0.2 cm. It is submitted for routine histology in one cassette. B. Bone Marrow Biopsy. Received in formalin is a hard, reddish-gonsalves, cylindrical fragment of tissue measuring 1.5 x 0.2 x 0.2 cm. The specimen is submitted for decalcification and subsequent microscopy. C. Bone Marrow Clot. Received are multiple prepared glass slides for Roberts Giemsa staining. One slide is stained for iron. Performed By: #### L [id number] ####[facility] ([facility])[address] [place] [address] LAB AP REPORT FINAL DIAGNOSIS NARRATIVE Normal [facility] Comment on above: Result Comment: A-C. Bone marrow, aspirate smears, aspirate clot section, core biopsy and peripheral blood smear: - Mildly hypercellular bone marrow for age with maturing trilineage hematopoiesis. - Increased storage iron; no ring sideroblasts identified. - No evidence of overt dysplasia or metastatic carcinoma. - Small suspicious monoclonal B-cell population identified by flow cytometry. - See comment. Performed By: #### L [id number] ####[facility] ([facility])[address] [place] [address] LAB AP SPECIAL STAINS Normal [facility] Comment on above: Result Comment: Iron stains were completed on the aspirate clot section, core biopsy and aspirate smear. Storage iron is increased no ring sideroblasts are identified. Performed By: #### L [id number] ####[facility] ([facility])[address] [place] [address] CBC WITH AUTO DIFFERENTIALon 03-19-2024 Basophils (Bld) [#/Vol] 0.05 10*3/uL Normal 0.00-0.20 [facility] Comment on above: Performed By: #### L [id number] #### [facility] ([facility]) [address] [place] [address] Basophils/100 WBC (Bld) 0.5 % Normal 0.0-1.0 [facility] Comment on above: Performed By: #### L [id number] #### [facility] ([facility]) [address] [place] [address] Eosinophils (Bld) [#/Vol] 0.09 10*3/uL Normal 0.00-0.50 [facility] Comment on above: Performed By: #### L [id number] #### [facility] ([facility]) [address] [place] [address] Eosinophils/100 WBC (Bld) 1.0 % Normal 0.0-6.0 [facility] Comment on above: Performed By: #### L [id number] #### [facility] ([facility]) [address] [place] [address] Erythrocyte distribution width (RBC) [Ratio] 18.7 % High 11.5-15.0 [facility] Comment on above: Performed By: #### L [id number] #### [facility] ([facility]) [address] [place] [address] ERYTHROCYTE MEAN CORPUSCULAR HEMOGLOBIN CONCENTRATION (G/DL) BY AUTOMATED 32.0 g/dL Normal 32.0-35.0 [facility] Comment on above: Performed By: #### L [id number] #### [facility] ([facility]) [address] [place] [address] Hematocrit (Bld) [Volume fraction] 25.6 % Low 39.0-55.0 [facility] Comment on above: Performed By: #### L [id number] #### [facility] ([facility]) [address] [place] [address] Hemoglobin (Bld) [Mass/Vol] 8.2 g/dL Low 13.0-17.0 [facility] Comment on above: Performed By: #### L [id number] #### [facility] [address] [place] [address] Immature granulocytes (Bld) [#/Vol] 0.05 10*3/uL Normal 0.00-0.20 [facility] Comment on above: Performed By: #### L [id number] #### [facility] ([facility]) [address] [facility] [address] Immature granulocytes/100 WBC (Bld) 0.5 % Normal 0.0-1.0 [facility] Comment on above: Performed By: #### L [id number] #### [facility] ([facility]) [address] [facility] [place] [address] Lymphocytes (Bld) [#/Vol] 1.64 10*3/uL Normal 1.20-4.00 [facility] Comment on above: Performed By: #### L [id number] #### [facility] ([facility]) [address] [place] [address] Lymphocytes/100 WBC (Bld) 18.0 % Low 20.0-45.0 [facility] Comment on above: Performed By: #### L [id number] #### [facility] ([facility]) [address] [place] [address] MCH (RBC) [Entitic mass] 29.3 pg Normal 27.0-33.0 [facility] Comment on above: Performed By: #### L [id number] #### [facility] ([facility]) [address] [place] [address] MCV (RBC) [Entitic vol] 91.4 fL Normal 82.0-98.0 [facility] Comment on above: Performed By: #### L [id number] #### [facility] ([facility]) [address] [place] [address] Monocytes (Bld) [#/Vol] 0.77 10*3/uL Normal 0.10-1.00 [facility] Comment on above: Performed By: #### L [id number] #### [facility] ([facility]) [address] [place] [address] Monocytes/100 WBC (Bld) 8.5 % Normal 5.0-12.0 [facility] Comment on above: Performed By: #### L [id number] #### [facility] ([facility]) [address] [place] [address] Neutrophils (Bld) [#/Vol] 6.51 10*3/uL Normal 1.60-7.60 [facility] Comment on above: Performed By: #### L [id number] #### [facility] [address] [place] [address] Neutrophils/100 WBC (Bld) 71.5 % Normal 40.0-72.0 [facility] Comment on above: Performed By: #### L [id number] #### [facility] ([facility]) [address] [place] [address] NRBC (PER 100 WBCS) BY AUTOMATED COUNT 0.0 % Normal 0 [facility] Comment on above: Performed By: #### L [id number] #### [facility] ([facility]) [address] [place] [address] PLATELETS (10*3/UL) IN BLOOD AUTOMATED COUNT 214 10*3/uL Normal 150-400 [facility] Comment on above: Performed By: #### L [id number] #### [facility] ([facility]) [address] [place] [address] RBC (Bld) [#/Vol] 2.80 10*6/uL Low 4.20-5.70 [facility] Comment on above: Performed By: #### L [id number] #### [facility] ([facility]) [address] [place] [address] WBC (Bld) [#/Vol] 9.11 10*3/uL Normal 4.00-10.60 [facility] Comment on above: Performed By: #### L [id number] #### [facility] ([facility]) [address] [place] [address] COMPREHENSIVE METABOLIC PANE Ankur 03-19-2024 Albumin [Mass/Vol] 2.2 g/dL Low 3.5-5.7 [facility] Comment on above: Performed By: #### L [id number] #### [facility] ([facility]) [address] [place] [address] ALP [Catalytic activity/Vol] 91 U/L Normal 34-104 [facility] Comment on above: Performed By: #### L [id number] #### [facility] ([facility]) [address] [place] [address] ALT [Catalytic activity/Vol] 13 U/L Normal 7-52 [facility] Comment on above: Performed By: #### L [id number] #### [facility] ([facility]) [address] [place] [address] Anion gap [Moles/Vol] 10 mmol/L Normal 7-20 [facility] Comment on above: Performed By: #### L [id number] #### [facility] ([facility]) [address] [place] [address] AST [Catalytic activity/Vol] 27 U/L Normal 13-39 [facility] Comment on above: Performed By: #### L [id number] #### [facility] ([facility]) [address] [place] [address] Bilirubin [Mass/Vol] 0.7 mg/dL Normal 0.3-1.0 [facility] Comment on above: Performed By: #### L [id number] #### [facility] ([facility]) [address] [place] [address] Calcium [Mass/Vol] 7.9 mg/dL Low 8.6-10.3 [facility] Comment on above: Performed By: #### L [id number] #### [facility] ([facility]) [address] [place] [address] Chloride [Moles/Vol] 99 mmol/L Normal 98-107 [facility] Comment on above: Performed By: #### L [id number] #### [facility] ([facility]) [address] [place] [address] CO2 [Moles/Vol] 23 mmol/L Normal 21-31 [facility] Comment on above: Performed By: #### L [id number] #### [facility] ([facility]) [address] [place] [address] Creatinine [Mass/Vol] 0.67 mg/dL Low 0.70-1.30 [facility] Comment on above: Performed By: #### L [id number] #### [facility] ([facility]) [address] [place] [address] GLOMERULAR FILTRATION RATE ML/MIN/1.73 SQ M.PREDICTED 103.6 mL/min/1.73m*2 Normal >60.0 [facility] Comment on above: Result Comment: The [facility]???s estimated glomerular filtration rate (eGFR) will no longer include consideration of race in its calculation. The National Kidney Foundation???s eGFR Task Force developed new recommendations for the estimation of the glomerular filtration rate in the [place] They recommend immediate implementation of the new equation refit without the race variable in all laboratories because the calculation does not include race. In addition to not including race in the calculation and reporting, it included diversity in its development, and has acceptable performance characteristics and potential consequences that do not disproportionately affect any one group of individuals. Performed By: #### L [id number] #### [facility] ([facility]) [address] [place] [address] Glucose [Mass/Vol] 84 mg/dL Normal 70-100 [facility] Comment on above: Performed By: #### L [id number] #### [facility] ([facility]) [address] [place] [address] Potassium [Moles/Vol] 3.8 mmol/L Normal 3.5-5.1 [facility] Comment on above: Performed By: #### L [id number] #### [facility] ([facility]) [address] [place] [address] Protein [Mass/Vol] 5.1 g/dL Low 6.0-8.3 [facility] Comment on above: Performed By: #### L [id number] #### [facility] ([facility]) [address] [place] [address] Sodium [Moles/Vol] 128 mmol/L Low 136-145 [facility] Comment on above: Performed By: #### L [id number] #### [facility] ([facility]) [address] [place] [address] Urea nitrogen [Mass/Vol] 6 mg/dL Low 7-25 [facility] Comment on above: Performed By: #### L [id number] #### [facility] ([facility]) [address] [place] [address] UREA NITROGEN/CREATININE (MASS RATIO) IN SER/PLAS 9.0 Normal [facility] Comment on above: Performed By: #### L [id number] #### [facility] ([facility]) [address] [facility] [place] [address] HPon 03-19-2024 HP H&P reviewed. The patient was examined and there are no changes to the H&P. Normal [facility] OSMOLALITY, URINEon 03-19-19 25 OSMOLALITY, URINE 268 mOsm/kg Normal 80-1300 [facility] Comment on above: Result Comment: Test Performed by [employer] [address] [place] [id number] - Released 03/19/2024 14:20 Performed By: #### L [id number] #### [facility] ([facility]) [address] [place] [address] POCT GLUCOSE METER UNSOLICIT ED RESULTSon 03-19-2024 Glucose [Mass/Vol] 122 mg/dL High 70-105 [facility] Comment on above: Order Comment: Waive d Testing in the ED is performed under the ED CLIA certificate #[id number]. Result Comment: il [id number] Performed By: #### L [id number] ####[facility] ([facility])[address] [place] [address] PROTIME-INRon 03-19-2024 INR IN PPP BY COAGULATION ASSAY 1.22 High 0.90-1.10 [facility] Comment on above: Result Comment: ACCC P RECOMMENDED INR FOR WARFARIN THERAPY CONDITION INR PROPHYLAXIS OF VENOUS THROMBOSIS 2-3 (HIGH-RISK SURGERY) TREATMENT OF VENOUS THROMBOSIS 2-3 TREATMENT OF PULMONARY EMBOLISM 2-3 PREVENTION OF SYSTEMIC EMBOLISM: 2-3 ACUTE MYOCARDIAL INFARCTION TISSUE HEART VALVES VALVULAR HEART DISEASE ATRIAL FIBRILLATION RECURRENT SYSTEMIC EMBOLISM MECHANICAL HEART VALVE 2.5-3.5 FROM: ORAL ANTICOAGULANTS. MECHANISM OF ACTION, CLINICAL EFFECTIVENESS, AND OPTIMAL THERAPEUTIC RANGE. CHEST 1995;108:231S-246S. Performed By: #### L [id number] ####[facility] ([facility])[address] [place] [address] PROTHROMBIN TIME (PT) IN PPP BY COAGULATION ASSAY 15.4 Seconds High 12.3-14.8 Univers ity [facility] Comment on above: Performed By: #### L [id number] ####[facility] ([facility]ER)[address] [place] [address] SODIUM, URINE, RANDOMon 03-10 Sodium (U) [Moles/Vol] 84 mmol/L Normal Un iversity [facility] Comment on above: Performed By: #### L [id number] #### [facility] ([facility]) [address] [place] [address] 30on 03-18-2024 30 The patient is Moderately Stable - Low risk of patient condition declining or worsening The patient's goals for the shift include watch the superbowl The clinical goals for the shift include safety Problem: Pain - Adult Goal: Verbalizes/displays adequate comfort level or baseline comfort level 03/18/20242143 by Rosa Saavedra RN Outcome: Progressing Flowsheets (Taken 03/18/20242142) Verbalizes/displays adequate comfort level or baseline comfort level: Encourage patient to monitor pain and request assistance Assess pain using appropriate pain scale Administer analgesics based on type and severity of pain and evaluate response Implement non-pharmacological measures as appropriate and evaluate response Consider cultural and social influences on pain and pain management Notify Licensed Independent Practitioner if interventions unsuccessful or patient reports new pain 03/18/20242142 by Rosa Saavedra RN Outcome: Progressing Flowsheets (Taken 03/18/20242142) Verbalizes/displays adequate comfort level or baseline comfort level: Encourage patient to monitor pain and request assistance Assess pain using appropriate pain scale Administer analgesics based on type and severity of pain and evaluate response Implement non-pharmacological measures as appropriate and evaluate response Consider cultural and social influences on pain and pain management Notify Licensed Independent Practitioner if interventions unsuccessful or patient reports new pain Problem: Safety - Adult Goal: Free from fall injury 03/18/20242143 by Rosa Saavedra RN Outcome: Progressing Flowsheets (Taken 03/18/20242142) Free from fall injury: Assess patient frequently for physical needs Identify cognitive and physical deficits and behaviors that affect risk of falls [place] fall precautions as indicated by assessment Educate patient/family on patient safety, including physical limitations Instruct patient to call for assistance with activity based on assessment Modify environment to reduce risk of injury Consider OT/PT consult to assist with strengthening/mobility 03/18/20242142 by Rosa Saavedra RN Outcome: Progressing Flowsheets (Taken 03/18/20242142) Free from fall injury: Assess patient frequently for physical needs Identify cognitive and physical deficits and behaviors that affect risk of falls [place] fall precautions as indicated by assessment Educate patient/family on patient safety, including physical limitations Instruct patient to call for assistance with activity based on assessment Modify environment to reduce risk of injury Consider OT/PT consult to assist with strengthening/mobility Problem: Discharge Planning Goal: Discharge to home or other facility with appropriate resources 03/18/20242143 by Rosa Saavedra RN Outcome: Progressing Flowsheets (Taken 03/18/20242142) Discharge to home or other facility with appropriate resources: Identify barriers to discharge with patient and caregiver Arrange for needed discharge resources and transportation as appropriate Identify discharge learning needs (meds, wound care, etc) 03/18/20242142 by Rosa Saavedra RN Outcome: Progressing Flowsheets (Taken 03/18/20242142) Discharge to home or other facility with appropriate resources: Identify barriers to discharge with patient and caregiver Arrange for needed discharge resources and transportation as appropriate Identify discharge learning needs (meds, wound care, etc) Problem: Chronic Conditions and Co-morbidities Goal: Patient's chronic conditions and co-morbidity symptoms are monitored and maintained or improved 03/18/20242143 by Rosa Saavedra RN Outcome: Progressing Flowsheets (Taken 03/18/20242142) Care Plan - Patient's Chronic Conditions and Co-Morbidity Symptoms are Monitored and Maintained or Improved: Monitor and assess patient's chronic conditions and comorbid symptoms for stability, deterioration, or improvement Collaborate with multidisciplinary team to address chronic and comorbid conditions and prevent exacerbation or deterioration Update acute care plan with appropriate goals if chronic or comorbid symptoms are exacerbated and prevent overall improvement and discharge 03/18/20242142 by Rosa Saavedra RN Outcome: Progressing Flowsheets (Taken 03/18/20242142) Care Plan - Patient's Chronic Conditions and Co-Morbidity Symptoms are Monitored and Maintained or Improved: Monitor and assess patient's chronic conditions and comorbid symptoms for stability, deterioration, or improvement Collaborate with multidisciplinary team to address chronic and comorbid conditions and prevent exacerbation or deterioration Update acute care plan with appropriate goals if chronic or comorbid symptoms are exacerbated and prevent overall improvement and discharge Problem: Neurosensory - Adult Goal: Achieves stable or improved neurological status 03/18/20242143 by Rosa Saavedra RN Outcome: Progressing Flowsheets (Taken 03/18/2024 2 (more content not included)... Normal [facility] 30 The patient is Moderately Stable - Low risk of patient condition declining or worsening The patient's goals for the shift include watch the superbowl The clinical goals for the shift include safety Problem: Pain - Adult Goal: Verbalizes/displays adequate comfort level or baseline comfort level Outcome: Progressing Flowsheets (Taken 03/18/2024799) Verbalizes/displays adequate comfort level or baseline comfort level: Encourage patient to monitor pain and request assistance Assess pain using appropriate pain scale Notify Licensed Independent Practitioner if interventions unsuccessful or patient reports new pain Consider cultural and social influences on pain and pain management Implement non-pharmacological measures as appropriate and evaluate response Administer analgesics based on type and severity of pain and evaluate response Problem: Safety - Adult Goal: Free from fall injury Outcome: Progressing Flowsheets (Taken 03/18/2024799) Free from fall injury: Assess patient frequently for physical needs Identify cognitive and physical deficits and behaviors that affect risk of falls [place] fall precautions as indicated by assessment Educate patient/family on patient safety, including physical limitations Instruct patient to call for assistance with activity based on assessment Modify environment to reduce risk of injury Consider OT/PT consult to assist with strengthening/mobility Problem: Discharge Planning Goal: Discharge to home or other facility with appropriate resources Outcome: Progressing Flowsheets (Taken 03/18/2024799) Discharge to home or other facility with appropriate resources: Identify barriers to discharge with patient and caregiver Refer to discharge planning if patient needs post-hospital services based on physician order or complex needs related to functional status, cognitive ability or social support system Arrange for interpreters to assist at discharge as needed Identify discharge learning needs (meds, wound care, etc) Arrange for needed discharge resources and transportation as appropriate Problem: Chronic Conditions and Co-morbidities Goal: Patient's chronic conditions and co-morbidity symptoms are monitored and maintained or improved Outcome: Progressing Flowsheets (Taken 03/18/2024799) Care Plan - Patient's Chronic Conditions and Co-Morbidity Symptoms are Monitored and Maintained or Improved: Monitor and assess patient's chronic conditions and comorbid symptoms for stability, deterioration, or improvement Collaborate with multidisciplinary team to address chronic and comorbid conditions and prevent exacerbation or deterioration Update acute care plan with appropriate goals if chronic or comorbid symptoms are exacerbated and prevent overall improvement and discharge Normal [facility] ANTI-XA (HEPARIN LEVEL)on HEPARIN UNFRACTIONATED (U/ML) IN PPP BY CHROMOGENIC METHOD 0.60 IU/mL Normal 0.3-0.7 [facility] Comment on above: Result Comment: Dorothy roxaban and Apixaban will interfere with the anti Xa assay used to monitor UFH and LMWH. Performed By: #### L [id number] ####[facility] ([facility])[address] [place] [address] HEPARIN UNFRACTIONATED (U/ML) IN PPP BY CHROMOGENIC METHOD 0.33 IU/mL Normal 0.3-0.7 [facility] Comment on above: Result Comment: Liza roxaban and Apixaban will interfere with the anti Xa assay used to monitor UFH and LMWH. Performed By: #### L [id number] #### [facility] ([facility]) [address] [place] [address] CBC WITH AUTO DIFFERENTIALon 03-18-2024 Basophils (Bld) [#/Vol] 0.04 10*3/uL Normal 0.00-0.20 [facility] Comment on above: Performed By: #### L [id number] #### [facility] ([facility]) [address] [place] [address] Basophils/100 WBC (Bld) 0.4 % Normal 0.0-1.0 [facility] Comment on above: Performed By: #### L [id number] #### [facility] ([facility]ER) [address] [place] [address] Eosinophils (Bld) [#/Vol] 0.06 10*3/uL Normal 0.00-0.50 [facility] Comment on above: Performed By: #### L [id number] #### [facility] ([facility]) [address] [place] [address] Eosinophils/100 WBC (Bld) 0.7 % Normal 0.0-6.0 [facility] Comment on above: Performed By: #### L [id number] #### [facility] ([facility]) [address] [place] [address] Erythrocyte distribution width (RBC) [Ratio] 18.7 % High 11.5-15.0 [facility] Comment on above: Performed By: #### L [id number] #### [facility] ([facility]) [address] [place] [address] ERYTHROCYTE MEAN CORPUSCULAR HEMOGLOBIN CONCENTRATION (G/DL) BY AUTOMATED 32.8 g/dL Normal 32.0-35.0 [facility] Comment on above: Performed By: #### L [id number] #### [facility] ([facility]) [address] [place] [address] Hematocrit (Bld) [Volume fraction] 24.4 % Low 39.0-55.0 [facility] Comment on above: Performed By: #### L [id number] #### [facility] ([facility]) [address] [place] [address] Hemoglobin (Bld) [Mass/Vol] 8.0 g/dL Low 13.0-17.0 [facility] Comment on above: Performed By: #### L [id number] #### [facility] ([facility]) [address] [place] [address] Immature granulocytes (Bld) [#/Vol] 0.05 10*3/uL Normal 0.00-0.20 [facility] Comment on above: Performed By: #### L [id number] #### [facility] ([facility]) [address] [place] [address] Immature granulocytes/100 WBC (Bld) 0.5 % Normal 0.0-1.0 [facility] Comment on above: Performed By: #### L [id number] #### [facility] [address] [place] [address] Lymphocytes (Bld) [#/Vol] 1.62 10*3/uL Normal 1.20-4.00 [facility] Comment on above: Performed By: #### L [id number] #### [facility] ([facility]) [address] [place] [address] Lymphocytes/100 WBC (Bld) 17.6 % Low 20.0-45.0 [facility] Comment on above: Performed By: #### L [id number] #### [facility] ([facility]) [address] [place] [address] MCH (RBC) [Entitic mass] 29.3 pg Normal 27.0-33.0 [facility] Comment on above: Performed By: #### L [id number] #### [facility] ([facility]) [address] [place] [address] MCV (RBC) [Entitic vol] 89.4 fL Normal 82.0-98.0 [facility] Comment on above: Performed By: #### L [id number] #### [facility] ([facility]) [address] [place] [address] Monocytes (Bld) [#/Vol] 0.77 10*3/uL Normal 0.10-1.00 [facility] Comment on above: Performed By: #### L [id number] #### [facility] ([facility]) [address] [place] [address] Monocytes/100 WBC (Bld) 8.4 % Normal 5.0-12.0 [facility] Comment on above: Performed By: #### L [id number] #### [facility] [address] [place] [address] Neutrophils (Bld) [#/Vol] 6.65 10*3/uL Normal 1.60-7.60 [facility] Comment on above: Performed By: #### L [id number] #### [facility] ([facility]) [address] [place] [address] Neutrophils/100 WBC (Bld) 72.4 % High 40.0-72.0 [facility] Comment on above: Performed By: #### L [id number] #### [facility] ([facility]) [address] [place] [address] NRBC (PER 100 WBCS) BY AUTOMATED COUNT 0.0 % Normal 0 [facility] Comment on above: Performed By: #### L [id number] #### [facility] ([facility]) [address] [place] [address] PLATELETS (10*3/UL) IN BLOOD AUTOMATED COUNT 238 10*3/uL Normal 150-400 [facility] Comment on above: Performed By: #### L [id number] #### [facility] ([facility]) [address] [place] [address] RBC (Bld) [#/Vol] 2.73 10*6/uL Low 4.20-5.70 [facility] Comment on above: Performed By: #### L [id number] #### [facility] ([facility] [address] [place] [address] WBC (Bld) [#/Vol] 9.19 10*3/uL Normal 4.00-10.60 [facility] Comment on above: Performed By: #### L [id number] #### [facility] ([facility]) [address] [place] [address] COMPREHENSIVE METABOLIC PANE Ankur 03-18-2024 Albumin [Mass/Vol] 2.2 g/dL Low 3.5-5.7 [facility] Comment on above: Performed By: #### L [id number] #### [facility] ([facility]) [address] [place] [address] ALP [Catalytic activity/Vol] 81 U/L Normal 34-104 [facility] Comment on above: Performed By: #### L [id number] #### [facility] ([facility]) [address] [place] [address] ALT [Catalytic activity/Vol] 16 U/L Normal 7-52 [facility] Comment on above: Performed By: #### L [id number] #### [facility] ([facility]) [address] [place] [address] Anion gap [Moles/Vol] 10 mmol/L Normal 7-20 [facility] Comment on above: Performed By: #### L [id number] #### [facility] ([facility]) [address] [place] [address] AST [Catalytic activity/Vol] 26 U/L Normal 13-39 [facility] Comment on above: Performed By: #### L [id number] #### [facility] ([facility]) [address] [place] [address] Bilirubin [Mass/Vol] 0.7 mg/dL Normal 0.3-1.0 [facility] Comment on above: Performed By: #### L [id number] #### [facility] ([facility]) [address] [place] [address] Calcium [Mass/Vol] 7.9 mg/dL Low 8.6-10.3 [facility] Comment on above: Performed By: #### L [id number] #### [facility] ([facility]) [address] [place] [address] Chloride [Moles/Vol] 100 mmol/L Normal 98-107 [facility] Comment on above: Performed By: #### L [id number] #### [facility] [address] [place] [address] CO2 [Moles/Vol] 23 mmol/L Normal 21-31 [facility] Comment on above: Performed By: #### L [id number] #### [facility] ([facility]) [address] [place] [address] Creatinine [Mass/Vol] 0.66 mg/dL Low 0.70-1.30 [facility] Comment on above: Performed By: #### L [id number] #### [facility] ([facility]) [address] [place] [address] GLOMERULAR FILTRATION RATE ML/MIN/1.73 SQ M.PREDICTED 104.1 mL/min/1.73m*2 Normal >60.0 [facility] Comment on above: Result Comment: The [facility]???s estimated glomerular filtration rate (eGFR) will no longer include consideration of race in its calculation. The National Kidney Foundation???s eGFR Task Force developed new recommendations for the estimation of the glomerular filtration rate in the [place] They recommend immediate implementation of the new equation refit without the race variable in all laboratories because the calculation does not include race. In addition to not including race in the calculation and reporting, it included diversity in its development, and has acceptable performance characteristics and potential consequences that do not disproportionately affect any one group of individuals. Performed By: #### L [id number] #### [facility] ([facility]) [address] [place] [address] Glucose [Mass/Vol] 88 mg/dL Normal 70-100 [facility] Comment on above: Performed By: #### L [id number] #### [facility] ([facility]) [address] [place] [address] Potassium [Moles/Vol] 4.1 mmol/L Normal 3.5-5.1 [facility] Comment on above: Performed By: #### L [id number] #### [facility] ([facility]) [address] [place] [address] Protein [Mass/Vol] 5.0 g/dL Low 6.0-8.3 [facility] Comment on above: Performed By: #### L [id number] #### [facility] ([facility]) [address] [place] [address] Sodium [Moles/Vol] 129 mmol/L Low 136-145 [facility] Comment on above: Performed By: #### L [id number] #### [facility] ([facility]) [address] [place] [address] Urea nitrogen [Mass/Vol] 7 mg/dL Normal 7-25 [facility] Comment on above: Performed By: #### L [id number] #### [facility] ([facility]) [address] [place] [address] UREA NITROGEN/CREATININE (MASS RATIO) IN SER/PLAS 10.6 Normal [facility] Comment on above: Performed By: #### L [id number] #### [facility] ([facility]) [address] [place] [address] PROTIME-INRon 03-18-2024 INR IN PPP BY COAGULATION ASSAY 1.14 High 0.90-1.10 [facility] Comment on above: Result Comment: [facility] P RECOMMENDED INR FOR WARFARIN THERAPY CONDITION INR PROPHYLAXIS OF VENOUS THROMBOSIS 2-3 (HIGH-RISK SURGERY) TREATMENT OF VENOUS THROMBOSIS 2-3 TREATMENT OF PULMONARY EMBOLISM 2-3 PREVENTION OF SYSTEMIC EMBOLISM: 2-3 ACUTE MYOCARDIAL INFARCTION TISSUE HEART VALVES VALVULAR HEART DISEASE ATRIAL FIBRILLATION RECURRENT SYSTEMIC EMBOLISM MECHANICAL HEART VALVE 2.5-3.5 FROM: ORAL ANTICOAGULANTS. MECHANISM OF ACTION, CLINICAL EFFECTIVENESS, AND OPTIMAL THERAPEUTIC RANGE. CHEST 1995;108:231S-246S. Performed By: #### L [id number] ####[facility] ([facility])[address] [place] [address] PROTHROMBIN TIME (PT) IN PPP BY COAGULATION ASSAY 14.6 Seconds Normal 12.3-14.8 [facility] Comment on above: Performed By: #### L [id number] ####[facility] ([facility])[address] [place] [address] 30on 03-17-2024 30 Problem: Pain - Adul t Goal: Verbalizes/displays adequate comfort level or baseline comfort level Outcome: Progressing Flowsheets (Taken 03/17/20242039) Verbalizes/displays adequate comfort level or baseline comfort level: Encourage patient to monitor pain and request assistance Assess pain using appropriate pain scale Administer analgesics based on type and severity of pain and evaluate response Problem: Safety - Adult Goal: Free from fall injury Outcome: Progressing Problem: Discharge Planning Goal: Discharge to home or other facility with appropriate resources Outcome: Progressing The patient is Moderately Unstable - Medium risk of patient condition declining or worsening The patient's goals for the shift include comfort The clinical goals for the shift include safety Normal [facility] 30 The patient is Moderately Stable - Low risk of patient condition declining or worsening The patient's goals for the shift include comfort The clinical goals for the shift include safety Problem: Pain - Adult Goal: Verbalizes/displays adequate comfort level or baseline comfort level Outcome: Progressing Flowsheets (Taken 03/17/2024799) Verbalizes/displays adequate comfort level or baseline comfort level: Encourage patient to monitor pain and request assistance Assess pain using appropriate pain scale Notify Licensed Independent Practitioner if interventions unsuccessful or patient reports new pain Administer analgesics based on type and severity of pain and evaluate response Implement non-pharmacological measures as appropriate and evaluate response Consider cultural and social influences on pain and pain management Problem: Safety - Adult Goal: Free from fall injury Outcome: Progressing Flowsheets (Taken 03/17/2024799) Free from fall injury: Assess patient frequently for physical needs Identify cognitive and physical deficits and behaviors that affect risk of falls Educate patient/family on patient safety, including physical limitations Instruct patient to call for assistance with activity based on assessment Modify environment to reduce risk of injury Consider OT/PT consult to assist with strengthening/mobility [place] fall precautions as indicated by assessment Problem: Discharge Planning Goal: Discharge to home or other facility with appropriate resources Outcome: Progressing Flowsheets (Taken 03/17/2024799) Discharge to home or other facility with appropriate resources: Identify barriers to discharge with patient and caregiver Arrange for needed discharge resources and transportation as appropriate Identify discharge learning needs (meds, wound care, etc) Arrange for interpreters to assist at discharge as needed Refer to discharge planning if patient needs post-hospital services based on physician order or complex needs related to functional status, cognitive ability or social support system Problem: Chronic Conditions and Co-morbidities Goal: Patient's chronic conditions and co-morbidity symptoms are monitored and maintained or improved Outcome: Progressing Flowsheets (Taken 03/17/2024799) Care Plan - Patient's Chronic Conditions and Co-Morbidity Symptoms are Monitored and Maintained or Improved: Monitor and assess patient's chronic conditions and comorbid symptoms for stability, deterioration, or improvement Collaborate with multidisciplinary team to address chronic and comorbid conditions and prevent exacerbation or deterioration Update acute care plan with appropriate goals if chronic or comorbid symptoms are exacerbated and prevent overall improvement and discharge Normal [facility] ANTI-XA (HEPARIN LEVEL)on HEPARIN UNFRACTIONATED (U/ML) IN PPP BY CHROMOGENIC METHOD 0.17 IU/mL Low 0.3-0.7 [facility] Comment on above: Result Comment: Liza roxaban and Apixaban will interfere with the anti Xa assay used to monitor UFH and LMWH. Performed By: #### L [id number] #### [facility] ([facility]) [address] [place] [address] HEPARIN UNFRACTIONATED (U/ML) IN PPP BY CHROMOGENIC METHOD 0.20 IU/mL Low 0.3-0.7 [facility] Comment on above: Result Comment: Liza roxaban and Apixaban will interfere with the anti Xa assay used to monitor UFH and LMWH. Performed By: #### L [id number] ####[facility] ([facility])[address] [place] [address] HEPARIN UNFRACTIONATED (U/ML) IN PPP BY CHROMOGENIC METHOD 0.20 IU/mL Low 0.3-0.7 [facility] Comment on above: Result Comment: Liza roxaban and Apixaban will interfere with the anti Xa assay used to monitor UFH and LMWH. Performed By: #### L [id number] ####[facility] ([facility])[address] [place] [address] CBC WITH AUTO DIFFERENTIALon 03-17-2024 Basophils (Bld) [#/Vol] 0.04 10*3/uL Normal 0.00-0.20 [facility] Comment on above: Performed By: #### L [id number] #### [facility] ([facility]) [address] [place] [address] Basophils/100 WBC (Bld) 0.6 % Normal 0.0-1.0 [facility] Comment on above: Performed By: #### L [id number] #### [facility] ([facility]) [address] [place] [address] Eosinophils (Bld) [#/Vol] 0.08 10*3/uL Normal 0.00-0.50 [facility] Comment on above: Performed By: #### L [id number] #### [facility] ([facility]) [address] [place] [address] Eosinophils/100 WBC (Bld) 1.1 % Normal 0.0-6.0 [facility] Comment on above: Performed By: #### L [id number] #### [facility] ([facility]) [address] [place] [address] Erythrocyte distribution width (RBC) [Ratio] 19.1 % High 11.5-15.0 [facility] Comment on above: Performed By: #### L [id number] #### [facility] ([facility]) [address] [place] [address] ERYTHROCYTE MEAN CORPUSCULAR HEMOGLOBIN CONCENTRATION (G/DL) BY AUTOMATED 32.4 g/dL Normal 32.0-35.0 [facility] Comment on above: Performed By: #### L [id number] #### [facility] ([facility]) [address] [place] [address] Hematocrit (Bld) [Volume fraction] 25.6 % Low 39.0-55.0 [facility] Comment on above: Performed By: #### L [id number] #### [facility] [address] [address] Hemoglobin (Bld) [Mass/Vol] 8.3 g/dL Low 13.0-17.0 [facility] Comment on above: Performed By: #### L [id number] #### [facility] ([facility]) [address] [place] [address] Immature granulocytes (Bld) [#/Vol] 0.03 10*3/uL Normal 0.00-0.20 [facility] Comment on above: Performed By: #### L [id number] #### [facility] ([facility]) [address] [place] [address] Immature granulocytes/100 WBC (Bld) 0.4 % Normal 0.0-1.0 [facility] Comment on above: Performed By: #### L [id number] #### [facility] ([facility]) [address] [place] [address] Lymphocytes (Bld) [#/Vol] 1.20 10*3/uL Normal 1.20-4.00 [facility] Comment on above: Performed By: #### L [id number] #### [facility] ([facility]) [address] [place] [address] Lymphocytes/100 WBC (Bld) 17.2 % Low 20.0-45.0 [facility] Comment on above: Performed By: #### L [id number] #### [facility] ([facility]) [address] [address] MCH (RBC) [Entitic mass] 29.3 pg Normal 27.0-33.0 [facility] Comment on above: Performed By: #### L [id number] #### [facility] [address] [address] MCV (RBC) [Entitic vol] 90.5 fL Normal 82.0-98.0 [facility] Comment on above: Performed By: #### L [id number] #### [facility] ([facility]) [address] [place] [address] Monocytes (Bld) [#/Vol] 0.49 10*3/uL Normal 0.10-1.00 [facility] Comment on above: Performed By: #### L [id number] #### [facility] ([facility]) [address] [place] [address] Monocytes/100 WBC (Bld) 7.0 % Normal 5.0-12.0 [facility] Comment on above: Performed By: #### L [id number] #### [facility] ([facility]) [address] [place] [address] Neutrophils (Bld) [#/Vol] 5.12 10*3/uL Normal 1.60-7.60 [facility] Comment on above: Performed By: #### L [id number] #### [facility] ([facility]) [address] [place] [address] Neutrophils/100 WBC (Bld) 73.7 % High 40.0-72.0 [facility] Comment on above: Performed By: #### L [id number] #### [facility] ([facility]) [address] [place] [address] NRBC (PER 100 WBCS) BY AUTOMATED COUNT 0.0 % Normal 0 [facility] Comment on above: Performed By: #### L [id number] #### [facility] [address] [place] [address] PLATELETS (10*3/UL) IN BLOOD AUTOMATED COUNT 239 10*3/uL Normal 150-400 [facility] Comment on above: Performed By: #### L [id number] #### [facility] [address] [place] [address] RBC (Bld) [#/Vol] 2.83 10*6/uL Low 4.20-5.70 [facility] Comment on above: Performed By: #### L [id number] #### [facility] ([facility]) [address] [place] [address] WBC (Bld) [#/Vol] 6.96 10*3/uL Normal 4.00-10.60 [facility] Comment on above: Performed By: #### L [id number] #### [facility] ([facility]) [address] [place] [address] COMPREHENSIVE METABOLIC PANE Ankur 03-17-2024 Albumin [Mass/Vol] 2.2 g/dL Low 3.5-5.7 [facility] Comment on above: Performed By: #### L [id number] ####[facility] ([facility] [place] [address] ALP [Catalytic activity/Vol] 85 U/L Normal 34-104 [facility] Comment on above: Performed By: #### L [id number] ####[facility] ([facility])[address] [place] [address] ALT [Catalytic activity/Vol] 18 U/L Normal 7-52 [facility] Comment on above: Performed By: #### L [id number] ####[facility] ([facility] [place] [address] Anion gap [Moles/Vol] 9 mmol/L Normal 7-20 [facility] Comment on above: Performed By: #### L [id number] ####[facility] ([facility] [place] [address] AST [Catalytic activity/Vol] 32 U/L Normal 13-39 [facility] Comment on above: Performed By: #### L [id number] ####[facility] ([facility] [place] [address] Bilirubin [Mass/Vol] 0.7 mg/dL Normal 0.3-1.0 [facility] Comment on above: Performed By: #### L [id number] ####[facility] ([facility])[address] [place] [address] Calcium [Mass/Vol] 8.0 mg/dL Low 8.6-10.3 [facility] Comment on above: Performed By: #### L [id number] ####[facility] ([facility])[address] [place] [address] Chloride [Moles/Vol] 102 mmol/L Normal 98-107 [facility] Comment on above: Performed By: #### L [id number] ####[facility] ([facility] [place] [address] CO2 [Moles/Vol] 25 mmol/L Normal 21-31 [facility] Comment on above: Performed By: #### L [id number] ####[facility] ([facility])[address] [place] [address] Creatinine [Mass/Vol] 0.75 mg/dL Normal 0.70-1.30 [facility] Comment on above: Performed By: #### L [id number] ####[facility] ([facility])[address] [place] [address] GLOMERULAR FILTRATION RATE ML/MIN/1.73 SQ M.PREDICTED 100.1 mL/min/1.73m*2 Normal >60.0 [facility] Comment on above: Result Comment: The [facility]???s estimated glomerular filtration rate (eGFR) will no longer include consideration of race in its calculation. The National Kidney Foundation???s eGFR Task Force developed new recommendations for the estimation of the glomerular filtration rate in the [place] They recommend immediate implementation of the new equation refit without the race variable in all laboratories because the calculation does not include race. In addition to not including race in the calculation and reporting, it included diversity in its development, and has acceptable performance characteristics and potential consequences that do not disproportionately affect any one group of individuals. Performed By: #### L [id number] ####[facility] ([facility])[address] [place] [address] Glucose [Mass/Vol] 88 mg/dL Normal 70-100 [facility] Comment on above: Performed By: #### L [id number] ####[facility] ([facility])[address] [place] [address] Potassium [Moles/Vol] 3.2 mmol/L Low 3.5-5.1 [facility] Comment on above: Performed By: #### L [id number] ####[facility] ([facility])[address] [place] [address] Protein [Mass/Vol] 5.2 g/dL Low 6.0-8.3 [facility] Comment on above: Performed By: #### L [id number] ####[facility] ([facility])[address] [place] [address] Sodium [Moles/Vol] 133 mmol/L Low 136-145 [facility] Comment on above: Performed By: #### L [id number] ####[facility] ([facility])[address] [place] [address] Urea nitrogen [Mass/Vol] 7 mg/dL Normal 7-25 [facility] Comment on above: Performed By: #### L [id number] ####[facility] ([facility])[address] [place] [address] UREA NITROGEN/CREATININE (MASS RATIO) IN SER/PLAS 9.3 Normal [facility] Comment on above: Performed By: #### L [id number] ####[facility] ([facility])[address] [place] [address] PROTIME-INRon 03-17-2024 INR IN PPP BY COAGULATION ASSAY 1.04 Normal 0.90-1.10 [facility] Comment on above: Result Comment: [facility] P RECOMMENDED INR FOR WARFARIN THERAPY CONDITION INR PROPHYLAXIS OF VENOUS THROMBOSIS 2-3 (HIGH-RISK SURGERY) TREATMENT OF VENOUS THROMBOSIS 2-3 TREATMENT OF PULMONARY EMBOLISM 2-3 PREVENTION OF SYSTEMIC EMBOLISM: 2-3 ACUTE MYOCARDIAL INFARCTION TISSUE HEART VALVES VALVULAR HEART DISEASE ATRIAL FIBRILLATION RECURRENT SYSTEMIC EMBOLISM MECHANICAL HEART VALVE 2.5-3.5 FROM: ORAL ANTICOAGULANTS. MECHANISM OF ACTION, CLINICAL EFFECTIVENESS, AND OPTIMAL THERAPEUTIC RANGE. CHEST 1995;108:231S-246S. Performed By: #### L [id number] ####[facility] ([facility])[address] [place] [address] PROTHROMBIN TIME (PT) IN PPP BY COAGULATION ASSAY 13.6 Seconds Normal 12.3-14.8 [facility] Comment on above: Performed By: #### L [id number] ####[facility] ([facility])[address] [place] [address] 30on 03-16-2024 30 The patient is Moderately Stable - Low risk of patient condition declining or worsening The patient's goals for the shift include comfort The clinical goals for the shift include safety Over the shift, the patient did not make progress toward the following goals. Barriers to progression include weakness. Recommendations to address these barriers include making changes to the current treatment plan as needed. Problem: Musculoskeletal - Adult Goal: Return mobility to safest level of function Outcome: Not Progressing Flowsheets (Taken 03/16/20241999) Return mobility to safest level of function: Assess patient stability and activity tolerance for standing, transferring and ambulating with or without assistive devices Assist with transfers and ambulation using safe patient handling equipment as needed Ensure adequate protection for wounds/incisions during mobilization Obtain physical therapy/occupational therapy consults as needed Apply continuous passive motion per provider or physical therapy orders to increase flexion toward goal Instruct patient/family in ordered activity level Goal: Return ADL status to a safe level of function Outcome: Not Progressing Flowsheets (Taken 03/16/20241999) Return ADL status to a safe level of function: Administer medication as ordered Assess activities of daily living deficits and provide assistive devices as needed Obtain physical therapy/occupational therapy consults as needed Assist and instruct patient to increase activity and self care as tolerated Normal [facility] 30 Daily Case Managemen t Update Multidisciplinary rounds have been completed. Barriers to Discharge: Pending clinical course; adrenal gland biopsy today; pending bone marrow biopsy, tentative for Tuesday. Heparin gtt on hold, plan to bridge to warfarin. Plan to discharge home when medically cleared and follow up with the [facility] hemoc. Diet: Dietary Orders (From admission, onward) Start Ordered 03/16/24 155 Regular Diet Diet effective now Question: Room Service? Answer: Yes 03/16/24 1555 03/14/24 1645 Dietary nutrition supplements Lunch; Magic Cup; Vanilla; 4 oz; Oral Until discontinued Question Answer Comment Deliver with Lunch Select supplement: Magic Cup Flavors: Vanilla Strength: 4 oz Route Oral 03/14/24 1644 03/14/24 1645 Dietary nutrition supplements Dinner; Magic Cup; Butter Pecan; 4 oz; Oral Until discontinued Question Answer Comment Deliver with Dinner Select supplement: Magic Cup Flavors: Butter Pecan Strength: 4 oz Route Oral 03/14/24 1644 Physician Expected Discharge Date: 03/16/2024 PT Six Click Score: 20 OT Six Click Score: 21 PT Recommendations: Home OT Recommendations: Home New Consults: Therapy Orders (From admission, onward) Start Ordered 03/14/24 1115 PT eval and treat Until therapy completed Question: Reason for PT? Answer: weakness 03/14/24 1114 03/14/24 1115 OT eval and treat Until therapy completed Question: Reason for OT? Answer: weakness 03/14/24 1114 Normal [facility] 30 The patient is Moderately Stable - Low risk of patient condition declining or worsening The patient's goals for the shift include rest The clinical goals for the shift include vss/ Complete Biopsy Over the shift, the patient did make progress toward the following goals. Problem: Safety - Adult Goal: Free from fall injury Outcome: Progressing Problem: Pain - Adult Goal: Verbalizes/displays adequate comfort level or baseline comfort level Outcome: Progressing Normal [facility] ANTI-XA (HEPARIN LEVEL)on HEPARIN UNFRACTIONATED (U/ML) IN PPP BY CHROMOGENIC METHOD 0.37 IU/mL Normal 0.3-0.7 [facility] Comment on above: Order Comment: Check anti-Xa level every 6 hours while on heparin infusion, or per protocol. Result Comment: Liza roxaban and Apixaban will interfere with the anti Xa assay used to monitor UFH and LMWH. Performed By: #### L [id number] #### [facility] ([facility]) [address] [place] [address] CBC WITH AUTO DIFFERENTIALon 03-16-2024 Basophils (Bld) [#/Vol] 0.04 10*3/uL Normal 0.00-0.20 [facility] Comment on above: Performed By: #### L [id number] ####[facility] ([facility])[address] [place] [address] Basophils/100 WBC (Bld) 0.6 % Normal 0.0-1.0 [facility] Comment on above: Performed By: #### L [id number] ####[facility] ([facility])[address] [place] [address] Eosinophils (Bld) [#/Vol] 0.08 10*3/uL Normal 0.00-0.50 [facility] Comment on above: Performed By: #### L [id number] ####[facility] ([facility])[address] [place] [address] Eosinophils/100 WBC (Bld) 1.2 % Normal 0.0-6.0 [facility] Comment on above: Performed By: #### L [id number] ####[facility] ([facility])[address] [place] [address] Erythrocyte distribution width (RBC) [Ratio] 18.9 % High 11.5-15.0 [facility] Comment on above: Performed By: #### L [id number] ####[facility] ([facility])[address] [place] [address] ERYTHROCYTE MEAN CORPUSCULAR HEMOGLOBIN CONCENTRATION (G/DL) BY AUTOMATED 32.6 g/dL Normal 32.0-35.0 [facility] Comment on above: Performed By: #### L [id number] ####[facility] ([facility])[address] [place] [address] Hematocrit (Bld) [Volume fraction] 23.6 % Low 39.0-55.0 [facility] Comment on above: Performed By: #### L [id number] ####[facility] ([facility])[address] [place] [address] Hemoglobin (Bld) [Mass/Vol] 7.7 g/dL Low 13.0-17.0 [facility] Comment on above: Performed By: #### L [id number] ####[facility] ([facility])[address] [place] [address] Immature granulocytes (Bld) [#/Vol] 0.04 10*3/uL Normal 0.00-0.20 [facility] Comment on above: Performed By: #### L [id number] ####[facility] ([facility])[address] [place] [address] Immature granulocytes/100 WBC (Bld) 0.6 % Normal 0.0-1.0 [facility] Comment on above: Performed By: #### L [id number] ####[facility] ([facility])[address] [place] [address] Lymphocytes (Bld) [#/Vol] 1.54 10*3/uL Normal 1.20-4.00 [facility] Comment on above: Performed By: #### L [id number] ####[facility] ([facility])[address] [place] [address] Lymphocytes/100 WBC (Bld) 23.4 % Normal 20.0-45.0 [facility] Comment on above: Performed By: #### L [id number] ####[facility] ([facility])[address] [place] [address] MCH (RBC) [Entitic mass] 28.7 pg Normal 27.0-33.0 [facility] Comment on above: Performed By: #### L [id number] ####[facility] ([facility])[address] [place] [address] MCV (RBC) [Entitic vol] 88.1 fL Normal 82.0-98.0 [facility] Comment on above: Performed By: #### L [id number] ####[facility] ([facility])[address] [place] [address] Monocytes (Bld) [#/Vol] 0.44 10*3/uL Normal 0.10-1.00 [facility] Comment on above: Performed By: #### L [id number] ####[facility] ([facility])[address] [place] [address] Monocytes/100 WBC (Bld) 6.7 % Normal 5.0-12.0 [facility] Comment on above: Performed By: #### L [id number] ####[facility] ([facility])[address] [place] [address] Neutrophils (Bld) [#/Vol] 4.43 10*3/uL Normal 1.60-7.60 [facility] Comment on above: Performed By: #### L [id number] ####[facility] ([facility])[address] [place] [address] Neutrophils/100 WBC (Bld) 67.5 % Normal 40.0-72.0 [facility] Comment on above: Performed By: #### L [id number] ####[facility] ([facility])[address] [place] [address] NRBC (PER 100 WBCS) BY AUTOMATED COUNT 0.0 % Normal 0 [facility] Comment on above: Performed By: #### L [id number] ####[facility] ([facility])[address] [place] [address] PLATELETS (10*3/UL) IN BLOOD AUTOMATED COUNT 216 10*3/uL Normal 150-400 [facility] Comment on above: Performed By: #### L [id number] ####[facility] ([facility])[address] [place] [address] RBC (Bld) [#/Vol] 2.68 10*6/uL Low 4.20-5.70 [facility] Comment on above: Performed By: #### L [id number] ####[facility] ([facility])[address] [place] [address] WBC (Bld) [#/Vol] 6.57 10*3/uL Normal 4.00-10.60 [facility] Comment on above: Performed By: #### L [id number] ####[facility] ([facility])[address] [place] [address] COMPREHENSIVE METABOLIC PANE Ankur 03-16-2024 Albumin [Mass/Vol] 2.0 g/dL Low 3.5-5.7 [facility] Comment on above: Performed By: #### L [id number] #### [facility] ([facility]) [address] [place] [address] ALP [Catalytic activity/Vol] 77 U/L Normal 34-104 [facility] Comment on above: Performed By: #### L [id number] #### [facility] ([facility]) [address] [place] [address] ALT [Catalytic activity/Vol] 16 U/L Normal 7-52 [facility] Comment on above: Performed By: #### L [id number] #### [facility] ([facility]) [address] [place] [address] Anion gap [Moles/Vol] 8 mmol/L Normal 7-20 [facility] Comment on above: Performed By: #### L [id number] #### [facility] ([facility]) [address] [place] [address] AST [Catalytic activity/Vol] 30 U/L Normal 13-39 [facility] Comment on above: Performed By: #### L [id number] #### [facility] ([facility]) [address] [place] [address] Bilirubin [Mass/Vol] 0.6 mg/dL Normal 0.3-1.0 [facility] Comment on above: Performed By: #### L [id number] #### [facility] [address] [place] [address] Calcium [Mass/Vol] 7.7 mg/dL Low 8.6-10.3 [facility] Comment on above: Performed By: #### L [id number] #### [facility] [address] [place] [address] Chloride [Moles/Vol] 103 mmol/L Normal 98-107 [facility] Comment on above: Performed By: #### L [id number] #### [facility] ([facility]) [address] [place] [address] CO2 [Moles/Vol] 24 mmol/L Normal 21-31 [facility] Comment on above: Performed By: #### L [id number] #### [facility] ([facility]) [address] [place] [address] Creatinine [Mass/Vol] 0.74 mg/dL Normal 0.70-1.30 [facility] Comment on above: Performed By: #### L [id number] #### [facility] ([facility]) [address] [place] [address] GLOMERULAR FILTRATION RATE ML/MIN/1.73 SQ M.PREDICTED 100.6 mL/min/1.73m*2 Normal >60.0 [facility] Comment on above: Result Comment: The [facility]???s estimated glomerular filtration rate (eGFR) will no longer include consideration of race in its calculation. The National Kidney Foundation???s eGFR Task Force developed new recommendations for the estimation of the glomerular filtration rate in the [place] They recommend immediate implementation of the new equation refit without the race variable in all laboratories because the calculation does not include race. In addition to not including race in the calculation and reporting, it included diversity in its development, and has acceptable performance characteristics and potential consequences that do not disproportionately affect any one group of individuals. Performed By: #### L [id number] #### [facility] ([facility] [address] [place] [address] Glucose [Mass/Vol] 84 mg/dL Normal 70-100 [facility] Comment on above: Performed By: #### L [id number] #### [facility] ([facility]) [address] [place] [address] Potassium [Moles/Vol] 3.2 mmol/L Low 3.5-5.1 [facility] Comment on above: Performed By: #### L [id number] #### [facility] ([facility]) [address] [place] [address] Protein [Mass/Vol] 4.8 g/dL Low 6.0-8.3 [facility] Comment on above: Performed By: #### L [id number] #### [facility] ([facility]) [address] [place] [address] Sodium [Moles/Vol] 132 mmol/L Low 136-145 [facility] Comment on above: Performed By: #### L [id number] #### [facility] ([facility]) [address] [place] [address] Urea nitrogen [Mass/Vol] 6 mg/dL Low 7-25 [facility] Comment on above: Performed By: #### L [id number] #### [facility] ([facility]) [address] [place] [address] UREA NITROGEN/CREATININE (MASS RATIO) IN SER/PLAS 8.1 [facility] Comment on above: Performed By: #### L [id number] #### [facility] ([facility]) [address] [place] [address] HISTOLOGY - TISSUE EXAMon LAB AP ADDENDUM 1 [facility] Comment on above: Order Comment: This order contains result documents that were not sent. The result might be incomplete. Result Comment: 04/26 - This case ([id number] block 1) was sent to [facility] for the [facility] x[facility] tumor panel and PDL1. Findings were as follows: Somatic: Biologically Relevant FBXW7: W244* STAG2: E1005* TP53: R181P ATRX: [id number].[id number]>T RB1: S834* ARID1A: [id number] EGFR: Copy number gain TYMS: Copy number gain Germline: Pathogenic/Likely Pathogenic No potential germline variants were found in the limited set of genes on which we report. Pertinent Negatives KRAS, BRAF, ALK, ROS1, RET, MET, ERBB2 (HER2) Immunotherapy Markers Tumor Mutational [place] (TMB): 21.6 m/MB - this result has an FDA approved therapy (Pembrolizumab) Microsatellite Instability Status (MSI): Stable Tumor Origin Test Results Predicted Diagnosis: Lung squamous cell carcinoma (60% estimated probability) Lower Probability Diagnostic Predictions: Lung adenocarcinoma (26% estimated probability) Cannot Exclude: Carcinosarcoma, Pancreatic adenocarcinoma PD-L1 Expression (Dako PD-L1 22C3) Tumor Proportion Score (TPS): 90% Combined Positive Score (CPS): 90 Comment: See separate [facility] xT, xR, and PDL1 reports for a complete description with interpretive content and potential clinical trials. Addendum electronically signed by Mary Quinn MD on 04/26/2024 at 12:15 PM Performed By: #### L [id number] #### [facility] ([facility]) [address] [place] [address] LAB AP ASR DISCLAIMER The interpretation of this case included the use of immunohistochemistry or special stains. These tests have not been cleared or approved by the U.S. Food and Drug Administration. The FDA has determined that such clearance or approval is not necessary. These tests are used for clinical purposes and should not be regarded as investigational or for research. This laboratory is certified to perform high complexity testing under the Clinical Laboratory Improvement Amendments of 1998. Normal [facility] Comment on above: Order Comment: This order contains result documents that were not sent. The result might be incomplete. Performed By: #### L [id number] #### [facility] ([facility]) [address] [place] [address] LAB AP CASE REPORT Normal [facility] Comment on above: Order Comment: This order contains result documents that were not sent. The result might be incomplete. Result Comment: Surg ical Pathology Case: [id number] Authorizing Provider: Eduardo Cantu MD Collected: 03/16/2024 1441 [facility] Received: 03/16/2024 1541 Pathologist: Mary Quinn MD Specimen: Adrenal Gland Performed By: #### L [id number] #### [facility] ([facility]) [address] [place] [address] LAB AP CLINICAL INFORMATION Order Diagnoses Normal [facility] Comment on above: Order Comment: This order contains result documents that were not sent. The result might be incomplete. Result Comment: I26. 99 - Pulmonary embolism without acute cor pulmonale, unspecified chronicity, unspecified pulmonary embolism type (CMS/HCC) [ICD-10-CM] J18.9 - Pneumonia of left lower lobe due to infectious organism [ICD-10-CM] E27.8 - Adrenal mass (CMS/HCC) [ICD-10-CM] F10.10 - Alcohol abuse [ICD-10-CM] Z72.0 - Tobacco use [ICD-10-CM] C34.92 - Primary adenocarcinoma of left lung (CMS/HCC) [ICD-10-CM] Performed By: #### L [id number] #### [facility] ([facility]) [address] [place] [address] LAB AP CORRECTION HISTORY Addition of immunohistochemical stains. Diagnosis remains unchanged. Normal [facility] Comment on above: Order Comment: This order contains result documents that were not sent. The result might be incomplete. Performed By: #### L [id number] #### [facility] ([facility]) [address] [place] [address] LAB AP DIAGNOSIS COMMENT Normal [facility] Comment on above: Order Comment: This order contains result documents that were not sent. The result might be incomplete. Result Comment: Neop lastic cells stain positively for CK7 (diffuse, strong), GATA3 (focal, weak), p40 (focal, strong), p63 (focal, weak), calretinin (very focal). These cells of interest are negative for inhibin, MART-1, TTF-1, Napsin A and PAX8. Although the focal expression of p63 and GATA3 raises the possibility of a urothelial carcinoma, the strong CK7 expression is also consistent with a carcinoma arising from the upper GI tract, lung or pancreaticobiliary system. Although there is focal calretinin expression, the immunophenotype is not classic for adrenocortical carcinoma. Clinical and radiologic correlation are recommended. Corrected result: Previously reported on 03/30/2024 at 1718 EST. Performed By: #### L [id number] #### [facility] ([facility]) [address] [place] [address] LAB AP GROSS DESCRIPTION Normal [facility] Comment on above: Order Comment: This order contains result documents that were not sent. The result might be incomplete. Result Comment: A. A drenal Gland. Part A is received in formalin labeled Jaret Nicci and adrenal gland. It consists of 7 gonsalves-red, cylindrical cores of soft tissue ranging from 0.8 x 0.1 cm to 2.0 x 0.1 cm. The specimen is submitted in toto as follows: A1-A3: 1 core per cassette A4-A5: 2 cores per cassette Jolanta Young, Pathologists' Assembly Technician student Laura He, Pathologists' Assembly Technician student Performed By: #### L [id number] #### [facility] ([facility]) [address] [place] [address] LAB AP MICROSCOPIC DESCRIPTION Microscopic examination performed. Normal [facility] Comment on above: Order Comment: This order contains result documents that were not sent. The result might be incomplete. Performed By: #### L [id number] #### [facility] ([facility]) [address] [place] [address] LAB AP REPORT FINAL DIAGNOSIS NARRATIVE Normal [facility] Comment on above: Order Comment: This order contains result documents that were not sent. The result might be incomplete. Result Comment: A. A drenal gland, mass, core biopsy: - Poorly differentiated carcinoma. - See comment. Amendment electronically signed by Mary Quinn MD on 04/06/2024 at 10:58 AM Performed By: #### L [id number] #### [facility] ([facility]) [address] [place] [address] OCCULT BLOOD X 1, STOOLon HEMOGLOBIN GASTROINTESTINAL PRESENCE IN STOOL Negative Normal Negative, None Detected [facility] Comment on above: Performed By: #### L [id number] #### [facility] ([employer]) [address] [place] [address] PROTEIN ELECTROPHORESIS, SER UMon 03-16-2024 Protein [Mass/Vol] 4.6 g/dL Low 6.0-8.3 [facility] Comment on above: Performed By: #### L [id number] #### [facility] ([employer] [facility]) [address] [place] [address] PROTEIN FRACTION (INTERPRETATION) IN SER/PLAS BY ELECTROPHORESIS Please see attached report. Normal [facility] Comment on above: Performed By: #### L [id number] #### [facility] ([employer] [facility]) [address] [place] [address] PROTIME-INRon 03-16-2024 INR IN PPP BY COAGULATION ASSAY 1.06 Normal 0.90-1.10 [facility] Comment on above: Result Comment: [facility] P RECOMMENDED INR FOR WARFARIN THERAPY CONDITION INR PROPHYLAXIS OF VENOUS THROMBOSIS 2-3 (HIGH-RISK SURGERY) TREATMENT OF VENOUS THROMBOSIS 2-3 TREATMENT OF PULMONARY EMBOLISM 2-3 PREVENTION OF SYSTEMIC EMBOLISM: 2-3 ACUTE MYOCARDIAL INFARCTION TISSUE HEART VALVES VALVULAR HEART DISEASE ATRIAL FIBRILLATION RECURRENT SYSTEMIC EMBOLISM MECHANICAL HEART VALVE 2.5-3.5 FROM: ORAL ANTICOAGULANTS. MECHANISM OF ACTION, CLINICAL EFFECTIVENESS, AND OPTIMAL THERAPEUTIC RANGE. CHEST 1995;108:231S-246S. Performed By: #### L [id number] #### [facility] ([employer]) [address] [place] [address] PROTHROMBIN TIME (PT) IN PPP BY COAGULATION ASSAY 13.8 Seconds Normal 12.3-14.8 [facility] Comment on above: Performed By: #### L [id number] #### [facility] ([place]) [place] [address] 30on 03-15-2024 30 The patient is Moderately Stable - Low risk of patient condition declining or worsening The patient's goals for the shift include rest and comfort The clinical goals for the shift include safety/VSS Problem: Pain - Adult Goal: Verbalizes/displays adequate comfort level or baseline comfort level Outcome: Progressing Problem: Safety - Adult Goal: Free from fall injury Outcome: Progressing Flowsheets (Taken 03/15/20242004) Free from fall injury: Assess patient frequently for physical needs Problem: Discharge Planning Goal: Discharge to home or other facility with appropriate resources Outcome: Progressing Flowsheets (Taken 03/15/20242004) Discharge to home or other facility with appropriate resources: Identify barriers to discharge with patient and caregiver Problem: Chronic Conditions and Co-morbidities Goal: Patient's chronic conditions and co-morbidity symptoms are monitored and maintained or improved Outcome: Progressing Flowsheets (Taken 03/15/20242004) Care Plan - Patient's Chronic Conditions and Co-Morbidity Symptoms are Monitored and Maintained or Improved: Monitor and assess patient's chronic conditions and comorbid symptoms for stability, deterioration, or improvement Normal [facility] 30 The patient is Moderately Stable - Low risk of patient condition declining or worsening The patient's goals for the shift include Comfort and rest The clinical goals for the shift include VSS and comfort Problem: Pain - Adult Goal: Verbalizes/displays adequate comfort level or baseline comfort level Outcome: Progressing Problem: Safety - Adult Goal: Free from fall injury Outcome: Progressing Flowsheets (Taken 03/14/20241999) Free from fall injury: Assess patient frequently for physical needs Problem: Discharge Planning Goal: Discharge to home or other facility with appropriate resources Outcome: Progressing Flowsheets (Taken 03/14/20241999) Discharge to home or other facility with appropriate resources: Identify barriers to discharge with patient and caregiver Problem: Chronic Conditions and Co-morbidities Goal: Patient's chronic conditions and co-morbidity symptoms are monitored and maintained or improved Outcome: Progressing Flowsheets (Taken 03/14/20241999) Care Plan - Patient's Chronic Conditions and Co-Morbidity Symptoms are Monitored and Maintained or Improved: Monitor and assess patient's chronic conditions and comorbid symptoms for stability, deterioration, or improvement Normal [facility] ANTI-XA (HEPARIN LEVEL)on HEPARIN UNFRACTIONATED (U/ML) IN PPP BY CHROMOGENIC METHOD 0.35 IU/mL Normal 0.3-0.7 [facility] Comment on above: Order Comment: Check anti-Xa level every 6 hours while on heparin infusion, or per protocol. Result Comment: Liza roxaban and Apixaban will interfere with the anti Xa assay used to monitor UFH and LMWH. Performed By: #### L [id number] ####[facility] ([facility])[address] [place] [address] HEPARIN UNFRACTIONATED (U/ML) IN PPP BY CHROMOGENIC METHOD 0.38 IU/mL Normal 0.3-0.7 [facility] Comment on above: Order Comment: Check anti-Xa level every 6 hours while on heparin infusion, or per protocol. Result Comment: Dorothy roxaban and Apixaban will interfere with the anti Xa assay used to monitor UFH and LMWH. Performed By: #### L [id number] #### [facility] ([facility]) [address] [place] [address] HEPARIN UNFRACTIONATED (U/ML) IN PPP BY CHROMOGENIC METHOD 0.36 IU/mL Normal 0.3-0.7 [facility] Comment on above: Order Comment: Check anti-Xa level every 6 hours while on heparin infusion, or per protocol. Result Comment: Liza roxaban and Apixaban will interfere with the anti Xa assay used to monitor UFH and LMWH. Performed By: #### L [id number] #### [facility] ([facility] [address] [place] [address] BETA-2 GLYCOPROTEIN ANTIBODY IGG AND IGMon 03-15-2024 BETA 2 GLYCOPROTEIN 1 IGG AB (SGU) IN SERUM 1.0 SGU Normal <=19.9 [facility] Comment on above: Performed By: #### L [id number] #### [facility] ([facility]) [address] [place] [address] BETA 2 GLYCOPROTEIN 1 IGM ANTIBODY (SMU) IN SERUM 69.1 SMU High <=19.9 [facility] Comment on above: Performed By: #### L [id number] #### [facility] ([facility]) [address] [place] [address] CARDIOLIPIN ANTIBODY, IGG AN D IGMon 03-15-2024 ANTICARDIOLIPIN IGG ANTIBODY 2.1 GPL Normal <=22.9 [facility] Comment on above: Performed By: #### L [id number] #### [facility] ([facility]) [address] [place] [address] ANTICARDIOLIPIN IGM ANTIBODY 17.4 MPL High <10.9 [facility] Comment on above: Performed By: #### L [id number] #### [facility] ([facility]) [address] [place] [address] CBC WITH AUTO DIFFERENTIALon 03-15-2024 Basophils (Bld) [#/Vol] 0.05 10*3/uL Normal 0.00-0.20 [facility] Comment on above: Performed By: #### L [id number] ####[facility] ([facility])[address] [place] [address] Basophils/100 WBC (Bld) 0.8 % Normal 0.0-1.0 [facility] Comment on above: Performed By: #### L [id number] ####[facility] ([facility])[address] [place] [address] Eosinophils (Bld) [#/Vol] 0.04 10*3/uL Normal 0.00-0.50 [facility] Comment on above: Performed By: #### L [id number] ####[facility] ([facility] [place] [address] Eosinophils/100 WBC (Bld) 0.6 % Normal 0.0-6.0 [facility] Comment on above: Performed By: #### L [id number] ####[facility] ([facility] [place] [address] Erythrocyte distribution width (RBC) [Ratio] 19.0 % High 11.5-15.0 [facility] Comment on above: Performed By: #### L [id number] ####[facility] ([facility])[address] [place] [address] ERYTHROCYTE MEAN CORPUSCULAR HEMOGLOBIN CONCENTRATION (G/DL) BY AUTOMATED 31.4 g/dL Low 32.0-35.0 [facility] Comment on above: Performed By: #### L [id number] ####[facility] ([facility])[address] [place] [address] Hematocrit (Bld) [Volume fraction] 25.5 % Low 39.0-55.0 [facility] Comment on above: Performed By: #### L [id number] ####[facility] ([facility])[address] [place] [address] Hemoglobin (Bld) [Mass/Vol] 8.0 g/dL Low 13.0-17.0 [facility] Comment on above: Performed By: #### L [id number] ####[facility] ([facility])[address] [place] [address] Immature granulocytes (Bld) [#/Vol] 0.02 10*3/uL Normal 0.00-0.20 [facility] Comment on above: Performed By: #### L [id number] ####[facility] ([facility])[address] [place] [address] Immature granulocytes/100 WBC (Bld) 0.3 % Normal 0.0-1.0 [facility] Comment on above: Performed By: #### L [id number] ####[facility] ([facility])[address] [place], [place] [address] Lymphocytes (Bld) [#/Vol] 1.12 10*3/uL Low 1.20-4.00 [facility] Comment on above: Performed By: #### L [id number] ####[facility] ([facility])[address] [place] [address] Lymphocytes/100 WBC (Bld) 17.0 % Low 20.0-45.0 [facility] Comment on above: Performed By: #### L [id number] ####[facility] ([facility])[address] [place] [address] MCH (RBC) [Entitic mass] 28.8 pg Normal 27.0-33.0 [facility] Comment on above: Performed By: #### L [id number] ####[facility] ([facility])[address] [place] [address] MCV (RBC) [Entitic vol] 91.7 fL Normal 82.0-98.0 [facility] Comment on above: Performed By: #### L [id number] ####[facility] ([facility])[address] [place] [address] Monocytes (Bld) [#/Vol] 0.32 10*3/uL Normal 0.10-1.00 [facility] Comment on above: Performed By: #### L [id number] ####[facility] ([facility])[address] [place] [address] Monocytes/100 WBC (Bld) 4.9 % Low 5.0-12.0 [facility] Comment on above: Performed By: #### L [id number] ####[facility] ([facility])[address] [place] [address] Neutrophils (Bld) [#/Vol] 5.03 10*3/uL Normal 1.60-7.60 [facility] Comment on above: Performed By: #### L [id number] ####[facility] ([facility])[address] [place] [address] Neutrophils/100 WBC (Bld) 76.4 % High 40.0-72.0 [facility] Comment on above: Performed By: #### L [id number] ####[facility] ([facility])[address] [place] [address] NRBC (PER 100 WBCS) BY AUTOMATED COUNT 0.0 % Normal 0 [facility] Comment on above: Performed By: #### L [id number] ####[facility] ([facility])[address] [place] [address] PLATELETS (10*3/UL) IN BLOOD AUTOMATED COUNT 212 10*3/uL Normal 150-400 [facility] Comment on above: Performed By: #### L [id number] ####[facility] ([facility])[address] [place] [address] RBC (Bld) [#/Vol] 2.78 10*6/uL Low 4.20-5.70 [facility] Comment on above: Performed By: #### L [id number] ####[facility] ([facility])[address] [place] [address] WBC (Bld) [#/Vol] 6.58 10*3/uL Normal 4.00-10.60 [facility] Comment on above: Performed By: #### L [id number] ####[facility] ([facility])[address] [place] [address] COMPREHENSIVE METABOLIC PANE Ankur 03-15-2024 Albumin [Mass/Vol] 2.1 g/dL Low 3.5-5.7 [facility] Comment on above: Performed By: #### L [id number] #### [facility] ([facility]) [address] [place] [address] ALP [Catalytic activity/Vol] 78 U/L Normal 34-104 [facility] Comment on above: Performed By: #### L [id number] #### [facility] ([facility]) [address] [place] [address] ALT [Catalytic activity/Vol] 17 U/L Normal 7-52 [facility] Comment on above: Performed By: #### L [id number] #### [facility] ([facility]) [address] [place] [address] Anion gap [Moles/Vol] 9 mmol/L Normal 7-20 [facility] Comment on above: Performed By: #### L [id number] #### [facility] ([facility]) [address] [place] [address] AST [Catalytic activity/Vol] 36 U/L Normal 13-39 [facility] Comment on above: Performed By: #### L [id number] #### [facility] ([facility]) [address] [place] [address] Bilirubin [Mass/Vol] 0.7 mg/dL Normal 0.3-1.0 [facility] Comment on above: Performed By: #### L [id number] #### [facility] ([facility]) [address] [place] [address] Calcium [Mass/Vol] 7.7 mg/dL Low 8.6-10.3 [facility] Comment on above: Performed By: #### L [id number] #### [facility] ([facility]) [address] [place] [address] Chloride [Moles/Vol] 105 mmol/L Normal 98-107 [facility] Comment on above: Performed By: #### L [id number] #### [facility] ([facility]) [address] [place] [address] CO2 [Moles/Vol] 21 mmol/L Normal 21-31 [facility] Comment on above: Performed By: #### L [id number] #### [facility] ([facility]) [address] [place] [address] Creatinine [Mass/Vol] 0.71 mg/dL Normal 0.70-1.30 [facility] Comment on above: Performed By: #### L [id number] #### [facility] ([facility]) [address] [place] [address] GLOMERULAR FILTRATION RATE ML/MIN/1.73 SQ M.PREDICTED 101.8 mL/min/1.73m*2 Normal >60.0 [facility] Comment on above: Result Comment: The [facility]???s estimated glomerular filtration rate (eGFR) will no longer include consideration of race in its calculation. The National Kid[employer] Foundation???s eGFR Task Force developed new recommendations for the estimation of the glomerular filtration rate in the [place] They recommend immediate implementation of the new equation refit without the race variable in all laboratories because the calculation does not include race. In addition to not including race in the calculation and reporting, it included diversity in its development, and has acceptable performance characteristics and potential consequences that do not disproportionately affect any one group of individuals. Performed By: #### L [id number] #### [facility] ([facility]) [address] [place] [address] Glucose [Mass/Vol] 92 mg/dL Normal 70-100 [facility] Comment on above: Performed By: #### L [id number] #### [facility] ([facility]) [address] [place] [address] Potassium [Moles/Vol] 3.6 mmol/L Normal 3.5-5.1 [facility] Comment on above: Performed By: #### L [id number] #### [facility] ([facility]) [address] [place] [address] Protein [Mass/Vol] 5.1 g/dL Low 6.0-8.3 [facility] Comment on above: Performed By: #### L [id number] #### [facility] ([facility]) [address] [place] [address] Sodium [Moles/Vol] 131 mmol/L Low 136-145 [facility] Comment on above: Performed By: #### L [id number] #### [facility] ([facility]) [address] [place] [address] Urea nitrogen [Mass/Vol] 5 mg/dL Low 7-25 [facility] Comment on above: Performed By: #### L [id number] #### [facility] ([facility]) [address] [place] [address] UREA NITROGEN/CREATININE (MASS RATIO) IN SER/PLAS 7.0 Normal [facility] Comment on above: Performed By: #### L [id number] #### [facility]) [address] [place] [address] CONSULTon 03-15-2024 CONSULT ---- -------- Attestation signed by Ryland Noble MD at 03/15/2024 4:22 PM By using the attestations below, the signing clinician agrees that I have read and verify that the documentation has been personally reviewed by me and ensure that the documentation accurately reflects the encounter. GC: I personally saw this patient on the day of the encounter, performed the rosado portion(s) of the service and participated in the management and confirm the resident's documentation. Please note there may be an additional personal documentation from me. Additional Comments: Patient admitted with chest/back pain found to have an acute PE, pneumonia and an adrenal mass in the setting of Hx of Lung ca. GI consulted for anemia thought to be anemia of chronic disease by oncology. Given acute issues and lack of overt bleeding will hold off endoscopic evaluation unless requested by oncology team or can be considered outpatient pending clinical course. -------- Initial Gastroenterology/Hepatol ogy Consultation Note IDENTIFYING DATA PATIENT: Jaret Grajeda ADMIT DATE: 03/13/2024 TIME OF EVALUATION: 03/15/2024 3:29 PM Reason for Consult: gib r/o Admitting Physician: Eduardo Cantu MD HISTORY OF PRESENT ILLNESS Jaret Grajeda is a 63 y.o. male with a significant medical history of anemia, congestive heart failure (CHF), hyperlipidemia, hypertension, heavy tobacco and alcohol use, and left upper lobe lung cancer status post radiation (SBRT in 02/2023), who was transferred from [facility] to [facility] for a higher level of care. Gastroenterology team was consulted for concern of acute on chronic anemia without obvious source of gastrointestinal bleeding source. Patient denying hematemesis, coffee-ground emesis, hematochezia, melena or any obvious source of gastrointestinal bleeding at the time of evaluation. He initially presented with weakness and hypothermia and was found in a parking lot after a fall. Workup revealed left lower lobe pneumonia, left-sided pulmonary embolism, and a newly identified 6.1 cm heterogeneously enhancing, centrally necrotic left adrenal mass highly suspicious for malignancy. He was started on heparin drip, vancomycin, and Zosyn. His WBC count decreased from 11.9 to 9.0, and an echocardiogram showed normal ejection fraction. The patient is a poor historian, denying significant symptoms but reporting a 10 lb weight loss over the past few months, poor appetite, productive cough without hemoptysis, and lower back pain. He denies acute dyspnea, nausea, vomiting, dizziness, or abdominal pain. His hemoglobin was critically low at 6.3 g/dL, requiring transfusion, and labs showed hypoalbuminemia (2.2 g/dL) and mild transaminitis. Imaging revealed small bilateral pleural effusions, left lower lobe ground-glass opacities concerning for infection, and mild ascites. GI HISTORY SUMMARY TABLE Last EGD Last colonoscopy Primary GI physician PAST MEDICAL, SURGICAL, FAMILY, and SOCIAL HISTORY Past Medical History: Past Medical History: Diagnosis Date Anemia, unspecified Cancer of upper lobe of left lung (CMS/HCC) History of transfusion 07/2022 Hypertension Past Surgical History: Past Surgical History: Procedure Laterality Date APPENDECTOMY LUNG BIOPSY 08/03/2022 TONSILLECTOMY Family History: Family History Family history unknown: Yes Social History: Social History Tobacco Use Smoking status: Every Day Current packs/day: 1.00 Average packs/day: 1 pack/day for 40.0 years (40.0 ttl pk-yrs) Types: Cigarettes Substance Use Topics Alcohol use: Yes Alcohol/week: 42.0 standard drinks of alcohol Types: 42 Cans of beer per week Drug use: Not Currently Allergies: No Known Allergies MEDICATIONS Home Medications: Prior to Admission medications Medication Sig Start Date End Date Taking? Authorizing Provider calcium carbonate 600 mg calcium (1,500 mg) tablet Take 600 mg by mouth before breakfast, before lunch, and before evening meal. Yes Historical Provider, ibuprofen 200 mg tablet Take 200 mg by mouth every 8 (eight) hours if needed for mild pain (1-3 pain score). Yes Historical Provider, MD Medrano M10 10 mEq ER tablet Take 10 mEq by mouth three times daily. Yes Historical Provider, magnesium oxide (Mag-Ox) 400 mg (241.3 mg magnesium) tablet Take 400 mg by mouth three times daily. Yes Historical Provider, metoprolol succinate XL (Toprol-XL) 50 mg 24 hr tablet Take 50 mg by mouth in the morning. 05/27/22 Yes Historical Provider, omeprazole (PriLOSEC) [address] capsule Take 20 mg by mouth before breakfast. Yes Historical Provider, spironolactone (Aldactone) 25 mg tablet Take 25 mg by mouth in the morning. Yes Historical Provider, apixaban (Eliquis) 5 mg tablet Take 1 tablet ( (more content not included)... [facility] CONSULT ---- -------- Attestation signed by Megan Trevizo MD at 03/15/2024 5:15 PM By using the attestations below, the signing clinician agrees that I have read and verify that the documentation has been personally reviewed by me and ensure that the documentation accurately reflects the encounter. As noted by Dr Rousseau : I personally saw this patient on the day of the encounter, performed the rosado portion(s) of the service and participated in the management and confirm the resident's documentation. Please note there may be an additional personal documentation from me. Additional Comments: Discussed radiology and tissue diagnosis.that would be needed for Dr Garber Hypercoagulable work up, staging studies On anticoagulation for the PE Questions answered Megan Trevizo MD -------- Inpatient Hematology Oncology Fellow availability Tuesday - 830am-500pm, Tuesday 830am-430pm and Tuesday 830am-1200pm During these hours, Please contact Hematology Oncology Fellow through [email or web address] Chat first For Hematology Oncology needs on weekends and after hours, please page the on-call fellow through the hospital flange machine operator. NEW INPATIENT HEMATOLOGY / ONCOLOGY CONSULT NOTE Patient ID: Jaret Grajeda, 63 y.o. male Requested by: Olivia Mayer DO PCP: Wade Jones MD : [id number] REASON FOR CONSULTATION: New L adrenal met CHIEF COMPLAINT: No chief complaint on file. HISTORY OF PRESENT ILLNESS: Jaret Grajeda is an 63 y.o. male w past medical history of anemia, CHF, hyperlipidemia, hypertension, tobacco use, alcohol use and left upper lobe lung cancer, heavy smoker ( 47 pack yr) s/p SBRT in 02/2023 presented to [facility] after he was found in parking lot hypothermic, and weak. He was found to be suffering from LLL pneumonia, L L PE and new L adrenal met (6.3 cm) at [facility] and was transferred here for further eval of met. Currently on heparin drip, vancomycin and Zosyn. his initial WBCs were 11.9 but decreased to 9.0. Echo shows normal EF. Patient is somewhat poor historian. He denies any symptoms and he states that he does not know what is going on with him. Pt reports weight loss 10 lbs in last few months. Appetite is poor. He also reports productive cough w/o hemoptysis. Denies dyspnea more then baseline. Reports lower back pain. Denies headache, dizziness, nausea and vomiting. Oncologic History 07/2022 Initial Dx based on CT scan Metastatic work up negative ( EBUS, CT scan) 02/2023: SBRT 07/2023: 07/2023 CT scan shows decrease in TRISTEN mass but persistent. Lost followup CT chest 03/14/24: Unavailable, done at outside hospital CT chest 12/2022 Left upper lobe mass which has slightly increased in size when compared to prior study. 2. Additional spiculated right upper lobe nodule which has also slightly increased in size. 3. No evidence of bulky intrathoracic adenopathy. 4. Incompletely characterized 1.1 cm peripherally enhancing lesion in the inferior right hepatic lobe. CT chest 07/2023: Shows decrease in the size of TRISTEN mass to 2.5 cm No adrenal met Anuerysm of descending aorta at [address] abd w contrast : 03/14/2024 Small bilateral pleural effusions. Adjacent compressive atelectasis in the right lower lobe. Groundglass opacities in the left lower lobe. Coronary artery calcifications. 1.1 cm higher attenuation lesion in the inferior right hepatic lobe, incompletely characterized on this study. No additional liver lesions. Gallbladder is contracted. The right adrenal gland, spleen, pancreas, and right kidney are unremarkable. Small left renal stone. Heterogeneously enhancing, centrally necrotic left adrenal mass measuring 6.1 x 4.2 cm, new since previous study. Atherosclerotic disease in the abdominal aorta and iliac vessels. No enlarged abdominal or pelvic lymph nodes. Foci of air in the urinary bladder, which is decompressed. Small amount of ascitic fluid in the pelvis. The small and large bowel are of normal caliber with no evidence of bowel wall thickening. No free intraperitoneal air. Visualized body wall structures are unremarkable. Moderate to severe compression deformity of the L1 vertebral body, which appears chronic. PAST HEMATOLOGY / ONCOLOGY HISTORY: REVIEW OF SYSTEMS: Complete 10-point ROS is negative except as mentioned in HPI. MEDICAL HISTORY: Past Medical History: Diagnosis Date Anemia, unspecified Cancer of upper lobe of left lung (CMS/HCC) History of transfusion 07/2022 Hypertension SURGICAL HISTORY: Past Surgical History: Procedure Laterality Date APPENDECTOMY LUNG BIOPSY 08/03/2022 TONSILLECTOMY FAMILY HISTORY: Family History Family history unknown: Yes SOCIAL HISTORY: Social History Socioeconomic History Marital status: Single Spouse name: Not on file Number of (more content not included)... Normal [facility] CORTISOLon 03-15-2024 CORTISOL (UG/DL) IN SER/PLAS 6.3 ug/dL Normal - [facility] Comment on above: Order Comment: PILAR Butler OBTAIN AT 8AM ONLY Performed By: #### L [id number] #### [facility] ([facility]) [address] [place] [address] CT GUIDED PERCUTANEOUS BIOPS Y ADRENAL GLANDSon 03-15-2024 CT GUIDED PERCUTANEOUS BIOPSY ADRENAL GLANDS CLINICAL INDICATION: Left adrenal gland mass. COMPARISON: CT scan 03/14/2024 TECHNIQUE: Procedure performed by Interventional Radiologist Vipul Alberts M.D. CONSENT: The reason for the procedure was discussed with the patient. The procedure, expectations, risks, benefits, options and alternatives were discussed. All of the patient s questions were answered. The patient understands that the results cannot be guaranteed. The procedure is indicated and the risks are acceptable. Consent was obtained. SEDATION: The patient s cardiopulmonary status was evaluated and the patient is suitable for moderate sedation. During the course of the procedure, the patient was sedated with Fentanyl 50 mcg intravenously and Versed 1 mg intravenously, while being monitored with ECG, blood pressure monitoring, and pulse oximeter by appropriately trained personnel, for a total sedation time of 30 minutes. Following the procedure, the patient was recovered according to the moderate sedation policy. All CT scans at this facility use dose modulation, iterative reconstruction, and/or weight based dosing when appropriate to reduce radiation dose to as low as reasonably achievable. PROCEDURE: CT-guided core biopsy left adrenal gland mass. Details of procedure: Patient placed in the prone position on the CT table. A CT scan of the abdomen was performed. An appropriate skin entry site was marked over the left adrenal gland mass. The skin was prepped and draped in usual sterile fashion. 1% lidocaine without epinephrine was used as a local anesthetic. At that time, under CT guidance, a 17-gauge coaxial needle was advanced into the left adrenal gland mass. Once CT confirm needle position, the stylet was removed and a total of 6 18-gauge core biopsy samples were obtained and placed in formalin. Gelfoam was then used to hemostasis and the needle was removed. A sterile dress was applied. A final CT scan was performed. The patient tolerated the procedure well and there were no immediate complications. FINDINGS: 1. Redemonstration of large left adrenal gland mass measuring up to [address]-guided percutaneous needle access into the left adrenal gland mass. A total of 6 18-gauge core biopsy samples were obtained and placed in formalin. 3. CT scan postbiopsy demonstrates no evidence of immediate complication. There is expected small volume of air surrounding the left adrenal gland from recent biopsy. IMPRESSION: Successful CT-guided core biopsy left adrenal gland mass. Electronically signed: Vipul Alberts MD. Not Deenadtd Invalid Interpretation Code [facility] FACTOR 5 LEIDENon 03-15-2024 FACTOR V LEIDEN Negative Normal [facility] Comment on above: Result Comment: Indication for testing: Assess genetic risk for thrombosis. NEGATIVE: The factor V Leiden variant, c.[id number]; p.[id number], was not detected. This does not exclude a genetic cause for thrombophilia. If this individual has had a previous venous thromboembolism, this negative result is unlikely to significantly reduce the risk for recurrence; thus, future clinical management to reduce recurrence should not be altered. This result has been reviewed and approved by Luz Foote M.D., Ph.D. BACKGROUND INFORMATION: Factor V Leiden (F5) R506Q Mutation CHARACTERISTICS: Venous thromboembolism (VTE) is multifactorial caused by a combination of genetic and environmental factors. The Factor V Leiden (FVL) variant is the most common cause of inherited VTEs, accounting for over 90 percent of activated protein C (APC) resistance. Because the FVL variant eliminates the APC cleavage site, factor V is inactivated slower, thus persisting longer in blood circulation, leading to more thrombin production. Other genetic risk factors for VTE include, male sex and variants in antithrombin, protein C, protein S, or factor XIII. Non-genetic risk factors include, age, smoking, prolonged immobilization, malignant neoplasms, surgery, , oral contraceptives, estrogen replacement therapy, tamoxifen and raloxifene therapy. INCIDENCE OF FACTOR V LEIDEN VARIANT: Approximately 5 percent of Caucasians, 2 percent of Hispanics, 1 percent of Americans and 0.5 percent of Asians are heterozygous; homozygosity occurs in 1 in 1500 Caucasians. INHERITANCE: Semi-dominant; both heterozygotes and homozygotes are at increased risk for VTE. PENETRANCE: Lifetime risk of VTE is 10 percent for heterozygotes and 80 percent of homozygotes. CAUSE: The pathogenic gain of function in the F5 gene variant c.1601G>A (p.[id number]). Legacy nomenclature: [id number] (1691G>A) CLINICAL SENSITIVITY: 20-50 percent of individuals with an isolated VTE have the FVL variant. METHODOLOGY: Polymerase chain reaction and fluorescence monitoring. ANALYTICAL SENSITIVITY AND SPECIFICITY: 99 percent. LIMITATIONS: Diagnostic errors can occur due to rare sequence variations. F5 gene mutations, other than p.Sdy070Gdy, will not be detected. This test was developed and its performance characteristics determined by [facility]. It has not been cleared or approved by the US Food and Drug Administration. This test was performed in a CLIA certified laboratory and is intended for clinical purposes. Counseling and informed consent are recommended for genetic testing. Consent forms are available online. Performed By: [facility] [address] [place] [id number] [employer] Operator: Byron Freeman MD, PhD CLIA Number: [id number] Performed By: #### L [id number] #### [facility] ([facility]) [address] [place] [address] FACTOR V SPECIMEN Whole Blood Normal [facility] Comment on above: Performed By: #### L [id number] #### [facility] ([facility]) [address] [place] [address] HPon 03-15-2024 HP ---- -------- Attestation signed by Ryland Noble MD at 03/15/2024 4:22 PM By using the attestations below, the signing clinician agrees that I have read and verify that the documentation has been personally reviewed by me and ensure that the documentation accurately reflects the encounter. GC: I personally saw this patient on the day of the encounter, performed the rosado portion(s) of the service and participated in the management and confirm the resident's documentation. Please note there may be an additional personal documentation from me. Additional Comments: Patient admitted with chest/back pain found to have an acute PE, pneumonia and an adrenal mass in the setting of Hx of Lung ca. GI consulted for anemia thought to be anemia of chronic disease by oncology. Given acute issues and lack of overt bleeding will hold off endoscopic evaluation unless requested by oncology team or can be considered outpatient pending clinical course. -------- Initial Gastroenterology/Hepatol ogy Consultation Note IDENTIFYING DATA PATIENT: Jaret Grajeda ADMIT DATE: 03/13/2024 TIME OF EVALUATION: 03/15/2024 3:29 PM Reason for Consult: gib r/o Admitting Physician: Eduardo Cantu MD HISTORY OF PRESENT ILLNESS Jaret Grajeda is a 63 y.o. male with a significant medical history of anemia, congestive heart failure (CHF), hyperlipidemia, hypertension, heavy tobacco and alcohol use, and left upper lobe lung cancer status post radiation (SBRT in 02/2023), who was transferred from [facility] to [facility] for a higher level of care. Gastroenterology team was consulted for concern of acute on chronic anemia without obvious source of gastrointestinal bleeding source. Patient denying hematemesis, coffee-ground emesis, hematochezia, melena or any obvious source of gastrointestinal bleeding at the time of evaluation. He initially presented with weakness and hypothermia and was found in a parking lot after a fall. Workup revealed left lower lobe pneumonia, left-sided pulmonary embolism, and a newly identified 6.1 cm heterogeneously enhancing, centrally necrotic left adrenal mass highly suspicious for malignancy. He was started on heparin drip, vancomycin, and Zosyn. His WBC count decreased from 11.9 to 9.0, and an echocardiogram showed normal ejection fraction. The patient is a poor historian, denying significant symptoms but reporting a 10 lb weight loss over the past few months, poor appetite, productive cough without hemoptysis, and lower back pain. He denies acute dyspnea, nausea, vomiting, dizziness, or abdominal pain. His hemoglobin was critically low at 6.3 g/dL, requiring transfusion, and labs showed hypoalbuminemia (2.2 g/dL) and mild transaminitis. Imaging revealed small bilateral pleural effusions, left lower lobe ground-glass opacities concerning for infection, and mild ascites. GI HISTORY SUMMARY TABLE Last EGD Last colonoscopy Primary GI physician PAST MEDICAL, SURGICAL, FAMILY, and SOCIAL HISTORY Past Medical History: Past Medical History: Diagnosis Date Anemia, unspecified Cancer of upper lobe of left lung (CMS/HCC) History of transfusion 07/2022 Hypertension Past Surgical History: Past Surgical History: Procedure Laterality Date APPENDECTOMY LUNG BIOPSY 08/03/2022 TONSILLECTOMY Family History: Family History Family history unknown: Yes Social History: Social History Tobacco Use Smoking status: Every Day Current packs/day: 1.00 Average packs/day: 1 pack/day for 40.0 years (40.0 ttl pk-yrs) Types: Cigarettes Substance Use Topics Alcohol use: Yes Alcohol/week: 42.0 standard drinks of alcohol Types: 42 Cans of beer per week Drug use: Not Currently Allergies: No Known Allergies MEDICATIONS Home Medications: Prior to Admission medications Medication Sig Start Date End Date Taking? Authorizing Provider calcium carbonate 600 mg calcium (1,500 mg) tablet Take 600 mg by mouth before breakfast, before lunch, and before evening meal. Yes Historical Provider, ibuprofen 200 mg tablet Take 200 mg by mouth every 8 (eight) hours if needed for mild pain (1-3 pain score). Yes Historical Provider, MD Pimentel-Anibal M10 10 mEq ER tablet Take 10 mEq by mouth three times daily. Yes Historical Provider, magnesium oxide (Mag-Ox) 400 mg (241.3 mg magnesium) tablet Take 400 mg by mouth three times daily. Yes Historical Provider, metoprolol succinate XL (Toprol-XL) 50 mg 24 hr tablet Take 50 mg by mouth in the morning. 05/27/22 Yes Historical Provider, omeprazole (PriLOSEC) [address] capsule Take 20 mg by mouth before breakfast. Yes Historical Provider, spironolactone (Aldactone) 25 mg tablet Take 25 mg by mouth in the morning. Yes Historical Provider, apixaban (Eliquis) 5 mg tablet Take 1 tablet ( (more content not included)... Normal [facility] LACTATE DEHYDROGENASEon 02-0 LACTATE DEHYDROGENASE (U/L) IN SER/PLAS BY LAC->PYR RXN 205 U/L Normal 140-271 [facility] Comment on above: Performed By: #### L [id number] #### [facility] ([facility]) [address] [place] [address] METANEPHRINES, URINEon 03-15 Collection duration (U) 24 h [facility] Comment on above: Result Comment: Per 24h calculations are provided to aid interpretation for collections with a duration of 24 hours and an average daily urine volume. For specimens with notable deviations in collection time or volume, ratios of analytes to a corresponding urine creatinine concentration may assist in result interpretation. Performed By: #### L [id number] ####[facility] [place] [address] CREATININE, URINE - PER 24H 680 mg/d Low 800-2100 [facility] Comment on above: Result Comment: Perf ormed By: [facility] [address] [place] [address] [employer] Operator: Byron Freeman MD, PhD CLIA Number: [id number] Performed By: #### L [id number] ####[facility] ([facility])[address] [place] [address] CREATININE, URINE - PER VOLUME 66 mg/dL Normal [facility] Comment on above: Performed By: #### L [id number] ####[facility] [place] [address] METANEPHRINE, URINE 158 ug/L Normal [facility] Comment on above: Performed By: #### L [id number] ####[facility] [place] [address] METANEPHRINE, URINE - PER 24H 163 ug/d Normal 55-320 [facility] Comment on above: Performed By: #### L [id number] ####[facility] [place] [address] METANEPHRINE, URINE - RATIO TO INNOVATION MANAGER 239 ug/g INNOVATION MANAGER Normal 0-300 [facility] Comment on above: Performed By: #### L [id number] ####[facility] ([facility])[address] [place] [address] METANEPHRINES, URINE INTERPRETATION See Note Normal [facility] Comment on above: Result Comment: TEST INFORMATION: Metanephrines Fractionated, Urine Smaller increases in metanephrine and/or normetanephrine concentrations (less than two times the upper reference limit) usually are the result of physiological stimuli, drugs, or improper specimen collection. Essential hypertension is often associated with slight elevations (metanephrine less than 400 ug/d and normetanephrine less than 900 ug/d). Elevated concentrations may be due to intense physical activity, life-threatening illness, and drug interferences. Significant elevation of one or both metanephrines (three or more times the upper reference limit) is associated with an increased probability of a neuroendocrine tumor. Access complete set of age- and/or gender-specific reference intervals for this test in the [facility] Test Directory ([employer]). This test was developed and its performance characteristics determined by [facility]. It has not been cleared or approved by the US Food and Drug Administration. This test was performed in a CLIA certified laboratory and is intended for clinical purposes. Performed By: #### L [id number] ####[facility] [place] [address] NORMETANEPHRINE 24 HOUR URINE 272 ug/d Normal 114-865 [facility] Comment on above: Performed By: #### L [id number] ####[facility] ([facility])[address] [place] [address] NORMETANEPHRINE, URINE - PER VOLUME 264 ug/L Normal [facility] Comment on above: Performed By: #### L [id number] ####[facility] [place] [address] NORMETANEPHRINE, URINE - RATIO TO INNOVATION MANAGER 400 ug/g INNOVATION MANAGER Normal 0-400 [facility] Comment on above: Performed By: #### L [id number] ####[facility] ([facility])[address] [place] [address] Specimen volume (U) 1031 mL Normal [facility] Comment on above: Performed By: #### L [id number] ####[facility] [place] [address] MR BRAIN W AND WO CONTRASTon 03-15-2024 MR BRAIN W AND WO CONTRAST MRI BRAIN WITHOUT AND WITH CONTRAST HISTORY: Lung cancer, brain metastases COMPARISON: 04/09/2024 TECHNIQUE: Routine multiplanar multisequence MR imaging of the brain was performed prior to and following the uneventful administration of contrast. FINDINGS: No restricted diffusion. No evidence of old hemorrhage or abnormal mineralization. Diffuse brain volume loss with prominent cerebral sulci and ventricles. Confluent periventricular and patchy deep cerebral white matter signal abnormalities on T2/FLAIR images. Intraorbital structures are unremarkable. Mucosal thickening in the right ethmoid air cells. Midline structures are unremarkable. No pathologic intracranial contrast enhancement. IMPRESSION: * No acute intracranial abnormalities. Specifically, no evidence of intracranial metastatic disease. Electronically signed: Nacho Tolbert MD. Not Vldtd Invalid Interpretation Code [facility] PROTHROMBIN GENE MUTATIONon 03-15-2024 PROTHROMBIN (F2) [id number] VARIANT Negative Normal [facility] Comment on above: Result Comment: Indication for testing: Assess genetic risk for thrombosis. NEGATIVE: The Factor II, prothrombin [id number] mutation, was not detected. Other causes of elevated prothrombin levels and hereditary forms of venous thrombosis have not been excluded. Recommendations: If clinically indicated, testing for other inherited or acquired thrombophilic disorders is recommended including DNA testing for the factor V Leiden mutation, measurement of total plasma homocysteine concentration, serological assays for anticardiolipin antibodies, multiple phospholipid-dependent coagulation assays for lupus inhibitor, protein C activity, protein S activity or free protein S antigen, and antithrombin activity. This result has been reviewed and approved by Luz Foote M.D., Ph.D. BACKGROUND INFORMATION: Prothrombin (F2) c.*97G>A (S36250S) Pathogenic Variant CHARACTERISTICS: The Factor II, c.*97G>A (D23625X) pathogenic variant is a common genetic risk factor for venous thrombosis associated with elevated prothrombin levels leading to increased rates of thrombin generation and excessive growth of fibrin clots. The expression of Factor II thrombophilia is impacted by coexisting genetic thrombophilic disorders, acquired thrombophilic disorders (eg, malignancy, hyperhomocysteinemia, high factor VIII levels), and circumstances including: , oral contraceptive use, hormone replacement therapy, selective estrogen receptor modulators, travel, central venous catheters, surgery, and organ transplantation. INCIDENCE: Approximately 2 percent of Caucasians and 0.3 percent of Americans are heterozygous; homozygosity occurs in 1 in 10,000 individuals. INHERITANCE: Incomplete autosomal dominant. PENETRANCE: The risk of thrombosis is increased 2-4 fold for heterozygotes and further increased for homozygotes. CAUSE: Homozygosity or heterozygosity for F2 c.*97G>A (H02336D). PATHOGENIC VARIANT TESTED: F2 c.*97G>A (M66744P). CLINICAL SENSITIVITY FOR VENOUS THROMBOSIS: Approximately 10 percent. METHODOLOGY: Polymerase chain reaction and fluorescence monitoring. ANALYTICAL SENSITIVITY AND SPECIFICITY: 99 percent. LIMITATIONS: Diagnostic errors can occur due to rare sequence variations. F2 gene variants, other than c.*97G>A (N17844L), will not be detected. This test was developed and its performance characteristics determined by [facility]. It has not been cleared or approved by the US Food and Drug Administration. This test was performed in a CLIA certified laboratory and is intended for clinical purposes. Counseling and informed consent are recommended for genetic testing. Consent forms are available online. Performed By: [facility] [address] [place] [address] [employer] Operator: Byron Freeman MD, PhD CLIA Number: [id number] Performed By: #### L [id number] ####[facility] ([facility])[address] [place], [place] [id number] PT PCR SPECIMEN Whole Blood Normal [facility] Comment on above: Performed By: #### L [id number] ####[facility] ([facility])[address] [place], [place] [id number] ALDOSTERONEon 03-14-2024 ALDOSTERONE (NG/DL) IN SER/PLAS <3.0 Normal [facility] Comment on above: Result Comment: INTE RPRETIVE INFORMATION: Aldosterone, Serum Reference intervals for age 15 and older: Upright ......... 4.0 - 31.0 ng/dL Supine .......... Less than or equal to 16.0 ng/dL Unspecified ..... Less than or equal to 31.0 ng/dL Normal serum levels of aldosterone are dependent on the sodium intake and whether the patient is upright or supine. High sodium intake will tend to suppress serum aldosterone, whereas low sodium intake will elevate serum aldosterone. The reference intervals for serum aldosterone are based on normal sodium intake. Access complete set of age- and/or gender-specific reference intervals for this test in the [facility] Test Directory ([employer]). Performed By: [facility] [address] [place], [place] [id number] [employer] Operator: Byron Freeman MD, PhD CLIA Number: [id number] Performed By: #### L [id number] #### [facility] ([facility]) [address] [place] [address] ANTI-XA (HEPARIN LEVEL)on HEPARIN UNFRACTIONATED (U/ML) IN PPP BY CHROMOGENIC METHOD >1.00 Critically high 0.3-0.7 [facility] Comment on above: Order Comment: Check anti-Xa level every 6 hours while on heparin infusion, or per protocol.PTT >200 sec Performed By: #### L [id number] ####[facility] ([facility])[address] [place] [address] HEPARIN UNFRACTIONATED (U/ML) IN PPP BY CHROMOGENIC METHOD 0.19 IU/mL Low 0.3-0.7 [facility] Comment on above: Order Comment: Check anti-Xa level every 6 hours while on heparin infusion, or per protocol. Result Comment: Liza roxaban and Apixaban will interfere with the anti Xa assay used to monitor UFH and LMWH. Performed By: #### L [id number] #### [facility] ([facility]) [address] [place] [address] CBCon 03-14-2024 Erythrocyte distribution width (RBC) [Ratio] 19.0 % High 11.5-15.0 [facility] Comment on above: Performed By: #### L [id number] #### [facility] ([facility]) [address] [place] [address] ERYTHROCYTE MEAN CORPUSCULAR HEMOGLOBIN CONCENTRATION (G/DL) BY AUTOMATED 31.7 g/dL Low 32.0-35.0 [facility] Comment on above: Performed By: #### L [id number] #### [facility] ([facility]) [address] [place] [address] Hematocrit (Bld) [Volume fraction] 19.9 % Low 39.0-55.0 [facility] Comment on above: Performed By: #### L [id number] #### [facility] ([facility]) [address] [place] [address] Hemoglobin (Bld) [Mass/Vol] 6.3 g/dL Low 13.0-17.0 [facility] Comment on above: Performed By: #### L [id number] #### [facility] ([facility]) [address] [place] [address] MCH (RBC) [Entitic mass] 29.3 pg Normal 27.0-33.0 [facility] Comment on above: Performed By: #### L [id number] #### [facility] ([facility]) [address] [place] [address] MCV (RBC) [Entitic vol] 92.6 fL Normal 82.0-98.0 [facility] Comment on above: Performed By: #### L [id number] #### [facility] ([facility]) [address] [place] [address] PLATELETS (10*3/UL) IN BLOOD AUTOMATED COUNT 247 10*3/uL Normal 150-400 [facility] Comment on above: Performed By: #### L [id number] #### [facility] ([facility]) [address] [place] [address] RBC (Bld) [#/Vol] 2.15 10*6/uL Low 4.20-5.70 [facility] Comment on above: Performed By: #### L [id number] #### [facility] ([facility]) [address] [place] [address] WBC (Bld) [#/Vol] 6.92 10*3/uL Normal 4.00-10.60 [facility] Comment on above: Performed By: #### L [id number] #### [facility] ([facility]) [address] [place] [address] COMPREHENSIVE METABOLIC PANE Ankur 03-14-2024 Albumin [Mass/Vol] 2.1 g/dL Low 3.5-5.7 [facility] Comment on above: Performed By: #### L [id number] #### [facility] ([facility]) [address] [place] [address] ALP [Catalytic activity/Vol] 82 U/L Normal 34-104 [facility] Comment on above: Performed By: #### L [id number] #### [facility] ([facility]) [address] [place] [address] ALT [Catalytic activity/Vol] 19 U/L Normal 7-52 [facility] Comment on above: Performed By: #### L [id number] #### [facility] ([facility]) [address] [place] [address] Anion gap [Moles/Vol] 11 mmol/L Normal 7-20 [facility] Comment on above: Performed By: #### L [id number] #### [facility] ([facility]) [address] [place] [address] AST [Catalytic activity/Vol] 40 U/L High 13-39 [facility] Comment on above: Performed By: #### L [id number] #### [facility] ([facility]) [address] [place] [address] Bilirubin [Mass/Vol] 0.9 mg/dL Normal 0.3-1.0 [facility] Comment on above: Performed By: #### L [id number] #### [facility] ([facility]) [address] [place] [address] Calcium [Mass/Vol] 7.0 mg/dL Low 8.6-10.3 [facility] Comment on above: Performed By: #### L [id number] #### [facility] ([facility]) [address] [place] [address] Chloride [Moles/Vol] 99 mmol/L Normal 98-107 [facility] Comment on above: Performed By: #### L [id number] #### [facility] ([facility]) [address] [place] [address] CO2 [Moles/Vol] 20 mmol/L Low 21-31 [facility] Comment on above: Performed By: #### L [id number] #### [facility] ([facility]) [address] [place] [address] Creatinine [Mass/Vol] 0.88 mg/dL Normal 0.70-1.30 [facility] Comment on above: Performed By: #### L [id number] #### [facility] ([facility]) [address] [place] [address] GLOMERULAR FILTRATION RATE ML/MIN/1.73 SQ M.PREDICTED 95.4 mL/min/1.73m*2 Normal >60.0 [facility] Comment on above: Result Comment: The [facility]???s estimated glomerular filtration rate (eGFR) will no longer include consideration of race in its calculation. The National Kidney Foundation???s eGFR Task Force developed new recommendations for the estimation of the glomerular filtration rate in the [place] They recommend immediate implementation of the new equation refit without the race variable in all laboratories because the calculation does not include race. In addition to not including race in the calculation and reporting, it included diversity in its development, and has acceptable performance characteristics and potential consequences that do not disproportionately affect any one group of individuals. Performed By: #### L [id number] #### [facility] ([facility]) [address] [place] [address] Glucose [Mass/Vol] 355 mg/dL High 70-100 [facility] Comment on above: Performed By: #### L [id number] #### [facility] ([facility]) [address] [place] [address] Potassium [Moles/Vol] 3.3 mmol/L Low 3.5-5.1 [facility] Comment on above: Performed By: #### L [id number] #### [facility] ([facility]) [address] [place] [address] Protein [Mass/Vol] 5.0 g/dL Low 6.0-8.3 [facility] Comment on above: Performed By: #### L [id number] #### [facility]) [address] [place] [address] Sodium [Moles/Vol] 127 mmol/L Low 136-145 [facility] Comment on above: Performed By: #### L [id number] #### [facility] ([facility]) [address] [place] [address] Urea nitrogen [Mass/Vol] 6 mg/dL Low 7-25 [facility] Comment on above: Performed By: #### L [id number] #### [facility] [address] [facility] [place] [address] UREA NITROGEN/CREATININE (MASS RATIO) IN SER/PLAS 6.8 Normal [facility] Comment on above: Performed By: #### L [id number] #### [facility] ([facility]) [address] [place] [address] CORTISOLon 03-14-2024 CORTISOL (UG/DL) IN SER/PLAS 11.8 ug/dL High 0-9 [facility] Comment on above: Performed By: #### L [id number] ####[facility] ([facility])[address] [place] [place] [address] CT ABDOMEN PELVIS W IV CONTR Zohra 03-14-2024 CT ABDOMEN PELVIS W IV CONTRAST STUDY: ABDOMEN AND PELVIS CT WITH CONTRAST HISTORY: Adrenal mass COMPARISON: 08/03/2022 TECHNIQUE: Routine CT abdomen and pelvis was performed with contrast. All CT scans at this facility use dose modulation, iterative reconstruction, and/or weight based dosing when appropriate to reduce radiation dose to as low as reasonably achievable. FINDINGS: Small bilateral pleural effusions. Adjacent compressive atelectasis in the right lower lobe. Groundglass opacities in the left lower lobe. Coronary artery calcifications. 1.1 cm higher attenuation lesion in the inferior right hepatic lobe, incompletely characterized on this study. No additional liver lesions. Gallbladder is contracted. The right adrenal gland, spleen, pancreas, and right kidney are unremarkable. Small left renal stone. Heterogeneously enhancing, centrally necrotic left adrenal mass measuring 6.1 x 4.2 cm, new since previous study. Atherosclerotic disease in the abdominal aorta and iliac vessels. No enlarged abdominal or pelvic lymph nodes. Foci of air in the urinary bladder, which is decompressed. Small amount of ascitic fluid in the pelvis. The small and large bowel are of normal caliber with no evidence of bowel wall thickening. No free intraperitoneal air. Visualized body wall structures are unremarkable. Moderate to severe compression deformity of the L1 vertebral body, which appears chronic. IMPRESSION: * Heterogeneously enhancing, centrally necrotic left adrenal mass measuring 6.1 x 4.2 cm, which is new in comparison with previous CT from July 2022. This is highly suggestive of adrenal malignancy/metastatic lesion. * Small bilateral pleural effusions. * Groundglass opacities in the left lower lobe concerning for infectious or inflammatory process. * Small amount of pelvic ascites. Electronically signed: Nacho Tolbert MD. Normal [facility] DHEAon 03-14-2024 DEHYDROEPIANDROSTERONE (DHEA) (NG/ML) IN SER/PLAS 0.212 ng/mL Low 0.630-4.70 0 [facility] Comment on above: Result Comment: REFE RENCE INTERVAL: Dehydroepiandrosterone by TMS Access complete set of age- and/or gender-specific reference intervals for this test in the [facility] Test Directory ([employer]). This test was developed and its performance characteristics determined by [facility]. It has not been cleared or approved by the US Food and Drug Administration. This test was performed in a CLIA certified laboratory and is intended for clinical purposes. Performed By: [facility] [address] [place] [id number] [employer] Operator: Byron Freeman MD, PhD CLIA Number: [id number] Performed By: #### L [id number] #### [facility] ([facility]) [address] [place] [address] METANEPHRINES PLASMAon 03-14 METANEPHRINE 0.21 nmol/L Normal 0.00-0.49 [facility] Comment on above: Performed By: #### L [id number] #### [facility] ([facility]) [address] [place] [address] METANEPHRINE INTERP See Note Normal [facility] Comment on above: Result Comment: INTE RPRETIVE INFORMATION: Metanephrines, Plasma (Free) This test is useful in the detection of pheochromocytoma, a rare neuroendocrine tumor. The majority of patients with pheochromocytoma have a plasma normetanephrine concentration in excess of 2.2 nmol/L and/or a metanephrine concentration in excess of 1.1 nmol/L. Increased concentrations of these analytes serve as confirmation for diagnosis. Patients with essential hypertension and plasma concentrations of normetanephrine below 0.9 nmol/L and a metanephrine concentration below 0.5 nmol/L, can be excluded from further testing. If clinical suspicion remains, repeat testing or testing for metanephrines in a 24-hr. urine specimen should be considered. This test was developed and its performance characteristics determined by [facility]. It has not been cleared or approved by the US Food and Drug Administration. This test was performed in a CLIA certified laboratory and is intended for clinical purposes. Performed By: [facility] [address] [place] [id number] [employer] Operator: Byron Freeman MD, PhD CLIA Number: [id number] Performed By: #### L [id number] #### [facility] ([facility]) [address] [place] [address] NORMETANEPHRINE 0.45 nmol/L Normal 0.00-0.89 [facility] Comment on above: Performed By: #### L [id number] #### [facility] ([facility]) [address] [place] [address] RENIN ACTIVITYon 03-14-2024 RENIN ACTIVITY 0.2 ng/mL/hr Normal [facility] Comment on above: Result Comment: INTE RPRETIVE INFORMATION: Renin Activity Adult, Normal sodium diet: Supine ................. 0.2-1.6 ng/mL/hr Upright ................ 0.5-4.0 ng/mL/hr Children, Normal sodium diet, Supine: (1-7 days) ..... 2.0-35.0 ng/mL/hr Cord blood ............. 4.0-32.0 ng/mL/hr 1-12 mos ............... 2.4-37.0 ng/mL/hr 13 mos-3 yrs ........... 1.7-11.2 ng/mL/hr 4-5 yrs ................ 1.0- 6.5 ng/mL/hr 6-10 yrs ............... 0.5- 5.9 ng/mL/hr 11-15 yrs .............. 0.5- 3.3 ng/mL/hr Children, normal sodium diet, Upright: 0-3 yrs ................ Not Available 4-5 yrs ................ Less than or equal to 15 ng/mL/hr 6-10 yrs ............... Less than or equal to 17 ng/mL/hr 11-15 yrs .............. Less than or equal to 16 ng/mL/hr Plasma renin activity measures enzyme ability to convert angiotensinogen to angiotensin I and is limited by the availability of angiotensinogen. Plasma renin activity is not an accurate indicator of enzyme activity when angiotensinogen is decreased. This test was developed and its performance characteristics determined by [facility]. It has not been cleared or approved by the US Food and Drug Administration. This test was performed in a CLIA certified laboratory and is intended for clinical purposes. Performed By: [facility] [address] [place] [address] [employer] Operator: Byron Freeman MD, PhD CLIA Number: [id number] Performed By: #### L [id number] ####[facility] ([facility])[address] [place] [address] RETICULOCYTE PANELon 025 HEMOGLOBIN (PG) IN RETICULOCYTES 28.1 pg Normal 28.0-36.0 [facility] Comment on above: Performed By: #### L [id number] #### [facility] ([facility]) [address] [place] [address] IMMATURE RETICULOCYTE FRACTION (%) 33.2 % High 2-16 [facility] Comment on above: Performed By: #### L [id number] #### [facility] ([facility]) [address] [place] [address] RETICULOCYTES (10*6/UL) IN BLOOD 0.0670 10*6/uL Normal 0.0250-0.1 000 [facility] Comment on above: Performed By: #### L [id number] #### [facility] ([facility]) [address] [place] [address] Reticulocytes/100 RBC (Bld) 3.10 % High 0.50-1.80 [facility] Comment on above: Performed By: #### L [id number] #### [facility] ([facility]) [address] [place] [address] TYPE AND SCREENon 03-14-2024 AB SCREEN Negative Normal [facility] Comment on above: Performed By: #### L [id number] ####[facility], ABO group Nom (Bld) A Normal [facility] Comment on above: Performed By: #### L [id number] ####[facility], RH TYPE IN BLOOD Positive Normal [facility] Comment on above: Performed By: #### L [id number] ####[facility], 30on 03-13-2024 30 The patient is Moderately Stable - Low risk of patient condition declining or worsening The patient's goals for the shift include Comfort and rest The clinical goals for the shift include VSS and comfort Problem: Pain - Adult Goal: Verbalizes/displays adequate comfort level or baseline comfort level Outcome: Progressing Problem: Safety - Adult Goal: Free from fall injury Outcome: Progressing Problem: Chronic Conditions and Co-morbidities Goal: Patient's chronic conditions and co-morbidity symptoms are monitored and maintained or improved Outcome: Progressing Normal [facility] ANTI-XA (HEPARIN LEVEL)on HEPARIN UNFRACTIONATED (U/ML) IN PPP BY CHROMOGENIC METHOD <0.10 Invalid Interpretation Code 0.3-0.7 [facility] Comment on above: Result Comment: Dorothy roxaban and Apixaban will interfere with the anti Xa assay used to monitor UFH and LMWH. Performed By: #### L [id number] #### [facility] ([facility]) [address] [place] [address] APTTon 03-13-2024 ACTIVATED PARTIAL THROMBOPLASTIN TIME IN PPP BY COAGULATION ASSAY 26.0 Seconds Normal 25.0-35.0 [facility] Comment on above: Order Comment: Basel ine aPTT before initiating heparin infusion. Result Comment: Clin ical significance of the APTT is questionable in the presence of heparin. Performed By: #### L [id number] #### [facility] ([facility]) [address] [place] [address] B-TYPE NATRIURETIC PEPTIDEon 03-13-2024 Natriuretic peptide B (Bld) [Mass/Vol] 593 pg/mL High 0-100 [facility] Comment on above: Performed By: #### L [id number] ####[facility] ([facility])[address] [place] [address] BASIC METABOLIC PANELon Anion gap [Moles/Vol] 9 mmol/L Normal 7-20 [facility] Comment on above: Performed By: #### L [id number] ####[facility] ([facility])[address] [place] [address] Calcium [Mass/Vol] 7.6 mg/dL Low 8.6-10.3 [facility] Comment on above: Performed By: #### L [id number] ####[facility] ([facility])[address] [place] [address] Chloride [Moles/Vol] 105 mmol/L Normal 98-107 [facility] Comment on above: Performed By: #### L [id number] ####[facility] ([facility])[address] [place] [address] CO2 [Moles/Vol] 20 mmol/L Low 21-31 [facility] Comment on above: Performed By: #### L [id number] ####[facility] ([facility])[address] [place] [address] Creatinine [Mass/Vol] 0.91 mg/dL Normal 0.70-1.30 [facility] Comment on above: Performed By: #### L [id number] ####[facility] ([facility])[address] [place] [address] GLOMERULAR FILTRATION RATE ML/MIN/1.73 SQ M.PREDICTED 93.5 mL/min/1.73m*2 Normal >60.0 [facility] Comment on above: Result Comment: The [facility]???s estimated glomerular filtration rate (eGFR) will no longer include consideration of race in its calculation. The National Kidney Foundation???s eGFR Task Force developed new recommendations for the estimation of the glomerular filtration rate in the [place] They recommend immediate implementation of the new equation refit without the race variable in all laboratories because the calculation does not include race. In addition to not including race in the calculation and reporting, it included diversity in its development, and has acceptable performance characteristics and potential consequences that do not disproportionately affect any one group of individuals. Performed By: #### L [id number] ####[facility] ([facility])[address] [place] [address] Glucose [Mass/Vol] 90 mg/dL Normal 70-100 [facility] Comment on above: Performed By: #### L [id number] ####[facility] ([facility])[address] [place] [address] Potassium [Moles/Vol] 3.4 mmol/L Low 3.5-5.1 [facility] Comment on above: Performed By: #### L [id number] ####[facility] ([facility])[address] [place] [address] Sodium [Moles/Vol] 131 mmol/L Low 136-145 [facility] Comment on above: Performed By: #### L [id number] ####[facility] ([facility])[address] [place] [address] Urea nitrogen [Mass/Vol] 7 mg/dL Normal 7-25 [facility] Comment on above: Performed By: #### L [id number] ####[facility] ([facility])[address] [place] [address] UREA NITROGEN/CREATININE (MASS RATIO) IN SER/PLAS 7.7 Normal [facility] Comment on above: Performed By: #### L [id number] ####[facility] ([facility])[address] [place] [address] CBC WITH AUTO DIFFERENTIALon 03-13-2024 Erythrocyte distribution width (RBC) [Ratio] 19.0 % High 11.5-15.0 [facility] Comment on above: Performed By: #### L [id number] ####[facility] ([facility])[address] [place] [address] ERYTHROCYTE MEAN CORPUSCULAR HEMOGLOBIN CONCENTRATION (G/DL) BY AUTOMATED 31.7 g/dL Low 32.0-35.0 [facility] Comment on above: Performed By: #### L [id number] ####[facility] ([facility])[address] [place] [address] Hematocrit (Bld) [Volume fraction] 20.8 % Low 39.0-55.0 [facility] Comment on above: Performed By: #### L [id number] ####[facility] ([facility])[address] [place] [address] Hemoglobin (Bld) [Mass/Vol] 6.6 g/dL Low 13.0-17.0 [facility] Comment on above: Performed By: #### L [id number] ####[facility] ([facility])[address] [place] [address] MCH (RBC) [Entitic mass] 29.3 pg Normal 27.0-33.0 [facility] Comment on above: Performed By: #### L [id number] ####[facility] ([facility])[address] [place] [address] MCV (RBC) [Entitic vol] 92.4 fL Normal 82.0-98.0 [facility] Comment on above: Performed By: #### L [id number] ####[facility] ([facility])[address] [place] [address] NRBC (PER 100 WBCS) BY AUTOMATED COUNT 0.0 % Normal 0 [facility] Comment on above: Performed By: #### L [id number] ####[facility] ([facility])[address] [place] [address] PLATELETS (10*3/UL) IN BLOOD AUTOMATED COUNT 248 10*3/uL Normal 150-400 [facility] Comment on above: Performed By: #### L [id number] ####[facility] ([facility])[address] [place] [address] RBC (Bld) [#/Vol] 2.25 10*6/uL Low 4.20-5.70 [facility] Comment on above: Performed By: #### L [id number] ####[facility] ([facility])[address] [place] [address] WBC (Bld) [#/Vol] 7.50 10*3/uL Normal 4.00-10.60 [facility] Comment on above: Performed By: #### L [id number] ####[facility] ([facility])[address] [place] [address] FERRITINon 03-13-2024 FERRITIN (NG/ML) IN SER/PLAS 903.0 ng/mL High 24.0-336.0 [facility] Comment on above: Performed By: #### L [id number] ####[facility] ([facility])[address] [place] [address] FOLATEon 03-13-2024 FOLATE (NG/ML) IN SER/PLAS 7.62 ng/mL Normal 6.6-1000 [facility] Comment on above: Performed By: #### L [id number] ####[facility] ([facility])[address] [place] [address] HEPATIC FUNCTION PANELon Albumin [Mass/Vol] 2.2 g/dL Low 3.5-5.7 [facility] Comment on above: Performed By: #### L [id number] #### [facility] ([facility]) [address] [place] [address] ALP [Catalytic activity/Vol] 85 U/L Normal 34-104 [facility] Comment on above: Performed By: #### L [id number] #### [facility] ([facility]) [address] [place] [address] ALT [Catalytic activity/Vol] 21 U/L Normal 7-52 [facility] Comment on above: Performed By: #### L [id number] #### [facility] ([facility]) [address] [place] [address] AST [Catalytic activity/Vol] 46 U/L High 13-39 [facility] Comment on above: Performed By: #### L [id number] #### [facility] ([facility]) [address] [place] [address] Bilirubin [Mass/Vol] 0.7 mg/dL Normal 0.3-1.0 [facility] Comment on above: Performed By: #### L [id number] #### [facility] ([facility]) [address] [place] [address] Magnesium [Mass/Vol] 0.2 mg/dL Normal 0-0.2 [facility] Comment on above: Performed By: #### L [id number] #### [facility] ([facility]) [address] [place] [address] Protein [Mass/Vol] 5.2 g/dL Low 6.0-8.3 [facility] Comment on above: Performed By: #### L [id number] #### [facility] ([facility]) [address] [place] [address] IRON AND TIBCon 03-13-2024 IRON (UG/DL) IN SER/PLAS 33 ug/dL Low 50-212 [facility] Comment on above: Performed By: #### L [id number] ####[facility] ([facility])[address] [place] [address] IRON BINDING CAPACITY (UG/DL) IN SER/PLAS 153 ug/dL Low 250-450 [facility] Comment on above: Performed By: #### L [id number] ####[facility] ([facility])[address] [place] [address] IRON BINDING CAPACITY.UNSATURATED (UG/DL) IN SER/PLAS 120.0 ug/dL Low 155.0-355. 0 [facility] Comment on above: Performed By: #### L [id number] ####[facility] ([facility])[address] [place] [address] IRON SATURATION (%) IN SER/PLAS 22 % Normal 20-50 [facility] Comment on above: Performed By: #### L [id number] ####[facility] ([facility])[address] [place] [address] MAGNESIUMon 03-13-2024 Magnesium [Mass/Vol] 2.2 mg/dL Normal 1.9-2.7 [facility] Comment on above: Performed By: #### L [id number] ####[facility] ([facility])[address] [place] [address] MANUAL DIFFERENTIALon 2024 ANISOCYTOSIS PRESENCE IN BLOOD BY LIGHT MICROSCOPY Moderate Normal [facility] Comment on above: Performed By: #### L [id number] ####[facility] ([facility])[address] [place] [address] BASOPHILS (10*3/UL) IN BLOOD BY CALCULATION 0.06 10*3/uL Normal 0.00-0.20 [facility] Comment on above: Performed By: #### L [id number] ####[facility] ([facility] [place] [address] BASOPHILS/100 LEUKOCYTES IN BLOOD BY AUTOMATED COUNT 0.8 % Normal 0.0-1.0 [facility] Comment on above: Performed By: #### L [id number] ####[facility] ([facility] [place] [address] EOSINOPHILS (10*3/UL) IN BLOOD BY CALCULATION 0.09 10*3/uL Normal 0.00-0.50 [facility] Comment on above: Performed By: #### L [id number] ####[facility] ([facility])[address] [place] [address] EOSINOPHILS/100 LEUKOCYTES IN BLOOD BY AUTOMATED COUNT 1.2 % Normal 0.0-6.0 [facility] Comment on above: Performed By: #### L [id number] ####[facility] ([facility])[address] [place] [address] IMMATURE GRANULOCYTES (10*3/UL) IN BLOOD BY CALCULATION 0.04 10*3/uL Normal 0.00-0.20 [facility] Comment on above: Performed By: #### L [id number] ####[facility] ([facility])[address] [place] [address] IMMATURE GRANULOCYTES/100 LEUKOCYTES IN BLOOD BY AUTOMATED COUNT 0.5 % Normal 0.0-1.0 [facility] Comment on above: Performed By: #### L [id number] ####[facility] ([facility])[address] [place] [address] LYMPHOCYTES (10*3/UL) IN BLOOD BY CALCULATION 1.76 10*3/uL Normal 1.20-4.00 [facility] Comment on above: Performed By: #### L [id number] ####[facility] ([facility])[address] [place] [address] LYMPHOCYTES/100 LEUKOCYTES IN BLOOD BY AUTOMATED COUNT 23.5 % Normal 20.0-45.0 [facility] Comment on above: Performed By: #### L [id number] ####[facility] ([facility])[address] [place] [address] MONOCYTES (10*3/UL) IN BLOOD BY CALCUATION 0.57 10*3/uL Normal 0.10-1.00 [facility] Comment on above: Performed By: #### L [id number] ####[facility] ([facility] [place] [address] MONOCYTES/100 LEUKOCYTES IN BLOOD BY AUTOMATED COUNT 7.6 % Normal 5.0-12.0 [facility] Comment on above: Performed By: #### L [id number] ####[facility] ([facility])[address] [facility] [place] [address] NEUTROPHILS (10*3/UL) IN BLOOD BY CALCULATION 5.0 10*3/uL Normal 1.6-7.6 [facility] Comment on above: Performed By: #### L [id number] ####[facility] ([facility])[address] [place] [address] NEUTROPHILS/100 LEUKOCYTES IN BLOOD BY AUTOMATED COUNT 66.4 % Normal 40.0-72.0 [facility] Comment on above: Performed By: #### L [id number] ####[facility] ([facility])[address] [place] [address] POIKILOCYTOSIS (PRESENCE) IN BLOOD BY LIGHT MICROSCOPY Slight Normal [facility] Comment on above: Performed By: #### L [id number] ####[facility] ([facility])[address] [place] [address] POLYCHROMASIA IN BLOOD BY LIGHT MICROSCOPY Slight Normal [facility] Comment on above: Performed By: #### L [id number] ####[facility] ([facility])[address] [place] [address] NURSNOTEon 03-13-2024 NURSNOTE Patient arrived to [facility] via stretcher. Direct admit from [facility]. Normal [facility] PHOSPHORUSon 03-13-2024 Magnesium [Mass/Vol] 3.3 mg/dL Normal 2.5-5.0 [facility] Comment on above: Performed By: #### L [id number] #### [facility] ([facility]) [address] [place] [address] PROTIME-INRon 03-13-2024 INR IN PPP BY COAGULATION ASSAY 1.06 Normal 0.90-1.10 [facility] Comment on above: Result Comment: ACCC P RECOMMENDED INR FOR WARFARIN THERAPY CONDITION INR PROPHYLAXIS OF VENOUS THROMBOSIS 2-3 (HIGH-RISK SURGERY) TREATMENT OF VENOUS THROMBOSIS 2-3 TREATMENT OF PULMONARY EMBOLISM 2-3 PREVENTION OF SYSTEMIC EMBOLISM: 2-3 ACUTE MYOCARDIAL INFARCTION TISSUE HEART VALVES VALVULAR HEART DISEASE ATRIAL FIBRILLATION RECURRENT SYSTEMIC EMBOLISM MECHANICAL HEART VALVE 2.5-3.5 FROM: ORAL ANTICOAGULANTS. MECHANISM OF ACTION, CLINICAL EFFECTIVENESS, AND OPTIMAL THERAPEUTIC RANGE. CHEST 1995;108:231S-246S. Performed By: #### L [id number] ####[facility] [[email or web address]] [employer])[address] [place] [address] PROTHROMBIN TIME (PT) IN PPP BY COAGULATION ASSAY 13.8 Seconds Normal 12.3-14.8 [facility] Comment on above: Performed By: #### L [id number] ####[facility] [[email or web address]] [facility])[address] [place] [address] TROPONIN Ion 03-13-2024 Troponin I.cardiac [Mass/Vol] 0.02 ng/mL Normal 0.00-0.04 [facility] Comment on above: Performed By: #### L [id number] ####[facility] [[email or web address]] [facility])[address] [address] VITAMIN B12on 03-13-2024 Cobalamin (Vitamin B12) [Mass/Vol] 585 pg/mL Normal 180-914 [facility] Comment on above: Result Comment: REFE RENCE RANGES: 180-914 pg/mL Normal 145-179 pg/mL Indeterminate <145 pg/mL Deficient Performed By: #### L [id number] ####[facility])[address] [address] Ankur 03-12-2024 L ---- Specimen: [id number] Received: 03/14/24 Status: ANDRES Hoffman Num: [id number] Spec Type: Impression Subm Dr: Jack Canchola DO Tissues: PATHPER Procedures: PATHREVIEW Age/ Patient Sex Location Account Attending Physician Jaret Grajeda 63/M LABELL [id number] Jack Canchola DO SPEC NUM: [id number] RECD: 03/14/24 STATUS: ANDRES HOFFMAN NUM: [id number] SAHLEY: 03/12/[address]: Jack Canchola DO ENTERED: 03/14/24 YANET NORTH: Alberto,Lab SPEC TYPE: Impression DEPT: SHANTELL Cole ENTERED BY: [id number] RECV BY: [id number] ORDERED: PATHREVIEW ORDERED: PATHREVIEW Pathologist Review Abnormal CBC for peripheral blood smear review -Mild leukocytosis with mild lymphocytosis -Mild to moderate anemia of mild macrocytic type, including mild to moderate anisocytosis, mild macrocytosis, at least rare polychromatophils, and rare schistocytes -Minor platelet clumping without morphological abnormality of the platelet population Comment: -The cause of mild anemia of mild macrocytic type in this male adult patient is not clear but may be anemia of chronic disease type. Macrocytic anemia can be associated with chronic liver disease, alcoholism, or B12 and folate deficiencies. There is a slightly elevated serum creatinine, suggesting mild CKD. There is slightly elevated ALP, AST, and total bilirubin and apparent hypoalbuminemia, consistent with abnormal liver function tests, and suggesting underlying chronic liver disease and/or alcoholism. One cause of elevated lactate is due to severe liver disease of note. The lymphocytes showing a spectrum of sizes and often with ovoid nuclei without obvious high NC ratio, more favoring reactive lymphocytosis. The possibility of an underlying benign monoclonal B lymphocytosis also cannot be completely excluded. Continuous clinical correlation and laboratory follow-ups are also suggested CPT: 67690 Specimen: [id number] Received: 03/14/24 Status: ANDRES Millardkatya Num: [id number] Spec Type: Impression Subm Dr: Jack Canchola, Tissues: PATHPER Procedures: PATHREVIEW Patient: Jaret Grajeda [id number] (Continued) Specimen: [id number] Received: 03/14/24 (Continued) Signed (signature on file) Seema Uribe MD 03/16/241909 Specimen: [id number] Received: 03/14/24 Status: ANDRES Hoffman Num: [id number] Spec Type: Impression Subm Dr: Jack Canchola DO Tissues: PATHPER Procedures: PATHREVIEW Patient: Jaret Grajeda [id number] (Continued) Specimen: [id number] Received: 03/14/24 (Continued) CBC No results available. Specimen: [id number] Received: 03/14/24 Status: ANDRES Gisselle Num: [id number] Spec Type: Impression Subm Dr: Jack Canchola DO Tissues: PATHPER Procedures: PATHREVIEW Patient: Jaret Grajeda [id number] (Continued) Signed (signature on file) Seema Uribe MD 03/16/24 1910 Normal [facility] CT Chest W contrast Maci IMPRESSION: 1. [...] any questions regarding this interpretation, please call [phone]. If you are unable to reach us at the number above, please feel free to contact [facility] at [phone]. DIVISION OF RADIOLOGY * * *Final Report* * * DATE OF EXAM: Jan 24 2023 1:35PM [facility] 0539 - CT CHEST W IVCON [...] study. The upper abdomen is otherwise unremarkable. Sagger Filler (topogram) images: No additional findings. DIVISION OF RADIOLOGY Provider, [facility] - 01/25/2023 * * *Final Report* * * DATE OF EXAM: Jan 24 2023 1:35PM [facility] 0539 - CT CHEST W IVCON [...] study. The upper abdomen is otherwise unremarkable. Sagger Filler (topogram) images: No additional findings. IMPRESSION IMPRESSION: [...] any questions regarding this interpretation, please call [phone]. If you are unable to reach us at the number above, please feel free to contact [facility] at [phone]. [facility] CT Chest W contrast IVOrdere d By: Ccf Provider on 01-25-2023 [facility] PET+CT Guidance for localiza tion of [...] any questions regarding this interpretation, please call [phone]. If you are unable to reach us at the number above, please feel free to contact [facility] at [phone]. DIVISION OF RADIOLOGY * * *Final Report* [...] noncontrast CT scan. DIVISION OF RADIOLOGY Provider, [facility] - 01/25/2023 * * *Final Report* * [...] any questions regarding this interpretation, please call [phone]. If you are unable to reach us at the number above, please feel free to contact [facility] at [phone]. [facility] PET+CT Guidance for localiza tion of tumor of Skull base to mid-thigh-- W 18F-FDG IVOrdered By: Cckhloe Provider on 01-25-2023 [facility] CREATININE BLDOrdered By: Arabella Willard on 01-24-2023 Creatinine [Mass/Vol] 0.84 mg/dL 0.73 - 1.22 mg/dL [facility] GFR/1.73 sq M.predicted among non-blacks MDRD (S/P/Bld) [Vol rate/Area] 97 mL/min/{1.73_m2} - PINF [facility] Comment on above: Estimated Glomerular Filtration [...] Interpretation and review of laboratory results Normal [facility] GLUCOSE, BLOOD (POC)on 01-24 Glucose [Mass/Vol] 188 mg/dL Abnormal 74 - 99 mg/dL [facility] Comment on above: Location:[facility], [address] [place] [address] , [place], [place], [address] The Accu-Chek Inform II glucose meter has [...] Interpretation and review of laboratory results Abnormal [facility] No Panel Informationon 01-24 Radiology Study observation (narrative) Popeye otto [facility] SIX MINUTE WALKon 10-14-2022 [facility] CARDIAC ARIANE ADMITon 022 CK [Catalytic activity/Vol] 140 U/L Normal 39-308 [facility] Comment on above: Performed By: #### E TH, CMP, CMADM ####[facility] [address] [place] [id number]. Dalton Uribe CK.MB [Mass/Vol] 2.29 ng/mL Normal <=3.60 [facility] Comment on above: Performed By: #### E TH, CMP, CMADM ####[facility] [address] [place] [id number] Uribe HSTROP 9.7 pg/mL Normal 4.0-76.1 [facility] Comment on above: Result Comment: CUT- OFF POINTS HAVE BEEN ESTABLISHED BASED ON THE FOURTH UNIVERSAL DEFINITIONS OF MYOCARDIAL INFARCTION. THE UPPER REFERENCE LIMIT (URL) OF TROPONIN, DEFINED THE 99TH PERCENTILE OF cTnI DISTRIBUTION IN A REFERENCE POPULATION, HAS BEEN CONFIRMED THE DECISION THRESHOLD FOR TX DIAGNOSIS. Performed By: #### E TH, CMP, CMADM ####[facility] [address] [place] [address]DrKeshawn Uribe ARASH 43 ng/mL Normal 16-96 [facility] Comment on above: Performed By: #### E TH, CMP, CMADM ####[facility] [address] [place] [address]Dr. Dalton Uribe CBC AUTO DIFFon 06-19-2021 BASO # 0.0 103/ul Normal 0.0-0.1 [facility] Comment on above: Performed By: #### C BC #### [facility] [address] [place] [address] Dr. Dalton Uribe Basophils/100 WBC (Bld) 0.3 % Normal 0.2-2.0 [facility] Comment on above: Performed By: #### C BC #### [facility] [address] [place] [address] Dr. Dalton Uribe EO # 0.0 103/ul Normal 0.0-0.7 [facility] Comment on above: Performed By: #### C BC #### [facility] [address] [place] [address] Dr. Dalton Uribe Eosinophils/100 WBC (Bld) 0.1 % Critically low 0.9-7.0 [facility] Comment on above: Performed By: #### C BC #### [facility] [address] [place] [address] Dr. Dalton Uribe Erythrocyte distribution width (RBC) [Ratio] 12.5 % Normal 11.0-15.0 [facility] Comment on above: Performed By: #### C BC #### [facility] [address] [place] [address] Dr. Dalton Uribe Hematocrit (Bld) [Volume fraction] 39.5 % Critically low 42.0-54.0 [facility] Comment on above: Performed By: #### C BC #### [facility] [address] [place] [address] Dr. Dalton Uribe Hemoglobin (Bld) [Mass/Vol] 13.9 g/dL Critically low 14.0-18.0 [facility] Comment on above: Performed By: #### C BC #### [facility] [address] [place] [address] Dr. Dalton Uribe IG # 0.03 10e3/ul Normal 0.00-0.03 [facility] Comment on above: Performed By: #### C BC #### [facility] [address] [place] [address] Dr. Dalton Uribe IG % 0.3 % Normal 0.0-0.5 [facility] Comment on above: Performed By: #### C BC #### [facility] [address] [place] [address] Dr. Dalton Uribe LYMPH # 1.1 103/ul Critically low 1.2-3.8 [facility] Comment on above: Performed By: #### C BC #### [facility] [address] [place] [address] Dr. Dalton Uribe Lymphocytes/100 WBC (Bld) 10.1 % Critically low 20.5-60.0 [facility] Comment on above: Performed By: #### C BC #### [facility] [address] [place] [address] Dr. Dalton Uribe MANUAL DIFF REQ NO Normal [facility] Comment on above: Performed By: #### C BC #### [facility] [address] [place] [address] Dr. Dalton Uribe MCH (RBC) [Entitic mass] 33.3 pg Normal 25.9-34.0 [facility] Comment on above: Performed By: #### C BC #### [facility] [address] [place] [address] Dr. Dalton Uribe MCHC (RBC) [Mass/Vol] 35.2 g/dL Normal 29.9-35.2 [facility] Comment on above: Performed By: #### C BC #### [facility] [address] [place] [address] Dr. Dalton Uribe MCV (RBC) [Entitic vol] 94.7 fL Critically high 80.0-94 .0 [facility] Comment on above: Performed By: #### C BC #### [facility] [address] [place] [address] Dr. Dalton Uribe MONO # 1.0 103/ul Critically high 0.3-0.8 [facility] Comment on above: Performed By: #### C BC #### [facility] [address] [place] [address] Dr. Dalton Uribe Monocytes/100 WBC (Bld) 9.1 % Normal 1.7-12.0 [facility] Comment on above: Performed By: #### C BC #### [facility] [address] [place] [address] Dr. Dalton Uribe NEUT # 8.7 103/ul Critically high 1.4-6.5 [facility] Comment on above: Performed By: #### C BC #### [facility] [address] [place] [address] Dr. Dalton Uribe Neutrophils/100 WBC (Bld) 80.1 % Critically high 43.0-75.0 [facility] Comment on above: Performed By: #### C BC #### [facility] [address] [place] [address] Dr. Dalton Uribe Platelet mean volume (Bld) [Entitic vol] 10.0 fL Normal 9.5-13.5 [facility] Comment on above: Performed By: #### C BC #### [facility] [address] [place] [address] [address] Dalton Uribe PLT 133 103/ul Critically low 150-450 [facility] Comment on above: Result Comment: few giant plts and large plts seen Performed By: #### C BC #### [facility] [address] [place] [address] [address] Dalton Uribe RBC 4.17 106/ul Critically low 4.70-6.10 [facility] Comment on above: Performed By: #### C BC #### [facility] [address] [place] [address] [address] Dalton Uribe WBC 10.9 103/ul Normal 4.0-11.0 [facility] Comment on above: Performed By: #### C BC #### [facility] [address] [place] [address] [address] HEAD WO CONon [...] by: HUBER STACY Date: 2021-06-19 12:16 Normal [facility] ETHANOL (BLD ALC)on 06-20-19 22 ALC NOTE NOTE: 80 mg/dl is th e legal limit for a blood alcohol level Normal [facility] Comment on above: Performed By: #### E , CMP, CMADM ####[facility] [address] [place] [address]Dr. Dalton Uribe Ethanol [Mass/Vol] mg/dL Normal [facility] Comment on above: Performed By: #### E , CMP, CMADM ####[facility] [address] [place] [address]Dr. Dalton Uribe PROF 14(COMP METB)on 022 Albumin [Mass/Vol] 3.8 g/dL Normal 3.4-5.0 [facility] Comment on above: Performed By: #### E , CMP, CMADM ####[facility] [address] [place] [address]Dr. Dalton Uribe Albumin/Globulin [Mass ratio] 1.0 {ratio} Normal [facility] Comment on above: Performed By: #### E , CMP, CMADM ####[facility] [address] [place], [place] [address]Dr. Dalton Uribe ALP [Catalytic activity/Vol] 88 U/L Normal 46-116 [facility] Comment on above: Performed By: #### E , CMP, CMADM ####[facility] [address] [place], [place] [address]Dr. Dalton Uribe ALT [Catalytic activity/Vol] 64 U/L Critically high 16-63 [facility] Comment on above: Performed By: #### E , CMP, CMADM ####[facility] [address] [place] [address]Dr. Dalton Uribe Anion gap [Moles/Vol] 16.0 mmol/L Normal [facility] Comment on above: Performed By: #### E , CMP, CMADM ####[facility] [address] [place], [place] [address]Dr. Dalton Uribe AST [Catalytic activity/Vol] 65 U/L Critically high 15-37 [facility] Comment on above: Performed By: #### E , CMP, CMADM ####[facility] [address] [place] [id number]. Dalton Uribe Bilirubin [Mass/Vol] 1.3 mg/dL Critically high 0.2-1.0 [facility] Comment on above: Performed By: #### E , CMP, CMADM ####[facility] [address] [place] [id number]. Dalton Uribe Calcium [Mass/Vol] 9.1 mg/dL Normal 8.5-10.1 [facility] Comment on above: Performed By: #### E , CMP, CMADM ####[facility] [address] [place] [id number]. Dalton Uribe Chloride [Moles/Vol] 92 mmol/L Critically low 98-107 [facility] Comment on above: Performed By: #### E , CMP, CMADM ####[facility] [address] [place] [address]Dr. Dalton Uribe CO2 [Moles/Vol] 25.4 mmol/L Normal 21.0-32.0 [facility] Comment on above: Performed By: #### E , CMP, CMADM ####[facility] [address] [place] [id number]. Emmamarbella Uribe Creatinine [Mass/Vol] 0.85 mg/dL Normal 0.70-1.30 [facility] Comment on above: Performed By: #### E , CMP, CMADM ####[facility] [address] [place] [id number]. Emmamarbella Rony EGFR-AF SLOVAK >60 Normal >=60 [facility] Comment on above: Performed By: #### E , CMP, CMADM ####[facility] [address] [place] [id number]. Dalton Uribe EGFR-NON AF SLOVAK >60 Normal >=60 [facility] Comment on above: Performed By: #### E , CMP, CMADM ####[facility] [address] [place] [id number]. Dalton Uribe Globulin (S) [Mass/Vol] 3.7 g/dL Normal [facility] Comment on above: Performed By: #### E TH, CMP, CMADM ####[facility] [address] [place] [address]Dr. Dalton Uribe Glucose [Mass/Vol] 106 mg/dL Normal 74-106 [facility] Comment on above: Performed By: #### E , CMP, CMADM ####[facility] [address] [place] [address]Dr. Dalton Uribe Potassium [Moles/Vol] 3.4 mmol/L Critically low 3.5-5.1 [facility] Comment on above: Performed By: #### E , CMP, CMADM ####[facility] [address] [place] [address]Dr. Dalton Uribe Protein [Mass/Vol] 7.5 g/dL Normal 6.4-8.2 [facility] Comment on above: Performed By: #### E , CMP, CMADM ####[facility] [address] [place] [address]Dr. Dalton Uribe Sodium [Moles/Vol] 130 mmol/L Critically low 136-145 [facility] Comment on above: Performed By: #### E , CMP, CMADM ####[facility] [address] [place] [address]Dr. Dalton Uribe Urea nitrogen [Mass/Vol] 10.0 mg/dL Normal 7.0-18.0 [facility] Comment on above: Performed By: #### E , CMP, CMADM ####[facility] [address] [place] [address]Dr. Dalton Uribe Urea nitrogen/Creatinine [Mass ratio] 11.8 mg/mg Normal [facility] Comment on above: Performed By: #### E , CMP, CMADM ####[facility] [address] [place] [address]Dr. Dalton Uribe XR CHEST 1 Von 06-19-2021 [...] ANNE GUADALUPE Date: 2021-06-19 12:27 Normal [facility] CBC AUTO DIFFon 06-18-2021 BASO # 0.0 103/ul Normal 0.0-0.1 [facility] Comment on above: Performed By: #### C BC ####[facility] [address] [place], [place] [address]Dr. Dalton Uribe Basophils/100 WBC (Bld) 0.3 % Normal 0.2-2.0 [facility] Comment on above: Performed By: #### C BC ####[facility] [address] [place], [place] [address]DrKeshawn Uribe EO # 0.0 103/ul Normal 0.0-0.7 [facility] Comment on above: Performed By: #### C BC ####[facility] [address] [place], [place] [address]Dr. Dalton Uribe Eosinophils/100 WBC (Bld) 0.1 % Critically low 0.9-7.0 [facility] Comment on above: Performed By: #### C BC ####[facility] [address] [place], [place] [address]DrKeshawn Uribe Erythrocyte distribution width (RBC) [Ratio] 12.7 % Normal 11.0-15.0 [facility] Comment on above: Performed By: #### C BC ####[facility] [address] [place], [place] [address]DrKeshawn Uribe Hematocrit (Bld) [Volume fraction] 42.5 % Normal 42.0-54.0 [facility] Comment on above: Performed By: #### C BC ####[facility] [address] [place], [place] [address]Dr. Emmamarbella Rony Hemoglobin (Bld) [Mass/Vol] 14.6 g/dL Normal 14.0-18.0 [facility] Comment on above: Performed By: #### C BC ####[facility] [address] [place] [address]Dr. Emmamarbella Rony IG # 0.04 10e3/ul Critically high 0.00-0.[address] [facility] Comment on above: Performed By: #### C BC ####[facility] [address] [place] [address]Dr. Dalton Uribe IG % 0.4 % Normal 0.0-0.5 [facility] Comment on above: Performed By: #### C BC ####[facility] [address] [place], [place] [address]DrKeshawn Uribe LYMPH # 1.1 103/ul Critically low 1.2-3.8 [facility] Comment on above: Performed By: #### C BC ####[facility] [address] [place], [place] [address]Dr. Dalton Uribe Lymphocytes/100 WBC (Bld) 10.6 % Critically low 20.5-60.0 [facility] Comment on above: Performed By: #### C BC ####[facility] [address] [place] [address]Dr. Dalton Uribe MANUAL DIFF REQ NO Normal [facility] Comment on above: Performed By: #### C BC ####[facility] [address] [place], [place] [address]DrKeshawn Cartermarbella Rony MCH (RBC) [Entitic mass] 32.7 pg Normal 25.9-34.0 [facility] Comment on above: Performed By: #### C BC ####[facility] [address] [place], [place] [address]DrKeshawn Dalton Rony MCHC (RBC) [Mass/Vol] 34.4 g/dL Normal 29.9-35.2 [facility] Comment on above: Performed By: #### C BC ####[facility] [address] [place], [place] [address]Dr. Dalton Uribe MCV (RBC) [Entitic vol] 95.3 fL Critically high 80.0-94 .0 [facility] Comment on above: Performed By: #### C BC ####[facility] [address] [place] [id number]. Dalton Uribe MONO # 1.0 103/ul Critically high 0.3-0.8 [facility] Comment on above: Performed By: #### C BC ####[facility] [address] [place] [address]Dr. Dalton Rony Monocytes/100 WBC (Bld) 9.9 % Normal 1.7-12.0 [facility] Comment on above: Performed By: #### C BC ####[facility] [address] [place] [address]Dr. Dalton Uribe NEUT # 8.1 103/ul Critically high 1.4-6.5 [facility] Comment on above: Performed By: #### C BC ####[facility] [address] [place] [address]Dr. Dalton Rony Neutrophils/100 WBC (Bld) 78.7 % Critically high 43.0-75.0 [facility] Comment on above: Performed By: #### C BC ####[facility] [address] [place] [address]Dr. Dalton Rony Platelet mean volume (Bld) [Entitic vol] 9.6 fL Normal 9.5-13.5 [facility] Comment on above: Performed By: #### C BC ####[facility] [address] [place] [id number]. Dalton Rony PLT 152 103/ul Normal 150-450 [facility] Comment on above: Performed By: #### C BC ####[facility] [address] [place] [address]Dr. Emmamarbella Rony RBC 4.46 106/ul Critically low 4.70-6.10 [facility] Comment on above: Performed By: #### C BC ####[facility] [address] [place] [address]Dr. Dalton Uribe WBC 10.2 103/ul Normal 4.0-11.0 [facility] Comment on above: Performed By: #### C BC ####[facility] [address] [place] [address]Dr. Dalton Uribe PROF 14(COMP METB)on 022 Albumin [Mass/Vol] 4.0 g/dL Normal 3.4-5.0 [facility] Comment on above: Performed By: #### T SH, T4, CMP #### [facility] [address] [place] [address] [address] Dalton Uribe Albumin/Globulin [Mass ratio] 1.1 {ratio} Normal [facility] Comment on above: Performed By: #### T SH, T4, CMP #### [facility] [address] [place] [address] [address] Dalton Uribe ALP [Catalytic activity/Vol] 88 U/L Normal 46-116 [facility] Comment on above: Performed By: #### T SH, T4, CMP #### [facility] [address] [address] [address] Dalton Uribe ALT [Catalytic activity/Vol] 74 U/L Critically high 16-63 [facility] Comment on above: Performed By: #### T SH, T4, CMP #### [facility] [address] [address] [address] Dalton Uribe Anion gap [Moles/Vol] 17.1 mmol/L Normal [facility] Comment on above: Performed By: #### T SH, T4, CMP #### [facility] [address] [address] [address] Dalton Uribe AST [Catalytic activity/Vol] 73 U/L Critically high 15-37 [facility] Comment on above: Performed By: #### T SH, T4, CMP #### [facility] [address] [address] [address] Dalton Uribe Bilirubin [Mass/Vol] 1.8 mg/dL Critically high 0.2-1.0 [facility] Comment on above: Performed By: #### T SH, T4, CMP #### [facility] [address] [address] [address] Dalton Uribe Calcium [Mass/Vol] 9.1 mg/dL Normal 8.5-10.1 [facility] Comment on above: Performed By: #### T SH, T4, CMP #### [facility] [address] [address] [address] Dalton Uribe Chloride [Moles/Vol] 95 mmol/L Critically low 98-107 [facility] Comment on above: Performed By: #### T SH, T4, CMP #### [facility] [address] [address] [address] Dalton Uribe CO2 [Moles/Vol] 26.5 mmol/L Normal 21.0-32.0 [facility] Comment on above: Performed By: #### T SH, T4, CMP #### [facility] [address] [place] [address] Dr. Dalton Uribe Creatinine [Mass/Vol] 0.88 mg/dL Normal 0.70-1.30 [facility] Comment on above: Performed By: #### T SH, T4, CMP #### [facility] [address] [place] [address] Dr. Dalton Uribe EGFR-AF SLOVAK >60 Normal >=60 [facility] Comment on above: Performed By: #### T SH, T4, CMP #### [facility] [address] [place] [address] Dr. Dalton Uribe EGFR-NON AF SLOVAK >60 Normal >=60 [facility] Comment on above: Performed By: #### T SH, T4, CMP #### [facility] [address] [place] [address] Dr. Dalton Uribe Globulin (S) [Mass/Vol] 3.8 g/dL Normal [facility] Comment on above: Performed By: #### T SH, T4, CMP #### [facility] [address] [place] [address] Dr. Dalton Uribe Glucose [Mass/Vol] 115 mg/dL Critically high 74-106 [facility] Comment on above: Performed By: #### T SH, T4, CMP #### [facility] [address] [place] [address] Dr. Dalton Uribe Potassium [Moles/Vol] 3.6 mmol/L Normal 3.5-5.1 [facility] Comment on above: Performed By: #### T SH, T4, CMP #### [facility] [address] [place] [address] Dr. Dalton Uribe Protein [Mass/Vol] 7.8 g/dL Normal 6.4-8.2 [facility] Comment on above: Performed By: #### T SH, T4, CMP #### [facility] [address] [place] [address] Dr. Dalton Uribe Sodium [Moles/Vol] 135 mmol/L Critically low 136-145 [facility] Comment on above: Performed By: #### T SH, T4, CMP #### [facility] [address] [place] [address] Dr. Dalton Uribe Urea nitrogen [Mass/Vol] 8.0 mg/dL Normal 7.0-18.0 [facility] Comment on above: Performed By: #### T SH, T4, CMP #### [facility] [address] [place] [address] Dr. Dalton Uribe Urea nitrogen/Creatinine [Mass ratio] 9.1 mg/mg Normal [facility] Comment on above: Performed By: #### T SH, T4, CMP #### [facility] [address] [place] [address] Dr. Dalton Uribe T4on 06-18-2021 T4 [Mass/Vol] 8.10 ug/dL Normal 4.50-12.10 [facility] Comment on above: Performed By: #### T SH, T4, CMP #### [facility] [address] [place] [address] Dr. Dalton Uribe TSHon 06-18-2021 TSH 1.856 uIU/mL Normal 0.358-3.74 0 [facility] Comment on above: Performed By: #### T SH, T4, CMP #### [facility] [address] [place], [place] [address] Dr. Dalton Uribe TSH RANGE SEE BELOW Normal [facility] Comment on above: Result Comment: <0.3 4 UIU/ml HYPERTHYROID 0.34-5.60 UIU/ml EUTHYROID >5.60 UIU/ml HYPOTHYROID Performed By: #### T SH, T4, CMP #### [facility] [address] [place], [place] [address] Dr. Dalton Uribe Vital Signs Date Time Vital Sign Value Performing Clinician Faci lity 08-29-2024 13:33-0400 Body mass index (BMI) [Ratio] 20.91 kg/m2 OSMIN Smith MD Work Phone: [facility] 08-29-2024 13:33-0400 Body temperature 98.01 [degF] OSMIN Smith MD Work Phone: [facility] 08-29-2024 13:33-0400 Body weight 62.6 kg OSMIN Smith MD Work Phone: [facility] 08-29-2024 13:33-0400 Diastolic blood pressure 81 mm[Hg] OSMIN Smith MD Work Phone: [facility] 08-29-2024 13:33-0400 Heart rate 94 /min OSMIN Smith MD Work Phone: [facility] 08-29-2024 13:33-0400 Respiratory rate 18 /min OSMIN Smith MD Work Phone: [facility] 08-29-2024 13:33-0400 SaO2% (BldA) [Mass fraction] 99 % OSMIN Smith MD Work Phone: [facility] 08-29-2024 13:33-0400 Systolic blood pressure 134 mm[Hg] OSMIN Smith MD Work Phone: [facility] 08-22-2024 11:12-0400 Body temperature 97.5 [degF] OSMIN Smith MD Work Phone: [facility] 08-22-2024 11:12-0400 Diastolic blood pressure 86 mm[Hg] OSMIN Smith MD Work Phone: [facility] 08-22-2024 11:12-0400 Heart rate 88 /min OSMIN Smith MD Work Phone: [facility] 08-22-2024 11:12-0400 Respiratory rate 16 /min OSMIN Smith MD Work Phone: [facility] 08-22-2024 11:12-0400 SaO2% (BldA) [Mass fraction] 100 % OSMIN Smith MD Work Phone: [facility] 08-22-2024 11:12-0400 Systolic blood pressure 134 mm[Hg] OSMIN Smith MD Work Phone: [facility] 07-27-2024 12:54-0400 Body mass index (BMI) [Ratio] 20.18 kg/m2 Don Mejia MD Work Phone: [facility] 07-27-2024 12:54-0400 Body temperature 97.9 [degF] Don Mejia MD Work Phone: [facility] 07-27-2024 12:54-0400 Body weight 60.4 kg Don Mejia MD Work Phone: [facility] 07-27-2024 12:54-0400 Diastolic blood pressure 76 mm[Hg] Don Mejia MD Work Phone: [facility] 07-27-2024 12:54-0400 Heart rate 98 /min Don Mejia MD Work Phone: [facility] 07-27-2024 12:54-0400 Respiratory rate 16 /min Don Mejia MD Work Phone: [facility] 07-27-2024 12:54-0400 SaO2% (BldA) [Mass fraction] 100 % Don Mejia MD Work Phone: [facility] 07-27-2024 12:54-0400 Systolic blood pressure 118 mm[Hg] Don Mejia MD Work Phone: [facility] 05-03-2024 11:33-0400 Body height 175.3 cm Kostas Morales [employer]GER [employer] Work Phone: [facility] 05-03-2024 11:33-0400 Body mass index (BMI) [Ratio] 20 kg/m2 Kostas Morales [employer] Work Phone: [facility] 05-03-2024 11:33-0400 Body weight 61.42 kg Kostas Morales [employer] Work Phone: [facility] 05-03-2024 11:33-0400 Diastolic blood pressure 82 mm[Hg] Kostas Morales MANAGER [employer] Work Phone: [facility] 05-03-2024 11:33-0400 Heart rate 107 /min Kostas Morales MANAGER [employer] Work Phone: [facility] 05-03-2024 11:33-0400 Respiratory rate 17 /min Kostas Ken [employer]GER [employer] Work Phone: [facility] 05-03-2024 11:33-0400 SaO2% (BldA) [Mass fraction] 95 % Kostas Morales MANAGER [employer] Work Phone: [facility] 05-03-2024 11:33-0400 Systolic blood pressure 126 mm[Hg] Kostas Morales MANAGER [employer] Work Phone: [facility] 04-26-2024 11:42-0400 Body mass index (BMI) [Ratio] 20.35 kg/m2 Don Mejia MD Work Phone: [facility] 04-26-2024 11:42-0400 Body temperature 96.69 [degF] Don Mejia MD Work Phone: [facility] 04-26-2024 11:42-0400 Body weight 60.9 kg Don Mejia MD Work Phone: [facility] 04-26-2024 11:42-0400 Diastolic blood pressure 77 mm[Hg] Don Mejia MD Work Phone: [facility] 04-26-2024 11:42-0400 Respiratory rate 18 /min Don Mejia MD Work Phone: [facility] 04-26-2024 11:42-0400 SaO2% (BldA) [Mass fraction] 97 % Don Mejia MD Work Phone: [facility] 04-26-2024 11:42-0400 Systolic blood pressure 117 mm[Hg] Don Mejia MD Work Phone: [facility] 04-06-2024 13:04-0500 Body mass index (BMI) [Ratio] 19.24 kg/m2 Don Mejia MD Work Phone: [facility] 04-06-2024 13:04-0500 Body temperature 96.91 [degF] Don Mejia MD Work Phone: [facility] 04-06-2024 13:04-0500 Body weight 57.6 kg Don Mejia MD Work Phone: [facility] 04-06-2024 13:04-0500 Diastolic blood pressure 76 mm[Hg] Don Mejia MD Work Phone: [facility] 04-06-2024 13:04-0500 Heart rate 91 /min Don Mejia MD Work Phone: [facility] 04-06-2024 13:04-0500 Respiratory rate 18 /min Don Mejia MD Work Phone: [facility] 04-06-2024 13:04-0500 SaO2% (BldA) [Mass fraction] 99 % Don Mejia MD Work Phone: [facility] 04-06-2024 13:04-0500 Systolic blood pressure 106 mm[Hg] Don Mejia MD Work Phone: [facility] 04-08-2023 10:28-0500 Body temperature 97.2 [degF] Don Mejia MD Work Phone: [facility] 04-08-2023 10:28-0500 Body weight 71.8 kg Don Mejia MD Work Phone: [facility] 04-08-2023 10:28-0500 Diastolic blood pressure 93 mm[Hg] Don Mejia MD Work Phone: [facility] 04-08-2023 10:28-0500 Heart rate 69 /min Don Mejia MD Work Phone: [facility] 04-08-2023 10:28-0500 Respiratory rate 18 /min Don Mejia MD Work Phone: [facility] 04-08-2023 10:28-0500 SaO2% (BldA) [Mass fraction] 99 % Don Mejia MD Work Phone: [facility] 04-08-2023 10:28-0500 Systolic blood pressure 164 mm[Hg] Don Mejia MD Work Phone: [facility] 10-14-2022 12:00-0400 Body height 173 cm [place] Work Phone: [facility] 10-14-2022 12:00-0400 Body weight 73.48 kg [place] Work Phone: [facility] 09-27-2022 09:00-0400 Body height 175.3 cm Don Mejia MD Work Phone: [facility] 09-27-2022 09:00-0400 Body temperature 97.39 [degF] Don Mejia MD Work Phone: [facility] 09-27-2022 09:00-0400 Body weight 74.21 kg Don Mejia MD Work Phone: [facility] 09-27-2022 09:00-0400 Diastolic blood pressure 118 mm[Hg] Don Mejia MD Work Phone: [facility] 09-27-2022 09:00-0400 Heart rate 78 /min Don Mejia MD Work Phone: [facility] 09-27-2022 09:00-0400 Respiratory rate 18 /min Don Mejia MD Work Phone: [facility] 09-27-2022 09:00-0400 SaO2% (BldA) [Mass fraction] 98 % Don Mejia MD Work Phone: [facility] 09-27-2022 09:00-0400 Systolic blood pressure 194 mm[Hg] Don Mejia MD Work Phone: [facility] Encounters Encounter Date Encounter Type Care Provider Facility Start: 10-01-2024 End: 10-01-2024 ambulatory DON MEJIA Facility:[facility] Start: 09-07-2024 End: 09-07-2024 ambulatory MAURISIO [facility] Start: 09-04-2024 End: 09-21-2024 Patient encounter procedure Don Mejia MD Work Phone: Radiation Oncology Start: 09-04-2024 End: 09-21-2024 Radiation Oncology Note Don Mejia MD Work Phone: Radiation Oncology Comment on above: Completion Note Start: 09-04-2024 End: 09-04-2024 ambulatory RUGEN MABALAY NAYLA Facility:[facility] Start: 09-03-2024 End: 09-03-2024 ambulatory RUGEN MABALAY NAYLA Facility:[facility] Start: 08-31-2024 End: 08-31-2024 ambulatory RUGEN MABALAY NAYLA Facility:[facility] Start: 08-30-2024 End: 08-30-2024 ambulatory RUGEN MABALAY NAYLA Facility:[facility] Start: 08-29-2024 End: 08-29-2024 ambulatory Cande SMITH Facility: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 Start: 08-28-2024 End: 08-28-2024 ambulatory RUGEN MABALAY NAYAL Facility:[facility] Start: 08-27-2024 End: 08-27-2024 ambulatory YADIRA WINSLOW Facility:[facility] Start: 08-24-2024 End: 08-24-2024 ambulatory YADIRA WINSLOW Facility:[facility] Start: 08-23-2024 End: 08-23-2024 ambulatory YADIRA WINSLOW Facility:[facility] Start: 08-22-2024 End: 08-22-2024 ambulatory Cande LUCIANO SARAH Facility:[facility] Start: 08-22-2024 End: 08-22-2024 ambulatory Cande LUCIANO ENGJNStephen Facility: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); 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) Start: 08-06-2024 End: 08-06-2024 Telephone encounter Don Mejia MD Work Phone: Radiation Oncology Comment on above: Patient Update; Appo intment Start: 07-30-2024 End: 07-30-2024 Telephone encounter Noms Provider Bradleyloandrae KISER Work Phone: [facility] Start: 07-27-2024 End: 07-31-2024 Telephone encounter Don Mejia MD Work Phone: Radiation Oncology Comment on above: Future Appointment Start: 07-27-2024 End: 07-27-2024 Patient encounter procedure Don Mejia MD Work Phone: Radiation Oncology Comment on above: 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); Neoplasm of lung; 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) Start: 07-27-2024 End: 07-27-2024 ambulatory Cathy Jovel RN Radiation Oncology Comment on above: Patient Education Start: 07-18-2024 End: 07-20-2024 Telephone encounter Don Mejia MD Work Phone: Radiation Oncology Comment on above: Appointment Start: 05-03-2024 End: 05-03-2024 Bamboo flowsheet Kostas Morales MANAGER [employer] Work Phone: [facility] Start: 05-03-2024 End: 05-03-2024 Bamboo flowsheet Kostas Morales MANAGER [employer] Work Phone: [facility] Start: 05-03-2024 End: 05-03-2024 Office outpatient visit 15 minutes Kostas Morales MANAGER [employer] Work Phone: [facility] Comment on above: Hypokalemia (Primary Dx); 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 Start: 04-19-2024 End: 04-19-2024 Subsequent hospital visit by physician Arrival Time Radiology Work Phone: Radiology Pet CT Comment on above: Malignant neoplasm o f upper lobe of left lung (HCC) [C34.12] Start: 04-18-2024 End: 04-18-[address] Work Phone: Nutrition Therapy Start: 04-18-2024 End: 04-18-[address] Marte RD Work Phone: Nutrition Therapy Comment on above: Nutrition Telephone Start: 04-09-2024 End: 04-09-2024 ambulatory [facility] Start: 04-06-2024 End: 04-09-2024 ambulatory DON ROBERTO Facility:[facility] Start: 04-06-2024 End: 04-09-2024 Patient encounter procedure Don Mejia MD Work Phone: Radiation Oncology Comment on above: Malignant neoplasm o f upper lobe of left lung (HCC) (Primary Dx); Secondary malignancy of left adrenal gland (HCC) Start: 04-04-2024 End: 04-18-2024 Telephone encounter Don Mejia MD Work Phone: Radiation Oncology Comment on above: Patient Update Start: 03-19-2024 Evaluation and management of inpatient [facility] Start: 03-16-2024 Evaluation and management of inpatient [facility]O [facility] Start: 03-15-2024 Evaluation and management of inpatient [facility]ARDO [facility] Start: 03-15-2024 Evaluation and management of inpatient [facility]ARDO [facility] Start: 03-14-2024 Evaluation and management of inpatient [facility]ARDO [facility] Start: 03-14-2024 Evaluation and management of inpatient [facility]ARDO [facility] Start: 03-13-2024 End: 03-21-2024 Evaluation and management of inpatient OLIVIA MAYER [facility] Start: 03-12-2024 End: 03-12-2024 ambulatory Jack Canchola [facility] Work Phone: Start: 03-12-2024 End: 03-12-2024 Departed Referred Jack Canchola DO [facility] Start: 08-18-2023 End: 08-18-2023 ambulatory KOSTAS MORALES Not Available Start: 06-16-2023 Telephone encounter Don Mejia MD Work Phone: Radiation Oncology Comment on above: Future Appointment Start: 04-08-2023 End: 04-08-2023 Patient encounter procedure Don Mejia MD Work Phone: Radiation Oncology Comment on above: Malignant neoplasm o f upper lobe of left lung (HCC) (Primary Dx) Start: 03-24-2023 Telephone encounter Don Mejia MD Work Phone: Radiation Oncology Comment on above: Patient Update (Post Radiation Treatment Nurse Call ) Start: 03-11-2023 Telephone encounter Don Mejia MD Work Phone: Radiation Oncology Comment on above: Orders Start: 03-07-2023 Patient encounter procedure Don Mejia MD Work Phone: [facility] Start: 03-07-2023 Radiation Oncology Note Don carter MD Work Phone: Radiation Oncology Comment on above: Completion Note Start: 02-11-2023 Patient encounter procedure Don Mejia MD Work Phone: [facility] Start: 02-11-2023 Radiation Oncology Note Don carter MD Work Phone: Radiation Oncology Comment on above: Treatment Planning Start: 02-11-2023 End: 02-11-2023 Subsequent hospital visit by physician Don Mejia MD Work Phone: Radiology [facility] Start: 01-24-2023 End: 01-24-2023 Subsequent hospital visit by physician Arrival Time Radiology Work Phone: Radiology Pet CT Comment on above: Malignant neoplasm o f upper lobe of left lung (HCC) [C34.12] Start: 01-13-2023 Telephone encounter Delfina koehler MD, PhD Work Phone: [facility] Comment on above: [facility] Start: 01-05-2023 Telephone encounter Don Mejia MD Work Phone: [facility] Comment on above: Appointment Confirma tion Start: 12-23-2022 End: 12-23-2022 ambulatory Delfina Blue MD, PhD Work Phone: [facility] Comment on above: Personal history of malignant neoplasm of bronchus and lung (Primary Dx) Start: 12-23-2022 End: 12-23-2022 Telemedicine consultation with patient Delfina Blue MD, PhD Work Phone: [facility] Start: 10-18-2022 Telephone encounter Don Mejia MD Work Phone: Radiation Oncology Comment on above: Future Appointment Start: 10-14-2022 End: 10-14-2022 ambulatory [facility] Pulmon[facility] Comment on above: Spirometry Start: 10-14-2022 End: 10-14-2022 Patient encounter procedure [facility] [place] Work Phone: [facility] Start: 09-27-2022 ambulatory Lili Martinez [employer] Radia tion Oncology Comment on above: Patient Education Start: 09-27-2022 Telephone encounter Don Mejia MD Work Phone: [facility] Comment on above: FYI-No Action Needed [...] Radiation Oncology Comment on above: Appointment Start: 08-26-2022 Telephone encounter Delfina koehler MD, PhD Work Phone: [facility] Comment on above: External Referrals/r esources; Consult Start: 05-26-2022 End: 05-27-[address] ANNE GUADALUPE Facility:[facility] Start: 04-13-2022 End: 04-14-2022 [facility] Start: 03-30-2022 End: 03-31-2022 ambulatory LAISHA Otto [facility] Facility:[facility] Start: 03-23-2022 End: 03-23-2022 ambulatory NICHOLE HERNANDES . Facility:[facility] Start: 01-19-[address] WADE JONES Facili ty:[facility] Start: 06-19-2021 End: 06-19-2021 ambulatory SEN PINEDA . Facility:[facility] Start: 06-18-2021 End: 06-19-[address] WADE JONES Facility:[facility] Procedures Date Procedure Procedure Detail Performing Clinician Start: 04-19-2024 Gluc bld gluc mntr d ev cleared fda spec home use [facility] Provider Start: 01-24-[address] atten uation [...] Treatment Date Care Activity Detail Author Start: 2033 RSV Vaccine (1 - 1-d ose 75+ series) RSV Vaccine (1 - 1-dose 75+ series) [facility] Start: 03-21-2027 Diabetes Screening Diabetes Screenin g [facility] Start: 03-16-2025 Screening for malign ant neoplasm of colon [facility] Start: 10-08-2024 Influenza vaccination C [facility] Start: 10-01-2024 End: 10-01-2024 Patient encounter procedure 10/01/2024 10:00 AM EDT Office Visit Radiation Oncology [address] [place] [address] Don Mejia MD [address] [place] [address] Final radiation follow up Radiation Oncology Comment on above: Final radiation foll ow up Start: 09-04-2024 End: 09-04-2024 Patient encounter procedure 09/04/2024 12:30 PM EDT Appointment Radiation Oncology [address] [place] [address] Chest, Adrenal, Pelvis Radiation Oncology Comment on above: Chest, Adrenal, Pelv is Start: 09-03-2024 End: 09-03-2024 Patient encounter procedure 09/03/2024 12:30 PM EDT Appointment Radiation Oncology [address] [place] [address] Chest, Adrenal, Pelvis Radiation Oncology Comment on above: Chest, Adrenal, Pelv is Start: 08-31-2024 End: 08-31-2024 Patient encounter procedure 08/31/2024 12:30 PM EDT Appointment Radiation Oncology [address] [place] [address] Chest, Adrenal, Pelvis Radiation Oncology Comment on above: Chest, Adrenal, Pelv is Start: 08-30-2024 End: 08-30-2024 Patient encounter procedure 08/30/2024 12:30 PM EDT Appointment Radiation Oncology [address] [place] [address] Chest, Adrenal, Pelvis Radiation Oncology Comment on above: Chest, Adrenal, Pelv is Start: 08-29-2024 End: 08-29-2024 Patient encounter procedure Radiation Oncology Comment on above: Chest, Adrenal, Pelv is Location: [facility] Start: 08-28-2024 End: 08-28-2024 Patient encounter procedure 08/28/2024 12:30 PM EDT Appointment Radiation Oncology [address] [place] [address] Chest, Adrenal, Pelvis Radiation Oncology Comment on above: Chest, Adrenal, Pelv is Start: 08-27-2024 End: 08-27-2024 Patient encounter procedure 08/27/2024 12:45 PM EDT Appointment Radiation Oncology [address] [place] [address] [place] [address] Chest, Adrenal, Pelvis Radiation Oncology Comment on above: Chest, Adrenal, Pelv is Start: 08-24-2024 End: 08-24-2024 Patient encounter procedure 08/24/2024 11:15 AM EDT Appointment Radiation Oncology [address] [place] [address] [place] [address] Chest, Adrenal, Pelvis Radiation Oncology Comment on above: Chest, Adrenal, Pelv is Start: 08-23-2024 End: 08-23-2024 Patient encounter procedure 08/23/2024 2:00 PM EDT Appointment Radiation Oncology [address] [place] [address] [place] [address] Chest, Adrenal, Pelvis Radiation Oncology Comment on above: Chest, Adrenal, Pelv is Start: 08-22-2024 End: 08-22-2024 Patient encounter procedure Radiation Oncology Comment on above: NEW START CHEST, ADR ENAL, PELVIS NEW START CHEST, ADR ENAL, PELVIS - WOULD LIKE MIDDAY Start: 08-07-2024 End: 08-07-2024 Patient encounter procedure 08/07/2024 11:00 AM EDT Office Visit Radiation Oncology [address] [place] [address] [place] [address] Don Mejia MD [address] [place] [address] [place] [address] SIM- 3 ISO ADRENAL, PELVIS, CHEST- IV AND ORAL- CONSENT DONE Radiation Oncology Comment on above: SIM- 3 ISO ADRENAL, PELVIS, CHEST- IV AND ORAL- CONSENT DONE Start: 08-07-2024 End: 08-07-2024 Nursing evaluation of patient and report 08/07/2024 10:45 AM EDT Nurse Visit Radiation Oncology [address] [place] [address] [place] [address] Pravin, Nurse Radt [address] [place] [address] [place] [address] IV start Radiation Oncology Comment on above: IV start Start: 07-27-2024 End: 07-27-2024 Patient encounter procedure 07/27/2024 1:00 PM EDT Office Visit Radiation Oncology [address] [place] [address] Don Mejia MD [address] [place] [address] metastatic lung cancer Radiation Oncology Comment on above: metastatic lung canc er Start: 05-03-2024 End: 05-03-2025 CBC panel - Blood by Automated count CBC Lab Routine 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 Expected: 05/03/2024 (Approximate), Expires: 05/03/2025 [facility] Work Phone: Comment on above: Expected: 05/03/2024 (Approximate), Expires: 05/03/2025 Start: 05-03-2024 End: 05-03-2025 Comprehensive metabolic 2000 panel - Serum or Plasma Comprehensive metabolic panel Lab Routine Hypokalemia Expected: 05/03/2024 (Approximate), Expires: 05/03/2025 [facility] Comment on above: Expected: 05/03/2024 (Approximate), Expires: 05/03/2025 Start: 05-03-2024 End: 05-03-2025 Magnesium [Mass/volume] in Serum or Plasma Magnesium Lab Routine Hypomagnesemia Expected: 05/03/2024 (Approximate), Expires: 05/03/2025 [facility] Comment on above: Expected: 05/03/2024 (Approximate), Expires: 05/03/2025 Start: 05-03-2024 End: 05-03-2025 TSH W/REFLEX TO FT4 TSH W/REFLEX TO FT4 Lab Routine Thyroid disorder screening Expected: 05/03/2024 (Approximate), Expires: 05/03/2025 [facility] Comment on above: Expected: 05/03/2024 (Approximate), Expires: 05/03/2025 Start: 04-26-2024 End: 04-26-2024 Patient encounter procedure 04/26/2024 11:30 AM EDT Office Visit Radiation Oncology [address] [place] [address] Don Mejia MD [address] [place] [address] Follow up Radiation Oncology Comment on above: Follow up Start: 04-19-2024 End: 04-19-2024 Patient encounter procedure 04/19/2024 12:45 PM EDT Appointment Radiology Pet CT [address] [place] [address] Comment on above: PET Start: 02-08-2024 Advance Directive Discussion Advance Directive Discussion [facility] Start: 10-09-2023 Covid-19 Vaccine () Covid-19 Vaccine ( season) [facility] Start: 10-09-2023 Covid-19 Vaccine () Covid-19 Vaccine () [facility] Start: 10-09-2023 Influenza vaccination C [facility] Start: 07-22-2023 Advance Directive Discussion Advance Directive Discussion [facility] Start: 07-11-2023 End: 07-11-2023 Patient encounter procedure 07/11/2023 2:00 PM EDT Office Visit Radiation Oncology [address] [place] [address] Don Mejia MD [address] [place] [address] Radiation Oncology Comment on above: Followup after ct Start: 07-09-2023 Medicare Annual Wellness Visit Medicare Annual Wellness Visit [facility] Start: 07-05-2023 End: 07-05-2023 Patient encounter procedure 07/05/2023 9:15 AM EDT Appointment Radiology Pet CT [address] [place] [address] CT [address] Pet CT Comment on above: CT chest Start: 06-09-2023 End: 09-08-2023 CREATININE BLD CREATININE BLD Lab Routine Neoplasm of lung Expected: 06/09/2023, Expires: 09/08/[address] [facility] Work Phone: Comment on above: Expected: 06/09/2023 , Expires: 09/08/2023 Start: 06-09-2023 End: 04-09-2024 CT CHEST W IVCON CT CHEST W IVCON Radiology Routine Neoplasm of lung Expected: 06/09/2023, Expires: 04/09/[address] [facility] Work Phone: Comment on above: Expected: 06/09/2023 , Expires: 04/09/2024 Start: 02-07-2023 Behavioral Health Screening Behavioral Health Screening [facility] Start: 02-07-[address] [facility] [address] [facility] Start: 10-08-2022 Covid-19 Vaccine () Covid-19 Vaccine () [facility] Start: 10-08-2022 Influenza vaccination C [facility] Start: 02-07-2022 DEPRESSION ASSESSMENT DEPRESSION ASS ESSMENT [facility] Start: 12-22-2020 COVID-19 VACCINE (3 - Pfizer series) COVID-19 VACCINE (3 - Pfizer series) [facility] Start: 2018 RSV Vaccine (1 - 1-d ose 60+ series) RSV Vaccine (1 - 1-dose 60+ series) [facility] Start: 2013 PROSTATE CANCER SCREENING DISCUSSION PROSTATE CANCER SCREENING DISCUSSION [facility] Start: 2013 Prostate specific antigen measurement Prostate Cancer Screening Discussion [facility] Start: 2008 SHINGRIX VACCINE (1 of 2) SHINGRIX VACCINE (1 of 2) [facility] Start: 07-22-2003 COLOGUARD (FIT-DNA) COLOGUARD (FIT-D NA) [facility] Start: 07-22-2003 Colonoscopy COLONOSCOPY [facility] Start: 07-22-2003 COLORECTAL CANCER SCREENING COLORECTAL CANCER SCREENING [facility] Start: 07-22-[address] COLONOGRAPHY [facility] Start: 07-22-2003 DIABETES SCREEN DIABETES SCREEN [facility] Start: 07-22-2003 Diabetes Screening Diabetes Screenin g [facility] Start: 07-22-2003 FECAL OCCULT BLOOD FECAL OCCULT BLOO D [facility] Start: 07-22-2003 Prostate specific antigen measurement Prostate Cancer Screening Discussion [facility] Start: 07-22-2003 Screening for malign ant neoplasm of colon [facility] Start: 07-22-2003 SIGMOIDOSCOPY SIGMOIDOSCOPY [facility] Start: 1993 Lipid 1996 panel - Serum or Plasma Lipid Screening [facility] Start: 1993 Lipid panel Lipid Screening [facility] Start: 1993 LIPID SCREEN LIPID SCREEN [facility] Start: 1977 Pneumococcal Vaccine : 50+ (1 of 2 - PCV) Pneumococcal Vaccine: 50+ (1 of 2 - PCV) [facility] Start: 1977 Pneumococcal Vaccine : 65+ Years (1 of 2 - PCV) Pneumococcal Vaccine: 65+ Years (1 of 2 - PCV) [facility] Start: 1977 Urine microalbumin profile [facility] Start: 1976 Anxiety Screening Anxiety Screening [facility] Start: 1976 Depression Screening Depression Scre [facility] Start: 1976 HEPATITIS C SCREENING HEPATITIS C [facility] Start: 1976 Hepatitis C screening Hepatitis C [facility] Start: 1976 HIV SCREENING HIV SCREENING [facility] Start: 1976 HIV screening HIV Screening [facility] Start: 1964 PNEUMOCOCCAL (1 - PCV) PNEUMOCOCCAL (1 - PCV) [facility] Start: 1964 Pneumococcal vaccination [facility] Start: 1964 Pneumococcal Vaccine : 65+ (1 of 2 - PCV) Pneumococcal Vaccine: 65+ (1 of 2 - PCV) [facility] Start: 1964 Pneumococcal Vaccine : 65+ Years (1 of 2 - PCV) Pneumococcal Vaccine: 65+ Years (1 of 2 - PCV) [facility] Start: 01-20-1959 COVID-19 VACCINE (#1) COVID-19 VACCI NE (#1) [facility] Start: 1958 Abdominal aortic aneurysm screening Abdominal Aortic Aneurysm Screening [facility] Start: 1958 Medicare Annual Wellness (AWV) Medicare Annual Wellness (AWV) [facility] Start: 1958 Screening for malign ant neoplasm of colon [facility] End: 10-09-2023 LUNG DIFFUSION CAPACITY (DLCO) LUNG DIFFUSION CAPACITY (DLCO) PFT Routine Malignant neoplasm of left lung, unspecified part of lung (HCC) 1 Occurrences starting 09/09/2022 until 10/09/[address] [facility] Work Phone: Comment on above: 1 Occurrences starti ng 09/09/2022 until 10/09/2023 LUNG DIFFUSION CAPAC ITY (DLCO) LUNG DIFFUSION CAPACITY (DLCO) PFT Routine Malignant neoplasm of left lung, unspecified part of lung (HCC) 10/14/2022 12:37 PM EDT [facility] Work Phone: OUTSIDE SURG PATH SL GORDO REVIEW OUTSIDE SURG PATH SLIDE REVIEW Lab Routine 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) Ordered: 04/04/[address] [facility] Work Phone: Comment on above: Ordered: 04/04/2024 PET+CT Guidance for localization of tumor of Skull base to mid-thigh-- W [id number] IV NM PET/CT SKULL-THIGH SUBSEQUENT Radiology Routine 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) Left adrenal mass (HCC) 04/19/2024 2:44 PM EDT [facility] Work Phone: End: 10-09-2023 SIX MINUTE WALK SIX MINUTE WALK PFT Routine Malignant neoplasm of left lung, unspecified part of lung (HCC) 1 Occurrences starting 09/09/2022 until 10/09/[address] [facility] Work Phone: Comment on above: 1 Occurrences starti ng 09/09/2022 until 10/09/2023 End: 10-09-2023 SPIROMETRY BASELINE ONLY SPIROMETRY BASELINE ONLY PFT Routine Malignant neoplasm of left lung, unspecified part of lung (HCC) 1 Occurrences starting 09/09/2022 until 10/09/[address] [facility] Work Phone: Comment on above: 1 Occurrences starti ng 09/09/2022 until 10/09/2023 SPIROMETRY BASELINE ONLY SPIROMETRY BASELINE ONLY PFT Routine Malignant neoplasm of left lung, unspecified part of lung (HCC) 10/14/2022 12:37 PM EDT [facility] Work Phone: [facility] Payers Date Payer Category Payer Medicare [id number] 2023 Medicare [id number] 2023 Unknown [id number] 2023 Private Health Insurance [id number] 2023 Unknown [id number] 2022 Unknown [id number] 1959 Self-pay 1959 Unknown [id number] 1958 Unknown [id number] 1958 Unknown [id number] 1958 Unknown [id number] 1958 Unknown [id number] 1958 Unknown [id number] 1958 Unknown [id number] 1958 Unknown [id number] 1958 Unknown [id number] 1958 Unknown [id number] Unknown [employer] JOSE [id number] Unknown [id number] Social History Date Type Detail Facility [facility] smoking consumption unknown [facility] Start: 1960 Sex Assigned At Not on file C [facility] Start: 09-09-2022 End: 04-18-2024 Gender identity Not on file [facility] Start: 09-09-2022 End: 04-18-2024 History of Social function [facility] Start: 08-24-2022 National Score (1-100), lower number is lower risk 59 [facility] Start: 09-27-2022 End: 08-22-2024 Tobacco smoking status NCIS Smokes tobacco daily [facility] Start: 02-08-1976 History of tobacco use Cigarette Smo ker [facility] Start: 09-27-2022 End: 08-22-2024 Tobacco use and exposure Smokeless tobacco non-user [facility] Start: 09-27-2022 End: 08-29-2024 Alcohol intake Current drinker of alcohol (finding) [facility] Start: 09-27-2022 Alcohol Comment socially [facility] Start: 05-22-2019 [facility] Start: 03-14-2024 Sex Male (finding) [facility] Start: 1960 Sex Assigned At Male F [facility] Start: 05-03-2024 Alcoholic beverage intake Ex-drinker (finding) [facility] Clinical Notes 03-23-2022 to 09-07-2024 Don Mejia MD - 09/04/2024 12:00 AM Cande Juares MD - 08/29/2024 3:43 PM Cande Juares MD - 08/22/2024 12:35 PM Don Howard MD - 08/07/2024 12:00 AM EDTPatient Instructions Note Date & Type Note Facility 09-07-2024 Note SUBJECTIVE Reason for Visit: Jaret Grajeda is a 64 y.o. year old male patient being seen for follow-up visit. HPI: Jaret Grajeda is a 64 y.o. year old male with significant medical history of chronic congestive heart failure, hypertension, hyperlipidemia, tobacco abuse, alcohol abuse, left upper lobe lung cancer status postradiation, chronic disease anemia Patient was admitted recently to [facility] with severe sepsis and hypothermia, he was found left pulmonary embolism, and left lower lobe pneumonia, and UTI. Also he was found to have a new adrenal mass measuring 6.1 x 4.2 cm. He was transferred to [facility] on 03/13/2024. He was discharged on 03/21/2024. He had workup for possible GI bleed and GI evaluation was negative. He had a biopsy of the adrenal mass and it turned out to be a cancer. He had bone marrow biopsy for anemia. 09/07/2024 office visit: Patient is seen evaluated in the office today for follow-up visit. He reports doing well overall. His endorses stable SAAVEDRA; reports being able to walk about 50-60 feet with his walker before becoming short of breath. Otherwise, he has no complaints. He denies chest pain, lightness or dizziness, palpitations, or lower extreme edema. 04/09/2024 office visit (Dr. Collado): Patient is a relatively active he walks and he does ordinary daily activities. He admits mild exertional dyspnea which not changed from his baseline. Denies orthopnea or paroxysmal nocturnal dyspnea. He denies chest pain at rest or with exertion. He wakes up during the night because of the cough. He denies legs edema or discomfort on exertion. He denies palpitation or dizziness or syncope He is longtime smoker at least 1 to 2 packs a day for 40 years and he is down to half pack per day now. Also he is a longtime alcohol drinker is 4-5 beers a day for more than 40 years however he quit few months ago. He denies illicit drugs. Medical History[1] Surgical History[2] Problem List[3] Family history is unknown by patient. Social History[4] OBJECTIVE Visit Vitals BP 110/84 (BP Location: Left arm, Patient Position: Sitting, BP Cuff Size: Adult) Pulse 88 Resp 12 Ht 1.753 m (5' 9 ) Wt 60.1 kg (132 lb 6.4 oz) SpO2 99% BMI 19.55 kg/m??? Smoking Status Every Day BSA 1.71 m??? Physical Exam Constitutional: General Appearance: well-developed, appears stated age. Level of Distress: no acute distress. Neck: Jugular Veins: normal jugular venous pressure. Lungs: Auscultation: no rales or rhonchi and normal breath sounds. Cardiovascular: Rate And Rhythm: regular Heart Sounds: normal S1 and s2; Systolic Murmur: not heard. Diastolic Murmur: not heard. Extremities: no edema Peripheral Pulses: Pulses: full and equal in all extremities except if noted. Abdomen: Inspection and Palpation: non distended or tender and soft. Musculoskeletal: Inspection: no joint tenderness or swelling. Neurologic: Gait: normal gait. Psychiatric: Mental Status: alert and normal affect. Skin: Inspection and Palpation: warm and dry. Allergies: Allergies[5] Outpatient Medications: Current Outpatient Medications Medication Instructions albuterol 90 mcg/actuation inhaler 2 puffs as needed for SOB Inhalation Q4H for 30 days amLODIPine (NORVASC) 5 mg, oral, Daily buPROPion XL (WELLBUTRIN XL) 150 mg, Daily calcium carbonate 600 mg, 3 times daily before meals Klor-Con M10 10 mEq ER tablet 10 mEq, 3 times daily magnesium oxide (MAG-OX) 400 mg, 3 times daily metoprolol succinate XL (TOPROL-XL) 50 mg, Daily nicotine (Nicoderm CQ) 14 mg/24 hr patch 1 patch, transdermal, Daily PRN omeprazole (PRILOSEC) 20 mg, Daily before breakfast rosuvastatin (CRESTOR) 20 mg, oral, Nightly spironolactone (ALDACTONE) 12.5 mg, oral, Daily warfarin (Coumadin) 5 mg tablet 5mg by mouth once daily. Recent Labs: No results displayed because visit has over 200 results. Most recent labs reviewed, 08/09/2024: Sodium 128, potassium 5.3, BUN 17, creatinine 1.12, EGFR greater than 60, glucose 99, calcium 9.5, magnesium 1.9, albumin 3.3, TSH 2.667 Labs 07/17/2024 ([facility]): Sodium 129, potassium 4.6, glucose 101, BUN 25, creatinine 1.02, EGFR greater than 60, calcium 9.8, magnesium 1.7, AST 28, ALT 29, albumin 3.1, TSH 1.725 I have personally reviewed and anaylzed the following laboratory results above. These findings have been analyzed in the context of the patient's clinical presentation. Cardiovascular Diagnostic Studies: EKG 03/13/2024: Showed normal sinus rhythm, heart rate 76 bpm prolonged QT. Abnormal EKG Echo 03/14/2024: Left Ventricle: The left ventricle is normal size. Global left ventricular systolic function is normal. The EF is 65 % visually. Left ventricular wall thickness is increased. No regional wall motion abnormality. Right Ventricle: The right ventricle is normal in size. Normal right ventricular systolic function. Doppler studies suggest normal right (more content not included)... [facility] 09-04-2024 History of Present illness Narrative [facility] Radiation Oncology Department RADIATION ONCOLOGY - COMPLETION NOTE PATIENT: JADA GRAJEDAOB: 1960 DATES OF TREATMENT: 08/22/2024 to 09/04/2024 DIAGNOSIS: Initial Stage IB, [id number], non-small cell lung cancer (adenocarcinoma) arising from the left upper lobe of the lung status post definitive SBRT now with with oligometastatic disease progression on systemic therapy under the care of Dr. Garber. AREA TREATED: Left Hilum Mediastinum DELIVERED DOSE: 3,000 cGy in 10 fractions, 2 Jesus, IMRT, 6MV with daily CBCT AREA TREATED: Left Adrenal Mass DELIVERED DOSE: 3,000 cGy in 10 fractions, 2 Jesus, IMRT, 10MV with daily CBCT AREA TREATED: Right Pelvic Mass DELIVERED DOSE: 3,000 cGy in 10 fractions, 2 Jesus, IMRT, 10MV with daily CBCT ELAPSED TIME: 13 days. CLINICAL SUMMARY: The patient tolerated course of palliative radiation therapy to multiple sites well with no significant issues. The patient was able to complete treatment as intended without break interruption or modification of prescription plan. The patient will be evaluated in 3-4 weeks for postradiation follow-up and will follow with Dr. Garber as scheduled for continued evaluation and systemic therapy recommendations. . Staff Physician Don Mejia M.D. / CHAD 8/14/53657:43 AM Electronically Signed cc: Jennifer Garber MD ([place]) Yadira Winslow MD (PCP) documented in this encounter [facility] 09-04-2024 Note HNO ID: [id number] Author: DON MEJIA MD Service: ? Author Type: Physician Type: Progress Notes Filed: 09/20/2024 04:43 Note Text: [facility] Radiation Oncology Department RADIATION ONCOLOGY - COMPLETION NOTE PATIENT: JADA GRAJEDAOB: 1960 DATES OF TREATMENT: 08/22/2024 to 09/04/2024 DIAGNOSIS: Initial Stage IB, [id number], non-small cell lung cancer (adenocarcinoma) arising from the left upper lobe of the lung status post definitive SBRT now with with oligometastatic disease progression on systemic therapy under the care of Dr. Garber. AREA TREATED: Left Hilum Mediastinum DELIVERED DOSE: 3,000 cGy in 10 fractions, 2 Jesus, IMRT, 6MV with daily CBCT AREA TREATED: Left Adrenal Mass DELIVERED DOSE: 3,000 cGy in 10 fractions, 2 Jesus, IMRT, 10MV with daily CBCT AREA TREATED: Right Pelvic Mass DELIVERED DOSE: 3,000 cGy in 10 fractions, 2 Jesus, IMRT, 10MV with daily CBCT ELAPSED TIME: 13 days. CLINICAL SUMMARY: The patient tolerated course of palliative radiation therapy to multiple sites well with no significant issues. The patient was able to complete treatment as intended without break interruption or modification of prescription plan. The patient will be evaluated in 3-4 weeks for postradiation follow-up and will follow with Dr. Garber as scheduled for continued evaluation and systemic therapy recommendations. . Staff Physician Don Mejia M.D. / WST 54:43 AM Electronically Signed cc: Jennifer Garber MD (Alberto) Yadira Winslow MD (PCP) [facility] 08-29-2024 Note HNO ID: [id number] Author: Cande SMITH MD Service: ? Author Type: Physician Type: Progress Notes Filed: 08/29/2024 15:45 Note Text: Radiation Oncology - On Treatment Review (OTR) Note PATIENT NAME: Jaret Grajeda PATIENT DIAGNOSIS: Stage IB, [id number], non-small cell lung cancer (adenocarcinoma) arising from [...] 134/81 Pulse: 94 Resp: 18 Temp: 36.7 ?C (98 ?F) SpO2: 99% Weight: 62.6 kg (138 lb 0.1 oz) KPS: 90 General Appearance: Alert and oriented. No acute distress. Radiation dermatitis: No IMAGING/LAB RESULTS: None Treatment chart checked: Yes Patient treatment site reviewed and verified:Yes Port films reviewed and current:Yes Medications started: None ASSESSMENT/PLAN: Patient doing well. Chart and imaging reviewed. Continue radiation as outlined. Cande Smith MD [facility] 08-29-2024 History of Present illness Narrative Radiation Oncology - On Treatment Review (OTR) Note PATIENT NAME: Jaret Grajeda PATIENT DIAGNOSIS: Stage IB, [id number], non-small cell lung cancer (adenocarcinoma) arising from [...] 134/81 Pulse: 94 Resp: 18 Temp: 36.7 C (98 F) SpO2: 99% Weight: 62.6 kg (138 lb 0.1 oz) KPS: 90 General Appearance: Alert and oriented. No acute distress. Radiation dermatitis: No IMAGING/LAB RESULTS: None Treatment chart checked: Yes Patient treatment site reviewed and verified:Yes Port films reviewed and current:Yes Medications started: None ASSESSMENT/PLAN: Patient doing well. Chart and imaging reviewed. Continue radiation as outlined. Cande Smith MD documented in this encounter [facility] 08-22-2024 Note HNO ID: [id number] Author: Cande SMITH MD Service: ? Author Type: Physician Type: Progress Notes Filed: 08/22/2024 13:49 Note Text: Radiation Oncology - On Treatment Review (OTR) Note PATIENT NAME: Jaret Grajeda PATIENT DIAGNOSIS: Stage IB, [id number], non-small cell lung cancer (adenocarcinoma) arising from the left upper lobe of the lung with recurrence of metastatic disease. COURSE: palliative AREA TREATED: Left Hilar Lung CURRENT DOSE: 300 cGy in 1 fx PLANNED DOSE: 3000 cGy in 10 fx AREA TREATED: Left Adrenal CURRENT DOSE: 300 cGy in 1 fx PLANNED DOSE: 3000 cGy in 10 fx AREA TREATED: Right Pelvic Mass CURRENT DOSE: 300 cGy in 1 fx PLANNED DOSE: 3000 cGy in 10 fx SUBJECTIVE: No new issues, here to start radiation. EXAM: 08/22/24 1112 BP: 134/86 BP Site: Left Arm BP Position: Sitting BP Cuff Size: Regular Adult Pulse: 88 Resp: 16 Temp: 36.4 ?C (97.5 ?F) TempSrc: Temporal SpO2: 100% KPS: 90 General Appearance: Alert and oriented. No acute distress. Radiation dermatitis: No IMAGING/LAB RESULTS: None Treatment chart checked: Yes Patient treatment site reviewed and verified:Yes Port films reviewed and current:Yes Medications started: None ASSESSMENT/PLAN: Patient starting radiation today. Plan of care and expectations again reviewed. Plan, MU calculations and qa report reviewed for each treatment site. Initial imaging including cone beam ct and verification reviewed and approved for each treated site. First treatment given. Continue radiation as prescribed. Cande Smith MD [facility] 08-22-2024 History of Present illness Narrative Radiation Oncology - On Treatment Review (OTR) Note PATIENT NAME: Jaret Grajeda PATIENT DIAGNOSIS: Stage IB, [id number], non-small cell lung cancer (adenocarcinoma) arising from the left upper lobe of the lung with recurrence of metastatic disease. COURSE: palliative AREA TREATED: Left Hilar Lung CURRENT DOSE: 300 cGy in 1 fx PLANNED DOSE: 3000 cGy in 10 fx AREA TREATED: Left Adrenal CURRENT DOSE: 300 cGy in 1 fx PLANNED DOSE: 3000 cGy in 10 fx AREA TREATED: Right Pelvic Mass CURRENT DOSE: 300 cGy in 1 fx PLANNED DOSE: 3000 cGy in 10 fx SUBJECTIVE: No new issues, here to start radiation. EXAM: 08/22/24 1112 BP: 134/86 BP Site: Left Arm BP Position: Sitting BP Cuff Size: Regular Adult Pulse: 88 Resp: 16 Temp: 36.4 C (97.5 F) TempSrc: Temporal SpO2: 100% KPS: 90 General Appearance: Alert and oriented. No acute distress. Radiation dermatitis: No IMAGING/LAB RESULTS: None Treatment chart checked: Yes Patient treatment site reviewed and verified:Yes Port films reviewed and current:Yes Medications started: None ASSESSMENT/PLAN: Patient starting radiation today. Plan of care and expectations again reviewed. Plan, MU calculations and qa report reviewed for each treatment site. Initial imaging including cone beam ct and verification reviewed and approved for each treated site. First treatment given. Continue radiation as prescribed. Cande Smith MD documented in this encounter [facility] 08-07-2024 History of Present illness Narrative JARET GRAJEDA [id number] 08/07/2024 [facility] Radiation Oncology Department SIMULATION NOTE DATE OF SIMULATION: 08/07/2024 THERAPIST: Mouna Yeboah MACHINE: [employer] DIAGNOSIS: Malignant neoplasm of upper lobe, left bronchus or lungC34.12 AREA: CHEST, ADRENAL, PELVIS CONTRAST: IV Oral Consent in Epic: Yes PT DRANK 50CC MIXTURE OF 25CC OMNIPAQUE 300 DILUTED IN 450CC WATER PT INJECTED WITH 100CC OMNIPAQUE 300 VIA THE LT AC PATIENT POSITION: Supine. FIXATION DEVICE: In order to achieve accurate and reproducible treatments, the patient is immobilized with ORFIT AIO A time-out was conducted and recorded by the therapist. CT scan was completed for target localization and planning. Field arrangement will be determined after plan has been completed. The patient is scheduled for a verification simulation on the treatment machine to ensure proper set-up and field arrangement is correct prior to the first treatment of primary and boost jesus if applicable. Patient education will be completed per nursing. Electronically Signed Don Mejia M.D. / NRS 53:56 AM documented in this encounter [facility] 08-07-2024 History of Present illness Narrative JARET GRAJEDA [id number] 08/07/2024 [facility] [place] [facility] - Department of Radiation Oncology Treatment Planning Note For reasons stated in the consult note, Jaret Grajeda is a candidate for radiation therapy. Based on review and interpretation of the relevant diagnostic studies together with the exam findings, Jaret Grajeda was simulated on 08/07/2024 at which time the target volume and/or requisite jesus were delineated, as indicated in the simulation note, to be treated according to the prescription. After reviewing the treatment plan with dosimetry using the fused PET, the plan was approved to deliver the prescribed course of radiation to the target area to allow for the best isodose distribution, treating to the 81.8%/89.7%/92.0% isodose line with 6 & 10 MV and 6 ejsus. Custom MLCs for IMRT were the treatment devices used to shape/modify the beams. Special consideration to these and other structures was given in light of the potential for increased toxicities re-treatment of a previously irradiated site andtreatment of multiple sites concurrently. IMRT planning was used because it best met the dose/volume constraints for the organs at risk for this patient, better than what could be achieved using conventional or 3D planning. The specific dose requirements for the PTV, organs at risk and dose-volume histograms are contained in this treatment plan and/or elsewhere in the medical record. A completed summary of this plan dated 08/21/2024 incorporated herein by reference includes dose, beam arrangements, energy, blocking, isodose distribution, and/or ports and DVH. Electronically Signed Luciano Smith M.D. 2:11 PM documented in this encounter [facility] 08-07-2024 Note HNO ID: [id number] Author: DON MEJIA MD Service: ? Author Type: Physician Type: Progress Notes Filed: 08/09/2024 03:56 Note Text: JARET GRAJEDA [id number] 08/07/2024 [facility] Radiation Oncology Department SIMULATION NOTE DATE OF SIMULATION: 08/07/2024 THERAPIST: Mouna Yeboah MACHINE: [employer] DIAGNOSIS: Malignant neoplasm of upper lobe, left bronchus or lungC34.12 AREA: CHEST, ADRENAL, PELVIS CONTRAST: IV Oral Consent in Epic: Yes PT DRANK 50CC MIXTURE OF 25CC OMNIPAQUE 300 DILUTED IN 450CC WATER PT INJECTED WITH 100CC OMNIPAQUE 300 VIA THE LT AC PATIENT POSITION: Supine. FIXATION DEVICE: In order to achieve accurate and reproducible treatments, the patient is immobilized with ORFIT AIO A time-out was conducted and recorded by the therapist. CT scan was completed for target localization and planning. Field arrangement will be determined after plan has been completed. The patient is scheduled for a verification simulation on the treatment machine to ensure proper set-up and field arrangement is correct prior to the first treatment of primary and boost jesus if applicable. Patient education will be completed per nursing. Electronically Signed Don Mejia M.D. / NRS 53:56 AM [facility] 08-07-2024 Note HNO ID: [id number] Author: Cande SMITH MD Service: ? Author Type: Physician Type: Progress Notes Filed: 08/21/2024 12:11 Note Text: NICCIJARET [id number] 08/07/2024 [facility] [place] - Department of Radiation Oncology Treatment Planning Note For reasons stated in the consult note, Jaret Grajeda is a candidate for radiation therapy. Based on review and interpretation of the relevant diagnostic studies together with the exam findings, Jaret Grajeda was simulated on 08/07/2024 at which time the target volume and/or requisite jesus were delineated, as indicated in the simulation note, to be treated according to the prescription. After reviewing the treatment plan with dosimetry using the fused PET, the plan was approved to deliver the prescribed course of radiation to the target area to allow for the best isodose distribution, treating to the 81.8%/89.7%/92.0% isodose line with 6 AND 10 MV and 6 jesus. Custom MLCs for IMRT were the treatment devices used to shape/modify the beams. Special consideration to these and other structures was given in light of the potential for increased toxicities re-treatment of a previously irradiated site andtreatment of multiple sites concurrently. IMRT planning was used because it best met the dose/volume constraints for the organs at risk for this patient, better than what could be achieved using conventional or 3D planning. The specific dose requirements for the PTV, organs at risk and dose-volume histograms are contained in this treatment plan and/or elsewhere in the medical record. A completed summary of this plan dated 08/21/2024 incorporated herein by reference includes dose, beam arrangements, energy, blocking, isodose distribution, and/or ports and DVH. Electronically Signed Luciano Smith M.D. 2:11 PM [facility] 08-06-2024 Telephone encounter Note Erick with Dr. Garber's office called requesting Dr. Mejia's most recent office note. He also said Bakari is scheduled for Keytruda tomorrow. Bakari called as well stating he is scheduled for both SIM with Dr. Mejia and Keytruda at [facility] tomorrow. He states he is not doing both and would like to reschedule one or the other. I called and spoke with Erick at Dr. Garber's office and he will send a message to Dr. Garber asking when to reschedule Bakari's follow up and Keytruda. Bakari notified of the above and to keep his SIM appt 08/07/24 at 1045. He denies questions at this time. Lili Martinez RN [facility] 08-06-2024 Miscellaneous Notes Erick with Dr. Garber's office called requesting Dr. Mejia's most recent office note. He also said Bakari is scheduled for Keytruda tomorrow. Bakari called as well stating he is scheduled for both SIM with Dr. Mejia and Keytruda at [facility] tomorrow. He states he is not doing both and would like to reschedule one or the other. I called and spoke with Erick at Dr. Garber's office and he will send a message to Dr. Garber asking when to reschedule Bakari's follow up and Keytruda. Bakari notified of the above and to keep his SIM appt 08/07/24 at 1045. He denies questions at this time. Lili Martinez RN documented in this encounter [facility] 07-31-2024 Telephone encounter Note Nurse visit for IV start has been added. I called and spoke to Bakari and confirmed his SIM appt on 08/07/24 with an arrival of 10:30 AM Ebony Patrick PSS [facility] 07-31-2024 Miscellaneous Notes Nurse visit for IV start has been added. I called and spoke to Bakari and confirmed his SIM appt on 08/07/24 with an arrival of 10:30 AM Ebony B PSS Sim scheduled for 08/07/24 at 11:00am PSS-please schedule nurse visit for 10:45 same day for IV start Notify patient of appointment and to arrive at 10:30 RT Avis(Stephen)(T) Rad Ed added for Tuesday. Jazlyn Moore PSS Please schedule for pt: Rad Ed Today Return for Sim Treating L Adrenal Gland Right Pelvis Left Chest Plan 10-15Fx IV Contrast and Pancrease Protocol Oral Contrast Consent is signed. Will need nurse visit for IV Start Cathy Jovel, RN documented in this encounter [facility] 07-31-2024 Telephone encounter Note Sim scheduled for 08/07/24 at 11:00am PSS-please schedule nurse visit for 10:45 same day for IV start Notify patient of appointment and to arrive at 10:30 Felicia Yeboah RT(R)(T) [facility] 07-30-2024 Telephone encounter Note Maxitrol sent in for pt. Called and LM to notify pt that Rx sent, encouraged warm compresses to area. [facility] 07-30-2024 Miscellaneous Notes Maxitrol sent in for pt. Called and LM to notify pt that Rx sent, encouraged warm compresses to area. Patient has a stye in his eye and wondered if something would be able to be called into [facility] documented in this encounter [facility] 07-30-2024 Telephone encounter Note Rad Ed added for Tuesday. Jazlyn Moore PSS [facility] 07-30-2024 Telephone encounter Note Patient has a stye in his eye and wondered if something would be able to be called into [facility] 07-27-2024 Note HNO ID: [id number] Author: DON MEJIA MD Service: ? Author Type: Physician Type: Progress Notes Filed: 08/13/2024 23:38 Note Text: Radiation Oncology - Follow Up Note PATIENT NAME: Jaret Grajeda PATIENT DIAGNOSIS/PATIENT IDENTIFICATION: Mr. Grajeda is a 64-year-old gentleman diagnosed with a Stage IB, [id number], non-small cell lung cancer (adenocarcinoma) arising from [...] negative at stations 2L and 7. He completed a course of SBRT to the left upper lobe lung lesion on 03/07/2023 (5000 cGy delivered in 4 fractions). Repeat PET/CT from 04/19/2024 noted uptake in a left adrenal mass as well as a right pelvic sidewall mass and he proceeded to immunotherapy (Keytruda) with Dr. Garber. INTERVAL HISTORY: Since his last visit, he had repeat imaging with PET/CT on 07/09/2024 which noted response in the left adrenal lesion however increased size of a suspected left hilar lymph node as well as a right pelvic sidewall mass and no new areas concerning for disease. He is referred back today to the radiation medicine clinic for consideration of additional radiation therapy to his areas of persistent disease. ALLERGIES ALLERGIES No Known Allergies MEDICATIONS: Current Outpatient Medications: amLODIPine (NORVASC) 5 mg tablet omeprazole (PRILOSEC) 20 mg capsule spironolactone (ALDACTONE) 25 mg tablet warfarin (COUMADIN) 5 mg tablet calcium carbonate (CALCIUM 500 ORAL) potassium chloride (KLOR-CON M10 ORAL) magnesium oxide (MAG-OX) 400 mg (241.3 mg magnesium) tablet nicotine (NICODERM) 21 mg/24 hr metoprolol succinate ER (TOPROL XL) 50 mg 24 hr tablet PHYSICAL EXAM: GENERAL: Middle-age gentleman sitting in chair in no acute distress. VITALS: BP 118/76 Pulse 98 Temp 97.9 Resp 16 Wt 133 lb 2.5 oz (60.4kg) SpO2 100% KPS: 80 HEENT: NC/AT, anicteric sclera HEART: S1S2 LUNGS: non-labored breathing ABDOMEN: soft MUSCULOSKELETAL: no peripheral edema, moves all extremities. NEURO: no focal deficit; AANDO X3. RADIOLOGIC DATA: PET/CT (07/09/2024) IMPRESSION: Mr. Grajeda is a 64-year-old gentleman diagnosed with a Stage IB, [id number], non-small cell lung cancer (adenocarcinoma) arising from [...] negative at stations 2L and 7. He completed a course of SBRT to the left upper lobe lung lesion on 03/07/2023 (5000 cGy delivered in 4 fractions). Repeat PET/CT from 04/19/2024 noted uptake in a left adrenal mass as well as a right pelvic sidewall mass and he proceeded to immunotherapy (Keytruda) with . He has had mixed response on immunotherapy seen on updated PET/CT from 07/09/2024 showing persistent disease in the left hilum, left adrenal gland and right pelvic sidewall with no new areas of concern. The patient has declined chemotherapy wishes to remain on immunotherapy which she has been tolerating well. He is referred today to the radiation medicine clinic for consideration of radiation therapy to the areas of persistent disease for local control. I spent time with the patient and his family in decision making and discussion regarding the indications for, logistics of, and toxicity of radiation therapy in this oligometastatic setting. Multiple questions were answered as they arose including a discussion of the mechanism of action of radiation therapy as well as potential causes for normal tissue toxicity. Based upon this discussion, informed consent was obtained, and we agreed to the following: RECOMMENDATIONS: 1. Given the patient's wishes to remain on immunotherapy and the lack of new areas of disease, it would be reasonable to offer a course of palliative radiation therapy to the areas of persistent disease in the left chest, left adrenal gland, right pelvic sidewall for local control. 2. He will be scheduled to return to clinic for CT simulation to begin treatment planning. 3. He will follow-up with Dr. Garber as scheduled for continued evaluation and systemic therapy recommendations. The patient and his family understand the plan as outlined above. All of their questions were answered to their full satisfaction prior to the end of this consultation. They have been provided with our contact information should they have any further questions or concerns in the interim. Than (more content not included)... [facility] 07-27-2024 History of Present illness Narrative Images from the original note were not included. Radiation Oncology - Follow Up Note PATIENT NAME: Jaret Grajeda PATIENT DIAGNOSIS/PATIENT IDENTIFICATION: Mr. Grajeda is a 64-year-old gentleman diagnosed with a Stage IB, [id number], non-small cell lung cancer (adenocarcinoma) arising from [...] negative at stations 2L and 7. He completed a course of SBRT to the left upper lobe lung lesion on 03/07/2023 (5000 cGy delivered in 4 fractions). Repeat PET/CT from 04/19/2024 noted uptake in a left adrenal mass as well as a right pelvic sidewall mass and he proceeded to immunotherapy (Keytruda) with Dr. Garber. INTERVAL HISTORY: Since his last visit, he had repeat imaging with PET/CT on 07/09/2024 which noted response in the left adrenal lesion however increased size of a suspected left hilar lymph node as well as a right pelvic sidewall mass and no new areas concerning for disease. He is referred back today to the radiation medicine clinic for consideration of additional radiation therapy to his areas of persistent disease. ALLERGIES ALLERGIES No Known Allergies MEDICATIONS: Current Outpatient Medications: amLODIPine (NORVASC) 5 mg tablet omeprazole (PRILOSEC) 20 mg capsule spironolactone (ALDACTONE) 25 mg tablet warfarin (COUMADIN) 5 mg tablet calcium carbonate (CALCIUM 500 ORAL) potassium chloride (KLOR-CON M10 ORAL) magnesium oxide (MAG-OX) 400 mg (241.3 mg magnesium) tablet nicotine (NICODERM) 21 mg/24 hr metoprolol succinate ER (TOPROL XL) 50 mg 24 hr tablet PHYSICAL EXAM: GENERAL: Middle-age gentleman sitting in chair in no acute distress. VITALS: BP 118/76 Pulse 98 Temp 97.9 Resp 16 Wt 133 lb 2.5 oz (60.4kg) SpO2 100% KPS: 80 HEENT: NC/AT, anicteric sclera HEART: S1S2 LUNGS: non-labored breathing ABDOMEN: soft MUSCULOSKELETAL: no peripheral edema, moves all extremities. NEURO: no focal deficit; A&O X3. RADIOLOGIC DATA: PET/CT (07/09/2024) IMPRESSION: Mr. Grajeda is a 64-year-old gentleman diagnosed with a Stage IB, [id number], non-small cell lung cancer (adenocarcinoma) arising from [...] negative at stations 2L and 7. He completed a course of SBRT to the left upper lobe lung lesion on 03/07/2023 (5000 cGy delivered in 4 fractions). Repeat PET/CT from 04/19/2024 noted uptake in a left adrenal mass as well as a right pelvic sidewall mass and he proceeded to immunotherapy (Keytruda) with Dr. Garber. He has had mixed response on immunotherapy seen on updated PET/CT from 07/09/2024 showing persistent disease in the left hilum, left adrenal gland and right pelvic sidewall with no new areas of concern. The patient has declined chemotherapy wishes to remain on immunotherapy which she has been tolerating well. He is referred today to the radiation medicine clinic for consideration of radiation therapy to the areas of persistent disease for local control. I spent time with the patient and his family in decision making and discussion regarding the indications for, logistics of, and toxicity of radiation therapy in this oligometastatic setting. Multiple questions were answered as they arose including a discussion of the mechanism of action of radiation therapy as well as potential causes for normal tissue toxicity. Based upon this discussion, informed consent was obtained, and we agreed to the following: RECOMMENDATIONS: 1. Given the patient's wishes to remain on immunotherapy and the lack of new areas of disease, it would be reasonable to offer a course of palliative radiation therapy to the areas of persistent disease in the left chest, left adrenal gland, right pelvic sidewall for local control. 2. He will be scheduled to return to clinic for CT simulation to begin treatment planning. 3. He will follow-up with Dr. Garber as scheduled for continued evaluation and systemic therapy recommendations. The patient and his family understand the plan as outlined above. All of their questions were answered to their full satisfaction prior to the end of this consultation. They have been provided with our contact information should they have any further questions or concerns in the interim. Thank you for allowing us to participate in the care of this patient. Signed by: Don Mejia MD I spent a total of 45 minutes on the date of the service which included preparing to see the patient, [id number] patient care, and counseling and educating the patient/family/caregiver. This document has been created with the use of voice recognition technology. It may contain inaccuracies, misspellings, inaccurate syntax or inappropriate word context that are a result of the inadequacies/shortcomings of said technology/software. documented in this encounter [facility] 07-27-2024 Note HNO ID: [id number] Author: CATHY JOVEL RN Service: ? Author Type: Registered Nurse Type: Progress Notes Filed: 07/27/2024 13:47 Note Text: Radiation Therapy - Patient Education Note PATIENT NAME: Jaret Grajeda PATIENT July 27, 2024 [facility] FACILITY/LOCATION: [facility] READINESS TO LEARN Cognitive Ability: Alert and oriented Motivation to learn: Eager Family Support: High - Very involved in pt care Instruction provide to: Patient and Family member Patient learns best by: Written Instruction - Hand-outs Factors effecting learning: None Physical limitations effecting learning: None LEARNING RESPONSE Diagnosis: Pt educated today for radiation therapy to L Adrenal, R Pelvis, L Chest. Education Topic/Teaching Points: Radiation therapy, Side effects, and OTV: Method of instruction: Written instruction/Handouts Patient /Family response: Patient and family verbalized understanding of radiation treatments, side effects, OTV, and transportation. Follow-up plan: Recommend - Recommend continued instruction and follow up as directed Supplemental material: Informational handouts on Appetite, Diarrhea, and Pelvic handout, abdomen treatment. Referral (recommendation): None, Pt denied need for social work, van service, and senior network security architect. Patient has an [employer] or Implanted device: No Signed by: Cathy Jovel RN [facility] 07-27-2024 History of Present illness Narrative Radiation Therapy - Patient Education Note PATIENT NAME: Jaret Grajeda PATIENT July 27, 2024 [facility] FACILITY/LOCATION: [facility] READINESS TO LEARN Cognitive Ability: Alert and oriented Motivation to learn: Eager Family Support: High - Very involved in pt care Instruction provide to: Patient and Family member Patient learns best by: Written Instruction - Hand-outs Factors effecting learning: None Physical limitations effecting learning: None LEARNING RESPONSE Diagnosis: Pt educated today for radiation therapy to L Adrenal, R Pelvis, L Chest. Education Topic/Teaching Points: Radiation therapy, Side effects, and OTV: Method of instruction: Written instruction/Handouts Patient /Family response: Patient and family verbalized understanding of radiation treatments, side effects, OTV, and transportation. Follow-up plan: Recommend - Recommend continued instruction and follow up as directed Supplemental material: Informational handouts on Appetite, Diarrhea, and Pelvic handout, abdomen treatment. Referral (recommendation): None, Pt denied need for social work, van service, and senior network security architect. Patient has an [employer] or Implanted device: No Signed by: Cathy Jovel RN documented in this encounter [facility] 07-27-2024 Telephone encounter Note Please schedule for pt: Rad Ed Today Return for Sim Treating L Adrenal Gland Right Pelvis Left Chest Plan 10-15Fx IV Contrast and Pancrease Protocol Oral Contrast Consent is signed. 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 - omeprazole (PRILOSEC) 20 mg capsule Take 20 mg by mouth. - spironolactone (ALDACTONE) 25 mg tablet Take 12.5 mg by mouth. - warfarin (COUMADIN) 5 mg tablet 5mg by mouth once daily. - calcium carbonate (CALCIUM 500 ORAL) Take by mouth. - potassium chloride (KLOR-CON M10 ORAL) Take 10 mEq by mouth once daily. - magnesium oxide (MAG-OX) 400 mg (241.3 mg magnesium) tablet Take 1 tablet by mouth three times a day. - nicotine (NICODERM) 21 mg/24 hr - metoprolol succinate ER (TOPROL XL) 50 mg 24 hr tablet Take 1 tablet by mouth every 12 hours. Encounter Status:Closed by CATHY JOVEL on 07/27/24 [facility] 07-19-2024 Telephone encounter Note Spoke with Bakari, he is scheduled for Tuesday07/27/24. Jazlyn Moore PSS [facility] 07-19-2024 Miscellaneous Notes Spoke with Bakari, he is scheduled for Tuesday07/27/24. Jazlyn Moore PSS LM for patient to call back and schedule PSS: Please schedule est patient new problem appt with Dr. Mejia-metastatic lung cancer. thanks Lili Martinez RN documented in this encounter [facility] 07-18-2024 Telephone encounter Note LM for patient to call back and schedule [facility] 07-18-2024 Telephone encounter Note PSS: Please schedule est patient new problem appt with Dr. Mejia-metastatic lung cancer. thanks Lili Martinez RN [facility] 05-03-2024 History of Present illness Narrative Images from the original note were not included. Subjective Patient ID: Jaret Grajeda is a 63 y.o. male who presents for No chief complaint on file.. Jaret presents today to see if any of his medications are making him anemic. He is having cancer treatments done. That started in the lungs but has now spread to other parts of the body. His doctors always comment that he always feels so cold. A month ago he had 2 blood cloths in the lungs and now takes blood thinners. He would like lab work done today. Current Outpatient Medications on File Prior to Visit Medication Sig Dispense Refill calcium carbonate ([employer] Calcium) 600 MG tablet Take 1 tablet (600 mg) by mouth in the morning and 1 tablet (600 mg) at noon and 1 tablet (600 mg) in the evening. Take with meals. 300 tablet 2 folic acid (Folvite) 1 MG tablet Take 1 tablet (1,000 mcg) by mouth Daily 100 tablet 3 furosemide (Lasix) 40 MG tablet Take 1 tablet (40 mg) by mouth Daily 90 tablet 2 ibuprofen 200 MG tablet Take 1 tablet (200 mg) by mouth every 8 (eight) hours if needed for mild pain 300 tablet 3 lisinopril-hydroCHLOROthiazide 20-25 MG tablet 1 (one) time each day at the same time magnesium oxide (Mag-Ox) 400 (240 Mg) MG tablet Take 1 tablet (400 mg) by mouth in the morning and 1 tablet (400 mg) in the evening and 1 tablet (400 mg) before bedtime. 90 tablet 11 metoprolol succinate XL (Toprol-XL) 50 MG 24 hr tablet Take 50 mg by mouth Daily omeprazole (PriLOSEC) [address] capsule Take 1 capsule (20 mg) by mouth Daily 100 capsule 3 potassium chloride CR (Klor-Con M10) 10 MEQ ER tablet Take 1 tablet (10 mEq) by mouth in the morning and 1 tablet (10 mEq) in the evening and 1 tablet (10 mEq) before bedtime. Do not crush or chew.. 270 tablet 3 spironolactone (Aldactone) 25 MG tablet Take 1 tablet (25 mg) by mouth Daily 100 tablet 3 thiamine (Vitamin B-1) 100 MG tablet Take 1 tablet (100 mg) by mouth Daily 90 tablet 3 No current facility-administered medications on file prior to visit. I have reviewed and reconciled the history and medication list with the patient today. No Known Allergies Social History Tobacco Use Smoking status: Every Day Types: Cigarettes Start date: 02/08/1976 Vaping Use Vaping status: Never Used Substance Use Topics Alcohol use: Not Currently Drug use: Never Family History Problem Relation Name Age of Onset Lung cancer Mother Diabetes Father Past Medical History: Diagnosis Date Anemia Arthritis Congestive heart failure (CHF) (CMS/HCC) Lung cancer (CMS/HCC) Past Surgical History: Procedure Laterality Date APPENDECTOMY CT GUIDED PERCUTANEOUS BIOPSY ADRENAL GLANDS 03/16/2024 CT GUIDED PERCUTANEOUS BIOPSY ADRENAL GLANDS 03/16/2024 CT GUIDED PERCUTANEOUS BIOPSY BONE 03/19/2024 CT GUIDED PERCUTANEOUS BIOPSY BONE 03/19/2024 TONSILLECTOMY Visit Vitals Smoking Status Every Day Review of Systems Constitutional: Negative. HENT: Negative. Eyes: Negative. Respiratory: Negative. Cardiovascular: Negative. Gastrointestinal: Negative. Genitourinary: Negative. Musculoskeletal: Negative. Skin: Negative. Neurological: Negative. Psychiatric/Behavioral: Negative. Hematological: Negative. Endocrine: Negative. States he has been feeling cold all of the time Allergic/Immunologic: Negative. Objective Physical Exam Vitals reviewed. Constitutional: Appearance: He is ill-appearing. HENT: Head: Normocephalic and atraumatic. Right Ear: External ear normal. Left Ear: External ear normal. Nose: Nose normal. Mouth/Throat: Mouth: Mucous membranes are moist. Pharynx: Oropharynx is clear. Eyes: Conjunctiva/sclera: Conjunctivae normal. Cardiovascular: Rate and Rhythm: Normal rate and regular rhythm. Heart sounds: Normal heart sounds. Pulmonary: Effort: Pulmonary effort is normal. Comments: Diminished lung sounds Abdominal: General: Abdomen is flat. Musculoskeletal: General: Normal range of motion. Cervical back: Normal range of motion and neck supple. Comments: Uses a walker for ambulation today Skin: General: Skin is warm and dry. Neurological: General: No focal deficit present. Mental Status: He is alert and oriented to person, place, and time. Psychiatric: Mood and Affect: Mood normal. Behavior: Behavior normal. Thought Content: Thought content normal. Judgment: Judgment normal. Assessment/Plan 1. Hypokalemia (Primary) The pt presents today with continued feelings of being cold all of the time. He had labs done 1 month ago and is requesting to be checked again. Labs ordered today in follow up. 03/15/24 Sodium 136 - 145 mmol/L 131 Low 127 Low 131 Low 137 R Potassium 3.5 - 5.1 mmol/L 3.6 3.3 Low 3.4 Low 4.3 R Chloride 98 - 107 mmol/L 105 99 105 101 R CO2 21 - 31 mmol/L 21 20 Low 20 Low Anion Gap 7 - 20 mmol/L 9 11 9 BUN 7 - 25 mg/dL 5 Low 6 Low 7 10 Creatinine 0.70 - 1.30 mg/dL 0.71 0.88 0.91 1.06 R 0.84 R BUN/Creatinine Ratio 7.0 6.8 7.7 SEE NOTE: R, CM Glucose 70 - 100 mg/dL 92 355 High 90 95 R, CM 188 Abnormal R, CM 133 High R, CM Calcium 8.6 - 10.3 mg/dL 7.7 Low 7.0 Low 7.6 Low 9.1 AST 13 - 39 U/L 36 40 High 22 R ALT (SGPT) 7 - 52 U/L 17 19 Alkaline Phosphatase 34 - 104 U/L 78 82 77 R Total Protein 6.0 - 8.3 g/dL 5.1 Low 5.0 Low Albumin 3.5 - 5.7 g/dL 2.1 Low 2.1 Low 3.2 Low R Total Bilirubin 0.3 - 1.0 mg/dL 0.7 0.9 eGFR >60.0 mL/min/1.73m*2 101.8 95.4 C - Comprehensive metabolic panel; Future - Comprehensive metabolic panel 2. 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 03/15/24 WBC 4.00 - 10.60 10*3/uL 6.58 6.92 7.50 11.5 High R RBC 4.20 - 5.70 10*6/uL 2.78 Low 2.15 Low 2.25 Low 3.63 Low R Hemoglobin 13.0 - 17.0 g/dL 8.0 Low 6.3 Low 6.6 Low 11.5 Low R Hematocrit 39.0 - 55.0 % 25.5 Low 19.9 Low 20.8 Low 34.7 Low R MCV 82.0 - 98.0 fL 91.7 92.6 92.4 MCH 27.0 - 33.0 pg 28.8 29.3 29.3 31.7 MCHC 32.0 - 35.0 g/dL 31.4 Low 31.7 Low 31.7 Low 33.1 R RDW 11.5 - 15.0 % 19.0 High 19.0 High 19.0 High 12.4 R Neut% 40.0 - 72.0 % 76.4 High Lymph% 20.0 - 45.0 % 17.0 Low % MONOCYTES 5.0 - 12.0 % 4.9 Low % EOSINOPHILS 0.0 - 6.0 % 0.6 BASOS 0.0 - 1.0 % 0.8 NEUTROPHILS, ABSOLUTE 1.60 - 7.60 10*3/uL 5.03 LYMPHOCYTES, ABSOLUTE 1.20 - 4.00 10*3/uL 1.12 Low MONOCYTES(ABSOLUTE) 0.10 - 1.00 10*3/uL 0.32 EOSINOPHILS, ABSOLUTE 0.00 - 0.50 10*3/uL 0.04 Basophils Absolute 0.00 - 0.20 10*3/uL 0.05 Platelets 150 - 400 10*3/uL 212 247 248 422 High R NUCLEATED RBCS 0 % 0.0 0.0 IMMATURE GRANULOCYTES 0.0 - 1.0 % 0.3 Immature Granulocytes Absolute 0.00 - 0.20 10*3/uL 0.02 - CBC; Future - CBC 3. Hypomagnesemia 03/13/24 Magnesium(Mg) 1.9 - 2.7 mg/dL 2.2 - Magnesium; Future - Magnesium 4. Thyroid disorder screening 08/23/23 TSH 0.40 - 4.50 mIU/L 0.98 - TSH W/REFLEX TO FT4; Future - TSH W/REFLEX TO FT4 5. Emphysema, unspecified (CMS/HCC) Stable at this time. 6. Heart failure, unspecified (CMS/HCC) Stable at this time. 7. Alcohol use, unspecified with withdrawal, uncomplicated (CMS/HCC) Stable at this time. No follow-ups on file. documented in this encounter [facility] 05-03-2024 Instructions Kostas Morales NP - 05/03/2024 11:30 AM EDT Labs ordered today. documented in this encounter [facility] 04-30-2024 History of Present illness Narrative Radiation Oncology - Follow Up Note PATIENT NAME: Jaret Grajeda PATIENT Signed by: Don Mejia MD I spent a total of 40 minutes on the date of the service which included preparing to see the patient, [id number] patient care, and counseling and educating the patient/family/caregiver. This document has been created with the use of voice recognition technology. It may contain inaccuracies, misspellings, inaccurate syntax or inappropriate word context that are a result of the inadequacies/shortcomings of said technology/software. Pacemaker/Defibrillator?N Previous Cancer(s)?Lung cancer Previous Radiation?CCF Lupus/Scleroderma?N On body monitoring device?N Lili Martinez RN documented in this encounter [facility] 04-26-2024 Note HNO ID: [id number] Author: DON MEJIA MD Service: ? Author Type: Physician Type: Progress Notes Filed: 05/08/2024 08:45 Note Text: Radiation Oncology - Follow Up Note PATIENT NAME: Jaret Grajeda PATIENT DIAGNOSIS/PATIENT IDENTIFICATION: Mr. Grajeda is a 63-year-old gentleman diagnosed with a Stage IB, [id number], non-small cell lung cancer (adenocarcinoma) arising from [...] negative at stations 2L and 7. He completed a course of SBRT to the left upper lobe lung lesion on 03/07/2023 (5000 cGy delivered in 4 fractions). Since completion of his SBRT treatments to the left chest, he has been on surveillance with Dr. Garber and recent CT of the abdomen pelvis from 03/14/2024 noted the interval development of an approximate 6 cm heterogenously enhancing centrally necrotic left adrenal mass highly suggestive of adrenal malignancy/metastatic lesion. 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 He was referred to the radiation medicine clinic for consideration of additional SBRT treatment to the area of new disease in the left adrenal gland. Mr. Grajeda returns to clinic today for follow-up as previously discussed during consultation on 04/06/2024. In the interim, he had PET/CT on 04/19/2024 for restaging which noted resolution of the left upper lobe lung mass that was previously treated with SBRT in 2023. It also confirmed hypermetabolic activity in the enlarged left adrenal mass but also noted activity in a new right pelvic wall mass as well as the left hilum both concerning for metastatic disease. He started systemic therapy with immunotherapy yesterday with Dr. Garber in [place]. As there are multiple areas of metastatic disease noted on his recent PET/CT, it would make sense to continue with immunotherapy at this time and consider local therapy with radiation in a more consolidative setting down the road should repeat imaging note limited disease burden. He will continue his follow-up, systemic therapy, and surveillance with Dr. Garber and have an open follow-up with us here in the radiation medicine clinic for the time being. The patient is aware to contact the clinic should any questions or concerns arise. Thank you for allowing us to participate in the care of this patient. RADIOLOGIC DATA: PET/CT (04/19/2024) IMPRESSION Since 01/24/2023, PRIMARY DISEASE SITE: * [...] FDG avid right pelvic wall mass, new. Signed by: Don Mejia MD I spent a total of 15 minutes on the date of the service which included preparing to see the patient, [id number] patient care, and counseling and educating the patient/family/caregiver. This document has been created with the use of voice recognition technology. It may contain inaccuracies, misspellings, inaccurate syntax or inappropriate word context that are a result of the inadequacies/shortcomings of said technology/software. [facility] 04-26-2024 History of Present illness Narrative Radiation Oncology - Follow Up Note PATIENT NAME: Jaret Grajeda PATIENT Signed by: Don Mejia MD I spent a total of 15 minutes on the date of the service which included preparing to see the patient, [id number] patient care, and counseling and educating the patient/family/caregiver. This document has been created with the use of voice recognition technology. It may contain inaccuracies, misspellings, inaccurate syntax or inappropriate word context that are a result of the inadequacies/shortcomings of said technology/software. documented in this encounter [facility] 04-19-2024 History of Present illness Narrative Radiology Service Progress Note DATE OF SERVICE: April 19, 2024 TIME: 12:52 PM PATIENT IDENTITY VERIFICATION COMPLETED USING TWO [...] place to prevent falls during this visit? Instructed Patient to Call for Help if Needed, Offered Assistance with Transfers/Clothing, and Instructed Patient to Remain Seated (Not on Exam Table) Until Exam PATIENT GENDER DATA: Assigned male at EXAM: CT -CONTRAST INDUCED NEPHROPATHY RISK FACTORS: Not applicable CREATININE: Creatinine Date Value Ref Range Status 01/24/2023 0.84 0.73 - 1.22 mg/dL Final Estimated Glomerular Filtration Rate Date Value Ref Range Status 01/24/2023 97 >=60 mL/min/1.73m Final Comment: Estimated Glomerular Filtration Rate (eGFR) is calculated using the 2020 CKD-EPI creatinine equation. This equation utilizes serum creatinine, sex, and age as parameters. The creatinine assay has traceable calibration to isotope dilution-mass spectrometry. Refer to KDIGO guidelines for clinical interpretation. In patients with unstable renal function, e.g. those with acute kidney injury, the eGFR may not accurately reflect actual GFR. P.O.C.T. RESULTS: N/A April 19, 2024 TREATMENT: N/A IV SITE: Ambulatory: A peripheral IV was started in the Right forearm with a Angio cath: 24 gauge. IV SITE APPEARANCE: Clean,Dry and Intact SIGNATURE: Valentino Estevez RN PATIENT NAME: Jaret Grajeda DATE: April 19, 2024 TIME: 12:52 PM RADIOLOGY SERVICE PROGRESS NOTE SERVICE DATE: 04/19/2024 SERVICE TIME: 1:09 PM PATIENT IDENTITY VERIFICATION COMPLETED USING TWO (2) STANDARD IDENTIFIERS: Name and Date of confirmed by patient verbally POST EXAM PIV STATUS: Discontinued PROCEDURE TYPE: NM INJECT: PET/CT BODY SCAN. 6.8 mCi F18 FDG. No other medications given.. ADMINISTRATION TIME: 1251 PATIENT DISCHARGED TO: Ambulatory patient, left [place] department area. Is this a therapy: No A Diagnostic radioactive procedure has taken place, with no further precautions necessary other than routine body substance precautions. More information regarding radiation safety can be found using this link: [email or web address] SIGNATURE: RT Sharita(Stephen) PATIENT NAME: Jaret Grajeda DATE: April 19, 2024 TIME: 1:09 PM PAGER/CONTACT #: documented in this encounter [facility] 04-19-2024 Note HNO ID: [id number] Author: VALENTINO ESTEVEZ RN Service: ? Author Type: Registered Nurse Type: Progress Notes Filed: 04/19/2024 12:53 Note Text: Radiology Service Progress Note DATE OF SERVICE: April 19, 2024 TIME: 12:52 PM PATIENT IDENTITY VERIFICATION COMPLETED USING TWO [...] place to prevent falls during this visit? Instructed Patient to Call for Help if Needed, Offered Assistance with Transfers/Clothing, and Instructed Patient to Remain Seated (Not on Exam Table) Until Exam PATIENT GENDER DATA: Assigned male at EXAM: CT -CONTRAST INDUCED NEPHROPATHY RISK FACTORS: Not applicable CREATININE: Creatinine Date Value Ref Range Status 01/24/2023 0.84 0.73 - 1.22 mg/dL Final Estimated Glomerular Filtration Rate Date Value Ref Range Status 01/24/2023 97 >=60 mL/min/1.73m? Final Comment: Estimated Glomerular Filtration Rate (eGFR) is calculated using the 2020 CKD-EPI creatinine equation. This equation utilizes serum creatinine, sex, and age as parameters. The creatinine assay has traceable calibration to isotope dilution-mass spectrometry. Refer to KDIGO guidelines for clinical interpretation. In patients with unstable renal function, e.g. those with acute kidney injury, the eGFR may not accurately reflect actual GFR. P.O.C.T. RESULTS: N/A April 19, 2024 TREATMENT: N/A IV SITE: Ambulatory: A peripheral IV was started in the Right forearm with a Angio cath: 24 gauge. IV SITE APPEARANCE: Clean,Dry and Intact SIGNATURE: Valentino Estevez RN PATIENT NAME: Jaret Grajeda DATE: April 19, 2024 TIME: 12:52 PM [facility] 04-19-2024 Note HNO ID: [id number] Author: KAYLI MILLS RT(R) Service: ? Author Type: Technologist Type: Progress Notes Filed: 04/19/2024 13:10 Note Text: RADIOLOGY SERVICE PROGRESS NOTE SERVICE DATE: 04/19/2024 SERVICE TIME: 1:09 PM PATIENT IDENTITY VERIFICATION COMPLETED USING TWO (2) STANDARD IDENTIFIERS: Name and Date of confirmed by patient verbally POST EXAM PIV STATUS: Discontinued PROCEDURE TYPE: NM INJECT: PET/CT BODY SCAN. 6.8 mCi F18 FDG. No other medications given.. ADMINISTRATION TIME: 1251 PATIENT DISCHARGED TO: Ambulatory patient, left [place] department area. Is this a therapy: No A Diagnostic radioactive procedure has taken place, with no further precautions necessary other than routine body substance precautions. More information regarding radiation safety can be found using this link: [email or web address]%[email or web address] [email or web address] SIGNATURE: Kayli Mills, RT(R) PATIENT NAME: Jaret Grajeda DATE: April 19, 2024 TIME: 1:09 PM PAGER/CONTACT #: [facility] 04-18-[address] - 04/18/2024 1:02 PM EDT -aim for weight maintenance during treatment -aim for small frequent meals/snacks - eat around the clock every 3 hours versus waiting on hunger cues -encouraged adequate hydration -aim for 60-64 ounces non-caffeine containing fluids -discussed oral nutrition supplements -Ensure Plus High Protein; goal of 2 per day -incorporate calorie/protein boosting techniques at meals/snacks -whole milk, full fat dairy, cream, butter/margarine, full fat landeros/dressing/condiments, oils, avocado, peanut butter, etc. documented in this encounter [facility] 04-18-2024 Note Education (NUTRSA) JARET GRAJEDA ([id number]) 1960 M Date Time Provider Department 04/18/24 12:45 PM SARAH MARTE Reason for Visit: Nutrition Telephone [2014] Primary Visit Diagnosis: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) [C34.12] During your visit today, we recorded the following information about you: Allergies As of Date: 04/18/2024 (Not on File) Date Reviewed: 04/18/2024 Reviewed by: Sarah Marte RD - Fully Assessed Prescriptions as of 04/18/2024 - amLODIPine (NORVASC) 5 mg tablet Take 5 mg by mouth. - omeprazole (PRILOSEC) 20 mg capsule Take 20 mg by mouth. - spironolactone (ALDACTONE) 25 mg tablet Take 12.5 mg by mouth. - warfarin (COUMADIN) 5 mg tablet 5mg by mouth once daily. - calcium carbonate (CALCIUM 500 ORAL) Take [...] mouth every 12 hours. Encounter Status:Closed by SARAH MARTE on 04/18/24 [facility] 04-18-2024 Note HNO ID: [id number] Author: SARAH MARTE RD Service: ? Author Type: Registered Dietitian Type: Progress Notes Filed: 04/18/2024 13:26 Note Text: Oncology Nutrition Therapy Initial Assessment I have communicated my name and active licensure. The patient's identity and physical location were verified at the time of this visit. Either the patient or their legal floor representative has been informed of the risks and benefits of -- and alternatives to -- treatment through a remote evaluation and consents to proceed with the evaluation remotely. RECOMMENDED MALNUTRITION DIAGNOSIS: NO MALNUTRITION IDENTIFIED Nutrition Diagnosis: Increased protein and energy needs related to hypermetabolic disease process as evidenced by need for weight maintenance and preservation of muscle mass. Nutrition Intervention: -aim for weight maintenance during treatment -aim for small frequent meals/snacks - eat around the clock every 3 hours versus waiting on hunger cues -encouraged adequate hydration -aim for 60-64 ounces non-caffeine containing fluids -discussed oral nutrition supplements -Ensure Plus High Protein; goal of 2 per day -incorporate calorie/protein boosting techniques at meals/snacks -whole milk, full fat dairy, cream, butter/margarine, full fat landeros/dressing/condiments, oils, avocado, peanut butter, etc. -provided contact information for any further questions/concerns Nutrition Monitoring AND Evaluation: -PO Intake -Wt status -BM's -Supplement tolerance/acceptance -Biochemical Markers -Plan of care Patient's current symptoms are: Behavioral: altered appetite Weight Concerns: weight loss Patient presents for nutrition counseling for: malignant neoplasm of upper lobe of left lung Current Treatment: RT, per chart review start date pending PMHx: per care everywhere- CHF, HTN, Hyperlipidemia, alcohol abuse, anemia Pt denies any chewing/swallowing issues, denies current N/V/D/C. Pt denies food allergies/intolerances. Pt reports experiencing decreased appetite for a while. He reports he has hardly eating or only ate bites at a time. Over past 2 weeks or so feels like it is slowly improving and he has been eating small amounts and eating more frequently. States he is eating whatever I want. Reports meals are meat/potatoes, will snack on cookies, chips. Pt states he is interested ONS. Reviewed with pt importance of adequate calories/protein and preserving lean muscle mass. Reviewed above interventions, problem solved with pt on ways to meet recommendations, and answered all of patient's questions. Thank you for allowing me to participate in the care of this pt. Readiness to Learn: Cognitive ability: Alert and oriented Motivation to learn: Interested Family support: High - Very involved in pt care Instruction provided to: Patient and family member Patient learns best by: Multiple Methods Factors affecting learning: None Physical limitations affecting learning: None Educational materials provided: High Calorie/Protein Guidelines, High Protein Foods, Snack Ideas for Weight Gain Anthropometrics: Height: Last 1 Encounter Ht Readings: Date: Ht: 10/14/2022 173 cm (5' 8.11 ) Current weight: Last 1 Encounter Wt Readings: Date: Wt: 04/06/2024 57.6 kg (126 lb 15.8 oz) Estimated body mass index is 19.24 kg/m? as calculated from the following: Height as of 10/14/22: 173 cm (5' 8.11 ). Weight as of 04/06/24: 57.6 kg (126 lb 15.8 oz). Resting Metabolic Rate: 1341 Weight Change: pt reports 30# weight loss (19%) over past year Comments: ongoing weight fluctuations expected due to fluid status changes given pt on diuretic therapy. Dosing Weight: 57.6 kg Estimated kilocalorie needs: 5010-1991 kilocalories determined by 30-35 kcal/kg Estimated protein needs: 69-86 grams determined by 1.2-1.5 g/kg Dosing weight Estimated fluid needs: ~5803-0295 milliliters based on 1 mL per kcal (unless otherwise indicated) Nutrition Focused Physical Exam: Unable to perform exam due to patient unable to participate due to encounter type (phone), will re-attempt during reassessment. Potential Signs of Inflammation: chronic condition Allergies: Patient has no allergy information on record. Medications: Current Outpatient Medications Medication Sig Dispense Refill amLODIPine (NORVASC) 5 mg tablet Take 5 mg by mouth. omeprazole (PRILOSEC) 20 mg capsule Take 20 mg by mouth. spironolactone (ALDACTONE) 25 mg tablet Take 12.5 mg by mouth. warfarin (COUMADIN) 5 mg tablet 5mg by mouth once daily. calcium carbonate (CALCIUM 500 ORAL) Take by mouth. pantoprazole DR (PROTONIX) 40 mg tablet Take 40 mg by mouth once daily. potassium chloride (KLOR-CON M10 ORAL) Take 10 mEq by mouth once daily. THIAMINE HCL, VITAMIN B1, ORAL Daily folic acid 1 mg tablet Take 1 mg by mouth once daily. magnesium oxide (MAG-OX) 400 mg (241.3 mg magnesium) tablet Take 1 tablet by mouth three astrid (more content not included)... [facility] 04-18-2024 History of Present illness Narrative Oncology Nutrition Therapy Initial Assessment I have communicated my name and active licensure. The patient's identity and physical location were verified at the time of this visit. Either the patient or their legal floor representative has been informed of the risks and benefits of -- and alternatives to -- treatment through a remote evaluation and consents to proceed with the evaluation remotely. RECOMMENDED MALNUTRITION DIAGNOSIS: NO MALNUTRITION IDENTIFIED Nutrition Diagnosis: Increased protein and energy needs related to hypermetabolic disease process as evidenced by need for weight maintenance and preservation of muscle mass. Nutrition Intervention: -aim for weight maintenance during treatment -aim for small frequent meals/snacks - eat around the clock every 3 hours versus waiting on hunger cues -encouraged adequate hydration -aim for 60-64 ounces non-caffeine containing fluids -discussed oral nutrition supplements -Ensure Plus High Protein; goal of 2 per day -incorporate calorie/protein boosting techniques at meals/snacks -whole milk, full fat dairy, cream, butter/margarine, full fat landeros/dressing/condiments, oils, avocado, peanut butter, etc. -provided contact information for any further questions/concerns Nutrition Monitoring & Evaluation: -PO Intake -Wt status -BM's -Supplement tolerance/acceptance -Biochemical Markers -Plan of care Patient's current symptoms are: Behavioral: altered appetite Weight Concerns: weight loss Patient presents for nutrition counseling for: malignant neoplasm of upper lobe of left lung Current Treatment: RT, per chart review start date pending PMHx: per care everywhere- CHF, HTN, Hyperlipidemia, alcohol abuse, anemia Pt denies any chewing/swallowing issues, denies current N/V/D/C. Pt denies food allergies/intolerances. Pt reports experiencing decreased appetite for a while. He reports he has hardly eating or only ate bites at a time. Over past 2 weeks or so feels like it is slowly improving and he has been eating small amounts and eating more frequently. States he is eating whatever I want. Reports meals are meat/potatoes, will snack on cookies, chips. Pt states he is interested ONS. Reviewed with pt importance of adequate calories/protein and preserving lean muscle mass. Reviewed above interventions, problem solved with pt on ways to meet recommendations, and answered all of patient's questions. Thank you for allowing me to participate in the care of this pt. Readiness to Learn: Cognitive ability: Alert and oriented Motivation to learn: Interested Family support: High - Very involved in pt care Instruction provided to: Patient and family member Patient learns best by: Multiple Methods Factors affecting learning: None Physical limitations affecting learning: None Educational materials provided: High Calorie/Protein Guidelines, High Protein Foods, Snack Ideas for Weight Gain Anthropometrics: Height: Last 1 Encounter Ht Readings: Date: Ht: 10/14/2022 173 cm (5' 8.11 ) Current weight: Last 1 Encounter Wt Readings: Date: Wt: 04/06/2024 57.6 kg (126 lb 15.8 oz) Estimated body mass index is 19.24 kg/m as calculated from the following: Height as of 10/14/22: 173 cm (5' 8.11 ). Weight as of 04/06/24: 57.6 kg (126 lb 15.8 oz). Resting Metabolic Rate: 1341 Weight Change: pt reports 30# weight loss (19%) over past year Comments: ongoing weight fluctuations expected due to fluid status changes given pt on diuretic therapy. Dosing Weight: 57.6 kg Estimated kilocalorie needs: 7765-7837 kilocalories determined by 30-35 kcal/kg Estimated protein needs: 69-86 grams determined by 1.2-1.5 g/kg Dosing weight Estimated fluid needs: ~4078-4521 milliliters based on 1 mL per kcal (unless otherwise indicated) Nutrition Focused Physical Exam: Unable to perform exam due to patient unable to participate due to encounter type (phone), will re-attempt during reassessment. Potential Signs of Inflammation: chronic condition Allergies: Patient has no allergy information on record. Medications: Current Outpatient Medications Medication Sig Dispense Refill amLODIPine (NORVASC) 5 mg tablet Take 5 mg by mouth. omeprazole (PRILOSEC) 20 mg capsule Take 20 mg by mouth. spironolactone (ALDACTONE) 25 mg tablet Take 12.5 mg by mouth. warfarin (COUMADIN) 5 mg tablet 5mg by mouth once daily. calcium carbonate (CALCIUM 500 ORAL) Take by mouth. pantoprazole DR (PROTONIX) 40 mg tablet Take 40 mg by mouth once daily. potassium chloride (KLOR-CON M10 ORAL) Take 10 mEq by mouth once daily. THIAMINE HCL, VITAMIN B1, ORAL Daily folic acid 1 mg tablet Take 1 mg by mouth once daily. magnesium oxide (MAG-OX) 400 mg (241.3 mg magnesium) tablet Take 1 tablet by mouth three times a day. nicotine (NICODERM) 21 mg/24 hr metoprolol succinate ER (TOPROL XL) 50 mg 24 hr tablet Take 1 tablet by mouth every 12 hours. No current facility-administered medications for this visit. Need for Follow up: will continue to follow Referred by: Sarah JIMENEZ Billing Type: Initial Assess/15 min 2 units Time Spent with Patient: 30 minutes Signed by: Sarah Marte RD, DETASSELER, LD documented in this encounter [facility] 04-09-2024 Note [facility] Note Reason for cardiology consult: Chronic heart failure Chief Complaint: Shortness of breath HPI: Jaret Grajeda is a 63 y.o. male with past medical history of chronic congestive heart failure, hypertension, hyperlipidemia, tobacco abuse, alcohol abuse, left upper lobe lung cancer status postradiation, chronic disease anemia Patient was admitted recently to [facility] with severe sepsis and hypothermia, he was found left pulmonary embolism, and left lower lobe pneumonia, and UTI. Also he was found to have a new adrenal mass measuring 6.1 x 4.2 cm. He was transferred to [facility] on 03/13/2024. He was discharged on 03/21/2024. He had workup for possible GI bleed and GI evaluation was negative. He had a biopsy of the adrenal mass and it turned out to be a cancer. He had bone marrow biopsy for anemia. He is not sure of the plan of treating the adrenal cancer. His mentioned that he is going to have a PET scan soon Patient is a relatively active he walks and he does ordinary daily activities. He admits mild exertional dyspnea which not changed from his baseline. Denies orthopnea or paroxysmal nocturnal dyspnea. He denies chest pain at rest or with exertion. He wakes up during the night because of the cough. He denies legs edema or discomfort on exertion. He denies palpitation or dizziness or syncope He is longtime smoker at least 1 to 2 packs a day for 40 years and he is down to half pack per day now. Also he is a longtime alcohol drinker is 4-5 beers a day for more than 40 years however he quit few months ago. He denies illicit drugs Cardiology ROS: GENERAL: Denies fever, chills, night sweats, weight loss. HEENT: Denies changes in vision, photophobia, changes in hearing, epistaxis, oral bleeding. CARDIOVASCULAR: He reports exertional dyspnea. Denies chest pain,orthopnea/PND, lower extremity edema, palpitations, lightheadedness/dizziness. RESPIRATORY: He reports SOB, coughing coughing, no wheezing GI: Denies abdominal pain, nausea/vomiting, heartburn, melena/hematochezia. RENAL: Denies dysuria, hematuria, flank pain. MSK: Denies muscle weakness/pain, arthralgias/joint pain. NEUROLOGIC: Denies LOC, weakness, numbness, headaches. SKIN: Denies abnormal rashes or bleeding. PSYCH: Denies significant anxiety, depression, sleep disturbances. Past Medical History He has a past medical history of Alcoholic fatty liver, Anemia, unspecified, Cancer of upper lobe of left lung (CMS/HCC), CHF (congestive heart failure) (CMS/HCC), History of transfusion (07/2022), Hypertension, Pulmonary embolism (CMS/HCC), and Subclavian artery aneurysm. Surgical History He has a past surgical history that includes Lung biopsy (08/03/2022); Appendectomy; and Tonsillectomy. Social History He reports that he has been smoking cigarettes. He has a 40 pack-year smoking history. He has never used smokeless tobacco. He reports that he does not currently use alcohol after a past usage of about 42.0 standard drinks of alcohol per week. He reports that he does not currently use drugs. Family History Family History Family history unknown: Yes Allergies Patient has no known allergies. Medications Current Outpatient Medications: amLODIPine (Norvasc) 5 mg tablet, Take 1 tablet (5 mg) by mouth in the morning., Disp: 30 tablet, Rfl: 3 calcium carbonate 600 mg calcium (1,500 mg) tablet, Take 600 mg by mouth before breakfast, before lunch, and before evening meal., Disp: , Rfl: Klor-Con M10 10 mEq ER tablet, Take 10 mEq by mouth three times daily., Disp: , Rfl: magnesium oxide (Mag-Ox) 400 mg (241.3 mg magnesium) tablet, Take 400 mg by mouth three times daily., Disp: , Rfl: metoprolol succinate XL (Toprol-XL) 50 mg 24 hr tablet, Take 50 mg by mouth in the morning., Disp: , Rfl: omeprazole (PriLOSEC) [address] capsule, Take 20 mg by mouth before breakfast., Disp: , Rfl: spironolactone (Aldactone) 25 mg tablet, Take 0.5 tablets (12.5 mg) by mouth in the morning., Disp: 15 tablet, Rfl: 3 warfarin (Coumadin) 5 mg tablet, 5mg by mouth once daily., Disp: 14 tablet, Rfl: 0 nicotine (Nicoderm CQ) 14 mg/24 hr patch, Place 1 patch on the skin if needed each day (smoking)., Disp: 14 patch, Rfl: 2 Last Recorded Vitals Visit Vitals Pulse 88 Ht 1.753 m (5' 9 ) Wt 59 kg (130 lb) SpO2 97% BMI 19.20 kg/m??? Smoking Status Every Day BSA 1.69 m??? Physical Examination: GENERAL: alert and oriented x3, well developed, in no acute distress. HEAD: atraumatic, normocephalic. EYES: DEBBY, EOMI. NECK: trachea midline, no JVD present, no carotid bruits present. CARDIAC: S1, S2 present. RRR. No murmur, rubs, or gallops. RESPIRATORY: Generalized decreased breath sounds bilaterally but CTAB, no increased effort of breathing, no rales, rhonchi, or wheezing. ABDOMEN: soft, nontender, nondistended. EXTREMITIES: no lower extremity edema. No (more content not included)... [facility] 04-06-2024 Note HNO ID: [id number] Author: DON MEJIA MD Service: ? Author Type: Physician Type: Progress Notes Filed: 05/01/2024 04:42 Note Text: Radiation Oncology - Follow Up Note PATIENT NAME: Jaret Grajeda PATIENT DIAGNOSIS/PATIENT IDENTIFICATION: Mr. Grajeda is a 63-year-old gentleman diagnosed with a Stage IB, [id number], non-small cell lung cancer (adenocarcinoma) arising from [...] 03/07/2023 (5000 cGy delivered in 4 fractions). INTERVAL HISTORY: Since completion of his SBRT treatments to the left chest, he has been on surveillance with Dr. Garber and recent CT of the abdomen pelvis from 03/14/2024 noted the interval development of an approximate 6 cm heterogenously enhancing centrally necrotic left adrenal mass highly suggestive of adrenal malignancy/metastatic lesion. 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 He is referred today to the radiation medicine clinic for consideration of additional SBRT treatment to the area of new disease in the left adrenal gland. ALLERGIES ALLERGIES No Known Allergies MEDICATIONS: Current Outpatient Medications: amLODIPine (NORVASC) 5 mg tablet omeprazole (PRILOSEC) 20 mg capsule spironolactone (ALDACTONE) 25 mg tablet warfarin (COUMADIN) 5 mg tablet calcium carbonate (CALCIUM 500 ORAL) potassium chloride (KLOR-CON M10 ORAL) magnesium oxide (MAG-OX) 400 mg (241.3 mg magnesium) tablet nicotine (NICODERM) 21 mg/24 hr metoprolol succinate ER (TOPROL XL) 50 mg 24 hr tablet PHYSICAL EXAM: GENERAL: Middle-age gentleman sitting in chair in no acute distress. VITALS: BP 106/76 Pulse 91 Temp 96.9 Resp 18 Wt 126 lb 15.8 oz (57.6kg) SpO2 99% KPS: 80 HEENT: NC/AT, anicteric sclera HEART: S1S2 LUNGS: non-labored breathing ABDOMEN: soft MUSCULOSKELETAL: no peripheral edema, moves all extremities. NEURO: no focal deficit; AANDO X3. PATHOLOGIC DATA: 03/16/2024 FINAL DIAGNOSIS [facility], [place], [place] ([id number], 03/16/2024) A. Adrenal gland, biopsy: -SMARCA2 deficient carcinoma, consistent with patient's lung primary. Diagnosis Comment Thank you very much for [...] Napsin A: Negative TTF-1: Negative Calretinin: Negative [place] 1: Negative PAX8: Negative GATA3 equivocal Given these morphologic features, additional immunohistochemical stains performed at the [facility] to aid in the classification of the tumor and demonstrates the following: SF1: Negative CAM5.2: Positive SMARCA2: Loss of expression SMARCA4: Retained expression INI1: Retained expression GATA3: Negative This immunophenotype, in conjunction with morphology and the patient's clinical history of lung adenocarcinoma, I would regard this tumor to be best classified as a SMARCA2 deficient carcinoma, consistent with the patient's lung primary. RADIOLOGIC DATA: CT Abdomen/Pelvis (03/14/2024) * Heterogeneously enhancing, centrally necrotic left adrenal mass measuring 6.1 x 4.2 cm, which is new in comparison with previous CT from July 2022. This is highly suggestive of adrenal malignancy/metastatic lesion. (more content not included)... [facility] 04-06-2024 Note HNO ID: [id number] Author: LILI MARTINEZ RN Service: ? Author Type: Registered Nurse Type: Progress Notes Filed: 04/30/2024 23:51 Note Text: Pacemaker/Defibrillator?N Previous Cancer(s)?Lung cancer Previous Radiation?[facility] Lupus/Scleroderma?N On body monitoring device?N Lili Martinez RN [facility] 04-06-2024 Telephone encounter Note All paperwork has been faxed to [facility] for 2nd opinion. Ebony Patrick PSS [facility] 04-06-2024 Miscellaneous Notes All paperwork has been faxed to [facility] for 2nd opinion. Ebony Patrick PSS FYI--Brandon with Dr. Garber's states he did not order a PET scan. She will fax the most recent office note that is available and fax 04/03/24 office note once it's dictated. Lili Martinez RN Dr Mejia- please sign order for pathology read. PSS- please arrange second opinion pathology as requested. Please also find out if pt had PET and if so, cancel ours. If pet has been done, will need report and images. Thank you Cathy Jovel RN Per Dr Mejia note, 04/04. Thanks for getting Dr Garber's note I see that the adrenal gland was biopsied on 03/16 (results in care everywhere) - can we have it reviewed thru [facility] as well. And his note also mentions discussing a PET - would see if it has been scheduled and would cancel ours if he's already had it or is before ours. documented in this encounter [facility] 04-04-2024 Telephone encounter Note FYI--Brandon with Dr. Garber'sánchez states he did not order a PET scan. She will fax the most recent office note that is available and fax 04/03/24 office note once it's dictated. Lili Martinez RN [facility] 04-04-[address] Mejia- please sign order for pathology read. PSS- please arrange second opinion pathology as requested. Please also find out if pt had PET and if so, cancel ours. If pet has been done, will need report and images. Thank you Cathy Jovel RN [facility] 04-04-2024 Telephone encounter Note Per Dr Mejia note, 04/04. Thanks for getting Dr Garber's note I see that the adrenal gland was biopsied on 03/16 (results in care everywhere) - can we have it reviewed thru [facility] as well. And his note also mentions discussing a PET - would see if it has been scheduled and would cancel ours if he's already had it or is before ours. [facility] 03-23-2024 Note [facility] Anticoagulation Clinic - Patient Intake Form Jaret Grajeda is a 63 y.o. year old male referred to us for anticoagulation management. Clinic received referral from Inpatient. Pertinent information from current hospital stay: Transferred from [facility] to [facility]. Had fallen and presented with hypothermia. Workup showed pneumonia and left PE. Course of hospital stay: Started on heparin and vancomycin and zosyn. Also found to have adrenal mass. Biopsy of adrenal mass completed. Cost assessment completed for DOAC and was $600 monthly-was decided to start warfarin. Treatment with azithromycin and rocephin was completed for pneumonia. Was offered discharge with lovenox bridge and family preferred to continue IP with heparin bridge. Anticoagulation dosing and INRs (if applicable) while in hospital: Date INR Dose (mg) 03/17 1.04 5 03/18 1.14 5 210 1.22 7.5 211 1.43 7.5 2 2.11 5 Therapy Evaluation: Jaret Grajeda is prescribed warfarin for VTE prophylaxis. Goal INR: 2.0-3.0. The duration of therapy is for indefinite. Financial Evaluation: No Significant Drug Interactions: none Past Surgical History: Procedure Laterality Date APPENDECTOMY LUNG BIOPSY 08/03/2022 TONSILLECTOMY Family history (VTE, coagulopathy, etc.): No relevant family history has been documented for this patient. Family History Family history unknown: Yes Allergies as of 03/23/2024 (No Known Allergies) Baseline Labs: Ht Readings from Last 1 Encounters: 03/13/24 1.753 m (5' 9 ) Wt Readings from Last 1 Encounters: 03/21/24 68.5 kg (151 lb) [place] body weight: 70.7 kg (155 lb 13.8 oz) BMI Readings from Last 1 Encounters: 03/21/24 22.30 kg/m??? Lab Results Component Value Date CREATININE 0.69 (L) 03/21/2024 CrCl: Serum creatinine: 0.69 mg/dL (L) 03/21/24 0635 Estimated creatinine clearance: 103.4 mL/min (A) (DOAC CrCl utilizing actual body weight) Lab Results Component Value Date HGB 8.2 (L) 03/21/2024 Lab Results Component Value Date PLT 276 03/21/2024 Lab Results Component Value Date ALT 13 03/21/2024 AST 23 03/21/2024 ALKPHOS 94 03/21/2024 BILITOT 0.5 03/21/2024 VTE Risks: [] Prior VTE/CVA [x] >40 Y.O. [] Obesity [] Immobile/Inactive [] Contraceptives/Hormones [] [] Family hx of VTE/Coagulopathy [] Recent surgery [x] Malignancy [] Coagulopathy []Central venous catheter [] IBD or rheumatic disease [] Varicose veins/vascular disease Notes: LVM for patient to review warfarin post discharge and management moving forward. Appears there is a medication management clinic in the [facility], which may be move convenient for the patient. [facility] 03-21-2024 Note Met with patient bed side. Pt was dressed and waiting for his daughter to come pick him up. Discussed MD recommendation for [facility] services. Pt reported he is not interested. He lives with his daughter who is home with him all the time and will be able to assist him with medications and getting around. Pt states his daughter is able to transport him to appointments as needed as well. 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 Denies and questions/concerns when offered. CNC. Lisette Gabriel PTA [facility] 03-21-2024 Note Hospital Medicine Discharge Summary Final Discharge Diagnosis: Acute PE CAP of LLL Adrenal Mass H/o lung adenocarcinoma Anemia Hypokalemia Admission Diagnosis: Pulmonary embolism without acute cor pulmonale, unspecified chronicity, unspecified pulmonary embolism type (CMS/HCC) [I26.99] Hospital course: 63-year-old male who was admitted to [facility] on 03/13 from [facility] due to pulmonary embolism. He has a history of tobacco use, alcohol use, left upper lobe lung cancer status post radiation, CHF, hyperlipidemia, hypertension, anemia chronic disease. The patient was found after a fall in the parking lot and upon presentation to [facility] was hypothermic that improved with Yuli hugger. Left lower lobe pneumonia and pulmonary embolism. He was initiated on heparin infusion along with empiric antibiotics and transferred to [facility]. TTE was performed at [facility] but was pending at the time of his arrival so repeat TTE was performed at [facility] which did not show any evidence of right heart strain. The patient continued to be on room air and was doing well in this regard. However at [facility] the patient was also found to have greater than 5 cm for which dedicated at our hospital showed 6.1 x 4.2 cm that was new in comparison from July 2022. We do not have full records but this did appear to be a new lesion. Considering his history of lung cancer and the characteristics found on CT, this was highly suggestive of metastatic disease. Underwent biopsy of his adrenal gland and physiological workup that is although metanephrines were negative. Oncology was consulted did GI evaluation for potential GI bleed. The patient exhibited no signs or symptoms of GI bleed and they signed off. They also recommended bone marrow biopsy due to concern of marrow invasion of his malignancy. This was obtained on 03/19 without complication. Pulmonary embolism - No heart strain or hemodynamic compromise on imaging. - Was bridged to warfarin with heparin infusion and discharged with instruction to closely follow up at [facility] clinic. Target INR 2-3 -Medicare will not cover DOAC ($600+ monthly) and he will need lifelong AC CAP of LLL -Completed IV azithromycin 500 mg and IV Rocephin 2 g for 3 days beginning on 03/13 Adrenal mass H/o lung adenocarcinoma stage 1B -CTAP 03/14 shows Heterogeneously enhancing, centrally necrotic left adrenal mass measuring 6.1 x 4.2 cm, which is new in comparison with previous CT from July 2022 -Clinical picture highly suggestive of metastatic disease -HemOnc consulted, obtained biopsy. Will need to follow up biopsy and adrenal physiologic work up as outpatient. Normocytic anemia -GI were consulted and had low suspicion of GI bleeding -f/u bone marrow bx results Surgical, Invasive or Diagnostic Procedures Done During Admission: Biopsy of adrenal mass, bone marrow biopsy Consultations During Admission: Gastroenterology and Hematology/Oncology Dear Dr. Karen MD, Jaret is advised to follow up with you within 1-2 weeks. Items to follow up in ambulatory setting: Adrenal mass biopsy results, bone marrow biopsy results, and adrenal mass physiologic workup Follow-up with: Hematology/Oncology Scheduled appointments: Future Appointments Date Time Provider Department Center 04/09/2024 2:40 PM Benitez Collado MD [facility] 04/26/2024 2:00 PM Micheal Iqbal MD [facility] Comprehensiv Your medication list START taking these medications Instructions Last Dose Given Next Dose Due amLODIPine 5 mg tablet Commonly known as: Norvasc Take 1 tablet (5 mg) by mouth in the morning. nicotine 14 mg/24 hr patch Commonly known as: Nicoderm CQ Place 1 patch on the skin if needed each day (smoking). warfarin 5 mg tablet Commonly known as: Coumadin 5mg by mouth once daily. CHANGE how you take these medications Instructions Last Dose Given Next Dose Due spironolactone 25 mg tablet Commonly known as: Aldactone What changed: how much to take Take 0.5 tablets (12.5 mg) by mouth in the morning. CONTINUE taking these medications Instructions Last Dose Given Next Dose Due calcium carbonate 600 mg calcium (1,500 mg) tablet Klor-Con M10 10 mEq ER tablet Generic drug: potassium chloride CR magnesium oxide 400 mg (241.3 mg magnesium) tablet Commonly known as: Mag-Ox metoprolol succinate XL 50 mg 24 hr tablet Commonly known as: Toprol-XL omeprazole [address] capsule Commonly known as: PriLOSEC STOP taking these medications ibuprofen 200 mg tablet Where to Get Your Medications These medications were sent to [facility] - [place], [place] - [facility] [address] [place] [address] [place] [address] [facility] [place] [address] amLODIPine 5 mg tablet nicotine 14 mg/24 hr patch spironolactone 25 mg tablet warfarin 5 mg tablet Jaret has No Known Allergies. Disposition: Home-Health Care Sv (more content not included)... [facility] 03-21-2024 Note Pharmacy Consult for Warfarin (Coumadin) Management - Daily Progress Note Jaret Grajeda is a 63 y.o. male admitted for Pulmonary embolism without acute cor pulmonale, unspecified chronicity, unspecified pulmonary embolism type (CMS/HCC). Pharmacy was consulted warfarin dosing and monitoring for PE with goal INR 2-3. Patient has a past medical history of Anemia, unspecified, Cancer of upper lobe of left lung (CMS/HCC), History of transfusion (07/2022), and Hypertension. NEW START Labs INR Results from last 7 days Lab Units 03/21/24 0635 03/20/24 0530 03/19/24 0445 03/18/24 0434 03/17/24 0906 03/16/24 1042 PROTIME Seconds 23.3* 17.3* 15.4* 14.6 13.6 13.8 INR 2.11* 1.43* 1.22* 1.14* 1.04 1.06 Hgb/Hct/Plt: Results from last 7 days Lab Units 03/21/24 0635 03/20/24 0529 03/19/24 0445 03/18/24 0434 03/17/24 0614 03/16/24 0748 03/15/24 0535 HEMOGLOBIN g/dL 8.2* 7.9* 8.2* 8.0* 8.3* 7.7* 8.0* HEMATOCRIT % 25.1* 24.9* 25.6* 24.4* 25.6* 23.6* 25.5* PLATELETS AUTO 10*3/uL 276 246 [phone] Warfarin Therapy Current regimen: dose per INR Bridging: heparin drip Interacting medications: APAP Dosing History During Current Admission Date INR Dose (mg) 03/17 1.04 5 mg 03/18 1.14 5 mg 03/19 1.22 7.5 mg 03/20 1.43 7.5 mg 03/21 2.11 5 mg Assessment and Plan Patient's INR today 2.11 is Therapeutic. Hemoglobin/hematocrit/platelet stable. Give warfarin 5 mg today. INR increased by 0.5 from yesterday. Monitor for s/sx of bleeding including epistaxis, hematuria, unusual bruising, hemoptysis, hematochezia as well as s/sx of stroke including impaired speech, unilateral paralysis, blurry vision. Pharmacy will continue to monitor the patient and adjust therapy as needed. Thanks for the consult. Jah Pierce, PharmD 03/21/24 [facility] 03-20-2024 Note Occupational Therapy Occupational Therapy Treatment Patient Name: Jaret Grajeda : 1960 Today's Date: 03/20/2024 Problem List Patient Active Problem List Diagnosis Lung nodule Primary adenocarcinoma of left lung (CMS/HCC) Tobacco use Pulmonary embolism without acute cor pulmonale, unspecified chronicity, unspecified pulmonary embolism type (CMS/HCC) Alcohol withdrawal syndrome (CMS/HCC) Elevated liver enzymes Hyperosmolar hyponatremia Hypokalemia due to loss of potassium Syncope due to sick sinus syndrome (CMS/HCC) Pneumonia of left lower lobe due to infectious organism Adrenal mass (CMS/HCC) Alcohol abuse 03/20/24 0956 Time Calculation Start Time 0956 Stop Time 1013 Time Calculation (min) 17 min Assessment/Plan *OTR consulted OTR of Pt. Level of function* 03/20/24 0956 OT Last Visit OT Received On 03/20/24 General Subjective Pt was supine in bed, agreed to Tx Treatment Duration (min) 17 Minutes Response to Previous Treatment Patient with no complaints from previous session Family/Caregiver Present No Precautions Post-Surgical Precautions IV, telemetry Pain Assessment Pain Assessment No/denies pain Cognition Overall Cognitive Status WFL General Assessment Hearing Intact Skin Integrity dressing mid/low back d/t bone marrow biopsy earlier today Grooming Grooming Level of Assistance Close supervision Grooming Where Assessed Standing sink side Grooming Comments Pt was able to stand at sink and complete face washing/Oral hygiene UE Bathing UE Bathing Level of Assistance Contact guard;Setup UE Bathing Where Assessed Standing sink side UE Bathing Comments Pt showed ability to complete UE washing with no LOB LE Bathing LE Bathing Level of Assistance Setup;Close supervision LE Bathing Where Assessed Standing sink side LE Bathing Comments Pt was able to doff pants to allow for LE danyell area cleaning UE Dressing UE Dressing Level of Assistance Setup;Close supervision UE Dressing Where Assessed Edge of bed UE Dressing Comments Pt was able to don/doff gown. Assistance needed for Line management LE Dressing LE Dressing Yes Pants Level of Assistance Close supervision LE Dressing Where Assessed Edge of bed LE Dressing Comments Pt was able to don/doff pants while seated EOB Functional Standing Tolerance Time ~13 Min Activity Sink side grooming Functional Standing Tolerance Comments Pt showed good balance this date, No LOB noted Static Sitting Balance Static Sitting-Balance Support Feet supported Static Sitting-Level of Assistance Independent Static Sitting-Comment/Number of Minutes No concerns with sitting balance Static Standing Balance Static Standing-Balance Support No upper extremity supported Static Standing-Level of Assistance Distant supervision Static Standing-Comment/Number of Minutes Pt was able to stand at sink with no concerns with balance Dynamic Standing Balance Dynamic Standing-Balance Support No upper extremity supported Dynamic Standing-Balance Forward lean;Lateral lean;Reaching across midline;Reaching for weighted objects Dynamic Standing Balance-Level of Assistance Distant supervision Dynamic Standing-Comments Pt was able to stand at sink and reach/wash UE with no concerns Bed Mobility Bed Mobility Yes Bed Mobility 1 Bed Mobility From 1 Supine Bed Mobility Type 1 To Bed Mobility to 1 Short sit Level of Assistance 1 Independent Bed Mobility Comments 1 Pt showed IND with bed mobility Bed Mobility 2 Bed Mobility From 2 Short sit Bed Mobility Type 2 To Bed Mobility to 2 Supine Level of Assistance 2 Independent Bed Mobility Comments 2 Pt was able to return to bed IND Transfers Transfer Yes Transfer 1 Transfer From 1 Bed;Sit Transfer Type 1 To and from Transfer to 1 Stand Technique 1 Sit to stand;Stand to sit Transfer Device 1 none Transfer Level of Assistance 1 Independent Trials/Comments 1 Pt was able to transfer to sink for activity and return to EOB with help of IV lines Activity Tolerance Ambulation comments EOB->sink->EOB Endurance Stage III Stage III (METs 2.0-3.0) - Sitting to Standing 10-20 mins Activity Tolerance Comments Pt showed increased IND this date, being able to complete full activity while standing. Pt showed no LOB/SOB this date OT Assessment OT Impairments Decreased safe judgment during ADL;Decreased endurance OT Assessment/TEREZA Summary Pt showed increased IND this date, being able to complete transfers and functional tasks with no LOB/SOB Prognosis Good Evaluation/Treatment Tolerance Patient tolerated treatment well Medical Staff Made Aware Yes Strengths Ability to acquire knowledge;Attitude of self;Capable of completing ADLs semi/independent;Coping skills;Support and attitude of living partners;Support of extended family/friends Barriers to Discharge Comorbidities;Premorbid level of function OT Education/Comments (more content not included)... [facility] 03-20-2024 Note Hospital Medicine Daily Progress Note - 03/20/2024 8:38 AM; Room: [address] [place] [address] Admission: 03/13/2024 10:21 PM; Length of stay: 7 days THE HOSPITALIST TEAM PREFERS TO USE [employer] CHAT FOR NON-URGENT COMMUNICATION 7AM-7PM. IF I DO NOT RESPOND WITHIN 20 MINUTES OR URGENT MATTERS, PLEASE CALL THROUGH THE BLEACH MIXER. FROM 7PM-7AM, PLEASE PAGE [phone](COVR). Code Status: DNR CC-A Barriers to Discharge: heparin to [facility] bridge Expected Discharge Date: Tuesday Discharge Destination: home Overview Patient is seen for evaluation and management of pulmonary embolism, pneumonia of left lower lobe, and adrenal mass. Subjective Patient seen and examined. Mild back pain, otherwise no acute complaints. Pending therapeutic INR Physical Exam Visit Vitals BP 148/64 (BP Location: Right arm, Patient Position: Sitting) Pulse 87 Temp 36.7 ???C (98.1 ???F) (Temporal) Resp 22 Intake/Output Summary (Last 24 hours) at 03/20/2024 0838 Last data filed at 03/20/2024 0810 Gross per 24 hour Intake 300 ml Output 1900 ml Net -1600 ml Estimated body mass index is 22.45 kg/m??? as calculated from the following: Height as of this encounter: 1.753 m (5' 9 ). Weight as of this encounter: 68.9 kg (152 lb). Constitutional: NAD, AOx3 Eyes: EOMI, normal conjunctiva Mouth: Moist, no lesions CV: RRR, normal S1-S2, no murmurs Resp: CTA, no crackles or wheezing Abd: Soft, non-tender, mild distension Extremities: No swelling, 2+ distal pulses Skin : Warm, dry Neuro: AOx3, no focal deficits Psych: Appropriate mood and affect Overall unchanged Active Inpatient Problems Principal Problem: Pulmonary embolism without acute cor pulmonale, unspecified chronicity, unspecified pulmonary embolism type (CMS/HCC) Active Problems: Pneumonia of left lower lobe due to infectious organism Adrenal mass (CMS/HCC) Alcohol abuse Assessment and Plan Pulmonary embolism -No heart strain or hemodynamic compromise -Has been doing well on RA -Continue heparin, bridge to WF -- I spoke with family regarding Lovenox injections as a bridge instead but they did not feel comfortable with this. They would prefer staying here until bridge complete -Medicare will not cover DOAC ($600+ monthly) and he will need lifelong AC CAP of LLL -Completed IV azithromycin 500 mg and IV Rocephin 2 g for 3 days beginning on 03/13 -Will need Pulm outpatient Adrenal mass H/o lung adenocarcinoma stage 1B -CTAP 03/14 shows Heterogeneously enhancing, centrally necrotic left adrenal mass measuring 6.1 x 4.2 cm, which is new in comparison with previous CT from July 2022 -Clinical picture highly suggestive of metastatic disease -HemOnc consulted, obtained biopsy. Physiologic workup pending Normocytic anemia -Required transfusion on admission but no s/sx bleeding -Likely ACD based on anemia panel, RCI <2% -It was recommend to consult GI to r/o GIB, no plans for intervention at this time -f/u bone marrow bx results Hypokalemia -Mg wnl -Replace prn HTN Hyponatremia -Cut back on aldactone -amlodipine 5 VTE Prophylaxis: IV heparin Scheduled Meds amLODIPine, 5 mg, oral, Daily calcium, 500 mg, oral, BID with meals metoprolol succinate XL, 50 mg, oral, Daily pantoprazole, 40 mg, oral, Daily potassium chloride CR, 20 mEq, oral, q1h spironolactone, 12.5 mg, oral, Daily warfarin, 7.5 mg, oral, Once warfarin dosing, 1 each, Does not apply, RX Placeholder heparin, 0-28 Units/kg/hr, Last Rate: 25 Units/kg/hr (03/20/24 0751) Pertinent Investigations Hematology: Results from last 7 days Lab Units 03/20/24 0530 03/20/24 0529 03/19/24 0445 WBC AUTO 10*3/uL -- 7.26 9.11 HEMOGLOBIN g/dL -- 7.9* 8.2* HEMATOCRIT % -- 24.9* 25.6* MCV fL -- 89.9 91.4 PLATELETS AUTO 10*3/uL -- 246 214 INR 1.43* -- 1.22* Chemistry: Results from last 7 days Lab Units 03/20/2452903/19/2444403/18/2443303/14/24 1531 03/13/24 2331 SODIUM mmol/L 130* 128* 129* < > 131* POTASSIUM mmol/L 3.3* 3.8 4.1 < > 3.4* CHLORIDE mmol/L 98 99 100 < > 105 CO2 mmol/L 24 23 23 < > 20* BUN mg/dL 6* 6* 7 < > 7 CREATININE mg/dL 0.68* 0.67* 0.66* < > 0.91 GLUCOSE mg/dL 76 84 88 < > 90 MAGNESIUM mg/dL -- -- -- -- 2.2 CALCIUM mg/dL 8.1* 7.9* 7.9* < > 7.6* PHOSPHORUS mg/dL -- -- -- -- 3.3 < > = values in this interval not displayed. Results from last 7 days Lab Units 03/20/2452903/19/2444403/18/2443303/14/24 1531 03/13/24 2331 AST U/L 25 27 26 < > 46* ALT U/L 11 13 16 < > 21 ALK PHOS U/L 96 91 81 < > 85 BILIRUBIN TOTAL mg/dL 0.6 0.7 0.7 < > 0.7 BILIRUBIN DIRECT mg/dL -- -- -- -- 0.2 < > = values in this interval not displayed. Results from last 7 days Lab Units 03/19/24 0718 POCT GLUCOSE mg/dL 122* Historical Values: (Includes values prior to this admission) Lab Results Component Value Date CORTISOL 6.3 03/15/2024 CORTISOL 11.8 (H) 03/14/2024 Lab Results Component Value Date VIT (more content not included)... [facility] 03-19-2024 Note Physical Therapy Physical Therapy Treatment Patient Name: Jaret Grajeda : 1960 Today's Date: 03/19/2024 Patient Active Problem List Diagnosis Lung nodule Primary adenocarcinoma of left lung (CMS/HCC) Tobacco use Pulmonary embolism without acute cor pulmonale, unspecified chronicity, unspecified pulmonary embolism type (CMS/HCC) Alcohol withdrawal syndrome (CMS/HCC) Elevated liver enzymes Hyperosmolar hyponatremia Hypokalemia due to loss of potassium Syncope due to sick sinus syndrome (CMS/HCC) Pneumonia of left lower lobe due to infectious organism Adrenal mass (CMS/HCC) Alcohol abuse Objective General Visit Information: PT Last Visit PT Received On: 03/19/24 General Subjective: Pt. seen bedside for PT session this p.m. Upon entry, pt in bed and states I am so tired . Pt. is agreeable to activities as able, but defers sitting in bedside chair at end of session. RN june session. Activity Tolerance Activity Tolerance Ambulation comments: Pt ambulates into hallway then returns to room (~30'x2). He ambulates with cane and SBA. Endurance: Stage III Activity Tolerance Comments: Pt exhibits increased fatigue with increased activities, but no SOB. Vitals remains WNLs throughout. Precautions Precautions Post-Surgical Precautions: IV, telemetry Pain Pain Assessment Pain Assessment: No/denies pain Cognition Cognition Overall Cognitive Status: Within Functional Limits Arousal/Alertness: Appropriate responses to stimuli Orientation Level: Oriented X4 Following Commands: Follows multistep commands with increased time Safety Judgment: Good awareness of safety precautions Awareness of Errors: Good awareness of errors made Deficits: Fully aware of deficits Attention Span: Appears intact Memory: Appears intact Problem Solving: Able to problem solve independently Communication: Intact General Assessment General Assessment Skin Integrity: dressing mid/low back d/t bone marrow biopsy earlier today Static Sitting Balance Static Sitting Balance Static Sitting-Balance Support: No upper extremity supported, Feet supported Static Sitting-Level of Assistance: Independent Static Sitting-Comment/Number of Minutes: at EOB Dynamic Sitting Balance Dynamic Sitting Balance Dynamic Sitting-Balance Support: Right upper extremity supported, Left upper extremity supported, Feet supported Dynamic Sitting Balance-Level of Assistance: Independent Dynamic Sitting-Comments: scooting at EOB Static Standing Balance Static Standing Balance Static Standing-Balance Support: Right upper extremity supported, With device (with st cane) Static Standing-Level of Assistance: Close supervision Static Standing-Comment/Number of Minutes: SBA for overall safety Dynamic Standing Balance Dynamic Standing Balance Dynamic Standing-Balance Support: Right upper extremity supported, With device (with st cane) Dynamic Standing Balance-Level of Assistance: Close supervision Dynamic Standing-Comments: SBA for overall safety Treatment: Therapeutic Exercise Therapeutic Exercise Activity 1: BLE (AROM) ankle pumps, LAQs and marches x 10 reps. ea. while seated EOB. Therapeutic Activity Therapeutic Activity Time Entry: 15 Balance/Neuromuscular Re-Education Balance/Neuromuscular Re-Education Activity 1: Prolonged stand (~2-3 mins) at EOB for use of urinal. SBA for overall safety. Balance/Neuromuscular Re-Education Activity 2: Prolonged sitting EOB (~4 mins) for BLE ther. ex. Pt uses UEs on bed for stability. Ambulation Ambulation: Yes Ambulation 1 Surface 1: Level tile Device 1: Single point cane Assistance 1: Close supervision Quality of Gait 1: Fwd flexed posture. Slow ambulatory pace. Increased fatigue noted with increased distance. Mild instability with increased fatigue, but no LOB. Comments/Distance (ft) 1: ~30'x2 Stairs Stairs: No Bed Mobility Bed Mobility: Yes Bed Mobility 1 Bed Mobility From 1: Supine Bed Mobility Type 1: To and from Bed Mobility to 1: Short sit Level of Assistance 1: Distant supervision Bed Mobility Comments 1: Pt performs supine to sit mobility/transfer 2x during session. Transfers Transfer: Yes Transfer 1 Transfer From 1: Sit Transfer Type 1: To and from Transfer to 1: Stand, Bed Transfer Device 1: straight cane Transfer Level of Assistance 1: Close supervision Trials/Comments 1: SBA for overall safety. Pt performs 2 sit to stands from EOB during session. Outcome Assessments 6 Clicks (Mobility) Help from another person turning from your back to your side while in a flat bed without using bedrails: None Help from another person moving from lying on your back to sitting on the side of a flat bed without using bedrails: None Help from another person moving to and from a bed to a chair (including a wheelchair): A little Help from another person standing up from a chair using yo (more content not included)... [facility] 03-19-2024 Note Pharmacy Consult for Warfarin (Coumadin) Management - Daily Progress Note Jaret Grajeda is a 63 y.o. male admitted for Pulmonary embolism without acute cor pulmonale, unspecified chronicity, unspecified pulmonary embolism type (CMS/HCC). Pharmacy was consulted warfarin dosing and monitoring for PE with goal INR 2-3. Patient has a past medical history of Anemia, unspecified, Cancer of upper lobe of left lung (CMS/HCC), History of transfusion (07/2022), and Hypertension. Home regimen NEW [facility] Labs INR Results from last 7 days Lab Units 03/19/24 0445 03/18/24 0434 03/17/24 0906 03/16/24 1042 03/13/24 2331 PROTIME Seconds 15.4* 14.6 13.6 13.8 13.8 INR 1.22* 1.14* 1.04 1.06 1.06 Hgb/Hct/Plt: Results from last 7 days Lab Units 03/19/24 0445 03/18/24 0434 03/17/24 0614 03/16/24 0748 03/15/24 0535 03/14/24 0534 03/13/24 2331 HEMOGLOBIN g/dL 8.2* 8.0* 8.3* 7.7* 8.0* 6.3* 6.6* HEMATOCRIT % 25.6* 24.4* 25.6* 23.6* 25.5* 19.9* 20.8* PLATELETS AUTO 10*3/uL 214 238 239 216 212 247 248 Warfarin Therapy Current regimen: IV heparin (therapeutic) Interacting medications: IV azithromycin was discontinued 03/16 Dosing History During Current Admission Date INR Dose (mg) 03/17 1.04 5 mg 03/18 1.14 5 mg 03/19 1.22 See plan Assessment and Plan Patient's INR today 1.22 is Subtherapeutic. Hemoglobin/hematocrit/platelet stable. Give warfarin 7.5 mg today. Per progress note, patient is likely to be discharged on warfarin due to insurance not covering direct oral acting anticoagulants. Monitor for s/sx of bleeding including epistaxis, hematuria, unusual bruising, hemoptysis, hematochezia as well as s/sx of stroke including impaired speech, unilateral paralysis, blurry vision. Pharmacy will continue to monitor the patient and adjust therapy as needed. Thanks for the consult. Beth Meza, PharmD, [facility] 03-19-2024 Note Sedation Preparation Pre Procedure Evaluation Pre Procedure Evaluation: H&P was reviewed and the patient was examined. No change has occurred in the patient's condition since the H&P has been completed. ASA Score ASA: 2 Mallampati Mallampati: II Informed Consent Sedation Plan and Risks Explained: Patient Registry Data Cath PCI Version 5 Indication(s) for Assistant Speech Language Pathologist Visit: Other [facility] 03-19-2024 Note Occupational Therapy Spoke with RN who states that patient is getting ready to leave floor for bone marrow biopsy. Will continue to follow and treat as appropriate. Check no charge. [facility] 03-19-2024 Note Hospital Medicine Daily Progress Note - 03/19/2024 7:06 AM; Room: [address] [place] [address] Admission: 03/13/2024 10:21 PM; Length of stay: 6 days THE HOSPITALIST TEAM PREFERS TO USE [employer] CHAT FOR NON-URGENT COMMUNICATION 7AM-7PM. IF I DO NOT RESPOND WITHIN 20 MINUTES OR URGENT MATTERS, PLEASE CALL THROUGH THE BLEACH MIXER. FROM 7PM-7AM, PLEASE PAGE [phone](COVR). Code Status: DNR CC-A Barriers to Discharge: heparin to [facility]F bridge Expected Discharge Date: Tuesday Discharge Destination: home Overview Patient is seen for evaluation and management of pulmonary embolism, pneumonia of left lower lobe, and adrenal mass. Subjective Patient seen and examined. Did well with BMBx today. Continue bridging to WF. Family at bedside, all questions answered Physical Exam Visit Vitals BP 153/89 (BP Location: Right arm, Patient Position: Lying) Pulse 92 Temp 37.2 ???C (99 ???F) (Temporal) Resp 20 Intake/Output Summary (Last 24 hours) at 03/19/2024 0706 Last data filed at 03/19/2024 0006 Gross per 24 hour Intake 1440 ml Output 1800 ml Net -360 ml Estimated body mass index is 22.33 kg/m??? as calculated from the following: Height as of this encounter: 1.753 m (5' 9 ). Weight as of this encounter: 68.6 kg (151 lb 3.2 oz). Constitutional: NAD, AOx3 Eyes: EOMI, normal conjunctiva Mouth: Moist, no lesions CV: RRR, normal S1-S2, no murmurs Resp: CTA, no crackles or wheezing Abd: Soft, non-tender, mild distension Extremities: No swelling, 2+ distal pulses Skin : Warm, dry Neuro: AOx3, no focal deficits Psych: Appropriate mood and affect Overall unchanged Active Inpatient Problems Principal Problem: Pulmonary embolism without acute cor pulmonale, unspecified chronicity, unspecified pulmonary embolism type (CMS/HCC) Active Problems: Pneumonia of left lower lobe due to infectious organism Adrenal mass (CMS/HCC) Alcohol abuse Assessment and Plan Pulmonary embolism -No heart strain or hemodynamic compromise -Has been doing well on RA -Continue heparin, bridge to WF -Medicare will not cover DOAC ($600+ monthly) and he will need lifelong AC CAP of LLL -Completed IV azithromycin 500 mg and IV Rocephin 2 g for 3 days beginning on 03/13 -Will need Pulm outpatient Adrenal mass H/o lung adenocarcinoma stage 1B -CTAP 03/14 shows Heterogeneously enhancing, centrally necrotic left adrenal mass measuring 6.1 x 4.2 cm, which is new in comparison with previous CT from July 2022 -Clinical picture highly suggestive of metastatic disease -HemOnc consulted, obtained biopsy. Physiologic workup pending Normocytic anemia -Required transfusion on admission but no s/sx bleeding -Likely ACD based on anemia panel, RCI <2% -It was recommend to consult GI to r/o GIB, no plans for intervention at this time -f/u bone marrow bx results Hypokalemia -Mg wnl -Replace prn HTN Hyponatremia -Cut back on aldactone -amlodipine 5 VTE Prophylaxis: IV heparin Scheduled Meds amLODIPine, 5 mg, oral, Daily calcium, 500 mg, oral, BID with meals metoprolol succinate XL, 50 mg, oral, Daily pantoprazole, 40 mg, oral, Daily spironolactone, 12.5 mg, oral, Daily warfarin dosing, 1 each, Does not apply, RX Placeholder [Held by provider] heparin, 0-28 Units/kg/hr, Last Rate: 24 Units/kg/hr (03/19/24 0006) Pertinent Investigations Hematology: Results from last 7 days Lab Units 03/19/24 0445 03/18/24 0434 03/17/24 0906 WBC AUTO 10*3/uL 9.11 9.19 -- HEMOGLOBIN g/dL 8.2* 8.0* -- HEMATOCRIT % 25.6* 24.4* -- MCV fL 91.4 89.4 -- PLATELETS AUTO 10*3/uL 214 238 -- INR -- 1.14* 1.04 Chemistry: Results from last 7 days Lab Units 03/19/2444403/18/2443303/17/2461303/14/24 1531 03/13/24 2331 SODIUM mmol/L 128* 129* 133* < > 131* POTASSIUM mmol/L 3.8 4.1 3.2* < > 3.4* CHLORIDE mmol/L 99 100 102 < > 105 CO2 mmol/L 23 23 25 < > 20* BUN mg/dL 6* 7 7 < > 7 CREATININE mg/dL 0.67* 0.66* 0.75 < > 0.91 GLUCOSE mg/dL 84 88 88 < > 90 MAGNESIUM mg/dL -- -- -- -- 2.2 CALCIUM mg/dL 7.9* 7.9* 8.0* < > 7.6* PHOSPHORUS mg/dL -- -- -- -- 3.3 < > = values in this interval not displayed. Results from last 7 days Lab Units 03/19/2444403/18/2443303/17/2461303/14/24 1531 03/13/24 2331 AST U/L 27 26 32 < > 46* ALT U/L 13 16 18 < > 21 ALK PHOS U/L 91 81 85 < > 85 BILIRUBIN TOTAL mg/dL 0.7 0.7 0.7 < > 0.7 BILIRUBIN DIRECT mg/dL -- -- -- -- 0.2 < > = values in this interval not displayed. Historical Values: (Includes values prior to this admission) Lab Results Component Value Date CORTISOL 6.3 03/15/2024 CORTISOL 11.8 (H) 03/14/2024 Lab Results Component Value Date [id number] 03/13/2024 IRON 33 (L) 03/13/2024 TIBC 153 (L) 03/13/[address] guided percutaneous adrenal glands Narrative: CLINICAL INDICATION: Left adrenal gland mass. COMPARISON: CT scan 03/14/2024 TECHNIQUE: Procedure performed by Interventional Radiologist Pj (more content not included)... [facility] 03-18-2024 Note Pharmacy Dosing Serv ice - Warfarin (Coumadin) Management Jaret Grajeda is a 63 y.o. male admitted for Pulmonary embolism without acute cor pulmonale, unspecified chronicity, unspecified pulmonary embolism type (CMS/HCC). Pharmacy was consulted warfarin dosing and monitoring for PE with goal INR 2-3. Patient has a past medical history of Anemia, unspecified, Cancer of upper lobe of left lung (CMS/HCC), History of transfusion (07/2022), and Hypertension. Home regimen [facility] INR Results from last 7 days Lab Units 03/18/24 0434 03/17/24 0906 03/16/24 1042 03/13/24 2331 PROTIME Seconds 14.6 13.6 13.8 13.8 INR 1.14* 1.04 1.06 1.06 Hgb/Hct/Plt: Results from last 7 days Lab Units 03/18/24 0434 03/17/24 0614 03/16/24 0748 03/15/24 0535 03/14/24 0534 03/13/24 2331 HEMOGLOBIN g/dL 8.0* 8.3* 7.7* 8.0* 6.3* 6.6* HEMATOCRIT % 24.4* 25.6* 23.6* 25.5* 19.9* 20.8* PLATELETS AUTO 10*3/uL 238 239 216 212 247 248 Warfarin Therapy Current regimen: Dose per INR Bridging: Heparin Interacting medications: APAP, heparin (bridge) Dosing History During Current Admission Date INR Dose (mg) 03/17 1.04 5 03/18 1.14 See Plan Assessment and Plan Patient's INR of 1.14 today is Subtherapeutic. Hemoglobin/hematocrit/platelet stable. Continue to dose per INR for new start warfarin Give warfarin 5 mg today. Monitor for s/sx of bleeding including epistaxis, hematuria, unusual bruising, hemoptysis, hematochezia as well as s/sx of stroke including impaired speech, unilateral paralysis, blurry vision. Pharmacy will continue to monitor the patient and adjust therapy as needed. Thank you for the consult. Please do not hesitate to contact a pharmacist with any questions. Henrik Jason, EstrellitaD, BCPS 03/18/2024 [facility] 03-18-2024 Note Hospital Medicine Daily Progress Note - 03/18/2024 7:29 AM; Room: [address] [place] [address] Admission: 03/13/2024 10:21 PM; Length of stay: 5 days THE HOSPITALIST TEAM PREFERS TO USE [employer] FOR NON-URGENT COMMUNICATION 7AM-7PM. IF I DO NOT RESPOND WITHIN 20 MINUTES OR URGENT MATTERS, PLEASE CALL THROUGH THE BLEACH MIXER. FROM 7PM-7AM, PLEASE PAGE [phone](COVR). Code Status: DNR CC-A Barriers to Discharge: heparin to WF bridge, bone marrow bx Expected Discharge Date: Tuesday Discharge Destination: home Overview Patient is seen for evaluation and management of pulmonary embolism, pneumonia of left lower lobe, and adrenal mass. Subjective Patient seen and examined. No acute complaints, pending bmbx tomorrow. Bridging to WF Physical Exam Visit Vitals BP (!) 133/94 (BP Location: Right arm, Patient Position: Lying) Pulse 77 Temp 36.7 ???C (98.1 ???F) (Temporal) Resp 18 Intake/Output Summary (Last 24 hours) at 03/18/2024 0729 Last data filed at 03/17/2024 1700 Gross per 24 hour Intake 360 ml Output 500 ml Net -140 ml Estimated body mass index is 21.66 kg/m??? as calculated from the following: Height as of this encounter: 1.753 m (5' 9 ). Weight as of this encounter: 66.5 kg (146 lb 11.2 oz). Constitutional: NAD, AOx3 Eyes: EOMI, normal conjunctiva Mouth: Moist, no lesions CV: RRR, normal S1-S2, no murmurs Resp: CTA, no crackles or wheezing Abd: Soft, non-tender, mild distension Extremities: No swelling, 2+ distal pulses Skin : Warm, dry Neuro: AOx3, no focal deficits Psych: Appropriate mood and affect Overall unchanged Active Inpatient Problems Principal Problem: Pulmonary embolism without acute cor pulmonale, unspecified chronicity, unspecified pulmonary embolism type (CMS/HCC) Active Problems: Pneumonia of left lower lobe due to infectious organism Adrenal mass (CMS/HCC) Alcohol abuse Assessment and Plan Pulmonary embolism -No heart strain or hemodynamic compromise -Has been doing well on RA -Continue heparin, bridge to WF -Medicare will not cover DOAC ($600+ monthly) and he will need lifelong AC -Will hold WF tomorrow AM for BMBx if IR recommends CAP of LLL -Completed IV azithromycin 500 mg and IV Rocephin 2 g for 3 days beginning on 03/13 -Will need Pulm outpatient Adrenal mass H/o lung adenocarcinoma stage 1B -CTAP 03/14 shows Heterogeneously enhancing, centrally necrotic left adrenal mass measuring 6.1 x 4.2 cm, which is new in comparison with previous CT from July 2022 -Clinical picture highly suggestive of metastatic disease -HemOnc consulted, obtained biopsy yesterday. Physiologic workup pending -Will also be pursuing bone marrow bx Normocytic anemia -Required transfusion on admission but no s/sx bleeding -Likely ACD based on anemia panel, RCI <2% -It was recommend to consult GI to r/o GIB, no plans for intervention at this time Hypokalemia -Mg wnl -Replace prn HTN Hyponatremia -Cut back on aldactone -amlodipine 5 VTE Prophylaxis: IV heparin Scheduled Meds calcium, 500 mg, oral, BID with meals metoprolol succinate XL, 50 mg, oral, Daily pantoprazole, 40 mg, oral, Daily spironolactone, 25 mg, oral, Daily warfarin dosing, 1 each, Does not apply, RX Placeholder heparin, 0-28 Units/kg/hr, Last Rate: 24 Units/kg/hr (03/17/242214) Pertinent Investigations Hematology: Results from last 7 days Lab Units 03/18/24 0434 03/17/24 0906 03/17/24 0614 WBC AUTO 10*3/uL 9.19 -- 6.96 HEMOGLOBIN g/dL 8.0* -- 8.3* HEMATOCRIT % 24.4* -- 25.6* MCV fL 89.4 -- 90.5 PLATELETS AUTO 10*3/uL 238 -- 239 INR 1.14* 1.04 -- Chemistry: Results from last 7 days Lab Units 03/18/24 0434 03/17/24 0614 03/16/24 0748 03/14/24 1531 03/13/24 2331 SODIUM mmol/L 129* 133* 132* < > 131* POTASSIUM mmol/L 4.1 3.2* 3.2* < > 3.4* CHLORIDE mmol/L 100 102 103 < > 105 CO2 mmol/L 23 25 24 < > 20* BUN mg/dL 7 7 6* < > 7 CREATININE mg/dL 0.66* 0.75 0.74 < > 0.91 GLUCOSE mg/dL 88 88 84 < > 90 MAGNESIUM mg/dL -- -- -- -- 2.2 CALCIUM mg/dL 7.9* 8.0* 7.7* < > 7.6* PHOSPHORUS mg/dL -- -- -- -- 3.3 < > = values in this interval not displayed. Results from last 7 days Lab Units 03/18/24 0434 03/17/24 0614 03/16/24 0748 03/14/24 1531 03/13/24 2331 AST U/L 26 32 30 < > 46* ALT U/L 16 18 16 < > 21 ALK PHOS U/L 81 85 77 < > 85 BILIRUBIN TOTAL mg/dL 0.7 0.7 0.6 < > 0.7 BILIRUBIN DIRECT mg/dL -- -- -- -- 0.2 < > = values in this interval not displayed. Historical Values: (Includes values prior to this admission) Lab Results Component Value Date CORTISOL 6.3 03/15/2024 CORTISOL 11.8 (H) 03/14/2024 Lab Results Component Value Date [id number] 585 03/13/2024 IRON 33 (L) 03/13/2024 TIBC 153 (L) 03/13/[address] guided percutaneous adrenal glands Narrative: CLINICAL INDICATION: Left adrenal gland mass. COMPARISON: CT scan 03/14/2024 TECHNIQUE: Procedure performed by Interventional Radiologist Johanny (more content not included)... [facility] 03-17-2024 Note Pharmacy Consult for Warfarin (Coumadin) Management - Daily Progress Note Jaret Grajeda is a 63 y.o. male admitted for Pulmonary embolism without acute cor pulmonale, unspecified chronicity, unspecified pulmonary embolism type (CMS/HCC). Pharmacy was consulted warfarin dosing and monitoring for PE with goal INR 2-3. Patient has a past medical history of Anemia, unspecified, Cancer of upper lobe of left lung (CMS/HCC), History of transfusion (07/2022), and Hypertension. [facility] INR Results from last 7 days Lab Units 03/17/24 0906 03/16/24 1042 03/13/24 2331 PROTIME Seconds 13.6 13.8 13.8 INR 1.04 1.06 1.06 Hgb/Hct/Plt: Results from last 7 days Lab Units 03/17/24 0614 03/16/24 0748 03/15/24 0535 03/14/24 0534 03/13/24 2331 HEMOGLOBIN g/dL 8.3* 7.7* 8.0* 6.3* 6.6* HEMATOCRIT % 25.6* 23.6* 25.5* 19.9* 20.8* PLATELETS AUTO 10*3/uL 239 216 212 247 248 Warfarin Therapy Current regimen: dose per INR Bridging: heparin drip Interacting medications: none Dosing History During Current Admission Date INR Dose (mg) 03/17 1.04 See plan Assessment and Plan Patient's INR today 1.04 is Subtherapeutic. Hemoglobin/hematocrit/platelet stable. Give warfarin 5 mg today. Monitor for s/sx of bleeding including epistaxis, hematuria, unusual bruising, hemoptysis, hematochezia as well as s/sx of stroke including impaired speech, unilateral paralysis, blurry vision. Pharmacy will continue to monitor the patient and adjust therapy as needed. Thanks for the consult. Laly Loco, EstrellitaD [facility] 03-17-2024 Note Hospital Medicine Daily Progress Note - 03/17/2024 8:32 AM; Room: [address] [place] [address] Admission: 03/13/2024 10:21 PM; Length of stay: 4 days THE HOSPITALIST TEAM PREFERS TO USE [employer] CHAT FOR NON-URGENT COMMUNICATION 7AM-7PM. IF I DO NOT RESPOND WITHIN 20 MINUTES OR URGENT MATTERS, PLEASE CALL THROUGH THE BLEACH MIXER. FROM 7PM-7AM, PLEASE PAGE [phone](COVR). Code Status: DNR CC-A Barriers to Discharge: heparin to WF bridge, bone marrow bx Expected Discharge Date: Tuesday Discharge Destination: home Overview Patient is seen for evaluation and management of pulmonary embolism, pneumonia of left lower lobe, and adrenal mass. Subjective Patient seen and examined. Had some pain at biopsy site yesterday but improved after meds. NO recurrence. Doing well today with no acute complaints Physical Exam Visit Vitals BP 153/73 (BP Location: Right arm, Patient Position: Lying) Pulse 64 Temp 36.7 ???C (98.1 ???F) (Temporal) Resp 16 Intake/Output Summary (Last 24 hours) at 03/17/2024 0832 Last data filed at 03/17/2024 0500 Gross per 24 hour Intake 31.46 ml Output 400 ml Net -368.54 ml Estimated body mass index is 21.21 kg/m??? as calculated from the following: Height as of this encounter: 1.753 m (5' 9 ). Weight as of this encounter: 65.1 kg (143 lb 9.6 oz). Constitutional: NAD, AOx3 Eyes: EOMI, normal conjunctiva Mouth: Moist, no lesions CV: RRR, normal S1-S2, no murmurs Resp: CTA, no crackles or wheezing Abd: Soft, non-tender, mild distension Extremities: No swelling, 2+ distal pulses Skin : Warm, dry Neuro: AOx3, no focal deficits Psych: Appropriate mood and affect Active Inpatient Problems Principal Problem: Pulmonary embolism without acute cor pulmonale, unspecified chronicity, unspecified pulmonary embolism type (CMS/HCC) Active Problems: Pneumonia of left lower lobe due to infectious organism Adrenal mass (CMS/HCC) Alcohol abuse Assessment and Plan Pulmonary embolism -No heart strain or hemodynamic compromise -Has been doing well on RA -Continue heparin, bridge to WF -Medicare will not cover DOAC ($600+ monthly) and he will need lifelong AC CAP of LLL -Completed IV azithromycin 500 mg and IV Rocephin 2 g for 3 days beginning on 03/13 -Will need Pulm outpatient Adrenal mass H/o lung adenocarcinoma stage 1B -CTAP 03/14 shows Heterogeneously enhancing, centrally necrotic left adrenal mass measuring 6.1 x 4.2 cm, which is new in comparison with previous CT from July 2022 -Clinical picture highly suggestive of metastatic disease -HemOnc consulted, obtained biopsy yesterday. Physiologic workup pending Will also be pursuing bone marrow bx Normocytic anemia -Required transfusion on admission but no s/sx bleeding -Likely ACD based on anemia panel, RCI <2% -It was recommend to consult GI to r/o GIB, no plans for intervention at this time -Will coordinate for BMBx on Tuesday. -I reached out to IR and HemOnc in group chat regarding anticoagulation with warfarin during bone marrow biopsy. HemOnc asking to coordinate with IR and defer to them for performing procedure, they did recommend to keep patient subtherapeutic. As I do not want to delay discharge if possible, I will start bridging to warfarin and wait for IR recommendations as well. Hypokalemia -Mg wnl -Replace prn VTE Prophylaxis: IV heparin Scheduled Meds calcium, 500 mg, oral, BID with meals metoprolol succinate XL, 50 mg, oral, Daily pantoprazole, 40 mg, oral, Daily spironolactone, 25 mg, oral, Daily heparin, 0-28 Units/kg/hr, Last Rate: 18 Units/kg/hr (03/17/24 0300) Pertinent Investigations Hematology: Results from last 7 days Lab Units 03/17/24 0614 03/16/24 1042 03/16/24 0748 03/14/24 0534 03/13/24 2331 WBC AUTO 10*3/uL 6.96 -- 6.57 < > 7.50 HEMOGLOBIN g/dL 8.3* -- 7.7* < > 6.6* HEMATOCRIT % 25.6* -- 23.6* < > 20.8* MCV fL 90.5 -- 88.1 < > 92.4 PLATELETS AUTO 10*3/uL 239 -- 216 < > 248 INR -- 1.06 -- -- 1.06 < > = values in this interval not displayed. Chemistry: Results from last 7 days Lab Units 03/17/24 0614 03/16/24 0748 03/15/24 0535 03/14/24 1531 03/13/24 2331 SODIUM mmol/L 133* 132* 131* < > 131* POTASSIUM mmol/L 3.2* 3.2* 3.6 < > 3.4* CHLORIDE mmol/L 102 103 105 < > 105 CO2 mmol/L 25 24 21 < > 20* BUN mg/dL 7 6* 5* < > 7 CREATININE mg/dL 0.75 0.74 0.71 < > 0.91 GLUCOSE mg/dL 88 84 92 < > 90 MAGNESIUM mg/dL -- -- -- -- 2.2 CALCIUM mg/dL 8.0* 7.7* 7.7* < > 7.6* PHOSPHORUS mg/dL -- -- -- -- 3.3 < > = values in this interval not displayed. Results from last 7 days Lab Units 03/17/24 0614 03/16/24 0748 03/15/24 0535 03/14/24 1531 03/13/24 2331 AST U/L 32 30 36 < > 46* ALT U/L 18 16 17 < > 21 ALK PHOS U/L 85 77 78 < > 85 BILIRUBIN TOTAL mg/dL 0.7 0.6 0.7 < > 0.7 BILIRUBIN DIRECT mg/dL -- -- -- -- 0.2 < > = values in this interval not displayed. Historical Values: (Includes values prior to this admission) La (more content not included)... [facility] 03-17-2024 Note Gastroenterology Samuel n of Care GI following in the setting of acute on chronic anemia without overt GI bleeding. Hemoglobin this morning remains stable at 8.3 from 7.7, and patient had no bloody bowel movements overnight. Plan: In the absence of overt GI bleeding and stable hemoglobin, no plan for urgent endoscopy. Trend H&H and monitor for overt GI bleeding, transfuse as needed OK for regular diet as tolerated from GI standpoint Remainder of care per primary GI will respectfully sign off; however, we are readily available if additional questions or concerns arise. We will arrange for outpatient EGD and colonoscopy for further evaluation of anemia. [facility] 03-16-2024 Note Case was discussed w ith the Medical Student on 03/16/2024. I examined the patient with the student. I agree with the history, physical, assessment, and plan of care. I discussed the findings and therapeutic plan. I agree with the documentation, except for any updates below. Will pursue adrenal biopsy this afternoon and hold heparin gtt for 12 hrs post-procedure. Will not be able to obtain bone marrow bx until Tuesday due to scheduling. Preferably will get this done prior to discharge. I have started communication with Onc and IR to determine if we can obtain bmbx while patient is being bridged [id number]. Eduardo Cantu MD Hospital Medicine Daily Progress Note - 03/16/2024 9:58 AM; Room: [address] [place] [address] Admission: 03/13/2024 10:21 PM; Length of stay: 3 days THE HOSPITALIST TEAM PREFERS TO USE [employer] FOR NON-URGENT COMMUNICATION 7AM-7PM. IF I DO NOT RESPOND WITHIN 20 MINUTES OR URGENT MATTERS, PLEASE CALL THROUGH THE BLEACH MIXER. FROM 7PM-7AM, PLEASE PAGE [phone](COVR). Code Status: DNR CC-A Barriers to Discharge: adrenal mass workup Expected Discharge Date: Pending Discharge Destination: home Overview Patient is seen for evaluation and management of pulmonary embolism, pneumonia of left lower lobe, and adrenal mass. Subjective Patient is resting comfortably in bed. Patient reports that he does not have chest discomfort, SOB, fevers, chills, nausea, or any additional pains. Patient was informed of adrenal mass and reports understanding of further work up needed. Patient reports understanding of plan which includes lymph node biopsy today and most likely out-patient bone marrow biopsy with [facility]. Patient reports understanding of anticoagulation plan moving forward. Physical Exam Visit Vitals BP 111/84 Pulse 70 Temp 36.1 ???C (97 ???F) (Temporal) Resp 23 Intake/Output Summary (Last 24 hours) at 03/16/2024 0958 Last data filed at 03/16/2024 0635 Gross per 24 hour Intake 594.93 ml Output 425 ml Net 169.93 ml Physical Exam HENT: Head: Normocephalic. Cardiovascular: Rate and Rhythm: Normal rate and regular rhythm. Pulmonary: Breath sounds: Wheezing present. Neurological: General: No focal deficit present. Mental Status: He is alert. Psychiatric: Mood and Affect: Mood normal. Thought Content: Thought content normal. Estimated body mass index is 21.09 kg/m??? as calculated from the following: Height as of this encounter: 1.753 m (5' 9 ). Weight as of this encounter: 64.8 kg (142 lb 12.8 oz). Active Inpatient Problems Principal Problem: Pulmonary embolism without acute cor pulmonale, unspecified chronicity, unspecified pulmonary embolism type (CMS/HCC) Active Problems: Pneumonia of left lower lobe due to infectious organism Adrenal mass (CMS/HCC) Alcohol abuse Assessment and Plan #Pulmonary embolism -Currently holding heparin drip and will plan bridge to warfarin post adrenal gland biopsy #Pneumonia of left lower lobe -Completed IV azithromycin 500 mg and IV Rocephin 2 g for 3 days beginning on 03/13 -Consider pulm consult for workup of COPD #Adrenal mass -CTAP 03/14 shows Heterogeneously enhancing, centrally necrotic left adrenal mass measuring 6.1 x 4.2 cm, which is new in comparison with previous CT from July 2022. This is highly suggestive of adrenal malignancy/metastatic lesion. -CT guided percutaneous adrenal glands biopsy schedule today -CT guided bone marrow biopsy most likely out patient due to scheduling being unavailable for today -Follow up with Dr. Garber at [facility] VTE Prophylaxis: IV heparin Scheduled Meds calcium, 500 mg, oral, BID with meals metoprolol succinate XL, 50 mg, oral, Daily pantoprazole, 40 mg, oral, Daily spironolactone, 25 mg, oral, Daily [Held by provider] heparin, 0-28 Units/kg/hr, Last Rate: 18.966 Units/kg/hr (03/16/24634) Pertinent Investigations Hematology: Results from last 7 days Lab Units 03/16/24 0748 03/15/24 0535 03/14/24 0534 03/13/24 2331 WBC AUTO 10*3/uL 6.57 6.58 < > 7.50 HEMOGLOBIN g/dL 7.7* 8.0* < > 6.6* HEMATOCRIT % 23.6* 25.5* < > 20.8* MCV fL 88.1 91.7 < > 92.4 PLATELETS AUTO 10*3/uL 216 212 < > 248 INR -- -- -- 1.06 < > = values in this interval not displayed. Chemistry: Results from last 7 days Lab Units 03/16/24 0748 03/15/24 0535 03/14/24 15303/13/24 2331 SODIUM mmol/L 132* 131* 127* 131* POTASSIUM mmol/L 3.2* 3.6 3.3* 3.4* CHLORIDE mmol/L 103 105 99 105 CO2 mmol/L 24 21 20* 20* BUN mg/dL 6* 5* 6* 7 CREATININE mg/dL 0.74 0.71 0.88 0.91 GLUCOSE mg/dL 84 92 355* 90 MAGNESIUM mg/dL -- -- -- 2.2 CALCIUM mg/dL 7.7* 7.7* 7.0* 7.6* PHOSPHORUS mg/dL -- -- -- 3.3 Results from last 7 days Lab Units 03/16/24 0748 03/15/24 0535 03/14/24 1531 03/13/24 2331 AST U/L 30 36 40* 46* ALT U/L 16 17 19 21 ALK PHOS U/L 77 78 82 85 BILIRUBIN TOTAL mg/dL 0.6 0.7 0.9 0.7 BILIRUBIN DIRECT mg/dL -- -- -- 0.2 Historical (more content not included)... [facility] 03-16-2024 Note [facility] Teaching GI Ser vice Consult Gastroenterology/Hepatology Progress Note IDENTIFYING DATA PATIENT: Jaret Grajeda ADMIT DATE: 03/13/2024 TIME OF EVALUATION: 03/16/2024 9:14 AM HOSPITAL STAY: LOS: 3 days REASON FOR HOSPITALIZATION: SOB SUBJECTIVE/INTERVAL HISTORY Jaret Grajeda's overnight events were reviewed. Hgb 7.7 from 8.0. Patient resting in bed with eyes closed. OBJECTIVE MEDICATIONS SCHEDULED: @MEDSCURRENTMD@ PRNs: acetaminophen, 650 mg, q6h PRN bisacodyl, 10 mg, Daily PRN cloNIDine, 0.1 mg, TID PRN gabapentin, 300 mg, TID PRN guaiFENesin, 600 mg, BID PRN heparin (porcine), 25 Units/kg, q6h PRN hydrOXYzine pamoate, 25 mg, 4x daily PRN ipratropium-albuteroL, 3 mL, q6h PRN LORazepam, 1 mg, q1h PRN Or LORazepam, 2 mg, q1h PRN Or LORazepam, 3 mg, q1h PRN Or LORazepam, 4 mg, q1h PRN melatonin, 5 mg, Nightly PRN nicotine, 1 patch, Daily PRN ondansetron ODT, 4 mg, q8h PRN Or ondansetron, 4 mg, q6h PRN polyethylene glycol, 17 g, Daily PRN sodium chloride, 10 mL, q8h PRN Physical VITALS: BP 111/84 Pulse 70 Temp 36.1 ???C (97 ???F) (Temporal) Resp 23 Ht 1.753 m (5' 9 ) Wt 64.8 kg (142 lb 12.8 oz) SpO2 97% BMI 21.09 kg/m??? GEN: Eyes closed HEENT: Atraumatic, normocephalic CV: No edema visualized PULM: Respirations even and unlabored ABD: Soft, non-tender, non-distended NEURO: Moves all 4 extremities spontaneously LABS AND IMAGING CBC: Lab Results Component Value Date WBC 6.57 03/16/2024 RBC 2.68 (L) 03/16/2024 HGB 7.7 (L) 03/16/2024 HCT 23.6 (L) 03/16/2024 MCV 88.1 03/16/2024 RDW 18.9 (H) 03/16/2024 PLT 216 03/16/2024 CMP: Lab Results Component Value Date NA 132 (L) 03/16/2024 K 3.2 (L) 03/16/2024 CL 103 03/16/2024 CO2 24 03/16/2024 BUN 6 (L) 03/16/2024 PROT 4.8 (L) 03/16/2024 IMAGING: CT abdomen pelvis w IV contrast 03/14/2024 IMPRESSION: *Heterogeneously enhancing, centrally necrotic left adrenal mass measuring 6.1 x 4.2 cm, which is new in comparison with previous CT from July 2022. This is highly suggestive of adrenal malignancy/metastatic lesion. *Small bilateral pleural effusions. *Groundglass opacities in the left lower lobe concerning for infectious or inflammatory process. *Small amount of pelvic ascites. ASSESSMENT AND PLAN Jaret Grajeda is a 63 y.o. malewith a significant medical history of anemia, congestive heart failure (CHF), hyperlipidemia, hypertension, heavy tobacco and alcohol use, and left upper lobe lung cancer status post radiation (SBRT in 02/2023), who was transferred from [facility] to [facility] for a higher level of care. He initially presented with weakness and hypothermia and was found in a parking lot after a fall. Workup revealed left lower lobe pneumonia, left-sided pulmonary embolism, and a newly identified 6.1 cm heterogeneously enhancing, centrally necrotic left adrenal mass highly suspicious for malignancy. He was started on heparin drip, vancomycin, and Zosyn. His WBC count decreased from 11.9 to 9.0, and an echocardiogram showed normal ejection fraction. The patient is a poor historian, denying significant symptoms but reporting a 10 lb weight loss over the past few months, poor appetite, productive cough without hemoptysis, and lower back pain. He denies acute dyspnea, nausea, vomiting, dizziness, or abdominal pain. His hemoglobin was critically low at 6.3 g/dL, requiring transfusion, and labs showed hypoalbuminemia (2.2 g/dL) and mild transaminitis. Assessment: Acute on chronic anemia without overt GI bleeding History of anemia with current hemoglobin of 6.3 g/dL requiring transfusion. No overt gastrointestinal bleeding symptoms reported. Malnutrition and hypoalbuminemia: Serum albumin of 2.2 g/dL, likely multifactorial due to chronic illness, malignancy, and poor oral intake. Mild transaminitis , resolved Elevated AST/ALT without overt liver disease Pneumonia Adrenal mass Plan: In the absence of overt bleeding and with stable hemoglobin, no urgent indication for endoscopy. Will continue to monitor and consider pending clinical course. Trend H&H and transfuse as needed Monitor for overt bleeding Trend LFT's Medical management per primary. The case will be discussed with the attending physician For Questions please contact us at: [facility] 6 am to 4 pm weekdays in house Phone extension: [phone] 4 pm to 6 am or weekends please contact the flange machine operator to page the fellow simulation educator [facility] 03-16-2024 Note HISTORY: Anemia PROCEDURE: CT guided Bone Marrow Biopsy Dose: Additional Medications: The procedure was performed by Dr. Trotter. Benefits and potential risks of procedure were explained to patient and informed consent was obtained. The patient was brought to the procedure area, and a time out was performed. All elements of maximal sterile barrier technique were followed, including cap, mask, sterile gown, sterile gloves, large sterile sheet, hand hygiene, and 2% chlorhexidine for percutaneous antisepsis. When ultrasound is used, sterile probe cover and sterile gel were employed. The patient's cardiopulmonary status was evaluated and the patient was able for moderate sedation. During the course of the procedure, the patient was sedated with Versed 1 and fentanyl 100 intravenously while being monitored with ECG, blood pressure monitoring, and pulse oximetry by appropriately trained personnel. 14 minutes of [id number] moderate sedation was provided by the same physician. Following the procedure, the patient was recovered according according to the moderate sedation policy. Estimated blood loss was minimal Following appropriate prep and drape and using lidocaine for local anesthesia, a bone marrow aspirate and bone biopsy was performed under CT guidance on the left iliac bone using an [employer] powered bone marrow biopsy system. The bone marrow was obtained, submitted to, an approved by pathology was in attendance. Following this, a bone biopsy was then performed and it too was submitted to pathology. Follow scan showed no evidence of a complicating process. The patient tolerated the procedure well and was sent to recovery in stable condition. IMPRESSION: Successful uncomplicated bone marrow aspirate and bone biopsy performed under CT guidance. Electronically signed: MAURISIO Susie Vldtchristiano [facility] 03-16-2024 Note Attestation signed by Megan Trevizo MD at 03/16/2024 10:46 AM By using the attestations below, the signing clinician agrees that I have read and verify that the documentation has been personally reviewed by me and ensure that the documentation accurately reflects the encounter. As noted by Dr Rousseau GC: I personally saw this patient on the day of the encounter, performed the rosado portion(s) of the service and participated in the management and confirm the resident's documentation. Please note there may be an additional personal documentation from me. Additional Comments: Await tissue diagnosis and bone marrow biopsy and GI work up and questions answered and will follow along Thanks Megan Trevizo MD Inpatient Hematology Oncology Fellow availability Tuesday - 830am-500pm, Tuesday 830am-430pm and Tuesday 830am-1200pm During these hours, Please contact Hematology Oncology Fellow through [email or web address] Chat first For Hematology Oncology needs on weekends and after hours, please page the on-call fellow through the hospital flange machine operator. NEW INPATIENT HEMATOLOGY / ONCOLOGY CONSULT NOTE Patient ID: Jaret Grajeda, 63 y.o. male Requested by: Olivia Mayer DO PCP: Wade Jones MD : 1960 REASON FOR CONSULTATION: New L adrenal met CHIEF COMPLAINT: No chief complaint on file. HISTORY OF PRESENT ILLNESS: Jaret Grajeda is an 63 y.o. male w past medical history of anemia, CHF, hyperlipidemia, hypertension, tobacco use, alcohol use and left upper lobe lung cancer, heavy smoker ( 47 pack yr) s/p SBRT in 02/2023 presented to [facility] after he was found in parking lot hypothermic, and weak. He was found to be suffering from LLL pneumonia, L L PE and new L adrenal met (6.3 cm) at [facility] and was transferred here for further eval of met. Currently on heparin drip, vancomycin and Zosyn. his initial WBCs were 11.9 but decreased to 9.0. Echo shows normal EF. Patient is somewhat poor historian. He denies any symptoms and he states that he does not know what is going on with him. Pt reports weight loss 10 lbs in last few months. Appetite is poor. He also reports productive cough w/o hemoptysis. Denies dyspnea more then baseline. Reports lower back pain. Denies headache, dizziness, nausea and vomiting. Oncologic History 07/2022 Initial Dx based on CT scan Metastatic work up negative ( EBUS, CT scan) 02/2023: SBRT 07/2023: 07/2023 CT scan shows decrease in TRISTEN mass but persistent. Lost followup CT chest 03/14/24: Unavailable, done at outside hospital CT chest 12/2022 Left upper lobe mass which has slightly increased in size when compared to prior study. 2. Additional spiculated right upper lobe nodule which has also slightly increased in size. 3. No evidence of bulky intrathoracic adenopathy. 4. Incompletely characterized 1.1 cm peripherally enhancing lesion in the inferior right hepatic lobe. CT chest 07/2023: Shows decrease in the size of TRISTEN mass to 2.5 cm No adrenal met Anuerysm of descending aorta at [address] abd w contrast : 03/14/2024 Small bilateral pleural effusions. Adjacent compressive atelectasis in the right lower lobe. Groundglass opacities in the left lower lobe. Coronary artery calcifications. 1.1 cm higher attenuation lesion in the inferior right hepatic lobe, incompletely characterized on this study. No additional liver lesions. Gallbladder is contracted. The right adrenal gland, spleen, pancreas, and right kidney are unremarkable. Small left renal stone. Heterogeneously enhancing, centrally necrotic left adrenal mass measuring 6.1 x 4.2 cm, new since previous study. Atherosclerotic disease in the abdominal aorta and iliac vessels. No enlarged abdominal or pelvic lymph nodes. Foci of air in the urinary bladder, which is decompressed. Small amount of ascitic fluid in the pelvis. The small and large bowel are of normal caliber with no evidence of bowel wall thickening. No free intraperitoneal air. Visualized body wall structures are unremarkable. Moderate to severe compression deformity of the L1 vertebral body, which appears chronic. INTERVAL HISTORY Pt reports no major concern. MR brain is negative for metastasis. REVIEW OF SYSTEMS: Complete 10-point ROS is negative except as mentioned in HPI. MEDICAL HISTORY: Past Medical History: Diagnosis Date Anemia, unspecified Cancer of upper lobe of left lung (CMS/HCC) History of transfusion 07/2022 Hypertension SURGICAL HISTORY: Past Surgical History: Procedure Laterality Date APPENDECTOMY LUNG BIOPSY 08/03/2022 TONSILLECTOMY FAMILY HISTORY: Family History Family history unknown: Yes SOCIAL HISTORY: Social History Socioeconomic History Marital status: Single Spouse name: Not on file Number of childre (more content not included)... [facility] 03-15-2024 Note Case was discussed w ith the Medical Student on 03/15/2024. I examined the patient with the student. I agree with the history, physical, assessment, and plan of care. I discussed the findings and therapeutic plan. I agree with the documentation, except for any updates below. Doing well today. TTE showing normal right sided pressures and function. Pending adrenal metabolic workup. Clinically no suspicion of pheo but will require catecholamine-secreting process prior to bx. Patient on Medicare but will need to dumont check DOACs but may only be able to afford WF. Eduardo Cantu MD Hospital Medicine Daily Progress Note - 03/15/2024 11:47 AM; Room: 3170/3170-01 Admission: 03/13/2024 10:21 PM; Length of stay: 2 days THE HOSPITALIST TEAM PREFERS TO USE [employer] CHAT FOR NON-URGENT COMMUNICATION 7AM-7PM. IF I DO NOT RESPOND WITHIN 20 MINUTES OR URGENT MATTERS, PLEASE CALL THROUGH THE BLEACH MIXER. FROM 7PM-7AM, PLEASE PAGE [phone](COVR). Code Status: DNR CC-A Barriers to Discharge: adrenal mass workup Expected Discharge Date: Pending Discharge Destination: home Overview Patient is seen for evaluation and management of pulmonary embolism, pneumonia of left lower lobe, and adrenal mass. Subjective Patient is resting comfortably in chair. Patient reports that he does not have chest discomfort, SOB, fevers, chills, nausea, or any additional pains. Patient was informed of adrenal mass and reports understanding of further work up needed. Physical Exam Visit Vitals BP 141/74 (BP Location: Left arm, Patient Position: Lying) Pulse 66 Temp 36.3 ???C (97.3 ???F) (Temporal) Resp 16 Intake/Output Summary (Last 24 hours) at 03/15/2024 1147 Last data filed at 03/15/2024 1002 Gross per 24 hour Intake 1034.22 ml Output 900 ml Net 134.22 ml Physical Exam HENT: Head: Normocephalic. Cardiovascular: Rate and Rhythm: Normal rate and regular rhythm. Pulmonary: Breath sounds: Wheezing present. Neurological: General: No focal deficit present. Mental Status: He is alert. Psychiatric: Mood and Affect: Mood normal. Thought Content: Thought content normal. Estimated body mass index is 22.03 kg/m??? as calculated from the following: Height as of this encounter: 1.753 m (5' 9 ). Weight as of this encounter: 67.7 kg (149 lb 3.2 oz). Active Inpatient Problems Principal Problem: Pulmonary embolism without acute cor pulmonale, unspecified chronicity, unspecified pulmonary embolism type (CMS/HCC) Active Problems: Pneumonia of left lower lobe due to infectious organism Adrenal mass (CMS/HCC) Alcohol abuse Assessment and Plan #Pulmonary embolism -will continue heparin drip and look to bridge to [facility] pending insurance approval #Pneumonia of left lower lobe -Continue IV azithromycin 500 mg and IV Rocephin 2 g -DuoNeb as needed -Mucinex as needed -Consider pulm consult for workup of COPD #Adrenal mass -CTAP 03/14 shows Heterogeneously enhancing, centrally necrotic left adrenal mass measuring 6.1 x 4.2 cm, which is new in comparison with previous CT from July 2022. This is highly suggestive of adrenal malignancy/metastatic lesion. -Patient is agreeable to adrenal biopsy pending insurance authorization -Will consult case management to ensure proper insurance coverage VTE Prophylaxis: IV heparin Scheduled Meds azithromycin, 500 mg, intravenous, q24h calcium, 500 mg, oral, BID with meals cefTRIAXone, 2 g, intravenous, q24h iohexol, 100 mL, intravenous, Once in imaging metoprolol succinate XL, 50 mg, oral, Daily pantoprazole, 40 mg, oral, Daily spironolactone, 25 mg, oral, Daily heparin, 0-28 Units/kg/hr, Last Rate: 19 Units/kg/hr (03/15/24 1002) Pertinent Investigations Hematology: Results from last 7 days Lab Units 03/15/24 0535 03/14/24 0534 03/13/24 2331 WBC AUTO 10*3/uL 6.58 6.92 7.50 HEMOGLOBIN g/dL 8.0* 6.3* 6.6* HEMATOCRIT % 25.5* 19.9* 20.8* MCV fL 91.7 92.6 92.4 PLATELETS AUTO 10*3/uL 212 247 248 INR -- -- 1.06 Chemistry: Results from last 7 days Lab Units 03/15/24 0535 03/14/24 1531 03/13/24 2331 SODIUM mmol/L 131* 127* 131* POTASSIUM mmol/L 3.6 3.3* 3.4* CHLORIDE mmol/L 105 99 105 CO2 mmol/L 21 20* 20* BUN mg/dL 5* 6* 7 CREATININE mg/dL 0.71 0.88 0.91 GLUCOSE mg/dL 92 355* 90 MAGNESIUM mg/dL -- -- 2.2 CALCIUM mg/dL 7.7* 7.0* 7.6* PHOSPHORUS mg/dL -- -- 3.3 Results from last 7 days Lab Units 03/15/24 0535 03/14/24 1531 03/13/24 2331 AST U/L 36 40* 46* ALT U/L 17 19 21 ALK PHOS U/L 78 82 85 BILIRUBIN TOTAL mg/dL 0.7 0.9 0.7 BILIRUBIN DIRECT mg/dL -- -- 0.2 Historical Values: (Includes values prior to this admission) Lab Results Component Value Date CORTISOL 6.3 03/15/2024 CORTISOL 11.8 (H) 03/14/2024 Lab Results Component Value Date [id number] 585 03/13/2024 IRON 33 (L) 03/13/2024 TIBC 153 (L) 03/13/[address] abdomen pelvis w IV contrast Narrative: STUDY: ABDOMEN AND PELVIS CT (more content not included)... [facility] 03-15-2024 Note Physical Therapy Physical Therapy Evaluation Patient Name: Jaret Grajeda : 1960 Today's Date: 03/15/2024 Patient is a 63 y/o male presented to OSH after being found s/p fall in parking lot. Hypothermic. Found to have LLL PNA and Left acute PE. Transferred to [facility] 03/13/24. AT this time, patient tolerated session well, reports mildly impaired activity tolerance. Independent/SBA for most mobility within the room. Discharge: Home General Subjective: RN approved PT session and OOB activity. In bed upon arrival, agreeable to basic evaluation. Upon completion, patient left in the bed with call light within reach, RN aware PT Diagnosis: Impaired activity tolerance Patient Active Problem List Diagnosis Lung nodule Primary adenocarcinoma of left lung (CMS/HCC) Tobacco use Pulmonary embolism without acute cor pulmonale, unspecified chronicity, unspecified pulmonary embolism type (CMS/HCC) Alcohol withdrawal syndrome (CMS/HCC) Elevated liver enzymes Hyperosmolar hyponatremia Hypokalemia due to loss of potassium Syncope due to sick sinus syndrome (CMS/HCC) Pneumonia of left lower lobe due to infectious organism Adrenal mass (CMS/HCC) Alcohol abuse Past Medical History: Diagnosis Date Anemia, unspecified Cancer of upper lobe of left lung (CMS/HCC) History of transfusion 07/2022 Hypertension Past Surgical History: Procedure Laterality Date APPENDECTOMY LUNG BIOPSY 08/03/2022 TONSILLECTOMY Precautions Precautions Medical Precautions: fall risk, IV, telemetry Pain Pain Assessment Pain Assessment: No/denies pain Patient's Stated Pain Goal: No pain (Reports he has been having issues with his chronic low back pain, though at this time 0/10.) Cognition Cognition Overall Cognitive Status: Within Functional Limits Arousal/Alertness: Appropriate responses to stimuli Following Commands: Follows all commands and directions without difficulty General Assessment General Assessment Hearing: Intact Hand Dominance: Right Home Living Home Living Type of Home: Apartment Lives With: Daughter Home Adaptive Equipment: Walker rolling, Rollator, Cane Home Layout: One level Home Access: Level entry Bathroom Shower/Tub: Tub/shower unit Bathroom Equipment: Raised toilet seat without rails, Grab bars in shower Prior Level of Function Prior Function Level of Sullivan: Independent with ADLs and functional transfers, Independent with homemaking with ambulation Prior Functional Mobility: Independent without device ADL Assistance: Independent Homemaking Assistance: Independent Vision Basic Assessment Vision - Basic Assessment Current Vision: No visual deficits Activity Tolerance Activity Tolerance Endurance: Stage II General Assessments Activity Tolerance Endurance: Stage II Sensation Light Touch: No apparent deficits Coordination Movements are Fluid and Coordinated: Yes Postural Control Postural Control: Within Functional Limits Static Sitting Balance Static Sitting-Balance Support: Feet supported Static Sitting-Level of Assistance: Independent Dynamic Sitting Balance Dynamic Sitting-Balance Support: Feet supported, Right upper extremity supported, Left upper extremity supported Dynamic Sitting-Balance: Forward lean, Lateral lean Dynamic Sitting Balance-Level of Assistance: Independent Static Standing Balance Static Standing-Balance Support: No upper extremity supported Static Standing-Level of Assistance: Close supervision Dynamic Standing Balance Dynamic Standing-Balance Support: No upper extremity supported Dynamic Standing Balance-Level of Assistance: Close supervision Functional Assessments Bed Mobility Bed Mobility: Yes Bed Mobility 1 Bed Mobility From 1: Supine Bed Mobility Type 1: To and from Bed Mobility to 1: Short sit Level of Assistance 1: Independent Bed Mobility Comments 1: HOB elevated ~30 degrees Transfers Transfer: Yes Transfer 1 Technique 1: Sit to stand, Stand to sit (From EOB) Transfer Device 1: none Transfer Level of Assistance 1: Close supervision Ambulation Ambulation: Yes Ambulation 1 Surface 1: Level tile Device 1: No device Assistance 1: Close supervision Comments/Distance (ft) 1: 15 ft - agreeable to ambulate to door and back though reports he just got back into bed and wishing to rest. Agreeable to further ambulation in future. Extremity Assessments RUE Assessment RUE Assessment: Within Functional Limits LUE Assessment LUE Assessment: Within Functional Limits RLE Assessment RLE Assessment: Within Functional Limits (Grossly 4/5 throughout BLE) LLE Assessment LLE Assessment: Within Functional Limits (Grossly 4/5 throughout BLE) Therapeutic Exercise Outcome Assessments 6 Clicks (Mobility) Help from another person turning from your back to your side while in a flat bed without using bedrails: None Help from another person moving (more content not included)... [facility] 03-15-2024 Note Yesterday I ordered morning cortisol but once again order not followed and afternoon cortisol was obtained instead. Decadron not given at 11PM and midnight instead. Repeat cortisol obtained at 535AM. This test was very poorly executed and provides suboptimal data. [facility] 03-15-2024 Note Occupational Therapy Occupational Therapy Evaluation Patient Name: Jaret Grajeda : 1960 Today's Date: 03/15/2024 Time In: 741 Time Out: 759 Patient initially presented to the outside hospital with weakness and hypothermia. Per report, patient was found after a fall in the parking lot. His temperature improved with Yuli hugger. On the workup, patient was found to have left lower lobe pneumonia and left sided pulmonary embolism Principal Problem: Pulmonary embolism without acute cor pulmonale, unspecified chronicity, unspecified pulmonary embolism type (CMS/HCC) Active Problems: Pneumonia of left lower lobe due to infectious organism Adrenal mass (CMS/HCC) Alcohol abuse General Subjective: friendly and cooperative Patient Active Problem List Diagnosis Lung nodule Primary adenocarcinoma of left lung (CMS/HCC) Tobacco use Pulmonary embolism without acute cor pulmonale, unspecified chronicity, unspecified pulmonary embolism type (CMS/HCC) Alcohol withdrawal syndrome (CMS/HCC) Elevated liver enzymes Hyperosmolar hyponatremia Hypokalemia due to loss of potassium Syncope due to sick sinus syndrome (CMS/HCC) Pneumonia of left lower lobe due to infectious organism Adrenal mass (CMS/HCC) Alcohol abuse Past Medical History: Diagnosis Date Anemia, unspecified Cancer of upper lobe of left lung (CMS/HCC) History of transfusion 07/2022 Hypertension Past Surgical History: Procedure Laterality Date APPENDECTOMY LUNG BIOPSY 08/03/2022 TONSILLECTOMY Precautions Precautions Medical Precautions: fall risk Pain Pain Assessment Patient's Stated Pain Goal: 2 (baseline chronic LBP) Cognition Cognition Overall Cognitive Status: Within Functional Limits General Assessment General Assessment Hearing: (wfl) Hand Dominance: Right Home Living Home Living Type of Home: Apartment Lives With: Daughter (she does not work) Home Adaptive Equipment: Walker rolling, Rollator, Cane (rts, gb) Home Layout: One level Home Access: Level entry Bathroom Shower/Tub: Tub/shower unit Prior Level of Function Prior Function Level of Sullivan: Independent with ADLs and functional transfers, Independent with homemaking with ambulation (drives) Prior Functional Mobility: Independent without device Prior IADLs IADL History Homemaking Responsibilities: Yes Meal Prep Responsibility: Primary Dynamic Sitting Balance Dynamic Sitting Balance Dynamic Sitting Balance-Level of Assistance: Independent Static Standing Balance Static Standing Balance Static Standing-Level of Assistance: Close supervision ADL ADL LE Dressing Assistance: Stand by Transfers Transfers Transfer: (indep supine to sit EOB, SBA : sit to stand, standing four mintutes, take a few steps to chair and sit) Objective General Assessments Activity Tolerance Endurance: Stage II Vision - Basic Assessment Current Vision: No visual deficits Sensation Light Touch: No apparent deficits Coordination Movements are Fluid and Coordinated: Yes Extremity Assessments RUE Assessment RUE Assessment: Within Functional Limits LUE Assessment LUE Assessment: Within Functional Limits Outcome Assessments AM-PAC 6 Clicks Putting on and taking off regular lower body clothing?: A Little (Min Assist/Contact Guard/Supervision) Bathing(Including washing,rinsing,drying)?: A Little (Min Assist/Contact Guard/Supervision) Toileting, which includes using the toilet,bedpan,or urinal?: A Little (Min Assist/Contact Guard/Supervision) Putting on and taking off regular upper body clothing?: None (Independent) Taking care of personal grooming such as brushing teeth?: None (Independent) Eating meals?: None (Independent) Total Score OT [facility]: 21 Assessment/Plan OT Assessment OT Impairments: Decreased ADL status, Decreased endurance, Decreased functional mobility OT Assessment/PEDIATRIC PSYCHIATRIST Summary: (needs skilled OT due to weakness and fatigue) Prognosis: Good Evaluation/Treatment Tolerance: Patient limited by fatigue Medical Staff Made Aware: Yes OT Education/Comments: (LB adl and adl transfer safety / techique with good return demo) Plan Level of assist: 1 assist Treatment Interventions: ADL retraining, Functional transfer training, Endurance training, Patient/family training, Neuromuscular reeducation, Compensatory technique education OT Plan: Skilled OT OT Frequency: 5 times per week until discharge & PRN OT Discharge Recommendations: Home OT - Discharge Recommendations Placed: Yes OT Goals Multi-Disciplinary Problems (from Occupational Therapy) Active Problems Problem: Balance Start Date: 03/15/24 Goal Start Date Expected End Date End Date LTG - Patient will maintain stand balance to allow for safe mobility 03/15/24 03/29/24 -- Problem: Bathing Start Date: 03/15/24 Goal Start Date Expected End Date End Date LTG - Patient will util (more content not included)... [facility] 03-14-2024 Note Adult Nutrition Asse ssment: Name: Jaret Grajeda Date: 1960 Date of Visit: 03/14/24 Admission Dx: Pulmonary embolism without acute cor pulmonale, unspecified chronicity, unspecified pulmonary embolism type (CMS/HCC) [I26.99] Reason for assessment: high risk (wt loss, po intake) Information obtained from: patient, medical record, and nursing Past Medical History: Diagnosis Date Anemia, unspecified Cancer of upper lobe of left lung (CMS/HCC) History of transfusion 07/2022 Hypertension Radiation February 2023 ETOH intake HLD Current Medications: azithromycin, 500 mg, intravenous, q24h calcium, 500 mg, oral, BID with meals cefTRIAXone, 2 g, intravenous, q24h dexAMETHasone, 1 mg, oral, Once iohexol, 100 mL, intravenous, Once in imaging metoprolol succinate XL, 50 mg, oral, Daily pantoprazole, 40 mg, oral, Daily spironolactone, 25 mg, oral, Daily heparin, 0-28 Units/kg/hr, Last Rate: 22 Units/kg/hr (03/14/24 0620) Labs: 0 Lab Value Date/Time POCGLU 133 (H) 09/06/2022 1042 BUN 7 03/13/2024 2331 CREATININE 0.91 03/13/2024 2331 NA 131 (L) 03/13/2024 2331 K 3.4 (L) 03/13/2024 2331 PHOS 3.3 03/13/2024 2331 MG 2.2 03/13/2024 2331 HGB 6.3 (L) 03/14/2024 0534 WBC 6.92 03/14/2024 0534 Alb 2.2 Protein 5.2 Allergies: No Known Allergies Nutrition Problems: Swallowing Assessment: Denies difficulty swallowing Mouth: Missing teeth Abdominal Assessment: Last BM 2 Appetite: Fair Cognition: A/O x4 Feeding Skills: Able to feed self without difficulty Skin Integrity: Scabs and abrasions, no PI Other Factors: New finding of adrenal mass Nutrition Data/Clinical Indicators of Nutrition Status: Height: 175.3 cm (5' 9 ) Weight: 67.6 kg (149 lb) BMI (Calculated): 21.99 Wt Readings from Last 10 Encounters: 03/14/24 67.6 kg (149 lb) 08/18/23 69.9 kg family medicine 04/08/23 71.8 kg radiation oncology 09/06/22 74.4 kg (164 lb 0.4 oz) 08/19/22 69.9 kg (154 lb) IBW: 72.7 kg Weight change: Pt endorses wt loss over past 2-3 yrs 2/2 cancer diagnosis and treatment. Wt appears relatively stable for past 7 months per records. Nutrition Assessment: Pt daughter helps with grocery shopping and meal preparation. Pt reports trying to eat at least 3 times per day, but it is often very small amounts (snacks) or a sandwich (ham). He used to drink protein shakes, but got tired of these so he stopped. He is open to trying the magic cup here. Dietary Orders (From admission, onward) Start Ordered 03/13/242307 Regular Diet Diet effective now Question: Room Service? Answer: Yes 03/13/242311 Nutrition Risk: Moderate Nutrition Needs: Needs based on: actual body weight (67.9 kg) Calorie needs: 3419-2939 kcals/day based on Equation: 25-30 kcal/kg Protein needs: 68-81 g/day based on 1-1.2 g/kg Fluid needs: 1698 ml/day based on 1 mL/kcal Nutrition Diagnosis: Inadequate oral intake r/t decreased appetite aeb pt report Malnutrition Assessment: Per Registered Dietitian assessment and evaluation, patient does not currently meet criteria OR there is not enough information to support the diagnosis of malnutrition per the clinical criteria set by the Academy of Nutrition and Dietetics (AND) and the [place] Society of Enteral and Parenteral Nutrition (ASPEN). Treatment Plan: Diet: keep liberal to promote intakes Encourage intakes with all meals ONS: magic cup BID Each provides 290 kcal, 9 g protein Daily wt monitoring Replace electrolytes prn Goals: Adequate po intakes (kcals and protein); >75% meals Adherence/tolerance to ONS; >75% supplements Weight maintenance Maintain visceral protein Nutrition-related labs (magnesium, phosphorus, BMP) wnl To reach the Clinical Dietitian, please utilize [employer] chat Tuesday-Tuesday from 8AM-4PM or call extension [phone]. For weekends (Tuesday-Tuesday) and holidays, the Clinical Dietitian can be reached via pager ([phone]) from 9AM-3PM. The Clinical Nutrition Department is unable to respond to [employer] chat messages on Sundays and hols. [facility] 03-14-2024 Note Case was discussed w guillermo the Medical Student on 03/14/2024. I examined the patient with the student. I agree with the history, physical, assessment, and plan of care. I discussed the findings and therapeutic plan. I agree with the documentation, except for any updates below. Higher likelihood of malignancy of adrenal mass based on size and h/o NSCLC. This is apparently new compared to Jan 2024. Will obtain dedicated CT A/P and start adrenal workup; if not pheo then may pursue biopsy. Will contact [facility] for facilitation. Continue heparin gtt and f/u TTE. We do not have access to Alberto echo results so obtain our own. Patient is currently self pay so likely will require bridge to . Previous CT chest notes emphysematous changes. Will have Pulm referral on discharge. Continue Abx for now. Will forego prednisone (re: COPD exac) as dexamethasone suppression will happen tonight. Eduardo Cantu MD [facility] Medicine Daily Progress Note - 03/14/2024 12:06 PM; Room: [address] [place] [address] Admission: 03/13/2024 10:21 PM; Length of stay: 1 days THE HOSPITALIST TEAM PREFERS TO USE [employer] CHAT FOR NON-URGENT COMMUNICATION 7AM-7PM. IF I DO NOT RESPOND WITHIN 20 MINUTES OR URGENT MATTERS, PLEASE CALL THROUGH THE [employer]. FROM 7PM-7AM, PLEASE PAGE [phone](COVR). Code Status: DNR CC-A Barriers to Discharge: TTE, adrenal mass workup Expected Discharge Date: Pending Discharge Destination: home Overview Patient is seen for evaluation and management of pulmonary embolism, pneumonia of left lower lobe, and adrenal mass. Subjective Patient is resting comfortably in bed. Patient reports that yesterday he went to the [employer] store and he was coming out he felt a sharp pain in his back that traveled down to his legs. This pain caused him to lose some mobility where he then proceeded to call emergency services. Patient reports that he has a history of crushed discs . Patient reports that he does not have chest discomfort, SOB, fevers, chills, nausea, or any additional pains. Patient reports that he was not aware of any symptoms regarding a pulmonary embolism or pneumonia. Patient reports a cough that he has had due to his history of smoking. Patient is not aware of a formal diagnosis of COPD. Physical Exam Visit Vitals BP (!) 142/103 Pulse 76 Temp 36.7 ???C (98.1 ???F) Resp 18 Intake/Output Summary (Last 24 hours) at 03/14/2024 1206 Last data filed at 03/14/2024 1107 Gross per 24 hour Intake 656.25 ml Output 750 ml Net -93.75 ml Physical Exam HENT: Head: Normocephalic. Cardiovascular: Rate and Rhythm: Normal rate and regular rhythm. Pulmonary: Breath sounds: Wheezing present. Neurological: General: No focal deficit present. Mental Status: He is alert. Psychiatric: Mood and Affect: Mood normal. Thought Content: Thought content normal. Estimated body mass index is 21.71 kg/m??? as calculated from the following: Height as of this encounter: 1.753 m (5' 9 ). Weight as of this encounter: 66.7 kg (147 lb). Active Inpatient Problems Principal Problem: Pulmonary embolism without acute cor pulmonale, unspecified chronicity, unspecified pulmonary embolism type (CMS/HCC) Active Problems: Pneumonia of left lower lobe due to infectious organism Adrenal mass (CMS/HCC) Alcohol abuse Assessment and Plan #Pulmonary embolism -will continue heparin drip and look to bridge to [facility] pending insurance approval #Pneumonia of left lower lobe -Continue IV azithromycin 500 mg and IV Rocephin 2 g -DuoNeb as needed -Mucinex as needed -Consider pulm consult for workup of COPD #Adrenal mass -Will need to follow up and workup as an outpatient by oncology VTE Prophylaxis: IV heparin Scheduled Meds azithromycin, 500 mg, intravenous, q24h calcium, 500 mg, oral, BID with meals cefTRIAXone, 2 g, intravenous, q24h dexAMETHasone, 1 mg, oral, Once metoprolol succinate XL, 50 mg, oral, Daily pantoprazole, 40 mg, oral, Daily spironolactone, 25 mg, oral, Daily heparin, 0-28 Units/kg/hr, Last Rate: 22 Units/kg/hr (03/14/24 0620) sodium chloride, 20 mL/hr Pertinent Investigations Hematology: Results from last 7 days Lab Units 03/14/24 0534 03/13/24 2331 WBC AUTO 10*3/uL 6.92 7.50 HEMOGLOBIN g/dL 6.3* 6.6* HEMATOCRIT % 19.9* 20.8* MCV fL 92.6 92.4 PLATELETS AUTO 10*3/uL 247 248 INR -- 1.06 Chemistry: Results from last 7 days Lab Units 03/13/24 2331 SODIUM mmol/L 131* POTASSIUM mmol/L 3.4* CHLORIDE mmol/L 105 CO2 mmol/L 20* BUN mg/dL 7 CREATININE mg/dL 0.91 GLUCOSE mg/dL 90 MAGNESIUM mg/dL 2.2 CALCIUM mg/dL 7.6* PHOSPHORUS mg/dL 3.3 Results from last 7 days Lab Units 03/13/24 2331 AST U/L 46* ALT U/L 21 ALK PHOS U/L 85 BILIRUBIN TOTAL mg/dL 0.7 BILIRUBIN DIRECT mg/dL 0.2 Historical Values: (Includes values prior to this admission) No results found for: PREALBUMIN , TSH , T3FREE , FREET4 , CORTISOL , FEV1 , NZC3RUF , D (more content not included)... [facility] 03-13-2024 Note Will start patient o n IV Rocephin and azithromycin. DuoNeb as needed Mucinex as needed [facility] 03-13-2024 Note CIWA protocol [facility] 03-13-2024 Note Will need follow-up and workup as an outpatient by oncology. [facility] 03-13-2024 Note Will continue hepari n drip. Echo was done at [facility] and results are pending. [facility] 03-13-2024 Note Hospital Medicine History and Physical 03/13/2024 11:13 PM THE HOSPITALIST TEAM PREFERS TO USE [employer] CHAT FOR NON-URGENT COMMUNICATION 7AM-7PM. IF I DO NOT RESPOND WITHIN 20 MINUTES OR URGENT MATTERS, PLEASE CALL THROUGH THE BLEACH MIXER. FROM 7PM-7AM, PLEASE PAGE [phone](COVR). Chief Complaint No chief complaint on file. History of Present Illness Jaret Grajeda is an 63 y.o. male who came from [facility] with past medical history of anemia, CHF, hyperlipidemia, hypertension, tobacco use, alcohol use and left upper lobe lung cancer, s/p radiation presented to [facility] as a transfer because of requiring higher level of care. Patient initially presented to the outside hospital with weakness and hypothermia. Per report, patient was found after a fall in the parking lot. His temperature improved with Yuli hugger. On the workup, patient was found to have left lower lobe pneumonia and left sided pulmonary embolism. He was started on heparin drip, vancomycin and Zosyn. Also found to have new 5.4 cm adrenal mass. Patient's troponin was normal. his initial WBCs were 11.9 but decreased to 9.0. Patient had echo done today. Patient is somewhat poor historian. He denies any symptoms and he states that he does not know what is going on with him. He does have cough and some shortness of breath but no chest pain. No abdominal pain. Denies any other concerns or complaints. Review of System and Physical Exam Temp: [36.4 ???C (97.5 ???F)] 36.4 ???C (97.5 ???F) Heart Rate: [95] 95 Resp: [27] 27 BP: (143)/(95) 143/95 Physical Exam Constitutional: Appearance: Normal appearance. HENT: Head: Normocephalic. Comments: Poor dentition Eyes: Conjunctiva/sclera: Conjunctivae normal. Cardiovascular: Rate and Rhythm: Normal rate and regular rhythm. Heart sounds: Normal heart sounds. No murmur heard. Pulmonary: Effort: Pulmonary effort is normal. No respiratory distress. Breath sounds: Wheezing and rhonchi present. No rales. Comments: Diminished breath sounds bilaterally. Abdominal: General: Abdomen is flat. Tenderness: There is no abdominal tenderness. Musculoskeletal: General: No swelling. Right lower leg: No edema. Left lower leg: No edema. Skin: Coloration: Skin is pale. Findings: No rash. Neurological: General: No focal deficit present. Mental Status: He is alert. Psychiatric: Mood and Affect: Mood normal. Behavior: Behavior normal. Review of Systems as mentioned in HPI Assessment and Plan Assessment & Plan Pulmonary embolism without acute cor pulmonale, unspecified chronicity, unspecified pulmonary embolism type (CMS/HCC) Will continue heparin drip. Echo was done at [facility] and results are pending. Pneumonia of left lower lobe due to infectious organism Will start patient on IV Rocephin and azithromycin. DuoNeb as needed Mucinex as needed Adrenal mass (CMS/HCC) Will need follow-up and workup as an outpatient by oncology. Alcohol abuse [facility] protocol Left upper lobe lung cancer, s/p radiation Anemia CHF Hypertension Hyperlipidemia Plan: Patient is admitted to a stepdown telemetry bed. Fall precautions. Continuous pulse oximetry with supplemental oxygen if needed Patient's home medications were resumed Protonix 40 mg p.o. daily for GI prophylaxis Labs and EKG are ordered EPC cuffs VTE Prophylaxis: IV heparin ----- Focus of this inpatient stay will remain on problems that need acute care setting for care. We will review available studies and will order additional labs, imaging and other studies as appropriate. As needed medicines are ordered as appropriate. VTE Prophylaxis will be ordered as appropriate. Please see above for management plan for individual hospital problems. Home medications are reviewed and will be continued as appropriate. Patient will be continued to be followed during this hospital stay by a member of [facility]. Past Medical History Past Medical History: Diagnosis Date Anemia, unspecified Cancer of upper lobe of left lung (CMS/HCC) History of transfusion 07/2022 Hypertension Past Surgical History Past Surgical History: Procedure Laterality Date APPENDECTOMY LUNG BIOPSY 08/03/2022 TONSILLECTOMY Social History Social History Socioeconomic History Marital status: Single Spouse name: Not on file Number of children: Not on file Years of education: Not on file Highest education level: Not on file Occupational History Not on file Tobacco Use Smoking status: Every Day Current packs/day: 1.00 Average packs/day: 1 pack/day for 40.0 years (40.0 ttl pk-yrs) Types: Cigarettes Smokeless tobacco: Not on file Substance and Sexual Activity Alcohol use: Yes Alcohol/week: 42.0 standard drinks of alcohol Types: 42 Cans of beer per week Drug use: Not Currently Sexual activity: Not on file Other Topics Concern Not on file Social History Narrative N (more content not included)... [facility] 06-20-2023 Telephone encounter Note Patient is r/s for both appts [facility] 06-20-2023 Miscellaneous Notes Patient is r/s for both appts I also called patient no answer to check on appointments. Call placed to patient due to him cancelling CT that was to be done prior to follow up for Tuesday. CAlled to check status and LM requesting pt CB to reschedule all appts. Cathy Jovel RN documented in this encounter [facility] 06-17-2023 Telephone encounter Note I also called patient no answer to check on appointments. [facility] 06-16-2023 Telephone encounter Note Call placed to patient due to him cancelling CT that was to be done prior to follow up for Tuesday. CAlled to check status and LM requesting pt CB to reschedule all appts. Cathy Jovel, CE [facility] 04-08-2023 History of Present illness Narrative Radiation Oncology - Follow Up Note PATIENT NAME: Jaret Grajeda PATIENT Signed by: Don Mejia MD This document has been created with the use of voice recognition technology. It may contain inaccuracies, misspellings, inaccurate syntax or inappropriate word context that are a result of the inadequacies/shortcomings of said technology/software. documented in this encounter [facility] 03-24-2023 Miscellaneous Notes Call placed to pt to check status. He states he is doing very well. His breathing has maintained it's baseline and he denies any new issues. His energy levels are at his normal. Pt is scheduled for follow up on 04/[address]/FU in June. Cathy Jovel RN documented in this encounter [facility] 03-14-2023 Miscellaneous Notes Patient is scheduled CT chest due in 3 months is pending your approval. Lili Martinez RN documented in this encounter [facility] 03-07-2023 History of Present illness Narrative [facility] Radiation Oncology Department RADIATION ONCOLOGY - SBRT COMPLETION NOTE PATIENT: JADA GRAJEDAOB: 1960 DATES OF TREATMENT: 02/28/23-03/07/23 DIAGNOSIS: Mr. Grajeda is a 62-year-old gentleman diagnosed with a Stage IB, [id number], non-small cell lung cancer (adenocarcinoma) arising from [...] cc: Jennifer Garber MD [address] [place] [address] [address] [facility], DO [address] [facility] [place] [address] Via documented in this encounter [facility] 02-11-2023 History of Present illness Narrative JARET GRAJEDA [id number] 02/11/2023 [facility] Department of Radiation Oncology Treatment Planning Note For reasons stated in the consult note, Jaret Grajeda is a candidate for radiation therapy. Based on review and interpretation of the relevant diagnostic studies together with the exam findings, aJret Grajeda was simulated on 02/11/2023 at which time the target volume and/or requisite jesus were delineated, as indicated in the simulation [...] isodose line with 6FFF MV and 2 jesus. Custom MLC asym jaws for IMRT were [...] M.D. 43:22 PM documented in this encounter [facility] 01-24-2023 History of Present illness Narrative [...] 2023 2:35 PM documented in this encounter [facility] 01-24-2023 History of Present illness Narrative [...] IV SITE APPEARANCE: Clean,Dry and Intact SIGNATURE: Valentino Estevez RN PATIENT NAME: Jaret Grajeda DATE: January [...] 1035 PATIENT DISCHARGED TO: Ambulatory patient, left [place] department area. A Diagnostic radioactive procedure has taken place, with no further precautions necessary other than routine body substance precautions. More information regarding radiation safety can be found using this link: [email or web address] SIGNATURE: RT Sharita(Stephen) PATIENT NAME: Jaret Grajeda DATE: January 24, 2023 TIME: 2:34 PM PAGER/CONTACT #: documented in this encounter [facility] 01-13-2023 Miscellaneous Notes Received [facility] Hem/Onc office notes 01/04/23 fron [facility] Record scanned in Epic Myriam Gibbs, client services administrator documented in this encounter [facility] 01-06-2023 Miscellaneous Notes Patient called back is aware of appt date and times Called patient again left message to call me back with appt dates and times Called patient to let him know about PET and CT and he also needs a followup with Dr Mejia, no answer left message for him to call me back documented in this encounter [facility] 12-23-2022 History of Present illness Narrative I have read and reviewed the documentation and agree. I wish to add the following findings which have been dictated and will be communicated back to the requesting physician. Delfina Blue MD, PhD [facility] [place] Department of Thoracic Surgery TELEPHONE VISIT (audio [...] visit. Either the patient or their legal floor representative has been informed of the risks [...] Blue MD, PhD documented in this encounter [facility] 11-24-2022 Miscellaneous Notes Thanks for the update - please let Dr. Garber's office know as well. Don Update- pt rescheduled stress test and is now scheduled for this and appt with Dr Blue on 12/09. Cathy Jovel, RN Call again placed to pt to [...] Cathy Jovel, RN documented in this encounter [facility] 10-14-2022 Note HNO ID: [id number] Author: Ana Steward RRT Service: ? Author [...] 1:26 PM _ Comments: B/P 5min post [facility] 10-14-2022 Procedure note Associated Ord er(s): [...] 1:26 PM _ Comments: B/P 5min post Associated attestation - Neel Moseley MD - [...] TIME: 9:29 PM documented in this encounter [facility] 09-27-2022 History of Present illness Narrative Images from the original note were not included. Radiation Oncology - New Patient/Consult Note PATIENT NAME: Jaret Grajeda PATIENT Signed: Don Mejia MD I spent a total of 60 minutes on the date of the service which included preparing to see the patient, [id number] patient care, and counseling and educating the patient/family/caregiver. This document has been created with the use of voice recognition technology. It may contain inaccuracies, misspellings, inaccurate syntax or inappropriate word context that are a result of the inadequacies/shortcomings of said technology/software. documented in this encounter [facility] 09-27-2022 Miscellaneous Notes Thanks for tristen Ochoa Offered Bakari an appointment with Dr Blue on 10/05 he will not take appointment he stated that he has someone taking him on the and discussed with him daughter they would like to keep appt as scheduled. documented in this encounter [facility] 09-27-2022 Nurse Note Radiation Therapy - Patient Education Note PATIENT NAME: Jaret Grajeda PATIENT September 27, 2022 [facility] FACILITY/LOCATION: [facility] READINESS TO LEARN Cognitive Ability: [...] need for social work, van service, and senior network security architect. Was approved? No Signed by: Lili Martinez LPN documented in this encounter [facility] 09-21-2022 Miscellaneous Notes Patient called back he is scheduled for Tuesday per his request. Called patient again to schedule tiffany no answer 09/06/22 EBUS results are available in Care Everywhere. Thanks Lili Martinez LPN Referral was made by Dr. Garber and is important to keep. According to the chart he was also supposed to follow-up with Dr. Candelaria in [place] for bronchoscopy/EBUS for pathologic staging of his [...] Lili Martinez LPN documented in this encounter [facility] 09-16-2022 Miscellaneous Notes Left date and time of apt for patient. Sent via [employer] - [id number]. Th, 10/14/2022 at [place] PFTs at 12:30pm/1pm/1:15pm Th, 10/14/2022 at [facility] Consult w/ Dr. Blue at 3:40pm documented in this encounter [facility] 09-09-2022 Miscellaneous Notes Images from the original note were not included. Thoracic Surgery Consultation - review of records for appointment scheduling Received medical records from the office of Wade Jones Sr, MD [facility] [address] Patient is being referred to Unspecified/First Available [...] of lymph node Procedures: 09/06 [facility] 08/13/22 ct guided bx Imaging . [...] with dr blue pft/dlco/ six min walk Kayli Pastor, RN LOCAL PATIENT Received Fax from Dr. Wade Jones Jaret Grajeda is being referred to Delfina Blue MD, PhD or Zbigniew Wilkinson M.D. by Wade Jones Sr, MD [address] [facility] [address] Patient diagnosis/Reason for consult: Lung Cancer Referral triage process explained: Yes Patient will receive a call from Thoracic NPM after triage review with surgeon to discuss any additional testing and/or consults that will be scheduled. Pt will then receive a call from our scheduling office for scheduling. Please call pt at [phone]. Patient was informed consultation could be at [place] or [facility] [place]: No Patient Registration: Registration complete/updated: Yes Insurance card(s) scanned in [facility] with in the past year: Yes: Date: 08/26/22 Pt's [employer] is Pending. Ok to communicate to pt via [employer] not asked Medical Records: Records in [facility] (internal [facility] records): No Imaging in [facility] (internal [facility] records): No Care Everywhere - queried yes, downloaded Yes Linked Outside Organizations (list):[employer] Records Requested: yes Date: August 26, 2022 Outside Hospital(s) requested records from: Dr. Wade Jones, Dr. Garber Received: Yes Uploaded: Yes. Waiting on additional records: No. Missing (list): n/a OSH Pathology Slides Requested: no Date: N/A Outside Hospital(s) slides requested from: n/a OSH Radiology Imaging Requested: yes Date: August 26, 2022 Outside Hospital(s) requested imaging from: [facility]. Imaging will be received via Electronic Transfer Received: Yes Imaging uploaded: Yes Waiting on additional: No. Missing (list): n/a Additional providers added to Care Teams: Yes Additional Notes/Comments: n/a Enct routed to: Thoracic NPM for Triage Myriam Gibbs client services administrator documented in this encounter [facility] 09-09-2022 Miscellaneous Notes I left a message for Jaret to call the office conner regarding his missed appointment for consult with Dr. Mejia today. This is twice that he's no showed to the scheduled consult. I notified Shilpa with Dr. Garber's office of the above as well. Lili Martinez LPN documented in this encounter [facility] 05-26-2022 Note PROCEDURE: XR FOOT R [...] authenticated by: ANNE GUADALUPE Date: 2022-05-26 19:40 [facility] 04-14-2022 Note PROCEDURE: XR FOOT [...] authenticated by: LEIGH PUCKETT Date: 2022-04-14 09:05 [facility] 03-31-2022 Note PROCEDURE: XR FOOT [...] authenticated by: LEIGH PUCKETT Date: 2022-03-31 08:08 [facility] 03-23-2022 Note PROCEDURE: XR FOOT [...] by: ANNE GUADALUPE Date: 2022-03-23 12:49 [facility] Evaluation note Diagnosis Malignant neoplasm [...] (HCC) documented in this encounter [facility] noteNo assessment information availableTri[facility] Work Phone: Evaluation note* Diagnosis 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)- Primary documented in this encounter [facility]* Diagnosis 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)- Primary documented in this encounter [facility] note* Diagnosis 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) Left adrenal mass (HCC) Unspecified disorder of adrenal glands documented in this encounter [facility] note* Diagnosis 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)- Primary Secondary malignancy of left adrenal gland (HCC) documented in this encounter [facility] note* Diagnosis Hypokalemia- Primary Hypopotassemia 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) documented in this encounter [facility] for referral (narrative)* Outpatient Procedure (Routine) - Pending Review Specialty Diagnoses / Procedures Referred By Contac t Referred To Contact [facility] Diagnoses Malignant neoplasm of left lung, unspecified part of lung (HCC) Procedures SIX MINUTE WALK CARDIOPULMONARY EXERCISE STRESS Delfina Blue MD, PhD [address] [place] [address] [facility] [place] [address] [place] [address] Referral ID Status Reason Start Date Expiration Date Visits Requested Visits Authorized [id number] Pending Review Auto-Generat ed Referral 09/09/2022 10/09/2023 1 1 * Outpatient Procedure (Routine) - Pending Review Specialty Diagnoses / Procedures Referred By Contac t Referred To Contact [facility] Diagnoses Malignant neoplasm of left lung, unspecified part of lung (HCC) Procedures LUNG DIFFUSION CAPACITY (DLCO) DIFFUSING CAPACITY Delfina Blue MD, PhD [address] [place] [address] [facility] [place] [address] [place] [address] Referral ID Status Reason Start Date Expiration Date Visits Requested Visits Authorized [id number] Pending Review Auto-Generat ed Referral 09/09/2022 10/09/2023 1 1 * Outpatient Procedure (Routine) - Pending Review Specialty Diagnoses / Procedures Referred By Contac t Referred To Contact [facility] Diagnoses Malignant neoplasm of left lung, unspecified part of lung (HCC) Procedures SPIROMETRY BASELINE ONLY SPMTRY W/VC EXPIRATORY RU W/WO MXML VOL VNTJ Delfina Blue MD, PhD [address] [place] [address] [facility] [place] [facility] [place] [address] Referral ID Status Reason Start Date Expiration Date Visits Requested Visits Authorized [id number] Pending Review Auto-Generat ed Referral 09/09/2022 10/09/2023 1 1 [facility] for referral (narrative)* Diagnostic Procedure Only (Routine) - Closed Specialty Diagnoses / Procedures Referred By Contac t Referred To Contact MOLECULAR & FUNCTIONAL IMAGING Diagnoses 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) Procedures NM PET/CT SKULL-THIGH SUBSEQUENT PET IMAGING CT ATTENUATION SKULL BASE MID-THIGH Don Mejia MD [address] [place] [address] [place] [address] Molecular & Functional Imaging [address] [place] [address] Referral ID Status Reason Start Date Expiration Date V isits Requested Visits Authorized [id number] Closed Auto-Generate d Referral 01/10/2023 02/08/2023 [address] [facility] Summary Purpose Family History No Family History Records Found Relationship Condition Age at Onset Recorded Date/T aidee mother Malignant neoplasm of breast Unknown Advance Directives No Advanced Directives Records Found Advance Directive Response Recorded Date/ Time Advance Directives No May 21, 1:59pm Reason for Referral Specialty Diagnoses / Procedures Referred By Contbob t Referred To Contact CT IMAGING Diagnoses Neoplasm of lung Procedures CT CHEST W IVCON DIAGNOSTIC COMPUTED TOMOGRAPHY THORAX W/CONTRAST Don Mejia MD [address] [place] [address] [place] [address] [place] [address] Referral ID Status Reason Start Date Expiration Date Visits Requested Visits Authorized [id number] Authorized Auto-Generat ed Referral 06/09/2023 04/09/2024 1 1 Specialty Diagnoses / Procedures Referred By Javy t Referred To Contact CT IMAGING Diagnoses 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) Procedures CT CHEST W IVCON DIAGNOSTIC COMPUTED TOMOGRAPHY THORAX W/CONTRAST Don Mejia MD [address] [place] [address] [place] [address] [place] [address] Referral ID Status Reason Start Date Expiration Date V isits Requested Visits Authorized [id number] Closed Auto-Generate d Referral 01/05/2023 02/04/2024 1 1 Additional Source Comments (unrecognized sect ion and content) No Status Records FoundNo Status Records FoundNo Status Records FoundNo Status Records FoundNo Status Records FoundNo Status Records FoundNo Status Records Found INFORMATION SOURCE (unrecogn ized section and content) DATE CREATED AUTHOR 05/30/2022 [facility] DATE CREATED AUTHOR AUTHOR'S ORGANIZ ATION 10/15/2022 [facility] DATE CREATED AUTHOR AUTHOR'S ORGANIZ ATION 03/22/2024 [facility] DATE CREATED AUTHOR AUTHOR'S ORGANIZ ATION 05/04/2024 [facility] EPIC DATE CREATED AUTHOR AUTHOR'S ORGANIZ ATION 05/06/2024 [facility] DATE CREATED AUTHOR AUTHOR'S ORGANIZ ATION 09/15/2024 [facility] DATE CREATED AUTHOR AUTHOR'S ORGANIZ ATION 10/02/2024 [facility] Source Comments (unrecognize d section and content) In the event this informatio n is protected by the Federal Confidentiality of Alcohol and Drug Abuse Patient Records regulations: The Federal rules restrict any use of the information to criminally investigate or prosecute any alcohol or drug abuse patient.[facility] the event this information is protected by the Federal Confidentiality of Alcohol and Drug Abuse Patient Records regulations: The Federal rules restrict any use of the information to criminally investigate or prosecute any alcohol or drug abuse patient.[facility] HospitalIn the event this information is protected by the Federal Confidentiality of Alcohol and Drug Abuse Patient Records regulations: The Federal rules restrict any use of the information to criminally investigate or prosecute any alcohol or drug abuse patient.[facility] HospitalIn the event this information is protected by the Federal Confidentiality of Alcohol and Drug Abuse Patient Records regulations: The Federal rules restrict any use of the information to criminally investigate or prosecute any alcohol or drug abuse patient.[facility] HospitalIn the event this information is protected by the Federal Confidentiality of Alcohol and Drug Abuse Patient Records regulations: The Federal rules restrict any use of the information to criminally investigate or prosecute any alcohol or drug abuse patient.[facility] HospitalIn the event this information is protected by the Federal Confidentiality of Alcohol and Drug Abuse Patient Records regulations: The Federal rules restrict any use of the information to criminally investigate or prosecute any alcohol or drug abuse patient.[facility] HospitalIn the event this information is protected by the Federal Confidentiality of Alcohol and Drug Abuse Patient Records regulations: The Federal rules restrict any use of the information to criminally investigate or prosecute any alcohol or drug abuse patient.[facility] HospitalIn the event this information is protected by the Federal Confidentiality of Alcohol and Drug Abuse Patient Records regulations: The Federal rules restrict any use of the information to criminally investigate or prosecute any alcohol or drug abuse patient.[facility] HospitalIn the event this information is protected by the Federal Confidentiality of Alcohol and Drug Abuse Patient Records regulations: The Federal rules restrict any use of the information to criminally investigate or prosecute any alcohol or drug abuse patient.[facility] HospitalIn the event this information is protected by the Federal Confidentiality of Alcohol and Drug Abuse Patient Records regulations: The Federal rules restrict any use of the information to criminally investigate or prosecute any alcohol or drug abuse patient.[facility] HospitalIn the event this information is protected by the Federal Confidentiality of Alcohol and Drug Abuse Patient Records regulations: The Federal rules restrict any use of the information to criminally investigate or prosecute any alcohol or drug abuse patient.[facility] HospitalIn the event this information is protected by the Federal Confidentiality of Alcohol and Drug Abuse Patient Records regulations: The Federal rules restrict any use of the information to criminally investigate or prosecute any alcohol or drug abuse patient.[facility] HospitalIn the event this information is protected by the Federal Confidentiality of Alcohol and Drug Abuse Patient Records regulations: The Federal rules restrict any use of the information to criminally investigate or prosecute any alcohol or drug abuse patient.[facility] HospitalIn the event this information is protected by the Federal Confidentiality of Alcohol and Drug Abuse Patient Records regulations: The Federal rules restrict any use of the information to criminally investigate or prosecute any alcohol or drug abuse patient.[facility] HospitalIn the event this information is protected by the Federal Confidentiality of Alcohol and Drug Abuse Patient Records regulations: The Federal rules restrict any use of the information to criminally investigate or prosecute any alcohol or drug abuse patient.[facility] HospitalIn the event this information is protected by the Federal Confidentiality of Alcohol and Drug Abuse Patient Records regulations: The Federal rules restrict any use of the information to criminally investigate or prosecute any alcohol or drug abuse patient.[facility] HospitalIn the event this information is protected by the Federal Confidentiality of Alcohol and Drug Abuse Patient Records regulations: The Federal rules restrict any use of the information to criminally investigate or prosecute any alcohol or drug abuse patient.[facility] HospitalIn the event this information is protected by the Federal Confidentiality of Alcohol and Drug Abuse Patient Records regulations: The Federal rules restrict any use of the information to criminally investigate or prosecute any alcohol or drug abuse patient.[facility] HospitalIn the event this information is protected by the Federal Confidentiality of Alcohol and Drug Abuse Patient Records regulations: The Federal rules restrict any use of the information to criminally investigate or prosecute any alcohol or drug abuse patient.[facility] HospitalIn the event this information is protected by the Federal Confidentiality of Alcohol and Drug Abuse Patient Records regulations: The Federal rules restrict any use of the information to criminally investigate or prosecute any alcohol or drug abuse patient.[facility] HospitalIn the event this information is protected by the Federal Confidentiality of Alcohol and Drug Abuse Patient Records regulations: The Federal rules restrict any use of the information to criminally investigate or prosecute any alcohol or drug abuse patient.[facility] HospitalIn the event this information is protected by the Federal Confidentiality of Alcohol and Drug Abuse Patient Records regulations: The Federal rules restrict any use of the information to criminally investigate or prosecute any alcohol or drug abuse patient.[facility] HospitalIn the event this information is protected by the Federal Confidentiality of Alcohol and Drug Abuse Patient Records regulations: The Federal rules restrict any use of the information to criminally investigate or prosecute any alcohol or drug abuse patient.[facility] HospitalIn the event this information is protected by the Federal Confidentiality of Alcohol and Drug Abuse Patient Records regulations: The Federal rules restrict any use of the information to criminally investigate or prosecute any alcohol or drug abuse patient.[facility] HospitalIn the event this information is protected by the Federal Confidentiality of Alcohol and Drug Abuse Patient Records regulations: The Federal rules restrict any use of the information to criminally investigate or prosecute any alcohol or drug abuse patient.[facility] HospitalIn the event this information is protected by the Federal Confidentiality of Alcohol and Drug Abuse Patient Records regulations: The Federal rules restrict any use of the information to criminally investigate or prosecute any alcohol or drug abuse patient.[facility] HospitalIn the event this information is protected by the Federal Confidentiality of Alcohol and Drug Abuse Patient Records regulations: The Federal rules restrict any use of the information to criminally investigate or prosecute any alcohol or drug abuse patient.[facility] HospitalIn the event this information is protected by the Federal Confidentiality of Alcohol and Drug Abuse Patient Records regulations: The Federal rules restrict any use of the information to criminally investigate or prosecute any alcohol or drug abuse patient.[facility] HospitalIn the event this information is protected by the Federal Confidentiality of Alcohol and Drug Abuse Patient Records regulations: The Federal rules restrict any use of the information to criminally investigate or prosecute any alcohol or drug abuse patient.[facility] HospitalIn the event this information is protected by the Federal Confidentiality of Alcohol and Drug Abuse Patient Records regulations: The Federal rules restrict any use of the information to criminally investigate or prosecute any alcohol or drug abuse patient.[facility] HospitalIn the event this information is protected by the Federal Confidentiality of Alcohol and Drug Abuse Patient Records regulations: The Federal rules restrict any use of the information to criminally investigate or prosecute any alcohol or drug abuse patient.[facility] HospitalIn the event this information is protected by the Federal Confidentiality of Alcohol and Drug Abuse Patient Records regulations: The Federal rules restrict any use of the information to criminally investigate or prosecute any alcohol or drug abuse patient.[facility] HospitalIn the event this information is protected by the Federal Confidentiality of Alcohol and Drug Abuse Patient Records regulations: The Federal rules restrict any use of the information to criminally investigate or prosecute any alcohol or drug abuse patient.[facility] HospitalIn the event this information is protected by the Federal Confidentiality of Alcohol and Drug Abuse Patient Records regulations: The Federal rules restrict any use of the information to criminally investigate or prosecute any alcohol or drug abuse patient.[facility] HospitalIn the event this information is protected by the Federal Confidentiality of Alcohol and Drug Abuse Patient Records regulations: The Federal rules restrict any use of the information to criminally investigate or prosecute any alcohol or drug abuse patient.[facility] HospitalIn the event this information is protected by the Federal Confidentiality of Alcohol and Drug Abuse Patient Records regulations: The Federal rules restrict any use of the information to criminally investigate or prosecute any alcohol or drug abuse patient.[facility] HospitalIn the event this information is protected by the Federal Confidentiality of Alcohol and Drug Abuse Patient Records regulations: The Federal rules restrict any use of the information to criminally investigate or prosecute any alcohol or drug abuse patient.[facility] HospitalIn the event this information is protected by the Federal Confidentiality of Alcohol and Drug Abuse Patient Records regulations: The Federal rules restrict any use of the information to criminally investigate or prosecute any alcohol or drug abuse patient.[facility] HospitalIn the event this information is protected by the Federal Confidentiality of Alcohol and Drug Abuse Patient Records regulations: The Federal rules restrict any use of the information to criminally investigate or prosecute any alcohol or drug abuse patient.[facility] HospitalIn the event this information is protected by the Federal Confidentiality of Alcohol and Drug Abuse Patient Records regulations: The Federal rules restrict any use of the information to criminally investigate or prosecute any alcohol or drug abuse patient.[facility] Reason for Visit (unrecogniz ed section [...] (DLCO) DIFFUSING CAPACITY Delfina Blue MD, PhD [address] [place] [address] [facility] [place] [address] [place] [address] Referral ID Status Reason Start Date Expiration Date V isits Requested Visits Authorized [id number] Closed Auto-Generate d Referral 09/09/2022 10/09/2023 1 1 Specialty Diagnoses / Procedures Referred By Contac t Referred To Contact [facility] Diagnoses Malignant neoplasm of left lung, unspecified part of lung (HCC) Procedures SPIROMETRY BASELINE ONLY SPMTRY W/VC EXPIRATORY RU W/WO MXML VOL VNTJ Delfina Blue MD, PhD [address] [facility] [place] [address] [facility] [place] [address] [place] [id number] Referral ID Status Reason Start Date Expiration Date V isits Requested Visits Authorized [id number] Closed Auto-Generate d Referral 09/09/2022 10/09/2023 1 1 Specialty Diagnoses / Procedures Referred By Contac t Referred To Contact [facility] Diagnoses Malignant neoplasm of left lung, unspecified part of lung (HCC) Procedures SIX MINUTE WALK CARDIOPULMONARY EXERCISE STRESS PULMONARY STRESS TESTING Delfina Blue MD, PhD [address] [facility] [address] Referral ID Status Reason Start Date Expiration Date V isits Requested Visits Authorized [id number] Closed Auto-Generate d Referral 10/01/2022 02/06/2023 1 1 Reason Comments Mass Reason Comments Future Appointment Reason Comments Received Outside Medical Records Reason Comments Orders Reason Comments Patient Update Post Radiation Treat ment Nurse Call Reason Comments Lung Cancer Specialty Diagnoses / Procedures Referred By Contac t Referred To Contact [facility] Diagnoses . [place] [address] Referral ID Status Reason Start Date Expiration Date Visits Requested Visits Authorized [id number] Authorized Financial Clearance Required - Self Pay Patient Cleared - Qualified [id number] 03/31/2023 06/29/2023 99 99 Specialty Diagnoses / Procedures Referred By Contac t Referred To Contact Radiation Oncology / RADIATION ONCOLOGY Diagnoses Malignant neoplasm of upper lobe, left bronchus or lung Followup and SIM treating lung? SBRT 4FX PLUS SIM Procedures SIMULATION PRAVIN SBRT 4FX PLUS SIM Don Mejia MD [address] [place] [address] Don Mejia MD [address] [place] [address] [place] [address] Referral ID Status Reason Start Date Expiration Date Visits Re quested Visits Authorized [id number] Closed 02/04/2023 05/04/2023 5 5 Reason Comments Radiology NM Specialty Diagnoses / Procedures Referred By Contac t Referred To Contact MOLECULAR & FUNCTIONAL IMAGING Diagnoses 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) Procedures NM PET/CT SKULL-THIGH SUBSEQUENT PET IMAGING CT ATTENUATION SKULL BASE MID-THIGH Don Mejia MD [address] [place] [address] [place] [address] Molecular & Functional Imaging [address] [place] [address] Referral ID Status Reason Start Date Expiration Date V isits Requested Visits Authorized [id number] Closed Auto-Generate d Referral 01/10/2023 02/08/2023 [address] Specialty Diagnoses / Procedures Referred By Contac t Referred To Contact CT IMAGING Diagnoses 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) Procedures CT CHEST W IVCON DIAGNOSTIC COMPUTED TOMOGRAPHY THORAX W/CONTRAST Don Mejia MD [address] [place] [address] [place] [address] [place] [address] Referral ID Status Reason Start Date Expiration Date V isits Requested Visits Authorized [id number] Closed Auto-Generate d Referral 01/05/2023 02/04/2024 1 1 Reason Comments Patient Update Reason Comments [facility] Telephone Reason Comments Radiology NM Specialty Diagnoses / Procedures Referred By Contac t Referred To Contact MOLECULAR & FUNCTIONAL IMAGING Diagnoses 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) Left adrenal mass (HCC) Procedures NM PET/CT SKULL-THIGH SUBSEQUENT PET IMAGING CT ATTENUATION SKULL BASE MID-THIGH Don Mejia MD [address] [place] [address] [place] [address] Phone: tel: fax: Molecular Imaging [address] [place], [place] [id number] Phone: tel: Referral ID Status Reason Start Date Expiration Date V isits Requested Visits Authorized [id number] Closed Auto-Generate d Referral 04/03/2024 05/03/2025 1 1 Reason Comments Patient Update Appointment Reason Onset Date Comments Simulation Request Form 07/27/2024 Reason Comments Secondary malignancy of left adrenal gla nd Treatment visit Reason Comments Radiotherapy On-treatment Visit Care Teams (unrecognized sec tion and content) Distribution Systems Superintendent Relationship Specialty Start Date End Date Wade Jones Sr. [address] [place] [address] PCP - General Family Medicine 08/26/22 Chinyere Candelaria [address] [place] [phone] Critical Care 08/26/22 Jennifer Garber MD [facility] [place] [address] Hematology/Oncology 08/26/22 Distribution Systems Superintendent Relationship Specialty Start Date End Date Wade Jones Sr. [address] [place] [address] PCP - General Family Medicine 08/26/22 Chinyere Candelaria [address] [place] [address] Critical Care 08/26/22 Jennifer Garber MD [facility] [place] [address] Hematology/Oncology 08/26/22 Distribution Systems Superintendent Relationship Specialty Start Date End Date Wade Jones Sr. [address] [place] [address] PCP - General Family Medicine 08/26/22 Chinyere Candelaria [address] [place] [address] Critical Care 08/26/22 Jennifer Garber MD [address] [place] [address] Hematology/Oncology 08/26/22 Distribution Systems Superintendent Relationship Specialty Start Date End Date Wade Jones Sr. [address] [place] [address] PCP - General Family Medicine 08/26/22 Chniyere Candelaria [address] [place] [address] Critical Care 08/26/22 Jennifer Garber MD [address] [place] [address] Hematology/Oncology 08/26/22 Distribution Systems Superintendent Relationship Specialty Start Date End Date Wade Jones Sr. [address] [place] [address] PCP - General Family Medicine 08/26/22 Chinyere Candelaria [address] [place] [address] Critical Care 08/26/22 Jennifer Garber MD [address] [place] [address] Hematology/Oncology 08/26/22 Distribution Systems Superintendent Relationship Specialty Start Date End Date Wade Jones Sr. [address] [place] [address] PCP - General Family Medicine 08/26/22 Chinyere Candelaria [address] [place] [phone] Critical Care 08/26/22 Jennifer Garber MD [address] [place] [address] Hematology/Oncology 08/26/22 Distribution Systems Superintendent Relationship Specialty Start Date End Date Wade Jones Sr. [address] [place] [address] PCP - General Family Medicine 08/26/22 Chinyere Candelaria [address] [place] [phone] Critical Care 08/26/22 Jennifer Garber MD [address] [place] [address] Hematology/Oncology 08/26/22 Distribution Systems Superintendent Relationship Specialty Start Date End Date Wade Jones Sr. [address] [place] [address] PCP - General Family Medicine 08/26/22 Chinyere Candelaria MD [address] [place] [phone] Critical Care 08/26/22 Jennifer Garber MD [address] [place] [facility] [place] [address] Hematology/Oncology 08/26/22 Distribution Systems Superintendent Relationship Specialty Start Date End Date Wade Jones Luciano Winters. [address] [place] [address] PCP - General Family Medicine 08/26/22 Chinyere Candelaria MD [address] [place] [phone] Critical Care 08/26/22 Jennifer Garber MD [address] [place] [address] Hematology/Oncology 08/26/22 Distribution Systems Superintendent Relationship Specialty Start Date End Date Karen Wade Luciano Winters., DO [address] [place] [address] PCP - General Family Medicine 08/26/22 Chinyere Candelaria MD [address] [place] [phone] Critical Care 08/26/22 Jennifer Garber MD [address] [place] [address] Hematology/Oncology 08/26/22 Distribution Systems Superintendent Relationship Specialty Start Date End Date Karen Wade Luciano Winters., DO [address] [place] [address] PCP - General Family Medicine 08/26/22 Chinyere Candelaria MD [address] [place] [phone] Critical Care 08/26/22 Jennifer Garber MD [address] [place] [facility] [place] [address] Hematology/Oncology 08/26/22 Distribution Systems Superintendent Relationship Specialty Start Date End Date Wade Jones Sr., DO [address] [facility] [place] [address] PCP - General Family Medicine 08/26/22 Chinyere Candelaria MD [address] [facility] [phone] Critical Care 08/26/22 Jennifer Garber MD [address] [place] [facility] [place] [place] [address] Hematology/Oncology 08/26/22 Distribution Systems Superintendent Relationship Specialty Start Date End Date Wade Jones Sr., DO [address] [facility] [place] [address] PCP - General Family Medicine 08/26/22 Chinyere Candelaria MD [address] [place] [phone] Critical Care 08/26/22 Jennifer Garber MD [address] [place] [facility] [place] [address] Hematology/Oncology 08/26/22 Distribution Systems Superintendent Relationship Specialty Start Date End Date Wade Jones Sr., DO [address] [facility] [place] [address] PCP - General Family Medicine 08/26/22 Chinyere Candelaria MD [address] [place] [phone] Critical Care 08/26/22 Jennifer Garber MD [address] [place] [address] Hematology/Oncology 08/26/22 Distribution Systems Superintendent Relationship Specialty Start Date End Date Wade Jones Sr., DO [address] [place] [address] PCP - General Family Medicine 08/26/22 Chinyere Candelaria MD [address] [place] [phone] Critical Care 08/26/22 Jennifer Garber MD [facility] [place] [address] Hematology/Oncology 08/26/22 Distribution Systems Superintendent Relationship Specialty Start Date End Date Wade Jones Sr., DO [address] [place] [address] PCP - General Family Medicine 08/26/22 Chinyere Candelaria MD [address] [place] [phone] Critical Care 08/26/22 Jennifer Garber MD [address] [place] [facility] [place] [address] Hematology/Oncology 08/26/22 Distribution Systems Superintendent Relationship Specialty Start Date End Date Wade Jones Sr., DO [address] [place] [address] PCP - General Family Medicine 08/26/22 Chinyere Candelaria MD [address] [place] [phone] Critical Care 08/26/22 Jennifer Garber MD [address] [place] [address] Hematology/Oncology 08/26/22 Distribution Systems Superintendent Relationship Specialty Start Date End Date Wade Jones Sr., DO PCP - General Family Medicine 08/26/22 Chinyere Candelaria MD [address] [place] [phone] Critical Care 08/26/22 Jennifer Garber MD [address] [place] [address] Hematology/Oncology 08/26/22 Distribution Systems Superintendent Relationship Specialty Start Date End Date Wade Jones Sr., DO PCP - General Family Medicine 08/26/22 Chinyere Candelaria MD [address] [place] [phone] Critical Care 08/26/22 Jennifer Garber MD [address] [place] [address] Hematology/Oncology 08/26/22 Distribution Systems Superintendent Relationship Specialty Start Date End Date Wade Jones Sr., DO PCP - General Family Medicine 08/26/22 Chinyere Candelaria MD [address] [place] [phone] Critical Care 08/26/22 Jennifer Garber MD [address] [place], [place] [address] Hematology/Oncology 08/26/22 Distribution Systems Superintendent Relationship Specialty Start Date End Date Wade Jones Sr., DO PCP - General Family Medicine 08/26/22 Chinyere Candelaria MD [address] [place] [phone] Critical Care 08/26/22 Jennifer Garber MD [address] [place] [address] Hematology/Oncology 08/26/22 Team Status: Inactive Member Role Status Dates Jack Canchola DO Attending Provider Active S tart: March 12, 2024 End: March 12, 2024 Distribution Systems Superintendent Relationship Specialty Start Date End Date Wade Jones Sr., DO PCP - General Family Medicine 08/26/22 Chinyere Candelaria MD [address] [place] [phone] Critical Care 08/26/22 Jennifer Garber MD [address] [place] [address] Hematology/Oncology 08/26/[address] [facility] [place] [address] Registered Dietitian Nutrition 04/18/24 Distribution Systems Superintendent Relationship Specialty Start Date End Date Wade Jones Sr., DO PCP - General Family Medicine 08/26/22 Chinyere Candelaria MD [address] [place] [phone] Critical Care 08/26/22 Jennifer Garber MD [address] [place] [address] Hematology/Oncology 08/26/[address] [facility] [place] [address] Registered Dietitian Nutrition 04/18/24 Distribution Systems Superintendent Relationship Specialty Start Date End Date Wade Jones Sr., DO PCP - General Family Medicine 08/26/22 Chinyere Candelaria MD [address] [place] [phone] Critical Care 08/26/22 Jennifer Garber MD [address] [place] [address] Hematology/Oncology 08/26/[address] [facility] [place] [address] Registered Dietitian Nutrition 04/18/24 Distribution Systems Superintendent Relationship Specialty Start Date End Date Wade Jones Sr., DO PCP - General Family Medicine 08/26/22 Chinyere Candelaria MD [address] [place] [phone] Critical Care 08/26/22 Jennifer Garber MD [address] [place] [address] Hematology/Oncology 08/26/22 Distribution Systems Superintendent Relationship Specialty Start Date End Date Yadira Winslow MD [address] [facility] [address] [place] [address] PCP - ACO Reach 03/16/24 Distribution Systems Superintendent Relationship Specialty Start Date End Date Yadira Winslow MD [address] [facility] [address] [place] [address] PCP - ACO Reach 03/16/24 Distribution Systems Superintendent Relationship Specialty Start Date End Date Wade Jones Sr., DO PCP - General Family Medicine 08/26/22 Chinyere Candelaria MD [address] [place] [phone] Critical Care 08/26/22 Jennifer Garber MD [address] [place] [address] Hematology/Oncology 08/26/[address] [facility] [place] [address] Registered Dietitian Nutrition 04/18/24 Distribution Systems Superintendent Relationship Specialty Start Date End Date Yadira Winslow MD [address] [facility] [address] [place] [address] PCP - General Family Medicine 07/27/24 Chinyere Candelaria MD [address] [place] [address] Critical Care 08/26/22 Jennifer Garber MD [address] [place] [address] Hematology/Oncology 08/26/[address] [facility] [place] [address] Registered Dietitian Nutrition 04/18/24 Distribution Systems Superintendent Relationship Specialty Start Date End Date Yadira Winslow MD [address] [facility] [address] [place] [address] PCP - ACO Reach 03/16/24 Distribution Systems Superintendent Relationship Specialty Start Date End Date Yadira Winslow MD [address] [facility] [address] [place] [address] PCP - General Family Medicine 07/27/24 Chinyere Candelaria MD [address] [place] [address] Critical Care 08/26/22 Jennifer Garber MD [address] [place] [address] Hematology/Oncology 08/26/[address] [place] [address] Registered Dietitian Nutrition 04/18/24 Distribution Systems Superintendent Relationship Specialty Start Date End Date Yadira Winslow MD [address] [facility] [address] [place] [address] PCP - General Family Medicine 07/27/24 Chinyere Candelaria MD [address] [place] [phone] Critical Care 08/26/22 Jennifer Garber MD [address] [place] [address] Hematology/Oncology 08/26/[address] [facility] [place] [address] Registered Dietitian Nutrition 04/18/24 Distribution Systems Superintendent Relationship Specialty Start Date End Date Yadira Winslow MD [address] [place] [address] [place] [address] PCP - General Family Medicine 07/27/24 Chinyere Candelaria MD [address] [place] [phone] Critical Care 08/26/22 Jennifer Garber MD [address] [place] [address] Hematology/Oncology 08/26/[address] [place] [address] Registered Dietitian Nutrition 04/18/24 Distribution Systems Superintendent Relationship Specialty Start Date End Date Yadira Winslow MD [address] [facility] [address] [place] [address] PCP - General Family Medicine 07/27/24 Chinyere Candelaria MD [address] [place] [phone] Critical Care 08/26/22 Jennifer Garber MD [address] [place] [address] Hematology/Oncology 08/26/[address] [place] [address] Registered Dietitian Nutrition 04/18/24 Distribution Systems Superintendent Relationship Specialty Start Date End Date Yadira Winslow MD [address] [facility] [address] [place] [address] PCP - [facility] Medicine 07/27/24 Chinyere Candelaria MD [address] [place] [address] Critical Care 08/26/22 Jennifer Garber MD [address] [place] [address] Hematology/Oncology 08/26/[address] [facility] [place] [address] Registered Dietitian Nutrition 04/18/24 Distribution Systems Superintendent Relationship Specialty Start Date End Date Yadira Winslow MD [address] [facility] [address] [place] [address] PCP - General Family Medicine 07/27/24 Chinyere Candelaria MD [address] [place] [phone] Critical Care 08/26/22 Jennifer Garber MD [address] [place] [address] Hematology/Oncology 08/26/[address] [facility] [place] [address] Registered Dietitian Nutrition 04/18/24 Distribution Systems Superintendent Relationship Specialty Start Date End Date Yadira Winslow MD [address] [place] [address] PCP - General Family Medicine 07/27/24 Chinyere Candelaria MD [address] [place] [phone] Critical Care 08/26/22 Jennifer Garber MD [address] [place] [address] Hematology/Oncology 08/26/[address] [facility] [place] [address] Registered Dietitian Nutrition 04/18/24 Distribution Systems Superintendent Relationship Specialty Start Date End Date Yadira Winslow MD [address] [facility] [address] [place] [address] PCP - General Family Medicine 07/27/24 Chinyere Candelaria MD [address] [place] [address] Critical Care 08/26/22 Jennifer Garber MD [address] [place] [address] Hematology/Oncology 08/26/[address] [place] [address] [place] [address] Registered Dietitian Nutrition 04/18/24 Goals (unrecognized section and content) Goals may be documented in a n alternate section FOR RECORDS PERTAINING TO PATIENTS WHO ARE [...] BE BASED ON THE PRIMARY CLINICAL RECORDS. [employer] provides no warranty or guarantee of the accuracy or completeness of information in this document.
== END 2024-10-15 14:26 | disposition home or self-care (01) ==
LOC: PETCT 14:25
PROVIDERS: PCP Nurse Practitioner Family; Visit Provider Internal Medicine Hematology & Oncology
DX: R91.1 Solitary pulmonary nodule (principal); D64.9 Anemia, unspecified; C34.12 Malignant neoplasm of upper lobe, left bronchus or lung; D75.839 Thrombocytosis, unspecified; D72.829 Elevated white blood cell count, unspecified; D63.8 Anemia in other chronic diseases classified elsewhere; Z79.01 Long term (current) use of anticoagulants; C79.72 Secondary malignant neoplasm of left adrenal gland; I50.20 Unspecified systolic (congestive) heart failure; I11.0 Hypertensive heart disease with heart failure
CPT/HCPCS: 78815; A9552

== ENCOUNTER 2024-11-06 10:21 | Outpatient (RCR) | payer MEDICARE, OTHER, SELFPAY ==
[2024-10-12 09:55] VITALS: BP 129/82; PULSE 87; TEMP 36.4; O2SAT 95
[2024-10-12 10:17] LABS: Hematocrit 35.4 % (42.0-54.0); Hemoglobin 12.3 g/dL (14.0-18.0); Immature Granulocytes Abs Auto 0.02 10^3/uL (0.00-0.03); Immature Granulocytes Pct Auto 0.3 % (0.0-0.5); Lymphocytes Absolute Auto 1.3 10^3/uL (1.2-3.8); Mean Corpuscular HGB Conc 34.7 g/dL (29.9-35.2); Mean Corpuscular Hemoglobin 30.8 pg (25.9-34.0); Mean Corpuscular Volume 88.7 fL (80.0-94.0); Platelet Count 233 10^3/uL (150-450); Red Blood Count 3.99 10^6/uL (4.70-6.10); White Blood Count 5.9 10^3/uL (4.0-11.0)
[2024-10-12] MEDS: 0.9 % SODIUM CHLORIDE 250 ML 750 ML IV (10:30)
[2024-10-12 10:36] LABS: Alanine Aminotransferase 37 U/L (16-63); Albumin Globulin Ratio 0.7; Albumin Level 3.5 g/dL (3.4-5.0); Alkaline Phosphatase 144 U/L (46-116); Anion Gap 12.5; Aspartate Amino Transferase 39 U/L (15-37); Blood Urea Nitrogen 14.0 mg/dL (7.0-18.0); Calcium 9.1 mg/dL (8.5-10.1); Carbon Dioxide 26.7 mmol/L (21.0-32.0); Chloride 95 mmol/L (98-107); Estimated GFR (African America >60 (>=60 mL/min/1.73m^2); Estimated GFR (Non-African Ame >60 (>=60 mL/min/1.73m^2); Globulin 4.9 g/dL; Glucose 100 mg/dL (74-106); Magnesium 1.7 mg/dL (1.8-2.4); Potassium 5.2 mmol/L (3.5-5.1); Sodium 129 mmol/L (136-145); TSH W/ REFLEX FT4 1.380 uIU/mL (0.358-3.740); Total Protein 8.4 g/dL (6.4-8.2)
[2024-11-06 10:56] LABS: Hematocrit 31.9 % (42.0-54.0); Hemoglobin 11.5 g/dL (14.0-18.0); Immature Granulocytes Abs Auto 0.04 10^3/uL (0.00-0.03); Immature Granulocytes Pct Auto 0.4 % (0.0-0.5); Lymphocytes Absolute Auto 1.1 10^3/uL (1.2-3.8); Mean Corpuscular HGB Conc 36.1 g/dL (29.9-35.2); Mean Corpuscular Hemoglobin 31.9 pg (25.9-34.0); Mean Corpuscular Volume 88.4 fL (80.0-94.0); Platelet Count 252 10^3/uL (150-450); Red Blood Count 3.61 10^6/uL (4.70-6.10); White Blood Count 10.1 10^3/uL (4.0-11.0)
[2024-11-06] MEDS: 0.9 % SODIUM CHLORIDE 250 ML 10 ML IV (11:17)
[2024-11-06 11:24] LABS: Alanine Aminotransferase 36 U/L (16-63); Albumin Globulin Ratio 0.8; Albumin Level 3.6 g/dL (3.4-5.0); Alkaline Phosphatase 107 U/L (46-116); Anion Gap 12.6; Aspartate Amino Transferase 42 U/L (15-37); Blood Urea Nitrogen 10.0 mg/dL (7.0-18.0); Calcium 9.2 mg/dL (8.5-10.1); Carbon Dioxide 23.7 mmol/L (21.0-32.0); Chloride 91 mmol/L (98-107); Estimated GFR (African America >60 (>=60 mL/min/1.73m^2); Estimated GFR (Non-African Ame >60 (>=60 mL/min/1.73m^2); Globulin 4.7 g/dL; Glucose 106 mg/dL (74-106); Magnesium 1.7 mg/dL (1.8-2.4); Potassium 5.3 mmol/L (3.5-5.1); TSH W/ REFLEX FT4 1.206 uIU/mL (0.358-3.740); Total Protein 8.3 g/dL (6.4-8.2)
[2024-11-06 11:26] LABS: Sodium 122 mmol/L (136-145)
== END 2024-11-06 23:59 | disposition home or self-care (01) ==
LOC: HEMC 10:21
PROVIDERS: PCP Nurse Practitioner Family; Visit Provider Internal Medicine Hematology & Oncology
DX: Z51.12 Encounter for antineoplastic immunotherapy (principal); C34.12 Malignant neoplasm of upper lobe, left bronchus or lung; D75.839 Thrombocytosis, unspecified; D63.8 Anemia in other chronic diseases classified elsewhere; Z79.01 Long term (current) use of anticoagulants; C79.72 Secondary malignant neoplasm of left adrenal gland; Z86.711 Personal history of pulmonary embolism; I11.0 Hypertensive heart disease with heart failure; I50.20 Unspecified systolic (congestive) heart failure; Z63.4 Disappearance and death of family member; F17.210 Nicotine dependence, cigarettes, uncomplicated; F10.90 Alcohol use, unspecified, uncomplicated; E87.8 Other disorders of electrolyte and fluid balance, not elsewhere classified
CPT/HCPCS: 36415; 80053; 83735; 84443; 85025; 96413; G0463; J9271

== ENCOUNTER 2024-11-07 01:47 | Outpatient (RCR) | payer MEDICARE, OTHER, SELFPAY | END 2024-12-07 23:59 | disposition home or self-care (01) | LOC: MM 01:47 | PROVIDERS: PCP Nurse Practitioner Family; Visit Provider Internal Medicine | DX: Z51.81 Encounter for therapeutic drug level monitoring (principal); Z79.01 Long term (current) use of anticoagulants; I82.409 Acute embolism and thrombosis of unspecified deep veins of unspecified lower extremity ==

== ENCOUNTER 2024-11-27 09:49 | Outpatient (RCR) | payer MEDICARE, OTHER, SELFPAY ==
[2024-11-27 09:55] VITALS: BP 108/69; PULSE 94; TEMP 36.2; O2SAT 94
[2024-11-27] MEDS: 0.9 % SODIUM CHLORIDE 250 ML 10 ML IV (10:30)
[2024-11-27 10:36] LABS: Hematocrit 28.8 % (42.0-54.0); Hemoglobin 10.3 g/dL (14.0-18.0); Mean Corpuscular HGB Conc 35.8 g/dL (29.9-35.2); Mean Corpuscular Hemoglobin 32.3 pg (25.9-34.0); Mean Corpuscular Volume 90.3 fL (80.0-94.0); Platelet Count 198 10^3/uL (150-450); Red Blood Count 3.19 10^6/uL (4.70-6.10); White Blood Count 9.1 10^3/uL (4.0-11.0)
[2024-11-27 10:50] LABS: Alanine Aminotransferase 34 U/L (16-63); Albumin Globulin Ratio 0.8; Albumin Level 3.4 g/dL (3.4-5.0); Alkaline Phosphatase 103 U/L (46-116); Anion Gap 13.3; Aspartate Amino Transferase 46 U/L (15-37); Blood Urea Nitrogen 14.0 mg/dL (7.0-18.0); Calcium 8.9 mg/dL (8.5-10.1); Carbon Dioxide 25.0 mmol/L (21.0-32.0); Chloride 92 mmol/L (98-107); Estimated GFR (African America >60 (>=60 mL/min/1.73m^2); Estimated GFR (Non-African Ame >60 (>=60 mL/min/1.73m^2); Globulin 4.3 g/dL; Glucose 160 mg/dL (74-106); Potassium 4.3 mmol/L (3.5-5.1); Sodium 126 mmol/L (136-145); Total Protein 7.7 g/dL (6.4-8.2)
[2024-11-27 10:58] LABS: Magnesium 1.6 mg/dL (1.8-2.4); TSH W/ REFLEX FT4 1.356 uIU/mL (0.358-3.740)
[2024-11-27 11:04] LABS: Band Neutrophils Absolute 0.0 10^3/uL (0.0-0.3); Basophils Abs Manual 0.00 10^3/uL (0.00-0.10); Basophils Percent Manual 0.0 % (0.2-2.0); Eosinophils Absolute Manual 0.09 10^3/uL (0.00-0.70); Eosinophils Percent Manual 1.0 % (0.9-7.0); Lymphocytes Absolute Manual 0.45 10^3/uL (1.20-3.80); Lymphocytes Percent Manual 5.0 % (20.5-60.0); Monocytes Absolute Manual 0.72 10^3/uL (0.30-0.80); Monocytes Percent Manual 8.0 % (1.7-12.0); Segmented Neut Absolute Manual 7.82 10^3/uL (1.4-6.5); Segmented Neutrophils % Manual 86.0 (43.0-75.0)
[2024-11-27 12:10] VITALS: BP 110/68; PULSE 78; TEMP 36.6; O2SAT 94
--- NOTE | 2024-11-27 13:27 | PC.NURSE ---
1030: Dr. Garber to chairside for MD visit.
[2024-11-27 13:33] LABS: Iron 78.0 ug/dL (65.0-175.0); Percent Iron Saturation 44.6 %; Total Iron Binding Capacity 175.0 ug/dL (250.0-450.0)
[2024-11-27 14:07] LABS: Ferritin 1644.0 ng/mL (26.0-388.0)
[2024-11-28 04:08] LABS: Vitamin B12 241 pg/mL (232-1245)
== END 2024-12-07 23:59 | disposition home or self-care (01) ==
LOC: HEMC 09:49
PROVIDERS: PCP Nurse Practitioner Family; Visit Provider Internal Medicine Hematology & Oncology
DX: Z51.12 Encounter for antineoplastic immunotherapy (principal); C34.12 Malignant neoplasm of upper lobe, left bronchus or lung; D64.9 Anemia, unspecified; D75.839 Thrombocytosis, unspecified; D72.829 Elevated white blood cell count, unspecified; D63.8 Anemia in other chronic diseases classified elsewhere; Z79.01 Long term (current) use of anticoagulants; Z86.711 Personal history of pulmonary embolism; I50.20 Unspecified systolic (congestive) heart failure; I11.0 Hypertensive heart disease with heart failure; F17.210 Nicotine dependence, cigarettes, uncomplicated; R91.1 Solitary pulmonary nodule; R53.1 Weakness; F10.90 Alcohol use, unspecified, uncomplicated
CPT/HCPCS: 36415; 80053; 82607; 82728; 83540; 83550; 83735; 84443; 85007; 85027; 85652; 86140; 96413; G0463; J9271

== ENCOUNTER 2024-12-08 | Outpatient (RCR) | payer MEDICARE, OTHER, SELFPAY | END 2025-01-06 23:59 | disposition home or self-care (01) | LOC: MM | PROVIDERS: PCP Nurse Practitioner Family; Visit Provider Nurse Practitioner Family | DX: Z51.81 Encounter for therapeutic drug level monitoring (principal); Z79.01 Long term (current) use of anticoagulants ==

== ENCOUNTER 2024-12-20 09:48 | Outpatient (RCR) | payer MEDICARE, OTHER, SELFPAY ==
[2024-12-20 10:00] VITALS: BP 118/76; TEMP 36.2; O2SAT 95
[2024-12-20 10:25] LABS: Hematocrit 29.1 % (42.0-54.0); Hemoglobin 10.0 g/dL (14.0-18.0); Mean Corpuscular HGB Conc 34.4 g/dL (29.9-35.2); Mean Corpuscular Hemoglobin 32.4 pg (25.9-34.0); Mean Corpuscular Volume 94.2 fL (80.0-94.0); Platelet Count 165 10^3/uL (150-450); Red Blood Count 3.09 10^6/uL (4.70-6.10); White Blood Count 8.7 10^3/uL (4.0-11.0)
[2024-12-20 10:41] LABS: Alanine Aminotransferase 46 U/L (16-63); Albumin Globulin Ratio 0.9; Albumin Level 3.8 g/dL (3.4-5.0); Alkaline Phosphatase 116 U/L (46-116); Anion Gap 13.1; Aspartate Amino Transferase 65 U/L (15-37); Blood Urea Nitrogen 15.0 mg/dL (7.0-18.0); Calcium 9.3 mg/dL (8.5-10.1); Carbon Dioxide 25.2 mmol/L (21.0-32.0); Chloride 91 mmol/L (98-107); Estimated GFR (African America >60 (>=60 mL/min/1.73m^2); Estimated GFR (Non-African Ame >60 (>=60 mL/min/1.73m^2); Globulin 4.2 g/dL; Glucose 116 mg/dL (74-106); Potassium 4.3 mmol/L (3.5-5.1); Sodium 125 mmol/L (136-145); Total Protein 8.0 g/dL (6.4-8.2)
[2024-12-20 10:50] LABS: Magnesium 1.9 mg/dL (1.8-2.4); TSH W/ REFLEX FT4 2.057 uIU/mL (0.358-3.740)
[2024-12-20] MEDS: 0.9 % SODIUM CHLORIDE 250 ML 10 ML IV (11:02)
[2024-12-20 11:05] LABS: Basophils Abs Manual 0.17 10^3/uL (0.00-0.10); Basophils Percent Manual 2.0 % (0.2-2.0); Eosinophils Absolute Manual 0.08 10^3/uL (0.00-0.70); Eosinophils Percent Manual 1.0 % (0.9-7.0); Lymphocytes Absolute Manual 0.60 10^3/uL (1.20-3.80); Lymphocytes Percent Manual 7.0 % (20.5-60.0); Monocytes Absolute Manual 0.95 10^3/uL (0.30-0.80); Monocytes Percent Manual 11.0 % (1.7-12.0); Segmented Neut Absolute Manual 6.87 10^3/uL (1.4-6.5); Segmented Neutrophils % Manual 79.0 (43.0-75.0)
--- NOTE | 2024-12-20 12:15 | PC.NURSE ---
1030: Lab results reviewed with pharmacist Mele. Ok to proceed with infusion.
== END 2025-01-06 23:59 | disposition home or self-care (01) ==
LOC: HEMC 09:48
PROVIDERS: PCP Nurse Practitioner Family; Visit Provider Internal Medicine Hematology & Oncology
DX: Z51.12 Encounter for antineoplastic immunotherapy (principal); C34.12 Malignant neoplasm of upper lobe, left bronchus or lung; C79.72 Secondary malignant neoplasm of left adrenal gland; Z79.01 Long term (current) use of anticoagulants; I11.0 Hypertensive heart disease with heart failure; I50.20 Unspecified systolic (congestive) heart failure; D63.8 Anemia in other chronic diseases classified elsewhere; D64.9 Anemia, unspecified; R91.1 Solitary pulmonary nodule; D75.839 Thrombocytosis, unspecified; D72.829 Elevated white blood cell count, unspecified
CPT/HCPCS: 36415; 80053; 83735; 84443; 85007; 85027; 96413; J9271

== ENCOUNTER 2025-01-21 14:17 | Outpatient (OUT) | payer MEDICARE, OTHER, SELFPAY ==
--- NOTE | 2025-01-21 17:04 | PE_ITS ---
The [address] [address] Patient Name: BOBBY GRAJEDA MRN: [id number] date: 1960 Sex: M Assigned Patient Location: PETCT Current Patient Location: Accession/Order Number: [id number] Exam Date: 01/21/2025 16:04 Report Date: 01/22/2025 09:57 At the request of: ROZINA PONCE MD Procedure: PET skull to mid thigh PET/CT WITH FUSION COMPARISON: 10/15/2024 CLINICAL DATA: Follow-up lung cancer. Left lower lobe nodule. Following the intravenous administration of 7.17 mCi of FDG, SPECT imaging in 3 planes was performed from the level the orbits through the groin. The patient's blood glucose level at the time of injection was 133 mg/dL. Spiral unenhanced CT was also performed for anatomic localization. The PET and CT images were fused. This CT exam was performed using one or more following dose reduction techniques: Automated exposure control, adjustment of the mA and/or kV according to patient size, or use of iterative reconstruction technique. NECK: No enlarged or hypermetabolic cervical lymph nodes are seen. There is some physiologic activity. Carotid artery plaque is noted. CHEST: There is similar irregular soft tissue density with cavitation and associated calcifications at the left upper lobe. There is no significant associated FDG uptake and this is may be scarring. The soft tissue nodule at the posterior lateral left costophrenic angle is slightly smaller measuring 2 cm versus 2.3 cm. It shows no associated increased FDG uptake. No new nodularity or abnormal pulmonary FDG uptake is identified. There is still a short segment of increased FDG uptake at the mid to distal thoracic esophagus. Standard uptake value at that site has increased from 6.2 to 8.0. There is obstructive lung disease with scarring at the lung apices. Bilateral gynecomastia is visualized. ABDOMEN/PELVIS: There are no FDG avid hepatic lesions. An irregular, lobulated left adrenal lesion is again seen measuring approximately 4.6 cm in size. There is continued associated peripheral increased FDG uptake. The FDG avid area is slightly larger with increase in SUV from 13.5 to 15.0. There is a also a new focus of increased uptake along the medial aspect of the adrenal mass with SUV of 16.5. A necrotic lesion at the right iliac fossa is again seen measuring approximately 5.5 cm in size. There is still peripheral FDG uptake with standard uptake values slightly less than on the prior (max 12.3). There is no developing FDG avid abdominal or pelvic lymphadenopathy. There is physiologic activity involving the urinary tract and to a lesser extent bowel. PET/PET skull to mid thigh IMPRESSION: NON- FDG AVID LEFT LOWER LOBE NODULE AND PARENCHYMAL CHANGES AT THE LEFT UPPER LOBE THAT MAY BE SCARRING. CONTINUED NONSPECIFIC SEGMENT OF INCREASED FDG UPTAKE AT THE MID TO DISTAL THORACIC ESOPHAGUS. CORRELATION IS RECOMMENDED. LEFT ADRENAL METASTASIS WITH SLIGHT INTERVAL INCREASE IN FDG UPTAKE. RIGHT ILIAC FOSSA NECROTIC LESION WITH DECREASING MURAL HYPERMETABOLISM. NO DEVELOPING ABNORMAL LYMPHADENOPATHY. Impression dictated by: Kasie Hayes M.D. 01/22/2025 9:57 AM Dictation Location: [place] [address] Electronically authenticated by: [id number] Y Date: 01/22/2025 09:57
== END 2025-01-21 14:18 | disposition home or self-care (01) ==
LOC: PETCT 14:17
PROVIDERS: PCP Nurse Practitioner Family; Visit Provider Internal Medicine Hematology & Oncology
DX: R91.1 Solitary pulmonary nodule (principal); D64.9 Anemia, unspecified; C34.12 Malignant neoplasm of upper lobe, left bronchus or lung; D75.839 Thrombocytosis, unspecified; D72.829 Elevated white blood cell count, unspecified; D63.8 Anemia in other chronic diseases classified elsewhere; Z79.01 Long term (current) use of anticoagulants; C79.72 Secondary malignant neoplasm of left adrenal gland; Z86.711 Personal history of pulmonary embolism; I50.20 Unspecified systolic (congestive) heart failure; I11.0 Hypertensive heart disease with heart failure
CPT/HCPCS: 78815; A9552

== ENCOUNTER 2025-02-05 09:53 | Outpatient (RCR) | payer MEDICARE, OTHER, SELFPAY ==
[2025-01-10 11:20] VITALS: BP 125/83; PULSE 93; TEMP 37.1; O2SAT 96
[2025-01-10 12:03] LABS: Hematocrit 32.3 % (42.0-54.0); Hemoglobin 11.0 g/dL (14.0-18.0); Immature Granulocytes Abs Auto 0.04 10^3/uL (0.00-0.03); Immature Granulocytes Pct Auto 0.5 % (0.0-0.5); Lymphocytes Absolute Auto 0.8 10^3/uL (1.2-3.8); Mean Corpuscular HGB Conc 34.1 g/dL (29.9-35.2); Mean Corpuscular Hemoglobin 32.5 pg (25.9-34.0); Mean Corpuscular Volume 95.6 fL (80.0-94.0); Platelet Count 167 10^3/uL (150-450); Red Blood Count 3.38 10^6/uL (4.70-6.10); White Blood Count 8.2 10^3/uL (4.0-11.0)
[2025-01-10 12:20] LABS: Alanine Aminotransferase 48 U/L (16-63); Albumin Globulin Ratio 0.8; Albumin Level 3.5 g/dL (3.4-5.0); Alkaline Phosphatase 121 U/L (46-116); Anion Gap 13.4; Aspartate Amino Transferase 55 U/L (15-37); Blood Urea Nitrogen 11.0 mg/dL (7.0-18.0); Calcium 9.6 mg/dL (8.5-10.1); Carbon Dioxide 26.8 mmol/L (21.0-32.0); Chloride 95 mmol/L (98-107); Estimated GFR (African America >60 (>=60 mL/min/1.73m^2); Estimated GFR (Non-African Ame >60 (>=60 mL/min/1.73m^2); Globulin 4.5 g/dL; Glucose 119 mg/dL (74-106); Magnesium 1.8 mg/dL (1.8-2.4); Potassium 5.2 mmol/L (3.5-5.1); Sodium 130 mmol/L (136-145); TSH W/ REFLEX FT4 1.140 uIU/mL (0.358-3.740); Total Protein 8.0 g/dL (6.4-8.2)
[2025-01-10 12:26] LABS: Iron 51.0 ug/dL (65.0-175.0); Percent Iron Saturation 25.2 %; Total Iron Binding Capacity 202.0 ug/dL (250.0-450.0)
--- NOTE | 2025-01-10 12:53 | PC.NURSE ---
1249: IV Keytruda initiated at this time.
[2025-01-10 13:02] LABS: Ferritin 1587.0 ng/mL (26.0-388.0)
[2025-01-11 04:12] LABS: Vitamin B12 228 pg/mL (232-1245)
[2025-02-05 10:12] VITALS: BP 110/72; PULSE 84; TEMP 37; O2SAT 93
[2025-02-05 10:12] LABS: Hematocrit 31.7 % (42.0-54.0); Hemoglobin 10.8 g/dL (14.0-18.0); Mean Corpuscular HGB Conc 34.1 g/dL (29.9-35.2); Mean Corpuscular Hemoglobin 32.3 pg (25.9-34.0); Mean Corpuscular Volume 94.9 fL (80.0-94.0); Platelet Count 161 10^3/uL (150-450); Red Blood Count 3.34 10^6/uL (4.70-6.10); White Blood Count 8.1 10^3/uL (4.0-11.0)
[2025-02-05] MEDS: 0.9 % SODIUM CHLORIDE 250 ML 10 ML IV (10:15)
[2025-02-05 10:25] LABS: Alanine Aminotransferase 39 U/L (16-63); Albumin Globulin Ratio 0.8; Albumin Level 3.4 g/dL (3.4-5.0); Alkaline Phosphatase 122 U/L (46-116); Anion Gap 12.8; Aspartate Amino Transferase 52 U/L (15-37); Blood Urea Nitrogen 8.0 mg/dL (7.0-18.0); Calcium 9.2 mg/dL (8.5-10.1); Carbon Dioxide 27.6 mmol/L (21.0-32.0); Chloride 96 mmol/L (98-107); Estimated GFR (African America >60 (>=60 mL/min/1.73m^2); Estimated GFR (Non-African Ame >60 (>=60 mL/min/1.73m^2); Globulin 4.2 g/dL; Glucose 104 mg/dL (74-106); Potassium 4.4 mmol/L (3.5-5.1); Sodium 132 mmol/L (136-145); Total Protein 7.6 g/dL (6.4-8.2)
[2025-02-05 10:34] LABS: Magnesium 2.1 mg/dL (1.8-2.4); TSH W/ REFLEX FT4 1.179 uIU/mL (0.358-3.740)
[2025-02-05 10:39] LABS: Basophils Abs Manual 0.00 10^3/uL (0.00-0.10); Basophils Percent Manual 0.0 % (0.2-2.0); Eosinophils Absolute Manual 0.40 10^3/uL (0.00-0.70); Eosinophils Percent Manual 5.0 % (0.9-7.0); Lymphocytes Absolute Manual 0.64 10^3/uL (1.20-3.80); Lymphocytes Percent Manual 8.0 % (20.5-60.0); Monocytes Absolute Manual 0.72 10^3/uL (0.30-0.80); Monocytes Percent Manual 9.0 % (1.7-12.0); Segmented Neut Absolute Manual 6.31 10^3/uL (1.4-6.5); Segmented Neutrophils % Manual 78.0 (43.0-75.0)
== END 2025-02-06 23:59 | disposition home or self-care (01) ==
LOC: HEMC 09:53
PROVIDERS: PCP Nurse Practitioner Family; Visit Provider Internal Medicine Hematology & Oncology
DX: Z51.11 Encounter for antineoplastic chemotherapy (principal); C34.12 Malignant neoplasm of upper lobe, left bronchus or lung; C79.72 Secondary malignant neoplasm of left adrenal gland; R91.1 Solitary pulmonary nodule; D64.9 Anemia, unspecified; D75.839 Thrombocytosis, unspecified; D72.829 Elevated white blood cell count, unspecified; D63.8 Anemia in other chronic diseases classified elsewhere; Z79.01 Long term (current) use of anticoagulants; Z86.711 Personal history of pulmonary embolism; I50.20 Unspecified systolic (congestive) heart failure; I11.0 Hypertensive heart disease with heart failure
CPT/HCPCS: 36415; 80053; 82607; 82728; 83540; 83550; 83735; 84443; 85007; 85025; 85027; 85652; 86140; 96413; G0463; J9271